=== PATIENT | female | born 1990 | race African-American/Black ===

== ENCOUNTER 2024-06-01 19:03 | Emergency (ER) | payer OTHER, SELFPAY ==
--- NOTE | ~2024-06-01 | CT_ITS ---
EXAMINATION: CT brain wo con DATE: 06/01/2024 22:29 INDICATION: acute headache . TECHNIQUE: Computed tomography (CT) of the head was performed without intravenous contrast. The mA wa s adjusted according to patient size. Iterative reconstruction technique was employed. The dose-lengt h product was 529.67 mGy-cm. COMPARISON: None. FINDINGS: No acute intracranial hemorrhage or extra-axial fluid collection. No hydrocephalus, mass, or herniation. No acute ischemic infarct. Unremarkable dural venous sinus attenuation. No acute osseous abnormality. The aerated spaces are clear. Partially into sella. IMPRESSION: No acute intracranial process. Reviewed, dictated and finalized at location K.
--- NOTE | ~2024-06-01 | US_ITS ---
EXAMINATION: US pelvic complete DATE: 06/01/2024 21:24 INDICATION: vaginal bleeding, confirmed , cramping TECHNIQUE: Multiple transabdominal sonographic images of the pelvis were obtained. Patient declined t ransvaginal imaging. COMPARISON: None. FINDINGS: Uterus: 8.0 x 4.4 x 5.4 cm. Endometrial complex measures 7 mm. Right Ovary: 3.0 x 1.9 x 2.2 cm. Vascular flow is present. No adnexal mass Left Ovary: 2.6 x 0.9 x 1.7 cm. Vascular flow is present. No adnexal mass. There is no free fluid in the pelvis. IMPRESSION: Normal transabdominal pelvic sonogram findings. No intrauterine gestational sac identified. In the setting of a positive test, this represe nts a of unknown location. No sonographic evidence of ectopic . Recommend close clinical and sonographic follow-up as clinically indicated. Reviewed, dictated and finalized at location K. IMPRESSION: Normal transabdominal pelvic sonogram findings. No intrauterine gestational sac identified. In the setting of a positive pregna ncy test, this represents a of unknown location. No sonographic evidence of ectopic . Recommend close clinical and sonographic follow-up as clinically indicated.
[2024-06-01 19:16] VITALS: BP 127/94; PULSE 84; RESP 16; TEMP 36.4; O2SAT 100
[2024-06-01] MEDS: SODIUM CHLORIDE 0.9% IV 1,000 ML 999 ML IV CONT (20:10)
[2024-06-01] MEDS: METOCLOPRAMIDE HCL INJ 10 MG/2 ML VIAL IV PUSH (20:11)
[2024-06-01] MEDS: ONDANSETRON INJ 4 MG/2 ML VIAL IV PUSH (20:11)
[2024-06-01] MEDS: diphenhydrAMINE HCl INJ 50 MG/ML VIAL 25 MG IV PUSH ×2 (20:11→22:38)
[2024-06-01 20:12] LABS: BEDSIDEPREGUCG Positive (Negative)
[2024-06-01 20:16] LABS: Basophils Absolute Auto 0.1 K/mm3 (0.0-0.1); Basophils Percent Auto 0.9 % (0.2-1.2); Eosinophils Absolute Auto 0.4 K/mm3 (0-0.3); Eosinophils Percent Auto 5.6 % (0-4.4); Hematocrit 34.1 % (37.0-47.0); Hemoglobin 10.8 g/dL (12.0-15.0); Immature Granulocyte Absolute 0.03 K/mm3 (0.00-0.031); Immature Granulocyte Percent A 0.5 % (0-0.5); Lymphocytes Absolute Auto 1.59 K/mm3 (0.9-3.2); Mean Corpuscular HGB Conc 31.7 g/dl (32-36); Mean Corpuscular Hemoglobin 24.3 pg (26-34); Mean Corpuscular Volume 76.6 fl (80-100); Mean Platelet Volume 9.3 fl (7.4-10.4); Monocytes Absolute Auto 0.7 K/mm3 (0.1-0.6); Monocytes Percent Auto 10.4 % (2.6-8.5); Neutrophils Absolute Auto 3.9 K/mm3 (1.3-6.7); Neutrophils Percent Auto 58.6 % (45.5-73.1); Platelet Count Result 401 k/mm3 (150-375); Red Blood Count 4.45 M/mm3 (4.2-5.4); Red Cell Distribution Width 18.6 % (11.5-14.5); White Blood Count 6.6 K/mm3 (4.5-10.0)
[2024-06-01 20:24] LABS: Alanine Aminotransferase 9 U/L (6-35); Albumin Level 3.9 g/dL (3.5-5.1); Alkaline Phosphatase 57 U/L (38-126); Anion Gap 6 mmol/L (4-12); Aspartate Amino Transferase 16 U/L (14-36); Bilirubin,Total 0.3 mg/dL (0.2-1.3); Blood Urea Nitrogen 11 mg/dL (7-17); Calcium 9.1 mg/dL (8.4-10.2); Carbon Dioxide 27 mmol/L (22-30); Chloride 104 mmol/L (98-107); Estimated CRCL calculation 105 ml/min; Estimated Glomerular Filt Rate > 60; Glucose 92 mg/dL (65-110); Potassium 3.3 mmol/L (3.4-5.0); Sodium 137 mmol/L (137-145)
[2024-06-01 20:25] LABS: INR 0.9
[2024-06-01 20:26] LABS: Partial Thromboplastin Time 30.5 Seconds (22.3-36.8)
[2024-06-01 20:41] LABS: Beta HCG Quantitative 28.38 mIU/ML
--- NOTE | 2024-06-01 20:51 | ED.HA ---
HPI - Headache General Chief Complaint: Headache Stated Complaint: vaginal bleeding, possible miscarriage, headache Time Seen by Provider: 06/01/24 19:40 History of Present Illness HPI Narrative: Patient is a 34-year-old female presents to the ER with a headache and reports of positive test with abdominal cramping and vaginal bleeding. She reports she has seen her linux kernel developer who did the bedside test and confirmed her . She reports on Thursday she started experiencing abdominal cramping and bleeding. Patient reports she has been taking Advil for the last 24 hours to treat her headache. She reports she has not had any ultrasounds with this . Patient denies any chest pain, shortness a breath, or other signs of illness. Related Data Allergies Allergy/AdvReac Type Severity Reaction Status Date / Time acetaminophen [From Vicodin] Allergy Hives Verified 06/01/24 19:06 amoxicillin [From Augmentin] Allergy Hives Verified 06/01/24 19:05 clavulanic acid Allergy Hives Verified 06/01/24 19:05 [From Augmentin] hydrocodone [From Vicodin] Allergy Hives Verified 06/01/24 19:06 Review of Systems Review of Systems: All systems reviewed & are unremarkable except as noted in HPI and below Exam Narrative: GENERAL: Well appearing, well-nourished, non-toxic, in no acute distress. HEAD: Normocephalic, atraumatic. NECK: Supple. No adenopathy, no masses. RESPIRATORY: Airway patent, respirations nonlabored. Clear to auscultation bilaterally, no rales, rhonchi, wheezing. CARDIOVASCULAR: Regular rate and rhythm without murmurs, rubs, or gallops. Peripheral pulses 2+ and equal bilaterally. ABDOMINAL: Soft, tender in bilateral lower extremities, nondistended, no hepatosplenomegaly. Normoactive BS. MUSCULOSKELETAL: Moves all extremities. Strength/ROM intact without gross deformities. SKIN: Warm, dry, normal color. No rashes. NEURO: A&O X3. Speech clear. Cranial nerves II-XII grossly intact. Steady gait. No ataxic movements. PSYCHIATRIC: Appropriate mood and affect. Normal interaction. Course Vital Signs Vital signs: Vital Signs Temperature 36.4 C 06/01/24 19:16 Pulse Rate 84 06/01/24 19:16 Respiratory Rate 16 06/01/24 19:16 Blood Pressure 127/94 H 06/01/24 19:16 Pulse Oximetry 100 06/01/24 19:16 Oxygen Delivery Room Air 06/01/24 19:16 Temperature 36.4 C 06/01/24 19:16 Pulse Rate 98 06/02/24 01:03 Respiratory Rate 17 06/02/24 01:03 Blood Pressure 114/70 06/02/24 01:03 Pulse Oximetry 100 06/02/24 01:03 Oxygen Delivery Room Air 06/01/24 19:16 MDM - Headache MDM Narrative Medical decision making narrative: Patient is a 34-year-old female presents to the ER with a headache and reports of positive test with abdominal cramping and vaginal bleeding. She reports she has seen her linux kernel developer who did the bedside test and confirmed her . She reports on Thursday she started experiencing abdominal cramping and bleeding. Patient reports she has been taking Advil for the last 24 hours to treat her headache. She reports she has not had any ultrasounds with this . Patient denies any chest pain, shortness a breath, or other signs of illness. Patient's physical exam is unremarkable. 2199-patient's ultrasound revealed normal transabdominal pelvic sonogram findings.No intrauterine gestational sac identified. In the setting of a positive test, this represents a of unknown location. No sonographic evidence of ectopic . Patient made aware of the results. She endorses continuation of a headache. Patient reports the headache pain has lessened mildly but not completely. Will give patient 1 L normal saline IV fluid bolus. Her CBC indicates a hemoglobin of 10.8 and hematocrit of 34.1%. Patient's chemistry indicates a potassium of 3.3. Will replace patient's potassium before she goes home. She al
[2024-06-01] MEDS: KETOROLAC 15 MG/ML VIAL (*BKC) IV PUSH (22:39)
[2024-06-01] MEDS: HYDROmorphone HCL INJ (*CRX) 1 MG/ML SYR 0.5 MG IV PUSH (22:39)
[2024-06-01 22:42] VITALS: BP 126/80; PULSE 88; RESP 16; O2SAT 97
[2024-06-02] MEDS: POTASSIUM CHLORIDE 20 MEQ PACKET (FOR LIQUID) 40 MEQ PO (01:00)
[2024-06-02 01:03] VITALS: BP 114/70; PULSE 98; RESP 17; O2SAT 100
== END 2024-06-02 01:05 | disposition home or self-care (01) ==
PROVIDERS: Emergency Medicine; Emergency Provider Registered Nurse
DX: O03.9 Complete or unspecified spontaneous abortion without complication (principal); R51.9 Headache, unspecified
CPT/HCPCS: 36415; 70450; 76856; 80053; 81025; 84702; 85025; 85461; 85610; 85730; 86850; 86900; 86901; 96361; 96374; 96375; 96376; 99284; A9270; J1170; J1200; J1885; J2405; J2765; J7030

== ENCOUNTER 2024-09-18 10:07 | Emergency (ER) | payer SELFPAY ==
[2024-09-18 10:10] VITALS: BP 118/85; PULSE 100; RESP 20; TEMP 36.4; O2SAT 100
--- NOTE | 2024-09-18 11:04 | PC.NURSE ---
Pt states she is leaving, exits ED in NAD @ 4169.
--- OUTSIDE RECORDS SUMMARY | 2024-09-25 11:38 | XMS_ITS | Clinical Summary ---
Author Organization [facility] Address [address] [place] [address] Care Team Providers Care Applied Mathematician Name Role Phone TheresaAnkita modiron GUZMAN Primary Care Provider [phone] Miller Zamora MD Unavailable [phone] Darryl Starr DO Unavailable Source Comments [facility],non-owned Affiliates and Associated Physician Practices is amultiple site organization consisting of ambulatory clinics and hospital sitesin [place], [place], [place] and [place]. This disclosure is being madepursuant to the Care Everywhere program and may not contain all information available regarding this patient. Last updated 18.[facility] Allergies Active Allergy Reactions Criticality Noted Date Comments Augmentin Urticaria Medium 09/04/2013 Hydrocodone Rash Medium 07/04/2021 Hydrocodone-Acetaminophen Urticaria Medium 02/02/2019 Medications * Be aware that medications may not be up to date on this document. Alwaysverify current medications with the patient. Medication Sig Dispensed Refills Start Date End Date Status ibuprofen (MOTRIN) 600 MG tablet Take 1 tablet by mouth every 6 hours as needed for Pain 30 tablet 03/15/2019 Active triamcinolone acetonide (KENALOG) 0.5 % ointmentIndications: Eczema, unspecified type Apply to affected area 2 times daily as needed 15 g 1 02/21/2021 Active ferrous sulfate 325 (65 FE) MG tablet Take 1 (one) tablet by mouth daily with breakfast 07/04/2021 Active metroNIDAZOLE (FLAGYL) 500 MG tablet Take 1 (one) tablet by mouth 2 times daily 14 tablet 07/22/2021 Active oxyCODONE-acetaminop hen (PERCOCET) 7.5-325 MG tablet Take 1 (one) tablet by mouth every 6 hours as needed for Pain 20 tablet 09/24/2021 Active escitalopram (LEXAPRO) 10 MG tabletIndications:De pression with anxiety Take 1 (one) tablet by mouth once daily 90 tablet 12/24/2021 Active traZODone (DESYREL) 50 MG tabletIndications:De pression with anxiety Take 1 (one) tablet by mouth nightly as needed for Insomnia 30 tablet 12/24/2021 Active Active Problems Problem Noted Date Diagnosed Date Nephrolithiasis 11/24/2020 GBS (group B streptococcus) UTI complicating pre gnancy 08/07/2014 Immunizations Name Administration Dates Next Due INFLUENZA VACCINE, TRIV. (AF LURIA, FLUZONE TRIVALENT; 6MO+) (IIV3) 06/20/2014 HEP A PEDS 2 DOSE 01/24/2009,01/26/2008 MMR 05/19/1997,04/28/1996 POLIO,HISTORIC VACCINE 05/19/1997,04/28/1996 TDAP (7yrs+) 07/04/2014 Family History Medical History Relation Name Comments Hypertension Maternal Grandmother Hypertension Mother Relation Name Status Comments Maternal Grandmother Mother Social History Tobacco Use Types Packs/Day Years Used Date Smoking Tobacco: Former Cigarettes 0.3 6 1 - 06/13/2021 Smokeless Tobacco: Never Comments:vape occasionally Alcohol Use Standard Drinks/Week Comments Yes 0 (1 standard drink = 0.6 oz pur e alcohol) occ AUDIT-C Answer Date Recorded Q1: How often do you have a drink containing alc ohol? Never 09/09/2021 Average Number of Drinks Not on file 022 Frequency of Binge Drinking Not on file 11/2021 PHQ-2 Answer Date Recorded PHQ2 TOTAL SCORE 6 07/04/2021 Sex and Gender Information Value Date Recorded Sex Assigned at Not on file Gender Identity Not on file Sexual Orientation Not on file Last Filed Vital Signs Vital Sign Reading Time Taken Comments Blood Pressure 128/84 09/24/2021 2:07 PM TRIAGE CLINICIAN Pulse 93 09/24/2021 2:07 PM TRIAGE CLINICIAN Temperature 37.2 ??C (98.9 ??F) 09/24/2021 2:[address] Respiratory Rate 18 09/24/2021 2:07 PM TRIAGE CLINICIAN Oxygen Saturation 99% 09/24/2021 2:07 PM TRIAGE CLINICIAN Inhaled Oxygen Concentration 98% 11/25/2020 4 :20 PM CDT Weight 86.2 kg (190 lb) 09/24/2021 2:07 PM TRIAGE CLINICIAN Height 162.6 cm (5' 4 ) 09/24/2021 2:07 PM TRIAGE CLINICIAN Body Mass Index 32.61 09/24/2021 2:07 PM TRIAGE CLINICIAN Plan of Treatment Health Maintenance Due Date Last Done Comments HIV SCREENING 02/17/2007 HEPATITIS C SCREENING 02/13/2010 HEPATITIS B VACCINE (1 of 3 - 19+ 3-dose series) 02/17/2011 PAP SMEAR 07/01/2022 07/01/2021 COVID-19 VACCINE (2 - 2023-2 5 season) 2024 08/13/2021 INFLUENZA VACCINE (#1) 2024 06/20/2014 DTAP/TDAP/TD VACCINES (2 - T d or Tdap) 07/04/2024 07/04/2014 DEPRESSION SCREENING 09/07/2024 02/21/2021 ZOSTER VACCINE (1 of 2) 02/17/2042 HIB VACCINE Aged Out No longer eligi ble based on patient's age to complete this topic HPV VACCINE Aged Out No longer eligi ble based on patient's age to complete this topic MENINGOCOCCAL (Group B) VACCINE Aged Out No longer eligible based on patient's age to complete this topic MENINGOCOCCAL VACCINE Aged Out No serenity naida eligible based on patient's age to complete this topic PNEUMOCOCCAL VACCINE Aged Out No long er eligible based on patient's age to complete this topic Medical Devices Implanted Type Area Harp Regulator Device Identifier Shelf Expiration Date Model / Serial / Lot Stent Uret 6fr 24cm Pgtl Crv Tpr Tip - [id number] Implanted:Qty: 1 on 01/14/2021 by Miller Zamora MD at [facility] Stent Right: Ureter [employer] 09/19/2023 [id number] / [id number] / [id number] Stent Uret 6fr 24cm 2 Drmtr Bldr Loop Implanted:Qty: 1 on 11/25/2020 by Miller Zamora MD at [facility] Right: Ureter [employer] Scimed 01/08/2023 [id number] / / Procedures Procedure Name Priority Date/Time Associated Diagnosis Comments PAP IG LB RFLX HPV APTIMA ASCU Routine 07/01/2021 4:04 PM CDT Well woman exam from Last 3 Months or Most Recently Relevant to Health Maintenance Results * PAP IG LB RFLX HPV APTIMA ASCU (07/01/2021 4:04 PM CDT) Diagnosis [facility] INSURANCE BILL Comment: NEGATIVE FOR INTRAEPITHELIAL LESION OR MALIGNANCY. TRICHOMONAS VAGINALIS IS PRESENT. Specimen Adequacy [facility] INSURANCE BILL Comment: Satisfactory for evaluation. ??Endocervical and/or squamous metaplastic cells (endocervical component) are present. Clinician Provided ICD10 [facility]UR[facility] BILL Comment: Z01.419 N20.0 N76.1 Performed by [facility] INSURANCE BILL Comment:Libby montgomery, Gardening Supervisor (ASCP) Comment . [facility]UR[facility] BILL Note [facility] INSUR[facility] BILL Comment: The Pap smear is a screening test designed to aid in the detection of premalignant and malignant conditions of the uterine cervix. ??It is not a diagnostic procedure and should not be used as the sole means of detecting cervical cancer. ??Both false-positive and false-negative reports do occur. ? . IGLBP CPT Code Automation [facility] INSURANCE BILL Comment: This liquid based ThinPrep(R) pap test was screened with the use of an image guided system. Note [facility] INSURANCE BILL Comment: The HPV DNA reflex criteria were not met with this specimen result therefore, no HPV testing was performed. ? . Pathology/Cytolog y PART OF UTERINE CERVIX / Unknown 07/01/2021 4:04 PM CDT 07/02/2021 Narrative [facility] INSURANCE BILL - 07/03/2021 5:08 PM CDT No. of containers..01 ThinPrep Vial Resulting Agency Comment Lab Testing performed at: [facility] [address] [place] ??[place] [id number] Darryl Starr DO LAB - PATHOLOGY/CYTO LOGY ORDERABLES [facility] INSURANCE BILL [address] [place] [address] from Last 3 Months or Most Recently Relevant to Health Maintenance Advance Directives * Full Code (Latest Code Status on File) Date Activated Date Inactivated Comments 10/20/2015 9:32 AM 10/20/2015 9:32 AM Care Teams Applied Mathematician Relationship Specialty Start Date End Date Citlaly Ramos DO [address] [place] [id number] PCP - General Family Medicine 02/21/21 Miller Zamora MD [address] [address] Urology 02/21/21 Darryl Starr DO [address] [place] [place] [address] Obstetrics and Gynecology 07/04/21
--- OUTSIDE RECORDS SUMMARY | 2024-09-25 11:38 | XMS_ITS | Referral Summary ---
Author Organization [facility] Address [address] [place] [address] Care Team Providers Care Residential Advisor Name Role Phone TheresaAnkita modiron GUZMAN Primary Care Provider [phone] Miller Zamora MD Unavailable [phone] Darryl Starr DO Unavailable Source Comments [facility],non-owned Affiliates and Associated Physician Practices is amultiple site organization consisting of ambulatory clinics and hospital sitesin [place], [place], [place] and [place]. This disclosure is being madepursuant to the Care Everywhere program and may not contain all information available regarding this patient. Last updated 18.[facility] Allergies Active Allergy Reactions Criticality Noted Date [...] 05/19/1997,04/28/1996 POLIO,HISTORIC VACCINE 05/19/1997,04/28/1996 TDAP (7yrs+) 07/04/2014 Social History Tobacco Use Types Packs/Day Years [...] Comments Blood Pressure 128/84 09/24/2021 2:07 PM INVESTMENT OFFICER Pulse 93 09/24/2021 2:07 PM INVESTMENT OFFICER Temperature 37.2 ??C (98.9 ??F) 09/24/2021 2:07 PM CS T Respiratory Rate 18 09/24/2021 2:07 PM INVESTMENT OFFICER Oxygen Saturation 99% 09/24/2021 2:07 PM INVESTMENT OFFICER Inhaled Oxygen Concentration 98% 11/25/2020 4 :20 PM CDT Weight 86.2 kg (190 lb) 09/24/2021 2:07 PM INVESTMENT OFFICER Height 162.6 cm (5' 4 ) 09/24/2021 2:07 PM INVESTMENT OFFICER Body Mass Index 32.61 09/24/2021 2:07 PM INVESTMENT OFFICER Functional Status Functional Status Response Date of Assess ment Is person deaf or have serious hearing difficult y? No 04/03/2014 Is person blind or have serious difficulty seein g? No 04/03/2014 Does person have serious dif ficulty walking/climbing stairs? No 04/03/2014 Does person have difficulty dressing/bathing? No 04/03/2014 Does person have difficulty doing errands alone? No 04/03/2014 Cognitive Status Response Date of Assessm ent Does person have difficulty concentrating/remembering/making decisions? No 04/03/2014 Plan of Treatment Not on file Medical Devices Implanted Type Area Label Paster Device Identifier Shelf Expiration Date Model / Serial / Lot Stent Uret 6fr 24cm Pgtl Crv Tpr Tip - [id number] Implanted:Qty: 1 on 01/14/2021 by Miller Zamora MD at [facility] Stent Right: Ureter [employer]imed 09/19/2023 [id number] / [id number] / [id number] Stent Uret 6fr 24cm 2 Drmtr Bldr Loop Implanted:Qty: 1 on 11/25/2020 by Miller Zamora MD at [facility] Right: Ureter [employer]ed 01/08/2023 [id number] / / Procedures Procedure Name Priority [...] (endocervical component) are present. Clinician Provided ICD10 [facility] INSURANCE BILL Comment: Z01.419 N20.0 N76.1 Performed by [facility] INSURANCE BILL Comment:Libby montgomery, Flight Kitchen Manager (ASCP) Comment . [facility] INSURANCE BILL Note [facility] INSURANCE BILL Comment: The Pap smear is a screening test designed to aid in the detection of premalignant and malignant conditions of the uterine cervix. ??It is not a diagnostic procedure and should not be used as the sole means of detecting cervical cancer. ??Both false-positive and false-negative reports do occur. ? . IGLBP CPT Code Automation [facility] INSURANCE BILL Comment: This liquid based ThinPrep(R) pap test was screened with the use of an image guided system. Note [email or web address] INSURANCE BILL Comment: The HPV DNA reflex criteria were not met with this specimen result therefore, no HPV testing was performed. ? . Pathology/Cytolog y PART OF UTERINE CERVIX / Unknown 07/01/2021 4:04 PM CDT 07/02/2021 Narrative [facility] INSURANCE BILL - 07/03/2021 5:08 PM CDT No. of containers..01 ThinPrep Vial Resulting Agency Comment Lab Testing performed at: [facility] [address] ??[place] [id number] Darryl Starr DO LAB - PATHOLOGY/CYTO LOGY ORDERABLES [facility] INSURANCE BILL [address] [place] [address] from Last 3 Months or Most Recently Relevant to Health Maintenance Advance Directives * Full Code (Latest Code Status on File) Date Activated Date Inactivated Comments 10/20/2015 9:32 AM 10/20/2015 9:32 AM Care Teams Residential Advisor Relationship Specialty Start Date End Date Citlaly Ramos DO [address] [facility] [place] [phone] PCP - General Family Medicine 02/21/21 Miller Zamora MD [address] [place] [phone] Urology 02/21/21 Darryl Starr DO [address] [facility] [place] [phone] Obstetrics and Gynecology 07/04/21
--- OUTSIDE RECORDS SUMMARY | 2024-09-25 11:39 | XMS_ITS | Encounter Summary ---
Author Organization [facility] Address [address] [place] [address] Care Team Providers Care Director Of Business Continuity Name Role Phone Rachel Citlaly GUZMAN Primary Care Provider [phone] Miller Zamora MD Unavailable [phone] Darryl Starr DO Unavailable Reason for Visit * Reason Onset Date Comments MEDICATION REFILL 12/22/2021 Encounter Details Date Type Department Care Team (Late st Contact Info) Description 12/22/2021 Refill [facility] - Family Medicine [address] [place], [place] [id number] Citlaly Ramos DO [address] [facility] [address] [place] [address] MEDICATION REFILL Social History Tobacco Use Types Packs/Day Years [...] on file Sexual Orientation Not on file documented as of this encounter Functional Status Functional Status Response Date of [...] person have difficulty concentrating/remembering/making decisions? No 04/03/2014 documented as of this encounter Plan of Treatment Not on file documented as of this encounter Visit Diagnoses Diagnosis Depression with anxiety Dysthymic disorder documented in this encounter Care Teams Director Of Business Continuity Relationship Specialty Start Date End Date Citlaly Ramos DO [address] [facility] [place] [phone] PCP - General Family Medicine 02/21/21 Miller Zamora MD [address] [place] [phone] Urology 02/21/21 Darryl Starr DO [address] [facility] [place] [id number] Obstetrics and Gynecology 07/04/21 documented as of this encounter
--- OUTSIDE RECORDS SUMMARY | 2024-09-25 11:39 | XMS_ITS | Encounter Summary ---
Author Organization [facility] Address [address] [facility] [place] [address] Care Team Providers Care Roller Printer Name Role Phone Rachel Citlaly GUZMAN Primary Care Provider [phone] Miller Zamora MD Unavailable [phone] Darryl Starr DO Unavailable Reason for Visit * Reason Onset Date Comments MEDICATION REFILL 12/22/2021 Encounter Details Date Type Department Care Team (Late st Contact Info) Description 12/22/2021 Refill [facility] - Family Medicine [address] [place], [place] [id number] Citlaly Ramos DO [address] [facility] [address] [place] [address] MEDICATION REFILL Social History Tobacco [...] disorder documented in this encounter Care Teams Roller Printer Relationship Specialty Start Date End Date Citlaly Ramos DO [address] [facility] [place] [id number] PCP - General Family Medicine 02/21/21 Miller Zamora MD [address] [place] [phone] Urology 02/21/21 Darryl Starr DO [address] [facility] [place] [id number] Obstetrics and Gynecology 07/04/21 documented as of this encounter
--- OUTSIDE RECORDS SUMMARY | 2024-09-25 11:39 | XMS_ITS | Patient Health Summary ---
Author Organization [facility] Address [address] [place] [address] Care Team Providers Care [employer] Ii Assembler Name Role Phone TheresaAnkita modiron GUZMAN Primary Care Provider [phone] Miller Zamora MD Unavailable [phone] Darryl Starr DO Unavailable Note from [facility],non-owned Affiliates and Associated Physician Practices is amultiple site organization consisting of ambulatory clinics and hospital sitesin [place], [place], [place] and [place]. This disclosure is being madepursuant to the Care Everywhere program and may not contain all information available regarding this patient. Last updated 18.[facility] Allergies * Augmentin(Urticaria) -Medium Criticality * Hydrocodone(Rash) -Medium Criticality * Hydrocodone-Acetaminophen(Urticaria) -Medium Criticality Medications * Be aware that medications may not be up to date on this document. Alwaysverify current medications with the patient. * ibuprofen (MOTRIN) 600 MG tablet(Started 03/15/2019) Take 1 tablet by mouth every 6 hours as needed for Pain * triamcinolone acetonide (KENALOG) 0.5 % ointment(Started 02/21/2021) Apply to affected area 2 times daily as needed 1 refill by 02/21/2022 * ferrous sulfate 325 (65 FE) MG tablet(Started 07/04/2021) Take 1 (one) tablet by mouth daily with breakfast * metroNIDAZOLE (FLAGYL) 500 MG tablet(Started 07/22/2021) Take 1 (one) tablet by mouth 2 times daily * oxyCODONE-acetaminophen (PERCOCET) 7.5-325 MG tablet(Started 09/24/2021) Take 1 (one) tablet by mouth every 6 hours as needed for Pain * escitalopram (LEXAPRO) 10 MG tablet(Started 12/24/2021) Take 1 (one) tablet by mouth once daily * traZODone (DESYREL) 50 MG tablet(Started 12/24/2021) Take 1 (one) tablet by mouth nightly as needed for Insomnia Active Problems Problem Noted Date Diagnosed Date Nephrolithiasis 11/24/2020 GBS (group B streptococcus) UTI complicating pre gnancy 08/07/2014 Immunizations * INFLUENZA VACCINE, TRIV. (AFLURIA, FLUZONE TRIVALENT; 6MO+) (IIV3)(Given 06/20/2014) * HEP A PEDS 2 DOSE(Given 01/24/2009, 01/26/2008) * MMR(Given 05/19/1997, 04/28/1996) * POLIO,HISTORIC VACCINE(Given 05/19/1997, 04/28/1996) * TDAP (7yrs+)(Given 07/04/2014) Social History Tobacco Use Types Packs/Day Years [...] Comments Blood Pressure 128/84 09/24/2021 2:07 PM TRUCK GREASER Pulse 93 09/24/2021 2:07 PM TRUCK GREASER Temperature 37.2 ??C (98.9 ??F) 09/24/2021 2:07 PM CS T Respiratory Rate 18 09/24/2021 2:07 PM TRUCK GREASER Oxygen Saturation 99% 09/24/2021 2:07 PM TRUCK GREASER Inhaled Oxygen Concentration 98% 11/25/2020 4 :20 PM CDT Weight 86.2 kg (190 lb) 09/24/2021 2:07 PM TRUCK GREASER Height 162.6 cm (5' 4 ) 09/24/2021 2:07 PM TRUCK GREASER Body Mass Index 32.61 09/24/2021 2:07 PM TRUCK GREASER Medical Devices Implanted Type Area Four Slide Machine Setter Device Identifier Shelf Expiration Date Model / Serial / Lot Stent Uret 6fr 24cm Pgtl Crv Tpr Tip - [id number] Implanted:Qty: 1 on 01/14/2021 by Miller Zamora MD at [facility] Stent Right: [employer] 09/19/2023 [id number] / [id number] / [id number] Stent Uret 6fr 24cm 2 Drmtr Bldr Loop Implanted:Qty: 1 on 11/25/2020 by Miller Zamora MD at [facility] Right: [employer] 01/08/2023 [id number] / / Procedures * US RETROPERITONEAL COMPLETE(Performed 09/24/2021) Performed for Right flank pain * HCG URINE QUAL POCT NOTIFICATION(Performed 09/24/2021) * URINE MICROSCOPIC ONLY REFLEX TO CULTURE(Performed 09/24/2021) * URINALYSIS REFLEX MICROSCOPIC REFLEX CULTURE(Performed 09/24/2021) * CULTURE URINE(Performed 09/24/2021) * HCG URINE QUALITATIVE - POCT (IP) INTERFACED(Performed 09/24/2021) * COMPREHENSIVE METABOLIC PANEL(Performed 09/24/2021) * CBC W AUTO DIFFERENTIAL(Performed 09/24/2021) * CHLAMYDIA + GC + TRICH DNA AMPL(Performed 08/08/2021) Performed for Trichomonas infection * CHLAMYDIA + GC + TRICH DNA AMPL(Performed 07/19/2021) Performed for Hx of trichomoniasis * QUANTIFERON TB-GOLD(Performed 07/19/2021) * PAP IG LB RFLX HPV APTIMA ASCU(Performed 07/01/2021) Performed for Well woman exam * VAGINITIS PLUS (BV CA CT NG TRICH)(Performed 07/01/2021) Performed for Subacute vaginitis * VITAMIN B12 FOLATE PANEL(Performed 07/01/2021) Performed for Anemia, unspecified type * IRON + TIBC PANEL(Performed 07/01/2021) Performed for Anemia, unspecified type * FERRITIN(Performed 07/01/2021) Performed for Anemia, unspecified type * VITAMIN D 25-HYDROXY(Performed 02/21/2021) Performed for Well adult exam * LIPID PROFILE REFLEX LDL DIRECT(Performed 02/21/2021) Performed for Well adult exam * TSH(Performed 02/21/2021) Performed for Well adult exam * COMPREHENSIVE METABOLIC PANEL(Performed 02/21/2021) Performed for Well adult exam * CBC W AUTO DIFFERENTIAL(Performed 02/21/2021) Performed for Well adult exam * PATHOLOGY TISSUE(Performed 01/14/2021) Performed for Right nephrolithiasis * STONE ANALYSIS QUANT(Performed 01/14/2021) Performed for Nephrolithiasis * NV CYSTO/URETERO/PYELOSCOPY W/LITHOTRIPSY(Performed 01/14/2021) Performed for Right nephrolithiasis * LARYNGEAL MASK AIRWAY(Performed 01/14/2021) * HCG URINE QUALITATIVE - POCT (IP) INTERFACED(Performed 01/14/2021) * HCG URINE QUAL POCT NOTIFICATION(Performed 01/14/2021) Performed for Preop examination * URINALYSIS NO MICROSCOPIC NO CULTURE(Performed 01/14/2021) Performed for Preop examination * SARS-COV-2 (COVID-19) IN HOUSE(Performed 01/12/2021) Performed for Nephrolithiasis, Pre-op testing * URINALYSIS NO MICROSCOPIC NO CULTURE(Performed 12/31/2020) Performed for Dysuria * CBC W/O DIFFERENTIAL(Performed 12/31/2020) Performed for Pre-op evaluation * BASIC METABOLIC PANEL (CALCIUM TOTAL)(Performed 12/31/2020) Performed for Pre-op evaluation * CULTURE URINE(Performed 12/31/2020) Performed for Dysuria * URINALYSIS W/MICROSCOPIC NO CULTURE(Performed 12/28/2020) * CULTURE URINE(Performed 12/28/2020) * FL CYSTO SURGERY(Performed 11/26/2020) Performed for Nephrolithiasis * CBC W AUTO DIFFERENTIAL(Performed 11/26/2020) Performed for Nephrolithiasis * BASIC METABOLIC PANEL (CALCIUM TOTAL)(Performed 11/26/2020) Performed for Nephrolithiasis * LARYNGEAL MASK AIRWAY(Performed 11/25/2020) * NV CYSTOURETHROSCOPY,URETER CATHETER(Performed 11/25/2020) Performed for Hematuria, unspecified type * CBC W AUTO DIFFERENTIAL(Performed 11/25/2020) Performed for Nephrolithiasis * BASIC METABOLIC PANEL (CALCIUM TOTAL)(Performed 11/25/2020) Performed for Nephrolithiasis * COMPREHENSIVE METABOLIC PANEL(Performed 11/24/2020) * CBC W AUTO DIFFERENTIAL(Performed 11/24/2020) * SARS-COV-2 (COVID-19)+INFLU A+B PCR RAPID(Performed 11/24/2020) * URINALYSIS W/MICROSCOPIC NO CULTURE(Performed 11/24/2020) * HCG URINE QUALITATIVE(Performed 11/24/2020) * CULTURE URINE(Performed 11/24/2020) * D-DIMER(Performed 03/15/2019) * CARDIAC EKG ORDER(Performed 02/03/2019) * CT ANGIO CHEST PULM EMBOLISM(Performed 02/02/2019) Performed for Other chest pain, Elevated d-dimer * D-DIMER(Performed 02/02/2019) * TROPONIN I(Performed 02/02/2019) * URINE MICROSCOPIC ONLY REFLEX TO CULTURE(Performed 02/02/2019) * URINALYSIS REFLEX MICROSCOPIC REFLEX CULTURE(Performed 02/02/2019) * CULTURE URINE(Performed 02/02/2019) * HCG URINE QUALITATIVE - POCT (IP) INTERFACED(Performed 02/02/2019) * HCG URINE QUAL POCT NOTIFICATION(Performed 02/02/2019) * XR CHEST 2VW(Performed 02/02/2019) Performed for Other chest pain * COMPREHENSIVE METABOLIC PANEL(Performed 02/02/2019) * CBC W AUTO DIFFERENTIAL(Performed 02/02/2019) * TROPONIN I(Performed 02/02/2019) * EKG 12-LEAD(Performed 02/02/2019) Performed for Other chest pain * URINE MICROSCOPIC ONLY(Performed 12/29/2017) * URINALYSIS REFLEX TO MICROSCOPIC NO CULTURE(Performed 12/29/2017) * CT ABDOMEN PELVIS W CONTRAST(Performed 12/29/2017) Performed for Abdominal pain, right upper quadrant * HCG BETA BLOOD QUANTITATIVE(Performed 12/29/2017) * COMPREHENSIVE METABOLIC PANEL(Performed 12/29/2017) * CBC W AUTO DIFFERENTIAL(Performed 12/29/2017) * HCG URINE QUALITATIVE - POINT OF CARE(Performed 11/27/2017) * URINE MICROSCOPIC ONLY REFLEX TO CULTURE(Performed 11/27/2017) * URINALYSIS REFLEX MICROSCOPIC REFLEX CULTURE(Performed 11/27/2017) * CULTURE URINE(Performed 11/27/2017) * COMPREHENSIVE METABOLIC PANEL(Performed 11/27/2017) * CBC W AUTO DIFFERENTIAL(Performed 11/27/2017) * HCG BETA BLOOD QUANTITATIVE(Performed 02/24/2017) * COMPREHENSIVE METABOLIC PANEL(Performed 02/24/2017) * CBC W AUTO DIFFERENTIAL(Performed 02/24/2017) * XR ABDOMEN KUB(Performed 12/15/2016) Performed for Abdominal pain, lower * CHLAMYDIA + GC AMPLIFIED PROBE(Performed 12/15/2016) * TRICHOMONAS RAPID TEST(Performed 12/15/2016) * HCG URINE QUALITATIVE(Performed 12/15/2016) * URINE MICROSCOPIC ONLY REFLEX TO CULTURE(Performed 12/15/2016) * URINALYSIS REFLEX MICROSCOPIC REFLEX CULTURE(Performed 12/15/2016) * COMPREHENSIVE METABOLIC PANEL(Performed 12/15/2016) * CBC W AUTO DIFFERENTIAL(Performed 12/15/2016) * URINE MICROSCOPIC ONLY REFLEX TO CULTURE(Performed 10/23/2016) * URINALYSIS REFLEX MICROSCOPIC REFLEX CULTURE(Performed 10/23/2016) * CULTURE URINE(Performed 10/23/2016) * HCG URINE QUALITATIVE - POINT OF CARE(Performed 10/23/2016) * COMPREHENSIVE METABOLIC PANEL(Performed 10/23/2016) * CBC W AUTO DIFFERENTIAL(Performed 10/23/2016) * CT ABDOMEN PELVIS WO CONTRAST(Performed 10/10/2016) Performed for Hematuria * HCG URINE QUALITATIVE - POINT OF CARE(Performed 10/10/2016) * URINE MICROSCOPIC ONLY REFLEX TO CULTURE(Performed 10/10/2016) * URINALYSIS REFLEX MICROSCOPIC REFLEX CULTURE(Performed 10/10/2016) * CULTURE URINE(Performed 10/10/2016) * COMPREHENSIVE METABOLIC PANEL(Performed 10/10/2016) * CBC W AUTO DIFFERENTIAL(Performed 10/10/2016) * URINE MICROSCOPIC ONLY REFLEX TO CULTURE(Performed 10/03/2016) * URINALYSIS REFLEX MICROSCOPIC REFLEX CULTURE(Performed 10/03/2016) * HCG URINE QUALITATIVE - POINT OF CARE(Performed 09/28/2016) * URINALYSIS REFLEX MICROSCOPIC REFLEX CULTURE(Performed 09/28/2016) * CULTURE URINE(Performed 09/28/2016) * TRICHOMONAS RAPID TEST(Performed 05/01/2016) * CHLAMYDIA + GC AMPLIFIED PROBE(Performed 05/01/2016) * US PELVIS W TRANSVAG W DOP NON OB(Performed 05/01/2016) Performed for Pelvic pain in female, Complication of intrauterine device (IUD), unspecified complication, initial encounter (HCC) * COMPREHENSIVE METABOLIC PANEL(Performed 05/01/2016) * CBC W AUTO DIFFERENTIAL(Performed 05/01/2016) * HCG URINE QUALITATIVE - POINT OF CARE(Performed 04/30/2016) * URINALYSIS REFLEX MICROSCOPIC REFLEX CULTURE(Performed 04/30/2016) * BASIC METABOLIC PANEL (CALCIUM TOTAL)(Performed 04/30/2016) * CBC W AUTO DIFFERENTIAL(Performed 04/30/2016) * TRICHOMONAS RAPID TEST(Performed 03/18/2016) * CHLAMYDIA + GC AMPLIFIED PROBE(Performed 03/18/2016) * CT ABDOMEN PELVIS WO CONTRAST(Performed 03/18/2016) Performed for Flank pain * HCG URINE QUALITATIVE - POINT OF CARE(Performed 03/18/2016) * HCG URINE QUALITATIVE - POINT OF CARE(Performed 03/18/2016) * URINALYSIS REFLEX MICROSCOPIC REFLEX CULTURE(Performed 03/18/2016) * CULTURE URINE(Performed 03/18/2016) * COMPREHENSIVE METABOLIC PANEL(Performed 03/18/2016) * CBC W AUTO DIFFERENTIAL(Performed 03/18/2016) * CARDIAC EKG ORDER(Performed 03/12/2016) * HCG URINE QUALITATIVE - POINT OF CARE(Performed 03/08/2016) * EKG 12-LEAD(Performed 03/08/2016) Performed for Dizziness * URINALYSIS REFLEX MICROSCOPIC REFLEX CULTURE(Performed 03/08/2016) * CULTURE URINE(Performed 03/08/2016) * COMPREHENSIVE METABOLIC PANEL(Performed 03/08/2016) * NT-PRO BNP(Performed 03/08/2016) * CBC W AUTO DIFFERENTIAL(Performed 03/08/2016) * HCG URINE QUALITATIVE - POINT OF CARE(Performed 10/30/2015) * URINE MICROSCOPIC ONLY REFLEX TO CULTURE(Performed 10/30/2015) * URINALYSIS REFLEX MICROSCOPIC REFLEX CULTURE(Performed 10/30/2015) * COMPREHENSIVE METABOLIC PANEL(Performed 10/30/2015) * CBC W AUTO DIFFERENTIAL(Performed 10/30/2015) * CULTURE URINE(Performed 10/30/2015) * CT ABDOMEN PELVIS WO CONTRAST(Performed 10/20/2015) * HCG URINE QUALITATIVE - POINT OF CARE(Performed 10/20/2015) * URINE MICROSCOPIC ONLY REFLEX TO CULTURE(Performed 10/20/2015) * URINALYSIS REFLEX MICROSCOPIC REFLEX CULTURE(Performed 10/20/2015) * CULTURE URINE(Performed 10/20/2015) * CT ABDOMEN PELVIS W CONTRAST(Performed 10/11/2015) Performed for Abdominal pain, generalized * HCG URINE QUALITATIVE - POINT OF CARE(Performed 10/11/2015) * URINALYSIS REFLEX MICROSCOPIC REFLEX CULTURE(Performed 10/11/2015) * CULTURE URINE(Performed 10/11/2015) * HCG BETA BLOOD QUANTITATIVE(Performed 10/11/2015) * LIPASE BLOOD(Performed 10/11/2015) * COMPREHENSIVE METABOLIC PANEL(Performed 10/11/2015) * CBC W AUTO DIFFERENTIAL(Performed 10/11/2015) * TRICHOMONAS RAPID TEST(Performed 09/30/2015) * CHLAMYDIA + GC AMPLIFIED PROBE(Performed 09/30/2015) * HCG URINE QUALITATIVE - POINT OF CARE(Performed 09/30/2015) * URINALYSIS REFLEX MICROSCOPIC REFLEX CULTURE(Performed 09/30/2015) * CULTURE URINE(Performed 09/30/2015) * BASIC METABOLIC PANEL (CALCIUM TOTAL)(Performed 04/21/2015) * CBC W AUTO DIFFERENTIAL(Performed 04/21/2015) * EKG 12-LEAD(Performed 04/21/2015) Performed for Dizziness * HCG URINE QUALITATIVE - POINT OF CARE(Performed 04/21/2015) * URINALYSIS REFLEX MICROSCOPIC REFLEX CULTURE(Performed 04/21/2015) * XR KNEE RIGHT 4VW OR MORE(Performed 04/17/2015) * CULTURE STREP GROUP A(Performed 04/13/2015) * STREP A SCREEN DIRECT W RFLX STREP A CULTURE(Performed 04/13/2015) * HCG URINE QUALITATIVE - POINT OF CARE(Performed 02/11/2015) * URINALYSIS REFLEX MICROSCOPIC REFLEX CULTURE(Performed 02/11/2015) * CULTURE URINE(Performed 02/11/2015) * COMPREHENSIVE METABOLIC PANEL(Performed 02/11/2015) * CBC W AUTO DIFFERENTIAL(Performed 02/11/2015) * XR CHEST 2VW(Performed 01/04/2015) Performed for Cough * PATIENT EDUCATION RESPIRATORY THERAPY(Performed 01/04/2015) * HCG URINE QUALITATIVE - POINT OF CARE(Performed 01/04/2015) * URINALYSIS REFLEX MICROSCOPIC REFLEX CULTURE(Performed 01/04/2015) * CULTURE URINE(Performed 01/04/2015) * HCG URINE QUALITATIVE - POINT OF CARE(Performed 11/04/2014) * MONONUCLEOSIS SCREEN(Performed 11/04/2014) * BASIC METABOLIC PANEL (CALCIUM TOTAL)(Performed 11/04/2014) * CBC W AUTO DIFFERENTIAL(Performed 11/04/2014) * STREP A SCREEN DIRECT W RFLX STREP A CULTURE(Performed 11/04/2014) * URINE MICROSCOPIC ONLY REFLEX TO CULTURE(Performed 04/15/2014) Performed for Threatened labor (HCC) * URINALYSIS REFLEX MICROSCOPIC REFLEX CULTURE(Performed 04/15/2014) Performed for Threatened labor (HCC) * CULTURE URINE(Performed 04/15/2014) Performed for Threatened labor (HCC) * GLUCOSE PROTEIN KETONE URINE - POINT OF CAR(Performed 04/15/2014) Performed for Threatened labor ([facility]) * GLUCOSE - POINT OF CARE(Performed 04/03/2014) * URINALYSIS REFLEX MICROSCOPIC REFLEX CULTURE(Performed 04/03/2014) Performed for Supervision of normal , second trimester * CULTURE URINE(Performed 04/03/2014) Performed for Supervision of normal , second trimester * GLUCOSE PROTEIN KETONE URINE - POINT OF CAR(Performed 04/03/2014) Performed for Supervision of normal , second trimester * LAB HISTORICAL RESULTS-ONBASE(Performed 04/03/2014) * TRICHOMONAS RAPID TEST(Performed 03/07/2014) * CHLAMYDIA + GC AMPLIFIED PROBE(Performed 03/07/2014) * URINALYSIS REFLEX MICROSCOPIC REFLEX CULTURE(Performed 03/07/2014) * CULTURE URINE(Performed 03/07/2014) * BLOOD TYPE ABO+ RH PANEL(Performed 03/07/2014) * HCG BETA BLOOD QUANTITATIVE(Performed 03/07/2014) * CBC W AUTO DIFFERENTIAL(Performed 03/07/2014) * US OB LESS 14 WKS W TRANSV W DOPP(Performed 01/10/2014) * HCG URINE QUALITATIVE - POINT OF CARE(Performed 01/10/2014) * COMPREHENSIVE METABOLIC PANEL(Performed 01/10/2014) * CBC W AUTO DIFFERENTIAL(Performed 01/10/2014) * URINALYSIS REFLEX MICROSCOPIC REFLEX CULTURE(Performed 01/10/2014) * HCG BETA BLOOD QUANTITATIVE(Performed 01/10/2014) * CHLAMYDIA + GC AMPLIFIED PROBE(Performed 09/04/2013) * URINALYSIS REFLEX MICROSCOPIC REFLEX CULTURE(Performed 09/04/2013) * HCG URINE QUALITATIVE - POINT OF CARE(Performed 09/04/2013) * NV CYSTOURETHROSCOPY,URETER CATHETER Performed for Disorder Results * US KIDNEYS/BLADDER (RETROPERITONEAL COMPLETE) (09/24/2021 4:21 PM TRUCK GREASER) Anatomical Region Laterality Modality Abdomen Ultrasound 09/24/2021 4:34 PM TRUCK GREASER Narrative 09/24/2021 4:57 PM TRUCK GREASER RENAL ULTRASOUND HISTORY: Horseshoe kidney and right lower quadrant pain. As noted on CT scan of 12/29/2017, there is a horseshoe type kidney measuring 14 cm in greatest measurable dimension. There is persistent hydronephrosis of the right moiety and a stone is again identified in the right renal pelvis. No definite left obstructive change is seen. Renal cortical echotexture is normal. Stones are present within the bladder. 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 Stones are present in the bladder. Follow-up nonemergent CT scan could be obtained as clinically indicated. Edited by Aleah Ramos on 09/24/2021 4:40 PM *Reading Radiologist: Ja Jimenez on 09/24/2021 at 4:57 PM Procedure Note Ja Jimenez MD - 09/24/2021 RENAL ULTRASOUND HISTORY: Horseshoe kidney and right lower quadrant pain. As noted on CT scan of 12/29/2017, there is a horseshoe type kidney measuring 14 cm in greatest measurable dimension. There is persistent hydronephrosis of the right moiety and a stone is again identified in the right renal pelvis. No definite left obstructive change is seen. Renal cortical echotexture is normal. Stones are present within the bladder. 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 Stones are present in the bladder. Follow-up nonemergent CT scan could be obtained as clinically indicated. Edited by Aleah Ramos on 09/24/2021 4:40 PM *Reading Radiologist: Ja Jimenez on 09/24/2021 at 4:57 PM Nancy Fajardo MD US ORDERABLES * HCG URINE QUAL POCT NOTIFICATION (09/24/2021 4:00 PM TR[facility]ER) Only the most recent of3 resultswithin the time period is included. Comment Notification Label Only - See Separate Report 09/24/2021 4:00 PM [facility] Urine URINE / Unknown 2:44 PM TRUCK [facility]ER Nancy Fajardo MD LAB - URINALYSIS ORD ERABLES Performing Organization Address City/[facility]/ZIP Co de Phone Number [facility] [address] [place] [id number] * (ABNORMAL) URINE MICROSCOPIC ONLY REFLEX TO CULTURE (09/24/2021 3:02 PM TR[facility] GRE[facility]ER) Only the most recent of10 resultswithin the time period is included. Reflex Status Culture to follow 09/24/2021 3:11 PM TR[facility] RBC UA >100(A) None Seen, 0-2, 3-5 # /hpf 09/24/2021 3:11 PM [facility] WBC UA >100(A) None Seen, 0-5 # /hpf 09/24/2021 3:11 PM [employer] Bacteria UA Trace(A) None Seen 09/24/2021 3:11 PM [employer] [employer]ER [facility] Squamous Epithelial Cells 6-10(A) None Seen, 0-2, 3-5 /hpf 09/24/2021 3:11 PM TR[employer] Mucus UA 2+ /LPF 09/24/2021 3:11 PM [employer] Urine URINE SPECIMEN OBTAINED BY CLEAN CATCH PROCEDURE / Unknown Collection / Unknown 09/24/2021 3:02 PM TRUCK GRE[employer]ER 09/24/2021 3:06 PM TR[facility] [employer]ER Narrative [facility] - 09/24/2021 3:11 PM TR[employer]ER Nancy Fajardo MD LAB - URINALYSIS ORD ERABLES Performing Organization Address City/[facility]/ZIP Co de Phone Number [facility] [address] [place] [phone] * (ABNORMAL) URINALYSIS REFLEX MICROSCOPIC REFLEX CULTURE (09/24/2021 3:02 PM TRUCK GRE[employer]ER) Only the most recent of23 resultswithin the time period is included. Color UA Yellow Straw, Yellow 09/24/2021 3:10 PM [facility]ER [facility] Clarity UA Cloudy(A) Clear 09/24/2021 3:10 PM [employer] [employer] Glucose UA Negative Negative 09/24/2021 3:10 PM [employer] [employer]ER [facility] Bilirubin UA Negative Negative 09/24/2021 3:10 PM TR[facility] [employer]ER [facility] Ketone UA Negative Negative 09/24/2021 3:10 PM TR[employer]ER [facility] Specific [place] UA 1.020 1.005 - 1.030 09/24/2021 3:10 PM [employer] Blood UA 3+(A) Negative 09/24/2021 3:10 PM [facility] pH UA 6.0 5.0 - 8.0 pH 09/24/2021 3:10 PM TR[facility] [employer]ER [facility] Protein UA 2+(A) Negative 09/24/2021 3:10 PM [facility] Urobilinogen UA Negative Negative mg/dL 09/24/2021 3:10 PM [employer] [employer] Nitrite UA Negative Negative 09/24/2021 3:10 PM [employer] Leukocyte UA 3+(A) Negative 09/24/2021 3:10 PM [facility] Urine Microscopy Urine microscopy to follow 09/24/2021 3:10 PM [facility] Reflex Status Culture to follow 09/24/2021 3:10 PM [facility] Urine URINE SPECIMEN OBTAINED BY CLEAN CATCH PROCEDURE / Unknown Collection / Unknown 09/24/2021 3:02 PM TR[employer]ER 09/24/2021 3:06 PM TRUCK GRE[employer]ER Narrative [facility] - 09/24/2021 3:10 PM TRUCK [employer]ER Nancy Fajardo MD LAB - URINALYSIS ORD ERABLES [facility] [address] [place] [address] * CULTURE URINE (09/24/2021 3:02 PM TRUCK GRE[employer]ER) Only the most recent of20 resultswithin the time period is included. Culture Urine >100,000 CFU/mL urogenital marco CHRYSTAL 09/26/2021 10:26 AM TR[facility]ER [facility] Urine URINE SPECIMEN OBTAINED BY CLEAN CATCH PROCEDURE / Unknown Collection / Unknown 09/24/2021 3:02 PM TRUCK GRE[employer]ER 09/24/2021 3:06 PM TR[employer]ER Nancy Fajardo MD LAB - MICROBIOLOGY O RDERABLES Performing Organization Address City/[facility]/ZIP Co de Phone Number [facility] [address] [phone] * HCG URINE QUALITATIVE - POCT (IP) INTERFACED (09/24/2021 3:01 PM TRUCK GREASER) Only the most recent of3 resultswithin the time period is included. Pathologist [facility] HCG Qual Urine Negative Negative 09/24/2021 3:07 PM TRUCK GRE[employer]ER [facility] Urine URINE / Unknown 09/24/2021 3 :01 PM TRUCK GRE[employer]ER 09/24/2021 3:07 PM TRUCK GRE[employer]ER Nancy Fajardo MD LAB - POINT OF CARE ORDERABLES Performing Organization Address City/[facility]/ZIP Co de Phone Number [facility] [address] [place] [address] * (ABNORMAL) CBC W AUTO DIFFERENTIAL (09/24/2021 3:01 PM TRUCK GREASER) Only the most recent of23 resultswithin the time period is included. WBC 7.4 4.4 - 10.7 x10E9/L 09/24/2021 3:08 PM [employer] GRE[employer]ER [facility] WBC Corrected 09/24/2021 3:08 PM [employer]UCK GREASER [facility] RBC 4.37 3.80 - 5.20 x10E12/L 09/24/2021 3:08 PM [facility] Hemoglobin 10.7(L) 12.0 - 15.6 gm/dL 09/24/2021 3:08 PM [facility] Hematocrit 34.3(L) 35.9 - 45.5 % 09/24/2021 3:08 PM [employer] GRE[employer] MCV 78.5(L) 80.7 - 98.3 fl 09/24/2021 3:08 PM [facility] MCH 24.5(L) 26.7 - 34.0 pg 09/24/2021 3:08 PM [facility] MCHC 31.2 30.8 - 35.9 gm/dL 09/24/2021 3:08 PM [facility] Platelet Count 436(H) 153 - 416 x10E9/L 09/24/2021 3:08 PM [facility] RDW-CV 18.2(H) 12.1 - 14.9 % 09/24/2021 3:08 PM [facility] MPV 9.2(L) 9.4 - 12.9 fl 09/24/2021 3:08 PM [facility] Neutrophils % 55.3 44.0 - 73.0 % 09/24/2021 3:08 PM [facility] Lymphocytes % 25.5 20.0 - 43.0 % 09/24/2021 3:08 PM [facility] Monocytes % 10.3 5.0 - 13.0 % 09/24/2021 3:08 PM [facility] Eosinophils % 7.6(H) 0.0 - 6.0 % 09/24/2021 3:08 PM [facility] [facility] Basophils % 0.9 0.0 - 2.0 % 09/24/2021 3:08 PM [facility] Immature Granulocytes 0.4 0 - 1 % 09/24/2021 3:08 PM [facility] Neutrophil Absolute 4.08 2.01 - 7.14 x10E9/L 09/24/2021 3:08 PM [facility] Lymphocytes Absolute 1.88 1.07 - 3.94 x10E9/L 09/24/2021 3:08 PM [facility] Monocytes Absolute 0.76 0.26 - 1.07 x10E9/L 09/24/2021 3:08 PM [facility] Eosinophils Absolute 0.56(H) 0 - 0.47 x10E9/L 09/24/2021 3:08 PM [facility] Basophils Absolute 0.07 0 - 0.08 x10E9/L 09/24/2021 3:08 PM [facility] Immature Granulocytes Absolute 0.03 0.00 - 0.06 x10E9/L 09/24/2021 3:08 PM [facility] nRBC Auto 0 /100 WBC 09/24/2021 3:08 PM [facility] Blood BLOOD SPECIMEN / Unknown Venipuncture / Unknown 09/24/2021 3:01 PM [facility] 09/24/2021 3:06 PM [facility] Nancy Fajardo MD LAB - HEMATOLOGY ORD ERABLES [facility] [address] [place], [place] [id number] * (ABNORMAL) COMPREHENSIVE METABOLIC PANEL (09/24/2021 3:01 PM [facility]) Only the most recent of17 resultswithin the time period is included. Glucose 84 70 - 105 mg/dL 09/24/2021 3:23 PM [facility] Sodium 137 136 - 145 mmol/L 09/24/2021 3:23 PM [facility] Potassium 3.7 3.5 - 5.1 mmol/L 09/24/2021 3:23 PM [facility] Chloride 107 98 - 107 mmol/L 09/24/2021 3:23 PM [facility] CO2 24 23 - 31 mmol/L 09/24/2021 3:23 PM [facility] Calcium 9.3 8.4 - 10.4 mg/dL 09/24/2021 3:23 PM [facility] Anion Gap 6(L) 8 - 18 mmol/L 09/24/2021 3:23 PM [facility] BUN 12 7 - 18.7 mg/dL 09/24/2021 3:23 PM [facility] Creatinine 0.64 0.57 - 1.11 mg/dL 09/24/2021 3:23 PM [facility] Alkaline Phosphatase 58 40 - 150 U/L 09/24/2021 3:23 PM [facility] ALT 13 0 - 61 U/L 09/24/2021 3:23 PM [facility] AST 16 5 - 34 U/L 09/24/2021 3:23 PM [facility] Protein Total 7.2 6.4 - 8.3 gm/dL 09/24/2021 3:23 PM [facility] Albumin 4.1 3.5 - 5.2 gm/dL 09/24/2021 3:23 PM [facility] Bilirubin Total 0.3 0.2 - 1.2 mg/dL 09/24/2021 3:23 PM [facility] eGFR by MDRD >60 >60 mL/min/1.7 3m2 09/24/2021 3:23 PM [facility] eGFR by MDRD >60 >60 mL/min/1.7 3m2 09/24/2021 3:23 PM [facility] Blood BLOOD SPECIMEN / Unknown Venipuncture / Unknown 09/24/2021 3:01 PM [facility] 09/24/2021 3:06 PM [facility] Nancy Fajardo MD LAB - CHEMISTRY JOANNA YUNG [facility] [address] [place] [address] * CHLAMYDIA + GC + TRICH DNA AMPL (08/08/2021 1:34 PM [facility]) Only the most recent of2 resultswithin the time period is included. Pathologist [facility] Chlamydia trachomatis JOSHUA Negative Negative [facility] INSURANCE BILL GC DNA Probe Negative Negative [facility] INSURANCE BILL Trichomonas vaginalis by JOSHUA Negative Negative [facility] INSURANCE BILL Microbiology URINE / Unknown 08/08/2021 1 :34 PM [facility] 08/08/2021 Narrative Resulting Agency Comment Lab Testing performed at: [address] ??[facility] [phone] Libby SAHU LAB - MICROBI OLOGY ORDERABLES [facility] INSURANCE BILL [address] [place] [address] * QUANTIFERON TB-GOLD (07/19/2021 10:43 AM [facility]) Pathologist [facility] QuantiFERON Incubation Incubation performed. [facility] INSURANCE BILL QuantiFERON Criteria [facility] INSURANCE BILL Comment: The QuantiFERON-TB Gold Plus result is determined by subtracting the Nil value from either TB antigen (Ag) tube. The mitogen tube serves as a control for the test. QuantiFERON TB1 Ag Value 0.11 IU/mL [facility] INSURANCE BILL QuantiFERON TB2 Ag Value 0.11 IU/mL [facility] INSURANCE BILL QuantiFERON Nil Value 0.11 IU/mL [facility] INSURANCE BILL QuantiFERON Mitogen Value >10.00 IU/mL [facility] INSURANCE BILL QuantiFERON-TB Gold Plus Negative Negative [facility] INSURANCE BILL Comment: Chemiluminescence immunoassay methodology FASTING 07/19/2021 10:4 3 AM [facility] 07/19/2021 Narrative Resulting Agency Comment Lab Testing performed at: [employer] [facility] [address] ??[facility] [phone] Alina Harvey HATCHERY SUPERVISOR-HOLLOCK MAKER LAB - CHEM ISTRY ORDERABLES [facility] INSURANCE BILL [address] [place] [address] * (ABNORMAL) VAGINITIS PLUS (BV CA CT NG TRICH) (07/01/2021 4:04 PM CDT) Atopobium vaginae Moderate - 1 Score [facility] INSURANCE BILL BVAB 2 High - 2(A) Score [facility] INSURANCE BILL Megashaera Low - 0 Score [facility] INSURANCE BILL Comment: Calculate total score by adding the 3 individual bacterial vaginosis (BV) marker scores together. ??Total score is interpreted as follows: Total score 0-1: Indicates the absence of BV. Total score ?? 2: Indeterminate for BV. Additional clinical ? data should be evaluated to establish a ? diagnosis. Total score 3-6: Indicates the presence of BV. ? . This test was developed and its performance characteristics determined by [employer]. ??It has not been cleared or approved by the Food and Drug Administration. Litzy albicans JOSHUA Negative Negative [facility] INSURANCE BILL Litzy glabrata JOSHUA Negative Negative [facility] INSURANCE BILL Trichomonas vaginalis by JOSHUA Positive(A) Negative [facility] INSURANCE BILL Chlamydia Trachomatis JOSHUA Negative Negative [facility] INSURANCE BILL GC JOSHUA Negative Negative [facility] INSURANCE BILL Microbiology ENTIRE VAGINA / Unknown 07/01/2021 4:04 PM CDT 07/01/2021 Narrative [facility] INSURANCE BILL - 07/04/2021 11:06 PM CDT Test(s) 543874-Esocxpt albicans, JOSHUA; 403710-Dywzwaw glabrata, JOSHUA was developed and its performance characteristics determined by [employer]. It has not been cleared or approved by the Food and Drug Administration. Resulting Agency Comment Lab Testing performed at: [address] ??[place] [phone] Darryl Starr DO LAB - MICROBIOLOGY O RDERABLES [facility] INSURANCE BILL [address] [place] [address] * PAP IG LB RFLX HPV APTIMA ASCU (07/01/2021 4:04 PM CDT) Diagnosis [facility] INSURANCE BILL Comment: NEGATIVE FOR INTRAEPITHELIAL LESION OR MALIGNANCY. TRICHOMONAS VAGINALIS IS PRESENT. Specimen Adequacy [facility] INSURANCE BILL Comment: Satisfactory for evaluation. ??Endocervical and/or squamous metaplastic cells (endocervical component) are present. Clinician Provided ICD10 [facility] INSURANCE BILL Comment: Z01.419 N20.0 N76.1 Performed by [facility] INSURANCE BILL Comment:Libby montgomery, Geek Squad Agent (ASCP) Comment . [facility] INSURANCE BILL Note [facility] INSURANCE BILL Comment: The Pap smear is a screening test designed to aid in the detection of premalignant and malignant conditions of the uterine cervix. ??It is not a diagnostic procedure and should not be used as the sole means of detecting cervical cancer. ??Both false-positive and false-negative reports do occur. ? . IGLBP CPT Code Automation [facility] INSURANCE BILL Comment: This liquid based ThinPrep(R) pap test was screened with the use of an image guided system. Note [facility] INSURANCE BILL Comment: The HPV DNA reflex criteria were not met with this specimen result therefore, no HPV testing was performed. ? . Pathology/Cytolog y PART OF UTERINE CERVIX / Unknown 07/01/2021 4:04 PM CDT 07/02/2021 Narrative [facility] INSURANCE BILL - 07/03/2021 5:08 PM CDT No. of containers..01 ThinPrep Vial Resulting Agency Comment Lab Testing performed at: [address] ??[place] [phone] Darryl Starr DO LAB - PATHOLOGY/CYTO LOGY ORDERABLES Performing Organization Address City/[facility]/ZIP Co de Phone Number [facility] INSURANCE BILL [address] [place] [address] * (ABNORMAL) IRON + TIBC PANEL (07/01/2021 2:36 PM CDT) TIBC 348 250 - 450 ug/dL [facility] ACCOUNT BILL UIBC 328 131 - 425 ug/dL [facility] ACCOUNT BILL Iron 20(L) 27 - 159 ug/dL [facility] ACCOUNT BILL Iron Saturation 6(LL) 15 - 55 % [facility] ACCOUNT BILL Blood BLOOD SPECIMEN / Unknown 07/01/2021 2:36 PM CDT 07/01/2021 Narrative Resulting Agency Comment Lab Testing performed at: [address] ??[facility] [phone] Citlaly Ramos DO LAB - CHEMISTRY ORDBoy YUNG Performing Organization Address City/[facility]/ZIP Co de Phone Number [facility] ACCOUNT BILL [address] [place] [address] * VITAMIN B12 FOLATE PANEL (07/01/2021 2:36 PM CDT) Pathologist [facility] Vitamin B12 587 213 - 816 pg/mL [facility] ACCOUNT BILL Folate 10.4 7.0 - 31.4 ng/mL [facility] ACCOUNT BILL Blood BLOOD SPECIMEN / Unknown 07/01/2021 2:36 PM CDT 07/01/2021 Narrative Resulting Agency Comment Lab Testing performed at: [facility] [address] ?? [facility] [phone] Citlaly Ramos DO LAB - CHEMISTRY ORDE AGA [facility] ACCOUNT BILL [address] [place] [address] * FERRITIN (07/01/2021 2:36 PM CDT) Pathologist [facility] Ferritin 8 5 - 204 ng/mL [facility] ACCOUNT BILL Blood BLOOD SPECIMEN / Unknown 07/01/2021 2:36 PM CDT 07/01/2021 Narrative Resulting Agency Comment Lab Testing performed at: [facility] [address] ?? [facility] [phone] Citlaly Ramos DO LAB - CHEMISTRY ORDE AGA [facility] ACCOUNT BILL [address] [place] [address] * (ABNORMAL) LIPID PROFILE REFLEX LDL DIRECT (02/21/2021 8:26 AM CDT) Pathologist [facility] Cholesterol 201(H) <200 mg/dL [facility] ACCOUNT BILL Triglycerides 43 <150 mg/dL [facility] ACCOUNT BILL HDL Cholesterol 72 >40 mg/dL [facility] ACCOUNT BILL VLDL Calculated 9 <=30 mg/dL [facility] ACCOUNT BILL LDL Calculated 120 <130 mg/dL [facility] ACCOUNT BILL Cholesterol/HDL Ratio 2.8 <4.5 [facility] ACCOUNT BILL LDL/HDL Ratio 1.7 <5.0 [facility] ACCOUNT BILL Comment: FASTING Blood BLOOD SPECIMEN / Unknown 02/21/2021 8:26 AM CDT 02/21/2021 Narrative Resulting Agency Comment Lab Testing performed at: [facility] [address] ?? [place] [phone] Citlaly Ramos DO LAB - CHEMISTRY ORDBoy YUNG Performing Organization Address [facility] Co de Phone Number [facility] ACCOUNT BILL [address] [place] [address] * (ABNORMAL) VITAMIN D 25-HYDROXY (02/21/2021 8:26 AM CDT) Pathologist [facility] Vitamin D, 25 Hydroxy 17.1(L) 30 - 100 ng/mL [facility] ACCOUNT BILL Comment: Vitamin D Status: ?Deficiency ? <20 ? ng/mL ?Insufficiency ?? 20-30 ??ng/mL ?Sufficiency ? 30-100 ng/mL ?Toxicity ? >100 ?ng/mL FASTING Blood BLOOD SPECIMEN / Unknown 02/21/2021 8:26 AM CDT 02/21/2021 Narrative Resulting Agency Comment Lab Testing performed at: [facility] [address] ?? [place] [phone] Citlaly Ramos DO LAB - CHEMISTRY ORDE RABFANNY Performing Organization Address City/[facility]/ZIP Co de Phone Number [facility] ACCOUNT BILL [address] [place] [address] * TSH (02/21/2021 8:26 AM CDT) Pathologist [facility] TSH 1.8822 0.35 - 4.94 uIU/mL [facility] ACCOUNT BILL Comment:FASTING Blood BLOOD SPECIMEN / Unknown 02/21/2021 8:26 AM CDT 02/21/2021 Narrative Resulting Agency Comment Lab Testing performed at: [facility] [address] ?? [place] [phone] Citlaly Ramos LAB - CHEMISTRY JOANNA YUNG [facility] ACCOUNT [address] [address] * PATHOLOGY TISSUE (01/14/2021 1:17 PM CDT) Case Report Surgical Pathology Report ? Case: [id number] ? Authorizing Provider: ??Miller Zamora MD ?Collected: ? 01/14/2021 01:17 PM ? Ordering Location: ? [facility] ?Received: ?01/14/2021 03:03 PM ? Pathologist: ? Tammy Brunson MD ? Specimen: ?Calculus, Right ureter calculus ? 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 01/21/2021 9:46 AM CDT [facility] Gross Description The requisition and specimen label(s) are identified with the patient's name, Jumana Rivers. Received fresh, specimen A , right ureter calculus are multiple shelby yellow-brown firm stones measuring 0.1-0.3 cm in greatest dimension. This specimen is for chemical examination only. 01/21/2021 9:46 AM CDT [facility] Disclaimer The performance characteristics of all immunohistochemical and indirect immunofluorescence stains (if any) cited in this report were determined by the Histopathology Laboratory of [facility]. Some of these tests were developed by our own laboratory and have not been cleared or approved by the US Food and Drug Administration. The FDA does not require this test to go through premarket FDA review. These tests are used for clinical purposes. They should not be regarded as investigational or for research. This laboratory is certified under the Clinical Laboratory Improvement Amendments (CLIA) as qualified to perform high complexity clinical laboratory testing. This case has been personally reviewed and interpreted by the attending (teaching) pathologist. 01/21/2021 9:46 AM CDT [facility] Embedded Images 01/21/2021 9:46 AM CDT [facility] Gross only CALCULUS SPECIMEN / Unknown 01/14/2021 1:17 PM CDT 01/14/2021 3:03 PM CDT Comment:Pre-op diagnosis: Right nephrolithiasis Miller Zamora MD LAB - PATHOLOGY/ TOBI ORDERABLES [facility] [address] [place] [address], [place] [phone] * STONE ANALYSIS QUANT (01/14/2021 1:17 PM CDT) Calculi Composition See Note 01/28/2021 3:57 PM CDT [employer] ([facility]) Comment: Calculi composed primarily of: 70% calcium oxalate monohydrate, 10% calcium oxalate dihydrate, and 20% calcium phosphate (hydroxy- and carbonate- apatite). INTERPRETIVE INFORMATION: Calculi (Stone) analysis Calculi are the products of physiological processes that yield crystalline compounds in a matrix of biological compounds and blood. ??Matrix components are not reported. ??The clinically significant crystalline components identified in calculi specimens are reported. ??Gross description may not be consistent with composition determined by FTIR analysis. Performed By: [employer] [address] [place] [address] Panel Monitor: Marisol Velázquez MD Calculi Mass 25 mg 01/28/2021 3:57 PM CDT [employer] ([facility]) Calculi Number 4 01/28/2021 3:57 PM CDT [employer] ([facility]) Calculi Size Various mm 01/28/2021 3:57 PM CDT [employer] ([facility]) Calculi Description See Note 01/28/2021 3:57 PM CDT [employer] ([facility]) Comment: Specimen consists of four, various sized (1 mm to 9 mm), shelby/white, irregular calculi fragments. Pathology/Cytolo gy CALCULUS SPECIMEN / Unknown Collection / Unknown 01/14/2021 1:17 PM CDT 01/25/2021 10:18 AM CDT Miller Zamora MD LAB - URINE CHEMIS TRY ORDERABLES [facility] [employer] [facility]) [address] * LARYNGEAL MASK AIRWAY (01/14/2021 12:24 PM CDT) Narrative Caroline Santoro APRN-CRNA - 01/14/2021 12:24 PM CDT Caroline Santoro APRN-CRNA ? 01/14/2021 12:24 PM LMA Placement Procedure/LDA Note: Patient Location: OR. LMA Insertion Date/Time: ??01/14/2021 12:22 PM Procedure: LMA. Pretreatment: 100% O2 Induction: standard IV Patient position: supine. Mask Ventilation: easy Type: ??LMA Size: ??4 Number of Attempts: 1. Placement verified by: bilateral breath sounds, CO2 monitor and chest auscultation Dentition unchanged? ??Yes Procedure Start Time: 01/14/2021 12:22 PM. Staff Section ?? Anesthesia Provider: Caroline Santoro APRN-ALEXIS, Performed the procedure Paras Han MD GENERAL ANESTHESIA O RDERABLES * (ABNORMAL) URINALYSIS NO MICROSCOPIC NO CULTURE (01/14/2021 8:05 AM T) Only the most recent of2 resultswithin the time period is included. Color UA Yellow Straw, Yellow, Colorless 01/14/2021 10:05 AM [facility] Clarity UA Cloudy(A) Clear, t Cloudy 01/14/2021 10:05 AM [facility] Specific [place] UA 1.023 1.005 - 1.030 01/14/2021 10:05 AM [facility] pH UA 5.0 5.0 - 8.0 pH 01/14/2021 10:05 AM [facility] Protein UA 2+(A) Negative mg/dL 01/14/2021 10:05 AM [facility] Glucose UA Negative Negative mg/dL 01/14/2021 10:05 AM [facility] Ketone UA Negative Negative mg/dL 01/14/2021 10:05 AM [facility] Bilirubin UA Negative Negative mg/dL 01/14/2021 10:05 AM [facility] Blood UA 3+(A) Negative 01/14/2021 10:05 AM [facility] Nitrite UA Negative Negative 01/14/2021 10:05 AM [facility] Leukocyte Esterase 2+(A) Negative 01/14/2021 10:05 AM [facility] Urobilinogen UA Negative Negative mg/dL 01/14/2021 10:05 AM [facility] Urine URINE SPECIMEN OBTAINED BY CLEAN CATCH PROCEDURE / Unknown Collection / Unknown 01/14/2021 8:05 AM CDT 01/14/2021 9:53 AM [facility] - 01/14/2021 10:05 AM CDT Paras Han MD LAB - URINALYSIS ORD ERABLES [facility] [address] [place] [address], [place] [phone] * SARS-COV-2 (COVID-19) PRE-SURICAL/PROCEDURE (01/12/2021 2:06 PM CDT) COVID-19 PCR Not detected Not detected 01/12/2021 9:23 PM CDT [facility] Microbiology SPECIMEN FROM NASOPHARYNGEAL STRUCTURE / Unknown Collection / Unknown 01/12/2021 2:06 PM CDT 01/12/2021 2:26 PM CDT Narrative [facility] - 01/12/2021 9:23 PM CDT This nucleic acid amplification assay performance was validated by [facility]. This test has been authorized by the Food and Drug administration (FDA)under an Emergency??Use Authorization (EUA). This test has been validated in accordance with the FDA's guidance document Policy for Diagnostic Testing in Laboratories Certified to perform High Complexity Testing under CLIA prior to Emergency Use Authorization for Coronavirus Disease-2019 during the Public Health Emergency issued on November 05, 2019. FDA independent review of this validation is pending. This test is only authorized for the duration of time the declaration that circumstances exist justifying the authorization of emergency use of in vitro diagnostic tests for detection of SARS-CoV-2 virus and/or diagnosis of COVID-19 infection under section 564(b)(1) of the Act, 21 U.S.C 360bbb-3 (b)(1), unless the authorization is terminated or revoked sooner. Fact Sheets for this EUA assay are available upon request. Miller Zamora MD LAB - MICROBIOLOGY ORDERABLES [facility] [address] [place] [address], [place] [phone] * (ABNORMAL) CBC W/O DIFFERENTIAL (12/31/2020 12:46 PM CDT) WBC 7.3 3.5 - 10.5 10? 3 /uL 12/31/2020 1:45 PM [facility] RBC 4.37 3.90 - 5.00 10? 6 /uL 12/31/2020 1:45 PM [facility] Hemoglobin 11.4(L) 12.0 - 15.5 g/dL 12/31/2020 1:45 PM [facility] Hematocrit 35.0 35.0 - 45.0 % 12/31/2020 1:45 PM [facility] MCV 80.1(L) 81.0 - 97.0 fL 12/31/2020 1:45 PM [facility] MCH 26.1(L) 28.0 - 34.0 pg 12/31/2020 1:45 PM [facility] MCHC 32.6 32.0 - 36.0 g/dL 12/31/2020 1:45 PM [facility] Platelet Count 327 150 - 400 10? 3 /uL 12/31/2020 1:45 PM [facility] RDW-SD 47.9 36.0 - 50.0 fL 12/31/2020 1:45 PM [facility] RDW-CV 16.6(H) 11.2 - 14.8 % 12/31/2020 1:45 PM [facility] MPV 9.7 9.3 - 12.8 fL 12/31/2020 1:45 PM [facility] nRBC Absolute 0.00 0 10? 3 /uL 12/31/2020 1:45 PM [facility] nRBC Auto 0.0 0 /100 WBC 12/31/2020 1:45 PM [facility] Blood BLOOD SPECIMEN / Unknown Lab Venipuncture / Unknown 12/31/2020 12:46 PM CDT 12/31/2020 1:28 PM T Parish Taylor HATCHERY SUPERVISOR-HOLLOCK MAKER LAB - HEMATOL OGY ORDERABLES [facility] [address] [place] [address], [place] [phone] * BASIC METABOLIC PANEL (CALCIUM TOTAL) (12/31/2020 12:46 PM CDT) Only the most recent of6 resultswithin the time period is included. BUN 8 7 - 26 mg/dL 12/31/2020 2:05 PM [facility] Creatinine 0.7 0.6 - 1.2 mg/dL 12/31/2020 2:05 PM [facility] Sodium 138 136 - 145 mmol/L 12/31/2020 2:05 PM [facility] Potassium 3.8 3.5 - 4.5 mmol/L 12/31/2020 2:05 PM [facility] Chloride 106 98 - 107 mmol/L 12/31/2020 2:05 PM [facility] CO2 24 22 - 29 mmol/L 12/31/2020 2:05 PM [facility] Glucose 78 70 - 115 mg/dL 12/31/2020 2:05 PM [facility] Calcium 8.5 8.4 - 10.2 mg/dL 12/31/2020 2:05 PM [facility] Anion Gap 12 8 - 18 12/31/2020 2:05 PM [facility] BUN/Creatinine Ratio 11 7 - 23 12/31/2020 2:05 PM [facility] Osmolality Calculated 283 270 - 300 mOsm/kg 12/31/2020 2:05 PM [facility] eGFR >60 >60 mL/min/1.7 3 m2 12/31/2020 2:05 PM [facility] Blood BLOOD SPECIMEN / Unknown Lab Venipuncture / Unknown 12/31/2020 12:46 PM CDT 12/31/2020 1:28 PM CDT Parish Taylor APRN-RIKKI LAB - MANAGER ELIGIBILITY RY ORDERABLES [facility] [address] [place] [address], [place] [phone] * (ABNORMAL) URINALYSIS W/MICROSCOPIC NO CULTURE (12/28/2020 11:28 AM CDT) Only the most recent of2 resultswithin the time period is included. Color UA DARK YELLOW YELLOW [facility] Appearance CLOUDY(A) CLEAR [facility] Specific [place] UA 1.029 1.001 - 1.035 [facility] pH UA 6.0 5.0 - 8.0 [facility] Glucose UA NEGATIVE NEGATIVE [facility] Bilirubin UA NEGATIVE NEGATIVE [facility] Ketone UA TRACE(A) NEGATIVE [facility] Blood UA 3+(A) NEGATIVE [facility] Protein UA 2+(A) NEGATIVE [facility] Nitrite UA NEGATIVE NEGATIVE [facility] Leukocyte UA 2+(A) NEGATIVE [facility] WBC UA 20-40(A) < OR = 5 /HPF [facility] RBC UA > OR = 60(A) < OR = 2 /HPF [facility] Epithelial Cell UA 0-5 < OR = 5 /HPF [facility] Bacteria UA NONE SEEN NONE SEEN /HPF [facility] Hyaline Casts 6-10(A) NONE SEEN /LPF [facility] Yeast FEW(A) NONE SEEN /HPF [facility] Comments MODERATE MUCOUS THREADS [facility] Comment: Test Performed at: [employer] [facility] [address] [place], [place] ??[phone] MITA SEGURA DO,MPH 12/28/2020 11:2 8 AM CDT 12/28/2020 11:40 AM CDT Miller Zamora MD LAB - URINALYSIS O RDERABLES Performing Organization Address [facility] Co de Phone Number [facility] [address] [place] [address] * [place] CYSTO SURGERY (11/26/2020 3:55 PM CDT) Narrative [facility] - 11/30/2020 9:41 PM CDT Fluoroscopy was used for this exam in the OR. Please see the Operative report. Miller Zamora MD FLUOROSCOPY ORDERA BLES Performing Organization Address [facility]/ZIP Co de Phone Number [facility] * LARYNGEAL MASK AIRWAY (11/25/2020 3:32 PM CDT) Narrative Marina Sidhu DO - 11/25/2020 3:32 PM CDT Marina Sidhu DO ? 11/25/2020 ??3:33 PM LMA Placement Procedure/LDA Note: Patient Location: OR. LMA Insertion Date/Time: ??11/25/2020 3:21 PM Procedure: LMA. Pretreatment: 100% O2 Induction: standard IV Patient position: supine. Mask Ventilation: easy Type: ??LMA Size: ??4 Number of Attempts: 1. Placement verified by: CO2 monitor Dentition unchanged? ??Yes Procedure Start Time: 11/25/2020 3:21 PM. Staff Section ?? Anesthesia Provider: Marina Sidhu DO, Performed the procedure Ariel Talavera MD GENERAL ANESTHESIA ORDERABLES * SARS-COV-2 (COVID-19)+INFLU A+B PCR RAPID (11/24/2020 6:22 AM CDT) [facility] Signature COVID-19 PCR Not detected Not detected 11/25/19 7:00 AM CDT [facility] Influenza A Rapid JOSHUA Not Detected Not Detected 11/24/2020 7:00 AM T [facility] Influenza B JOSHUA Rapid Not Detected Not Detected 11/24/2020 7:00 AM T [facility] Microbiology SPECIMEN FROM NASOPHARYNGEAL STRUCTURE / Unknown Collection / Unknown 11/24/2020 6:22 AM CDT 11/24/2020 6:32 AM CDT [facility] [facility] - 11/24/2020 7:00 AM CDT Influenza assay performed by Nucleic Acid Amplification. Results do not exclude the possibility of a mixed viral infection. NOTE: ??Detecting and identifying specific viral nucleic acids from individuals exhibiting signs and symptoms of respiratory infection aids in the diagnosis of respiratory infection, if used in conjunction with other clinical and laboratory findings. The results of this test should not be used as the sole basis for diagnosis, treatment, or patient management decisions. This nucleic acid amplification assay performance was validated by [facility]. This test has been authorized by the Food and Drug administration (FDA)under an Emergency??Use Authorization (EUA). This test has been validated in accordance with the FDA's guidance document Policy for Diagnostic Testing in Laboratories Certified to perform High Complexity Testing under CLIA prior to Emergency Use Authorization for Coronavirus Disease-2019 during the Public Health Emergency issued on November 05, 2019. FDA independent review of this validation is pending. This test is only authorized for the duration of time the declaration that circumstances exist justifying the authorization of emergency use of in vitro diagnostic tests for detection of SARS-CoV-2 virus and/or diagnosis of COVID-19 infection under section 564(b)(1) of the Act, 21 U.S.C 360bbb-3 (b)(1), unless the authorization is terminated or revoked sooner. Fact Sheets for this EUA assay are available upon request. Bal Sanchez PA-C LAB - MICR OBIOLOGY ORDERABLES [address] [address], [place] [phone] * HCG URINE QUALITATIVE (11/24/2020 6:09 AM CDT) Only the most recent of2 resultswithin the time period is included. Test Urine Negative Negative 11/24/2020 6:33 AM CDT [facility] Urine URINE / Unknown Collection / Unknown 11/24/2020 6:09 AM CDT 11/24/2020 6:13 AM CDT Bal Sanchez PA-C LAB - URIN ALYSIS ORDERABLES Performing Organization Address [facility] Co de Phone Number [address] [phone], [place] [phone] * D-DIMER (03/15/2019 10:34 AM CDT) Only the most recent of2 resultswithin the time period is included. D-Dimer 0.46 0.17 - 0.5 mg/L FEU 03/15/2019 10:51 AM CDT [facility] Blood BLOOD SPECIMEN / Unknown Venipuncture / Unknown 03/15/2019 10:34 AM CDT 03/15/2019 10:40 AM CDT Narrative [facility] - 03/15/2019 10:51 AM CDT The [employer] D-Dimer assay is intended for use as an aid in diagnosis of venous thromboembolism [(VTE): deep vein thrombosis (DVT), pulmonary embolism (PE), and disseminated intravascular coagulation (DIC)], and has received U.S. Food and Drug Administration (FDA) approval to exclude VTE in patients with low or moderate pretest probability of PE or DVT (per Wells' rules). At a clinical cut-off value 0.50 mg/L FEU, the Negative Predictive Value of this assay is 99.8% for excluding PE and 100% for excluding DVT. A very low percentage of patients with VTE may yield D-Dimer results below the cut-off value. An elevated D-Dimer result has low specificity (40.4% for PE, 35.5% for DVT) and is a poor predictor of VTE. An elevated D-Dimer result may indicate DIC in the appropriate clinical setting. Results of this test should always be interpreted in conjunction with the patient's medical history, clinical presentation, and other findings. Alina Sevilla HATCHERY SUPERVISOR-HOLLOCK MAKER LAB -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 the left ovary measures 1.9 x 2.5 x 1.4 cm. The ovaries demonstrate normal color Doppler flow and low resistance wave spectral analysis. Gestational sac and pole are identified. The gestational sac measures approximately 1.2 cm in diameter consistent with 6 week gestation. No pole is identified. No heart rate is identified likely secondary to early dates. There is no free fluid in the pelvis. Procedure Note Justin Decker MD - 01/10/2014 Ultrasound OB transabdominal and transvaginal with Doppler INDICATION: Abdominal pelvic pain with positive test COMPARISON:None FINDINGS: The uterus measures 8 x 5.1 x 6.1 cm. There is a small subchorionic hemorrhage measuring 8 x 9 mm. The right ovary measures 3.2 x 3.2 x 2.8 cm and the left ovary measures 1.9 x 2.5 x 1.4 cm. The ovaries demonstrate normal color Doppler flow and low resistance wave spectral analysis. Gestational sac and pole are identified. The gestational sac measures approximately 1.2 cm in diameter consistent with 6 week gestation. No pole is identified. No heart rate is identified likely secondary to early dates. There is no free fluid in the pelvis. IMPRESSION Gestational sac with size consistent with 6 week gestation with estimated date of delivery 09/05/14. No pole is identified and recommend followup ultrasound. Small subchorionic hemorrhage. Violetta Flaherty MD ORDERABLES Care Teams Leather Goods Ii Assembler Relationship Specialty Start Date End Date Citlaly Ramos [facility] [place] [phone] PCP - General Family Medicine 02/21/21 Miller Zamora MD [address] [place] [address] Urology 02/21/21 [place] [address] [place], [place] [address] [phone] Obstetrics and Gynecology 07/04/21
--- OUTSIDE RECORDS SUMMARY | 2024-09-25 11:39 | XMS_ITS | Encounter Summary ---
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 * Telephone Encounter - Radha Garay MA - 01/06/2023 1:19 PM CDT FARRUKH 07/01/2021 LF 08/08/2021 Future apt no Requested Prescriptions Pending Prescriptions Disp Refills ??? fluconazole (Diflucan) 150 MG tablet [Pharmacy Med Name: Fluconazole 150 MG Oral Tablet] 1 tablet 0 Sig: TAKE ONE TABLET BY MOUTH A ONE-TIME DOSE documented in this encounter Plan of Treatment Not on file documented as of this encounter Visit Diagnoses Not on filedocumented in this encounter Care Teams Plug Maker Relationship Specialty Start Date End Date Citlaly Ramos DO [address] [place] [phone] PCP - General Family Medicine 02/21/21 Miller Zamora MD [address] [phone] Urology 02/21/21 Darryl Starr DO [address] [place] [place] [address] Obstetrics and Gynecology 07/04/21 documented as of this encounter
--- OUTSIDE RECORDS SUMMARY | 2024-09-25 11:40 | XMS_ITS | Encounter Summary ---
Author Organization [facility] Address [address] [place] [address] Care Team Providers Care Jar Capper Name Role Phone TheresaAnkita modiron GUZMAN Primary Care Provider [phone] Miller Zamora MD Unavailable [phone] Darryl Starr DO Unavailable Reason for Visit * Reason Onset Date Comments Follow-up 09/27/2021 Encounter Details Date Type Department Care Team (Late st Contact Info) Description 09/27/2021 Telephone [facility] [address] [place] [address] Candice Mcfadden, RN Follow-up Social History Tobacco Use Types Packs/Day Years [...] encounter Miscellaneous Notes * Telephone Encounter - Candice Mcfadden RN - 09/27/2021 11:20 AM APARTMENT RENTAL AGENT Nurse called patient about incoming referral to Dr. Zamora. Advised we unfortunately do not accept her insurance. Nurse offered to refer patient to [facility] in [place] or to another provider of her choosing with the understanding that she may need to be referred again if doctor doesn't accept her insurance. Nurse also suggested she ask her PCP. She declined referral. Patient states she has an appointment on 10/03 with Jeronimo Kowalski. Nurse provided her with the phonenumber of the referral coordinators at [phone] Kowalski's office accepts her insurance. I asked patient to call me back should she need a referral elsewhere. Patient encouraged to call with additional questions or concerns. My direct phone number was provided. Voiced understanding and is amenable to plan. TMENT RENTAL AGENT documented in this encounter Plan of Treatment Not on file documented as of this encounter Visit Diagnoses Not on filedocumented in this encounter Care Teams Jar Capper Relationship Specialty Start Date End Date Citlaly Ramos DO [address] [place] [phone] PCP - General Family Medicine 02/21/21 Miller Zamora MD [address] [place] [address] Urology 02/21/21 Darryl Starr DO [address] [address] Obstetrics and Gynecology 07/04/21 documented as of this encounter
--- OUTSIDE RECORDS SUMMARY | 2024-09-25 11:40 | XMS_ITS | Encounter Summary ---
Author Organization [facility] Address [address] [place] [address] Care Team Providers Care Rehabilitation Construction Specialist Name Role Phone Citlaly Ramos DO Primary Care Provider [phone] Miller Zamora MD Unavailable [phone] Darryl Starr DO Unavailable Encounter Details Date Type Department Care Team (Late st Contact Info) Description 10/04/2021 Orders Only [facility] - Family Medicine [address] [place] [address] Citlaly Ramos DO [address] [facility] [address] [place] [address] Iron deficiency anemia, unspecified iron deficiency anemia type Social History Tobacco Use Types Packs/Day Years [...] as of this encounter Visit Diagnoses Diagnosis Iron deficiency anemia, unspecified iron deficiency anemia type documented in this encounter Care Teams Rehabilitation Construction Specialist Relationship Specialty Start Date End Date Citlaly Ramos DO [address] [facility] [place] [address] PCP - General Family Medicine 02/21/21 Miller Zamora MD [address] [place] [phone] Urology 02/21/21 Darryl Starr DO [address] [facility] [place] [address] Obstetrics and Gynecology 07/04/21 documented as of this encounter
--- OUTSIDE RECORDS SUMMARY | 2024-09-25 11:40 | XMS_ITS | Encounter Summary ---
Author Organization [facility] Address [address] [place] [address] Care Team Providers Care Recovery Assistant Name Role Phone Citlaly Ramos DO Primary Care Provider [phone] Miller Zamora MD Unavailable [phone] Darryl Starr DO Unavailable Reason for Visit * Reason Onset Date Comments Erroneous encounter-disregard 09/27/2021 Encounter Details Date Type Department Care Team (Late st Contact Info) Description 09/27/2021 Telephone [facility] - Family Medicine [address] [place] [address] Citlaly Ramos DO [address] [facility] [address] [place] [address] Erroneous encounter-disregard Social History Tobacco Use Types Packs/Day Years [...] on filedocumented in this encounter Care Teams Recovery Assistant Relationship Specialty Start Date End Date Citlaly Ramos DO [address] [facility] [place] [address] PCP - General Family Medicine 02/21/21 Mliler Zamora MD [address] [place] [phone] Urology 02/21/21 Darryl Starr DO [address] [facility] [place] [phone] Obstetrics and Gynecology 07/04/21 documented as of this encounter
--- OUTSIDE RECORDS SUMMARY | 2024-09-25 11:40 | XMS_ITS | Encounter Summary ---
Author Organization [facility] Address [address] [place] [address] Care Team Providers Care Submarine Element Coordinator Name Role Phone TierraAnkita avalosron GUZMAN Primary Care Provider [phone] Miller Zamora MD Unavailable [phone] Darryl Starr DO Unavailable Reason for Visit * Reason Comments Pain Flank pt had right horsesh oe kidney with stent placement and a stone in January2021/pt has not followed up since stent placed Encounter Details Date Type Department Care Team (Late st Contact Info) Description 09/24/2021 2:38 PM TAB CARD PRESS OPERATOR - 09/24/2021 6:38 PM TAB CARD PRESS OPERATOR Emergency ER at [facility] [address], [place] [id number] Nancy Nuñez MD [address] [place], [place] [id number] Right flank pain; Pyelonephritis Discharge Disposition: Home or Self Care Social History Tobacco Use Types Packs/Day Years [...] on file documented as of this encounter Last Filed Vital Signs Vital Sign Reading Time Taken Comments Blood Pressure 128/84 09/24/2021 2:07 PM TAB CARD PRESS OPERATOR Pulse 93 09/24/2021 2:07 PM TAB CARD PRESS OPERATOR Temperature 37.2 ??C (98.9 ??F) 09/24/2021 2:07 PM CS T Respiratory Rate 18 09/24/2021 2:07 PM TAB CARD PRESS OPERATOR Oxygen Saturation 99% 09/24/2021 2:07 PM TAB CARD PRESS OPERATOR Inhaled Oxygen Concentration - - Weight 86.2 kg (190 lb) 09/24/2021 2:07 PM TAB CARD PRESS OPERATOR Height 162.6 cm (5' 4 ) 09/24/2021 2:07 PM TAB CARD PRESS OPERATOR Body Mass Index 32.61 09/24/2021 2:07 PM TAB CARD PRESS OPERATOR documented in this encounter Functional Status Functional Status Response [...] No 04/03/2014 documented as of this encounter Discharge Instructions * Attachments The following attachments cannot be sent through Care Everywhere. * Kidney Infection (AfterCare(R) Instructions(ER/ED)) (Jordanian) documented in this encounter Medications at Time of Discharge Medication Sig Dispensed Refills Start Date End Date ferrous sulfate 325 (65 FE) MG tablet Take 1 (one) tablet by mouth daily with breakfast 07/04/2021 ibuprofen (MOTRIN) 600 MG tablet Take 1 tablet by mouth every 6 hours as needed for Pain 30 tablet 03/15/2019 metroNIDAZOLE (FLAGYL) 500 MG tablet Take 1 (one) tablet by mouth 2 times daily 14 tablet 07/22/2021 oxyCODONE-acetaminophen (PERCOCET) 7.5-325 MG tablet Take 1 (one) tablet by mouth every 6 hours as needed for Pain 20 tablet 09/24/2021 triamcinolone acetonide (KENALOG) 0.5 % ointmentIndications:Ecz kristie, unspecified type Apply to affected area 2 times daily as needed 15 g 1 02/21/2021 escitalopram (LEXAPRO) 10 MG tabletIndications:Depre ssion with anxiety Take 1 (one) tablet by mouth once daily 30 tablet 2 07/04/2021 12/22/2021 sulfamethoxazole-trimet hoprim (BACTRIM DS; SEPTRA DS) 800-160 MG tablet Take 1 (one) tablet by mouth 2 times daily for 14 days 28 tablet 09/24/2021 10/08/2021 traZODone (DESYREL) 50 MG tabletIndications:Depre ssion with anxiety Take 1 (one) tablet by mouth nightly as needed for Insomnia 30 tablet 07/04/2021 12/22/2021 documented as of this encounter ED Notes * Rema Crespo RN - 09/24/2021 6:10 PM CST Patient states she has a horse shoe kideny had a stent placed in january of 2021. Patient is having pain to her right side. 06/16 CARD PRESS OPERATOR * Nancy Nuñez MD - 09/24/2021 2:56 PM CST ED Events Date/Time Event User Comments 09/24/21 1441 First Provider Evaluation NANCY NUÑEZ Datreion Deven [place] [id number] [facility] History Chief Complaint Patient presents with ??? Pain Flank pt had right horseshoe kidney with stent placement and a stone in January2021/pt has not followed up since stent placed This note was dictated using the assistance of dictation software. Please excuse any typographical errors. 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 Patient denies any fever, vomiting, abdominal pain. She has been noticing increased urinary urgency and frequency along with hematuria. Patient states she was seen at [facility] for stent placement and lithotripsy on the right kidney, had not followed up and has been trying to get in to see a urologist closer to her, however has not been able to get into a new appointment. Her flank pain has not changed since her procedure last year. She however cannot bear the pain any more. States she has allergy to hydrocodone/Vicodin but has tolerated Percocet in the past. She has been taking ibuprofen for the pain. Per chart review, patient is status post cystoscopy, right ureteroscopy, right laser lithotripsy, stone extraction, right retrograde pyelogram and stent placement by Dr. Miller Zamora on 01/14/21. Pt was supposed to have stent removal 2 weeks post procedure. Past Medical History: Diagnosis Date ??? Asthma remote ??? Chlamydia this ??? History of anemia ??? Kidney stones ??? Migraines ??? depression ??? Trichomonas Treated this Past Surgical History: Procedure Laterality Date ??? CYSTOSCOPY N/A 11/24/2020 N/A; Cystoscopy; Right Retrograde Pyelogram; Stent Placement ??? CYSTOSCOPY Right 11/25/2020 Right; CYSTOSCOPY WITH RIGHT RETROGRADE PYELOGRAM; STENT PLACEMENT ??? Lithotripsy ??? URETEROSCOPY Right 01/14/2021 Right; Cystoscopy, Right Ureteroscopy, Right Laser Lithotripsy, stone extraction, right retrograde pyelogram and possible right ureteral stent exchange Family History Problem Relation Name Age of Onset ??? Hypertension Maternal Grandmother ??? Hypertension Mother Social History Socioeconomic History ??? Marital status: Single Spouse name: Not on file ??? Number of children: Not on file ??? Years of education: Not on file ??? Highest education level: Not on file Occupational History ??? Not on file Tobacco Use ??? Smoking status: Former Smoker Packs/day: 0.25 Years: 6.00 Pack years: 1.50 Types: Cigarettes Quit date: 06/13/2021 Years since quittin.2 ??? Smokeless tobacco: Never Used ??? Tobacco comment: vape occasionally Vaping Use ??? Vaping Use: Some days Substance and Sexual Activity ??? Alcohol use: Yes Alcohol/week: 0.0 standard drinks Comment: occ ??? Drug use: Not Currently ??? Sexual activity: Not on file Other Topics Concern ??? Not on file Social History Narrative ??? Not on file Social Determinants of Health Financial Resource Strain: Not on file Food Insecurity: Not on file Transportation Needs: Not on file Physical Activity: Not on file Stress: Not on file Social Connections: Not on file Intimate Partner Violence: Not on file Housing Stability: Not on file Review of Systems Review of Systems Constitutional: Negative for chills and fever. Gastrointestinal: Negative for abdominal pain, diarrhea, nausea and vomiting. Genitourinary: Positive for flank pain, hematuria and urgency. All other systems reviewed and are negative. Physical Exam BP 128/84 Pulse 93 Temp 98.9 ??F (37.2 ??C) Resp 18 Ht 1.626 m (5' 4 ) Wt 86.2 kg (190 lb) LMP 08/12/2021 SpO2 99% BMI 32.61 kg/m?? Physical Exam Vitals and nursing note reviewed. Constitutional: General: She is not in acute distress. Appearance: She is well-developed. She is obese. She is not diaphoretic. HENT: Head: Normocephalic and atraumatic. Nose: Nose normal. Eyes: General: Right eye: No discharge. Left eye: No discharge. Conjunctiva/sclera: Conjunctivae normal. Cardiovascular: Heart sounds: Normal heart sounds. No murmur heard. No friction rub. No gallop. Pulmonary: Effort: Pulmonary effort is normal. No respiratory distress. Breath sounds: No stridor. No wheezing or rales. Abdominal: General: There is no distension. Palpations: Abdomen is soft. Tenderness: There is no abdominal tenderness. There is right CVA tenderness (mild). There is no guarding or rebound. Musculoskeletal: General: No deformity. Normal range of motion. Cervical back: Normal range of motion. Skin: General: Skin is warm and dry. Neurological: Mental Status: She is alert. Cranial Nerves: No cranial nerve deficit. Motor: No abnormal muscle tone. Medications Current Outpatient Medications Medication Sig Dispense Refill ??? escitalopram (LEXAPRO) 10 MG tablet Take 1 (one) tablet by mouth once daily 30 tablet 2 ??? ferrous sulfate 325 (65 FE) MG tablet Take 1 (one) tablet by mouth daily with breakfast ??? ibuprofen (MOTRIN) 600 MG tablet Take 1 tablet by mouth every 6 hours as needed for Pain 30 tablet 0 ??? metroNIDAZOLE (FLAGYL) 500 MG tablet Take 1 (one) tablet by mouth 2 times daily 14 tablet 0 ??? oxyCODONE-acetaminophen (PERCOCET) 7.5-325 MG tablet Take 1 (one) tablet by mouth every 6 hoursas needed for Pain 20 tablet 0 ??? sulfamethoxazole-trimethoprim (BACTRIM DS; SEPTRA DS) 800-160 MG tablet Take 1 (one) tablet by mouth 2 times daily for 14 days 28 tablet 0 ??? traZODone (DESYREL) 50 MG tablet Take 1 (one) tablet by mouth nightly as needed for Insomnia 30tablet 0 ??? triamcinolone acetonide (KENALOG) 0.5 % ointment Apply to affected area 2 times daily as [id number] g 1 Procedures Procedures Lab Interpretation Oxygen Saturation Interpretation The oxygen saturation level is: 99%. The patient was on Room Air for the saturation measurement. Measurement frequency: Spot Check. Oxygen saturation interpretation is Normal. Intervention(s) used: None. Hospital Encounter on 09/24/21 HCG URINE QUAL POCT NOTIFICATION Result Value Ref Range Comment Notification Label Only - See Separate Report URINALYSIS REFLEX MICROSCOPIC REFLEX CULTURE Specimen: Urine Clean Catch Result Value Ref Range Color UA Yellow Straw, Yellow Clarity UA Cloudy (Abnormal) Clear Glucose UA Negative Negative Bilirubin UA Negative Negative Ketone UA Negative Negative Specific Fisher UA 1.020 1.005 - 1.030 Blood UA 3+ (Abnormal) Negative pH UA 6.0 5.0 - 8.0 pH Protein UA 2+ (Abnormal) Negative Urobilinogen UA Negative Negative mg/dL Nitrite UA Negative Negative Leukocyte UA 3+ (Abnormal) Negative Urine Microscopy Urine microscopy to follow Reflex Status Culture to follow CBC W AUTO DIFFERENTIAL Result Value Ref Range WBC 7.4 4.4 - 10.7 x10E9/L WBC Corrected RBC 4.37 3.80 - 5.20 x10E12/L Hemoglobin 10.7 (L) 12.0 - 15.6 gm/dL Hematocrit 34.3 (L) 35.9 - 45.5 % MCV 78.5 (L) 80.7 - 98.3 fl MCH 24.5 (L) 26.7 - 34.0 pg MCHC 31.2 30.8 - 35.9 gm/dL Platelet Count 436 (H) 153 - 416 x10E9/L RDW-CV 18.2 (H) 12.1 - 14.9 % MPV 9.2 (L) 9.4 - 12.9 fl Neutrophils % 55.3 44.0 - 73.0 % Lymphocytes % 25.5 20.0 - 43.0 % Monocytes % 10.3 5.0 - 13.0 % Eosinophils % 7.6 (H) 0.0 - 6.0 % Basophils % 0.9 0.0 - 2.0 % Immature Granulocytes 0.4 0 - 1 % Neutrophil Absolute 4.08 2.01 - 7.14 x10E9/L Lymphocytes Absolute 1.88 1.07 - 3.94 x10E9/L Monocytes Absolute 0.76 0.26 - 1.07 x10E9/L Eosinophils Absolute 0.56 (H) 0 - 0.47 x10E9/L Basophils Absolute 0.07 0 - 0.08 x10E9/L Immature Granulocytes Absolute 0.03 0.00 - 0.06 x10E9/L nRBC Auto 0 /100 WBC COMPREHENSIVE METABOLIC PANEL Result Value Ref Range Glucose 84 70 - 105 mg/dL Sodium 137 136 - 145 mmol/L Potassium 3.7 3.5 - 5.1 mmol/L Chloride 107 98 - 107 mmol/L CO2 24 23 - 31 mmol/L Calcium 9.3 8.4 - 10.4 mg/dL Anion Gap 6 (L) 8 - 18 mmol/L BUN 12 7 - 18.7 mg/dL Creatinine 0.64 0.57 - 1.11 mg/dL Alkaline Phosphatase 58 40 - 150 U/L ALT 13 0 - 61 U/L AST 16 5 - 34 U/L Protein Total 7.2 6.4 - 8.3 gm/dL Albumin 4.1 3.5 - 5.2 gm/dL Bilirubin Total 0.3 0.2 - 1.2 mg/dL eGFR by MDRD >60 >60 mL/min/1.73m2 eGFR by MDRD >60 >60 mL/min/1.73m2 URINE MICROSCOPIC ONLY REFLEX TO CULTURE Specimen: Urine Clean Catch Result Value Ref Range Reflex Status Culture to follow RBC UA >100 (Abnormal) None Seen, 0-2, 3-5 # /hpf WBC UA >100 (Abnormal) None Seen, 0-5 # /hpf Bacteria UA Trace (Abnormal) None Seen Squamous Epithelial Cells 6-10 (Abnormal) None Seen, 0-2, 3-5 /hpf Mucus UA 2+ /LPF HCG URINE QUALITATIVE - POCT (IP) INTERFACED Result Value Ref Range HCG Qual Urine Negative Negative US KIDNEYS/BLADDER (RETROPERITONEAL COMPLETE) Final Result RENAL ULTRASOUND HISTORY: Horseshoe kidney and right [...] Ja Jimenez on 09/24/2021 at 4:57 PM Progress Notes Patient here afebrile, vital signs stable, no apparent distress. Here for evaluation of persistent right flank pain ongoing for months since her stent placement last year. Patient states pain unchanged but still persistent and has not been able to follow-up with urology. Ultrasound renal as above with right obstructive changes and stones in the renal pelvis. Patient with no fever leukocytosis, UAshows WBC and RBC. Findings discussed with urology Dr. Zamora who performed initial surgery. Patient appears stable for discharge at this time with oral antibiotics and close outpatient follow-up. Will give pain control. Return precautions given to patient including worsening fever or vomiting to return to ED for possible admission and IV antibiotics. Patient tolerated Percocet with no reaction. Stable for discharge at this time. ED Course ED Course as of 09/24/212230e Sep 24, 2021 1739 D/w urology Dr. Barakat, agree with outpatient mgmt, will rx oral abx and f/u [JAYDEN] ED Course User Index [JAYDEN] Nancy Nñuez MD Clinical Impressions as of 01/18/22 2231 Right flank pain Pyelonephritis Medical Decision Making I have reviewed the: Previous Chart, Nursing Notes, Vitals. I have interpreted the following results: Labs, Ultrasound, Oxygen Saturation. I have discussed the case with Urology. Orders Placed This Encounter ??? CULTURE URINE ??? US KIDNEYS/BLADDER (RETROPERITONEAL COMPLETE) ??? HCG URINE QUAL POCT NOTIFICATION ??? URINALYSIS REFLEX MICROSCOPIC REFLEX CULTURE ??? CBC W AUTO DIFFERENTIAL ??? COMPREHENSIVE METABOLIC PANEL ??? URINE MICROSCOPIC ONLY REFLEX TO CULTURE ??? oxyCODONE-acetaminophen (Percocet) 5-325 MG tablet 1 tablet ??? ondansetron (Zofran) injection 4 mg ??? ketorolac (Toradol) injection 30 mg ??? oxyCODONE-acetaminophen (PERCOCET) 7.5-325 MG tablet ??? sulfamethoxazole-trimethoprim (BACTRIM DS; SEPTRA DS) 800-160 MG tablet ??? ketorolac (Toradol) 30 mg/ml injection ADS Med Dispo: discharge Follow-up Information Call Miller Zmaora MD. Specialty: Urology Contact information: [address] [facility] [phone] CARD PRESS OPERATOR documented in this encounter Plan of Treatment Not on file documented as of this encounter Procedures Procedure Name Priority Date/Time Associated Diagnosis Comments US RETROPERITONEAL COMPLETE STAT 09/24/2021 4:21 PM TAB CARD PRESS OPERATOR Right flank pain HCG URINE QUAL POCT NOTIFICATION STAT 09/24/2021 4:00 PM TAB CARD PRESS OPERATOR URINE MICROSCOPIC ONLY REFLEX TO CULTURE STAT 09/24/2021 3:02 PM TAB CARD PRESS OPERATOR URINALYSIS REFLEX MICROSCOPIC REFLEX CULTURE STAT 09/24/2021 3:02 PM TAB CARD PRESS OPERATOR CULTURE URINE STAT 09/24/2021 3:02 PM TAB CARD PRESS OPERATOR HCG URINE QUALITATIVE - POCT (IP) INTERFACED Routine 09/24/2021 3:01 PM TAB CARD PRESS OPERATOR CBC W AUTO DIFFERENTIAL STAT 09/24/19 3:01 PM TAB CARD PRESS OPERATOR COMPREHENSIVE METABOLIC PANEL STAT 09/24/2021 3:01 PM TAB CARD PRESS OPERATOR documented in this encounter Results * US KIDNEYS/BLADDER (RETROPERITONEAL COMPLETE) (09/24/2021 4:21 PM TAB CARD PRESS OPERATOR) Anatomical Region Laterality Modality Abdomen Ultrasound 09/24/2021 4:34 PM TAB CARD PRESS OPERATOR Narrative 09/24/2021 4:57 PM TAB CARD PRESS OPERATOR RENAL ULTRASOUND HISTORY: Horseshoe kidney and right [...] Jimenez on 09/24/2021 at 4:57 PM Nancy Nuñez MD US ORDERABLES * HCG URINE QUAL POCT NOTIFICATION (09/24/2021 4:00 PM TAB CARD PRESS OPERATOR) Comment Notification Label Only - See Separate Report 09/24/2021 4:00 PM TAB CARD PRESS OPERATOR [facility] Urine URINE / Unknown 2:44 PM TAB CARD PRESS OPERATOR Nancy Nuñez MD LAB - URINALYSIS ORD ERABLES Performing Organization Address City/[facility]/ZIP Co de Phone Number [facility] [address] [place] [address] * CULTURE URINE (09/24/2021 3:02 PM TAB CARD PRESS OPERATOR) Culture Urine >100,000 CFU/mL urogenital marco CHRYSTAL 09/26/2021 10:26 AM TAB CARD PRESS OPERATOR [facility] Urine URINE SPECIMEN OBTAINED BY CLEAN CATCH PROCEDURE / Unknown Collection / Unknown 09/24/2021 3:02 PM TAB CARD PRESS OPERATOR 09/24/2021 3:06 PM TAB CARD PRESS OPERATOR Nancy Nuñez MD LAB - MICROBIOLOGY O RDERABLES [facility] [address] [place], [place] [address], [facility] [phone] * (ABNORMAL) URINE MICROSCOPIC ONLY REFLEX TO CULTURE (09/24/2021 3:02 PM TAB CARD PRESS OPERATOR) Reflex Status Culture to follow 09/24/2021 3:11 PM TAB CARD PRESS OPERATOR [facility] RBC UA >100(A) None Seen, 0-2, 3-5 # /hpf 09/24/2021 3:11 PM TAB CARD PRESS OPERATOR [facility] WBC UA >100(A) None Seen, 0-5 # /hpf 09/24/2021 3:11 PM TAB CARD PRESS OPERATOR [facility] Bacteria UA Trace(A) None Seen 09/24/2021 3:11 PM TAB CARD PRESS OPERATOR [facility] Squamous Epithelial Cells 6-10(A) None Seen, 0-2, 3-5 /hpf 09/24/2021 3:11 PM TAB CARD PRESS OPERATOR [facility] Mucus UA 2+ /LPF 09/24/2021 3:11 PM TAB CARD PRESS OPERATOR [facility] Urine URINE SPECIMEN OBTAINED BY CLEAN CATCH PROCEDURE / Unknown Collection / Unknown 09/24/2021 3:02 PM TAB CARD PRESS OPERATOR 09/24/2021 3:06 PM TAB CARD PRESS OPERATOR [facility] - 09/24/2021 3:11 PM TAB CARD PRESS OPERATOR Nancy Nuñez MD LAB - URINALYSIS ORD ERABLES [facility] [address] [place] [address] * (ABNORMAL) URINALYSIS REFLEX MICROSCOPIC REFLEX CULTURE (09/24/2021 3:02 PM TAB CARD PRESS OPERATOR) Color UA Yellow Straw, Yellow 09/24/2021 3:10 PM [facility] Clarity UA Cloudy(A) Clear 09/24/2021 3:10 PM TAB CARD PRESS OPERATOR [facility] Glucose UA Negative Negative 09/24/2021 3:10 PM [facility] Bilirubin UA Negative Negative 09/24/2021 3:10 PM TAB CARD PRESS OPERATOR [facility] Ketone UA Negative Negative 09/24/2021 3:10 PM [facility] Specific Fisher UA 1.020 1.005 - 1.030 09/24/2021 3:10 PM [facility] Blood UA 3+(A) Negative 09/24/2021 3:10 PM [facility] pH UA 6.0 5.0 - 8.0 pH 09/24/2021 3:10 PM [facility] Protein UA 2+(A) Negative 09/24/2021 3:10 PM [facility] Urobilinogen UA Negative Negative mg/dL 09/24/2021 3:10 PM [facility] Nitrite UA Negative Negative 09/24/2021 3:10 PM [facility] Leukocyte UA 3+(A) Negative 09/24/2021 3:10 PM [facility] Urine Microscopy Urine microscopy to follow 09/24/2021 3:10 PM [facility] Reflex Status Culture to follow 09/24/2021 3:10 PM [facility] Urine URINE SPECIMEN OBTAINED BY CLEAN CATCH PROCEDURE / Unknown Collection / Unknown 09/24/2021 3:02 PM TAB CARD PRESS OPERATOR 09/24/2021 3:06 PM TAB CARD PRESS OPERATOR Narrative [facility] - 09/24/2021 3:10 PM TAB CARD PRESS OPERATOR Nancy Nuñez MD LAB - URINALYSIS ORD ERABLES Performing Organization Address City/[facility]/ZIP Co de Phone Number [facility] [address] [place] [address] * HCG URINE QUALITATIVE - POCT (IP) INTERFACED (09/24/2021 3:01 PM TAB CARD PRESS OPERATOR) Pathologist [facility] HCG Qual Urine Negative Negative 09/24/2021 3:07 PM [facility] Urine URINE / Unknown 09/24/2021 3 :01 PM TAB CARD PRESS OPERATOR 09/24/2021 3:07 PM TAB CARD PRESS OPERATOR Nancy Nuñez MD LAB - POINT OF CARE ORDERABLES Performing Organization Address [facility] Co de Phone Number [facility] [address] [place] [id number] * (ABNORMAL) COMPREHENSIVE METABOLIC PANEL (09/24/2021 3:01 PM TAB CARD PRESS OPERATOR) Pathologist [facility] Glucose 84 70 - 105 mg/dL 09/24/2021 3:23 PM [facility] Sodium 137 136 - 145 mmol/L 09/24/2021 3:23 PM [facility] Potassium 3.7 3.5 - 5.1 mmol/L 09/24/2021 3:23 PM [facility] Chloride 107 98 - 107 mmol/L 09/24/2021 3:23 PM [facility] CO2 24 23 - 31 mmol/L 09/24/2021 3:23 PM [facility] Calcium 9.3 8.4 - 10.4 mg/dL 09/24/2021 3:23 PM [facility] Anion Gap 6(L) 8 - 18 mmol/L 09/24/2021 3:23 PM [facility] BUN 12 7 - 18.7 mg/dL 09/24/2021 3:23 PM [facility] Creatinine 0.64 0.57 - 1.11 mg/dL 09/24/2021 3:23 PM [facility] Alkaline Phosphatase 58 40 - 150 U/L 09/24/2021 3:23 PM TAB CARD PRESS OPERATOR [facility] ALT 13 0 - 61 U/L 09/24/2021 3:23 PM TAB CARD PRESS OPERATOR [facility] AST 16 5 - 34 U/L 09/24/2021 3:23 PM TAB CARD PRESS OPERATOR [facility] Protein Total 7.2 6.4 - 8.3 gm/dL 09/24/2021 3:23 PM TAB CARD PRESS OPERATOR [facility] Albumin 4.1 3.5 - 5.2 gm/dL 09/24/2021 3:23 PM [facility] Bilirubin Total 0.3 0.2 - 1.2 mg/dL 09/24/2021 3:23 PM TAB CARD PRESS OPERATOR [facility] eGFR by MDRD >60 >60 mL/min/1.7 3m2 09/24/2021 3:23 PM TAB CARD PRESS OPERATOR [facility] eGFR by MDRD >60 >60 mL/min/1.7 3m2 09/24/2021 3:23 PM [facility] Blood BLOOD SPECIMEN / Unknown Venipuncture / Unknown 09/24/2021 3:01 PM TAB CARD PRESS OPERATOR 09/24/2021 3:06 PM [facility] Nancy Nuñez MD LAB [facility] Organization Address City/State/ZIP Co de Phone Number [facility] [address] [place] [address] * (ABNORMAL) CBC W AUTO DIFFERENTIAL (09/24/2021 3:01 PM TAB CARD PRESS OPERATOR) WBC 7.4 4.4 - 10.7 x10E9/L 09/24/2021 3:08 PM TAB CARD PRESS OPERATOR [facility] WBC Corrected 09/24/2021 3:08 PM [facility] RBC 4.37 3.80 - 5.20 x10E12/L 09/24/2021 3:08 PM [facility] Hemoglobin 10.7(L) 12.0 - 15.6 gm/dL 09/24/2021 3:08 PM [facility] Hematocrit 34.3(L) 35.9 - 45.5 % 09/24/2021 3:08 PM TAB CARD PRESS OPERATOR [facility] MCV 78.5(L) 80.7 - 98.3 fl 09/24/2021 3:08 PM [facility] MCH 24.5(L) 26.7 - 34.0 pg 09/24/2021 3:08 PM [facility] MCHC 31.2 30.8 - 35.9 gm/dL 09/24/2021 3:08 PM [facility] Platelet Count 436(H) 153 - 416 x10E9/L 09/24/2021 3:08 PM [facility] RDW-CV 18.2(H) 12.1 - 14.9 % 09/24/2021 3:08 PM [facility] MPV 9.2(L) 9.4 - 12.9 fl 09/24/2021 3:08 PM [facility] Neutrophils % 55.3 44.0 - 73.0 % 09/24/2021 3:08 PM [facility] Lymphocytes % 25.5 20.0 - 43.0 % 09/24/2021 3:08 PM [facility] Monocytes % 10.3 5.0 - 13.0 % 09/24/2021 3:08 PM [facility] Eosinophils % 7.6(H) 0.0 - 6.0 % 09/24/2021 3:08 PM [facility] Basophils % 0.9 0.0 - 2.0 % 09/24/2021 3:08 PM [facility] Immature Granulocytes 0.4 0 - 1 % 09/24/2021 3:08 PM [facility] Neutrophil Absolute 4.08 2.01 - 7.14 x10E9/L 09/24/2021 3:08 PM [facility] Lymphocytes Absolute 1.88 1.07 - 3.94 x10E9/L 09/24/2021 3:08 PM [facility] Monocytes Absolute 0.76 0.26 - 1.07 x10E9/L 09/24/2021 3:08 PM [facility] Eosinophils Absolute 0.56(H) 0 - 0.47 x10E9/L 09/24/2021 3:08 PM [facility] Basophils Absolute 0.07 0 - 0.08 x10E9/L 09/24/2021 3:08 PM [facility] Immature Granulocytes Absolute 0.03 0.00 - 0.06 x10E9/L 09/24/2021 3:08 PM TAB CARD PRESS OPERATOR [facility] nRBC Auto 0 /100 WBC 09/24/2021 3:08 PM TAB CARD PRESS OPERATOR [facility] Blood BLOOD SPECIMEN / Unknown Venipuncture / Unknown 09/24/2021 3:01 PM TAB CARD PRESS OPERATOR 09/24/2021 3:06 PM TAB CARD PRESS OPERATOR Nancy Nuñez MD LAB - HEMATOLOGY ORD ERABLES [facility] [address] [place] [address] documented in this encounter Visit Diagnoses Diagnosis Right flank pain Abdominal pain, unspecified site Pyelonephritis Pyelonephritis, unspecified documented in this encounter Administered Medications Inactive Administered Medications - up to 3 most recent administrations Medication Order MAR Action Action Date Dose Rate Site ketorolac (Toradol) injection 30 mg 30 mg, Intravenous, NOW, 1 dose, On Thu09/24/21 at 1830 $ Given 09/24/2021 6:31 PM TAB CARD PRESS OPERATOR 30 mg ondansetron (Zofran) injection 4 mg 4 mg, Intravenous, NOW, 1 dose, On Thu09/24/21 at 1530, Administer over 2 to 5 minutes. $ Given 09/24/2021 3:17 PM TAB CARD PRESS OPERATOR 4 mg oxyCODONE-acetaminophen (Percocet) 5-325 MG tablet 1 tablet 1 tablet, Oral, NOW, 1 dose, On Thu09/24/21 at 1500 $ Given 09/24/2021 3:13 PM TAB CARD PRESS OPERATOR 1 tablet documented in this encounter Active and Recently Administered Medications Times are shown in TAB CARD PRESS OPERATOR. Scheduled Medication Order 09/22/2021 09/23/2021 09/24/2021 ketorolac (Toradol) injection 30 mg (COMPLETED) 30 mg, Intravenous, NOW, 1 dose, On Thu09/24/21 at 1830 1831 ($ Given - Prov ider: Rema Crespo RN) ondansetron (Zofran) injection 4 mg (COMPLETED) 4 mg, Intravenous, NOW, 1 dose, On Thu09/24/21 at 1530, Administer over 2 to 5 minutes. 1517 ($ Given - Prov ider: Estiven Mcmahon) oxyCODONE-acetaminophen (Percocet) 5-325 MG tablet 1 tablet (COMPLETED) 1 tablet, Oral, NOW, 1 dose, On Thu09/24/21 at 1500 1513 ($ Given - Prov ider: Estiven Mcmahon) documented in this encounter Care Teams Submarine Element Coordinator Relationship Specialty Start Date End Date Citlaly Ramos DO [address] [facility] [place] [address] PCP - General Family Medicine 02/21/21 Miller Zamora MD [address] [phone] Urology 02/21/21 Darryl Starr DO [address] [place] [address] Obstetrics and Gynecology 07/04/21 documented as of this encounter
--- OUTSIDE RECORDS SUMMARY | 2024-09-25 11:40 | XMS_ITS | Encounter Summary ---
Author Organization [facility] Health Address [address] [facility] [place] [address] Care Team Providers Care Wildlife Ecology Professor Name Role Phone TierraCitlaly avalos Primary Care Provider [phone] Miller Zamora MD Unavailable [phone] Darryl Starr DO Unavailable Encounter Details Date Type Department Care Team (Late st Contact Info) Description 09/25/2021 Orders Only [facility] [address] [place] [address] Candice Mcfadden, RN Ureteral stent retained ; Flank pain Social History Tobacco Use Types Packs/Day Years [...] No 04/03/2014 documented as of this encounter Progress Notes * Candice Mcfadden, RN - 09/25/2021 2:01 PM CST ED EDGE SEWING MACHINE OPERATOR documented in this encounter Plan of Treatment Not on file documented as of this encounter Visit Diagnoses Diagnosis Ureteral stent retained- Primary Other complications due to genitourinary device, implant, and graft Flank pain Abdominal pain, unspecified site documented in this encounter Care Teams Wildlife Ecology Professor Relationship Specialty Start Date End Date Citlaly Ramos DO [address] [place] [phone] PCP - General Family Medicine 02/21/21 Miller Zamora MD [address] [place] [address] Urology 02/21/21 Darryl Starr DO [address] [place] [address] Obstetrics and Gynecology 07/04/21 documented as of this encounter
--- OUTSIDE RECORDS SUMMARY | 2024-09-25 11:41 | XMS_ITS | Encounter Summary ---
Author Organization [facility] Health Address [address] [facility] [place] [address] Care Team Providers Care Junior Electrical Engineer Name Role Phone TierraCitlaly avalos Primary Care Provider [phone] Miller Zamora MD Unavailable [phone] Darryl Starr DO Unavailable Encounter Details Date Type Department Care Team (Late st Contact Info) Description 07/19/2021 Orders Only [facility] - Family Medicine [address] [place], [place] [id number] Alina Harvey, AUTOMOBILE UPHOLSTERY TRIM INSTALLER-AEROSPACE MEDICINE PHYSICIAN [address] [facility] [address] [place] [address] Social History Tobacco Use Types Packs/Day Years Used Date Smoking Tobacco: Former Cigarettes 0.3 6 1 - 06/13/2021 Smokeless Tobacco: Never Comments:vape occasionally Alcohol Use Standard Drinks/Week Comments Yes 0 (1 standard drink = 0.6 oz pur e alcohol) occ PHQ-2 Answer Date Recorded PHQ2 TOTAL SCORE 6 07/04/2021 Sex and Gender Information Value Date Recorded Sex Assigned at Not on file Gender Identity Not on file Sexual Orientation Not on file COVID-19 Exposure Response Date Recorded In the last month, have you been in contact with someone who was confirmed or suspected to have Coronavirus / COVID-19? No / Unsure 07/05/2021 3:42 PM CDT documented as of this encounter Functional Status [...] Procedure Name Priority Date/Time Associated Diagnosis Comments QUANTIFERON TB-GOLD 07/19/2021 1 0:43 AM ENVIRONMENTAL REMEDIATION ENGINEER documented in this encounter Results * QUANTIFERON TB-GOLD (07/19/2021 10:43 AM ENVIRONMENTAL REMEDIATION ENGINEER) QuantiFERON Incubation Incubation performed. [facility] INSURANCE BILL QuantiFERON Criteria [facility] INSURANCE BILL [...] immunoassay methodology FASTING 07/19/2021 10:4 3 AM ENVIRONMENTAL REMEDIATION ENGINEER 07/19/2021 Narrative Resulting Agency Comment Lab Testing performed at: [facility] [address] [facility] ??Critical access hospital [id number] Alina Harvey AUTOMOBILE UPHOLSTERY TRIM INSTALLER-AEROSPACE MEDICINE PHYSICIAN LAB - CHEM ISTRY ORDERABLES [facility] INSURANCE BILL [address] [place] [address] documented in this encounter Visit Diagnoses Not on filedocumented in this encounter Care Teams Junior Electrical Engineer Relationship Specialty Start Date End Date Citlaly Ramos DO [address] [place] [address] [place] [address] PCP - General Family Medicine 02/21/21 Miller Zamora MD [address] [place] [phone] Urology 02/21/21 Darryl Starr DO [address] [place] [address] [place] [address] Obstetrics and Gynecology 07/04/21 documented as of this encounter
--- OUTSIDE RECORDS SUMMARY | 2024-09-25 11:41 | XMS_ITS | Encounter Summary ---
Author Organization [facility] Address [address] [facility] [place] [address] Care Team Providers Care Police Commissioner Name Role Phone TheresaAnkita modiron GUZMAN Primary Care Provider [phone] Miller Zamora MD Unavailable [phone] Darryl Starr DO Unavailable Reason for Visit * Reason Comments Nurse Only Encounter Details Date Type Department Care Team (Latest Contact Info) Description 07/19/2021 10:30 AM DRAFTER AUTOMOTIVE DESIGN LAYOUT Clinical Support [facility] Medical [facility] - HEAD GREASE MAKER [address] [place] [address] Hx of trichomoniasis Social History Tobacco Use Types Packs/Day Years [...] as of this encounter Progress Notes * Devora Dennis MA - 07/19/2021 12:20 PM CST Pt left urine sample for PAMELLA trich. Sample sent to [facility]. TER AUTOMOTIVE DESIGN LAYOUT documented in this encounter Plan of Treatment Not on file documented as of this encounter Procedures Procedure Name Priority Date/Time Associated Diagnosis Comments CHLAMYDIA + GC + TRICH DNA AMPL Routine 07/19/2021 2:35 PM DRAFTER AUTOMOTIVE DESIGN LAYOUT Hx of trichomoniasis documented in this encounter Results * (ABNORMAL) CHLAMYDIA + GC + TRICH DNA AMPL (07/19/2021 2:35 PM DRAFTER AUTOMOTIVE DESIGN LAYOUT) Chlamydia trachomatis JOSHUA Negative Negative [facility] INSURANCE BILL GC DNA Probe Negative Negative [facility] INSURANCE BILL Trichomonas vaginalis by JOSHUA Positive(A) Negative [facility] INSURANCE BILL Microbiology URINE / Unknown 07/19/2021 2 :35 PM DRAFTER AUTOMOTIVE DESIGN LAYOUT 07/19/2021 Narrative Resulting Agency Comment Lab Testing performed at: [facility] ??[place] [id number] Libby Rod E COMMERCE SPECIALIST-DIRECTOR MATERNAL CHILD LAB - MICROBI OLOGY ORDERABLES [facility] INSURANCE BILL [address] [place] [address] documented in this encounter Visit Diagnoses Diagnosis Hx of trichomoniasis- Primary Personal history of other infectious and parasitic disease documented in this encounter Care Teams Police Commissioner Relationship Specialty Start Date End Date Citlaly Ramos DO [address] [place] [address] [place] [address] PCP - General Family Medicine 02/21/21 Miller Zamora MD [address] [place] [phone] Urology 02/21/21 Darryl Starr DO [address] [place] [address] Obstetrics and Gynecology 07/04/21 documented as of this encounter
--- OUTSIDE RECORDS SUMMARY | 2024-09-25 11:41 | XMS_ITS | Encounter Summary ---
Author Organization [facility] Health Address [address] [facility] [place] [address] Care Team Providers Care Alcohol Rubber Name Role Phone TierraCitlaly avalos Primary Care Provider [phone] Miller Zamora MD Unavailable [phone] Darryl Starr DO Unavailable Encounter Details Date Type Department Care Team (Late st Contact Info) Description 07/22/2021 Orders Only [facility] - NARROW FABRIC CALENDERER [address] [place] [address] Libby Rod APRN-BABY STROLLER RENTAL CLERK [address] [place] [address] Social History Tobacco Use Types Packs/Day Years [...] on filedocumented in this encounter Care Teams Alcohol Rubber Relationship Specialty Start Date End Date Citlaly Ramos DO [address] [facility] [address] PCP - General Family Medicine 02/21/21 Miller Zamora MD [address] [place] [address] Urology 02/21/21 Darryl Starr DO [address] [facility] [place] [address] Obstetrics and Gynecology 07/04/21 documented as of this encounter
--- OUTSIDE RECORDS SUMMARY | 2024-09-25 11:41 | XMS_ITS | Encounter Summary ---
Author Organization [facility] Address [address] [facility] [place] [address] Care Team Providers Care Network Relations Consultant Name Role Phone Citlaly Ramos DO Primary Care Provider [phone] Miller Zamora MD Unavailable Darryl Starr DO Unavailable Reason for Visit * Reason Onset Date Comments Order 07/19/2021 Encounter Details Date Type Department Care Team (Late st Contact Info) Description 07/19/2021 Telephone [facility] - Family Medicine [address] [place] [address] Citlaly Ramos DO [address] [facility] [address] [place] [address] Order Social History Tobacco Use Types Packs/Day Years [...] encounter Miscellaneous Notes * Telephone Encounter - Eulalia Pressley RN - 07/19/2021 9:21 AM CST Notified pt ok to do the PPD or the TB gold blood test. Pt requested to have TB Gold blood test, ordered. Pt will have completed when she comes into the office today. MOTIVE SWITCH OPERATOR * Telephone Encounter - Alina Harvey APRN-CNP - 07/19/2021 8:54 AM LOCOMOTIVE SWITCH OPERATOR Ok for TB test- we can do the PPD or the TB gold blood test MOTIVE SWITCH OPERATOR * Telephone Encounter - Alia Martinez RN - 07/19/2021 8:50 AM CST Patient is coming in today to leave urine specimen with obgyn office. She is also on their schedule for TB test, but they don't do TB testing. Are we able to let her get the TB test done here today on [place] schedule? Or can we order the TB blood test for her? Pt scheduled for 10:30 with obgyn office. Let patient know. MOTIVE SWITCH OPERATOR documented in this encounter Plan of Treatment Scheduled Orders Name Type Priority Associated Diagnoses Orde r Schedule QUANTIFERON-TB GOLD PLUS 4-TUBE Lab Routine Screening-pulmonary TB Ordered: 07/19/2021 documented as of this encounter Visit Diagnoses Diagnosis Screening-pulmonary TB- Primary Screening examination for pulmonary tuberculosis documented in this encounter Care Teams Network Relations Consultant Relationship Specialty Start Date End Date Citlaly Ramos DO [facility] [place] [address] PCP - General Family Medicine 02/21/21 Miller Zamora MD [address] [place] [address] Urology 02/21/21 Darryl Starr DO [address] [facility] [place] [address] Obstetrics and Gynecology 07/04/21 documented as of this encounter
--- OUTSIDE RECORDS SUMMARY | 2024-09-25 11:41 | XMS_ITS | Encounter Summary ---
Author Organization [facility] Address [address] [place] [address] Care Team Providers Care Director Immunology Name Role Phone TierraCitlaly avalos Primary Care Provider [phone] Miller Zamora MD Unavailable [phone] Darryl Starr DO Unavailable Reason for Visit * Reason Comments Nurse Only Encounter Details Date Type Department Care Team (Latest Contact Info) Description 08/08/2021 1:30 PM SAFETY PIN ASSEMBLING MACHINE OPERATOR Clinical Support [facility] Medical [facility] - SHADOWGRAPH OPERATOR [address] [place], [place] [id number] Trichomonas infection Social History Tobacco Use Types Packs/Day Years [...] Progress Notes * Devora Dennis MA - 08/08/2021 1:28 PM CST Pt left urine sample for PAMELLA trich. TY PIN ASSEMBLING MACHINE OPERATOR documented in this encounter Plan of Treatment Not on file documented as of this encounter Procedures Procedure Name Priority Date/Time Associated Diagnosis Comments CHLAMYDIA + GC + TRICH DNA AMPL Routine 08/08/2021 1:34 PM SAFETY PIN ASSEMBLING MACHINE OPERATOR Trichomonas infection documented in this encounter Results * CHLAMYDIA + GC + TRICH DNA AMPL (08/08/2021 1:34 PM SAFETY PIN ASSEMBLING MACHINE OPERATOR) Chlamydia trachomatis JOSHUA Negative Negative [facility] INSURANCE BILL GC DNA Probe Negative Negative [facility] INSURANCE BILL Trichomonas vaginalis by JOSHUA Negative Negative [facility] INSURANCE BILL Microbiology URINE / Unknown 08/08/2021 1 :34 PM SAFETY PIN ASSEMBLING MACHINE OPERATOR 08/08/2021 Narrative Resulting Agency Comment Lab Testing performed at: [facility] ??[place] [id number] Libby Rod APRN-MACHINE MOLDER LAB - MICROBI OLOGY ORDERABLES [facility] INSURANCE BILL [address] [place] [address] documented in this encounter Visit Diagnoses Diagnosis Trichomonas infection- Primary Trichomoniasis, unspecified documented in this encounter Care Teams Director Immunology Relationship Specialty Start Date End Date Citlaly Ramos DO [address] [place] [address] PCP - General Family Medicine 02/21/21 Miller Zamora MD [address] [place] [address] Urology 02/21/21 Darryl Starr DO [address] [place] [address] Obstetrics and Gynecology 07/04/21 documented as of this encounter
--- OUTSIDE RECORDS SUMMARY | 2024-09-25 11:41 | XMS_ITS | Encounter Summary ---
Author Organization [facility] Health Address [address] [facility] [place] [address] Care Team Providers Care Serger Name Role Phone TheresaAnkita modiron GUZMAN Primary Care Provider [phone] Miller Zamora MD Unavailable [phone] Darryl Starr DO Unavailable Reason for Visit * Reason Comments Pain Flank Pt presents with c/o constanst right flank pain. Pt says she has a hx of kidney stones with lithotripsy done and stent placement in January. Pt says she was supposed to have stent out, but has not made the appt. Pt c/o urgency and hematuria. Denies fever, chills, vomiting, diarrhea. Encounter Details Date Type Department Care Team (Late st Contact Info) Description 09/09/2021 9:36 PM FUEL HOUSE ATTENDANT - 09/09/2021 9:37 PM [facility] Emergency [facility] [address] [place] [phone] Flank pain Discharge Disposition: Left Against Medical Advice/Discontinued Care Social History Tobacco Use Types Packs/Day [...] Sign Reading Time Taken Comments Blood Pressure 124/73 09/09/2021 2:09 PM FUEL HOUSE ATTENDANT Pulse 102 09/09/2021 2:09 PM FUEL HOUSE ATTENDANT Temperature 36.3 ??C (97.4 ??F) 09/09/2021 2:09 PM CS T Respiratory Rate 12 09/09/2021 2:09 PM FUEL HOUSE ATTENDANT Oxygen Saturation 99% 09/09/2021 2:09 PM FUEL HOUSE ATTENDANT Inhaled Oxygen Concentration - - Weight 85.7 kg (189 lb) 09/09/2021 2:09 PM FUEL HOUSE ATTENDANT Height 162.6 cm (5' 4 ) 09/09/2021 2:09 PM FUEL HOUSE ATTENDANT Body Mass Index 32.44 09/09/2021 2:09 PM FUEL HOUSE ATTENDANT documented in this encounter Functional Status Functional [...] No 04/03/2014 documented as of this encounter Medications at Time of Discharge [...] mouth 2 times daily 14 tablet 07/22/2021 triamcinolone acetonide (KENALOG) 0.5 % ointmentIndications:Ecz kristie, unspecified type Apply to affected area 2 times daily as needed 15 g 1 02/21/2021 escitalopram (LEXAPRO) 10 MG tabletIndications:Depre ssion with anxiety Take 1 (one) tablet by mouth once daily 30 tablet 2 07/04/2021 12/22/2021 traZODone (DESYREL) 50 MG tabletIndications:Depre ssion with anxiety Take 1 (one) tablet by mouth nightly as needed for Insomnia 30 tablet 07/04/2021 12/22/2021 documented as of this encounter ED Notes * Malick Gregory - 09/09/2021 9:33 PM CST Call x 2 for labs. Unable to find patient HOUSE ATTENDANT * Aliza Hughes - 09/09/2021 5:43 PM CST Call x1 for labs no answer HOUSE ATTENDANT * Shaista Aldana RN - 09/09/2021 2:34 PM CST Pt presents with c/o constanst right flank pain. Pt says she has a hx of kidney stones with lithotripsy done and stent placement in January. Pt says she was supposed to have stent out, but has not made the appt. Pt c/o urgency and hematuria. Denies fever, chills, vomiting, diarrhea. HOUSE ATTENDANT documented in this encounter Plan of Treatment Not on file documented as of this encounter Visit Diagnoses Diagnosis Flank pain Abdominal pain, unspecified site documented in this encounter Care Teams Serger Relationship Specialty Start Date End Date Citlaly Ramos DO [address] [place] [phone] PCP - General Family Medicine 02/21/21 Miller Zamora MD [address] [address] Urology 02/21/21 Darryl Starr DO [address] [place] [address] Obstetrics and Gynecology 07/04/21 documented as of this encounter
--- OUTSIDE RECORDS SUMMARY | 2024-09-25 11:41 | XMS_ITS | Encounter Summary ---
Author Organization [facility] Address [address] [facility] [place] [address] Care Team Providers Care Door Machine Operator Name Role Phone TierraCitlaly avalos Primary Care Provider [phone] Miller Zamora MD Unavailable [phone] Darryl Starr DO Unavailable Reason for Visit * Reason Onset Date Comments YEAST INFECTION 08/08/2021 Encounter Details Date Type Department Care Team (Late st Contact Info) Description 08/08/2021 Telephone [facility] - LEATHER SCRUBBER [address] [place] [address] Libby Rod APRN-GENERAL PRODUCTION LABORER [address] [place] [address] YEAST INFECTION Social History Tobacco Use Types Packs/Day Years [...] encounter Miscellaneous Notes * Telephone Encounter - Suzy, December - 08/08/2021 1:23 PM CST Patient notified CAD DRAFTSMAN * Telephone Encounter - Libby Rod APRN-CNP - 08/08/2021 1:14 PM AUTOCAD DRAFTSMAN Diflucan ordered. Follow up appointment needed if no improvement. CAD DRAFTSMAN * Telephone Encounter - Alina Herrera - 08/08/2021 10:52 AM CST Vaginal Problem : No EMPLOYEE RELATION MANAGER: Yes Onset: 3 days Vaginal Itching: Yes Vaginal burning: No Vaginal discharge: Yes Is discharge thick, watery, or clumpy: Thick, white in color Malodorous: No Vaginal bleeding: No Vaginal lesions: No Recent sexual intercourse: No Pain during intercourse: N/A OTC Medications used: No Datreion Deven Rivers called the office to schedule a PAMELLA. She also states she developed a yeast infection from recent abx and asked for Diflucan, please. Verified allergies and pharmacy. Pended medication. Requested Prescriptions Pending Prescriptions Disp Refills ??? fluconazole (DIFLUCAN) 150 MG tablet 1 tablet 1 Sig: Take 1 (one) tablet by mouth once for 1 dose CAD DRAFTSMAN documented in this encounter Plan of Treatment Not on file documented as of this encounter Visit Diagnoses Not on filedocumented in this encounter Care Teams Door Machine Operator Relationship Specialty Start Date End Date Citlaly Ramos DO [facility] [place] [phone] PCP - General Family Medicine 02/21/21 Miller Zamora MD [address] [place] [address] Urology 02/21/21 Darryl Starr DO [address] [facility] [place] [address] Obstetrics and Gynecology 07/04/21 documented as of this encounter
--- OUTSIDE RECORDS SUMMARY | 2024-09-25 11:41 | XMS_ITS | Encounter Summary ---
Author Organization [facility] Health Address [address] [facility] [place] [address] Care Team Providers Care Trading Floor Operator Name Role Phone TheresaAnkita modiron GUZMAN Primary Care Provider [phone] Miller Zamora MD Unavailable [phone] Darryl Starr DO Unavailable Encounter Details Date Type Department Care Team (Latest Contact Info) Description 07/05/2021 Travel Social History Tobacco Use Types Packs/Day Years [...] on filedocumented in this encounter Care Teams Trading Floor Operator Relationship Specialty Start Date End Date Citlaly Ramos DO [address] [facility] [address] PCP - General Family Medicine 02/21/21 Miller Zamora MD [address] [place] [address] Urology 02/21/21 Darryl Starr DO [address] [place] [address] Obstetrics and Gynecology 07/04/21 documented as of this encounter
--- OUTSIDE RECORDS SUMMARY | 2024-09-25 11:41 | XMS_ITS | Encounter Summary ---
Author Organization [facility] Address [address] [place] [address] Care Team Providers Care Professor Of Social Work Name Role Phone TheresaAnkita modiron GUZMAN Primary Care Provider [phone] Miller Zamora MD Unavailable [phone] Darryl Starr DO Unavailable Reason for Visit * Reason Onset Date Comments Results 07/05/2021 Encounter Details Date Type Department Care Team (Late st Contact Info) Description 07/05/2021 Telephone [facility] - PACKAGE COLLECTOR [address] [place] [address] Darryl Starr DO [address] [place] [address] Results Social History Tobacco Use Types Packs/Day Years [...] encounter Miscellaneous Notes * Telephone Encounter - Nadine De León RN - 07/05/2021 3:43 PM CDT Patient notified. Verbalized understanding. All questions answered. PAMELLA appt scheduled. * Telephone Encounter - Darryl Starr DO - 07/05/2021 3:24 PM CDT RX SENT PLEASE VERIFY PATIENT GOT IT. * Telephone Encounter - Olga Gaffney MA - 07/05/2021 11:28 AM CDT Pt calling regarding vag swab from 07/01/21 Pt also called to update pharmacy. documented in this encounter Plan of Treatment Not on file documented as of this encounter Visit Diagnoses Not on filedocumented in this encounter Care Teams Professor Of Social Work Relationship Specialty Start Date End Date Citlaly Ramos DO [address] [place] [address] [place] [address] PCP - General Family Medicine 02/21/21 Miller Zamora MD [address] [place] [address] Urology 02/21/21 Darryl Starr DO [address] [place] [address] Obstetrics and Gynecology 07/04/21 documented as of this encounter
--- OUTSIDE RECORDS SUMMARY | 2024-09-25 11:42 | XMS_ITS | Encounter Summary ---
Author Organization [facility] Address [address] [facility] [place] [address] Care Team Providers Care Glazier Metal Furniture Name Role Phone TierraCitlaly avalos Primary Care Provider [phone] Miller Zamora MD Unavailable [phone] Encounter Details Date Type Department Care Team (Latest Contact Info) Description 07/03/2021 Travel Social History Tobacco Use Types Packs/Day Years Used Date Smoking Tobacco: Every Day Cigarettes 0.3 6 Smokeless Tobacco: Never Alcohol Use Standard Drinks/Week Comments Yes 0 [...] have Coronavirus / COVID-19? No / Unsure 07/03/2021 11:33 AM CDT documented as of this encounter Functional [...] on filedocumented in this encounter Care Teams [employer] Furniture Relationship Specialty Start Date End Date Citlaly Ramos DO [address] [place] [phone] PCP - General Family Medicine 02/21/21 Miller Zamora MD [address] [place] [phone] Urology 02/21/21 documented as of this encounter
--- OUTSIDE RECORDS SUMMARY | 2024-09-25 11:42 | XMS_ITS | Encounter Summary ---
Author Organization [facility] Address [address] [facility] [place] [address] Care Team Providers Care Slag Production Worker Name Role Phone Citlaly Ramos DO Primary Care Provider Miller Zamora MD Unavailable [phone] Darryl Starr DO Unavailable Reason for Visit * Reason Comments Sleep Problem trouble falling asle ep and staying asleep Encounter Details Date Type Department Care Team (Late st Contact Info) Description 07/04/2021 9:30 AM CDT Video Visit [facility] - Family Medicine [address] [facility] [place], [place] [id number] Citlaly Ramos DO [address] [place] [address] Depression with anxiety Social History Tobacco Use Types Packs/Day Years [...] AM CDT documented as of this encounter Last Filed Vital Signs Vital Sign Reading Time Taken Comments Blood Pressure - - Pulse - - Temperature - - Respiratory Rate - - Oxygen Saturation - - Inhaled Oxygen Concentration - - Weight 90.7 kg (200 lb) 07/04/2021 9:33 AM CDT Height 162.6 cm (5' 4 ) 07/04/2021 9:33 AM CDT Body Mass Index 34.33 07/04/2021 9:33 AM CDT documented in this encounter Functional Status Functional [...] as of this encounter Progress Notes * Citlaly Ramos DO - 07/04/2021 9:38 AM CDT Today's visit was conducted virtually due to COVID-19 countermeasures. The patient has given verbalconsent to have today's visit conducted by this same means with treatment provided remotely. The patient verbally consents to the billing and collection practices of [facility]. Patient location: Home This encounter was performed using: audio and video SUBJECTIVE: Chief Complaint Patient presents with ??? Sleep Problem trouble falling asleep and staying asleep was started on lexapro and trazodone prn at in February and referred to psychiatry due to failure ofmultiple meds in the past. Has been on multiple medications in the past, without help. . Has also tried celexa, zoloft, prozacwithout relief. Sleep is terrible, unable to rest and fall asleep Single. 2 kids. 10, and 6 year old States only took the medicine for a couple of months and then ran out and didn't follow up. Never made appointment with psychiatrist. Struggling again with depression, low mood and anxiety symptoms. Denies SI. States did feel better when she was taking the medication and did not have any side effects on the lexapro. ROS as in HPI I have reviewed allergies and med list. Ht 1.626 m (5' 4 ) Wt 90.7 kg (200 lb) BMI 34.33 kg/m2 Body mass index is 34.33 kg/m??. Physical Examination: General appearance - alert, well appearing, and in no distress Mental status - alert, oriented to person, place, and time ASSESSMENT/PLAN: ICD-10-CM 1. Depression with anxiety F41.8 escitalopram (LEXAPRO) 10 MG tablet traZODone (DESYREL) 50 MG tablet restart meds as she tolerated them before. Emphasized importance of follow up and not stopping medications. Will send her list of therapists and psychiatrists and she will let us know when her follow up appointments are and follow up with us in 4 to 6 weeks on how she's doing. * Susana Daniel MA - 07/04/2021 9:28 AM CDT Can't fall asleep until 2 am or 3 am. When she does fall asleep, she is still tossing and turning during sleep and wakes up feeling tired. documented in this encounter Plan of Treatment Not on file documented as of this encounter Visit Diagnoses Diagnosis Depression with anxiety- Primary Dysthymic disorder documented in this encounter Care Teams Slag Production Worker Relationship Specialty Start Date End Date Citlaly Ramos DO [address] [place] [phone] PCP - General Family Medicine 02/21/21 Miller Zamora MD [address] OF [place] [address] Urology 02/21/21 Darryl Starr DO [address] [place] [address] Obstetrics and Gynecology 07/04/21 documented as of this encounter
--- OUTSIDE RECORDS SUMMARY | 2024-09-25 11:42 | XMS_ITS | Encounter Summary ---
Author Organization [facility] Address [address] [facility] [place] [address] Care Team Providers Care Electro Mechanic Name Role Phone Rachel Citlaly GUZMAN Primary Care Provider [phone] Miller Zamora MD Unavailable [phone] Reason for Visit * Reason Onset Date Comments MEDICATION REFILL 07/03/2021 Encounter Details Date Type Department Care Team (Late st Contact Info) Description 07/03/2021 Refill [facility] - Family Medicine [address] [place] [address] Citlaly Ramos DO [address] [facility] [address] [place] [address] MEDICATION REFILL Social History Tobacco [...] encounter Miscellaneous Notes * Telephone Encounter - Leora Rocha MA - 07/03/2021 2:08 PM CDT Had to create new message-see previous encounter. documented in this encounter Plan of Treatment Not on file documented as of this encounter Visit Diagnoses Diagnosis Depression with anxiety Dysthymic disorder documented in this encounter Care Teams Electro Mechanic Relationship Specialty Start Date End Date Citlaly Ramos DO [address] [place] [phone] PCP - General Family Medicine 02/21/21 Miller Zamora MD [address] [place] [address] Urology 02/21/21 documented as of this encounter
--- OUTSIDE RECORDS SUMMARY | 2024-09-25 11:42 | XMS_ITS | Encounter Summary ---
Author Organization [facility] Address [address] [facility] [place] [address] Care Team Providers Care Mailroom Coordinator Name Role Phone Citlaly Ramos DO Primary Care Provider [phone] Miller Zamora MD Unavailable [phone] Darryl Starr DO Unavailable Encounter Details Date Type Department Care Team (Late st Contact Info) Description 07/04/2021 Orders Only [facility] - Family Medicine [address] [place] [address] Citlaly Ramos DO [address] [facility] [address] [place] [address] Iron deficiency anemia, unspecified iron [...] as of this encounter Plan of Treatment Scheduled Orders Name Type Priority Associated Diagnoses Orde r Schedule CBC WITH DIFFERENTIAL Lab Routine Iron deficiency anemia, unspecified iron deficiency anemia type Expected: 10/04/2021, Expires: 10/04/2022 FERRITIN Lab Routine Iron deficiency anemia, unspecified iron deficiency anemia type Expected: 10/04/2021, Expires: 10/04/2022 IRON + TIBC PANEL Lab Routine Iron deficiency anemia, unspecified iron deficiency anemia type Expected: 10/04/2021, Expires: 10/04/2022 documented as of this encounter Visit Diagnoses Diagnosis Iron deficiency anemia, unspecified iron deficiency anemia type- Primary documented in this encounter Care Teams Mailroom Coordinator Relationship Specialty Start Date End Date Citlaly Ramos DO [address] [facility] [place] [phone] PCP - General Family Medicine 02/21/21 Miller Zamora MD [address] [place] [phone] Urology 02/21/21 Darryl Starr DO [address] [facility] [phone] Obstetrics and Gynecology 07/04/21 documented as of this encounter
--- OUTSIDE RECORDS SUMMARY | 2024-09-25 11:42 | XMS_ITS | Encounter Summary ---
Author Organization [facility] Address [address] [facility] [place] [address] Care Team Providers Care Faith Healer Name Role Phone RachelAnkitaron GUZMAN Primary Care Provider [phone] Miller Zamora MD Unavailable [phone] Reason for Visit * Reason Onset Date Comments MEDICATION REFILL 07/02/2021 MEDICATION REFILL 07/03/2021 Encounter Details Date Type Department Care Team (Late st Contact Info) Description 07/02/[address] [facility] - Family Medicine [address] [facility] [place] [address] Citlaly Ramos, DO [address] [facility] [address] [place] [address] MEDICATION REFILL; MEDICATION REFILL Social History Tobacco Use Types Packs/Day Years Used Date Smoking Tobacco: Every Day Cigarettes 0.3 6 Smokeless Tobacco: Never Alcohol Use Standard Drinks/Week Comments Yes 0 (1 standard drink = 0.6 oz pur e alcohol) occ Sex and Gender Information Value Date Recorded [...] Telephone Encounter - Leora Rocha MA - 07/02/2021 3:54 PM CDT Last visit: 02/21/21 Future visit: none Date last filled: 02/21/21 Tramadol already is pending on result note. documented in this encounter Plan of Treatment Not on file documented as of this encounter Visit Diagnoses Not on filedocumented in this encounter Care Teams Faith Healer Relationship Specialty Start Date End Date Citlaly Ramos DO [address] [place] [phone] PCP - General Family Medicine 02/21/21 Miller Zamora MD [address] [place] [address] Urology 02/21/21 documented as of this encounter
--- OUTSIDE RECORDS SUMMARY | 2024-09-25 11:43 | XMS_ITS | Encounter Summary ---
Author Organization [facility] Address [address] [facility] [place] [address] Care Team Providers Care Core Layer Machine Operator Name Role Phone Rachel Citlaly GUZMAN Primary Care Provider [phone] Miller Zamora MD Unavailable [phone] Reason for Visit * Reason Comments Establish Care Complete Physical Exam Encounter Details Date Type Department Care Team (Late st Contact Info) Description 02/21/2021 7:45 AM CDT Office Visit [facility] - Family Medicine [address] [place] [address] Citlaly Ramos DO [address] [facility] [address] [place] [address] Well adult exam (Primary Dx); Depression with anxiety; Eczema, unspecified type Social History Tobacco Use Types Packs/Day [...] Sign Reading Time Taken Comments Blood Pressure 112/68 02/21/2021 7:50 AM CDT Pulse 99 02/21/2021 7:50 AM CDT Temperature - - Respiratory Rate - - Oxygen Saturation 99% 02/21/2021 7:50 AM CDT Inhaled Oxygen Concentration - - Weight 88.9 kg (196 lb) 02/21/2021 7:50 AM CDT Height 163.8 cm (5' 4.5 ) 02/21/2021 7:50 AM CDT Body Mass Index 33.12 02/21/2021 7:50 AM CDT documented in this encounter Functional [...] Progress Notes * Citlaly Ramos DO - 02/21/2021 7:56 AM CDT SUBJECTIVE: Chief Complaint Patient presents with ??? Establish Care ??? Complete Physical Exam history of horseshoe kidney , history of kidney stones. History of 2 lithotripsy. Last one january 14. Single. 2 kids. 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 History of depression/anxiety. Didn't do well with wellbutrin in the past, has tried nicotine patch, not chantix. Has been on multiple medications in the past, without help. Was seeing a therapist for a while. Hasalso tried celexa, zoloft, prozac without relief. Sleep is terrible, unable to rest and fall asleep. Severe eczema ROS as in HPI I have reviewed allergies and med list. BP 112/68 (BP SITE: LEFT ARM, BP POSITION: SITTING, BP CUFF SIZE: 12) Pulse 99 Ht 1.638 m (5' 4.5 )Wt 88.9 kg (196 lb) SpO2 99% BMI 33.12 kg/m2 Body mass index is 33.12 kg/m??. Physical Examination: General appearance - alert, well appearing, and in no distress Mental status - alert, oriented to person, place, and time Neck - supple, no significant adenopathy Chest - clear to auscultation, no wheezes, rales or rhonchi, symmetric air entry Heart - normal rate, regular rhythm, normal S1, S2, no murmurs, rubs, clicks or gallops Abdomen - soft, nontender, nondistended, no masses or organomegaly Extremities - peripheral pulses normal, no pedal edema, no clubbing or cyanosis Skin - normal coloration and turgor, no rashes, no suspicious skin lesions noted ,eczema patches ASSESSMENT/PLAN: ICD-10-CM 1. Well adult exam Z00.00 CBC WITH DIFFERENTIAL COMPREHENSIVE METABOLIC PANEL TSH LIPID PROFILE REFLEX LDL DIRECT VITAMIN D 25-HYDROXY 2. Depression with anxiety F41.8 escitalopram (LEXAPRO) 10 MG tablet traZODone (DESYREL) 50 MG tablet 3. Eczema, unspecified type L30.9 triamcinolone acetonide (KENALOG) 0.5 % ointment list of derms given Start lexapro and trazodone. Referral to psych, concerned because of patient failing multiple meds in past, so I want her to establish just in case this regimen isn't working for her. Follow up vv in 4 weeks (lives in [facility]) * Susana Daniel MA - 02/21/2021 7:46 AM CDT Was previously on Citalopram but wasn't consistent with it because she didn't like the way it made her feel. Dr. Aicha Bucio about 3 years ago for Martín acevedo outpatient documented in this encounter Plan of Treatment Not on file documented as of this encounter Procedures Procedure Name Priority Date/Time Associated Diagnosis Comments LIPID PROFILE REFLEX LDL DIRECT Routine 02/21/2021 8:26 AM CDT Well adult exam VITAMIN D 25-HYDROXY Routine 02/21/2021 8:26 AM CDT Well adult exam CBC W AUTO DIFFERENTIAL Routine 02/21/2021 8:26 AM CDT Well adult exam COMPREHENSIVE METABOLIC PANEL Routine 02/21/2021 8:26 AM CDT Well adult exam TSH Routine 02/21/2021 8:26 AM CDT Well adult exam documented in this encounter Results * (ABNORMAL) VITAMIN D 25-HYDROXY (02/21/2021 8:26 AM CDT) Pathologist [facility] Vitamin D, 25 Hydroxy 17.1(L) 30 - 100 ng/mL [facility] ACCOUNT BILL Comment: Vitamin D Status: ?Deficiency ? <20 ? ng/mL ?Insufficiency ?? 20-30 ??ng/mL ?Sufficiency ? 30-100 ng/mL ?Toxicity ? >100 ?ng/mL FASTING Blood BLOOD SPECIMEN / Unknown 02/21/2021 8:26 AM CDT 02/21/2021 Narrative Resulting Agency Comment Lab Testing performed at: [facility] [address] [place] ?? [facility] [id number] Citlaly Ramos DO LAB - CHEMISTRY JOANNA YUNG [facility] ACCOUNT BILL [address] [place] [address] * (ABNORMAL) LIPID PROFILE REFLEX LDL DIRECT (02/21/2021 8:26 AM CDT) Pathologist [facility] Cholesterol 201(H) <200 mg/dL [facility] ACCOUNT BILL [...] Resulting Agency Comment Lab Testing performed at: [facility] [address] ?? [facility] [id number] Citlaly Ramos DO LAB - CHEMISTRY ORDE AGA Performing Organization Address City/[facility]/ZIP Co de Phone Number [facility] ACCOUNT BILL [address] [place] [address] * TSH (02/21/2021 8:26 AM CDT) TSH 1.8822 0.35 - 4.94 uIU/mL [facility] ACCOUNT BILL Comment:FASTING Blood BLOOD SPECIMEN / Unknown 02/21/2021 8:26 AM CDT 02/21/2021 Narrative Resulting Agency Comment Lab Testing performed at: [facility] [address] ?? [facility] [id number] Citlaly Ramos DO LAB - CHEMISTRY ORDE AGA Performing Organization Address City/[facility] Co de Phone Number [facility] ACCOUNT BILL [address] [place] [address] * COMPREHENSIVE METABOLIC PANEL (02/21/2021 8:26 AM CDT) Glucose 94 70 - 105 mg/dL [facility] ACCOUNT BILL BUN 11 7 - 18.7 mg/dL [facility] ACCOUNT BILL Creatinine 0.76 0.57 - 1.11 mg/dL [facility] ACCOUNT BILL eGFR by MDRD >60 >60 mL/min/1.7 3m2 [facility] ACCOUNT BILL eGFR by MDRD >60 >60 mL/min/1.7 3m2 [facility] ACCOUNT BILL Sodium 138 136 - 145 mmol/L [facility] ACCOUNT BILL Potassium 4.0 3.5 - 5.1 mmol/L [facility] ACCOUNT BILL Chloride 105 98 - 107 mmol/L [facility] ACCOUNT BILL CO2 27 23 - 31 mmol/L [facility] ACCOUNT BILL Calcium 8.9 8.4 - 10.4 mg/dL [facility] ACCOUNT BILL Protein Total 7.0 6.4 - 8.3 gm/dL [facility] ACCOUNT BILL Albumin 4.0 3.5 - 5.2 gm/dL [facility] ACCOUNT BILL Bilirubin Total 0.3 0.2 - 1.2 mg/dL [facility] ACCOUNT BILL Alkaline Phosphatase 60 40 - 150 U/L [facility] ACCOUNT BILL AST 12 5 - 34 U/L [facility] ACCOUNT BILL ALT 10 0 - 61 U/L [facility] ACCOUNT BILL Comment:FASTING Blood BLOOD SPECIMEN / Unknown 02/21/2021 8:26 AM CDT 02/21/2021 Narrative Resulting Agency Comment Lab Testing performed at: [address] ?? [facility] [id number] Citlaly Ramos DO LAB - CHEMISTRY JOANNA YUNG [facility] ACCOUNT BILL [address] [place] [address] * (ABNORMAL) CBC WITH DIFFERENTIAL (02/21/2021 8:26 AM CDT) WBC 7.4 4.4 - 10.7 x10E9/L [facility] ACCOUNT BILL RBC 4.39 3.80 - 5.20 x10E12/L [facility] ACCOUNT BILL Hemoglobin 11.4(L) 12.0 - 15.6 gm/dL [facility] ACCOUNT BILL Hematocrit 36.6 35.9 - 45.5 % [facility] ACCOUNT BILL MCV 83.4 80.7 - 98.3 fl [facility] ACCOUNT BILL MCH 26.0(L) 26.7 - 34.0 pg [facility] ACCOUNT BILL MCHC 31.1 30.8 - 35.9 gm/dL [facility] ACCOUNT BILL RDW 17.9(H) 12.1 - 14.9 % [facility] ACCOUNT BILL Platelet Count 385 153 - 416 x10E9/L [facility] ACCOUNT BILL Comment:MPV FL BLOOD ([facility]) 1 0.3 fl 9.4-12.9 Granulocytes % 59.6 44.0 - 73.0 % [facility] ACCOUNT BILL Lymphocytes % 22.8 20.0 - 43.0 % [facility] ACCOUNT BILL Monocytes % 11.5 5.0 - 13.0 % [facility] ACCOUNT BILL Eosinophils % 4.5 0.0 - 6.0 % [facility] ACCOUNT BILL Basophils % 0.7 0.0 - 2.0 % [facility] ACCOUNT BILL Granulocytes Absolute 4.42 2.01 - 7.14 x10E9/L [facility] ACCOUNT BILL Lymphocytes Absolute 1.69 1.07 - 3.94 x10E9/L [facility] ACCOUNT BILL Monocytes Absolute 0.85 0.26 - 1.07 x10E9/L [facility] ACCOUNT BILL Eosinophils Absolute 0.33 0 - 0.47 x10E9/L [facility] ACCOUNT BILL Basophils Absolute 0.05 0 - 0.08 x10E9/L [facility] ACCOUNT BILL Immature Granulocytes 0.9 0 - 1 % [facility] ACCOUNT BILL Immature Granulocytes Absolute 0.07(H) 0.00 - 0.06 x10E9/L [facility] ACCOUNT BILL nRBC 0 /100 WBC [facility] ACCOUNT BILL Comment:FASTING Blood BLOOD SPECIMEN / Unknown 02/21/2021 8:26 AM CDT 02/21/2021 Narrative Resulting Agency Comment Lab Testing performed at: [facility] [address] ?? [facility] [id number] Citlaly Ramos DO LAB - HEMATOLOGY ORD ERABLES [facility] ACCOUNT BILL [address] [place] [address] documented in this encounter Visit Diagnoses Diagnosis Well adult exam- Primary Routine general medical examination at a health care facility Depression with anxiety Dysthymic disorder Eczema, unspecified type documented in this encounter Care Teams Core Layer Machine Operator Relationship Specialty Start Date End Date Citlaly Ramos DO [address] [place] [phone] PCP - General Family Medicine 02/21/21 Miller Zamora MD [address] [place] [address] Urology 02/21/21 documented as of this encounter
--- OUTSIDE RECORDS SUMMARY | 2024-09-25 11:43 | XMS_ITS | Encounter Summary ---
Author Organization [facility] Address [address] [place] [address] Care Team Providers Care Histologic Aide Name Role Phone Citlaly Ramos Primary Care Provider [phone] Miller Zamora MD Unavailable [phone] Reason for Visit * Reason Comments Well Women Exam Encounter Details Date Type Department Care Team (Late st Contact Info) Description 07/01/2021 2:00 PM CDT Office Visit [facility] - CASH ACCOUNTANT [address] [place] [address] Darryl Starr DO [address] [place] [phone] Well woman exam (Primary Dx); Renal stone; Subacute vaginitis Social History Tobacco Use Types Packs/Day Years [...] Sign Reading Time Taken Comments Blood Pressure 122/70 07/01/2021 1:26 PM CDT Pulse - - Temperature - - Respiratory Rate - - Oxygen Saturation - - Inhaled Oxygen Concentration - - Weight 90.7 kg (200 lb) 07/01/2021 1:26 PM CDT Height 162.6 cm (5' 4 ) 07/01/2021 1:26 PM CDT Body Mass Index 34.33 07/01/2021 1:26 PM CDT documented in this encounter Functional Status [...] as of this encounter Progress Notes * Darryl Starr DO - 07/01/2021 1:56 PM CDT HISTORY Datreion Deven Rivers is a 31 year old female, Patient's last menstrual period was 06/22/2021., here for a well woman exam. Patient has no gynecological issues or concerns. Past BLACK BELT History: History of cervical dysplasia:none History of breast biopsy: none Last Pap: unknown Last mammogram: patient has never had a mammogram Contraception: IUD: ParaGard (copper), 2014 Past STD: trichomonas, chlamydia Menses: regular monthly cycle without intermenstrual spotting, 9 days - reports bleeding is gettingheavy and painful recently on Paragard IUD. C/o significant PMS/PMDD - emotional, mood changes, bloating Discussed hormonal contraception Additional information: Social History Substance and Sexual Activity Sexual Activity Not on file Other pertinent BLACK BELT history: Denies breast pain, discharge, skin changes, pelvic pain, discharge, dyspareunia Other pertinent history: I have reviewed the past medical and surgical history, social history, family history, problem list, allergies and medication lists. Past Medical History: Diagnosis Date ??? Asthma [...] pyelogram and possible right ureteral stent exchange Social History Socioeconomic History ??? Marital status: Single Spouse name: Not on file ??? Number of children: Not on file ??? Years of education: Not on file ??? Highest education level: Not on file Occupational History ??? Not on file Tobacco Use ??? Smoking status: Current Every Day Smoker Packs/day: 0.25 Years: 6.00 Pack years: 1.50 Types: Cigarettes ??? Smokeless tobacco: Never Used Vaping Use ??? Vaping Use: Never used Substance and Sexual Activity ??? Alcohol use: [...] on file Housing Stability: Not on file Family History Problem Relation Name Age of Onset ??? Hypertension Maternal Grandmother ??? Hypertension Mother Review of Systems General: Denies fever, chills, weight loss HEENT: Denies headache, changes in vision Chest: Denies chest pain, palpitations Respiratory: Denies shortness of breath, cough GI: Denies diarrhea, constipation, nausea, vomiting : Denies irregular bleeding, dysuria, dyspareunia Breast: Denies lumps, pain, tenderness, nipple discharge Endocrine: Denies hot flushes Musculoskeletal: Denies leg pain, edema Neurologic: Denies numbness/tingling in extremities EXAMINATION BP 122/70 Ht 5' 4 Wt 200 lb BMI 34.33 kg/m2 Body mass index is 34.33 kg/m??. General Appearance: alert, cooperative, no distress Neck: No masses, thyroid not enlarged. Lymph Nodes: No cervical, axillary, or inguinal adenopathy. Breasts: fibrocystic, symmetric, nontender, no masses or discharge Lungs: breath sounds normal and symmetric; no rales or wheezes Heart: regular rhythm, normal S1 and S2, without murmurs, gallops or rubs Abdomen: soft without mass, non-tender, with normal bowel sounds Pelvic: Vulva- no lesions, normal hair distribution. Urethra: No abnormalities. Bladder: Non tender. Vagina- no discharge or lesions. Cervix without lesion or discharge, IUD string in place Bimanual exam reveals normal uterus and adnexa. No adnexal masses Extremities: no clubbing, cyanosis or edema Rectal: no hemorrhoid ASSESSMENT Encounter Diagnoses Name Primary? Well woman exam Yes ??? Renal stone ??? Subacute vaginitis Patient Active Problem List Diagnosis Date Noted ??? Nephrolithiasis 11/24/2020 Priority: Not Prioritized ??? GBS (group B streptococcus) UTI complicating 08/07/2014 PLAN See orders, medications, patient instructions. Diet, exercise, and weight management discussed. Breast self exam reviewed, patient encouraged to perform monthly. Safe sex discussed. Contraception was discussed. Gardasil was discussed - completed H/o frequent kidney stone - referred to Urology as requested Orders Placed This Encounter ??? VAGINITIS PLUS (BV CA CT NG TRICH) ??? AMB REFERRAL TO UROLOGY ??? PAP IG LB RFLX HPV APTIMA ASCU Darryl Starr DO documented in this encounter Plan of Treatment Not on file documented as of this encounter Procedures Procedure Name Priority Date/Time Associated Diagnosis Comments VAGINITIS PLUS (BV CA CT NG TRICH) Routine 07/01/2021 4:04 PM CDT Subacute vaginitis PAP IG LB RFLX HPV APTIMA ASCU Routine 07/01/2021 4:04 PM CDT Well woman exam documented in this encounter Results * (ABNORMAL) VAGINITIS PLUS (BV CA CT [...] developed and its performance characteristics determined by [facility]. ??It has not been cleared or approved [...] BILL - 07/04/2021 11:06 PM CDT Test(s) 685287-Syymboc albicans, JOSHUA; 564020-Xvfllfn glabrata, JOSHUA was developed and its performance characteristics determined by [facility]. It has not been cleared or approved by the Food and Drug Administration. Resulting Agency Comment Lab Testing performed at: [address] ??[place] [id number] Darryl Starr DO LAB - MICROBIOLOGY O RDERABLES [facility] INSURANCE BILL [address] [place] [address] * PAP IG LB RFLX HPV APTIMA ASCU (07/01/2021 4:04 PM CDT) Diagnosis [facility] INSURANCE BILL Comment: NEGATIVE FOR INTRAEPITHELIAL LESION OR MALIGNANCY. TRICHOMONAS VAGINALIS IS PRESENT. Specimen Adequacy [facility] INSURANCE BILL Comment: Satisfactory for evaluation. ??Endocervical and/or squamous metaplastic cells (endocervical component) are present. Clinician Provided ICD10 [facility] INSURANCE BILL Comment: Z01.419 N20.0 N76.1 Performed by [facility] INSURANCE BILL Comment:Libby montgomery, Executive Sous Chef (ASCP) Comment . [facility] INSURANCE BILL Note [...] use of an image guided system. Note [facility] INSURANCE BILL Comment: The HPV DNA reflex criteria were not met with this specimen result therefore, no HPV testing was performed. ? . Pathology/Cytolog y PART OF UTERINE CERVIX / Unknown 07/01/2021 4:04 PM CDT 07/02/2021 Narrative [facility] INSURANCE BILL - 07/03/2021 5:08 PM CDT No. of containers..01 ThinPrep Vial Resulting Agency Comment Lab Testing performed at: [address] ??[place] [id number] Darryl Starr DO LAB - PATHOLOGY/CYTO LOGY ORDERABLES [facility] INSURANCE BILL [address] [place] [address] documented in this encounter Visit Diagnoses Diagnosis Well woman exam- Primary Routine general medical examination at a health care facility Renal stone Calculus of kidney Subacute vaginitis documented in this encounter Care Teams Histologic Aide Relationship Specialty Start Date End Date Citlaly Ramos DO [address] [place] [phone] PCP - General Family Medicine 02/21/21 Miller Zamora MD [address] [place] [address] Urology 02/21/21 documented as of this encounter
--- OUTSIDE RECORDS SUMMARY | 2024-09-25 11:43 | XMS_ITS | Encounter Summary ---
Author Organization [facility] Health Address [address] [facility] [place] [address] Care Team Providers Care Numerical Analysis Group Manager Name Role Phone Citlaly Ramos Primary Care Provider [phone] Miller Zamora MD Unavailable [phone] Encounter Details Date Type Department Care Team (Late st Contact Info) Description 02/21/2021 Orders Only [facility] - Family Medicine [address] [place] [address] Libby Giang RN Social History Tobacco Use Types Packs/Day Years [...] on filedocumented in this encounter Care Teams Numerical Analysis Group Manager Relationship Specialty Start Date End Date Citlaly Ramos DO [address] [place] [phone] PCP - General Family Medicine 02/21/21 Miller Zamora MD [address] [place] [phone] Urology 02/21/21 documented as of this encounter
--- OUTSIDE RECORDS SUMMARY | 2024-09-25 11:43 | XMS_ITS | Encounter Summary ---
Author Organization [facility] Health Address [address] [place] [address] Care Team Providers Care Cessation Systems Outreach Specialist Name Role Phone Citlaly Ramos DO Primary Care Provider [phone] Miller Zamora MD Unavailable [phone] Reason for Visit * Reason Comments Refill Request Encounter Details Date Type Department Care Team (Late st Contact Info) Description 07/01/2021 Refill [facility] - Family Medicine [address] [facility] [address] Citlaly Ramos DO [address] [facility] [place] [address] Refill Request Social History Tobacco Use Types [...] Encounter - Leora Rocha MA - 07/03/2021 2:07 PM CDT Had to create new message to send RX. * Telephone Encounter - Citlaly Ramos DO - 07/03/2021 11:48 AM CDT Ok to fill, but for some reason, it wouldn't let me fill with the pharmacy? * Telephone Encounter - Leora Rocha MA - 07/03/2021 11:36 AM CDT VV appt made. OK to fill Trazadone or wait? * Telephone Encounter - Citlaly Ramos DO - 07/03/2021 10:12 AM CDT Schedule VV * Telephone Encounter - Alia Martinez RN - 07/02/2021 3:09 PM CDT Patient notified. Says she is doing ok, but still not able to sleep well. Says she finally is able to fall asleep about 3 or 4 am every night and when she is asleep, she tosses and turns frequently. She has not est with psych yet. She is trying to figure out who she is going to see. No appt set up as of now. She said trazodone worked well for her initially, but not working well now. She stopped taking it every night though. She is unsure if she needs to try a different med. Please advise. * Telephone Encounter - Citlaly Ramos DO - 07/02/2021 1:39 PM CDT Patient no showed for last visit. How's he doing, has he established with psychiatry yet? * Telephone Encounter - Maris Burnham RN - 07/02/2021 12:31 PM CDT MEDICATION FILLED PER PROTOCOL-trazodone Last Office Visit with PCP: 02/21/2021-est care Last Video Visit with PCP: Visit date not found Next Appointment with PCP: Visit date not found No Show 03/26/2021( letter out) Follow-up: 1 month ( could be VV) Disposition of prescription: Routed to PCP to sign if appropriate --------- Scheduling Team: Please schedule patient for an appointment with Citlaly Ramos DO for chronic condition and medication management. Patient was due for 1 month follow up around 03/23/2021 for Depression No Show 03/26/2021( letter out) documented in this encounter Plan of Treatment Not on file documented as of this encounter Visit Diagnoses Diagnosis Depression with anxiety Dysthymic disorder documented in this encounter Care Teams Cessation Systems Outreach Specialist Relationship Specialty Start Date End Date Citlaly Ramos DO [address] [place] [phone] PCP - General Family Medicine 02/21/21 Miller Zamora MD [address] [place] [phone] Urology 02/21/21 documented as of this encounter
--- OUTSIDE RECORDS SUMMARY | 2024-09-25 11:43 | XMS_ITS | Encounter Summary ---
Author Organization [facility] Health Address [address] [place] [address] Care Team Providers Care Electric Screw Driver Operator Name Role Phone Citlaly Ramos Primary Care Provider [phone] Miller Zamora MD Unavailable [phone] Encounter Details Date Type Department Care Team (Late st Contact Info) Description 02/21/2021 Orders Only [facility] - Family Medicine [address] [place] [address] Libby Giang RN Anemia, unspecified type Social History Tobacco Use Types [...] Procedure Name Priority Date/Time Associated Diagnosis Comments IRON + TIBC PANEL Routine 07/01/2021 2:3 6 PM CDT Anemia, unspecified type VITAMIN B12 FOLATE PANEL Routine 07/01/2021 2:36 PM CDT Anemia, unspecified type FERRITIN Routine 07/01/2021 2:36 PM CDT Anemia, unspecified type documented in this encounter Results * VITAMIN B12 FOLATE PANEL (07/01/2021 2:36 PM CDT) Vitamin B12 587 213 - 816 pg/mL [facility] ACCOUNT BILL Folate 10.4 7.0 - 31.4 ng/mL [facility] ACCOUNT BILL Blood BLOOD SPECIMEN / Unknown 07/01/2021 2:36 PM CDT 07/01/2021 Narrative Resulting Agency Comment Lab Testing performed at: [facility] [address] ?? [facility] [id number] Citlaly Ramos DO LAB - CHEMISTRY JOANNA YUNG Performing Organization Address City/State/[facility] Co de Phone Number [facility] ACCOUNT BILL [address] [place] [address] * (ABNORMAL) IRON + TIBC PANEL (07/01/2021 [...] Resulting Agency Comment Lab Testing performed at: [facility] [address] [place] [address] Road ??[facility] [id number] Citlaly Ramos DO LAB - CHEMISTRY JOANNA YUNG [facility] ACCOUNT BILL [address] [place] [address] * FERRITIN (07/01/2021 2:36 PM CDT) Ferritin 8 5 - 204 ng/mL [facility] ACCOUNT BILL Blood BLOOD SPECIMEN / Unknown 07/01/2021 2:36 PM CDT 07/01/2021 Narrative Resulting Agency Comment Lab Testing performed at: [facility] [address] ?? [facility] [id number] Citlaly Ramos DO LAB - CHEMISTRY JOANNA YUNG [facility] ACCOUNT BILL [address] [place] [address] documented in this encounter Visit Diagnoses Diagnosis Anemia, unspecified type- Primary documented in this encounter Care Teams Electric Screw Driver Operator Relationship Specialty Start Date End Date Citlaly Ramos DO [address] [place] [phone] PCP - General Family Medicine 02/21/21 Miller Zamora MD [address] [place] [address] Urology 02/21/21 documented as of this encounter
--- OUTSIDE RECORDS SUMMARY | 2024-09-25 11:44 | XMS_ITS | Encounter Summary ---
Author Organization [facility], formerly [facility] Address [address] [place] [address] Care Team Providers Care Chili Powder Mixer Name Role Phone Rema Austin MD Primary Care Provider [phone] Reason for Visit * Auth/Cert Specialty Diagnoses / Procedures Referred By Norm benjamin Referred To Contact Diagnoses Right nephrolithiasis Right nephrolithiasis Procedures CYSTOSCOPY WITH RETROGRADE PYELOGRAM CYSTOSCOPY URETEROSCOPY WITH LASER/HOLMIUM LITHOTRIPSY Referral ID Status Reason Start Date Expiration Date Visits Re quested Visits Authorized [id number] 1 1 Encounter Details Date Type Department Care Team (Latest Contact Info) Description 01/14/2021 7:28 AM CDT - 01/14/2021 4:30 PM CDT Hospital Encounter [facility] [address] [place] [id number] Miller Zamora MD [address] [facility] 2L [place] [id number] Surgery Urology Discharge Disposition: Home or Self Care Social [...] have Coronavirus / COVID-19? No / Unsure 12/31/2020 11:12 AM CDT documented as of this encounter Last Filed Vital Signs Vital Sign Reading Time Taken Comments Blood Pressure 112/82 01/14/2021 3:15 PM CDT Pulse 85 01/14/2021 3:15 PM CDT Temperature 36.3 ??C (97.4 ??F) 01/14/2021 2:05 PM CD T Respiratory Rate 9 01/14/2021 3:15 PM CDT Oxygen Saturation 99% 01/14/2021 3:15 PM CDT Inhaled Oxygen Concentration - - Weight 90.4 kg (199 lb 3.2 oz) 01/14/2021 8:15 A M CDT Height 162.6 cm (5' 4 ) 01/14/2021 8:15 AM CDT Body Mass Index 34.19 01/14/2021 8:15 AM CDT documented in this encounter Functional [...] as of this encounter Discharge Instructions * Discharge Instructions* Ankita Rose RN - 01/14/2021 4:06 PM CDT Images from the original note were not included. Today, you underwent Right Ureteroscopy, Laser Lithotripsy, Stone Extraction, Retrograde Pyelogram,and Ureteral Stent Exchange with Dr. Zamora. Post-Op Instructions You have a stent in your ureter (the tube that drains your kidney to your bladder). This may cause some urinary frequency, urgency and blood in your urine. This is all normal and expected. Take ibuprofen/tylenol as needed for back pain and take oxybutynin for urinary symptoms. You can take flomax (tamsulosin) for any discomfort that is due to your stent being in place. Please be sure to get plentiful hydration. Drink at least 2 liters of fluid daily. If you have any questions about your care or the recovery process, please contact [facility] Urology at [phone] during regular business hours. On weekends or in the evening, please contact [facility] Hospitalat [phone] and ask for whoever is semiconductor processing group leader for Urology. Follow Up A follow up appointment with Dr. Zamora for cystoscopy and removal of the ureteral stent has beenscheduled on your behalf. - Appointment date and time: Monday January 25, 2021 at 11:30 AM - Location: [facility] in [place] (address is [address], [address]) If you need to change or cancel your appointment, please call [phone]. You may return to work 01/21/2021 Ureteral Stent Placement WHAT YOU NEED TO KNOW: What do I need to know about ureteral stent placement? Ureteral stent placement is a procedure to open a blocked or narrow ureter. The ureter is the tube that carries urine from your kidney into yourbladder. A stent is a thin hollow plastic tube used to hold your ureter open and allow urine to flow. The stent may stay in for several weeks. Long-term stents will stay in longer and need to be replaced within a certain period of time. How do I prepare for ureteral stent placement? Your healthcare provider will talk to you about how to prepare for this procedure. He or she may tell you not to eat or drink anything after midnight onthe day of your procedure. Your provider will tell you what medicines to take or not take on the day of your procedure. You may be given an antibiotic through your IV to help prevent a bacterial infection. Arrange for a ride home after your procedure if you will have general anesthesia during this procedure. What will happen during ureteral stent placement? ?? You may be given general anesthesia to keep you asleep and free from pain during the procedure. You may instead be given local anesthesia to numb the urethra. With local anesthesia, you may still feel pressure or pushing during the procedure, but you should not feel any pain. If you are given local sedation, you may also be given IV sedation. IV sedation will help you relax during the procedure. Your healthcare provider will use x-rays and contrast liquid to find the area where the stent needs to be placed. ?? A cystoscope (small tube with a light and camera on the end) will be placed into your bladder through your urethra. The urethra is the tube that urine flows through when you urinate. A wire will be put through the scope into your ureter and moved close to your kidney. The stent will be pushed over the wire into your ureter. The wire is used to guide the stent. It will be removed when the stentis in place. A string that is attached to the end of the stent may be left hanging down through theurethra and out of the body. This string may be used to remove the stent later on. What will happen after ureteral stent placement? You may have pain when you urinate, or around yourbladder or kidney. You may also need to urinate more frequently than normal, or feel a sudden, urgent need to urinate. You may have blood or brown discharge from your urethra for 48 to 72 hours. You may see blood in your urine. These symptoms are common and should get better with time. What are the risks of ureteral stent placement? Your ureter may be damaged during the procedure andyou will need surgery to fix it. You may need surgery if the stent cannot be put in safely. The stent may become blocked or move out of place. If the stent remains in place for a long time, minerals and bacteria may grow over it. This can cause a blockage or a bladder infection. CARE AGREEMENT: You have the right to help plan your care. Learn about your health condition and how it may be treated. Discuss treatment options with your healthcare providers to decide what care you want to receive. You always have the right to refuse treatment. The above information is an financial aid only. It is not intended as medical advice for individual conditions or treatments. Talk to your doctor, nurse or pharmacist before following any medical regimen to see if it is safe and effective for you. ?? Copyright [employer] 2019 Information is for End User's use only and may not be sold, redistributed or otherwise used for commercial purposes. All illustrations and images included in CareNotes?? are the copyrighted property of [employer] or [employer] Ureteroscopy WHAT YOU NEED TO KNOW: A ureteroscopy is a procedure to examine in the inside of your urinary tract. The urinary tract your urethra, bladder, ureters, and kidneys. A ureteroscope is a small, thin tube with a light and camera on the end. Ureteroscopy can help identify problems in your urinary tract, such as kidney stones. DISCHARGE INSTRUCTIONS: Call your doctor if: ?? You have a fever. ?? You cannot urinate. ?? You have blood in your urine. ?? You are vomiting. ?? You have pain in your abdomen or side. ?? You have questions or concerns about your condition or care. Medicines: You may need any of the following: ?? NSAIDs , such as ibuprofen, help decrease swelling, pain, and fever. NSAIDs can cause stomach bleeding or kidney problems in certain people. If you take blood thinner medicine, always ask your healthcare provider if NSAIDs are safe for you. Always read the medicine label and follow directions. ?? Antibiotics may be given to prevent an infection. ?? Take your medicine as directed. Contact your healthcare provider if you think your medicine is not helping or if you have side effects. Tell him or her if you are allergic to any medicine. Keep a list of the medicines, vitamins, and herbs you take. Include the amounts, and when and why you take them. Bring the list or the pill bottles to follow-up visits. Carry your medicine list with you in case of an emergency. Drink liquids as directed: Liquids can help prevent kidney stones and urinary tract infections. Drink water and limit the amount of caffeine you drink. Caffeine may be found in coffee, tea, soda, sports drinks, and foods. Ask your healthcare provider how much liquid to drink each day and which liquids are best for you. Follow up with your healthcare provider as directed: Write down your questions so you remember to ask them during your visits. ?? Copyright [employer] 2020 Information is for End User's use only and may not be sold, redistributed or otherwise used for commercial purposes. All illustrations and images included in CareNotes?? are the copyrighted property of [employer] or [employer] The above information is an financial aid only. It is not intended as medical advice for individual conditions or treatments. Talk to your doctor, nurse or pharmacist before following any medical regimen to see if it is safe and effective for you. documented in this encounter Medications at Time of Discharge Medication Sig Dispensed Refills Start Date End Date ibuprofen (MOTRIN) 600 MG tablet Take 1 tablet by mouth every 6 hours as needed for Pain 30 tablet 03/15/2019 albuterol HFA (PROVENTIL;VENTOLIN;AK OAIR) 108 (90 BASE) MCG/ACT inhaler Inhale 2 Puffs by mouth every 6 hours as needed Reported on 10/23/2016 02/21/2021 oxybutynin (DITROPAN) 5 MG tablet Take 1 (one) tablet by mouth every 8 hours as needed (for urinary urgency/frequency, bladder spasms) 60 tablet 01/14/2021 07/04/2021 tamsulosin (FLOMAX) 0.4 MG capsule Take 1 (one) capsule by mouth once daily At the same time every day after a meal. 30 capsule 01/14/2021 07/04/2021 traMADol (ULTRAM) 50 MG tablet Take 1 (one) tablet by mouth every 6 hours as needed (for severe post op pain) . Do not drink alcohol, drive, or operate heavy machinery while taking this medication. 12 tablet 01/14/2021 02/21/2021 documented as of this encounter H&P Notes * Adriane Brown, NEELAM-WOOD TYPE CUTTER - 01/14/2021 8:29 AM CDT [facility] Division of Urologic Surgery Pre-Operative H&P Miller Zamora MD Today's Date: 01/14/2021 Patient Name: Alysha Jolley : 1990 No chief complaint on file. Lab 12/31/2020-[facility] COVID 01/11/2021 @9AM [facility] Pre-op urine culture arranged for 12/31/2020-[facility] COVID screen on 01/11/2021 9AM HISTORY OF PRESENT ILLNESS (HPI): The patient is a 30 year old female with a past medical history significant for having a Horsehoe Kidney and nephrolithiasis, Asthma and anemia who is presenting today for a Cystoscopy, Right Ureteroscopy, Right Laser Lithotripsy, Stone Extraction, Right Retrograde Pyelogram and possible right ureteral stent exchange secondary to a finding of kidney stones in the right portion of the kidney. Outside Hospital CT Scan notes a large distal right ureteral stone with hydronephrosis. The patient presented on November 24, 2020 to [facility] with right pelvic pain and underwent the above mentioned Ct Scan demonstrating her known horseshoe kidney with RIGHT distal ureteral stones (~7mm). Her UA was concerning for a possible UTI, as well. She was then transferred to U, where she was noted to be afebrile and hemodynamically stable. She noted her pain had been ongoingand persistent for the last month causing her to have poor sleep. She reported that particular episode was similar to one in 2017 when she underwent stent placement and ESWL for a kidney stone. Her Creatinine was normal at 0.6. There was no leukocytosis (7.5) ad her UA had >20 squamous cells butwas without nitrites. She was admitted for antibiotics and pain control and underwent a Cystoscopy, right retrograde pyelogram, and right ureteral stent placement on 11/25/2020. She was able to be discharged the following day on 11/26 and a surgery order was placed for today's surgery. The patient was discharged with a prescription for antibiotics which she apparently lost. Nurse Harvey entered orders on 12/20/2020 and faxed them to [facility] to have a UA and culture completed. Urine Culture of 12/28: Growth of mixed marco was isolated, suggesting probable contamination. Urine Culture of 12/31 (taken at [facility]): Culture Urine 10,000-50,000 CFU/mL urogenital marco Covid-19 Testing completed? On 01/12/2021: not detected Any use of anti-platelet or anti-coagulant medications within the past 7 days? None according to patient Patient did not complete the antibiotics prescribed for her after her last hospitalization, but [facility] recent urine culture was negative. PAST MEDICAL HISTORY: Past Medical History: Diagnosis Date ??? Anesthesia no issues ??? Asthma remote ??? Chlamydia this ??? GBS (group B streptococcus) UTI complicating 08/07/2014 ??? History of anemia ??? History of sexually transmitted disease ??? Kidney stones ??? Migraines ??? Nephrolithiasis ??? depression ??? Trichomonas Treated this PAST SURGICAL HISTORY: Past Surgical History: Procedure Laterality Date ??? CYSTOSCOPY N/A 11/24/2020 N/A; Cystoscopy; Right Retrograde Pyelogram; Stent Placement ??? CYSTOSCOPY Right 11/25/2020 Right; CYSTOSCOPY WITH RIGHT RETROGRADE PYELOGRAM; STENT PLACEMENT ??? Lithotripsy FAMILY HISTORY: Family History Problem Relation Name Age of Onset ??? Hypertension Maternal Grandmother ??? Hypertension Mother SOCIAL HISTORY: Social History Socioeconomic History ??? Marital status: Single Spouse name: Not on file ??? Number of children: Not on file ??? Years of education: Not on file ??? Highest education level: Not on file Occupational History ??? Not on file Tobacco Use ??? Smoking status: Current Every Day Smoker Packs/day: 0.50 Years: 6.00 Pack years: 3.00 Types: Cigarettes ??? Smokeless tobacco: Never Used Substance and Sexual Activity ??? Alcohol use: Yes Alcohol/week: 0.0 standard drinks Comment: occ ??? Drug use: Not Currently ??? Sexual activity: Not on file Other Topics Concern ??? Not on file Social History Narrative ??? Not on file Social Determinants of Health Financial Resource Strain: ??? Difficulty of Paying Living Expenses: Food Insecurity: ??? Worried About Running Out of Food in the Last Year: ??? Ran Out of Food in the Last Year: Transportation Needs: ??? Lack of Transportation (Medical): ??? Lack of Transportation (Non-Medical): Physical Activity: ??? Days of Exercise per Week: ??? Minutes of Exercise per Session: Stress: ??? Feeling of Stress : Social Connections: ??? Frequency of Communication with Friends and Family: ??? Frequency of Social Gatherings with Friends and Family: ??? Attends Yarsanism Services: ??? Active Member of Clubs or Organizations: ??? Attends Club or Organization Meetings: ??? Marital Status: Intimate Partner Violence: ??? Fear of Current or Ex-Partner: ??? Emotionally Abused: ??? Physically Abused: ??? Sexually Abused: Current Smoker w/in 1 year: Yes ETOH>2 drinks/day w/in 2 weeks: No ALLERGIES: Allergies Allergen Reactions ??? Augmentin Rash Hives ??? Vicodin [Hydrocodone-Acetaminophen] Urticaria MEDICATIONS: No current facility-administered medications for this encounter. Current Outpatient Medications Medication Sig Dispense Refill ??? albuterol HFA (PROVENTIL;VENTOLIN;PROAIR) 108 (90 BASE) MCG/ACT inhaler Inhale 2 Puffs by mouthevery 6 hours as needed Reported on 10/23/2016 ??? ibuprofen (MOTRIN) 600 MG tablet Take 1 tablet by mouth every 6 hours as needed for Pain 30 tablet 0 ??? tamsulosin (FLOMAX) 0.4 MG capsule Take 1 (one) capsule by mouth once daily At the same time every day after a meal. 30 capsule 1 REVIEW OF SYSTEMS Constitutional: Denies: fever, chills, diaphoresis, weakness, fatigue, weight loss, weight gain} Cardiovascular: Denies chest pain/tightness, angina, palpitations, orthopnea, or syncope Resp: Denies wheezing, chronic cough, hemoptysis, dyspnea on exertion or dyspnea at rest GI: Denies hematemesis, constipation, diarrhea, melena, hematochezia, jaundice, fecal incontinence,reflux, or nausea/voming : Denies dysuria, hematuria, nocturia, urinary incontinence, or impotence Musculoskeletal: Patient denies arthritis, back pain, or difficulty walking. Skin: Patient denies rashes or skin lesions/cancer PHYSICAL EXAM BP 117/74 Pulse 89 Temp 97.4 ??F (36.3 ??C) (Temporal) Resp 19 Ht 5' 4 (1.626 m) Wt 199 lb 3.2 oz (90.4 kg) SpO2 97% BMI 34.19 kg/m2 Constitutional: Appears well, no distress Respiratory: Normal repiratory effort without retractions Cardiovascular: Regular rate and rhythm without murmur Pulses (Required on Vascular and Cardiovascular Patients): Normal radial pulses bilaterally GI: Abdomen soft, non-distended without mass or tenderness : Genitourinary: Deferred Laboratory Review: Urine Culture of 12/31: Culture Urine 10,000-50,000 CFU/mL urogenital marco UA 12/31/2020: Results for ALYSHA JOLLEY ( ) as of 12/31/2020 15:30 Ref. Range 12/31/2020 12:46 Color UA Latest Ref Range: Straw, Yellow, Colorless Yellow Clarity UA Latest Ref Range: Clear, Slt Cloudy Clear Specific Stinnett UA Latest Ref Range: 1.005 - 1.030 1.016 pH UA Latest Ref Range: 5.0 - 8.0 pH 7.0 Protein UA Latest Ref Range: Negative mg/dL 1+ (Abnormal) Blood UA Latest Ref Range: Negative 2+ (Abnormal) Ketone UA Latest Ref Range: Negative mg/dL Negative Leukocyte Esterase Latest Ref Range: Negative 1+ (Abnormal) Nitrite UA Latest Ref Range: Negative Negative Glucose UA Latest Ref Range: Negative mg/dL Negative Bilirubin UA Latest Ref Range: Negative mg/dL Negative Urobilinogen UA Latest Ref Range: Negative mg/dL Negative Results for ALYSHA JOLLEY ( ) as of 12/31/2020 15:30 Ref. Range 12/31/2020 12:46 Sodium Latest Ref Range: 136 - 145 mmol/L 138 Potassium Latest Ref Range: 3.5 - 4.5 mmol/L 3.8 Chloride Latest Ref Range: 98 - 107 mmol/L 106 CO2 Latest Ref Range: 22 - 29 mmol/L 24 Anion Gap Latest Ref Range: 8 - 18 12 BUN Latest Ref Range: 7 - 26 mg/dL 8 Creatinine Latest Ref Range: 0.6 - 1.2 mg/dL 0.7 eGFR Latest Ref Range: >60 mL/min/1.73 m2 >60 Glucose Latest Ref Range: 70 - 115 mg/dL 78 Calcium Latest Ref Range: 8.4 - 10.2 mg/dL 8.5 BUN/Creatinine Ratio Latest Ref Range: 7 - 23 11 Results for ALYSHA JOLLEY ( ) as of 12/31/2020 15:30 Ref. Range 12/31/2020 12:46 WBC Latest Ref Range: 3.5 - 10.5 10??3/uL 7.3 RBC Latest Ref Range: 3.90 - 5.00 10??6/uL 4.37 Hemoglobin Latest Ref Range: 12.0 - 15.5 g/dL 11.4 (L) Hematocrit Latest Ref Range: 35.0 - 45.0 % 35.0 MCV Latest Ref Range: 81.0 - 97.0 fL 80.1 (L) MCH Latest Ref Range: 28.0 - 34.0 pg 26.1 (L) MCHC Latest Ref Range: 32.0 - 36.0 g/dL 32.6 Platelet Count Latest Ref Range: 150 - 400 10??3/uL 327 RDW-SD Latest Ref Range: 36.0 - 50.0 fL 47.9 RDW Latest Ref Range: 11.2 - 14.8 % 16.6 (H) MPV Latest Ref Range: 9.3 - 12.8 fL 9.7 Review of Imaging Reports No new imaging. DIAGNOSIS: 30 year old female with a large distal right ureteral stone s/p right ureteral stent placement on 11/25/2020. PLAN OF CARE: To the OR for a a Cystoscopy, Right Ureteroscopy, Right Laser Lithotripsy, Stone Extraction, Right Retrograde Pyelogram and possible right ureteral stent exchange. . The risks and potential complications of the procedure including pain-acute and/or chronic, infection, bleeding, need for blood transfusion, injury to bladder or left ureter with urine leak and need for prolonged catheterization/stent utilization, injury to surrounding nerves/vessels/organs, no guarantee of complete removal of stone with need for additional surgical intervention; wound/medical/cardiovascular complications, and need for additional surgery have been reviewed with the patient. Patient verbalized understanding and wishes to proceed with above surgery. FLOR Scott CERTIFIED ORTHOTIC FITTER, Division of Urologic Surgery Pager: [phone] 01/14/2021 8:30 AM documented in this encounter OR Notes * Operative - Miller Zamora MD - 01/14/2021 2:51 PM CDT NAME: JOHANNY JOLLEYREION : 1990 AGE: 30 PROC DATE: 01/14/2021 SEX: F SURGEON: Miller Zamora MD PREOPERATIVE DIAGNOSIS: Horseshoe kidney, impacted distal right ureteral stone. POSTOPERATIVE DIAGNOSIS: Horseshoe kidney, impacted distal right ureteral stone. PROCEDURE: Cystoscopy, right retrograde pyelogram and right ureteroscopy with laser lithotripsy andstone removal. ATTENDING PHYSICIAN: Miller Zamora M.D. RESIDENT PHYSICIAN: Magan Barajas ANESTHESIA: LMA. COMPLICATIONS: None. IMPLANTS AND DRAINS: A 6 x 24 right ureteral stent without strings. FINDINGS: Impacted right distal ureteral stone with ureteral mucosal damage secondary to impaction,no evidence of extravasation, no other stones seen. DISPOSITION: To PACU in stable condition. Plan for stent removal in approximately 2 weeks in clinic. INDICATIONS: This is a 30-year-old female with a history of horseshoe kidney, who presented with animpacted distal right ureteral stone in November 2020. At that time, she had a UTI and required urgentureteral stenting. Notably, her stone was impacted and difficult for stent placement, but a 4.8-[place] stent was able to be navigated across the stone with direct visualization ureteroscopically. She returns today for definitive treatment. DESCRIPTION OF PROCEDURE: The patient was properly identified in the preoperative holding area. Informed consent was obtained. Once in the operating room, a timeout was performed. Site and procedure were confirmed. Anesthesia was induced. She was given ciprofloxacin for perioperative antibiotic. She was put into the dorsal lithotomy position. Her genitals were prepped and draped in sterile fashion. We began by placing a cystoscope into the bladder, previously placed stent was in good position. The distal curl was grasped and pulled out past the meatus. It was cannulated with a new sensor wireinto the right renal pelvis. We then took a semirigid ureteroscope and navigated this alongside the wire. When we got to the level of the distal ureter, approximately 4 cm in the ureter, we identified an impacted stone, circumferentially impacted into the sidewall. Using a 275 micron laser fiber, we dusted the stone into small pieces. We then used a Zero Tip basket to pull out all the stone fragments and dropped them into the bladder. We closely examined the mid and proximal ureters up to the level of the renal pelvis. No other stones were seen. Next, we reexamined the area of impaction, we noted there to be some sloughing white tissue consistent with mucosal damage secondary to the impacted stone. We performed a retrograde pyelogram at this area. Retrograde pyelogram through the ureteroscope noted that the distal ureter was narrowed at the level of impaction. It appeared there may be a small 5 mm area of submucosal tunneling, but there was noextravasation. The remaining portions of the proximal and mid ureter were normal and there was mildhydronephrosis consistent with horseshoe kidney. We then reassembled the cystoscope and placed a new 6 x 24 stent over the safety wire into position. The scope was removed and her bladder was drained. She tolerated the procedure well. There were nocomplications. I was present for the entire procedure. MD CRISS [id number] Doc ID: [id number] Job ID: [id number] * Brief Op Note - Magan Barajas MD - 01/14/2021 12:47 PM CDT Brief Op Note Procedure: Cystoscopy, Right Ureteroscopy, Right Laser Lithotripsy, stone extraction, Right retrograde pyelogram and possible right ureteral stent exchange Patient Name: Alysha Jolley Date of Service: 01/14/2021 Pre-Op Diagnosis: Right urolithiasis Post-Op Diagnosis: Same as above Surgeon(s) and Role: * Miller Zamora MD - Primary * Magan Barajas MD - Resident - Assisting Anesthesia Type: general LMA Complications: None. Findings: Previously placed right ureteral stent seen in bladder, removed with grasper, not encrusted. Bilateral UO in orthotopic position. Impacted stone encountered in distal right ureter - laseredon dusting settings. Fragments over 2mm extracted with stone basket. Right ureteral stent placed without dangler. EBL: Minimal (< 10 mL) Drains: 6Fr x 24cm right ureteral stent Specimen(s): Order Name Source Comment Collection Info Order Time PATHOLOGY TISSUE Calculus Pre-op diagnosis: Right nephrolithiasis Collected By: Miller Zamora MD 01/14/2021 1:38 PM Release to patient Immediate Plan: Dc home today. Right ureteral stent to be removed in clinic in ~2 wks (appointment scheduled for 01/25). 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 Espinoza. Magan Barajas MD Urology PGY3 01/14/2021 2:00 PM documented in this encounter Plan of Treatment Not on file documented as of this encounter Procedures Procedure Name Priority Date/Time Associated Diagnosis Comments PATHOLOGY TISSUE Routine 01/14/2021 1:17 PM CDT Right nephrolithiasis STONE ANALYSIS QUANT Routine 01/14/2021 1:17 PM CDT Nephrolithiasis AK CYSTO/URETERO/PYEL OSCOPY W/LITHOTRIPSY 01/14/2021 12:47 PM CDT Right nephrolithiasis Special Needs [employer]# [id number] / Reviewed SM 5/5COVID 01/11/2021 @9AM [facility] HCG URINE QUALITATIVE - POCT (IP) INTERFACED Routine 01/14/2021 8:18 AM CDT HCG URINE QUAL POCT NOTIFICATION STAT 01/14/2021 8:09 AM CDT Preop examination URINALYSIS NO MICROSCOPIC NO CULTURE STAT 01/14/2021 8:05 AM CDT Preop examination documented in this encounter Results * PATHOLOGY TISSUE (01/14/2021 1:17 PM CDT) Case Report Surgical Pathology Report ? Case: [id number] ? Authorizing Provider: ??Miller Zamora MD ?Collected: ? 01/14/2021 01:17 PM ? Ordering Location: ? [facility] ?Received: ?01/14/2021 03:03 PM ? Pathologist: ? Tammy Brunson MD ? Specimen: ?Calculus, Right ureter calculus ? 01/21/2021 9:46 AM CDT [facility] PATH[facility]Y LAB Final Diagnosis Ureter, right, calculus, extraction (A): - Uroliths (gross examination only) (sent for chemical analysis) 01/21/2021 9:46 AM [facility] Microscopic Description and Comment Not applicable 01/21/2021 9:46 AM [facility] Clinical History 30 year old woman with horseshoe kidney, right ureteral stones, here for lithotripsy. 01/21/2021 9:46 AM [facility] Gross Description The requisition and specimen label(s) are identified with the patient's name, Alysha Jolley. Received fresh, specimen A , right ureter calculus are multiple shelby yellow-brown firm stones measuring 0.1-0.3 cm in greatest dimension. This specimen is for chemical examination only. 01/21/2021 9:46 AM [facility] Disclaimer The performance characteristics of all immunohistochemical and indirect immunofluorescence stains (if any) cited in this report were determined by the Histopathology [facility] of [facility]. Some of these tests were developed by [...] attending (teaching) pathologist. 01/21/2021 9:46 AM CDT [facility] PATHOLOGY LAB Embedded Images 01/21/2021 9:46 AM CDT [facility] PATH[facility]Y LAB Gross only CALCULUS SPECIMEN / Unknown 01/14/2021 1:17 PM CDT 01/14/2021 3:03 PM CDT Comment:Pre-op diagnosis: Right nephrolithiasis Miller Zamora MD LAB - PATHOLOGY/CY TOLOGY ORDERABLES [facility] PATHOLOGY LAB [address] [phone] * STONE ANALYSIS QUANT (01/14/2021 1:17 PM CDT) Calculi Composition See Note 01/28/2021 3:57 PM CDT [employer] ([facility]) Comment: Calculi composed primarily of: 70% [...] composition determined by FTIR analysis. Performed By: [facility] [address] [place] [address] Power System Electrical Engineer: Marisol Velázquez MD Calculi Mass 25 mg 01/28/2021 3:57 PM CDT [employer] ([facility]) Calculi Number 4 01/28/2021 3:57 PM CDT [employer] ([facility]) Calculi Size Various mm 01/28/2021 3:57 PM CDT [facility] ([facility]) Calculi Description See Note 01/28/2021 3:57 PM CDT [facility] [employer] ([facility]) Comment: Specimen consists of four, various sized (1 mm to 9 mm), shelby/white, irregular calculi fragments. Pathology/Cytolo gy CALCULUS SPECIMEN / Unknown Collection / Unknown 01/14/2021 1:17 PM CDT 01/25/2021 10:18 AM CDT Miller Zamora MD LAB - URINE CHEMIS TRY ORDERABLES [employer] ([facility]) [address] [place], [place] [id number] [place] [address] * [facility] URINE QUALITATIVE - POCT (IP) INTERFACED (01/14/2021 8:18 AM CDT) HCG Qual Urine Negative Negative 01/14/2021 8:25 AM CDT [facility] Urine URINE / Unknown 01/14/2021 8 :18 AM CDT 01/14/2021 8:25 AM CDT Miller Zamora MD LAB - POINT OF CAR E ORDERABLES [address] [address], [place] [phone] * HCG URINE QUAL POCT NOTIFICATION (01/14/2021 8:09 AM CDT) Comment Notification Label Only - See Separate Report 01/14/2021 9:30 AM CDT [facility] Urine URINE / Unknown 01/14/2021 8 :09 AM CDT 01/14/2021 8:09 AM CDT Miller Zamora MD LAB - URINALYSIS O RDERABLES [address] [address], [place] [phone] * (ABNORMAL) URINALYSIS NO MICROSCOPIC NO CULTURE (01/14/2021 8:05 AM CDT) Color UA Yellow Straw, Yellow, Colorless 01/14/2021 10:05 AM CDT [facility] Clarity UA Cloudy(A) Clear, Slt Cloudy 01/14/2021 10:05 AM CDT [facility] Specific [place] UA 1.023 1.005 - 1.030 01/14/2021 10:05 AM T [facility] pH UA 5.0 5.0 - 8.0 pH 01/14/2021 10:05 AM T [facility] Protein UA 2+(A) Negative mg/dL 01/14/2021 10:05 AM T [facility] Glucose UA Negative Negative mg/dL 01/14/2021 10:05 AM [facility] Ketone UA Negative Negative mg/dL 01/14/2021 10:05 AM [facility] Bilirubin UA Negative Negative mg/dL 01/14/2021 10:05 AM [facility] Blood UA 3+(A) Negative 01/14/2021 10:05 AM [facility] Nitrite UA Negative Negative 01/14/2021 10:05 AM [facility] Leukocyte Esterase 2+(A) Negative 01/14/2021 10:05 AM [facility] Urobilinogen UA Negative Negative mg/dL 01/14/2021 10:05 AM [facility] Urine URINE SPECIMEN OBTAINED BY CLEAN CATCH PROCEDURE / Unknown Collection / Unknown 01/14/2021 8:05 AM T 01/14/2021 9:53 AM [facility] Narrative [facility] - 01/14/2021 10:05 AM [facility] Paras Han MD LAB - URINALYSIS ORD ERABLES Performing Organization Address City/State/[facility] Co de Phone Number [facility] [address] [place] [address], [facility] [phone] documented in this encounter Visit Diagnoses Diagnosis Preop examination- Primary Preoperative examination, unspecified Nephrolithiasis Calculus of kidney Right nephrolithiasis documented in this encounter Administered Medications Inactive Administered Medications - up to 3 most recent administrations Medication Order MAR Action Action Date Dose Rate Site 0.9% NaCl injection 1-10 mL 1-10 mL, Intracatheter, PRN, Other, peripheral line flush, Starting on Thu01/14/21 at 0809, Until Thu01/14/21 at 1734, Flush peripheral IV catheter with 1-10 mL of normal saline before and after medications and prn to clear blood from the line or to verify patency., Pre-op 0.9% NaCl injection 3 mL 3 mL, Intracatheter, EVERY 8 HOURS, First dose on Thu01/14/21 at 0815, Until Discontinued, Flush peripheral IV catheter with 3 mL of normal saline every 8 hours., Pre-op diphenhydrAMINE (Benadryl) injection 25 mg 25 mg, Intravenous, ONCE PRN, Nausea/Vomiting, 1 dose, Starting on Thu01/14/21 at 1352, Until Thu01/14/21 at 1734, Third choice, use if first and second choice was ineffective., PACU diphenhydrAMINE (Benadryl) injection 25 mg 25 mg, Intravenous, POST-OP MULTIPLE, Starting on Thu01/14/21 at 1352, Until Thu01/14/21 at 1734, IV for itching - may repeat x1 dose in 15 minutes., PACU fentaNYL (PF) (Sublimaze) injection 25 mcg 25 mcg, Intravenous, EVERY 5 MIN PRN, Mild Pain, 4 doses, Starting on Thu01/14/21 at 1352, Until Thu01/14/21 at 1734, Maximum total of 4 doses. If patient reaches max total dose, please consult anesthesiologist prior to further administration of pain meds. Hold pain meds if there are signs of hypoventilation., PACU fentaNYL (PF) (Sublimaze) injection 50 mcg 50 mcg, Intravenous, EVERY 5 MIN PRN, Moderate Pain, 4 doses, Starting on Thu01/14/21 at 1352, Until Thu01/14/21 at 1734, Maximum total of 4 doses. If patient reaches max total dose, please consult anesthesiologist prior to further administration of pain meds. Hold pain meds if there are signs of hypoventilation., PACU HYDROmorphone (Dilaudid) injection 0.5 mg 0.5 mg, Intravenous, EVERY 10 MIN PRN, Severe Pain, 4 doses, Starting on Thu01/14/21 at 1352, Until Thu01/14/21 at 1734, Maximum total of 4 doses If patient reaches max total dose, please consult anesthesiologist prior to further administration of pain meds. Hold pain meds if there are signs of hypoventilation., PACU labetalol (Normodyne; Trandate) injection 5 mg 5 mg, Intravenous, POST-OP MULTIPLE, Starting on Thu01/14/21 at 1352, Until Thu01/14/21 at 1734, IV given slowly over 1 minute up to 20 mg. Repeat every 10-15 minutes in 5 mg doses. Hold if heart rate is less than 60. Give for hypertension SBP greater than 180, DBP greater than 100., PACU lactated ringers infusion at 100 mL/hr, Intravenous, CONTINUOUS, Starting on Thu01/14/21 at 0815, Until Thu01/14/21 at 1734, Pre-op $ New Bag/Syringe 01/14/2021 9:03 AM CDT 1,000 mL 100 mL/hr lactated ringers infusion at 125 mL/hr, Intravenous, CONTINUOUS, Starting on Thu01/14/21 at 1400, Until Thu01/14/21 at 1734, PACU lidocaine PF (Xylocaine Mpf) 1 % injection 0.2 mL 0.2 mL, Intradermal, ONCE PRN, IV start pain, 1 dose, Starting on Thu01/14/21 at 0809, Until Thu01/14/21 at 1734, May be used locally to anesthetize prior to IV insertion, if patient has NKA to Lidocaine., Pre-op naloxone (Narcan) injection 0.04 mg 0.04 mg, Intravenous, POST-OP MULTIPLE, Starting on Thu01/14/21 at 1352, Until Thu01/14/21 at 1734, If respiration rate is less than 7 per minute administer IV every 1 minute until respirations are greater than 12 per minute. Notify anesthesia immediately., PACU naloxone (Narcan) injection 0.04 mg 0.04 mg, Intravenous, POST-OP MULTIPLE, Starting on Thu01/14/21 at 1352, Until Thu01/14/21 at 1734, Notify physician immediately, and mix 0.4 mg Naloxone in 9 mL Normal Saline for slow IV push. Administer dilute Naloxone solution IV very slowly (1 mL over 30 seconds) while observing the patient response and titrating to effect. If no response, call Rapid Response, continue IV Naloxone at the same rate up to a total of 0.8 mg of diluted Naloxone., PACU ondansetron (Zofran) injection 4 mg 4 mg, Intravenous, ONCE PRN, Nausea/Vomiting, Starting on Thu01/14/21 at 1352, Until Thu01/14/21 at 1734, First choice, PACU prochlorperazine (Compazine) injection 10 mg 10 mg, Intravenous, ONCE PRN, Nausea/Vomiting, Starting on Thu01/14/21 at 1352, Until Thu01/14/21 at 1734, Second choice, use if first choice was ineffective., PACU traMADol (Ultram) tablet 50 mg 50 mg, Oral, EVERY 6 HOURS PRN, Severe Pain, 2 doses, Starting on Thu01/14/21 at 1606, Until Thu01/14/21 at 1734 $ Given 01/14/2021 4:12 PM CDT 50 mg documented in this encounter Active and Recently Administered Medications Times are shown in CDT. Scheduled Medication Order 01/12/2021 01/13/2021 01/14/2021 0.9% NaCl injection 3 mL(Linked Group 1) 3 mL, Intracatheter, EVERY 8 HOURS, First dose on Thu01/14/21 at 0815, Until Discontinued, Flush peripheral IV catheter with 3 mL of normal saline every 8 hours., Pre-op 0815 (Due)1400 (Due) ciprofloxacin (Cipro) 400 mg in 200 mL IVPB (COMPLETED) 400 mg, at 200 mL/hr, Intravenous, ONCE, 1 dose, On Thu01/14/21 at 0900, Indication for anti-infective therapy: Surgical prophylaxis, Intra-op 1222 ($ Given - Prov ider: Caroline Santoro, FINISHING AREA SUPERVISOR-SAP ANALYST) diphenhydrAMINE (Benadryl) injection 25 mg 25 mg, Intravenous, POST-OP MULTIPLE, Starting on Thu01/14/21 at 1352, Until Thu01/14/21 at 1734, IV for itching - may repeat x1 dose in 15 minutes., PACU labetalol (Normodyne; Trandate) injection 5 mg 5 mg, Intravenous, POST-OP MULTIPLE, Starting on Thu01/14/21 at 1352, Until 01/14/21 at 1734, IV given slowly over 1 minute up to 20 mg. Repeat every 10-15 minutes in 5 mg doses. Hold if heart rate is less than 60. Give for hypertension SBP greater than 180, DBP greater than 100., PACU naloxone (Narcan) injection 0.04 mg 0.04 mg, Intravenous, POST-OP MULTIPLE, Starting on Thu01/14/21 at 1352, Until Thu01/14/21 at 1734, If respiration rate is less than 7 per minute administer IV every 1 minute until respirations are greater than 12 per minute. Notify anesthesia immediately., PACU naloxone (Narcan) injection 0.04 mg 0.04 mg, Intravenous, POST-OP MULTIPLE, Starting on Thu01/14/21 at 1352, Until Thu01/14/21 at 1734, Notify physician immediately, and mix 0.4 mg Naloxone in 9 mL Normal Saline for slow IV push. Administer dilute Naloxone solution IV very slowly (1 mL over 30 seconds) while observing the patient response and titrating to effect. If no response, call Rapid Response, continue IV Naloxone at the same rate up to a total of 0.8 mg of diluted Naloxone., PACU Continuous Medication Order 01/12/2021 01/13/2021 01/14/2021 lactated ringers infusion at 100 mL/hr, Intravenous, CONTINUOUS, Starting on Thu01/14/21 at 0815, Until Thu01/14/21 at 1734, Pre-op 0903 ($ New Bag/Syri nge - Provider: Ankita James RN) lactated ringers infusion at 125 mL/hr, Intravenous, CONTINUOUS, Starting on Thu01/14/21 at 1400, Until Thu01/14/21 at 1734, PACU 1400 (Due) PRN Medication Order 01/12/2021 01/13/2021 01/14/2021 0.9% NaCl injection 1-10 mL(Linked Group 1) 1-10 mL, Intracatheter, PRN, Other, peripheral line flush, Starting on Thu01/14/21 at 0809, Until Thu01/14/21 at 1734, Flush peripheral IV catheter with 1-10 mL of normal saline before and after medications and prn to clear blood from the line or to verify patency., Pre-op diphenhydrAMINE (Benadryl) injection 25 mg 25 mg, Intravenous, ONCE PRN, Nausea/Vomiting, 1 dose, Starting on Thu01/14/21 at 1352, Until Thu01/14/21 at 1734, Third choice, use if first and second choice was ineffective., PACU fentaNYL (PF) (Sublimaze) injection 25 mcg 25 mcg, Intravenous, EVERY 5 MIN PRN, Mild Pain, 4 doses, Starting on Thu01/14/21 at 1352, Until Thu01/14/21 at 1734, Maximum total of 4 doses. If patient reaches max total dose, please consult anesthesiologist prior to further administration of pain meds. Hold pain meds if there are signs of hypoventilation., PACU fentaNYL (PF) (Sublimaze) injection 50 mcg 50 mcg, Intravenous, EVERY 5 MIN PRN, Moderate Pain, 4 doses, Starting on Thu01/14/21 at 1352, Until Thu01/14/21 at 1734, Maximum total of 4 doses. If patient reaches max total dose, please consult anesthesiologist prior to further administration of pain meds. Hold pain meds if there are signs of hypoventilation., PACU HYDROmorphone (Dilaudid) injection 0.5 mg 0.5 mg, Intravenous, EVERY 10 MIN PRN, Severe Pain, 4 doses, Starting on Thu01/14/21 at 1352, Until Thu01/14/21 at 1734, Maximum total of 4 doses If patient reaches max total dose, please consult anesthesiologist prior to further administration of pain meds. Hold pain meds if there are signs of hypoventilation., PACU iopamidol (Isovue 300) 61 % contrast (CANCELED) PRN, Starting on Thu01/14/21 at 1255, Until Thu01/14/21 at 1403, Intra-op 1255 ($ Given - Prov ider: Magan Barajas MD) lidocaine PF (Xylocaine Mpf) 1 % injection 0.2 mL 0.2 mL, Intradermal, ONCE PRN, IV start pain, 1 dose, Starting on Thu01/14/21 at 0809, Until Thu01/14/21 at 1734, May be used locally to anesthetize prior to IV insertion, if patient has NKA to Lidocaine., Pre-op ondansetron (Zofran) injection 4 mg 4 mg, Intravenous, ONCE PRN, Nausea/Vomiting, Starting on Thu01/14/21 at 1352, Until Thu01/14/21 at 1734, First choice, PACU prochlorperazine (Compazine) injection 10 mg 10 mg, Intravenous, ONCE PRN, Nausea/Vomiting, Starting on Thu01/14/21 at 1352, Until Thu01/14/21 at 1734, Second choice, use if first choice was ineffective., PACU traMADol (Ultram) tablet 50 mg 50 mg, Oral, EVERY 6 HOURS PRN, Severe Pain, 2 doses, Starting on Thu01/14/21 at 1606, Until Thu01/14/21 at 1734 1612 ($ Given - Prov ider: Deepthi. Rose, RN) Linked Groups Order Group 1: SALINE LOCK, INSERT AND MAINTAIN (CANCELED) Routine, CONTINUOUS, Starting on Thu01/14/21 at 0815, Until Specified, Pre-op, New collection And 0.9% NaCl injection 3 mLJump to med 3 mL, Intracatheter, EVERY 8 HOURS, First dose on Thu01/14/21 at 0815, Until Discontinued, Flush peripheral IV catheter with 3 mL of normal saline every 8 hours., Pre-op And 0.9% NaCl injection 1-10 mLJump to med 1-10 mL, Intracatheter, PRN, Other, peripheral line flush, Starting on Thu01/14/21 at 0809, Until Thu01/14/21 at 1734, Flush peripheral IV catheter with 1-10 mL of normal saline before and after medications and prn to clear blood from the line or to verify patency., Pre-op documented in this encounter Care Teams Chili Powder Mixer Relationship Specialty Start Date End Date Rema Austin MD [address] [place] [address] PCP - General Family Medicine 11/24/20 02/20/21 documented as of this encounter
--- OUTSIDE RECORDS SUMMARY | 2024-09-25 11:44 | XMS_ITS | Encounter Summary ---
Author Organization [facility] Address [address] [place] [address] Care Team Providers Care Sales Order Administrator Name Role Phone Rema Austin MD Primary Care Provider [phone] Encounter Details Date Type Department Care Team (Latest Contact Info) Description 01/12/2021 Travel Social History Tobacco Use Types Packs/Day Years Used Date Smoking Tobacco: Every Day Cigarettes 0.5 6 Smokeless Tobacco: Never Alcohol Use Standard [...] Diagnoses Not on filedocumented in this encounter Additional Health Concerns Infection Onset Date Last Indicated Resolved Time COVID-19 Under Investigation 01/12/2021 01/12/2021 01/12/2021 9:23 PM CDT documented as of this encounter Care Teams Sales Order Administrator Relationship Specialty Start Date End Date Rema [place] MD [address] [place] [id number] PCP - General Family Medicine 11/24/20 02/20/21 documented as of this encounter
--- OUTSIDE RECORDS SUMMARY | 2024-09-25 11:44 | XMS_ITS | Encounter Summary ---
Author Organization [facility] Address [address] [place] [address] Care Team Providers Care Maintenance Operator Name Role Phone Rema Austin MD Primary Care Provider [phone] Reason for Visit * Auth/Cert Specialty Diagnoses / Procedures Referred By Norm benjamin Referred To Contact Diagnoses Right nephrolithiasis Right nephrolithiasis Procedures CYSTOSCOPY WITH RETROGRADE PYELOGRAM CYSTOSCOPY URETEROSCOPY WITH LASER/HOLMIUM LITHOTRIPSY Referral ID Status Reason Start Date Expiration Date Visits Re quested Visits Authorized [id number] 1 1 Encounter Details Date Type Department Care Team (Late st Contact Info) Description 01/14/2021 10:40 AM CDT - 01/14/2021 12:15 PM CDT Surgery [facility] [address] [place] [id number] Miller Zamora MD [address] [facility] 2L [place] [id number] Cystoscopy, Right Ureteroscopy, Right Laser Lithotripsy, stone extraction, right retrograde pyelogram and possible right ureteral stent exchange Surgery Details Date/Time Status Location OR Service Patient Class Case Class Case Type Trauma Case? 01/14/2021 10:40 AM Posted [facility] OR OR Urology Surgery Day Care Panel 1 Procedure LRB Anes Op Region Wound Class Comments Cystoscopy, Right Ureterosco py, Right Laser Lithotripsy, stone extraction, right retrograde pyelogram and possible right ureteral stent exchange Right General Ureter Clean Contaminate d Surgeon Surgeon Role Service Panel Miller Zamora MD Primary Urology 1 Magan Barajas MD Resident - Assisting General 1 Special Needs Laser [facility]# [id number] / Reviewed OVID 01/11/2021 @9AM [facility] documented in this encounter Social History Tobacco Use Types Packs/Day Years [...] Sign Reading Time Taken Comments Blood Pressure 97/64 01/14/2021 8:30 AM CDT Pulse 82 01/14/2021 8:30 AM CDT Temperature 36.3 ??C (97.4 ??F) 01/14/2021 8:15 AM CD T Respiratory Rate 13 01/14/2021 8:30 AM CDT Oxygen Saturation 99% 01/14/2021 8:30 AM CDT Inhaled Oxygen Concentration - - [...] care or the recovery process, please contact [facility] Urology at [phone] during regular business hours. On weekends or in the evening, please contact [facility] Hospitalat [phone] and ask for whoever is account installation specialist for Urology. Follow Up A follow up appointment with Dr. Zamora for cystoscopy and removal of the ureteral stent has beenscheduled on your behalf. - Appointment date and time: Monday January 25, 2021 at 11:30 AM - Location: [facility] in [place] (address is [address] [place] [address], [address]) If you need to change or cancel your appointment, please call [phone]. You may return to work 01/21/2021 Ureteral [...] refuse treatment. The above information is an forestry fire aide only. It is not intended as medical advice for individual conditions or treatments. Talk to your doctor, nurse or pharmacist before following any medical regimen to see if it is safe and effective for you. ?? Copyright Exec 2018 Information is for End User's use only and may not be sold, redistributed or otherwise used for commercial purposes. All illustrations and images included in CareNotes?? are the copyrighted property of [employer] or [employer] Ureteroscopy WHAT YOU NEED TO KNOW: A [...] ask them during your visits. ?? Copyright Exec 2020 Information is for End User's use only and may not be sold, redistributed or otherwise used for commercial purposes. All illustrations and images included in CareNotes?? are the copyrighted property of [employer]. or [employer] The above information is an forestry fire aide only. It is not intended as medical [...] for Pain 30 tablet 03/15/2019 albuterol HFA (PROVENTIL;VENTOLIN;RI OAIR) 108 (90 BASE) MCG/ACT inhaler Inhale [...] of this encounter H&P Notes * Adriane Brown APRN-INFORMATION TECHNOLOGY ACCOUNT MANAGER - 01/14/2021 8:29 AM CDT [facility] Division of Urologic Surgery Pre-Operative H&P Miller Zamora MD Today's Date: 01/14/2021 Patient Name: Alysha Jolley : 1990 No chief complaint on file. Lab 12/31/2020-[facility] COVID 01/11/2021 @9AM [facility] Pre-op urine culture arranged for 12/31/2020-[facility] COVID screen on 01/11/2021 9AM HISTORY OF [...] patient presented on November 24, 2020 to [facility] with right pelvic pain and underwent the [...] orders on 12/20/2020 and faxed them to [facility] to have a UA and culture completed. Urine Culture of 12/28: Growth of mixed marco was isolated, suggesting probable contamination. [facility] Culture Urine 10,000-50,000 CFU/mL urogenital marco Covid-19 Testing completed? On 01/12/2021: not detected Any use of anti-platelet or anti-coagulant medications within the past 7 days? None according to patient Patient did not complete the antibiotics prescribed for her after her last hospitalization, but hermost recent urine culture was negative. PAST MEDICAL [...] Gatherings with Friends and Family: ??? Attends [employer] Services: ??? Active Member of Clubs or [...] Ref Range: Clear, Slt Cloudy Clear Specific [place] UA Latest Ref Range: 1.005 - 1.030 [...] Ref Range: Negative mg/dL Negative Results for JOLLEYALYSHA Gonzalez ( ) as of 12/31/2020 15:30 Ref. [...] and wishes to proceed with above surgery. KRISHNA Scott-[facility], Division of Urologic Surgery Pager: [phone] 01/14/2021 8:30 AM documented in this encounter OR Notes * Operative - Miller Zamora MD - 01/14/2021 2:51 PM CDT NAME: ALYSHA JOLLEY : 1990 AGE: 30 PROC DATE: 01/14/2021 [...] and difficult for stent placement, but a 4.8-Polish stent was able to be navigated across [...] was present for the entire procedure. MD NATALIE Becerril/[place].[id number] Doc ID: [id number] Job ID: [id number] * Brief Op Note - Magan Barajas [...] in ~2 wks (appointment scheduled for 01/25). retirement follow-up for recurrent nephrolithiasis in setting of [...] QUANT Routine 01/14/2021 1:17 PM CDT Nephrolithiasis RI CYSTO/URETERO/PYEL OSCOPY W/LITHOTRIPSY 01/14/2021 12:47 PM CDT Right nephrolithiasis [id number] Reviewed SM OVID 01/11/2021 @9AM [facility] HCG URINE QUALITATIVE - POCT (IP) INTERFACED Routine 01/14/2021 8:18 AM CDT HCG URINE QUAL POCT NOTIFICATION STAT 01/14/2021 8:09 AM CDT Preop examination URINALYSIS NO MICROSCOPIC NO CULTURE STAT 01/14/2021 8:05 AM CDT Preop examination documented in this encounter Results * PATHOLOGY TISSUE (01/14/2021 1:17 PM CDT) Case Report Surgical Pathology Report ? Case: [id number] ? Authorizing Provider: ??Miller Zamora MD ?Collected: ? 01/14/2021 01:17 PM ? Ordering Location: ? [facility] ?Received: ?01/14/2021 03:03 PM ? Pathologist: ? Tammy Brunson MD ? Specimen: ?Calculus, Right ureter calculus ? 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 01/21/2021 9:46 AM [facility] Gross Description The requisition and specimen label(s) are identified with the patient's name, Alysha Jolley. Received fresh, specimen A , right ureter calculus are multiple shelby yellow-brown firm stones measuring 0.1-0.3 cm in greatest dimension. This specimen is for chemical examination only. 01/21/2021 9:46 AM [facility] Disclaimer The performance characteristics of all immunohistochemical and indirect immunofluorescence stains (if any) cited in this report were determined by the Histopathology Laboratory of [facility]. Some of these tests were developed by [...] attending (teaching) pathologist. 01/21/2021 9:46 AM CDT [facility] Embedded Images 01/21/2021 9:46 AM CDT [facility] Gross only CALCULUS SPECIMEN / Unknown 01/14/2021 1:17 PM CDT 01/14/2021 3:03 PM CDT Comment:Pre-op diagnosis: Right nephrolithiasis Miller Zamora MD LAB - PATHOLOGY/CY TOLOGY ORDERABLES Performing Organization Address City/State/[facility] Co de Phone Number [facility] [address] [phone] * STONE ANALYSIS QUANT (01/14/2021 1:17 PM CDT) Calculi Composition See Note 01/28/2021 3:57 PM CDT [facility] [employer] [facility]) Comment: Calculi composed primarily of: 70% [...] composition determined by FTIR analysis. Performed By: [facility] [address] [place] [id number] Traffic Control Signaler: Marisol Velázquez MD Calculi Mass 25 mg 01/28/2021 3:57 PM CDT [facility] [employer] [facility] ([facility]) Calculi Number 4 01/28/2021 3:57 PM CDT [facility] [employer] [facility] ([facility]) Calculi Size Various mm 01/28/2021 3:57 PM CDT [facility] Calculi Description See Note 01/28/2021 3:57 PM CDT [facility] ([facility]) Comment: Specimen consists of four, various sized (1 mm to 9 mm), shelby/white, irregular calculi fragments. Pathology/Cytolo gy CALCULUS SPECIMEN / Unknown Collection / Unknown 01/14/2021 1:17 PM CDT 01/25/2021 10:18 AM CDT Miller Zamora MD LAB - URINE CHEMIS TRY ORDERABLES [facility]) [address] [place] [address], [facility] * HCG URINE QUALITATIVE - POCT (IP) INTERFACED (01/14/2021 8:18 AM CDT) HCG Qual Urine Negative Negative 01/14/2021 8:25 AM CDT [facility] Urine URINE / Unknown 01/14/2021 8 :18 AM CDT 01/14/2021 8:25 AM CDT Miller Zamora MD LAB - POINT OF CAR E ORDERABLES Performing Organization Address [facility]/ZIP Co de Phone Number [address] [address], [place] [phone] * HCG URINE QUAL POCT NOTIFICATION (01/14/2021 8:09 AM CDT) Comment Notification Label Only - See Separate Report 01/14/2021 9:30 AM CDT [facility] Urine URINE / Unknown 01/14/2021 8 :09 AM CDT 01/14/2021 8:09 AM CDT Miller Zamora MD LAB - URINALYSIS O RDERABLES Performing Organization Address City/[facility]/ZIP Co de Phone Number [address] [address], [place] [phone] * (ABNORMAL) URINALYSIS NO MICROSCOPIC NO CULTURE (01/14/2021 8:05 AM CDT) Color UA Yellow Straw, Yellow, Colorless 01/14/2021 10:05 AM [facility] Clarity UA Cloudy(A) Clear, [facility] Cloudy 01/14/2021 10:05 AM [facility] Specific [place] UA 1.023 1.005 - 1.030 01/14/2021 10:05 AM [facility] pH UA 5.0 5.0 - 8.0 pH 01/14/2021 10:05 AM [facility] Protein UA 2+(A) Negative mg/dL 01/14/2021 10:05 AM [facility] Glucose UA Negative Negative mg/dL 01/14/2021 10:05 AM [facility] Ketone UA Negative Negative mg/dL 01/14/2021 10:05 AM [facility] Bilirubin UA Negative Negative mg/dL 01/14/2021 10:05 AM [facility] Blood UA 3+(A) Negative 01/14/2021 10:05 AM [facility] Nitrite UA Negative Negative 01/14/2021 10:05 AM [facility] Leukocyte Esterase 2+(A) Negative 01/14/2021 10:05 AM [facility] Urobilinogen UA Negative Negative mg/dL 01/14/2021 10:05 AM [facility] Urine URINE SPECIMEN OBTAINED BY CLEAN CATCH PROCEDURE / Unknown Collection / Unknown 01/14/2021 8:05 AM [facility] 01/14/2021 9:53 AM [facility] Narrative [facility] - 01/14/2021 10:05 AM [facility] Paras Han MD LAB - URINALYSIS ORD ERABLES [facility] [address] [place] [address], [facility] [phone] documented in this encounter Visit Diagnoses Diagnosis Preop examination- Primary Preoperative examination, unspecified Nephrolithiasis Calculus of kidney Right nephrolithiasis Right nephrolithiasis documented in this encounter Administered [...] PACU iopamidol (Isovue 300) 61 % contrast PRN, Starting on Thu01/14/21 at 1255, Until Thu01/14/21 at 1403, Intra-op $ Given 01/14/2021 12:55 PM CDT 5 mL labetalol (Normodyne; Trandate) injection 5 mg 5 [...] ($ Given - Prov ider: Caroline Santoro, YARD RIGGER-SLIP COVER ESTIMATOR) diphenhydrAMINE (Benadryl) injection 25 mg 25 mg, [...] [id number] ($ Given - Prov ider: Ankita Rose RN) Linked Groups Order Group 1: SALINE [...] Pre-op documented in this encounter Care Teams Maintenance Operator Relationship Specialty Start Date End Date Rema Austin MD [address] [place] [id number] PCP - General Family Medicine 11/24/20 02/20/21 documented as of this encounter
--- OUTSIDE RECORDS SUMMARY | 2024-09-25 11:44 | XMS_ITS | Encounter Summary ---
Author Organization [facility] Address [address] [place] [address] Care Team Providers Care Gear Shaper Set Up Operator Name Role Phone Rema Austin MD Primary Care Provider [phone] Reason for Visit * Auth/Cert Specialty Diagnoses / Procedures Referred By Norm benjamin Referred To Contact Diagnoses Right nephrolithiasis Right nephrolithiasis Procedures CYSTOSCOPY WITH RETROGRADE PYELOGRAM CYSTOSCOPY URETEROSCOPY WITH LASER/HOLMIUM LITHOTRIPSY Referral ID Status Reason Start Date Expiration Date Visits Re quested Visits Authorized [id number] 1 1 Encounter Details Date Type Department Care Team (Late st Contact Info) Description 01/14/2021 12:12 PM CDT Anesthesia Event [facility] OP [address] [place] [address] Paras Han MD [address] [place] [address] Foreign Jane Anes Asst [address] [place] [address] Anesthesia Record Procedure Summary Procedure Name Responsible Anesthesiologist Anesthesia Start Time Anesthesia Stop Time Cystoscopy, Right Ureteroscopy, Right Laser Lithotripsy, stone extraction, right retrograde pyelogram and possible right ureteral stent exchange (Right: Ureter) Paras Han MD 01/14/21 1212 01/14/21 1350 Events Date Time Event Comment 01/14/2021 1012 1212 Pt In Room 1212 An Start 1212 An Start Data 1216 Anes Timeout 1216 Induction 1222 PT Reassessment 1222 An LMA 1222 Anes Ready 1247 Time Out Anesthesia part icipated in timeout at the time documented in the record by nursing 1247 Proc Start 1337 Proc Stop 1337 An Emergence 1340 An LMA Removed 1343 an stop data 1348 Pt out of Room 1348 ANPTO2 1349 Electnc Sig 1350 An Stop Meds Name Total midazolam 2 mg/2mL injection 2 mg fentaNYL 100 mcg/2ml injection 200 mcg propofol 200mg/20mL injection 160 mg lidocaine PF 2% 100 mg phenylephrine 40 mcg/ml 10 ml syringe 50 0 mcg ondansetron 4mg/2mL injection 4 mg ciprofloxacin (Cipro) 400 mg in 200 mL I VPB 400 mg dexamethasone (Decadron) 10 mg/ml inject ion 5 mg LR (Lactated ringers) 1,600 mL * Agents Name Insp. N2O Exp. Sevoflurane Exp. N2O O2 Air Insp. Sevoflurane * Blood No blood administrations on file. Lines, Drains, and Airways Type Details Placement Removal Peripheral IV Date: 01/14/21; Time : 0856; Orientation: Left; Placed By: CHELITA James RN; Tolerance: Well 01/14/21 0856 by Ankita James RN 01/14/21 1514 by Anita Jones RN LMA 01/14/21; 1222 (created via procedure documentation); USHA Bians; 100% O2; Standard IV; easy mask; LMA; 4.0; Bilateral breath sounds, Chest Auscultation, CO2 Monitor; 01/14/21; 1340 01/14/21 1222 by Caroline Santoro APRN-CRNA 01/14/21 1340 by Caroline Santoro APRN-CRNA Procedural Site (Incision) 01/14/21; 1257; Perineum; Procedure performed via urethra - no incisions made; 01/14/21; 2234 01/14/21 1257 by Olga Gibbs RN 01/14/21 2234 by One[employer], Auto Release documented in this encounter Social History Tobacco [...] as of this encounter Progress Notes * Paras Han MD - 01/14/2021 4:35 PM CDT ANESTHESIA POSTOP EVALUATION NOTE Procedure: Cystoscopy, Right Ureteroscopy, Right Laser Lithotripsy, stone extraction, right retrograde pyelogram and possible right ureteral stent exchange (Right Ureter) DaTreshasha Rivers is a 30 year old female Patient Vitals for the past 6 hrs: BP Temp Pulse Resp SpO2 Pain Rating Score #1 Pain Scale/Observation 01/14/21 1117 -- -- -- -- -- 8 N 01/14/21 1350 96/57 97 ??F (36.1 ??C) 97 18 100 % -- B 01/14/21 1355 86/74 -- 96 12 97 % -- -- 01/14/21 1400 101/61 -- 93 20 94 % -- -- 01/14/21 1405 85/61 97.4 ??F (36.3 ??C) 96 13 95 % -- B 01/14/21 1410 105/69 -- 87 17 96 % -- -- 01/14/21 1415 119/81 -- 87 14 97 % -- -- 01/14/21 1420 111/78 -- 80 17 99 % 2 N 01/14/21 1425 102/60 -- 80 16 95 % -- -- 01/14/21 1430 102/66 -- 73 17 94 % -- -- 01/14/21 1435 105/60 -- 76 19 95 % -- -- 01/14/21 1450 101/56 -- 70 9 98 % 3 N 01/14/21 1500 99/65 -- 77 22 98 % 4 N 01/14/21 1510 107/75 -- 75 12 97 % 3 N 01/14/21 1515 112/82 -- 85 9 99 % 2 N 01/14/21 1530 -- -- -- -- -- 5 N 01/14/21 1612 -- -- -- -- -- -- N 01/14/21 1630 -- -- -- -- -- 10 N Anesthesia Type: general LMA Pre-op Diagnosis Codes: * Right nephrolithiasis [N20.0] Mental Status: awake and sufficiently recovered from acute administration of anesthesia to participate in the evaluation Neuro Status: No numbness, tingling or visual disturbances Respiratory Function: natural Cardiac Function: stable Postop Pain: acceptable to the patient and adequate Postop Hydration: adequate Postop Nausea: none Assessment: no apparent anesthetic complications, patient tolerated procedure well and no evidence of recall Patient Disposition: Release from Anesthesia Care COMPLICATIONS: No complications documented. * Paras Han MD - 12/31/2020 12:15 PM CDT ANESTHESIA PREOPERATIVE EVALUATION NOTE Procedure: CYSTOSCOPY, right RETROGRADE PYELOGRAM (Right ) URETEROSCOPY, LASER LITHOTRIPSY, stone extraction, possible stent exchange (Right ) Vitals: No data found. ANESTHESIA PRE-EVALUATION NOTE History of Present Illness: 30F hx of horseshoe kidney presented with abdominal pain, CT with Right nephrolithiasis. Plan CYSTOSCOPY, right RETROGRADE PYELOGRAM (Right ) URETEROSCOPY, LASER LITHOTRIPSY, stone extraction, possible stent exchange (Right ). She reports a hx GERD (takes tums), Obesity, asthma (no inhaler most recent use > 6 yrs go) Feels like she is breathing well, does not use an inhaler. Allergies: Augmentin, Vicodin Physical Exam: Orientation X3 Airway/Mallampati Score: II Mouth Opening Distance: 3 fingerwidths Neck ROM: full TM Distance: > 3 FB Teeth: normal Heart: normal - S1 S2 Lungs: clear to ausculation bilaterally Abdomen Exam: normal Physical Exam Additional Comments: Pain when urinating, hematuria and lower abdominal/pelvic pain. Message sent to Urology Review of Systems: History of anesthetic complications: No Malignant Hyperthermia: No GERD: Yes (2 times per month takes tums), well controlled Poor Exercise Tolerance: No Recent Chest Pain: No Shortness of Breath: No AICD/Pacemaker: No Renal Disease: Yes (horseshoe kidney, normal renal function) Diagnostic Tests: Lab(s) reviewed: Yes. ANESTHESIA PLAN ASA Score: 2 NPO Status: Patient instructed to be NPO after midnight, No liquids within 2 hours and No solids since midnight Anesthesia Plan: general and general LMA Planned Induction: intravenous Planned Postop Destination: PACU Anesthetic plan was discussed with: patient Anesthetic Plan discussion was: Consented The patient's procedural Anesthetic Plan was discussed with the CONTROL CLERK AUDITING. BMI, Height, Weight Tobacco History Estimated body mass index is 34.24 kg/m?? as calculated from the following: Height as of 12/31/20: 1.626 m (5' 4 ). Weight as of 12/31/20: 90.5 kg (199 lb 8 oz). Social History Tobacco Use Smoking Status Current Every Day Smoker ??? Packs/day: 0.50 ??? Types: Cigarettes ??? Last attempt to quit: 02/13/2019 ??? Years since quittin.8 Smokeless Tobacco Never Used Alcohol History Drug History Social History Substance and Sexual Activity Alcohol Use Yes ??? Alcohol/week: 0.0 standard drinks Comment: occ Social History Substance and Sexual Activity Drug Use Not Currently ??? Types: Marijuana Outpatient Medications: Inpatient Medications: No outpatient medications have been marked as taking for the 01/14/21 encounter (Anesthesia Event) with Parish Taylor APRN-CNP. No current facility-administered medications for this visit. Allergies: Allergies Allergen Reactions ??? Augmentin Rash Hives ??? Vicodin [Hydrocodone-Acetaminophen] Urticaria Relevant Problems (+) Nephrolithiasis Problem List: Patient Active Problem List Diagnosis Date Noted ??? Nephrolithiasis 11/24/2020 Priority: Not Prioritized ??? GBS (group B streptococcus) UTI complicating 08/07/2014 Medical History: Past Medical History: Diagnosis Date ??? Asthma remote ??? Chlamydia this ??? GBS (group B streptococcus) UTI complicating 08/07/2014 ??? History of anemia ??? History of sexually transmitted disease ??? Kidney stones ??? Migraines ??? depression ??? Trichomonas Treated this Surgical History: Past Surgical History: Procedure Laterality Date ??? CYSTOSCOPY N/A 11/24/2020 N/A; Cystoscopy; Right Retrograde Pyelogram; Stent Placement ??? CYSTOSCOPY Right 11/25/2020 Right; CYSTOSCOPY WITH RIGHT RETROGRADE PYELOGRAM; STENT PLACEMENT ??? Lithotripsy ??? NEGATIVE SURGICAL HISTORY Lab Results: Recent Labs Component Name 11/24/20 0609 HCGURINE Negative Recent Labs Component Name 11/26/20 0450 WBC 7.6 RBC 4.05 HCT 32.6* HGB 10.6* PLTCOUNT 315 MCV 80.5* MCH 26.2* MCHC 32.5 MPV 9.9 Recent Labs Component Name 12/28/20 1128 11/24/20 0609 BLOODU - Negative WBCU - 21-50* WBCUA 20-40* - NITRITEUA NEGATIVE - NITRITE - Negative PROTEINUA 2+* - PROTEINU - 1+* Recent Labs Component Name 11/26/20 0450 POTASSIUM 3.9 CALCIUM 9.3 CO2 26 GLUCOSE 116* BUN 14 CREATININE 0.7 No results found for requested labs within last 120 days. Recent Labs Result Component Current Result Alkaline Phosphatase 44 (11/24/2020) ALT 5 (11/24/2020) Anion Gap 13 (11/26/2020) AST 10 (11/24/2020) eGFR >60 (11/26/2020) PAT Evaluation summary: I. Perioperative Cardiac Risk Index Stratification based on 2014 ACC/AHA Guidelines Perioperative risk of a Major Adverse Cardiac Event (MACE). Add one point (0-6) for each positive RCRI (Revised Cardiac Risk Index) Is the surgery high-risk? no Intraperitoneal Intrathoracic Major vascular Neurosurgical spine or craniotomy History of ischemic heart disease? no Recent VA with 60 days = very high risk of MACE, requires cardiac consultation History of VA > 60 days History of positive stress test Current chest pain considered due to myocardial ischemia Use of nitrate therapy ECG with pathologic Q waves History of congestive heart failure? no Pulmonary edema, bilateral rales or S3 gallop Paroxysmal nocturnal dyspnea CXR showing pulmonary vascular congestion History of cerebrovascular disease? no Prior TIA or stroke Carotid bruit on exam? no Copy and paste any recent carotid duplex results here Insulin-dependent Diabetes? no Preoperative creatinine > 2 mg/dl? no RCRI correlation with MACE ([email or web address]/[email or web address]-[email or web address], originally validated by Danis T. Circulation. 1999;100:9144-6444) 0 Points - 0.4% risk 1 Point - 0.9% risk 2 Points - 6.6% risk 3 or more Points - 11% risk This patient has 0 RCRI and the risk of MACE= 0.4 % If MACE < 1%, no further testing required. Proceed to surgery. Patient is at low risk of MACE. If MACE > 1% Elevated risk. Need to assess the patient's functional capacity. 4 METs = Can walk up a flight of steps or a hill or walk on level ground at 3 mph If > 4 METs. Proceed to surgery. If < 4 METs or unknown functional capacity then discuss with attending, as further workup may beindicated. (Source: 2013 ACC/AHA Guideline on Perioperative Cardiovascular Evaluation and Management of Patients Undergoing Noncardiac Surgery) II. Consults: Cardiology / medicine/ other risk stratification or consults requested: no (date and results): III. CIEDs (cardiovascular implantable electronic device) Patient does not have any CIEDs If yes then complete as below and place interrogation report in chart Information needed (ready to wear department manager, mode, indication for CIED, battery life, magnet function, PM dependence): Call PAT director or tail board man to discuss any patient with a CIED Timing of interrogation should be: Within 1 year for PM and Within 6 months for AICD (Source: 2010 The Heart Rhythm Society (HRS)/[place] Society [employer] Anesthesiologists (ASA) Expert Consensus Statement on the Perioperative Management of Patients with Implantable Defibrillators, Pacemakers and Arrhythmia Monitors: Facilities and Patient Management) IV. Anticoagulants Is patient receiving antiplatelet/ anticoagulant medications. no If yes then describe the periop plan / last dose / bridging, etc) V. Previous transfusions / blood products If high risk procedure or risk of blood loss > 250 ml, then order: - 1st Type and Screen in PAT AND 2nd Type and Screen for DOS OR - If patient is not seen in PAT then order a T&S for DOS (We will need an additional re-type which blood bank will automatically send to ACU. [facility] requires a 2nd confirmatory T&S before releasing crossmatched blood) Previous blood transfusion? no - If patient had a previous transfusion and likelihood of surgical blood loss is >250ml or a high risk procedure, then every attempt should be made to obtain a T&S in PAT, otherwise patient should be instructed to arrive early or not scheduled as a first start case. Please call dairy farmworker to discuss plan and document here: Patients with previous transfusions may have developed alloantibodies to donor RBC surface antigens, which may cause hemolytic or delayed hemolytic transfusion reactions upon subsequent exposure to donor PRBCs. . Most recent EKG ( results and date) EKG needed with 3 months if: (based upon 2014 ACC / AHA guidelines) ASA > 2 OR any RCRI (including high risk surgery) VII. Additional testing needed within 1 month prior to DOS (if possible, else on DOS) - CBC w/o diff if ASA >2 OR expected blood loss >250 OR previously abnormal - BMP is ASA >2 OR taking diuretics, K+ supplements, MATHIEU-I, ARBs OR any RCRI (including high risk procedure) - for patients with DM, refer to PCP or under cutter for BG >200 - CMP (instead of BMP) for patient with chronic liver disease or previously abnormal -PT/ PTT/ INR if recent use of anticoagulants (VKAs, DTIs, fXa-I) OR vascular procedures Additional testing needed on DOS as below: - EPOC blood glucose on DOS - EPOC whole blood K+ for patient with ESRD or poorly controlled K+ - any test above not previously available in PAT Covid-19 TBS Any additional tests ordered by the surgical team: Yes- Covid-19 to be reviewed by surgeon Summary: Jumana Rivers is a 30 year old female presenting for CYSTOSCOPY, right RETROGRADE PYELOGRAM (Right ) URETEROSCOPY, LASER LITHOTRIPSY, stone extraction, possible stent exchange (Right ). They have an ASA score of ASA 2 and 0 RCRI, which correlates with a MACE score of _0.4%. She is medically optimized for this procedure. (If not, explain here:) Labs/ tests ordered for DOS: (poct ) Preoperative plan was not discussed w/ PAT attending (date and name). To be discussed DOS in ACU. PAT evaluation is complete including review of all pending consults, CIEDs, review of labs ordered in PAT. (Please note that the evaluation is NOT complete until all the above have been reviewed) documented in this encounter Procedure Notes * Caroline Santoro, DIRECTOR OF OUTPATIENT SERVICES-CONTROL CLERK AUDITING - 01/14/2021 12:24 PM CDTAssociated Order(s): LMA Placement LMA Placement Procedure/LDA Note: Patient Location: OR. LMA Insertion Date/Time: 01/14/2021 12:22 PM Procedure: LMA. Pretreatment: 100% O2 Induction: standard IV Patient position: supine. Mask Ventilation: easy Type: LMA Size: 4 Number of Attempts: 1. Placement verified by: bilateral breath sounds, CO2 monitor and chest auscultation Dentition unchanged? Yes Procedure Start Time: 01/14/2021 12:22 PM. Staff Section Anesthesia Provider: Caroline Santoro APRN-CRNA, Performed the procedure documented in this encounter Miscellaneous Notes * Anesthesia Transfer of Care - Caroline Santoro APRN-CRNA - 01/14/2021 1:44 PM CDT ANESTHESIA TRANSFER OF CARE NOTE Today's Date: 01/14/2021 Date of : 1990 Patient: Jumana Rivers Procedure(s): Cystoscopy, Right Ureteroscopy, Right Laser Lithotripsy, stone extraction, right retrograde pyelogram and possible right ureteral stent exchange Surgeon(s): Primary: Miller Zamora MD Resident - Assisting: Magan Barajas MD Preop Diagnosis: Pre-op Diagnois: * Right nephrolithiasis [N20.0] Pre-op Meds (From admission, onward) Start Stop Status Route Frequency Ordered 01/14/21 0809 0.9% NaCl injection 1-10 mL -- Dispensed IK PRN 01/14/21 0809 01/14/21 0815 0.9% NaCl injection 3 mL -- Dispensed IK EVERY 8 HOURS 01/14/21 0809 01/14/21 0900 ciprofloxacin (Cipro) 400 mg in 200 mL IVPB 01/14 1222 Completed IV ONCE 01/14/21 0809 01/14/21 1231 dexamethasone (Decadron) injection -- Sent IV PRN 01/14/21 1232 01/14/21 1212 fentaNYL (PF) (Sublimaze) injection -- Sent IV PRN 01/14/21 1225 01/14/21 1255 iopamidol (Isovue 300) 61 % contrast -- Sent PRN 01/14/21 1256 01/14/21 0815 lactated ringers infusion -- Dispensed IV CONTINUOUS 01/14/21 0809 01/14/21 1212 lactated ringers infusion -- Sent IV CONTINUOUS PRN 01/14/21 1225 01/14/21 1212 lidocaine hcl (PF) (Xylocaine Mpf) 2 % injection -- Sent INFILTRATION PRN 01/14/21 1225 01/14/21 0809 lidocaine PF (Xylocaine Mpf) 1 % injection 0.2 mL -- Verified ID ONCE PRN 01/14/21 0809 01/14/21 1212 midazolam (Versed) injection -- Sent IV PRN 01/14/21 1227 01/14/21 1212 Ondansetron HCl (Zofran) injection -- Sent IV PRN 01/14/21 1225 01/14/21 1258 phenylephrine 40 mcg/ml custom syringe -- Sent IV PRN 01/14/21 1303 01/14/21 1216 propofol (Diprivan) injection -- Sent IV PRN 01/14/21 1225 Post-op Diagnosis: * Right nephrolithiasis [N20.0] . Allergies Allergen Reactions ??? Augmentin Rash Hives ??? Vicodin [Hydrocodone-Acetaminophen] Urticaria Vitals: Patient Vitals for the past 3 hrs: Pain Rating Score #1 01/14/21 1117 8 Lines, Drains, and Airways Type Details Placement Removal Peripheral IV Date: 01/14/21; Time: 0856; Orientation: Left; Location: Hand; Placed By: CHELITA James RN; Gauge: 18 Gauge; Locals: None; Tolerance: Well 01/14/21 0856 by Ankita James RN LMA 01/14/21; 1222 (created via procedure documentation); USHA Bains; 100% O2; Standard IV; easy mask; LMA; 4.0; Bilateral breath sounds, Chest Auscultation, CO2 Monitor; 01/14/21; 1340 01/14/21 1222 by Caroline Santoro APRN-CRNA 01/14/21 1340 by Caroline Santoro APRN-CRNA Intraprocedure I/O Totals Intake LR (Lactated ringers) 1600.00 mL Total Intake 1600 mL Patient Transfer Location: PACU Transport Airway: spontaneous respirations and supplemental O2 Transport Monitoring: heart rate and continuous pulse oximetry Complications: None Handoff Given? Yes Checklist or Protocol - The gu handoff elements that must be included in the transfer of care checklist include: 1. Identification of patient. 2. Identification of responsible practitioner (PACU nurse or advanced practitioner). 3. Discussion of pertinent medical history. 4. Discussion of the surgical/procedure course (procedure, reason for surgery, procedure performed). 5. Intraoperative anesthetic management and issue/concerns. 6. Expectations/Plans for the early post-procedure period. 7. Opportunity for questions and acknowledgement of understanding of report from the receiving PACUteam. USHA Bains documented in this encounter Plan of Treatment Not on file documented as of this encounter Procedures Procedure Name Priority Date/Time Associated Diagnosis Comments LARYNGEAL MASK AIRWAY Routine 01/14/2021 12:24 PM CDT documented in this encounter Results * LARYNGEAL MASK AIRWAY (01/14/2021 12:24 PM [...] Staff Section ?? Anesthesia Provider: Caroline Santoro APRN-CRNA, Performed the procedure Paras Han MD GENERAL ANESTHESIA O DOMI documented in this encounter Visit Diagnoses Not on filedocumented in this encounter Administered Medications Inactive Administered Medications - up to 3 most recent administrations Medication Order MAR Action Action Date Dose Rate Site ciprofloxacin (Cipro) 400 mg in 200 mL IVPB 400 mg, at 200 mL/hr, Intravenous, ONCE, 1 dose, On Thu01/14/21 at 0900, Indication for anti-infective therapy: Surgical prophylaxis, Intra-op $ Given 01/14/2021 12:22 PM CDT 400 mg dexamethasone (Decadron) injection Intravenous, PRN, Starting on Thu01/14/21 at 1231, Until Thu01/14/21 at 1350, Anesthesia Intra-op $ Given 01/14/2021 12:31 PM CDT 5 mg fentaNYL (PF) (Sublimaze) injection Intravenous, PRN, Starting on Thu01/14/21 at 1212, Until Thu01/14/21 at 1350, Anesthesia Intra-op $ Given 01/14/2021 1:28 PM CDT 50 mcg $ Given 01/14/2021 12:51 PM CDT 50 mcg $ Given 01/14/2021 12:16 PM CDT 75 mcg lactated ringers infusion Intravenous, CONTINUOUS PRN, Starting on Thu01/14/21 at 1212, Until Thu01/14/21 at 1350, Anesthesia Intra-op $ New Bag/Syringe 01/14/2021 1:00 PM CDT $ New Bag/Syringe 01/14/2021 12:12 PM CDT lidocaine hcl (PF) (Xylocaine Mpf) 2 % injection Infiltration, PRN, Starting on Thu01/14/21 at 1212, Until Thu01/14/21 at 1350, Anesthesia Intra-op $ Given 01/14/2021 12:16 PM CDT 50 mg $ Given 01/14/2021 12:12 PM CDT 50 mg midazolam (Versed) injection Intravenous, PRN, Starting on Thu01/14/21 at 1212, Until Thu01/14/21 at 1350, Anesthesia Intra-op $ Given 01/14/2021 12:12 PM CDT 2 mg Ondansetron HCl (Zofran) injection Intravenous, PRN, Starting on Thu01/14/21 at 1212, Until Thu01/14/21 at 1350, Anesthesia Intra-op $ Given 01/14/2021 12:12 PM CDT 4 mg phenylephrine 40 mcg/ml custom syringe Intravenous, PRN, Starting on Thu01/14/21 at 1258, Until Thu01/14/21 at 1350, Anesthesia Intra-op $ Given 01/14/2021 1:22 PM CDT 150 mcg $ Given 01/14/2021 1:12 PM CDT 150 mcg $ Given 01/14/2021 1:07 PM CDT 100 mcg propofol (Diprivan) injection Intravenous, PRN, Starting on Thu01/14/21 at 1216, Until Thu01/14/21 at 1350, Anesthesia Intra-op $ Given 01/14/2021 12:16 PM CDT 160 mg documented in this encounter Care Teams Gear Shaper Set Up Operator Relationship Specialty Start Date End Date Rema Austin MD [address] [place] [id number] PCP - General Family Medicine 11/24/20 02/20/21 documented as of this encounter
--- OUTSIDE RECORDS SUMMARY | 2024-09-25 11:44 | XMS_ITS | Encounter Summary ---
Author Organization [facility] Address [address] [place] [address] Care Team Providers Care Print Line Operator Name Role Phone Rema Austin MD Primary Care Provider [phone] Reason for Visit * Reason Onset Date Comments Results 01/02/2021 Encounter Details Date Type Department Care Team (Late st Contact Info) Description 01/02/2021 Telephone [facility] [address] [place], [place] [id number] Candice Mcfadden, RN Results Social History Tobacco Use Types Packs/Day [...] Miscellaneous Notes * Telephone Encounter - Candice Mcfadden, RN - 01/02/2021 3:28 PM CDT Reviewed patient's UA and culture results with her. Patient encouraged to call with additional questions or concerns. Voiced understanding and is amenable to plan. documented in this encounter Plan of Treatment Not on file documented as of this encounter Visit Diagnoses Not on filedocumented in this encounter Care Teams Print Line Operator Relationship Specialty Start Date End Date Rema Austin MD [address] [place] [address] PCP - General Family Medicine 11/24/20 02/20/21 documented as of this encounter
--- OUTSIDE RECORDS SUMMARY | 2024-09-25 11:44 | XMS_ITS | Encounter Summary ---
Author Organization [facility] Health Address [address] [facility] [place] [address] Care Team Providers Care Shrimp Pond Laborer Name Role Phone Rema Austin MD Primary Care Provider [phone] Encounter Details Date Type Department Care Team (Latest Contact Info) Description 01/12/2021 2:25 PM CDT - 01/12/2021 11:59 PM CDT Hospital Encounter [facility] [address] [place] [phone] Miller Zamora MD [address] [facility] 2L DIV [place] [address] Discharge Disposition: Home or Self Care Social [...] for Pain 30 tablet 03/15/2019 albuterol HFA (PROVENTIL;VENTOLIN;WI OAIR) 108 (90 BASE) MCG/ACT inhaler Inhale [...] after a meal. 30 capsule 01/14/2021 07/04/2021 tamsulosin (FLOMAX) 0.4 MG capsule Take 1 (one) capsule by mouth once daily At the same time every day after a meal. 30 capsule 1 11/25/2020 01/14/2021 traMADol (ULTRAM) 50 MG tablet Take 1 (one) tablet by mouth every 6 hours as needed (for severe post op pain) . Do not drink alcohol, drive, or operate heavy machinery while taking this medication. 12 tablet 01/14/2021 02/21/2021 documented as of this encounter Plan of Treatment Not on file documented as of this encounter Procedures Procedure Name Priority Date/Time Associated Diagnosis Comments SARS-COV-2 (COVID-19) IN HOUSE Routine 01/12/2021 2:06 PM CDT Nephrolithiasis Pre-op testing documented in this encounter Results * SARS-COV-2 (COVID-19) PRE-SURICAL/PROCEDURE (01/12/2021 2:06 PM CDT) COVID-19 PCR Not detected Not detected 01/12/2021 9:23 PM CDT [facility] Microbiology SPECIMEN FROM NASOPHARYNGEAL STRUCTURE / Unknown Collection / Unknown 01/12/2021 2:06 PM CDT 01/12/2021 2:26 PM CDT Narrative [facility] - 01/12/2021 9:23 PM CDT This nucleic acid amplification assay performance was validated by [facility]. This test has been authorized [...] Miller Zamora MD LAB - MICROBIOLOGY ORDERABLES Performing Organization Address City/State/[facility] Co de Phone Number [facility] [address] [place] [address] [phone] documented in this encounter Visit Diagnoses Diagnosis Nephrolithiasis Calculus of kidney Pre-op testing Preoperative examination, unspecified documented in this encounter Additional Health Concerns Infection Onset Date Last Indicated Resolved Time COVID-19 Under Investigation 01/12/2021 01/12/2021 01/12/2021 9:23 PM CDT documented as of this encounter Care Teams Shrimp Pond Laborer Relationship Specialty Start Date End Date Rema Austin MD [address] [place] [address] [place] [address] PCP - General Family Medicine 11/24/20 02/20/21 documented as of this encounter
--- OUTSIDE RECORDS SUMMARY | 2024-09-25 11:45 | XMS_ITS | Encounter Summary ---
Author Organization [facility] Health Address [address] [facility] [place] [address] Care Team Providers Care Sisal Operator Name Role Phone Rema Austin MD Primary Care Provider [phone] Reason for Visit * Reason Onset Date Comments Follow-up 12/20/2020 Encounter Details Date Type Department Care Team (Late st Contact Info) Description 12/20/2020 Telephone [facility] [address] [place] [address] Candice Mcfadden, RN Follow-up Social History Tobacco Use Types Packs/Day Years Used Date Smoking Tobacco: Every Day Cigarettes Last attempted to quit: 02/13/2019 Smokeless Tobacco: Never Alcohol Use Standard Drinks/Week [...] Telephone Encounter - Candice Mcfadden RN - 12/20/2020 8:41 AM CDT Patient calls with concerns of UTI. SX: Cystoscopy, right retrograde pyelogram, right ureteral stent placement on 11/[address] Zamora. C/O dysuria, and general discomfort to her side. She states she lost her antibiotic RX, requests new one. Nurse entered orders and faxed them to [facility]. Patient to have UA and culture completed today. Advised to alternate Tylenol and NSAIDS in theinterim. Letter for work extending her leave emailed to patient. Patient encouraged to call with additional questions or concerns. Voiced understanding and is amenable to plan. documented in this encounter Plan of Treatment Not on file documented as of this encounter Visit Diagnoses Not on filedocumented in this encounter Care Teams Sisal Operator Relationship Specialty Start Date End Date Rema Austin MD [address] [place] [address] [place] [phone] PCP - General Family Medicine 11/24/20 02/20/21 documented as of this encounter
--- OUTSIDE RECORDS SUMMARY | 2024-09-25 11:45 | XMS_ITS | Encounter Summary ---
Author Organization [facility] Health Address [address] [facility] [place] [address] Care Team Providers Care Air Bag Buffer Name Role Phone Rema Austin MD Primary Care Provider [phone] Reason for Visit * Reason Onset Date Comments Surgical Follow-up 11/28/2020 KIDNEY STONE 11/28/2020 Encounter Details Date Type Department Care Team (Late st Contact Info) Description 11/28/2020 Telephone [facility] [address] [place], [place] [id number] Lsia Madsen RN Surgical Follow-up; KIDNEY STONE Social History Tobacco Use Types Packs/Day Years [...] encounter Miscellaneous Notes * Telephone Encounter - Lisa Madsen RN - 11/28/2020 3:24 PM CDT Patient reports nausea and dizziness. Feels like she will pass out when she turns her head and she feels jittery. Symptoms began and gradually worsened after stent placement procedure 3 days ago. He appetite has since decreased. She reports she stopped taking oxycodone yesterday because she thought she was taking too much. Also noted pink tinged urine with small clots. Able to keep fluids down, afebrile, no chills. She reports the pain is manageable and however concerned about the nausea and dizziness. 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 Resident recommends she contact her PCP as pain and dizziness likely not related to stent placement.Relayed message to patient. Advised her not to take narcotics on empty stomach and try OTC pain relievers. documented in this encounter Plan of Treatment Not on file documented as of this encounter Visit Diagnoses Not on filedocumented in this encounter Care Teams Air Bag Buffer Relationship Specialty Start Date End Date Rema Austin MD [address] [place] [address] PCP - General Family Medicine 11/24/20 02/20/21 documented as of this encounter
--- OUTSIDE RECORDS SUMMARY | 2024-09-25 11:45 | XMS_ITS | Encounter Summary ---
Author Organization [facility] Health Address [address] [place] [address] Care Team Providers Care Manager French Name Role Phone Rema Austin MD Primary Care Provider [phone] Encounter Details Date Type Department Care Team (Latest Contact Info) Description 12/31/2020 Travel Social History Tobacco Use Types Packs/Day [...] on filedocumented in this encounter Care Teams Manager French Relationship Specialty Start Date End Date Rema Austin MD [address] [place] [address] [place] [phone] PCP - General Family Medicine 11/24/20 02/20/21 documented as of this encounter
--- OUTSIDE RECORDS SUMMARY | 2024-09-25 11:45 | XMS_ITS | Encounter Summary ---
Author Organization [facility] Address [address] [facility] [place] [address] Care Team Providers Care Zigzagger Name Role Phone Rema Austin MD Primary Care Provider Reason for Visit * Reason Onset Date Comments Follow-up 12/31/2020 Encounter Details Date Type Department Care Team (Late st Contact Info) Description 12/31/2020 Telephone [facility] [address] [place] [address] Candice Mcfadden, RN Follow-up Social [...] Telephone Encounter - Candice Mcfadden, RN - 12/31/2020 1:02 PM CDT Patient states she's experiencing flank pain and isn't allowed to take NSAIDS due to her scheduled surgery. Nurse advised patient to take OTC Tylenol and use comfort measures such as a heating pad toalleviate pain. Patient left sample today for urinalysis and culture. We haven't received her results of the same from [facility] collected last week. Patient encouraged to call with additional questions or concerns. Voiced understanding and is amenable to plan. ----- Message from Julianne Tate RN sent at 12/31/2020 12:39 PM CDT ----- Regarding: Patient having compliants Good afternoon Patient was in PAT today and has urinary complaints. She states she can not reach anyone in the office. Please give her a call. Respectfully Julianne documented in this encounter Plan of Treatment Not on file documented as of this encounter Visit Diagnoses Not on filedocumented in this encounter Care Teams Zigzagger Relationship Specialty Start Date End Date Rema Austin MD [address] [place] [phone] PCP - General Family Medicine 11/24/20 02/20/21 documented as of this encounter
--- OUTSIDE RECORDS SUMMARY | 2024-09-25 11:45 | XMS_ITS | Encounter Summary ---
Author Organization [facility] Health Address [address] [facility] [place] [address] Care Team Providers Care Impregnation Operator Name Role Phone Rema Austin MD Primary Care Provider [phone] Encounter Details Date Type Department Care Team (Latest Contact Info) Description 12/31/2020 11:15 AM CDT - 12/31/2020 11:59 AM CDT Hospital Encounter [facility] OP DRAW STATION [address] [place] [phone] Discharge Disposition: Home or Self Care Social [...] for Pain 30 tablet 03/15/2019 albuterol HFA (PROVENTIL;VENTOLIN;DC OAIR) 108 (90 BASE) MCG/ACT inhaler Inhale [...] Procedure Name Priority Date/Time Associated Diagnosis Comments URINALYSIS NO MICROSCOPIC NO CULTURE Routine 12/31/2020 12:46 PM CDT Dysuria CULTURE URINE Routine 12/31/2020 12:46 PM CDT Dysuria documented in this encounter Results * (ABNORMAL) URINALYSIS NO MICROSCOPIC NO CULTURE (12/31/2020 12:46 PM CDT) Color UA Yellow Straw, Yellow, Colorless 12/31/2020 1:52 PM CDT [facility] Clarity UA Clear Clear, t Cloudy 12/31/2020 1:52 PM CDT [facility] Specific [place] [facility] UA 1.016 1.005 - 1.030 12/31/2020 1:52 PM CDT [facility] pH UA 7.0 5.0 - 8.0 pH 12/31/2020 1:52 PM CDT [facility] Protein UA 1+(A) Negative mg/dL 12/31/2020 1:52 PM CDT [facility] Glucose UA Negative Negative mg/dL 12/31/2020 1:52 PM CDT [facility] Ketone UA Negative Negative mg/dL 12/31/2020 1:52 PM CDT [facility] Bilirubin UA Negative Negative mg/dL 12/31/2020 1:52 PM CDT [facility] Blood UA 2+(A) Negative 12/31/2020 1:52 PM CDT [facility] Nitrite UA Negative Negative 12/31/2020 1:52 PM CDT [facility] Leukocyte Esterase 1+(A) Negative 12/31/2020 1:52 PM CDT [facility] Urobilinogen UA Negative Negative mg/dL 12/31/2020 1:52 PM CDT [facility] Urine URINE SPECIMEN OBTAINED BY CLEAN CATCH PROCEDURE / Unknown Collection / Unknown 12/31/2020 12:46 PM CDT 12/31/2020 1:28 PM CDT Narrative [facility] - 12/31/2020 1:52 PM CDT Miller Zamora MD LAB - URINALYSIS O RDERABLES [facility] [address] [place] [address], [facility] [phone] * CULTURE URINE (12/31/2020 12:46 PM CDT) Culture Urine 10,000-50,000 CFU/mL urogenital marco CHRYSTAL 01/02/2021 7:18 AM CDT [facility] Urine URINE SPECIMEN OBTAINED BY CLEAN CATCH PROCEDURE / Unknown Collection / Unknown 12/31/2020 12:46 PM CDT 12/31/2020 1:59 PM CDT Miller Zamora MD LAB - MICROBIOLOGY ORDERABLES [facility] [address] [place] [address] [phone] documented in this encounter Visit Diagnoses Diagnosis Dysuria documented in this encounter Care Teams Impregnation Operator Relationship Specialty Start Date End Date Rema Austin MD [address] [place] [address] [place] [phone] PCP - General Family Medicine 11/24/20 02/20/21 documented as of this encounter
--- OUTSIDE RECORDS SUMMARY | 2024-09-25 11:45 | XMS_ITS | Encounter Summary ---
Author Organization [facility] Health Address [address] [facility] [place] [address] Care Team Providers Care Gray Mixing Operator Name Role Phone Rema Austin MD Primary Care Provider [phone] Encounter Details Date Type Department Care Team (Late st Contact Info) Description 12/28/2020 Orders Only [facility] [address] [place] [address] Miller Zamora MD [address] [place] [phone] Social History Tobacco Use Types Packs/Day Years [...] Name Priority Date/Time Associated Diagnosis Comments URINALYSIS W/MICROSCOPIC NO CULTURE 12/28/2020 11:28 AM CDT CULTURE URINE 12/28/2020 11:28 AM CDT documented in this encounter Results * CULTURE URINE (12/28/2020 11:28 AM CDT) Culture [facility] Comment: ??CULTURE, URINE, ROUTINE ?Micro Number: ?[id number] ??Test Status: ? Final ??Specimen Source: ?? URINE, CLEAN CATCH ??Specimen Quality: ??Adequate ??Result: ?Growth of mixed marco was isolated, suggesting ? probable contamination. No further testing will ? be performed. If clinically indicated, ? recollection using a method to minimize ? contamination, with prompt transfer to Urine ? Culture Transport Tube, is recommended. REPORT COMMENT: FASTING:NO Test Performed at: [facility] ??[id number] BAIRON GROVER MD 12/28/2020 11:2 8 AM CDT 12/28/2020 11:40 AM CDT Miller Zamora MD LAB - MICROBIOLOGY ORDERABLES [address] [address] * (ABNORMAL) URINALYSIS W/MICROSCOPIC NO CULTURE (12/28/2020 11:28 AM CDT) Color UA DARK YELLOW YELLOW [facility] Appearance CLOUDY(A) CLEAR [facility] Specific [place] UA 1.029 1.001 - 1.035 [facility] pH [...] MUCOUS THREADS [facility] Comment: Test Performed at: [facility] [address] [place], [place] ??[address] MITA SEGURA DO,MPH 12/28/2020 11:2 8 AM CDT 12/28/2020 11:40 AM CDT Miller Zamora MD LAB - URINALYSIS O RDERABLES Performing Organization Address City/State/[facility] Co de Phone Number [facility] [address] [place] [address] documented in this encounter Visit Diagnoses Not on filedocumented in this encounter Care Teams Gray Mixing Operator Relationship Specialty Start Date End Date Rema Austin MD [address] [place] [phone] PCP - General Family Medicine 11/24/20 02/20/21 documented as of this encounter
--- OUTSIDE RECORDS SUMMARY | 2024-09-25 11:45 | XMS_ITS | Encounter Summary ---
Author Organization [facility] Health Address [address] [facility] [place] [address] Care Team Providers Care It Solutions Sales Consultant Name Role Phone Rema Austin MD Primary Care Provider [phone] Encounter Details Date Type Department Care Team (Late st Contact Info) Description 11/27/2020 Orders Only [facility] [address] [place] [address] Lisa Madsen RN Nephrolithiasis ; Pre-op testing Social History Tobacco Use Types Packs/Day Years [...] as of this encounter Progress Notes * Lisa Madsen RN - 11/27/2020 2:57 PM CDT Pre-op urine culture arranged for 12/31/2020[facility] COVID screen on 01/11/2021 9AM documented in this encounter Plan of Treatment Not on file documented as of this encounter Results * SARS-COV-2 (COVID-19) PRE-SURICAL/PROCEDURE (01/12/2021 2:06 PM CDT) COVID-19 PCR Not detected Not detected 01/12/2021 9:23 PM CDT [facility] Microbiology SPECIMEN FROM NASOPHARYNGEAL STRUCTURE / Unknown Collection / Unknown 01/12/2021 2:06 PM CDT 01/12/2021 2:26 PM CDT Narrative [facility] - 01/12/2021 9:23 PM CDT This nucleic acid amplification assay performance was validated by [facility]. This test has been [...] Miller Zamora MD LAB - MICROBIOLOGY ORDERABLES [facility] [address] [place], [place] [address] [phone] documented in this encounter Visit Diagnoses Diagnosis Nephrolithiasis- Primary Calculus of kidney Pre-op testing Preoperative examination, unspecified documented in this encounter Care Teams It Solutions Sales Consultant Relationship Specialty Start Date End Date Rema Austin MD [address] [place] [address] [place] [phone] PCP - General Family Medicine 11/24/20 02/20/21 documented as of this encounter
--- OUTSIDE RECORDS SUMMARY | 2024-09-25 11:45 | XMS_ITS | Encounter Summary ---
Author Organization [facility] Health Address [address] [facility] [place] [address] Care Team Providers Care Gate Watchman Name Role Phone Rema Austin MD Primary Care Provider [phone] Encounter Details Date Type Department Care Team (Late st Contact Info) Description 12/20/2020 Orders Only [facility] [address] [place] [address] Candice Mcfadden, RN Dysuria Social History Tobacco Use Types Packs/Day Years [...] as of this encounter Visit Diagnoses Diagnosis Dysuria- Primary documented in this encounter Care Teams Gate Watchman Relationship Specialty Start Date End Date Rema Austin MD [address] [place] [address] [place] [phone] PCP - General Family Medicine 11/24/20 02/20/21 documented as of this encounter
--- OUTSIDE RECORDS SUMMARY | 2024-09-25 11:45 | XMS_ITS | Encounter Summary ---
Author Organization [facility] Health Address [address] [facility] [place] [address] Care Team Providers Care Thread Grinder Tool Name Role Phone Rema Austin MD Primary Care Provider [phone] Encounter Details Date Type Department Care Team (Late st Contact Info) Description 12/25/2020 Orders Only [facility] [address] [place] [address] Candice Mcfadden, RN Dysuria Social History Tobacco [...] documented as of this encounter Results * (ABNORMAL) URINALYSIS NO MICROSCOPIC NO CULTURE (12/31/2020 12:46 PM CDT) Color UA Yellow Straw, Yellow, Colorless 12/31/2020 1:52 PM CDT [facility] Clarity UA Clear Clear, t Cloudy 12/31/2020 1:52 PM CDT [facility] Specific [place] UA 1.016 1.005 - 1.030 12/31/2020 1:52 PM CDT [facility] pH UA 7.0 5.0 - 8.0 pH 12/31/2020 1:52 PM CDT [facility] Protein UA 1+(A) Negative mg/dL 12/31/2020 1:52 PM CDT [facility] Glucose UA Negative Negative mg/dL 12/31/2020 1:52 PM CDT [facility] Ketone UA Negative Negative mg/dL 12/31/2020 1:52 PM CDT [facility] Bilirubin UA Negative Negative mg/dL 12/31/2020 1:52 PM CDT [facility] Blood UA 2+(A) Negative 12/31/2020 1:52 PM CDT [facility] Nitrite UA Negative Negative 12/31/2020 1:52 PM CDT [facility] Leukocyte Esterase 1+(A) Negative 12/31/2020 1:52 PM CDT [facility] Urobilinogen UA Negative Negative mg/dL 12/31/2020 1:52 PM CDT [facility] Urine URINE SPECIMEN OBTAINED BY CLEAN CATCH PROCEDURE / Unknown Collection / Unknown 12/31/2020 12:46 PM CDT 12/31/2020 1:28 PM CDT Narrative [facility] - 12/31/2020 1:52 PM CDT Miller Zamora MD LAB - URINALYSIS O RDERABLES Performing Organization Address City/State/[facility] Co de Phone Number [facility] [address] [place] [address], [facility] [phone] * CULTURE URINE (12/31/2020 12:46 PM CDT) Culture Urine 10,000-50,000 CFU/mL urogenital marco CHRYSTAL 01/02/2021 7:18 AM CDT [facility] Urine URINE SPECIMEN OBTAINED BY CLEAN CATCH PROCEDURE / Unknown Collection / Unknown 12/31/2020 12:46 PM CDT 12/31/2020 1:59 PM CDT Miller Zamora MD LAB - MICROBIOLOGY ORDERABLES [facility] [address] [place], [place] [address] [phone] documented in this encounter Visit Diagnoses Diagnosis Dysuria- Primary documented in this encounter Care Teams Thread Grinder Tool Relationship Specialty Start Date End Date Rema Austin MD [address] [place] [address] [place] [phone] PCP - General Family Medicine 11/24/20 02/20/21 documented as of this encounter
--- OUTSIDE RECORDS SUMMARY | 2024-09-25 11:45 | XMS_ITS | Encounter Summary ---
Author Organization [facility] Address [address] [place] [address] Care Team Providers Care Library Circulation Clerk Name Role Phone Rema Austin MD Primary Care Provider [phone] Encounter Details Date Type Department Care Team (Latest Contact Info) Description 12/31/2020 12:00 PM CDT - 12/31/2020 11:59 PM CDT Hospital Encounter [facility] [address] [place] [phone] Miller Zamora MD [address] [facility] 2L [place] [id number] Discharge Disposition: Home or Self Care Anesthesia Record Procedure Summary Procedure Name Responsible [...] 1349 Electnc Sig 1350 An Stop Meds * Agents No agents on file. * Blood No blood administrations on file. Lines, Drains, and Airways Type Details Placement Removal Peripheral IV Date: 01/14/21; Time : 08; Orientation: Left; Placed By: CHELITA James RN; [...] by Olga Gibbs RN 01/14/21 2234 by Generic, Auto Release documented in this encounter Social [...] Sign Reading Time Taken Comments Blood Pressure 130/79 12/31/2020 12:11 PM CDT Pulse 94 12/31/2020 12:11 PM CDT Temperature 36.3 ??C (97.3 ??F) 12/31/2020 12:11 PM C DT Respiratory Rate 16 12/31/2020 12:11 PM CDT Oxygen Saturation 100% 12/31/2020 12:11 PM CDT Inhaled Oxygen Concentration - - Weight 90.5 kg (199 lb 8 oz) 12/31/2020 12:11 PM CDT Height 162.6 cm (5' 4 ) 12/31/2020 12:11 PM CDT Body Mass Index 34.24 12/31/2020 12:11 PM CDT documented in this encounter Functional [...] for Pain 30 tablet 03/15/2019 albuterol HFA (PROVENTIL;VENTOLIN;PA OAIR) 108 (90 BASE) MCG/ACT inhaler Inhale [...] Procedure Name Priority Date/Time Associated Diagnosis Comments CBC W/O DIFFERENTIAL Routine 12/31/2020 12:46 PM CDT Pre-op evaluation BASIC METABOLIC PANEL (CALCIUM TOTAL) Routine 12/31/2020 12:46 PM CDT Pre-op evaluation documented in this encounter Results * (ABNORMAL) CBC W/O DIFFERENTIAL (12/31/2020 12:46 PM CDT) WBC 7.3 3.5 - 10.5 10? 3 /uL 12/31/2020 1:45 PM [facility] RBC 4.37 3.90 - 5.00 10? 6 /uL 12/31/2020 1:45 PM [facility] Hemoglobin 11.4(L) 12.0 - 15.5 g/dL 12/31/2020 1:45 PM [facility] Hematocrit 35.0 35.0 - 45.0 % 12/31/2020 1:45 PM [facility] MCV 80.1(L) 81.0 - 97.0 fL 12/31/2020 1:45 PM [facility] MCH 26.1(L) 28.0 - 34.0 pg 12/31/2020 1:45 PM [facility] MCHC 32.6 32.0 - 36.0 g/dL 12/31/2020 1:45 PM [facility] Platelet Count 327 150 - 400 10? 3 /uL 12/31/2020 1:45 PM [facility] RDW-SD 47.9 36.0 - 50.0 fL 12/31/2020 1:45 PM [facility] RDW-CV 16.6(H) 11.2 - 14.8 % 12/31/2020 1:45 PM [facility] MPV 9.7 9.3 - 12.8 fL 12/31/2020 1:45 PM [facility] nRBC Absolute 0.00 0 10? 3 /uL 12/31/2020 1:45 PM [facility] nRBC Auto 0.0 0 /100 WBC 12/31/2020 1:45 PM [facility] Blood BLOOD SPECIMEN / Unknown Lab Venipuncture / Unknown 12/31/2020 12:46 PM CDT 12/31/2020 1:28 PM CDT Parish Taylor [employer] [facility] - HEMATOL OGY ORDERABLES [facility] [address] [place] [address], [facility] [phone] * BASIC METABOLIC PANEL (CALCIUM TOTAL) (12/31/2020 12:46 PM CDT) BUN 8 7 - 26 mg/dL 12/31/2020 2:05 PM [facility] Creatinine 0.7 0.6 - 1.2 mg/dL 12/31/2020 2:05 PM [facility] Sodium 138 136 - 145 mmol/L 12/31/2020 2:05 PM [facility] Potassium 3.8 3.5 - 4.5 mmol/L 12/31/2020 2:05 PM [facility] Chloride 106 98 - 107 mmol/L 12/31/2020 2:05 PM [facility] CO2 24 22 - 29 mmol/L 12/31/2020 2:05 PM [facility] Glucose 78 70 - 115 mg/dL 12/31/2020 2:05 PM [facility] Calcium 8.5 8.4 - 10.2 mg/dL 12/31/2020 2:05 PM [facility] Anion Gap 12 8 - 18 12/31/2020 2:05 PM [facility] BUN/Creatinine Ratio 11 7 - 23 12/31/2020 2:05 PM [facility] Osmolality Calculated 283 270 - 300 mOsm/kg 12/31/2020 2:05 PM [facility] eGFR >60 >60 mL/min/1.7 3 m2 12/31/2020 2:05 PM [facility] Blood BLOOD SPECIMEN / Unknown Lab Venipuncture / Unknown 12/31/2020 12:46 PM CDT 12/31/2020 1:28 PM CDT Parish Taylor [employer] LAB - SOCIAL MEDIA INTERN RY ORDERABLES Performing Organization Address City/State/[facility] Co de Phone Number [address] [phone] [phone] documented in this encounter Visit Diagnoses Diagnosis Pre-op evaluation- Primary Preoperative examination, unspecified documented in this encounter Care Teams Library Circulation Clerk Relationship Specialty Start Date End Date Rema Austin MD [address] [place] [address] [place] [phone] PCP - General Family Medicine 11/24/20 02/20/21 documented as of this encounter
--- OUTSIDE RECORDS SUMMARY | 2024-09-25 11:46 | XMS_ITS | Encounter Summary ---
Author Organization [facility] Address [address] [address] Care Team Providers Care Human Resources Team Member Name Role Phone Rema Austin MD Primary Care Provider [phone] Reason for Visit * Auth/Cert Specialty Diagnoses / Procedures Referred By Norm t Referred To Contact Referral ID Status Reason Start Date Expiration Date Visits Re quested Visits Authorized [id number] 1 1 Encounter Details Date Type Department Care Team (Late st Contact Info) Description 11/25/2020 3:14 PM CDT Anesthesia Event [facility] [address] [place] [address] Ariel Talavera MD [address] [facility] DEPT [place] [address] Nohemi Crowe MD [address] [facility] DEPARTMENT [place] [address] Anesthesia Record Procedure Summary Procedure Name Responsible Anesthesiologist Anesthesia Start Time Anesthesia Stop Time CYSTOSCOPY WITH RIGHT RETROGRADE PYELOGRAM; STENT PLACEMENT (Right: Vagina ) Ariel Talavera MD 11/25/20 1514 11/25/20 1606 Events Date Time Event Comment 11/25/2020 1457 1514 Pt In Room 1514 An Start 1514 An Start Data 1517 Anes Timeout 1518 PT Reassessment 1519 Induction 1521 An LMA 1527 Anes Ready 1529 Timeout Anesthesia part icipated in timeout at the time documented in the record by nursing. 1531 Proc Start 1555 Proc Stop 1556 An Emergence 1557 An LMA Removed 1601 an stop data 1601 Pt out of Room 1602 ANPTO2 1606 An Stop Meds Name Total midazolam 2 mg/2mL injection 2 mg fentaNYL 100 mcg/2ml injection 100 mcg propofol 200mg/20mL injection 150 mg lidocaine PF 2% 100 mg phenylephrine 40 mcg/ml 10 ml syringe 10 0 mcg ondansetron 4mg/2mL injection 4 mg dexamethasone 10 mg/ml PF injection 4 mg LR (Lactated ringers) 250 mL * Agents Name Insp. N2O Exp. Sevoflurane Exp. Desflurane Exp. N2O O2 Air Insp. Sevoflurane Insp. Desflurane * Blood No blood administrations on file. Lines, Drains, and Airways Type Details Placement Removal Peripheral IV Orientation: Left 11/24/20 0510 by 11/26 0030 by Caroline Regalado RN LMA 11/25/20; 1521 (brad romo via procedure documentation); Marina Sidhu DO; 100% O2; Standard IV; easy mask; LMA; 4.0; CO2 Monitor; 11/25/20; 1558 11/25/20 1521 by Marina Sidhu DO 11/25/20 1558 by Marina Sidhu DO documented in this encounter Social History Tobacco [...] as of this encounter Progress Notes * Ariel Talavera MD - 11/26/2020 12:51 AM CDT ANESTHESIA POSTOP EVALUATION NOTE Procedure: CYSTOSCOPY WITH RIGHT RETROGRADE PYELOGRAM; STENT PLACEMENT (Right Vagina ) DaTreshasha Rivers is a 30 year old female Patient Vitals for the past 6 hrs: BP Temp Pulse Resp SpO2 Pain Rating Score #1 Pain Scale/Observation 11/25/20 1920 119/71 99.5 ??F (37.5 ??C) 92 16 96 % -- -- 11/25/202001 -- -- -- -- -- 9 N 11/25/202111 -- -- -- -- -- 10 -- 11/25/202156 -- -- -- -- -- 8 -- 11/26/20 0032 -- -- -- -- -- 6 N 11/26/20 0047 104/62 98.4 ??F (36.9 ??C) 68 20 100 % -- -- Anesthesia Type: general LMA Pre-op Diagnosis Codes: * Hematuria, unspecified type [R31.9] Mental Status: awake and alert Neuro Status: No numbness, tingling or visual disturbances Respiratory Function: natural Cardiac Function: stable Postop Pain: adequate Postop Hydration: adequate Postop Nausea: none Assessment: no apparent anesthetic complications, patient tolerated procedure well and no evidence of recall Patient Disposition: Release from Anesthesia Care COMPLICATIONS: No complications documented. * Ariel Talavera MD - 11/25/2020 2:57 PM CDT ANESTHESIA PREOPERATIVE EVALUATION NOTE Procedure: CYSTOSCOPY WITH RIGHT RETROGRADE PYELOGRAM; STENT PLACEMENT (Right ) NPO status: Since Midnight (11/25/2020 2:26 PM) Vitals: Patient Vitals for the past 6 hrs: BP Temp Pulse Resp SpO2 Pain Rating Score #1 11/25/20 1423 121/78 (!) 48.9 ??F (9.4 ??C) 78 14 99 % 0 11/25/20 1308 115/65 99 ??F (37.2 ??C) 82 18 95 % -- 11/25/20 0915 -- -- -- -- -- 6 ANESTHESIA PRE-EVALUATION NOTE History of Present Illness: 30F hx of horseshoe kidney presented with abdominal pain, CT with nephrolithiasis. Plan cystoscopy for stent placement. She reports a hx asthma. Feels like she is breathing well, does not use an inhaler. Physical Exam: Orientation X3 Airway/Mallampati Score: II Mouth Opening Distance: 3 fingerwidths Teeth: normal Heart: normal - S1 S2 Lungs: clear to ausculation bilaterally Abdomen Exam: normal Review of Systems: History of anesthetic complications: No Malignant Hyperthermia: No GERD: No Poor Exercise Tolerance: No Recent Chest Pain: No Shortness of Breath: No AICD/Pacemaker: No Renal Disease: Yes (horseshoe kidney, normal renal function) Diagnostic Tests: Lab(s) reviewed: Yes. ANESTHESIA PLAN ASA Score: 2 E NPO Status: No solids since midnight and No liquids within 2 hours Anesthesia Plan: general ETT and general LMA Planned Induction: intravenous Planned Postop Destination: PACU Anesthetic plan was discussed with: patient Anesthetic Plan discussion was: Consented Use of blood products were discussed with: patient Use of blood product discussion was: Consented The patient's procedural Anesthetic Plan was discussed with the attending and resident. Overall additional findings/comments: Discussed risks of GETA including but not limited to dental injuries, problems with the heart, breathing, bleeding, adverse medication reactions that can lead toheart attack, stroke, , etc. ??Patient expressed understanding and wishes to proceed. I have reviewed the patient's chart and have interviewed the patient. I have examined the patient and have reviewed the plan with the patient. I agree with the documentation and have discussed the anesthesia plan and the patient agrees. ?? Yes - I attest to documenting, updating or reviewing a patient's current medications using all immediate resources available on the date of the encounter. This list must include ALL known prescriptions, [id number], herbals, and vitamin/mineral/dietary (nutritional) supplements AND must contain the medications' name, dosages, frequency and route of administration. . BMI, Height, Weight Tobacco History Estimated body mass index is 33.13 kg/m?? as calculated from the following: Height as of this encounter: 1.626 m (5' 4 ). Weight as of this encounter: 87.5 kg (193 lb). Social History Tobacco Use Smoking Status Current Every Day Smoker ??? Packs/day: 0.50 ??? Types: Cigarettes ??? Last attempt to quit: 02/13/2019 ??? Years since quittin.7 Smokeless Tobacco Never Used Alcohol History Drug History Social History Substance and Sexual Activity Alcohol Use Yes ??? Alcohol/week: 0.0 standard drinks Comment: occ Social History Substance and Sexual Activity Drug Use Not Currently ??? Types: Marijuana Outpatient Medications: Inpatient Medications: Outpatient Medications Marked as Taking for the 11/24/20 encounter (Hospital Encounter) Medication Sig Last Dose ??? ciprofloxacin Take 1 (one) tablet by mouth 2 times daily for 5 days ??? docusate sodium Take 1 (one) capsule by mouth once daily Please take until you stop taking painmedication ??? ketorolac Take 1 (one) tablet by mouth every 8 hours as needed for Pain ??? oxyCODONE (immediate release) Take 1 (one) tablet by mouth every 4 hours as needed for Pain ??? tamsulosin Take 1 (one) capsule by mouth once daily At the same time every day after a meal. Current Facility-Administered Medications Medication Dose Last Admin ??? 0.9% NaCl 3 mL 3 mL at 11/24/204 And ??? 0.9% NaCl 1-10 mL 10 mL at 11/24/202 ??? 0.9% NaCl with potassium chloride 20 mEq Rate Verify at 11/25/20 0611 ??? acetaminophen 975 mg 975 mg at 11/24/20 222 ??? calcium carbonate (500mg Ca /5 mL) 500 mg ??? ciprofloxacin 400 mg Stopped at 11/25/20 1156 ??? diphenhydrAMINE 25 mg 25 mg at 11/25/20 0101 ??? docusate sodium 100 mg 100 mg at 11/25/20 0842 ??? HYDROmorphone 0.2 mg 0.2 mg at 11/25/20 1154 ??? ketorolac 15 mg 15 mg at 11/24/20 1953 ??? ondansetron (disintegrating) 4 mg ??? ondansetron 4 mg ??? oxybutynin 5 mg ??? oxyCODONE (immediate release) 10 mg 10 mg at 11/25/20 0842 Or ??? oxyCODONE (immediate release) 5 mg ??? phenol 2 spray ??? prochlorperazine 5 mg ??? prochlorperazine 5 mg ??? tamsulosin 0.4 mg 0.4 mg at 11/25/20 0842 Allergies: Allergies Allergen Reactions ??? Augmentin Rash Hives ??? Vicodin [Hydrocodone-Acetaminophen] Urticaria Relevant Problems No relevant active problems Problem List: Patient Active Problem List Diagnosis [...] Past Surgical History: Procedure Laterality Date ??? Lithotripsy ??? NEGATIVE SURGICAL HISTORY Lab Results: Recent Labs Component Name 11/24/20 0609 HCGURINE Negative Recent Labs Component Name 11/25/20 0404 WBC 5.0 RBC 3.97 HCT 32.1* HGB 10.3* PLTCOUNT 291 MCV 80.9* MCH 25.9* MCHC 32.1 MPV 9.3 Recent Labs Component Name 11/24/20 0609 BLOODU Negative WBCU 21-50* NITRITE Negative PROTEINU 1+* Recent Labs Component Name 11/25/20 0404 POTASSIUM 3.8 CALCIUM 8.2* CO2 27 GLUCOSE 102 BUN 13 CREATININE 0.7 No results found for requested labs within last 120 days. Recent Labs Result Component Current Result Alkaline Phosphatase 44 (11/24/2020) ALT 5 (11/24/2020) Anion Gap 9 (11/25/2020) AST 10 (11/24/2020) eGFR >60 (11/25/2020) documented in this encounter Procedure Notes * Marina Sidhu DO - 11/25/2020 3:32 PM CDTAssociated Order(s): LMA Placement LMA Placement Procedure/LDA Note: Patient Location: OR. LMA Insertion Date/Time: 11/25/2020 3:21 PM Procedure: LMA. Pretreatment: 100% O2 Induction: standard IV Patient position: supine. Mask Ventilation: easy Type: LMA Size: 4 Number of Attempts: 1. Placement verified by: CO2 monitor Dentition unchanged? Yes Procedure Start Time: 11/25/2020 3:21 PM. Staff Section Anesthesia Provider: Marina Sidhu DO, Performed the procedure documented in this encounter Miscellaneous Notes * Anesthesia Transfer of Care - Marina Sidhu DO - 11/25/2020 4:06 PM CDT ANESTHESIA TRANSFER OF CARE NOTE Today's Date: 11/25/2020 Date of : 1990 Patient: Jumana Rivers Procedure(s): CYSTOSCOPY WITH RIGHT RETROGRADE PYELOGRAM; STENT PLACEMENT Surgeon(s): Primary: Miller Zamora MD Resident - Assisting: Shyam Rodriguez MD Preop Diagnosis: Pre-op Diagnois: * Hematuria, unspecified type [R31.9] Pre-op Meds (From admission, onward) Start Stop Status Route Frequency Ordered 11/24/20 0613 0.9% NaCl injection 1-10 mL -- Dispensed IK PRN 11/24/20 0614 11/24/20 0645 0.9% NaCl injection 3 mL -- Dispensed IK EVERY 8 HOURS 11/24/20 0614 11/24/20 2000 0.9% NaCl with potassium chloride 20 mEq infusion -- Dispensed IV CONTINUOUS 11/24/20 1920 11/24/20 1400 acetaminophen (TYLENOL) tablet 975 mg 11/24 1359 Dispensed PO EVERY 8 HOURS 11/24/20 1021 11/24/20 1126 calcium carbonate (500mg Ca /5 mL) suspension 11/24 1019 Verified PO EVERY 4 HOURS PRN 11/24/20 1127 11/24/20 1100 ciprofloxacin (CIPRO) 400 mg in 200 mL IVPB -- Dispensed IV EVERY 12 HOURS 11/24/20 1023 11/25/20 1514 Dexamethasone Sod Phosphate PF injection -- Sent PRN 11/25/20 1528 11/24/20 1020 diphenhydrAMINE (BENADRYL) capsule 25 mg -- Dispensed PO EVERY 4 HOURS PRN 11/24/20 1021 11/24/20 1030 docusate sodium (COLACE) capsule 100 mg 11/24 0859 Dispensed PO 2 TIMES DAILY 11/24/20 1021 11/25/20 1529 fentaNYL (PF) (SUBLIMAZE) injection -- Sent IV PRN 11/25/20 1529 11/24/20 1844 HYDROmorphone (DILAUDID) injection 0.2 mg -- Dispensed IV EVERY 3 HOURS PRN 11/24/20 1844 11/24/20 1020 ketorolac (TORADOL) injection 15 mg 11/29 1019 Dispensed IV EVERY 6 HOURS PRN 11/24/20 1021 11/25/20 1514 lactated ringers infusion -- Sent IV CONTINUOUS PRN 11/25/20 1527 11/25/20 1519 lidocaine hcl (PF) (XYLOCAINE MPF) 2 % injection -- Sent INFILTRATION PRN 11/25/20 1527 11/25/20 1512 midazolam (VERSED) injection -- Sent IV PRN 11/25/20 1527 11/24/20 1020 ondansetron (disintegrating) (ZOFRAN ODT) tablet 4 mg 11/24 1019 Verified PO EVERY 6 HOURS PRN 11/24/20 1021 11/24/20 1020 ondansetron (ZOFRAN) injection 4 mg -- Verified IV EVERY 6 HOURS PRN 11/24/20 1021 11/25/20 1530 Ondansetron HCl (ZOFRAN) injection -- Sent IV PRN 11/25/20 1530 11/24/20 1020 oxybutynin (DITROPAN) tablet 5 mg -- Dispensed PO 3 TIMES DAILY PRN 11/24/20 1021 11/24/20 1020 oxyCODONE (immediate release) (ROXICODONE) tablet 10 mg -- Dispensed PO EVERY 6 HOURS PRN 11/24/20 1021 11/24/20 1020 oxyCODONE (immediate release) (ROXICODONE) tablet 5 mg -- Verified PO EVERY 6 HOURS PRN 11/24/20 1021 11/24/20 1020 phenol (CHLORASEPTIC) 1.4 % liquid 2 spray 11/24 1019 Dispensed PO EVERY 1 HOUR PRN 11/24/20 1021 11/25/20 1550 phenylephrine 40 mcg/ml custom syringe -- Sent IV PRN 11/25/20 1550 11/24/202014 potassium chloride ER (KLOR-CON M) tablet 40 mEq 11/24 2026 Completed PO ONCE 11/24/20 1956 11/24/20 1020 prochlorperazine (COMPAZINE) injection 5 mg 11/24 1019 Verified IV EVERY 6 HOURS PRN 11/24/20 1021 11/24/20 1020 prochlorperazine (COMPAZINE) injection 5 mg 11/24 1019 Verified IM EVERY 6 HOURS PRN 11/24/20 1021 11/25/20 1519 propofol (DIPRIVAN) injection -- Sent IV PRN 11/25/20 1527 11/24/20 1030 tamsulosin (FLOMAX) capsule 0.4 mg 11/24 0859 Dispensed PO DAILY 11/24/20 1021 Post-op Diagnosis: * Hematuria, unspecified type [R31.9] . Allergies Allergen Reactions ??? Augmentin Rash Hives ??? Vicodin [Hydrocodone-Acetaminophen] Urticaria Vitals: Patient Vitals for the past 3 hrs: BP Temp Pulse Resp SpO2 Pain Rating Score #1 11/25/20 1423 121/78 (!) 48.9 ??F (9.4 ??C) 78 14 99 % 0 Lines, Drains, and Airways Type Details Placement Removal Peripheral IV Orientation: Left; Location: Antecubital; Gauge: 20 Gauge 11/24/20 0510 LMA 11/25/20; 1521 (created via procedure documentation); Marina Sidhu DO; 100% O2; Standard IV; easy mask; LMA; 4.0; CO2 Monitor; 11/25/20; 1558 11/25/20 1521 by Marina Sidhu DO 11/25/20 1558 by Nahum, Marina, DO Intraprocedure I/O Totals None Patient Transfer Location: PACU Transport Airway: spontaneous respirations and supplemental O2 Complications: None Handoff Given? Yes Checklist or [...] understanding of report from the receiving PACUteam. Marina Sidhu DO documented in this encounter Plan of Treatment Not on file documented as of this encounter Procedures Procedure Name Priority Date/Time Associated Diagnosis Comments LARYNGEAL MASK AIRWAY Routine 11/25/2020 3:32 PM CDT documented in this encounter Results * LARYNGEAL MASK AIRWAY (11/25/2020 3:32 PM [...] procedure Ariel Talavera MD GENERAL ANESTHESIA ORDERABLES documented in this encounter Visit Diagnoses Not on filedocumented in this encounter Administered Medications Inactive Administered Medications - up to 3 most recent administrations Medication Order MAR Action Action Date Dose Rate Site Dexamethasone Sod Phosphate PF injection PRN, Starting on 11/25/20 at 1514, Until 11/25/20 at 1612, Anesthesia Intra-op $ Given 11/25/2020 3:30 PM CDT 4 mg fentaNYL (PF) (SUBLIMAZE) injection Intravenous, PRN, Starting on 11/25/20 at 1529, Until 11/25/20 at 1612, Anesthesia Intra-op $ Given 11/25/2020 4:03 PM CDT 50 mcg $ Given 11/25/2020 3:29 PM CDT 50 mcg lactated ringers infusion Intravenous, CONTINUOUS PRN, Starting on 11/25/20 at 1514, Until 11/25/20 at 1612, Anesthesia Intra-op $ New Bag/Syringe 11/25/2020 3:14 PM CDT lidocaine hcl (PF) (XYLOCAINE MPF) 2 % injection Infiltration, PRN, Starting on 11/25/20 at 1519, Until 11/25/20 at 1612, Anesthesia Intra-op $ Given 11/25/2020 3:19 PM CDT 100 mg midazolam (VERSED) injection Intravenous, PRN, Starting on 11/25/20 at 1512, Until 11/25/20 at 1612, Anesthesia Intra-op $ Given 11/25/2020 3:12 PM CDT 2 mg Ondansetron HCl (ZOFRAN) injection Intravenous, PRN, Starting on 11/25/20 at 1530, Until 11/25/20 at 1612, Anesthesia Intra-op $ Given 11/25/2020 3:30 PM CDT 4 mg phenylephrine 40 mcg/ml custom syringe Intravenous, PRN, Starting on 11/25/20 at 1550, Until 11/25/20 at 1612, Anesthesia Intra-op $ Given 11/25/2020 3:50 PM CDT 100 mcg propofol (DIPRIVAN) injection Intravenous, PRN, Starting on 11/25/20 at 1519, Until 11/25/20 at 1612, Anesthesia Intra-op $ Given 11/25/2020 3:19 PM CDT 150 mg documented in this encounter Care Teams Human Resources Team Member Relationship Specialty Start Date End Date Rema Austin MD [address] [place] [address] [place] [id number] PCP - General Family Medicine 11/24/20 02/20/21 documented as of this encounter
--- OUTSIDE RECORDS SUMMARY | 2024-09-25 11:46 | XMS_ITS | Encounter Summary ---
Author Organization [facility] Address [address] [place] [address] Care Team Providers Care Grant Officer Name Role Phone Rema Austin MD Primary Care Provider [phone] Reason for Visit * Reason Comments Referral Pt BIBEMS from OSH f or urology referral. OSH confirms active UTI and kidney stones. Patient reports 8/10 flank pain and abdominal pain. VSS. * Auth/Cert Specialty Diagnoses / Procedures Referred By Norm t Referred To Contact Referral ID Status Reason Start Date Expiration Date Visits Re quested Visits Authorized [id number] 1 1 Encounter Details Date Type Department Care Team (Late st Contact Info) Description 11/24/2020 4:58 AM CDT - 11/26/2020 11:[address] [facility] Early Admission Unit [address] [place] [address] Yair Medellin MD [address] [facility] DIV [place] [address] Miller Snowden MD [address] DIV [place] [address] Emergency Medicine Discharge Disposition: Home or Self Care Social [...] Sign Reading Time Taken Comments Blood Pressure 102/69 11/26/2020 9:44 AM CDT Pulse 64 11/26/2020 9:44 AM CDT Temperature 37.3 ??C (99.2 ??F) 11/26/2020 9:44 AM CD T Respiratory Rate 18 11/26/2020 9:44 AM CDT Oxygen Saturation 97% 11/26/2020 9:44 AM CDT Inhaled Oxygen Concentration 98% 11/25/2020 4 :20 PM CDT Weight 87.5 kg (193 lb) 11/24/2020 5:07 AM CDT Height 162.6 cm (5' 4 ) 11/24/2020 5:07 AM CDT Body Mass Index 33.13 11/24/2020 5:07 AM CDT documented in this encounter Functional [...] 04/03/2014 documented as of this encounter Discharge Summaries * Isabelle Knottlin, GENERAL CAR SUPERVISOR YARD-STABILIZER OPERATOR - 11/26/2020 8:23 AM CDT Physician Discharge Summary [facility] Division of Urologic Surgery Inpatient Discharge Summary Miller Snowden MD Patient ID: Jumana Jolley [id number] 30 year old 1990 Admit date: 11/24/2020 Discharge date and time: No discharge date for patient encounter. Admitting Physician: Miller Snowden MD Discharge Physician: Dr nSowden Present on Admission: None Discharge Diagnoses: Kidney stone Admission Condition: fair Discharged Condition: good Indication for Admission: This is a 30-year-old female with a history of a horseshoe kidney, who presented to the ER with 1-month history of increasing right-sided pelvic pain. CT scan showed impaction of distal left ureteral stones in the right side. Several stones measuring up to 7 mm were noted.She had a UA that was concerning for possible UTI. She was admitted for pain control, antibiotics. She was taken for a stenting procedure on 11/25/20. The patient surgery was completed without any complications. Postoperatively she tolerated her diet, pain was controlled, and labs remained stable. She was deemed medically stable for discharge. Instructions for activity restrictions, driving restrictions, diet, showering, reasons to go to ER and follow up care were discussed. Instructed to resume home medications. Rx for an antibiotic, painregimen, and bowel regimen were provided. As the patient had met all of her discharge criteria, shewas discharged home. Family to transport in [place]. A surgery order for Cystoscopy, RIGHT retrograde pyelogram, ureteroscopy, laser lithotripsy, stone basket extraction, possible stent exchange was placed. The outpatient program management analyst should reachout to the patient with a surgery date. Consults: none Significant Diagnostic Studies: Labs: Recent Labs Component Name 11/26/20 0450 11/25/20 0404 11/24/20 0625 NA 140 140 139 CL 105 108* 106 BUN 14 13 13 CREATININE 0.7 0.7 0.6 CALCIUM 9.3 8.2* 8.4 WBC 7.6 5.0 7.5 HGB 10.6* 10.3* 10.7* HCT 32.6* 32.1* 32.9* No results for input(s): CBC, PSA in the last 85399 hours. Invalid input(s): UA Updated imaging: OSH CT completed. Discharge Exam: General: NAD, well appearing Head/Neck: Normocephalic ENT: Opens eyes CV: Regular rate, regular rhythm Lungs: No increased respiratory effort Abdomen: Soft, non-distended, mildly tender in RLQ Genitourinary: No CVA tenderness Extremities: No edema Neuro: Awake, alert Disposition: home Patient Instructions: Follow-up Information Miller Snowden MD . Specialty: Urology Why: We will call you with your scheduled surgery date to remove your kidney stone. Contact information: [address] [facility] OF UROLOGIC SURGERY [facility] [address] Discharge Instructions We will call you this week with a surgery date for a procedure to treat your kidney stone You have a stent in your ureter [...] due to your stent being in place. If you have any questions about your care or the recovery process, please contact [facility] Urology at [phone] during regular business hours. On weekends or in the evening, please contact [facility] Hospitalat [phone] and ask for whoever is environmental consultant for Urology. Ureteral Stent Placement WHAT YOU NEED TO [...] refuse treatment. The above information is an dietetic aide only. It is not intended as medical advice for individual conditions or treatments. Talk to your doctor, nurse or pharmacist before following any medical regimen to see if it is safe and effective for you. ?? Copyright [employer] 2019 Information is for End User's use only and may not be sold, redistributed or otherwise used for commercial purposes. All illustrations and images included in CareNotes?? are the copyrighted property of [employer]. or [employer] Ureteral Stent Placement WHAT YOU NEED TO KNOW: Ureteral stent placement is a procedure to open a blocked or narrow ureter. The ureter is the tube that carries urine from your kidney into your bladder. A stent is a thin hollow plastic tube used tohold your ureter open and allow urine to flow. The stent may stay in for several weeks. Long-term stents will stay in longer and need to be replaced within a certain period of time. DISCHARGE INSTRUCTIONS: Seek care immediately if: ?? You urinate very little or not at all. ?? You have severe pain in your abdomen, even after you take medicine. ?? You have heavy bleeding from your urethra. ?? You see large blood clots in your urine, or your urine is bright red. Contact your healthcare provider or urologist if: ?? You have a fever or chills. ?? You feel like you need to urinate very often. ?? Your symptoms get worse, or you develop new symptoms. ?? You have questions or concerns about your condition or care. Medicines: You may need any of the following: ?? Acetaminophen decreases pain and fever. It is available without a doctor's order. Ask how much to take and how often to take it. Follow directions. Read the labels of all other medicines you are using to see if they also contain acetaminophen, or ask your doctor or pharmacist. Acetaminophen can cause liver damage if not taken correctly. Do not use more than 4 grams (4,000 milligrams) total of acetaminophen in one day. ?? Prescription pain medicine may be given. Ask your healthcare provider how to take this medicine safely. Some prescription pain medicines contain acetaminophen. Do not take other medicines that contain acetaminophen without talking to your healthcare provider. Too much acetaminophen may cause liver damage. Prescription pain medicine may cause constipation. Ask your healthcare provider how to prevent or treat constipation. ?? Antibiotics help prevent or treat bacterial infections. Your healthcare provider may prescribe these for you while you have a ureteral stent. ?? Take your medicine as directed. Contact [...] with you in case of an emergency. Self-care: ?? Drink liquids as directed. Liquids will help flush your urinary tract and prevent infection. Askyour healthcare provider how much liquid to drink each day and which liquids are best for you. ?? Ask when you can return to daily activities. You may be able to return to normal activities the day after your stent placement. Follow up with your urologist as directed: You will need regular follow-up visits with your urologist as long as you have a stent. He or she will check to make sure the stent is working properly. He or she will remove your temporary stent in several weeks. Your provider may do urine cultures to check for infection. Write down your questions so you remember to ask them during your visits. ?? Copyright [employer] 2019 Information is for End User's use only and may not be sold, redistributed or otherwise used for commercial purposes. All illustrations and images included in CareNotes?? are the copyrighted property of [employer] [place]. or [employer] The above information is an dietetic aide only. It is not intended as medical advice for individual conditions or treatments. Talk to your doctor, nurse or pharmacist before following any medical regimen to see if it is safe and effective for you. Signed: ADELINA Rea 11/26/2020 8:23 AM documented in this encounter Discharge Instructions * Discharge Instructions* Shyam Rodriguez MD - 11/25/2020 2:41 PM CDT We will call you this week with a surgery date for a procedure to treat your kidney stone You have a stent in your ureter [...] due to your stent being in place. If you have any questions about your care or the recovery process, please contact [facility] Urology at [phone] during regular business hours. On weekends or in the evening, please contact [facility] Hospitalat [phone] and ask for whoever is environmental consultant for Urology. Ureteral Stent Placement WHAT YOU NEED TO [...] refuse treatment. The above information is an dietetic aide only. It is not intended as medical advice for individual conditions or treatments. Talk to your doctor, nurse or pharmacist before following any medical regimen to see if it is safe and effective for you. ?? Copyright [employer] 2019 Information is for End User's use only and may not be sold, redistributed or otherwise used for commercial purposes. All illustrations and images included in CareNotes?? are the copyrighted property of [employer]. or [employer] Ureteral Stent Placement WHAT YOU NEED TO KNOW: Ureteral stent placement is a procedure to open a blocked or narrow ureter. The ureter is the tube that carries urine from your kidney into your bladder. A stent is a thin hollow plastic tube used tohold your ureter open and allow urine to flow. The stent may stay in for several weeks. Long-term stents will stay in longer and need to be replaced within a certain period of time. DISCHARGE INSTRUCTIONS: Seek care immediately if: ?? You urinate very little or not at all. ?? You have severe pain in your abdomen, even after you take medicine. ?? You have heavy bleeding from your urethra. ?? You see large blood clots in your urine, or your urine is bright red. Contact your healthcare provider or urologist if: ?? You have a fever or chills. ?? You feel like you need to urinate very often. ?? Your symptoms get worse, or you develop new symptoms. ?? You have questions or concerns about your condition or care. Medicines: You may need any of the following: ?? Acetaminophen decreases pain and fever. It is available without a doctor's order. Ask how much to take and how often to take it. Follow directions. Read the labels of all other medicines you are using to see if they also contain acetaminophen, or ask your doctor or pharmacist. Acetaminophen can cause liver damage if not taken correctly. Do not use more than 4 grams (4,000 milligrams) total of acetaminophen in one day. ?? Prescription pain medicine may be given. Ask your healthcare provider how to take this medicine safely. Some prescription pain medicines contain acetaminophen. Do not take other medicines that contain acetaminophen without talking to your healthcare provider. Too much acetaminophen may cause liver damage. Prescription pain medicine may cause constipation. Ask your healthcare provider how to prevent or treat constipation. ?? Antibiotics help prevent or treat bacterial infections. Your healthcare provider may prescribe these for you while you have a ureteral stent. ?? Take your medicine as directed. Contact [...] with you in case of an emergency. Self-care: ?? Drink liquids as directed. Liquids will help flush your urinary tract and prevent infection. Askyour healthcare provider how much liquid to drink each day and which liquids are best for you. ?? Ask when you can return to daily activities. You may be able to return to normal activities the day after your stent placement. Follow up with your urologist as directed: You will need regular follow-up visits with your urologist as long as you have a stent. He or she will check to make sure the stent is working properly. He or she will remove your temporary stent in several weeks. Your provider may do urine cultures to check for infection. Write down your questions so you remember to ask them during your visits. ?? Copyright [employer] 2019 Information is for End User's use only and may not be sold, redistributed or otherwise used for commercial purposes. All illustrations and images included in CareNotes?? are the copyrighted property of [employer]. or [employer] The above information is an dietetic aide only. It is not intended as [...] for Pain 30 tablet 03/15/2019 albuterol HFA (PROVENTIL;VENTOLIN;P ROAIR) 108 (90 BASE) MCG/ACT inhaler Inhale 2 Puffs by mouth every 6 hours as needed Reported on 10/23/2016 02/21/2021 ciprofloxacin (CIPRO) 500 MG tablet Take 1 (one) tablet by mouth 2 times daily for 5 days 11 tablet 11/25/2020 11/30/2020 docusate sodium (COLACE) 100 MG capsule Take 1 (one) capsule by mouth once daily Please take until you stop taking pain medication 30 capsule 1 11/25/2020 12/31/2020 ketorolac (TORADOL) 10 MG tablet Take 1 (one) tablet by mouth every 8 hours as needed for Pain 10 tablet 11/25/2020 12/31/2020 oxyCODONE, immediate release, (ROXICODONE) 5 MG tablet Take 1 (one) tablet by mouth every 4 hours as needed for Pain 20 tablet 11/25/2020 12/31/2020 pantoprazole EC (PROTONIX) 40 MG tablet Take 1 tablet by mouth once daily 30 tablet 02/02/2019 12/31/2020 sucralfate (CARAFATE) 1 GM tablet Take 1 tablet by mouth 4 times daily - before meals & nightly 30 tablet 02/02/2019 12/31/2020 tamsulosin (FLOMAX) 0.4 MG capsule Take 1 (one) capsule by mouth once daily At the same time every day after a meal. 30 capsule 1 11/25/2020 01/14/2021 documented as of this encounter Progress Notes * Jacklyn Sam RN - 11/26/2020 11:40 AM CDT Case Management Progress Note Anticipated level of care at discharge: Home DaTreion Tita [id number] 30 year old 1990 ?? Admit date: 11/24/2020 Discharge Disposition : Home Basic Needs Assessment (BNA) Score: 5 Transportation at Discharge: Pt arranged Pt discharged prior to BNA. No needs identified Jacklyn Sam RN Case Management [phone] * Olga Knott APRN-CNP - 11/26/2020 9:26 AM CDT patient complaining of right flank pain. oxi prn given. tylenol scheduled. Ok to given ditropan early ADELINA Rea Urology * Olga Knott APRN-CNP - 11/26/2020 8:13 AM CDT Urologic Surgery Progress Note Admit Date: 11/24/2020 NAME: Jumana Jolley AGE: [age] year old SEX: female HPI: Jumana Jolley is a 30 year old female with hx of asthma, anemia, known horseshoe kidney and nephrolithiasis presenting with RIGHT pelvic pain requiring IV pain medication and CT evidence of distal RIGHT ureterolithiasis Interval History: POD#1 from CYSTOSCOPY WITH RIGHT RETROGRADE PYELOGRAM; STENT PLACEMENT on the right side. - patient doing well over night. Creat 0.7. WBC 7/6. Hgb 10.6 - Tmax 99. VSS - pain better controlled - pain well controlled - able to tolerate diet Vital Signs: BP 99/55 Pulse 83 Temp 99 ??F (37.2 ??C) (Oral) Resp 20 Ht 5' 4 (1.626 m) Wt 193 lb (87.5 kg) QpD996% BMI 33.13 kg/m2 Physical Exam: General: NAD, well appearing Head/Neck: Normocephalic ENT: Opens eyes CV: Regular rate, regular rhythm Lungs: No increased respiratory effort Abdomen: Soft, non-distended, mildly tender in RLQ Genitourinary: No CVA tenderness Extremities: No edema Neuro: Awake, alert UOP: x4 unmeasured voids., 500cc or documented UOP Labs: Recent Labs Component Name 11/26/20 0450 11/25/20 0404 11/24/20 0625 WBC 7.6 5.0 7.5 HGB 10.6* 10.3* 10.7* HCT 32.6* 32.1* 32.9* MCV 80.5* 80.9* 81.2 Recent Labs Component Name 11/26/20 0450 11/25/20 0404 11/24/20 0625 NA 140 140 139 CL 105 108* 106 CO2 26 27 26 BUN 14 13 13 CREATININE 0.7 0.7 0.6 CALCIUM 9.3 8.2* 8.4 Recent Labs Component Name 11/24/20 0625 02/02/19 1514 12/29/17 0903 10/11/15 1520 10/11/15 1520 PROT 6.2 - - - - ALB 3.4 - - - - TBILI 0.4 - - - - AST 10 15 15 - 9 ALT 5 8* 16 - 16 ALKPHOS 44 56 70 - 72 LIPASE - - - - 151 - = values in this interval not displayed. No results for input(s): PROTIME, INR, PTT in the last 03857 hours. No results for input(s): PHART, PO2ART, THB6YDI, BEART in the last 87133 hours. Lab results smartLinks are not currently available Imaging: CT abdomen, pelvis WO (11/23/2020)- (OSH, CT disc with urology) - Per Dr Michael engle patient has 2 or 3 stacked stones in the distal ureter on the RIGHT side. Mild hydroureter without significant hydronephrosis. 2-3 non- obstructing calcifications noted in bilateral kidneys. Horseshoe kidney confirmed. IUD in place. ?? Assessment: DaTresusi Jolley is a 30 year old female with horseshoe kidney and RIGHT sided nephrolithiasis with associated pain requiring IV pain medications and possible infected urine per OSH UA. She underwent right sided stent placement on 11/25. The patient is progressing well. She is tolerating a regular diet, and her pain is controlled. Plan: - Work towards discharge later this morning - Surgery order placed for Cystoscopy, RIGHT retrograde pyelogram, ureteroscopy, laser lithotripsy,stone basket extraction, possible stent exchange in roughly 6 weeks. Olga Knott APRN-STABILIZER OPERATOR 11/26/2020 8:14 AM * Caroline Regalado RN - 11/25/2020 7:57 AM CDT Pt voiding without diffficulty urine yellow cldy. C/o migraine cardoso and low pelvic pain toradol and dilaudid given prn. Npo after midnight for surgery in am. * Shyam Rodriguez MD - 11/25/2020 7:47 AM CDT Urologic Surgery Progress Note Admit Date: 11/24/2020 NAME: Jumana Jolley AGE: [age] year old SEX: female HPI: Jumana Jolley is a 30 year old female with hx of asthma, anemia, known horseshoe kidney and nephrolithiasis presenting with RIGHT pelvic pain requiring IV pain medication and CT evidence of distal RIGHT ureterolithiasis Interval History: Surgery cancelled overnight due to delays in OR IRMA CABRERA NPO since midnight but tolerated diet yesterday Denies nausea, emesis Continues to require IV pain medication Vital Signs: BP 101/56 Pulse 86 Temp 98.7 ??F (37.1 ??C) (Oral) Resp 18 Ht 5' 4 (1.626 m) Wt 193 lb (87.5 kg) SpO2 95% BMI 33.13 kg/m2 Physical Exam: General: NAD, well appearing Head/Neck: Normocephalic ENT: Opens eyes CV: Regular rate, regular rhythm Lungs: No increased respiratory effort Abdomen: Soft, non-distended, tender in RLQ Genitourinary: No CVA tenderness Extremities: No edema Neuro: Awake, alert UOP: x3 unmeasured voids Labs: Recent Labs Component Name 11/25/20 0404 11/24/20 0625 02/02/19 1514 WBC 5.0 7.5 7.3 HGB 10.3* 10.7* 10.4* HCT 32.1* 32.9* 34.5* MCV 80.9* 81.2 75.8* Recent Labs Component Name 11/25/20 0404 11/24/20 0625 02/02/19 1514 NA 140 139 - CL 108* 106 - CO2 27 26 22* BUN 13 13 10 CREATININE 0.7 0.6 0.67 CALCIUM 8.2* 8.4 9.2 Recent Labs Component Name 11/24/20 0625 02/02/19 1514 12/29/17 0903 10/11/15 1520 10/11/15 1520 PROT 6.2 - - - - ALB 3.4 - - - - TBILI 0.4 - - - - AST 10 15 15 - 9 ALT 5 8* 16 - 16 ALKPHOS 44 56 70 - 72 LIPASE - - - - 151 - = values in this interval not displayed. No results for input(s): PROTIME, INR, PTT in the last 20203 hours. No results for input(s): PHART, PO2ART, QSA9JSD, BEART in the last 58873 hours. Lab results smartLinks are not currently available Imaging: CT abdomen, pelvis WO (11/23/2020)- (OSH, CT disc with urology) - Per my read patient has 2 or 3 stacked stones in the distal ureter on the RIGHT side. Mild hydroureter without significant hydronephrosis. 2-3 non- obstructing calcifications noted in bilateral kidneys. Horseshoe kidney confirmed. IUD in place. ?? Assessment: Jumana Jolley is a 30 year old female with horseshoe kidney and RIGHT sided nephrolithiasis with associated pain requiring IV pain medications and possible infected urine per OSH UA who will undergo stent placement today Plan: - Proceed to OR for cystoscopy, RIGHT RGPG and stent placement - NPO - Continue current pain regimen - Continue IVF - Possible discharge after surgery today pending operative findings - Please page urology with questions I have seen and discussed this patient with Dr. Snowden. Shyam Rodriguez MD Urology Resident 11/25/2020 7:47 AM documented in this encounter H&P Notes * Shyam Rodriguez MD - 11/24/2020 9:57 AM CDT Urologic Surgery History and Physical Encounter Date: 11/24/2020 Name: Jumana Jolley Age: [age] year old Race: black Sex: female Chief Complaint: RIGHT pelvic pain HPI: Jumana Jolley is a 30 year old female with hx of asthma, anemia, known horseshoe kidney and nephrolithiasis presenting with RIGHT pelvic pain. Patient presented to [facility] with this pain and underwent CT scan demonstrating known horseshoe kidney with RIGHT distal ureteral stones (~7mm). UA was concerning for possible UTI at OSH and was transferred to [facility] for urologic evaluation and possible stent placement. Patient reports this pain has been ongoing for the last month causing her to have poor sleep. Denies nausea, emesis, fevers or chills. Reports pain has not necessarily gotten worse butcontinues to persist. Endorses similar episode in 2017 where she underwent stent placement and ESWLfor a kidney stone but hadn't had issues since. Denies other surgical hx or other medical issues. In ED her VSS, she is afebrile. Creatinine normal at 0.6. No leukocytosis (7.5). UA with >20 squamous cells but without nitrites. Still requiring IV pain medication. Past Medical History: Past Medical History: Diagnosis Date ??? Asthma remote ??? Chlamydia this ??? GBS (group B streptococcus) UTI complicating 08/07/2014 ??? History of anemia ??? History of sexually transmitted disease ??? Kidney stones ??? Migraines ??? depression ??? Trichomonas Treated this Past Surgical History: Past Surgical History: Procedure Laterality Date ??? Lithotripsy ??? NEGATIVE SURGICAL HISTORY Family History: Family History Problem Relation Name Age of Onset ??? Hypertension Maternal Grandmother ??? Hypertension Mother Social History: Social History Occupational History ??? Not on file Tobacco Use ??? Smoking status: Current Every Day Smoker Packs/day: 0.50 Types: Cigarettes Last attempt to quit: 02/13/2019 Years since quittin.7 ??? Smokeless tobacco: Never Used Substance and Sexual Activity ??? Alcohol use: Yes Alcohol/week: 0.0 standard drinks Comment: occ ??? Drug use: Not Currently Types: Marijuana ??? Sexual activity: Not on file Current medications: No current facility-administered medications on file prior to encounter. Current Outpatient Medications on File Prior to Encounter Medication Sig Dispense Refill ??? albuterol HFA (PROVENTIL;VENTOLIN;PROAIR) 108 (90 BASE) MCG/ACT inhaler Inhale 2 Puffs by mouthevery 6 hours as needed Reported on 10/23/2016 ??? ibuprofen (MOTRIN) 600 MG tablet Take 1 tablet by mouth every 6 hours as needed for Pain 30 tablet 0 ??? pantoprazole EC (PROTONIX) 40 MG tablet Take 1 tablet by mouth once daily (Patient not taking: Reported on 03/15/2019) 30 tablet 0 ? ? sucralfate (CARAFATE) 1 GM tablet Take 1 tablet by mouth 4 times daily - before meals & nightly (Patient not taking: Reported on 03/15/2019) 30 tablet 0 Allergies: Allergies Allergen Reactions ??? Augmentin Rash Hives ??? Vicodin [Hydrocodone-Acetaminophen] Urticaria Review of Systems Constitutional: Fatigue Negative for weight loss, fevers, chills, anorexia. Respiratory: Negative for shortness of breath, acute cough, asthma, wheezing Cardiovascular: Negative for chest pain, cyanosis Gastrointestinal: Negative for nausea, vomiting, hemetemesis, hematochezia, abdominal pain, constipation, diarrhea Genitourinary: Negative for dysuria, hematuria Skin: Negative for rash Hematologic/lymphatic: Negative for easy bruising Neurological: Negative for headaches, seizures Physical Examination: BP 118/52 Pulse 76 Temp 98.1 ??F (36.7 ??C) Resp 16 Ht 5' 4 (1.626 m) Wt 193 lb (87.5 kg) LMP 02/25/2019 SpO2 98% BMI 33.13 kg/m?? Body mass index is 33.13 kg/m??. General: NAD, well appearing Eyes: conjunctiva clear ENT: MMM, oropharynx clear Lungs: No increased respiratory effort Heart: regular rate and rhythm Abdomen: soft, non-distended Extremities: No edema, moves all four extremities Neuro: awake, alert Labs: Recent Labs Component Name 11/24/20 0625 02/02/19 1514 12/29/17 0903 11/27/17 1813 SODIUM - 140 141 135* POTASSIUM 3.0* 3.9 3.8 3.7 CHLORIDE - 109* 107 104 CO2 26 22* 28 24 BUN 13 10 12 9 CREATININE 0.6 0.67 0.79 0.73 GLUCOSE 81 92 91 92 CALCIUM 8.4 9.2 9.0 8.9 Recent Labs Component Name 11/24/20 0625 02/02/19 1514 WBC 7.5 7.3 RBC 4.05 4.55 HGB 10.7* 10.4* HCT 32.9* 34.5* MCV 81.2 75.8* MCH 26.4* 22.9* MCHC 32.5 30.1* RDW 17.1* - PLTCOUNT 305 397 LYMPHPCT - 27.9 BASOPHILPCT - 1.1 Recent Labs Component Name 11/24/20 0609 02/02/19 1751 12/15/16 1055 12/15/16 1055 COLORUA - Yellow - Yellow SPECGRAVUA - 1.028 - >=1.030 PHUA 6.0 6.0 - 6.0 PROTEINUA - 1+* - 1+* BLOODUA - 3+* - 3+* LEUKOCYTEUA - Trace* - Negative NITRITEUA - Negative - Negative GLUCOSEUA - Negative - Negative KETONEUA - Negative - Trace* BILIRUBINUA - Negative - Negative UROBILINUA 2.0* Negative - 1.0 WBCUA - 11-20* - 0-2 RBCUA 11-20* >100* - >100* EPITHUA - - - 0-2 MUCUSUA - 4+ - 3+ - = values in this interval not displayed. Micro: Recent Results (from the past 72 hour(s)) SARS-COV-2 (COVID-19)+INFLU A+B PCR RAPID Collection Time: 11/24/20 6:22 AM Specimen: Nasopharyngeal; Microbiology Result Value Ref Range COVID-19 PCR Not detected Not detected Influenza A Rapid JOSHUA Not Detected Not Detected Influenza B JOSHUA Rapid Not Detected Not Detected Imaging: CT abdomen, pelvis WO (11/23/2020)- (OSH, CT disc with urology) - Per my read patient has 2 or 3 stacked stones in the distal ureter on the RIGHT side. Mild hydroureter without significant hydronephrosis. 2-3 non- obstructing calcifications noted in bilateral kidneys. Horseshoe kidney confirmed. IUD in place. Assessment DaTreion Tita is a 30 year old female with horseshoe kidney and RIGHT sided nephrolithiasis with associated pain requiring IV pain medications and possible infected urine per OSH UA who will undergo urgent stent placement Plan - Consent obtained for cystoscopy, RIGHT RGPG, stent placement (consent with urology) - NPO with IVF - Pain control as needed - Will be admitted for antibiotics (ciprofloxacin 7d) and pending operative findings may be okay for discharge today versus tomorrow. - Will need follow up for definitive stone treatment as outpatient - Please page urology with questions Patient seen and discussed with Dr. Noah Rodriguez MD 11/24/2020 9:57 AM Associated attestation - Miller Snowden MD - 11/24/2020 1:26 PM CDT I have verified the documentation of the provider including all history, exam, and medical decision-making details. I have personally performed a physical exam and have personally reviewed the data (including lab and radiology) to support my medical decision-making as outlined in the note. I arrive independently at the same conclusion. In addition I note: Subjective: 30yo female with history of horseshoe kidney and nephrolithiasis. Presenting with 1 month of increasing pelvic pain. CT at OSH noting large distal right ureteral stone with hydronephrosis and UA suggesting infection. Objective: CT reviewed and right distal ureteral stones confirmed Assessment/Plan: To OR for right ureteral stent placement 11/24/2020 1:23 PM Miller Snowden MD documented in this encounter OR Notes * Operative - Miller Snowden MD - 11/25/2020 4:26 PM CDT NAME: JOHANNY JOLLEYRESUSI : 1990 AGE: 30 PROC DATE: 11/25/2020 SEX: F SURGEON: Miller Snowden MD ATTENDING PHYSICIAN: Miller Snowden M.D. RESIDENT PHYSICIAN: Shyam Rodriguez. PREOPERATIVE DIAGNOSIS: Right distal ureteral stone with stone impaction. POSTOPERATIVE DIAGNOSIS: Right distal ureteral stone with stone impaction. PROCEDURE PERFORMED: Cystoscopy, right retrograde pyelogram, right ureteral stent placement. INDICATIONS FOR PROCEDURE: This is a 30-year-old female with a history of a horseshoe kidney, who presented to the ER with 1-month history of increasing right-sided pelvic pain. CT scan showed impaction of distal left ureteral stones in the right side. Several stones measuring up to 7 mm were noted. She had a UA that was concerning for possible UTI. She was admitted for pain control, antibiotics.Today, she was taken for a stenting procedure. ANESTHESIA: General. ESTIMATED BLOOD LOSS: Minimal. SPECIMENS: None. COMPLICATIONS: None. IMPLANTS AND DRAINS: A 4.8 x 26 cm right ureteral stent. DISPOSITION: To PACU in stable condition. Plan for discharge home with followup after completion ofantibiotics for definitive lithotripsy. DESCRIPTION OF PROCEDURE: The patient was properly identified in the preoperative holding area. Informed consent was obtained. Once in the operating room, a timeout was performed. Site and procedure were confirmed. Anesthesia was induced. She was intubated. She was continued on scheduled ciprofloxacin for perioperative antibiotic. She was put in dorsal lithotomy position. Genitals were prepped and draped in sterile fashion. We took a 22[place] cystoscope was inserted into the urethra. Bladder was normal in appearance. Attention was turned to the right side. Retrograde pyelogram was performed on the right side. Interpretation of retrograde pyelogram showed there was filling of contrast into the distal ureter and there was a radiolucent filling defect in the distal ureter. There was minimal passage of contrast past this area consistent with complete obliteration of the distal ureter. We attempted to place a sensor wire into this area. The wire would not pass past the area of obstruction. As we continued to manipulate the wire, we noted that there was contrast within past the stone into the mid, proximal ureter and into the renal pelvis. We attempted to use a sensor wire and a Glidewire without success. We then used a rigid ureteroscope and placed this through the right ureter. We entered into the level of obstruction. There appeared to be complete impaction of the stone at that level. With rigid ureteroscope, we were able to navigate a wire, passed a small opening into the right renal pelvis consistent with the fluoroscopic guidance that we had previously obtained. We then attempted to place a 6[place] ureteral stents, met resistance. Thus, we then used a 4.8-[place] x26 cm stent and placed this over the wire with some difficulty into the right renal pelvis. We saw good a curl in the renal pelvis and a good curl in the bladder. Bladder was drained. She was taken to recovery in stable condition. I was present for the entire procedure. Miller Snowden MD [id number] Doc ID: [id number] Job ID: [id number] * Brief Op Note - Shyam Rodriguez MD - 11/25/2020 4:08 PM CDT Brief Op Note Procedure: CYSTOSCOPY WITH RIGHT RETROGRADE PYELOGRAM; STENT PLACEMENT Patient Name: Jumana Jolley Date of Service: 11/25/2020 Pre-Op Diagnosis: RIGHT nephrolithiasis Post-Op Diagnosis: Same Surgeon(s) and Role: * Miller Snowden MD - Primary * Shyam Rodriguez MD - Resident - Assisting Anesthesia Type: general LMA Complications: none Findings: Distal RIGHT impacted stone with strictured ureter, unable to pass 5fr open ended, placed4.8fr x26cm double J stent EBL: 1 ml Urine Output : Not measured IV Fluid Intake: Per anesthesia Drains: 4.8fr x26cm double J stent Specimen(s): None Shyam Rodriguez MD documented in this encounter ED Notes * Myron Lizama RN - 11/24/2020 3:45 PM CDT Report given client leaving for EAU * Margaux Newton RN - 11/24/2020 3:00 PM CDT Bed: [address] Expected date: Expected time: Means of arrival: Comments: MEDIC 33: 72YO M, ABD PAIN, REYEZ REMOVED YESTERDAY AND CANNOT VOID * Myron Lizama RN - 11/24/2020 12:48 PM CDT Client stating she is experiencing a headache medicated to address same * Yair Medellin MD - 11/24/2020 6:45 AM CDT ASSUMED CARE NOTE Patient signed out to me by Dr. Jordan at 6:46 AM. Briefly, Jumana Jolley is a 30 year old female is being evaluated for suprapubic pain secondaryto 7mm obstructing kidney stones bilaterally. pmhx of anemia, asthma, kidney stones. Past surgical history of lithotripsy. Given fentayl and dilaudid. Urology consulted. ABX given for UTI.VSS. NAD. Pt has no other medical complaints at this time. At this time the patient's condition is Stable. Thus far, studies reveal UTI, UA positive, potassium of 3.0. COVID negative. Pending studies include urine culture. Plan is pending urology recommendations and disposition. Patient Vitals for the past 6 hrs: Temp BP 11/24/20 1247 98.2 ??F (36.8 ??C) -- 11/24/20 1115 -- 98/55 ED Course 9:40 AM - After discussion with urology, the patient will be admitted to their service for further management of care. 10:00 AM - dilaudid injection 0.5 mg and benadryl 25 mg given. 1:54 PM - Patient at this time has a bed assigned with urology service. Patient to be transferred to their inpatient bed. This patient was evaluated during the COVID-19 pandemic. Clinical Impression: 1. Nephrolithiasis 2. Hydronephrosis, unspecified hydronephrosis type 3. Urinary tract infection with hematuria, site unspecified Disposition: Admit to urology By signing my name below, Lauro Winkler, attest that this documentation has been prepared under the direction and in the presence of Dr. Medellin. Signed: Tevin Keane. Date: 11/24/2020. Time:6:46 AM. By signing my name below, I, Lesterisrael Pereira, attest that this documentation has been prepared under the direction and in the presence of Dr. Medellin. Signed: Tevin Gallagher. I, Dr. Medellin, personally performed the services described in this documentation. All medical record entries made by the triciaibe were at my direction and in my presence. I have reviewed the chart and agree that the record reflects my personal performance and is accurate and complete. * Yessenia Jordan MD - 11/24/2020 6:08 AM CDT ED Attending Note Interval History: DaTresusi Jolley is a 30 year old female with a pmhx of anemia, asthma, kidney stones and surgicalhisotory of lithotripsy BIBEMS as a transfer from [facility] with complaints of worsening suprapubic pain for the last With associated worsening bilateral flank pain that radiates to groin onset 1 week ago. Patient reports the pain is an 8/10 and describes it as a constant ache that is sharp at times. Reports hematuria, constipation, nausea, and white vaginal discharge. Denies any diarrhea,dysuria, decreased urine output, fevers, chills, CP, or SOB. Noted that she has difficulty sleepingdue to the pain. Per OSH records, patient had a UA done that revealed leukocytosis and RBCs present. The CMP and CBC were unremarkable. Patient does not have a urologist and has an IUD. There are no other complaints or modifying factors at this time. Past Medical History: Diagnosis Date ??? Asthma remote ??? Chlamydia this ??? GBS (group B streptococcus) UTI complicating 08/07/2014 ??? History of anemia ??? History of sexually transmitted disease ??? Kidney stones ??? Migraines ??? depression ??? Trichomonas Treated this Past Surgical History: Procedure Laterality Date ??? Lithotripsy ??? NEGATIVE SURGICAL HISTORY Social History Socioeconomic History ??? Marital status: Single Spouse name: Not on file ??? Number of children: Not on file ??? Years of education: Not on file ??? Highest education level: Not on file Occupational History ??? Not on file Social Needs ??? Financial resource strain: Not on file ??? Food insecurity Worry: Not on file Inability: Not on file ??? Transportation needs Medical: Not on file Non-medical: Not on file Tobacco Use ??? Smoking status: Current Every Day Smoker Packs/day: 0.50 Types: Cigarettes Last attempt to quit: 02/13/2019 Years since quittin.7 ??? Smokeless tobacco: Never Used Substance and Sexual Activity ??? Alcohol use: Yes Alcohol/week: 0.0 standard drinks Comment: occ ??? Drug use: Not Currently Types: Marijuana ??? Sexual activity: Not on file Lifestyle ??? Physical activity Days per week: Not on file Minutes per session: Not on file ??? Stress: Not on file Relationships ??? Social connections Talks on phone: Not on file Gets together: Not on file Attends temple service: Not on file Active member of club or organization: Not on file Attends meetings of clubs or organizations: Not on file Relationship status: Not on file ??? Intimate partner violence Fear of current or ex partner: Not on file Emotionally abused: Not on file Physically abused: Not on file Forced sexual activity: Not on file Other Topics Concern ??? Not on file Social History Narrative ??? Not on file Review of Systems: (+) positive All systems negative except as marked. Constitutional: Negative for fever HENT: Negative for sore throat. Eyes: Negative for visual changes Respiratory: Negative for SOB, cough Cardiovascular: Negative for chest pain, palpitations Gastrointestinal: Negative vomiting, diarrhea. +suprapubic pain +bilateral flank pain radiating to groin +constipation +nausea Genitourinary: Negative for difficulty urinating +hematuria, +white vaginal discharge Musculoskeletal: Negative for neck pain, back pain, myalgia Skin: Negative for rash, itching Neurological: Negative for CARDOSO, dizziness, weakness, numbness, tingling Psychiatric: Negative for SI, hallucinations, anxiety Vitals: 11/24/20 0507 11/24/20 0511 11/24/20 0530 11/24/20 0630 BP: 109/83 113/74 118/52 Pulse: 76 76 Resp: 16 Temp: 98.1 ??F (36.7 ??C) SpO2: 99% 96% 98% Weight: 87.5 kg (193 lb) Height: 1.626 m (5' 4 ) Exam: Constitutional: well developed, well nourished, no acute distress HENT: normocephalic, atraumatic, moist oral mucosa, conjunctiva normal Eyes: PERRL, EOMi Neck: supple, normal ROM Cardiovascular: regular rate and rhythm, no murmur Respiratory: clear to auscultation bilaterally, no wheezes, no respiratory distress Abdomen: soft, non-tender, non-distended Musculoskeletal: Suprapubic tenderness on palpation, bilateral flank pain on palpation, normal active bowel sounds, no guarding Neurological: awake, alert&Ox4, moving all extremities, no focal motor/sensation deficits. Psychiatric: mood and affect normal Medical Decision Makin. Suprapublic tenderness 2. Bilateral flank pain Assessment/Plan: Repeat labs, consult urology, pain control, probably repeat CT Results: Labs Reviewed URINALYSIS W/MICROSCOPIC NO CULTURE - Abnormal; Notable for the following components: Result Value Clarity UA Cloudy (*) Protein UA 1+ (*) Ketone UA 1+ (*) Leukocyte Esterase 3+ (*) Urobilinogen UA 2.0 (*) RBC UA 11-20 (*) WBC UA 21-50 (*) Bacteria UA 1+ (*) Squamous Epithelial Cells UA >20 (*) Mucus UA 4+ (*) All other components within normal limits Narrative: CBC W AUTO DIFFERENTIAL - Abnormal; Notable for the following components: Hemoglobin 10.7 (*) Hematocrit 32.9 (*) MCH 26.4 (*) RDW-SD 50.4 (*) RDW-CV 17.1 (*) MPV 9.1 (*) Monocytes Absolute 0.90 (*) Basophils Absolute 0.07 (*) All other components within normal limits COMPREHENSIVE METABOLIC PANEL - Abnormal; Notable for the following components: Potassium 3.0 (*) All other components within normal limits SARS-COV-2 (COVID-19)+INFLU A+B PCR RAPID - Normal Narrative: Influenza assay performed by Nucleic Acid Amplification. Results do not exclude the possibility of a mixed viral infection. NOTE: Detecting and identifying specific viral nucleic acids from individuals exhibiting signs and symptoms of respiratory infection aids in the diagnosis of respiratory infection, if used in conjunction with other clinical and laboratory findings. The results of this test should not be used as thesole basis for diagnosis, treatment, or patient management decisions. This nucleic acid amplification assay performance was validated by [facility]. This test has been authorized by the [...] the Act, 21 U.S.C 360bbb-3 (b)(1), unless theauthorization is terminated or revoked sooner. Fact Sheets for this EUA assay are available upon request. HCG URINE QUALITATIVE - Normal CULTURE URINE No orders to display ED course: 3:56 AM- Per OSH records, patient was last given fentanyl at 3:30 AM. She reports she is still in pain at this time. 6:08 AM- Patient c/o pain. Will give dialuadid. 7:00 AM- PAMELLA to Dr. Medellin. Pending urology consult. Plan is pain control and likley admission. The patient's Oxygen Saturation Monitor was interpreted by me. The reading was 99%. The patient wason RA at the time of the reading. This is interpreted as normal. Consult Yes Procedure done at this time No Ultrasound done at this time No Orders and Medicine administered during this encounter: Orders Placed This Encounter ??? CULTURE URINE ??? SARS-COV-2 (COVID-19)+INFLU A+B PCR RAPID ??? HCG URINE QUALITATIVE ??? URINALYSIS W/MICROSCOPIC NO CULTURE ??? CBC W AUTO DIFFERENTIAL ??? COMPREHENSIVE METABOLIC PANEL ??? HYDROmorphone (DILAUDID) injection 0.5 mg ??? AND Linked Order Group ??? 0.9% NaCl injection 3 mL ??? 0.9% NaCl injection 1-10 mL Medications 0.9% NaCl injection 3 mL (has no administration in time range) And 0.9% NaCl injection 1-10 mL (has no administration in time range) HYDROmorphone (DILAUDID) injection 0.5 mg (0.5 mg Intravenous $ Given 11/24/20 8128) Clinical Impression: 1. Nephrolithiasis 2. Hydronephrosis, unspecified hydronephrosis type 3. Urinary tract infection with hematuria, site unspecified Disposition: PAMELLA to Dr. Medellin. By signing my name below, I, Jolie Amado, attest that this documentation has been prepared under the direction and in the presence of Dr. Jordan. Signed: Tevin Fernandez. I, Dr. Jordan, personally performed the services described in this documentation. All medical record entries made by the scribe were at my direction and in my presence. I have reviewed the chart and agree that the record reflects my personal performance and is accurate and complete. * Nadiya Owens RN - 11/24/2020 5:05 AM CDT Pt BIBEMS from OSH for urology referral. OSH confirms active UTI and kidney stones. Patient reports8/10 flank pain and abdominal pain. VSS. documented in this encounter Plan of Treatment Not on file documented as of this encounter Procedures Procedure Name Priority Date/Time Associated Diagnosis Comments FL CYSTO SURGERY Routine 11/26/2020 3:55 PM CDT Nephrolithiasis CBC W AUTO DIFFERENTIAL Routine 11/26/2020 4:50 AM CDT Nephrolithiasis BASIC METABOLIC PANEL (CALCIUM TOTAL) Routine 11/26/2020 4:50 AM CDT Nephrolithiasis AR CYSTOURETHROSCOPY,UR ETER CATHETER 11/25/2020 3:31 PM CDT Hematuria, unspecified type Special Needs ORIGINALLY BOOKED LEVEL 3 ON 11/24/2020 @ 0950 DR SNOWDEN REQUEST TO MOVE CASE TO 11/26/19 @ 1835 CBC W AUTO DIFFERENTIAL Routine 11/25/2020 4:04 AM CDT Nephrolithiasis BASIC METABOLIC PANEL (CALCIUM TOTAL) Routine 11/25/2020 4:04 AM CDT Nephrolithiasis CBC W AUTO DIFFERENTIAL STAT 11/24/2020 6:25 AM CDT COMPREHENSIVE METABOLIC PANEL STAT 11/24/2020 6:25 AM CDT SARS-COV-2 (COVID-19)+INFLU A+B PCR RAPID STAT 11/24/2020 6:22 AM CDT URINALYSIS W/MICROSCOPIC NO CULTURE STAT 11/24/2020 6:09 AM CDT HCG URINE QUALITATIVE STAT 11/24/2020 6:09 AM CDT CULTURE URINE STAT 11/24/2020 6:09 AM CDT AR CYSTOURETHROSCOPY,UR ETER CATHETER Level 3 Disorder Special Needs Level 3 @ 0950. SRC documented in this encounter Results * FL CYSTO SURGERY (11/26/2020 3:55 PM CDT) Narrative [facility] - 11/30/2020 9:41 PM CDT Fluoroscopy was used for this exam in the OR. Please see the Operative report. Miller Snowden MD FLUOROSCOPY ORDERA KATHIA [facility] * (ABNORMAL) CBC W AUTO DIFFERENTIAL (11/26/2020 4:50 AM CDT) WBC 7.6 3.5 - 10.5 10? 3 /uL 11/26/2020 5:42 AM [facility] Comment:Confirmed by repeat analysis. RBC 4.05 3.90 - 5.00 10? 6 /uL 11/26/2020 5:42 AM [facility] Hemoglobin 10.6(L) 12.0 - 15.5 g/dL 11/26/2020 5:42 AM [facility] Hematocrit 32.6(L) 35.0 - 45.0 % 11/26/2020 5:42 AM [facility] MCV 80.5(L) 81.0 - 97.0 fL 11/26/2020 5:42 AM [facility] MCH 26.2(L) 28.0 - 34.0 pg 11/26/2020 5:42 AM [facility] MCHC 32.5 32.0 - 36.0 g/dL 11/26/2020 5:42 AM [facility] Platelet Count 315 150 - 400 10? 3 /uL 11/26/2020 5:42 AM [facility] RDW-SD 49.8 36.0 - 50.0 fL 11/26/2020 5:42 AM [facility] RDW-CV 16.9(H) 11.2 - 14.8 % 11/26/2020 5:42 AM [facility] MPV 9.9 9.3 - 12.8 fL 11/26/2020 5:42 AM [facility] nRBC Absolute 0.00 0 10? 3 /uL 11/26/2020 5:42 AM [facility] nRBC Auto 0.0 0 /100 WBC 11/26/2020 5:42 AM [facility] Neutrophils % 74.5(H) 35.0 - 70.0 % 11/26/2020 5:42 AM [facility] Lymphocytes % 13.7(L) 19.7 - 55.1 % 11/26/2020 5:42 AM [facility] Monocytes % 10.9 3.0 - 15.0 % 11/26/2020 5:42 AM [facility] Eosinophils % 0.1 0.0 - 6.0 % 11/26/2020 5:42 AM [facility] Basophil % 0.4 0.0 - 1.5 % 11/26/2020 5:42 AM T [facility] Neutrophils Absolute 5.7 1.6 - 7.0 10? 3 /uL 11/26/2020 5:42 AM [facility] Lymphocyte Absolute 1.0 0.8 - 2.9 10? 3 /uL 11/26/2020 5:42 AM [facility] Monocytes Absolute 0.83(H) 0.14 - 0.66 10? 3 /uL 11/26/2020 5:42 AM [facility] Eosinophils Absolute 0.01 0.00 - 0.45 10? 3 /uL 11/26/2020 5:42 AM [facility] Basophils Absolute 0.03 0.00 - 0.06 10? 3 /uL 11/26/2020 5:42 AM [facility] Immature Granulocytes % 0.4 0.0 - 1.0 % 11/26/2020 5:42 AM [facility] Blood BLOOD SPECIMEN / Unknown Lab Venipuncture / Unknown 11/26/2020 4:50 AM CDT 11/26/2020 5:27 AM CDT Yair Medellin MD LAB - HEMATOLOG Y ORDERABLES Performing Organization Address [facility]/State/[facility] Co de Phone Number [facility] [address] [place] [address], [facility] [phone] * (ABNORMAL) BASIC METABOLIC PANEL (CALCIUM TOTAL) (11/26/2020 4:50 AM CDT) BUN 14 7 - 26 mg/dL 11/26/2020 5:50 AM [facility] Creatinine 0.7 0.6 - 1.2 mg/dL 11/26/2020 5:50 AM [facility] Sodium 140 136 - 145 mmol/L 11/26/2020 5:50 AM [facility] Potassium 3.9 3.5 - 4.5 mmol/L 11/26/2020 5:50 AM [facility] Chloride 105 98 - 107 mmol/L 11/26/2020 5:50 AM [facility] CO2 26 22 - 29 mmol/L 11/26/2020 5:50 AM [facility] Glucose 116(H) 70 - 115 mg/dL 11/26/2020 5:50 AM [facility] Calcium 9.3 8.4 - 10.2 mg/dL 11/26/2020 5:50 AM [facility] Anion Gap 13 8 - 18 11/26/2020 5:50 AM [facility] BUN/Creatinine Ratio 20 7 - 23 11/26/2020 5:50 AM [facility] Osmolality Calculated 291 270 - 300 mOsm/kg 11/26/2020 5:50 AM [facility] eGFR >60 >60 mL/min/1.7 3 m2 11/26/2020 5:50 AM [facility] Blood BLOOD SPECIMEN / Unknown Lab Venipuncture / Unknown 11/26/2020 4:50 AM T 11/26/2020 5:27 AM T Yair Medellin MD LAB - CHEMISTRY ORDERABLES [facility] [address] [place] [id number] [phone] * (ABNORMAL) CBC W AUTO DIFFERENTIAL (11/25/2020 4:04 AM CDT) WBC 5.0 3.5 - 10.5 10? 3 /uL 11/25/2020 4:43 AM [facility] RBC 3.97 3.90 - 5.00 10? 6 /uL 11/25/2020 4:43 AM [facility] Hemoglobin 10.3(L) 12.0 - 15.5 g/dL 11/25/2020 4:43 AM [facility] Hematocrit 32.1(L) 35.0 - 45.0 % 11/25/2020 4:43 AM [facility] MCV 80.9(L) 81.0 - 97.0 fL 11/25/2020 4:43 AM [facility] MCH 25.9(L) 28.0 - 34.0 pg 11/25/2020 4:43 AM [facility] MCHC 32.1 32.0 - 36.0 g/dL 11/25/2020 4:43 AM [facility] Platelet Count 291 150 - 400 10? 3 /uL 11/25/2020 4:43 AM [facility] RDW-SD 50.4(H) 36.0 - 50.0 fL 11/25/2020 4:43 AM [facility] RDW-CV 17.0(H) 11.2 - 14.8 % 11/25/2020 4:43 AM [facility] MPV 9.3 9.3 - 12.8 fL 11/25/2020 4:43 AM [facility] nRBC Absolute 0.00 0 10? 3 /uL 11/25/2020 4:43 AM [facility] nRBC Auto 0.0 0 /100 WBC 11/25/2020 4:43 AM [facility] Neutrophils % 46.1 35.0 - 70.0 % 11/25/2020 4:43 AM [facility] Lymphocytes % 34.1 19.7 - 55.1 % 11/25/2020 4:43 AM [facility] Monocytes % 14.8 3.0 - 15.0 % 11/25/2020 4:43 AM [facility] Eosinophils % 3.8 0.0 - 6.0 % 11/25/2020 4:43 AM [facility] Basophil % 0.6 0.0 - 1.5 % 11/25/2020 4:43 AM [facility] Neutrophils Absolute 2.3 1.6 - 7.0 10? 3 /uL 11/25/2020 4:43 AM [facility] Lymphocyte Absolute 1.7 0.8 - 2.9 10? 3 /uL 11/25/2020 4:43 AM [facility] Monocytes Absolute 0.74(H) 0.14 - 0.66 10? 3 /uL 11/25/2020 4:43 AM [facility] Eosinophils Absolute 0.19 0.00 - 0.45 10? 3 /uL 11/25/2020 4:43 AM [facility] Basophils Absolute 0.03 0.00 - 0.06 10? 3 /uL 11/25/2020 4:43 AM [facility] Immature Granulocytes % 0.6 0.0 - 1.0 % 11/25/2020 4:43 AM [facility] Blood BLOOD SPECIMEN / Unknown Lab Venipuncture / Unknown 11/25/2020 4:04 AM CDT 11/25/2020 4:25 AM CDT Yair Medellin MD LAB - HEMATOLOG Y ORDERABLES [facility] [address] [place] [id number], [facility] [phone] * (ABNORMAL) BASIC METABOLIC PANEL (CALCIUM TOTAL) (11/25/2020 4:04 AM CDT) BUN 13 7 - 26 mg/dL 11/25/2020 4:52 AM [facility] Creatinine 0.7 0.6 - 1.2 mg/dL 11/25/2020 4:52 AM [facility] Sodium 140 136 - 145 mmol/L 11/25/2020 4:52 AM [facility] Potassium 3.8 3.5 - 4.5 mmol/L 11/25/2020 4:52 AM [facility] Chloride 108(H) 98 - 107 mmol/L 11/25/2020 4:52 AM [facility] CO2 27 22 - 29 mmol/L 11/25/2020 4:52 AM [facility] Glucose 102 70 - 115 mg/dL 11/25/2020 4:52 AM [facility] Calcium 8.2(L) 8.4 - 10.2 mg/dL 11/25/2020 4:52 AM [facility] Anion Gap 9 8 - 18 11/25/2020 4:52 AM [facility] BUN/Creatinine Ratio 19 7 - 23 11/25/2020 4:52 AM [facility] Osmolality Calculated 290 270 - 300 mOsm/kg 11/25/2020 4:52 AM [facility] eGFR >60 >60 mL/min/1.7 3 m2 11/25/2020 4:52 AM [facility] Blood BLOOD SPECIMEN / Unknown Lab Venipuncture / Unknown 11/25/2020 4:04 AM CDT 11/25/2020 4:25 AM CDT Yair Medellin MD LAB - CHEMISTRY ORDERABLES Performing Organization Address [facility] Co de Phone Number [facility] [address] [place] [id number], [facility] [phone] * (ABNORMAL) COMPREHENSIVE METABOLIC PANEL (11/24/2020 6:25 AM CDT) BUN 13 7 - 26 mg/dL 11/24/2020 6:57 AM [facility] Creatinine 0.6 0.6 - 1.2 mg/dL 11/24/2020 6:57 AM [facility] Sodium 139 136 - 145 mmol/L 11/24/2020 6:57 AM [facility] Potassium 3.0(L) 3.5 - 4.5 mmol/L 11/24/2020 6:57 AM [facility] Chloride 106 98 - 107 mmol/L 11/24/2020 6:57 AM [facility] CO2 26 22 - 29 mmol/L 11/24/2020 6:57 AM [facility] Glucose 81 70 - 115 mg/dL 11/24/2020 6:57 AM [facility] Calcium 8.4 8.4 - 10.2 mg/dL 11/24/2020 6:57 AM [facility] Protein Total 6.2 6.0 - 8.3 g/dL 11/24/2020 6:57 AM [facility] Albumin 3.4 3.4 - 5.0 g/dL 11/24/2020 6:57 AM [facility] Bilirubin Total 0.4 0.2 - 1.2 mg/dL 11/24/2020 6:57 AM [facility] Alkaline Phosphatase 44 40 - 150 Units/L 11/24/2020 6:57 AM [facility] ALT 5 0 - 55 Units/L 11/24/2020 6:57 AM [facility] AST 10 5 - 34 Units/L 11/24/2020 6:57 AM [facility] Anion Gap 10 8 - 18 11/24/2020 6:57 AM [facility] BUN/Creatinine Ratio 22 7 - 23 11/24/2020 6:57 AM [facility] Osmolality Calculated 287 270 - 300 mOsm/kg 11/24/2020 6:57 AM [facility] Albumin/Globulin Ratio 1.2 1.1 - 2.3 11/24/2020 6:57 AM [facility] eGFR >60 >60 mL/min/1.7 3 m2 11/24/2020 6:57 AM [facility] Blood BLOOD SPECIMEN / Unknown Venipuncture / Unknown 11/24/2020 6:25 AM CDT 11/24/2020 6:32 AM CDT Bal Sanchez PA-C LAB - CHEM ISTRY ORDERABLES [facility] [address] [place] [id number] [phone] * (ABNORMAL) CBC W AUTO DIFFERENTIAL (11/24/2020 6:25 AM CDT) WBC 7.5 3.5 - 10.5 10? 3 /uL 11/24/2020 6:38 AM [facility] RBC 4.05 3.90 - 5.00 10? 6 /uL 11/24/2020 6:38 AM [facility] Hemoglobin 10.7(L) 12.0 - 15.5 g/dL 11/24/2020 6:38 AM [facility] Hematocrit 32.9(L) 35.0 - 45.0 % 11/24/2020 6:38 AM [facility] MCV 81.2 81.0 - 97.0 fL 11/24/2020 6:38 AM [facility] MCH 26.4(L) 28.0 - 34.0 pg 11/24/2020 6:38 AM [facility] MCHC 32.5 32.0 - 36.0 g/dL 11/24/2020 6:38 AM [facility] Platelet Count 305 150 - 400 10? 3 /uL 11/24/2020 6:38 AM [facility] RDW-SD 50.4(H) 36.0 - 50.0 fL 11/24/2020 6:38 AM [facility] RDW-CV 17.1(H) 11.2 - 14.8 % 11/24/2020 6:38 AM [facility] MPV 9.1(L) 9.3 - 12.8 fL 11/24/2020 6:38 AM [facility] nRBC Absolute 0.00 0 10? 3 /uL 11/24/2020 6:38 AM [facility] nRBC Auto 0.0 0 /100 WBC 11/24/2020 6:38 AM [facility] Neutrophils % 46.9 35.0 - 70.0 % 11/24/2020 6:38 AM [facility] Lymphocytes % 35.4 19.7 - 55.1 % 11/24/2020 6:38 AM [facility] Monocytes % 12.1 3.0 - 15.0 % 11/24/2020 6:38 AM [facility] Eosinophils % 4.2 0.0 - 6.0 % 11/24/2020 6:38 AM [facility] Basophil % 0.9 0.0 - 1.5 % 11/24/2020 6:38 AM [facility] Neutrophils Absolute 3.5 1.6 - 7.0 10? 3 /uL 11/24/2020 6:38 AM [facility] Lymphocyte Absolute 2.6 0.8 - 2.9 10? 3 /uL 11/24/2020 6:38 AM [facility] Monocytes Absolute 0.90(H) 0.14 - 0.66 10? 3 /uL 11/24/2020 6:38 AM [facility] Eosinophils Absolute 0.31 0.00 - 0.45 10? 3 /uL 11/24/2020 6:38 AM CDT [facility] Basophils Absolute 0.07(H) 0.00 - 0.06 10? 3 /uL 11/24/2020 6:38 AM T [facility] Immature Granulocytes % 0.5 0.0 - 1.0 % 11/24/2020 6:38 AM T [facility] Blood BLOOD SPECIMEN / Unknown Venipuncture / Unknown 11/24/2020 6:25 AM CDT 11/24/2020 6:32 AM CDT Bal Sanchez PA-C LAB - LAURA TOLOGY ORDERABLES [facility] [address] [place] [address], [facility] [phone] * SARS-COV-2 (COVID-19)+INFLU A+B PCR RAPID (11/24/2020 6:22 AM CDT) COVID-19 PCR Not detected Not detected 11/25/19 7:00 AM T [facility] Influenza A Rapid JOSHUA Not Detected Not Detected 11/24/2020 7:00 AM [facility] Influenza B JOSHUA Rapid Not Detected Not Detected 11/24/2020 7:00 AM T [facility] Microbiology SPECIMEN FROM NASOPHARYNGEAL STRUCTURE / Unknown Collection / Unknown 11/24/2020 6:22 AM CDT 11/24/2020 6:32 AM CDT Narrative [facility] - 11/24/2020 7:00 AM CDT Influenza assay [...] acid amplification assay performance was validated by [facility]. This test has been authorized by the [...] Sanchez PA-C LAB - MICR OBIOLOGY ORDERABLES Performing Organization Address City/[facility]/ZIP Co de Phone Number [facility] [address] [place] [address], [facility] [phone] * CULTURE URINE (11/24/2020 6:09 AM CDT) Pathologist [facility] Culture Urine >100,000 CFU/mL urogenital marco CHRYSTAL 11/25/2020 1:43 PM CDT [facility] MICROBIOLOGY Urine URINE SPECIMEN OBTAINED BY CLEAN CATCH PROCEDURE / Unknown Collection / Unknown 11/24/2020 6:09 AM CDT 11/24/2020 6:13 AM CDT Yair Medellin MD LAB - MICROBIOL OGY ORDERABLES [facility] MICROBIOLOGY [address] [place] [address], [facility] [phone] * (ABNORMAL) URINALYSIS W/MICROSCOPIC NO CULTURE (11/24/2020 6:09 AM CDT) Color UA Yellow Straw, Yellow, Colorless 11/24/2020 6:27 AM CDT [facility] Clarity UA Cloudy(A) Clear, Slt Cloudy 11/24/2020 6:27 AM CDT [facility] Specific [place] UA 1.024 1.005 - 1.030 11/24/2020 6:27 AM [facility] pH UA 6.0 5.0 - 8.0 pH 11/24/2020 6:27 AM [facility] Protein UA 1+(A) Negative mg/dL 11/24/2020 6:27 AM [facility] Glucose UA Negative Negative mg/dL 11/24/2020 6:27 AM [facility] Ketone UA 1+(A) Negative mg/dL 11/24/2020 6:27 AM [facility] Bilirubin UA Negative Negative mg/dL 11/24/2020 6:27 AM [facility] Blood UA Negative Negative 11/24/2020 6:27 AM [facility] Nitrite UA Negative Negative 11/24/2020 6:27 AM [facility] Leukocyte Esterase 3+(A) Negative 11/24/2020 6:27 AM [facility] Urobilinogen UA 2.0(A) Negative mg/dL 11/24/2020 6:27 AM [facility] RBC UA 11-20(A) None Seen, 0-2, 3-5 /HPF 11/24/2020 6:27 AM [facility] WBC UA 21-50(A) None Seen, 0-5 /HPF 11/24/2020 6:27 AM [facility] Bacteria UA 1+(A) None, Trace /HPF 11/24/2020 6:27 AM [facility] Squamous Epithelial Cells UA >20(A) None Seen, 0-2 /HPF 11/24/2020 6:27 AM [facility] Mucus UA 4+(A) None, 1+ /LPF 11/24/2020 6:27 AM [facility] Urine URINE SPECIMEN OBTAINED BY CLEAN CATCH PROCEDURE / Unknown Collection / Unknown 11/24/2020 6:09 AM CDT 11/24/2020 6:13 AM [facility] - 11/24/2020 6:27 AM [facility] Yair Medellin MD LAB - URINALYSI S ORDERABLES [facility] [address] [place] [address], [facility] [phone] * HCG URINE QUALITATIVE (11/24/2020 6:09 AM CDT) Test Urine Negative Negative 11/24/2020 6:33 AM CDT [facility] Urine URINE / Unknown Collection / Unknown 11/24/2020 6:09 AM CDT 11/24/2020 6:13 AM CDT Bal Sanchez PA-C LAB - URIN ALYSIS ORDERABLES [facility] [address] [place] [address], [facility] [phone] documented in this encounter Visit Diagnoses Diagnosis Nephrolithiasis- Primary Calculus of kidney Nephrolithiasis Calculus of kidney Hydronephrosis, unspecified hydronephrosis type Urinary tract infection with hematuria, site unspecified Hydronephrosis with renal and ureteral calculous obstruction documented in this encounter Administered Medications Inactive Administered Medications - up to 3 most recent administrations Medication Order MAR Action Action Date Dose Rate Site 0.9% NaCl injection 1-10 mL 1-10 mL, Intracatheter, PRN, Other, peripheral line flush, Starting on 11/24/20 at 0613, Until 11/26/20 at 1241, Flush peripheral IV catheter with 1-10 mL of normal saline before and after medications and prn to clear blood from the line or to verify patency. $ Given 11/26/2020 2:06 AM CDT 3 mL Le ft Wrist $ Given 11/24/2020 7:52 PM CDT 10 mL Le ft Arm 0.9% NaCl injection 3 mL 3 mL, Intracatheter, EVERY 8 HOURS, First dose on 11/24/20 at 0645, Until Discontinued, Flush peripheral IV catheter with 3 mL of normal saline every 8 hours. $ Given 11/26/2020 6:31 AM CDT 3 mL Left Wrist $ Given 11/25/2020 8:02 PM CDT 3 mL Le ft Arm $ Given 11/24/2020 10:24 PM CDT 3 mL 0.9% NaCl with potassium chloride 20 mEq infusion at 100 mL/hr, Intravenous, CONTINUOUS, Starting on 11/24/20 at 2000, Until Thu11/26/20 at 0909 $ New Bag/Syringe 11/26/2020 8:49 AM CDT 100 mL/hr Current Rate 11/25/2020 6:11 AM CDT 100 mL/hr Current Rate 11/24/2020 10:29 PM CDT 100 mL/hr acetaminophen (TYLENOL) tablet 975 mg 975 mg, Oral, EVERY 8 HOURS, 1095 doses, First dose on 11/24/20 at 1400, Last dose on Thu11/24/21 at 0600 $ Given 11/26/2020 6:30 AM CDT 975 mg $ Given 11/25/2020 9:12 PM CDT 975 mg $ Given 11/24/2020 10:21 PM CDT 975 mg calcium carbonate (500mg Ca /5 mL) suspension 500 mg, Oral, EVERY 4 HOURS PRN, Heartburn, GI Upset, Starting on Thu11/24/20 at 1126, Until Thu11/26/20 at 1241, Shake well before using. ciprofloxacin (CIPRO) 400 mg in 200 mL IVPB 400 mg, at 200 mL/hr, Intravenous, EVERY 12 HOURS, First dose on Thu11/24/20 at 1100, Until Discontinued, Indication for anti-infective therapy: Suspected infection, Site of anti-infective therapy: Urine/Genitourinary $ New Bag/Syringe 11/25/2020 10:30 PM CDT 400 mg 200 mL/hr $ New Bag/Syringe 11/25/2020 11:55 AM CDT 400 mg 200 m L/hr $ New Bag/Syringe 11/24/2020 10:31 PM CDT 400 mg 200 m L/hr diphenhydrAMINE (BENADRYL) capsule 25 mg 25 mg, Oral, EVERY 4 HOURS PRN, Insomnia, Itching, 365 doses, Starting on 11/24/20 at 1020, Until Thu11/26/20 at 1241 $ Given 11/25/2020 10:27 PM CDT 25 mg $ Given 11/25/2020 1:01 AM CDT 25 mg diphenhydrAMINE (BENADRYL) injection 25 mg 25 mg, Intravenous, NOW, 1 dose, On 11/24/20 at 0945, Administer IV at a rate not exceeding 25 mg/min. Can dilute in 5-10 mL NS as needed for patient comfort. $ Given 11/24/2020 9:55 AM CDT 25 mg docusate sodium (COLACE) capsule 100 mg 100 mg, Oral, 2 TIMES DAILY, 730 doses, First dose on 11/24/20 at 1030, Last dose on 11/23/21 at 2100 $ Given 11/26/2020 8:46 AM CDT 100 mg $ Given 11/25/2020 8:04 PM CDT 100 mg $ Given 11/25/2020 8:42 AM CDT 100 mg fentaNYL (PF) (SUBLIMAZE) injection 50 mcg 50 mcg, Intravenous, EVERY 10 MIN PRN, Severe Pain, 4 doses, Starting on 11/25/20 at 1615, Until 11/25/20 at 2048, Maximum total of 4 doses If patient reaches max total dose, please consult anesthesiologist prior to further administration of pain meds. Hold pain meds if there are signs of hypoventilation., PACU $ Given 11/25/2020 4:48 PM CDT 50 mcg $ Given 11/25/2020 4:33 PM CDT 50 mcg HYDROmorphone (DILAUDID) injection 0.2 mg 0.2 mg, Intravenous, EVERY 3 HOURS PRN, Severe Pain, Breakthrough pain, not tolerating PO alternative, Starting on 11/24/20 at 1844, Until 11/26/20 at 0909 $ Given 11/26/2020 12:32 AM CDT 0.2 mg $ Given 11/25/2020 8:02 PM CDT 0.2 mg $ Given 11/25/2020 5:20 PM CDT 0.2 mg HYDROmorphone (DILAUDID) injection 0.5 mg 0.5 mg, Intravenous, NOW, 1 dose, On 11/24/20 at 0615 $ Given 11/24/2020 6:31 AM CDT 0.5 mg HYDROmorphone (DILAUDID) injection 0.5 mg 0.5 mg, Intravenous, NOW, 1 dose, On 11/24/20 at 0945 $ Given 11/24/2020 9:55 AM CDT 0.5 mg ketorolac (TORADOL) injection 15 mg 15 mg, Intravenous, EVERY 6 HOURS PRN, Moderate Pain, Breakthrough pain, not tolerating PO alternative, Starting on 11/24/20 at 1020, Until Thu11/26/20 at 1241 $ Given 11/26/2020 2:07 AM CD T 15 mg $ Given 11/24/2020 7:53 PM CDT 15 mg $ Given 11/24/2020 12:51 PM CDT 15 mg lactated ringers infusion 125 mL/hr, Intravenous, CONTINUOUS, Starting on 11/24/20 at 1030, Until 11/24/20 at 1920 $ New Bag/Syringe 11/24/2020 12:43 PM CDT 125 mL/hr 125 mL/hr ondansetron (disintegrating) (ZOFRAN ODT) tablet 4 mg 4 mg, Oral, EVERY 6 HOURS PRN, Nausea/Vomiting, Starting on 11/24/20 at 1020, Until Thu11/26/20 at 1241, Dissolved orally on tongue ondansetron (ZOFRAN) injection 4 mg 4 mg, Intravenous, EVERY 6 HOURS PRN, Nausea/Vomiting, Starting on 11/24/20 at 1020, Until Thu11/26/20 at 1241, Administer IV if patient is NPO, actively vomiting, or unable to swallow. oxybutynin (DITROPAN) tablet 5 mg 5 mg, Oral, 3 TIMES DAILY PRN, Bladder spasms, urinary urgency, frequency, leaking around catheter, Starting on 11/24/20 at 1020, Until Thu11/26/20 at 1241 $ Given 11/26/2020 10:27 AM CDT 5 mg $ Given 11/26/2020 4:29 AM CDT 5 mg $ Given 11/25/2020 10:48 PM CDT 5 mg oxyCODONE (immediate release) (ROXICODONE) tablet 10 mg 10 mg, Oral, EVERY 6 HOURS PRN, Severe Pain, Starting on 11/24/20 at 1020, Until Thu11/26/20 at 1241 $ Given 11/26/2020 8:46 AM CDT 10 mg $ Given 11/26/2020 4:29 AM CDT 10 mg $ Given 11/25/2020 9:12 PM CDT 10 mg oxyCODONE (immediate release) (ROXICODONE) tablet 5 mg 5 mg, Oral, EVERY 6 HOURS PRN, Moderate Pain, Starting on 11/24/20 at 1020, Until 11/26/20 at 1241 phenol (CHLORASEPTIC) 1.4 % liquid 2 spray 2 spray, Oral, EVERY 1 HOUR PRN, Throat pain, discomfort per patient preference, Starting on 11/24/20 at 1020, Until 11/26/20 at 1241, ., WASTE DISPOSAL INSTRUCTIONS: Black Bin Disposal required. potassium chloride ER (KLOR-CON M) tablet 40 mEq 40 mEq, Oral, ONCE, 1 dose, On 11/24/20 at 2015, Do not crush or chew. $ Given 11/24/2020 8:27 PM CDT 40 mEq prochlorperazine (COMPAZINE) injection 5 mg 5 mg, Intravenous, EVERY 6 HOURS PRN, Nausea/Vomiting, Starting on 11/24/20 at 1020, Until 11/26/20 at 1241, If no relief from ondansetron (ZOFRAN), use prochlorperazine (COMPAZINE) in addition to ondansetron. prochlorperazine (COMPAZINE) injection 5 mg 5 mg, Intramuscular, EVERY 6 HOURS PRN, Nausea/Vomiting, Starting on 11/24/20 at 1020, Until 11/26/20 at 1241, If no relief from ondansetron (ZOFRAN), use prochlorperazine (COMPAZINE) in addition to ondansetron. Use IM route if IV is unavailable. tamsulosin (FLOMAX) capsule 0.4 mg 0.4 mg, Oral, DAILY, 365 doses, First dose on 11/24/20 at 1030, Last dose on 11/23/21 at 0900, At the same time every day after a meal. Do not crush, chew $ Given 11/26/2020 8:46 AM CDT 0.4 mg $ Given 11/25/2020 8:42 AM CDT 0.4 mg $ Given 11/24/2020 12:37 PM CDT 0.4 mg documented in this encounter Active and Recently Administered Medications Times are shown in CDT. Scheduled Medication Order 11/24/2020 11/25/2020 11/26/2020 0.9% NaCl injection 3 mL(Linked Group 1) 3 mL, Intracatheter, EVERY 8 HOURS, First dose on 11/24/20 at 0645, Until Discontinued, Flush peripheral IV catheter with 3 mL of normal saline every 8 hours. 1243 (Not Administered - Provider: Myron Lizama RN - Reason: See Comments - Comment: should have been administered on the previous shift)1449 (Canceled Entry - Provider: Юлия Gale RN)2224 ($ Given - Provider: Caroline Regalado RN) 0611 (Not Administered - Provider: Caroline Regalado RN - Reason: IV Currently Infusing)1454 (Canceled Entry - Provider: Юлия Gale RN)2001 ($ Given - Provider: Caroline Regalado RN) 0631 ($ Given - Provider: Caroline Regalado RN) acetaminophen (TYLENOL) tablet 975 mg 975 mg, Oral, EVERY 8 HOURS, 1095 doses, First dose on 11/24/20 at 1400, Last dose on 11/24/21 at 0600 1449 (Not Administered - Provider: Юлия Gale RN - Reason: NPO)2221 ($ Given - Provider: Caroline Regalado RN) 0735 (Not Administered - Provider: Caroline Regalado RN - Reason: NPO - Comment: or today)1455 (Canceled Entry - Provider: Юлия Gale RN)2112 ($ Given - Provider: Randi Olson RN) 0630 ($ Given - Provider: Caroline Regalado RN) ciprofloxacin (CIPRO) 400 mg in 200 mL IVPB 400 mg, at 200 mL/hr, Intravenous, EVERY 12 HOURS, First dose on 11/24/20 at 1100, Until Discontinued, Indication for anti-infective therapy: Suspected infection, Site of anti-infective therapy: Urine/Genitourinary 1246 ($ New Bag/Syringe - Provider: Myron Lizama RN)1250 (Current Rate - Provider: Caroline Regalado RN)1346 (Stopped - Provider: Myron Lizama RN)2231 ($ New Bag/Syringe - Provider: Caroline Regalado RN)2335 (Stopped - Provider: Caroline Regalado RN) 1155 ($ New Bag/Syringe - Provider: Юлия Gale RN)1156 (Stopped - Provider: Юлия Gale RN)2230 ($ New Bag/Syringe - Provider: Caroline Regalado RN) 0203 (Stopped - Provider: Caroline Regalado RN)1100 (Due) diphenhydrAMINE (BENADRYL) injection 25 mg (COMPLETED) 25 mg, Intravenous, NOW, 1 dose, On 11/24/20 at 0945, Administer IV at a rate not exceeding 25 mg/min. Can dilute in 5-10 mL NS as needed for patient comfort. 0955 ($ Given - Provider: Nadiya Owens RN) docusate sodium (COLACE) capsule 100 mg 100 mg, Oral, 2 TIMES DAILY, 730 doses, First dose on 11/24/20 at 1030, Last dose on 11/23/21 at 2100 1236 ($ Given - Provider: Myron Lizama RN)1950 ($ Given - Provider: Caroline Regalado RN) 0842 ($ Given - Provider: Юлия Gale, RAZIA)2003 ($ Given - Provider: Caroline Regalado, RAZIA) 0846 ($ Given - Provider: Logan De La Rosa RN) HYDROmorphone (DILAUDID) injection 0.5 mg (COMPLETED) 0.5 mg, Intravenous, NOW, 1 dose, On 11/24/20 at 0615 0631 ($ Given - Provider: Nadiya Owens RN) HYDROmorphone (DILAUDID) injection 0.5 mg (COMPLETED) 0.5 mg, Intravenous, NOW, 1 dose, On 11/24/20 at 0945 0955 ($ Given - Provider: Nadiya Owens RN) potassium chloride ER (KLOR-CON M) tablet 40 mEq (COMPLETED) 40 mEq, Oral, ONCE, 1 dose, On 11/24/20 at 2015, Do not crush or chew. 2026 ($ Given - Provider: Caroline Regalado, ARZIA) tamsulosin (FLOMAX) capsule 0.4 mg 0.4 mg, Oral, DAILY, 365 doses, First dose on 11/24/20 at 1030, Last dose on 11/23/21 at 0900, At the same time every day after a meal. Do not crush, chew 1237 ($ Given - Provider: Myron Lizama RN) 0842 ($ Given - Provider: Юлия Gale, RAZIA) 0846 ($ Given - Provider: Logan De La Rosa, RAZIA) Continuous Medication Order 11/24/2020 11/25/2020 11/26/2020 0.9% NaCl with potassium chloride 20 mEq infusion (CANCELED) at 100 mL/hr, Intravenous, CONTINUOUS, Starting on 11/24/20 at 2000, Until 11/26/20 at 0909 2225 ($ New Bag/Syringe - Provider: Caroline Regalado RN)2229 (Current Rate - Provider: Caroline Regalado, RAZIA) 0611 (Current Rate - Provider: Caroline Regalado, RAZIA) 0849 ($ New Bag/Syringe - Provider: Logan De La Rosa, RAZIA) lactated ringers infusion (CANCELED) 125 mL/hr, Intravenous, CONTINUOUS, Starting on 11/24/20 at 1030, Until 11/24/20 at 1920 1243 ($ New Bag/Syringe - Provider: Myron Lizama RN) PRN Medication Order 11/24/2020 11/25/2020 11/26/2020 0.9% NaCl injection 1-10 mL(Linked Group 1) 1-10 mL, Intracatheter, PRN, Other, peripheral line flush, Starting on 11/24/20 at 0613, Until 11/26/20 at 1241, Flush peripheral IV catheter with 1-10 mL of normal saline before and after medications and prn to clear blood from the line or to verify patency. 195 ($ Given - Provider: Caroline Regalado RN) 020 ($ Given - Provider: Caroline Regalado RN) calcium carbonate (500mg Ca /5 mL) suspension 500 mg, Oral, EVERY 4 HOURS PRN, Heartburn, GI Upset, Starting on 11/24/20 at 1126, Until 11/26/20 at 1241, Shake well before using. diphenhydrAMINE (BENADRYL) capsule 25 mg 25 mg, Oral, EVERY 4 HOURS PRN, Insomnia, Itching, 365 doses, Starting on 11/24/20 at 1020, Until 11/26/20 at 1241 0101 ($ Given - Provider: Caroline Regalado RN)2227 ($ Given - Provider: Caroline Regalado RN) fentaNYL (PF) (SUBLIMAZE) injection 50 mcg (CANCELED) 50 mcg, Intravenous, EVERY 10 MIN PRN, Severe Pain, 4 doses, Starting on 11/25/20 at 1615, Until 11/25/20 at 2048, Maximum total of 4 doses If patient reaches max total dose, please consult anesthesiologist prior to further administration of pain meds. Hold pain meds if there are signs of hypoventilation., PACU 1633 ($ Given - Provider: Caroline Reddy RN)1648 ($ Given - Provider: Caroline Reddy RN) HYDROmorphone (DILAUDID) injection 0.2 mg (CANCELED) 0.2 mg, Intravenous, EVERY 3 HOURS PRN, Severe Pain, Breakthrough pain, not tolerating PO alternative, Starting on 11/24/20 at 1844, Until 11/26/20 at 0909 1906 ($ Given - Provider: Юлия Gale RN)2311 ($ Given - Provider: Caroline Regalado RN) 0221 ($ Given - Provider: Caroline Regalado RN)0843 ($ Given - Provider: Юлия Gale RN)1154 ($ Given - Provider: Юлия Gale RN)1720 ($ Given - Provider: Юлия Gale RN)2001 ($ Given - Provider: Caroline Regalado, RAZIA) 0032 ($ Given - Provider: Caroline Regalado RN) iohexol (OMNIPAQUE 300) contrast (CANCELED) PRN, Starting on 11/25/20 at 1537, Until 11/25/20 at 1611, Intra-op 1537 ($ Given - Provider: Shyam Rodriguez MD - Comment: Used for imaging) ketorolac (TORADOL) injection 15 mg 15 mg, Intravenous, EVERY 6 HOURS PRN, Moderate Pain, Breakthrough pain, not tolerating PO alternative, Starting on 11/24/20 at 1020, Until 11/26/20 at 1241 1251 ($ Given - Provider: Myron Lizama RN)1953 ($ Given - Provider: Caroline Regalado RN - Comment: temporal) 0207 ($ Given - Provider: Caroline Regalado RN) ondansetron (disintegrating) (ZOFRAN ODT) tablet 4 mg 4 mg, Oral, EVERY 6 HOURS PRN, Nausea/Vomiting, Starting on 11/24/20 at 1020, Until 11/26/20 at 1241, Dissolved orally on tongue ondansetron (ZOFRAN) injection 4 mg 4 mg, Intravenous, EVERY 6 HOURS PRN, Nausea/Vomiting, Starting on 11/24/20 at 1020, Until Thu11/26/20 at 1241, Administer IV if patient is NPO, actively vomiting, or unable to swallow. oxybutynin (DITROPAN) tablet 5 mg 5 mg, Oral, 3 TIMES DAILY PRN, Bladder spasms, urinary urgency, frequency, leaking around catheter, Starting on 11/24/20 at 1020, Until Thu11/26/20 at 1241 2248 ($ Given - Provider: Caroline Regalado RN) 0429 ($ Given - Provider: Caroline Regalado RN)1027 ($ Given - Provider: Logan De La Rosa, RAZIA) oxyCODONE (immediate release) (ROXICODONE) tablet 10 mg(Linked Group 2) 10 mg, Oral, EVERY 6 HOURS PRN, Severe Pain, Starting on 11/24/20 at 1020, Until Thu11/26/20 at 1241 0842 ($ Given - Provider: Юлия Gale RN)2112 ($ Given - Provider: Randi Olson RN) 0429 ($ Given - Provider: Caroline Regalado RN)0846 ($ Given - Provider: Logan De La Rosa, RAZIA) oxyCODONE (immediate release) (ROXICODONE) tablet 5 mg(Linked Group 2) 5 mg, Oral, EVERY 6 HOURS PRN, Moderate Pain, Starting on 11/24/20 at 1020, Until Thu11/26/20 at 1241 0842 (See Alternative - Provider: Юлия Gale, RAZIA)2112 (See Alternative - Provider: Randi Olson, RAZIA) 0429 (See Alternative - Provider: Caroline Regalado, RAZIA)0846 (See Alternative - Provider: Logan De La Rosa, RAZIA) phenol (CHLORASEPTIC) 1.4 % liquid 2 spray 2 spray, Oral, EVERY 1 HOUR PRN, Throat pain, discomfort per patient preference, Starting on 11/24/20 at 1020, Until Thu11/26/20 at 1241, ., WASTE DISPOSAL INSTRUCTIONS: Black Bin Disposal required. prochlorperazine (COMPAZINE) injection 5 mg 5 mg, Intravenous, EVERY 6 HOURS PRN, Nausea/Vomiting, Starting on 11/24/20 at 1020, Until Thu11/26/20 at 1241, If no relief from ondansetron (ZOFRAN), use prochlorperazine (COMPAZINE) in addition to ondansetron. prochlorperazine (COMPAZINE) injection 5 mg 5 mg, Intramuscular, EVERY 6 HOURS PRN, Nausea/Vomiting, Starting on 11/24/20 at 1020, Until Thu11/26/20 at 1241, If no relief from ondansetron (ZOFRAN), use prochlorperazine (COMPAZINE) in addition to ondansetron. Use IM route if IV is unavailable. Linked Groups Order Group 1: SALINE LOCK, INSERT AND MAINTAIN (CANCELED) Routine, CONTINUOUS, Starting on 11/24/20 at 0615, Until Specified, New collection And 0.9% NaCl injection 3 mLJump to med 3 mL, Intracatheter, EVERY 8 HOURS, First dose on 11/24/20 at 0645, Until Discontinued, Flush peripheral IV catheter with 3 mL of normal saline every 8 hours. And 0.9% NaCl injection 1-10 mLJump to med 1-10 mL, Intracatheter, PRN, Other, peripheral line flush, Starting on 11/24/20 at 0613, Until Thu11/26/20 at 1241, Flush peripheral IV catheter with 1-10 mL of normal saline before and after medications and prn to clear blood from the line or to verify patency. Group 2: oxyCODONE (immediate release) (ROXICODONE) tablet 10 mgJump to med 10 mg, Oral, EVERY 6 HOURS PRN, Severe Pain, Starting on 11/24/20 at 1020, Until 11/26/20 at 1241 Or oxyCODONE (immediate release) (ROXICODONE) tablet 5 mgJump to med 5 mg, Oral, EVERY 6 HOURS PRN, Moderate Pain, Starting on 11/24/20 at 1020, Until Thu11/26/20 at 1241 documented in this encounter Care Teams Grant Officer Relationship Specialty Start Date End Date Rema Austni MD [address] [place] [address] [place] [address] PCP - General Family Medicine 11/24/20 02/20/21 documented as of this encounter
--- OUTSIDE RECORDS SUMMARY | 2024-09-25 11:46 | XMS_ITS | Encounter Summary ---
Author Organization [facility] Health Address [address] [place] [address] Care Team Providers Care Clothes Drier Assembler Name Role Phone Rema Austin MD Primary Care Provider [phone] Encounter Details Date Type Department Care Team (Late st Contact Info) Description 11/25/2020 Orders Only [facility] [address] [place] [phone] Shyam Rodriguez MD Right nephrolithiasis Social History Tobacco Use Types Packs/Day Years [...] as of this encounter Visit Diagnoses Diagnosis Right nephrolithiasis- Primary documented in this encounter Care Teams Clothes Drier Assembler Relationship Specialty Start Date End Date Rema Austin MD [address] [place] [address] [place] [phone] PCP - General Family Medicine 11/24/20 02/20/21 documented as of this encounter
--- OUTSIDE RECORDS SUMMARY | 2024-09-25 11:46 | XMS_ITS | Encounter Summary ---
Author Organization [facility] Health Address [address] [place] [address] Care Team Providers Care Actuarial Consultant Name Role Phone Rema Austin MD Primary Care Provider [phone] Reason for Visit * Reason Onset Date Comments Surgery Scheduling 11/27/2020 Encounter Details Date Type Department Care Team (Late st Contact Info) Description 11/27/2020 Telephone [facility] [address] [place] [address] Miller Zamora MD [address] [place] [phone] Surgery Scheduling Social History Tobacco Use Types Packs/Day Years [...] encounter Miscellaneous Notes * Telephone Encounter - Alisha Browning - 11/27/2020 2:22 PM CDT Cystoscopy, RIGHT retrograde pyelogram, ureteroscopy, laser lithotripsy, stone basket extraction, possible stent exchange [66862, [id number], 28018] Right nephrolithiasis [N20.0] - Primary 1992 [id number] NO PAT Lab 12/31/2020-[facility] COVID 01/11/2021 @9AM [facility] SX 01/14/2021 @940AM [facility]# [id number] Letter mailed/Emailed/verbal confirmation Alisha Browning 11/27/2020 2:22 PM documented in this encounter Plan of Treatment Not on file documented as of this encounter Visit Diagnoses Not on filedocumented in this encounter Care Teams Actuarial Consultant Relationship Specialty Start Date End Date Rema Austin MD [address] [place] [address] [place] [phone] PCP - General Family Medicine 11/24/20 02/20/21 documented as of this encounter
--- OUTSIDE RECORDS SUMMARY | 2024-09-25 11:47 | XMS_ITS | Encounter Summary ---
Author Organization [facility] Address [address] [place] [address] Care Team Providers Care Artificial Fly Tier Name Role Phone Rema Austin MD Primary Care Provider [phone] Reason for Visit * Auth/Cert Specialty Diagnoses / Procedures Referred By Norm benjamin Referred To Contact Referral ID Status Reason Start Date Expiration Date Visits Re quested Visits Authorized [id number] 1 1 Encounter Details Date Type Department Care Team (Late st Contact Info) Description 11/24/2020 4:29 PM CDT Anesthesia Event [facility] [address] [place] [address] Nohemi Crowe MD [address] [place] [address] Marlyn Saunders, ASBESTOS SIDING INSTALLER-ROUGH ROUNDER [address] [place] [phone] Anesthesia Record Procedure Summary Procedure Name Responsible Anesthesiologist Anesthesia Start Time Anesthesia Stop Time Cystoscopy; Right Retrograde Pyelogram; Stent Placement Events Date Time Event Comment 11/24/2020 1710 Meds * Agents No agents on file. * Blood No blood administrations on file. Lines, Drains, and Airways No LDAs on file. 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 Patient is scheduled for level 3 cystoscopy andstent placement. PMHx: - Asthma; well controlled; last exacerbation over several years ago; Physical Exam: Orientation X3 Airway/Mallampati Score: I Mouth Opening Distance: 3 fingerwidths Neck ROM: full TM Distance: > 3 FB Teeth: normal Heart: normal - S1 S2 Lungs: clear to ausculation bilaterally Abdomen Exam: soft Diagnostic Tests: Lab(s) reviewed: Yes. ANESTHESIA PLAN ASA Score: 2 E NPO Status: No solids since midnight Anesthesia Plan: general Planned Induction: intravenous Planned Postop Destination: PACU Anesthetic plan was discussed with: patient Anesthetic Plan discussion was: Consented The patient's procedural Anesthetic Plan was discussed with the anesthesiologist, resident and ROUGH ROUNDER. BMI, Height, Weight Tobacco History Estimated body [...] have been marked as taking for the 11/24/20 encounter (Hospital Encounter). Current Facility-Administered Medications Medication Dose Last Admin ??? 0.9% NaCl 3 mL And ??? 0.9% NaCl 1-10 mL ??? acetaminophen 975 mg ??? calcium carbonate (500mg Ca /5 mL) 500 mg ??? ciprofloxacin 400 mg ??? diphenhydrAMINE 25 mg ??? docusate sodium 100 mg ??? HYDROmorphone 0.2 mg ??? ketorolac 15 mg ??? lactated ringers 125 mL/hr ??? ondansetron (disintegrating) 4 mg ??? ondansetron 4 mg ??? oxybutynin 5 mg ??? oxyCODONE (immediate release) 10 mg Or ??? oxyCODONE (immediate release) 5 mg ??? phenol 2 spray ??? prochlorperazine 5 mg ??? prochlorperazine 5 mg ??? tamsulosin 0.4 mg Allergies: Allergies Allergen Reactions ??? Augmentin Rash [...] 0609 HCGURINE Negative Recent Labs Component Name 11/24/20 0625 WBC 7.5 RBC 4.05 HCT 32.9* HGB 10.7* PLTCOUNT 305 MCV 81.2 MCH 26.4* MCHC 32.5 MPV 9.1* Recent Labs Component Name 11/24/20 0609 BLOODU Negative WBCU 21-50* NITRITE Negative PROTEINU 1+* Recent Labs Component Name 11/24/20 0625 POTASSIUM 3.0* CALCIUM 8.4 CO2 26 GLUCOSE 81 BUN 13 CREATININE 0.6 No results found for requested labs within last 120 days. Recent Labs Result Component Current Result Alkaline Phosphatase 44 (11/24/2020) ALT 5 (11/24/2020) Anion Gap 10 (11/24/2020) AST 10 (11/24/2020) eGFR >60 (11/24/2020) Attending Note: I have reviewed the chart. I have interviewed and examined the patient. I agree with the documentation and have discussed the anesthesia plan w/ the Resident, ROUGH ROUNDER, or AA. The patient agreed with theplan and accepted the risks and benefits. I attest to documenting, updating or reviewing the patient's medications using all immediate resources on the date of the encounter. This list included ALL known prescriptions, [id number], herbals, and vitamin/mineral/dietary (nutritional) supplements AND contained the medications' name, dosages, frequency, and route of administration. Patient presents today for the above procedure. Will proceed with GA. Additional labs and access asindicated. Nohemi Christine documented in this encounter Plan of Treatment Not on file documented as of this encounter Visit Diagnoses Not on filedocumented in this encounter Care Teams Artificial Fly Tier Relationship Specialty Start Date End Date Rema Austin MD [address] [place] [address] [place] [phone] PCP - General Family Medicine 11/24/20 02/20/21 documented as of this encounter
--- OUTSIDE RECORDS SUMMARY | 2024-09-25 11:47 | XMS_ITS | Encounter Summary ---
Author Organization [facility] Address [address] [place] [address] Care Team Providers Care Equipment Engineering Technician Name Role Phone Rema Austin MD Primary Care Provider Reason for Visit * Reason Comments Referral Pt BIBEMS from OSH f or urology referral. OSH confirms active UTI and kidney stones. Patient reports 8/10 flank pain and abdominal pain. VSS. * Auth/Cert Specialty Diagnoses / Procedures Referred By Norm t Referred To Contact Referral ID Status Reason Start Date Expiration Date Visits Re quested Visits Authorized [id number] 1 1 Encounter Details Date Type Department Care Team (Late st Contact Info) Description 11/24/2020 - 11/26/2020 Surgery [facility] OP [address] [place] [phone] Miller Zamora MD [address] [facility] 2L [place] [phone] Cystoscopy; Right Retrograde Pyelogram; Stent Placement Surgery Details Date/Time Status Location OR Service Patient Class Case Class Case Type Trauma Case? 11/24/2020 4:29 PM Posted [facility] OR OR 07 Urology Inpatient Level 3 Panel 1 Procedure LRB Anes Op Region Wound Class Comments Cystoscopy; Right Retrograde Pyelogram; Stent Placement N/A General NA Surgeon Surgeon Role Service Panel Miller Zamora MD Primary Urology 1 Special Needs Level 3 @ 0950. SRC documented in this encounter Social History Tobacco [...] as of this encounter Discharge Summaries * Olga Knott, NEELAM-STRUCTURAL TEST ENGINEER - 11/26/2020 8:23 AM CDT Physician Discharge Summary [facility] Division of Urologic Surgery Inpatient Discharge Summary Miller Zamora MD Patient ID: Alysha Jolley [id number] 30 year old 1990 Admit date: 11/24/2020 Discharge date and time: No discharge date for patient encounter. Admitting Physician: Miller Zamora MD Discharge Physician: Dr Zamora Present on Admission: None Discharge Diagnoses: Kidney [...] shewas discharged home. Family to transport in [facility]. A surgery order for Cystoscopy, RIGHT retrograde pyelogram, ureteroscopy, laser lithotripsy, stone basket extraction, possible stent exchange was placed. The outpatient channeling machine operator should reachout to the patient with a [...] for input(s): CBC, PSA in the last 88803 hours. Invalid input(s): UA Updated imaging: OSH CT completed. Discharge Exam: General: NAD, well appearing Head/Neck: Normocephalic ENT: Opens eyes CV: Regular rate, regular rhythm Lungs: No increased respiratory effort Abdomen: Soft, non-distended, mildly tender in RLQ Genitourinary: No CVA tenderness Extremities: No edema Neuro: Awake, alert Disposition: home Patient Instructions: Follow-up Information Miller Zamora MD . Specialty: Urology Why: We will call you with your scheduled surgery date to remove your kidney stone. Contact information: Robert CISNEROS [facility] [address] [address] Discharge Instructions We will call you this [...] or the recovery process, please contact [facility] Urology at [phone] during regular business hours. On weekends or in the evening, please contact [facility] Hospitalat [phone] and ask for whoever is road production general manager for Urology. Ureteral Stent Placement WHAT YOU [...] refuse treatment. The above information is an campus aide only. It is not intended as medical advice for individual conditions or treatments. Talk to your doctor, nurse or pharmacist before following any medical regimen to see if it is safe and effective for you. ?? Copyright [employer] 2018 Information is for End User's use only and may not be sold, redistributed or otherwise used for commercial purposes. All illustrations and images included in CareNotes?? are the copyrighted property of [employer] or [employer] Ureteral Stent Placement WHAT YOU NEED TO [...] ask them during your visits. ?? Copyright [employer] 2019 Information is for End User's use only and may not be sold, redistributed or otherwise used for commercial purposes. All illustrations and images included in CareNotes?? are the copyrighted property of [employer] or [employer] The above information is an campus aide only. It is not intended as [...] or the recovery process, please contact [facility] Urology at [phone] during regular business hours. On weekends or in the evening, [facility] [phone] and ask for whoever is road production general manager for Urology. Ureteral Stent Placement WHAT YOU [...] refuse treatment. The above information is an campus aide only. It is not intended as medical advice for individual conditions or treatments. Talk to your doctor, nurse or pharmacist before following any medical regimen to see if it is safe and effective for you. ?? Copyright [employer] 2019 Information is for End User's use only and may not be sold, redistributed or otherwise used for commercial purposes. All illustrations and images included in CareNotes?? are the copyrighted property of [employer] or [employer] Ureteral Stent Placement WHAT YOU NEED TO [...] ask them during your visits. ?? Copyright [employer] 2019 Information is for End User's use only and may not be sold, redistributed or otherwise used for commercial purposes. All illustrations and images included in CareNotes?? are the copyrighted property of [employer] or [employer] The above information is an campus aide only. It is not intended as [...] of care at discharge: Home DaTreion Tita [id number] 30 year old 1990 ?? Admit date: 11/24/2020 Discharge Disposition : Home Basic Needs Assessment (BNA) Score: 5 Transportation at Discharge: Pt arranged Pt discharged prior to BNA. No needs identified Jacklyn Sam RN Case Management [phone] * Olga Knott APRN-CNP - 11/26/2020 9:26 AM CDT patient complaining of right flank pain. oxi prn given. tylenol scheduled. Ok to given ditropan early [facility] * Olga Knott APRN-CNP - 11/26/2020 8:13 AM CDT Urologic Surgery Progress Note Admit Date: 11/24/2020 NAME: Alysha Jolley AGE: [age] year old SEX: female HPI: Alysha Jolley is a 30 year old female [...] (1.626 m) Wt 193 lb (87.5 kg) [id number]% BMI 33.13 kg/m2 Physical Exam: General: NAD, [...] input(s): PROTIME, INR, PTT in the last 13170 hours. No results for input(s): PHART, PO2ART, OEN0MHL, BEART in the last 59925 hours. Lab results smartLinks are not currently available Imaging: CT abdomen, pelvis WO (11/23/2020)- (OSH, CT disc with urology) - Per Dr Michael engle patient has 2 or 3 stacked stones in the distal ureter on the RIGHT side. Mild hydroureter without significant hydronephrosis. 2-3 non- obstructing calcifications noted in bilateral kidneys. Horseshoe kidney confirmed. IUD in place. ?? Assessment: DaTreshasha Jolley is a 30 year old female [...] exchange in roughly 6 weeks. Olga Knott APRN-STRUCTURAL TEST ENGINEER 11/26/2020 8:14 AM * Caroline Regalado RN - 11/25/2020 7:57 AM CDT Pt voiding without diffficulty urine yellow cldy. C/o migraine cardoso and low pelvic pain toradol and dilaudid given prn. Npo after midnight for surgery in am. * Shyam Rodriguez MD - 11/25/2020 7:47 AM CDT Urologic Surgery Progress Note Admit Date: 11/24/2020 NAME: Alysha Jolley AGE: [age] year old SEX: female HPI: Alysha Jolley is a 30 year old female with hx of asthma, anemia, known horseshoe kidney and nephrolithiasis presenting with RIGHT pelvic pain requiring IV pain medication and CT evidence of distal RIGHT ureterolithiasis Interval History: Surgery cancelled overnight due to delays in OR NAEON, AFVSS NPO since midnight but tolerated diet yesterday [...] input(s): PROTIME, INR, PTT in the last 27649 hours. No results for input(s): PHART, PO2ART, AWK3OUN, BEART in the last 46844 hours. Lab results smartLinks are not currently available Imaging: CT abdomen, pelvis WO (11/23/2020)- (OSH, CT disc with urology) - Per my read patient has 2 or 3 stacked stones in the distal ureter on the RIGHT side. Mild hydroureter without significant hydronephrosis. 2-3 non- obstructing calcifications noted in bilateral kidneys. Horseshoe kidney confirmed. IUD in place. ?? Assessment: DaTreshasha Jolley is a 30 year old female [...] seen and discussed this patient with Dr. Zamora. Shyam Rodriguez MD Urology Resident 11/25/2020 7:47 AM documented in this encounter H&P Notes * Shyam Rodriguez MD - 11/24/2020 9:57 AM CDT Urologic Surgery History and Physical Encounter Date: 11/24/2020 Name: Alysha Jolley Age: [age] year old Race: black Sex: female Chief Complaint: RIGHT pelvic pain HPI: Alysha Jolley is a 30 year old female with hx of asthma, anemia, known horseshoe kidney and nephrolithiasis presenting with RIGHT pelvic pain. Patient presented to [place] with this pain and underwent CT scan [...] 11/24/2020 9:57 AM Associated attestation - Miller Zamora MD - 11/24/2020 1:26 PM CDT I [...] ureteral stent placement 11/24/2020 1:23 PM Miller Zamora MD documented in this encounter OR Notes * Operative - Miller aZmora MD - 11/25/2020 4:26 PM CDT NAME: ALYSHA JOLLEY : 1990 AGE: 30 PROC DATE: 11/25/2020 SEX: F SURGEON: Miller Zamora MD ATTENDING PHYSICIAN: Miller Zamora M.D. RESIDENT PHYSICIAN: Shyam Rodriguez. PREOPERATIVE DIAGNOSIS: [...] draped in sterile fashion. We took a 22-Venezuelan cystoscope was inserted into the urethra. Bladder [...] obtained. We then attempted to place a 6-Venezuelan ureteral stents, met resistance. Thus, we then used a 4.8-Venezuelan x26 cm stent and placed this over the wire with some difficulty into the right renal pelvis. We saw good a curl in the renal pelvis and a good curl in the bladder. Bladder was drained. She was taken to recovery in stable condition. I was present for the entire procedure. MD CRISS Becerril/[id number] Doc ID: [id number] Job ID: [id number] * Brief Op Note - Shyam Rodriguez MD - 11/25/2020 4:08 PM CDT Brief Op Note Procedure: CYSTOSCOPY WITH RIGHT RETROGRADE PYELOGRAM; STENT PLACEMENT Patient Name: Alysha Jolley Date of Service: 11/25/2020 Pre-Op Diagnosis: RIGHT nephrolithiasis Post-Op Diagnosis: Same Surgeon(s) and Role: * Miller Zamora MD - Primary * Shyam Rodriguez MD [...] RN - 11/24/2020 3:00 PM CDT Bed: [address] Expected date: Expected time: Means of [...] by Dr. Jordan at 6:46 AM. Briefly, Alysha Jolley is a 30 year old female [...] to urology By signing my name below, I, Lauro Yost, attest that this documentation has been prepared under the direction and in the presence of Dr. Medellin. Signed: Tevin Keane. Date: 11/24/2020. Time:6:46 AM. By signing my name below, I, Lester Pereira, attest that this documentation has been [...] AM CDT ED Attending Note Interval History: DaTreshasha Jolley is a 30 year old female with a pmhx of anemia, asthma, kidney stones and surgicalhisotory of lithotripsy BIBEMS as a transfer from [facility] with complaints of worsening suprapubic pain for [...] acid amplification assay performance was validated by [facility]. This test has been authorized by the [...] mg (0.5 mg Intravenous $ Given 11/24/20 0631) Clinical Impression: 1. Nephrolithiasis 2. Hydronephrosis, unspecified [...] TOTAL) Routine 11/26/2020 4:50 AM CDT Nephrolithiasis CBC W AUTO DIFFERENTIAL Routine 11/25/2020 4:04 [...] CULTURE URINE STAT 11/24/2020 6:[address] CYSTOURETHROSCOPY,UR ETER CATHETER Level 3 Disorder Special Needs Level 3 @ 0950. SRC documented in this encounter Results * FL CYSTO SURGERY (11/26/2020 3:55 PM CDT) Narrative [facility] - 11/30/2020 9:41 PM CDT Fluoroscopy was used for this exam in the OR. Please see the Operative report. Miller Zamora MD FLUOROSCOPY ORDERA BLES [facility] * (ABNORMAL) CBC W AUTO DIFFERENTIAL (11/26/2020 4:50 AM CDT) WBC 7.6 3.5 - 10.5 10? 3 /uL 11/26/2020 5:42 AM CDT [facility] Comment:Confirmed by repeat analysis. RBC 4.05 3.90 - 5.00 10? 6 /uL 11/26/2020 5:42 AM [facility] Hemoglobin 10.6(L) 12.0 - 15.5 g/dL 11/26/2020 5:42 AM [facility] Hematocrit 32.6(L) 35.0 - 45.0 % 11/26/2020 5:42 AM [facility] MCV 80.5(L) 81.0 - 97.0 fL 11/26/2020 5:42 AM [facility] MCH 26.2(L) 28.0 - 34.0 pg 11/26/2020 5:42 AM [facility] MCHC 32.5 32.0 - 36.0 g/dL 11/26/2020 5:42 AM [facility] Platelet Count 315 150 - 400 10? 3 /uL 11/26/2020 5:42 AM [facility] RDW-SD 49.8 36.0 - 50.0 fL 11/26/2020 5:42 AM [facility] RDW-CV 16.9(H) 11.2 - 14.8 % 11/26/2020 5:42 AM [facility] MPV 9.9 9.3 - 12.8 fL 11/26/2020 5:42 AM [facility] nRBC Absolute 0.00 0 10? 3 /uL 11/26/2020 5:42 AM [facility] nRBC Auto 0.0 0 /100 WBC 11/26/2020 5:42 AM [facility] Neutrophils % 74.5(H) 35.0 - 70.0 % 11/26/2020 5:42 AM [facility] Lymphocytes % 13.7(L) 19.7 - 55.1 % 11/26/2020 5:42 AM [facility] Monocytes % 10.9 3.0 - 15.0 % 11/26/2020 5:42 AM [facility] Eosinophils % 0.1 0.0 - 6.0 % 11/26/2020 5:42 AM [facility] Basophil % 0.4 0.0 - 1.5 % 11/26/2020 5:42 AM [facility] Neutrophils Absolute 5.7 1.6 - 7.0 10? 3 /uL 11/26/2020 5:42 AM [facility] Lymphocyte Absolute 1.0 0.8 - 2.9 10? 3 /uL 11/26/2020 5:42 AM [facility] Monocytes Absolute 0.83(H) 0.14 - 0.66 10? 3 /uL 11/26/2020 5:42 AM [facility] Eosinophils Absolute 0.01 0.00 - 0.45 10? 3 /uL 11/26/2020 5:42 AM [facility] Basophils Absolute 0.03 0.00 - 0.06 10? 3 /uL 11/26/2020 5:42 AM [facility] Immature Granulocytes % 0.4 0.0 - 1.0 % 11/26/2020 5:42 AM [facility] Blood BLOOD SPECIMEN / Unknown Lab Venipuncture / Unknown 11/26/2020 4:50 AM CDT 11/26/2020 5:27 AM CDT Yair Medellin MD LAB - HEMATOLOG Y ORDERABLES Performing Organization Address City/State/[facility] Co de Phone Number [facility] [address] [place] [phone], [facility] [phone] * (ABNORMAL) BASIC METABOLIC PANEL (CALCIUM TOTAL) (11/26/2020 4:50 AM CDT) BUN 14 7 - 26 mg/dL 11/26/2020 5:50 AM [facility] Creatinine 0.7 0.6 - 1.2 mg/dL 11/26/2020 5:50 AM [facility] Sodium 140 136 - 145 mmol/L 11/26/2020 5:50 AM [facility] Potassium 3.9 3.5 - 4.5 mmol/L 11/26/2020 5:50 AM [facility] Chloride 105 98 - 107 mmol/L 11/26/2020 5:50 AM [facility] CO2 26 22 - 29 mmol/L 11/26/2020 5:50 AM [facility] Glucose 116(H) 70 - 115 mg/dL 11/26/2020 5:50 AM [facility] Calcium 9.3 8.4 - 10.2 mg/dL 11/26/2020 5:50 AM [facility] Anion Gap 13 8 - 18 11/26/2020 5:50 AM [facility] BUN/Creatinine Ratio 20 7 - 23 11/26/2020 5:50 AM [facility] Osmolality Calculated 291 270 - 300 mOsm/kg 11/26/2020 5:50 AM [facility] eGFR >60 >60 mL/min/1.7 3 m2 11/26/2020 5:50 AM [facility] Blood BLOOD SPECIMEN / Unknown Lab Venipuncture / Unknown 11/26/2020 4:50 AM CDT 11/26/2020 5:27 AM CDT Yair Medellin MD LAB - CHEMISTRY ORDERABLES [facility] [address] [place] [phone], [facility] [phone] * (ABNORMAL) CBC W AUTO DIFFERENTIAL (11/25/2020 4:04 AM CDT) WBC 5.0 3.5 - 10.5 10? 3 /uL 11/25/2020 4:43 AM [facility] RBC 3.97 3.90 - 5.00 10? 6 /uL 11/25/2020 4:43 AM [facility] Hemoglobin 10.3(L) 12.0 - 15.5 g/dL 11/25/2020 4:43 AM [facility] Hematocrit 32.1(L) 35.0 - 45.0 % 11/25/2020 4:43 AM [facility] MCV 80.9(L) 81.0 - 97.0 fL 11/25/2020 4:43 AM [facility] MCH 25.9(L) 28.0 - 34.0 pg 11/25/2020 4:43 AM [facility] MCHC 32.1 32.0 - 36.0 g/dL 11/25/2020 4:43 AM [facility] Platelet Count 291 150 - 400 10? 3 /uL 11/25/2020 4:43 AM [facility] RDW-SD 50.4(H) 36.0 - 50.0 fL 11/25/2020 4:43 AM [facility] RDW-CV 17.0(H) 11.2 - 14.8 % 11/25/2020 4:43 AM [facility] MPV 9.3 9.3 - 12.8 fL 11/25/2020 4:43 AM [facility] nRBC Absolute 0.00 0 10? 3 /uL 11/25/2020 4:43 AM [facility] nRBC Auto 0.0 0 /100 WBC 11/25/2020 4:43 AM [facility] Neutrophils % 46.1 35.0 - 70.0 % 11/25/2020 4:43 AM [facility] Lymphocytes % 34.1 19.7 - 55.1 % 11/25/2020 4:43 AM [facility] Monocytes % 14.8 3.0 - 15.0 % 11/25/2020 4:43 AM [facility] Eosinophils % 3.8 0.0 - 6.0 % 11/25/2020 4:43 AM [facility] Basophil % 0.6 0.0 - 1.5 % 11/25/2020 4:43 AM [facility] Neutrophils Absolute 2.3 1.6 - 7.0 10? 3 /uL 11/25/2020 4:43 AM [facility] Lymphocyte Absolute 1.7 0.8 - 2.9 10? 3 /uL 11/25/2020 4:43 AM [facility] Monocytes Absolute 0.74(H) 0.14 - 0.66 10? 3 /uL 11/25/2020 4:43 AM [facility] Eosinophils Absolute 0.19 0.00 - 0.45 10? 3 /uL 11/25/2020 4:43 AM [facility] Basophils Absolute 0.03 0.00 - 0.06 10? 3 /uL 11/25/2020 4:43 AM [facility] Immature Granulocytes % 0.6 0.0 - 1.0 % 11/25/2020 4:43 AM [facility] Blood BLOOD SPECIMEN / Unknown Lab Venipuncture / Unknown 11/25/2020 4:04 AM CDT 11/25/2020 4:25 AM CDT Yair Medellin MD LAB - HEMATOLOG Y ORDERABLES [facility] [address] [place] [address], [facility] [phone] * (ABNORMAL) BASIC METABOLIC PANEL (CALCIUM TOTAL) (11/25/2020 4:04 AM CDT) BUN 13 7 - 26 mg/dL 11/25/2020 4:52 AM [facility] Creatinine 0.7 0.6 - 1.2 mg/dL 11/25/2020 4:52 AM [facility] Sodium 140 136 - 145 mmol/L 11/25/2020 4:52 AM [facility] Potassium 3.8 3.5 - 4.5 mmol/L 11/25/2020 4:52 AM [facility] Chloride 108(H) 98 - 107 mmol/L 11/25/2020 4:52 AM [facility] CO2 27 22 - 29 mmol/L 11/25/2020 4:52 AM [facility] Glucose 102 70 - 115 mg/dL 11/25/2020 4:52 AM [facility] Calcium 8.2(L) 8.4 - 10.2 mg/dL 11/25/2020 4:52 AM [facility] Anion Gap 9 8 - 18 11/25/2020 4:52 AM [facility] BUN/Creatinine Ratio 19 7 - 23 11/25/2020 4:52 AM [facility] Osmolality Calculated 290 270 - 300 mOsm/kg 11/25/2020 4:52 AM [facility] eGFR >60 >60 mL/min/1.7 3 m2 11/25/2020 4:52 AM [facility] Blood BLOOD SPECIMEN / Unknown Lab Venipuncture / Unknown 11/25/2020 4:04 AM CDT 11/25/2020 4:25 AM CDT Yair Medellin MD LAB - CHEMISTRY ORDERABLES [facility] [address] [place] [phone], [facility] [phone] * (ABNORMAL) COMPREHENSIVE METABOLIC PANEL (11/24/2020 6:25 AM CDT) BUN 13 7 - 26 mg/dL 11/24/2020 6:57 AM [facility] Creatinine 0.6 0.6 - 1.2 mg/dL 11/24/2020 6:57 AM [facility] Sodium 139 136 - 145 mmol/L 11/24/2020 6:57 AM [facility] Potassium 3.0(L) 3.5 - 4.5 mmol/L 11/24/2020 6:57 AM [facility] Chloride 106 98 - 107 mmol/L 11/24/2020 6:57 AM [facility] CO2 26 22 - 29 mmol/L 11/24/2020 6:57 AM [facility] Glucose 81 70 - 115 mg/dL 11/24/2020 6:57 AM [facility] Calcium 8.4 8.4 - 10.2 mg/dL 11/24/2020 6:57 AM [facility] Protein Total 6.2 6.0 - 8.3 g/dL 11/24/2020 6:57 AM [facility] Albumin 3.4 3.4 - 5.0 g/dL 11/24/2020 6:57 AM [facility] Bilirubin Total 0.4 0.2 - 1.2 mg/dL 11/24/2020 6:57 AM [facility] Alkaline Phosphatase 44 40 - 150 Units/L 11/24/2020 6:57 AM [facility] ALT 5 0 - 55 Units/L 11/24/2020 6:57 AM [facility] AST 10 5 - 34 Units/L 11/24/2020 6:57 AM [facility] Anion Gap 10 8 - 18 11/24/2020 6:57 AM [facility] BUN/Creatinine Ratio 22 7 - 23 11/24/2020 6:57 AM [facility] Osmolality Calculated 287 270 - 300 mOsm/kg 11/24/2020 6:57 AM [facility] Albumin/Globulin Ratio 1.2 1.1 - 2.3 11/24/2020 6:57 AM [facility] eGFR >60 >60 mL/min/1.7 3 m2 11/24/2020 6:57 AM [facility] Blood BLOOD SPECIMEN / Unknown Venipuncture / Unknown 11/24/2020 6:25 AM CDT 11/24/2020 6:32 AM CDT Bal Sanchez PA-C LAB - CHEM ISTRY ORDERABLES [facility] [address] [place] [phone], [facility] [phone] * (ABNORMAL) CBC W AUTO DIFFERENTIAL (11/24/2020 6:25 AM CDT) WBC 7.5 3.5 - 10.5 10? 3 /uL 11/24/2020 6:38 AM [facility] RBC 4.05 3.90 - 5.00 10? 6 /uL 11/24/2020 6:38 AM [facility] Hemoglobin 10.7(L) 12.0 - 15.5 g/dL 11/24/2020 6:38 AM [facility] Hematocrit 32.9(L) 35.0 - 45.0 % 11/24/2020 6:38 AM [facility] MCV 81.2 81.0 - 97.0 fL 11/24/2020 6:38 AM [facility] MCH 26.4(L) 28.0 - 34.0 pg 11/24/2020 6:38 AM [facility] MCHC 32.5 32.0 - 36.0 g/dL 11/24/2020 6:38 AM [facility] Platelet Count 305 150 - 400 10? 3 /uL 11/24/2020 6:38 AM [facility] RDW-SD 50.4(H) 36.0 - 50.0 fL 11/24/2020 6:38 AM [facility] RDW-CV 17.1(H) 11.2 - 14.8 % 11/24/2020 6:38 AM [facility] MPV 9.1(L) 9.3 - 12.8 fL 11/24/2020 6:38 AM [facility] nRBC Absolute 0.00 0 10? 3 /uL 11/24/2020 6:38 AM [facility] nRBC Auto 0.0 0 /100 WBC 11/24/2020 6:38 AM [facility] Neutrophils % 46.9 35.0 - 70.0 % 11/24/2020 6:38 AM [facility] Lymphocytes % 35.4 19.7 - 55.1 % 11/24/2020 6:38 AM [facility] Monocytes % 12.1 3.0 - 15.0 % 11/24/2020 6:38 AM [facility] Eosinophils % 4.2 0.0 - 6.0 % 11/24/2020 6:38 AM [facility] Basophil % 0.9 0.0 - 1.5 % 11/24/2020 6:38 AM [facility] Neutrophils Absolute 3.5 1.6 - 7.0 10? 3 /uL 11/24/2020 6:38 AM [facility] Lymphocyte Absolute 2.6 0.8 - 2.9 10? 3 /uL 11/24/2020 6:38 AM [facility] Monocytes Absolute 0.90(H) 0.14 - 0.66 10? 3 /uL 11/24/2020 6:38 AM [facility] Eosinophils Absolute 0.31 0.00 - 0.45 10? 3 /uL 11/24/2020 6:38 AM [facility] Basophils Absolute 0.07(H) 0.00 - 0.06 10? 3 /uL 11/24/2020 6:38 AM CDT [facility] Immature Granulocytes % 0.5 0.0 - 1.0 % 11/24/2020 6:38 AM CDT [facility] Blood BLOOD SPECIMEN / Unknown Venipuncture / Unknown 11/24/2020 6:25 AM CDT 11/24/2020 6:32 AM CDT Bal Sanchez PA-C LAB - LAURA TOLOGY ORDERABLES [facility] [address] [place] [address], [facility] [phone] * SARS-COV-2 (COVID-19)+INFLU A+B PCR RAPID (11/24/2020 6:22 AM CDT) COVID-19 PCR Not detected Not detected 11/25/19 7:00 AM CDT [facility] Influenza A Rapid JOSHUA Not Detected Not Detected 11/24/2020 7:00 AM CDT [facility] Influenza B JOSHUA Rapid Not Detected Not Detected 11/24/2020 7:00 AM CDT [facility] Microbiology SPECIMEN FROM NASOPHARYNGEAL STRUCTURE / Unknown Collection / Unknown 11/24/2020 6:22 AM CDT 11/24/2020 6:32 AM CDT Narrative [facility] - 11/24/2020 7:00 AM CDT Influenza [...] acid amplification assay performance was validated by [facility]. This test has been authorized by the [...] - MICR OBIOLOGY ORDERABLES Performing Organization Address City/[facility]/ZIP Co de Phone Number [facility] [address] [place] [address], [facility] [phone] * CULTURE URINE (11/24/2020 6:09 AM CDT) Culture Urine >100,000 CFU/mL urogenital marco CHRYSTAL 11/25/2020 1:43 PM CDT [facility] Urine URINE SPECIMEN OBTAINED BY CLEAN CATCH PROCEDURE / Unknown Collection / Unknown 11/24/2020 6:09 AM CDT 11/24/2020 6:13 AM CDT Yair Medellin MD LAB - MICROBIOL OGY ORDERABLES [facility] [address] [place] [address], [facility] [phone] * (ABNORMAL) URINALYSIS W/MICROSCOPIC NO CULTURE (11/24/2020 6:09 AM CDT) Color UA Yellow Straw, Yellow, Colorless 11/24/2020 6:27 AM CDT [facility] Clarity UA Cloudy(A) Clear, Slt Cloudy 11/24/2020 6:27 AM CDT [facility] Specific [place] UA 1.024 1.005 - 1.030 11/24/2020 6:27 AM CDT [facility] pH UA 6.0 5.0 - 8.0 pH 11/24/2020 6:27 AM [facility] Protein UA 1+(A) Negative mg/dL 11/24/2020 6:27 AM [facility] Glucose UA Negative Negative mg/dL 11/24/2020 6:27 AM [facility] Ketone UA 1+(A) Negative mg/dL 11/24/2020 6:27 AM [facility] Bilirubin UA Negative Negative mg/dL 11/24/2020 6:27 AM [facility] Blood UA Negative Negative 11/24/2020 6:27 AM [facility] Nitrite UA Negative Negative 11/24/2020 6:27 AM [facility] Leukocyte Esterase 3+(A) Negative 11/24/2020 6:27 AM [facility] Urobilinogen UA 2.0(A) Negative mg/dL 11/24/2020 6:27 AM [facility] RBC UA 11-20(A) None Seen, 0-2, 3-5 /HPF 11/24/2020 6:27 AM [facility] WBC UA 21-50(A) None Seen, 0-5 /HPF 11/24/2020 6:27 AM [facility] Bacteria UA 1+(A) None, Trace /HPF 11/24/2020 6:27 AM [facility] Squamous Epithelial Cells UA >20(A) None Seen, 0-2 /HPF 11/24/2020 6:27 AM [facility] Mucus UA 4+(A) None, 1+ /LPF 11/24/2020 6:27 AM [facility] Urine URINE SPECIMEN OBTAINED BY CLEAN CATCH PROCEDURE / Unknown Collection / Unknown 11/24/2020 6:09 AM CDT 11/24/2020 6:13 AM [facility] - 11/24/2020 6:27 AM [facility] Yair Medellin MD LAB - URINALYSI S ORDERABLES [facility] [address] [place] [address], [facility] [phone] * HCG URINE QUALITATIVE (11/24/2020 6:09 AM CDT) Test Urine Negative Negative 11/24/2020 6:33 AM CDT [facility] Urine URINE / Unknown Collection / Unknown 11/24/2020 6:09 AM CDT 11/24/2020 6:13 AM CDT Bal Sanchez PA-C LAB - URIN ALYSIS ORDERABLES [facility] [address] [place] [address], [facility] [phone] documented in this encounter Visit Diagnoses Diagnosis Nephrolithiasis- Primary Calculus of kidney Nephrolithiasis Calculus of kidney Hydronephrosis, unspecified hydronephrosis type Urinary tract infection with hematuria, site unspecified Hydronephrosis with renal and ureteral calculous obstruction Disorder Other ill-defined conditions documented in this encounter Administered Medications Inactive [...] 11/24/20 at 2000, Until 11/26/20 at 0909 $ New Bag/Syringe 11/26/2020 8:49 [...] Upset, Starting on 11/24/20 at 1126, Until Thu11/26/20 at 1241, Shake [...] RN)2231 ($ New Bag/Syringe - Provider: Caroline Lauenstein, RN)2335 (Stopped - Provider: Caroline Regalado RN) [...] RN) 0842 ($ Given - Provider: Юлия Gale RN)2003 ($ Given - Provider: Caroline Regalado, RAZIA) 0846 ($ Given - Provider: Logan De La Rosa RN) HYDROmorphone (DILAUDID) injection 0.5 mg (COMPLETED) 0.5 mg, Intravenous, NOW, 1 dose, On 11/24/20 at 0615 0631 ($ Given - Provider: Nadiya Owens, RAZIA) HYDROmorphone (DILAUDID) injection 0.5 mg (COMPLETED) 0.5 mg, Intravenous, NOW, 1 dose, On 11/24/20 at 0945 0955 ($ Given - Provider: Nadiya Owens, RAZIA) potassium chloride ER (KLOR-CON M) tablet 40 mEq (COMPLETED) 40 mEq, Oral, ONCE, 1 dose, On 11/24/20 at 2015, Do not crush or chew. 2026 ($ Given - Provider: Caroline Regalado, RAZIA) tamsulosin (FLOMAX) capsule 0.4 mg 0.4 mg, Oral, DAILY, 365 doses, First dose on 11/24/20 at 1030, Last dose on 11/23/21 at 0900, At the same time every day after a meal. Do not crush, chew 1237 ($ Given - Provider: Myron Lizama RN) 0842 ($ Given - Provider: Юлия Gale, RAZIA) 0846 ($ Given - Provider: Logan De La Rosa, RN) Continuous Medication Order 11/24/2020 11/25/2020 11/26/2020 0.9% NaCl with potassium chloride 20 mEq infusion (CANCELED) at 100 mL/hr, Intravenous, CONTINUOUS, Starting on 11/24/20 at 2000, Until 11/26/20 at 0909 2225 ($ New Bag/Syringe - Provider: Caroline Regalado RN)2229 (Current Rate - Provider: Caroline Regalado RN) 0611 (Current Rate - Provider: Caroline Regalado, [...] from the line or to verify patency. 1951 ($ Given - Provider: Caroline Regalado RN) [...] Gale RN)1720 ($ Given - Provider: Юлия Gale, RAZIA)2002 ($ Given - Provider: Caroline Regalado, RAZIA) [...] 11/24/20 at 1020, Until 11/26/20 at 1241 documented in this encounter Care Teams Equipment Engineering Technician Relationship Specialty Start Date End Date Rema Austin MD [address] [place] [address] [place] [address] PCP - General Family Medicine 11/24/20 02/20/21 documented as of this encounter
--- OUTSIDE RECORDS SUMMARY | 2024-09-25 11:47 | XMS_ITS | Encounter Summary ---
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 Name Role Phone Unavailable Primary Care Provider Unavailabl e Reason for Visit * Reason Comments Pain Leg left leg pain 2 cari hs/seen here on 02/02 for chest pain and left leg pain/negative cardiac workup but told to make appt for doppler of left leg d/t elevated d-dimer/returns now for the test Encounter Details Date Type Department Care Team (Late st Contact Info) Description 03/15/2019 9:53 AM CDT - 03/15/2019 11:38 AM CDT Emergency ER at [facility] [address] [place] [id number] Chronic pain of left knee Discharge Disposition: Home or Self Care Social History Tobacco Use Types Packs/Day Years Used Date Smoking Tobacco: Former Cigarettes Q uit: 02/13/2019 Smokeless Tobacco: Never Alcohol Use Standard Drinks/Week Comments Yes 0 (1 standard drink = 0.6 oz pur e alcohol) occ Sex and Gender Information Value Date Recorded Sex Assigned at Not on file Gender Identity Not on file Sexual Orientation Not on file documented as of this encounter Last Filed Vital Signs Vital Sign Reading Time Taken Comments Blood Pressure 129/76 03/15/2019 11:38 AM CDT Pulse 87 03/15/2019 11:38 AM CDT Temperature 36.8 ??C (98.2 ??F) 03/15/2019 9:44 AM CD T Respiratory Rate 18 03/15/2019 11:38 AM CDT Oxygen Saturation 100% 03/15/2019 11:38 AM CDT Inhaled Oxygen Concentration - - Weight 81.6 kg (180 lb) 03/15/2019 9:44 AM CDT Height 162.6 cm (5' 4 ) 03/15/2019 9:44 AM CDT Body Mass Index 30.9 03/15/2019 9:44 AM CDT documented in this encounter Functional [...] this encounter Discharge Instructions * Discharge Instructions* Alina Sevilla, NEELAM-UNIT MANAGER RN - 03/15/2019 10:54 AM CDT Images from the original note were not included. Knee Pain WHAT YOU NEED TO KNOW: What do I need to know about knee pain? Knee pain may start suddenly, or it may be a long-term problem. You may have pain on the side, front, or back of your knee. You may have knee stiffness and swelling. You may hear popping sounds or feel like your knee is giving way or locking up as you walk. You may feel pain when you sit, stand, walk, or climb up and down stairs. What increases my risk for knee pain? ?? Obesity ?? A strain or tear in ligaments or tendons ?? A leg fracture or knee dislocation ?? Overuse of your knee ?? Osteoarthritis, rheumatoid arthritis, or gout ?? An infection, tumor, or cyst in your knee ?? Shoes that are not supportive, or training on a hard surface ?? Sports that involve jumping or pivoting on your knee How is the cause of knee pain diagnosed? Your healthcare provider will examine your knee and ask about your symptoms. Tell your provider when the pain started and what you were doing at the time. Describe the pain, such as sharp, throbbing, or achy. Tell your provider about any knee injury or surgery you had. You may need any of the following: ?? MRI, CT, or ultrasound pictures may show an injury, fracture, or tumor. ?? Blood tests may be used to check the level of inflammation in your blood. The tests may also show signs of infection. ?? Arthroscopy is a procedure to look inside your knee joint with an arthroscope. An arthroscope mi flexible tube with a light and camera on the end. A knee arthroscopy is usually done to check fordisease or damage inside your knee. These problems may be fixed during the procedure. How is knee pain treated? Treatment will depend on the cause of your pain. You may need any of the following: ?? NSAIDs help decrease swelling and pain or fever. This medicine is available with or without a doctor's order. NSAIDs can cause stomach bleeding or kidney problems in certain people. If you take blood thinner medicine, always ask your healthcare provider if NSAIDs are safe for you. Always read the medicine label and follow directions. ?? Acetaminophen decreases pain and fever. It [...] how to prevent or treat constipation. ?? Steroid injections may be given into your knee. Steroids reduce inflammation and pain. ?? Surgery may be used for some injuries, such as to repair a torn ACL. What can I do to manage my symptoms? ?? Rest your knee so it can heal. Limit activities that increase your pain. Do low-impact exercises, such as walking or swimming. ?? Apply ice to help reduce swelling and pain. Use an ice pack, or put crushed ice in a plastic bag. Cover it with a towel before you apply it to your knee. Apply ice for 15 to 20 minutes every hour,or as directed. ?? Apply compression to help reduce swelling. Use a brace or bandage only as directed. ?? Elevate your knee to help decrease pain and swelling. Elevate your knee while you are sitting orlying down. Prop your leg on pillows to keep your knee above the level of your heart. ?? Prevent your knee from moving as directed. Your healthcare provider may put on a cast or splint.You may need to wear a leg brace to stabilize your knee. A leg brace can be adjusted to increase your range of motion as your knee heals. What can I do to prevent knee pain? ?? Maintain a healthy weight. Extra weight increases your risk for knee pain. Ask your healthcare provider how much you should weigh. He or she can help you create a safe weight loss plan if you needto lose weight. ?? Exercise or train properly. Use the correct equipment for sports. Wear shoes that provide good support. Check your posture often as you exercise, play sports, or train for an event. This can help prevent stress and strain on your knees. Rest between sessions so you do not overwork your knees. When should I seek immediate care? ?? Your pain is worse, even after treatment. ?? You cannot bend or straighten your leg completely. ?? The swelling around your knee does not go down even with treatment. ?? Your knee is painful and hot to the touch. When should I contact my healthcare provider? ?? You have questions or concerns about your condition or care. CARE AGREEMENT: You have the right to help plan your care. Learn about your health condition and how it may be treated. Discuss treatment options with your healthcare providers to decide what care you want to receive. You always have the right to refuse treatment. The above information is an physical science aide only. It is not intended as medical advice for individual conditions or treatments. Talk to your doctor, nurse or pharmacist before following any medical regimen to see if it is safe and effective for you. ?? Copyright [employer] 2019 Information is for End User's use only and may not be sold, redistributed or otherwise used for commercial purposes. All illustrations and images included in CareNotes?? are the copyrighted property of [employer] or [employer] documented in this encounter Medications at Time of Discharge Medication Sig Dispensed Refills Start Date End Date ibuprofen (MOTRIN) 600 MG tablet Take 1 tablet by mouth every 6 hours as needed for Pain 30 tablet 03/15/2019 albuterol HFA (PROVENTIL;VENTOLIN;PRO AIR) 108 (90 BASE) MCG/ACT inhaler Inhale 2 Puffs by mouth every 6 hours as needed Reported on 10/23/2016 02/21/2021 pantoprazole EC (PROTONIX) 40 MG tablet Take 1 tablet by mouth once daily 30 tablet 02/02/2019 12/31/2020 sucralfate (CARAFATE) 1 GM tablet Take 1 tablet by mouth 4 times daily - before meals & nightly 30 tablet 02/02/2019 12/31/2020 documented as of this encounter ED Notes * Hiwot Infante RN - 03/15/2019 11:38 AM CDT Alina to bedside to discuss discharge instructions, medications and follow up care reviewed, pt verbalized understanding. * Hiwot Infante RN - 03/15/2019 10:26 AM CDT Pt c/o pain in posterior L knee radiating into calf x1 month with subjective swelling, pt denies any injury or trauma. Pt reports she was seen last month and was told to follow up with her PCP for a doppler of her L lower leg but has not yet done so. Pt reports the pain was so bad yesterday I feltlike my leg was going to give out . Pt resting in recliner with VSS, will continue to monitor. * Alina Sevilla APRN-CNP - 03/15/2019 10:07 AM CDT Provider contact with the patient: 03/15/2019 10:[id number] [facility] EMERGENCY DEPARTMENT History Chief Complaint Patient presents with ??? Pain Leg left leg pain 2 months/seen here on 02/02 for chest pain and left leg pain/negative cardiac workup but told to make appt for doppler of left leg d/t elevated d-dimer/returns now for the test Chief complaint narrative was entered by triage nurse, not by physician. HPI Comments: 10:07 AM Jumana Rivers, a 29 year old female with a past medical history that includes--asthma, migraines, anemia, STD--presents to the ER c/o Leg pain. Pt states that she has been having pain in her L leg for the last two months, stating that she was evaluated in the ED on 02/02 for chest pain with a negative cardiac workup but told to make an appt for a doppler of her L leg due to elevated blood test. Pt notes that her bilateral ankles swell occasionally as an associated symptom. Pt has not been taking medications at home for her symptoms. Pt has no known allergies. Pt denies any fever, chills, nausea, vomiting, diarrhea, CP, SOB or other associated symptoms. Pt has no other modifying factors or complaints at this time. PCP: No primary care provider on file. Past Medical History: Diagnosis Date ??? Asthma remote ??? Chlamydia this ??? GBS (group B streptococcus) UTI complicating 08/07/2014 ??? History of anemia ??? History of sexually transmitted disease ??? Kidney stones ??? Migraines ??? depression ??? Trichomonas Treated this Past Surgical History: Procedure Laterality Date ??? Lithotripsy ??? NEGATIVE SURGICAL HISTORY Family History Problem Relation Age of Onset ??? Hypertension Maternal Grandmother ??? Hypertension Mother Social History Social History ??? Marital status: Single Spouse name: N/A ??? Number of children: N/A ??? Years of education: N/A Occupational History ??? Not on file. Social History Main Topics ??? Smoking status: Former Smoker Packs/day: 1.00 Types: Cigarettes Quit date: 02/13/2019 ??? Smokeless tobacco: Never Used ??? Alcohol use 0.0 oz/week 0 Standard drinks or equivalent per week Comment: occ ??? Drug use: Yes Special: Marijuana ??? Sexual activity: Not on file Other Topics Concern ??? Not on file Social History Narrative Review of Systems Review of Systems Constitutional: Negative for chills and fever. HENT: Negative for congestion. Eyes: Negative. Respiratory: Negative for cough, sputum production, shortness of breath and wheezing. Cardiovascular: Negative for chest pain. Gastrointestinal: Negative for abdominal pain, nausea and vomiting. Genitourinary: Negative for dysuria. Musculoskeletal: Positive for myalgias. Negative for back pain, falls and neck pain. L leg. Skin: Negative for rash. Neurological: Negative for dizziness, loss of consciousness and headaches. All other systems reviewed and are negative. Physical Exam BP 129/76 Pulse 87 Temp 98.2 ??F (36.8 ??C) Resp 18 Ht 1.626 m (5' 4 ) Wt 81.6 kg (180 lb) LMP 02/25/2019 SpO2 100% BMI 30.9 kg/m2 Physical Exam Constitutional: She is oriented to person, place, and time. She appears well- developed and well-nourished. No distress. Exam is limited by the patient being fully dressed and in an upright position. Non-toxic appearance. Calm and pleasant. HENT: Mouth/Throat: Mucous membranes are normal. Eyes: Right eye exhibits no discharge. Left eye exhibits no discharge. Neck: Trachea normal, normal range of motion, full passive range of motion without pain and phonation normal. No tracheal deviation present. Cardiovascular: Normal rate. Pulmonary/Chest: Effort normal. Musculoskeletal: Normal range of motion. L knee grossly non tender. L calf and ankle no swelling and grossly non tender. Ambulates quickly with a steady gait. Neurological: She is alert and oriented to person, place, and time. Skin: She is not diaphoretic. No pallor. Psychiatric: She has a normal mood and affect. Her behavior is normal. Nursing note and vitals reviewed. Medications Current Outpatient Prescriptions Medication Sig Dispense Refill ??? albuterol HFA [...] taking: Reported on 03/15/2019) 30 tablet 0 Procedures Procedures ECG Interpretation ECG Interpretation Lab Interpretation Oxygen Saturation Interpretation The oxygen saturation level is: 100%. The patient was on Room Air for the saturation measurement. Measurement frequency: Spot Check. Oxygen saturation interpretation is Normal. Intervention(s) used: None. Hospital Encounter on 03/15/19 D-DIMER Result Value Ref Range D-Dimer 0.46 0.17 - 0.5 mg/L FEU Progress Notes 10:11 AM: Initial encounter and evaluation conducted at this time. Ordered D-dimer Motrin 600 mg for symptom management. 10:55 AM Rechecked pt -patient resting comfortably and feeling better. I discussed the results of diagnosticstudies, my clinical impression, and the plan for further treatment with the patient. Patient agrees with plan and discharge at this time, all questions addressed. Pt is medically stable for discharge at this time. I have given the patient instructions regarding her diagnosis, expectations, follow up, and return precautions. I explained to the patient that emergent conditions may arise and to return to the ER for new, worsening, or any persistent conditions. I've explained the importance of following up with her Primary Care Physician-(or the referral physician listed below) as instructed. The patient verbalized understanding of the discharge instructions. ED Course ED Course Value Comment By Time SpO2: 100 % Alina Lemon [facility] 03/15 104 BP: 112/67 Alina Lemon [facility] 03/15 1045 Resp: 18 Normal Alina Sevilla [facility] 03/15 1045 Pulse: 85 Alina Lemon [facility] 03/15 1045 Temp: 98.2 ??F (36.8 ??C) Alina Lemon [facility] 03/15 1045 D-Dimer: 0.46 Alina Lemon [facility] 03/15 1053 Medical Decision Making I have reviewed the: Previous Chart, Nursing Notes, Vitals. I have interpreted the following results: Labs, Oxygen Saturation. Orders Placed This Encounter ??? D-DIMER ??? ibuprofen (MOTRIN) 600 MG tablet Clinical Impression Final diagnoses: Chronic pain of left knee ED Disposition ED Disposition Condition Comment Discharge RETURN TO THE EMERGENCY ROOM IF YOU HAVE NEW OR WORSENING OF SYMPTOMS. FOLLOWING UP WITH YOUR PRIMARY CARE DOCTOR OR ESTABLISHING A PRIMARY CARE DOCTOR IS ESSENTIAL TO YOUR HEALTH AFTER YOUR EMERGENCY ROOM VISIT. Knee injury: 1. Elevate, yaya wrap, ice and rest. 2. Yaya wrap for support and compression intermittently. 3. Continue range of motion and lower leg movement to decrease swelling. 4. Continue pain medication as prescribed. 5. Call Orthopedist for a follow up appointment. If you need c rutches, do not rest the crutches in the armpits. The crutches should be well below the arm pits at the nipple line. New Medications: Discharge Medication List as of 03/15/2019 11:31 AM START taking these medications Details ibuprofen (MOTRIN) 600 MG tablet Disp-30 tablet, R-0, Take 1 tablet by mouth every 6 hours as needed for Pain, Print I have advised the patient to follow-up with: [facility] [address] [address] [phone] Call in 1 day Disposition: Discharged Follow-up Information Follow-up With Details Why Contact Info [facility] Call in 1 day [address] [phone] User Date/Time Alina Sevilla APRN-CNP e Mar 15, 2019 10:54 AM Scribe Signature and Attestation By signing my name below, I, Car Dennis, attest that this documentation has been prepared under the direction and in the presence of Alina Carlos Electronically Signed: Tevin Diego. 03/15/2019. Time 3:00 PM Provider Signature and Attestation I, Alina Carlos, personally performed the services described in this documentation. All medical record entries made by the scribe were at my direction and in my presence. I have reviewed the chart and agree that the record reflects my personal performance and is accurate and complete. Alina Sevilla APRN, CNP ([place]) , 03/15/2019. Time 3:00 PM documented in this encounter Plan of Treatment Not on file documented as of this encounter Procedures Procedure Name Priority Date/Time Associated Diagnosis Comments D-DIMER STAT 03/15/2019 10:34 AM CDT documented in this encounter Results * D-DIMER (03/15/2019 10:34 AM CDT) D-Dimer 0.46 0.17 - 0.5 mg/L FEU 03/15/2019 10:51 AM CDT [facility] Blood BLOOD SPECIMEN / Unknown Venipuncture / Unknown 03/15/2019 10:34 AM CDT 03/15/2019 10:40 AM CDT Narrative [facility] - 03/15/2019 10:51 AM [...] clinical presentation, and other findings. Alina Sevilla ASSOCIATE EMBALMER/FUNERAL DIRECTOR-UNIT MANAGER RN LAB - COAGUL ATION ORDERABLES [facility] [address] [place] [address] documented in this encounter Visit Diagnoses Diagnosis Chronic pain of left knee Pain in joint, lower leg documented in this encounter
--- OUTSIDE RECORDS SUMMARY | 2024-09-25 11:47 | XMS_ITS | Encounter Summary ---
Author Organization [facility] Address [address] [place] [address] Care Team Providers Care Flag Decorator Name Role Phone [facility], [facility] Primary Care Provider Unavailable Reason for Visit * Reason Comments Drainage Eye L eye draining clear fluid, irritated and swollen x 2 days Encounter Details Date Type Department Care Team (Late st Contact Info) Description 09/02/2017 3:40 PM MEDICAL ASSISTANT - 09/02/2017 5:03 PM MEDICAL ASSISTANT Emergency [facility] [address] [place] [address] [id number] Acute bacterial conjunctivitis of left eye; Abrasion of left cornea, initial encounter Discharge Disposition: Home or Self Care Social History Tobacco Use Types Packs/Day Years Used Date Smoking Tobacco: Every Day Cigarettes Smokeless Tobacco: Never Alcohol Use Standard Drinks/Week Comments No 0 (1 standard drink = 0.6 oz pur e alcohol) rarely Sex and Gender Information Value Date Recorded Sex Assigned at Not on file Gender Identity Not on file Sexual Orientation Not on file documented as of this encounter Last Filed Vital Signs Vital Sign Reading Time Taken Comments Blood Pressure 112/72 09/02/2017 2:35 PM MEDICAL ASSISTANT Pulse 89 09/02/2017 2:35 PM MEDICAL ASSISTANT Temperature 37 ??C (98.6 ??F) 09/02/2017 2:35 PM MEDICAL ASSISTANT Respiratory Rate 18 09/02/2017 2:35 PM MEDICAL ASSISTANT Oxygen Saturation 100% 09/02/2017 2:35 PM MEDICAL ASSISTANT Inhaled Oxygen Concentration - - Weight 86.2 kg (190 lb) 09/02/2017 2:33 PM MEDICAL ASSISTANT Height 162.6 cm (5' 4 ) 09/02/2017 2:33 PM MEDICAL ASSISTANT Body Mass Index 32.61 09/02/2017 2:33 PM MEDICAL ASSISTANT documented in this encounter Functional Status Functional [...] this encounter Discharge Instructions * Discharge Instructions* Mariah Casas, PAPER CAP MACHINE OPERATOR-ROLLING MACHINE OPERATOR - 09/02/2017 4:42 PM MEDICAL ASSISTANT Images from the original note were not included. Conjunctivitis WHAT YOU NEED TO KNOW: Conjunctivitis, or pink eye, is inflammation of your conjunctiva. The conjunctiva is a thin tissue that covers the front of your eye and the back of your eyelids. The conjunctiva helps protect your eye and keep it moist. Conjunctivitis may be caused by bacteria, allergies, or a virus. If your conjun ctivitis is caused by bacteria, it may get better on its own in about 7 days. Viral conjunctivitis can last up to 3 weeks. DISCHARGE INSTRUCTIONS: Return to the emergency department if: ?? You have worsening eye pain. ?? The swelling in your eye gets worse, even after treatment. ?? Your vision suddenly becomes worse or you cannot see at all. Contact your healthcare provider if: ?? You develop a fever and ear pain. ?? You have tiny bumps or spots of blood on your eye. ?? You have questions or concerns about your condition or care. Manage your symptoms: ?? Apply a cool compress. Wet a washcloth with cold water and place it on your eye. This will help decrease itching and irritation. ?? Do not wear contact lenses. They can irritate your eye. Throw away the pair you are using and ask when you can wear them again. Use a new pair of lenses when your healthcare provider says it is okay. ?? Avoid irritants. Stay away from smoke filled areas. Shield your eyes from wind and sun. ?? Flush your eye. You may need to flush your eye with saline to help decrease your symptoms. Ask for more information on how to flush your eye. Medicines: Treatment depends on what is causing your conjunctivitis. You may be given any of the following: ?? Allergy medicine helps decrease itchy, red, swollen eyes caused by allergies. It may be given asa pill, eye drops, or nasal spray. ?? Antibiotics may be needed if your conjunctivitis is caused by bacteria. This medicine may be given as a pill, eye drops, or eye ointment. ?? Take your medicine as directed. Contact [...] with you in case of an emergency. Prevent the spread of conjunctivitis: ?? Wash your hands with soap and water often. Wash your hands before and after you touch your eyes.Also wash your hands before you prepare or eat food and after you use the bathroom or change a diaper. ?? Avoid allergens. Try to avoid the things that cause your allergies, such as pets, dust, or grass. ?? Avoid contact with others. Do not share towels or washcloths. Try to stay away from others as much as possible. Ask when you can return to work or school. ?? Throw away eye makeup. The bacteria that caused your conjunctivitis can stay in eye makeup. Throw away mascara and other eye makeup. ?? 2017 [employer] Information is for End User's use only and may not be sold, redistributed or otherwise used for commercial purposes. All illustrations and images included in CareNotes?? are the copyrighted property of [employer] or [employer]. The above information is an educational coordinator only. It is not intended as medical advice for individual conditions or treatments. Talk to your doctor, nurse or pharmacist before following any medical regimen to see if it is safe and effective for you. Corneal Abrasion AUTOMOTIVE MACHINIST: A corneal abrasion is a scratch on the cornea of your eye. The cornea is the clear layer that covers the front of your eye. A small scratch may heal in 1 to 2 days. Deeper or larger scratches may take longer to heal. Common signs and symptoms include the following: ?? Pain ?? More tears than usual ?? Redness ?? A feeling that you have something in your eye ?? Blurred vision ?? Sensitivity to bright light ?? Headache Contact your healthcare provider if: ?? Your eye pain or vision gets worse. ?? You have yellow or green drainage from your eye. ?? You have questions or concerns about your condition or care. Treatment for a corneal abrasion may include antibiotic eyedrops or ointment to help prevent an eyeinfection. You may also be given eye drops to decrease pain. Do not rub your eyes. Do not wear contact lenses until your healthcare provider tells you that it is okay. Wear sunglasses in bright lightuntil your eyes feel better. Prevent corneal abrasions: ?? Remove your contact lenses if your eyes feel dry or irritated. ?? Wash your hands if you need to touch your eyes or your face. ?? Trim your child's fingernails so he cannot scratch his eye. ?? Wear protective eyewear when you work with chemicals, wood, dust, or metal. ?? Wear protective eyewear when you play sports. ?? Do not wear your contacts for longer than you should. ?? Do not wear colored lenses or lenses with shapes on them. These lenses may cause eye damage and vision loss. ?? Do not wear glitter makeup. Glitter can easily get into your eyes and under contact lenses. ?? Do not sleep with your contacts in your eyes. ?? 2017 [employer] Information is for End User's use only and may not be sold, redistributed or otherwise used for commercial purposes. All illustrations and images included in CareNotes?? are the copyrighted property of [employer] or [employer]. The above information is an educational coordinator only. It is not intended as medical advice for individual conditions or treatments. Talk to your doctor, nurse or pharmacist before following any medical regimen to see if it is safe and effective for you. Low Cost Clinics (You may qualify for free service) If you are NOT a legal resident, citizen or refugee and don???t have health insurance you can go tothe following clinics: [facility] [address] [place] [address] Appointments: [phone] [facility], [facility] [address] [place] [address] [facility] [address] [address] Appointments: [phone] [facility], [facility] [address] [place], [place] [id number] [facility] [address] [place] [address] [facility], [facility] [address] [place] [address] [facility] [address] [place] [address] [facility] [address] [place] [address] [facility] [address] [place] [address] Appointments: [phone] [facility] [address] [place] [address] without health insurance and you are not a citizen, refugee or legal resident yet? You may qualify to receive ???Medicaid for Women?? and it is free. For more information, call one of the Locations listed above If your child was born in the [facility] or is a legal resident for more than 5 years, he/she may be eligible for free or low cost health insurance: +: If the child is not eligible, you can still bring him/her to the clinics listed above to receive medical check-ups, shots and treatments For information about low cost medicines, call: CAL ASSISTANT documented in this encounter Medications at Time of Discharge Medication Sig Dispensed Refills Start Date End Date albuterol HFA (PROVENTIL;VENTOLIN;P ROAIR) 108 (90 BASE) MCG/ACT inhaler Inhale 2 Puffs by mouth every 6 hours as needed Reported on 10/23/2016 02/21/2021 benzonatate (TESSALON) 100 MG capsule Take 1 Cap by mouth 3 times daily as needed for Cough 30 Cap 10/10/2016 10/13/2017 cyclobenzaprine (FLEXERIL) 10 MG tablet Take 1 Tab by mouth 3 times daily as needed for Muscle Spasms (caution sedation.) 10 Tab 12/31/2016 10/13/2017 HYDROcodone-acetamino phen (NORCO) 5-325 MG tablet Take 1 Tab by mouth every 6 hours as needed for Pain 10 Tab 12/15/2016 10/13/2017 ketorolac (TORADOL) 10 MG tablet Take 1 Tab by mouth every 6 hours as needed for Pain 20 Tab 10/23/2016 10/13/2017 naproxen (NAPROSYN) 500 MG tablet Take 1 Tab by mouth 2 times daily as needed for Pain 20 Tab 12/31/2016 10/13/2017 phenazopyridine (PYRIDIUM) 200 MG tablet Take 1 Tab by mouth 3 times daily as needed 6 Tab 10/03/2016 10/13/2017 polyethylene glycol 3350 (MIRALAX) powder Take 17 g by mouth once daily as needed for Constipation 119 g 12/15/2016 10/13/2017 tobramycin (TOBREX) 0.3 % ophthalmic solution Instill 1 drop into left eye 4 times daily for 7 days 1 bottles 09/02/2017 09/09/2017 documented as of this encounter ED Notes * Hien Giron, RN - 09/02/2017 5:03 PM CST Discharge instructions reviewed with pt. Medications reviewed. Pt verbalized understanding. No other questions at this time. CAL ASSISTANT * Mariah Casas APRN-CNP - 09/02/2017 3:54 PM CST Images from the original note were not included. Provider contact with the patient: 09/02/2017 15:54 Jumana Rivers [id number] [facility] EMERGENCY DEPARTMENT History Chief Complaint Patient presents with ??? Drainage Eye L eye draining clear fluid, irritated and swollen x 2 days Chief complaint obtained by someone other than this provider. HPI Comments: Jumana Rivers is a 27 y.o. female presenting to the ED with a chief complaint of burning, itching, left eye pain for two days. She has greenish-yellow drainage from her eye. She has build up of crust under her intermittently. She feels like she has something in the back of her eye. She does not wear contacts, but wears glasses. She had her eye lashes done at a salon recently. She denies injury. She is allergic to Augmentin. 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 Denies injury, vision changes. Eye Problem The primary symptoms include eye pain (left), eye redness and eye itching.The history is provided by the patient. This is a new problem. The current episode started 2 days ago. The problem occurs constantly. The problem has been unchanged. The left eye is affected. There is no history of trauma to the eye. She does not wear contacts. She wears glasses.The patient is currently not wearing contacts.The patient is currently not wearing glasses.The color of discharge is green. There has been discharge, crusting. There has been no blurred vision, no double vision, no photophobia, no nausea, no vomiting, no tingling, no weakness, no itching, no headaches, no dizziness. Past Medical History: Diagnosis Date ??? Asthma remote ??? Chlamydia this ??? GBS (group B streptococcus) UTI complicating 08/07/2014 ??? History of anemia ??? History of sexually transmitted disease ??? Kidney stones ??? Migraines ??? depression ??? Trichomonas Treated this Past Surgical History: Procedure Laterality Date ??? NEGATIVE SURGICAL HISTORY Family History Problem Relation Age of Onset ??? Hypertension Maternal Grandmother ??? Hypertension Mother Social History Social History ??? Marital status: Single Spouse name: N/A ??? Number of children: N/A ??? Years of education: N/A Occupational History ??? Not on file. Social History Main Topics ??? Smoking status: Current Every Day Smoker Packs/day: 0.50 ??? Smokeless tobacco: Never Used ??? Alcohol use No Comment: rarely ??? Drug use: No ??? Sexual activity: Not on file Other Topics Concern ??? Not on file Social History Narrative Allergies Allergen Reactions ??? Augmentin Hives Review of Systems Review of Systems Constitutional: Negative. Negative for chills, fever and malaise/fatigue. HENT: Negative. Negative for congestion, ear pain and sore throat. Eyes: Positive for discharge. Negative for blurred vision, double vision and photophobia. Left eye drainage, irritation. No vision changes. No FB sensation Respiratory: Negative. Negative for cough, sputum production, shortness of breath and wheezing. Cardiovascular: Negative. Negative for chest pain, palpitations and leg swelling. Gastrointestinal: Negative. Negative for abdominal pain, constipation, diarrhea, nausea and vomiting. Genitourinary: Negative. Negative for dysuria, frequency and urgency. Musculoskeletal: Negative. Negative for joint pain and myalgias. Skin: Negative. Negative for itching and rash. Neurological: Negative. Negative for dizziness, tingling, sensory change, focal weakness, weakness and headaches. Psychiatric/Behavioral: Negative. All other systems reviewed and are negative. Physical Exam BP 112/72 Pulse 89 Temp 98.6 ??F Resp 18 Ht 1.626 m (5' 4 ) Wt 86.2 kg (190 lb) LMP 08/17/2017 (Exact Date) SpO2 100% BMI 32.61 kg/m2 Right eye 20/30, left eye 20/50 ; bilateral eyes 20/25 Without correction (usually wears eye glasses ) Physical Exam Constitutional: She is oriented to person, place, and time. She appears well- developed and well-nourished. No distress. HENT: Head: Normocephalic and atraumatic. Right Ear: External ear normal. Left Ear: External ear normal. Eyes: EOM and lids are normal. Pupils are equal, round, and reactive to light. Right eye exhibits no discharge. Left eye exhibits discharge. Left eye exhibits no chemosis. No foreign body present in the left eye. Left conjunctiva is injected (Very mildly). Left conjunctiva has no hemorrhage. Slit lamp exam: The left eye shows corneal abrasion and fluorescein uptake. Drainage along medial canthus of left eye; Small corneal abrasion on lower, left eye; Neck: Normal range of motion. Neck supple. Cardiovascular: Normal rate, regular rhythm, normal heart sounds and intact distal pulses. Exam reveals no gallop and no friction rub. No murmur heard. Pulmonary/Chest: Effort normal and breath sounds normal. No respiratory distress. She has no wheezes. She has no rales. Abdominal: Soft. Bowel sounds are normal. There is no tenderness. Musculoskeletal: Normal range of motion. Extremities warm; cap ref < 2 sec Neurological: She is alert and oriented to person, place, and time. She exhibits normal muscle tone. Coordination normal. Skin: Skin is warm and dry. No rash noted. She is not diaphoretic. No erythema. No pallor. Psychiatric: She has a normal mood and affect. Her behavior is normal. Judgment and thought contentnormal. Nursing note and vitals reviewed. Medications Current Outpatient Prescriptions Medication Sig Dispense Refill ??? tobramycin (TOBREX) 0.3 % ophthalmic solution Instill 1 drop into left eye 4 times daily for 7 days 1 bottles 0 ??? naproxen (NAPROSYN) 500 MG tablet Take 1 Tab by mouth 2 times daily as needed for Pain (Patientnot taking: Reported on 09/02/2017) 20 Tab 0 ??? cyclobenzaprine (FLEXERIL) 10 MG tablet Take 1 Tab by mouth 3 times daily as needed for Muscle Spasms (caution sedation.) (Patient not taking: Reported on 09/02/2017) 10 Tab 0 ??? HYDROcodone-acetaminophen (NORCO) 5-325 MG tablet Take 1 Tab by mouth every 6 hours as needed for Pain (Patient not taking: Reported on 09/02/2017) 10 Tab 0 ??? polyethylene glycol 3350 (MIRALAX) powder Take 17 g by mouth once daily as needed for Constipation (Patient not taking: Reported on 09/02/2017) 119 g 0 ??? ketorolac (TORADOL) 10 MG tablet Take 1 Tab by mouth every 6 hours as needed for Pain (Patient not taking: Reported on 09/02/2017) 20 Tab 0 ??? benzonatate (TESSALON) 100 MG capsule Take 1 Cap by mouth 3 times daily as needed for Cough (Patient not taking: Reported on 10/23/2016) 30 Cap 0 ??? phenazopyridine (PYRIDIUM) 200 MG tablet Take 1 Tab by mouth 3 times daily as needed (Patient not taking: Reported on 10/10/2016) 6 Tab 0 ??? albuterol HFA (PROVENTIL;VENTOLIN;PROAIR) 108 (90 BASE) MCG/ACT inhaler Inhale 2 Puffs by mouthevery 6 hours as needed Reported on 10/23/2016 Procedures Procedures ECG Interpretation ECG Interpretation Lab Interpretation Oxygen Saturation Interpretation The oxygen saturation level is: 100%. The patient was on Room Air for the saturation measurement. Measurement frequency: Continuous. Oxygen saturation interpretation is Normal. Intervention(s) used: None. No results found for this visit on 09/02/17. No orders to display Progress Notes 3:54 PM: Initial Plan: Patient will be given Flu-Reena. Patient agrees with plan. Will reassess. Planis subject to change throughout the pt's time in the ED. 4:54 PM: Rechecked pt -patient resting comfortably and feeling better. I discussed the results of diagnostic studies, my clinical impression, and the plan for further treatment with the patient. Patient agrees with plan and discharge at this time, all questions addressed. Pt is medically stable for discharge at this time. Patient advised to use the medication as prescribed. She was advised to follow-up with her eye provider. We have reviewed hand hygiene. I have advised the patient to not use makeup, eye products, eye lashes until symptoms resolved/healed. I have given the patient instructions regarding [...] patient verbalized understanding of the discharge instructions. Vitals prior to discharge: Blood pressure 112/72, pulse 89, temperature 98.6 ??F, resp. rate 18, height 1.626 m (5' 4 ), weight 86.2 kg (190 lb), last menstrual period 08/17/2017, SpO2 100 %, not currently . ED Course Medical Decision Making I have reviewed the: Previous Chart, Nursing Notes, Vitals. I have interpreted the following results: Labs, Oxygen Saturation. Orders Placed This Encounter ??? tetracaine 0.5% 0.5 % ophthalmic solution 1 drop ??? fluorescein (FUL-REENA) ophthalmic strip 1 strip ??? tobramycin (TOBREX) 0.3 % ophthalmic solution Clinical Impression Final diagnoses: Acute bacterial conjunctivitis of left eye Abrasion of left cornea, initial encounter Vitals prior to discharge: Blood pressure 112/72, pulse 89, temperature 98.6 ??F, resp. rate 18, height 1.626 m (5' 4 ), weight 86.2 kg (190 lb), last menstrual period 08/17/2017, SpO2 100 %, not currently . New Medications: Discharge Medication List as of 09/02/2017 4:43 PM START taking these medications Details tobramycin (TOBREX) 0.3 % ophthalmic solution Disp-1 bottles, R-0, Instill 1 drop into left eye 4 times daily for 7 days, Print I have advised the patient to follow-up with: [facility], [address] [address] Raissa Ahumada MD [address] [place] [address] Call in 1 day Disposition: Discharged By signing my name below, I, Katie Pereira, attest that this documentation has been prepared under the direction and in the presence of MARIANA Casas. Electronically Signed: Tevin Wellington. 09/02/2017 3:54 PM I, MARIANA Casas, personally performed the services described in this documentation. All medical record entries made by the scribe were at my direction and in my presence. I have reviewed the chart and discharge instructions and agree that the record reflects my personal performance and is accurate and complete. Mariah Casas, NEELAM-RIKKI 09/02/2017 3:54 PM CAL ASSISTANT * Hien Giron, RN - 09/02/2017 3:46 PM CST Pt presents to the ED with L eye drainage X 2 days. Stating she wakes up with crust on eye and it is difficult to pull open eyelid. Pt stating she has 5/10 burning in L eye and on skin directly underneath eye. Pupils are PERRL and 3mm. Stating she has blurry vision. Hasn't tried to take anything for the burning. Stating she has fake eyelashes on that need to be removed. Very pleasant. CAL ASSISTANT documented in this encounter Plan of Treatment Not on file documented as of this encounter Visit Diagnoses Diagnosis Acute bacterial conjunctivitis of left eye Abrasion of left cornea, initial encounter documented in this encounter Administered Medications Inactive Administered Medications - up to 3 most recent administrations Medication Order MAR Action Action Date Dose Rate Site fluorescein (FUL-REENA) ophthalmic strip 1 strip 1 strip, Left Eye, ONCE, 1 dose, On Thu09/02/17 at 1615 $ Admin. by Other Provider 09/02/2017 4:11 PM MEDICAL ASSISTANT 1 strip tetracaine 0.5% 0.5 % ophthalmic solution 1 drop 1 drop, Left Eye, ONCE, 1 dose, On Thu09/02/17 at 1615 $ Admin. by Other Provider 09/02/2017 4:11 PM MEDICAL ASSISTANT 1 drop documented in this encounter Active and Recently Administered Medications Times are shown in MEDICAL ASSISTANT. Scheduled Medication Order 08/31/2017 09/01/2017 09/02/2017 fluorescein (FUL-REENA) ophthalmic strip 1 strip (COMPLETED) 1 strip, Left Eye, ONCE, 1 dose, On Thu09/02/17 at 1615 1611 ($ Admin. by Ot her Provider - Provider: Hien Giron, RN) tetracaine 0.5% 0.5 % ophthalmic solution 1 drop (COMPLETED) 1 drop, Left Eye, ONCE, 1 dose, On Thu09/02/17 at 1615 1611 ($ Admin. by Ot her Provider - Provider: Hien Giron, RN) documented in this encounter Care Teams Flag Decorator Relationship Specialty [facility] Date [facility] PCP - General 10/10/16 10/12/17 documented as of this encounter
--- OUTSIDE RECORDS SUMMARY | 2024-09-25 11:47 | XMS_ITS | Encounter Summary ---
Author Organization [employer] Address [address] [facility] [place] [address] Care Team Providers Care Fire Inspector Name Role Phone Rema Austin MD Primary Care Provider [phone] Reason for Visit * Reason Comments Referral Pt BIBEMS from OSH f or urology referral. OSH confirms active UTI and kidney stones. Patient reports 8/10 flank pain and abdominal pain. VSS. * Auth/Cert Specialty Diagnoses / Procedures Referred By Norm t Referred To Contact Referral ID Status Reason Start Date Expiration Date Visits Re quested Visits Authorized [id number] 1 1 Encounter Details Date Type Department Care Team (Late st Contact Info) Description 11/25/2020 2:00 PM CDT - 11/25/2020 3:03 PM CDT Surgery [facility] [address] [place] [phone] Miller Zaomra MD [address] [facility] 2L [place] [phone] CYSTOSCOPY WITH RIGHT RETROGRADE PYELOGRAM; STENT PLACEMENT Surgery Details Date/Time Status Location OR Service Patient Class Case Class Case Type Trauma Case? 11/25/2020 2:00 PM Posted [facility] OR OR Urology Inpatient Panel 1 Procedure LRB Anes Op Region Wound Class Comments CYSTOSCOPY WITH RIGHT RETROG RADE PYELOGRAM; STENT PLACEMENT Right General Vagina Clean Contamin ated Surgeon Surgeon Role Service Panel Miller Zamora MD Primary Urology 1 Shyam Rodriguez MD Resident - Assisting 1 Special Needs ORIGINALLY BOOKED LEVEL 3 ON 11/24/2020 @ 0950 DR ZAMORA REQUEST TO MOVE CASE TO 11/26/19 @ 1835 documented in this encounter Social History Tobacco [...] Sign Reading Time Taken Comments Blood Pressure 121/78 11/25/2020 2:23 PM CDT Pulse 78 11/25/2020 2:23 PM CDT Temperature 9.4 ??C (48.9 ??F) 11/25/2020 2:23 PM CDT Respiratory Rate 14 11/25/2020 2:23 PM CDT Oxygen Saturation 99% 11/25/2020 2:23 PM CDT Inhaled Oxygen Concentration 98% 11/25/2020 1 :08 PM CDT Weight 87.5 kg (193 lb) [...] of this encounter Discharge Summaries * Olga Knott APRN-COLLEGE OR UNIVERSITY REGISTRAR - 11/26/2020 8:23 AM CDT Physician Discharge Summary [facility] Division of Urologic Surgery Inpatient Discharge Summary Miller Zamora MD Patient ID: Alysha Jolley [id number] 30 year old 1990 Admit date: 11/24/2020 [...] shewas discharged home. Family to transport in [facility]. A surgery order for Cystoscopy, RIGHT retrograde pyelogram, ureteroscopy, laser lithotripsy, stone basket extraction, possible stent exchange was placed. The outpatient building performance consultant should reachout to the patient with a [...] for input(s): CBC, PSA in the last 66184 hours. Invalid input(s): UA Updated imaging: OSH CT completed. Discharge Exam: General: NAD, well appearing Head/Neck: Normocephalic ENT: Opens eyes CV: Regular rate, regular rhythm Lungs: No increased respiratory effort Abdomen: Soft, non-distended, mildly tender in RLQ Genitourinary: No CVA tenderness Extremities: No edema Neuro: Awake, alert Disposition: home Patient Instructions: Follow-up Information Miller Zamoar MD . Specialty: Urology Why: We will call you with your scheduled surgery date to remove your kidney stone. Contact information: [address] [facility] [address] Discharge Instructions We will call you this [...] care or the recovery process, please contact [facility] Urology at [phone] during regular business hours. On weekends or in the evening, please contact [facility] Hospitalat [phone] and ask for whoever is educational psychology professor for Urology. Ureteral Stent Placement WHAT YOU [...] refuse treatment. The above information is an disability aide only. It is not intended as medical advice for individual conditions or treatments. Talk to your doctor, nurse or pharmacist before following any medical regimen to see if it is safe and effective for you. ?? Copyright [employer] 2019 Information is for End User's use only and may not be sold, redistributed or otherwise used for commercial purposes. All illustrations and images included in CareNotes?? are the copyrighted property of [employer] or [employer] Ureteral Stent Placement WHAT YOU NEED TO [...] ask them during your visits. ?? Copyright [employer] 2019 Information is for End User's use only and may not be sold, redistributed or otherwise used for commercial purposes. All illustrations and images included in CareNotes?? are the copyrighted property of [employer]. or [employer] The above information is an disability aide only. It is not intended as medical advice for individual conditions or treatments. Talk to your doctor, nurse or pharmacist before following any medical regimen to see if it is safe and effective for you. Signed: Olga Knott APRN-COLLEGE OR UNIVERSITY REGISTRAR 11/26/2020 8:23 AM documented in this encounter [...] care or the recovery process, please contact [facility] Urology at [phone] during regular business hours. On weekends or in the evening, please contact [facility] Hospitalat [phone] and ask for whoever is educational psychology professor for Urology. Ureteral Stent Placement WHAT YOU [...] refuse treatment. The above information is an disability aide only. It is not intended as medical advice for individual conditions or treatments. Talk to your doctor, nurse or pharmacist before following any medical regimen to see if it is safe and effective for you. ?? Copyright [employer] 2019 Information is for End User's use only and may not be sold, redistributed or otherwise used for commercial purposes. All illustrations and images included in CareNotes?? are the copyrighted property of [employer]. or [employer] Ureteral Stent Placement WHAT YOU NEED TO [...] ask them during your visits. ?? Copyright [employer] 2019 Information is for End User's use only and may not be sold, redistributed or otherwise used for commercial purposes. All illustrations and images included in CareNotes?? are the copyrighted property of [employer]. or [employer] The above information is an disability aide only. It is not intended as [...] of this encounter Progress Notes * Jacklyn Sma RN - 11/26/2020 11:40 AM CDT Case Management Progress Note Anticipated level of care at discharge: Home Alysha Jolley [id number] 30 year old 1990 ?? Admit date: 11/24/2020 Discharge Disposition : Home Basic Needs Assessment (BNA) Score: 5 Transportation at Discharge: Pt arranged Pt discharged prior to BNA. No needs identified Jacklyn Sam RN Case Management [phone] * Olga Knott APRN-CNP - 11/26/2020 9:26 [...] (1.626 m) Wt 193 lb (87.5 kg) KyC273% BMI 33.13 kg/m2 Physical Exam: General: NAD, [...] input(s): PROTIME, INR, PTT in the last 37191 hours. No results for input(s): PHART, PO2ART, NZK6PAQ, BEART in the last 69641 hours. Lab results smartLinks are not currently [...] exchange in roughly 6 weeks. Olga Knott APRN-RIKKI 11/26/2020 8:14 AM * Caroline Regalado RN [...] input(s): PROTIME, INR, PTT in the last 34488 hours. No results for input(s): PHART, PO2ART, AMC9YEE, BEART in the last 83404 hours. Lab results smartLinks are not currently available Imaging: CT abdomen, pelvis WO (11/23/2020)- (OSH, CT disc with urology) - Per my read patient has 2 or 3 stacked stones in the distal ureter on the RIGHT side. Mild hydroureter without significant hydronephrosis. 2-3 non- obstructing calcifications noted in bilateral kidneys. Horseshoe kidney confirmed. IUD in place. ?? Assessment: DaTreion Tita is a 30 year old [...] with RIGHT pelvic pain. Patient presented to [facility] with this pain and underwent CT scan [...] * Operative - Miller Zamora MD - 11/25/2020 4:26 PM CDT NAME: [...] draped in sterile fashion. We took a 22-Syrian cystoscope was inserted into the urethra. Bladder [...] obtained. We then attempted to place a 6-Syrian ureteral stents, met resistance. Thus, we then used a 4.8-Syrian x26 cm stent and placed this over the wire with some difficulty into the right renal pelvis. We saw good a curl in the renal pelvis and a good curl in the bladder. Bladder was drained. She was taken to recovery in stable condition. I was present for the entire procedure. Miller Zamora MD [facility].[id number] Doc ID: [id number] Job ID: [id number] * Brief Op Note - Shyam Rodriguez [...] RN - 11/24/2020 3:00 PM CDT Bed: [address] Expected date: Expected time: Means of [...] of lithotripsy BIBEMS as a transfer from [facility] with complaints of worsening suprapubic pain for [...] file Gets together: Not on file Attends congregational service: Not on file Active member of [...] amplification assay performance was validated by [facility]. This test has been authorized by [...] mg (0.5 mg Intravenous $ Given 11/24/20 7883) Clinical Impression: 1. Nephrolithiasis 2. Hydronephrosis, unspecified hydronephrosis type 3. Urinary tract infection with hematuria, site unspecified Disposition: PAMELLA to Dr. Medellin. By signing my name below, I, Jolie Amado, attest that this documentation has been prepared under the direction and in the presence of Dr. Jordan. Signed: Tevin Fernnadez. I, Dr. Jordan, personally performed the services [...] TOTAL) Routine 11/26/2020 4:50 AM CDT Nephrolithiasis [place] CYSTOURETHROSCOPY,UR ETER CATHETER 11/25/2020 3:31 PM CDT Hematuria, unspecified type Special Needs ORIGINALLY BOOKED LEVEL 3 ON 11/24/2020 @ 0950 DR ZAMORA REQUEST TO MOVE CASE TO 11/26/19 @ [...] CULTURE URINE STAT 11/24/2020 6:09 AM CDT documented in this encounter Results * [place] CYSTO SURGERY (11/26/2020 3:55 PM CDT) Narrative [facility] RADIOLOGY - 11/30/2020 9:41 PM CDT Fluoroscopy was used for this exam in the OR. Please see the Operative report. Miller Zamora MD FLUOROSCOPY ORLYA KATHIA [facility] RADIOLOG[facility] * (ABNORMAL) CBC W AUTO DIFFERENTIAL (11/26/2020 4:50 AM T) WBC 7.6 3.5 - 10.5 10? 3 /uL 11/26/2020 5:42 AM [facility] Comment:Confirmed by repeat analysis. RBC 4.05 3.90 - 5.00 10? 6 /uL 11/26/2020 5:42 AM [facility] Hemoglobin 10.6(L) 12.0 - 15.5 g/dL 11/26/2020 5:42 AM [facility] Hematocrit 32.6(L) 35.0 - 45.0 % 11/26/2020 5:42 AM [facility] MCV 80.5(L) 81.0 - 97.0 fL 11/26/2020 5:42 AM [facility] MCH 26.2(L) 28.0 - 34.0 pg 11/26/2020 5:42 AM [facility] MCHC 32.5 32.0 - 36.0 g/dL 11/26/2020 5:42 AM [facility] Platelet Count 315 150 - 400 10? 3 /uL 11/26/2020 5:42 AM [facility] RDW-SD 49.8 36.0 - 50.0 fL 11/26/2020 5:42 AM [facility] RDW-CV 16.9(H) 11.2 - 14.8 % 11/26/2020 5:42 AM [facility] MPV 9.9 9.3 - 12.8 fL 11/26/2020 5:42 AM [facility] nRBC Absolute 0.00 0 10? 3 /uL 11/26/2020 5:42 AM [facility] nRBC Auto 0.0 0 /100 WBC 11/26/2020 5:42 AM [facility] Neutrophils % 74.5(H) 35.0 - 70.0 % 11/26/2020 5:42 AM [facility] Lymphocytes % 13.7(L) 19.7 - 55.1 % 11/26/2020 5:42 AM [facility] Monocytes % 10.9 3.0 - 15.0 % 11/26/2020 5:42 AM [facility] Eosinophils % 0.1 0.0 - 6.0 % 11/26/2020 5:42 AM [facility] Basophil % 0.4 0.0 - 1.5 % 11/26/2020 5:42 AM [facility] Neutrophils Absolute 5.7 1.6 - 7.0 10? 3 /uL 11/26/2020 5:42 AM [facility] Lymphocyte Absolute 1.0 0.8 - 2.9 10? 3 /uL 11/26/2020 5:42 AM [facility] Monocytes Absolute 0.83(H) 0.14 - 0.66 10? 3 /uL 11/26/2020 5:42 AM [facility] Eosinophils Absolute 0.01 0.00 - 0.45 10? 3 /uL 11/26/2020 5:42 AM [facility] Basophils Absolute 0.03 0.00 - 0.06 10? 3 /uL 11/26/2020 5:42 AM [facility] Immature Granulocytes % 0.4 0.0 - 1.0 % 11/26/2020 5:42 AM [facility] Blood BLOOD SPECIMEN / Unknown Lab Venipuncture / Unknown 11/26/2020 4:50 AM CDT 11/26/2020 5:27 AM CDT Yair Medellin MD LAB - HEMATOLOG Y ORDERABLES Performing Organization Address City/State/[facility] Co de Phone Number [facility] [address] [place] [phone], [facility] [phone] * (ABNORMAL) BASIC METABOLIC PANEL (CALCIUM TOTAL) (11/26/2020 4:50 AM CDT) BUN 14 7 - 26 mg/dL 11/26/2020 5:50 AM [facility] Creatinine 0.7 0.6 - 1.2 mg/dL 11/26/2020 5:50 AM CDT [facility] Sodium 140 136 - 145 mmol/L 11/26/2020 5:50 AM [facility] Potassium 3.9 3.5 - 4.5 mmol/L 11/26/2020 5:50 AM [facility] Chloride 105 98 - 107 mmol/L 11/26/2020 5:50 AM [facility] CO2 26 22 - 29 mmol/L 11/26/2020 5:50 AM [facility] Glucose 116(H) 70 - 115 mg/dL 11/26/2020 5:50 AM [facility] Calcium 9.3 8.4 - 10.2 mg/dL 11/26/2020 5:50 AM [facility] Anion Gap 13 8 - 18 11/26/2020 5:50 AM [facility] BUN/Creatinine Ratio 20 7 - 23 11/26/2020 5:50 AM [facility] Osmolality Calculated 291 270 - 300 mOsm/kg 11/26/2020 5:50 AM [facility] eGFR >60 >60 mL/min/1.7 3 m2 11/26/2020 5:50 AM [facility] Blood BLOOD SPECIMEN / Unknown Lab Venipuncture / Unknown 11/26/2020 4:50 AM CDT 11/26/2020 5:27 AM T Yair Medellin MD LAB - CHEMISTRY ORDERABLES Performing Organization Address City/State/[facility] Co de Phone Number [address] [phone], [facility] [phone] * (ABNORMAL) CBC W AUTO DIFFERENTIAL (11/25/2020 4:04 AM CDT) WBC 5.0 3.5 - 10.5 10? 3 /uL 11/25/2020 4:43 AM [facility] RBC 3.97 3.90 - 5.00 10? 6 /uL 11/25/2020 4:43 AM [facility] Hemoglobin 10.3(L) 12.0 - 15.5 g/dL 11/25/2020 4:43 AM [facility] Hematocrit 32.1(L) 35.0 - 45.0 % 11/25/2020 4:43 AM [facility] MCV 80.9(L) 81.0 - 97.0 fL 11/25/2020 4:43 AM [facility] MCH 25.9(L) 28.0 - 34.0 pg 11/25/2020 4:43 AM [facility] MCHC 32.1 32.0 - 36.0 g/dL 11/25/2020 4:43 AM [facility] Platelet Count 291 150 - 400 10? 3 /uL 11/25/2020 4:43 AM [facility] RDW-SD 50.4(H) 36.0 - 50.0 fL 11/25/2020 4:43 AM [facility] RDW-CV 17.0(H) 11.2 - 14.8 % 11/25/2020 4:43 AM [facility] MPV 9.3 9.3 - 12.8 fL 11/25/2020 4:43 AM [facility] nRBC Absolute 0.00 0 10? 3 /uL 11/25/2020 4:43 AM [facility] nRBC Auto 0.0 0 /100 WBC 11/25/2020 4:43 AM [facility] Neutrophils % 46.1 35.0 - 70.0 % 11/25/2020 4:43 AM [facility] Lymphocytes % 34.1 19.7 - 55.1 % 11/25/2020 4:43 AM [facility] Monocytes % 14.8 3.0 - 15.0 % 11/25/2020 4:43 AM [facility] Eosinophils % 3.8 0.0 - 6.0 % 11/25/2020 4:43 AM [facility] Basophil % 0.6 0.0 - 1.5 % 11/25/2020 4:43 AM [facility] Neutrophils Absolute 2.3 1.6 - 7.0 10? 3 /uL 11/25/2020 4:43 AM [facility] Lymphocyte Absolute 1.7 0.8 - 2.9 10? 3 /uL 11/25/2020 4:43 AM [facility] Monocytes Absolute 0.74(H) 0.14 - 0.66 10? 3 /uL 11/25/2020 4:43 AM [facility] Eosinophils Absolute 0.19 0.00 - 0.45 10? 3 /uL 11/25/2020 4:43 AM [facility] Basophils Absolute 0.03 0.00 - 0.06 10? 3 /uL 11/25/2020 4:43 AM [facility] Immature Granulocytes % 0.6 0.0 - 1.0 % 11/25/2020 4:43 AM [facility] Blood BLOOD SPECIMEN / Unknown Lab Venipuncture / Unknown 11/25/2020 4:04 AM CDT 11/25/2020 4:25 AM T Yair Medellin MD LAB - HEMATOLOG Y ORDERABLES Performing Organization Address City/[facility] Co de Phone Number [facility] [address] [place] [phone], [facility] [phone] * (ABNORMAL) BASIC METABOLIC PANEL (CALCIUM TOTAL) (11/25/2020 4:04 AM CDT) BUN 13 7 - 26 mg/dL 11/25/2020 4:52 AM [facility] Creatinine 0.7 0.6 - 1.2 mg/dL 11/25/2020 4:52 AM [facility] Sodium 140 136 - 145 mmol/L 11/25/2020 4:52 AM [facility] Potassium 3.8 3.5 - 4.5 mmol/L 11/25/2020 4:52 AM [facility] Chloride 108(H) 98 - 107 mmol/L 11/25/2020 4:52 AM [facility] CO2 27 22 - 29 mmol/L 11/25/2020 4:52 AM [facility] Glucose 102 70 - 115 mg/dL 11/25/2020 4:52 AM [facility] Calcium 8.2(L) 8.4 - 10.2 mg/dL 11/25/2020 4:52 AM [facility] Anion Gap 9 8 - 18 11/25/2020 4:52 AM [facility] BUN/Creatinine Ratio 19 7 - 23 11/25/2020 4:52 AM [facility] Osmolality Calculated 290 270 - 300 mOsm/kg 11/25/2020 4:52 AM [facility] eGFR >60 >60 mL/min/1.7 3 m2 11/25/2020 4:52 AM [facility] Blood BLOOD SPECIMEN / Unknown Lab Venipuncture / Unknown 11/25/2020 4:04 AM CDT 11/25/2020 4:25 AM T Yair Medellin MD LAB - CHEMISTRY ORDERABLES Performing Organization Address City/State/[facility] Co de Phone Number [facility] [address] [place] [address], [facility] [phone] * (ABNORMAL) COMPREHENSIVE METABOLIC PANEL (11/24/2020 6:25 AM CDT) BUN 13 7 - 26 mg/dL 11/24/2020 6:57 AM [facility] Creatinine 0.6 0.6 - 1.2 mg/dL 11/24/2020 6:57 AM [facility] Sodium 139 136 - 145 mmol/L 11/24/2020 6:57 AM [facility] Potassium 3.0(L) 3.5 - 4.5 mmol/L 11/24/2020 6:57 AM [facility] Chloride 106 98 - 107 mmol/L 11/24/2020 6:57 AM [facility] CO2 26 22 - 29 mmol/L 11/24/2020 6:57 AM [facility] Glucose 81 70 - 115 mg/dL 11/24/2020 6:57 AM [facility] Calcium 8.4 8.4 - 10.2 mg/dL 11/24/2020 6:57 AM [facility] Protein Total 6.2 6.0 - 8.3 g/dL 11/24/2020 6:57 AM [facility] Albumin 3.4 3.4 - 5.0 g/dL 11/24/2020 6:57 AM [facility] Bilirubin Total 0.4 0.2 - 1.2 mg/dL 11/24/2020 6:57 AM [facility] Alkaline Phosphatase 44 40 - 150 Units/L 11/24/2020 6:57 AM [facility] ALT 5 0 - 55 Units/L 11/24/2020 6:57 AM [facility] AST 10 5 - 34 Units/L 11/24/2020 6:57 AM [facility] Anion Gap 10 8 - 18 11/24/2020 6:57 AM [facility] BUN/Creatinine Ratio 22 7 - 23 11/24/2020 6:57 AM [facility] Osmolality Calculated 287 270 - 300 mOsm/kg 11/24/2020 6:57 AM [facility] Albumin/Globulin Ratio 1.2 1.1 - 2.3 11/24/2020 6:57 AM [facility] eGFR >60 >60 mL/min/1.7 3 m2 11/24/2020 6:57 AM [facility] Blood BLOOD SPECIMEN / Unknown Venipuncture / Unknown 11/24/2020 6:25 AM CDT 11/24/2020 6:32 AM T Bal Sanchez PA-C LAB - CHEM ISTRY ORDERABLES Performing Organization Address City/State/[facility] Co de Phone Number [address] [phone], [facility] [phone] * (ABNORMAL) CBC W AUTO DIFFERENTIAL (11/24/2020 6:25 AM CDT) WBC 7.5 3.5 - 10.5 10? 3 /uL 11/24/2020 6:38 AM [facility] RBC 4.05 3.90 - 5.00 10? 6 /uL 11/24/2020 6:38 AM [facility] Hemoglobin 10.7(L) 12.0 - 15.5 g/dL 11/24/2020 6:38 AM [facility] Hematocrit 32.9(L) 35.0 - 45.0 % 11/24/2020 6:38 AM [facility] MCV 81.2 81.0 - 97.0 fL 11/24/2020 6:38 AM [facility] MCH 26.4(L) 28.0 - 34.0 pg 11/24/2020 6:38 AM [facility] MCHC 32.5 32.0 - 36.0 g/dL 11/24/2020 6:38 AM [facility] Platelet Count 305 150 - 400 10? 3 /uL 11/24/2020 6:38 AM [facility] RDW-SD 50.4(H) 36.0 - 50.0 fL 11/24/2020 6:38 AM [facility] RDW-CV 17.1(H) 11.2 - 14.8 % 11/24/2020 6:38 AM [facility] MPV 9.1(L) 9.3 - 12.8 fL 11/24/2020 6:38 AM [facility] nRBC Absolute 0.00 0 10? 3 /uL 11/24/2020 6:38 AM [facility] nRBC Auto 0.0 0 /100 WBC 11/24/2020 6:38 AM [facility] Neutrophils % 46.9 35.0 - 70.0 % 11/24/2020 6:38 AM [facility] Lymphocytes % 35.4 19.7 - 55.1 % 11/24/2020 6:38 AM [facility] Monocytes % 12.1 3.0 - 15.0 % 11/24/2020 6:38 AM [facility] Eosinophils % 4.2 0.0 - 6.0 % 11/24/2020 6:38 AM [facility] Basophil % 0.9 0.0 - 1.5 % 11/24/2020 6:38 AM [facility] Neutrophils Absolute 3.5 1.6 - 7.0 10? 3 /uL 11/24/2020 6:38 AM [facility] Lymphocyte Absolute 2.6 0.8 - 2.9 10? 3 /uL 11/24/2020 6:38 AM CDT [facility] Monocytes Absolute 0.90(H) 0.14 - 0.66 10? 3 /uL 11/24/2020 6:38 AM CDT [facility] Eosinophils Absolute 0.31 0.00 - 0.45 10? 3 /uL 11/24/2020 6:38 AM CDT [facility] Basophils Absolute 0.07(H) 0.00 - 0.06 10? 3 /uL 11/24/2020 6:38 AM T [facility] Immature Granulocytes % 0.5 0.0 - 1.0 % 11/24/2020 6:38 AM T [facility] Blood BLOOD SPECIMEN / Unknown Venipuncture / Unknown 11/24/2020 6:25 AM CDT 11/24/2020 6:32 AM CDT Bal Sanchez PA-C LAB - LAURA TOLOGY ORDERABLES Performing Organization Address City/State/[facility] Co de Phone Number [address] [phone] [phone] * SARS-COV-2 (COVID-19)+INFLU A+B PCR RAPID (11/24/2020 6:22 AM CDT) [facility] COVID-19 PCR Not detected Not detected 11/25/19 7:00 AM [facility] Influenza A Rapid JOSHUA Not Detected Not Detected 11/24/2020 7:00 AM T [facility] Influenza B JOSHUA Rapid Not Detected Not Detected 11/24/2020 7:00 AM T [facility] Microbiology SPECIMEN FROM NASOPHARYNGEAL STRUCTURE / Unknown Collection / Unknown 11/24/2020 6:22 AM CDT 11/24/2020 6:32 AM CDT Narrative [facility] - 11/24/2020 7:00 AM CDT Influenza assay [...] amplification assay performance was validated by [facility]. This test has been authorized by [...] Sanchez PA-C LAB - MICR OBIOLOGY ORDERABLES [facility] [address] [place] [address], [place] [phone] * CULTURE URINE (11/24/2020 6:09 AM CDT) Pathologist [facility] Culture Urine >100,000 CFU/mL urogenital marco CHRYSTAL 11/25/2020 1:43 PM CDT [facility] MICROBIOLOGY Urine URINE SPECIMEN OBTAINED BY CLEAN CATCH PROCEDURE / Unknown Collection / Unknown 11/24/2020 6:09 AM CDT 11/24/2020 6:13 AM CDT Yair Medellin MD LAB - MICROBIOL OGY ORDERABLES [facility] MICROBIOLOGY [address] [place] [address], [facility] [phone] * (ABNORMAL) URINALYSIS W/MICROSCOPIC NO CULTURE (11/24/2020 6:09 AM CDT) Color UA Yellow Straw, Yellow, Colorless 11/24/2020 6:27 AM [facility] Clarity UA Cloudy(A) Clear, Slt Cloudy 11/24/2020 6:27 AM [facility] Specific [place] UA 1.024 1.005 - 1.030 11/24/2020 6:27 AM [facility] pH UA 6.0 5.0 - 8.0 pH 11/24/2020 6:27 AM [facility] Protein UA 1+(A) Negative mg/dL 11/24/2020 6:27 AM [facility] Glucose UA Negative Negative mg/dL 11/24/2020 6:27 AM [facility] Ketone UA 1+(A) Negative mg/dL 11/24/2020 6:27 AM [facility] Bilirubin UA Negative Negative mg/dL 11/24/2020 6:27 AM [facility] Blood UA Negative Negative 11/24/2020 6:27 AM [facility] Nitrite UA Negative Negative 11/24/2020 6:27 AM [facility] Leukocyte Esterase 3+(A) Negative 11/24/2020 6:27 AM [facility] Urobilinogen UA 2.0(A) Negative mg/dL 11/24/2020 6:27 AM [facility] RBC UA 11-20(A) None Seen, 0-2, 3-5 /HPF 11/24/2020 6:27 AM [facility] WBC UA 21-50(A) None Seen, 0-5 /HPF 11/24/2020 6:27 AM [facility] Bacteria UA 1+(A) None, Trace /HPF 11/24/2020 6:27 AM [facility] Squamous Epithelial Cells UA >20(A) None Seen, 0-2 /HPF 11/24/2020 6:27 AM [facility] Mucus UA 4+(A) None, 1+ /LPF 11/24/2020 6:27 AM [facility] Urine URINE SPECIMEN OBTAINED BY CLEAN CATCH PROCEDURE / Unknown Collection / Unknown 11/24/2020 6:09 AM CDT 11/24/2020 6:13 AM CDT Narrative [facility] - 11/24/2020 6:27 AM CDT Yair Medellin MD LAB - URINALYSI S ORDERABLES [address] [id number], [facility] [phone] * HCG URINE QUALITATIVE (11/24/2020 6:09 AM CDT) Test Urine Negative Negative 11/24/2020 6:33 AM CDT [facility] Urine URINE / Unknown Collection / Unknown 11/24/2020 6:09 AM CDT 11/24/2020 6:13 AM CDT Bal Sanchez PA-C LAB - URIN ALYSIS ORDERABLES Performing Organization Address City/[facility]/ZIP Co de Phone Number [address] [address], [facility] [phone] documented in this encounter Visit Diagnoses Diagnosis Nephrolithiasis- Primary Calculus of kidney Nephrolithiasis Calculus of kidney Hydronephrosis, unspecified hydronephrosis type Urinary tract infection with hematuria, site unspecified Hydronephrosis with renal and ureteral calculous obstruction Hematuria, unspecified type documented in this encounter Administered Medications Inactive [...] 11/24/20 at 1020, Until 11/26/20 at 1241 $ Given 11/25/2020 10:27 PM [...] Given 11/24/2020 9:55 AM CDT 0.5 mg iohexol (OMNIPAQUE 300) contrast PRN, Starting on 11/25/20 at 1537, Until 11/25/20 at 1611, Intra-op $ Given 11/25/2020 3:37 PM CDT 100 mL Ope rative Site ketorolac (TORADOL) injection 15 mg 15 mg, Intravenous, EVERY 6 HOURS PRN, Moderate Pain, Breakthrough pain, not tolerating PO alternative, Starting on 11/24/20 at 1020, Until 11/26/20 at 1241 $ Given 11/26/2020 2:07 AM CDT 15 mg $ Given 11/24/2020 7:53 PM [...] 11/24/20 at 1020, Until 11/26/20 at 1241, Administer IV if patient is NPO, actively vomiting, or unable to swallow. oxybutynin (DITROPAN) tablet 5 mg 5 mg, Oral, 3 TIMES DAILY PRN, Bladder spasms, urinary urgency, frequency, leaking around catheter, Starting on 11/24/20 at 1020, Until 11/26/20 at 1241 $ Given 11/26/2020 10:27 AM CDT 5 mg $ Given 11/26/2020 4:29 AM CDT 5 mg $ Given 11/25/2020 10:48 PM CDT 5 mg oxyCODONE (immediate release) (ROXICODONE) tablet 10 mg 10 mg, Oral, EVERY 6 HOURS PRN, Severe Pain, Starting on 11/24/20 at 1020, Until 11/26/20 at 1241 $ Given 11/26/2020 8:46 AM [...] RN) 0631 ($ Given - Provider: Caroline Regalado, RAZIA) acetaminophen (TYLENOL) tablet 975 mg 975 mg, Oral, EVERY 8 HOURS, 1095 doses, First dose on 11/24/20 at 1400, Last dose on 11/24/21 at 0600 1449 (Not Administered - Provider: Юлия Gale RN - Reason: NPO)2221 ($ Given - Provider: Caroline Regalado, RAZIA) 0735 (Not Administered - Provider: Caroline Regalado RN - Reason: NPO - Comment: or today)1455 (Canceled Entry - Provider: Юлия Gale RN)211 ($ Given - Provider: Randi Olson RN) [...] Caroline Regalado RN)2335 (Stopped - Provider: Caroline Regalado, RAZIA) 1155 ($ New Bag/Syringe - Provider: Юлия [...] 1236 ($ Given - Provider: Myron Lizama RN)195 ($ Given - Provider: Caroline Regalado, RAZIA) 0842 ($ Given - Provider: Юлия Gale, RAZIA)2003 ($ Given - Provider: Caroline Regalado RN) 0846 ($ Given - Provider: Logan De La Rosa RN) HYDROmorphone (DILAUDID) injection 0.5 mg (COMPLETED) 0.5 mg, Intravenous, NOW, 1 dose, On 11/24/20 at 0615 0631 ($ Given - Provider: Nadiya Owens, RN) HYDROmorphone (DILAUDID) injection 0.5 mg (COMPLETED) 0.5 mg, Intravenous, NOW, 1 dose, On 11/24/20 at 0945 0955 ($ Given - Provider: Nadiya Owens, RN) potassium chloride ER (KLOR-CON M) tablet 40 mEq (COMPLETED) 40 mEq, Oral, ONCE, 1 dose, On 11/24/20 at 2015, Do not crush or chew. 2026 ($ Given - Provider: Caroline Regaldao, RAZIA) tamsulosin (FLOMAX) capsule 0.4 mg 0.4 mg, Oral, DAILY, 365 doses, First dose on 11/24/20 at 1030, Last dose on 11/23/21 at 0900, At the same time every day after a meal. Do not crush, chew 1237 ($ Given - Provider: Myron Lizama RN) 0842 ($ Given - Provider: Юлия Gale RN) 0846 ($ Given - Provider: Logan De La Rosa, RAZIA) Continuous Medication Order 11/24/2020 11/25/2020 11/26/2020 0.9% NaCl with potassium chloride 20 mEq infusion (CANCELED) at 100 mL/hr, Intravenous, CONTINUOUS, Starting on 11/24/20 at 2000, Until 11/26/20 at 0909 2225 ($ New Bag/Syringe - Provider: Caroline Regalado, RAZIA)2229 (Current Rate - Provider: Caroline Regalado, RAZIA) 0611 (Current Rate - Provider: Caroline Regalado, RAZIA) 0849 ($ New Bag/Syringe - Provider: Logan De La Rosa, RN) lactated ringers infusion (CANCELED) 125 mL/hr, Intravenous, [...] from the line or to verify patency. 1952 ($ Given - Provider: Caroline Regalado RN) 0206 ($ Given - Provider: Caroline Regalado RN) calcium carbonate (500mg Ca /5 mL) suspension 500 mg, Oral, EVERY 4 HOURS PRN, Heartburn, GI Upset, Starting on 11/24/20 at 1126, Until Thu11/26/20 at 1241, Shake well before using. diphenhydrAMINE (BENADRYL) capsule 25 mg 25 mg, Oral, EVERY 4 HOURS PRN, Insomnia, Itching, 365 doses, Starting on 11/24/20 at 1020, Until Thu11/26/20 at 1241 0101 ($ Given - Provider: [...] alternative, Starting on 11/24/20 at 1844, Until Thu11/26/20 at 0909 1906 ($ Given - Provider: Юлия Gale RN)2311 ($ Given - Provider: Caroline Regalado RN) 0221 ($ Given - Provider: Caroline Regalado RN)0843 ($ Given - Provider: Юлия Gale RN)1154 ($ Given - Provider: Юлия Gale RN)1720 ($ Given - Provider: Юлия Gale RN)2001 ($ Given - Provider: Caroline Regalado, RAZIA) 0032 ($ Given - Provider: Caroline Regalado, RAZIA) iohexol (OMNIPAQUE 300) contrast (CANCELED) PRN, Starting [...] 11/24/20 at 1020, Until 11/26/20 at 1241, Administer IV if patient is NPO, actively vomiting, or unable to swallow. oxybutynin (DITROPAN) tablet 5 mg 5 mg, Oral, 3 TIMES DAILY PRN, Bladder spasms, urinary urgency, frequency, leaking around catheter, Starting on 11/24/20 at 1020, Until 11/26/20 at 1241 2248 ($ Given - Provider: Caroline Regalado RN) 0429 ($ Given - Provider: Caroline Regalado RN)1027 ($ Given - Provider: Logan De La Rosa RN) oxyCODONE (immediate release) (ROXICODONE) tablet 10 mg(Linked Group 2) 10 mg, Oral, EVERY 6 HOURS PRN, Severe Pain, Starting on 11/24/20 at 1020, Until Thu11/26/20 at 1241 0842 ($ Given - Provider: Юлия Gale RN)2111 ($ Given - Provider: Randi Olson, RAZIA) 0429 ($ Given - Provider: Caroline Regalado, RAZIA)0846 ($ Given - Provider: Logan De La Rosa, RAZIA) oxyCODONE (immediate release) (ROXICODONE) tablet 5 mg(Linked Group 2) 5 mg, Oral, EVERY 6 HOURS PRN, Moderate Pain, Starting on 11/24/20 at 1020, Until Thu11/26/20 at 1241 0842 (See Alternative - Provider: Юлия Gale RN)2111 (See Alternative - Provider: Randi Olson RN) 0429 (See Alternative - Provider: Caroline Regalado, [...] 11/24/20 at 1020, Until Thu11/26/20 at 1241 Or oxyCODONE (immediate release) (ROXICODONE) tablet 5 mgJump to med 5 mg, Oral, EVERY 6 HOURS PRN, Moderate Pain, Starting on 11/24/20 at 1020, Until 11/26/20 at 1241 documented in this encounter Care Teams Fire Inspector Relationship Specialty Start Date End Date Rema Austin MD [address] [place] [phone] PCP - General Family Medicine 11/24/20 02/20/21 documented as of this encounter
--- OUTSIDE RECORDS SUMMARY | 2024-09-25 11:47 | XMS_ITS | Encounter Summary ---
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 Pain constant, increases w/ movement and inspiration. Lightheaded. Episode SOB today. Encounter Details Date Type Department Care Team (Late st Contact Info) Description 02/02/2019 5:15 PM CDT - 02/02/2019 9:22 PM CDT Emergency ER at [facility] [address] [place] [id number] Karen Hagan, DO [address] [place] [address] Other chest pain; Elevated d-dimer Discharge Disposition: Home or Self Care Social [...] Sign Reading Time Taken Comments Blood Pressure 121/75 02/02/2019 9:00 PM CDT Pulse 76 02/02/2019 9:00 PM CDT Temperature 37.2 ??C (98.9 ??F) 02/02/2019 9:00 PM CD T Respiratory Rate 16 02/02/2019 9:00 PM CDT Oxygen Saturation 100% 02/02/2019 9:00 PM CDT Inhaled Oxygen Concentration - - Weight 85.7 kg (189 lb) 02/02/2019 3:11 PM CDT Height 160 cm (5' 3 ) 02/02/2019 3:11 PM CDT Body Mass Index 33.48 02/02/2019 3:11 PM CDT documented in this encounter Functional [...] this encounter Discharge Instructions * Discharge Instructions* Karen Hagan, DO - 02/02/2019 8:54 PM CDT Images from the original note were not included. Please return to the emergency department for worsening pain, vomiting, cough, fever or any new, worsening, or concerning symptoms. Chest Pain WHAT YOU NEED TO KNOW: What causes chest pain? Chest pain can be caused by a range of conditions, from not serious to life-threatening. Chest pain can be a symptom of a digestive problem, such as acid reflux or a stomach ulcer. An anxiety attack or a strong emotion, such as anger, can also cause chest pain. Infection, inflammation, or a fracture in the bones or cartilage in your chest can cause pain or discomfort. Sometimes chest pain or pressure is caused by poor blood flow to your heart (angina). Chest pain may also be caused by life-threatening conditions such as a heart attack or blood clot in your lungs. What other symptoms might I have with chest pain? ?? A burning feeling behind your breastbone ?? A racing or slow heartbeat ?? Fever or sweating ?? Nausea or vomiting ?? Shortness of breath ?? Discomfort or pressure that spreads from your chest to your back, jaw, or arm ?? Feeling weak, tired, or faint How is the cause of chest pain diagnosed? Your healthcare provider will examine you. Describe your chest pain in as much detail as possible. Tell him or her where your pain is and when it began. Tellthe provider if you notice anything that makes the pain worse or better. Tell him or her if it is constant or comes and goes. Your healthcare provider will ask about any medicines you use and medicalconditions you have. He or she will also examine you. You may also need any of the following tests: ?? An EKG is a test that records your heart's electrical activity. ?? Blood tests check for heart damage and signs of a heart attack. ?? An echocardiogram uses sound waves to see if blood is flowing normally through your heart. ?? An ultrasound, x-ray, CT, or MRI scan may show the cause of your chest pain. You may be given contrast liquid to help your heart show up better in the pictures. Tell the healthcare provider if youhave ever had an allergic reaction to contrast liquid. Do not enter the MRI room with anything metal. Metal can cause serious injury. Tell the healthcare provider if you have any metal in or on your body. ?? An endoscopy may be done to check for ulcers or problem with your esophagus. How is chest pain treated? Medicines may be given to treat the cause of your chest pain. Examples include pain medicine, anxiety medicine, or medicines to increase blood flow to your heart. Do not take certain medicines without asking your healthcare provider first. These include NSAIDs, herbal or vitamin supplements, or hormones (estrogen or progestin). You may need to have one or more stents placed if your chest pain is caused by blockage in your heart. A stent is a wire mesh tube that helps hold your artery open. What are some healthy living tips? The following are general healthy guidelines. If your chest painis caused by a heart problem, your healthcare provider will give you specific guidelines to follow. ?? Do not smoke. Nicotine and other chemicals in cigarettes and cigars can cause lung and heart damage. Ask your healthcare provider for information if you currently smoke and need help to quit. E-cigarettes or smokeless tobacco still contain nicotine. Talk to your healthcare provider before you use these products. ?? Eat a variety of healthy, low-fat and low-salt foods. Healthy foods include fruits, vegetables, whole-grain breads, low-fat dairy products, beans, lean meats, and fish. Ask for more information about a heart healthy diet. ?? Drink plenty of water every day. Your body is made of mostly water. Water helps your body to control your temperature and blood pressure. Ask your healthcare provider how much water you should drink every day. ?? Ask about activity. Your healthcare provider will tell you which activities to limit or avoid. Ask when you can drive, return to work, and have sex. Ask about the best exercise plan for you. ?? Maintain a healthy weight. Ask your healthcare provider how much you should weigh. Ask him or her to help you create a weight loss plan if you are overweight. Call 911 if: ?? You have any of the following signs of a heart attack: ?? Squeezing, pressure, or pain in your chest ?? and any of the following: ?? Discomfort or pain in your back, neck, jaw, stomach, or arm ?? Shortness of breath ?? Nausea or vomiting ?? Lightheadedness or a sudden cold sweat When should I seek immediate care? ?? You have chest discomfort that gets worse, even with medicine. ?? You cough or vomit blood. ?? Your bowel movements are black or bloody. ?? You cannot stop vomiting, or it hurts to swallow. When should I contact my healthcare provider? [...] refuse treatment. The above information is an nurse first aid only. It is not intended as medical advice for individual conditions or treatments. Talk to your doctor, nurse or pharmacist before following any medical regimen to see if it is safe and effective for you. ?? Copyright [employer] 2019 Information is for End User's use only and may not be sold, redistributed or otherwise used for commercial purposes. All illustrations and images included in CareNotes?? are the copyrighted property of [employer]. or [employer] Gastroesophageal Reflux Disease WHAT YOU NEED TO KNOW: Gastroesophageal reflux occurs when acid and food in the stomach back up into the esophagus. Gastroesophageal reflux disease (GERD) is reflux that occurs more than twice a week for a few weeks. It usually causes heartburn and other symptoms. GERD can cause other health problems over time if it is not treated. DISCHARGE INSTRUCTIONS: Return to the emergency department if: ?? You feel full and cannot burp or vomit. ?? You have severe chest pain and sudden trouble breathing. ?? Your bowel movements are black, bloody, or tarry-looking. ?? Your vomit looks like coffee grounds or has blood in it. Contact your healthcare provider if: ?? You vomit large amounts, or you vomit often. ?? You have trouble breathing after you vomit. ?? You have trouble swallowing, or pain with swallowing. ?? You are losing weight without trying. ?? Your symptoms get worse or do not improve with treatment. ?? You have questions or concerns about your condition or care. Medicines: ?? Medicines are used to decrease stomach acid. Medicine may also be used to help your lower esophageal sphincter and stomach contract (tighten) more. ?? Take your medicine as directed. Contact your healthcare provider if you think your medicine is not helping or if you have side effects. Tell him of her if you are allergic to any medicine. Keep a list of the medicines, vitamins, and herbs you take. Include the amounts, and when and why you take them. Bring the list or the pill bottles to follow-up visits. Carry your medicine list with you in case of an emergency. Manage GERD: ?? Do not have foods or drinks that may increase heartburn. These include chocolate, peppermint, fried or fatty foods, drinks that contain caffeine, or carbonated drinks (soda). Other foods include spicy foods, onions, tomatoes, and tomato-based foods. Do not have foods or drinks that can irritate your esophagus, such as citrus fruits, juices, and alcohol. ?? Do not eat large meals. When you eat a lot of food at one time, your stomach needs more acid to digest it. Eat 6 small meals each day instead of 3 large ones, and eat slowly. Do not eat meals 2 to3 hours before bedtime. ?? Elevate the head of your bed. Place 6-inch blocks under the head of your bed frame. You may also use more than one pillow under your head and shoulders while you sleep. ?? Maintain a healthy weight. If you are overweight, weight loss may help relieve symptoms of GERD. ?? Do not smoke. Smoking weakens the lower esophageal sphincter and increases the risk of GERD. Askyour healthcare provider for information if you currently smoke and need help to quit. E-cigarettesor smokeless tobacco still contain nicotine. Talk to your healthcare provider before you use these products. ?? Do not wear clothing that is tight around your waist. Tight clothing can put pressure on your stomach and cause or worsen GERD symptoms. Follow up with your healthcare provider as directed: Write down your questions so you remember to ask them during your visits. ?? Copyright [employer] 2019 Information is for End User's use only and may not be sold, redistributed or otherwise used for commercial purposes. All illustrations and images included in CareNotes?? are the copyrighted property of [employer]. or [employer] The above information is an nurse first aid only. It is not intended as medical advice for individual conditions or treatments. Talk to your doctor, nurse or pharmacist before following any medical regimen to see if it is safe and effective for you. documented in this encounter Medications at Time of Discharge Medication Sig Dispensed Refills Start Date End Date albuterol HFA (PROVENTIL;VENTOLIN;PRO AIR) 108 (90 BASE) [...] as of this encounter ED Notes * Montserrat Hickman RN - 02/02/2019 9:21 PM CDT Patient discharge instructions and medications reviewed with RN and MD at bedside. Patient verbalize understanding. Patient left ED ambulatory to home care oriented x 4 * Montserrat Hickman RN - 02/02/2019 8:03 PM CDT Pt to CT via stretcher. * Montserrat Hickman RN - 02/02/2019 6:20 PM CDT Meds given per MAR. Will continue to monitor. * Montserrat Hickman RN - 02/02/2019 6:00 PM CDT Pt presents to the ED with chest pain radiates down the left arm X1-2 days. Pt reports chest discomfort and heart burn when ambulating X1 week. Pt reports she is also having pain behind the left knee. Pt oriented X4 and ambulates without assistance. Pt placed on monitor. Call light in reach. Will continue to monitor. * Karen Hagan DO - 02/02/2019 5:26 PM CDT Provider contact with the patient: 02/02/2019 20:17 Jumana Rivers [id number] [facility] EMERGENCY DEPARTMENT History Chief Complaint Patient presents with ??? Chest Pain Pain left chest w/ radiation to left arm since yesterday. Pain constant, increases w/ movement and inspiration. Lightheaded. Episode SOB today. HPI Comments: Jumana Rivers is a 28 year old female with history of asthma, migraines, horseshoe kidney, and kidney stones presenting to the ED with chief complaint of left-sided chest pain that started yesterday morning. The pain is intermittent, sharp, aching, and radiates down her left arm. She reports associated heartburn for the past week that is unrelieved by TUMs or Pepcid. She also notes a moderate headache, dyspnea on exertion, and pain to the back of her left leg, all of which started yesterday. She tried taking aspirin with no relief. She denies any fever, chills, or abdominal pain. She denies any recent surgeries or travel. FHx: cardiac arrest caused by blood clot (maternal cousin), HTN (mother, grandmother) PSHx: lithotripsy PCP No primary care provider on file. Past [...] Smoking status: Current Every Day Smoker Packs/day: 1.00 Types: Cigarettes ??? Smokeless tobacco: Never Used ??? Alcohol use 0.0 oz/week 0 Standard drinks or equivalent per week Comment: occ ??? Drug use: Yes Special: Marijuana ??? Sexual activity: Not on file Other Topics Concern ??? Not on file Social History Narrative Review of Systems Review of Systems Constitutional: Negative for chills and fever. HENT: Negative for sore throat. Eyes: Negative for blurred vision and photophobia. Respiratory: Positive for shortness of breath. Negative for cough and wheezing. Cardiovascular: Positive for chest pain. Negative for leg swelling. Gastrointestinal: Positive for heartburn. Negative for abdominal pain, constipation, diarrhea, nausea and vomiting. Genitourinary: Negative for dysuria, frequency and urgency. Musculoskeletal: Negative for falls and myalgias. (+) left leg pain Skin: Negative for rash. Neurological: Positive for headaches. Negative for dizziness, seizures and loss of consciousness. Psychiatric/Behavioral: Negative for depression and suicidal ideas. Physical Exam BP 121/75 Pulse 76 Temp 98.9 ??F (37.2 ??C) Resp 16 Ht 1.6 m (5' 3 ) Wt 85.7 kg (189 lb) LMP 02/02/2019 (Approximate) SpO2 100% BMI 33.48 kg/m2 Physical Exam Constitutional: She is oriented to person, place, and time. She appears well- developed and well-nourished. HENT: Head: Normocephalic and atraumatic. Eyes: EOM are normal. Cardiovascular: Normal rate, regular rhythm, normal heart sounds and intact distal pulses. No murmur heard. Pulmonary/Chest: Effort normal and breath sounds normal. No respiratory distress. Abdominal: Soft. Bowel sounds are normal. She exhibits no distension. There is no tenderness. Thereis no rebound and no guarding. Musculoskeletal: Normal range of motion. She exhibits no edema. Left posterior knee tenderness, ligaments grossly stable, no effusion Neurological: She is alert and oriented to person, place, and time. Skin: Skin is warm and dry. No rash noted. Psychiatric: She has a normal mood and affect. Her behavior is normal. Judgment and thought contentnormal. Nursing note and vitals reviewed. Medications Current Outpatient Prescriptions Medication Sig Dispense Refill ??? albuterol HFA (PROVENTIL;VENTOLIN;PROAIR) 108 (90 BASE) MCG/ACT inhaler Inhale 2 Puffs by mouthevery 6 hours as needed Reported on 10/23/2016 ??? pantoprazole EC (PROTONIX) 40 MG tablet Take 1 tablet by mouth once daily 30 tablet 0 ? ? sucralfate (CARAFATE) 1 GM tablet Take 1 tablet by mouth 4 times daily - before meals & nightly 30 tablet 0 Procedures Procedures ECG Interpretation Date/Time: 02/02/2019 3:13 PM Interpreted by ED provider Comparison: not compared with previous ECG Rhythm: sinus rhythm Ectopy: none Rate: normal BPM: 87 QRS axis: normal Conduction: conduction normal ST Segments: ST segments normal T Waves: T waves normal Other: no other findings Clinical impression: normal ECG ECG Rhythm Interpretation Lab Interpretation Oxygen Saturation Interpretation The oxygen saturation level is: 100%. The patient was on Room Air for the saturation measurement. Measurement frequency: Spot Check. Oxygen saturation interpretation is Normal. Intervention(s) used: None. Hospital Encounter on 02/02/19 TROPONIN I Result Value Ref Range Troponin I <0.010 <0.038 ng/mL TROPONIN I Result Value Ref Range Troponin I <0.010 <0.038 ng/mL CBC W AUTO DIFFERENTIAL Result Value Ref Range WBC 7.3 4.4 - 10.7 x10E9/L WBC Corrected x10E9/L RBC 4.55 3.80 - 5.20 x10E12/L Hemoglobin 10.4 (L) 12.0 - 15.6 gm/dL Hematocrit 34.5 (L) 35.9 - 45.5 % MCV 75.8 (L) 80.7 - 98.3 fl MCH 22.9 (L) 26.7 - 34.0 pg MCHC 30.1 (L) 30.8 - 35.9 gm/dL Platelet Count 397 153 - 416 x10E9/L RDW-CV 18.1 (H) 12.1 - 14.9 % MPV 9.0 (L) 9.4 - 12.9 fl Neutrophils % 53.3 44.0 - 73.0 % Lymphocytes % 27.9 20.0 - 43.0 % Monocytes % 11.2 5.0 - 13.0 % Eosinophils % 5.9 0.0 - 6.0 % Basophils % 1.1 0.0 - 2.0 % Immature Granulocytes 0.6 0 - 1 % Neutrophil Absolute 3.87 2.01 - 7.14 x10E9/L Lymphocytes Absolute 2.02 1.07 - 3.94 x10E9/L Monocytes Absolute 0.81 0.26 - 1.07 x10E9/L Eosinophils Absolute 0.43 0 - 0.47 x10E9/L Basophils Absolute 0.08 0 - 0.08 x10E9/L Immature Granulocytes Absolute 0.04 0.00 - 0.06 x10E9/L nRBC Auto 0 /100 WBC COMPREHENSIVE METABOLIC PANEL Result Value Ref Range Glucose 92 74 - 106 mg/dL Sodium 140 136 - 145 mmol/L Potassium 3.9 3.5 - 5.1 mmol/L Chloride 109 (H) 98 - 107 mmol/L CO2 22 (L) 23 - 31 mmol/L Calcium 9.2 8.4 - 10.2 mg/dL Anion Gap 9 8 - 16 mmol/L BUN 10 7 - 18.7 mg/dL Creatinine 0.67 0.55 - 1.02 mg/dL Alkaline Phosphatase 56 40 - 150 U/L ALT 8 (L) 13 - 61 U/L AST 15 5 - 34 U/L Protein Total 7.4 6.4 - 8.3 gm/dL Albumin 4.3 3.5 - 5.2 gm/dL Bilirubin Total 0.3 0.2 - 1.0 mg/dL eGFR by MDRD >60 >60 mL/min/1.73m2 eGFR by MDRD >60 >60 mL/min/1.73m2 HCG URINE QUAL POCT NOTIFICATION Result Value Ref Range Comment Notification Label Only - See Separate Report D-DIMER Result Value Ref Range D-Dimer 0.64 (H) 0.17 - 0.5 mg/L FEU URINALYSIS REFLEX MICROSCOPIC REFLEX CULTURE Result Value Ref Range Color UA Yellow Straw, Yellow Clarity UA Slt Cloudy (Abnormal) Clear Glucose UA Negative Negative Bilirubin UA Negative Negative Ketone UA Negative Negative Specific [place] UA 1.028 1.005 - 1.030 Blood UA 3+ (Abnormal) Negative pH UA 6.0 5.0 - 8.0 pH Protein UA 1+ (Abnormal) Negative Urobilinogen UA Negative Negative mg/dL Nitrite UA Negative Negative Leukocyte UA Trace (Abnormal) Negative Urine Microscopy Urine microscopy to follow Reflex Status Culture to follow URINE MICROSCOPIC ONLY REFLEX TO CULTURE Result Value Ref Range Reflex Status Culture to follow RBC UA >100 (Abnormal) None Seen, 0-2, 3-5 # /hpf WBC UA 11-20 (Abnormal) None Seen, 0-5 # /hpf Bacteria UA None Seen None Seen Squamous Epithelial Cells 3-5 None Seen, 0-2, 3-5 /hpf Mucus UA 4+ /LPF HCG URINE QUALITATIVE - POCT (IP) INTERFACED Result Value Ref Range HCG Qual Urine Negative Negative CT CHEST PE Final Result EXAMINATION: CT of the chest was performed [...] Rivas MD on 02/02/2019 at 8:15 PM XR CHEST PA AND LATERAL Final Result Exam: PA and lateral views of the chest. History: Other chest pain Findings/Impression: Comparison is made with the previous study of January 04, 2015. No focal consolidation, pleural effusion, or pneumothorax is identified. The cardiac silhouette and mediastinal contours are normal. Reading Radiologist: Hector Rivas MD on 02/02/2019 at 3:30 PM Progress Notes 5:26 PM: Saw and evaluated patient. Answered all patient's questions and concerns. 7:21 PM: I re-evaluated the patient???s medical condition, comfort, and provided a care update. Patient states her pain has not improved. 8:50 PM: Rechecked patient - She is resting comfortably and feeling better. I discussed the resultsof diagnostic studies, my clinical impression, and the plan for further treatment with the patient.Patient agrees with plan and discharge at this time, all questions addressed. Patient is medically stable for discharge at this time. I have given the patient instructions regarding her diagnosis, expectations, follow up, and return precautions. I explained to the patient that emergent conditions may arise and to return to the ER for new, worsening, or any persistent conditions. I've explained the importance of following up with PCP as instructed. The patient verbalized understanding of the discharge instructions. ED Course ED Course Medical Decision Making I have reviewed the: Previous Chart, Nursing Notes, Vitals. I have interpreted the following results: Labs, 12 Lead EKG, X-Ray, CT Scans and Oxygen Saturation. MDM: 28 yo F presents with heartburn symptoms and left chest pain. CXR, EKG, troponin unremarkable.Low risk HEART. Due to left knee pain and cousin with fatal PE, ddimer ordered and elevated. CTA unremarkable. Unable to order vascular study to r/o DVT at night. Patient is agreeable with following o utpatient for this, due to low suspicion (no edema, erythema). Will treat for GERD in the meantime.Discharge. Orders Placed This Encounter ??? CULTURE URINE ??? XR CHEST PA AND LATERAL ??? CT CHEST PE ??? TROPONIN I ??? TROPONIN I ??? CBC W AUTO DIFFERENTIAL ??? COMPREHENSIVE METABOLIC PANEL ??? HCG URINE QUAL POCT NOTIFICATION ??? D-DIMER ??? URINALYSIS REFLEX MICROSCOPIC REFLEX CULTURE ??? URINE MICROSCOPIC ONLY REFLEX TO CULTURE ??? OXYGEN ??? EKG 12-LEAD ??? AND Linked Order Group ??? 0.9% NaCl injection 3 mL ??? 0.9% NaCl injection 1-10 mL ??? DISCONTD: aspirin (ASPIRIN) chew tablet 324 mg ??? DISCONTD: nitroGLYCERIN (NITROSTAT) tablet 0.4 mg ??? ketorolac (TORADOL) injection 15 mg ??? pantoprazole (PROTONIX) injection 40 mg ??? iopamidol (ISOVUE 370) 76 % contrast ??? diphenhydrAMINE (BENADRYL) injection 12.5 mg ??? metoclopramide (REGLAN) injection 10 mg ??? 0.9% NaCl IV Bolus ??? 0.9% NaCl injection 0-10 mL ??? 0.9% NaCl IV Flush Bag ??? pantoprazole EC (PROTONIX) 40 MG tablet ??? sucralfate (CARAFATE) 1 GM tablet Clinical Impression Final diagnoses: Other chest pain Elevated d-dimer Vitals prior to discharge: Blood pressure 121/75, pulse 76, temperature 98.9 ??F (37.2 ??C), resp. rate 16, height 1.6 m (5' 3 ), weight 85.7 kg (189 lb), last menstrual period 02/02/2019, SpO2 100 %, not currently . New Medications: Discharge Medication List as of 02/02/2019 8:54 PM START taking these medications Details pantoprazole EC (PROTONIX) 40 MG tablet Disp-30 tablet, R-0, Take 1 tablet by mouth once daily, Print sucralfate (CARAFATE) 1 GM tablet Disp-30 tablet, R-0, Take 1 tablet by mouth 4 times daily - before meals & nightly, Print I have advised the patient to follow-up with: [facility] [id number] [facility] [id number] In 1 day Disposition: Discharged Follow-up Information Follow-up With Details Why Contact Info [facility] In 1 day [id number] [facility] [phone] User Date/Time Karen Hagan DO ThuFebruary 02, 2019 8:54 PM By signing my name below, I, Ankita Connelly, attest that this documentation has been prepared under the direction and in the presence of Dr. Hagan. Electronically Signed: Tevin Narayan. 02/02/2019 9:25 PM I, Dr. Hagan, personally performed the services described in this documentation. All medical recordentries made by the scribe were at my direction and in my presence. I have reviewed the chart and discharge instructions and agree that the record reflects my personal performance and is accurate andcomplete. Dr. Hagan, 02/02/2019 9:25 PM * Montserrat Hickman RN - 02/02/2019 5:15 PM CDT Bed: 5 Expected date: Expected time: Means of arrival: Comments: PT still in room getting dressed documented in this encounter Plan of Treatment Not on file documented as of this encounter Procedures Procedure Name Priority Date/Time Associated Diagnosis Comments CARDIAC EKG ORDER 02/03/2019 5:[address] ANGIO CHEST PULM EMBOLISM STAT 02/02/2019 8:05 PM CDT Other chest pain Elevated d-dimer TROPONIN I Timed 02/02/2019 6:10 PM CDT D-DIMER STAT 02/02/2019 6:10 PM CDT URINE MICROSCOPIC ONLY REFLEX TO CULTURE STAT 02/02/2019 5:51 PM CDT URINALYSIS REFLEX MICROSCOPIC REFLEX CULTURE STAT 02/02/2019 5:51 PM CDT CULTURE URINE STAT 02/02/2019 5:51 PM CDT HCG URINE QUALITATIVE - POCT (IP) INTERFACED Routine 02/02/2019 5:46 PM CDT HCG URINE QUAL POCT NOTIFICATION STAT 02/02/2019 5:37 PM CDT XR CHEST 2VW STAT 02/02/2019 3:27 PM CDT Other chest pain TROPONIN I STAT 02/02/2019 3:14 PM CDT CBC W AUTO DIFFERENTIAL STAT 02/02/2019 3:14 PM CDT COMPREHENSIVE METABOLIC PANEL STAT 02/02/2019 3:14 PM CDT EKG 12-LEAD STAT 02/02/2019 3:13 PM CDT Other chest pain documented in this encounter Results * CARDIAC EKG ORDER (02/03/2019 5:24 PM CDT) Narrative 02/03/2019 5:24 PM CDT Ordered by [...] PM Karen Hagan DO CT ORDERABLES * (ABNORMAL) D-DIMER (02/02/2019 6:10 PM CDT) D-Dimer 0.64(H) 0.17 - 0.5 mg/L FEU 02/02/2019 6:44 PM CDT [facility] Blood BLOOD SPECIMEN / Unknown Venipuncture / Unknown 02/02/2019 6:10 PM CDT 02/02/2019 6:23 PM CDT Narrative [facility] - 02/02/2019 6:44 PM CDT The [employer] D-Dimer assay is intended [...] medical history, clinical presentation, and other findings. Karen Hagan DO LAB - COAGULATION OR DERABLES Performing Organization Address [facility] Co de Phone Number [facility] [address] [place] [phone] * TROPONIN I (02/02/2019 6:10 PM CDT) [facility] Troponin I <0.010 <0.038 ng/mL 02/02/2019 6:47 PM CDT [facility] Blood BLOOD SPECIMEN / Unknown Venipuncture / Unknown 02/02/2019 6:10 PM CDT 02/02/2019 6:23 PM CDT Narrative [facility] - 02/02/2019 6:47 PM [...] changed Karen Hagan DO LAB - CHEMISTRY ORDE RABLES Performing Organization Address [facility] Co de Phone Number [facility] [address] [place] [address] [phone] * CULTURE URINE (02/02/2019 5:51 PM CDT) [facility] Culture Urine 10,000-50,000 CFU/mL urogenital marco CHRYSTAL 02/04/2019 2:50 PM CDT [facility] Urine URINE SPECIMEN OBTAINED BY CLEAN CATCH PROCEDURE / Unknown Collection / Unknown 02/02/2019 5:51 PM CDT 02/02/2019 5:51 PM CDT Karen Hagan DO LAB - MICROBIOLOGY O RDERABLES Performing Organization Address City/[facility]/ZIP Co de Phone Number [facility] [address] [place], [place] [address] [phone] * (ABNORMAL) URINE MICROSCOPIC ONLY REFLEX TO CULTURE (02/02/2019 5:51 PM CDT) Reflex Status Culture to follow 02/02/2019 6:10 PM CDT [facility] RBC UA >100(A) None Seen, 0-2, 3-5 # /hpf 02/02/2019 6:10 PM CDT [facility] WBC UA 11-20(A) None Seen, 0-5 # /hpf 02/02/2019 6:10 PM CDT [facility] Bacteria UA None Seen None Seen 02/02/2019 6:10 PM CDT [facility] Squamous Epithelial Cells 3-5 None Seen, 0-2, 3-5 /hpf 02/02/2019 6:10 PM CDT [facility] Mucus UA 4+ /LPF 02/02/2019 6:10 PM CDT [facility] Urine URINE SPECIMEN OBTAINED BY CLEAN CATCH PROCEDURE / Unknown Collection / Unknown 02/02/2019 5:51 PM CDT 02/02/2019 5:51 PM CDT Narrative [facility] - 02/02/2019 6:10 PM CDT Karen Hagan DO LAB - URINALYSIS ORD ERABLES [facility] [address] [place] [address] * (ABNORMAL) URINALYSIS REFLEX MICROSCOPIC REFLEX CULTURE (02/02/2019 5:51 PM CDT) Color UA Yellow Straw, Yellow 02/02/2019 6:10 PM CDT [facility] Clarity UA Slt Cloudy(A) Clear 02/02/2019 6:10 PM CDT [facility] Glucose UA Negative Negative 02/02/2019 6:10 PM CDT [facility] Bilirubin UA Negative Negative 02/02/2019 6:10 PM CDT [facility] Ketone UA Negative Negative 02/02/2019 6:10 PM CDT [facility] Specific [place] UA 1.028 1.005 - 1.030 02/02/2019 6:10 PM CDT [facility] Blood UA 3+(A) Negative 02/02/2019 6:10 PM CDT [facility] pH UA 6.0 5.0 - 8.0 pH 02/02/2019 6:10 PM CDT [facility] Protein UA 1+(A) Negative 02/02/2019 6:10 PM CDT [facility] Urobilinogen UA Negative Negative mg/dL 02/02/2019 6:10 PM CDT [facility] Nitrite UA Negative Negative 02/02/2019 6:10 PM CDT [facility] Leukocyte UA Trace(A) Negative 02/02/2019 6:10 PM CDT [facility] Urine Microscopy Urine microscopy to follow 02/02/2019 6:10 PM CDT [facility] Reflex Status Culture to follow 02/02/2019 6:10 PM CDT [facility] Urine URINE SPECIMEN OBTAINED BY CLEAN CATCH PROCEDURE / Unknown Collection / Unknown 02/02/2019 5:51 PM CDT 02/02/2019 5:51 PM CDT Narrative [facility] - 02/02/2019 6:10 PM CDT Ascorbic Acid can cause false negative urine strip tests for blood, glucose, nitrite, and bilirubin. Karen Hagan DO LAB - URINALYSIS ORD ERABLES [facility] [address] [place] [address] * HCG URINE QUALITATIVE - POCT (IP) INTERFACED (02/02/2019 5:46 PM CDT) HCG Qual Urine Negative Negative 02/02/2019 5:49 PM CDT [facility] Urine URINE / Unknown 02/02/2019 5 :46 PM CDT 02/02/2019 5:49 PM CDT Karen Hagan DO LAB - POINT OF CARE ORDERABLES [facility] [address] [place] [address] * HCG URINE QUAL POCT NOTIFICATION (02/02/2019 5:37 PM CDT) Comment Notification Label Only - See Separate Report 02/02/2019 7:01 PM CDT [facility] Urine URINE / Unknown 02/02/2019 5 :37 PM CDT 02/02/2019 5:37 PM CDT Karen Hagan DO LAB - URINALYSIS ORD ERABLES Performing Organization Address [facility] Co de Phone Number [facility] [address] [place] [address] * XR CHEST PA AND LATERAL (02/02/2019 3:27 PM CDT) Anatomical Region Laterality Modality Chest Radiographic Christin [...] MD on 02/02/2019 at 3:30 PM Karen M Bentley [facility] O RDERABLES * (ABNORMAL) COMPREHENSIVE METABOLIC PANEL (02/02/2019 3:14 PM CDT) Pathologist [facility] Glucose 92 74 - 106 mg/dL 02/02/2019 3:35 PM CDT [facility] Sodium 140 136 - 145 mmol/L 02/02/2019 3:35 PM CDT [facility] Potassium 3.9 3.5 - 5.1 mmol/L 02/02/2019 3:35 PM CDT [facility] Chloride 109(H) 98 - 107 mmol/L 02/02/2019 3:35 PM CDT [facility] CO2 22(L) 23 - 31 mmol/L 02/02/2019 3:35 PM CDT [facility] Calcium 9.2 8.4 - 10.2 mg/dL 02/02/2019 3:35 PM CDT [facility] Anion Gap 9 8 - 16 mmol/L 02/02/2019 3:35 PM CDT [facility] BUN 10 7 - 18.7 mg/dL 02/02/2019 3:35 PM CDT [facility] Creatinine 0.67 0.55 - 1.02 mg/dL 02/02/2019 3:35 PM CDT [facility] Alkaline Phosphatase 56 40 - 150 U/L 02/02/2019 3:35 PM CDT [facility] ALT 8(L) 13 - 61 U/L 02/02/2019 3:35 PM CDT [facility] AST 15 5 - 34 U/L 02/02/2019 3:35 PM CDT [facility] Protein Total 7.4 6.4 - 8.3 gm/dL 02/02/2019 3:35 PM CDT [facility] Albumin 4.3 3.5 - 5.2 gm/dL 02/02/2019 3:35 PM CDT [facility] Bilirubin Total 0.3 0.2 - 1.0 mg/dL 02/02/2019 3:35 PM CDT [facility] eGFR by MDRD >60 >60 mL/min/1.7 3m2 02/02/2019 3:35 PM CDT [facility] eGFR by MDRD >60 >60 mL/min/1.7 3m2 02/02/2019 3:35 PM CDT [facility] Blood BLOOD SPECIMEN / Unknown Venipuncture / Unknown 02/02/2019 3:14 PM CDT 02/02/2019 3:19 PM CDT Narrative [facility] - 02/02/2019 3:35 PM CDT Attention clinician: BUN Reference Range has changed. Karen Hagan DO LAB - CHEMISTRY JOANNA YUNG [facility] [address] [place] [address] * (ABNORMAL) CBC W AUTO DIFFERENTIAL (02/02/2019 3:14 PM CDT) WBC 7.3 4.4 - 10.7 x10E9/L 02/02/2019 3:27 PM CDT [facility] WBC Corrected x10E9/L 02/02/2019 3:27 PM CDT [facility] RBC 4.55 3.80 - 5.20 x10E12/L 02/02/2019 3:27 PM CDT [facility] Hemoglobin 10.4(L) 12.0 - 15.6 gm/dL 02/02/2019 3:27 PM CDT [facility] Hematocrit 34.5(L) 35.9 - 45.5 % 02/02/2019 3:27 PM CDT [facility] MCV 75.8(L) 80.7 - 98.3 fl 02/02/2019 3:27 PM CDT [facility] MCH 22.9(L) 26.7 - 34.0 pg 02/02/2019 3:27 PM CDT [facility] MCHC 30.1(L) 30.8 - 35.9 gm/dL 02/02/2019 3:27 PM CDT [facility] Platelet Count 397 153 - 416 x10E9/L 02/02/2019 3:27 PM CDT [facility] RDW-CV 18.1(H) 12.1 - 14.9 % 02/02/2019 3:27 PM CDT [facility] MPV 9.0(L) 9.4 - 12.9 fl 02/02/2019 3:27 PM CDT [facility] Neutrophils % 53.3 44.0 - 73.0 % 02/02/2019 3:27 PM CDT [facility] Lymphocytes % 27.9 20.0 - 43.0 % 02/02/2019 3:27 PM CDT [facility] Monocytes % 11.2 5.0 - 13.0 % 02/02/2019 3:27 PM CDT [facility] Eosinophils % 5.9 0.0 - 6.0 % 02/02/2019 3:27 PM CDT [facility] Basophils % 1.1 0.0 - 2.0 % 02/02/2019 3:27 PM CDT [facility] Immature Granulocytes 0.6 0 - 1 % 02/02/2019 3:27 PM CDT [facility] Neutrophil Absolute 3.87 2.01 - 7.14 x10E9/L 02/02/2019 3:27 PM CDT [facility] Lymphocytes Absolute 2.02 1.07 - 3.94 x10E9/L 02/02/2019 3:27 PM CDT [facility] Monocytes Absolute 0.81 0.26 - 1.07 x10E9/L 02/02/2019 3:27 PM CDT [facility] Eosinophils Absolute 0.43 0 - 0.47 x10E9/L 02/02/2019 3:27 PM CDT [facility] Basophils Absolute 0.08 0 - 0.08 x10E9/L 02/02/2019 3:27 PM CDT [facility] Immature Granulocytes Absolute 0.04 0.00 - 0.06 x10E9/L 02/02/2019 3:27 PM CDT [facility] nRBC Auto 0 /100 WBC 02/02/2019 3:27 PM CDT [facility] Blood BLOOD SPECIMEN / Unknown Venipuncture / Unknown 02/02/2019 3:14 PM CDT 02/02/2019 3:19 PM CDT Karen Hagan DO LAB - HEMATOLOGY ORD ERABLES [facility] [address] [place] [address] * TROPONIN I (02/02/2019 3:14 PM CDT) Troponin I <0.010 <0.038 ng/mL 02/02/2019 3:41 PM CDT [facility] Blood BLOOD SPECIMEN / Unknown Venipuncture / Unknown 02/02/2019 3:14 PM CDT 02/02/2019 3:19 PM CDT Narrative [facility] - 02/02/2019 3:41 PM CDT Note: Diagnosis of myocardial infarction [...] changed Karen Hagan DO LAB - CHEMISTRY ORDBoy YUNG Performing Organization Address [facility] Co de Phone Number [facility] [address] [place] [address] * EKG 12-LEAD (02/02/2019 3:13 PM CDT) Ventricular Rate 87 BPM [facility] Atrial Rate 87 BPM [facility] P-R Interval 140 ms [facility] QRS Duration ms 74 ms [facility] Q-T Interval ms 354 ms [facility] QTC Calculation (Bezet) 425 ms [facility] Calculated P [place] 63 degrees [facility] Calculated R [place] 35 degrees [facility] Calculated T [place] 30 degrees [facility] Interpretation EKG NORMAL SINUS RHYTHM NORMAL ECG WHEN COMPARED WITH ECG OF 08-MAR-2016 17:44, NO SIGNIFICANT CHANGE WAS FOUND Confirmed by MD JESS, NUSRAT Guillaume ([id number]) on 02/03/2019 7:15:49 AM [facility] 02/02/2019 3:13 PM CDT 02/03/2019 7:15 AM CDT Karen Hagan DO ECG ORDERABLES Performing Organization Address [facility] de Phone Number [facility] documented in this encounter Visit Diagnoses Diagnosis Other chest pain Elevated d-dimer Abnormal coagulation profile documented in this encounter Administered Medications Inactive Administered Medications - up to 3 most recent administrations Medication Order MAR Action Action Date Dose Rate Site 0.9% NaCl injection 0-10 mL 0-10 mL, Intracatheter, ONCE PRN, Other, Contrast flush, 1 dose, Starting on Thu02/02/19 at 1956, Until Thu02/02/19 at 2001, For administration with contrast. $ Given 02/02/2019 8:02 PM CDT 10 mL 0.9% NaCl injection 1-10 mL 1-10 mL, Intracatheter, PRN, Other, peripheral line flush, Starting on Thu02/02/19 at 1510, Until Thu02/02/19 at 2222, Flush peripheral IV catheter with 1-10 mL of normal saline before and after medications and prn to clear blood from the line or to verify patency. 0.9% NaCl injection 3 mL 3 mL, Intracatheter, EVERY 8 HOURS, 1095 doses, First dose on Thu02/02/19 at 1545, Last dose on Thu02/02/20 at 0600, Flush peripheral IV catheter with 3 mL of normal saline every 8 hours. 0.9% NaCl IV Bolus 1,000 mL, at 983.61 mL/hr, Administer over 61 Minutes, ONCE, 1 dose, On Thu02/02/19 at 1945 $ New Bag/Syringe 02/02/2019 7:46 PM CDT 1,000 mL 983.61 mL/hr 0.9% NaCl IV Flush Bag 0-100 mL, Intracatheter, ONCE PRN, Contrast flush, 1 dose, Starting on Thu02/02/19 at 1956, Until Thu02/02/19 at 2001, For administration with contrast $ Given 02/02/2019 8:02 PM CDT 100 mL diphenhydrAMINE (BENADRYL) injection 12.5 mg 12.5 mg, Intravenous, NOW, 1 dose, On Thu02/02/19 at 1930, Administer IV at a rate not exceeding 25 mg/min. Can dilute in 5-10 mL NS as needed for patient comfort. $ Given 02/02/2019 7:42 PM CDT 12.5 mg iopamidol (ISOVUE 370) 76 % contrast Intravenous, CONTRAST ONCE, Starting on Thu02/02/19 at 1915, Until Thu02/02/19 at 2222 $ Given - Contrast 02/02/2019 8:02 PM CDT 85 mL ketorolac (TORADOL) injection 15 mg 15 mg, Intravenous, NOW, 1 dose, On Thu02/02/19 at 1745 $ Given 02/02/2019 6:15 PM CDT 15 mg metoclopramide (REGLAN) injection 10 mg 10 mg, Intravenous, NOW, 1 dose, On Thu02/02/19 at 1930, Inject undiluted IV slowly over 1 to 2 minutes. $ Given 02/02/2019 7:44 PM CDT 10 mg pantoprazole (PROTONIX) injection 40 mg 40 mg, Intravenous, NOW, 1 dose, On Thu02/02/19 at 1745, For every 40 mg of pantoprazole mix with 10 mL Normal Saline (final concentration = 4 mg/mL). Inject SLOWLY over 2 min. $ Given 02/02/2019 6:14 PM CDT 40 mg documented in this encounter Active and Recently Administered Medications Times are shown in CDT. Scheduled Medication Order 01/31/2019 02/01/2019 02/02/2019 0.9% NaCl injection 3 mL(Linked Group 1) 3 mL, Intracatheter, EVERY 8 HOURS, 1095 doses, First dose on Thu02/02/19 at 1545, Last dose on Thu02/02/20 at 0600, Flush peripheral IV catheter with 3 mL of normal saline every 8 hours. 1545 (Due) 0.9% NaCl IV Bolus (COMPLETED) 1,000 mL, at 983.61 mL/hr, Administer over 61 Minutes, ONCE, 1 dose, On Thu02/02/19 at 1945 1946 ($ New Bag/Syri nge - Provider: Montserrat Hickman, RAZIA)2046 (Due: Stopped - Provider: Montserrat Hickman, RAZIA) diphenhydrAMINE (BENADRYL) injection 12.5 mg (COMPLETED) 12.5 mg, Intravenous, NOW, 1 dose, On Thu02/02/19 at 1930, Administer IV at a rate not exceeding 25 mg/min. Can dilute in 5-10 mL NS as needed for patient comfort. 1941 ($ Given - Prov ider: Montserrat Hickman, RAZIA) iopamidol (ISOVUE 370) 76 % contrast Intravenous, CONTRAST ONCE, Starting on Thu02/02/19 at 1915, Until Thu02/02/19 at 2221 2001 ($ Given - Cont rast - Provider: Nadiya Benitez) ketorolac (TORADOL) injection 15 mg (COMPLETED) 15 mg, Intravenous, NOW, 1 dose, On Thu02/02/19 at 1745 181 ($ Given - Prov ider: Montserrat Hickman RN) metoclopramide (REGLAN) injection 10 mg (COMPLETED) 10 mg, Intravenous, NOW, 1 dose, On Thu02/02/19 at 1930, Inject undiluted IV slowly over 1 to 2 minutes. 194 ($ Given - Prov ider: Montserrat Hickman RN) pantoprazole (PROTONIX) injection 40 mg (COMPLETED) 40 mg, Intravenous, NOW, 1 dose, On Thu02/02/19 at 1745, For every 40 mg of pantoprazole mix with 10 mL Normal Saline (final concentration = 4 mg/mL). Inject SLOWLY over 2 min. 1813 ($ Given - Prov ider: Montserrat Hickman RN) PRN Medication Order 01/31/2019 02/01/2019 02/02/2019 0.9% NaCl injection 0-10 mL (COMPLETED) 0-10 mL, Intracatheter, ONCE PRN, Other, Contrast flush, 1 dose, Starting on Thu02/02/19 at 1956, Until Thu02/02/19 at 2001, For administration with contrast. 2001 ($ Given - Prov ider: Nadiya Benitez) 0.9% NaCl injection 1-10 mL(Linked Group 1) 1-10 mL, Intracatheter, PRN, Other, peripheral line flush, Starting on Thu02/02/19 at 1510, Until Thu02/02/19 at 2222, Flush peripheral IV catheter with 1-10 mL of normal saline before and after medications and prn to clear blood from the line or to verify patency. 0.9% NaCl IV Flush Bag (COMPLETED) 0-100 mL, Intracatheter, ONCE PRN, Contrast flush, 1 dose, Starting on Thu02/02/19 at 1956, Until Thu02/02/19 at 2001, For administration with contrast 2001 ($ Given - Prov ider: Nadiya Benitez) Linked Groups Order Group 1: SALINE LOCK, INSERT AND MAINTAIN (COMPLETED) Routine, CONTINUOUS, Starting on Thu02/02/19 at 1515, Until Specified, New collection And 0.9% NaCl injection 3 mLJump to med 3 mL, Intracatheter, EVERY 8 HOURS, 1095 doses, First dose on Thu02/02/19 at 1545, Last dose on Emma 02/02/20 at 0600, Flush peripheral IV catheter with 3 mL of normal saline every 8 hours. And 0.9% NaCl injection 1-10 mLJump to med 1-10 mL, Intracatheter, PRN, Other, peripheral line flush, Starting on Thu02/02/19 at 1510, Until Thu02/02/19 at 2222, Flush peripheral IV catheter with 1-10 mL of normal saline before and after medications and prn to clear blood from the line or to verify patency. documented in this encounter
--- OUTSIDE RECORDS SUMMARY | 2024-09-25 11:47 | XMS_ITS | Encounter Summary ---
Author Organization [facility] Address [address] [place] [address] Care Team Providers Care Shot Lighter Name Role Phone Unavailable Primary Care Provider Unavailabl e Reason for Visit * Reason Comments Eye Problem irritation both eyes for one week/no reddness or tearing noted/pt states having drainage in right eye/hx allergies Encounter Details Date Type Department Care Team (Late st Contact Info) Description 10/13/2017 11:33 AM INSURANCE EXAMINER - 10/13/2017 12:29 PM INSURANCE EXAMINER Emergency ER at [facility] [address] [place] [id number] Lalo Frausto MD [address] [place] [address] [place] [address] Conjunctivitis of both eyes, unspecified conjunctivitis type Discharge Disposition: Home or Self Care Social [...] Sign Reading Time Taken Comments Blood Pressure 128/82 10/13/2017 11:10 AM INSURANCE EXAMINER Pulse 94 10/13/2017 11:10 AM INSURANCE EXAMINER Temperature 36.9 ??C (98.5 ??F) 10/13/2017 11:[address] Respiratory Rate 16 10/13/2017 11:10 AM INSURANCE EXAMINER Oxygen Saturation 100% 10/13/2017 11:10 AM INSURANCE EXAMINER Inhaled Oxygen Concentration - - Weight 85.7 kg (189 lb) 10/13/2017 11:10 AM INSURANCE EXAMINER Height 162.6 cm (5' 4 ) 10/13/2017 11:10 AM INSURANCE EXAMINER Body Mass Index 32.44 10/13/2017 11:10 AM INSURANCE EXAMINER documented in this encounter Functional Status Functional [...] this encounter Discharge Instructions * Discharge Instructions* Lalo Frausto MD - 10/13/2017 12:16 PM INSURANCE EXAMINER Images from the original note were not [...] mascara and other eye makeup. ?? 2017 [employer] Information is for End User's use only and may not be sold, redistributed or otherwise used for commercial purposes. All illustrations and images included in CareNotes?? are the copyrighted property of [employer] or [employer]. The above information is an food aide only. It is not intended as medical advice for individual conditions or treatments. Talk to your doctor, nurse or pharmacist before following any medical regimen to see if it is safe and effective for you. RANCE EXAMINER documented in this encounter Medications at Time of Discharge Medication Sig Dispensed Refills Start Date End Date albuterol HFA (PROVENTIL;VENTOLIN;PROA IR) 108 (90 BASE) MCG/ACT inhaler Inhale 2 Puffs by mouth every 6 hours as needed Reported on 10/23/2016 02/21/2021 ciprofloxacin 0.3% (CILOXAN) 0.3 % ophthalmic solution Instill 1 drop into both eyes every 4 hours for 5 days 5 mL 10/13/2017 10/18/2017 documented as of this encounter ED Notes * Lalo Frausto MD - 10/13/2017 11:51 AM CST Provider contact with the patient: 10/13/2017 11:51 Jumana Rivers [id number] [facility] EMERGENCY DEPARTMENT History Chief Complaint Patient presents with ??? Eye Problem irritation both eyes for one week/no reddness or tearing noted/pt states having drainage in right eye/hx allergies HPI Comments: Jumana Rivers is a 27 y.o. female with a Hx of asthma who presents to the ED which a chief complaint of bL eye pain, that has been ongoing for the past 1 week. The pain is mild, described as drainage, and worsens with scratching her eye. Associated symptoms include yellow mucus discharge from both eyes and bilateral eye redness. She was seen in the ED for similar symptoms 2 weeks ago, told she had pink eye, and given eye drops which resolved the symptoms, but later recurred a few days after. Past Medical History: Diagnosis Date ??? Asthma [...] Systems Review of Systems Constitutional: Negative for chills, fever and weight loss. HENT: Negative for hearing loss and tinnitus. Eyes: Positive for pain, discharge and redness. Negative for blurred vision and double vision. Respiratory: Negative for cough, hemoptysis and sputum production. Cardiovascular: Negative for chest pain, palpitations, orthopnea, claudication and leg swelling. Gastrointestinal: Negative for abdominal pain, diarrhea, nausea and vomiting. Genitourinary: Negative for dysuria, frequency, hematuria and urgency. Musculoskeletal: Negative for back pain, joint pain, myalgias and neck pain. Skin: Negative for itching and rash. Neurological: Negative for dizziness and headaches. Endo/Heme/Allergies: Does not bruise/bleed easily. Psychiatric/Behavioral: Negative for depression. Physical Exam BP 128/82 Pulse 94 Temp 98.5 ??F Resp 16 Ht 1.626 m (5' 4 ) Wt 85.7 kg (189 lb) LMP 10/11/2017 (Exact Date) SpO2 100% BMI 32.44 kg/m2 Physical Exam Constitutional: She is oriented to person, place, and time. She appears well- developed and well-nourished. HENT: Head: Normocephalic and atraumatic. PERRLA, EOMI bL. Visual Acuity 20/40 bL (pt not wearing her corrective lenses). No periorbital swelling or erythema.No pain with extra-ocular movements. Eyes: Conjunctivae and EOM are normal. Pupils are equal, round, and reactive to light. Slit lamp exam: The right eye shows no corneal abrasion and no corneal ulcer. The left eye shows no corneal abrasion and no corneal ulcer. 20/20 vision. Neck: Normal range of motion. Neck supple. No JVD present. No tracheal deviation present. No thyromegaly present. Cardiovascular: Normal rate, regular rhythm and normal heart sounds. Exam reveals no friction rub. No murmur heard. Pulmonary/Chest: Effort normal and breath sounds normal. No stridor. No respiratory distress. She has no wheezes. Abdominal: Soft. Bowel sounds are normal. She exhibits no distension and no mass. There is no tenderness. There is no rebound and no guarding. No rebound/guarding, fully compressible all 4 quadrants. Musculoskeletal: Normal range of motion. She exhibits no edema or tenderness. Neurological: She is alert and oriented to person, place, and time. She displays normal reflexes. No cranial nerve deficit. She exhibits normal muscle tone. Coordination normal. Skin: Skin is warm and dry. No erythema. No pallor. Psychiatric: She has a normal mood and affect. Nursing note and vitals reviewed. Medications Current Outpatient Prescriptions Medication Sig Dispense Refill ??? ciprofloxacin 0.3% (CILOXAN) 0.3 % ophthalmic solution Instill 1 drop into both eyes every 4 hours for 5 days 5 mL 0 ??? albuterol HFA (PROVENTIL;VENTOLIN;PROAIR) 108 (90 [...] No results found for this visit on 10/13/17. No orders to display Progress Notes 11:56 AM: Initial plan: Will examine with slit lamp. Answered all of patient's questions and concerns. Patient verbalizes understanding and agrees with plan of care at this time. 12:16 PM: Slit lamp examination with tetracaine and fluorescein performed, no signs of abrasion/ulcer/FB. Will start pt on eye gtts for presumed conjunctivitis with ophtho f/u. 12:16 PM: Rechecked pt -patient resting comfortably. Discussed need for continued ophthalmology f/u. I discussed the results of diagnostic studies, [...] the discharge instructions. ED Course ED Course Differential Diagnosis: Medical Decision Making I have reviewed the: Previous Chart, Nursing Notes, Vitals. I have interpreted the following results: Oxygen Saturation. Differential Diagnosis: Conjunctivitis Corneal abrasion/ulcer FB Glaucoma (doubt) Orders Placed This Encounter ??? DISCONTD: tetracaine 0.5% 0.5 % ophthalmic solution 1 drop ??? DISCONTD: fluorescein (FUL-KONSTANTIN) ophthalmic strip 1 strip ??? ciprofloxacin 0.3% (CILOXAN) 0.3 % ophthalmic solution Clinical Impression Final diagnoses: Conjunctivitis of both eyes, unspecified conjunctivitis type New Medications: Discharge Medication List as of 10/13/2017 12:16 PM START taking these medications Details ciprofloxacin 0.3% (CILOXAN) 0.3 % ophthalmic solution Disp-5 mL, R-0, Instill 1 drop into both eyes every 4 hours for 5 days, Print I have advised the patient to follow-up with: [facility] Emergency Department [address] [place] [id number] As needed, If symptoms worsen Lucas Alatorre MD [address] [place] [address] Schedule an appointment as soon as possible for a visit Disposition: Discharged By signing my name below, I, Nik Montana, attest that this documentation has been prepared under the direction and in the presence of Dr. Frausto. Electronically Signed: Tevin Esparza. 10/13/2017 12:16 PM I, Dr. Frausto, personally performed the services described in this documentation. All medical record entries made by the scribe were at my direction and in my presence. I have reviewed the chart and discharge instructions and agree that the record reflects my personal performance and is accurate and complete. Dr. Lalo Frausto MD , 10/13/2017 12:16 PM RANCE EXAMINER * Jayjay Roberts EMT-P - 10/13/2017 11:39 AM CST Patient presents with complaint of bilateral eye irritation, itching, watering and mucoid drainage.The patient states that she had the same symptoms isolated to her left eye that occurred last month, but resolved after being evaluated and treated in this ED, however has returned bilaterally. The patient is resting in chair in room, [facility]. RANCE EXAMINER documented in this encounter Plan of Treatment Not on file documented as of this encounter Visit Diagnoses Diagnosis Conjunctivitis of both eyes, unspecified conjunctivitis type documented in this encounter Active and Recently Administered Medications Times are shown in INSURANCE EXAMINER. Scheduled Medication Order 10/11/2017 10/12/2017 10/13/2017 fluorescein (FUL-KONSTANTIN) ophthalmic strip 1 strip 1 strip, Each Eye, ONCE, 1 dose, On Thu10/13/17 at 1215 1215 (Due) tetracaine 0.5% 0.5 % ophthalmic solution 1 drop 1 drop, Each Eye, NOW, 1 dose, On Thu10/13/17 at 1200 1200 (Due) documented in this encounter
--- OUTSIDE RECORDS SUMMARY | 2024-09-25 11:47 | XMS_ITS | Encounter Summary ---
Author Organization [facility] Address [address] [place] [address] Care Team Providers Care Geodetic Computator Name Role Phone Unavailable Primary Care Provider Unavailabl e Reason for Visit * Reason Comments Pain Urinary frequent urination w ith loss of appetite and right side pain for 1 week/no urinary pain/hx kidney stone Encounter Details Date Type Department Care Team (Late st Contact Info) Description 11/27/2017 6:17 PM CDT - 11/27/2017 8:37 PM CDT Emergency ER at [facility] [address] [place] [id number] Regino Silvestre MD [address] [place] [address] Acute pyelonephritis (Primary Dx) Discharge Disposition: Home or Self Care Social [...] Sign Reading Time Taken Comments Blood Pressure 117/78 11/27/2017 6:07 PM CDT Pulse 100 11/27/2017 6:07 PM CDT Temperature 36.8 ??C (98.2 ??F) 11/27/2017 6:07 PM CD T Respiratory Rate 18 11/27/2017 6:07 PM CDT Oxygen Saturation 100% 11/27/2017 6:07 PM CDT Inhaled Oxygen Concentration - - Weight 85.7 kg (189 lb) 11/27/2017 6:07 PM CDT Height 162.6 cm (5' 4 ) 11/27/2017 6:07 PM CDT Body Mass Index 32.44 11/27/2017 6:07 PM CDT documented in this encounter Functional [...] this encounter Discharge Instructions * Discharge Instructions* Regino Silvestre MD - 11/27/2017 7:37 PM CDT Images from the original note were not included. Kidney Infection WHAT YOU NEED TO KNOW: A kidney infection, or pyelonephritis, is a bacterial infection. The infection usually starts in your bladder or urethra and moves into your kidney. One or both kidneys may be infected. DISCHARGE INSTRUCTIONS: Return to the emergency department if: ?? You have a fever and chills. ?? You cannot stop vomiting. ?? You have severe pain in your abdomen, lower back, or sides. Contact your healthcare provider if: ?? You continue to have a fever after you take antibiotics for 3 days. ?? You have pain when you urinate, even after treatment. ?? Your signs and symptoms return. ?? You have questions or concerns about your condition or care. Medicines: You may need any of the following: ?? Antibiotics treat your bacterial infection. ?? Acetaminophen decreases pain and fever. It [...] total of acetaminophen in one day. ?? NSAIDs , such as ibuprofen, help decrease swelling, pain, and fever. This medicine is available with or without a doctor's order. NSAIDs can cause stomach bleeding or kidney problems in certain people. If you take blood thinner medicine, always ask if NSAIDs are safe for you. Always read the medicine label and follow directions. Do not give these medicines to children under 6 months of age without direction from your child's healthcare provider. ?? Prescription pain medicine may be given. Ask how to take this medicine safely. ?? Take your medicine as directed. Contact [...] of an emergency. Drink liquids as directed: You may need to drink extra liquids to help flush your kidneys and urinary system. Water is the best liquid to drink. Ask your healthcare provider how much liquid to drink each day and which liquids are best for you. Urinate as soon as you feel the urge: This will help flush bacteria from your urinary system. Do not wait or hold your urine for too long. Clean your genital area every day with soap and water: Wipe from front to back after you urinate orhave a bowel movement. Wear cotton underwear. Fabrics such as nylon and polyester can stay damp. This can increase your risk for infection. Urinate within 15 minutes after you have sex. Follow up with your healthcare provider as directed: Write down your questions so you remember to ask them during your visits. ?? 2017 [employer] Information is for End User's use only and may not be sold, redistributed or otherwise used for commercial purposes. All illustrations and images included in CareNotes?? are the copyrighted property of [employer], [employer] or [employer]. The above information is an educational technology specialist only. It is not intended as medical [...] needed Reported on 10/23/2016 02/21/2021 ciprofloxacin (CIPRO) 250 MG tablet Take 1 tablet by mouth 2 times daily for 5 days 10 tablet 11/27/2017 12/02/2017 HYDROcodone-acetaminoph en (NORCO) 5-325 MG tablet Take 1 tablet by mouth every 4 hours as needed for Pain 20 tablet 11/27/2017 12/29/2017 metoclopramide (REGLAN) 10 MG tablet Take 1 tablet by mouth every 8 hours 10 tablet 11/27/2017 02/02/2019 phenazopyridine (PYRIDIUM) 200 MG tablet Take 1 tablet by mouth 3 times daily as needed 6 tablet 11/27/2017 02/02/2019 documented as of this encounter ED Notes * Camila Garcia RN - 11/27/2017 8:36 PM CDT Discharge papers reviewed with patient. Patient verbalized understanding. No s/s of distress noted.Patient ambulated out of ER with prescriptions and discharge papers. * Camila Garcia RN - 11/27/2017 8:15 PM CDT Patient states she is feeling better. * Yifan John MD - 11/27/2017 7:11 PM CDT Provider contact with the patient: 11/27/2017 19:11 Datreion Deven [place] [id number] [facility] EMERGENCY DEPARTMENT History Chief Complaint Patient presents with ??? Pain Urinary frequent urination with loss of appetite and right side pain for 1 week/no urinary pain/hx kidney stone HPI 27 YO woman with PMH of renal stones, horse shoe kidney presenting with right flank pain. Right flank pain started about a week ago, worsening since onset, 04/16 now, more pain when she moves around, somewhat better with analgesics. Reports increased frequency of urination and intermittent hematuria, chills, nausea and decreased appetite. ROS otherwise negative. She has past history of renal stones and horse shoe kidneys. No intervention done for renal stone as they were small non obstructing calculi. Past Medical History: Diagnosis Date ??? Asthma [...] per week Comment: occ ??? Drug use: No ??? Sexual activity: Not on file Other Topics Concern ??? Not on file Social History Narrative Allergies Allergen Reactions ??? Augmentin Rash Hives Review of Systems ROS (Positives are bold) CONSTITUTIONAL: fatigue, weight loss, fevers, chills, rigors, sweats, malaise, anorexia. ENDO: cold intolernance, heat intolerance, polyphagia, polydipsia, polyuria, SKIN: rash, changed mole, itching, bruising, lumps or bumps HEME: anemia, bleeding disorder, abnormal bruising, blood clots EYES: visual blurring, double vision, eye pain ENT: hearing loss, tinnitus, vertigo, epistaxis, bleeding gums RESP: shortness of breath, dyspnea on exertion, cough, pleuritic chest pain, wheezing CV: palpitations, syncope, chest pain, edema, orthopnea, PND GI: dysphagia, nausea, vomiting, bleeding, abdominal pain, constipation, diarrhea : incontinence, dysuria, frequency, hematuria, kidney stone MSK: joint stiffness, joint swelling, joint redness, joint pain, back pain, neck pain NEURO: headaches, syncope, seizures, gait problems, tremor, balance, memory PSYCH: depressed mood, anxiety, suicidal ideation, homicidal ideation Physical Exam BP 117/78 Pulse 100 Temp 98.2 ??F Resp 18 Ht 1.626 m (5' 4 ) Wt 85.7 kg (189 lb) LMP 10/23/2017 SpO2 100% BMI 32.44 kg/m2 Physical Exam Gen: Comfortable, afebrile, alert and oriented x 3 HEENT: NC/AT, No pallor/icterus, JOSHUA, EOMI, dry mucous membranes, no JVD or thyromegaly, no lymphadenopathy Skin: No rashes, skin breaks or ulcers Lungs: CTAB, no added sounds Heart: S1,S2 heard, normal, no murmur/gallop/rub Abd: Soft, tender to palpation over right flank, not distended, no organomegaly, bowel sounds (+) Extremities: No pedal edema, no cyanosis/clubbing, peripheral pulses felt equal bilaterally Back: No spinal tenderness, no CVA angle tenderness Neuro: Alert and oriented x 3, motor and sensory grossly intact Medications Current Outpatient Prescriptions Medication Sig Dispense Refill ??? albuterol HFA (PROVENTIL;VENTOLIN;PROAIR) 108 (90 BASE) MCG/ACT inhaler Inhale 2 Puffs by mouthevery 6 hours as needed Reported on 10/23/2016 Procedures Procedures ECG Interpretation ECG Interpretation Lab/SPO2 Interpretation Hospital Encounter on 11/27/17 CBC W AUTO DIFFERENTIAL Result Value Ref Range WBC 6.6 4.4 - 10.7 x10E9/L WBC Corrected x10E9/L RBC 4.98 3.80 - 5.20 x10E12/L Hemoglobin 12.4 12.0 - 15.6 gm/dL Hematocrit 38.5 35.9 - 45.5 % MCV 77.3 (L) 80.7 - 98.3 fl MCH 24.9 (L) 26.7 - 34.0 pg MCHC 32.2 30.8 - 35.9 gm/dL Plt Ct 336 153 - 416 x10E9/L RDW-CV 17.4 (H) 12.1 - 14.9 % MPV 9.3 (L) 9.4 - 12.9 fl Neutro 59.1 44.0 - 73.0 % Lymph 24.8 20.0 - 43.0 % Benton 12.0 5.0 - 13.0 % Eos 2.9 0.0 - 6.0 % Baso 0.9 0.0 - 2.0 % Immature Grans 0.3 0 - 1 % Neutro Abs 3.88 2.01 - 7.14 x10E9/L Lymph Abs 1.63 1.07 - 3.94 x10E9/L Benton Abs 0.79 0.26 - 1.07 x10E9/L Eosin Abs 0.19 0 - 0.47 x10E9/L Baso Abs 0.06 0 - 0.08 x10E9/L Immature Grans (Abs) 0.02 0.00 - 0.06 x10E9/L NRBC Auto 0 /100 WBC COMPREHENSIVE METABOLIC PANEL Result Value Ref Range Glucose 92 74 - 106 mg/dL Sodium 135 (L) 136 - 145 mmol/L Potassium 3.7 3.5 - 5.1 mmol/L Chloride 104 98 - 107 mmol/L CO2 24 22 - 31 mmol/L Calcium 8.9 8.5 - 10.1 mg/dL Anion Gap 7 (L) 8 - 16 mmol/L BUN 9 7 - 21 mg/dL Creatinine 0.73 0.50 - 1.30 mg/dL Alkaline Phosphatase 69 38 - 126 U/L ALT/SGPT 16 13 - 61 U/L AST/SGOT 14 5 - 40 U/L Protein Total 8.0 6.4 - 8.2 gm/dL Albumin 3.9 3.4 - 5.0 gm/dL Bili Total 0.3 0.2 - 1.0 mg/dL eGFR MDRD >60 >60 mL/min/1.73m2 eGFR MDRD AFR AMR >60 >60 mL/min/1.73m2 URINALYSIS REFLEX MICROSCOPIC REFLEX CULTURE Result Value Ref Range Color UA Yellow Straw, Yellow Clarity UA Slt Cloudy (Abnormal) Clear Glucose UA Negative Negative Bili UA Negative Negative Ketone UA 1+ (Abnormal) Negative Specific [place] UA 1.017 1.005 - 1.030 Blood UA 3+ (Abnormal) Negative pH UA 6.0 5.0 - 8.0 pH Protein UA 1+ (Abnormal) Negative Urobilinogen UA 2.0 (Abnormal) Negative mg/dL Nitrite UA Negative Negative Leukocyte UA 2+ (Abnormal) Negative Urine Microscopy Urine microscopy to follow Reflex Status Culture to follow URINE MICROSCOPIC ONLY REFLEX TO CULTURE Result Value Ref Range Reflex Status Culture to follow RBC UA >100 (Abnormal) 0-5, None Seen # /hpf WBC UA 51-100 (Abnormal) 0-5, None Seen # /hpf Bacteria UA Trace (Abnormal) None Seen Squamous epithelial cells 3-5 None Seen, 0-2, 3-5 /hpf Mucus 3+ /LPF HCG URINE QUALITATIVE - POINT OF CARE (IP) Result Value Ref Range HCG Qual Urine Negative Negative QC Verified Yes Yes No orders to display Progress Notes ED Course ED Course Medical Decision Making 27 YO woman with history of renal stones and horse shoe kidney presenting with right flank pain, frequency and chills. CBC within normal limits, UA s/o infection, likely having pyelonephritis. Clinically appears non toxic, will give her fluids, IV abx, analgesics and monitor her response. Orders Placed This Encounter ??? CULTURE URINE ??? CBC W AUTO DIFFERENTIAL ??? COMPREHENSIVE METABOLIC PANEL ??? URINALYSIS REFLEX MICROSCOPIC REFLEX CULTURE ??? URINE MICROSCOPIC ONLY REFLEX TO CULTURE ??? HCG URINE QUALITATIVE - POINT OF CARE (IP) ??? AND Linked Order Group ??? 0.9% NaCl injection 3 mL ??? 0.9% NaCl injection 1-10 mL ??? cefTRIAXone (ROCEPHIN) IVPB 1,000 mg ??? 0.9% NaCl IV Bolus ??? ketorolac (TORADOL) injection 30 mg Clinical Impression Final diagnoses: None Yifan John MD 11/27/2017 7:19 PM * Regino Silvestre MD - 11/27/2017 6:47 PM CDT Provider contact with the patient: 11/27/2017 18:47 Datreion Deven [place] [id number] [facility] EMERGENCY DEPARTMENT History Chief Complaint Patient presents with ??? Pain Urinary frequent urination with loss of appetite and right side pain for 1 week/no urinary pain/hx kidney stone HPI Comments: Jumana Rivers is a 27 y.o. female with history of asthma, kidney stones, and anemia presenting to the ED with a chief complaint of right flank pain for the past week. Her pain is rated 8/10, is constant, does not radiate, and has been gradually worsening. She notes that movementmakes her pain worse, while pain medications like Tylenol will alleviate her pain temporarily. She has associated nausea, poor appetite, chills, and urinary frequency, but denies fever, abdominal pain, vomiting, diarrhea, constipation, or dysuria. She has a history of kidney stones, but she notes that this pain feels different than the pain she experiences with kidney stones. Past Medical History: Diagnosis Date ??? Asthma [...] per week Comment: occ ??? Drug use: No ??? Sexual activity: Not on file Other Topics Concern ??? Not on file Social History Narrative Allergies Allergen Reactions ??? Augmentin Rash Hives Review of Systems Review of Systems Constitutional: Positive for chills. Negative for diaphoresis, fever, malaise/fatigue and weight loss. Poor appetite HENT: Negative. Negative for hearing loss, sore throat and tinnitus. Eyes: Negative. Negative for blurred vision, photophobia, pain and discharge. Respiratory: Negative. Negative for cough, hemoptysis, shortness of breath, wheezing and stridor. Cardiovascular: Negative. Negative for chest pain, palpitations, claudication and PND. Gastrointestinal: Positive for nausea. Negative for abdominal pain, blood in stool, constipation, diarrhea, heartburn, melena and vomiting. Genitourinary: Positive for flank pain (right) and frequency. Negative for dysuria and urgency. Musculoskeletal: Negative for falls and joint pain. Skin: Negative. Negative for itching and rash. Neurological: Negative. Negative for tremors, sensory change, speech change, focal weakness, seizures, loss of consciousness, weakness and headaches. Endo/Heme/Allergies: Negative. Negative for polydipsia. Does not bruise/bleed easily. Psychiatric/Behavioral: Negative. Negative for depression, memory loss and suicidal ideas. The patient does not have insomnia. Physical Exam Blood pressure 117/78, pulse 100, temperature 98.2 ??F, resp. rate 18, height 1.626 m (5' 4 ), weight 85.7 kg (189 lb), last menstrual period 10/23/2017, SpO2 100 %, not currently . Physical Exam Constitutional: She is oriented to person, place, and time. She appears well-developed. HENT: Head: Normocephalic and atraumatic. Right Ear: External ear normal. Left Ear: External ear normal. Nose: Nose normal. Mouth/Throat: Oropharynx is clear and moist. Eyes: Conjunctivae and EOM are normal. Pupils are equal, round, and reactive to light. Neck: Normal range of motion. Neck supple. No tracheal deviation present. Cardiovascular: Normal rate, regular rhythm, normal heart sounds and intact distal pulses. Exam reveals no gallop and no friction rub. No murmur heard. Pulmonary/Chest: Effort normal and breath sounds normal. No stridor. No respiratory distress. She has no wheezes. She has no rales. She exhibits no tenderness. Abdominal: Soft. Bowel sounds are normal. She exhibits no distension and no mass. There is no tenderness. There is CVA tenderness. There is no rebound and no guarding. Mild tenderness in right CVA. Musculoskeletal: She exhibits no edema or tenderness. Neurological: She is alert and oriented to person, place, and time. She has normal reflexes. Skin: Skin is warm and dry. No rash noted. No erythema. Psychiatric: She has a normal mood and affect. Her behavior is normal. Judgment and thought contentnormal. Nursing note and vitals reviewed. Medications Current Outpatient Prescriptions Medication Sig Dispense Refill ??? HYDROcodone-acetaminophen (NORCO) 5-325 MG tablet Take 1 tablet by mouth every 4 hours as needed for Pain 20 tablet 0 ??? metoclopramide (REGLAN) 10 MG tablet Take 1 tablet by mouth every 8 hours 10 tablet 0 ??? ciprofloxacin (CIPRO) 250 MG tablet Take 1 tablet by mouth 2 times daily for 5 days 10 tablet 0 ??? phenazopyridine (PYRIDIUM) 200 MG tablet Take 1 tablet by mouth 3 times daily as needed 6 tablet 0 ??? albuterol HFA (PROVENTIL;VENTOLIN;PROAIR) 108 (90 [...] Normal. Intervention(s) used: None. Hospital Encounter on 11/27/17 CBC W AUTO DIFFERENTIAL Result Value Ref Range WBC 6.6 4.4 - 10.7 x10E9/L WBC Corrected x10E9/L RBC 4.98 3.80 - 5.20 x10E12/L Hemoglobin 12.4 12.0 - 15.6 gm/dL Hematocrit 38.5 35.9 - 45.5 % MCV 77.3 (L) 80.7 - 98.3 fl MCH 24.9 (L) 26.7 - 34.0 pg MCHC 32.2 30.8 - 35.9 gm/dL Plt Ct 336 153 - 416 x10E9/L RDW-CV 17.4 (H) 12.1 - 14.9 % MPV 9.3 (L) 9.4 - 12.9 fl Neutro 59.1 44.0 - 73.0 % Lymph 24.8 20.0 - 43.0 % Benton 12.0 5.0 - 13.0 % Eos 2.9 0.0 - 6.0 % Baso 0.9 0.0 - 2.0 % Immature Grans 0.3 0 - 1 % Neutro Abs 3.88 2.01 - 7.14 x10E9/L Lymph Abs 1.63 1.07 - 3.94 x10E9/L Benton Abs 0.79 0.26 - 1.07 x10E9/L Eosin Abs 0.19 0 - 0.47 x10E9/L Baso Abs 0.06 0 - 0.08 x10E9/L Immature Grans (Abs) 0.02 0.00 - 0.06 x10E9/L NRBC Auto 0 /100 WBC COMPREHENSIVE METABOLIC PANEL Result Value Ref Range Glucose 92 74 - 106 mg/dL Sodium 135 (L) 136 - 145 mmol/L Potassium 3.7 3.5 - 5.1 mmol/L Chloride 104 98 - 107 mmol/L CO2 24 22 - 31 mmol/L Calcium 8.9 8.5 - 10.1 mg/dL Anion Gap 7 (L) 8 - 16 mmol/L BUN 9 7 - 21 mg/dL Creatinine 0.73 0.50 - 1.30 mg/dL Alkaline Phosphatase 69 38 - 126 U/L ALT/SGPT 16 13 - 61 U/L AST/SGOT 14 5 - 40 U/L Protein Total 8.0 6.4 - 8.2 gm/dL Albumin 3.9 3.4 - 5.0 gm/dL Bili Total 0.3 0.2 - 1.0 mg/dL eGFR MDRD >60 >60 mL/min/1.73m2 eGFR MDRD AFR AMR >60 >60 mL/min/1.73m2 URINALYSIS REFLEX MICROSCOPIC REFLEX CULTURE Result Value Ref Range Color UA Yellow Straw, Yellow Clarity UA Slt Cloudy (Abnormal) Clear Glucose UA Negative Negative Bili UA Negative Negative Ketone UA 1+ (Abnormal) Negative Specific [place] UA 1.017 1.005 - 1.030 Blood UA 3+ (Abnormal) Negative pH UA 6.0 5.0 - 8.0 pH Protein UA 1+ (Abnormal) Negative Urobilinogen UA 2.0 (Abnormal) Negative mg/dL Nitrite UA Negative Negative Leukocyte UA 2+ (Abnormal) Negative Urine Microscopy Urine microscopy to follow Reflex Status Culture to follow URINE MICROSCOPIC ONLY REFLEX TO CULTURE Result Value Ref Range Reflex Status Culture to follow RBC UA >100 (Abnormal) 0-5, None Seen # /hpf WBC UA 51-100 (Abnormal) 0-5, None Seen # /hpf Bacteria UA Trace (Abnormal) None Seen Squamous epithelial cells 3-5 None Seen, 0-2, 3-5 /hpf Mucus 3+ /LPF HCG URINE QUALITATIVE - POINT OF CARE (IP) Result Value Ref Range HCG Qual Urine Negative Negative QC Verified Yes Yes No orders to display Progress Notes 7:46 PM I re-evaluated the patient???s medical condition, comfort, and provided a care update. The patient is resting comfortably. She notes that she is still having pain. She states that her bladderis spasming. Will given fentanyl. 8:36 PM I had a formal disposition interview with the patient/family to discuss the ED visit and disposition plan. Pt is medically stable for d/c home at this time. I have given the patient instructions regarding her diagnosis, expectations, follow up, and return precautions. I explained to the patient that emergent conditions may arise and to return to the ER for new, worsening, or any persistent conditions. I've explained the importance of following up with her doctor as instructed. The patient verbalized understanding of the discharge instructions. ED Course ED Course Medical Decision Making I have reviewed the: Previous Chart, Nursing Notes, Vitals. I have interpreted the following results: Labs, Oxygen Saturation. Orders Placed This Encounter ??? CULTURE URINE ??? CBC W AUTO DIFFERENTIAL ??? COMPREHENSIVE METABOLIC PANEL ??? URINALYSIS REFLEX MICROSCOPIC REFLEX CULTURE ??? URINE MICROSCOPIC ONLY REFLEX TO CULTURE ??? HCG URINE QUALITATIVE - POINT OF CARE (IP) ??? DISCONTD: 0.9% NaCl injection 3 mL ??? DISCONTD: 0.9% NaCl injection 1-10 mL ??? DISCONTD: cefTRIAXone (ROCEPHIN) IVPB 1,000 mg ??? 0.9% NaCl IV Bolus ??? ketorolac (TORADOL) injection 30 mg ??? HYDROcodone-acetaminophen (NORCO) 5-325 MG tablet ??? metoclopramide (REGLAN) 10 MG tablet ??? ciprofloxacin (CIPRO) 250 MG tablet ??? fentaNYL (PF) (SUBLIMAZE) injection 50 mcg ??? phenazopyridine (PYRIDIUM) tablet 200 mg ??? phenazopyridine (PYRIDIUM) 200 MG tablet Clinical Impression Final diagnoses: Acute pyelonephritis (Primary) Vitals prior to discharge: Blood pressure 117/78, pulse 100, temperature 98.2 ??F, resp. rate 18, height 1.626 m (5' 4 ), weight 85.7 kg (189 lb), last menstrual period 10/23/2017, SpO2 100 %, not currently . New Medications: Discharge Medication List as of 11/27/2017 7:37 PM START taking these medications Details HYDROcodone-acetaminophen (NORCO) 5-325 MG tablet Disp-20 tablet, R-0, Take 1 tablet by mouth every4 hours as needed for Pain, Print metoclopramide (REGLAN) 10 MG tablet Disp-10 tablet, R-0, Take 1 tablet by mouth every 8 hours, Print ciprofloxacin (CIPRO) 250 MG tablet Disp-10 tablet, R-0, Take 1 tablet by mouth 2 times daily for 5days, Print I have advised the patient to follow-up with: Dinesh Cannon MD [address] [id number] x5 In 3 days Disposition: Discharged By signing my name below, I, Jeronimo Del Angel, attest that this documentation has been prepared under the direction and in the presence of Dr. Silvestre. Electronically Signed: Tevin Watkins. 11/27/2017 10:25 PM I, Dr. Silvestre, personally performed the services described in this documentation. All medical record entries made by the scribe were at my direction and in my presence. I have reviewed the chart and discharge instructions and agree that the record reflects my personal performance and is accurate and complete. Dr. Regino Silvestre MD , 11/27/2017 10:25 PM * Camila Garcia RN - 11/27/2017 6:36 PM CDT Patient presents to ER due to kidney/urinary pain. Patient states she has history of kidney stones and UTIs. Patient states she has right flank pain x1 week. Patient denies urinary burning or hematuria. Patient states she does have nausea and urinary frequency. Patient denies chest pain, SOB, vomiting, diarrhea, weakness, dizziness. Patient states her pain is 10/10, but is playing and laughing with her family. Patient states her mother gave her one of her mother's tylenol #3 pills without relief. Patient denies relief with OTC medication. Provider at chairside. documented in this encounter Plan of Treatment Not on file documented as of this encounter Procedures Procedure Name Priority Date/Time Associated Diagnosis Comments HCG URINE QUALITATIVE - POINT OF CARE STAT 11/27/2017 6:24 PM CDT URINE MICROSCOPIC ONLY REFLEX TO CULTURE STAT 11/27/2017 6:22 PM CDT URINALYSIS REFLEX MICROSCOPIC REFLEX CULTURE STAT 11/27/2017 6:22 PM CDT CULTURE URINE STAT 11/27/2017 6:22 PM CDT CBC W AUTO DIFFERENTIAL STAT 11/27/2017 6:13 PM CDT COMPREHENSIVE METABOLIC PANEL STAT 11/27/2017 6:13 PM CDT documented in this encounter Results * HCG URINE QUALITATIVE - POINT OF CARE (IP) (11/27/2017 6:24 PM CDT) HCG Qual Urine Negative Negative [facility] POCT TESTING QC Verified Yes Yes [facility] POC T TESTING Urine URINE / Unknown 11/27/2017 6 :24 PM CDT Regino Silvestre MD LAB - POINT OF CARE ORDERABLES Performing Organization Address [facility] Co de Phone Number [facility] POCT TESTING [address] [place] [address], [facility] [phone] * CULTURE URINE (11/27/2017 6:22 PM CDT) Culture Urine <10,000 CFU/mL urogenital marco CHRYSTAL 11/29/2017 9:04 AM CDT [facility] Urine URINE SPECIMEN OBTAINED BY CLEAN CATCH PROCEDURE / Unknown Collection / Unknown 11/27/2017 6:22 PM CDT 11/27/2017 6:28 PM CDT Regino Silvestre MD LAB - MICROBIOLOGY O RDERABLES [facility]CRO[facility] [address] [place] [phone] * (ABNORMAL) URINE MICROSCOPIC ONLY REFLEX TO CULTURE (11/27/2017 6:22 PM CDT) Reflex Status Culture to follow 11/27/2017 6:[address] [facility] RBC UA >100(A) 0-5, None Seen # /hpf 11/27/2017 6:[address] [facility] WBC UA 51-100(A) 0-5, None Seen # /hpf 11/27/2017 6:[address] [facility] Bacteria UA Trace(A) None Seen 11/27/2017 6:[address] [facility] Squamous Epithelial Cells 3-5 None Seen, 0-2, 3-5 /hpf 11/27/2017 6:[address] [facility] Mucus UA 3+ /LPF 11/27/2017 6:[address] [facility] Urine URINE SPECIMEN OBTAINED BY CLEAN CATCH PROCEDURE / Unknown Collection / Unknown 11/27/2017 6:22 PM CDT 11/27/2017 6:[address] [facility] - 11/27/2017 6:38 PM CDT Regino Silvestre MD LAB - URINALYSIS ORD ERABLES Performing Organization Address City/State/[facility] Co de Phone Number [facility] [address] [place] [address] * (ABNORMAL) URINALYSIS REFLEX MICROSCOPIC REFLEX CULTURE (11/27/2017 6:22 PM CDT) Color UA Yellow Straw, Yellow 11/27/2017 6:[address] [facility] Clarity UA Slt Cloudy(A) Clear 11/27/2017 6:[address] [facility] Glucose UA Negative Negative 11/27/2017 6:[address] [facility] Bilirubin UA Negative Negative 11/27/2017 6:[address] [facility] Ketone UA 1+(A) Negative 11/27/2017 6:[address] [facility] Specific [place] UA 1.017 1.005 - 1.030 11/27/2017 6:[address] [facility] Blood UA 3+(A) Negative 11/27/2017 6:[address] [facility] pH UA 6.0 5.0 - 8.0 pH 11/27/2017 6:[address] [facility] Protein UA 1+(A) Negative 11/27/2017 6:[address] [facility] Urobilinogen UA 2.0(A) Negative mg/dL 11/27/2017 6:38 PM CDT [facility] Nitrite UA Negative Negative 11/27/2017 6:[address] [facility] Leukocyte UA 2+(A) Negative 11/27/2017 6:[address] [facility] Urine Microscopy Urine microscopy to follow 11/27/2017 6:[address] [facility] Reflex Status Culture to follow 11/27/2017 6:[address] [facility] Urine URINE SPECIMEN OBTAINED BY CLEAN CATCH PROCEDURE / Unknown Collection / Unknown 11/27/2017 6:22 PM CDT 11/27/2017 6:[address] [facility] - 11/27/2017 6:38 PM CDT Regino Silvestre MD LAB - URINALYSIS ORD ERABLES [facility] [address] [place] [address] * (ABNORMAL) COMPREHENSIVE METABOLIC PANEL (11/27/2017 6:13 PM CDT) Glucose 92 74 - 106 mg/dL 11/27/2017 6:[address] [facility] Sodium 135(L) 136 - 145 mmol/L 11/27/2017 6:[address] [facility] Potassium 3.7 3.5 - 5.1 mmol/L 11/27/2017 6:[address] [facility] Chloride 104 98 - 107 mmol/L 11/27/2017 6:[address] [facility] CO2 24 22 - 31 mmol/L 11/27/2017 6:[address] [facility] Calcium 8.9 8.5 - 10.1 mg/dL 11/27/2017 6:[address] [facility] Anion Gap 7(L) 8 - 16 mmol/L 11/27/2017 6:[address] [facility] BUN 9 7 - 21 mg/dL 11/27/2017 6:34 PM CDT [facility] Creatinine 0.73 0.50 - 1.30 mg/dL 11/27/2017 6:34 PM CDT [facility] Alkaline Phosphatase 69 38 - 126 U/L 11/27/2017 6:34 PM CDT [facility] ALT 16 13 - 61 U/L 11/27/2017 6:[address] [facility] AST 14 5 - 40 U/L 11/27/2017 6:[address] [facility] Protein Total 8.0 6.4 - 8.2 gm/dL 11/27/2017 6:34 PM CDT [facility] Albumin 3.9 3.4 - 5.0 gm/dL 11/27/2017 6:34 PM CDT [facility] Bilirubin Total 0.3 0.2 - 1.0 mg/dL 11/27/2017 6:[address] [facility] eGFR by MDRD >60 >60 mL/min/1.7 3m2 11/27/2017 6:34 PM CDT [facility] eGFR by MDRD >60 >60 mL/min/1.7 3m2 11/27/2017 6:[address] [facility] Blood BLOOD SPECIMEN / Unknown Venipuncture / Unknown 11/27/2017 6:13 PM CDT 11/27/2017 6:15 PM CDT Regino Silvestre MD LAB - CHEMISTRY [facility] Organization Address City/State/[facility] Co de Phone Number [facility] [address] [place] [address] * (ABNORMAL) CBC W AUTO DIFFERENTIAL (11/27/2017 6:13 PM CDT) WBC 6.6 4.4 - 10.7 x10E9/L 11/27/2017 6:[address] [facility] WBC Corrected x10E9/L 11/27/2017 6:[address] [facility] RBC 4.98 3.80 - 5.20 x10E12/L 11/27/2017 6:[address] [facility] Hemoglobin 12.4 12.0 - 15.6 gm/dL 11/27/2017 6:[address] [facility] Hematocrit 38.5 35.9 - 45.5 % 11/27/2017 [facility] MCV 77.3(L) 80.7 - 98.3 fl 11/27/2017 6:18 PM [facility] MCH 24.9(L) 26.7 - 34.0 pg 11/27/2017 6:18 PM [facility] MCHC 32.2 30.8 - 35.9 gm/dL 11/27/2017 6:18 PM [facility] Platelet Count 336 153 - 416 x10E9/L 11/27/2017 6:18 PM [facility] RDW-CV 17.4(H) 12.1 - 14.9 % 11/27/2017 6:18 PM [facility] MPV 9.3(L) 9.4 - 12.9 fl 11/27/2017 6:18 PM [facility] Neutrophils % 59.1 44.0 - 73.0 % 11/27/2017 6:18 PM [facility] Lymphocytes % 24.8 20.0 - 43.0 % 11/27/2017 6:18 PM [facility] Monocytes % 12.0 5.0 - 13.0 % 11/27/2017 6:18 PM [facility] Eosinophils % 2.9 0.0 - 6.0 % 11/27/2017 6:18 PM [facility] Basophils % 0.9 0.0 - 2.0 % 11/27/2017 6:18 PM [facility] Immature Granulocytes 0.3 0 - 1 % 11/27/2017 6:18 PM [facility] Neutrophil Absolute 3.88 2.01 - 7.14 x10E9/L 11/27/2017 6:18 PM [facility] Lymphocytes Absolute 1.63 1.07 - 3.94 x10E9/L 11/27/2017 6:18 PM [facility] Monocytes Absolute 0.79 0.26 - 1.07 x10E9/L 11/27/2017 6:18 PM [facility] Eosinophils Absolute 0.19 0 - 0.47 x10E9/L 11/27/2017 6:18 PM [facility] Basophils Absolute 0.06 0 - 0.08 x10E9/L 11/27/2017 6:[address] [facility] Immature Granulocytes Absolute 0.02 0.00 - 0.06 x10E9/L 11/27/2017 6:[address] [facility] nRBC Auto 0 /100 WBC 11/27/2017 6:[address] [facility] Blood BLOOD SPECIMEN / Unknown Venipuncture / Unknown 11/27/2017 6:13 PM CDT 11/27/2017 6:15 PM CDT Regino Silvestre MD LAB - HEMATOLOGY ORD ERABLES [facility] [address] [place] [address] documented in this encounter Visit Diagnoses Diagnosis Acute pyelonephritis- Primary documented in this encounter Administered Medications Inactive Administered Medications - up to 3 most recent administrations Medication Order MAR Action Action Date Dose Rate Site 0.9% NaCl injection 1-10 mL 1-10 mL, Intracatheter, PRN, Other, peripheral line flush, Starting on Thu11/27/17 at 1746, Until Thu11/27/17 at 2137, Flush peripheral IV catheter with 1-10 mL of normal saline before and after medications and prn to clear blood from the line or to verify patency. 0.9% NaCl injection 3 mL 3 mL, Intracatheter, EVERY 8 HOURS, First dose on Thu11/27/17 at 2200, Until Discontinued, Flush peripheral IV catheter with 3 mL of normal saline every 8 hours. 0.9% NaCl IV Bolus 1,000 mL, at 983.61 mL/hr, Administer over 61 Minutes, NOW, 1 dose, On Thu11/27/17 at 1900 $ New Bag/Syringe 11/27/2017 7:11 PM CDT 1,000 mL 983.61 mL/hr cefTRIAXone (ROCEPHIN) IVPB 1,000 mg 1,000 mg (1 g), at 100 mL/hr, Intravenous, EVERY 24 HOURS, First dose on Thu11/27/17 at 1900, Until Discontinued, Indication for anti-infective therapy: Documented infection, Site of anti-infective therapy: Urine $ New Bag/Syringe 11/27/2017 7:10 PM CDT 1,000 mg 100 mL/hr fentaNYL (PF) (SUBLIMAZE) injection 50 mcg 50 mcg, Intravenous, NOW, 1 dose, On Thu11/27/17 at 1999 $ Given 11/27/2017 7:57 PM CDT 50 mcg ketorolac (TORADOL) injection 30 mg 30 mg, Intravenous, NOW, 1 dose, On Thu11/27/17 at 190 $ Given 11/27/2017 7:10 PM CDT 30 mg phenazopyridine (PYRIDIUM) tablet 200 mg 200 mg, Oral, NOW, 1 dose, On Thu11/27/17 at 1999 $ Given 11/27/2017 7:58 PM CDT 200 mg documented in this encounter Active and Recently Administered Medications Times are shown in CDT. Scheduled Medication Order 11/25/2017 11/26/2017 11/27/2017 0.9% NaCl injection 3 mL(Linked Group 1) 3 mL, Intracatheter, EVERY 8 HOURS, First dose on Thu11/27/17 at 2200, Until Discontinued, Flush peripheral IV catheter with 3 mL of normal saline every 8 hours. 0.9% NaCl IV Bolus (COMPLETED) 1,000 mL, at 983.61 mL/hr, Administer over 61 Minutes, NOW, 1 dose, On Thu11/27/17 at [id number] ($ New Bag/Syri nge - Provider: Camila Garcia RN)2011 (Due: Stopped - Provider: Camila Garcia RN) cefTRIAXone (ROCEPHIN) IVPB 1,000 mg 1,000 mg (1 g), at 100 mL/hr, Intravenous, EVERY 24 HOURS, First dose on Thu11/27/17 at 1900, Until Discontinued, Indication for anti-infective therapy: Documented infection, Site of anti-infective therapy: Urine 1909 ($ New Bag/Syri nge - Provider: Camila Garcia, RAZIA)1956 (Stopped - Provider: Camila Garcia RN) fentaNYL (PF) (SUBLIMAZE) injection 50 mcg (COMPLETED) 50 mcg, Intravenous, NOW, 1 dose, On Thu11/27/17 at 1999 1956 ($ Given - Prov ider: Camila Garcia RN) ketorolac (TORADOL) injection 30 mg (COMPLETED) 30 mg, Intravenous, NOW, 1 dose, On Thu11/27/17 at [id number] ($ Given - Prov ider: Camila Garcia RN) phenazopyridine (PYRIDIUM) tablet 200 mg (COMPLETED) 200 mg, Oral, NOW, 1 dose, On Thu11/27/17 at 2000 1958 ($ Given - Prov ider: Camila Garcia RN) PRN Medication Order 11/25/2017 11/26/2017 11/27/2017 0.9% NaCl injection 1-10 mL(Linked Group 1) 1-10 mL, Intracatheter, PRN, Other, peripheral line flush, Starting on Thu11/27/17 at 1746, Until Thu11/27/17 at 2136, Flush peripheral IV catheter with 1-10 mL of normal saline before and after medications and prn to clear blood from the line or to verify patency. Linked Groups Order Group 1: SALINE LOCK, INSERT AND MAINTAIN (COMPLETED) Routine, CONTINUOUS, Starting on Thu11/27/17 at 1800, Until Specified, New collection And 0.9% NaCl injection 3 mLJump to med 3 mL, Intracatheter, EVERY 8 HOURS, First dose on Thu11/27/17 at 2200, Until Discontinued, Flush peripheral IV catheter with 3 mL of normal saline every 8 hours. And 0.9% NaCl injection 1-10 mLJump to med 1-10 mL, Intracatheter, PRN, Other, peripheral line flush, Starting on Thu11/27/17 at 1746, Until Thu11/27/17 at 2136, Flush peripheral IV catheter with 1-10 mL of normal saline before and after medications and prn to clear blood from the line or to verify patency. documented in this encounter
--- OUTSIDE RECORDS SUMMARY | 2024-09-25 11:47 | XMS_ITS | Encounter Summary ---
Author Organization [facility] Address [address] [place] [address] Care Team Providers Care Dispute Resolution Analyst Name Role Phone Unavailable Primary Care Provider Unavailabl e Reason for Visit * Reason Comments Pain Flank c/o rt flank pain, n ausea since this am. No fever, chills, dysuria. Hx kidney stones. Encounter Details Date Type Department Care Team (Late st Contact Info) Description 12/29/2017 8:48 AM CDT - 12/29/2017 12:22 PM CDT Emergency ER at [facility] [address] [place] [address] Lalo Frausto MD [address] [place] [address] [place] [address] Abdominal pain, right upper quadrant; Nephrolithiasis Discharge Disposition: Home or Self Care Social [...] Sign Reading Time Taken Comments Blood Pressure 115/68 12/29/2017 11:42 AM CDT Pulse 79 12/29/2017 11:53 AM CDT Temperature 36.8 ??C (98.3 ??F) 12/29/2017 12:21 PM C DT Respiratory Rate 13 12/29/2017 11:53 AM CDT Oxygen Saturation 100% 12/29/2017 11:53 AM CDT Inhaled Oxygen Concentration - - Weight 85.7 kg (189 lb) 12/29/2017 9:00 AM CDT Height 162.6 cm (5' 4 ) 12/29/2017 9:00 AM CDT Body Mass Index 32.44 12/29/2017 9:00 AM CDT documented in this encounter Functional [...] * Discharge Instructions* Lalo Frausto MD - 12/29/2017 11:55 AM CDT Images from the original note were not included. Kidney Stones WHAT YOU NEED TO KNOW: Kidney stones form in the urinary system when the water and waste in your urine are out of balance.When this happens, certain types of waste crystals separate from the urine. The crystals build up and form kidney stones. You may have more than one kidney stone. DISCHARGE INSTRUCTIONS: Return to the emergency department if: ?? You have vomiting that is not relieved by medicine. Contact your healthcare provider if: ?? You have a fever. ?? You have trouble passing urine. ?? You see blood in your urine. ?? You have severe pain. ?? You have any questions or concerns about your condition or care. Medicines: ?? NSAIDs , such as ibuprofen, help decrease swelling, pain, and fever. This medicine is available with or without a doctor's order. NSAIDs can cause stomach bleeding or kidney problems in certain people. If you take blood thinner medicine, always ask your healthcare provider if NSAIDs are safe foryou. Always read the medicine label and follow directions. ?? Prescription pain medicine may be given. Ask your healthcare provider how to take this medicine safely. Some prescription pain medicines contain acetaminophen. Do not take other medicines that contain acetaminophen without talking to your healthcare provider. Too much acetaminophen may cause liver damage. Prescription pain medicine may cause constipation. Ask your healthcare provider how to prevent or treat constipation. ?? Medicines to balance your electrolytes may be needed. ?? Take your medicine as directed. Contact [...] with you in case of an emergency. Follow up with your healthcare provider as directed: You may need to return for more tests. Write down your questions so you remember to ask them during your visits. What you can do to manage kidney stones: ?? Drink more liquids. Your healthcare provider may tell you to drink at least 8 to 12 (eight-ounce) cups of liquids each day. This helps flush out the kidney stones when you urinate. Water is the best liquid to drink. ?? Strain your urine every time you go to the bathroom. Urinate through a strainer or a piece of thin cloth to catch the stones. Take the stones to your healthcare provider so they can be sent to thelab for tests. This will help your healthcare providers plan the best treatment for you. ?? Eat a variety of healthy foods. Healthy foods include fruits, vegetables, whole-grain breads, low-fat dairy products, beans, and fish. You may need to limit how much sodium (salt) or protein you eat. Ask for information about the best foods for you. ?? Stay active. Your stones may pass more easily if you stay active. Exercise can also help you manage your weight. Ask about the best activities for you. After you pass the kidney stones: Your healthcare provider may order a 24-hour urine test. Resultsfrom a 24-hour urine test will help your healthcare provider plan ways to prevent more stones from forming. Your healthcare provider will give you more instructions. ?? 2017 [employer] Information is for End User's use only and may not be sold, redistributed or otherwise used for commercial purposes. All illustrations and images included in CareNotes?? are the copyrighted property of [employer]. or [employer]. The above information is an educational resource coordinator only. It is not intended as [...] hours as needed Reported on 10/23/2016 02/21/2021 HYDROcodone-acetaminoph en (NORCO) 5-325 MG tablet Take 1 tablet by mouth every 4 hours as needed for Pain 21 tablet 12/29/2017 02/02/2019 metoclopramide (REGLAN) 10 MG tablet Take 1 tablet by mouth every 8 hours 10 tablet 11/27/2017 02/02/2019 phenazopyridine (PYRIDIUM) 200 MG tablet Take 1 tablet by mouth 3 times daily as needed 6 tablet 11/27/2017 02/02/2019 documented as of this encounter ED Notes * Glory David RN - 12/29/2017 12:22 PM CDT Pt discharged. Pt verbalized understanding of d/c instructions and rx. Pt provided a work excuse note * Glory David RN - 12/29/2017 10:[address] Frausto into see pt * Glory David RN - 12/29/2017 10:24 AM CDT Pt to CT * Glory David RN - 12/29/2017 10:20 AM CDT Pt took off all VS monitoring equipment, pt refusing VS monitoring. Stating im in pain, I cant sitstill * Glory David RN - 12/29/2017 9:[address] Frausto into see pt * Glory David RN - 12/29/2017 8:57 AM CDT Pt states nausea without vomiting that started this am, with right flank pain. Pt states hx of kidney stone, feels similar but worse. Denies fever. States diarrhea. Denies taking anything at home forpain. Denies urinary symptoms. * Lalo Frausto MD - 12/29/2017 8:52 AM CDT Provider contact with the patient: 12/29/2017 08:52 Jumana Rivers [id number] [facility] EMERGENCY DEPARTMENT History Chief Complaint Patient presents with ??? Pain Flank c/o rt flank pain, nausea since this am. No fever, chills, dysuria. Hx kidney stones. HPI Comments: Jumana Rivers is a 27 y.o. Female with hx of congential horseshoe kidney and recurrent nephrolithiasis, presenting to the ED with a chief complaint of sudden onset, right flank pain that began this morning. Associated symptoms include nausea. She denies any left-sided or midline tenderness/pain of the back, pelvic pain, vaginal bleeding, or discharge. Past Medical History: Diagnosis Date ??? Asthma [...] Negative for hearing loss and tinnitus. Eyes: Negative for blurred vision and double vision. Respiratory: Negative for cough, hemoptysis and sputum production. Cardiovascular: Negative for chest pain, palpitations, orthopnea, claudication and leg swelling. Gastrointestinal: Positive for nausea. Negative for abdominal pain, diarrhea and vomiting. Genitourinary: Positive for flank pain (left). Negative for dysuria, frequency, hematuria and urgency. Musculoskeletal: Negative for back pain, joint pain, myalgias and neck pain. Skin: Negative for itching and rash. Neurological: Negative for dizziness and headaches. Endo/Heme/Allergies: Does not bruise/bleed easily. Psychiatric/Behavioral: Negative for depression. Physical Exam Temp 97.6 ??F (36.4 ??C) Ht 1.626 m (5' 4 ) Wt 85.7 kg (189 lb) LMP 12/26/2017 BMI 32.44 kg/m2 Physical Exam Constitutional: She is oriented to person, place, and time. She appears well- developed and well-nourished. HENT: Head: Normocephalic and atraumatic. Eyes: EOM are normal. Pupils are equal, round, [...] motion. She exhibits no edema or tenderness. Right flank pain Neurological: She is alert and oriented to [...] every 4 hours as needed for Pain 21 tablet 0 ??? metoclopramide (REGLAN) 10 MG tablet Take 1 tablet by mouth every 8 hours (Patient not taking: Reported on 12/29/2017) 10 tablet 0 ??? phenazopyridine (PYRIDIUM) 200 MG tablet Take 1 tablet by mouth 3 times daily as needed (Patient not taking: Reported on 12/29/2017) 6 tablet 0 ??? albuterol HFA (PROVENTIL;VENTOLIN;PROAIR) [...] Normal. Intervention(s) used: None. Hospital Encounter on 12/29/17 CBC W AUTO DIFFERENTIAL Result Value Ref Range WBC 9.0 4.4 - 10.7 x10E9/L WBC Corrected x10E9/L RBC 4.62 3.80 - 5.20 x10E12/L Hemoglobin 11.5 (L) 12.0 - 15.6 gm/dL Hematocrit 36.4 35.9 - 45.5 % MCV 78.8 (L) 80.7 - 98.3 fl MCH 24.9 (L) 26.7 - 34.0 pg MCHC 31.6 30.8 - 35.9 gm/dL Plt Ct 364 153 - 416 x10E9/L RDW-CV 18.1 (H) 12.1 - 14.9 % MPV 9.3 (L) 9.4 - 12.9 fl Neutro 67.3 44.0 - 73.0 % Lymph 20.1 20.0 - 43.0 % Sumner 8.5 5.0 - 13.0 % Eos 3.1 0.0 - 6.0 % Baso 0.6 0.0 - 2.0 % Immature Grans 0.4 0 - 1 % Neutro Abs 6.07 2.01 - 7.14 x10E9/L Lymph Abs 1.81 1.07 - 3.94 x10E9/L Sumner Abs 0.77 0.26 - 1.07 x10E9/L Eosin Abs 0.28 0 - 0.47 x10E9/L Baso Abs 0.05 0 - 0.08 x10E9/L Immature Grans (Abs) 0.04 0.00 - 0.06 x10E9/L NRBC Auto 0 /100 WBC COMPREHENSIVE METABOLIC PANEL Result Value Ref Range Glucose 91 74 - 106 mg/dL Sodium 141 136 - 145 mmol/L Potassium 3.8 3.5 - 5.1 mmol/L Chloride 107 98 - 107 mmol/L CO2 28 22 - 31 mmol/L Calcium 9.0 8.5 - 10.1 mg/dL Anion Gap 6 (L) 8 - 16 mmol/L BUN 12 7 - 21 mg/dL Creatinine 0.79 0.50 - 1.30 mg/dL Alkaline Phosphatase 70 38 - 126 U/L ALT/SGPT 16 13 - 61 U/L AST/SGOT 15 5 - 40 U/L Protein Total 7.7 6.4 - 8.2 gm/dL Albumin 3.7 3.4 - 5.0 gm/dL Bili Total 0.3 0.2 - 1.0 mg/dL eGFR MDRD >60 >60 mL/min/1.73m2 eGFR MDRD AFR AMR >60 >60 mL/min/1.73m2 URINALYSIS REFLEX TO MICROSCOPIC NO CULTURE Result Value Ref Range Color UA Straw Straw, Yellow Clarity UA Clear Clear Glucose UA Negative Negative Bili UA Negative Negative Ketone UA Negative Negative Specific Golden UA 1.050 (H) 1.005 - 1.030 Blood UA 3+ (Abnormal) Negative pH UA 8.0 5.0 - 8.0 pH Protein UA Negative Negative Urobilinogen UA Negative Negative mg/dL Nitrite UA Negative Negative Leukocyte UA Trace (Abnormal) Negative Urine Microscopy Urine microscopy to follow HCG BETA BLOOD QUANTITATIVE Result Value Ref Range HCG Quant Serum <1 mIU/mL URINE MICROSCOPIC ONLY Result Value Ref Range RBC UA 0-5 0-5, None Seen # /hpf WBC UA 0-5 0-5, None Seen # /hpf Bacteria UA None Seen None Seen Squamous epithelial cells 3-5 None Seen, 0-2, 3-5 /hpf Mucus 1+ /LPF CT ABDOMEN AND PELVIS WITH IV CONTRAST Final Result CT abdomen and pelvis with contrast DATE: [...] 3. Chronic low position of the IUD. Progress Notes 8:52 AM: Initial Plan: Will order labs and CT Abdomen and Pelvis. Will reevaluate. 11:36 AM: Reviewed patient's CT - patient without any signs of infection in UA. Pt does have renal pelvis stone, ? Whether this and her congential horseshoe kidney is contributing, given the small caliber of current stone in distal ureter. 11:45 AM: I discussed with Dr. Zamora (Urology) all pertinent aspects of the case including HPI details, physical exam findings, testing completed, medications given, the pt's current condition, and my clinical impression. Dr. Zamora will follow-up with pt as an outpatient regarding CT findings. No acute intervention needed at this time. 11:54 AM: Rechecked on pt - patient feels much better. I discussed Dr. Zamora's plan with the patient. Patient is in agreement. Patient has no infection in urine. BP at 115/88. HR 83. Patient has an outpatient plan now to follow-up for definitive care. I discussed the results of diagnostic studies, [...] instructions. Vitals prior to discharge: Blood pressure 115/68, pulse 79, temperature 98.3 ??F (36.8 ??C), resp. rate 13, height 1.626 m (5' 4 ), weight 85.7 kg (189 lb), last menstrual period 12/26/2017, SpO2 100%, not currently . ED Course ED Course Medical Decision Making I have reviewed the: Previous Chart, Nursing Notes, Vitals. I have interpreted the following results: Labs, CT Scans and Oxygen Saturation. I have discussed the case with Urology. Differential Diagnosis: Kidney Stone Pyelonephritis Infected Stone Orders Placed This Encounter ??? CT ABDOMEN AND PELVIS WITH IV CONTRAST ??? CBC W AUTO DIFFERENTIAL ??? COMPREHENSIVE METABOLIC PANEL ??? URINALYSIS REFLEX TO MICROSCOPIC NO CULTURE ??? HCG BETA BLOOD QUANTITATIVE ??? HCG BETA BLOOD QUANTITATIVE ??? URINE MICROSCOPIC ONLY ??? HCG URINE QUALITATIVE - POINT OF CARE ??? DISCONTD: 0.9% NaCl injection 3 mL ??? DISCONTD: 0.9% NaCl injection 1-10 mL ??? DISCONTD: ondansetron (ZOFRAN) injection 4 mg ??? ketorolac (TORADOL) injection 30 mg ??? 0.9% NaCl IV Bolus ??? DISCONTD: 0.9% NaCl infusion ADS Med ??? DISCONTD: iopamidol (ISOVUE 370) 76 % contrast ??? 0.9% NaCl injection 0-10 mL ??? 0.9% NaCl IV Flush Bag ??? fentaNYL (PF) (SUBLIMAZE) injection 50 mcg ??? DISCONTD: ketorolac (TORADOL) injection 30 mg ??? HYDROcodone-acetaminophen (NORCO) 5-325 MG tablet Clinical Impression Final diagnoses: Abdominal pain, right upper quadrant Nephrolithiasis Vitals prior to discharge: Blood pressure 115/68, pulse 79, temperature 98.3 ??F (36.8 ??C), resp. rate 13, height 1.626 m (5'4 ), weight 85.7 kg (189 lb), last menstrual period 12/26/2017, SpO2 100 %, not currently . New Medications: Discharge Medication List as of 12/29/2017 11:55 AM I have advised the patient to follow-up with: Miller Zamora MD [address] [facility] [address] In 1 week Disposition: Discharged By signing my name below, I, Candice Rutledge, attest that this documentation has been prepared under the direction and in the presence of Dr. Frausto. Electronically Signed: Tevin Balbuena. 12/29/2017 1:28 PM I, Dr. Frausto, personally performed the services described in this documentation. All medical record entries made by the scribe were at my direction and in my presence. I have reviewed the chart and discharge instructions and agree that the record reflects my personal performance and is accurate and complete. Dr. Lalo Frausto MD , 12/29/2017 1:28 PM documented in this encounter Plan of Treatment Scheduled Orders Name Type Priority Associated Diagnoses Order Schedule HCG URINE QUALITATIVE - POINT OF CARE Point of Care Testing STAT ONCE for 1 Occurrences starting 12/29/2017 until 12/29/2017 documented as of this encounter Procedures Procedure Name Priority Date/Time Associated Diagnosis Comments URINALYSIS REFLEX TO MICROSCOPIC NO CULTURE STAT 12/29/2017 11:16 AM CDT URINE MICROSCOPIC ONLY STAT 8 11:[address] ABDOMEN PELVIS W CONTRAST STAT 12/29/2017 10:43 AM CDT Abdominal pain, right upper quadrant CBC W AUTO DIFFERENTIAL STAT 12/29/2017 9:03 AM CDT COMPREHENSIVE METABOLIC PANEL STAT 12/29/2017 9:03 AM CDT HCG BETA BLOOD QUANTITATIVE Add on 12/29/2017 9:03 AM CDT documented in this encounter Results * URINE MICROSCOPIC ONLY (12/29/2017 11:16 AM CDT) RBC UA 0-5 0-5, None Seen # /hpf 12/29/2017 11:28 AM CDT [facility] WBC UA 0-5 0-5, None Seen # /hpf 12/29/2017 11:28 AM CDT [facility] Bacteria UA None Seen None Seen 12/29/2017 11:28 AM CDT [facility] Squamous Epithelial Cells 3-5 None Seen, 0-2, 3-5 /hpf 12/29/2017 11:28 AM CDT [facility] Mucus UA 1+ /LPF 12/29/2017 11:28 AM CDT [facility] Urine URINE SPECIMEN OBTAINED BY CLEAN CATCH PROCEDURE / Unknown Collection / Unknown 12/29/2017 11:16 AM CDT 12/29/2017 11:18 AM CDT Narrative [facility] - 12/29/2017 11:28 AM CDT Lalo Frausto MD LAB - URINALYSIS ORD ERABLES Performing Organization Address [facility]/ZIP Co de Phone Number [facility] [address] [phone] * (ABNORMAL) URINALYSIS REFLEX TO MICROSCOPIC NO CULTURE (12/29/2017 11:16 AM CDT) Color UA Straw Straw, Yellow 12/29/2017 11:28 AM T [facility] Clarity UA Clear Clear 12/29/2017 11:28 AM T [facility] Glucose UA Negative Negative 12/29/2017 11:28 AM T [facility] Bilirubin UA Negative Negative 12/29/2017 11:28 AM T [facility] Ketone UA Negative Negative 12/29/2017 11:28 AM [facility] Specific Golden UA 1.050(H) 1.005 - 1.030 12/29/2017 11:28 AM T [facility] Blood UA 3+(A) Negative 12/29/2017 11:28 AM [facility] pH UA 8.0 5.0 - 8.0 pH 12/29/2017 11:28 AM T [facility] Protein UA Negative Negative 12/29/2017 11:28 AM T [facility] Urobilinogen UA Negative Negative mg/dL 12/29/2017 11:28 AM T [facility] Nitrite UA Negative Negative 12/29/2017 11:28 AM T [facility] Leukocyte UA Trace(A) Negative 12/29/2017 11:28 AM [facility] Urine Microscopy Urine microscopy to follow 12/29/2017 11:28 AM [facility] Urine URINE SPECIMEN OBTAINED BY CLEAN CATCH PROCEDURE / Unknown Collection / Unknown 12/29/2017 11:16 AM CDT 12/29/2017 11:18 AM CDT Narrative [facility] - 12/29/2017 11:28 AM CDT Lalo Frausto MD LAB - URINALYSIS ORD ERABLES Performing Organization Address City/[facility]/ZIP Co de Phone Number [facility] [address] [place] [address] * CT ABDOMEN AND PELVIS WITH IV CONTRAST (12/29/2017 10:43 AM CDT) Anatomical Region Laterality Modality Abdomen, Pelvis Computed [...] ??The lung bases are clear. Procedure Note Evre Rider MD - 12/29/2017 CT abdomen and [...] BETA BLOOD QUANTITATIVE (12/29/2017 9:03 AM CDT) hCG Quantitative <1 mIU/mL 12/30/19 18 9:30 AM T [facility] Blood BLOOD SPECIMEN / Unknown Venipuncture / Unknown 12/29/2017 9:03 AM CDT 12/29/2017 9:16 AM CDT Narrative [facility] - 12/29/2017 9:30 AM CDT ? [...] Frausto MD LAB - CHEMISTRY JOANNA YUNG [facility] Organization Address City/State/ZIP Co de Phone Number [facility] [address] [place] [address] * (ABNORMAL) COMPREHENSIVE METABOLIC PANEL (12/29/2017 9:03 AM CDT) Glucose 91 74 - 106 mg/dL 12/29/2017 9:23 AM CDT [facility] Sodium 141 136 - 145 mmol/L 12/29/2017 9:23 AM CDT [facility] Potassium 3.8 3.5 - 5.1 mmol/L 12/29/2017 9:23 AM CDT [facility] Chloride 107 98 - 107 mmol/L 12/29/2017 9:23 AM CDT [facility] CO2 28 22 - 31 mmol/L 12/29/2017 9:23 AM CDT [facility] Calcium 9.0 8.5 - 10.1 mg/dL 12/29/2017 9:23 AM CDT [facility] Anion Gap 6(L) 8 - 16 mmol/L 12/29/2017 9:23 AM CDT [facility] BUN 12 7 - 21 mg/dL 12/29/2017 9:23 AM CDT [facility] Creatinine 0.79 0.50 - 1.30 mg/dL 12/29/2017 9:23 AM CDT [facility] Alkaline Phosphatase 70 38 - 126 U/L 12/29/2017 9:23 AM CDT [facility] ALT 16 13 - 61 U/L 12/29/2017 9:23 AM CDT [facility] AST 15 5 - 40 U/L 12/29/2017 9:23 AM CDT [facility] Protein Total 7.7 6.4 - 8.2 gm/dL 12/29/2017 9:23 AM CDT [facility] Albumin 3.7 3.4 - 5.0 gm/dL 12/29/2017 9:23 AM CDT [facility] Bilirubin Total 0.3 0.2 - 1.0 mg/dL 12/29/2017 9:23 AM CDT [facility] eGFR by MDRD >60 >60 mL/min/1.7 3m2 12/29/2017 9:23 AM CDT [facility] eGFR by MDRD >60 >60 mL/min/1.7 3m2 12/29/2017 9:23 AM [facility] Blood BLOOD SPECIMEN / Unknown Venipuncture / Unknown 12/29/2017 9:03 AM CDT 12/29/2017 9:10 AM CDT Lalo Frausto MD LAB - CHEMISTRY JOANNA YUNG [facility] Organization Address City/State/ZIP Co de Phone Number [facility] [address] [place] [address] * (ABNORMAL) CBC W AUTO DIFFERENTIAL (12/29/2017 9:03 AM CDT) WBC 9.0 4.4 - 10.7 x10E9/L 12/29/2017 9:08 AM [facility] WBC Corrected x10E9/L 12/29/2017 9:08 AM [facility] RBC 4.62 3.80 - 5.20 x10E12/L 12/29/2017 9:08 AM [facility] Hemoglobin 11.5(L) 12.0 - 15.6 gm/dL 12/29/2017 9:08 AM [facility] Hematocrit 36.4 35.9 - 45.5 % 12/29/2017 9:08 AM [facility] MCV 78.8(L) 80.7 - 98.3 fl 12/29/2017 9:08 AM [facility] MCH 24.9(L) 26.7 - 34.0 pg 12/29/2017 9:08 AM [facility] MCHC 31.6 30.8 - 35.9 gm/dL 12/29/2017 9:08 AM [facility] Platelet Count 364 153 - 416 x10E9/L 12/29/2017 9:08 AM [facility] RDW-CV 18.1(H) 12.1 - 14.9 % 12/29/2017 9:08 AM [facility] MPV 9.3(L) 9.4 - 12.9 fl 12/29/2017 9:08 AM [facility] Neutrophils % 67.3 44.0 - 73.0 % 12/29/2017 9:08 AM CDT [facility] Lymphocytes % 20.1 20.0 - 43.0 % 12/29/2017 9:08 AM CDT [facility] Monocytes % 8.5 5.0 - 13.0 % 12/29/2017 9:08 AM CDT [facility] Eosinophils % 3.1 0.0 - 6.0 % 12/29/2017 9:08 AM CDT [facility] Basophils % 0.6 0.0 - 2.0 % 12/29/2017 9:08 AM T [facility] Immature Granulocytes 0.4 0 - 1 % 12/29/2017 9:08 AM T [facility] Neutrophil Absolute 6.07 2.01 - 7.14 x10E9/L 12/29/2017 9:08 AM T [facility] Lymphocytes Absolute 1.81 1.07 - 3.94 x10E9/L 12/29/2017 9:08 AM CDT [facility] Monocytes Absolute 0.77 0.26 - 1.07 x10E9/L 12/29/2017 9:08 AM T [facility] Eosinophils Absolute 0.28 0 - 0.47 x10E9/L 12/29/2017 9:08 AM T [facility] Basophils Absolute 0.05 0 - 0.08 x10E9/L 12/29/2017 9:08 AM [facility] Immature Granulocytes Absolute 0.04 0.00 - 0.06 x10E9/L 12/29/2017 9:08 AM [facility] nRBC Auto 0 /100 WBC 12/29/2017 9:08 AM [facility] Blood BLOOD SPECIMEN / Unknown Venipuncture / Unknown 12/29/2017 9:03 AM CDT 12/29/2017 9:05 AM CDT Lalo Frausto MD LAB - HEMATOLOGY ORD ERABLES [facility] [address] [place] [address] documented in this encounter Visit Diagnoses Diagnosis Abdominal pain, right upper quadrant Nephrolithiasis Calculus of kidney documented in this encounter Administered Medications Inactive Administered Medications - up to 3 most recent administrations Medication Order MAR Action Action Date Dose Rate Site 0.9% NaCl injection 0-10 mL 0-10 mL, Intracatheter, ONCE PRN, Other, Contrast flush, 1 dose, Starting on Thu12/29/17 at 1022, Until Thu12/29/17 at 1030, For administration with contrast. $ Given 12/29/2017 10:30 AM CDT 10 mL 0.9% NaCl injection 1-10 mL 1-10 mL, Intracatheter, PRN, Other, peripheral line flush, Starting on Thu12/29/17 at 0859, Until Thu12/29/17 at 1322, Flush peripheral IV catheter with 1-10 mL of normal saline before and after medications and prn to clear blood from the line or to verify patency. 0.9% NaCl injection 3 mL 3 mL, Intracatheter, EVERY 8 HOURS, 1095 doses, First dose on Thu12/29/17 at 0930, Last dose on Thu12/28/18 at 2200, Flush peripheral IV catheter with 3 mL of normal saline every 8 hours. 0.9% NaCl IV Bolus 1,000 mL, at 983.61 mL/hr, Administer over 61 Minutes, NOW, 1 dose, On Thu12/29/17 at 0930 $ New Bag/Syringe 12/29/2017 9:20 AM CDT 1,000 mL 983.61 mL/hr 0.9% NaCl IV Flush Bag 0-50 mL, Intracatheter, ONCE PRN, Contrast flush, 1 dose, Starting on Thu12/29/17 at 1022, Until Thu12/29/17 at 1030, For administration with contrast $ Given 12/29/2017 10:30 AM CDT 80 mL fentaNYL (PF) (SUBLIMAZE) injection 50 mcg 50 mcg, Intravenous, ONCE, 1 dose, On Thu12/29/17 at 1115 $ Given 12/29/2017 11:15 AM CDT 50 mcg iopamidol (ISOVUE 370) 76 % contrast Intravenous, CONTRAST ONCE, Starting on Thu12/29/17 at 1022, Until Thu12/29/17 at 1322 $ Given - Contrast 12/29/2017 10:30 AM CDT 100 mL ketorolac (TORADOL) injection 30 mg 30 mg, Intravenous, NOW, 1 dose, On Thu12/29/17 at 0915 $ Given 12/29/2017 9:56 AM CDT 30 mg ondansetron (ZOFRAN) injection 4 mg 4 mg, Intravenous, EVERY 30 MIN PRN, Nausea/Vomiting, 2 doses, Starting on Thu12/29/17 at 0859, Until Thu12/29/17 at 1322, Administer IV if patient is NPO, actively vomiting, or unable to swallow. $ Given 12/29/2017 9:04 AM CDT 4 mg documented in this encounter Active and Recently Administered Medications Times are shown in CDT. Scheduled Medication Order 12/27/2017 12/28/2017 12/29/2017 0.9% NaCl injection 3 mL(Linked Group 1) 3 mL, Intracatheter, EVERY 8 HOURS, 1095 doses, First dose on Thu12/29/17 at 0930, Last dose on Thu12/28/18 at 2200, Flush peripheral IV catheter with 3 mL of normal saline every 8 hours. 0930 (Due) 0.9% NaCl IV Bolus (COMPLETED) 1,000 mL, at 983.61 mL/hr, Administer over 61 Minutes, NOW, 1 dose, On Thu12/29/17 at 0930 0920 ($ New Bag/Syri nge - Provider: Glory Lino, RAZIA)1021 (Due: Stopped - Provider: Glory Lino, RAZIA) fentaNYL (PF) (SUBLIMAZE) injection 50 mcg (COMPLETED) 50 mcg, Intravenous, ONCE, 1 dose, On Thu12/29/17 at 1115 1115 ($ Given - Prov ider: Glory Lino RN) iopamidol (ISOVUE 370) 76 % contrast Intravenous, CONTRAST ONCE, Starting on Thu12/29/17 at 1022, Until Thu12/29/17 at 1322 1030 ($ Given - Cont rast - Provider: Waleska Shahid) ketorolac (TORADOL) injection 30 mg (COMPLETED) 30 mg, Intravenous, NOW, 1 dose, On Thu12/29/17 at 0915 0956 ($ Given - Prov ider: Glory Lino, RAZIA) PRN Medication Order 12/27/2017 12/28/2017 12/29/2017 0.9% NaCl injection 0-10 mL (COMPLETED) 0-10 mL, Intracatheter, ONCE PRN, Other, Contrast flush, 1 dose, Starting on Thu12/29/17 at 1022, Until Thu12/29/17 at 1030, For administration with contrast. 1030 ($ Given - Prov ider: Waleska Shahid) 0.9% NaCl injection 1-10 mL(Linked Group 1) 1-10 mL, Intracatheter, PRN, Other, peripheral line flush, Starting on Thu12/29/17 at 0859, Until Thu12/29/17 at 1322, Flush peripheral IV catheter with 1-10 mL of normal saline before and after medications and prn to clear blood from the line or to verify patency. 0.9% NaCl IV Flush Bag (COMPLETED) 0-50 mL, Intracatheter, ONCE PRN, Contrast flush, 1 dose, Starting on Thu12/29/17 at 1022, Until Thu12/29/17 at 1030, For administration with contrast 1030 ($ Given - Prov ider: Waleska Shahid) ondansetron (ZOFRAN) injection 4 mg 4 mg, Intravenous, EVERY 30 MIN PRN, Nausea/Vomiting, 2 doses, Starting on Thu12/29/17 at 0859, Until Thu12/29/17 at 1322, Administer IV if patient is NPO, actively vomiting, or unable to swallow. 903 ($ Given - Prov ider: Glory Lino RN) Linked Groups Order Group 1: SALINE LOCK, INSERT AND MAINTAIN (CANCELED) Routine, CONTINUOUS, Starting on Thu12/29/17 at 0900, Until Specified, New collection And 0.9% NaCl injection 3 mLJump to med 3 mL, Intracatheter, EVERY 8 HOURS, 1095 doses, First dose on Thu12/29/17 at 0930, Last dose on Thu12/28/18 at 2200, Flush peripheral IV catheter with 3 mL of normal saline every 8 hours. And 0.9% NaCl injection 1-10 mLJump to med 1-10 mL, Intracatheter, PRN, Other, peripheral line flush, Starting on Thu12/29/17 at 0859, Until Thu12/29/17 at 1322, Flush peripheral IV catheter with 1-10 mL of normal saline before and after medications and prn to clear blood from the line or to verify patency. documented in this encounter
--- OUTSIDE RECORDS SUMMARY | 2024-09-25 11:48 | XMS_ITS | Encounter Summary ---
Author Organization [facility] Address [address] [place] [address] Care Team Providers Care Aircraft Captain Name Role Phone Clinicpc, [facility] Primary Care Provider Unavailable Reason for Visit * Reason Comments Pain Flank Pt presents to ER wi th urinary pain that stated this a.m. Encounter Details Date Type Department Care Team (Late st Contact Info) Description 12/15/2016 11:16 AM CDT - 12/15/2016 1:06 PM CDT Emergency ER at [address] [address] Abdominal pain, lower; Constipation, unspecified constipation type; Hematuria; Vaginal discharge Discharge Disposition: Home or Self Care Social History Tobacco Use Types Packs/Day Years Used Date Smoking Tobacco: Every Day Cigarettes Smokeless Tobacco: Never Comments:[place]uit smoking in [place] Alcohol Use Standard Drinks/Week Comments Yes 0 (1 standard drink = 0.6 oz pur e alcohol) rarely Sex and Gender Information Value Date Recorded Sex Assigned at Not on file Gender Identity Not on file Sexual Orientation Not on file documented as of this encounter Last Filed Vital Signs Vital Sign Reading Time Taken Comments Blood Pressure 92/56 12/15/2016 10:11 AM CDT Pulse 94 12/15/2016 10:11 AM CDT Temperature 36.8 ??C (98.3 ??F) 12/15/2016 10:11 AM C DT Respiratory Rate 18 12/15/2016 10:11 AM CDT Oxygen Saturation 100% 12/15/2016 10:11 AM CDT Inhaled Oxygen Concentration - - Weight 86.2 kg (190 lb) 12/15/2016 10:11 AM CDT Height 162.6 cm (5' 4 ) 12/15/2016 10:11 AM CDT Body Mass Index 32.61 12/15/2016 10:11 AM CDT documented in this encounter Functional [...] this encounter Discharge Instructions * Discharge Instructions* Lucas Mariscal PA-C - 12/15/2016 12:59 PM CDT Images from the original note were not included. You can use the MiraLax twice a day until a bowel movement is produced. If no bowel movements in the next 1-2 days use [id number] magnesium citrate. Need to follow up with PCP for repeat urinalysis to make sure hematuria has resolved. Constipation Constipation is when a person: ?? Poops (has a bowel movement) less than 3 times a week. ?? Has a hard time pooping. ?? Has poop that is dry, hard, or bigger than normal. HOME CARE ?? Eat foods with a lot of fiber in them. This includes fruits, vegetables, beans, and whole grainssuch as brown rice. ?? Avoid fatty foods and foods with a lot of sugar. This includes panamanian fries, hamburgers, cookies, candy, and soda. ?? If you are not getting enough fiber from food, take products with added fiber in them (supplements). ?? Drink enough fluid to keep your pee (urine) clear or pale yellow. ?? Exercise on a regular basis, or as told by your doctor. ?? Go to the restroom when you feel like you need to poop. Do not hold it. ?? Only take medicine as told by your doctor. Do not take medicines that help you poop (laxatives) without talking to your doctor first. GET HELP RIGHT AWAY IF: ?? You have bright red blood in your poop (stool). ?? Your constipation lasts more than 4 days or gets worse. ?? You have belly (abdominal) or butt (rectal) pain. ?? You have thin poop (as thin as a pencil). ?? You lose weight, and it cannot be explained. MAKE SURE YOU: ?? Understand these instructions. ?? Will watch your condition. ?? Will get help right away if you are not doing well or get worse. Document Released: 02/09/2009 Document Revised: 08/29/2014 Document Reviewed: 06/05/2014 ExitCare?? Patient Information ??2015 [employer]. This information is not intended to replace advice given to you by your health care provider. Make sure you discuss any questions you have with your health care provider. Hematuria Hematuria is blood in your urine. It can be caused by a bladder infection, kidney infection, prostate infection, kidney stone, or cancer of your urinary tract. Infections can usually be treated with medicine, and a kidney stone usually will pass through your urine. If neither of these is the cause of your hematuria, further workup to find out the reason may be needed. It is very important that you tell your health care provider about any blood you see in your urine,even if the blood stops without treatment or happens without causing pain. Blood in your urine thathappens and then stops and then happens again can be a symptom of a very serious condition. Also, pain is not a symptom in the initial stages of many urinary cancers. HOME CARE INSTRUCTIONS ?? Drink lots of fluid, 3-4 quarts a day. If you have been diagnosed with an infection, cranberry juice is especially recommended, in addition to large amounts of water. ?? Avoid caffeine, tea, and carbonated beverages because they tend to irritate the bladder. ?? Avoid alcohol because it may irritate the prostate. ?? Take all medicines as directed by your health care provider. ?? If you were prescribed an antibiotic medicine, finish it all even if you start to feel better. ?? If you have been diagnosed with a kidney stone, follow your health care provider's instructions regarding straining your urine to catch the stone. ?? Empty your bladder often. Avoid holding urine for long periods of time. ?? After a bowel movement, women should cleanse front to back. Use each tissue only once. ?? Empty your bladder before and after sexual intercourse if you are a female. SEEK MEDICAL CARE IF: ?? You develop back pain. ?? You have a fever. ?? You have a feeling of sickness in your stomach (nausea) or vomiting. ?? Your symptoms are not better in 3 days. Return sooner if you are getting worse. SEEK IMMEDIATE MEDICAL CARE IF: ?? You develop severe vomiting and are unable to keep the medicine down. ?? You develop severe back or abdominal pain despite taking your medicines. ?? You begin passing a large amount of blood or clots in your urine. ?? You feel extremely weak or faint, or you pass out. MAKE SURE YOU: ?? Understand these instructions. ?? Will watch your condition. ?? Will get help right away if you are not doing well or get worse. Document Released: 08/24/2006 Document Revised: 01/08/2015 Document Reviewed: 04/24/2014 ExitCare?? Patient Information ??2015 [employer]. This information is not intended to replace advice given to you by your health care provider. Make sure you discuss any questions you have with your health care provider. Low Cost Clinics (You may qualify for free service) If you are NOT a legal resident, citizen or refugee and don???t have health insurance you can go tothe following clinics: [facility] [address] [place] [address] Appointments: [phone] [facility]. [address] [place] [address] [facility] [address] [address] Appointments: [phone] [facility] video. [address] [place], [place] [id number] [facility] [address] [place] [address] [facility], [facility]. [address] [place], [place] [id number] [facility] [address] [place] [address] [facility] [address] [place] [address] [facility] [address] [place] [address] Appointments: [phone] [facility] [address] [place] [address] without health insurance and you are not a citizen, refugee or legal resident yet? You may qualify to receive ???Medicaid for Women?? and it is free. For more information, call one of the Locations listed above If your child was born in the [facility] or is a legal resident for more than 5 years, he/she may be eligible for free or low cost health insurance: MC+: If the child is not eligible, you can still bring him/her to the clinics listed above to receive medical check-ups, shots and treatments For information about low cost medicines, call: documented in this encounter Medications at Time of Discharge Medication Sig Dispensed Refills Start Date End Date albuterol HFA (PROVENTIL;VENTOLIN;CA OAIR) 108 (90 BASE) MCG/ACT inhaler Inhale 2 Puffs by mouth every 6 hours as needed Reported on 10/23/2016 02/21/2021 benzonatate (TESSALON) 100 MG capsule Take 1 Cap by mouth 3 times daily as needed for Cough 30 Cap 10/10/2016 10/13/2017 HYDROcodone-acetaminop hen (NORCO) 5-325 MG tablet Take 1 Tab by mouth every 6 hours as needed for Pain 10 Tab 12/15/2016 10/13/2017 ketorolac (TORADOL) 10 MG tablet Take 1 Tab by mouth every 6 hours as needed for Pain 20 Tab 10/23/2016 10/13/2017 phenazopyridine (PYRIDIUM) 200 MG tablet Take 1 Tab by mouth 3 times daily as needed 6 Tab 10/03/2016 10/13/2017 polyethylene glycol 3350 (MIRALAX) powder Take 17 g by mouth once daily as needed for Constipation 119 g 12/15/2016 10/13/2017 documented as of this encounter ED Notes * Rosanne Hernandez RN - 12/15/2016 1:06 PM CDT Pt discharged to home. Ambulatory to the waiting rm. Discharge instructions and medications reviewed. Pt verbalized understanding. * Lucas Mariscal PA-C - 12/15/2016 11:50 AM CDT Provider contact with the patient: 12/15/2016 11:50 [address] [place] [address] [facility] EM[facility]ENC[facility] History Chief Complaint Patient presents with ??? Pain Flank Pt presents to ER with urinary pain that stated this a.m. HPI The patient is a 26-year-old female who comes to the ED today with complaints of pelvic pain. Reports this pain started this morning, present intermittently, she does have pain with urination. Rates the pain as 7/10 at its worst. Admits to white vaginal discharge for the past 2 weeks. Denies any flank pain. Denies any fevers. Last menstrual period was middle of November. Admits to previous history of similar pain with kidney stones in the past. Denies any nausea, vomiting, diarrhea, constipation or any other symptoms. Past Medical History Diagnosis Date ??? Asthma remote ??? Chlamydia this ??? GBS (group B streptococcus) UTI complicating 08/07/2014 ??? History of anemia ??? History of sexually transmitted disease ??? Kidney stones ??? Migraines ??? depression ??? Trichomonas Treated this Past Surgical History Procedure Laterality Date ??? Negative surgical history Family History Problem Relation Age of Onset ??? Hypertension Maternal Grandmother ??? Hypertension Mother History Social History ??? Marital status: Single Spouse name: N/A ??? Number of children: N/A ??? Years of education: N/A Occupational History ??? Not on file. Social History Main Topics ??? Smoking status: Current Every Day Smoker Packs/day: 0.50 ??? Smokeless tobacco: Never Used Comment: Quit smoking in December ??? Alcohol use: 0.0 oz/week 0 Standard drinks or equivalent per week Comment: rarely ??? Drug use: No ??? Sexual activity: Not on file Other Topics Concern ??? Not on file Social History Narrative Allergies Allergen Reactions ??? Augmentin Hives Review of Systems Review of Systems Constitutional: Negative for chills, fever and malaise/fatigue. HENT: Negative for ear pain and tinnitus. Eyes: Negative for blurred vision and double vision. Respiratory: Negative for shortness of breath. Cardiovascular: Negative for chest pain. Gastrointestinal: Positive for abdominal pain. Negative for constipation, diarrhea, nausea and vomiting. Genitourinary: Positive for dysuria. Negative for flank pain, frequency, hematuria and urgency. Skin: Negative for rash. Neurological: Negative for focal weakness, loss of consciousness, weakness and headaches. Psychiatric/Behavioral: Negative for suicidal ideas. All other systems reviewed and are negative. Physical Exam BP 92/56 Pulse 94 Temp 98.3 ??F Resp 18 Ht 1.626 m (5' 4 ) Wt 86.2 kg (190 lb) SpO2 100% BMI 32.61 kg/m2 Physical Exam Constitutional: She is oriented to person, place, and time. She appears well- developed and well-nourished. HENT: Head: Normocephalic and atraumatic. Eyes: EOM are normal. Pupils are equal, round, and reactive to light. Cardiovascular: Normal rate, regular rhythm and intact distal pulses. Exam reveals no gallop and no friction rub. No murmur heard. Pulmonary/Chest: Effort normal and breath sounds normal. No respiratory distress. She has no wheezes. She has no rales. Abdominal: Soft. Bowel sounds are normal. She exhibits no distension and no mass. There is tenderness. There is no rebound and no guarding. No hernia. Suprapubic tenderness, otherwise nontender to palpate over rest of abdomen, flanks and CVAs. Genitourinary: Genitourinary Comments: No vaginal discharge noted. No cervical motion tenderness. Adnexal tenderness bilaterally. Thick white discharge noted from cervix. IUD strings in place. Exam done with Rosanne RANDLE in room Neurological: She is alert and oriented to person, place, and time. She has normal reflexes. No cranial nerve deficit. Coordination normal. Skin: Skin is warm and dry. Psychiatric: She has a normal mood and affect. Her behavior is normal. Judgment and thought contentnormal. Medications Current Outpatient Prescriptions Medication Sig Dispense Refill ??? HYDROcodone-acetaminophen (NORCO) 5-325 MG tablet Take 1 Tab by mouth every 6 hours as needed for Pain 10 Tab 0 ??? polyethylene glycol 3350 (MIRALAX) powder Take 17 g by mouth once daily as needed for Constipation 119 g 0 ??? ketorolac (TORADOL) 10 MG tablet Take 1 Tab by mouth every 6 hours as needed for Pain 20 Tab 0 ??? benzonatate (TESSALON) 100 [...] Spot Check. Oxygen saturation interpretation is Normal. Hospital Encounter on 12/15/16 TRICHOMONAS RAPID TEST Result Value Ref Range Trichomonas Rapid Test Negative Negative CBC W AUTO DIFFERENTIAL Result Value Ref Range WBC 7.6 4.4 - 10.7 x10E9/L WBC Corrected x10E9/L RBC 4.43 3.80 - 5.20 x10E12/L Hgb 11.3 (L) 12.0 - 15.6 gm/dL HCT 34.3 (L) 35.9 - 45.5 % MCV 77.4 (L) 80.7 - 98.3 fl MCH 25.5 (L) 26.7 - 34.0 pg MCHC 32.9 30.8 - 35.9 gm/dL Plt Ct 379 153 - 416 x10E9/L RDW-CV 17.7 (H) 12.1 - 14.9 % MPV 9.4 9.4 - 12.9 fl Neutro 54.5 44.0 - 73.0 % Lymph 30.4 20.0 - 43.0 % [place] 9.8 5.0 - 13.0 % Eos 4.0 0.0 - 6.0 % Baso 0.8 0.0 - 2.0 % Immature Grans 0.5 0 - 1 % Neutro Abs 4.12 2.01 - 7.14 x10E9/L Lymph Abs 2.30 1.07 - 3.94 x10E9/L [place] Abs 0.74 0.26 - 1.07 x10E9/L Eosin Abs 0.30 0 - 0.47 x10E9/L Baso Abs 0.06 0 - 0.08 x10E9/L Immature Grans (Abs) 0.04 0.00 - 0.06 x10E9/L NRBC Auto 0 /100 WBC COMPREHENSIVE METABOLIC PANEL Result Value Ref Range Glucose 83 74 - 106 mg/dL Sodium 137 136 - 145 mmol/L Potassium 3.6 3.5 - 5.1 mmol/L Chloride 105 98 - 107 mmol/L CO2 25 22 - 31 mmol/L Calcium 8.9 8.5 - 10.1 mg/dL Anion Gap 7 (L) 8 - 16 mmol/L BUN 11 7 - 21 mg/dL Creatinine 0.67 0.50 - 1.30 mg/dL Alk Phos 51 38 - 126 U/L ALT/SGPT 14 13 - 61 U/L AST/SGOT 10 5 - 40 U/L Protein Total 7.4 6.4 - 8.2 gm/dL Albumin 3.6 3.4 - 5.0 gm/dL Bili Total 0.4 0.2 - 1.0 mg/dL eGFR MDRD >60 >60 mL/min/1.73m2 eGFR MDRD AFR AMR >60 >60 mL/min/1.73m2 URINALYSIS ROUTINE W/REFLEX TO CULTURE Result Value Ref Range Color UA Yellow Straw, Yellow, Dark Yellow Clarity UA Cloudy Specific [place] UA >=1.030 1.005 - 1.030 pH UA 6.0 5.0 - 8.0 pH Protein UA 1+ (Abnormal) Negative Blood UA 3+ (Abnormal) Negative Leukocyte UA Negative Negative Nitrite UA Negative Negative Glucose UA Negative Negative Ketone UA Trace (Abnormal) Negative Bili UA Negative Negative Urobilinogen UA 1.0 0.1 - 1.0 EU/dL Urine Microscopy Urine microscopy to follow Reflex Status Culture not indicated URINALYSIS MICROSCOPIC ONLY W/REFLEX CULTURE Result Value Ref Range RBC UA >100 (Abnormal) 0-2, 2-5 # /hpf WBC UA 0-2 0-2, 2-5 # /hpf Bacteria UA 1+ (Abnormal) None Seen Epithelial Cell UA 0-2 0-2, 2-5 # /hpf Mucus 3+ Hyaline Casts 0-2 0 - 2 # /lpf HCG URINE QUALITATIVE Result Value Ref Range HCG Qual Urine Negative Negative XR ABDOMEN 1 VW Final Result Abdomen KUB Indication for examination: Low abdominal and pelvic pain Single AP view of the abdomen in supine position shows considerable stool in the colon. There is no ileus or mechanical obstruction. An intrauterine device is identified overlying the pelvis. CONCLUSION: Considerable stool. No ileus or mechanical obstruction identified. Progress Notes 1207: Differential includes vaginitis versus STDs versus PID. Renal stone less likely, will check KUB and pelvic exam. 1:00 PM Rechecked pt - feeling better. Went over results. Pain may be from constipation. She may bepassing or have already passed a renal stone. Not felt to have PID. Will follow up on STD testing, offered empiric treatment patient refused. She understands that her symptoms she needs to come back to the ED for further evaluation. I have given the patient instructions regarding her diagnosis, expectations, follow up, and return precautions. I explained to the patient that emergent conditions may arise and to return to the ER for new, worsening, or any persistent conditions. I've explained the importance of following up with her doctor--[facility] as instructed. The patient verbalizedunderstanding of the discharge instructions. Diagnosis: Final diagnoses: Abdominal pain, lower Constipation, unspecified constipation type Hematuria Vaginal discharge New Medications: Discharge Medication List as of 12/15/2016 1:00 PM START taking these medications Details polyethylene glycol 3350 (MIRALAX) powder Disp-119 g, R-0, Take 17 g by mouth once daily as needed for Constipation, Print I have advised the patient to follow-up with: Brie, [facility] [address] [facility] [address] Call today for f/u Disposition: Discharged 12/15/2016 1:00 PM ED Course ED Course There is no data filed. Medical Decision Making I have reviewed the: Vitals. I have interpreted the following results: Labs, X-Ray, Oxygen Saturation. Orders Placed This Encounter ??? TRICHOMONAS RAPID TEST ??? CHLAMYDIA + GC AMPLIFIED PROBE ??? XR ABDOMEN 1 VW ??? CBC W AUTO DIFFERENTIAL ??? COMPREHENSIVE METABOLIC PANEL ??? URINALYSIS ROUTINE W/REFLEX TO CULTURE ??? URINALYSIS MICROSCOPIC ONLY W/REFLEX CULTURE ??? HCG URINE QUALITATIVE ??? HCG URINE QUALITATIVE - POINT OF CARE (IP) ??? DISCONTD: 0.9% NaCl injection 1-10 mL ??? ketorolac (TORADOL) injection 60 mg ??? DISCONTD: polyethylene glycol 3350 (MIRALAX) powder ??? DISCONTD: HYDROcodone-acetaminophen (NORCO) 5-325 MG tablet ??? HYDROcodone-acetaminophen (NORCO) 5-325 MG tablet ??? polyethylene glycol 3350 (MIRALAX) powder Clinical Impression Final diagnoses: Abdominal pain, lower Constipation, unspecified constipation type Hematuria Vaginal discharge * Rosanne Hernandez RN - 12/15/2016 11:24 AM CDT Pt presents to ER with urinary pain that stated this a.m. documented in this encounter Plan of Treatment Scheduled Orders Name Type Priority Associated Diagnoses Order Schedule HCG URINE QUALITATIVE - POINT OF CARE (IP) Point of Care Testing STAT ONCE for 1 Occurrences starting 12/15/2016 until 12/15/2016 documented as of this encounter Procedures Procedure Name Priority Date/Time Associated Diagnosis Comments XR ABDOMEN KUB STAT 12/15/2016 12:25 PM CDT Abdominal pain, lower TRICHOMONAS RAPID TEST STAT 7 12:15 PM CDT CHLAMYDIA + GC AMPLIFIED PROBE STAT 12/15/2016 12:15 PM CDT URINE MICROSCOPIC ONLY REFLEX TO CULTURE STAT 12/15/2016 10:55 AM CDT URINALYSIS REFLEX MICROSCOPIC REFLEX CULTURE STAT 12/15/2016 10:55 AM CDT HCG URINE QUALITATIVE Add on 12/15/2016 10:55 AM CDT CBC W AUTO DIFFERENTIAL STAT 12/15/2016 10:23 AM CDT COMPREHENSIVE METABOLIC PANEL STAT 12/15/2016 10:23 AM CDT documented in this encounter Results * XR ABDOMEN 1 VW (12/15/2016 12:25 [...] Lucas Mariscal PA-C DIAGNOSTIC IMAGING ORDERABLES * CHLAMYDIA + GC AMPLIFIED PROBE (12/15/2016 12:15 PM CDT) Chlamydia Amplified Probe Negative Negative 12/16/2016 9:02 AM CDT [facility]CRO[facility] GC Amplified Probe Negative Negative 12/16/2016 9:02 AM CDT [facility]CRO[facility] Microbiology ENTIRE ENDOCERVIX / Unknown 12/15/2016 12:15 PM CDT 12/15/2016 12:17 PM CDT Narrative [facility]CROBIOLOGY - 12/16/2016 9:02 AM CDT Results based on detection/no detection of ribosomal RNA by amplified method. Lucas ELMOREC [facility] - MICR OBIOLOGY ORDERABLES Performing Organization Address City/[facility]/ZIP Co de Phone Number [facility] MICROBIOLOGY [address] [place] [address], [facility] [phone] * TRICHOMONAS RAPID TEST (12/15/2016 12:15 PM CDT) Trichomonas Rapid Test Negative Negative 12/15/2016 12:30 PM CDT [facility] Microbiology ENTIRE VAGINA / Unknown 12/15/2016 12:15 PM CDT 12/15/2016 12:17 PM CDT Lucas [facility] - MICR OBIOLOGY ORDERABLES Performing Organization Address [facility] Co de Phone Number [facility] [id number] [place] [address] * HCG URINE QUALITATIVE (12/15/2016 10:55 AM CDT) Pathologist [facility] hCG Qualitative Urine Negative Negative 12/15/2016 12:16 PM CDT [facility] Urine URINE SPECIMEN OBTAINED BY CLEAN CATCH PROCEDURE / Unknown 12/15/2016 10:55 AM CDT 12/15/2016 11:14 AM CDT Lucas ELMOR[facility] - URIN ALYSIS ORDERABLES Performing Organization Address [facility] Co de Phone Number [facility] [address] [place] [address] * (ABNORMAL) URINALYSIS MICROSCOPIC ONLY W/REFLEX CULTURE (12/15/2016 10:55 AM CDT) RBC UA >100(A) 0-2, 2-5 # /hpf 12/15/2016 11:31 AM CDT [facility] WBC UA 0-2 0-2, 2-5 # /hpf 12/15/2016 11:31 AM CDT [facility] Bacteria UA 1+(A) None Seen 12/15/2016 11:31 AM CDT [facility] Epithelial Cell UA 0-2 0-2, 2-5 # /hpf 12/15/2016 11:31 AM CDT [facility] Mucus UA 3+ 12/15/2016 11:31 AM CDT [facility] Hyaline Casts 0-2 0 - 2 # /lpf 12/15/2016 11:31 AM T [facility] Urine URINE SPECIMEN OBTAINED BY CLEAN CATCH PROCEDURE / Unknown 12/15/2016 10:55 AM CDT 12/15/2016 11:14 AM CDT Ezequiel Ellis MD LAB - URINALYSIS ORD ERABLES [facility] [address] [place] [address] * (ABNORMAL) URINALYSIS ROUTINE W/REFLEX TO CULTURE (12/15/2016 10:55 AM CDT) Color UA Yellow Straw, Yellow, Dark Yellow 12/15/2016 11:23 AM T [facility] Clarity UA Cloudy 12/15/2016 11:23 AM [facility] Specific [place] UA >=1.030 1.005 - 1.030 12/15/2016 11:23 AM [facility] pH UA 6.0 5.0 - 8.0 pH 12/15/2016 11:23 AM [facility] Protein UA 1+(A) Negative 12/15/2016 11:23 AM T [facility] Blood UA 3+(A) Negative 12/15/2016 11:23 AM T [facility] Leukocyte UA Negative Negative 12/15/2016 11:23 AM T [facility] Nitrite UA Negative Negative 12/15/2016 11:23 AM T [facility] Glucose UA Negative Negative 12/15/2016 11:23 AM T [facility] Ketone UA Trace(A) Negative 12/15/2016 11:23 AM T [facility] Bilirubin UA Negative Negative 12/15/2016 11:23 AM [facility] Urobilinogen UA 1.0 0.1 - 1.0 EU/dL 12/15/2016 11:23 AM [facility] Urine Microscopy Urine microscopy to follow 12/15/2016 11:23 AM CDT [facility] Reflex Status Culture not indicated 12/15/2016 11:23 AM CDT [facility] Urine URINE SPECIMEN OBTAINED BY CLEAN CATCH PROCEDURE / Unknown 12/15/2016 10:55 AM CDT 12/15/2016 11:14 AM CDT Ezequiel Ellis MD LAB - URINALYSIS ORD ERABLES [facility] [address] [place] [address] * (ABNORMAL) COMPREHENSIVE METABOLIC PANEL (12/15/2016 10:23 AM CDT) Glucose 83 74 - 106 mg/dL 12/15/2016 10:57 AM CDT [facility] Sodium 137 136 - 145 mmol/L 12/15/2016 10:57 AM CDT [facility] Potassium 3.6 3.5 - 5.1 mmol/L 12/15/2016 10:57 AM CDT [facility] Chloride 105 98 - 107 mmol/L 12/15/2016 10:57 AM CDT [facility] CO2 25 22 - 31 mmol/L 12/15/2016 10:57 AM CDT [facility] Calcium 8.9 8.5 - 10.1 mg/dL 12/15/2016 10:57 AM [facility] Anion Gap 7(L) 8 - 16 mmol/L 12/15/2016 10:57 AM CDT [facility] LABORATORY BUN 11 7 - 21 mg/dL 12/15/2016 10:57 AM CDT [facility] Creatinine 0.67 0.50 - 1.30 mg/dL 12/15/2016 10:57 AM CDT [facility] Alkaline Phosphatase 51 38 - 126 U/L 12/15/2016 10:57 AM CDT [facility] ALT 14 13 - 61 U/L 12/15/2016 10:57 AM CDT [facility] AST 10 5 - 40 U/L 12/15/2016 10:57 AM T [facility] Protein Total 7.4 6.4 - 8.2 gm/dL 12/15/2016 10:57 AM CDT [facility] Albumin 3.6 3.4 - 5.0 gm/dL 12/15/2016 10:57 AM CDT [facility] Bilirubin Total 0.4 0.2 - 1.0 mg/dL 12/15/2016 10:57 AM CDT [facility] eGFR by MDRD >60 >60 mL/min/1.7 3m2 12/15/2016 10:57 AM CDT [facility] eGFR by MDRD >60 >60 mL/min/1.7 3m2 12/15/2016 10:57 AM CDT [facility] Blood BLOOD SPECIMEN / Unknown 12/15/2016 10:23 AM CDT 12/15/2016 10:39 AM CDT Ezequiel Ellis MD LAB - CHEMISTRY [facility] Organization Address City/State/ZIP Co de Phone Number [facility] [address] [place] [address] * (ABNORMAL) CBC W AUTO DIFFERENTIAL (12/15/2016 10:23 AM CDT) WBC 7.6 4.4 - 10.7 x10E9/L 12/15/2016 10:42 AM CDT [facility] WBC Corrected x10E9/L 12/15/2016 10:42 AM CDT [facility] RBC 4.43 3.80 - 5.20 x10E12/L 12/15/2016 10:42 AM CDT [facility] Hemoglobin 11.3(L) 12.0 - 15.6 gm/dL 12/15/2016 10:42 AM CDT [facility] Hematocrit 34.3(L) 35.9 - 45.5 % 12/15/2016 10:42 AM CDT [facility] MCV 77.4(L) 80.7 - 98.3 fl 12/15/2016 10:42 AM CDT [facility] MCH 25.5(L) 26.7 - 34.0 pg 12/15/2016 10:42 AM CDT [facility] MCHC 32.9 30.8 - 35.9 gm/dL 12/15/2016 10:42 AM CDT [facility] Platelet Count 379 153 - 416 x10E9/L 12/15/2016 10:42 AM CDT [facility] RDW-CV 17.7(H) 12.1 - 14.9 % 12/15/2016 10:42 AM CDT [facility] MPV 9.4 9.4 - 12.9 fl 12/15/2016 10:42 AM CDT [facility] Neutrophils % 54.5 44.0 - 73.0 % 12/15/2016 10:42 AM CDT [facility] Lymphocytes % 30.4 20.0 - 43.0 % 12/15/2016 10:42 AM CDT [facility] Monocytes % 9.8 5.0 - 13.0 % 12/15/2016 10:42 AM CDT [facility] Eosinophils % 4.0 0.0 - 6.0 % 12/15/2016 10:42 AM CDT [facility] Basophils % 0.8 0.0 - 2.0 % 12/15/2016 10:42 AM CDT [facility] Immature Granulocytes 0.5 0 - 1 % 12/15/2016 10:42 AM CDT [facility] Neutrophil Absolute 4.12 2.01 - 7.14 x10E9/L 12/15/2016 10:42 AM CDT [facility] Lymphocytes Absolute 2.30 1.07 - 3.94 x10E9/L 12/15/2016 10:42 AM CDT [facility] Monocytes Absolute 0.74 0.26 - 1.07 x10E9/L 12/15/2016 10:42 AM CDT [facility] Eosinophils Absolute 0.30 0 - 0.47 x10E9/L 12/15/2016 10:42 AM CDT [facility] Basophils Absolute 0.06 0 - 0.08 x10E9/L 12/15/2016 10:42 AM CDT [facility] Immature Granulocytes Absolute 0.04 0.00 - 0.06 x10E9/L 12/15/2016 10:42 AM CDT [facility] nRBC Auto 0 /100 WBC 12/15/2016 10:42 AM CDT [facility] Blood BLOOD SPECIMEN / Unknown 12/15/2016 10:23 AM CDT 12/15/2016 10:39 AM CDT Ezequiel Ellis MD LAB - HEMATOLOGY ORD ERABLES [facility] [address] [place] [address] documented in this encounter Visit Diagnoses Diagnosis Abdominal pain, lower Abdominal pain, other specified site Constipation, unspecified constipation type Hematuria Vaginal discharge Leukorrhea, not specified as infective documented in this encounter Administered Medications Inactive Administered Medications - up to 3 most recent administrations Medication Order MAR Action Action Date Dose Rate Site 0.9% NaCl injection 1-10 mL 1-10 mL, Intracatheter, PRN, Other, Starting on Thu12/15/16 at 1012, Until Thu12/15/16 at 1406 ketorolac (TORADOL) injection 60 mg 60 mg, Intramuscular, NOW, 1 dose, On Thu12/15/16 at 1230, Give once test is confirmed to be negative $ Given 12/15/2016 12:42 PM CDT 60 mg Left Dorsogluteal documented in this encounter Active and Recently Administered Medications Times are shown in CDT. Scheduled Medication Order 12/13/2016 12/14/2016 12/15/2016 ketorolac (TORADOL) injection 60 mg (COMPLETED) 60 mg, Intramuscular, NOW, 1 dose, On Thu12/15/16 at 1230, Give once test is confirmed to be negative 1242 ($ Given - Prov ider: Rowena Ramsay, EMT-P) PRN Medication Order 12/13/2016 12/14/2016 12/15/2016 0.9% NaCl injection 1-10 mL 1-10 mL, Intracatheter, PRN, Other, Starting on Thu12/15/16 at 1012, Until Thu12/15/16 at 1406 documented in this encounter Care Teams Aircraft Captain Relationship Specialty Start Date End Date [facility], [facility] PCP - General 10/10/16 10/12/17 documented as of this encounter
--- OUTSIDE RECORDS SUMMARY | 2024-09-25 11:48 | XMS_ITS | Encounter Summary ---
Author Organization [facility] Address [address] [place] [address] Care Team Providers Care Planner Intern Name Role Phone [facility], [facility] Primary Care Provider Unavailable Reason for Visit * Reason Comments IUD pt having heavier th an normal period and cannot find the string for her IUD placed 2 years ago Vaginal Bleeding Encounter Details Date Type Department Care Team (Late st Contact Info) Description 02/24/2017 7:33 PM CDT - 02/24/2017 8:21 PM CDT Emergency ER at [facility] [address] [place] [id number] Heavy menses due to IUD (HCC); Vulvovaginal candidiasis Discharge Disposition: Home or Self Care Social History Tobacco Use Types Packs/Day Years Used Date Smoking Tobacco: Every Day Cigarettes Smokeless Tobacco: Never Comments:Quit smoking in Dec Alcohol Use Standard Drinks/Week Comments Yes 0 (1 standard drink = 0.6 oz pur e alcohol) rarely Sex and Gender Information Value Date Recorded Sex Assigned at Not on file Gender Identity Not on file Sexual Orientation Not on file documented as of this encounter Last Filed Vital Signs Vital Sign Reading Time Taken Comments Blood Pressure 115/67 02/24/2017 8:08 PM CDT Pulse 90 02/24/2017 8:09 PM CDT Temperature 36.6 ??C (97.9 ??F) 02/24/2017 6:38 PM CD T Respiratory Rate 21 02/24/2017 8:09 PM CDT Oxygen Saturation 100% 02/24/2017 8:09 PM CDT Inhaled Oxygen Concentration - - Weight 83 kg (183 lb) 02/24/2017 8:20 PM CDT Height - - Body Mass Index 31.41 12/31/2016 4:12 PM CDT documented in this encounter Functional [...] this encounter Discharge Instructions * Discharge Instructions* Criss March, LUSTER REPAIRER-SEISMIC PLOTTER - 02/24/2017 8:06 PM CDT Images from the original note were not included. Menorrhagia Menorrhagia is when your menstrual periods are heavy or last longer than usual. HOME CARE ?? Only take medicine as told by your doctor. ?? Take any iron pills as told by your doctor. Heavy bleeding may cause low levels of iron in your body. ?? Do not take aspirin 1 week before or during your period. Aspirin can make the bleeding worse. ?? Lie down for a while if you change your tampon or pad more than once in 2 hours. This may help lessen the bleeding. ?? Eat a healthy diet and foods with iron. These foods include leafy green vegetables, meat, liver,eggs, and whole grain breads and cereals. ?? Do not try to lose weight. Wait until the heavy bleeding has stopped and your iron level is normal. GET HELP IF: ?? You soak through a pad or tampon every 1 or 2 hours, and this happens every time you have a period. ?? You need to use pads and tampons at the same time because you are bleeding so much. ?? You need to change your pad or tampon during the night. ?? You have a period that lasts for more than 8 days. ?? You pass clots bigger than 1 inch (2.5 cm) wide. ?? You have irregular periods that happen more or less often than once a month. ?? You feel dizzy or pass out (faint). ?? You feel very weak or tired. ?? You feel short of breath or feel your heart is beating too fast when you exercise. ?? You feel sick to your stomach (nausea) and you throw up (vomit) while you are taking your medicine. ? You have watery poop (diarrhea) while you are taking your medicine. ?? You have any problems that may be related to the medicine you are taking. ?? GET HELP RIGHT AWAY IF: ?? You soak through 4 or more pads or tampons in 2 hours. ?? You have any bleeding while you are . MAKE SURE YOU: ?? Understand these instructions. ?? Will watch your condition. ?? Will get help right away if you are not doing well or get worse. Document Released: 06/02/2009 Document Revised: 04/26/2014 Document Reviewed: 02/23/2014 ExitCare?? Patient Information ??2015 [employer]. This information is not intended to replace advice given to you by your health care provider. Make sure you discuss any questions you have with your health care provider. documented in this encounter Medications at Time of Discharge Medication Sig Dispensed Refills Start Date End Date albuterol HFA (PROVENTIL;VENTOLIN;NC OAIR) 108 (90 BASE) MCG/ACT inhaler Inhale [...] Spasms (caution sedation.) 10 Tab 12/31/2016 10/13/2017 HYDROcodone-acetaminop hen (NORCO) 5-325 MG tablet [...] as of this encounter ED Notes * Oumou Lindquist RN - 02/24/2017 8:21 PM CDT Discharge education and paperwork provided to pt. Pt verbalizes understanding. No questions/concerns voiced by pt. * Criss March, LUSTER REPAIRER-SEISMIC PLOTTER - 02/24/2017 8:21 PM CDT Provider contact with the patient: 02/26/2017 21:17 [id number] [facility] EMERGENCY DEPARTMENT History Chief Complaint Patient presents with ??? IUD pt having heavier than normal period and cannot find the string for her IUD placed 2 years ago ??? Vaginal Bleeding HPI Comments: 27-year-old female presents to the emergency department complaining of heavy menstruation this cycle. The patient is also concerned she cannot find her IUD strings. Past Medical History: Diagnosis Date ??? Asthma [...] Comment: Quit smoking in December ??? Alcohol use 0.0 oz/week 0 Standard drinks or equivalent per week Comment: rarely ??? Drug use: No ??? Sexual activity: Not on file Other Topics Concern ??? Not on file Social History Narrative Allergies Allergen Reactions ??? Augmentin Hives Review of Systems Review of Systems Constitutional: Negative. HENT: Negative. Eyes: Negative. Respiratory: Negative. Cardiovascular: Negative. Gastrointestinal: Negative. Genitourinary: Negative. Vaginal bleeding Musculoskeletal: Negative. Skin: Negative. Neurological: Negative. Endo/Heme/Allergies: Negative. Psychiatric/Behavioral: Negative. All other systems reviewed and are negative. Physical Exam BP 115/67 Pulse 90 Temp 97.9 ??F Resp 21 Wt 83 kg (183 lb) SpO2 100% BMI 31.41 kg/m2 Physical Exam Constitutional: She is oriented to person, place, and time. Vital signs are normal. She appears well-developed and well-nourished. HENT: Head: Normocephalic and atraumatic. Right Ear: Hearing and external ear normal. Left Ear: Hearing and external ear normal. Nose: Nose normal. Mouth/Throat: Uvula is midline and oropharynx is clear and moist. Eyes: Conjunctivae, EOM and lids are normal. Pupils are equal, round, and reactive to light. Neck: Trachea normal and phonation normal. Cardiovascular: Regular rhythm, S1 normal, S2 normal, normal heart sounds and normal pulses. Pulmonary/Chest: Effort normal and breath sounds normal. Abdominal: Soft. Normal appearance and bowel sounds are normal. There is no tenderness. Genitourinary: Rectum normal and uterus normal. Pelvic exam was performed with patient supine. Cervix exhibits no motion tenderness. Right adnexum displays no mass, no tenderness and no fullness. Left adnexum displays no mass, no tenderness and no fullness. There is bleeding in the vagina. Genitourinary Comments: IUD strings in place. Vaginal bleeding consistent with normal menses present vaginal vault. Musculoskeletal: Normal range of motion. Neurological: She is alert and oriented to person, place, and time. GCS eye subscore is 4. GCS verbal subscore is 5. GCS motor subscore is 6. Skin: Skin is warm, dry and intact. Psychiatric: She has a normal mood and affect. Her speech is normal and behavior is normal. Cognition and memory are normal. Nursing note and vitals reviewed. Medications Current Outpatient Prescriptions Medication Sig Dispense Refill ??? naproxen (NAPROSYN) 500 MG tablet Take 1 Tab by mouth 2 times daily as needed for Pain 20 Tab 0 ??? cyclobenzaprine (FLEXERIL) 10 MG tablet Take 1 Tab by mouth 3 times daily as needed for Muscle Spasms (caution sedation.) 10 Tab 0 ??? HYDROcodone-acetaminophen (NORCO) 5-325 [...] ECG Interpretation Lab/SPO2 Interpretation Hospital Encounter on 02/24/17 CBC W AUTO DIFFERENTIAL Result Value Ref Range WBC 9.0 4.4 - 10.7 x10E9/L WBC Corrected x10E9/L RBC 4.35 3.80 - 5.20 x10E12/L Hgb 10.9 (L) 12.0 - 15.6 gm/dL HCT 33.5 (L) 35.9 - 45.5 % MCV 77.0 (L) 80.7 - 98.3 fl MCH 25.1 (L) 26.7 - 34.0 pg MCHC 32.5 30.8 - 35.9 gm/dL Plt Ct 324 153 - 416 x10E9/L RDW-CV 16.7 (H) 12.1 - 14.9 % MPV 9.3 (L) 9.4 - 12.9 fl Neutro 56.1 44.0 - 73.0 % Lymph 29.2 20.0 - 43.0 % Meagher 10.3 5.0 - 13.0 % Eos 3.3 0.0 - 6.0 % Baso 0.7 0.0 - 2.0 % Immature Grans 0.4 0 - 1 % Neutro Abs 5.02 2.01 - 7.14 x10E9/L Lymph Abs 2.62 1.07 - 3.94 x10E9/L Meagher Abs 0.92 0.26 - 1.07 x10E9/L Eosin Abs 0.30 0 - 0.47 x10E9/L Baso Abs 0.06 0 - 0.08 x10E9/L Immature Grans (Abs) 0.04 0.00 - 0.06 x10E9/L NRBC Auto 0 /100 WBC COMPREHENSIVE METABOLIC PANEL Result Value Ref Range Glucose 89 74 - 106 mg/dL Sodium 140 136 - 145 mmol/L Potassium 3.7 3.5 - 5.1 mmol/L Chloride 107 98 - 107 mmol/L CO2 27 22 - 31 mmol/L Calcium 8.7 8.5 - 10.1 mg/dL Anion Gap 6 (L) 8 - 16 mmol/L BUN 8 7 - 21 mg/dL Creatinine 0.68 0.50 - 1.30 mg/dL Alk Phos 65 38 - 126 U/L ALT/SGPT 18 13 - 61 U/L AST/SGOT 11 5 - 40 U/L Protein Total 7.3 6.4 - 8.2 gm/dL Albumin 3.5 3.4 - 5.0 gm/dL Bili Total 0.2 0.2 - 1.0 mg/dL eGFR MDRD >60 >60 mL/min/1.73m2 eGFR MDRD AFR AMR >60 >60 mL/min/1.73m2 HCG BETA BLOOD QUANTITATIVE Result Value Ref Range HCG Quant Serum <1 mIU/mL No orders to display Progress Notes 200PM Rechecked pt. Pt is medically stable for d/c home at this time. At this present time, a medical screening exam has been completed. It is determined that the patient does not have an emergency medical condition and is stable for discharge. I have given the patient instructions regarding her diagnosis, expectations, follow up , and returnprecautions . I explained to the patient that emergent conditions may arise and to return to the ERfor new, worsening, or any persistent conditions. I've explained the importance of following up with her doctor--[facility]--(or the referral physician as instructed. The patient verbalized understanding of the discharge instructions. Diagnosis: Encounter Diagnoses Name Primary? Heavy menses due to IUD ??? Vulvovaginal candidiasis New Medications: Discharge Medication List as of 02/24/2017 8:07 PM I have advised the patient to follow-up with: [facility], [facility] [address] [facility] [id number] Schedule an appointment as soon as possible for a visit Blood pressure 115/67, pulse 90, temperature 97.9 ??F, resp. rate 21, weight 83 kg (183 lb), SpO2 100 %, not currently . Disposition: Discharged 02/24/2017 2000 PM ED Course ED Course Medical Decision Making Orders Placed This Encounter ??? TRAY EXAM PELVIC ??? CBC W AUTO DIFFERENTIAL ??? URINALYSIS ROUTINE W/REFLEX TO CULTURE ??? COMPREHENSIVE METABOLIC PANEL ??? HCG BETA BLOOD QUANTITATIVE ??? HCG URINE QUALITATIVE - POINT OF CARE (IP) ??? DISCONTD: fluconazole (DIFLUCAN) tablet 200 mg Clinical Impression Final diagnoses: Heavy menses due to IUD Vulvovaginal candidiasis Associated attestation - Aleah Douglas MD - 02/27/2017 12:47 AM CDT 02/27/2017 00:47 Attestation Note: I have read the chart and agree with the treatment plan. I did not see the patient. * Oumou Lindquist, RN - 02/24/2017 8:03 PM CDT Pt presents with c/o being unable to feel my IUD. Awhile back I could feel not only the strings, but the bottom blastic part. Now I cant feel it at all and I'm bleeding . Denies other c/o. Lexi PEÑA at bedside performing pelvic at this time. * Mariah Casas, LUSTER REPAIRER-SEISMIC PLOTTER - 02/24/2017 6:38 PM CDT PIT Note 02/24/2017 18:38 ? Patient presents with a chief complaint of vaginal bleeding History of present illness: 27 y.o. female whom reports having vaginal bleeding and cramping which began today. Patient reports that she usually has a menstruation cycle every month, on the . Shereports having an IUD, which she could feel with her hands. It was noted to be low. Patient reports that she cannot feel the IUD anymore. She indicates that she is having symptoms. Physical Exam: Constitutional: Well developed, well nourished. No acute distress. HENT: Normocephalic, atraumatic. Neck: ROM nl, supple. Heart: RRR, no murmur. Pulmonary/Chest: Effort normal, no respiratory distress. Abdomen: soft, non tender. Musculoskeletal: KHOURY, no edema or tenderness. Neurological: A&O x 3, no focal neuro deficits. Skin: warm, dry. Psych: mood and affect normal. ? Complete vital signs reviewed. BP 122/74 Pulse 97 Temp 97.9 ??F Resp 16 SpO2 99% Diagnostic tests ordered: Orders Placed This Encounter ??? CBC W AUTO DIFFERENTIAL ??? URINALYSIS ROUTINE W/REFLEX TO CULTURE ??? COMPREHENSIVE METABOLIC PANEL ??? HCG BETA BLOOD QUANTITATIVE ??? HCG URINE QUALITATIVE - POINT OF CARE (IP) ? Based on the Medical Screening Exam performed and diagnostic tests at this time: Further evaluation is indicated and will be performed. Care will be transferred to the main ED. SHAGGY Foster documented in this encounter Plan of Treatment Scheduled Orders Name Type Priority Associated Diagnoses Order Schedule HCG URINE QUALITATIVE - POINT OF CARE (IP) Point of Care Testing Routine ONCE for 1 Occurrences starting 02/24/2017 until 02/24/2017 documented as of this encounter Procedures Procedure Name Priority Date/Time Associated Diagnosis Comments CBC W AUTO DIFFERENTIAL STAT 02/24/2017 6:43 PM CDT COMPREHENSIVE METABOLIC PANEL STAT 02/24/2017 6:43 PM CDT HCG BETA BLOOD QUANTITATIVE STAT 02/24/2017 6:43 PM CDT documented in this encounter Results * HCG BETA BLOOD QUANTITATIVE (02/24/2017 6:43 PM CDT) [facility] hCG Quantitative <1 mIU/mL 02/25/20 7:06 PM CDT [facility] Blood BLOOD SPECIMEN / Unknown 02/24/2017 6:43 PM CDT 02/24/2017 6:47 PM CDT Narrative [facility] - 02/24/2017 7:06 PM CDT ? hCG Reference Range, mIU/mL: ? [...] a serum FSH >20 IU/L makes unlikely. Mariah Casas LUSTER REPAIRER-SEISMIC PLOTTER LAB - CHEMISTRY ORDERABLES Performing Organization Address City/State/[facility] Co de Phone Number [facility] [address] [place] [address] * (ABNORMAL) COMPREHENSIVE METABOLIC PANEL (02/24/2017 6:43 PM CDT) Glucose 89 74 - 106 mg/dL 02/24/2017 7:04 PM CDT [facility] Sodium 140 136 - 145 mmol/L 02/24/2017 7:04 PM CDT [facility] Potassium 3.7 3.5 - 5.1 mmol/L 02/24/2017 7:04 PM CDT [facility] Chloride 107 98 - 107 mmol/L 02/24/2017 7:04 PM CDT [facility] CO2 27 22 - 31 mmol/L 02/24/2017 7:04 PM CDT [facility] Calcium 8.7 8.5 - 10.1 mg/dL 02/24/2017 7:04 PM CDT [facility] Anion Gap 6(L) 8 - 16 mmol/L 02/24/2017 7:04 PM CDT [facility] BUN 8 7 - 21 mg/dL 02/24/2017 7:04 PM CDT [facility] Creatinine 0.68 0.50 - 1.30 mg/dL 02/24/2017 7:04 PM CDT [facility] Alkaline Phosphatase 65 38 - 126 U/L 02/24/2017 7:04 PM CDT [facility] ALT 18 13 - 61 U/L 02/24/2017 7:04 PM CDT [facility] AST 11 5 - 40 U/L 02/24/2017 7:04 PM CDT [facility] Protein Total 7.3 6.4 - 8.2 gm/dL 02/24/2017 7:04 PM CDT [facility] Albumin 3.5 3.4 - 5.0 gm/dL 02/24/2017 7:04 PM CDT [facility] Bilirubin Total 0.2 0.2 - 1.0 mg/dL 02/24/2017 7:04 PM CDT [facility] eGFR by MDRD >60 >60 mL/min/1.7 3m2 02/24/2017 7:04 PM CDT [facility] eGFR by MDRD >60 >60 mL/min/1.7 3m2 02/24/2017 7:04 PM CDT [facility] Blood BLOOD SPECIMEN / Unknown 02/24/2017 6:43 PM CDT 02/24/2017 6:47 PM CDT Mariah Casas LUSTER REPAIRER-SEISMIC PLOTTER LAB - CHEMISTRY ORDERABLES Performing Organization Address City/State/[facility] Co de Phone Number [facility] [address] [place] [address] * (ABNORMAL) CBC W AUTO DIFFERENTIAL (02/24/2017 6:43 PM CDT) WBC 9.0 4.4 - 10.7 x10E9/L 02/24/2017 6:54 PM CDT [facility] WBC Corrected x10E9/L 02/24/2017 6:54 PM CDT [facility] RBC 4.35 3.80 - 5.20 x10E12/L 02/24/2017 6:54 PM CDT [facility] Hemoglobin 10.9(L) 12.0 - 15.6 gm/dL 02/24/2017 6:54 PM CDT [facility] Hematocrit 33.5(L) 35.9 - 45.5 % 02/24/2017 6:54 PM CDT [facility] MCV 77.0(L) 80.7 - 98.3 fl 02/24/2017 6:54 PM CDT [facility] MCH 25.1(L) 26.7 - 34.0 pg 02/24/2017 6:54 PM CDT [facility] MCHC 32.5 30.8 - 35.9 gm/dL 02/24/2017 6:54 PM [facility] Platelet Count 324 153 - 416 x10E9/L 02/24/2017 6:54 PM [facility] RDW-CV 16.7(H) 12.1 - 14.9 % 02/24/2017 6:54 PM [facility] MPV 9.3(L) 9.4 - 12.9 fl 02/24/2017 6:54 PM T [facility] Neutrophils % 56.1 44.0 - 73.0 % 02/24/2017 6:54 PM [facility] Lymphocytes % 29.2 20.0 - 43.0 % 02/24/2017 6:54 PM T [facility] Monocytes % 10.3 5.0 - 13.0 % 02/24/2017 6:54 PM CDT [facility] Eosinophils % 3.3 0.0 - 6.0 % 02/24/2017 6:54 PM CDT [facility] Basophils % 0.7 0.0 - 2.0 % 02/24/2017 6:54 PM T [facility] Immature Granulocytes 0.4 0 - 1 % 02/24/2017 6:54 PM [facility] Neutrophil Absolute 5.02 2.01 - 7.14 x10E9/L 02/24/2017 6:54 PM CDT [facility] Lymphocytes Absolute 2.62 1.07 - 3.94 x10E9/L 02/24/2017 6:54 PM CDT [facility] Monocytes Absolute 0.92 0.26 - 1.07 x10E9/L 02/24/2017 6:54 PM CDT [facility] Eosinophils Absolute 0.30 0 - 0.47 x10E9/L 02/24/2017 6:54 PM CDT [facility] Basophils Absolute 0.06 0 - 0.08 x10E9/L 02/24/2017 6:54 PM CDT [facility] Immature Granulocytes Absolute 0.04 0.00 - 0.06 x10E9/L 02/24/2017 6:54 PM CDT [facility] nRBC Auto 0 /100 WBC 02/24/2017 6:54 PM CDT [facility] Blood BLOOD SPECIMEN / Unknown 02/24/2017 6:43 PM CDT 02/24/2017 6:47 PM CDT Mariah Casas LUSTER REPAIRER-SEISMIC PLOTTER LAB - HEMATOLOG Y ORDERABLES Performing Organization Address City/State/[facility] Co de Phone Number [facility] [address] [place] [address] documented in this encounter Visit Diagnoses Diagnosis Heavy menses due to IUD (HCC) Other complications due to genitourinary device, implant, and graft Vulvovaginal candidiasis Candidiasis of vulva and vagina documented in this encounter Administered Medications Inactive Administered Medications - up to 3 most recent administrations Medication Order MAR Action Action Date Dose Rate Site fluconazole (DIFLUCAN) tablet 200 mg 200 mg, Oral, DAILY, First dose on Thu02/24/17 at 2014, Until Discontinued $ Given 02/24/2017 8:17 PM CDT 200 mg documented in this encounter Active and Recently Administered Medications Times are shown in CDT. Scheduled Medication Order 02/22/2017 02/23/2017 02/24/2017 fluconazole (DIFLUCAN) tablet 200 mg 200 mg, Oral, DAILY, First dose on Thu02/24/17 at 2014, Until Discontinued 2016 ($ Given - Prov ider: Oumou Lindquist RN) documented in this encounter Care Teams Planner Intern Relationship Specialty Start Date End Date [facility] PCP - General 10/10/16 10/12/17 documented as of this encounter
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
--- OUTSIDE RECORDS SUMMARY | 2024-09-25 11:49 | XMS_ITS | Encounter Summary ---
Author Organization [facility] Address [address] [place] [address] Care Team Providers Care Shift Coordinator Name Role Phone Unavailable Primary Care Provider Unavailabl e Reason for Visit * Reason Comments Pain Flank c/o bilat flank pain w/ radiation rt groin since yesterday. Dysuria, urgency. Hx kidney stones. Encounter Details Date Type Department Care Team (Late st Contact Info) Description 03/18/2016 5:03 PM CDT - 03/18/2016 7:54 PM CDT Emergency ER at [facility] [address] [place] [id number] [place] [address] [place] [address] Hematuria; Screen for STD (sexually transmitted disease); Hypokalemia Discharge Disposition: Home or Self Care Social History Tobacco Use Types Packs/Day Years Used Date Smoking Tobacco: Every Day Cigarettes Smokeless Tobacco: Never Comments:Quit smoking in Apr il Alcohol Use Standard Drinks/Week Comments No 0 (1 standard drink = 0.6 oz pur e alcohol) rarely Sex and Gender Information Value Date Recorded Sex Assigned at Not on file Gender Identity Not on file Sexual Orientation Not on file documented as of this encounter Last Filed Vital Signs Vital Sign Reading Time Taken Comments Blood Pressure 116/70 03/18/2016 7:49 PM CDT Pulse 81 03/18/2016 7:49 PM CDT Temperature 36.8 ??C (98.3 ??F) 03/18/2016 4:11 PM CD T Respiratory Rate 17 03/18/2016 7:49 PM CDT Oxygen Saturation 100% 03/18/2016 7:27 PM CDT Inhaled Oxygen Concentration - - Weight 87.5 kg (193 lb) 03/18/2016 1:55 PM CDT Height 162.6 cm (5' 4 ) 03/18/2016 1:55 PM CDT Body Mass Index 33.13 03/18/2016 1:55 PM CDT documented in this encounter Functional [...] this encounter Discharge Instructions * Discharge Instructions* Catherine Dubose, VIRTUALIZATION ENGINEER-SOAP GRINDER - 03/18/2016 7:35 PM CDT Images from the original note were not included. Flank Pain Flank pain refers to pain that is located on the side of the body between the upper abdomen and theback. The pain may occur over a short period of time (acute) or may be long-term or reoccurring (chronic). It may be mild or severe. Flank pain can be caused by many things. CAUSES Some of the more common causes of flank pain include: ?? Muscle strains. ? Muscle spasms. ? A disease of your spine (vertebral disk disease). ? A lung infection (pneumonia). ? Fluid around your lungs (pulmonary edema). ? A kidney infection. ? Kidney stones. ? A very painful skin rash caused by the chickenpox virus (shingles). ? Gallbladder disease. ?? HOME CARE INSTRUCTIONS Home care will depend on the cause of your pain. In general, ?? Rest as directed by your caregiver. ?? Drink enough fluids to keep your urine clear or pale yellow. ?? Only take hrwo-ush-ethoffr or prescription medicines as directed by your caregiver. Some medicines may help relieve the pain. ?? Tell your caregiver about any changes in your pain. ?? Follow up with your caregiver as directed. SEEK IMMEDIATE MEDICAL CARE IF: ?? Your pain is not controlled with medicine. ? You have new or worsening symptoms. ?? Your pain increases. ? You have abdominal pain. ? You have shortness of breath. ? You have persistent nausea or vomiting. ? You have swelling in your abdomen. ? You feel faint or pass out. ? You have blood in your urine. ?? You have a fever or persistent symptoms for more than 2 3 days. ?? You have a fever and your symptoms suddenly get worse. MAKE SURE YOU: ?? Understand these instructions. ?? Will watch your condition. ?? Will get help right away if you are not doing well or get worse. Document Released: 10/15/2006 Document Revised: 05/18/2013 Document Reviewed: 04/07/2013 ExitCare?? Patient Information ??2014 [employer]. Hematuria, Adult Hematuria (blood in your urine) can be caused by a bladder infection (cystitis), kidney infection (pyelonephritis), prostate infection (prostatitis), or kidney stone. Infections will usually respond to antibiotics (medications which kill germs), and a kidney stone will usually pass through your urine without further treatment. If you were put on antibiotics, take all the medicine until gone. You may feel better in a few days, but take all of your medicine or the infection may not respond and become more difficult to treat. If antibiotics were not given, an infection did not cause the blood inthe urine. A further work up to find out the reason may be needed. HOME CARE INSTRUCTIONS ?? Drink lots of fluid, 3 to 4 quarts a day. If you have been diagnosed with an infection, cranberry juice is especially recommended, in addition to large amounts of water. ?? Avoid caffeine, tea, and carbonated beverages, because they tend to irritate the bladder. ?? Avoid alcohol as it may irritate the prostate. ?? Only take zigy-vvk-cawdexx or prescription medicines for pain, discomfort, or fever as directed by your caregiver. ?? If you have been diagnosed with a kidney stone follow your caregivers instructions regarding straining your urine to catch the stone. TO PREVENT FURTHER INFECTIONS: ?? Empty the bladder often. Avoid holding urine for long periods of time. ?? After a bowel movement, women should cleanse front to back. Use each tissue only once. ?? Empty the bladder before and after sexual intercourse if you are a female. ?? Return to your caregiver if you develop back pain, fever, nausea (feeling sick to your stomach),vomiting, or your symptoms (problems) are not better in 3 days. Return sooner if you are getting worse. If you have been requested to return for further testing make sure to keep your appointments. If aninfection is not the cause of blood in your urine, X-rays may be required. Your caregiver will discuss this with you. SEEK IMMEDIATE MEDICAL CARE IF: ?? You have a persistent fever over 102?? F (38.9?? C). ?? You develop severe vomiting and are unable to keep the medication down. ?? You develop severe back or abdominal pain despite taking your medications. ?? You begin passing a large amount of blood or clots in your urine. ?? You feel extremely weak or faint, or pass out. MAKE SURE YOU: ?? Understand these instructions. ?? Will watch your condition. ?? Will get help right away if you are not doing well or get worse. Document Released: 08/24/2006 Document Revised: 11/15/2012 Document Reviewed: 04/12/2009 ExitCare?? Patient Information ??2013 [employer]. Sexually Transmitted Disease Sexually transmitted disease (STD) refers to any infection that is passed from person to person during sexual activity. This may happen by way of saliva, semen, blood, vaginal mucus, or urine. CommonSTDs include: ?? Gonorrhea. ?? Chlamydia. ?? Syphilis. ?? HIV/AIDS. ?? Genital herpes. ?? Hepatitis B and C. ?? Trichomonas. ?? Human papillomavirus (HPV). ?? Pubic lice. CAUSES An STD may be spread by bacteria, virus, or parasite. A person can get an STD by: ?? Sexual intercourse with an infected person. ?? Sharing sex toys with an infected person. ?? Sharing needles with an infected person. ?? Having intimate contact with the genitals, mouth, or rectal areas of an infected person. SYMPTOMS Some people may not have any symptoms, but they can still pass the infection to others. Different STDs have different symptoms. Symptoms include: ?? Painful or bloody urination. ?? Pain in the pelvis, abdomen, vagina, anus, throat, or eyes. ?? Skin rash, itching, irritation, growths, or sores (lesions). These usually occur in the genital or anal area. ?? Abnormal vaginal discharge. ?? Penile discharge in men. ?? Soft, flesh-colored skin growths in the genital or anal area. ?? Fever. ?? Pain or bleeding during sexual intercourse. ?? Swollen glands in the groin area. ?? Yellow skin and eyes (jaundice). This is seen with hepatitis. DIAGNOSIS To make a diagnosis, your caregiver may: ?? Take a medical history. ?? Perform a physical exam. ?? Take a specimen (culture) to be examined. ?? Examine a sample of discharge under a microscope. ?? Perform blood tests. ?? Perform a Pap test, if this applies. ?? Perform a colposcopy. ?? Perform a laparoscopy. TREATMENT ?? Chlamydia, gonorrhea, trichomonas, and syphilis can be cured with antibiotic medicine. ?? Genital herpes, hepatitis, and HIV can be treated, but not cured, with prescribed medicines. Themedicines will lessen the symptoms. ?? Genital warts from HPV can be treated with medicine or by freezing, burning (electrocautery), orsurgery. Warts may come back. ?? HPV is a virus and cannot be cured with medicine or surgery.??However, abnormal areas may be followed very closely by your caregiver and may be removed from the cervix, vagina, or vulva through office procedures or surgery. If your diagnosis is confirmed, your recent sexual partners need treatment. This is true even if they are symptom-free or have a negative culture or evaluation. They should not have sex until their caregiver says it is okay. HOME CARE INSTRUCTIONS ?? All sexual partners should be informed, tested, and treated for all STDs. ?? Take your antibiotics as directed. Finish them even if you start to feel better. ?? Only take fbpp-rju-igwvtqg or prescription medicines for pain, discomfort, or fever as directed by your caregiver. ?? Rest. ?? Eat a balanced diet and drink enough fluids to keep your urine clear or pale yellow. ?? Do not have sex until treatment is completed and you have followed up with your caregiver. STDs should be checked after treatment. ?? Keep all follow-up appointments, Pap tests, and blood tests as directed by your caregiver. ?? Only use latex condoms and water-soluble lubricants during sexual activity. Do not use petroleumjelly or oils. ?? Avoid alcohol and illegal drugs. ?? Get vaccinated for HPV and hepatitis. If you have not received these vaccines in the past, talk to your caregiver about whether one or both might be right for you. ?? Avoid risky sex practices that can break the skin. The only way to avoid getting an STD is to avoid all sexual activity.??Latex condoms and dental dams (for oral sex) will help lessen the risk of getting an STD, but will not completely eliminate the risk. SEEK MEDICAL CARE IF: ?? You have a fever. ?? You have any new or worsening symptoms. Document Released: 11/14/2003 Document Revised: 11/15/2012 Document Reviewed: 11/21/2011 ExitCare?? Patient Information ??2014 [employer]. Dysuria Dysuria is the medical term for pain with urination. There are many causes for dysuria, but urinarytract infection is the most common. If a urinalysis was performed it can show that there is a urinary tract infection. A urine culture confirms that you or your child is sick. You will need to followup with a healthcare provider because: ?? If a urine culture was done you will need to know the culture results and treatment recommendations. ?? If the urine culture was positive, you or your child will need to be put on antibiotics or know if the antibiotics prescribed are the right antibiotics for your urinary tract infection. ?? If the urine culture is negative (no urinary tract infection), then other causes may need to be explored or antibiotics need to be stopped. Today laboratory work may have been done and there does not seem to be an infection. If cultures were done they will take at least 24 to 48 hours to be completed. Today x-rays may have been taken and they read as normal. No cause can be found for the problems. The x-rays may be re-read by a radiologist and you will be contacted if additional findings are made. You or your child may have been put on medications to help with this problem until you can see yourprimary caregiver. If the problems get better, see your primary caregiver if the problems return. If you were given antibiotics (medications which kill germs), take all of the mediations as directed for the full course of treatment. If laboratory work was done, you need to find the results. Leave a telephone number where you can be reached. If this is not possible, make sure you find out how you are to get test results. HOME CARE INSTRUCTIONS ?? Drink lots of fluids. For adults, drink eight, 8 ounce glasses of clear juice or water a day. For children, replace fluids as suggested by your caregiver. ?? Empty the bladder often. Avoid holding urine for long periods of time. ?? After a bowel movement, women should cleanse front to back, using each tissue only once. ?? Empty your bladder before and after sexual intercourse. ?? Take all the medicine given to you until it is gone. You may feel better in a few days, but TAKEALL MEDICINE. ?? Avoid caffeine, tea, alcohol and carbonated beverages, because they tend to irritate the bladder. ?? In men, alcohol may irritate the prostate. ?? Only take uyqr-swa-btqeskn or prescription medicines for pain, discomfort, or fever as directed by your caregiver. ?? If your caregiver has given you a follow-up appointment, it is very important to keep that appointment. Not keeping the appointment could result in a chronic or permanent injury, pain, and disability. If there is any problem keeping the appointment, you must call back to this facility for assistance. SEEK IMMEDIATE MEDICAL CARE IF: ?? Back pain develops. ?? A fever develops. ?? There is nausea (feeling sick to your stomach) or vomiting (throwing up). ?? Problems are no better with medications or are getting worse. MAKE SURE YOU: ?? Understand these instructions. ?? Will watch your condition. ?? Will get help right away if you are not doing well or get worse. Document Released: 05/22/2005 Document Revised: 11/15/2012 Document Reviewed: 03/29/2009 ExitCare?? Patient Information ??2014 [employer]. Hypokalemia Hypokalemia means that the amount of potassium in the blood is lower than normal.??Potassium is a chemical, called an electrolyte, that helps regulate the amount of fluid in the body. It also stimulates muscle contraction and helps nerves function properly.??Most of the body's potassium is inside of cells, and only a very small amount is in the blood. Because the amount in the blood is so small, minor changes can be life-threatening. CAUSES ?? Antibiotics. ?? Diarrhea or vomiting. ?? Using laxatives too much, which can cause diarrhea. ?? Chronic kidney disease. ?? Water pills (diuretics). ?? Eating disorders (bulimia). ?? Low magnesium level. ?? Sweating a lot. SIGNS AND SYMPTOMS ?? Weakness. ?? Constipation. ?? Fatigue. ?? Muscle cramps. ?? Mental confusion. ?? Skipped heartbeats or irregular heartbeat (palpitations). ?? Tingling or numbness. DIAGNOSIS Your health care provider can diagnose hypokalemia with blood tests. In addition to checking your potassium level, your health care provider may also check other lab tests. TREATMENT Hypokalemia can be treated with potassium supplements taken by mouth or adjustments in your currentmedicines. If your potassium level is very low, you may need to get potassium through a vein (IV) and be monitored in the hospital. A diet high in potassium is also helpful. Foods high in potassium are: ?? Nuts, such as peanuts and pistachios. ?? Seeds, such as sunflower seeds and pumpkin seeds. ?? Peas, lentils, and villalba beans. ?? Whole grain and bran cereals and breads. ?? Fresh fruit and vegetables, such as apricots, avocado, bananas, cantaloupe, kiwi, oranges, tomatoes, asparagus, and potatoes. ?? Bow and tomato juices. ?? Red meats. ?? Fruit yogurt. HOME CARE INSTRUCTIONS ?? Take all medicines as prescribed by your health care provider. ?? Maintain a healthy diet by including nutritious food, such as fruits, vegetables, nuts, whole grains, and lean meats. ?? If you are taking a laxative, be sure to follow the directions on the label. SEEK MEDICAL CARE IF: ?? Your weakness gets worse. ?? You feel your heart pounding or racing. ?? You are vomiting or having diarrhea. ?? You are diabetic and having trouble keeping your blood glucose in the normal range. SEEK IMMEDIATE MEDICAL CARE IF: ?? You have chest pain, shortness of breath, or dizziness. ?? You are vomiting or having diarrhea for more than 2 days. ?? You faint. MAKE SURE YOU: ?? Understand these instructions. ?? Will watch your condition. ?? Will get help right away if you are not doing well or get worse. Document Released: 08/24/2006 Document Revised: 06/14/2014 Document Reviewed: 02/24/2014 ExitCare?? Patient Information ??2015 [employer]. This information is not intended to replace advice given to you by your health care provider. Make sure you discuss any questions you have with your health care provider. documented in this encounter Medications at Time of Discharge Medication Sig Dispensed Refills Start Date End Date cyclobenzaprine (FLEXERIL) 10 MG tablet Take 1 Tab by mouth 3 times daily as needed for Muscle Spasms 15 Tab 0 03/08/2016 05/01/2016 diphenhydrAMINE (BENADRYL) 25 MG capsule Take 1 Cap by mouth every 4 hours as needed for Itching 20 Cap 0 01/08/2016 05/01/2016 doxycycline (VIBRAMYCIN) 100 MG capsule Take 1 Cap by mouth 2 times daily for 7 days 14 Cap 0 03/18/2016 03/25/2016 HYDROcodone-acetaminophe n (NORCO) 5-325 MG tablet Take 1 Tab by mouth every 4 hours as needed for Pain 10 Tab 0 03/18/2016 05/01/2016 loratadine (CLARITIN) 10 MG tablet Take 1 Tab by mouth once daily 30 Tab 0 01/08/2016 05/01/2016 metroNIDAZOLE (FLAGYL) 500 MG tablet Take 4 Tabs by mouth once for 1 dose 4 Tab 0 03/18/2016 03/18/2016 naproxen (NAPROSYN) 500 MG tablet Take 1 Tab by mouth 2 times daily as needed for Pain 20 Tab 0 03/08/2016 05/01/2016 phenazopyridine (PYRIDIUM) 200 MG tablet Take 1 Tab by mouth 3 times daily as needed 6 Tab 0 03/18/2016 05/01/2016 documented as of this encounter ED Notes * Maris Duffy RN - 03/18/2016 7:54 PM CDT Pt refused potassium tablet, education provided regarding foods high in potassium she can consume for replacement. Provided pt discharge instructions, prescriptions, and education. Pt verbalized understanding/has no questions at this time and is leaving ambulatory with steady gate and in no visibledistress. Spouse and daughter leaving with pt at this time. * Shayla Ware RN - 03/18/2016 7:27 PM CDT BS report given to RAZIA Parish and RAZIA Pollock. * Shayla Ware RN - 03/18/2016 6:11 PM CDT Pt states pain medication has not decreased pain. Hannah Dubose, MARIANA notified. * Jerrod Mtz DO - 03/18/2016 5:46 PM CDT 03/18/2016 17:46 Datreshasha Rivers is a 26 y.o. female presenting to the ED with a chief complaint of sudden onsetmoderate right flank pain onset this morning. The pain radiates to the groin. Associated sx includeback pain onset a couple weeks ago. Pt denies pelvic issues, vaginal pain or discharge. LMP February 28. Pt reports hx of passing a kidney stone. For this patient encounter, I reviewed the OINTMENT MILL TENDER or PA documentation, procedures (if done), treatment plan, and medical decision making; and I had onbu-fz-ztio time with this patient. I have conducted an independent evaluation of this patient. Refer to the OINTMENT MILL TENDER/PA chart for further details. Physical Exam: Constitutional: Well developed, Well nourished HENT: Normocephalic, Atraumatic Eyes: EOMI, Conjunctiva normal, No discharge. Neck- Normal range of motion, No tenderness, Supple, No stridor. Respiratory: Normal breath sounds, No respiratory distress. Cardiovascular: Normal heart rate, Normal rhythm GI: Bowel sounds normal, Soft, No tenderness, no curiel's, no mcburney's, no stevenson's. No guarding or rebound. Musculoskeletal: Intact distal pulses, No edema, No tenderness. Back- No tenderness. Integument: Warm, Dry, No erythema, No rash. Neurologic: Alert & oriented x 3 Psychiatric: Affect normal, Judgment normal, Mood normal. 5:50 PM Pt offered pelvic exam. Pt refused. 6:45 PM Per RN, pt reports that administered pain medications have not helped and she requests different medication. Vitals: BP 115/63 mmHg Pulse 95 Temp(Src) 98.3 ??F Resp 18 Ht 1.626 m (5' 4 ) Wt 87.544 kg (193 lb) BMI 33.11 kg/m2 SpO2 100% on RA. Labs and Imaging Studies: Labs Reviewed CBC W AUTO DIFFERENTIAL - Abnormal; Notable for the following: Hgb 11.3 (*) HCT 33.9 (*) MCV 75.5 (*) MCH 25.2 (*) RDW-CV 17.8 (*) All other components within normal limits URINALYSIS ROUTINE W/REFLEX TO CULTURE - Abnormal; Notable for the following: Color UA [place] (*) Specific [place] UA >1.030 (*) Protein UA 1+ (*) Blood UA 3+ (*) Leukocyte UA 1+ (*) Ketone UA 2+ (*) WBC UA Auto 10-20 (*) RBC UA Auto >100 (*) Epithelial Cell UA Auto 10-20 (*) Hyaline Casts UA Auto 2-5 (*) All other components within normal limits COMPREHENSIVE METABOLIC PANEL - Abnormal; Notable for the following: Potassium 3.3 (*) All other components within normal limits TRICHOMONAS RAPID TEST - Normal HCG URINE QUALITATIVE - POINT OF CARE (IP) - Normal CULTURE URINE CHLAMYDIA + GC AMPLIFIED PROBE HCG URINE QUALITATIVE - POINT OF CARE (IP) CT RENAL STONE PROTOCOL (NO IV AND NO ORAL CONTRAST) Final Result Examination: CT of the abdomen and pelvis without contrast History: Nausea and back pain Findings: CT of the abdomen and pelvis was performed without intravenous contrast. Comparison is made to 10/20/2015. Images through the lung bases demonstrate a no pneumonic consolidation, pleural effusion, or pneumothorax. There is no pericardial effusion. Noncontrast appearance of the liver is normal. The gallbladder appears normal. The spleen appears normal. The adrenal glands are normal. There is no peripancreatic stranding. Horseshoe kidney is again seen. There is a small 2 mm nonobstructing calculus within the right renal pelvis. No hydronephrosis is seen. No definite stone is seen along the expected course of the ureters. Intrauterine device is noted. Urinary bladder is decompressed. No significant free pelvic fluid is noted. There is a trace amount of free fluid in the pelvis. The appendix is normal. No suspicious osseous lytic or blastic lesion is seen. IMPRESSION Horseshoe kidney with nonobstructing renal calculi. No hydronephrosis or definite ureteral calculus is noted. Diagnosis: Final diagnoses: Flank pain Hematuria Screen for STD (sexually transmitted disease) Hypokalemia I have reviewed the information recorded by the scribe and agree with its accuracy and contents--Dr. MTZ 03/18/2016 11:15 PM Transcribed by Donald oquendo scribe on behalf of Dr. Mtz 03/18/2016 5:46 PM * Shayla Ware RN - 03/18/2016 5:35 PM CDT C/o bilateral lower back/flank pain for 2 weeks, was seen and dx'd with back pain. States she woke up this morning with flank pain Radiating to pelvic area, with feeling that she constantly needs to urinate. States pain is 7/10 numeric, aching in back with 7/10 sharp pain in pelvic area. Denies nausea, vomiting or diarrhea. States this feels like the last time she passed a stone. Has hx of kidneystones. * Catherine Dubose, NEELAM-SOAP GRINDER - 03/18/2016 5:04 PM CDT Provider contact with the patient: 03/18/2016 17:04 Datreion Deven Rivers [id number] [facility] History Chief Complaint Patient presents with ??? Pain Flank c/o bilat flank pain w/ radiation rt groin since yesterday. Dysuria, urgency. Hx kidney stones. HPI Comments: 26 year old female with PMH of renal stones, migraines, STD and depression reports lower bilateral flank pain, and dysuria frequency , pollard to pee, no fever chills, no abdominal pain, but flank pain , sharp at times is intermittent and is on right and goes to groin, no discharge, No NVD, no fever chills Past Medical History Diagnosis Date ??? Asthma remote ??? Migraines ??? History of anemia ??? Chlamydia this ??? depression ??? Trichomonas Treated this ??? History of sexually transmitted disease ??? GBS (group B streptococcus) UTI complicating 08/07/2014 ??? Kidney stones Past Surgical History Procedure Laterality Date ??? Negative surgical history Family History Problem Relation Age of Onset ??? Hypertension Maternal Grandmother ??? Hypertension Mother History Social History ??? Marital Status: Single Spouse Name: N/A Number of Children: N/A ??? Years of Education: N/A Occupational History ??? Not on file. Social History Main Topics ??? Smoking status: Current Every Day Smoker -- 0.50 packs/day ??? Smokeless tobacco: Never Used Comment: Quit smoking in December ??? Alcohol Use: No Comment: rarely ??? Drug Use: No ??? Sexual Activity: Not on file Other Topics Concern ??? Not on file Social History Narrative Reviewed PMH FH and surg hx Review of Systems Review of Systems Constitutional: Negative. HENT: Negative for sore throat. Eyes: Negative for double vision and photophobia. Respiratory: Negative for cough and shortness of breath. Cardiovascular: Negative for chest pain. Gastrointestinal: Negative for nausea, vomiting and abdominal pain. Genitourinary: Positive for dysuria, urgency, frequency and flank pain. Musculoskeletal: Negative for myalgias. Skin: Negative. Neurological: Negative. Negative for headaches. Endo/Heme/Allergies: Negative. Psychiatric/Behavioral: Negative. All other systems reviewed and are negative. Physical Exam BP 115/63 mmHg Pulse 95 Temp(Src) 98.3 ??F Resp 18 Ht 1.626 m (5' 4 ) Wt 87.544 kg (193 lb) BMI 33.11 kg/m2 SpO2 100% Physical Exam Constitutional: She is oriented to person, place, and time. She appears well- developed and well-nourished. HENT: Head: Normocephalic. Right Ear: External ear normal. Left Ear: External ear normal. Mouth/Throat: Oropharynx is clear and moist. Eyes: Conjunctivae are normal. Pupils are equal, round, and reactive to light. Neck: Normal range of motion. Neck supple. Cardiovascular: Normal rate, regular rhythm and normal heart sounds. Abdominal: Soft. She exhibits no distension. Genitourinary: Moderate vaginal discharge yellow , no cmt no adnexal tenderness , no lesion s Musculoskeletal: Normal range of motion. Right cva tenderness Neurological: She is alert and oriented to person, place, and time. Skin: Skin is warm and dry. Psychiatric: She has a normal mood and affect. Her behavior is normal. Judgment and thought contentnormal. Nursing note and vitals reviewed. Medications Current Outpatient Prescriptions Medication Sig Dispense Refill ??? phenazopyridine (PYRIDIUM) 200 MG tablet Take 1 Tab by mouth 3 times daily as needed 6 Tab 0 ??? HYDROcodone-acetaminophen (NORCO) 5-325 MG tablet Take 1 Tab by mouth every 4 hours as needed for Pain 10 Tab 0 ??? metroNIDAZOLE (FLAGYL) 500 MG tablet Take 4 Tabs by mouth once for 1 dose 4 Tab 0 ??? doxycycline (VIBRAMYCIN) 100 MG capsule Take 1 Cap by mouth 2 times daily for 7 days 14 Cap 0 ??? naproxen (NAPROSYN) 500 MG tablet Take 1 Tab by mouth 2 times daily as needed for Pain 20 Tab 0 ??? cyclobenzaprine (FLEXERIL) 10 MG tablet Take 1 Tab by mouth 3 times daily as needed for Muscle Spasms 15 Tab 0 ??? diphenhydrAMINE (BENADRYL) 25 MG capsule Take 1 Cap by mouth every 4 hours as needed for Itching 20 Cap 0 ??? loratadine (CLARITIN) 10 MG tablet Take 1 Tab by mouth once daily 30 Tab 0 Procedures Procedures ECG Interpretation ECG Interpretation Lab/SPO2 Interpretation Hospital Encounter on 03/18/16 CBC W AUTO DIFFERENTIAL Result Value Ref Range WBC 7.2 4.4-10.7 x10E9/L WBC Corrected x10E9/L RBC 4.49 3.80-5.20 x10E12/L Hgb 11.3 (L) 12.0-15.6 gm/dL HCT 33.9 (L) 35.9-45.5 % MCV 75.5 (L) 80.7-98.3 fl MCH 25.2 (L) 26.7-34.0 pg MCHC 33.3 30.8-35.9 gm/dL Plt Ct 387 153-416 x10E9/L RDW-CV 17.8 (H) 12.1-14.9 % MPV 9.4 9.4-12.9 fl Neutro 55.1 44.0-73.0 % Lymph 29.6 20.0-43.0 % Garfield 12.2 5.0-13.0 % Eos 2.1 0.0-6.0 % Baso 0.7 0.0-2.0 % Immature Grans 0.3 0-1 % Neutro Abs 3.98 2.01-7.14 x10E9/L Lymph Abs 2.14 1.07-3.94 x10E9/L Garfield Abs 0.88 0.26-1.07 x10E9/L Eosin Abs 0.15 0-0.47 x10E9/L Baso Abs 0.05 0-0.08 x10E9/L Immature Grans (Abs) 0.02 0.00-0.06 x10E9/L NRBC Auto 0 /100 WBC URINALYSIS ROUTINE W/REFLEX TO CULTURE Result Value Ref Range Color UA Dulce (Abnormal) Straw, Yellow, Dark Yellow Clarity UA Cloudy Specific [place] UA >1.030 (H) 1.005-1.030 pH UA 5.5 5.0-8.0 pH Protein UA 1+ (Abnormal) Negative Blood UA 3+ (Abnormal) Negative Leukocyte UA 1+ (Abnormal) Negative Nitrite UA Negative Negative Glucose UA Negative Negative Ketone UA 2+ (Abnormal) Negative Bili UA Negative Negative Urobilinogen UA 1.0 0.1-1.0 EU/dL WBC UA Auto 10-20 (Abnormal) 0-2, 2-5 # /hpf RBC UA Auto >100 (Abnormal) 0-2, 2-5 # /hpf Epithelial Cell UA Auto 10-20 (Abnormal) 0-2, 2-5 # /hpf Hyaline Casts UA Auto 2-5 (Abnormal) 0-2 #/lpf Reflex Status Culture to follow COMPREHENSIVE METABOLIC PANEL Result Value Ref Range Glucose 87 74-106 mg/dL Sodium 139 136-145 mmol/L Potassium 3.3 (L) 3.5-5.1 mmol/L Chloride 105 98-107 mmol/L CO2 25 22-31 mmol/L Calcium 8.8 8.5-10.1 mg/dL Anion Gap 9 5-20 mmol/L BUN 10 7-21 mg/dL Creatinine 0.62 0.50-1.30 mg/dL Alk Phos 71 38-126 U/L ALT/SGPT 15 13-61 U/L AST/SGOT 10 5-40 U/L Protein Total 7.3 6.4-8.2 gm/dL Albumin 3.5 3.4-5.0 gm/dL Bili Total 0.3 0.2-1.0 mg/dL eGFR MDRD >60 >60 mL/min/1.73m2 eGFR MDRD AFR AMR >60 >60 mL/min/1.73m2 HCG URINE QUALITATIVE - POINT OF CARE (IP) Result Value Ref Range HCG Qual Urine Negative Negative QC Verified Yes Yes HCG URINE QUALITATIVE - POINT OF CARE (IP) Result Value Ref Range HCG Qual Urine Negative Negative QC Verified Yes Yes CT RENAL STONE PROTOCOL (NO IV AND NO ORAL CONTRAST) Final Result Examination: CT of the abdomen and pelvis without contrast History: Nausea and back pain Findings: CT of the abdomen and pelvis was performed without intravenous contrast. Comparison is made to 10/20/2015. Images through the lung bases demonstrate a no pneumonic consolidation, pleural effusion, or pneumothorax. There is no pericardial effusion. Noncontrast appearance of the liver is normal. The gallbladder appears normal. The spleen appears normal. The adrenal glands are normal. There is no peripancreatic stranding. Horseshoe kidney is again seen. There is a small 2 mm nonobstructing calculus within the right renal pelvis. No hydronephrosis is seen. No definite stone is seen along the expected course of the ureters. Intrauterine device is noted. Urinary bladder is decompressed. No significant free pelvic fluid is noted. There is a trace amount of free fluid in the pelvis. The appendix is normal. No suspicious osseous lytic or blastic lesion is seen. IMPRESSION Horseshoe kidney with nonobstructing renal calculi. No hydronephrosis or definite ureteral calculus is noted. Progress Notes Discussed with Dr Bautista and plan of care , rule out renal stone acute abd pt informed Dr Bautista in with pt 6pm doing well 7 informed of plan of care for discharge, discussed results, Pelvic done , cultures obtained ED Course Medical Decision Making I have reviewed the: Nursing Notes and Vitals. I have interpreted the following results: Labs, CT Scans and Oxygen Saturation. Discharged home with instructions and given opportunity for questions , discussed meds and s/s to return voices understanding Orders Placed This Encounter ??? TRAY EXAM PELVIC ??? CULTURE URINE ??? CHLAMYDIA + GC AMPLIFIED PROBE ??? TRICHOMONAS RAPID TEST ??? CT RENAL STONE PROTOCOL (NO IV AND NO ORAL CONTRAST) ??? CBC W AUTO DIFFERENTIAL ??? COMPREHENSIVE METABOLIC PANEL ??? URINALYSIS ROUTINE W/REFLEX TO CULTURE ??? COMPREHENSIVE METABOLIC PANEL ??? HCG URINE QUALITATIVE - POINT OF CARE (IP) ??? HCG URINE QUALITATIVE - POINT OF CARE (IP) ??? 0.9% NaCl injection 1-10 mL ??? ketorolac (TORADOL) injection 30 mg ??? phenazopyridine (PYRIDIUM) tablet 200 mg ??? DISCONTD: azithromycin (ZITHROMAX) tablet 2,000 mg ??? azithromycin (ZITHROMAX) tablet 1,000 mg ??? phenazopyridine (PYRIDIUM) 200 MG tablet ??? HYDROcodone-acetaminophen (NORCO) 5-325 MG tablet ??? metroNIDAZOLE (FLAGYL) 500 MG tablet ??? doxycycline (VIBRAMYCIN) 100 MG capsule ??? potassium chloride (KLOR-CON M) tablet 40 mEq Clinical Impression 26 year old female with report flank pain mostly right with dysuira no discharge no vomitng , no fever chills , also no diarrhea , considered renal colic /stone, not seen CT may have passed + vag discharge and treated For STD , labs reviewed Final diagnoses: Flank pain Hematuria Screen for STD (sexually transmitted disease) Hypokalemia documented in this encounter Plan of Treatment Not on file documented as of this encounter Procedures Procedure Name Priority Date/Time Associated Diagnosis Comments TRICHOMONAS RAPID TEST STAT 7:35 PM CDT CHLAMYDIA + GC AMPLIFIED PROBE STAT 03/18/2016 7:[address] ABDOMEN PELVIS WO CONTRAST STAT 03/18/2016 5:02 PM CDT Flank pain HCG URINE QUALITATIVE - POINT OF CARE Routine 03/18/2016 4:16 PM CDT HCG URINE QUALITATIVE - POINT OF CARE Routine 03/18/2016 4:15 PM CDT URINALYSIS REFLEX MICROSCOPIC REFLEX CULTURE STAT 03/18/2016 2:39 PM CDT CULTURE URINE STAT 03/18/2016 2:39 PM CDT CBC W AUTO DIFFERENTIAL STAT 03/18/2016 2:25 PM CDT COMPREHENSIVE METABOLIC PANEL STAT 03/18/2016 2:25 PM CDT documented in this encounter Results * TRICHOMONAS RAPID TEST (03/18/2016 7:35 PM CDT) Trichomonas Rapid Test Negative Negative 03/18/2016 8:37 PM CDT [facility] Microbiology ENTIRE VAGINA / Unknown 03/18/2016 7:35 PM CDT 03/18/2016 8:17 PM CDT Catherine Dubose VIRTUALIZATION ENGINEER-SOAP GRINDER LAB - MICROBIOLO GY ORDERABLES Performing Organization Address City/State/[facility] Co de Phone Number [facility] [address] [place], [place] [id number] * CHLAMYDIA + GC AMPLIFIED PROBE (03/18/2016 7:35 PM CDT) Chlamydia Amplified Probe Negative Negative 03/19/2016 10:11 AM CDT [facility] GC Amplified Probe Negative Negative 03/19/2016 10:11 AM CDT [facility] Microbiology ENTIRE ENDOCERVIX / Unknown 03/18/2016 7:35 PM CDT 03/18/2016 8:17 PM CDT Narrative [facility] - 03/19/2016 10:11 AM CDT Results based on detection/no detection of ribosomal RNA by amplified method. Catherine Mary Anne Dubose VIRTUALIZATION ENGINEER-SOAP GRINDER LAB - MICROBIOLO GY ORDERABLES [facility] [address] [place], [place] [address], [facility] [phone] * CT RENAL STONE PROTOCOL (NO IV AND NO ORAL CONTRAST) (03/18/2016 5:02 PM CDT) Anatomical Region Laterality Modality Abdomen, Pelvis Computed Tomogra phy 03/18/2016 5:04 PM CDT Impressions 03/18/2016 5:12 PM CDT Horseshoe kidney with nonobstructing renal calculi. No hydronephrosis or definite ureteral calculus is noted. Narrative 03/18/2016 5:12 PM CDT Examination: CT of the abdomen and pelvis without contrast History: Nausea and back pain Findings: CT of the abdomen and pelvis was performed without intravenous contrast. Comparison is made to 10/20/2015. Images through the lung bases demonstrate a no pneumonic consolidation, pleural effusion, or pneumothorax. There is no pericardial effusion. Noncontrast appearance of the liver is normal. The gallbladder appears normal. The spleen appears normal. The adrenal glands are normal. There is no peripancreatic stranding. Horseshoe kidney is again seen. There is a small 2 mm nonobstructing calculus within the right renal pelvis. No hydronephrosis is seen. No definite stone is seen along the expected course of the ureters. Intrauterine device is noted. Urinary bladder is decompressed. No significant free pelvic fluid is noted. There is a trace amount of free fluid in the pelvis. The appendix is normal. No suspicious osseous lytic or blastic lesion is seen. Procedure Note Robin Leon MD - 03/18/2016 Examination: CT of the abdomen and pelvis without contrast History: Nausea and back pain Findings: CT of the abdomen and pelvis was performed without intravenous contrast. Comparison is made to 10/20/2015. Images through the lung bases demonstrate a no pneumonic consolidation, pleural effusion, or pneumothorax. There is no pericardial effusion. Noncontrast appearance of the liver is normal. The gallbladder appears normal. The spleen appears normal. The adrenal glands are normal. There is no peripancreatic stranding. Horseshoe kidney is again seen. There is a small 2 mm nonobstructing calculus within the right renal pelvis. No hydronephrosis is seen. No definite stone is seen along the expected course of the ureters. Intrauterine device is noted. Urinary bladder is decompressed. No significant free pelvic fluid is noted. There is a trace amount of free fluid in the pelvis. The appendix is normal. No suspicious osseous lytic or blastic lesion is seen. IMPRESSION Horseshoe kidney with nonobstructing renal calculi. No hydronephrosis or definite ureteral calculus is noted. Marty Cole PA-C CT ORDERABLES * HCG URINE QUALITATIVE - POINT OF CARE (IP) (03/18/2016 4:16 PM CDT) Pathologist [facility] HCG Qual Urine Negative Negative [facility] QC Verified Yes Yes [facility] POC T TESTING Urine specimen (specimen) URINE / Unknown 03/18/2016 4:16 PM CDT Jerrod Mtz DO LAB - POINT OF CARE ORDERABLES Performing Organization Address [facility] Co de Phone Number [facility] PO[facility] TEST[facility] [address] [place] [address] * HCG URINE QUALITATIVE - POINT OF CARE (IP) (03/18/2016 4:15 PM CDT) Pathologist [facility] HCG Qual Urine Negative Negative [facility] POCT TEST[facility] QC Verified Yes Yes [facility] POC T TESTING Urine specimen (specimen) URINE / Unknown 03/18/2016 4:15 PM CDT Jerrod Mtz DO LAB - POINT OF CARE ORDERABLES Performing Organization Address [facility] Co de Phone Number [facility] [address] [place] [address] * CULTURE URINE (03/18/2016 2:39 PM CDT) [facility] Culture >100,000 CFU/mL urogenital marco CHRYSTAL 03/20/2016 8:26 AM CDT [facility] Urine URINE SPECIMEN OBTAINED BY CLEAN CATCH PROCEDURE / Unknown 03/18/2016 2:39 PM CDT 03/18/2016 2:46 PM CDT Jerrod Mtz DO LAB - MICROBIOLOGY O RDERABLES [facility] [address] [place], [place] [address], [facility] [phone] * (ABNORMAL) URINALYSIS ROUTINE W/REFLEX TO CULTURE (03/18/2016 2:39 PM CDT) Color UA Dulce(A) Straw, Yellow, Dark Yellow 03/18/2016 3:10 PM CDT [facility] Clarity UA Cloudy 03/18/2016 3:10 PM CDT [facility] Specific [place] UA >1.030(H) 1.005 - 1.030 03/18/2016 3:10 PM CDT [facility] pH UA 5.5 5.0 - 8.0 pH 03/18/2016 3:10 PM CDT [facility] Protein UA 1+(A) Negative 03/18/2016 3:10 PM CDT [facility] Blood UA 3+(A) Negative 03/18/2016 3:10 PM CDT [facility] Leukocyte UA 1+(A) Negative 03/18/2016 3:10 PM CDT [facility] Nitrite UA Negative Negative 03/18/2016 3:10 PM CDT [facility] Glucose UA Negative Negative 03/18/2016 3:10 PM CDT [facility] Ketone UA 2+(A) Negative 03/18/2016 3:10 PM CDT [facility] Bilirubin UA Negative Negative 03/18/2016 3:10 PM CDT [facility] Urobilinogen UA 1.0 0.1 - 1.0 EU/dL 03/18/2016 3:10 PM CDT [facility] WBC UA Auto 10-20(A) 0-2, 2-5 # /hpf 03/18/2016 3:10 PM CDT [facility] RBC UA Auto >100(A) 0-2, 2-5 # /hpf 03/18/2016 3:10 PM CDT [facility] Epithelial Cell UA Auto 10-20(A) 0-2, 2-5 # /hpf 03/18/2016 3:10 PM CDT [facility] Hyaline Casts UA Auto 2-5(A) 0 - 2 #/lpf 03/18/2016 3:10 PM CDT [facility] Reflex Status Culture to follow 03/18/2016 3:10 PM CDT [facility] Urine URINE SPECIMEN OBTAINED BY CLEAN CATCH PROCEDURE / Unknown 03/18/2016 2:39 PM CDT 03/18/2016 2:46 PM CDT Jerrod Mtz DO LAB - URINALYSIS ORD ERABLES [facility] [address] [place], [place] [phone] * (ABNORMAL) COMPREHENSIVE METABOLIC PANEL (03/18/2016 2:25 PM CDT) Glucose 87 74 - 106 mg/dL 03/18/2016 2:51 PM CDT [facility] Sodium 139 136 - 145 mmol/L 03/18/2016 2:51 PM CDT [facility] Potassium 3.3(L) 3.5 - 5.1 mmol/L 03/18/2016 2:51 PM CDT [facility] Chloride 105 98 - 107 mmol/L 03/18/2016 2:51 PM CDT [facility] CO2 25 22 - 31 mmol/L 03/18/2016 2:51 PM CDT [facility] Calcium 8.8 8.5 - 10.1 mg/dL 03/18/2016 2:51 PM CDT [facility] Anion Gap 9 5 - 20 mmol/L 03/18/2016 2:51 PM CDT [facility] BUN 10 7 - 21 mg/dL 03/18/2016 2:51 PM CDT [facility] Creatinine 0.62 0.50 - 1.30 mg/dL 03/18/2016 2:51 PM CDT [facility] Alkaline Phosphatase 71 38 - 126 U/L 03/18/2016 2:51 PM CDT [facility] ALT 15 13 - 61 U/L 03/18/2016 2:51 PM CDT [facility] Comment:See reference range update AST 10 5 - 40 U/L 03/18/2016 2:51 PM CDT [facility] Protein Total 7.3 6.4 - 8.2 gm/dL 03/18/2016 2:51 PM CDT [facility] Albumin 3.5 3.4 - 5.0 gm/dL 03/18/2016 2:51 PM CDT [facility] Bilirubin Total 0.3 0.2 - 1.0 mg/dL 03/18/2016 2:51 PM CDT [facility] eGFR by MDRD >60 >60 mL/min/1.7 3m2 03/18/2016 2:51 PM CDT [facility] eGFR by MDRD >60 >60 mL/min/1.7 3m2 03/18/2016 2:51 PM CDT [facility] Blood BLOOD SPECIMEN / Unknown 03/18/2016 2:25 PM CDT 03/18/2016 2:33 PM CDT Regino Dill MD LAB - CHEMISTRY JOANNA YUNG [facility] Organization Address City/State/[facility] Co de Phone Number [facility] [address] [place] [address] * (ABNORMAL) CBC W AUTO DIFFERENTIAL (03/18/2016 2:25 PM CDT) WBC 7.2 4.4 - 10.7 x10E9/L 03/18/2016 2:36 PM CDT [facility] WBC Corrected x10E9/L 03/18/2016 2:36 PM CDT [facility] RBC 4.49 3.80 - 5.20 x10E12/L 03/18/2016 2:36 PM CDT [facility] Hemoglobin 11.3(L) 12.0 - 15.6 gm/dL 03/18/2016 2:36 PM CDT [facility] Hematocrit 33.9(L) 35.9 - 45.5 % 03/18/2016 2:36 PM CDT [facility] MCV 75.5(L) 80.7 - 98.3 fl 03/18/2016 2:36 PM CDT [facility] MCH 25.2(L) 26.7 - 34.0 pg 03/18/2016 2:36 PM CDT [facility] MCHC 33.3 30.8 - 35.9 gm/dL 03/18/2016 2:36 PM CDT [facility] Platelet Count 387 153 - 416 x10E9/L 03/18/2016 2:36 PM CDT [facility] RDW-CV 17.8(H) 12.1 - 14.9 % 03/18/2016 2:36 PM CDT [facility] MPV 9.4 9.4 - 12.9 fl 03/18/2016 2:36 PM T [facility] Neutrophils % 55.1 44.0 - 73.0 % 03/18/2016 2:36 PM CDT [facility] Lymphocytes % 29.6 20.0 - 43.0 % 03/18/2016 2:36 PM T [facility] Monocytes % 12.2 5.0 - 13.0 % 03/18/2016 2:36 PM T [facility] Eosinophils % 2.1 0.0 - 6.0 % 03/18/2016 2:36 PM T [facility] Basophils % 0.7 0.0 - 2.0 % 03/18/2016 2:36 PM T [facility] Immature Granulocytes 0.3 0 - 1 % 03/18/2016 2:36 PM T [facility] Neutrophil Absolute 3.98 2.01 - 7.14 x10E9/L 03/18/2016 2:36 PM CDT [facility] Lymphocytes Absolute 2.14 1.07 - 3.94 x10E9/L 03/18/2016 2:36 PM CDT [facility] Monocytes Absolute 0.88 0.26 - 1.07 x10E9/L 03/18/2016 2:36 PM CDT [facility] Eosinophils Absolute 0.15 0 - 0.47 x10E9/L 03/18/2016 2:36 PM T [facility] Basophils Absolute 0.05 0 - 0.08 x10E9/L 03/18/2016 2:36 PM T [facility] Immature Granulocytes Absolute 0.02 0.00 - 0.06 x10E9/L 03/18/2016 2:36 PM T [facility] nRBC Auto 0 /100 WBC 03/18/2016 2:36 PM [facility] Blood BLOOD SPECIMEN / Unknown 03/18/2016 2:25 PM CDT 03/18/2016 2:33 PM CDT Jerrod Mtz DO LAB - HEMATOLOGY ORD [facility] Organization Address City/State/ZIP Co de Phone Number [facility] [address] [place] [address] documented in this encounter Visit Diagnoses Diagnosis Flank pain Abdominal pain, unspecified site Hematuria Screen for STD (sexually transmitted disease) Screening examination for venereal disease Hypokalemia Hypopotassemia documented in this encounter Administered Medications Inactive Administered Medications - up to 3 most recent administrations Medication Order MAR Action Action Date Dose Rate Site azithromycin (ZITHROMAX) tablet 1,000 mg 1,000 mg, Oral, NOW, 1 dose, On Thu03/18/16 at 1915 $ Given 03/18/2016 7:39 PM CDT 1,000 mg ketorolac (TORADOL) injection 30 mg 30 mg, Intravenous, NOW, 1 dose, On Thu03/18/16 at 1730 $ Given 03/18/2016 5:39 PM CDT 30 mg phenazopyridine (PYRIDIUM) tablet 200 mg 200 mg, Oral, NOW, 1 dose, On Thu03/18/16 at 1915 $ Given 03/18/2016 7:36 PM CDT 200 mg documented in this encounter Active and Recently Administered Medications Times are shown in CDT. Scheduled Medication Order 03/16/2016 03/17/2016 03/18/2016 azithromycin (ZITHROMAX) tablet 1,000 mg (COMPLETED) 1,000 mg, Oral, NOW, 1 dose, On Thu03/18/16 at 1915 1939 ($ Given - Prov ider: Maris Duffy RN) ketorolac (TORADOL) injection 30 mg (COMPLETED) 30 mg, Intravenous, NOW, 1 dose, On Thu03/18/16 at 1730 1739 ($ Given - Prov ider: Shayla Ware RN) phenazopyridine (PYRIDIUM) tablet 200 mg (COMPLETED) 200 mg, Oral, NOW, 1 dose, On Thu03/18/16 at 1915 1936 ($ Given - Prov ider: Maris Duffy, RAZIA) documented in this encounter
--- OUTSIDE RECORDS SUMMARY | 2024-09-25 11:49 | XMS_ITS | Encounter Summary ---
Author Organization [facility] Address [address] [place] [address] Care Team Providers Care Radio Repairman Name Role Phone Unavailable Primary Care Provider Unavailabl e Reason for Visit * Reason Comments Pain Pelvic c/o intermittent sha rp pain in pelvis x 2 weeks. Vaginal bleeding. States IUD feels out of place. No nausea, vomiting, diarrhea, dysuria. Was here last pm but left before being seen. Had labs, UA, neg UHCG. Encounter Details Date Type Department Care Team (Late st Contact Info) Description 05/01/2016 12:36 PM CDT - 05/01/2016 5:45 PM CDT Emergency ER at [address] [id number] Jimi Samano MD [address] [place] [address] Emergency Department [place], [place] [id number] [place] [address] [place] [address] Complication of intrauterine device (IUD), unspecified complication, initial encounter (HCC) (Primary Dx); Pelvic pain in female Discharge Disposition: Home or Self Care Social [...] Sign Reading Time Taken Comments Blood Pressure 99/63 05/01/2016 4:36 PM CDT Pulse 74 05/01/2016 5:30 PM CDT Temperature 37 ??C (98.6 ??F) 05/01/2016 1:04 PM CDT Respiratory Rate 17 05/01/2016 5:30 PM CDT Oxygen Saturation 100% 05/01/2016 4:21 PM CDT Inhaled Oxygen Concentration - - Weight - - Height - - Body Mass Index - - documented in this encounter Functional Status Functional [...] this encounter Discharge Instructions * Discharge Instructions* Reg Butler DO - 05/01/2016 5:29 PM CDT Images from the original note were not included. Abdominal Pain Many things can cause abdominal pain. Usually, abdominal pain is not caused by a disease and will improve without treatment. It can often be observed and treated at home. Your health care provider will do a physical exam and possibly order blood tests and X-rays to help determine the seriousness ofyour pain. However, in many cases, more time must pass before a clear cause of the pain can be found . Before that point, your health care provider may not know if you need more testing or further treatment. HOME CARE INSTRUCTIONS Monitor your abdominal pain for any changes. The following actions may help to alleviate any discomfort you are experiencing: ?? Only take chme-rlw-woqcofm or prescription medicines as directed by your health care provider. ?? Do not take laxatives unless directed to do so by your health care provider. ?? Try a clear liquid diet (broth, tea, or water) as directed by your health care provider. Slowly move to a bland diet as tolerated. SEEK MEDICAL CARE IF: ?? You have unexplained abdominal pain. ?? You have abdominal pain associated with nausea or diarrhea. ?? You have pain when you urinate or have a bowel movement. ?? You experience abdominal pain that wakes you in the night. ?? You have abdominal pain that is worsened or improved by eating food. ?? You have abdominal pain that is worsened with eating fatty foods. ?? You have a fever. SEEK IMMEDIATE MEDICAL CARE IF: ?? Your pain does not go away within 2 hours. ?? You keep throwing up (vomiting). ?? Your pain is felt only in portions of the abdomen, such as the right side or the left lower portion of the abdomen. ?? You pass bloody or black tarry stools. MAKE SURE YOU: ?? Understand these instructions. ? Will watch your condition. ? Will get help right away if you are not doing well or get worse. ?? Document Released: 06/03/2006 Document Revised: 08/29/2014 Document Reviewed: 05/03/2014 ExitCare?? Patient Information ??2015 [email or web address]. This information is not intended to replace advice given to you by your health care provider. Make sure you discuss any questions you have with your health care provider. Pelvic Pain, Female Female pelvic pain can be caused by many different things and start from a variety of places. Pelvic pain refers to pain that is located in the lower half of the abdomen and between your hips. The pain may occur over a short period of time (acute) or may be reoccurring (chronic). The cause of pelvic pain may be related to disorders affecting the female reproductive organs (gynecologic), but it may also be related to the bladder, kidney stones, an intestinal complication, or muscle or skeletal problems. Getting help right away for pelvic pain is important, especially if there has been severe, sharp, or a sudden onset of unusual pain. It is also important to get help right away because some types of pelvic pain can be life threatening. CAUSES Below are only some of the causes of pelvic pain. The causes of pelvic pain can be in one of several categories. ?? Gynecologic. ?? Pelvic inflammatory disease. ?? Sexually transmitted infection. ?? Ovarian cyst or a twisted ovarian ligament (ovarian torsion). ?? Uterine lining that grows outside the uterus (endometriosis). ?? Fibroids, cysts, or tumors. ?? Ovulation. ?? . ?? that occurs outside the uterus (ectopic ). ?? Miscarriage. ?? Labor. ?? Abruption of the placenta or ruptured uterus. ?? Infection. ?? Uterine infection (endometritis). ?? Bladder infection. ?? Diverticulitis. ?? Miscarriage related to a uterine infection (septic ). ?? Bladder. ?? Inflammation of the bladder (cystitis). ?? Kidney stone(s). ?? Gastrointenstinal. ?? Constipation. ?? Diverticulitis. ?? Neurologic. ?? Trauma. ?? Feeling pelvic pain because of mental or emotional causes (psychosomatic). ?? Cancers of the bowel or pelvis. EVALUATION Your caregiver will want to take a careful history of your concerns. This includes recent changes in your health, a careful gynecologic history of your periods (menses), and a sexual history. Obtaining your family history and medical history is also important. Your caregiver may suggest a pelvic exam. A pelvic exam will help identify the location and severity of the pain. It also helps in the evaluation of which organ system may be involved. In order to identify the cause of the pelvic pain andbe properly treated, your caregiver may order tests. These tests may include: ?? A test. ?? Pelvic ultrasonography. ?? An X-ray exam of the abdomen. ?? A urinalysis or evaluation of vaginal discharge. ?? Blood tests. HOME CARE INSTRUCTIONS ?? Only take yzja-wuq-qklkurq or prescription medicines for pain, discomfort, or fever as directed by your caregiver. ? Rest as directed by your caregiver. ? Eat a balanced diet. ? Drink enough fluids to make your urine clear or pale yellow, or as directed. ? Avoid sexual intercourse if it causes pain. ? Apply warm or cold compresses to the lower abdomen depending on which one helps the pain. ? Avoid stressful situations. ? Keep a journal of your pelvic pain. Write down when it started, where the pain is located, and if there are things that seem to be associated with the pain, such as food or your menstrual cycle. ?? Follow up with your caregiver as directed. ?? SEEK MEDICAL CARE IF: ?? Your medicine does not help your pain. ?? You have abnormal vaginal discharge. SEEK IMMEDIATE MEDICAL CARE IF: ?? You have heavy bleeding from the vagina. ? Your pelvic pain increases. ? You feel lightheaded or faint. ? You have chills. ? You have pain with urination or blood in your urine. ? You have uncontrolled diarrhea or vomiting. ? You have a fever or persistent symptoms for more than 3 days. ?? You have a fever and your symptoms suddenly get worse. ? You are being physically or sexually abused. ?? MAKE SURE YOU: ?? Understand these instructions. ?? Will watch your condition. ?? Will get help if you are not doing well or get worse. Document Released: 07/21/2005 Document Revised: 02/22/2013 Document Reviewed: 12/13/2012 ExitCare?? Patient Information ??2013 [employer]. documented in this encounter Medications at Time of Discharge Medication Sig Dispensed Refills Start Date End Date albuterol HFA (PROVENTIL;VENTOLIN;PROA IR) 108 (90 BASE) MCG/ACT inhaler Inhale 2 Puffs by mouth every 6 hours as needed Reported on 10/23/2016 02/21/2021 HYDROcodone-acetaminophe n (NORCO) 5-325 MG tablet Take 1 Tab by mouth every 4 hours as needed for Pain 10 Tab 0 05/01/2016 12/15/2016 documented as of this encounter Progress Notes * Amber Wilson MD - 05/01/2016 5:03 PM CDT R2 [facility] Progress Note I spoke with Dr. Butler regarding Datreion Deven Rivers' TVUS findings and her concern that her IUD was coming out. The displacement of the IUD is likely due to myometrial contraction as she is on her menses; spontaneous expulsion is rare outside of the period just after insertion. I informed Dr. Butler that the patient should have the IUD removed and replaced for maximum efficacy, although she is likely still being exposed to therapeutic levels of LNG. I will route this note to our access center to schedule Ms. Rivers for an appointment in [facility] to replace her IUD. Amber Wilson MD 05/01/2016 5:06 PM documented in this encounter ED Notes * Hien Orantes RN - 05/01/2016 6:00 PM CDT Discharge instructions and follow-up care discussed with pt. Pt verbalized understanding. Ambulatory out of ED. * Rowena Tidwell RN - 05/01/2016 4:52 PM CDT Pt pelvic exam complete. * Reg Butler DO - 05/01/2016 4:11 PM CDT Provider contact with the patient: 05/01/2016 16:11 Jumana Rivers [id number] [facility] History Chief Complaint Patient presents with ??? Pain Pelvic c/o intermittent sharp pain in pelvis x 2 weeks. Vaginal bleeding. States IUD feels out of place. No nausea, vomiting, diarrhea, dysuria. Was here last pm but left before being seen. Had labs, UA, neg UHCG. HPI Comments: Jumana Rivers is a 26 y.o. female presenting to the ED with a chief complaint of recurrent, moderate central pelvic pain starting 2 weeks ago. The pain is intermittent and sharp. Associated sx include intermittent vaginal bleeding described as spotting, early onset and prolongedheavy menses. Patient denies vaginal discharge. Patient believes her IUD is out of place. She felt the whole bottom stem when she originally only felt the strings. She had it placed at [facility] clinic. Female Genitourinary The primary symptoms include pelvic pain.The primary symptoms do not include dysuria.The history isprovided by the patient. This is a recurrent problem. Episode onset: 2 weeks. The problem occurs constantly. The problem has not changed since onset.The quality of the pain is described as sharp. Thepain is moderate. Affected Side: central. The symptoms occur at rest. LMP: Ongoing, early/prolonged/heavy. Pertinent negatives include no diaphoresis, no fever, no abdominal pain, no constipation, nodiarrhea, no nausea, no vomiting, no frequency or no dizziness.She uses an IUD for contraception. Past Medical History Diagnosis Date ??? Asthma [...] Quit smoking in December ??? Alcohol Use: 0.0 oz/week 0 Not specified per week Comment: rarely ??? Drug Use: No ??? Sexual Activity: Not on file Other Topics Concern ??? Not on file Social History Narrative Review of Systems Review of Systems Constitutional: Negative. Negative for fever, chills and diaphoresis. HENT: Negative. Negative for congestion, ear pain and sore throat. Eyes: Negative. Negative for blurred vision, pain, discharge and redness. Respiratory: Negative. Negative for cough, shortness of breath and wheezing. Cardiovascular: Negative. Negative for chest pain and leg swelling. Gastrointestinal: Negative. Negative for heartburn, nausea, vomiting, abdominal pain, diarrhea, constipation and blood in stool. Genitourinary: Positive for pelvic pain. Negative for dysuria and frequency. Positive for pelvic pain Positive for intermittent vaginal bleeding Positive for early/prolonged/heavy menses Negative for vaginal discharge Musculoskeletal: Negative. Negative for myalgias and back pain. Skin: Negative. Negative for rash. Neurological: Negative. Negative for dizziness, tremors, focal weakness, seizures, loss of consciousness and headaches. Endo/Heme/Allergies: Negative. Does not bruise/bleed easily. Psychiatric/Behavioral: Negative. The patient is not nervous/anxious. All other systems reviewed and are negative. Physical Exam BP 111/60 mmHg Pulse 78 Temp(Src) 98.6 ??F Resp 16 SpO2 100% Physical Exam Constitutional: She is [...] No scleral icterus. Neck: Normal range of motion. Neck supple. No tracheal deviation present. Cardiovascular: Normal rate, regular rhythm, normal heart sounds and intact distal pulses. No murmur heard. Pulses: Radial pulses are 2+ on the right side, and 2+ on the left side. Femoral pulses are 2+ on the right side, and 2+ on the left side. Dorsalis pedis pulses are 2+ on the right side, and 2+ on the left side. Pulmonary/Chest: Effort normal and breath sounds normal. No respiratory distress. She has no wheezes. She has no rales. She exhibits no tenderness. Abdominal: Soft. Bowel sounds are normal. She exhibits no distension. There is tenderness in the suprapubic area. Genitourinary: Rectal exam shows no mass and no tenderness. There is no tenderness on the right labia. There is no tenderness on the left labia. Uterus is not tender. Cervix exhibits no motion tenderness and no discharge. Right adnexum displays no mass and no tenderness. Left adnexum displays no mass and no tenderness. No tenderness in the vagina. No vaginal discharge found. RN Rowena served as female mountain or glacier guide. Clotted blood present in vaginal vault. IUD strings and 0.5cm of stem present under direct visualization. Musculoskeletal: Normal range of motion. She exhibits no edema or tenderness. Neurological: She is alert and oriented to person, place, and time. She has normal reflexes. No cranial nerve deficit. Skin: Skin is warm and dry. No rash noted. She is not diaphoretic. No erythema. Psychiatric: She has a normal mood and affect. Her behavior is normal. Judgment and thought contentnormal. Nursing note and vitals reviewed. Medications Current Outpatient Prescriptions Medication Sig Dispense Refill ??? albuterol HFA (PROVENTIL;VENTOLIN;PROAIR) 108 (90 BASE) MCG/ACT inhaler Inhale 2 Puffs by mouthevery 6 hours as needed ??? HYDROcodone-acetaminophen (NORCO) 5-325 MG tablet Take 1 Tab by mouth every 4 hours as needed for Pain 10 Tab 0 Procedures Procedures ECG Interpretation ECG Interpretation Lab Interpretation Oxygen Saturation Interpretation The oxygen saturation level is: 100%. The patient was on Room Air for the saturation measurement. Oxygen saturation interpretation is Normal. Hospital Encounter on 05/01/16 TRICHOMONAS RAPID TEST Result Value Ref Range Trichomonas Rapid Test Negative Negative CBC W AUTO DIFFERENTIAL Result Value Ref Range WBC 6.7 4.4-10.7 x10E9/L WBC Corrected x10E9/L RBC 4.13 3.80-5.20 x10E12/L Hgb 10.4 (L) 12.0-15.6 gm/dL HCT 31.8 (L) 35.9-45.5 % MCV 77.0 (L) 80.7-98.3 fl MCH 25.2 (L) 26.7-34.0 pg MCHC 32.7 30.8-35.9 gm/dL Plt Ct 367 153-416 x10E9/L RDW-CV 18.2 (H) 12.1-14.9 % MPV 9.3 (L) 9.4-12.9 fl Neutro 51.2 44.0-73.0 % Lymph 33.1 20.0-43.0 % George 11.9 5.0-13.0 % Eos 2.5 0.0-6.0 % Baso 0.9 0.0-2.0 % Immature Grans 0.4 0-1 % Neutro Abs 3.44 2.01-7.14 x10E9/L Lymph Abs 2.23 1.07-3.94 x10E9/L George Abs 0.80 0.26-1.07 x10E9/L Eosin Abs 0.17 0-0.47 x10E9/L Baso Abs 0.06 0-0.08 x10E9/L Immature Grans (Abs) 0.03 0.00-0.06 x10E9/L NRBC Auto 0 /100 WBC COMPREHENSIVE METABOLIC PANEL Result Value Ref Range Glucose 92 74-106 mg/dL Sodium 143 136-145 mmol/L Potassium 3.3 (L) 3.5-5.1 mmol/L Chloride 110 (H) 98-107 mmol/L CO2 26 22-31 mmol/L Calcium 8.2 (L) 8.5-10.1 mg/dL Anion Gap 7 5-20 mmol/L BUN 8 7-21 mg/dL Creatinine 0.64 0.50-1.30 mg/dL Alk Phos 56 38-126 U/L ALT/SGPT 16 13-61 U/L AST/SGOT 11 5-40 U/L Protein Total 6.8 6.4-8.2 gm/dL Albumin 3.3 (L) 3.4-5.0 gm/dL Bili Total 0.3 0.2-1.0 mg/dL eGFR MDRD >60 >60 mL/min/1.73m2 eGFR MDRD AFR AMR >60 >60 mL/min/1.73m2 US PELVIS W/TRANSVAG AND DOPPLER Final Result PELVIC SONOGRAM TRANSABDOMINAL VIEWS. HISTORY: Pelvic pain, [...] by Aleah Ramos on 05/01/2016 2:31 PM Progress Notes 4:10 PM Initial encounter: Will review labs, US. Patient is agreeable with plan. 4:39 PM I re-evaluated the patient???s medical condition, comfort, and provided a care update. Pelvic exam performed. RAZIA Guaman served as female mountain or glacier guide. 4:48 PM Paged [facility]. 5:01 PM: I discussed with Dr. Wilson (ARMATURE STRAIGHTENER) about all pertinent aspects of the case includingHPI details, physical exam findings, testing completed, medications given, the pt's current condition, and my clinical impression at this time. 5:25 PM Rechecked pt -patient resting comfortably and feeling better. I discussed the results of diagnostic studies and my clinical impression with the patient. Patient agrees with plan and dischargeat this time, all questions addressed. At this present time, a medical screening [...] understanding of the discharge instructions. ED Course Medical Decision Making I have reviewed the: Previous Chart, Nursing Notes and Vitals. I have interpreted the following results: Labs, Ultrasound and Oxygen Saturation. I have discussed the case with [facility] (Dr. Leyva). Malpositioned IUD. Discussed with mail clerk bills. Follow up arranged for removal. No Vaginal discharge. Cultures pending. UA negative last evening. HCG negative. Minimal suprapubic tenderness. No RLQ tenderness. HGB 10. WBC wnl. Orders Placed This Encounter ??? TRAY EXAM PELVIC ??? CHLAMYDIA + GC AMPLIFIED PROBE ??? TRICHOMONAS RAPID TEST ??? US PELVIS W/TRANSVAG AND DOPPLER ??? CBC W AUTO DIFFERENTIAL ??? COMPREHENSIVE METABOLIC PANEL ??? HYDROcodone-acetaminophen (NORCO) 5-325 MG tablet Clinical Impression Final diagnoses: Pelvic pain in female Complication of intrauterine device (IUD), unspecified complication, initial encounter (Primary) New Medications: Discharge Medication List as of 05/01/2016 5:29 PM START taking these medications Details HYDROcodone-acetaminophen (NORCO) 5-325 MG tablet Disp-10 Tab, R-0, Take 1 Tab by mouth every 4 hours as needed for Pain, Print I have advised the patient to follow-up with: [facility] [address] [place] [address] Call in 1 day If symptoms worsen return to the emergency department Disposition: Discharged I have reviewed the information recorded by the scribe and agree with its accuracy and contents--Dr. Butler 05/01/2016 9:36 PM Transcribed by Donald Hughes acting scribe on behalf of Dr. Butler 05/01/2016 4:11 PM * Rowena Tidwell RN - 05/01/2016 4:07 PM CDT Pt presents to ED in complaints of pelvic pain. Pt reports he IUD came out of place about 2 weeks ago. Pt reports she has been having lower intermittent pelvic pain. Pt reports started period 8 days early. Pt reports heavy bleeding. Pt denies any vaginal discharge. Pt reports dizziness. Pt denies any N/V. Pt reports she was here yesterday but LWBS. Pt does not appear in any distress. * Darlene Martinez PA - 05/01/2016 12:53 PM CDT Provider contact with the patient 12:54 PM 05/01/2016 Patient presents with a chief complaint of pelvic pain. History of present illness: Jumana Rivers is a 26 y.o. female presenting to the ED with a chief complaint of new onset, intermittent, moderate, sharp pelvic pain starting 2 weeks ago. Denies vomiting. Associated symptoms include dizziness and nausea. She says she felt her IUD coming out , but when she tried to pull the IUD, the pain was too severe. Patient had IUD placed last year. Physical Exam: Heart: RRR Lungs: CTA Abdomen: soft, non-tender Neuro: AOx3 Complete vital signs reviewed. Diagnostic tests ordered: Orders Placed This Encounter ??? US PELVIS W/TRANSVAG AND DOPPLER ??? URINALYSIS ROUTINE W/REFLEX TO CULTURE ??? CBC W AUTO DIFFERENTIAL ??? COMPREHENSIVE METABOLIC PANEL ??? HCG URINE QUALITATIVE - POINT OF CARE (IP) Blood pressure 115/68, pulse 60, temperature 98.6 ??F, resp. rate 12, SpO2 98 %, unknown if currently . Based on the Medical Screening Exam performed and diagnostic tests at this time: Further evaluation is indicated and will be performed. Care will be transferred to ER provider. I have reviewed the information recorded by the scribe and agree with its accuracy and contents--NIKHIL Vegas 05/01/2016 1:04 PM Transcribed by Chirag Kinney acting scribe on behalf of NIKHIL Martinez 05/01/2016 12:56 PM * Krystin Owens RN - 05/01/2016 12:48 PM CDT Presents with c/o IUD being out of place which started one week ago. Call light in reach. Questions answered. documented in this encounter Plan of Treatment Not on file documented as of this encounter Procedures Procedure Name Priority Date/Time Associated Diagnosis Comments TRICHOMONAS RAPID TEST STAT 05/01/2016 4:47 PM CDT CHLAMYDIA + GC AMPLIFIED PROBE STAT 05/01/2016 4:47 PM CDT US PELVIS W TRANSVAG W DOP NON OB STAT 05/01/2016 2:14 PM CDT Pelvic pain in female Complication of intrauterine device (IUD), unspecified complication, initial encounter ([facility]) CBC W AUTO DIFFERENTIAL STAT 05/01/2016 1:00 PM CDT COMPREHENSIVE METABOLIC PANEL STAT 05/01/2016 1:00 PM CDT documented in this encounter Results * TRICHOMONAS RAPID TEST (05/01/2016 4:47 PM CDT) Trichomonas Rapid Test Negative Negative 05/01/2016 5:26 PM CDT [facility] Microbiology ENTIRE VAGINA / Unknown 05/01/2016 4:47 PM CDT 05/01/2016 4:56 PM CDT Reg Butler DO LAB - MICROBIOLOGY O RDERABLES Performing Organization Address [facility]/ZIP Co de Phone Number [facility] [address] [place] [address] * CHLAMYDIA + GC AMPLIFIED PROBE (05/01/2016 4:47 PM CDT) Chlamydia Amplified Probe Negative Negative 05/02/2016 11:22 AM CDT [facility] GC Amplified Probe Negative Negative 05/02/2016 11:22 AM CDT [facility] Microbiology ENTIRE ENDOCERVIX / Unknown Collection / Unknown 05/01/2016 4:47 PM CDT 05/01/2016 4:56 PM CDT Narrative [facility] - 05/02/2016 11:22 AM CDT Results based on detection/no detection of ribosomal RNA by amplified method. Reg Butler DO LAB - MICROBIOLOGY O RDERABLES Performing Organization Address [facility] Co de Phone Number [facility] [address] [phone] * US PELVIS W/TRANSVAG AND DOPPLER (05/01/2016 [...] 2:31 PM Darlene TEJEDA US ORDERABLES * (ABNORMAL) COMPREHENSIVE METABOLIC PANEL (05/01/2016 1:00 PM CDT) Glucose 92 74 - 106 mg/dL 05/01/2016 1:24 PM CDT [facility] Sodium 143 136 - 145 mmol/L 05/01/2016 1:24 PM CDT [facility] Potassium 3.3(L) 3.5 - 5.1 mmol/L 05/01/2016 1:24 PM CDT [facility] Chloride 110(H) 98 - 107 mmol/L 05/01/2016 1:24 PM CDT [facility] CO2 26 22 - 31 mmol/L 05/01/2016 1:24 PM CDT [facility] Calcium 8.2(L) 8.5 - 10.1 mg/dL 05/01/2016 1:24 PM CDT [facility] Anion Gap 7 5 - 20 mmol/L 05/01/2016 1:24 PM CDT [facility] BUN 8 7 - 21 mg/dL 05/01/2016 1:24 PM CDT [facility] Creatinine 0.64 0.50 - 1.30 mg/dL 05/01/2016 1:24 PM CDT [facility] Alkaline Phosphatase 56 38 - 126 U/L 05/01/2016 1:24 PM CDT [facility] ALT 16 13 - 61 U/L 05/01/2016 1:24 PM CDT [facility] Comment:See reference range update AST 11 5 - 40 U/L 05/01/2016 1:24 PM CDT [facility] Protein Total 6.8 6.4 - 8.2 gm/dL 05/01/2016 1:24 PM CDT [facility] Albumin 3.3(L) 3.4 - 5.0 gm/dL 05/01/2016 1:24 PM CDT [facility] Bilirubin Total 0.3 0.2 - 1.0 mg/dL 05/01/2016 1:24 PM CDT [facility] eGFR by MDRD >60 >60 mL/min/1.7 3m2 05/01/2016 1:24 PM CDT [facility] eGFR by MDRD >60 >60 mL/min/1.7 3m2 05/01/2016 1:24 PM CDT [facility] Blood BLOOD SPECIMEN / Unknown Venipuncture / Unknown 05/01/2016 1:00 PM CDT 05/01/2016 1:06 PM CDT Darlene TEJEDA LAB - CHEMISTRY JOANNA YUNG [facility] Organization Address City/State/ZIP Co de Phone Number [facility] [address] [phone] * (ABNORMAL) CBC W AUTO DIFFERENTIAL (05/01/2016 1:00 PM CDT) WBC 6.7 4.4 - 10.7 x10E9/L 05/01/2016 1:09 PM CDT [facility] WBC Corrected x10E9/L 05/01/2016 1:09 PM CDT [facility] RBC 4.13 3.80 - 5.20 x10E12/L 05/01/2016 1:09 PM CDT [facility] Hemoglobin 10.4(L) 12.0 - 15.6 gm/dL 05/01/2016 1:09 PM CDT [facility] Hematocrit 31.8(L) 35.9 - 45.5 % 05/01/2016 1:09 PM CDT [facility] MCV 77.0(L) 80.7 - 98.3 fl 05/01/2016 1:09 PM CDT [facility] MCH 25.2(L) 26.7 - 34.0 pg 05/01/2016 1:09 PM CDT [facility] MCHC 32.7 30.8 - 35.9 gm/dL 05/01/2016 1:09 PM CDT [facility] Platelet Count 367 153 - 416 x10E9/L 05/01/2016 1:09 PM [facility] RDW-CV 18.2(H) 12.1 - 14.9 % 05/01/2016 1:09 PM [facility] MPV 9.3(L) 9.4 - 12.9 fl 05/01/2016 1:09 PM [facility] Neutrophils % 51.2 44.0 - 73.0 % 05/01/2016 1:09 PM [facility] Lymphocytes % 33.1 20.0 - 43.0 % 05/01/2016 1:09 PM [facility] Monocytes % 11.9 5.0 - 13.0 % 05/01/2016 1:09 PM [facility] Eosinophils % 2.5 0.0 - 6.0 % 05/01/2016 1:09 PM [facility] Basophils % 0.9 0.0 - 2.0 % 05/01/2016 1:09 PM [facility] Immature Granulocytes 0.4 0 - 1 % 05/01/2016 1:09 PM [facility] Neutrophil Absolute 3.44 2.01 - 7.14 x10E9/L 05/01/2016 1:09 PM [facility] Lymphocytes Absolute 2.23 1.07 - 3.94 x10E9/L 05/01/2016 1:09 PM [facility] Monocytes Absolute 0.80 0.26 - 1.07 x10E9/L 05/01/2016 1:09 PM [facility] Eosinophils Absolute 0.17 0 - 0.47 x10E9/L 05/01/2016 1:09 PM [facility] Basophils Absolute 0.06 0 - 0.08 x10E9/L 05/01/2016 1:09 PM [facility] Immature Granulocytes Absolute 0.03 0.00 - 0.06 x10E9/L 05/01/2016 1:09 PM [facility] nRBC Auto 0 /100 WBC 05/01/2016 1:09 PM [facility] Blood BLOOD SPECIMEN / Unknown 05/01/2016 1:00 PM CDT 05/01/2016 1:06 PM CDT Darlene TEJEDA LAB - HEMATOLOGY ORD ERABLES [facility] [address] [place] [address] documented in this encounter Visit Diagnoses Diagnosis Complication of intrauterine device (IUD), unspecified complication, initial encounter (HCC)- Primary Pelvic pain in female Unspecified symptom associated with female genital organs documented in this encounter
--- OUTSIDE RECORDS SUMMARY | 2024-09-25 11:49 | XMS_ITS | Encounter Summary ---
Author Organization [facility] Address [address] [facility] [place] [address] Care Team Providers Care Technical Customer Support Specialist Name Role Phone Unavailable Primary Care Provider Unavailabl e Reason for Visit * Reason Comments Pain Pelvic pelvic pain for one week/has an IUD and thinks it has shifted/vag spotting 2 weeks ago Encounter Details Date Type Department Care Team (Late st Contact Info) Description 04/30/2016 11:42 PM CDT - 05/01/2016 12:25 AM CDT Emergency ER at [address] [id number] Discharge Disposition: Left Against Medical Advice/Discontinued Care [...] Sign Reading Time Taken Comments Blood Pressure 108/62 04/30/2016 5:52 PM CDT Pulse 84 04/30/2016 5:52 PM CDT Temperature 37.1 ??C (98.7 ??F) 04/30/2016 5:52 PM CD T Respiratory Rate 18 04/30/2016 5:52 PM CDT Oxygen Saturation 100% 04/30/2016 5:52 PM CDT Inhaled Oxygen Concentration - - Weight 88 kg (194 lb) 04/30/2016 5:52 PM CDT Height 162.6 cm (5' 4.02 ) 04/30/2016 5:52 PM CD T Body Mass Index 33.28 04/30/2016 5:52 PM CDT documented in this encounter Functional [...] No 04/03/2014 documented as of this encounter ED Notes * Elijah English RN - 05/01/2016 12:25 AM CDT Called again with no answer * Elijah English RN - 05/01/2016 12:17 AM CDT Called again with no answer * Elijah English RN - 04/30/2016 11:52 PM CDT Called with no answer documented in this encounter Plan of Treatment Not on file documented as of this encounter Procedures Procedure Name Priority Date/Time Associated Diagnosis Comments HCG URINE QUALITATIVE - POINT OF CARE STAT 04/30/2016 7:21 PM CDT URINALYSIS REFLEX MICROSCOPIC REFLEX CULTURE STAT 04/30/2016 7:19 PM CDT CBC W AUTO DIFFERENTIAL STAT 04/30/2016 6:00 PM CDT BASIC METABOLIC PANEL (CALCIUM TOTAL) STAT 04/30/2016 6:00 PM CDT documented in this encounter Results * HCG URINE QUALITATIVE - POINT OF CARE (IP) (04/30/2016 7:21 PM CDT) HCG Qual Urine Negative Negative [facility] POCT TESTING QC Verified Yes Yes [facility] POC T TESTING Urine specimen (specimen) URINE / Unknown 04/30/2016 7:21 PM CDT Aleah Douglas MD LAB - POINT OF CARE ORDERABLES [facility] TEST[facility] [address] [phone] * URINALYSIS ROUTINE W/REFLEX TO CULTURE (04/30/2016 7:19 PM CDT) Color UA Yellow Straw, Yellow, Dark Yellow 04/30/2016 7:39 PM CDT [facility] Clarity UA Clear 04/30/2016 7:39 PM CDT [facility] Specific [place] UA 1.026 1.005 - 1.030 04/30/2016 7:39 PM CDT [facility] pH UA 5.5 5.0 - 8.0 pH 04/30/2016 7:39 PM CDT [facility] Protein UA Negative Negative 04/30/2016 7:39 PM CDT [facility] Blood UA Negative Negative 04/30/2016 7:39 PM CDT [facility] Leukocyte UA Negative Negative 04/30/2016 7:39 PM CDT [facility] Nitrite UA Negative Negative 04/30/2016 7:39 PM CDT [facility] Glucose UA Negative Negative 04/30/2016 7:39 PM CDT [facility] Ketone UA Negative Negative 04/30/2016 7:39 PM CDT [facility] Bilirubin UA Negative Negative 04/30/2016 7:39 PM CDT [facility] Urobilinogen UA 1.0 0.1 - 1.0 EU/dL 04/30/2016 7:39 PM CDT [facility] Reflex Status Culture not indicated 04/30/2016 7:39 PM CDT [facility] Urine URINE SPECIMEN OBTAINED BY CLEAN CATCH PROCEDURE / Unknown 04/30/2016 7:19 PM CDT 04/30/2016 7:33 PM CDT Aleah Douglas MD LAB - URINALYSIS ORD ERABLES Performing Organization Address [facility]/ZIP Co de Phone Number [facility] [address] [place] [address] * (ABNORMAL) BASIC METABOLIC PANEL (CALCIUM TOTAL) (04/30/2016 6:00 PM CDT) [facility] Glucose 88 74 - 106 mg/dL 04/30/2016 6:19 PM CDT [facility] Sodium 141 136 - 145 mmol/L 04/30/2016 6:19 PM CDT [facility] Potassium 3.8 3.5 - 5.1 mmol/L 04/30/2016 6:19 PM CDT [facility] Chloride 109(H) 98 - 107 mmol/L 04/30/2016 6:19 PM CDT [facility] CO2 25 22 - 31 mmol/L 04/30/2016 6:19 PM CDT [facility] Calcium 8.6 8.5 - 10.1 mg/dL 04/30/2016 6:19 PM CDT [facility] Anion Gap 7 5 - 20 mmol/L 04/30/2016 6:19 PM CDT [facility] BUN 8 7 - 21 mg/dL 04/30/2016 6:19 PM CDT [facility] Creatinine 0.64 0.50 - 1.30 mg/dL 04/30/2016 6:19 PM CDT [facility] eGFR by MDRD >60 >60 mL/min/1.7 3m2 04/30/2016 6:19 PM CDT [facility] eGFR by MDRD >60 >60 mL/min/1.7 3m2 04/30/2016 6:19 PM CDT [facility] Blood BLOOD SPECIMEN / Unknown Venipuncture / Unknown 04/30/2016 6:00 PM CDT 04/30/2016 6:04 PM CDT Aleah Douglas MD LAB - CHEMISTRY JOANNA YUNG Performing Organization Address City/[facility]/ZIP Co de Phone Number [facility] [address] [place] [address] * (ABNORMAL) CBC W AUTO DIFFERENTIAL (04/30/2016 6:00 PM CDT) [facility] WBC 7.3 4.4 - 10.7 x10E9/L 04/30/2016 6:07 PM CDT [facility] WBC Corrected x10E9/L 04/30/2016 6:07 PM CDT [facility] RBC 4.45 3.80 - 5.20 x10E12/L 04/30/2016 6:07 PM CDT [facility] Hemoglobin 11.2(L) 12.0 - 15.6 gm/dL 04/30/2016 6:07 PM CDT [facility] Hematocrit 34.3(L) 35.9 - 45.5 % 04/30/2016 6:07 PM CDT [facility] MCV 77.1(L) 80.7 - 98.3 fl 04/30/2016 6:07 PM CDT [facility] MCH 25.2(L) 26.7 - 34.0 pg 04/30/2016 6:07 PM CDT [facility] MCHC 32.7 30.8 - 35.9 gm/dL 04/30/2016 6:07 PM CDT [facility] Platelet Count 398 153 - 416 x10E9/L 04/30/2016 6:07 PM CDT [facility] RDW-CV 18.1(H) 12.1 - 14.9 % 04/30/2016 6:07 PM CDT [facility] MPV 9.1(L) 9.4 - 12.9 fl 04/30/2016 6:07 PM CDT [facility] Neutrophils % 50.9 44.0 - 73.0 % 04/30/2016 6:07 PM CDT [facility] Lymphocytes % 36.3 20.0 - 43.0 % 04/30/2016 6:07 PM CDT [facility] Monocytes % 9.0 5.0 - 13.0 % 04/30/2016 6:07 PM CDT [facility] Eosinophils % 2.7 0.0 - 6.0 % 04/30/2016 6:07 PM CDT [facility] Basophils % 0.8 0.0 - 2.0 % 04/30/2016 6:07 PM CDT [facility] Immature Granulocytes 0.3 0 - 1 % 04/30/2016 6:07 PM CDT [facility] Neutrophil Absolute 3.72 2.01 - 7.14 x10E9/L 04/30/2016 6:07 PM CDT [facility] Lymphocytes Absolute 2.65 1.07 - 3.94 x10E9/L 04/30/2016 6:07 PM CDT [facility] Monocytes Absolute 0.66 0.26 - 1.07 x10E9/L 04/30/2016 6:07 PM CDT [facility] Eosinophils Absolute 0.20 0 - 0.47 x10E9/L 04/30/2016 6:07 PM CDT [facility] Basophils Absolute 0.06 0 - 0.08 x10E9/L 04/30/2016 6:07 PM CDT [facility] Immature Granulocytes Absolute 0.02 0.00 - 0.06 x10E9/L 04/30/2016 6:07 PM CDT [facility] nRBC Auto 0 /100 WBC 04/30/2016 6:07 PM CDT [facility] Blood BLOOD SPECIMEN / Unknown Venipuncture / Unknown 04/30/2016 6:00 PM CDT 04/30/2016 6:04 PM CDT Aleah Douglas MD LAB - HEMATOLOGY ORD ERABLES [facility] Organization Address City/State/ZIP Co de Phone Number [facility] [address] [place] [address] documented in this encounter Visit Diagnoses Not on filedocumented in this encounter
--- OUTSIDE RECORDS SUMMARY | 2024-09-25 11:49 | XMS_ITS | Encounter Summary ---
Author Organization [facility] Address [address] [place] [address] Care Team Providers Care Unarmed Security Guard Name Role Phone Unavailable Primary Care Provider Unavailabl e Reason for Visit * Reason Comments Pain Urinary taking antibiotics f or UTI for 3 days and still having symptoms/no fever or back pain Encounter Details Date Type Department Care Team (Late st Contact Info) Description 10/03/2016 8:56 PM MICROSOFT DYNAMICS MANAGER ARCHITECT - 10/03/2016 11:25 PM MICROSOFT DYNAMICS MANAGER ARCHITECT Emergency ER at [facility] [address] [place] [id number] Acute cystitis without hematuria (Primary Dx); Generalized anxiety disorder Discharge Disposition: Home or Self Care Social [...] Sign Reading Time Taken Comments Blood Pressure 111/75 10/03/2016 11:24 PM MICROSOFT DYNAMICS MANAGER ARCHITECT Pulse 88 10/03/2016 11:24 PM MICROSOFT DYNAMICS MANAGER ARCHITECT Temperature 37.1 ??C (98.7 ??F) 10/03/2016 11:[address] Respiratory Rate 14 10/03/2016 11:24 PM MICROSOFT DYNAMICS MANAGER ARCHITECT Oxygen Saturation 100% 10/03/2016 11:24 PM MICROSOFT DYNAMICS MANAGER ARCHITECT Inhaled Oxygen Concentration - - Weight 85.7 kg (189 lb) 10/03/2016 7:24 PM MICROSOFT DYNAMICS MANAGER ARCHITECT Height 162.6 cm (5' 4 ) 10/03/2016 7:24 PM MICROSOFT DYNAMICS MANAGER ARCHITECT Body Mass Index 32.44 10/03/2016 7:24 PM MICROSOFT DYNAMICS MANAGER ARCHITECT documented in this encounter Functional Status Functional [...] Discharge Instructions * Discharge Instructions* Alina Sevilla, MOTOR HOME ELECTRICAL 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 Urinary Tract Infection Urinary tract infections (UTIs) can develop anywhere along your urinary tract. Your urinary tract is your body's drainage system for removing wastes and extra water. Your urinary tract includes two kidneys, two ureters, a bladder, and a urethra. Your kidneys are a pair of arriaga-shaped organs. Each kidney is about the size of your fist. They are located below your ribs, one on each side of your spine. CAUSES Infections are caused by microbes, which are microscopic organisms, including fungi, viruses, and bacteria. These organisms are so small that they can only be seen through a microscope. Bacteria are the microbes that most commonly cause UTIs. SYMPTOMS Symptoms of UTIs may vary by age and gender of the patient and by the location of the infection. Symptoms in young women typically include a frequent and intense urge to urinate and a painful, burning feeling in the bladder or urethra during urination. Older women and men are more likely to be tired, shaky, and weak and have muscle aches and abdominal pain. A fever may mean the infection is in your kidneys. Other symptoms of a kidney infection include pain in your back or sides below the ribs, nausea, and vomiting. DIAGNOSIS To diagnose a UTI, your caregiver will ask you about your symptoms. Your caregiver also will ask toprovide a urine sample. The urine sample will be tested for bacteria and white blood cells. White blood cells are made by your body to help fight infection. TREATMENT Typically, UTIs can be treated with medication. Because most UTIs are caused by a bacterial infection, they usually can be treated with the use of antibiotics. The choice of antibiotic and length of treatment depend on your symptoms and the type of bacteria causing your infection. HOME CARE INSTRUCTIONS ?? If you were prescribed antibiotics, take them exactly as your caregiver instructs you. Finish the medication even if you feel better after you have only taken some of the medication. ?? Drink enough water and fluids to keep your urine clear or pale yellow. ?? Avoid caffeine, tea, and carbonated beverages. They tend to irritate your bladder. ?? Empty your bladder often. Avoid holding urine for long periods of time. ?? Empty your bladder before and after sexual intercourse. ?? After a bowel movement, women should cleanse from front to back. Use each tissue only once. SEEK MEDICAL CARE IF: ?? You have back pain. ?? You develop a fever. ?? Your symptoms do not begin to resolve within 3 days. SEEK IMMEDIATE MEDICAL CARE IF: ?? You have severe back pain or lower abdominal pain. ?? You develop chills. ?? You have nausea or vomiting. ?? You have continued burning or discomfort with urination. MAKE SURE YOU: ?? Understand these instructions. ?? Will watch your condition. ?? Will get help right away if you are not doing well or get worse. Document Released: 06/03/2006 Document Revised: 02/22/2013 Document Reviewed: 10/01/2012 ExitCare?? Patient Information ??2015 [place]. This information is not intended to replace advice given to you by your health care provider. Make sure you discuss any questions you have with your health care provider. Panic Attacks Panic attacks are sudden, short feelings of great fear or discomfort. You may have them for no reason when you are relaxed, when you are uneasy (anxious), or when you are sleeping. HOME CARE ?? Take all your medicines as told. ?? Check with your doctor before starting new medicines. ?? Keep all doctor visits. GET HELP IF: ?? You are not able to take your medicines as told. ?? Your symptoms do not get better. ?? Your symptoms get worse. GET HELP RIGHT AWAY IF: ?? Your attacks seem different than your normal attacks. ?? You have thoughts about hurting yourself or others. ?? You take panic attack medicine and you have a side effect. MAKE SURE YOU: ?? Understand these instructions. ?? Will watch your condition. ?? Will get help right away if you are not doing well or get worse. Document Released: 09/26/2011 Document Revised: 06/14/2014 Document Reviewed: 04/07/2014 ExitCare?? Patient Information ??2015 [place]. This information is not intended to replace advice given to you by your health care provider. Make sure you discuss any questions you have with your health care provider. OSOFT DYNAMICS MANAGER ARCHITECT documented in this encounter Medications at Time of Discharge Medication Sig Dispensed Refills Start Date End Date albuterol HFA (PROVENTIL;VENTOLIN;PROA IR) 108 (90 BASE) MCG/ACT inhaler Inhale 2 Puffs by mouth every 6 hours as needed Reported on 10/23/2016 02/21/2021 ciprofloxacin (CIPRO) 500 MG tablet Take 1 Tab by mouth 2 times daily for 3 days 6 Tab 10/03/2016 10/06/2016 HYDROcodone-acetaminophe n (NORCO) 5-325 MG tablet Take 1 Tab by mouth every 4 hours as needed for Pain 10 Tab 0 05/01/2016 12/15/2016 phenazopyridine (PYRIDIUM) 200 MG tablet Take 1 Tab by mouth 3 times daily as needed 6 Tab 10/03/2016 10/13/2017 documented as of this encounter ED Notes * Michael Wang EMT-P - 10/03/2016 11:24 PM CST Patient follow up care and medications reviewed with EMTP and MD at patient bedside. Patient questions answered. Patient left the ED ambulatory to home with self care. OSOFT DYNAMICS MANAGER ARCHITECT * Alina Sevilla APRN-CNP - 10/03/2016 10:25 PM CST Provider contact with the patient: 10/03/2016 22:25 Jumana Rivers [id number] [facility] EMERGENCY DEPARTMENT History Chief Complaint Patient presents with ??? Pain Urinary taking antibiotics for UTI for 3 days and still having symptoms/no fever or back pain Chief complaint entered by someone other than this provider. HPI Comments: Jumana Rivers is a 26 y.o. female that presents to the emergency room with complaints of continued dysuria after completing antibiotic therapy yesterday. She was seen here and diagnosed with a UTI. Her symptoms lessened but did not fully resolve. She completed three doses of Cipro yesterday and the pain returned today. She denies abnormal vaginal discharge or risk of STDs. Pain is worse during urination. No fevers. No n/v/d. Patient also complains of generalized anxiety disorder. She was prescribed Zoloft a few months ago and she took two doses of it and stopped it. It did not make her feel better and she didn't like howit made her feel. She has an appointment to establish primary care in December at [facility]. No thoughts of suicide or homicide. She is eating and sleeping well. No panic attacks. She is here for further evaluation and has had no other recent illness or injury. Information is primarily obtained from the patient. PCP .No primary care provider on file. Past Medical History Diagnosis Date ??? Asthma [...] Respiratory: Negative. Cardiovascular: Negative. Gastrointestinal: Negative. Genitourinary: Positive for dysuria. Negative for flank pain, frequency, hematuria and urgency. Musculoskeletal: Negative. Skin: Negative. Neurological: Negative. Endo/Heme/Allergies: Negative. Psychiatric/Behavioral: Negative for depression, hallucinations, substance abuse and suicidal ideas. The patient is nervous/anxious. The patient does not have insomnia. All other systems reviewed and are negative. Physical Exam BP 128/87 Pulse 80 Temp 98.7 ??F Resp 14 Ht 1.626 m (5' 4 ) Wt 85.7 kg (189 lb) LMP 09/20/2016 (Exact Date) SpO2 100% ? No BMI 32.44 kg/m2 Physical Exam Constitutional: She is oriented to person, place, and time. She appears well- developed and well-nourished. No distress. Calm and pleasant. Non-toxic appearance. Clean and organized. Moves about the stretcher with ease, quickly and without hindrance. HENT: Head: Normocephalic. Nose: Nose normal. Mouth/Throat: Oropharynx is clear and moist. Eyes: Conjunctivae and EOM are normal. Pupils are equal, round, and reactive to light. Right eye exhibits no discharge. Left eye exhibits no discharge. No scleral icterus. Neck: Normal range of motion. Neck supple. No JVD present. No tracheal deviation present. Cardiovascular: Normal rate, regular rhythm, normal heart sounds and intact distal pulses. Exam reveals no gallop and no friction rub. No murmur heard. Pulmonary/Chest: Effort normal and breath sounds normal. No stridor. No respiratory distress. She has no wheezes. She has no rales. Abdominal: Soft. Normal appearance. There is no tenderness. There is no CVA tenderness. Musculoskeletal: Normal range of motion. Neurological: She is alert and oriented to person, place, and time. She exhibits normal muscle tone. Coordination normal. Skin: Skin is warm and dry. No rash noted. She is not diaphoretic. No erythema. No pallor. Psychiatric: She has a normal mood and affect. Her speech is normal and behavior is normal. Judgment and thought content normal. Cognition and memory are normal. Nursing note and vitals reviewed. Medications Current Outpatient Prescriptions Medication Sig Dispense Refill ??? ciprofloxacin (CIPRO) 500 MG tablet Take 1 Tab by mouth 2 times daily for 3 days 6 Tab 0 ??? phenazopyridine (PYRIDIUM) 200 MG tablet Take 1 Tab by mouth 3 times daily as needed 6 Tab 0 ??? albuterol HFA (PROVENTIL;VENTOLIN;PROAIR) 108 (90 BASE) MCG/ACT inhaler Inhale 2 Puffs by mouthevery 6 hours as needed Reported on 10/03/2016 ??? HYDROcodone-acetaminophen (NORCO) 5-325 MG tablet Take 1 Tab by mouth every 4 hours as needed for Pain (Patient not taking: Reported on 09/28/2016) 10 Tab 0 Procedures Procedures ECG Interpretation ECG Interpretation Lab Interpretation Oxygen Saturation Interpretation The oxygen saturation level is: 100%. The patient was on Room Air for the saturation measurement. Measurement frequency: Spot Check. Oxygen saturation interpretation is Normal. Intervention(s) used: None. Hospital Encounter on 10/03/16 URINALYSIS ROUTINE W/REFLEX TO CULTURE Result Value Ref Range Color UA Yellow Straw, Yellow, Dark Yellow Clarity UA Slt Cloudy Specific [place] UA 1.020 1.005 - 1.030 pH UA 7.5 5.0 - 8.0 pH Protein UA Negative Negative Blood UA Negative Negative Leukocyte UA Negative Negative Nitrite UA Negative Negative Glucose UA Negative Negative Ketone UA Negative Negative Bili UA Negative Negative Urobilinogen UA 0.2 0.1 - 1.0 EU/dL WBC UA Auto Reflex to manual (Abnormal) 0-2, 2-5 # /hpf RBC UA Auto Reflex to manual (Abnormal) 0-2, 2-5 # /hpf Epithelial Cell UA Auto Reflex to manual (Abnormal) 0-2, 2-5 # /hpf Bacteria UA Auto Reflex to manual (Abnormal) None seen Reflex Status Culture not indicated URINALYSIS MICROSCOPIC ONLY W/REFLEX CULTURE Result Value Ref Range RBC UA 2-5 0-2, 2-5 # /hpf WBC UA 0-2 0-2, 2-5 # /hpf Epithelial Cell UA 5-10 (Abnormal) 0-2, 2-5 # /hpf Hyaline Casts 0-2 0 - 2 # /lpf Progress Notes Initial plan: Recheck urine, initiate antibiotic therapy and pyridium for discomfort. Education completed on need to continue to take SSRI for more than two weeks for any effect to take place. If patient doesn't like the way it make her feel then I have suggested for her to take it at bedtime. Patient is agreeable to plan. 11:10 PM Rechecked pt -patient resting comfortably and feeling better. I discussed the results of diagnostic studies, my clinical impression, and the plan for further treatment with the patient. Patient agrees with plan and discharge at this time, all questions addressed. Pt is medically stable for discharge at this time. Discharge VS Blood pressure 111/75, pulse 88, temperature 98.7 ??F, resp. rate 14, height 1.626 m (5' 4 ), weight 85.7 kg (189 lb), last menstrual period 09/20/2016, SpO2 100 %, not currently . I have given the patient instructions regarding [...] patient verbalized understanding of the discharge instructions. Medical Decision Making I have reviewed the: Previous Chart, Nursing Notes, Vitals. I have interpreted the following results: Labs, Oxygen Saturation. Orders Placed This Encounter ??? URINALYSIS ROUTINE W/REFLEX TO CULTURE ??? URINALYSIS MICROSCOPIC ONLY W/REFLEX CULTURE ??? ciprofloxacin (CIPRO) tablet 500 mg ??? phenazopyridine (PYRIDIUM) tablet 200 mg ??? ciprofloxacin (CIPRO) 500 MG tablet ??? phenazopyridine (PYRIDIUM) 200 MG tablet Clinical Impression Final diagnoses: Acute cystitis without hematuria (Primary) Generalized anxiety disorder Discharge plan: Continue Cipro doses, next dose due tomorrow. Continue Pyridium. Increase water intake. Restart Zoloft and take before bed. Establish primary care as soon as possible. New Medications: Discharge Medication List as of 10/03/2016 11:13 PM START taking these medications Details ciprofloxacin (CIPRO) 500 MG tablet Disp-6 Tab, R-0, Take 1 Tab by mouth 2 times daily for 3 days, Print phenazopyridine (PYRIDIUM) 200 MG tablet Disp-6 Tab, R-0, Take 1 Tab by mouth 3 times daily as needed, Print I have advised the patient to follow-up with: [facility] [address] [place] [id number] Establish primary care as soon as possible. Disposition: Discharged Alina Sevilla ([place]) [employer] WORKER No scribe was used in the preparation of this note - JR OSOFT DYNAMICS MANAGER ARCHITECT * Paras Angulo, RAZIA - 10/03/2016 9:21 PM CST States 3 days ago was started on antibiotic for UTI and states still having pain with urination. States symptoms have not improved. Denies any pain unless she is urinating. States has slight white vaginal discharge. OSOFT DYNAMICS MANAGER ARCHITECT documented in this encounter Plan of Treatment Not on file documented as of this encounter Procedures Procedure Name Priority Date/Time Associated Diagnosis Comments URINE MICROSCOPIC ONLY REFLEX TO CULTURE STAT 10/03/2016 6:58 PM MICROSOFT DYNAMICS MANAGER ARCHITECT URINALYSIS REFLEX MICROSCOPIC REFLEX CULTURE STAT 10/03/2016 6:58 PM MICROSOFT DYNAMICS MANAGER ARCHITECT documented in this encounter Results * (ABNORMAL) URINALYSIS MICROSCOPIC ONLY W/REFLEX CULTURE (10/03/2016 6:58 PM MICROSOFT DYNAMICS MANAGER ARCHITECT) RBC UA 2-5 0-2, 2-5 # /hpf 10/03/2016 7:44 PM MICROSOFT DYNAMICS MANAGER ARCHITECT [facility] WBC UA 0-2 0-2, 2-5 # /hpf 10/03/2016 7:44 PM MICROSOFT DYNAMICS MANAGER ARCHITECT [facility] Epithelial Cell UA 5-10(A) 0-2, 2-5 # /hpf 10/03/2016 7:44 PM MICROSOFT DYNAMICS MANAGER ARCHITECT [facility] Hyaline Casts 0-2 0 - 2 # /lpf 10/03/2016 7:44 PM MICROSOFT DYNAMICS MANAGER ARCHITECT [facility] Urine URINE SPECIMEN OBTAINED BY CLEAN CATCH PROCEDURE / Unknown Collection / Unknown 10/03/2016 6:58 PM MICROSOFT DYNAMICS MANAGER ARCHITECT 10/03/2016 7:05 PM MICROSOFT DYNAMICS MANAGER ARCHITECT Jono Parra DO LAB - URINALYSI S ORDERABLES [facility] [address] [place] [address] * (ABNORMAL) URINALYSIS ROUTINE W/REFLEX TO CULTURE (10/03/2016 6:58 PM [facility]) Color UA Yellow Straw, Yellow, Dark Yellow 10/03/2016 7:27 PM [facility] Clarity UA Slt Cloudy 10/03/2016 7:27 PM [facility] Specific [place] UA 1.020 1.005 - 1.030 10/03/2016 7:27 PM [facility] pH UA 7.5 5.0 - 8.0 pH 10/03/2016 7:27 PM [facility] Protein UA Negative Negative 10/03/2016 7:27 PM [facility] Blood UA Negative Negative 10/03/2016 7:27 PM [facility] Leukocyte UA Negative Negative 10/03/2016 7:27 PM [facility] Nitrite UA Negative Negative 10/03/2016 7:27 PM [facility] Glucose UA Negative Negative 10/03/2016 7:27 PM [facility] Ketone UA Negative Negative 10/03/2016 7:27 PM [facility] Bilirubin UA Negative Negative 10/03/2016 7:27 PM [facility] Urobilinogen UA 0.2 0.1 - 1.0 EU/dL 10/03/2016 7:27 PM [facility] WBC UA Auto Reflex to manual(A) 0-2, 2-5 # /hpf 10/03/2016 7:27 PM [facility] RBC UA Auto Reflex to manual(A) 0-2, 2-5 # /hpf 10/03/2016 7:27 PM [facility] Epithelial Cell UA Auto Reflex to manual(A) 0-2, 2-5 # /hpf 10/03/2016 7:27 PM [facility] Bacteria UA Auto Reflex to manual(A) None seen 10/03/2016 7:27 PM [facility] Reflex Status Culture not indicated 10/03/2016 7:27 PM [facility] Urine URINE SPECIMEN OBTAINED BY CLEAN CATCH PROCEDURE / Unknown Collection / Unknown 10/03/2016 6:58 PM MICROSOFT DYNAMICS MANAGER ARCHITECT 10/03/2016 7:05 PM MICROSOFT DYNAMICS MANAGER ARCHITECT Jono Hazel Fidel DO LAB - URINALYSI S ORDERABLES [facility] [address] [place] [address] documented in this encounter Visit Diagnoses Diagnosis Acute cystitis without hematuria- Primary Acute cystitis Generalized anxiety disorder documented in this encounter Administered Medications Inactive Administered Medications - up to 3 most recent administrations Medication Order MAR Action Action Date Dose Rate Site ciprofloxacin (CIPRO) tablet 500 mg 500 mg, Oral, NOW, 1 dose, On Thu10/03/16 at 2230, Take with or without food, do not take with ramon, yogurt or calcium-fortified juice. $ Given 10/03/2016 10:36 PM MICROSOFT DYNAMICS MANAGER ARCHITECT 500 mg phenazopyridine (PYRIDIUM) tablet 200 mg 200 mg, Oral, NOW, 1 dose, On Thu10/03/16 at 2230 $ Given 10/03/2016 10:36 PM MICROSOFT DYNAMICS MANAGER ARCHITECT 200 mg documented in this encounter Active and Recently Administered Medications Times are shown in MICROSOFT DYNAMICS MANAGER ARCHITECT. Scheduled Medication Order 10/01/2016 10/02/2016 10/03/2016 ciprofloxacin (CIPRO) tablet 500 mg (COMPLETED) 500 mg, Oral, NOW, 1 dose, On Thu10/03/16 at 2230, Take with or without food, do not take with ramon, yogurt or calcium-fortified juice. 2236 ($ Given - Prov ider: Paras Angulo RN) phenazopyridine (PYRIDIUM) tablet 200 mg (COMPLETED) 200 mg, Oral, NOW, 1 dose, On Thu10/03/16 at 2230 2236 ($ Given - Prov ider: Paras Angulo RN) documented in this encounter
--- OUTSIDE RECORDS SUMMARY | 2024-09-25 11:49 | XMS_ITS | Encounter Summary ---
Author Organization [facility] Address [address] [place] [address] Care Team Providers Care Resident Services Director Name Role Phone [facility] Primary Care Provider Unavailable Reason for Visit * Reason Comments Pain Abdominal c/o crampy abd pain x 3 days. recent tx for uti. c/o hematuria x 5 days. Chills, headache, nasal congestion. Encounter Details Date Type Department Care Team (Late st Contact Info) Description 10/10/2016 9:06 AM DATABASE MARKETING ANALYST - 10/10/2016 12:26 PM DATABASE MARKETING ANALYST Emergency ER at [facility] [address] [place] [id number] Valente Perez MD [address] [place] [id number] Hematuria; Upper respiratory tract infection, unspecified type Discharge Disposition: Home or Self Care [...] Sign Reading Time Taken Comments Blood Pressure 118/73 10/10/2016 11:45 AM DATABASE MARKETING ANALYST Pulse 92 10/10/2016 12:05 PM DATABASE MARKETING ANALYST Temperature 36.8 ??C (98.3 ??F) 10/10/2016 8:42 AM CS T Respiratory Rate 24 10/10/2016 12:05 PM DATABASE MARKETING ANALYST Oxygen Saturation 99% 10/10/2016 12:05 PM DATABASE MARKETING ANALYST Inhaled Oxygen Concentration - - Weight 87.5 kg (193 lb) 10/10/2016 8:42 AM DATABASE MARKETING ANALYST Height 162.6 cm (5' 4 ) 10/10/2016 8:42 AM DATABASE MARKETING ANALYST Body Mass Index 33.13 10/10/2016 8:42 AM DATABASE MARKETING ANALYST documented in this encounter Functional Status Functional [...] this encounter Discharge Instructions * Discharge Instructions* Valente Perez MD - 10/10/2016 12:04 PM DATABASE MARKETING ANALYST Images from the original note were not included. Upper Respiratory Infection, Adult An upper respiratory infection (URI) is also known as the common cold. It is often caused by a typeof germ (virus). Colds are easily spread (contagious). You can pass it to others by kissing, coughing, sneezing, or drinking out of the same glass. Usually, you get better in 1 or 2 weeks. HOME CARE ?? Only take medicine as told by your doctor. ?? Use a warm mist humidifier or breathe in steam from a hot shower. ?? Drink enough water and fluids to keep your pee (urine) clear or pale yellow. ?? Get plenty of rest. ?? Return to work when your temperature is back to normal or as told by your doctor. You may use a face mask and wash your hands to stop your cold from spreading. GET HELP RIGHT AWAY IF: ?? After the first few days, you feel you are getting worse. ?? You have questions about your medicine. ?? You have chills, shortness of breath, or brown or red spit (mucus). ?? You have yellow or brown snot (nasal discharge) or pain in the face, especially when you bend forward. ?? You have a fever, puffy (swollen) neck, pain when you swallow, or white spots in the back of your throat. ?? You have a bad headache, ear pain, sinus pain, or chest pain. ?? You have a high-pitched whistling sound when you breathe in and out (wheezing). ?? You have a lasting cough or cough up blood. ?? You have sore muscles or a stiff neck. MAKE SURE YOU: ?? Understand these instructions. ?? Will watch your condition. ?? Will get help right away if you are not doing well or get worse. Document Released: 02/09/2009 Document Revised: 11/15/2012 Document Reviewed: 11/29/2014 ExitCare?? Patient Information ??2015 [employer]. This information is not intended to replace [...] Document Reviewed: 04/24/2014 ExitCare?? Patient Information ??2015 [employer]. This information is not intended to replace advice given to you by your health care provider. Make sure you discuss any questions you have with your health care provider. BASE MARKETING ANALYST documented in this encounter Medications at Time of Discharge Medication Sig Dispensed Refills Start Date End Date albuterol HFA (PROVENTIL;VENTOLIN;PROA IR) 108 (90 BASE) MCG/ACT inhaler Inhale 2 Puffs by mouth every 6 hours as needed Reported on 10/23/2016 02/21/2021 benzonatate (TESSALON) 100 MG capsule Take 1 Cap by mouth 3 times daily as needed for Cough 30 Cap 10/10/2016 10/13/2017 HYDROcodone-acetaminophe n (NORCO) 5-325 MG tablet Take 1 Tab by mouth every 4 hours as needed for Pain 10 Tab 0 05/01/2016 12/15/2016 phenazopyridine (PYRIDIUM) 200 MG tablet Take 1 Tab by mouth 3 times daily as needed 6 Tab 10/03/2016 10/13/2017 documented as of this encounter ED Notes * Madyson Small RN - 10/10/2016 12:25 PM CST Patient discharging home. Follow up care reviewed. Prescriptions reviewed. Patient verbalized understanding. BASE MARKETING ANALYST * Madyson Small RN - 10/10/2016 11:44 AM CST patient is resting comfortably. Awaiting for CT scan Results. Will cont to monitor..Madyson Small RN 10/10/2016 11:45 AM BASE MARKETING ANALYST * Madyson Small RN - 10/10/2016 11:00 AM CST Patient to CT - scan. BASE MARKETING ANALYST * Madyson Small RN - 10/10/2016 10:05 AM CST Patient medicated per NOV. BASE MARKETING ANALYST * Madyson Small RN - 10/10/2016 9:51 AM CST Patient present to ED c/o abdominal pain and hematuria. Patient states I was here last week, theydiagnosed my wth UTI, I finished the medication, But now I have cramps and blood in the urine. I also, have flu like symptoms, cough, chills and fever at home. Patient is A&O x 4. ambulatory 09/20/16. No distress noticed. Will cont to monitor..Madyson Small RN 10/10/2016 9:53 AM BASE MARKETING ANALYST * Valente Perez MD - 10/10/2016 9:19 AM CST Provider contact with the patient: 10/10/2016 09:19 Jumana Rivers [id number] [facility] EMERGENCY DEPARTMENT History Chief Complaint Patient presents with ??? Pain Abdominal c/o crampy abd pain x 3 days. recent tx for uti. c/o hematuria x 5 days. Chills, headache, nasal congestion. HPI Comments: Jumana Rivers, a 26 y.o. female, presents for cramping abdominal pain that began three days ago. An associated symptom includes hematuria. These symptoms have worsened since onset. She denies diarrhea, fever. The patient was evaluated last week for dysuria. She was diagnosed with a UTI and was sent home with Cipro, which she took. The Cipro did not improve her symptoms, so she returned to the ER, where she was given another dose of Cipro, as well as pyridium. This improved her symptoms. Two days later though, she developed hematuria. A day after (3 days ago), she developed cramping abdominal pain. The patient also has a cold and cough. Her LNMP was 09/20/16. Past Medical History Diagnosis Date ??? Asthma [...] Constitutional: Negative for chills and fever. HENT: Positive for congestion. Eyes: Negative for blurred vision, double vision and redness. Respiratory: Positive for cough. Negative for shortness of breath. Cardiovascular: Negative for chest pain and palpitations. Gastrointestinal: Positive for abdominal pain. Negative for diarrhea, nausea and vomiting. Genitourinary: Positive for hematuria. Negative for frequency and urgency. Neurological: Negative for tingling, sensory change and headaches. All other systems reviewed and are negative. Physical Exam BP 123/84 Pulse 100 Temp 98.3 ??F Resp 16 Ht 1.626 m (5' 4 ) Wt 87.5 kg (193 lb) SpO2 100% BMI 33.13 kg/m2 Physical Exam Constitutional: She is oriented to person, place, and time. Vital signs are normal. She appears well-developed and well-nourished. HENT: Head: Normocephalic and atraumatic. Right Ear: External ear normal. Left Ear: External ear normal. Nose: Nose normal. Mouth/Throat: Oropharynx is clear and moist. Eyes: Conjunctivae and EOM are normal. Pupils are equal, round, and reactive to light. Neck: Trachea normal, normal range of motion and full passive range of motion without pain. Neck supple. Cardiovascular: Normal rate, regular rhythm, normal heart sounds and normal pulses. Pulmonary/Chest: Effort normal and breath sounds normal. Abdominal: Soft. Normal appearance and bowel sounds are normal. There is tenderness (mild) in the right upper quadrant, epigastric area and left upper quadrant. Musculoskeletal: Normal range of motion. Neurological: She is alert and oriented to person, place, and time. GCS eye subscore is 4. GCS verbal subscore is 5. GCS motor subscore is 6. Skin: Skin is warm and dry. Nursing note and vitals reviewed. Medications Current Outpatient Prescriptions Medication Sig Dispense Refill ??? benzonatate (TESSALON) 100 MG capsule Take 1 Cap by mouth 3 times daily as needed for Cough 30 Cap 0 ??? albuterol HFA (PROVENTIL;VENTOLIN;PROAIR) 108 (90 BASE) MCG/ACT inhaler Inhale 2 Puffs by mouthevery 6 hours as needed Reported on 10/03/2016 ??? phenazopyridine (PYRIDIUM) 200 MG tablet Take 1 Tab by mouth 3 times daily as needed (Patient not taking: Reported on 10/10/2016) 6 Tab 0 ??? HYDROcodone-acetaminophen (NORCO) 5-325 [...] Normal. Intervention(s) used: None. Hospital Encounter on 10/10/16 CBC W AUTO DIFFERENTIAL Result Value Ref Range WBC 6.3 4.4 - 10.7 x10E9/L WBC Corrected x10E9/L RBC 4.45 3.80 - 5.20 x10E12/L Hgb 11.5 (L) 12.0 - 15.6 gm/dL HCT 35.2 (L) 35.9 - 45.5 % MCV 79.1 (L) 80.7 - 98.3 fl MCH 25.8 (L) 26.7 - 34.0 pg MCHC 32.7 30.8 - 35.9 gm/dL Plt Ct 347 153 - 416 x10E9/L RDW-CV 17.3 (H) 12.1 - 14.9 % MPV 9.1 (L) 9.4 - 12.9 fl Neutro 56.9 44.0 - 73.0 % Lymph 25.7 20.0 - 43.0 % Foard 11.5 5.0 - 13.0 % Eos 4.6 0.0 - 6.0 % Baso 0.8 0.0 - 2.0 % Immature Grans 0.5 0 - 1 % Neutro Abs 3.57 2.01 - 7.14 x10E9/L Lymph Abs 1.61 1.07 - 3.94 x10E9/L Foard Abs 0.72 0.26 - 1.07 x10E9/L Eosin Abs 0.29 0 - 0.47 x10E9/L Baso Abs 0.05 0 - 0.08 x10E9/L Immature Grans (Abs) 0.03 0.00 - 0.06 x10E9/L NRBC Auto 0 /100 WBC COMPREHENSIVE METABOLIC PANEL Result Value Ref Range Glucose 85 74 - 106 mg/dL Sodium 138 136 - 145 mmol/L Potassium 3.3 (L) 3.5 - 5.1 mmol/L Chloride 105 98 - 107 mmol/L CO2 29 22 - 31 mmol/L Calcium 8.7 8.5 - 10.1 mg/dL Anion Gap 4 (L) 8 - 16 mmol/L BUN 9 7 - 21 mg/dL Creatinine 0.82 0.50 - 1.30 mg/dL Alk Phos 70 38 - 126 U/L ALT/SGPT 15 13 - 61 U/L AST/SGOT 9 5 - 40 U/L Protein Total 7.5 6.4 - 8.2 gm/dL Albumin 3.6 3.4 - 5.0 gm/dL Bili Total 0.3 0.2 - 1.0 mg/dL eGFR MDRD >60 >60 mL/min/1.73m2 eGFR MDRD AFR AMR >60 >60 mL/min/1.73m2 URINALYSIS ROUTINE W/REFLEX TO CULTURE Result Value Ref Range Color UA Dulce (Abnormal) Straw, Yellow, Dark Yellow Clarity UA Cloudy Specific [place] UA >=1.030 1.005 - 1.030 pH UA 6.5 5.0 - 8.0 pH Protein UA 2+ (Abnormal) Negative Blood UA 3+ (Abnormal) Negative Leukocyte UA Trace (Abnormal) Negative Nitrite UA Negative Negative Glucose UA Negative Negative Ketone UA Trace (Abnormal) Negative Bili UA Negative Negative Urobilinogen UA 0.2 0.1 - 1.0 EU/dL Reflex Status Culture to follow URINALYSIS MICROSCOPIC ONLY W/REFLEX CULTURE Result Value Ref Range RBC UA >100 (Abnormal) 0-2, 2-5 # /hpf WBC UA 2-5 0-2, 2-5 # /hpf Bacteria UA None Seen None Seen Epithelial Cell UA 2-5 0-2, 2-5 # /hpf Mucus Trace HCG URINE QUALITATIVE - POINT OF CARE (IP) Result Value Ref Range HCG Qual Urine Negative Negative QC Verified Yes Yes CT RENAL STONE PROTOCOL (NO IV AND NO ORAL CONTRAST) Final Result CT abdomen pelvis. HISTORY: Abdominal pain, UTI, [...] fluid collection. Horseshoe kidney with nonobstructing calculi. Progress Notes 9:25 AM: Urine culture from 09/28/16 was negative. Labs ordered. Pt will be given Reglan. Informed pt is plan to possibly order CT. Pt agreeable. 10:51 AM: I re-evaluated the patient???s medical condition, comfort, and provided a care update. She's feeling all right. Pt has blood in urine. Awaiting CT. 12:00 PM: I re-evaluated the patient???s medical condition, comfort, and provided a care update. Ptinformed of plan of discharge. Pt agreeable. 12:05 PM: I had a formal disposition interview with the patient to discuss the ED visit and disposition plan. Results of diagnostic studies, my clinical impression, and recommendations were discussedwith the patient, who agrees with the plan and discharge at this time. The patient was given instructions regarding the diagnosis, expectations, follow up, and return precautions. The patient was informed that emergent conditions may arise and to return to the ER for new, worsening, or any persistent conditions. The patient was informed regarding the importance of following up with a Primary Care Physician-(or the referral physician listed below) as instructed. The patient verbalized understanding of the discharge instructions. Blood pressure 118/73, pulse 92, temperature 98.3 ??F, resp. rate 24, height 1.626 m (5' 4 ), weight 87.5 kg (193 lb), last menstrual period 09/20/2016, SpO2 99 %. ED Course ED Course There is no data filed. Medical Decision Making I have reviewed the: Previous Chart, Nursing Notes, Vitals. I have interpreted the following results: Labs, CT Scans and Oxygen Saturation. Orders Placed This Encounter ??? CULTURE URINE ??? CT RENAL STONE PROTOCOL (NO IV AND NO ORAL CONTRAST) ??? CBC W AUTO DIFFERENTIAL ??? COMPREHENSIVE METABOLIC PANEL ??? URINALYSIS ROUTINE W/REFLEX TO CULTURE ??? URINALYSIS MICROSCOPIC ONLY W/REFLEX CULTURE ??? HCG URINE QUALITATIVE - POINT OF CARE (IP) ??? DISCONTD: 0.9% NaCl injection 1-10 mL ??? metoclopramide (REGLAN) tablet 10 mg ??? benzonatate (TESSALON) 100 MG capsule Clinical Impression Final diagnoses: Hematuria Upper respiratory tract infection, unspecified type New Medications: Discharge Medication List as of 10/10/2016 12:04 PM START taking these medications Details benzonatate (TESSALON) 100 MG capsule Disp-30 Cap, R-0, Take 1 Cap by mouth 3 times daily as neededfor Cough, Print I have advised the patient to follow-up with: [facility] [address] [facility] [id number] Schedule an appointment as soon as possible for a visit As needed Disposition: Discharged Blood pressure 118/73, pulse 92, temperature 98.3 ??F, resp. rate 24, height 1.626 m (5' 4 ), weight 87.5 kg (193 lb), last menstrual period 09/20/2016, SpO2 99 %. By signing my name below, I, Pierre Monzon, attest that this documentation has been prepared underthe direction and in the presence of Provider Name and Title. Electronically Signed: Tevin Davis. 10/10/2016 2:17 PM I, Dr. Perez, personally performed the services described in this documentation. All medical record entries made by the scribe were at my direction and in my presence. I have reviewed the chart and discharge instructions and agree that the record reflects my personal performance and is accurate and complete. Ana, 10/10/2016 2:17 PM BASE MARKETING ANALYST documented in this encounter Plan of Treatment Not on file documented as of this encounter Procedures Procedure Name Priority Date/Time Associated Diagnosis Comments CT ABDOMEN PELVIS WO CONTRAST STAT 10/10/2016 11:05 AM DATABASE MARKETING ANALYST Hematuria HCG URINE QUALITATIVE - POINT OF CARE STAT 10/10/2016 10:38 AM DATABASE MARKETING ANALYST URINE MICROSCOPIC ONLY REFLEX TO CULTURE STAT 10/10/2016 10:05 AM DATABASE MARKETING ANALYST URINALYSIS REFLEX MICROSCOPIC REFLEX CULTURE STAT 10/10/2016 10:05 AM DATABASE MARKETING ANALYST CULTURE URINE STAT 10/10/2016 10:05 AM DATABASE MARKETING ANALYST CBC W AUTO DIFFERENTIAL STAT 10/10/2016 8:49 AM DATABASE MARKETING ANALYST COMPREHENSIVE METABOLIC PANEL STAT 10/10/2016 8:49 AM DATABASE MARKETING ANALYST documented in this encounter Results * CT RENAL STONE PROTOCOL (NO IV AND NO ORAL CONTRAST) (10/10/2016 11:05 AM DATABASE MARKETING ANALYST) Anatomical Region Laterality Modality Abdomen, Pelvis Computed Tomogra phy 10/10/2016 11:1 4 AM DATABASE MARKETING ANALYST Impressions 10/10/2016 11:20 AM DATABASE MARKETING ANALYST IUD in uterine cavity. Negative for mass or fluid collection. Horseshoe kidney with nonobstructing calculi. Narrative 10/10/2016 11:[address]ING [address]LY[address] abdomen pelvis. HISTORY: Abdominal pain, UTI, [...] calculi. Valente Perez MD CT ORDERABLES * HCG URINE QUALITATIVE - POINT OF CARE (IP) (10/10/2016 10:38 AM DATABASE MARKETING ANALYST) HCG Qual Urine Negative Negative [facility] POCT TESTING QC Verified Yes Yes [facility] POC T TESTING Urine URINE / Unknown 10/10/2016 1 0:38 AM DATABASE MARKETING ANALYST Valente Perez MD LAB - POINT OF CARE ORDERABLES Performing Organization Address [facility]/ZIP Co de Phone Number [facility] POCT TESTING [address] [phone] * CULTURE URINE (10/10/2016 10:05 AM DATABASE MARKETING ANALYST) Culture <10,000 CFU/mL urogenital marco CHRYSTAL 10/11/2016 2:18 PM DATABASE MARKETING ANALYST [facility] MICROBIOLOGY Urine URINE SPECIMEN OBTAINED BY CLEAN CATCH PROCEDURE / Unknown Collection / Unknown 10/10/2016 10:05 AM DATABASE MARKETING ANALYST 10/10/2016 10:08 AM DATABASE MARKETING ANALYST Valente Perez MD LAB - MICROBIOLOGY O RDERABLES [facility] MICRO[facility]OLOG[facility] [address] [phone] * (ABNORMAL) URINALYSIS MICROSCOPIC ONLY W/REFLEX CULTURE (10/10/2016 10:05 AM DATABASE MARKETING ANALYST) RBC UA >100(A) 0-2, 2-5 # /hpf 10/10/2016 10:41 AM DATABASE MARKETING ANALYST [facility] WBC UA 2-5 0-2, 2-5 # /hpf 10/10/2016 10:41 AM DATABASE MARKETING ANALYST [facility] Bacteria UA None Seen None Seen 10/10/2016 10:41 AM [facility] Epithelial Cell UA 2-5 0-2, 2-5 # /hpf 10/10/2016 10:41 AM [facility] Mucus UA Trace 10/10/2016 10:41 AM [facility] Urine URINE SPECIMEN OBTAINED BY CLEAN CATCH PROCEDURE / Unknown Collection / Unknown 10/10/2016 10:05 AM [facility] 10/10/2016 10:08 AM [facility] Valente Perez MD LAB - URINALYSIS ORD ERABLES [facility] [address] [place] [address] * (ABNORMAL) URINALYSIS ROUTINE W/REFLEX TO CULTURE (10/10/2016 10:05 AM [facility]) Color UA Dulce(A) Straw, Yellow, Dark Yellow 10/10/2016 10:27 AM [facility] Clarity UA Cloudy 10/10/2016 10:27 AM [facility] Specific [place] UA >=1.030 1.005 - 1.030 10/10/2016 10:27 AM [facility] pH UA 6.5 5.0 - 8.0 pH 10/10/2016 10:27 AM [facility] Protein UA 2+(A) Negative 10/10/2016 10:27 AM [facility] Blood UA 3+(A) Negative 10/10/2016 10:27 AM [facility] Leukocyte UA Trace(A) Negative 10/10/2016 10:27 AM [facility] Nitrite UA Negative Negative 10/10/2016 10:27 AM [facility] Glucose UA Negative Negative 10/10/2016 10:27 AM [facility] Ketone UA Trace(A) Negative 10/10/2016 10:27 AM [facility] Bilirubin UA Negative Negative 10/10/2016 10:27 AM [facility] Urobilinogen UA 0.2 0.1 - 1.0 EU/dL 10/10/2016 10:27 AM [facility] Reflex Status Culture to follow 10/10/2016 10:27 AM [facility] Urine URINE SPECIMEN OBTAINED BY CLEAN CATCH PROCEDURE / Unknown Collection / Unknown 10/10/2016 10:05 AM [facility] 10/10/2016 10:08 AM [facility] Valente Perez MD LAB - URINALYSIS ORD ERABLES [facility] [address] [place] [address] * (ABNORMAL) COMPREHENSIVE METABOLIC PANEL (10/10/2016 8:49 AM [facility]) [facility] Glucose 85 74 - 106 mg/dL 10/10/2016 9:10 AM [facility] Sodium 138 136 - 145 mmol/L 10/10/2016 9:10 AM [facility] Potassium 3.3(L) 3.5 - 5.1 mmol/L 10/10/2016 9:10 AM [facility] Chloride 105 98 - 107 mmol/L 10/10/2016 9:10 AM [facility] CO2 29 22 - 31 mmol/L 10/10/2016 9:10 AM [facility] Calcium 8.7 8.5 - 10.1 mg/dL 10/10/2016 9:10 AM [facility] Anion Gap 4(L) 8 - 16 mmol/L 10/10/2016 9:10 AM [facility] BUN 9 7 - 21 mg/dL 10/10/2016 9:10 AM [facility] Creatinine 0.82 0.50 - 1.30 mg/dL 10/10/2016 9:10 AM [facility] Alkaline Phosphatase 70 38 - 126 U/L 10/10/2016 9:10 AM [facility] ALT 15 13 - 61 U/L 10/10/2016 9:10 AM [facility] AST 9 5 - 40 U/L 10/10/2016 9:10 AM [facility] Protein Total 7.5 6.4 - 8.2 gm/dL 10/10/2016 9:10 AM [facility] Albumin 3.6 3.4 - 5.0 gm/dL 10/10/2016 9:10 AM [facility] Bilirubin Total 0.3 0.2 - 1.0 mg/dL 10/10/2016 9:10 AM [facility] eGFR by MDRD >60 >60 mL/min/1.7 3m2 10/10/2016 9:10 AM [facility] eGFR by MDRD >60 >60 mL/min/1.7 3m2 10/10/2016 9:10 AM [facility] Blood BLOOD SPECIMEN / Unknown Venipuncture / Unknown 10/10/2016 8:49 AM DATABASE MARKETING ANALYST 10/10/2016 8:53 AM DATABASE MARKETING ANALYST Valente Perez MD LAB - CHEMISTRY JOANNA YUNG [facility] Organization Address City/State/ZIP Co de Phone Number [facility] [address] [place] [address] * (ABNORMAL) CBC W AUTO DIFFERENTIAL (10/10/2016 8:49 AM DATABASE MARKETING ANALYST) WBC 6.3 4.4 - 10.7 x10E9/L 10/10/2016 8:55 AM [facility] WBC Corrected x10E9/L 10/10/2016 8:55 AM [facility] RBC 4.45 3.80 - 5.20 x10E12/L 10/10/2016 8:55 AM [facility] Hemoglobin 11.5(L) 12.0 - 15.6 gm/dL 10/10/2016 8:55 AM [facility] Hematocrit 35.2(L) 35.9 - 45.5 % 10/10/2016 8:55 AM [facility] MCV 79.1(L) 80.7 - 98.3 fl 10/10/2016 8:55 AM [facility] MCH 25.8(L) 26.7 - 34.0 pg 10/10/2016 8:55 AM [facility] MCHC 32.7 30.8 - 35.9 gm/dL 10/10/2016 8:55 AM [facility] Platelet Count 347 153 - 416 x10E9/L 10/10/2016 8:55 AM [facility] RDW-CV 17.3(H) 12.1 - 14.9 % 10/10/2016 8:55 AM [facility] MPV 9.1(L) 9.4 - 12.9 fl 10/10/2016 8:55 AM [facility] Neutrophils % 56.9 44.0 - 73.0 % 10/10/2016 8:55 AM [facility] Lymphocytes % 25.7 20.0 - 43.0 % 10/10/2016 8:55 AM [facility] Monocytes % 11.5 5.0 - 13.0 % 10/10/2016 8:55 AM [facility] Eosinophils % 4.6 0.0 - 6.0 % 10/10/2016 8:55 AM [facility] Basophils % 0.8 0.0 - 2.0 % 10/10/2016 8:55 AM [facility] Immature Granulocytes 0.5 0 - 1 % 10/10/2016 8:55 AM [facility] Neutrophil Absolute 3.57 2.01 - 7.14 x10E9/L 10/10/2016 8:55 AM [facility] Lymphocytes Absolute 1.61 1.07 - 3.94 x10E9/L 10/10/2016 8:55 AM [facility] Monocytes Absolute 0.72 0.26 - 1.07 x10E9/L 10/10/2016 8:55 AM [facility] Eosinophils Absolute 0.29 0 - 0.47 x10E9/L 10/10/2016 8:55 AM [facility] Basophils Absolute 0.05 0 - 0.08 x10E9/L 10/10/2016 8:55 AM [facility] Immature Granulocytes Absolute 0.03 0.00 - 0.06 x10E9/L 10/10/2016 8:55 AM [facility] nRBC Auto 0 /100 WBC 10/10/2016 8:55 AM [facility] Blood BLOOD SPECIMEN / Unknown Venipuncture / Unknown 10/10/2016 8:49 AM DATABASE MARKETING ANALYST 10/10/2016 8:53 AM [facility] Valente Perez MD LAB - HEMATOLOGY ORD ERABLES Performing Organization Address City/State/[facility] Co de Phone Number [facility] [address] [place] [address] documented in this encounter Visit Diagnoses Diagnosis Hematuria Upper respiratory tract infection, unspecified type documented in this encounter Administered Medications Inactive Administered Medications - up to 3 most recent administrations Medication Order MAR Action Action Date Dose Rate Site 0.9% NaCl injection 1-10 mL 1-10 mL, Intracatheter, PRN, Other, Starting on Thu10/10/16 at 0841, Until Thu10/10/16 at 1326 metoclopramide (REGLAN) tablet 10 mg 10 mg, Oral, NOW, 1 dose, On Thu10/10/16 at 1000 $ Given 10/10/2016 10:05 AM DATABASE MARKETING ANALYST 10 mg documented in this encounter Active and Recently Administered Medications Times are shown in DATABASE MARKETING ANALYST. Scheduled Medication Order 10/08/2016 10/09/2016 10/10/2016 metoclopramide (REGLAN) tablet 10 mg (COMPLETED) 10 mg, Oral, NOW, 1 dose, On Thu10/10/16 at 1000 1005 ($ Given - Prov ider: Madyson Small RN) PRN Medication Order 10/08/2016 10/09/2016 10/10/2016 0.9% NaCl injection 1-10 mL 1-10 mL, Intracatheter, PRN, Other, Starting on Thu10/10/16 at 0841, Until Thu10/10/16 at 1326 documented in this encounter Care Teams Resident Services Director Relationship Specialty Start Date End Date Clinicp, [facility] PCP - General 10/10/16 10/12/17 documented as of this encounter
--- OUTSIDE RECORDS SUMMARY | 2024-09-25 11:49 | XMS_ITS | Encounter Summary ---
Author Organization [facility] Address [address] [place] [address] Care Team Providers Care Corporate Attorney Name Role Phone Unavailable Primary Care Provider Unavailabl e Reason for Visit * Reason Comments Pain Urinary Burning with urinati on since this am Pain Head Reports h/o migraine s. C/O headache and lightheaded. Encounter Details Date Type Department Care Team (Late st Contact Info) Description 09/28/2016 8:21 PM ASSEMBLER FILTERS - 09/28/2016 9:43 PM ASSEMBLER FILTERS Emergency ER at [facility] [address] [place] [id number] [place] [id number] [place] [address] Acute cystitis without hematuria (Primary Dx) Discharge Disposition: Home or Self [...] Sign Reading Time Taken Comments Blood Pressure 111/68 09/28/2016 8:43 PM ASSEMBLER FILTERS Pulse 96 09/28/2016 8:50 PM ASSEMBLER FILTERS Temperature 36.6 ??C (97.9 ??F) 09/28/2016 8:07 PM CS T Respiratory Rate 13 09/28/2016 8:50 PM ASSEMBLER FILTERS Oxygen Saturation 100% 09/28/2016 8:50 PM ASSEMBLER FILTERS Inhaled Oxygen Concentration - - Weight 85.7 kg (189 lb) 09/28/2016 8:41 PM ASSEMBLER FILTERS Height 162.6 cm (5' 4 ) 09/28/2016 8:41 PM ASSEMBLER FILTERS Body Mass Index 32.44 09/28/2016 8:41 PM ASSEMBLER FILTERS documented in this encounter Functional Status Functional [...] this encounter Discharge Instructions * Discharge Instructions* Ayush Sutherland RN - 09/28/2016 9:43 PM ASSEMBLER FILTERS Images from the original note were not included. Urinary Tract Infection A urinary tract infection (UTI) can occur any place along the urinary tract. The tract includes thekidneys, ureters, bladder, and urethra. A type of germ called bacteria often causes a UTI. UTIs areoften helped with antibiotic medicine. HOME CARE ?? If given, take antibiotics as told by your doctor. Finish them even if you start to feel better. ?? Drink enough fluids to keep your pee (urine) clear or pale yellow. ?? Avoid tea, drinks with caffeine, and bubbly (carbonated) drinks. ?? Pee often. Avoid holding your pee in for a long time. ?? Pee before and after having sex (intercourse). ?? Wipe from front to back after you poop (bowel movement) if you are a woman. Use each tissue onlyonce. GET HELP RIGHT AWAY IF: ?? You have back pain. ?? You have lower belly (abdominal) pain. ?? You have chills. ?? You feel sick to your stomach (nauseous). ?? You throw up (vomit). ?? Your burning or discomfort with peeing does not go away. ?? You have a fever. ?? Your symptoms are not better in 3 days. MAKE SURE YOU: ?? Understand these instructions. ?? Will watch your condition. ?? Will get help right away if you are not doing well or get worse. Document Released: 02/09/2009 Document Revised: 05/18/2013 Document Reviewed: 03/24/2013 ExitCare?? Patient Information ??2014 Sand 9. This information is not intended to replace advice given to you by your health care provider. Make sure you discuss any questions you have with your health care provider. MBLER FILTERS documented in this encounter Medications at Time of Discharge Medication Sig Dispensed Refills Start Date End Date albuterol HFA (PROVENTIL;VENTOLIN;PROA IR) 108 (90 BASE) MCG/ACT inhaler Inhale 2 Puffs by mouth every 6 hours as needed Reported on 10/23/2016 02/21/2021 ciprofloxacin (CIPRO) 500 MG tablet Take 1 Tab by mouth 2 times daily for 3 days 6 Tab 09/28/2016 10/01/2016 HYDROcodone-acetaminophe n (NORCO) 5-325 MG tablet Take 1 Tab by mouth every 4 hours as needed for Pain 10 Tab 0 05/01/2016 12/15/2016 oxybutynin (DITROPAN) 5 MG tablet Take 1 Tab by mouth 3 times daily for 5 doses 5 Tab 09/28/2016 09/30/2016 documented as of this encounter ED Notes * Ayush Sutherland RN - 09/28/2016 9:42 PM CST Discharge instructions, medications, and follow up care reviewed with patient. Pt verbalized understanding. Pt ambulated to ED exit with steady gait in no apparent distress. MBLER FILTERS * Ayush Sutherland RN - 09/28/2016 8:45 PM CST Pt presents to ED with complaint of burning while urinating x1 day and pt also reports a headache with lightheadedness and nausea x4 days. Pt denies any blood in urine. Pt reports a history of UTIs and kidney stones. Pt denies and diarrhea, fever, or chills. MBLER FILTERS * Jeanette Russell MD - 09/28/2016 8:41 PM CST Provider contact with the patient: 09/28/2016 20:41 Jumana Rivers [id number] [facility] EMERGENCY DEPARTMENT History Chief Complaint Patient presents with ??? Pain Urinary Burning with urination since this am ??? Pain Head Reports h/o migraines. C/O headache and lightheaded. HPI Comments: Jumana Rivers is a 26 y.o. female presenting to the ED with a PMHx of asthma, migraines, STD's, and anemia with a chief complaint of dysuria since this morning. Associated symptoms include nausea, STYLES, and back pain (chronic and unchanged from baseline). She denies hematuria, fever, and vaginal discharge. Her symptoms have been constant, not changed, and nothing makes them better or worse. She has had similar symptoms before when she was diagnosed with a UTI. Patient history provided by the patient. Past Medical History Diagnosis Date ??? Asthma [...] Systems Constitutional: Negative for chills and fever. Eyes: Negative for blurred vision and discharge. Respiratory: Negative for cough. Cardiovascular: Negative for chest pain. Gastrointestinal: Positive for nausea. Negative for abdominal pain and vomiting. Genitourinary: Positive for dysuria. Negative for frequency and hematuria. Musculoskeletal: Positive for back pain (chronic). Skin: Negative for rash. Neurological: Positive for headaches. Negative for focal weakness. All other systems reviewed and are negative. Physical Exam BP 120/73 Pulse 94 Temp 97.9 ??F Resp 16 SpO2 100% Physical Exam Constitutional: She is oriented to person, place, and time. No distress. HENT: Head: Normocephalic. Eyes: Pupils are equal, round, and reactive to light. No scleral icterus. Neck: Neck supple. Cardiovascular: Normal rate and regular rhythm. Exam reveals no gallop. No murmur heard. Pulmonary/Chest: Effort normal. She has no wheezes. She has no rales. She exhibits no tenderness. Abdominal: Soft. She exhibits no distension and no mass. There is no tenderness. There is no rebound. Musculoskeletal: She exhibits no edema. Neurological: She is alert and oriented to person, place, and time. Skin: Skin is warm and dry. She is not diaphoretic. Psychiatric: She has a normal mood and affect. Vitals reviewed. Medications Current Outpatient Prescriptions Medication Sig [...] Normal. Intervention(s) used: None. Hospital Encounter on 09/28/16 URINALYSIS ROUTINE W/REFLEX TO CULTURE Result Value Ref Range Color UA Yellow Straw, Yellow, Dark Yellow Clarity UA Clear Specific Homer UA 1.028 1.005 - 1.030 pH UA 6.5 5.0 - 8.0 pH Protein UA Trace (Abnormal) Negative Blood UA Negative Negative Leukocyte UA 1+ (Abnormal) Negative Nitrite UA Negative Negative Glucose UA Negative Negative Ketone UA Negative Negative Bili UA Negative Negative Urobilinogen UA 1.0 0.1 - 1.0 EU/dL WBC UA Auto 5-10 (Abnormal) 0-2, 2-5 # /hpf RBC UA Auto 5-10 (Abnormal) 0-2, 2-5 # /hpf Epithelial Cell UA Auto 2-5 0-2, 2-5 # /hpf Bacteria UA Auto 1+ (Abnormal) None seen Reflex Status Culture to follow HCG URINE QUALITATIVE - POINT OF CARE (IP) Result Value Ref Range HCG Qual Urine Negative Negative QC Verified Yes Yes No orders to display Progress Notes 8:42 PM Initial Plan: Will order U/A. Patient will be given Tylenol. Patient agreeable with plan. ED Course ED Course There is no data filed. Medical Decision Making I have reviewed the: Previous Chart, Nursing Notes, Vitals. I have interpreted the following results: Oxygen Saturation. Orders Placed This Encounter ??? CULTURE URINE ??? URINALYSIS ROUTINE W/REFLEX TO CULTURE ??? HCG URINE QUALITATIVE - POINT OF CARE (IP) ??? acetaminophen (TYLENOL) tablet 650 mg 9:15 PM Rechecked pt - I had a formal disposition interview with the patient/family to discuss the ED visit and disposition plan. The patient is agreeable with discharge. At this present time, a medical screening [...] the importance of following up with her doctor--No primary care provider on file.--(or the referral physician) as instructed. The patient verbalized understanding of the discharge instructions. Diagnosis: Encounter Diagnosis Name Primary? Acute cystitis without hematuria Yes New Medications: New Prescriptions CIPROFLOXACIN (CIPRO) 500 MG TABLET Take 1 Tab by mouth 2 times daily for 3 days OXYBUTYNIN (DITROPAN) 5 MG TABLET Take 1 Tab by mouth 3 times daily for 5 doses I have advised the patient to follow-up with: [facility] [address] [facility] [id number] Schedule an appointment as soon as possible for a visit in 4 days If not better Disposition: Discharged By signing my name below, I, Girish Comer, attest that this documentation has been prepared under the direction and in the presence of the provider stated below. Electronically Signed: Tevin Harry. 09/28/2016 9:03 PM I, Dr. Russell, personally performed the services described in this documentation. All medical record entries made by the scribe were at my direction and in my presence. I have reviewed the chart and discharge instructions and agree that the record reflects my personal performance and is accurate and complete. Dr. Russell, 09/28/2016 9:03 PM MBLER FILTERS documented in this encounter Plan of Treatment Not on file documented as of this encounter Procedures Procedure Name Priority Date/Time Associated Diagnosis Comments URINALYSIS REFLEX MICROSCOPIC REFLEX CULTURE STAT 09/28/2016 8:15 PM ASSEMBLER FILTERS HCG URINE QUALITATIVE - POINT OF CARE STAT 09/28/2016 8:15 PM ASSEMBLER FILTERS CULTURE URINE STAT 09/28/2016 8:15 PM ASSEMBLER FILTERS documented in this encounter Results * CULTURE URINE (09/28/2016 8:15 PM ASSEMBLER FILTERS) Culture 10,000-50,000 CFU/mL urogenital marco CHRYSTAL 09/30/2016 10:38 AM ASSEMBLER FILTERS [facility] MICROBIOLOGY Urine URINE SPECIMEN OBTAINED BY CLEAN CATCH PROCEDURE / Unknown 09/28/2016 8:15 PM ASSEMBLER FILTERS 09/28/2016 8:19 PM ASSEMBLER FILTERS Jeanette Russell MD LAB - MICROBIOLOGY O RDERABLES [facility] MICROBIOLOGY [address] [place] [address], [facility] [phone] * HCG URINE QUALITATIVE - POINT OF CARE (IP) (09/28/2016 8:15 PM ASSEMBLER FILTERS) HCG Qual Urine Negative Negative [facility] POCT TESTING QC Verified Yes Yes [facility] POC T TESTING Urine URINE / Unknown 09/28/2016 8 :15 PM ASSEMBLER FILTERS Jeanette Russell MD LAB - POINT OF CARE ORDERABLES [facility] POCT TESTING [address] [phone] * (ABNORMAL) URINALYSIS ROUTINE W/REFLEX TO CULTURE (09/28/2016 8:15 PM ASSEMBLER FILTERS) Color UA Yellow Straw, Yellow, Dark Yellow 09/28/2016 8:24 PM ASSEMBLER FILTERS [facility] Clarity UA Clear 09/28/2016 8:24 PM ASSEMBLER FILTERS [facility] Specific Homer UA 1.028 1.005 - 1.030 09/28/2016 8:24 PM ASSEMBLER FILTERS [facility] pH UA 6.5 5.0 - 8.0 pH 09/28/2016 8:24 PM ASSEMBLER FILTERS [facility] Protein UA Trace(A) Negative 09/28/2016 8:24 PM ASSEMBLER FILTERS [facility] Blood UA Negative Negative 09/28/2016 8:24 PM ASSEMBLER FILTERS [facility] Leukocyte UA 1+(A) Negative 09/28/2016 8:24 PM ASSEMBLER FILTERS [facility] Nitrite UA Negative Negative 09/28/2016 8:24 PM ASSEMBLER FILTERS [facility] Glucose UA Negative Negative 09/28/2016 8:24 PM ASSEMBLER FILTERS [facility] Ketone UA Negative Negative 09/28/2016 8:24 PM ASSEMBLER FILTERS [facility] Bilirubin UA Negative Negative 09/28/2016 8:24 PM ASSEMBLER FILTERS [facility] Urobilinogen UA 1.0 0.1 - 1.0 EU/dL 09/28/2016 8:24 PM ASSEMBLER FILTERS [facility] WBC UA Auto 5-10(A) 0-2, 2-5 # /hpf 09/28/2016 8:24 PM ASSEMBLER FILTERS [facility] RBC UA Auto 5-10(A) 0-2, 2-5 # /hpf 09/28/2016 8:24 PM ASSEMBLER FILTERS [facility] Epithelial Cell UA Auto 2-5 0-2, 2-5 # /hpf 09/28/2016 8:24 PM ASSEMBLER FILTERS [facility] Bacteria UA Auto 1+(A) None seen 09/28/19 8:24 PM ASSEMBLER FILTERS [facility] Reflex Status Culture to follow 09/28/2016 8:24 PM ASSEMBLER FILTERS [facility] Urine URINE SPECIMEN OBTAINED BY CLEAN CATCH PROCEDURE / Unknown 09/28/2016 8:15 PM ASSEMBLER FILTERS 09/28/2016 8:19 PM ASSEMBLER FILTERS Jeanette Russell MD LAB - URINALYSIS ORD ERABLES [facility] [address] [place] [address] documented in this encounter Visit Diagnoses Diagnosis Acute cystitis without hematuria- Primary Acute cystitis documented in this encounter Administered Medications Inactive Administered Medications - up to 3 most recent administrations Medication Order MAR Action Action Date Dose Rate Site acetaminophen (TYLENOL) tablet 650 mg 650 mg, Oral, EVERY 4 HOURS PRN, Fever, Administer for temperature greater than 100.3 F or pain, Starting on 09/28/16 at 2004, Until 09/28/16 at 2243 documented in this encounter Active and Recently Administered Medications Times are shown in ASSEMBLER FILTERS. PRN Medication Order 09/26/2016 09/27/2016 09/28/2016 acetaminophen (TYLENOL) tablet 650 mg 650 mg, Oral, EVERY 4 HOURS PRN, Fever, Administer for temperature greater than 100.3 F or pain, Starting on 09/28/16 at 2004, Until 09/28/16 at 2243 documented in this encounter
--- OUTSIDE RECORDS SUMMARY | 2024-09-25 11:49 | XMS_ITS | Encounter Summary ---
Author Organization [facility] Address [address] [place] [address] Care Team Providers Care [employer] Teacher Name Role Phone Clinicpc, [facility] Primary Care Provider Unavailable Reason for Visit * Reason Comments Pain Flank Encounter Details Date Type Department Care Team (Late st Contact Info) Description 10/23/2016 3:04 PM TENT FINISHER - 10/23/2016 5:48 PM TENT FINISHER Emergency ER at [facility] [address] [place] [address] [phone] Urinary tract infection, site unspecified; Horseshoe kidney with renal calculus; Left flank pain Discharge Disposition: Home or Self Care [...] Sign Reading Time Taken Comments Blood Pressure 129/81 10/23/2016 4:32 PM TENT FINISHER Pulse 66 10/23/2016 4:32 PM TENT FINISHER Temperature 36.8 ??C (98.2 ??F) 10/23/2016 11:[address] Respiratory Rate 11 10/23/2016 4:32 PM TENT FINISHER Oxygen Saturation 97% 10/23/2016 4:32 PM TENT FINISHER Inhaled Oxygen Concentration - - Weight 88.5 kg (195 lb) 10/23/2016 11:59 AM TENT FINISHER Height 162.6 cm (5' 4 ) 10/23/2016 11:59 AM TENT FINISHER Body Mass Index 33.47 10/23/2016 11:59 AM TENT FINISHER documented in this encounter Functional Status Functional [...] this encounter Discharge Instructions * Discharge Instructions* Marty Cole PA-C - 10/23/2016 5:34 PM TENT FINISHER Flank Pain Flank pain refers to pain [...] clear or pale yellow. ?? Only take covz-veo-vrtvfzs or prescription medicines as directed by your [...] fever or persistent symptoms for more than 2-3 days. ?? You have a fever and your symptoms suddenly get worse. MAKE SURE YOU: ?? Understand these instructions. ?? Will watch your condition. ?? Will get help right away if you are not doing well or get worse. Document Released: 10/15/2006 Document Revised: 05/18/2013 Document Reviewed: 04/07/2013 ExitCare?? Patient Information ??2015 [employer]. This information is not intended to replace advice given to you by your health care provider. Make sure you discuss any questions you have with your health care provider. Dietary Guidelines to Help Prevent Kidney Stones Your risk of kidney stones can be decreased by adjusting the foods you eat. The most important thing you can do is drink enough fluid. You should drink enough fluid to keep your urine clear or pale yellow. The following guidelines provide specific information for the type of kidney stone you have had. GUIDELINES ACCORDING TO TYPE OF KIDNEY STONE Calcium Oxalate Kidney Stones ?? Reduce the amount of salt you eat. Foods that have a lot of salt cause your body to release excess calcium into your urine. The excess calcium can combine with a substance called oxalate to form kidney stones. ?? Reduce the amount of animal protein you eat if the amount you eat is excessive. Animal protein causes your body to release excess calcium into your urine. Ask your dietitian how much protein from animal sources you should be eating. ?? Avoid foods that are high in oxalates. If you take vitamins, they should have less than 500 mg of vitamin C. Your body turns vitamin C into oxalates. You do not need to avoid fruits and vegetableshigh in vitamin C. Calcium Phosphate Kidney Stones ?? Reduce the amount of salt you eat to help prevent the release of excess calcium into your urine. ?? Reduce the amount of animal protein you eat if the amount you eat is excessive. Animal protein causes your body to release excess calcium into your urine. Ask your dietitian how much protein from animal sources you should be eating. ?? Get enough calcium from food or take a calcium supplement (ask your dietitian for recommendations). Food sources of calcium that do not increase your risk of kidney stones include: ?? Broccoli. ?? Dairy products, such as cheese and yogurt. ?? Pudding. Uric Acid Kidney Stones ?? Do not have more than 6 oz of animal protein per day. FOOD SOURCES Animal Protein Sources ?? Meat (all types). ?? Poultry. ?? Eggs. ?? Fish, seafood. Foods High in Salt ?? Salt seasonings. ?? Soy sauce. ?? Teriyaki sauce. ?? Cured and processed meats. ?? Salted crackers and snack foods. ?? Fast food. ?? Canned soups and most canned foods. Foods High in Oxalates ?? Grains: ?? Amaranth. ?? Barley. ?? Grits. ?? Wheat germ. ?? Bran. ?? Buckwheat flour. ?? All bran cereals. ?? Pretzels. ?? Whole wheat bread. ?? Vegetables: ?? Beans (wax). ?? Beets and beet greens. ?? [place] greens. ?? Eggplant. ?? Escarole. ?? Leeks. ?? Okra. ?? Parsley. ?? Rutabagas. ?? Spinach. ?? Citizen Of [place] chard. ?? Tomato paste. ?? Fried potatoes. ?? Sweet potatoes. ?? Fruits: ?? Red currants. ?? Figs. ?? Kiwi. ?? Rhubarb. ?? Meat and Other Protein Sources: ?? Beans (dried). ?? Soy burgers and other soybean products. ?? Miso. ?? Nuts (peanuts, almonds, pecans, cashews, hazelnuts). ?? Nut butters. ?? Sesame seeds and tahini (paste made of sesame seeds). ?? Poppy seeds. ?? Beverages: ?? Chocolate drink mixes. ?? Soy milk. ?? Instant iced tea. ?? Juices made from high-oxalate fruits or vegetables. ?? Other: ?? Carob. ?? Chocolate. ?? Fruitcake. ?? Marmalades. Document Released: 12/19/2011 Document Revised: 08/29/2014 Document Reviewed: 07/21/2014 ExitCare?? Patient Information ??2014 [employer]. This information is not intended to replace advice given to you by your health care provider. Make sure you discuss any questions you have with your health care provider. FINISHER documented in this encounter Medications at Time [...] for Pain 10 Tab 0 05/01/2016 12/15/2016 ketorolac (TORADOL) 10 MG tablet Take 1 Tab by mouth every 6 hours as needed for Pain 20 Tab 10/23/2016 10/13/2017 phenazopyridine (PYRIDIUM) 200 MG tablet Take 1 Tab by mouth 3 times daily as needed 6 Tab 10/03/2016 10/13/2017 sulfamethoxazole-trimeth oprim (BACTRIM DS; SEPTRA DS) 800-160 MG tablet Take 1 Tab by mouth 2 times daily for 5 days 10 Tab 10/23/2016 10/28/2016 documented as of this encounter ED Notes * Bal Alexandre RN - 10/23/2016 5:12 PM CST Pt reports pain relief, will notify Federico TEJEDA FINISHER * Bal Alexandre RN - 10/23/2016 4:13 PM CST Medication given per MAR, pt resting with family at bedside, will continue to monitor FINISHER * Marty Cole PA-C - 10/23/2016 3:49 PM CST Provider contact with the patient: 10/23/2016 15:49 Jumana Rivers [id number] [facility] EMERGENCY [facility]PARTMENT History Chief Complaint Patient presents with ??? Pain Flank HPI Comments: Jumaan Rivers is a 26 y.o. female presenting to the ED with a chief complaint of constant moderate sharp left flank pain starting this morning. Pain is worsened by movement. Associated sx include nausea, urinary frequency. Patient has not taken any medication for the current episode. Patient denies diarrhea, vomiting. Patient was in the ED 2 weeks ago due to hematuria. She wastold that one of her kidneys was shaped like a horseshoe predisposing her to kidney stones. She says there were some small stones noted on the CT taken at the time. PMHx of kidney stones (multiple times). Patient saw a specialist for her kidney stones before but was reportedly told there was nothi ng to do since the stones had passed. Patient does not take daily medication. LMP: today [facility] Past Medical History Diagnosis Date ??? Asthma [...] History Narrative Allergies Allergen Reactions ??? Augmentin Marli Review of Systems Review of Systems Constitutional: Negative. Negative for chills and fever. HENT: Negative. Eyes: Negative. Respiratory: Negative. Negative for shortness of breath. Cardiovascular: Negative. Negative for chest pain. Gastrointestinal: Positive for nausea. Negative for abdominal pain, diarrhea and vomiting. Genitourinary: Positive for flank pain and frequency. Negative for dysuria. Skin: Negative. Neurological: Negative. Negative for headaches. Psychiatric/Behavioral: Negative. All other systems reviewed and are negative. Physical Exam BP 97/68 Pulse 88 Temp 98.2 ??F Resp 27 Ht 1.626 m (5' 4 ) Wt 88.5 kg (195 lb) LMP 09/21/2016 SpO2 100% BMI 33.47 kg/m2 Physical Exam Constitutional: She is oriented [...] discharge. Left eye exhibits no discharge. Neck: Normal range of motion. Neck supple. Cardiovascular: Normal rate, regular rhythm and intact distal pulses. Pulmonary/Chest: Effort normal and breath sounds normal. No respiratory distress. Abdominal: Soft. Bowel sounds are normal. She exhibits no distension. There is no tenderness. Thereis no CVA tenderness. Musculoskeletal: Normal range of motion. She exhibits no tenderness. Left sided lumbosacral paraspinal tenderness Lymphadenopathy: She has no cervical adenopathy. Neurological: She is alert and oriented to person, place, and time. Skin: Skin is warm and dry. No rash noted. She is not diaphoretic. Psychiatric: She has a normal mood and affect. Her behavior is normal. Nursing note and vitals reviewed. Medications Current Outpatient Prescriptions Medication Sig Dispense Refill ??? sulfamethoxazole-trimethoprim (BACTRIM DS; SEPTRA DS) 800-160 MG tablet Take 1 Tab by mouth 2 times daily for 5 days 10 Tab 0 ??? ketorolac (TORADOL) 10 MG tablet [...] hours as needed Reported on 10/23/2016 ??? HYDROcodone-acetaminophen (NORCO) 5-325 MG tablet Take 1 Tab by mouth every 4 hours as needed for Pain (Patient not taking: Reported on 09/28/2016) 10 Tab 0 Procedures Procedures ECG Interpretation ECG Interpretation Lab Interpretation Oxygen Saturation Interpretation The oxygen saturation level is: 100%. The patient was on Room Air for the saturation measurement. Oxygen saturation interpretation is Normal. Hospital Encounter on 10/23/16 CBC W AUTO DIFFERENTIAL Result Value Ref Range WBC 7.9 4.4 - 10.7 x10E9/L WBC Corrected x10E9/L RBC 4.58 3.80 - 5.20 x10E12/L Hgb 11.8 (L) 12.0 - 15.6 gm/dL HCT 35.9 35.9 - 45.5 % MCV 78.4 (L) 80.7 - 98.3 fl MCH 25.8 (L) 26.7 - 34.0 pg MCHC 32.9 30.8 - 35.9 gm/dL Plt Ct 361 153 - 416 x10E9/L RDW-CV 16.9 (H) 12.1 - 14.9 % MPV 9.3 (L) 9.4 - 12.9 fl Neutro 57.6 44.0 - 73.0 % Lymph 28.5 20.0 - 43.0 % [place] 11.2 5.0 - 13.0 % Eos 1.8 0.0 - 6.0 % Baso 0.6 0.0 - 2.0 % Immature Grans 0.3 0 - 1 % Neutro Abs 4.57 2.01 - 7.14 x10E9/L Lymph Abs 2.26 1.07 - 3.94 x10E9/L [place] Abs 0.89 0.26 - 1.07 x10E9/L Eosin Abs 0.14 0 - 0.47 x10E9/L Baso Abs 0.05 0 - 0.08 x10E9/L Immature Grans (Abs) 0.02 0.00 - 0.06 x10E9/L NRBC Auto 0 /100 WBC COMPREHENSIVE METABOLIC PANEL Result Value Ref Range Glucose 83 74 - 106 mg/dL Sodium 141 136 - 145 mmol/L Potassium 3.5 3.5 - 5.1 mmol/L Chloride 107 98 - 107 mmol/L CO2 28 22 - 31 mmol/L Calcium 8.7 8.5 - 10.1 mg/dL Anion Gap 6 (L) 8 - 16 mmol/L BUN 11 7 - 21 mg/dL Creatinine 0.80 0.50 - 1.30 mg/dL Alk Phos 63 38 - 126 U/L ALT/SGPT 17 13 - 61 U/L AST/SGOT 11 5 - 40 U/L Protein Total 7.7 6.4 - 8.2 gm/dL Albumin 3.8 3.4 - 5.0 gm/dL Bili Total 0.3 0.2 - 1.0 mg/dL eGFR MDRD >60 >60 mL/min/1.73m2 eGFR MDRD AFR AMR >60 >60 mL/min/1.73m2 URINALYSIS ROUTINE W/REFLEX TO CULTURE Result Value Ref Range Color UA Yellow Straw, Yellow, Dark Yellow Clarity UA Cloudy Specific [place] UA >1.030 (H) 1.005 - 1.030 pH UA 5.5 5.0 - 8.0 pH Protein UA Trace (Abnormal) Negative Blood UA 2+ (Abnormal) Negative Leukocyte UA 1+ (Abnormal) Negative Nitrite UA Negative Negative Glucose UA Negative Negative Ketone UA 2+ (Abnormal) Negative Bili UA Negative Negative Urobilinogen UA 0.2 0.1 - 1.0 EU/dL WBC UA Auto 20-50 (Abnormal) 0-2, 2-5 # /hpf RBC UA Auto 2-5 0-2, 2-5 # /hpf Bacteria UA Auto 1+ (Abnormal) None seen Hyaline Casts UA Auto Reflex to manual (Abnormal) 0 - 2 #/lpf Reflex Status Culture to follow URINALYSIS MICROSCOPIC ONLY W/REFLEX CULTURE Result Value Ref Range Epithelial Cell UA 5-10 (Abnormal) 0-2, 2-5 # /hpf Hyaline Casts 0-2 0 - 2 # /lpf HCG URINE QUALITATIVE - POINT OF CARE (IP) Result Value Ref Range HCG Qual Urine Negative Negative QC Verified Yes Yes No orders to display CT abdomen pelvis 10/10/2016 ?? HISTORY: Abdominal pain, UTI, hematuria, history of kidney stones. ?? Images are provided from above the diaphragm to the pubic symphysis without intravenous contrast a prior exam of 03/18/2016 is available for comparison. There is a minimal infiltrate or area of atelectasis in the medial aspect the right middle lobe, otherwise lungs are clear. There is no pleural or pericardial effusion. ?? No discrete abnormality seen in the liver spleen or pancreas. There are no calcified gallstones. Nonobstructing calculi are seen bilaterally in a horseshoe kidney. There is no retroperitoneal adenopathy or ascites or free intraperitoneal air. The appendix appears normal. ?? An IUD projects in the uterus. Urinary bladder is unremarkable. ?? IMPRESSION IUD in uterine cavity. Negative for mass or fluid collection. ?? Horseshoe kidney with nonobstructing calculi. Progress Notes 3:49 PM Initial encounter: Will order labs. Patient is agreeable with plan. 5:24 PM I re-evaluated the patient???s medical condition, comfort, and provided a care update. Patient feeling better and agrees with plan of discharge. 5:27 PM Rechecked pt -patient resting comfortably and [...] the discharge instructions. ED Course ED Course There is no data filed. Medical Decision Making I have reviewed the: Previous Chart, Nursing Notes, Vitals. I have interpreted the following results: Labs, Oxygen Saturation. Orders Placed This Encounter ??? CULTURE URINE ??? CBC W AUTO DIFFERENTIAL ??? COMPREHENSIVE METABOLIC PANEL ??? URINALYSIS ROUTINE W/REFLEX TO CULTURE ??? HCG BETA BLOOD QUANTITATIVE ??? URINALYSIS MICROSCOPIC ONLY W/REFLEX CULTURE ??? HCG URINE QUALITATIVE - POINT OF CARE (IP) ??? 0.9% NaCl injection 1-10 mL ??? ketorolac (TORADOL) injection 30 mg ??? 0.9% NaCl IV Bolus ??? ondansetron (ZOFRAN) injection 4 mg ??? sulfamethoxazole-trimethoprim (BACTRIM DS; SEPTRA DS) 800-160 MG tablet ??? ketorolac (TORADOL) 10 MG tablet Clinical Impression Final diagnoses: Urinary tract infection, site unspecified Horseshoe kidney with renal calculus Left flank pain Discharge Vitals Blood pressure 129/81, pulse 66, temperature 98.2 ??F, resp. rate 11, height 1.626 m (5' 4 ), weight 88.5 kg (195 lb), last menstrual period 09/21/2016, SpO2 97 %. New Medications: New Prescriptions KETOROLAC (TORADOL) 10 MG TABLET Take 1 Tab by mouth every 6 hours as needed for Pain SULFAMETHOXAZOLE-TRIMETHOPRIM (BACTRIM DS; SEPTRA DS) 800-160 MG TABLET Take 1 Tab by mouth 2 timesdaily for 5 days I have advised the patient to follow-up with: Tarik [facility]au[id number] [facility] [id number] Schedule an appointment as soon as possible for a visit For Re-evaluation [facility] [address] [place] [phone] Call As needed Disposition: Discharged By signing my name below, I, Donald Hughes, attest that this documentation has been prepared under the direction and in the presence of Federico Cole PA-C. Electronically Signed: Tevin Scherer. 10/23/2016 5:34 PM IFederico PA-C, personally performed the services described in this documentation. All medical record entries made by the scribe were at my direction and in my presence. I have reviewed the chart and discharge instructions and agree that the record reflects my personal performance and is accurate and complete. Federico Cole PA-C, 10/23/2016 5:34 PM FINISHER * Bal Alexandre RN - 10/23/2016 3:19 PM CST Per pt, pain with urination and blood in urine one week ago, pt was seen and told she had small kidney stones. Since then pain has become constant in left and right lower back that radiates to the left abd. Pt is restless and guarding her abd at this time, will continue to monitor FINISHER documented in this encounter Plan of Treatment Not on file documented as of this encounter Procedures Procedure Name Priority Date/Time Associated Diagnosis Comments URINE MICROSCOPIC ONLY REFLEX TO CULTURE STAT 10/23/2016 4:07 PM TENT FINISHER URINALYSIS REFLEX MICROSCOPIC REFLEX CULTURE STAT 10/23/2016 4:07 PM TENT FINISHER CULTURE URINE STAT 10/23/2016 4:07 PM TENT FINISHER HCG URINE QUALITATIVE - POINT OF CARE Routine 10/23/2016 3:57 PM TENT FINISHER CBC W AUTO DIFFERENTIAL STAT 10/23/2016 12:04 PM TENT FINISHER COMPREHENSIVE METABOLIC PANEL STAT 10/23/2016 12:04 PM TENT FINISHER documented in this encounter Results * CULTURE URINE (10/23/2016 4:07 PM TENT FINISHER) Culture <10,000 CFU/mL urogenital marco CHRYSTAL 10/25/2016 5:24 AM TENT FINISHER [facility] Urine URINE SPECIMEN OBTAINED BY CLEAN CATCH PROCEDURE / Unknown Collection / Unknown 10/23/2016 4:07 PM TENT FINISHER 10/23/2016 4:15 PM TENT FINISHER eRg Butler DO LAB - MICROBIOLOGY O RDERABLES [facility] [address] [place] [id number], [facility] [phone] * (ABNORMAL) URINALYSIS MICROSCOPIC ONLY W/REFLEX CULTURE (10/23/2016 4:07 PM TENT FINISHER) Epithelial Cell UA 5-10(A) 0-2, 2-5 # /hpf 10/23/2016 4:39 PM TENT FINISHER [facility] Hyaline Casts 0-2 0 - 2 # /lpf 10/23/2016 4:39 PM TENT FINISHER [facility] Urine URINE SPECIMEN OBTAINED BY CLEAN CATCH PROCEDURE / Unknown Collection / Unknown 10/23/2016 4:07 PM TENT FINISHER 10/23/2016 4:15 PM TENT FINISHER Reg Butler DO LAB - URINALYSIS ORD ERABLES [facility] [address] [place] [address] * (ABNORMAL) URINALYSIS ROUTINE W/REFLEX TO CULTURE (10/23/2016 4:07 PM TENT FINISHER) Color UA Yellow Straw, Yellow, Dark Yellow 10/23/2016 4:25 PM TENT FINISHER [facility] Clarity UA Cloudy 10/23/2016 4:25 PM TENT FINISHER [facility] Specific [place] UA >1.030(H) 1.005 - 1.030 10/23/2016 4:[address] [facility] pH UA 5.5 5.0 - 8.0 pH 10/23/2016 4:25 PM TENT FINISHER [facility] Protein UA Trace(A) Negative 10/23/2016 4:25 PM TENT FINISHER [facility] Blood UA 2+(A) Negative 10/23/2016 4:25 PM TENT FINISHER [facility] Leukocyte UA 1+(A) Negative 10/23/2016 4:25 PM TENT FINISHER [facility] Nitrite UA Negative Negative 10/23/2016 4:25 PM TENT FINISHER [facility] Glucose UA Negative Negative 10/23/2016 4:25 PM TENT FINISHER [facility] Ketone UA 2+(A) Negative 10/23/2016 4:25 PM TENT FINISHER [facility] Bilirubin UA Negative Negative 10/23/2016 4:25 PM TENT FINISHER [facility] Urobilinogen UA 0.2 0.1 - 1.0 EU/dL 10/23/2016 4:25 PM TENT FINISHER [facility] WBC UA Auto 20-50(A) 0-2, 2-5 # /hpf 10/23/2016 4:25 PM TENT FINISHER [facility] RBC UA Auto 2-5 0-2, 2-5 # /hpf 10/23/2016 4:25 PM TENT FINISHER [facility] Bacteria UA Auto 1+(A) None seen 10/23/19 17 4:25 PM TENT FINISHER [facility] Hyaline Casts UA Auto Reflex to manual(A) 0 - 2 #/lpf 10/23/2016 4:25 PM TENT FINISHER [facility] Reflex Status Culture to follow 10/23/2016 4:25 PM TENT FINISHER [facility] Urine URINE SPECIMEN OBTAINED BY CLEAN CATCH PROCEDURE / Unknown Collection / Unknown 10/23/2016 4:07 PM TENT FINISHER 10/23/2016 4:15 PM TENT FINISHER Reg Butler DO LAB - URINALYSIS ORD ERABLES Performing Organization Address [facility] Co de Phone Number [facility] [address] [place] [address] * HCG URINE QUALITATIVE - POINT OF CARE (IP) (10/23/2016 3:57 PM TENT FINISHER) HCG Qual Urine Negative Negative [facility] POCT TESTING QC Verified Yes Yes [facility] POC T TESTING Urine URINE / Unknown 10/23/2016 3 :57 PM TENT FINISHER Marty Cole PA-C LAB - POINT OF CARE ORDERABLES Performing Organization Address [facility] de Phone Number [facility] POCT TESTING [address] [place] [address] * (ABNORMAL) COMPREHENSIVE METABOLIC PANEL (10/23/2016 12:04 PM TENT FINISHER) Glucose 83 74 - 106 mg/dL 10/23/2016 12:27 PM TENT FINISHER [facility] Sodium 141 136 - 145 mmol/L 10/23/2016 12:27 PM TENT FINISHER [facility] Potassium 3.5 3.5 - 5.1 mmol/L 10/23/2016 12:27 PM TENT FINISHER [facility] Chloride 107 98 - 107 mmol/L 10/23/2016 12:[address] [facility] CO2 28 22 - 31 mmol/L 10/23/2016 12:[address] [facility] Calcium 8.7 8.5 - 10.1 mg/dL 10/23/2016 12:[address] [facility] Anion Gap 6(L) 8 - 16 mmol/L 10/23/2016 12:[address] [facility] BUN 11 7 - 21 mg/dL 10/23/2016 12:[address] [facility] Creatinine 0.80 0.50 - 1.30 mg/dL 10/23/2016 12:[address] [facility] Alkaline Phosphatase 63 38 - 126 U/L 10/23/2016 12:[address] [facility] ALT 17 13 - 61 U/L 10/23/2016 12:[address] [facility] AST 11 5 - 40 U/L 10/23/2016 12:[address] [facility] Protein Total 7.7 6.4 - 8.2 gm/dL 10/23/2016 12:[address] [facility] Albumin 3.8 3.4 - 5.0 gm/dL 10/23/2016 12:[address] [facility] Bilirubin Total 0.3 0.2 - 1.0 mg/dL 10/23/2016 12:[address] [facility] eGFR by MDRD >60 >60 mL/min/1.7 3m2 10/23/2016 12:[address] [facility] eGFR by MDRD >60 >60 mL/min/1.7 3m2 10/23/2016 12:[address] [facility] Blood BLOOD SPECIMEN / Unknown 10/23/2016 12:04 PM [facility] 10/23/2016 12:10 PM [facility] Reg Butler DO LAB - CHEMISTRY JOANNA YUNG [facility] [address] [place] [address] * (ABNORMAL) CBC W AUTO DIFFERENTIAL (10/23/2016 12:04 PM [facility]) WBC 7.9 4.4 - 10.7 x10E9/L 10/23/2016 12:[address] [facility] WBC Corrected x10E9/L 10/23/2016 12:[address] [facility] RBC 4.58 3.80 - 5.20 x10E12/L 10/23/2016 12:[address] [facility] Hemoglobin 11.8(L) 12.0 - 15.6 gm/dL 10/23/2016 12:[address] [facility] Hematocrit 35.9 35.9 - 45.5 % 10/23/2016 12:[address] [facility] MCV 78.4(L) 80.7 - 98.3 fl 10/23/2016 12:[address] [facility] MCH 25.8(L) 26.7 - 34.0 pg 10/23/2016 12:[address] [facility] MCHC 32.9 30.8 - 35.9 gm/dL 10/23/2016 12:[address] [facility] Platelet Count 361 153 - 416 x10E9/L 10/23/2016 12:[address] [facility] RDW-CV 16.9(H) 12.1 - 14.9 % 10/23/2016 12:[address] [facility] MPV 9.3(L) 9.4 - 12.9 fl 10/23/2016 12:[address] [facility] Neutrophils % 57.6 44.0 - 73.0 % 10/23/2016 12:[address] [facility] Lymphocytes % 28.5 20.0 - 43.0 % 10/23/2016 12:[address] [facility] Monocytes % 11.2 5.0 - 13.0 % 10/23/2016 12:[address] [facility] Eosinophils % 1.8 0.0 - 6.0 % 10/23/2016 12:[address] [facility] Basophils % 0.6 0.0 - 2.0 % 10/23/2016 12:[address] [facility] Immature Granulocytes 0.3 0 - 1 % 10/23/2016 12:[address] [facility] Neutrophil Absolute 4.57 2.01 - 7.14 x10E9/L 10/23/2016 12:[address] [facility] Lymphocytes Absolute 2.26 1.07 - 3.94 x10E9/L 10/23/2016 12:[address] [facility] Monocytes Absolute 0.89 0.26 - 1.07 x10E9/L 10/23/2016 12:[address] [facility] [facility] Eosinophils Absolute 0.14 0 - 0.47 x10E9/L 10/23/2016 12:13 PM T[employer] Basophils Absolute 0.05 0 - 0.08 x10E9/L 10/23/2016 12:13 PM [employer] [facility] Immature Granulocytes Absolute 0.02 0.00 - 0.06 x10E9/L 10/23/2016 12:13 PM [employer] [facility] nRBC Auto 0 /100 WBC 10/23/2016 12:13 PM [employer] [facility] Blood BLOOD SPECIMEN / Unknown 10/23/2016 12:04 PM [employer] 10/23/2016 12:10 PM [employer] FIN[employer]ER Reg Butler DO LAB - HEMATOLOGY ORD ERABLES Performing Organization Address City/State/[facility] Co de Phone Number [facility] [address] [place] [address] documented in this encounter Visit Diagnoses Diagnosis Urinary tract infection, site unspecified Horseshoe kidney with renal calculus Left flank pain Abdominal pain, unspecified site documented in this encounter Administered Medications Inactive Administered Medications - up to 3 most recent administrations Medication Order MAR Action Action Date Dose Rate Site 0.9% NaCl injection 1-10 mL 1-10 mL, Intracatheter, PRN, Other, Starting on Emma 10/23/16 at 1156, Until Emma 10/23/16 at 1849 0.9% NaCl IV Bolus 1,000 mL, Administer over 61 Minutes, NOW, 1 dose, On Emma 10/23/16 at 1600 $ Given 10/23/2016 4:10 PM [employer] 1,000 mL ketorolac (TORADOL) injection 30 mg 30 mg, Intravenous, NOW, 1 dose, On Emma 10/23/16 at 1600 $ Given 10/23/2016 4:09 PM [employer] 30 mg ondansetron (ZOFRAN) injection 4 mg 4 mg, Intravenous, EVERY 6 HOURS PRN, Nausea/Vomiting, Starting on Emma 10/23/16 at 1552, Until Emma 10/23/16 at 1849 $ Given 10/23/2016 4:08 PM [employer] FIN[employer]ER 4 mg documented in this encounter Active and Recently Administered Medications Times are shown in [employer]. Scheduled Medication Order 10/21/2016 10/22/2016 10/23/2016 0.9% NaCl IV Bolus (COMPLETED) 1,000 mL, Administer over 61 Minutes, NOW, 1 dose, On Emma 10/23/16 at 1600 1610 ($ Given - Prov ider: Bal Alexandre RN)1711 (Due: Rx Stopped - Provider: Bal Alexandre RN) ketorolac (TORADOL) injection 30 mg (COMPLETED) 30 mg, Intravenous, NOW, 1 dose, On Emma 10/23/16 at 1600 1609 ($ Given - Prov ider: Bal Alexandre RN) PRN Medication Order 10/21/2016 10/22/2016 10/23/2016 0.9% NaCl injection 1-10 mL 1-10 mL, Intracatheter, PRN, Other, Starting on Emma 10/23/16 at 1156, Until Emma 10/23/16 at 1849 ondansetron (ZOFRAN) injection 4 mg 4 mg, Intravenous, EVERY 6 HOURS PRN, Nausea/Vomiting, Starting on Emma 10/23/16 at 1552, Until Emma 10/23/16 at 1849 1608 ($ Given - Prov ider: Bal Alexandre RN) documented in this encounter Care Teams [employer] Relationship Specialty Start Date End Date [employer], [facility] PCP - General 10/10/16 10/12/17 documented as of this encounter
--- OUTSIDE RECORDS SUMMARY | 2024-09-25 11:50 | XMS_ITS | Encounter Summary ---
Author Organization [facility] Address [address] [facility] [place] [address] Care Team Providers Care Battery Engineer Name Role Phone Unavailable Primary Care Provider Unavailabl e Reason for Visit * Reason Comments Pain Flank my kidneys pain si nce this morning/hx kidney stones and seen here on 10/11 Encounter Details Date Type Department Care Team (Late st Contact Info) Description 10/20/2015 9:14 AM TRANSFUSION NURSE - 10/20/2015 12:48 PM TRANSFUSION NURSE Emergency ER at [facility] [address] [place] [id number] Valente Perez MD [address] [place] [id number] Jesus Ritter MD [address] [place] [id number] Left ureteral stone (Primary Dx); UGI bleed; Urinary tract infection without hematuria, site unspecified; Kidney stone on right side Discharge Disposition: Home or Self Care Social [...] Sign Reading Time Taken Comments Blood Pressure 114/77 10/20/2015 12:23 PM TRANSFUSION NURSE Pulse 74 10/20/2015 12:43 PM TRANSFUSION NURSE Temperature 36.7 ??C (98.1 ??F) 10/20/2015 12:[address] Respiratory Rate - - Oxygen Saturation 98% 10/20/2015 12:43 PM TRANSFUSION NURSE Inhaled Oxygen Concentration - - Weight 87.5 kg (193 lb) 10/20/2015 9:14 AM TRANSFUSION NURSE Height 162.6 cm (5' 4 ) 10/20/2015 9:14 AM TRANSFUSION NURSE Body Mass Index 33.13 10/20/2015 9:14 AM TRANSFUSION NURSE documented in this encounter Functional Status Functional [...] this encounter Discharge Instructions * Discharge Instructions* Jesus Ritter MD - 10/20/2015 11:56 AM TRANSFUSION NURSE Images from the original note were not [...] 06/03/2006 Document Revised: 02/22/2013 Document Reviewed: 10/01/2012 [facility]?? Patient Information ??2014 [employer]. Kidney Stones Kidney stones (ureteral lithiasis) are solid masses that form inside your kidneys. The intense painis caused by the stone moving through the kidney, ureter, bladder, and urethra (urinary tract). When the stone moves, the ureter starts to spasm around the stone. The stone is usually passed in the urine. HOME CARE ?? Drink enough fluids to keep your pee (urine) clear or pale yellow. This helps to get the stone out. ?? Strain all pee through the provided strainer. Do not pee without peeing through the strainer, not even once. If you pee the stone out, catch it. The stone may be as small as a grain of salt. Take this to your doctor. ?? Only take medicine as told by your doctor. ?? Follow up with your doctor as told. ?? Get follow-up X-rays as told by your doctor. GET HELP RIGHT AWAY IF: ?? Your pain does not get better with medicine. ?? You have a fever. ?? Your pain increases and gets worse over 18 hours. ?? You have new belly (abdominal) pain. ?? You feel faint or pass out. MAKE SURE YOU: ?? Understand these instructions. ?? Will watch your condition. ?? Will get help right away if you are not doing well or get worse. Document Released: 02/09/2009 Document Revised: 11/15/2012 Document Reviewed: 06/21/2010 [employer]Care?? Patient Information ??2013 [employer]. SFUSION NURSE documented in this encounter Medications at Time of Discharge Medication Sig Dispensed Refills Start Date End Date albuterol HFA (PROVENTIL;VENTOLIN;PROAI R) 108 (90 BASE) MCG/ACT inhaler Inhale 2 Puffs by mouth every 6 hours as needed. 10/30/2015 ciprofloxacin (CIPRO) 500 MG tablet Take 1 Tab by mouth 2 times daily for 10 days 20 Tab 0 10/11/2015 10/21/2015 hydrocodone-acetaminophen (NORCO) 5-325 MG tablet Take 1 Tab by mouth every 4 hours as needed for Pain 15 Tab 0 10/11/2015 10/30/2015 naproxen sodium (ANAPROX DS) 550 MG tablet Take 1 Tab by mouth 2 times daily as needed for Pain 20 Tab 0 04/17/2015 10/30/2015 nitrofurantoin monohyd macro crystals (MACROBID) 100 MG capsule Take 1 Cap by mouth 2 times daily for 14 doses 14 Cap 0 10/20/2015 10/27/2015 nitrofurantoin monohyd macro crystals (MACROBID) 100 MG capsule Take 1 Cap by mouth 2 times daily for 14 doses 14 Cap 0 10/20/2015 10/27/2015 oxyCODONE-acetaminophen (PERCOCET) 5-325 MG tablet Take 1 Tab by mouth every 4 hours as needed for Pain 20 Tab 0 10/20/2015 01/08/2016 oxyCODONE-acetaminophen (PERCOCET) 5-325 MG tablet Take 1 Tab by mouth every 4 hours as needed for Pain 15 Tab 0 10/20/2015 01/08/2016 documented as of this encounter ED Notes * Jesus Ritter MD - 10/20/2015 10:45 AM CST Provider contact with the patient: 10/20/2015 10:45 Jumana Rivers [id number] [facility] EMERGENCY DEPARTMENT History Chief Complaint Patient presents with ??? Pain Flank my kidneys pain since this morning/hx kidney stones and seen here on 10/11 HPI Comments: Jumana Rivers is a 25 y.o. female presenting to the ED with a chief complaint of sharp, left-sided flank pain. The patient was seen here on 10/12/15 for the same problem, and it was found that she has a small kidney stone. Denies any urinary symptoms. Female Genitourinary The primary symptoms include flank pain.The history is provided by the patient. This is a new problem. The current episode started more than 1 week ago. The problem occurs constantly. The problem hasnot changed since onset.The quality of the pain is described as sharp. The pain is moderate. The problem affects the left side. She is not . She has not missed her period. Her LMP was weeks ago. The past medical history includes kidney stones.Urine output has been normal. The last void occurred less than 6 hours ago. She has tried nothing for the symptoms. Past Medical History Diagnosis Date ??? Asthma remote ??? Migraines ??? History of anemia ??? Chlamydia this ??? depression ??? Trichomonas Treated this ??? History of sexually transmitted disease ??? GBS (group B streptococcus) UTI complicating 08/07/2014 Past Surgical History Procedure Laterality Date ??? Negative surgical history Family History Problem Relation Age of Onset ??? Hypertension Maternal Grandmother ??? Hypertension Mother History Social History ??? Marital Status: Single Spouse Name: N/A Number of Children: N/A ??? Years of Education: N/A Occupational History ??? Not on file. Social History Main Topics ??? Smoking status: Current Every Day Smoker -- 0.25 packs/day ??? Smokeless tobacco: Never Used Comment: [...] Cardiovascular: Negative. Gastrointestinal: Negative. Genitourinary: Positive for flank pain. Musculoskeletal: Negative. Skin: Negative. Neurological: Negative. Endo/Heme/Allergies: Negative. Psychiatric/Behavioral: Negative. Physical Exam BP 128/81 mmHg Pulse 85 Temp(Src) 98.3 ??F Ht 1.626 m (5' 4 ) Wt 87.544 kg (193 lb) BMI 33.11 kg/m2 SpO2 97% Physical Exam Constitutional: She is oriented to person, place, and time. She appears well- developed and well-nourished. No distress. Black female. Crying and writhing in pain. HENT: Head: Normocephalic and atraumatic. Right Ear: External ear normal. Left Ear: External ear normal. Nose: Nose normal. Mouth/Throat: Oropharynx is clear and moist. Eyes: Conjunctivae and EOM are normal. Pupils are equal, round, and reactive to light. Right eye exhibits no discharge. Left eye exhibits no discharge. No scleral icterus. Right eye exhibits normal extraocular motion and no nystagmus. Left eye exhibits normal extraocular motion and no nystagmus. No nystagmus. Neck: Trachea normal, normal range of motion, full passive range of motion without pain and phonation normal. Neck supple. Normal carotid pulses, no hepatojugular reflux and no JVD present. No tracheal tenderness present. Carotid bruit is not present. No tracheal deviation present. Cardiovascular: Normal rate, regular rhythm, S1 normal, S2 normal, normal heart sounds and intact distal pulses. Exam reveals no gallop, no S3, no S4 and no friction rub. Pulses: Dorsalis pedis pulses are 1+ on the right side, and 1+ on the left side. Posterior tibial pulses are 1+ on the right side, and 1+ on the left side. Pulmonary/Chest: Effort normal and breath sounds normal. No stridor. No respiratory distress. She has no wheezes. She has no rales. She exhibits no tenderness. Abdominal: Soft. Bowel sounds are normal. She exhibits no distension, no pulsatile liver, no abdominal bruit, no pulsatile midline mass and no mass. There is no hepatosplenomegaly or splenomegaly. There is no tenderness. There is no rigidity, no rebound, no guarding and no CVA tenderness. No hernia. Hernia confirmed negative in the ventral area. No pulsatile mass. Mild left flank tenderness. Musculoskeletal: Normal range of motion. She exhibits no edema or tenderness. Neurological: She is alert and oriented to person, place, and time. She has normal strength and normal reflexes. She displays no atrophy, no tremor and normal reflexes. No cranial nerve deficit or sensory deficit. She exhibits normal muscle tone. She displays no seizure activity. Coordination normal. GCS eye subscore is 4. GCS verbal subscore is 5. GCS motor subscore is 6. She displays no Babinski's sign on the right side. She displays no Babinski's sign on the left side. Mental status: Awake, alert, oriented x 3. Higher Cerebral Function: speech - fluent, no aphasia, no dysarthria. Cranial Nerves: II - Visual cook intact [...] Normal sensation Coordination: Normal finger to nose and normal rapid alternating movements No truncal ataxia Skin: Skin is warm and dry. No rash noted. She is not diaphoretic. Psychiatric: She has a normal mood and affect. Her behavior is normal. Nursing note and vitals reviewed. Medications Current Outpatient Prescriptions Medication Sig Dispense Refill ??? nitrofurantoin monohyd macro crystals (MACROBID) 100 MG capsule Take 1 Cap by mouth 2 times daily for 14 doses 14 Cap 0 ??? oxyCODONE-acetaminophen (PERCOCET) 5-325 MG tablet Take 1 Tab by mouth every 4 hours as needed for Pain 20 Tab 0 ??? nitrofurantoin monohyd macro crystals (MACROBID) 100 MG capsule Take 1 Cap by mouth 2 times daily for 14 doses 14 Cap 0 ??? oxyCODONE-acetaminophen (PERCOCET) 5-325 MG tablet Take 1 Tab by mouth every 4 hours as needed for Pain 15 Tab 0 ??? ciprofloxacin (CIPRO) 500 MG tablet Take 1 Tab by mouth 2 times daily for 10 days 20 Tab 0 ??? hydrocodone-acetaminophen (NORCO) 5-325 MG tablet Take 1 Tab by mouth every 4 hours as needed for Pain 15 Tab 0 ??? naproxen sodium (ANAPROX DS) 550 MG tablet Take 1 Tab by mouth 2 times daily as needed for Pain20 Tab 0 ??? albuterol HFA (PROVENTIL;VENTOLIN;PROAIR) 108 (90 BASE) MCG/ACT inhaler Inhale 2 Puffs by mouthevery 6 hours as needed. Procedures Procedures - None ECG Interpretation ECG Interpretation Lab Interpretation Oxygen Saturation Interpretation The oxygen saturation level is: 97%. The patient was on Room Air for the saturation measurement. Measurement frequency: Spot Check. Oxygen saturation interpretation is Normal. Intervention(s) used: None. Hospital Encounter on 10/20/15 URINALYSIS ROUTINE W/REFLEX TO CULTURE Result Value Ref Range Color UA Yellow Straw, Yellow, Dark Yellow Clarity UA Cloudy Specific Caruthers UA >1.030 (H) 1.005-1.030 pH UA 5.5 5.0-8.0 pH Protein UA Trace (Abnormal) Negative Blood UA Negative Negative Leukocyte UA 1+ (Abnormal) Negative Nitrite UA Negative Negative Glucose UA Negative Negative Ketone UA Trace (Abnormal) Negative Bili UA Negative Negative Urobilinogen UA 0.2 0.1-1.0 EU/dL WBC UA Auto 20-50 (Abnormal) 0-2, 2-5 # /hpf RBC UA Auto 10-20 (Abnormal) 0-2, 2-5 # /hpf Bacteria UA Auto 1+ (Abnormal) None seen Hyaline Casts UA Auto Reflex to manual (Abnormal) 0-2 #/lpf Reflex Status Culture to follow URINALYSIS MICROSCOPIC ONLY W/REFLEX CULTURE Result Value Ref Range Epithelial Cell UA 5-10 (Abnormal) 0-2, 2-5 # /hpf Hyaline Casts 0-2 0-2 # /lpf HCG URINE QUALITATIVE - POINT OF CARE (IP) Result Value Ref Range HCG Qual Urine Negative Negative QC Verified Yes Yes CT RENAL STONE PROTOCOL (NO IV AND NO ORAL CONTRAST) Final Result Stable left obstructive uropathy with tiny stone now in the distal left ureter Progress Notes 10:04AM Initial Plan: Labs and a CT Renal Stone will be ordered. 12:11 PM Rechecked pt -patient resting comfortably and [...] results: Labs, CT Scans and Oxygen Saturation. Pt presents with a known kidney stone from 10/12/15 that was in the proximal left ureter. The CT today shows that the stone is now distal. There are about 20-50 white cells in the urine today which is more than on 10/12/15. I believe the patient has a UTI as well as a kidney stone. The pain is likely from the kidney stone moving. She was given 50 fentanyl IV and 30 of Toradol which resolved the pain. Instructed to continue to strain her urine and was given a prescription for percocet and an antibiotic. There was no growth in the urine cultures from 10/12/15. She will be discharged home with Macrobid and instructions to follow up with a Urologist. Orders Placed This Encounter ??? CULTURE URINE ??? CT RENAL STONE PROTOCOL (NO IV AND NO ORAL CONTRAST) ??? URINALYSIS ROUTINE W/REFLEX TO CULTURE ??? URINALYSIS MICROSCOPIC ONLY W/REFLEX CULTURE ??? HCG URINE QUALITATIVE - POINT OF CARE (IP) ??? ketorolac (TORADOL) injection 30 mg ??? DISCONTD: fentaNYL (SUBLIMAZE) injection 50 mcg ??? nitrofurantoin monohyd macro crystals (MACROBID) 100 MG capsule ??? oxyCODONE-acetaminophen (PERCOCET) 5-325 MG tablet ??? nitrofurantoin monohyd macro crystals (MACROBID) 100 MG capsule ??? oxyCODONE-acetaminophen (PERCOCET) 5-325 MG tablet Clinical Impression Final diagnoses: UGI bleed Urinary tract infection without hematuria, site unspecified Kidney stone on right side Left ureteral stone (Primary) New Medications: Discharge Medication List as of 10/20/2015 12:40 PM START taking these medications Details !! nitrofurantoin monohyd macro crystals (MACROBID) 100 MG capsule Disp-14 Cap, R-0, Take 1 Cap by mouth 2 times daily for 14 doses, Print !! oxyCODONE-acetaminophen (PERCOCET) 5-325 MG tablet Disp-20 Tab, R-0, Take 1 Tab by mouth every 4hours as needed for Pain, Print !! nitrofurantoin monohyd macro crystals (MACROBID) 100 MG capsule Disp-14 Cap, R-0, Take 1 Cap by mouth 2 times daily for 14 doses, Print !! oxyCODONE-acetaminophen (PERCOCET) 5-325 MG tablet Disp-15 Tab, R-0, Take 1 Tab by mouth every 4hours as needed for Pain, Print !! - Potential duplicate medications found. Please discuss with provider. I have advised the patient to follow-[place] with: [place] [id number] [facility] [address] [facility] [phone] [place] [id number] [facility] [address] [facility] [phone] Disposition: Discharged I have reviewed the information recorded by the scribe and agree with its accuracy and contents--Dr. ritter 10/20/2015 3:44 PM Transcribed by Alma Hair acting scribe on behalf of Dr. Stone MD. 10/20/2015 10:04 AM SFUSION NURSE * Pierce Bermeo RN - 10/20/2015 9:30 AM CST Pt c/o left flank pain starting approx 3 this am. Pt has hx of kidney stones. Pt states she was seen in this ed on Oct 11 for same problem and was dx with having a stone. Pt states she had an appt. With a urologist on and was told the stone had passed. SFUSION NURSE documented in this encounter Plan of Treatment Not on file documented as of this encounter Procedures Procedure Name Priority Date/Time Associated Diagnosis Comments CT ABDOMEN PELVIS WO CONTRAST STAT 10/20/2015 10:18 AM TRANSFUSION NURSE HCG URINE QUALITATIVE - POINT OF CARE STAT 10/20/2015 9:51 AM TRANSFUSION NURSE URINE MICROSCOPIC ONLY REFLEX TO CULTURE STAT 10/20/2015 9:37 AM TRANSFUSION NURSE URINALYSIS REFLEX MICROSCOPIC REFLEX CULTURE STAT 10/20/2015 9:37 AM TRANSFUSION NURSE CULTURE URINE STAT 10/20/2015 9:37 AM TRANSFUSION NURSE documented in this encounter Results * CT RENAL STONE PROTOCOL (NO IV AND NO ORAL CONTRAST) (10/20/2015 10:18 AM TRANSFUSION NURSE) Anatomical Region Laterality Modality Abdomen, Pelvis Computed Tomogra phy 10/20/2015 10:2 9 AM TRANSFUSION NURSE Impressions 10/20/2015 10:36 AM TRANSFUSION NURSE Stable left obstructive uropathy with tiny stone now in the distal left ureter Narrative 10/20/2015 10:[address] abdomen and pelvis ??without contrast Clinical: Bilateral flank pain, hematuria. Technique: Multidetector CT images were obtained through the abdomen and pelvis with axial and coronal reformations without contrast. ?. Findings: Comparison is made with 10/11/2015. Horseshoe kidney is again noted. Mild left hydronephrosis is unchanged. There is a tiny calcification in the left pelvis which was not definitely seen on the prior study and likely represents a distal left ureteral stone. This is seen on coronal image 53 and axial image 98. There are tiny right renal stones without hydronephrosis. The unenhanced liver, gallbladder, spleen and pancreas appear normal. There are no abnormal appearing loops of bowel. The bladder is collapsed. There is an IUD in the uterus. There is a 2.5 cm right adnexal cyst. Procedure Note Ankita Jay MD - 10/20/2015 CT abdomen and pelvis without contrast Clinical: Bilateral flank pain, hematuria. Technique: Multidetector CT images were obtained through the abdomen and pelvis with axial and coronal reformations without contrast. . Findings: Comparison is made with 10/11/2015. Horseshoe kidney is again noted. Mild left hydronephrosis is unchanged. There is a tiny calcification in the left pelvis which was not definitely seen on the prior study and likely represents a distal left ureteral stone. This is seen on coronal image 53 and axial image 98. There are tiny right renal stones without hydronephrosis. The unenhanced liver, gallbladder, spleen and pancreas appear normal. There are no abnormal appearing loops of bowel. The bladder is collapsed. There is an IUD in the uterus. There is a 2.5 cm right adnexal cyst. IMPRESSION Stable left obstructive uropathy with tiny stone now in the distal left ureter Jesus Ritter MD CT ORDERABLES * HCG URINE QUALITATIVE - POINT OF CARE (IP) (10/20/2015 9:51 AM TRANSFUSION NURSE) HCG Qual Urine Negative Negative [facility] POCT TESTING QC Verified Yes Yes [facility] POC T TESTING Urine specimen (specimen) URINE / Unknown 10/20/2015 9:51 AM TRANSFUSION NURSE Jesus Ritter MD LAB - POINT OF CARE ORDERABLES [facility] POCT TESTING [address] [phone] * CULTURE URINE (10/20/2015 9:37 AM TRANSFUSION NURSE) Culture No Growth (<1,000 CFU/mL) CHRYSTAL 10/21/2015 3:19 PM [facility] Urine URINE SPECIMEN OBTAINED BY CLEAN CATCH PROCEDURE / Unknown Collection / Unknown 10/20/2015 9:37 AM TRANSFUSION NURSE 10/20/2015 9:43 AM [facility] Jesus Ritter MD LAB - MICROBIOLOGY ORDERABLES Performing Organization Address [facility]/ZIP Co de Phone Number [facility]CRO[facility]OLOG[facility] [address] [place] [id number] [phone] * (ABNORMAL) URINALYSIS MICROSCOPIC ONLY W/REFLEX CULTURE (10/20/2015 9:37 AM TRANSFUSION NURSE) Epithelial Cell UA 5-10(A) 0-2, 2-5 # /hpf 10/20/2015 10:[address] [facility] Hyaline Casts 0-2 0 - 2 # /lpf 10/20/2015 10:[address] [facility] Urine URINE SPECIMEN OBTAINED BY CLEAN CATCH PROCEDURE / Unknown Collection / Unknown 10/20/2015 9:37 AM TRANSFUSION NURSE 10/20/2015 9:43 AM TRANSFUSION NURSE Narrative [facility] - 10/20/2015 10:04 AM [facility] Urine sample less that 1 mL. Microscopic exam performed on unconcentrated sample. Jesus Ritter MD LAB - URINALYSIS OR DERABLES Performing Organization Address City/[facility] Co de Phone Number [facility] [address] [place] [address] * (ABNORMAL) URINALYSIS ROUTINE W/REFLEX TO CULTURE (10/20/2015 9:37 AM TRANSFUSION NURSE) Color UA Yellow Straw, Yellow, Dark Yellow 10/20/2015 10:[address] [facility] Clarity UA Cloudy 10/20/2015 10:[address] [facility] Specific Caruthers UA >1.030(H) 1.005 - 1.030 10/20/2015 10:[address] [facility] pH UA 5.5 5.0 - 8.0 pH 10/20/2015 10:[address] [facility] Protein UA Trace(A) Negative 10/20/2015 10:[address] [facility] Blood UA Negative Negative 10/20/2015 10:[address] [facility] Leukocyte UA 1+(A) Negative 10/20/2015 10:[address] [facility] Nitrite UA Negative Negative 10/20/2015 10:[address] [facility] Glucose UA Negative Negative 10/20/2015 10:[address] [facility] Ketone UA Trace(A) Negative 10/20/2015 10:[address] [facility] Bilirubin UA Negative Negative 10/20/2015 10:[address] [facility] Urobilinogen UA 0.2 0.1 - 1.0 EU/dL 10/20/2015 10:[address] [facility] WBC UA Auto 20-50(A) 0-2, 2-5 # /hpf 10/20/2015 10:[address] [facility] RBC UA Auto 10-20(A) 0-2, 2-5 # /hpf 10/20/2015 10:[address] [facility] Bacteria UA Auto 1+(A) None seen 10/20/2015 10:[address] [facility] Hyaline Casts UA Auto Reflex to manual(A) 0 - 2 #/lpf 10/20/2015 10:[address] [facility] Reflex Status Culture to follow 10/20/2015 10:[address] [facility] Urine URINE SPECIMEN OBTAINED BY CLEAN CATCH PROCEDURE / Unknown Collection / Unknown 10/20/2015 9:37 AM TRANSFUSION NURSE 10/20/2015 9:43 AM [facility] Jesus Ritter MD LAB - URINALYSIS OR DERABLES Performing Organization Address [facility] Co de Phone Number [facility] [address] [place], [place] [phone] documented in this encounter Visit Diagnoses Diagnosis Left ureteral stone- Primary UGI bleed Hemorrhage of gastrointestinal tract, unspecified Urinary tract infection without hematuria, site unspecified Kidney stone on right side Calculus of kidney documented in this encounter Administered Medications Inactive Administered Medications - up to 3 most recent administrations Medication Order MAR Action Action Date Dose Rate Site fentaNYL (SUBLIMAZE) injection 50 mcg 50 mcg, Intravenous, EVERY 15 MIN PRN, dont exceed 150 mcg, Starting on 10/20/15 at 0931, Until 10/20/15 at 1348 $ Given 10/20/2015 9:43 AM TRANSFUSION NURSE 50 mcg ketorolac (TORADOL) injection 30 mg 30 mg, Intravenous, NOW, 1 dose, On 10/20/15 at 0945 $ Given 10/20/2015 9:43 AM TRANSFUSION NURSE 30 mg documented in this encounter Active and Recently Administered Medications Times are shown in TRANSFUSION NURSE. Scheduled Medication Order 10/18/2015 10/19/2015 10/20/2015 ketorolac (TORADOL) injection 30 mg (COMPLETED) 30 mg, Intravenous, NOW, 1 dose, On 10/20/15 at 0945 0943 ($ Given - Prov ider: Pierce Bermeo RN) PRN Medication Order 10/18/2015 10/19/2015 10/20/2015 fentaNYL (SUBLIMAZE) injection 50 mcg (CANCELED) 50 mcg, Intravenous, EVERY 15 MIN PRN, dont exceed 150 mcg, Starting on 10/20/15 at 0931, Until 10/20/15 at 1348 0943 ($ Given - Prov ider: Pierce Bermeo RN) documented in this encounter
--- OUTSIDE RECORDS SUMMARY | 2024-09-25 11:50 | XMS_ITS | Encounter Summary ---
Author Organization [facility] Address [address] [place] [address] Care Team Providers Care Carport Erector Name Role Phone Unavailable Primary Care Provider Unavailabl e Reason for Visit * Reason Comments Allergy Symptoms for 1 month Cough Encounter Details Date Type Department Care Team (Late st Contact Info) Description 01/08/2016 9:27 AM CDT - 01/08/2016 10:49 AM CDT Emergency ER at [facility] [address] [place] [address] Valente Perez MD [address] [place] [address] Mild intermittent asthma without complication (HCC); Rash Discharge Disposition: Home or Self Care Social [...] Sign Reading Time Taken Comments Blood Pressure 121/79 01/08/2016 10:33 AM CDT Pulse 80 01/08/2016 10:33 AM CDT Temperature 36.8 ??C (98.2 ??F) 01/08/2016 10:33 AM C DT Respiratory Rate 20 01/08/2016 10:33 AM CDT Oxygen Saturation 100% 01/08/2016 10:33 AM CDT Inhaled Oxygen Concentration - - Weight 88 kg (194 lb) 01/08/2016 9:29 AM CDT Height 162.6 cm (5' 4.02 ) 01/08/2016 9:29 AM CD T Body Mass Index 33.28 01/08/2016 9:29 AM CDT documented in this encounter Functional [...] Discharge Instructions * Discharge Instructions* Catherine Dubose, NEELAM-ATLASSIAN ADMINISTRATOR - 01/08/2016 10:45 AM CDT Images from the original note were not included. Allergies Allergies may happen from anything your body is sensitive to. This may be food, medicines, pollens,chemicals, and many other things. Food allergies can be severe and deadly. HOME CARE ?? If you do not know what causes a reaction, keep a diary. Write down the foods you ate and the symptoms that followed. Avoid foods that cause reactions. ?? If you have red raised spots (hives) or a rash: 1. Take medicine as told by your doctor. 2. Use medicines for red raised spots and itching as needed. 3. Apply cold cloths (compresses) to the skin. Take a cool bath. Avoid hot baths or showers. ?? If you are severely allergic: 1. It is often necessary to go to the hospital after you have treated your reaction. 2. Wear your medical alert jewelry. 3. You and your family must learn how to give a allergy shot or use an allergy kit (anaphylaxis kit). 4. Always carry your allergy kit or shot with you. Use this medicine as told by your doctor if a severe reaction is occurring. GET HELP RIGHT AWAY IF: ?? You have trouble breathing or are making high-pitched whistling sounds (wheezing). ?? You have a tight feeling in your chest or throat. ?? You have a puffy (swollen) mouth. ?? You have red raised spots, puffiness (swelling), or itching all over your body. ?? You have had a severe reaction that was helped by your allergy kit or shot. The reaction can return once the medicine has worn off. ?? You think you are having a food allergy. Symptoms most often happen within 30 minutes of eating a food. ?? Your symptoms have not gone away within 2 days or are getting worse. ?? You have new symptoms. ?? You want to retest yourself with a food or drink you think causes an allergic reaction. Only do this under the care of a doctor. MAKE SURE YOU: ?? Understand these instructions. ?? Will watch your condition. ?? Will get help right away if you are not doing well or get worse. Document Released: 12/19/2013 Document Reviewed: 12/19/2013 ExitCare?? Patient Information ??2015 [employer]. This information is not intended to replace advice given to you by your health care provider. Make sure you discuss any questions you have with your health care provider. Asthma Prevention Cigarette smoke, house dust, molds, pollens, animal dander, certain insects, exercise, and even cold air are all triggers that can cause an asthma attack. Often, no specific triggers are identified. Take the following measures around your house to reduce attacks: ?? Avoid cigarette and other smoke. No smoking should be allowed in a home where someone with asthma lives. If smoking is allowed indoors, it should be done in a room with a closed door, and a windowshould be opened to clear the air. If possible, do not use a wood-burning stove, kerosene heater, or fireplace. Minimize exposure to all sources of smoke, including incense, candles, fires, and fireworks. ?? Decrease pollen exposure. Keep your windows shut and use central air during the pollen allergy season. Stay indoors with windows closed from late morning to afternoon, if you can. Avoid mowing thelawn if you have grass pollen allergy. Change your clothes and shower after being outside during this time of year. ?? Remove molds from bathrooms and wet areas. Do this by cleaning the floors with a fungicide or diluted bleach. Avoid using humidifiers, vaporizers, or swamp coolers. These can spread molds through the air. Fix leaky faucets, pipes, or other sources of water that have mold around them. ?? Decrease house dust exposure. Do this by using bare floors, vacuuming frequently, and changing furnace and air cooler filters frequently. Avoid using feather, wool, or foam bedding. Use polyester pillows and plastic covers over your mattress. Wash bedding weekly in hot water (hotter than 130?? F). ?? Try to get someone else to vacuum for you once or twice a week, if you can. Stay out of rooms while they are being vacuumed and for a short while afterward. If you vacuum, use a dust mask (from a [employer] store), a double-layered or microfilter vacuum stitch cleaner bag, or a vacuum stitch cleaner with a HEPAfilter. ?? Avoid perfumes, talcum powder, hair spray, paints and other strong odors and fumes. ?? Keep warm-blooded pets (cats, dogs, rodents, birds) outside the home if they are triggers for asthma. If you can't keep the pet outdoors, keep the pet out of your bedroom and other sleeping areas at all times, and keep the door closed. Remove carpets and furniture covered with cloth from your home. If that is not possible, keep the pet away from fabric-covered furniture and carpets. ?? Eliminate cockroaches. Keep food and garbage in closed containers. Never leave food out. Use poison baits, traps, powders, gels, or paste (for example, boric acid). If a spray is used to kill cockroaches, stay out of the room until the odor goes away. ?? Decrease indoor humidity to less than 60%. Use an indoor air cleaning device. ?? Avoid sulfites in foods and beverages. Do not drink beer or wine or eat dried fruit, processed potatoes, or shrimp if they cause asthma symptoms. ?? Avoid cold air. Cover your nose and mouth with a scarf on cold or windy days. ?? Avoid aspirin. This is the most common drug causing serious asthma attacks. ?? If exercise triggers your asthma, ask your caregiver how you should prepare before exercising. (For example, ask if you could use your inhaler 10 minutes before exercising.) ?? Avoid close contact with people who have a cold or the flu since your asthma symptoms may get worse if you catch the infection from them. Wash your hands thoroughly after touching items that may have been handled by others with a respiratory infection. ?? Get a flu shot every year to protect against the flu virus, which often makes asthma worse for days to weeks. Also get a pneumonia shot once every five to 10 years. Call your caregiver if you want further information about measures you can take to help prevent asthma attacks. Document Released: 08/24/2006 Document Revised: 11/15/2012 Document Reviewed: 07/02/2010 ExitCare?? Patient Information ??2014 [employer]. Cough, Adult A cough is a reflex that helps clear your throat and airways. It can help heal the body or may be areaction to an irritated airway. A cough may only last 2 or 3 weeks (acute) or may last more than 8weeks (chronic). CAUSES Acute cough: ?? Viral or bacterial infections. Chronic cough: ?? Infections. ?? Allergies. ?? Asthma. ?? Post-nasal drip. ?? Smoking. ?? Heartburn or acid reflux. ?? Some medicines. ?? Chronic lung problems (COPD). ?? Cancer. SYMPTOMS ?? Cough. ?? Fever. ?? Chest pain. ?? Increased breathing rate. ?? High-pitched whistling sound when breathing (wheezing). ?? Colored mucus that you cough up (sputum). TREATMENT ?? A bacterial cough may be treated with antibiotic medicine. ?? A viral cough must run its course and will not respond to antibiotics. ?? Your caregiver may recommend other treatments if you have a chronic cough. HOME CARE INSTRUCTIONS ?? Only take [id number] or prescription medicines for pain, discomfort, or fever as directed by your caregiver. Use cough suppressants only as directed by your caregiver. ?? Use a cold steam vaporizer or humidifier in your bedroom or home to help loosen secretions. ?? Sleep in a semi-upright position if your cough is worse at night. ?? Rest as needed. ?? Stop smoking if you smoke. SEEK IMMEDIATE MEDICAL CARE IF: ?? You have pus in your sputum. ?? Your cough starts to worsen. ?? You cannot control your cough with suppressants and are losing sleep. ?? You begin coughing up blood. ?? You have difficulty breathing. ?? You develop pain which is getting worse or is uncontrolled with medicine. ?? You have a fever. MAKE SURE YOU: ?? Understand these instructions. ?? Will watch your condition. ?? Will get help right away if you are not doing well or get worse. Document Released: 02/20/2012 Document Revised: 11/15/2012 Document Reviewed: 02/20/2012 ExitCare?? Patient Information ??2013 [employer]. Rash A rash is a change in the color or texture of your skin. There are many different types of rashes. You may have other problems that accompany your rash. CAUSES ?? Infections. ?? Allergic reactions. This can include allergies to pets or foods. ?? Certain medicines. ?? Exposure to certain chemicals, soaps, or cosmetics. ?? Heat. ?? Exposure to poisonous plants. ?? Tumors, both cancerous and noncancerous. SYMPTOMS ?? Redness. ?? Scaly skin. ?? Itchy skin. ?? Dry or cracked skin. ?? Bumps. ?? Blisters. ?? Pain. DIAGNOSIS Your caregiver may do a physical exam to determine what type of rash you have. A skin sample (biopsy) may be taken and examined under a microscope. TREATMENT Treatment depends on the type of rash you have. Your caregiver may prescribe certain medicines. Forserious conditions, you may need to see a skin doctor (saw filer). HOME CARE INSTRUCTIONS ?? Avoid the substance that caused your rash. ?? Do not scratch your rash. This can cause infection. ?? You may take cool baths to help stop itching. ?? Only take swdk-jal-nsjieum or prescription medicines as directed by your caregiver. ?? Keep all follow-up appointments as directed by your caregiver. SEEK IMMEDIATE MEDICAL CARE IF: ?? You have increasing pain, swelling, or redness. ?? You have a fever. ?? You have new or severe symptoms. ?? You have body aches, diarrhea, or vomiting. ?? Your rash is not better after 3 days. MAKE SURE YOU: ?? Understand these instructions. ?? Will watch your condition. ?? Will get help right away if you are not doing well or get worse. Document Released: 08/14/2003 Document Revised: 11/15/2012 Document Reviewed: 06/07/2012 ExitCare?? Patient Information ??2013 [employer]. documented in this encounter Medications at Time of Discharge Medication Sig Dispensed Refills Start Date End Date albuterol HFA (PROVENTIL;VENTOLIN;ND OAIR) 108 (90 BASE) MCG/ACT inhaler Inhale 2 Puffs by mouth every 4 hours as needed for Shortness of Breath or Wheezing 1 Inhaler 1 01/08/2016 03/08/2016 diphenhydrAMINE (BENADRYL) 25 MG capsule Take 1 Cap by mouth every 4 hours as needed for Itching 20 Cap 0 01/08/2016 05/01/2016 loratadine (CLARITIN) 10 MG tablet Take 1 Tab by mouth once daily 30 Tab 0 01/08/2016 05/01/2016 predniSONE (DELTASONE) 20 MG tablet Take 2 Tabs by mouth once daily 10 Tab 0 01/08/2016 03/08/2016 documented as of this encounter ED Notes * Niharika Thompson EMT-P - 01/08/2016 10:49 AM CDT Pt given d/c instructions by provider. VSS. Pt able to exit via steady, unassisted gait. * Niharika Thompson EMT-P - 01/08/2016 9:51 AM CDT Medication given per orders, see MAR. * Charlotte Guzman RN - 01/08/2016 9:34 AM CDT amb to qed 3 with c/o dry cough, itchy eyes, r ear pain and chest tightness x 1 mo. Waiting provider eval. * Catherine Dubose, GRID OPERATOR-ATLASSIAN ADMINISTRATOR - 01/08/2016 9:32 AM CDT Provider contact with the patient: 01/08/2016 09:32 Jumana Rivers [id number] [facility] EMERGENCY DEPARTMENT History Chief Complaint Patient presents with ??? Allergy Symptoms for 1 month ??? Cough HPI Comments: Jumana Rivers is a 25 y.o. female with PMHx of asthma, anemia, chronic eczema on her left hand presenting to the ED with a chief complaint of allergy symptoms last night. Associated symptoms include itchy hives on arms and thighs, chest tightening, and dry cough. Denies STYLES, SOB, difficulty swallowing or breathing, nausea, vomiting, diarrhea, chills or fever. Denies using new soap or lotion. Pt notes that she is out of inhaler. Pt did not take anything for the itch. LKNP: December 31 Family history of hypertension. Denies surgical histories. The history is provided by the patient. Past Medical History [...] ??? Not on file Social History Narrative reviewed Review of Systems Review of Systems Constitutional: Negative. Negative for fever and chills. HENT: Negative. Eyes: Negative. Negative for blurred vision and double vision. Respiratory: Positive for cough (dry). Negative for sputum production and shortness of breath. Chest tightening. Cardiovascular: Negative. Negative for chest pain. Gastrointestinal: Negative. Negative for abdominal pain. Genitourinary: Negative. Musculoskeletal: Negative. Skin: Positive for itching and rash. Thighs and arms. Neurological: Negative. Negative for dizziness and headaches. All other systems reviewed and are negative. Physical Exam BP 140/76 mmHg Pulse 94 Temp(Src) 98.5 ??F Resp 18 Ht 1.626 m (5' 4.02 ) Wt 87.998 kg (194 lb) BMI 33.28 kg/m2 SpO2 100% Physical Exam Constitutional: She [...] rate, regular rhythm and normal heart sounds. Pulmonary/Chest: Effort normal and breath sounds normal. No respiratory distress. Abdominal: Soft. Bowel sounds are normal. There is no tenderness. Musculoskeletal: Normal range of motion. Neurological: She is alert and oriented to person, place, and time. She has normal reflexes. Skin: Skin is warm and dry. Scaling dry skin on bilat dorsal hand, 3 cm area, not erythematous or warm. Looks to be chronic. No hives. 4 cm slightly raised macular rash with blanching on left arm Psychiatric: She has a normal mood and affect. Nursing note and vitals reviewed. Medications Current Outpatient Prescriptions Medication Sig Dispense Refill ??? predniSONE (DELTASONE) 20 MG tablet Take 2 Tabs by mouth once daily 10 Tab 0 ??? diphenhydrAMINE (BENADRYL) 25 MG capsule Take 1 Cap by mouth every 4 hours as needed for Itching 20 Cap 0 ??? loratadine (CLARITIN) 10 MG tablet Take 1 Tab by mouth once daily 30 Tab 0 ??? albuterol HFA (PROVENTIL;VENTOLIN;PROAIR) 108 (90 BASE) MCG/ACT inhaler Inhale 2 Puffs by mouthevery 4 hours as needed for Shortness of Breath or Wheezing 1 Inhaler 1 Procedures Procedures ECG Interpretation ECG Interpretation Lab Interpretation Oxygen Saturation Interpretation The oxygen saturation level is: 100%. The patient was on Room Air for the saturation measurement. Measurement frequency: Continuous. Oxygen saturation interpretation is Normal. Intervention(s) used: None. No results found for this visit on 01/08/16. No orders to display Progress Notes 10:23 AM Given breathing treatment.imprved with recheck 10:35 AM I re-evaluated the patient???s medical condition, comfort, and provided a care update. Pt feels better and lung sounds are clear. No wheezing. No respiratory distress. Speaks in full sentences. Pt will be given inhalers. 10:36 AM I re-evaluated the patient's medical condition, comfort, and provided a care update. Patient resting comfortably and feeling better. I discussed the results of diagnostic studies, my clinical impression, and the plan for further treatment with the patient. I had a formal disposition interview with the patient/family to discuss the ED visit and disposition plan. Patient agrees with plan and discharge at [...] Oxygen Saturation. Orders Placed This Encounter ??? START ED RT BRONCHODILATOR PROTOCOL ??? DISCONTD: albuterol (PROVENTIL;VENTOLIN) (5 MG/ML) 0.5% nebulizer solution 2.5 mg ??? DISCONTD: ipratropium (ATROVENT) nebulizer solution 0.5 mg ??? predniSONE (DELTASONE) tablet 60 mg ??? famotidine (PEPCID) tablet 20 mg ??? predniSONE (DELTASONE) 20 MG tablet ??? diphenhydrAMINE (BENADRYL) 25 MG capsule ??? loratadine (CLARITIN) 10 MG tablet ??? albuterol HFA (PROVENTIL;VENTOLIN;PROAIR) 108 (90 BASE) MCG/ACT inhaler Clinical Impression Final diagnoses: Mild intermittent asthma without complication Rash New Medications: Discharge Medication List as of 01/08/2016 10:46 AM START taking these medications Details predniSONE (DELTASONE) 20 MG tablet Disp-10 Tab, R-0, Take 2 Tabs by mouth once daily, PrintStart on January 08 diphenhydrAMINE (BENADRYL) 25 MG capsule Disp-20 Cap, R-0, Take 1 Cap by mouth every 4 hours as needed for Itching, Print loratadine (CLARITIN) 10 MG tablet Disp-30 Tab, R-0, Take 1 Tab by mouth once daily, Print albuterol HFA (PROVENTIL;VENTOLIN;PROAIR) 108 (90 BASE) MCG/ACT inhaler Disp-1 Inhaler, R-1, Inhale2 Puffs by mouth every 4 hours as needed for Shortness of Breath or Wheezing, Print I have advised the patient to follow-up with: Paulina Arnold Jr., MD [address] [address] or may go to [facility] Disposition: Discharged I have reviewed the information recorded by the scribe and agree with its accuracy and contents--NPCarll 01/08/2016 10:35 PM Transcribed by Sailaja Dominguez acting scribe on behalf of MARIANA Dubose 01/08/2016 9:35 AM documented in this encounter Plan of Treatment Scheduled Orders Name Type Priority Associated Diagnoses Order Schedule START ED RT BRONCHODILATOR PROTOCOL Respiratory Care STAT ONCE for 1 Occurrences starting 01/08/2016 until 01/08/2016 documented as of this encounter Visit Diagnoses Diagnosis Mild intermittent asthma without complication (HCC) Unspecified asthma Rash Rash and other nonspecific skin eruption documented in this encounter Administered Medications Inactive Administered Medications - up to 3 most recent administrations Medication Order MAR Action Action Date Dose Rate Site albuterol (PROVENTIL;VENTOLIN) (5 MG/ML) 0.5% nebulizer solution 2.5 mg 2.5 mg, Inhalation, PRN, Shortness of Breath, Wheezing, Starting on Thu01/08/16 at 0939, Until Thu01/08/16 at 1149, Dilute prior to administration via nebulization. $ Given 01/08/2016 10:14 AM CDT 2.5 mg famotidine (PEPCID) tablet 20 mg 20 mg, Oral, NOW, 1 dose, On Thu01/08/16 at 0945 $ Given 01/08/2016 9:50 AM CDT 20 mg ipratropium (ATROVENT) nebulizer solution 0.5 mg 0.5 mg, Inhalation, PRN, Shortness of Breath, Wheezing, Starting on Thu01/08/16 at 0939, Until Thu01/08/16 at 1149 $ Given 01/08/2016 10:14 AM CDT 0.5 mg predniSONE (DELTASONE) tablet 60 mg 60 mg, Oral, NOW, 1 dose, On Thu01/08/16 at 0945 $ Given 01/08/2016 9:50 AM CDT 60 mg documented in this encounter Active and Recently Administered Medications Times are shown in CDT. Scheduled Medication Order 01/06/2016 01/07/2016 01/08/2016 famotidine (PEPCID) tablet 20 mg (COMPLETED) 20 mg, Oral, NOW, 1 dose, On Thu01/08/16 at 0945 0950 ($ Given - Prov ider: Niharika Thompson EMT-P) predniSONE (DELTASONE) tablet 60 mg (COMPLETED) 60 mg, Oral, NOW, 1 dose, On Thu01/08/16 at 0945 0950 ($ Given - Prov ider: Niharika Thompson EMT-P) PRN Medication Order 01/06/2016 01/07/2016 01/08/2016 albuterol (PROVENTIL;VENTOLIN) (5 MG/ML) 0.5% nebulizer solution 2.5 mg (CANCELED)(Linked Group 1) 2.5 mg, Inhalation, PRN, Shortness of Breath, Wheezing, Starting on Thu01/08/16 at 0939, Until Thu01/08/16 at 1149, Dilute prior to administration via nebulization. 1014 ($ Given - Prov ider: Qamar Castellanos RCP) ipratropium (ATROVENT) nebulizer solution 0.5 mg (CANCELED)(Linked Group 1) 0.5 mg, Inhalation, PRN, Shortness of Breath, Wheezing, Starting on Thu01/08/16 at 0939, Until Thu01/08/16 at 1149 1014 ($ Given - Prov ider: Qamar Castellanos RCP) Linked Groups Order Group 1: albuterol (PROVENTIL;VENTOLIN) (5 MG/ML) 0.5% nebulizer solution 2.5 mg (CANCELED)Jump to med 2.5 mg, Inhalation, PRN, Shortness of Breath, Wheezing, Starting on Thu01/08/16 at 0939, Until Thu01/08/16 at 1149, Dilute prior to administration via nebulization. And ipratropium (ATROVENT) nebulizer solution 0.5 mg (CANCELED)Jump to med 0.5 mg, Inhalation, PRN, Shortness of Breath, Wheezing, Starting on Thu01/08/16 at 0939, Until Thu01/08/16 at 1149 documented in this encounter
--- OUTSIDE RECORDS SUMMARY | 2024-09-25 11:50 | XMS_ITS | Encounter Summary ---
Author Organization [facility] Address [address] [place] [address] Care Team Providers Care Design Consultant Name Role Phone Unavailable Primary Care Provider Unavailabl e Reason for Visit * Reason Comments Pain Flank right flank and back pain onset this morning Encounter Details Date Type Department Care Team (Late st Contact Info) Description 10/30/2015 10:25 PM RAILROAD WORKER - 10/31/2015 12:29 AM RAILROAD WORKER Emergency ER at [facility] [address], [place] [id number] Rubén Duarte, DO [address] [place] [id number] Kidney stone; Urinary tract infection with hematuria, site unspecified Discharge Disposition: Home or Self Care Social [...] Sign Reading Time Taken Comments Blood Pressure 137/70 10/30/2015 11:36 PM RAILROAD WORKER Pulse 97 10/30/2015 10:34 PM RAILROAD WORKER Temperature 36.4 ??C (97.6 ??F) 10/30/2015 6:59 PM CS T Respiratory Rate 20 10/30/2015 10:34 PM RAILROAD WORKER Oxygen Saturation 100% 10/30/2015 11:36 PM RAILROAD WORKER Inhaled Oxygen Concentration - - Weight 86.2 kg (190 lb) 10/30/2015 6:59 PM RAILROAD WORKER Height 162.6 cm (5' 4.02 ) 10/30/2015 6:59 PM CS T Body Mass Index 32.6 10/30/2015 6:59 PM RAILROAD WORKER documented in this encounter Functional Status Functional [...] this encounter Discharge Instructions * Discharge Instructions* Hiwot Stanford RN - 10/31/2015 12:29 AM RAILROAD WORKER Images from the original note were not included. Kidney Stones Kidney stones (urolithiasis) are solid masses that form inside your kidneys. The intense pain is caused by the stone moving through the kidney, ureter, bladder, and urethra (urinary tract). When the stone moves, the ureter starts to spasm around the stone. The stone is usually passed in your pee (urine). HOME CARE ?? Drink enough fluids to keep your pee clear or pale yellow. This helps to get the stone out. ?? Strain all pee through the provided strainer. Do not pee without peeing through the strainer, not even once. If you pee the stone out, catch it in the strainer. The stone may be as small as a grain of salt. Take this to your doctor. This will help your doctor figure out what you can do to try toprevent more kidney stones. ?? Only take medicine as told by your doctor. ?? Follow up with your doctor as told. ?? Get follow-up X-rays as told by your doctor. GET HELP IF: You have pain that gets worse even if you have been taking pain medicine. GET HELP RIGHT AWAY IF: ?? Your pain does not get better with medicine. ?? You have a fever or shaking chills. ?? Your pain increases and gets worse over 18 hours. ?? You have new belly (abdominal) pain. ?? You feel faint or pass out. ?? You are unable to pee. MAKE SURE YOU: ?? Understand these instructions. ?? Will watch your condition. ?? Will get help right away if you are not doing well or get worse. Document Released: 02/09/2009 Document Revised: 04/26/2014 Document Reviewed: 01/25/2014 ExitCare?? Patient Information ??2015 [employer]. This information is not intended to replace advice given to you by your health care provider. Make sure you discuss any questions you have with your health care provider. Urinary Tract Infection Urinary tract infections (UTIs) [...] 02/22/2013 Document Reviewed: 10/01/2012 ExitCare?? Patient Information ??[address] [employer] WORKER documented in this encounter Medications at Time of Discharge Medication Sig Dispensed Refills Start Date End Date ciprofloxacin (CIPRO) 500 MG tablet Take 1 Tab by mouth 2 times daily for 7 days 14 Tab 0 10/30/2015 11/06/2015 metoclopramide (REGLAN) 10 MG tablet Take 1 Tab by mouth every 8 hours as needed for Nausea/Vomiting 10 Tab 0 10/30/2015 01/08/2016 oxyCODONE-acetaminophen (PERCOCET) 5-325 MG tablet Take 1 Tab by mouth every 4 hours as needed for Pain 20 Tab 0 10/30/2015 01/08/2016 oxyCODONE-acetaminophen (PERCOCET) 5-325 MG tablet Take 1 Tab by mouth every 4 hours as needed for Pain 20 Tab 0 10/20/2015 01/08/2016 oxyCODONE-acetaminophen (PERCOCET) 5-325 MG tablet Take 1 Tab by mouth every 4 hours as needed for Pain 15 Tab 0 10/20/2015 01/08/2016 documented as of this encounter ED Notes * Hiwot Stanford RN - 10/31/2015 12:29 AM CST D/C instructions reviewed with patient. Patient verbally stated understanding and is A&Ox4. Pt ambulatory without assistance. BP 137/70 mmHg Pulse 97 Temp(Src) 97.6 ??F Resp 20 Wt 86.183 kg (190 lb) BMI 32.60 kg/m2 Will continue home. ROAD WORKER * Hiwot Stanford RN - 10/30/2015 11:37 PM CST Pt resting quietly on stretcher with side rails up and call light in reach. Boyfriend at bedside. BP 138/80 mmHg Pulse 97 Temp(Src) 97.6 ??F Resp 20 Wt 86.183 kg (190 lb) BMI 32.60 kg/m2 Will continue to monitor. ROAD WORKER * Hiwot Stanford RN - 10/30/2015 10:58 PM CST Pt arrives to ED with CC of left flank pain that radiates to mid-low back rates 06/16. States she was here last week or the week before last for stones in her ureter and kidneys. AOX4 and ambulatory w/o assistance. Boyfriend at bedside. BP 116/82 mmHg Pulse 97 Temp(Src) 97.6 ??F Resp 20 Wt 86.183 kg (190 lb) BMI 32.60 kg/m2 Will continue to monitor. ROAD WORKER * Hiwot Stanford RN - 10/30/2015 10:34 PM CST MD at bedside. ROAD WORKER * GeraldRubén diaz, DO - 10/30/2015 10:27 PM CST Provider contact with the patient: 10/30/2015 22:27 Jumana Rivers [id number] [facility] EMERGENCY DEPARTMENT History Chief Complaint Patient presents with ??? Pain Flank right flank and back pain onset this morning HPI Comments: Jumana Rivers is a 25 y.o. female presenting to the ED with a chief complaint of left flank pain. Sx began 1 week ago and started to worsen today. Patient notes she was seen in the ED 1 week ago from similar pain and was diagnosed with a left uretal stone and right kidney stone.She was given antibiotics and hydrocodone rx. She notes her pain began to worsen today and is similar to her pain during her previous ED visit. Pain Back Primary symptoms include back pain.The history is provided by the patient. This is a recurrent problem. Episode onset: 1 week ago, worsening today. The problem has been gradually worsening. Pain location: flank. The problem affects the left side. The pain is moderate. There has been no chest pain, no fever, no headaches, no abdominal pain, no dysuria and no weakness.She has tried analgesics for the symptoms. The treatment provided moderate relief. Past Medical History Diagnosis Date ??? Asthma [...] for fever, chills and diaphoresis. HENT: Negative. Respiratory: Negative. Negative for cough, shortness of breath and wheezing. Cardiovascular: Negative. Negative for chest pain. Gastrointestinal: Negative. Negative for nausea, vomiting and abdominal pain. Genitourinary: Negative. Negative for dysuria and flank pain. Musculoskeletal: Positive for back pain (left flank). Negative for myalgias. Skin: Negative. Negative for rash. Neurological: Negative. Negative for dizziness, weakness and headaches. All other systems reviewed and are negative. Physical Exam BP 116/82 mmHg Pulse 70 Temp(Src) 97.6 ??F Resp 18 Ht 1.626 m (5' 4.02 ) Wt 86.183 kg (190 lb) BMI 32.60 kg/m2 SpO2 100% Physical Exam Constitutional: She is oriented to person, place, and time. She appears well- developed and well-nourished. No distress. HENT: Head: Normocephalic and atraumatic. Mouth/Throat: Oropharynx is clear and moist. Eyes: Conjunctivae and EOM are normal. Pupils are equal, round, and reactive to light. Neck: Normal range of motion and full passive range of motion without pain. Neck supple. Cardiovascular: Normal rate, regular rhythm, normal heart sounds and normal pulses. Pulmonary/Chest: Effort normal and breath sounds normal. No respiratory distress. She has no wheezes. She has no rales. Abdominal: Soft. Normal appearance and bowel sounds are normal. There is no tenderness. There is CVA tenderness (left). Musculoskeletal: Normal range of motion. She exhibits no edema or tenderness. Neurological: She is alert and oriented to person, place, and time. Skin: Skin is warm and dry. Nursing note and vitals reviewed. Medications Current Outpatient Prescriptions Medication Sig Dispense Refill ??? oxyCODONE-acetaminophen (PERCOCET) 5-325 MG tablet Take 1 Tab by mouth every 4 hours as needed for Pain 20 Tab 0 ??? metoclopramide (REGLAN) 10 MG tablet Take 1 Tab by mouth every 8 hours as needed for Nausea/Vomiting 10 Tab 0 ??? ciprofloxacin (CIPRO) 500 MG tablet Take 1 Tab by mouth 2 times daily for 7 days 14 Tab 0 ??? oxyCODONE-acetaminophen (PERCOCET) 5-325 MG tablet Take 1 Tab by mouth every 4 hours as needed for Pain 20 Tab 0 ??? oxyCODONE-acetaminophen (PERCOCET) 5-325 MG tablet Take 1 Tab by mouth every 4 hours as needed for Pain 15 Tab 0 Procedures Procedures ECG Interpretation ECG Interpretation Lab Interpretation Oxygen Saturation Interpretation The oxygen saturation level is: 100%. The patient was on Room Air for the saturation measurement. Oxygen saturation interpretation is Normal. Hospital Encounter on 10/30/15 CBC W AUTO DIFFERENTIAL Result Value Ref Range WBC 9.0 4.4-10.7 x10^9/L WBC Corrected x10^9/L RBC 5.08 3.80-5.20 x10^12/L Hgb 13.2 12.0-15.6 gm/dL HCT 39.7 35.9-45.5 % MCV 78.1 (L) 80.7-98.3 fl MCH 26.0 (L) 26.7-34.0 pg MCHC 33.2 30.8-35.9 gm/dL Plt Ct 375 153-416 x10^9/L RDW-CV 15.4 (H) 12.1-14.9 % MPV 9.3 (L) 9.4-12.9 fl Neutro 65.0 44.0-73.0 % Lymph 19.8 (L) 20.0-43.0 % [place] 12.0 5.0-13.0 % Eos 2.2 0.0-6.0 % Baso 0.7 0.0-2.0 % Immature Grans 0.3 0-1 % Neutro Abs 5.83 2.01-7.14 x10^9/L Lymph Abs 1.78 1.07-3.94 x10^9/L [place] Abs 1.08 (H) 0.26-1.07 x10^9/L Eosin Abs 0.20 0-0.47 x10^9/L Baso Abs 0.06 0-0.08 x10^9/L Immature Grans (Abs) 0.03 0.00-0.06 x10^9/L NRBC Auto 0 /100 WBC COMPREHENSIVE METABOLIC PANEL Result Value Ref Range Glucose 81 74-106 mg/dL Sodium 136 136-145 mmol/L Potassium 4.0 3.5-5.1 mmol/L Chloride 103 98-107 mmol/L CO2 24 22-31 mmol/L Calcium 8.8 8.5-10.1 mg/dL Anion Gap 9 5-20 mmol/L BUN 9 7-21 mg/dL Creatinine 0.95 0.50-1.30 mg/dL Alk Phos 72 38-126 U/L ALT/SGPT 15 12-78 U/L AST/SGOT 10 5-40 U/L Protein Total 8.2 6.4-8.2 gm/dL Albumin 4.1 3.4-5.0 gm/dL Bili Total 0.5 0.2-1.0 mg/dL eGFR MDRD >60 >60 mL/min/1.73m2 eGFR MDRD AFR AMR >60 >60 mL/min/1.73m2 URINALYSIS ROUTINE W/REFLEX TO CULTURE Result Value Ref Range Color UA Yellow Straw, Yellow, Dark Yellow Clarity UA Clear Specific [place] UA 1.015 1.005-1.030 pH UA 8.0 5.0-8.0 pH Protein UA Negative Negative Blood UA Trace (Abnormal) Negative Leukocyte UA 2+ (Abnormal) Negative Nitrite UA Negative Negative Glucose UA Negative Negative Ketone UA 1+ (Abnormal) Negative Bili UA Negative Negative Urobilinogen UA 0.2 0.1-1.0 EU/dL WBC UA Auto Reflex to manual (Abnormal) 0-2, 2-5 # /hpf RBC UA Auto Reflex to manual (Abnormal) 0-2, 2-5 # /hpf Epithelial Cell UA Auto Reflex to manual (Abnormal) 0-2, 2-5 # /hpf Bacteria UA Auto Reflex to manual (Abnormal) None seen Reflex Status Culture to follow URINALYSIS MICROSCOPIC ONLY W/REFLEX CULTURE Result Value Ref Range RBC UA 2-5 0-2, 2-5 # /hpf WBC UA 10-20 (Abnormal) 0-2, 2-5 # /hpf Bacteria UA 1+ (Abnormal) None Seen Epithelial Cell UA 2-5 0-2, 2-5 # /hpf Reflex Status Culture to follow HCG URINE QUALITATIVE - POINT OF CARE (IP) Result Value Ref Range HCG Qual Urine Negative Negative QC Verified Yes Yes No orders to display Progress Notes 10:28 PM Initial Plan: Will order Labs and UA. Patient will be given Dilaudid, Reglan, Toradol and IV fluids. Patient agreeable with plan. 11:18 PM I had a formal disposition interview with the patient/family to discuss the ED visit and disposition plan. Patient is agreeable with plans for discharge. ED Course Medical Decision Making I have reviewed the: Previous Chart, Nursing Notes and Vitals. I have interpreted the following results: Labs and Oxygen Saturation. Orders Placed This Encounter ??? CULTURE URINE ??? CBC W AUTO DIFFERENTIAL ??? COMPREHENSIVE METABOLIC PANEL ??? URINALYSIS ROUTINE W/REFLEX TO CULTURE ??? URINALYSIS MICROSCOPIC ONLY W/REFLEX CULTURE ??? HCG URINE QUALITATIVE - POINT OF CARE (IP) ??? 0.9% NaCl injection 1-10 mL ??? ketorolac (TORADOL) injection 30 mg ??? metoclopramide (REGLAN) injection 10 mg ??? HYDROmorphone (DILAUDID) injection 1 mg ??? 0.9% NaCl infusion ??? levofloxacin (LEVAQUIN) IVPB 500 mg ??? oxyCODONE-acetaminophen (PERCOCET) 5-325 MG tablet ??? metoclopramide (REGLAN) 10 MG tablet ??? ciprofloxacin (CIPRO) 500 MG tablet Clinical Impression Final diagnoses: Kidney stone Urinary tract infection with hematuria, site unspecified 11:19 PM Pt is medically stable for d/c home [...] verbalized understanding of the discharge instructions. BP 138/80 mmHg Pulse 97 Temp(Src) 97.6 ??F Resp 20 Ht 1.626 m (5' 4.02 ) Wt 86.183 kg (190 lb) BMI 32.60 kg/m2 SpO2 99% New Medications: New Prescriptions CIPROFLOXACIN (CIPRO) 500 MG TABLET Take 1 Tab by mouth 2 times daily for 7 days METOCLOPRAMIDE (REGLAN) 10 MG TABLET Take 1 Tab by mouth every 8 hours as needed for Nausea/Vomiting OXYCODONE-ACETAMINOPHEN (PERCOCET) 5-325 MG TABLET Take 1 Tab by mouth every 4 hours as needed for Pain I have advised the patient to follow-up with: [facility] COMMUNITY ASSISTANT PASSENGER LOCOMOTIVE ENGINEER [id number] [facility] [phone] Schedule an appointment as soon as possible for a visit Disposition: Discharged I have reviewed the information recorded by the scribe and agree with its accuracy and contents--Dr. Duarte 10/31/2015 12:21 AM Transcribed by Berry Shields acting scribe on behalf of Dr. Duarte 10/30/2015 10:[address] documented in this encounter Plan of Treatment Not on file documented as of this encounter Procedures Procedure Name Priority Date/Time Associated Diagnosis Comments HCG URINE QUALITATIVE - POINT OF CARE STAT 10/30/2015 7:40 PM RAILROAD WORKER URINE MICROSCOPIC ONLY REFLEX TO CULTURE STAT 10/30/2015 7:35 PM RAILROAD WORKER URINALYSIS REFLEX MICROSCOPIC REFLEX CULTURE STAT 10/30/2015 7:35 PM RAILROAD WORKER CULTURE URINE STAT 10/30/2015 7:35 PM RAILROAD WORKER CBC W AUTO DIFFERENTIAL STAT 10/30/2015 7:35 PM RAILROAD WORKER COMPREHENSIVE METABOLIC PANEL STAT 10/30/2015 7:35 PM RAILROAD WORKER documented in this encounter Results * HCG URINE QUALITATIVE - POINT OF CARE (IP) (10/30/2015 7:40 PM RAILROAD WORKER) HCG Qual Urine Negative Negative [facility] POCT TEST[facility] QC Verified Yes Yes [facility] POC T TESTING Urine specimen (specimen) URINE / Unknown 10/30/2015 7:40 PM RAILROAD WORKER Rubén Duarte DO LAB - POINT OF CARE ORDERABLES [facility] POCT TEST[facility] [address] [place] [id number] [place] [address] * CULTURE URINE (10/30/2015 7:35 PM RAILROAD WORKER) Culture <10,000 CFU/mL urogenital marco CHRYSTAL 11/01/2015 10:15 AM RAILROAD WORKER [facility] MICROBIOLOGY Urine URINE SPECIMEN OBTAINED BY CLEAN CATCH PROCEDURE / Unknown Collection / Unknown 10/30/2015 7:35 PM RAILROAD WORKER 10/30/2015 7:40 PM RAILROAD WORKER Junior Rubio MD LAB - MICROBIOLOGY O RDERABLES Performing Organization Address City/[facility]/ZIP Co de Phone Number [facility] MICROBIOLOGY [address] [place] [phone] * (ABNORMAL) URINALYSIS MICROSCOPIC ONLY W/REFLEX CULTURE (10/30/2015 7:35 PM RAILROAD WORKER) RBC UA 2-5 0-2, 2-5 # /hpf 10/30/2015 8:[address] [facility] WBC UA 10-20(A) 0-2, 2-5 # /hpf 10/30/2015 8:[address] [facility] Bacteria UA 1+(A) None Seen 10/30/2015 8:[address] [facility] Epithelial Cell UA 2-5 0-2, 2-5 # /hpf 10/30/2015 8:[address] [facility] Reflex Status Culture to follow 10/30/2015 8:[address] [facility] Urine URINE SPECIMEN OBTAINED BY CLEAN CATCH PROCEDURE / Unknown Collection / Unknown 10/30/2015 7:35 PM RAILROAD WORKER 10/30/2015 7:40 PM RAILROAD WORKER Junior Rubio MD LAB - URINALYSIS ORD ERABLES Performing Organization Address City/[facility]/ZIP Co de Phone Number [facility] [address] [place] [address] * (ABNORMAL) URINALYSIS ROUTINE W/REFLEX TO CULTURE (10/30/2015 7:35 PM RAILROAD WORKER) Color UA Yellow Straw, Yellow, Dark Yellow 10/30/2015 7:48 PM RAILROAD WORKER [facility] Clarity UA Clear 10/30/2015 7:48 PM RAILROAD WORKER [facility] Specific [place] UA 1.015 1.005 - 1.030 10/30/2015 7:[address] [facility] pH UA 8.0 5.0 - 8.0 pH 10/30/2015 7:[address] [facility] Protein UA Negative Negative 10/30/2015 7:[address] [facility] Blood UA Trace(A) Negative 10/30/2015 7:[address] [facility] Leukocyte UA 2+(A) Negative 10/30/2015 7:48 PM RAILROAD WORKER [facility] Nitrite UA Negative Negative 10/30/2015 7:48 PM RAILROAD WORKER [facility] Glucose UA Negative Negative 10/30/2015 7:[address] [facility] Ketone UA 1+(A) Negative 10/30/2015 7:[address] [facility] Bilirubin UA Negative Negative 10/30/2015 7:[address] [facility] Urobilinogen UA 0.2 0.1 - 1.0 EU/dL 10/30/2015 7:[address] [facility] WBC UA Auto Reflex to manual(A) 0-2, 2-5 # /hpf 10/30/2015 7:[address] [facility] RBC UA Auto Reflex to manual(A) 0-2, 2-5 # /hpf 10/30/2015 7:[address] [facility] Epithelial Cell UA Auto Reflex to manual(A) 0-2, 2-5 # /hpf 10/30/2015 7:[address] [facility] Bacteria UA Auto Reflex to manual(A) None seen 10/30/2015 7:[address] [facility] Reflex Status Culture to follow 10/30/2015 7:[address] [facility] Urine URINE SPECIMEN OBTAINED BY CLEAN CATCH PROCEDURE / Unknown Collection / Unknown 10/30/2015 7:35 PM RAILROAD WORKER 10/30/2015 7:40 PM [facility] Rubén Duarte DO LAB - URINALYSIS ORD ERABLES [facility] [address] [place] [address] * COMPREHENSIVE METABOLIC PANEL (10/30/2015 7:35 PM RAILROAD WORKER) Glucose 81 74 - 106 mg/dL 10/30/2015 7:[address] [facility] Sodium 136 136 - 145 mmol/L 10/30/2015 7:[address] [facility] Potassium 4.0 3.5 - 5.1 mmol/L 10/30/2015 7:[address] [facility] Chloride 103 98 - 107 mmol/L 10/30/2015 7:[address] [facility] CO2 24 22 - 31 mmol/L 10/30/2015 7:[address] [facility] Calcium 8.8 8.5 - 10.1 mg/dL 10/30/2015 7:[address] [facility] Anion Gap 9 5 - 20 mmol/L 10/30/2015 7:[address] [facility] BUN 9 7 - 21 mg/dL 10/30/2015 7:[address] [facility] Creatinine 0.95 0.50 - 1.30 mg/dL 10/30/2015 7:[address] [facility] Alkaline Phosphatase 72 38 - 126 U/L 10/30/2015 7:[address] [facility] ALT 15 12 - 78 U/L 10/30/2015 7:[address] [facility] AST 10 5 - 40 U/L 10/30/2015 7:[address] [facility] Protein Total 8.2 6.4 - 8.2 gm/dL 10/30/2015 7:[address] [facility] Albumin 4.1 3.4 - 5.0 gm/dL 10/30/2015 7:[address] [facility] Bilirubin Total 0.5 0.2 - 1.0 mg/dL 10/30/2015 7:[address] [facility] eGFR by MDRD >60 >60 mL/min/1.7 3m2 10/30/2015 7:[address] [facility] eGFR by MDRD >60 >60 mL/min/1.7 3m2 10/30/2015 7:[address] [facility] Blood BLOOD SPECIMEN / Unknown Venipuncture / Unknown 10/30/2015 7:35 PM [facility] 10/30/2015 7:40 PM [facility] Rubén Duarte DO LAB - CHEMISTRY JOANNA YUNG [facility] [address] [place] [address] * (ABNORMAL) CBC W AUTO DIFFERENTIAL (10/30/2015 7:35 PM [facility]) WBC 9.0 4.4 - 10.7 x10^9/L 10/30/2015 7:[address] [facility] WBC Corrected x10^9/L 10/30/2015 7:[address] [facility] RBC 5.08 3.80 - 5.20 x10^12/L 10/30/2015 7:[address] [facility] Hemoglobin 13.2 12.0 - 15.6 gm/dL 10/30/2015 7:[address] [facility] Hematocrit 39.7 35.9 - 45.5 % 10/30/2015 7:[address] [facility] MCV 78.1(L) 80.7 - 98.3 fl 10/30/2015 7:[address] [facility] MCH 26.0(L) 26.7 - 34.0 pg 10/30/2015 7:[address] [facility] MCHC 33.2 30.8 - 35.9 gm/dL 10/30/2015 7:[address] [facility] Platelet Count 375 153 - 416 x10^9/L 10/30/2015 7:[address] [facility] RDW-CV 15.4(H) 12.1 - 14.9 % 10/30/2015 7:[address] [facility] MPV 9.3(L) 9.4 - 12.9 fl 10/30/2015 7:[address] [facility] Neutrophils % 65.0 44.0 - 73.0 % 10/30/2015 7:[address] [facility] Lymphocytes % 19.8(L) 20.0 - 43.0 % 10/30/2015 7:[address] [facility] Monocytes % 12.0 5.0 - 13.0 % 10/30/2015 7:[address] [facility] Eosinophils % 2.2 0.0 - 6.0 % 10/30/2015 7:[address] [facility] Basophils % 0.7 0.0 - 2.0 % 10/30/2015 7:[address] [facility] Immature Granulocytes 0.3 0 - 1 % 10/30/2015 7:[address] [facility] Neutrophil Absolute 5.83 2.01 - 7.14 x10^9/L 10/30/2015 7:[address] [facility] Lymphocytes Absolute 1.78 1.07 - 3.94 x10^9/L 10/30/2015 7:42 PM RAILROAD WORKER [facility] Monocytes Absolute 1.08(H) 0.26 - 1.07 x10^9/L 10/30/2015 7:[address] [facility] Eosinophils Absolute 0.20 0 - 0.47 x10^9/L 10/30/2015 7:42 PM RAILROAD WORKER [facility] Basophils Absolute 0.06 0 - 0.08 x10^9/L 10/30/2015 7:[address] [facility] Immature Granulocytes Absolute 0.03 0.00 - 0.06 x10^9/L 10/30/2015 7:[address] [facility] nRBC Auto 0 /100 WBC 10/30/2015 7:[address] [facility] Blood BLOOD SPECIMEN / Unknown Venipuncture / Unknown 10/30/2015 7:35 PM RAILROAD WORKER 10/30/2015 7:40 PM RAILROAD WORKER Rubén Duarte DO LAB - HEMATOLOGY ORD ERABLES Performing Organization Address City/State/[facility] Co de Phone Number [facility] [address] [place] [address] documented in this encounter Visit Diagnoses Diagnosis Kidney stone Calculus of kidney Urinary tract infection with hematuria, site unspecified documented in this encounter Administered Medications Inactive Administered Medications - up to 3 most recent administrations Medication Order MAR Action Action Date Dose Rate Site 0.9% NaCl infusion at 1,000 mL/hr, Intravenous, ONCE, 1 dose, On Thu10/30/15 at 2300, Administer 500 mL Bolus $ Given 10/30/2015 11:00 PM RAILROAD WORKER 1000 mL/hr HYDROmorphone (DILAUDID) injection 1 mg 1 mg, Intravenous, ONCE, 1 dose, On Thu10/30/15 at 2300 $ Given 10/30/2015 10:43 PM RAILROAD WORKER 1 mg ketorolac (TORADOL) injection 30 mg 30 mg, Intravenous, ONCE, 1 dose, On Thu10/30/15 at 2300, Do not administer if sensitivity to Aspirin, history of asthma or if urine is positive $ Given 10/30/2015 10:46 PM RAILROAD WORKER 30 mg levofloxacin (LEVAQUIN) IVPB 500 mg 500 mg, at 100 mL/hr, Intravenous, ONCE, 1 dose, On Thu10/30/15 at 2300 $ Given 10/30/2015 10:49 PM RAILROAD WORKER 500 mg 100 mL/ hr metoclopramide (REGLAN) injection 10 mg 10 mg, Intravenous, ONCE, 1 dose, On Thu10/30/15 at 2300 $ Given 10/30/2015 10:45 PM [employer] 10 mg documented in this encounter Active and Recently Administered Medications Times are shown in [employer]. Scheduled Medication Order 10/29/2015 10/30/2015 10/31/2015 0.9% NaCl infusion (COMPLETED) at 1,000 mL/hr, Intravenous, ONCE, 1 dose, On Thu10/30/15 at 2300, Administer 500 mL Bolus 2300 ($ Given - Provider: Hiwot Stanford RN) HYDROmorphone (DILAUDID) injection 1 mg (COMPLETED) 1 mg, Intravenous, ONCE, 1 dose, On Thu10/30/15 at 2300 2243 ($ Given - Provider: Hiwot Stanford RN) ketorolac (TORADOL) injection 30 mg (COMPLETED) 30 mg, Intravenous, ONCE, 1 dose, On Thu10/30/15 at 2300, Do not administer if sensitivity to Aspirin, history of asthma or if urine is positive 2246 ($ Given - Provider: Hiwot Stanford RN) levofloxacin (LEVAQUIN) IVPB 500 mg (COMPLETED) 500 mg, at 100 mL/hr, Intravenous, ONCE, 1 dose, On Thu10/30/15 at 2300 2249 ($ Given - Provider: Hiwot Stanford RN)2349 (Rx Stopped - Provider: Hiwot Stanford RN) metoclopramide (REGLAN) injection 10 mg (COMPLETED) 10 mg, Intravenous, ONCE, 1 dose, On Thu10/30/15 at 2300 2245 ($ Given - Provider: Hiwot Stanford RN) documented in this encounter
--- OUTSIDE RECORDS SUMMARY | 2024-09-25 11:50 | XMS_ITS | Encounter Summary ---
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 Name Role Phone Unavailable Primary Care Provider Unavailabl e Reason for Visit * Reason Comments Dizziness dizzy with nausea an d back pain for one week/no dysuria/denies Encounter Details Date Type Department Care Team (Late st Contact Info) Description 03/08/2016 4:40 PM CDT - 03/08/2016 6:10 PM CDT Emergency ER at [facility] [address] [place] [id number] Eber Mariscal MD [address] [address] Dizziness; Lumbar strain, initial encounter Discharge Disposition: Home or Self [...] Reading Time Taken Comments Blood Pressure 112/68 03/08/2016 5:52 PM CDT Pulse 77 03/08/2016 5:52 PM CDT Temperature 36.7 ??C (98 ??F) 03/08/2016 5:52 PM CDT Respiratory Rate 18 03/08/2016 5:52 PM CDT Oxygen Saturation 100% 03/08/2016 5:52 PM CDT Inhaled Oxygen Concentration - - Weight 87.5 kg (193 lb) 03/08/2016 4:29 PM CDT Height 162.6 cm (5' 4.02 ) 03/08/2016 4:29 PM CD T Body Mass Index 33.11 03/08/2016 4:29 PM CDT documented in this encounter Functional [...] this encounter Discharge Instructions * Discharge Instructions* Eber Mariscal MD - 03/08/2016 5:53 PM CDT Images from the original note were not included. Muscle Strain Muscle strain occurs when a muscle is stretched beyond its normal length. A small number of muscle fibers generally are torn. This is especially common in athletes. This happens when a sudden, violent force placed on a muscle stretches it too far. Usually, recovery from muscle strain takes 1 to 2 weeks. Complete healing will take 5 to 6 weeks. HOME CARE INSTRUCTIONS ?? While awake, apply ice to the sore muscle for the first 2 days after the injury. ?? Put ice in a plastic bag. ?? Place a towel between your skin and the bag. ?? Leave the ice on for 15-20 minutes each hour. ?? Do not use the strained muscle for several days, until you no longer have pain. ?? You may wrap the injured area with an elastic bandage for comfort. Be careful not to wrap it tootightly. This may interfere with blood circulation or increase swelling. ?? Only take [id number] or prescription medicines for pain, discomfort, or fever as directed by your caregiver. SEEK MEDICAL CARE IF: You have increasing pain or swelling in the injured area. MAKE SURE YOU: ?? Understand these instructions. ?? Will watch your condition. ?? Will get help right away if you are not doing well or get worse. Document Released: 08/24/2006 Document Revised: 11/15/2012 Document Reviewed: 09/04/2012 ExitCare?? Patient Information ??2014 [employer]. Dizziness Dizziness is a common problem. It is a feeling of unsteadiness or lightheadedness. You may feel like you are about to faint. Dizziness can lead to injury if you stumble or fall. A person of any age group can suffer from dizziness, but dizziness is more common in older adults. CAUSES Dizziness can be caused by many different things, including: ?? Middle ear problems. ?? Standing for too long. ?? Infections. ?? An allergic reaction. ?? Aging. ?? An emotional response to something, such as the sight of blood. ?? Side effects of medicines. ?? Fatigue. ?? Problems with circulation or blood pressure. ?? Excess use of alcohol, medicines, or illegal drug use. ?? Breathing too fast (hyperventilation). ?? An arrhythmia or problems with your heart rhythm. ?? Low red blood cell count (anemia). ?? . ?? Vomiting, diarrhea, fever, or other illnesses that cause dehydration. ?? Diseases or conditions such as Parkinson's disease, high blood pressure (hypertension), diabetes, and thyroid problems. ?? Exposure to extreme heat. DIAGNOSIS To find the cause of your dizziness, your caregiver may do a physical exam, lab tests, radiologic imaging scans, or an electrocardiography test (ECG). TREATMENT Treatment of dizziness depends on the cause of your symptoms and can vary greatly. HOME CARE INSTRUCTIONS ?? Drink enough fluids to keep your urine clear or pale yellow. This is especially important in very hot weather. In the elderly, it is also important in cold weather. ?? If your dizziness is caused by medicines, take them exactly as directed. When taking blood pressure medicines, it is especially important to get up slowly. ?? Rise slowly from chairs and steady yourself until you feel okay. ?? In the morning, first sit up on the side of the bed. When this seems okay, stand slowly while holding onto something until you know your balance is fine. ?? If you need to systems integration engineer one place for a long time, be sure to move your legs often. Tighten and relax the muscles in your legs while standing. ?? If dizziness continues to be a problem, have someone stay with you for a day or two. Do this until you feel you are well enough to stay alone. Have the person call your caregiver if he or she notices changes in you that are concerning. ?? Do not drive or use heavy machinery if you feel dizzy. ?? Do not drink alcohol. SEEK IMMEDIATE MEDICAL CARE IF: ?? Your dizziness or lightheadedness gets worse. ?? You feel nauseous or vomit. ?? You develop problems with talking, walking, weakness, or using your arms, hands, or legs. ?? You are not thinking clearly or you have difficulty forming sentences. It may take a friend or family member to determine if your thinking is normal. ?? You develop chest pain, abdominal pain, shortness of breath, or sweating. ?? Your vision changes. ?? You notice any bleeding. ?? You have side effects from medicine that seems to be getting worse rather than better. MAKE SURE YOU: ?? Understand these instructions. ?? Will watch your condition. ?? Will get help right away if you are not doing well or get worse. Document Released: 02/17/2002 Document Revised: 11/15/2012 Document Reviewed: 03/12/2012 ExitCare?? Patient Information ??2013 [employer]. documented in this encounter Medications at Time [...] once daily 30 Tab 0 01/08/2016 05/01/2016 naproxen (NAPROSYN) 500 MG tablet Take 1 Tab by mouth 2 times daily as needed for Pain 20 Tab 0 03/08/2016 05/01/2016 documented as of this encounter ED Notes * Madyson Small RN - 03/08/2016 6:09 PM CDT Patient discharging home. Follow up care reviewed. Prescriptions reviewed. Patient verbalized understanding. No transportation issues. Md at bedside. * Naila Cordero RN - 03/08/2016 5:45 PM CDT Urine specimen obtained and sent to lab for urinalsyis. Urine HCG POC is negative. * Naila Cordero RN - 03/08/2016 5:42 PM CDT EKG performed and given to Dr. Mariscal. * Naila Cordero RN - 03/08/2016 4:48 PM CDT Pt presents to ED with c/o low back pain and headache x 2 weeks. Pt now feels nauseated and dizzy. Pt is afebrile. Pt denies vomiting, hematuria, constipation or diarrhea. Pt states that she occasionally feels near syncopal. Pt rates pain a 6 but states that it increases to a 10 at night. Pt is awake and alert. Oriented x 4. Pt denies visual problems. Pt states that sometimes when she is ambulating the back pain travels down her legs. Dr. Mariscal H&P. * Eber Mariscal MD - 03/08/2016 4:41 PM CDT Provider contact with the patient: 03/08/2016 16:41 [place] [place] [id number] [facility] EMERGENCY DEPARTMENT History Chief Complaint Patient presents with ??? Dizziness dizzy with nausea and back pain for one week/no dysuria/denies Dizzy Weak The primary symptoms include dizziness and light-headedness.The history is provided by the patient.This is a new problem. The current episode started 2 days ago. The time course is sudden.The problem is mild. The problem has not changed since onset.The problem occurs at rest. The patient is experiencing light-headedness.Associated symptoms include nausea and palpitations.Pertinent negatives include no chest pain, no abdominal pain, no headaches or no shortness of breath.Risk factors do not include UTI, fever, environmental or medication or dosage change.The symptoms are aggravated by walkingand movement of head. Nothing relieves the symptoms. She has tried nothing for the symptoms. The karishma atment provided no relief. Past Medical History Diagnosis Date ??? [...] Systems Review of Systems Constitutional: Negative for fever and chills. Eyes: Negative for blurred vision, double vision and redness. Respiratory: Negative for cough and shortness of breath. Cardiovascular: Negative for chest pain and palpitations. Gastrointestinal: Positive for nausea. Negative for abdominal pain and diarrhea. Genitourinary: Negative for dysuria, urgency, frequency and hematuria. Musculoskeletal: Positive for back pain. Neurological: Positive for dizziness and light-headedness. Negative for tingling, sensory change and headaches. All other systems reviewed and are negative. Physical Exam BP 119/83 mmHg Pulse 88 Temp(Src) 98.4 ??F Resp 14 Ht 1.626 m (5' 4.02 ) Wt 87.544 kg (193 lb) BMI [...] no tenderness. Musculoskeletal: Normal range of motion. Lumbar back: She exhibits spasm. Neurological: She is alert and oriented to [...] 30 Tab 0 Procedures Procedures ECG Interpretation Date/Time: 03/08/2016 5:44 PM Interpreted by ED provider Comparison: not compared with previous ECG Rhythm: sinus rhythm Ectopy: none Rate: normal BPM: 70 QRS axis: normal Conduction: conduction normal ST Segments: ST segments normal T Waves: T waves normal Other: no other findings Clinical impression: normal ECG ECG Rhythm Interpretation Lab Interpretation Oxygen Saturation Interpretation The oxygen saturation level is: 100%. The patient was on Room Air for the saturation measurement. Measurement frequency: Continuous. Oxygen saturation interpretation is Normal. Intervention(s) used: None. Hospital Encounter on 03/08/16 CBC W AUTO DIFFERENTIAL Result Value Ref Range WBC 6.2 4.4-10.7 x10E9/L WBC Corrected x10E9/L RBC 4.34 3.80-5.20 x10E12/L Hgb 11.0 (L) 12.0-15.6 gm/dL HCT 33.2 (L) 35.9-45.5 % MCV 76.5 (L) 80.7-98.3 fl MCH 25.3 (L) 26.7-34.0 pg MCHC 33.1 30.8-35.9 gm/dL Plt Ct 358 153-416 x10E9/L RDW-CV 17.2 (H) 12.1-14.9 % MPV 9.5 9.4-12.9 fl Neutro 51.7 44.0-73.0 % Lymph 34.2 20.0-43.0 % Faulk 10.0 5.0-13.0 % Eos 3.0 0.0-6.0 % Baso 0.8 0.0-2.0 % Immature Grans 0.3 0-1 % Neutro Abs 3.22 2.01-7.14 x10E9/L Lymph Abs 2.13 1.07-3.94 x10E9/L Faulk Abs 0.62 0.26-1.07 x10E9/L Eosin Abs 0.19 0-0.47 x10E9/L Baso Abs 0.05 0-0.08 x10E9/L Immature Grans (Abs) 0.02 0.00-0.06 x10E9/L NRBC Auto 0 /100 WBC NT-PRO BNP Result Value Ref Range NT-proBNP pg/mL 64.0 <300.0 pg/mL COMPREHENSIVE METABOLIC PANEL Result Value Ref Range Glucose 85 74-106 mg/dL Sodium 140 136-145 mmol/L Potassium 3.5 3.5-5.1 mmol/L Chloride 109 (H) 98-107 mmol/L CO2 27 22-31 mmol/L Calcium 8.2 (L) 8.5-10.1 mg/dL Anion Gap 4 (L) 5-20 mmol/L BUN 8 7-21 mg/dL Creatinine 0.59 0.50-1.30 mg/dL Alk Phos 66 38-126 U/L ALT/SGPT 16 13-61 U/L AST/SGOT 11 5-40 U/L Protein Total 7.0 6.4-8.2 gm/dL Albumin 3.4 3.4-5.0 gm/dL Bili Total 0.3 0.2-1.0 mg/dL eGFR MDRD >60 >60 mL/min/1.73m2 eGFR MDRD AFR AMR >60 >60 mL/min/1.73m2 URINALYSIS ROUTINE W/REFLEX TO CULTURE Result Value Ref Range Color UA Yellow Straw, Yellow, Dark Yellow Clarity UA Clear Specific [place] UA 1.021 1.005-1.030 pH UA 6.5 5.0-8.0 pH Protein UA Negative Negative Blood UA Negative Negative Leukocyte UA 1+ (Abnormal) Negative Nitrite UA Negative Negative Glucose UA Negative Negative Ketone UA Negative Negative Bili UA Negative Negative Urobilinogen UA 0.2 0.1-1.0 EU/dL WBC UA Auto 5-10 (Abnormal) 0-2, 2-5 # /hpf RBC UA Auto 2-5 0-2, 2-5 # /hpf Epithelial Cell UA Auto 2-5 0-2, 2-5 # /hpf Reflex Status Culture to follow HCG URINE QUALITATIVE - POINT OF CARE (IP) Result Value Ref Range HCG Qual Urine Negative Negative QC Verified Yes Yes No orders to display Progress Notes 5:00 PM Initial Plan: Labs and EKG ordered. 5:12 PM I have counseled the patient on the dangers of smoking, the benefits of cessation, and my clear andstrong advice to quit smoking. The patient voices their understanding of the information I have given them. The opportunity for questions was given, and all questions have been answered to satisfaction. The total time counseling the patient was 3-10 minutes. 5:41 PM I reevaluated the patient's medical condition, comfort, and provided a care update. Patient restingcomfortably and feeling better. I discussed the results of diagnostic studies, my clinical impression, and the plan for further treatment with the patient. I had a formal disposition interview with the patient/family to discuss the ED visit and disposition plan. Patient agrees with plan and discharge at this time, all questions addressed. I have given the patient instructions regarding [...] patient verbalized understanding of the discharge instructions. 5:42 PM: At this present time, a medical screening exam has been completed. It is determined that the patient does not have an emergency medical condition and is stable for discharge. ED Course Medical Decision Making I have reviewed the: Previous Chart, Nursing Notes and Vitals. I have interpreted the following results: Labs, 12 Lead EKG and Oxygen Saturation. I have discussed the case with Family/Caregiver (Partner). Orders Placed This Encounter ??? CULTURE URINE ??? CBC W AUTO DIFFERENTIAL ??? NT-PRO BNP ??? COMPREHENSIVE METABOLIC PANEL ??? URINALYSIS ROUTINE W/REFLEX TO CULTURE ??? HCG URINE QUALITATIVE - POINT OF CARE (IP) ??? EKG 12-LEAD ??? naproxen (NAPROSYN) 500 MG tablet ??? cyclobenzaprine (FLEXERIL) 10 MG tablet Clinical Impression Final diagnoses: Dizziness Lumbar strain, initial encounter New Medications: New Prescriptions CYCLOBENZAPRINE (FLEXERIL) 10 MG TABLET Take 1 Tab by mouth 3 times daily as needed for Muscle Spasms NAPROXEN (NAPROSYN) 500 MG TABLET Take 1 Tab by mouth 2 times daily as needed for Pain I have advised the patient to follow-up with: Call in 1 day [facility] [address] [place] [address] Call in 1 day Disposition: Discharged I have reviewed the information recorded by the scribe and agree with its accuracy and contents--Dr. Eber Mariscal MD 03/08/2016 6:06 PM Transcribed by Jerzy Sarkar acting scribe on behalf of Dr. Mariscal. 03/08/2016 4:42 PM documented in this encounter Plan of Treatment Not on file documented as of this encounter Procedures Procedure Name Priority Date/Time Associated Diagnosis Comments CARDIAC EKG ORDER 03/12/2016 3:3 1 PM CDT HCG URINE QUALITATIVE - POINT OF CARE Routine 03/08/2016 5:45 PM CDT EKG 12-LEAD STAT 03/08/2016 5:44 PM CDT Dizziness URINALYSIS REFLEX MICROSCOPIC REFLEX CULTURE STAT 03/08/2016 5:41 PM CDT CULTURE URINE STAT 03/08/2016 5:41 PM CDT NT-PRO BNP STAT 03/08/2016 5:22 PM CDT CBC W AUTO DIFFERENTIAL STAT 03/08/2016 5:22 PM CDT COMPREHENSIVE METABOLIC PANEL STAT 03/08/2016 5:22 PM CDT documented in this encounter Results * CARDIAC EKG ORDER (03/12/2016 3:31 PM CDT) Narrative 03/12/2016 3:31 PM CDT Ordered by an unspecified provider. Scanned Document CARDIAC SERVICES ORD ERABLES * HCG URINE QUALITATIVE - POINT OF CARE (IP) (03/08/2016 5:45 PM CDT) HCG Qual Urine Negative Negative [facility] POCT TESTING QC Verified Yes Yes [facility] POC T TESTING Urine specimen (specimen) URINE / Unknown 03/08/2016 5:45 PM CDT Eber Mariscal MD LAB - POINT OF CARE ORDERABLES [facility] POCT TESTING [address] [place] [address] * EKG 12-LEAD (03/08/2016 5:44 PM CDT) Ventricular Rate 70 BPM [facility] MUSE Atrial Rate 70 BPM [facility] MUSE P-R Interval 154 ms [facility] MUSE QRS Duration ms 74 ms [facility] MUSE Q-T Interval ms 388 ms [facility] MUSE QTC Calculation (Bezet) 419 ms [facility] MUSE Calculated P [place] 38 degrees [facility] MUSE Calculated R [place] 32 degrees [facility] MUSE Calculated T [place] 20 degrees [facility] MUSE Interpretation EKG NORMAL SINUS RHYTHM NORMAL ECG Confirmed by MD Destini, Tj ([id number]) on 03/09/2016 8:00:26 AM [facility] MUSE 03/08/2016 5:44 PM CDT 03/09/2016 8:00 AM CDT Eber Mariscal MD ECG ORDERABLES Performing Organization Address [facility] Co de Phone Number [facility] MUSE * CULTURE URINE (03/08/2016 5:41 PM CDT) Culture <10,000 CFU/mL urogenital marco CHRYSTAL 03/10/2016 11:54 AM CDT [facility] MICROBIOLOGY Urine URINE SPECIMEN OBTAINED BY CLEAN CATCH PROCEDURE / Unknown 03/08/2016 5:41 PM CDT 03/08/2016 5:53 PM CDT Eber Mariscal MD LAB - MICROBIOLOGY O RDERABLES Performing Organization Address [facility] Co de Phone Number [facility] MICROBIOLOGY [address] [place], [address] [phone] * (ABNORMAL) URINALYSIS ROUTINE W/REFLEX TO CULTURE (03/08/2016 5:41 PM CDT) Color UA Yellow Straw, Yellow, Dark Yellow 03/08/2016 6:05 PM CDT [facility] Clarity UA Clear 03/08/2016 6:05 PM CDT [facility] Specific [place] UA 1.021 1.005 - 1.030 03/08/2016 6:05 PM CDT [facility] pH UA 6.5 5.0 - 8.0 pH 03/08/2016 6:05 PM CDT [facility] Protein UA Negative Negative 03/08/2016 6:05 PM CDT [facility] Blood UA Negative Negative 03/08/2016 6:05 PM CDT [facility] Leukocyte UA 1+(A) Negative 03/08/2016 6:05 PM CDT [facility] Nitrite UA Negative Negative 03/08/2016 6:05 PM CDT [facility] Glucose UA Negative Negative 03/08/2016 6:05 PM CDT [facility] Ketone UA Negative Negative 03/08/2016 6:05 PM CDT [facility] Bilirubin UA Negative Negative 03/08/2016 6:05 PM CDT [facility] Urobilinogen UA 0.2 0.1 - 1.0 EU/dL 03/08/2016 6:05 PM CDT [facility] WBC UA Auto 5-10(A) 0-2, 2-5 # /hpf 03/08/2016 6:05 PM CDT [facility] RBC UA Auto 2-5 0-2, 2-5 # /hpf 03/08/2016 6:05 PM CDT [facility] Epithelial Cell UA Auto 2-5 0-2, 2-5 # /hpf 03/08/2016 6:05 PM CDT [facility] Reflex Status Culture to follow 03/08/2016 6:05 PM T [facility] Urine URINE SPECIMEN OBTAINED BY CLEAN CATCH PROCEDURE / Unknown 03/08/2016 5:41 PM CDT 03/08/2016 5:53 PM CDT Eber Mariscal MD LAB - URINALYSIS ORD ERABLES [facility] [address] [place] [address] * (ABNORMAL) COMPREHENSIVE METABOLIC PANEL (03/08/2016 5:22 PM CDT) Glucose 85 74 - 106 mg/dL 03/08/2016 5:47 PM CDT [facility] Sodium 140 136 - 145 mmol/L 03/08/2016 5:47 PM CDT [facility] Potassium 3.5 3.5 - 5.1 mmol/L 03/08/2016 5:47 PM CDT [facility] Chloride 109(H) 98 - 107 mmol/L 03/08/2016 5:47 PM CDT [facility] CO2 27 22 - 31 mmol/L 03/08/2016 5:47 PM CDT [facility] Calcium 8.2(L) 8.5 - 10.1 mg/dL 03/08/2016 5:47 PM CDT [facility] Anion Gap 4(L) 5 - 20 mmol/L 03/08/2016 5:47 PM CDT [facility] BUN 8 7 - 21 mg/dL 03/08/2016 5:47 PM CDT [facility] Creatinine 0.59 0.50 - 1.30 mg/dL 03/08/2016 5:47 PM CDT [facility] Alkaline Phosphatase 66 38 - 126 U/L 03/08/2016 5:47 PM CDT [facility] ALT 16 13 - 61 U/L 03/08/2016 5:47 PM CDT [facility] Comment:See reference range update AST 11 5 - 40 U/L 03/08/2016 5:47 PM CDT [facility] Protein Total 7.0 6.4 - 8.2 gm/dL 03/08/2016 5:47 PM CDT [facility] Albumin 3.4 3.4 - 5.0 gm/dL 03/08/2016 5:47 PM CDT [facility] Bilirubin Total 0.3 0.2 - 1.0 mg/dL 03/08/2016 5:47 PM CDT [facility] eGFR by MDRD >60 >60 mL/min/1.7 3m2 03/08/2016 5:47 PM CDT [facility] eGFR by MDRD >60 >60 mL/min/1.7 3m2 03/08/2016 5:47 PM CDT [facility] Blood BLOOD SPECIMEN / Unknown 03/08/2016 5:22 PM CDT 03/08/2016 5:28 PM CDT Eber Mariscal MD LAB - CHEMISTRY JOANNA YUNG [facility] Organization Address City/State/ZIP Co de Phone Number [facility] [address] [place] [address] * NT-PRO BNP (03/08/2016 5:22 PM CDT) NT-proBNP 64.0 <300.0 pg/mL 03/08/2016 5:50 PM CDT [facility] Blood BLOOD SPECIMEN / Unknown 03/08/2016 5:22 PM CDT 03/08/2016 5:28 PM CDT Narrative [facility] - 03/08/2016 5:50 PM CDT NT-proBNP Patient Age ? Acute HF Unlikely ? Acute HF Likely <50 years ? <300 pg/mL ? >450 pg/mL 50-75 years ?<300 pg/mL ? >900 pg/mL >75 years ? <300 pg/mL ? >1800 pg/mL Reference: PATRICIO Connell et al. ICON Study. Heart Journal (2006) [...] fibrillation. Eber Mariscal MD [facility] Organization Address City/State/ZIP Co de Phone Number [facility] [address] [place] [address] * (ABNORMAL) CBC W AUTO DIFFERENTIAL (03/08/2016 5:22 PM CDT) [facility] WBC 6.2 4.4 - 10.7 x10E9/L 03/08/2016 5:30 PM CDT [facility] WBC Corrected x10E9/L 03/08/2016 5:30 PM CDT [facility] RBC 4.34 3.80 - 5.20 x10E12/L 03/08/2016 5:30 PM CDT [facility] Hemoglobin 11.0(L) 12.0 - 15.6 gm/dL 03/08/2016 5:30 PM CDT [facility] Hematocrit 33.2(L) 35.9 - 45.5 % 03/08/2016 5:30 PM CDT [facility] MCV 76.5(L) 80.7 - 98.3 fl 03/08/2016 5:30 PM CDT [facility] MCH 25.3(L) 26.7 - 34.0 pg 03/08/2016 5:30 PM CDT [facility] MCHC 33.1 30.8 - 35.9 gm/dL 03/08/2016 5:30 PM CDT [facility] Platelet Count 358 153 - 416 x10E9/L 03/08/2016 5:30 PM T [facility] RDW-CV 17.2(H) 12.1 - 14.9 % 03/08/2016 5:30 PM CDT [facility] MPV 9.5 9.4 - 12.9 fl 03/08/2016 5:30 PM CDT [facility] Neutrophils % 51.7 44.0 - 73.0 % 03/08/2016 5:30 PM [facility] Lymphocytes % 34.2 20.0 - 43.0 % 03/08/2016 5:30 PM CDT [facility] Monocytes % 10.0 5.0 - 13.0 % 03/08/2016 5:30 PM CDT [facility] Eosinophils % 3.0 0.0 - 6.0 % 03/08/2016 5:30 PM CDT [facility] Basophils % 0.8 0.0 - 2.0 % 03/08/2016 5:30 PM CDT [facility] Immature Granulocytes 0.3 0 - 1 % 03/08/2016 5:30 [facility] Neutrophil Absolute 3.22 2.01 - 7.14 x10E9/L 03/08/2016 5:30 PM CDT [facility] Lymphocytes Absolute 2.13 1.07 - 3.94 x10E9/L 03/08/2016 5:30 PM CDT [facility] Monocytes Absolute 0.62 0.26 - 1.07 x10E9/L 03/08/2016 5:30 PM CDT [facility] Eosinophils Absolute 0.19 0 - 0.47 x10E9/L 03/08/2016 5:30 PM CDT [facility] Basophils Absolute 0.05 0 - 0.08 x10E9/L 03/08/2016 5:30 PM CDT [facility] Immature Granulocytes Absolute 0.02 0.00 - 0.06 x10E9/L 03/08/2016 5:30 PM CDT [facility] nRBC Auto 0 /100 WBC 03/08/2016 5:30 PM CDT [facility] Blood BLOOD SPECIMEN / Unknown 03/08/2016 5:22 PM CDT 03/08/2016 5:28 PM CDT Eber Mariscal MD LAB - HEMATOLOGY ORD ERABLES Performing Organization Address City/State/[facility] Co de Phone Number [facility] [address] [place] [address] documented in this encounter Visit Diagnoses Diagnosis Dizziness Dizziness and giddiness Lumbar strain, initial encounter documented in this encounter
--- OUTSIDE RECORDS SUMMARY | 2024-09-25 11:51 | XMS_ITS | Encounter Summary ---
Author Organization [facility] Address [address] [place] [address] Care Team Providers Care Hot Strip Finisher Name Role Phone Unavailable Primary Care Provider Unavailabl e Reason for Visit * Reason Comments Pain Urinary UTI symptoms with va g discharge and odor for one week Encounter Details Date Type Department Care Team (Late st Contact Info) Description 09/30/2015 11:18 AM COMMUNITY HEALTH EDUCATOR - 09/30/2015 1:36 PM COMMUNITY HEALTH EDUCATOR Emergency ER at [facility] [address] [place] [address] [id number] Sterling Licona MD THE [address] [place] [address] Vaginal discharge; Screen for STD (sexually transmitted disease) Discharge Disposition: Home or Self Care Social [...] Sign Reading Time Taken Comments Blood Pressure 135/83 09/30/2015 11:19 AM COMMUNITY HEALTH EDUCATOR Pulse 103 09/30/2015 11:19 AM COMMUNITY HEALTH EDUCATOR Temperature 37.1 ??C (98.7 ??F) 09/30/2015 11:[address] Respiratory Rate 14 09/30/2015 11:19 AM COMMUNITY HEALTH EDUCATOR Oxygen Saturation 100% 09/30/2015 11:19 AM COMMUNITY HEALTH EDUCATOR Inhaled Oxygen Concentration - - Weight - - Height 162.6 cm (5' 4.02 ) 09/30/2015 11:[address] Body Mass Index - - documented in [...] Discharge Instructions * Discharge Instructions* Mariah Casas, CULTURAL HISTORIAN-DINKEY OPERATOR SLATE - 09/30/2015 1:11 PM COMMUNITY HEALTH EDUCATOR Images from the original note were not included. Health Maintenance Adopting a healthy lifestyle and getting preventive care can go a long way to promote health and wellness. Talk with your health care provider about what schedule of regular examinations is right foryou. This is a good chance for you to check in with your provider about disease prevention and staying healthy. In between checkups, there are plenty of things you can do on your own. Experts have done a lot of research about which lifestyle changes and preventive measures are most likely to keep you healthy. Ask your health care provider for more information. WEIGHT AND DIET Eat a healthy diet ?? Be sure to include plenty of vegetables, fruits, low-fat dairy products, and lean protein. ?? Do not eat a lot of foods high in solid fats, added sugars, or salt. ?? Get regular exercise. This is one of the most important things you can do for your health. 1. Most adults should exercise for at least 150 minutes each week. The exercise should increase your heart rate and make you sweat (moderate-intensity exercise). 2. Most adults should also do strengthening exercises at least twice a week. This is in addition tothe moderate-intensity exercise. ?? Maintain a healthy weight ?? Body mass index (BMI) is a measurement that can be used to identify possible weight problems. Itestimates body fat based on height and weight. Your health care provider can help determine your BMI and help you achieve or maintain a healthy weight. ?? For females 20 years of age and older: ?? 1. A BMI below 18.5 is considered underweight. 2. A BMI of 18.5 to 24.9 is normal. 3. A BMI of 25 to 29.9 is considered overweight. 4. A BMI of 30 and above is considered obese. ?? Watch levels of cholesterol and blood lipids ?? You should start having your blood tested for lipids and cholesterol at 20 years of age, then have this test every 5 years. ?? You may need to have your cholesterol levels checked more often if: 1. Your lipid or cholesterol levels are high. 2. You are older than 50 years of age. 3. You are at high risk for heart disease. ?? CANCER SCREENING ? Lung Cancer ?? Lung cancer screening is recommended for adults 55-80 years old who are at high risk for lung cancer because of a history of smoking. ?? A yearly low-dose CT scan of the lungs is recommended for people who: 1. Currently smoke. 2. Have quit within the past 15 years. 3. Have at least a [id number] history of smoking. A pack year is smoking an average of one pack of cigarettes a day for 1 year. ?? Yearly screening should continue until it has been 15 years since you quit. ?? Yearly screening should stop if you develop a health problem that would prevent you from having lung cancer treatment. ?? Breast Cancer ?? Practice breast self-awareness. This means understanding how your breasts normally appear and feel. ?? It also means doing regular breast self-exams. Let your health care provider know about any changes, no matter how small. ?? If you are in your 20s or 30s, you should have a clinical breast exam (CBE) by a health care provider every 1-3 years as part of a regular health exam. ?? If you are 40 or older, have a CBE every year. Also consider having a breast X-ray (mammogram) every year. ?? If you have a family history of breast cancer, talk to your health care provider about genetic screening. ?? If you are at high risk for breast cancer, talk to your health care provider about having an MRIand a mammogram every year. ?? Breast cancer gene (BRCA) assessment is recommended for women who have family members with BRCA-related cancers. BRCA-related cancers include: 1. Breast. 2. Ovarian. 3. Tubal. 4. Peritoneal cancers. ?? Results of the assessment will determine the need for genetic counseling and BRCA1 and BRCA2 testing. Cervical Cancer Routine pelvic examinations to screen for cervical cancer are no longer recommended for nonwomen who are considered low risk for cancer of the pelvic organs (ovaries, uterus, and vagina) andwho do not have symptoms. A pelvic examination may be necessary if you have symptoms including those associated with pelvic infections. Ask your health care provider if a screening pelvic exam is right for you. ?? The Pap test is the screening test for cervical cancer for women who are considered at risk. 1. If you had a hysterectomy for a problem that was not cancer or a condition that could lead to cancer, then you no longer need Pap tests. 2. If you are older than 65 years, and you have had normal Pap tests for the past 10 years, you no longer need to have Pap tests. 3. If you have had past treatment for cervical cancer or a condition that could lead to cancer, youneed Pap tests and screening for cancer for at least 20 years after your treatment. 4. If you no longer get a Pap test, assess your risk factors if they change (such as having a new sexual partner). This can affect whether you should start being screened again. 5. Some women have medical problems that increase their chance of getting cervical cancer. If this is the case for you, your health care provider may recommend more frequent screening and Pap tests. ?? The human papillomavirus (HPV) test is another test that may be used for cervical cancer screening. The HPV test looks for the virus that can cause cell changes in the cervix. The cells collected during the Pap test can be tested for HPV. 1. The HPV test can be used to screen women 30 years of age and older. Getting tested for HPV can extend the interval between normal Pap tests from three to five years. 2. An HPV test also should be used to screen women of any age who have unclear Pap test results. 3. After 30 years of age, women should have HPV testing as often as Pap tests. ?? Colorectal Cancer ?? This type of cancer can be detected and often prevented. ?? Routine colorectal cancer screening usually begins at 50 years of age and continues through 75 years of age. ?? Your health care provider may recommend screening at an earlier age if you have risk factors forcolon cancer. ?? Your health care provider may also recommend using home test kits to check for hidden blood in the stool. ?? A small camera at the end of a tube can be used to examine your colon directly (sigmoidoscopy orcolonoscopy). This is done to check for the earliest forms of colorectal cancer. ?? Routine screening usually begins at age 50. ?? Direct examination of the colon should be repeated every 5-10 years through 75 years of age. However, you may need to be screened more often if early forms of precancerous polyps or small growths are found. Skin Cancer ?? Check your skin from head to toe regularly. ?? Tell your health care provider about any new moles or changes in moles, especially if there is achange in a mole's shape or color. ?? Also tell your health care provider if you have a mole that is larger than the size of a pencil eraser. ?? Always use sunscreen. Apply sunscreen liberally and repeatedly throughout the day. ?? Protect yourself by wearing long sleeves, pants, a wide-brimmed hat, and sunglasses whenever youare outside. HEART DISEASE, DIABETES, AND HIGH BLOOD PRESSURE ?? Have your blood pressure checked at least every 1-2 years. High blood pressure causes heart disease and increases the risk of stroke. ?? If you are between 55 years and 79 years old, ask your health care provider if you should take aspirin to prevent strokes. ?? Have regular diabetes screenings. This involves taking a blood sample to check your fasting blood sugar level. ?? If you are at a normal weight and have a low risk for diabetes, have this test once every three years after 45 years of age. ?? If you are overweight and have a high risk for diabetes, consider being tested at a younger age or more often. PREVENTING INFECTION Hepatitis B ?? If you have a higher risk for hepatitis B, you should be screened for this virus. You are considered at high risk for hepatitis B if: ?? You were born in a country where hepatitis B is common. Ask your health care provider which countries are considered high risk. ?? Your parents were born in a high-risk country, and you have not been immunized against hepatitisB (hepatitis B vaccine). ?? You have HIV or AIDS. ?? You use needles to inject street drugs. ?? You live with someone who has hepatitis B. ?? You have had sex with someone who has hepatitis B. ?? You get hemodialysis treatment. ?? You take certain medicines for conditions, including cancer, organ transplantation, and autoimmune conditions. Hepatitis C ?? Blood testing is recommended for: ?? Everyone born from 1945 through 1965. ?? Anyone with known risk factors for hepatitis C. Sexually transmitted infections (STIs) ?? You should be screened for sexually transmitted infections (STIs) including gonorrhea and chlamydia if: ?? You are sexually active and are younger than 24 years of age. ?? You are older than 24 years of age and your health care provider tells you that you are at risk for this type of infection. ?? Your sexual activity has changed since you were last screened and you are at an increased risk for chlamydia or gonorrhea. Ask your health care provider if you are at risk. ?? If you do not have HIV, but are at risk, it may be recommended that you take a prescription medicine daily to prevent HIV infection. This is called pre- exposure prophylaxis (PrEP). You are considered at risk if: ?? You are sexually active and do not regularly use condoms or know the HIV status of your partner(s). ?? You take drugs by injection. ?? You are sexually active with a partner who has HIV. Talk with your health care provider about whether you are at high risk of being infected with HIV. If you choose to begin PrEP, you should first be tested for HIV. You should then be tested every 3 months for as long as you are taking PrEP. ?? If you are premenopausal and you may become , ask your health care provider about preconception counseling. ?? If you may become , take 400 to 800 micrograms (mcg) of folic acid every day. ?? If you want to prevent , talk to your health care provider about control (contraception). OSTEOPOROSIS AND MENOPAUSE ?? Osteoporosis is a disease in which the bones lose minerals and strength with aging. This can result in serious bone fractures. Your risk for osteoporosis can be identified using a bone density scan. ?? If you are 65 years of age or older, or if you are at risk for osteoporosis and fractures, ask your health care provider if you should be screened. ?? Ask your health care provider whether you should take a calcium or vitamin D supplement to loweryour risk for osteoporosis. ?? Menopause may have certain physical symptoms and risks. ?? Hormone replacement therapy may reduce some of these symptoms and risks. Talk to your health care provider about whether hormone replacement therapy is right for you. HOME CARE INSTRUCTIONS ?? Schedule regular health, dental, and eye exams. ?? Stay current with your immunizations. ? Do not use any tobacco products including cigarettes, chewing tobacco, or electronic cigarettes. ?? If you are , do not drink alcohol. ?? If you are , limit how much and how often you drink alcohol. ?? Limit alcohol intake to no more than 1 drink per day for non women. One drink equals 12 ounces of beer, 5 ounces of wine, or 1?? ounces of hard liquor. ?? Do not use street drugs. ?? Do not share needles. ?? Ask your health care provider for help if you need support or information about quitting drugs. ?? Tell your health care provider if you often feel depressed. ?? Tell your health care provider if you have ever been abused or do not feel safe at home. Document Released: 03/08/2012 Document Revised: 01/08/2015 Document Reviewed: 07/26/2014 ExitCare?? Patient Information ??2015 [employer]. This information is not intended to replace advice given to you by your health care provider. Make sure you discuss any questions you have with your health care provider. Bacterial Vaginosis Bacterial vaginosis (BV) is a vaginal infection where the normal balance of bacteria in the vagina is disrupted. The normal balance is then replaced by an overgrowth of certain bacteria. There are several different kinds of bacteria that can cause BV. BV is the most common vaginal infection in women of childbearing age. CAUSES ?? The cause of BV is not fully understood. BV develops when there is an increase or imbalance of harmful bacteria. ?? Some activities or behaviors can upset the normal balance of bacteria in the vagina and put women at increased risk including: ?? Having a new sex partner or multiple sex partners. ?? Douching. ?? Using an intrauterine device (IUD) for contraception. ?? It is not clear what role sexual activity plays in the development of BV. However, women that have never had sexual intercourse are rarely infected with BV. Women do not get BV from toilet seats, bedding, swimming pools or from touching objects around them. SYMPTOMS ?? Casey vaginal discharge. ?? A fish-like odor with discharge, especially after sexual intercourse. ?? Itching or burning of the vagina and vulva. ?? Burning or pain with urination. ?? Some women have no signs or symptoms at all. DIAGNOSIS Your caregiver must examine the vagina for signs of BV. Your caregiver will perform lab tests and look at the sample of vaginal fluid through a microscope. They will look for bacteria and abnormal cells (clue cells), a pH test higher than 4.5, and a positive amine test all associated with BV. RISKS AND COMPLICATIONS ?? Pelvic inflammatory disease (PID). ?? Infections following gynecology surgery. ?? Developing HIV. ?? Developing herpes virus. TREATMENT Sometimes BV will clear up without treatment. However, all women with symptoms of BV should be treated to avoid complications, especially if gynecology surgery is planned. Male partners generally do not need to be treated. However, BV may spread between female sex partners so treatment is helpful in preventing a recurrence of BV. ?? BV may be treated with antibiotics. The antibiotics come in either pill or vaginal cream forms. Either can be used with non or women, but the recommended dosages differ. These antibiotics are not harmful to the baby. ?? BV can recur after treatment. If this happens, a second round of antibiotics will often be prescribed. ?? Treatment is important for women. If not treated, BV can cause a premature delivery, especially for a woman who had a premature in the past. All women who have symptoms of BV should be checked and treated. ?? For chronic reoccurrence of BV, treatment with a type of prescribed gel vaginally twice a week is helpful. HOME CARE INSTRUCTIONS ?? Finish all medication as directed by your caregiver. ?? Do not have sex until treatment is completed. ?? Tell your sexual partner that you have a vaginal infection. They should see their caregiver and be treated if they have problems, such as a mild rash or itching. ?? Practice safe sex. Use condoms. Only have 1 sex partner. PREVENTION Basic prevention steps can help reduce the risk of upsetting the natural balance of bacteria in thevagina and developing BV: ?? Do not have sexual intercourse (be abstinent). ?? Do not douche. ?? Use all of the medicine prescribed for treatment of BV, even if the signs and symptoms go away. ?? Tell your sex partner if you have BV. That way, they can be treated, if needed, to prevent reoccurrence. SEEK MEDICAL CARE IF: ?? Your symptoms are not improving after 3 days of treatment. ?? You have increased discharge, pain, or fever. MAKE SURE YOU: ?? Understand these instructions. ?? Will watch your condition. ?? Will get help right away if you are not doing well or get worse. FOR MORE INFORMATION Division of STD Prevention (DSTDP), Centers for Disease Control and Prevention: www.cdc.gov/std [employer] ([employer]): www.ashastd.org Document Released: 08/24/2006 Document Revised: 11/15/2012 Document Reviewed: 02/14/2010 ExitCare?? Patient Information ??2013 [employer]. UNITY HEALTH EDUCATOR documented in this encounter Medications at Time of Discharge Medication Sig Dispensed Refills Start Date End Date albuterol HFA (PROVENTIL;VENTOLIN;PROAI R) 108 (90 BASE) MCG/ACT inhaler Inhale 2 Puffs by mouth every 6 hours as needed. 10/30/2015 metroNIDAZOLE (FLAGYL) 500 MG tablet Take 1 Tab by mouth 2 times daily for 7 days 14 Tab 0 09/30/2015 10/07/2015 naproxen sodium (ANAPROX DS) 550 MG tablet Take 1 Tab by mouth 2 times daily as needed for Pain 20 Tab 0 04/17/2015 10/30/2015 documented as of this encounter ED Notes * Margaux Rojas RN - 09/30/2015 1:12 PM CST Pt discharged per Mariah Casas HAM CLERK UNITY HEALTH EDUCATOR * Margaux Rojas RN - 09/30/2015 11:47 AM CST Pt states white vaginal discharge x 1 week, no itching denies urinary pain or symptoms. UNITY HEALTH EDUCATOR * Mariah Casas Shay, CULTURAL HISTORIAN-DINKEY OPERATOR [facility]ATE - 09/30/2015 11:29 AM CST Provider contact with the patient: 09/30/2015 11:29 Jumana Rivers [id number] [facility] EMERGENCY DEPARTMENT History Chief Complaint Patient presents with ??? Pain Urinary UTI symptoms with vag discharge and odor for one week HPI Comments: Jumana Rivers is a 25 y.o.female presenting to the ED complaining of vaginal pain and discharge that began one week ago. Her vaginal pain is constant and worsening. She describes it as irritating and rates it as a 6/10 in severity. She denies itching, lesions, or sores. Associated with white vaginal discharge of an unpleasant odor. Patient denies urinary symptoms, including dysuria, hematuria, urgency, and frequency. Patient states that she is sexually active with one male partner. Patient has an IUD and does not use protection with every encounter. 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 Patient has regular menstrual cycles. History of two uncomplicated vaginal births and Chlamydia. Past Medical History Diagnosis Date ??? Asthma [...] Negative for fever and chills. HENT: Negative. Negative for congestion and sore throat. Eyes: Negative. Negative for blurred vision, double vision and photophobia. Respiratory: Negative. Negative for cough, shortness of breath and wheezing. Cardiovascular: Negative. Negative for chest pain, palpitations, orthopnea and leg swelling. Gastrointestinal: Negative. Negative for nausea, vomiting, abdominal pain, diarrhea and constipation. Genitourinary: Negative for dysuria, urgency, frequency and hematuria. + Vaginal Pain + Vaginal Discharge - Vaginal itching Musculoskeletal: Negative. Negative for back pain, joint pain and neck pain. Skin: Negative. Negative for itching and rash. Neurological: Negative. Negative for dizziness, focal weakness, loss of consciousness and headaches. Endo/Heme/Allergies: Negative. Negative for polydipsia. Psychiatric/Behavioral: Negative. Negative for depression, suicidal ideas and substance abuse. All other systems reviewed and are negative. Physical Exam BP 135/83 mmHg Pulse 103 Temp(Src) 98.7 ??F Resp 14 Ht 1.626 m (5' 4.02 ) SpO2 100% Patient Vitals for the past 24 hrs: Temp Pulse Resp BP SpO2 09/30/15 1119 98.7 ??F 103 14 135/83 mmHg 100 % Physical Exam Constitutional: She is oriented to person, place, and time. Vital signs are normal. She appears well-developed and well-nourished. HENT: Head: Normocephalic and atraumatic. Right Ear: External ear normal. Left Ear: External ear normal. Nose: Nose normal. Mouth/Throat: Oropharynx is clear and moist. Eyes: Conjunctivae, EOM and lids are normal. Pupils are equal, round, and reactive to light. Right eye exhibits no discharge. Left eye exhibits no discharge. No scleral icterus. Neck: Trachea normal, normal range of motion and full passive range of motion without pain. Neck supple. Cardiovascular: Normal rate, regular rhythm, normal heart sounds and normal pulses. Pulmonary/Chest: Effort normal and breath sounds normal. No tachypnea. No respiratory distress. Shehas no wheezes. She has no rales. Abdominal: Soft. Normal appearance and bowel sounds are normal. She exhibits no distension. There is no tenderness. There is no guarding. Genitourinary: Pelvic Exam: > No labial lesions or erythema > IUD strings noted > No erythema > Large amount of thick white discharge +odor > Cervix normal > No adnexal tenderness Musculoskeletal: Normal range of motion. She exhibits no edema or tenderness. Lymphadenopathy: She has no cervical adenopathy. Neurological: She is alert and oriented to person, place, and time. She exhibits normal muscle tone. GCS eye subscore is 4. GCS verbal subscore is 5. GCS motor subscore is 6. Skin: Skin is warm, dry and intact. No rash noted. She is not diaphoretic. No pallor. Psychiatric: She has a normal mood and affect. Her behavior is normal. Nursing note and vitals reviewed. Medications Current Outpatient Prescriptions Medication Sig Dispense Refill ??? metroNIDAZOLE (FLAGYL) 500 MG tablet Take 1 Tab by mouth 2 times daily for 7 days 14 Tab 0 ??? naproxen sodium (ANAPROX DS) 550 MG tablet Take 1 Tab by mouth 2 times daily as needed for Pain20 Tab 0 ??? albuterol HFA (PROVENTIL;VENTOLIN;PROAIR) 108 (90 BASE) MCG/ACT inhaler Inhale 2 Puffs by mouthevery 6 hours as needed. Procedures Procedures ECG Interpretation ECG Interpretation Lab Interpretation Oxygen Saturation Interpretation The oxygen saturation level is: 100%. The patient was on Room Air for the saturation measurement. Oxygen saturation interpretation is Normal. Hospital Encounter on 09/30/15 TRICHOMONAS RAPID TEST Result Value Ref Range Trichomonas Rapid Test Negative Negative URINALYSIS ROUTINE W/REFLEX TO CULTURE Result Value Ref Range Color UA Yellow Straw, Yellow, Dark Yellow Clarity UA Cloudy Specific [place] UA 1.023 1.005-1.030 pH UA 7.0 5.0-8.0 pH Protein UA Negative Negative Blood UA Negative Negative Leukocyte UA 1+ (Abnormal) Negative Nitrite UA Negative Negative Glucose UA Negative Negative Ketone UA Negative Negative Bili UA Negative Negative Urobilinogen UA 1.0 0.1-1.0 EU/dL WBC UA Auto 2-5 0-2, 2-5 # /hpf RBC UA Auto 2-5 0-2, 2-5 # /hpf Epithelial Cell UA Auto 5-10 (Abnormal) 0-2, 2-5 # /hpf Hyaline Casts UA Auto 2-5 (Abnormal) 0-2 #/lpf Reflex Status Culture to follow HCG URINE QUALITATIVE - POINT OF CARE (IP) Result Value Ref Range HCG Qual Urine Negative Negative QC Verified Yes Yes No orders to display Progress Notes 11:29 AM Initial Assessment: The patient was made aware of the plan to order labs (including Chlamydia, Trich, UA, HCG). Patient understands and agrees with the plan. The patient reports that she would rather wait for treatment for STDs pending the testing findings.She reports that she has symptoms c/w Bacterial Vaginosis and would like to be treated for this. Exam findings today are c/w Bacterial Vaginosis but could also represent the presence of STDs. I have advised the patient to take the medications as prescribed, abstain from sexual activity until symptoms are resolved/ testing returns with treatment completed. She is aware that partners have to be notified /treated for positive findings. 12:30 PM: Pelvic exam performed, patient tolerated well without any immediate complications. 1:11 PM: Patient does not want to be treated for STD's. She will be treated with Flagyl for BV and discharged home. Patient will wait for results and return for treatment if positive. Agreeable with plan. I have given the patient instructions regarding [...] verbalized understanding of the discharge instructions. BP 135/83 mmHg Pulse 103 Temp(Src) 98.7 ??F Resp 14 Ht 1.626 m (5' 4.02 ) SpO2 100% ED Course Medical Decision Making I have reviewed the: Previous Chart, Nursing Notes and Vitals. I have interpreted the following results: Labs and Oxygen Saturation. Orders Placed This Encounter ??? CHLAMYDIA + GC AMPLIFIED PROBE ??? TRICHOMONAS RAPID TEST ??? CULTURE URINE ??? URINALYSIS ROUTINE W/REFLEX TO CULTURE ??? HCG URINE QUALITATIVE - POINT OF CARE (IP) ??? metroNIDAZOLE (FLAGYL) tablet 500 mg ??? metroNIDAZOLE (FLAGYL) 500 MG tablet Clinical Impression Final diagnoses: Vaginal discharge Screen for STD (sexually transmitted disease) New Medications: Discharge Medication List as of 09/30/2015 1:12 PM START taking these medications Details metroNIDAZOLE (FLAGYL) 500 MG tablet Disp-14 Tab, R-0, Take 1 Tab by mouth 2 times daily for 7 days, Print I have advised the patient to follow-up with: [facility] [id number] [facility] [id number] In 1 day As needed Disposition: Discharged I have reviewed the information recorded by the scribe and agree with its accuracy and contents--Carter Casas 09/30/2015 12:00 PM Transcribed by Loyda Gibson acting scribe on behalf of HAM CLERK Mariah Casas 09/30/2015 11:29 AM UNITY HEALTH EDUCATOR documented in this encounter Plan of Treatment Not on file documented as of this encounter Procedures Procedure Name Priority Date/Time Associated Diagnosis Comments TRICHOMONAS RAPID TEST STAT 09/30/2015 12:50 PM COMMUNITY HEALTH EDUCATOR CHLAMYDIA + GC AMPLIFIED PROBE STAT 09/30/2015 12:50 PM COMMUNITY HEALTH EDUCATOR HCG URINE QUALITATIVE - POINT OF CARE Routine 09/30/2015 11:56 AM COMMUNITY HEALTH EDUCATOR URINALYSIS REFLEX MICROSCOPIC REFLEX CULTURE STAT 09/30/2015 11:43 AM COMMUNITY HEALTH EDUCATOR CULTURE URINE STAT 09/30/2015 11:43 AM COMMUNITY HEALTH EDUCATOR documented in this encounter Results * TRICHOMONAS RAPID TEST (09/30/2015 12:50 PM COMMUNITY HEALTH EDUCATOR) Trichomonas Rapid Test Negative Negative 09/30/2015 1:09 PM COMMUNITY HEALTH EDUCATOR [facility] Microbiology ENTIRE VAGINA / Unknown 09/30/2015 12:50 PM COMMUNITY HEALTH EDUCATOR 09/30/2015 12:56 PM COMMUNITY HEALTH EDUCATOR Mariah Casas CULTURAL HISTORIAN-DINKEY OPERATOR [facility] - MICROBIOL OGY ORDERABLES [facility] [address] [place], [place] [id number] * CHLAMYDIA + GC AMPLIFIED PROBE (09/30/2015 12:50 PM COMMUNITY HEALTH EDUCATOR) Chlamydia Amplified Probe Negative Negative 10/01/2015 12:40 PM COMMUNITY HEALTH EDUCATOR [facility] GC Amplified Probe Negative Negative 10/01/2015 12:40 PM COMMUNITY HEALTH EDUCATOR [facility] Microbiology ENTIRE ENDOCERVIX / Unknown 09/30/2015 12:50 PM COMMUNITY HEALTH EDUCATOR 09/30/2015 12:56 PM COMMUNITY HEALTH EDUCATOR Narrative [facility] - 10/01/2015 12:40 PM COMMUNITY HEALTH EDUCATOR Results based on detection/no detection of ribosomal RNA by amplified method. Mariah [facility] - MICROBIOL OGY ORDERABLES Performing Organization Address City/[facility]/ZIP Co de Phone Number [facility] [address] [place] [address], [facility] [phone] * HCG URINE QUALITATIVE - POINT OF CARE (IP) (09/30/2015 11:56 AM COMMUNITY HEALTH EDUCATOR) Pathologist [facility] HCG Qual Urine Negative Negative [facility] POCT TEST[facility] QC Verified Yes Yes [facility] POC T TESTING Urine specimen (specimen) URINE / Unknown 09/30/2015 11:56 AM COMMUNITY HEALTH EDUCATOR [facility]iah [facility]as [facility] - POINT OF CARE ORDERABLES Performing Organization Address [facility] Co de Phone Number [facility] POCT TESTING [address] [place] [address], [facility] [phone] * CULTURE URINE (09/30/2015 11:43 AM COMMUNITY HEALTH EDUCATOR) Pathologist [facility] Culture More than 2 organisms seen at >=10,000 CFU/mL. Recollect if clinically indicated. CHRYSTAL 10/01/2015 11:45 AM COMMUNITY HEALTH EDUCATOR [facility] Urine URINE SPECIMEN OBTAINED BY CLEAN CATCH PROCEDURE / Unknown 09/30/2015 11:43 AM COMMUNITY HEALTH EDUCATOR 09/30/2015 11:46 AM COMMUNITY HEALTH EDUCATOR Mariah Casas [facility] - MICROBIOL OGY ORDERABLES Performing Organization Address City/[facility] Co de Phone Number [facility] [address] [place] [address], [facility] [phone] * (ABNORMAL) URINALYSIS ROUTINE W/REFLEX TO CULTURE (09/30/2015 11:43 AM COMMUNITY HEALTH EDUCATOR) Color UA Yellow Straw, Yellow, Dark Yellow 09/30/2015 11:[address] [facility] Clarity UA Cloudy 09/30/2015 11:[address] [facility] Specific [place] UA 1.023 1.005 - 1.030 09/30/2015 11:[address] [facility] pH UA 7.0 5.0 - 8.0 pH 09/30/2015 11:[address] [facility] Protein UA Negative Negative 09/30/2015 11:[address] [facility] Blood UA Negative Negative 09/30/2015 11:[address] [facility] Leukocyte UA 1+(A) Negative 09/30/2015 11:[address] [facility] Nitrite UA Negative Negative 09/30/2015 11:[address] [facility] Glucose UA Negative Negative 09/30/2015 11:[address] [facility] Ketone UA Negative Negative 09/30/2015 11:[address] [facility] Bilirubin UA Negative Negative 09/30/2015 11:[address] [facility] Urobilinogen UA 1.0 0.1 - 1.0 EU/dL 09/30/2015 11:[address] [facility] WBC UA Auto 2-5 0-2, 2-5 # /hpf 09/30/2015 11:[address] [facility] RBC UA Auto 2-5 0-2, 2-5 # /hpf 09/30/2015 11:[address] [facility] Epithelial Cell UA Auto 5-10(A) 0-2, 2-5 # /hpf 09/30/2015 11:[address] [facility] Hyaline Casts UA Auto 2-5(A) 0 - 2 #/lpf 09/30/2015 11:[address] [facility] Reflex Status Culture to follow 09/30/2015 11:[address] [facility] Urine URINE SPECIMEN OBTAINED BY CLEAN CATCH PROCEDURE / Unknown 09/30/2015 11:[address] [facility] 09/30/2015 11:[address] [facility] Mariah Casas CULTURAL HISTORIAN-DINKEY OPERATOR [facility] - URINALYSI S ORDERABLES [facility] [address] [place], [place] [id number] documented in this encounter Visit Diagnoses Diagnosis Vaginal discharge Leukorrhea, not specified as infective Screen for STD (sexually transmitted disease) Screening examination for venereal disease documented in this encounter Administered Medications Inactive Administered Medications - up to 3 most recent administrations Medication Order MAR Action Action Date Dose Rate Site metroNIDAZOLE (FLAGYL) tablet 500 mg 500 mg, Oral, NOW, 1 dose, On 09/30/15 at 1315, May take with food or milk. $ Given 09/30/2015 1:27 PM COMMUNITY HEALTH EDUCATOR 500 mg documented in this encounter Active and Recently Administered Medications Times are shown in COMMUNITY HEALTH EDUCATOR. Scheduled Medication Order 09/28/2015 09/29/2015 09/30/2015 metroNIDAZOLE (FLAGYL) tablet 500 mg (COMPLETED) 500 mg, Oral, NOW, 1 dose, On 09/30/15 at 1315, May take with food or milk. 1327 ($ Given - Prov ider: Margaux Rojas RN) documented in this encounter
--- OUTSIDE RECORDS SUMMARY | 2024-09-25 11:51 | XMS_ITS | Encounter Summary ---
Author Organization [facility] Address [address] [place] [address] Care Team Providers Care Patient Relations Director Name Role Phone Unavailable Primary Care Provider Unavailabl e Reason for Visit * Reason Comments Pain Head STYLES x4 days no relief with OTC meds Pain Pelvic pelvic pain onset 2 weeks ago Encounter Details Date Type Department Care Team (Late st Contact Info) Description 02/11/2015 10:00 PM CDT - 02/12/2015 1:20 AM CDT Emergency ER at [facility] [address] [place] [id number] Jono Parra, DO [address] [place] [id number] Headache(784.0); Abdominal pain, generalized Discharge Disposition: Home or Self Care Social History Tobacco Use Types Packs/Day Years Used Date Smoking Tobacco: Former Cigarettes Smokeless Tobacco: Never Comments:Quit smoking in Apr [place] Alcohol Use Standard Drinks/Week Comments No 0 (1 standard drink = 0.6 oz pur e alcohol) rarely Comments Yes Sex and Gender Information Value Date Recorded Sex Assigned at Not on file Gender Identity Not on file Sexual Orientation Not on file documented as of this encounter Last Filed Vital Signs Vital Sign Reading Time Taken Comments Blood Pressure 124/75 02/12/2015 1:19 AM CDT Pulse 79 02/12/2015 1:19 AM CDT Temperature 36.7 ??C (98.1 ??F) 02/12/2015 1:19 AM CD T Respiratory Rate 18 02/12/2015 1:19 AM CDT Oxygen Saturation 100% 02/12/2015 1:19 AM CDT Inhaled Oxygen Concentration - - Weight 89.4 kg (197 lb) 02/11/2015 8:44 PM CDT Height 162.6 cm (5' 4 ) 02/11/2015 8:44 PM CDT Body Mass Index 33.81 02/11/2015 8:44 PM CDT documented in this encounter Functional [...] this encounter Discharge Instructions * Discharge Instructions* Girish Matos RN - 02/12/2015 1:20 AM CDT Abdominal Pain Abdominal pain can be caused by many things. Your caregiver decides the seriousness of your pain byan examination and possibly blood tests and X-rays. Many cases can be observed and treated at home.Most abdominal pain is not caused by a disease and will probably improve without treatment. However, in many cases, more time must pass before a clear cause of the pain can be found. Before that point, it may not be known if you need more testing, or if hospitalization or surgery is needed. HOME CARE INSTRUCTIONS ?? Do not take laxatives unless directed by your caregiver. ?? Take pain medicine only as directed by your caregiver. ?? Only take ambj-ubt-dieueew or prescription medicines for pain, discomfort, or fever as directed by your caregiver. ?? Try a clear liquid diet (broth, tea, or water) for as long as directed by your caregiver. Slowlymove to a bland diet as tolerated. SEEK IMMEDIATE MEDICAL CARE IF: ?? The pain does not go away. ?? You have a fever. ?? You keep throwing up (vomiting). ?? The pain is felt only in portions of the abdomen. Pain in the right side could possibly be appendicitis. In an adult, pain in the left lower portion of the abdomen could be colitis or diverticulitis. ?? You pass bloody or black tarry stools. MAKE SURE YOU: ?? Understand these instructions. ?? Will watch your condition. ?? Will get help right away if you are not doing well or get worse. Document Released: 06/03/2006 Document Revised: 11/15/2012 Document Reviewed: 04/11/2009 ExitCare?? Patient Information ??2014 [employer]. Acute Headache WHAT YOU SHOULD KNOW: An acute headache is pain or discomfort that starts suddenly and gets worse quickly. AFTER YOU LEAVE: Medicines: ?? Pain medicine: You may need medicine to take away or decrease pain. ?? Learn how to take your medicine. Ask what medicine and how much you should take. Be sure you know how, when, and how often to take it. ?? Do not wait until the pain is severe before you take your medicine. Tell caregivers if your paindoes not decrease. ?? Pain medicine can make you dizzy or sleepy. Prevent falls by calling someone when you get out ofbed or if you need help. ?? Take your medicine as directed. Call your healthcare provider if you think your medicine is not helping or if you have side effects. Tell him if you are allergic to any medicine. Keep a list of the medicines, vitamins, and herbs you take. Include the amounts, and when and why you take them. Bring the list or the pill bottles to follow-up visits. Carry your medicine list with you in case of an emergency. Biofeedback: Electrodes (wires) are placed on your body and attached to a monitor. You will learn how to change stress reactions. For example, you learn to slow your heart rate when you become upset.You may also learn to prevent certain headaches by combining heat with relaxation. Cognitive behavior therapy: This therapy is also called stress management. It may be used with other therapies to prevent headaches. Self care: ?? Heat: Heat helps decrease pain and muscle spasms. Use a small towel dampened with warm water or a heating pad, or sit in a warm bath. Apply heat on the area for 20 to 30 minutes every 2 hours for as many days as directed. Alternate heat and ice. ?? Keep a headache diary: Record the dates and times that you get headaches, and what you were doing before the headache started. This might help you learn if there is something that triggers your headaches. ?? Relax your muscles: Lie down in a comfortable position and close your eyes. Relax your muscles slowly. Start at your toes and work your way up your body. Follow up with your healthcare provider as directed: Write down your questions so you remember to ask them during your visits. Contact your healthcare provider if: ?? You have a constant headache and are vomiting. ?? You have a headache each day that does not get better, even after treatment. ?? You have changes in your headaches, or new symptoms that occur when you have a headache. ?? You have questions or concerns about your condition or care. Seek care immediately or call 911 if: ?? You have severe pain. ?? You have a headache that occurs after a blow to the head, a fall, or other trauma. ?? You have a headache and are forgetful or confused. ?? You have numbness on one side of your face or body. ?? 2015 [employer]. Information is for End User's use only and may not be sold, redistributed or otherwise used for commercial purposes. All illustrations and images included in CareNotes?? are the copyrighted property of [employer], [employer]. or [employer]. The above information is an surgery aid only. It is not intended as medical advice for individual conditions or treatments. Talk to your doctor, nurse or pharmacist before following any medical regimen to see if it is safe and effective for you. Acute Headache WHAT YOU SHOULD KNOW: An acute headache is pain or discomfort that starts suddenly and gets worse quickly. INSTRUCTIONS: Medicines: ?? Pain medicine: You may be given medicine to take away or decrease pain. Do not wait until the pain is severe before you take your medicine. ?? Take your medicine as directed. Call your healthcare provider if you think your medicine is not helping or if you have side effects. Tell him if you are allergic to any medicine. Keep a list of the medicines, vitamins, and herbs you take. Include the amounts, and when and why you take them. Bring the list or the pill bottles to follow-up visits. Carry your medicine list with you in case of an emergency. Self care: ?? Heat: Heat helps decrease pain and muscle spasms. Use a small towel dampened with warm water or a heating pad, or sit in a warm bath. Apply heat on the area for 20 to 30 minutes every 2 hours for as many days as directed. Alternate heat and ice. ?? Keep a headache diary: Record the dates and times that you get headaches, and what you were doing before the headache started. This might help you learn if there is something that triggers your headaches. ?? Relax your muscles: Lie down in a comfortable position and close your eyes. Relax your muscles slowly. Start at your toes and work your way up your body. Follow up with your healthcare provider as directed: Write down your questions so you remember to ask them during your visits. Contact your healthcare provider if: ?? You have a constant headache and are vomiting. ?? You have a headache each day that does not get better, even after treatment. ?? You have changes in your headaches, or new symptoms that occur when you have a headache. ?? You have questions or concerns about your condition or care. Return to the emergency department if: ?? You have severe pain. ?? You have a headache that occurs after a blow to the head, a fall, or other trauma. ?? You have a headache and are forgetful or confused. ?? You have numbness on one side of your face or body. ?? 2015 [employer]. Information is for End User's use only and may not be sold, redistributed or otherwise used for commercial purposes. All illustrations and images included in CareNotes?? are the copyrighted property of [employer] or [employer]. The above information is an surgery aid only. It is not intended as medical advice for individual conditions or treatments. Talk to your doctor, nurse or pharmacist before following any medical regimen to see if it is safe and effective for you. Acute Headache GENERAL INFORMATION: What is an acute headache? An acute headache is pain or discomfort that starts suddenly and gets worse quickly. What are the most common types of acute headaches? ?? Tension headache: This is the most common type of headache. These headaches typically occur in the late afternoon and go away by evening. The pain is usually mild or moderate. You may have problems tolerating bright light or loud noise. The pain is usually across the forehead or in the back of the head, often only on one side. These headaches may occur every day. ?? Migraine headache: Migraines cause moderate or severe pain. The headache generally lasts from 1 to 3 days and tends to come back. Pain is usually on only one side, but it may change sides. Migraines often occur in the confucianist, the back of the head, or behind the eye. The pain may throb or be sharp and steady. ?? Migraine with aura: An aura is something that you see or feel, and occurs before a migraine. Youmay see a small spot surrounded by bright zigzag lines. Other signs or symptoms may follow the aura. ?? Cluster headache: The pain of a cluster headache is usually only on one side. It often causes severe pain, and can last for 30 minutes to 2 hours. These headaches may occur 1 or 2 times each day. These headaches occur more often at night, and may wake you up. What causes acute headaches? The cause of your headache may not be known. The following conditions can trigger a headache: ?? Stress: Tension or stress may cause headaches hours or even days after stressful events. ?? Fatigue: You may get a tension headache when you are tired. A lack of sleep or changes in your usual sleep pattern can cause a migraine. You may also get a headache if you nap during the day. ?? Hormones: Menstruation may cause headaches, especially for teenagers or after . Headaches are also more likely if you use control pills or hormone replacement therapy. ?? Food: Cured meats, artificial sweeteners, red wine, dark chocolate, and MSG may trigger headaches. If you are used to drinking 2 to 3 cups of coffee with caffeine each day, you may get a headache if you stop suddenly. Alcohol may also cause headaches. ?? Medical problems: This includes infections, tooth pain, neck or sinus pain, thyroid problems, and tumors. ?? Trauma: A blow to the head can cause an acute headache. What signs and symptoms may be related to an acute headache? ?? Fever ?? Sinus pressure ?? Loss of memory ?? Nausea or vomiting ?? Problems with your vision, such as watery or red eyes, loss of vision, or pain in bright light ?? Stiff neck ?? Tenderness of the head and neck area ?? Trouble staying awake, or being less alert than usual ?? Weakness or less energy How is an acute headache diagnosed? Your healthcare provider will ask you to rate your pain on a scale from 1 to 10. Tell him how often you have headaches and how long they last. Show him where you feel the pain. He will ask you to describe the pain. How is an acute headache treated? ?? Pain medicine: You may be given medicine to take away or decrease pain. Do not wait until the pain is severe before you take your medicine. ?? Biofeedback: Electrodes (wires) are placed on your body and attached to a monitor. You will learn how to change stress reactions. For example, you learn to slow your heart rate when you become upset. You may also learn to prevent certain headaches by combining heat with relaxation. ?? Cognitive behavior therapy: This therapy is also called stress management. It may be used with other therapies to prevent headaches. How can I help manage my symptoms? ?? Heat: Heat helps decrease pain and muscle spasms. Use a small towel dampened with warm water or a heating pad, or sit in a warm bath. Apply heat on the area for 20 to 30 minutes every 2 hours for as many days as directed. Alternate heat and ice. ?? Keep a headache diary: Record the dates and times that you get headaches, and what you were doing before the headache started. This might help you learn if there is something that triggers your headaches. ?? Relax your muscles: Lie down in a comfortable position and close your eyes. Relax your muscles slowly. Start at your toes and work your way up your body. When should I contact my healthcare provider? ?? You have a constant headache and are vomiting. ?? You have a headache each day that does not get better, even after treatment. ?? You have changes in your headaches, or new symptoms that occur when you have a headache. ?? You have questions or concerns about your condition or care. When should I seek immediate care or call 911? ?? You have severe pain. ?? You have a headache that occurs after a blow to the head, a fall, or other trauma. ?? You have a headache and are forgetful or confused. ?? You have numbness on one side of your face or body. CARE AGREEMENT: You have the right to help plan your care. Learn about your health condition and how it may be treated. Discuss treatment options with your caregivers to decide what care you want to receive. You always have the right to refuse treatment. The above information is an surgery aid only. It is not intended as medical advice for individual conditions or treatments. Talk to your doctor, nurse or pharmacist before following any medical regimen to see if it is safe and effective for you. ?? 2014 [employer]. Information is for End User's use only and may not be sold, redistributed or otherwise used for commercial purposes. All illustrations and images included in CareNotes?? are the copyrighted property of [employer]. or [employer]. Acute Headache Deven Farias, SaturninoR, & Mary Anne Solano: A non-selective (amitriptyline), but not a selective (citalopram), serotonin reuptake inhibitor is effective in the prophylactic treatment of chronic tension-type headache. J Neurol Neurosurg Psychiatry, 1996; 61(3):285-290. [facility] [place] [facility]: Alternative medicine: the definitive guide. [place], [place]: [employer] [facility] 1993. GEENA Arredondo & JAYDEN Hall: Pediatric acute pain management. Anesthesiol Clin [place], 2005; 23(4):789-814. ME Micki, DR Kristine, ISAC Salazar, et al: Does this patient with headache have a migraine or need neuroimaging?. JUAN, 2006; 296(10):1832-7156. Yahaira,C & Nancy,S: Suspected subarachnoid haemorrhage with a negative CT head scan: What next?. Emerg Med, 2000; 12(-):212-217. KAMI Oro, Lakia Garza III, MananR, et al: Inpatient treatment of headache: an evidence-based assessment. Headache, 2004; 44(4):342-360. Headache Classification Subcommittee of the International Headache Society: The International Classification of Headache Disorders: 2nd edition. Cephalalgia, 2004; 24(Suppl 1):9-160. HOLLY Sesay & MOY Camargo: Basic pharmacology and advances in emergency medicine. Emerg Med Clin [place], 2005; 23(2):433-43x. BAILEY Newman & KERI More: Circumstances of onset of chronic headache in [facility]. Headache, 1999; 39(5):317-320. KEHINDE Aleman & VICTORINO Bledsoe: Management of subarachnoid haemorrhage. J Neurol Neurosurg Psychiatry,1993; 56(9):947-959. CHELITA Lackey: Non-traumatic headache in the emergency department. [facility]iss Emerg Med, 1980; 9(8):404-409. JERICA Rubalcava, HareshS, DainaG, et al: Practice parameter: evaluation of children and adolescents with recurrent headaches: report of the Quality Standards Subcommittee of the [place] Academy [employer] Neurology and the Practice Committee of the Child Neurology Society. <Vo> 67^ (10)^ D6798-8, 2002; 59(4):490-498. ANGELINE Last, EMMANUEL Hernandes, & BRYANNA Kim: Doxepin in the prophylactic treatment of mixed 'vascular' and tension headache. Headache, 1979; 19(7):382-383. JENI Mujica & PHILIP Smith: Management of the patient with suspected temporal arteritis a decision-analytic approach. Ophthalmology, 2005; 112(5):744-756. JACI Hill & YE Cheney: The erythrocyte sedimentation rate. J Emerg Med, 1997; 15(6):869-874. Zauber: Package Insert: NEOPROFEN(R) IV injection: ibuprofen lysine IV injection. [place], [place]: Zauber;, Dec 2005. Armaan Brand, TomasF, LeeL, et al: Polymyalgia rheumatica and giant-cell arteritis. The [place] Journal of Medicine, 2002; 347(4):261-271. CHELITA Dillard & Isamar,REYNOLD: A study of caffeine consumption and symptoms; indigestion, palpitations, tremor, headache and insomnia. Int J Epidemiol, 1985; 14(2):239-248. BRAD Angel: Practice parameter: evidence-based guidelines for migraine headache (an evidence-based review): report of the Quality Standards Subcommittee of the [place] Academy of Neurology. <Vo> 67^ (10)^ C5564-1, 2000; 55(6):754-762. Silver,N: Headache (chronic tension-type). Clin Evid, 2005; 2005(14):3321-8653. MARJORIE Landaverde & LUCAS Austin: Does this patient have temporal arteritis?. JUAN, 2002; 287(1):92-101. KERI More, ParadiseM, ÓSCAR Carter, et al: Psychophysical precedents of migraine in relation to the time of onset of the headache: the migraine time line. Headache, 1997; 37(4):217-220. US Food and Drug Administration: Labeling Change Request Letter for Antidepressant Medications. Available at: http://www.fda.gov/cder/drug/antidepressants/SSRIlabelChange.htm., Accessed November 23, 2006. US Food and Drug Administration: Proposed NSAID Package Insert Labeling - Template 1. Available at: http://www.fda.gov/cder/drug/infopage/COX2/NSAIDRxtemplate.pdf., Accessed November 23, 2006. Shay Dodson, DEENA Pérez, Skip Veronica, et al: Detection of subarachnoid haemorrhage on early CT: is lumbar puncture still needed after a negative scan?. J Neurol Neurosurg Psychiatry, 1995; 58(3):357-359. Mary Anne Jenkins: Subarachnoid haemorrhage. Lancet, 1992; 339(6423):653-65. JULIOCESAR Kearney: Cerebrospinal fluid data. 1. Interpretation in intracranial hemorrhage and meningitis. Postgrad Med, 1980; 68(4):181-186, 187. DI Hebert & PAUL Waller: Giant-cell arteritis and polymyalgia rheumatica. [facility] [employer] Med, 2003; 139(6):505-515. ?? 2014 [employer]. Information is for End User's use only and may not be sold, redistributed or otherwise used for commercial purposes. All illustrations and images included in CareNotes?? are the copyrighted property of [employer] or [employer]. The above information is an surgery aid only. It is not intended as medical advice for individual conditions or treatments. Talk to your doctor, nurse or pharmacist before following any medical regimen to see if it is safe and effective for you. Follow up with your doctor within 24hrs Take Medications as prescribed. Return to ER immediately at anytime if symptoms worsen/ persists, chest pain, shortness of breath, lightheadedness, loss of consciousness, numbness/weakness/tingling in your arms or legs. Return if fevers greater than 104, continuous vomiting, inability to drink fluids or tolerate solids by mouth, dehydration, lethargy, if patient not acting normally or any other concerns you may have at home. Please followup with your primary care doctor or the physician you have been given here in the emergency department prior to any travel. documented in this encounter Medications at Time of Discharge Medication Sig Dispensed Refills Start Date End Date albuterol HFA (PROVENTIL;VENTOLIN;PROAI R) 108 (90 BASE) MCG/ACT inhaler Inhale 2 Puffs by mouth every 6 hours as needed. 10/30/2015 ibuprofen (MOTRIN) 600 MG tablet Take 1 Tab by mouth every 6 hours as needed for Pain. 20 Tab 0 11/04/2014 04/17/2015 loratadine (CLARITIN) 10 MG tablet Take 1 Tab by mouth once daily. 30 Tab 0 01/04/2015 09/30/2015 predniSONE (DELTASONE) 20 MG tablet Take 2 Tabs by mouth once daily. 10 Tab 0 01/04/2015 04/13/2015 documented as of this encounter ED Notes * Girish Matos RN - 02/12/2015 1:20 AM CDT D/C instructions discussed and given. Pt verbalizes understanding. Pt A&Ox4 and able to ambulate out of ED. Girish Matos RN 02/12/2015 1:20 AM * Girish Matos RN - 02/11/2015 11:44 PM CDT Pt stating the head pain has almost resolved but she is still having shooting pains in her pelvis. VS remain stable. Pt provided with nargis mist and gerry/crackers and peanut butter. Will continue to monitor. Girish Matos RN 02/11/2015 11:45 PM * Girish Matos RN - 02/11/2015 10:40 PM CDT Pt given prescribed meds - reporting burning in chest after meds given and vision blurry - MD notified and at bedside now. VSS. Will continue to monitor. Girish Matos RN 02/11/2015 10:41 PM * Jono Parra DO - 02/11/2015 10:24 PM CDT Provider contact with the patient: 02/11/2015 22:24 Jumana Rivers [id number] [facility] EMERGENCY DEPARTMENT History Chief Complaint Patient presents with ??? Pain Head STYLES x4 days no relief with OTC meds ??? Pain Pelvic pelvic pain onset 2 weeks ago HPI Comments: Jumana Rivers is a 24 y.o. female presenting to the ED with a chief complaint of constant cephalgia. The initial onset of her chief complaint was four days ago. Her pain is located globally. Currently, her pain level is an 8 out of 10. She reports no exacerbating factors, and states over the counter medication has not relieved her pain. Additional complaints include intermittent generalized body aches and pelvic pain that started 2 weeks ago. She denies any other symptoms, including numbness, weakness, or tingling. Patient is on the Depo shot, and is currently menstruating Past Medical History Diagnosis Date ??? Asthma [...] Main Topics ??? Smoking status: Former Smoker -- 0.25 packs/day ??? Smokeless tobacco: Never Used Comment: Quit smoking in December ??? Alcohol Use: No Comment: rarely ??? Drug Use: No ??? Sexual Activity: Not on file Other Topics Concern ??? Not on file Social History Narrative Review of Systems Review of Systems Constitutional: Negative for fever, chills and diaphoresis. Myalgias HENT: Negative for congestion, ear pain and sore throat. Eyes: Negative. Negative for blurred vision, pain, discharge and redness. Respiratory: Negative. Negative for cough, shortness of breath and wheezing. Cardiovascular: Negative. Negative for chest pain and leg swelling. Gastrointestinal: Negative. Negative for heartburn, nausea, vomiting, abdominal pain, diarrhea, constipation and blood in stool. Genitourinary: Negative. Negative for dysuria and frequency. Musculoskeletal: Negative for myalgias and back pain. Pelvic pain Skin: Negative. Negative for rash. Neurological: Positive for headaches. Negative for dizziness, tremors, focal weakness, seizures andloss of consciousness. Endo/Heme/Allergies: Negative. Does not bruise/bleed easily. Psychiatric/Behavioral: Negative. The patient is not nervous/anxious. All other systems reviewed and are negative. Physical Exam BP 115/78 mmHg Pulse 71 Temp(Src) 98.4 ??F Resp 16 Ht 1.626 m (5' 4 ) Wt 89.359 kg (197 lb) BMI 33.80 kg/m2 Physical Exam Constitutional: She is oriented to person, place, and time. She appears well- developed. No distress. Over well-nourished HENT: Head: Normocephalic and atraumatic. Right Ear: [...] exhibits no distension. There is no tenderness. Musculoskeletal: Normal range of motion. She [...] thought contentnormal. Nursing note and vitals reviewed. 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 albuterol HFA (PROVENTIL;VENTOLIN;PROAIR) 108 (90 BASE) MCG/ACT inhaler Inhale 2 Puffs by mouthevery 6 hours as needed. ??? loratadine (CLARITIN) 10 MG tablet Take 1 Tab by mouth once daily. 30 Tab 0 ??? predniSONE (DELTASONE) 20 MG tablet Take 2 Tabs by mouth once daily. 10 Tab 0 ??? ibuprofen (MOTRIN) 600 MG tablet Take 1 Tab by mouth every 6 hours as needed for Pain. 20 Tab 0 Procedures Procedures--none ECG Interpretation ECG Interpretation--none Lab Interpretation Oxygen Saturation Interpretation The oxygen saturation level is: 100%. The patient was on Room Air for the saturation measurement. Measurement frequency: Spot Check. Oxygen saturation interpretation is Normal. Intervention(s) used: None. Results for orders placed during the hospital encounter of 02/11/15 CBC W AUTO DIFFERENTIAL Result Value Ref Range WBC 7.4 4.4-10.7 x10^9/L WBC Corrected RBC 4.85 3.80-5.20 x10^12/L Hgb 13.3 12.0-15.6 gm/dL HCT 38.8 35.9-45.5 % MCV 80.0 (*) 80.7-98.3 fl MCH 27.4 26.7-34.0 pg MCHC 34.3 30.8-35.9 gm/dL Plt Ct 318 153-416 x10^9/L RDW-CV 15.5 (*) 12.1-14.9 % MPV 8.8 (*) 9.4-12.9 fl Neutro 42.1 (*) 44.0-73.0 % Lymph 42.0 20.0-43.0 % Coke 10.7 5.0-13.0 % Eos 4.2 0.0-6.0 % Baso 0.7 0.0-2.0 % Immature Grans 0.3 0-1 % Neutro Abs 3.12 2.01-7.14 x10^9/L Lymph Abs 3.11 1.07-3.94 x10^9/L Coke Abs 0.79 0.26-1.07 x10^9/L Eosin Abs 0.31 0-0.47 x10^9/L Baso Abs 0.05 0-0.08 x10^9/L Immature Grans Abs 0.02 0.00-0.06 x10^9/L COMPREHENSIVE METABOLIC PANEL Result Value Ref Range Glucose 81 74-106 mg/dL Sodium 140 136-145 mmol/L Potassium 3.3 (*) 3.5-5.1 mmol/L Chloride 106 98-107 mmol/L CO2 27 22-31 mmol/L Calcium 8.4 (*) 8.5-10.1 mg/dL Anion Gap 7 5-15 mmol/L BUN 12 7-21 mg/dL Creatinine 0.64 0.50-1.30 mg/dL eGFR MDRD >60 >60 mL/min/1.73m2 eGFR MDRD AFR AMR >60 >60 mL/min/1.73m2 Alk Phos 57 38-126 U/L ALT/SGPT 21 12-78 U/L AST/SGOT 4 (*) 5-40 U/L Protein Total 7.3 6.4-8.2 gm/dL Albumin 3.6 3.4-5.0 gm/dL Bili Total 0.3 0.2-1.0 mg/dL URINALYSIS ROUTINE W/REFLEX TO CULTURE Result Value Ref Range Color UA Yellow Straw, Yellow, Dark Yellow Clarity UA Cloudy Specific [place] UA >1.030 (*) 1.005-1.030 pH UA 6.0 5.0-8.0 pH Protein UA Negative Negative Blood UA 3+ (*) Negative Leukocyte UA 1+ (*) Negative Nitrite UA Negative Negative Glucose UA Negative Negative Ketone UA Negative Negative Bili UA Negative Negative Urobilinogen UA 1.0 0.1-1.0 EU/dL WBC UA Auto 5-10 (*) 0-2, 2-5 # /hpf RBC UA Auto 50-100 (*) 0-2, 2-5 # /hpf Epithelial Cell UA Auto 10-20 (*) 0-2, 2-5 # /hpf Bacteria UA Auto 1+ (*) None seen Hyaline Casts UA Auto 2-5 (*) 0-2 #/lpf Reflex Status Culture to follow HCG URINE QUALITATIVE - POINT OF CARE (IP) Result Value Ref Range HCG Qual Urine Negative Negative QC Verified Yes Yes No orders to display Progress Notes 10:24PM Initial Plan: Labs have been ordered. 12:21 AM Rechecked pt -patient resting comfortably and feeling better; no new complaints. I discussed the results of diagnostic studies and my clinical impression with the patient. Patient agrees with plan and discharge at this time, all questions addressed. ED Course Medical Decision Making I have reviewed the: Previous Chart, Nursing Notes and Vitals. I have interpreted the following results: Labs and Oxygen Saturation. The patient does not have any acute symptomatology warranting further evaluation for the headache. Patient denies that this has been the worst headache of their life. Patient has a completely normal neurologic exam, Tm's clear, no tenderness over cranium, no gonzalez sign, no raccoon eyes noted, no sign of trauma. I have explained the risks and benefits of a CT head at this time and she agrees to fo rgo this procedure with the plan of watchful waiting and family observation at home overnight. Patient has no apparent acute surgical condition at this time. The abdominal pain has much improved. Theabdominal pain is currently undifferentiated. I have spoken with the patient at great length and recommend to return to the ED in 12 hours for abdominal re-examination. I have done appendicitis teaching at the bedside and what to symptomatolgy to watch out for (RLQ pain, vomiting, fevers, anorexia,etc) and return to the ED instructions. The patient is alert and oriented and the patient displays understanding. Normal vss, normal bloodwork, on her menstruation, pain has resolved in her head and a bdomen, was sleeping upon re-exam prior to discharge. Orders Placed This Encounter ??? CULTURE URINE ??? CBC W AUTO DIFFERENTIAL ??? COMPREHENSIVE METABOLIC PANEL ??? URINALYSIS ROUTINE W/REFLEX TO CULTURE ??? HCG URINE QUALITATIVE - POINT OF CARE (IP) ??? 0.9% NaCl IV Bolus ??? diphenhydrAMINE (BENADRYL) injection 50 mg ??? metoclopramide (REGLAN) injection 10 mg Pt is medically stable for d/c home [...] patient verbalized understanding of the discharge instructions. New Medications: New Prescriptions No medications on file I have advised the patient to follow-up with: [facility] referral line [phone] Schedule an appointment as soon as possible for a visit in 1 day Disposition: Discharged Clinical Impression Final diagnoses: Headache(784.0) Abdominal pain, generalized I have reviewed the information recorded by the scribe and agree with its accuracy and contents--Dr. Fidel DO 02/12/2015 12:24 AM Transcribed by Jess Vazquez acting scribe on behalf of Dr. Fidel DO 02/11/2015 10:24 PM * Girish Matos, RN - 02/11/2015 10:02 PM CDT Pt reports having a h/a for four days now and intermittent pelvic pain. Pt rates pain 8/10 right now. VSS. Will continue to monitor. Girish Matos RN 02/11/2015 10:04 PM documented in this encounter Plan of Treatment Not on file documented as of this encounter Procedures Procedure Name Priority Date/Time Associated Diagnosis Comments HCG URINE QUALITATIVE - POINT OF CARE STAT 02/11/2015 10:43 PM CDT URINALYSIS REFLEX MICROSCOPIC REFLEX CULTURE STAT 02/11/2015 10:35 PM CDT CULTURE URINE STAT 02/11/2015 10:35 PM CDT CBC W AUTO DIFFERENTIAL STAT 02/11/2015 10:34 PM CDT COMPREHENSIVE METABOLIC PANEL STAT 02/11/2015 10:34 PM CDT documented in this encounter Results * HCG URINE QUALITATIVE - POINT OF CARE (IP) (02/11/2015 10:43 PM CDT) HCG Qual Urine Negative Negative [facility] TEST[facility] QC Verified Yes Yes [facility] POC T TESTING Urine specimen (specimen) URINE / Unknown 02/11/2015 10:43 PM CDT Jono Parra DO LAB - POINT OF CARE ORDERABLES Performing Organization Address City/[facility]/ZIP Co de Phone Number [facility] POCT TEST[facility] [address] [place] [address], [facility] [phone] * CULTURE URINE (02/11/2015 10:35 PM CDT) Pathologist [facility] Culture >10,000 CFU/mL multiple bacterial morphotypes present. Suggest recollection. CHRYSTAL 02/14/2015 12:23 PM CDT [facility] Urine URINE SPECIMEN OBTAINED BY CLEAN CATCH PROCEDURE / Unknown Collection / Unknown 02/11/2015 10:35 PM CDT 02/11/2015 10:41 PM CDT Jono Parra DO LAB - MICROBIOL OGY ORDERABLES [facility] [address] [place] [address], [facility] [phone] * (ABNORMAL) URINALYSIS ROUTINE W/REFLEX TO CULTURE (02/11/2015 10:35 PM CDT) Color UA Yellow Straw, Yellow, Dark Yellow 02/11/2015 10:56 PM [facility] Clarity UA Cloudy 02/11/2015 10:56 PM [facility] Specific [place] UA >1.030(H) 1.005 - 1.030 02/11/2015 10:56 PM [facility] pH UA 6.0 5.0 - 8.0 pH 02/11/2015 10:56 PM [facility] Protein UA Negative Negative 02/11/2015 10:56 PM [facility] Blood UA 3+(A) Negative 02/11/2015 10:56 PM [facility] Leukocyte UA 1+(A) Negative 02/11/2015 10:56 PM [facility] Nitrite UA Negative Negative 02/11/2015 10:56 PM [facility] Glucose UA Negative Negative 02/11/2015 10:56 PM [facility] Ketone UA Negative Negative 02/11/2015 10:56 PM [facility] Bilirubin UA Negative Negative 02/11/2015 10:56 PM [facility] Urobilinogen UA 1.0 0.1 - 1.0 EU/dL 02/11/2015 10:56 PM [facility] WBC UA Auto 5-10(A) 0-2, 2-5 # /hpf 02/11/2015 10:56 PM [facility] RBC UA Auto 50-100(A) 0-2, 2-5 # /hpf 02/11/2015 10:56 PM [facility] Epithelial Cell UA Auto 10-20(A) 0-2, 2-5 # /hpf 02/11/2015 10:56 PM [facility] Bacteria UA Auto 1+(A) None seen 02/11/2015 10:56 PM [facility] Hyaline Casts UA Auto 2-5(A) 0 - 2 #/lpf 02/11/2015 10:56 PM [facility] Reflex Status Culture to follow 02/11/2015 10:56 PM [facility] Urine URINE SPECIMEN OBTAINED BY CLEAN CATCH PROCEDURE / Unknown Collection / Unknown 02/11/2015 10:35 PM CDT 02/11/2015 10:41 PM T Jono Parra DO LAB - URINALYSI S ORDERABLES [facility] [address] [place] [address] * (ABNORMAL) COMPREHENSIVE METABOLIC PANEL (02/11/2015 10:34 PM CDT) Glucose 81 74 - 106 mg/dL 02/11/2015 10:58 PM CDT [facility] Sodium 140 136 - 145 mmol/L 02/11/2015 10:58 PM CDT [facility] Potassium 3.3(L) 3.5 - 5.1 mmol/L 02/11/2015 10:58 PM CDT [facility] Chloride 106 98 - 107 mmol/L 02/11/2015 10:58 PM CDT [facility] CO2 27 22 - 31 mmol/L 02/11/2015 10:58 PM CDT [facility] Calcium 8.4(L) 8.5 - 10.1 mg/dL 02/11/2015 10:58 PM CDT [facility] Anion Gap 7 5 - 15 mmol/L 02/11/2015 10:58 PM CDT [facility] BUN 12 7 - 21 mg/dL 02/11/2015 10:58 PM CDT [facility] Creatinine 0.64 0.50 - 1.30 mg/dL 02/11/2015 10:58 PM CDT [facility] eGFR by MDRD >60 >60 mL/min/1.7 3m2 02/11/2015 10:58 PM CDT [facility] eGFR by MDRD >60 >60 mL/min/1.7 3m2 02/11/2015 10:58 PM CDT [facility] Alkaline Phosphatase 57 38 - 126 U/L 02/11/2015 10:58 PM CDT [facility] ALT 21 12 - 78 U/L 02/11/2015 10:58 PM CDT [facility] AST 4(L) 5 - 40 U/L 02/11/2015 10:58 PM CDT [facility] Protein Total 7.3 6.4 - 8.2 gm/dL 02/11/2015 10:58 PM CDT [facility] Albumin 3.6 3.4 - 5.0 gm/dL 02/11/2015 10:58 PM CDT [facility] Bilirubin Total 0.3 0.2 - 1.0 mg/dL 02/11/2015 10:58 PM CDT [facility] Blood BLOOD SPECIMEN / Unknown 02/11/2015 10:34 PM CDT 02/11/2015 10:45 PM CDT Jono Parra DO LAB - CHEMISTRY ORDERABLES [facility] [address] [place] [address] * (ABNORMAL) CBC W AUTO DIFFERENTIAL (02/11/2015 10:34 PM CDT) WBC 7.4 4.4 - 10.7 x10^9/L 02/11/2015 10:43 PM CDT [facility] WBC Corrected x10^9/L 02/11/2015 10:43 PM CDT [facility] RBC 4.85 3.80 - 5.20 x10^12/L 02/11/2015 10:43 PM CDT [facility] Hemoglobin 13.3 12.0 - 15.6 gm/dL 02/11/2015 10:43 PM CDT [facility] Hematocrit 38.8 35.9 - 45.5 % 02/11/2015 10:43 PM CDT [facility] MCV 80.0(L) 80.7 - 98.3 fl 02/11/2015 10:43 PM CDT [facility] MCH 27.4 26.7 - 34.0 pg 02/11/2015 10:43 PM CDT [facility] MCHC 34.3 30.8 - 35.9 gm/dL 02/11/2015 10:43 PM CDT [facility] Platelet Count 318 153 - 416 x10^9/L 02/11/2015 10:43 PM CDT [facility] RDW-CV 15.5(H) 12.1 - 14.9 % 02/11/2015 10:43 PM CDT [facility] MPV 8.8(L) 9.4 - 12.9 fl 02/11/2015 10:43 PM CDT [facility] Neutrophils % 42.1(L) 44.0 - 73.0 % 02/11/2015 10:43 PM CDT [facility] Lymphocytes % 42.0 20.0 - 43.0 % 02/11/2015 10:43 PM CDT [facility] Monocytes % 10.7 5.0 - 13.0 % 02/11/2015 10:43 PM CDT [facility] Eosinophils % 4.2 0.0 - 6.0 % 02/11/2015 10:43 PM CDT [facility] Basophils % 0.7 0.0 - 2.0 % 02/11/2015 10:43 PM CDT [facility] Immature Granulocytes 0.3 0 - 1 % 02/11/2015 10:43 PM CDT [facility] Neutrophil Absolute 3.12 2.01 - 7.14 x10^9/L 02/11/2015 10:43 PM CDT [facility] Lymphocytes Absolute 3.11 1.07 - 3.94 x10^9/L 02/11/2015 10:43 PM CDT [facility] Monocytes Absolute 0.79 0.26 - 1.07 x10^9/L 02/11/2015 10:43 PM CDT [facility] Eosinophils Absolute 0.31 0 - 0.47 x10^9/L 02/11/2015 10:43 PM CDT [facility] Basophils Absolute 0.05 0 - 0.08 x10^9/L 02/11/2015 10:43 PM CDT [facility] Immature Granulocytes Absolute 0.02 0.00 - 0.06 x10^9/L 02/11/2015 10:43 PM CDT [facility] Blood BLOOD SPECIMEN / Unknown Venipuncture / Unknown 02/11/2015 10:34 PM CDT 02/11/2015 10:40 PM CDT Jono Parra DO LAB - HEMATOLOG Y ORDERABLES [facility] [address] [place] [address] documented in this encounter Visit Diagnoses Diagnosis Headache(784.0) Headache Abdominal pain, generalized documented in this encounter Administered Medications Inactive Administered Medications - up to 3 most recent administrations Medication Order MAR Action Action Date Dose Rate Site 0.9% NaCl IV Bolus 1,000 mL, ONCE, 1 dose, On 02/11/15 at 2230 $ Given 02/11/2015 10:35 PM CDT 1,000 mL diphenhydrAMINE (BENADRYL) injection 50 mg 50 mg, Intravenous, ONCE, 1 dose, On 02/11/15 at 2215 $ Given 02/11/2015 10:30 PM CDT 50 mg metoclopramide (REGLAN) injection 10 mg 10 mg, Intravenous, ONCE, 1 dose, On 02/11/15 at 2230 $ Given 02/11/2015 10:30 PM CDT 10 mg documented in this encounter Active and Recently Administered Medications Times are shown in CDT. Scheduled Medication Order 02/10/2015 02/11/2015 02/12/2015 0.9% NaCl IV Bolus (COMPLETED) 1,000 mL, ONCE, 1 dose, On 02/11/15 at 2230 2235 ($ Given - Provider: Baron RN) diphenhydrAMINE (BENADRYL) injection 50 mg (COMPLETED) 50 mg, Intravenous, ONCE, 1 dose, On 02/11/15 at 2215 2230 ($ Given - Provider: Baron RN) metoclopramide (REGLAN) injection 10 mg (COMPLETED) 10 mg, Intravenous, ONCE, 1 dose, On 02/11/15 at 2230 2230 ($ Given - Provider: Baron RN) documented in this encounter
--- OUTSIDE RECORDS SUMMARY | 2024-09-25 11:51 | XMS_ITS | Encounter Summary ---
Author Organization [facility] Address [address] [place] [address] Care Team Providers Care Ancillary Specialist Name Role Phone Unavailable Primary Care Provider Unavailabl e Reason for Visit * Reason Comments Dizziness dizziness around 110 0, no LOC Encounter Details Date Type Department Care Team (Late st Contact Info) Description 04/21/2015 9:49 PM CDT - 04/21/2015 10:32 PM CDT Emergency ER at [facility] [address] [place] [address] Doe Camargo MD [address] [place] [phone] Anxiety Discharge Disposition: Home or Self Care Social History Tobacco Use Types Packs/Day Years Used Date Smoking Tobacco: Every Day Cigarettes Smokeless Tobacco: Never Comments:[place] Alcohol Use Standard Drinks/Week Comments No 0 (1 standard drink = 0.6 oz pur e alcohol) rarely Sex and Gender Information Value Date Recorded Sex Assigned at Not on file Gender Identity Not on file Sexual Orientation Not on file documented as of this encounter Last Filed Vital Signs Vital Sign Reading Time Taken Comments Blood Pressure 118/78 04/21/2015 10:30 PM CDT Pulse 80 04/21/2015 10:30 PM CDT Temperature 36.6 ??C (97.8 ??F) 04/21/2015 10:30 PM C DT Respiratory Rate 18 04/21/2015 10:30 PM CDT Oxygen Saturation 100% 04/21/2015 10:30 PM CDT Inhaled Oxygen Concentration - - Weight 90.7 kg (200 lb) 04/21/2015 8:17 PM CDT Height 162.6 cm (5' 4.02 ) 04/21/2015 8:17 PM CD T Body Mass Index 34.31 04/21/2015 8:17 PM CDT documented in this encounter Functional [...] this encounter Discharge Instructions * Discharge Instructions* Doe Camargo MD - 04/21/2015 10:07 PM CDT Images from the original note were not included. Dizziness Dizziness is a common problem. It [...] is fine. ?? If you need to hop trainer one place for a long time, be [...] 11/15/2012 Document Reviewed: 03/12/2012 ExitCare?? Patient Information ??2014 [employer]. Anxiety and Panic Attacks Your caregiver has informed you that you are having an anxiety or panic attack. There may be many forms of this. Most of the time these attacks come suddenly and without warning. They come at any time of day, including periods of sleep, and at any time of life. They may be strong and unexplained. Although panic attacks are very scary, they are physically harmless. Sometimes the cause of your anxiety is not known. Anxiety is a protective mechanism of the body in its fight or flight mechanism. Most of these perceived danger situations are actually nonphysical situations (such as anxiety over losing a job). CAUSES The causes of an anxiety or panic attack are many. Panic attacks may occur in otherwise healthy people given a certain set of circumstances. There may be a genetic cause for panic attacks. Some medications may also have anxiety as a side effect. SYMPTOMS Some of the most common feelings are: ?? Intense terror. ?? Dizziness, feeling faint. ?? Hot and cold flashes. ?? Fear of going crazy. ?? Feelings that nothing is real. ?? Sweating. ?? Shaking. ?? Chest pain or a fast heartbeat (palpitations). ?? Smothering, choking sensations. ?? Feelings of impending doom and that is near. ?? Tingling of extremities, this may be from over-breathing. ?? Altered reality (derealization). ?? Being detached from yourself (depersonalization). Several symptoms can be present to make up anxiety or panic attacks. DIAGNOSIS The evaluation by your caregiver will depend on the type of symptoms you are experiencing. The diagnosis of anxiety or panic attack is made when no physical illness can be determined to be a cause ofthe symptoms. TREATMENT Treatment to prevent anxiety and panic attacks may include: ?? Avoidance of circumstances that cause anxiety. ?? Reassurance and relaxation. ?? Regular exercise. ?? Relaxation therapies, such as yoga. ?? Psychotherapy with a psychiatrist or therapist. ?? Avoidance of caffeine, alcohol and illegal drugs. ?? Prescribed medication. SEEK IMMEDIATE MEDICAL CARE IF: ?? You experience panic attack symptoms that are different than your usual symptoms. ?? You have any worsening or concerning symptoms. Document Released: 08/24/2006 Document Revised: 11/15/2012 Document Reviewed: 12/26/2010 ExitCare?? Patient Information ??2014 [employer]. documented in this encounter Medications at Time of Discharge Medication Sig Dispensed Refills Start Date End Date acyclovir (ZOVIRAX) 400 MG tablet Take 1 Tab by mouth 3 times daily for 7 days 21 Tab 0 04/17/2015 04/24/2015 albuterol HFA (PROVENTIL;VENTOLIN;PROA IR) 108 (90 BASE) MCG/ACT inhaler Inhale 2 Puffs by mouth every 6 hours as needed. 10/30/2015 loratadine (CLARITIN) 10 MG tablet Take 1 Tab by mouth once daily. 30 Tab 0 01/04/2015 09/30/2015 naproxen sodium (ANAPROX DS) 550 MG tablet Take 1 Tab by mouth 2 times daily as needed for Pain 20 Tab 0 04/17/2015 10/30/2015 penicillin v potassium (VEETIDS) 500 MG tablet Take 1 Tab by mouth 3 times daily for 10 days 30 Tab 0 04/13/2015 04/23/2015 predniSONE (DELTASONE) 10 MG tablet Take 4 tablets daily for 4 days, Then take 3 tablets daily for 2 days, Then take 2 tablets daily for 2 days, Then take 1 tablet daily for 2 days 28 Tab 0 04/13/2015 09/30/2015 documented as of this encounter ED Notes * Cristina Brock RN - 04/21/2015 10:29 PM CDT Pt discharged to home with written instructions and no Rx. Pt verbalized understanding. * Cristina Brock RN - 04/21/2015 10:27 PM CDT 25 y.o. female presenting to the ED with a chief complaint of dizziness. The patient began to feel dizzy at 11AM this morning, and she felt like she was going to pass out. She also had the feeling that her heart was racing. She had the nurses station at her job check her pulse, and it was high. Thepatient indicates that these symptoms are similar to the symptoms that she had during previous anxiety attacks. These anxiety attacks happened when she was in 2010, so she was unable to takemedications for them at the time. * Doe Camargo MD - 04/21/2015 9:57 PM CDT Provider contact with the patient: 04/21/2015 21:[id number] [facility] EMERGENCY DEPARTMENT History Chief Complaint Patient presents with ??? Dizziness dizziness around 1100, no LOC HPI Comments: Jumana Rivers is a 25 y.o. female presenting to the ED with a chief complaint of dizziness. The patient began to feel dizzy at 11AM this morning, and she felt like she was going to pass out. She also had the feeling that her heart was racing. She had the nurses station at her job check her pulse, and it was high. The patient indicates that these symptoms are similar to the symptoms that she had during previous anxiety attacks. These anxiety attacks happened when she was in 2010, so she was unable to take medications for them at the time. Dizzy Weak The primary symptoms include dizziness.The primary symptoms do not include no weakness.The history is provided by the patient. This is a new problem. The current episode started 6 to 12 hours ago. The time course is unknown.The problem is mild. The problem has not changed since onset.The patient is experiencing light-headedness.Associated symptoms include palpitations.Pertinent negatives include no chest pain, no abdominal pain, no headaches, no shortness of breath, no seizures, no nausea, no recent URI, no decreased po intake, no syncope, no ataxia, no vertigo, no double vision, no slurred speech or no dysphasia.Risk factors do not include .Nothing aggravates the symptoms. Nothingrelieves the symptoms. She has tried nothing for [...] Systems Constitutional: Negative for fever, chills and weight loss. HENT: Negative for congestion. Eyes: Negative. Negative for double vision and photophobia. Respiratory: Negative. Negative for shortness of breath. Cardiovascular: Positive for palpitations. Negative for chest pain. Gastrointestinal: Negative for nausea, vomiting, abdominal pain, diarrhea and blood in stool. Genitourinary: Negative for dysuria, urgency, frequency and hematuria. Musculoskeletal: Negative for myalgias, back pain and neck pain. Skin: Negative for rash. Neurological: Positive for dizziness. Negative for tingling, speech change, seizures, loss of consciousness, syncope, weakness and headaches. Psychiatric/Behavioral: Negative for depression, suicidal ideas and substance abuse. All other systems reviewed and are negative. Physical Exam BP 121/77 mmHg Pulse 90 Temp(Src) 98.2 ??F Resp 14 Ht 1.626 m (5' 4.02 ) Wt 90.719 kg (200 lb) BMI 34.31 kg/m2 SpO2 100% Physical Exam Constitutional: She [...] No thyromegaly present. Cardiovascular: Normal rate, regular rhythm, normal [...] no rebound and no guarding. No hernia. Musculoskeletal: Normal range of motion. She exhibits no edema. Lymphadenopathy: She has no cervical adenopathy. Neurological: She is alert and oriented to person, place, and time. She has normal reflexes. She displays normal reflexes. No cranial nerve deficit. She exhibits normal muscle tone. Coordination normal. Skin: Skin is warm and dry. No rash noted. No erythema. No pallor. Psychiatric: She has a normal mood and affect. Her behavior is normal. Judgment and thought contentnormal. Nursing note and vitals reviewed. Medications Current Outpatient Prescriptions Medication Sig Dispense Refill ??? naproxen sodium (ANAPROX DS) 550 MG tablet Take 1 Tab by mouth 2 times daily as needed for Pain20 Tab 0 ??? albuterol HFA (PROVENTIL;VENTOLIN;PROAIR) 108 (90 BASE) MCG/ACT inhaler Inhale 2 Puffs by mouthevery 6 hours as needed. ??? loratadine (CLARITIN) 10 MG tablet Take 1 Tab by mouth once daily. 30 Tab 0 ??? acyclovir (ZOVIRAX) 400 MG tablet Take 1 Tab by mouth 3 times daily for 7 days 21 Tab 0 ??? penicillin v potassium (VEETIDS) 500 MG tablet Take 1 Tab by mouth 3 times daily for 10 days 30Tab 0 ??? predniSONE (DELTASONE) 10 MG tablet Take 4 tablets daily for 4 days, Then take 3 tablets daily for 2 days, Then take 2 tablets daily for 2 days, Then take 1 tablet daily for 2 days 28 Tab 0 Procedures Procedures - None ECG Interpretation Date/Time: 04/21/2015 9:19 PM Interpreted by ED provider Rhythm: sinus rhythm Rhythm comments: normal Rate: normal BPM: 87 QRS axis: normal ST Segments: ST segments normal T Waves: T waves normal Clinical impression: normal ECG ECG Rhythm Interpretation Lab Interpretation Oxygen Saturation Interpretation The oxygen saturation level is: 100%. The patient was on Room Air for the saturation measurement. Measurement frequency: Spot Check. Oxygen saturation interpretation is Normal. Results for orders placed during the hospital encounter of 04/21/15 CBC W AUTO DIFFERENTIAL Result Value Ref Range WBC 8.9 4.4-10.7 x10^9/L WBC Corrected RBC 4.77 3.80-5.20 x10^12/L Hgb 13.2 12.0-15.6 gm/dL HCT 39.0 35.9-45.5 % MCV 81.8 80.7-98.3 fl MCH 27.7 26.7-34.0 pg MCHC 33.8 30.8-35.9 gm/dL Plt Ct 394 153-416 x10^9/L RDW-CV 13.9 12.1-14.9 % MPV 8.7 (*) 9.4-12.9 fl Neutro 41.3 (*) 44.0-73.0 % Lymph 43.2 (*) 20.0-43.0 % [place] 10.7 5.0-13.0 % Eos 2.6 0.0-6.0 % Baso 0.8 0.0-2.0 % Immature Grans 1.4 (*) 0-1 % Neutro Abs 3.67 2.01-7.14 x10^9/L Lymph Abs 3.83 1.07-3.94 x10^9/L [place] Abs 0.95 0.26-1.07 x10^9/L Eosin Abs 0.23 0-0.47 x10^9/L Baso Abs 0.07 0-0.08 x10^9/L Immature Grans (Abs) 0.12 (*) 0.00-0.06 x10^9/L BASIC METABOLIC PANEL (CALCIUM TOTAL) Result Value Ref Range Glucose 84 74-106 mg/dL Sodium 139 136-145 mmol/L Potassium 3.7 3.5-5.1 mmol/L Chloride 104 98-107 mmol/L CO2 30 22-31 mmol/L Calcium 9.0 8.5-10.1 mg/dL Anion Gap 5 5-20 mmol/L BUN 12 7-21 mg/dL Creatinine 0.61 0.50-1.30 mg/dL eGFR MDRD >60 >60 mL/min/1.73m2 eGFR MDRD AFR AMR >60 >60 mL/min/1.73m2 URINALYSIS ROUTINE W/REFLEX TO CULTURE Result Value Ref Range Color UA Yellow Straw, Yellow, Dark Yellow Clarity UA Clear Specific [place] UA >1.030 (*) 1.005-1.030 pH UA 6.0 5.0-8.0 pH Protein UA Negative Negative Blood UA 3+ (*) Negative Leukocyte UA Negative Negative Nitrite UA Negative Negative Glucose UA Negative Negative Ketone UA Negative Negative Bili UA Negative Negative Urobilinogen UA 1.0 0.1-1.0 EU/dL WBC UA Auto 5-10 (*) 0-2, 2-5 # /hpf RBC UA Auto 50-100 (*) 0-2, 2-5 # /hpf Epithelial Cell UA Auto 5-10 (*) 0-2, 2-5 # /hpf Reflex Status Culture not indicated HCG URINE QUALITATIVE - POINT OF CARE (IP) Result Value Ref Range HCG Qual Urine Negative Negative QC Verified Yes Yes No orders to display Progress Notes 9:57PM Initial Plan: Labs and an EKG will be ordered. The patient was instructed to follow up with her PCP for management of her anxiety attacks. 11:43 PM Rechecked pt -patient resting comfortably and feeling better. I discussed the results of diagnostic studies and my clinical impression with the patient. Patient agrees with plan and discharge at this time, all questions addressed. ED Course Medical Decision Making I have reviewed the: Previous Chart, Nursing Notes and Vitals. I have interpreted the following results: Labs, 12 Lead EKG and Oxygen Saturation. Orders Placed This Encounter ??? CBC W AUTO DIFFERENTIAL ??? BASIC METABOLIC PANEL (CALCIUM TOTAL) ??? URINALYSIS ROUTINE W/REFLEX TO CULTURE ??? HCG URINE QUALITATIVE - POINT OF CARE (IP) ??? EKG 12-LEAD ??? DISCONTD: 0.9% NaCl infusion Clinical Impression Final diagnoses: Dizziness Anxiety Pt is medically stable for d/c home [...] understanding of the discharge instructions. New Medications: Discharge Medication List as of 04/21/2015 10:16 PM I have advised the patient to follow-up with: [facility] In 2 days Disposition: Discharged I have reviewed the information recorded by the scribe and agree with its accuracy and contents--Dr. Diaz 04/21/2015 11:46 PM Transcribed by Alma Hair acting scribe on behalf of Dr. Mary Jo MD. 04/21/2015 9:57 PM documented in this encounter Plan of Treatment Not on file documented as of this encounter Procedures Procedure Name Priority Date/Time Associated Diagnosis Comments CBC W AUTO DIFFERENTIAL STAT 04/21/2015 9:25 PM CDT BASIC METABOLIC PANEL (CALCIUM TOTAL) STAT 04/21/2015 9:25 PM CDT EKG 12-LEAD STAT 04/21/2015 9:19 PM CDT Dizziness URINALYSIS REFLEX MICROSCOPIC REFLEX CULTURE STAT 04/21/2015 8:57 PM CDT HCG URINE QUALITATIVE - POINT OF CARE Routine 04/21/2015 8:57 PM CDT documented in this encounter Results * BASIC METABOLIC PANEL (CALCIUM TOTAL) (04/21/2015 9:25 PM CDT) Glucose 84 74 - 106 mg/dL 04/21/2015 9:42 PM CDT [facility] Sodium 139 136 - 145 mmol/L 04/21/2015 9:42 PM CDT [facility] Potassium 3.7 3.5 - 5.1 mmol/L 04/21/2015 9:42 PM CDT [facility] Chloride 104 98 - 107 mmol/L 04/21/2015 9:42 PM CDT [facility] CO2 30 22 - 31 mmol/L 04/21/2015 9:42 PM CDT [facility] Calcium 9.0 8.5 - 10.1 mg/dL 04/21/2015 9:42 PM CDT [facility] Anion Gap 5 5 - 20 mmol/L 04/21/2015 9:42 PM CDT [facility] BUN 12 7 - 21 mg/dL 04/21/2015 9:42 PM CDT [facility] Creatinine 0.61 0.50 - 1.30 mg/dL 04/21/2015 9:42 PM CDT [facility] eGFR by MDRD >60 >60 mL/min/1.7 3m2 04/21/2015 9:42 PM CDT [facility] eGFR by MDRD >60 >60 mL/min/1.7 3m2 04/21/2015 9:42 PM CDT [facility] Blood BLOOD SPECIMEN / Unknown Venipuncture / Unknown 04/21/2015 9:25 PM CDT 04/21/2015 9:28 PM CDT Doe Camargo MD LAB - CHEMISTR Y ORDERABLES [facility] [address] [place] [address] * (ABNORMAL) CBC W AUTO DIFFERENTIAL (04/21/2015 9:25 PM CDT) WBC 8.9 4.4 - 10.7 x10^9/L 04/21/2015 9:31 PM CDT [facility] WBC Corrected x10^9/L 04/21/2015 9:31 PM CDT [facility] RBC 4.77 3.80 - 5.20 x10^12/L 04/21/2015 9:31 PM CDT [facility] Hemoglobin 13.2 12.0 - 15.6 gm/dL 04/21/2015 9:31 PM CDT [facility] Hematocrit 39.0 35.9 - 45.5 % 04/21/2015 9:31 PM CDT [facility] MCV 81.8 80.7 - 98.3 fl 04/21/2015 9:31 PM CDT [facility] MCH 27.7 26.7 - 34.0 pg 04/21/2015 9:31 PM CDT [facility] MCHC 33.8 30.8 - 35.9 gm/dL 04/21/2015 9:31 PM CDT [facility] Platelet Count 394 153 - 416 x10^9/L 04/21/2015 9:31 PM CDT [facility] RDW-CV 13.9 12.1 - 14.9 % 04/21/2015 9:31 PM CDT [facility] MPV 8.7(L) 9.4 - 12.9 fl 04/21/2015 9:31 PM CDT [facility] Neutrophils % 41.3(L) 44.0 - 73.0 % 04/21/2015 9:31 PM CDT [facility] Lymphocytes % 43.2(H) 20.0 - 43.0 % 04/21/2015 9:31 PM CDT [facility] Monocytes % 10.7 5.0 - 13.0 % 04/21/2015 9:31 PM CDT [facility] Eosinophils % 2.6 0.0 - 6.0 % 04/21/2015 9:31 PM CDT [facility] Basophils % 0.8 0.0 - 2.0 % 04/21/2015 9:31 PM CDT [facility] Immature Granulocytes 1.4(H) 0 - 1 % 04/21/2015 9:31 PM CDT [facility] Neutrophil Absolute 3.67 2.01 - 7.14 x10^9/L 04/21/2015 9:31 PM CDT [facility] Lymphocytes Absolute 3.83 1.07 - 3.94 x10^9/L 04/21/2015 9:31 PM CDT [facility] Monocytes Absolute 0.95 0.26 - 1.07 x10^9/L 04/21/2015 9:31 PM CDT [facility] Eosinophils Absolute 0.23 0 - 0.47 x10^9/L 04/21/2015 9:31 PM CDT [facility] Basophils Absolute 0.07 0 - 0.08 x10^9/L 04/21/2015 9:31 PM T [facility] Immature Granulocytes Absolute 0.12(H) 0.00 - 0.06 x10^9/L 04/21/2015 9:31 PM T [facility] Blood BLOOD SPECIMEN / Unknown Venipuncture / Unknown 04/21/2015 9:25 PM CDT 04/21/2015 9:28 PM CDT Doe Camargo MD LAB - HEMATOLO GY ORDERABLES [facility] [address] [place] [address] * EKG 12-LEAD (04/21/2015 9:19 PM CDT) Ventricular Rate 87 BPM [facility] Atrial Rate 87 BPM [facility] P-R Interval 140 ms [facility] QRS Duration ms 80 ms [facility] Q-T Interval ms 362 ms [facility] QTC Calculation (Bezet) 435 ms [facility] Calculated P [place] 39 degrees [facility] Calculated R [place] 19 degrees [facility] Calculated T [place] 4 degrees [facility] Interpretation EKG NORMAL SINUS RHYTHM NORMAL ECG NO PREVIOUS ECGS AVAILABLE Confirmed by Marty Del Castillo ([id number]) on 04/22/2015 7:13:49 AM [facility] 04/21/2015 9:19 PM CDT 04/22/2015 7:13 AM CDT Doe Camargo MD ECG ORDERABLES [facility] * (ABNORMAL) URINALYSIS ROUTINE W/REFLEX TO CULTURE (04/21/2015 8:57 PM CDT) Color UA Yellow Straw, Yellow, Dark Yellow 04/21/2015 9:31 PM CDT [facility] Clarity UA Clear 04/21/2015 9:31 PM CDT [facility] Specific [place] UA >1.030(H) 1.005 - 1.030 04/21/2015 9:31 PM CDT [facility] pH UA 6.0 5.0 - 8.0 pH 04/21/2015 9:31 PM CDT [facility] Protein UA Negative Negative 04/21/2015 9:31 PM CDT [facility] Blood UA 3+(A) Negative 04/21/2015 9:31 PM CDT [facility] Leukocyte UA Negative Negative 04/21/2015 9:31 PM CDT [facility] Nitrite UA Negative Negative 04/21/2015 9:31 PM CDT [facility] Glucose UA Negative Negative 04/21/2015 9:31 PM CDT [facility] Ketone UA Negative Negative 04/21/2015 9:31 PM CDT [facility] Bilirubin UA Negative Negative 04/21/2015 9:31 PM CDT [facility] Urobilinogen UA 1.0 0.1 - 1.0 EU/dL 04/21/2015 9:31 PM CDT [facility] WBC UA Auto 5-10(A) 0-2, 2-5 # /hpf 04/21/2015 9:31 PM CDT [facility] RBC UA Auto 50-100(A) 0-2, 2-5 # /hpf 04/21/2015 9:31 PM CDT [facility] Epithelial Cell UA Auto 5-10(A) 0-2, 2-5 # /hpf 04/21/2015 9:31 PM CDT [facility] Reflex Status Culture not indicated 04/21/2015 9:31 PM CDT [facility] Urine URINE SPECIMEN OBTAINED BY CLEAN CATCH PROCEDURE / Unknown Collection / Unknown 04/21/2015 8:57 PM CDT 04/21/2015 9:20 PM CDT Doe Camargo MD LAB - URINALYS IS ORDERABLES [facility] [address] [place] [address] * HCG URINE QUALITATIVE - POINT OF CARE (IP) (04/21/2015 8:57 PM CDT) HCG Qual Urine Negative Negative [facility] QC Verified Yes Yes [facility] Urine specimen (specimen) URINE / Unknown 04/21/2015 8:57 PM CDT Doe Camargo MD LAB - POINT OF CARE ORDERABLES Performing Organization Address City/[facility]/ZIP Co de Phone Number [facility] [address] [place] [address] documented in this encounter Visit Diagnoses Diagnosis Dizziness Dizziness and giddiness Anxiety Anxiety state, unspecified documented in this encounter Active and Recently Administered Medications
--- OUTSIDE RECORDS SUMMARY | 2024-09-25 11:51 | XMS_ITS | Encounter Summary ---
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 Name Role Phone Unavailable Primary Care Provider Unavailabl e Reason for Visit * Reason Comments Asthma difficulty breathing started today Encounter Details Date Type Department Care Team (Late st Contact Info) Description 01/04/2015 5:49 PM CDT - 01/04/2015 8:31 PM CDT Emergency ER at [facility] [address] [place] [address] [phone] Asthma exacerbation (HCC); Seasonal allergies Discharge Disposition: Home or Self Care Social [...] Sign Reading Time Taken Comments Blood Pressure 109/71 01/04/2015 6:44 PM CDT Pulse 92 01/04/2015 8:30 PM CDT Temperature 37.1 ??C (98.7 ??F) 01/04/2015 6:44 PM CD T Respiratory Rate 18 01/04/2015 8:30 PM CDT Oxygen Saturation 100% 01/04/2015 8:30 PM CDT Inhaled Oxygen Concentration - - Weight 87.1 kg (192 lb) 01/04/2015 6:44 PM CDT Height 162.6 cm (5' 4.02 ) 01/04/2015 6:44 PM CD T Body Mass Index 32.94 01/04/2015 6:44 PM CDT documented in this encounter Functional [...] this encounter Discharge Instructions * Discharge Instructions* Alia Xavier PA - 01/04/2015 8:20 PM CDT Images from the original note were not included. Asthma, Adult Asthma is a condition that affects your lungs. It is characterized by swelling and narrowing of your airways as well as increased mucus production. The narrowing comes from swelling and muscle spasmsinside the airways. When this happens, breathing can be difficult and you can have coughing, wheezing, and shortness of breath. Knowing more about asthma can help you manage it better. Asthma cannot be cured, but medicines and lifestyle changes can help control it. Asthma can be a minor problem forsome people but if it is not controlled it can lead to a life-threatening asthma attack. Asthma canchange over time. It is important to work with your caregiver to manage your asthma symptoms. CAUSES The exact cause of asthma is unknown. Asthma is believed to be caused by inherited (genetic) and environmental exposures. Swelling and redness (inflammation) of the airways occurs in asthma. This canbe triggered by allergies, viral lung infections, or irritants in the air. Allergic reactions can cause you to wheeze immediately or several hours after an exposure. Asthma triggers are different foreach person. It is important to pay attention and know what triggers your asthma. Common triggers for asthma attacks include: ?? Animal dander from the skin, hair, or feathers of animals. ?? Dust mites contained in house dust. ?? Cockroaches. ?? Pollen from trees or grass. ?? Mold. ?? Cigarette or tobacco smoke. Smoking cannot be allowed in homes of people with asthma. People with asthma should not smoke and should not be around smokers. ?? Air pollutants such as dust, household fuel house attendant, hair sprays, aerosol sprays, paint fumes, strong chemicals, or strong odors. ?? Cold air or weather changes. Cold air may cause inflammation. Winds increase molds and pollens in the air. There is not one best climate for people with asthma. ?? Strong emotions such as crying or laughing hard. ?? Stress. ?? Certain medicines such as aspirin or beta-blockers. ?? Sulfites in such foods and drinks as dried fruits and wine. ?? Infections or inflammatory conditions such as the flu, a cold, or an inflammation of the nasal membranes (rhinitis). ?? Gastroesophageal reflux disease (GERD). GERD is a condition where stomach acid backs up into your throat (esophagus). ?? Exercise or strenous activity. Proper pre-exercise medicines allow most people to participate insports. SYMPTOMS ?? Feeling short of breath. ?? Chest tightness or pain. ?? Difficulty sleeping due to coughing, wheezing, or feeling short of breath. ?? A whistling or wheezing sound with exhalation. ?? Coughing or wheezing that is worse when you: ?? Have a virus (such as a cold or the flu). ?? Are suffering from allergies. ?? Are exposed to certain fumes or chemicals. ?? Exercise. Signs that your asthma is probably getting worse include: ?? More frequent and bothersome asthma signs and symptoms. ?? Increasing difficulty breathing. This can be measured by a peak flow meter, which is a simple device used to check how well your lungs are working. ?? An increasingly frequent need to use a quick-relief inhaler. DIAGNOSIS The diagnosis of asthma is made by review of your medical history, a physical exam, and possibly from other tests. Lung function studies may help with the diagnosis. TREATMENT Asthma cannot be cured. However, for the majority of adults, asthma can be controlled with treatment. Besides avoidance of triggers of your asthma, medicines are often required. There are 2 classes of medicine used for asthma treatment: controller medicines (reduce inflammation and symptoms) andreliever or rescue medicines (relieve asthma symptoms during acute attacks). You may require daily medicines to control your asthma. The most effective long-term controller medicines for asthma are inhaled corticosteroids (blocks inflammation). Other long-term control medicines include: ?? Leukotriene receptor antagonists (blocks a pathway of inflammation). ?? Long-acting beta2-agonists (relaxes the muscles of the airways for at least 12 hours) with an inhaled corticosteroid. ?? Cromolyn sodium or nedocromil (alters certain inflammatory cells' ability to release chemicals that cause inflammation). ?? Immunomodulators (alters the immune system to prevent asthma symptoms). ?? Theophylline (relaxes muscles in the airways). You may also require a short-acting beta2-agonist to relieve asthma symptoms during an acute attack. You should understand what to do during an acute attack. Inhaled medicines are effective when used properly. Read the instructions on how to use your medicines correctly and speak to your caregiver if you have questions. Follow up with your caregiver on a regular basis to make sure your asthma is well-controlled. If your asthma is not well-controlled, if you have been hospitalized for asthma, or if multiple medicines or medium to high doses of inhaled corticosteroids are needed to control your asthma, request a referral to an asthma specialist. HOME CARE INSTRUCTIONS ?? Take medicines as directed by your caregiver. ?? Control your home environment in the following ways to help prevent asthma attacks: ?? Change your heating and air conditioning filter at least once a month. ?? Place a filter or cheesecloth over your heating and air conditioning vents. ?? Limit the use of fireplaces and wood stoves. ?? Do not smoke. Do not stay in places where others are smoking. ?? Get rid of pests (such as roaches and mice) and their droppings. ?? If you see mold on a plant, throw it away. ?? Clean your floors and dust every week. Use unscented cleaning products. Use a vacuum paper cleaner with a HEPA filter if possible. If vacuuming or cleaning triggers your asthma, try to find someone elseto do these chores. ?? Floors in your house should be wood, tile, or vinyl. Carpet can trap dander and dust. ?? Use allergy-proof pillows, mattress covers, and box spring covers. ?? Wash bedsheets and blankets every week in hot water and dry in a dryer. ?? Use a blanket that is made of polyester or cotton with a tight nap. ?? Do not use a dust ruffle on your bed. ?? Clean bathrooms and dillon with bleach and repaint with mold-resistant paint. ?? Wash hands frequently. ?? Talk to your caregiver about an action plan for managing asthma attacks. This includes the use of a peak flow meter which measures the severity of the attack and medicines that can help stop the attack. An action plan can help minimize or stop the attack without having to seek medical care. ?? Remain calm during an asthma attack. ?? Always have a plan prepared for seeking medical attention. This should include contacting your caregiver and in the case of a severe attack, calling your local emergency services (911 in [place] SEEK MEDICAL CARE IF: ?? You have wheezing, shortness of breath, or a cough even if taking medicine to prevent attacks. ?? You have thickening of sputum. ?? Your sputum changes from clear or white to yellow, green, gonzalez, or bloody. ?? You have any problems that may be related to the medicines you are taking (such as a rash, itching, swelling, or trouble breathing). ?? You are using a reliever medicine more than 2 3 times per week. ?? Your peak flow is still at 50 79% of personal best after following your action plan for 1 hour. SEEK IMMEDIATE MEDICAL CARE IF: ?? You are short of breath even at rest. ?? You get short of breath when doing very little physical activity. ?? You have difficulty eating, drinking, or talking due to asthma symptoms. ?? You have chest pain or you feel that your heart is beating fast. ?? You have a bluish color to your lips or fingernails. ?? You are lightheaded, dizzy, or faint. ?? You have a fever or persistent symptoms for more than 2 3 days. ?? You have a fever and symptoms suddenly get worse. ?? You seem to be getting worse and are unresponsive to treatment during an asthma attack. ?? Your peak flow is less than 50% of personal best. MAKE SURE YOU: ?? Understand these instructions. ?? Will watch your condition. ?? Will get help right away if you are not doing well or get worse. Document Released: 08/24/2006 Document Revised: 08/10/2013 Document Reviewed: 04/11/2009 ExitCare?? Patient Information ??2013 [employer]. documented in this encounter Medications at Time [...] as of this encounter ED Notes * Carlee Neves RN - 01/04/2015 8:30 PM CDT D/c instructions given to pt, she states she understands and has no questions. Pt is amb out with steady gait. * Alia Xavier PA - 01/04/2015 7:12 PM CDT Provider contact with the patient: 01/04/2015 19:12 Datreion Deven [place] [id number] [facility]ENC[facility] History Chief Complaint Patient presents with ??? Asthma difficulty breathing started today HPI Comments: 24 yo female, reports productive cough for past 2 weeks. +SOB and wheezing. Using inhaler with some relief. No fever/chills . Wheezing The history is provided by the patient. This is a recurrent problem. The current episode started more than 1 week ago. The problem occurs intermittent. There has been headaches, cough and sputum production (clear). There has been no chest pain, no fever, no abdominal pain, no vomiting, no diarrhea,no coryza, no ear pain, no rhinorrhea, no sore throat, no swollen glands, no neck pain, no hemoptysis, no rash and no dyspnea.The problem's precipitants include weather change. The type of inhaler(s)that the patient uses is albuterol.She has tried beta-agonist inhalers for the symptoms. The treatment provided mild relief. Past Medical History Diagnosis Date ??? [...] Negative. Negative for fever and chills. HENT: Negative for ear pain, rhinorrhea and sore throat. Eyes: Negative. Negative for blurred vision and double vision. Respiratory: Positive for cough, sputum production (clear) and wheezing. Negative for hemoptysis and shortness of breath. Cardiovascular: Negative. Negative for chest pain. Gastrointestinal: Negative. Negative for vomiting, abdominal pain and diarrhea. Genitourinary: Negative. Musculoskeletal: Negative. Negative for neck pain. Skin: Negative. Negative for rash. Neurological: Positive for headaches. Negative for dizziness. All other systems reviewed and are negative. Physical Exam BP 109/71 Pulse 80 Temp(Src) 98.7 ??F Resp 18 Ht 1.626 m (5' 4.02 ) Wt 87.091 kg (192 lb) BMI 32.94 kg/m2 SpO2 100% Physical Exam Constitutional: She is oriented to person, place, and time. She appears well- developed and well-nourished. No distress. HENT: Head: Normocephalic and atraumatic. Eyes: Conjunctivae and EOM are normal. Neck: Normal range of motion. Neck supple. Cardiovascular: Normal rate, regular rhythm and normal heart sounds. Pulmonary/Chest: Effort normal and breath sounds normal. No respiratory distress. Abdominal: Soft. Bowel sounds are normal. Musculoskeletal: Normal range of motion. Neurological: She [...] needed for Pain. 20 Tab 0 Procedures Procedures ECG Interpretation ECG Interpretation Lab/SPO2 Interpretation Results for orders placed during the hospital encounter of 01/04/15 URINALYSIS ROUTINE W/REFLEX TO CULTURE Result Value Ref Range Color UA Yellow Straw, Yellow, Dark Yellow Clarity UA Clear Specific [place] UA 1.021 1.005-1.030 pH UA 7.0 5.0-8.0 pH Protein UA Negative Negative Blood UA 3+ (*) Negative Leukocyte UA 2+ (*) Negative Nitrite UA Negative Negative Glucose UA Negative Negative Ketone UA Negative Negative Bili UA Negative Negative Urobilinogen UA 1.0 0.1-1.0 EU/dL WBC UA Auto 5-10 (*) 0-2, 2-5 #/hpf RBC UA Auto 5-10 (*) 0-2, 2-5 #/hpf Epithelial Cell UA Auto 5-10 (*) 0-2, 2-5 #/hpf Bacteria UA Auto 1+ (*) None seen Reflex Status Culture to follow HCG URINE QUALITATIVE - POINT OF CARE (IP) Result Value Ref Range HCG Qual Urine Negative Negative QC Verified Yes Yes XR CHEST PA AND LATERAL (ROUTINE) Final Result Chest x-ray 2 views. History: Headache. 2 views of the chest show normal heart size with normal vessels. Lungs are clear. IMPRESSION Clear lungs. Progress Notes 8:29 PM: At this present time, a medical screening exam has been completed. It is determined that the patient does not have an emergency medical condition and is stable for discharge. Discussed with patient ED evaluative findings and diagnosis at this time. Patient informed of plan for discharge and follow-up with PMD. Patient voices their understanding of the ED findings and diagnosis at this time, and agrees with the plan for discharge. Patient given appropriate return to ED and discharge instructions at this time. Patient voices their understanding. Patient informed that their follow-up instructions will be provided on their after visit summary. Patient informed that theywill be provided with a prescription prior to discharge, with which they are to remain medically compliant. Patient voices their understanding. All other questions answered. ED Course Medical Decision Making I have reviewed the: Nursing Notes and Vitals. I have interpreted the following results: Labs, X-Ray and Oxygen Saturation. Orders Placed This Encounter ??? CULTURE URINE ??? XR CHEST PA AND LATERAL (ROUTINE) ??? URINALYSIS ROUTINE W/REFLEX TO CULTURE ??? PATIENT EDUCATION RESPIRATORY THERAPY ??? HCG URINE QUALITATIVE - POINT OF CARE (IP) ??? albuterol (PROVENTIL;VENTOLIN) (5 MG/ML) 0.5% nebulizer solution 2.5 mg And ??? ipratropium (ATROVENT) nebulizer solution 0.5 mg ??? predniSONE (DELTASONE) tablet 60 mg ??? loratadine (CLARITIN) 10 MG tablet ??? predniSONE (DELTASONE) 20 MG tablet Clinical Impression Final diagnoses: Cough Asthma exacerbation Seasonal allergies * Carlee Neves RN - 01/04/2015 6:49 PM CDT Pt is here for her asthma and allergies. Pt states she has clear productive cough. Pt is speaking in full clear sentences. No distress observed. documented in this encounter Plan of Treatment Not on file documented as of this encounter Procedures Procedure Name Priority Date/Time Associated Diagnosis Comments XR CHEST 2VW STAT 01/04/2015 8:11 PM CDT Cough PATIENT EDUCATION RESPIRATORY THERAPY Routine 01/04/2015 7:46 PM CDT HCG URINE QUALITATIVE - POINT OF CARE Routine 01/04/2015 7:29 PM CDT URINALYSIS REFLEX MICROSCOPIC REFLEX CULTURE STAT 01/04/2015 7:26 PM CDT CULTURE URINE STAT 01/04/2015 7:26 PM CDT documented in this encounter Results * XR CHEST PA AND LATERAL (ROUTINE) (01/04/2015 8:11 PM CDT) Anatomical Region Laterality Modality Chest Radiographic Christin ging 01/04/2015 8:13 PM CDT Impressions 01/04/2015 8:13 PM CDT Clear lungs. Narrative 01/04/2015 8:13 PM CDT Chest x-ray 2 views. History: Headache. 2 views of the chest show normal heart size with normal vessels. Lungs are clear. Procedure Note Barak Leigh MD - 01/04/2015 Chest x-ray 2 views. History: Headache. 2 views of the chest show normal heart size with normal vessels. Lungs are clear. IMPRESSION Clear lungs. [facility] RDER[facility]LES * HCG URINE QUALITATIVE - POINT OF CARE (IP) (01/04/2015 7:29 PM CDT) HCG Qual Urine Negative Negative [facility] POCT TESTING QC Verified Yes Yes [facility] POC T TESTING Urine specimen (specimen) URINE / Unknown 01/04/2015 7:29 PM CDT [facility] - POINT OF CARE ORDERABLES [facility] POCT TESTING [address] [phone] * CULTURE URINE (01/04/2015 7:26 PM CDT) Culture <10,000 CFU/mL normal urogenital marco CHRYSTAL 01/06/2015 11:17 AM CDT [facility] Urine URINE SPECIMEN OBTAINED BY CLEAN CATCH PROCEDURE / Unknown 01/04/2015 7:26 PM CDT 01/04/2015 7:29 PM CDT [facility] - MICROBIOLOGY O RDERABLES [facility] [address] [place] [address], [facility] [phone] * (ABNORMAL) URINALYSIS ROUTINE W/REFLEX TO CULTURE (01/04/2015 7:26 PM CDT) Color UA Yellow Straw, Yellow, Dark Yellow 01/04/2015 7:36 PM CDT [facility] Clarity UA Clear 01/04/2015 7:36 PM CDT [facility] Specific [place] UA 1.021 1.005 - 1.030 01/04/2015 7:36 PM CDT [facility] pH UA 7.0 5.0 - 8.0 pH 01/04/2015 7:36 PM CDT [facility] Protein UA Negative Negative 01/04/2015 7:36 PM CDT [facility] Blood UA 3+(A) Negative 01/04/2015 7:36 PM CDT [facility] Leukocyte UA 2+(A) Negative 01/04/2015 7:36 PM CDT [facility] Nitrite UA Negative Negative 01/04/2015 7:36 PM CDT [facility] Glucose UA Negative Negative 01/04/2015 7:36 PM CDT [facility] Ketone UA Negative Negative 01/04/2015 7:36 PM CDT [facility] Bilirubin UA Negative Negative 01/04/2015 7:36 PM CDT [facility] Urobilinogen UA 1.0 0.1 - 1.0 EU/dL 01/04/2015 7:36 PM CDT [facility] WBC UA Auto 5-10(A) 0-2, 2-5 #/hpf 01/04/2015 7:36 PM CDT [facility] RBC UA Auto 5-10(A) 0-2, 2-5 #/hpf 01/04/2015 7:36 PM CDT [facility] Epithelial Cell UA Auto 5-10(A) 0-2, 2-5 #/hpf 01/04/2015 7:36 PM CDT [facility] Bacteria UA Auto 1+(A) None seen 01/04/2015 7:36 PM CDT [facility] Reflex Status Culture to follow 01/04/2015 7:36 PM CDT [facility] Urine URINE SPECIMEN OBTAINED BY CLEAN CATCH PROCEDURE / Unknown 01/04/2015 7:26 PM CDT 01/04/2015 7:29 PM CDT [facility] - URINALYSIS ORD ERABLES [facility] [address] [place], [place] [id number] documented in this encounter Visit Diagnoses Diagnosis Cough Asthma exacerbation (HCC) Unspecified asthma, with exacerbation Seasonal allergies Allergic rhinitis, cause unspecified documented in this encounter Administered Medications Inactive Administered Medications - up to 3 most recent administrations Medication Order MAR Action Action Date Dose Rate Site albuterol (PROVENTIL;VENTOLIN) (5 MG/ML) 0.5% nebulizer solution 2.5 mg 2.5 mg, Inhalation, PRN, Shortness of Breath, Wheezing, Starting on Emma 01/04/15 at 1912, Until Emma 01/04/15 at 2130, Dilute prior to administration via nebulization. $ Given 01/04/2015 7:43 PM CDT 2.5 mg ipratropium (ATROVENT) nebulizer solution 0.5 mg 0.5 mg, Inhalation, PRN, Shortness of Breath, Wheezing, Starting on Emma 01/04/15 at 1912, Until Emma 01/04/15 at 2130 $ Given 01/04/2015 7:43 PM CDT 0.5 mg predniSONE (DELTASONE) tablet 60 mg 60 mg, Oral, ONCE, 1 dose, On Emma 01/04/15 at 1945 $ Given 01/04/2015 7:24 PM CDT 60 mg documented in this encounter Active and Recently Administered Medications Times are shown in CDT. Scheduled Medication Order 01/02/2015 01/03/2015 01/04/2015 predniSONE (DELTASONE) tablet 60 mg (COMPLETED) 60 mg, Oral, ONCE, 1 dose, On Emma 01/04/15 at 1945 1924 ($ Given - [employer] ider: Carlee Neves RN) PRN Medication Order 01/02/2015 01/03/2015 01/04/2015 albuterol (PROVENTIL;VENTOLIN) (5 MG/ML) 0.5% nebulizer solution 2.5 mg (CANCELED)(Linked Group 1) 2.5 mg, Inhalation, PRN, Shortness of Breath, Wheezing, Starting on Emma 01/04/15 at 1912, Until Emma 01/04/15 at 2130, Dilute prior to administration via nebulization. 1942 ($ [employer] - Prov ider: Benny Fraga RCP) ipratropium (ATROVENT) nebulizer solution 0.5 mg (CANCELED)(Linked Group 1) 0.5 mg, Inhalation, PRN, Shortness of Breath, Wheezing, Starting on Emma 01/04/15 at 1912, Until Emma 01/04/15 at 2130 1942 ([employer] - [employer] ider: Benny Fraga RCP) Linked Groups Order Group 1: albuterol (PROVENTIL;VENTOLIN) (5 MG/ML) 0.5% nebulizer solution 2.5 mg (CANCELED)Jump to med 2.5 mg, Inhalation, PRN, Shortness of Breath, Wheezing, Starting on Emma 01/04/15 at 1912, Until Emma 01/04/15 at 2130, Dilute prior to administration via nebulization. And ipratropium (ATROVENT) nebulizer solution 0.5 mg (CANCELED)Jump to med 0.5 mg, Inhalation, PRN, Shortness of Breath, Wheezing, Starting on Emma 01/04/15 at 1912, Until Emma 01/04/15 at 2130 documented in this encounter
--- OUTSIDE RECORDS SUMMARY | 2024-09-25 11:51 | XMS_ITS | Encounter Summary ---
Author Organization [facility], formerly [facility] Address [address] [place] [address] Care Team Providers Care Operations Program Manager Name Role Phone Unavailable Primary Care Provider Unavailabl e Reason for Visit * Reason Comments Pain Abdominal AP with hematuria th is morning Blood in urine Encounter Details Date Type Department Care Team (Late st Contact Info) Description 10/11/2015 7:31 PM MUSSEL OPENER - 10/12/2015 12:19 AM MUSSEL OPENER Emergency ER at [facility] [address] [place] [address] [place] [address] [place] [address] [place] [id number] Kidney stone (Primary Dx); Abdominal pain, generalized Discharge Disposition: Home or [...] Sign Reading Time Taken Comments Blood Pressure 110/74 10/12/2015 12:11 AM MUSSEL OPENER Pulse 78 10/12/2015 12:11 AM MUSSEL OPENER Temperature 36.7 ??C (98 ??F) 10/12/2015 12:11 AM MUSSEL OPENER Respiratory Rate 18 10/12/2015 12:11 AM MUSSEL OPENER Oxygen Saturation 100% 10/12/2015 12:11 AM MUSSEL OPENER Inhaled Oxygen Concentration - - Weight 88 kg (194 lb) 10/11/2015 3:07 PM MUSSEL OPENER Height 162.6 cm (5' 4.02 ) 10/11/2015 3:07 PM CS T Body Mass Index 33.28 10/11/2015 3:07 PM MUSSEL OPENER documented in this encounter Functional Status Functional [...] this encounter Discharge Instructions * Discharge Instructions* Clarke Morris MD - 10/12/2015 12:00 AM MUSSEL OPENER Images from the original note were not included. Abdominal Pain (Nonspecific) Your exam might not show the exact reason you have abdominal pain. Since there are many different causes of abdominal pain, another checkup and more tests may be needed. It is very important to follow up for lasting (persistent) or worsening symptoms. A possible cause of abdominal pain in any person who still has his or her appendix is acute appendicitis. Appendicitis is often hard to diagnose. Normal blood tests, urine tests, ultrasound, and CT scans do not completely rule out early appendicitis or other causes of abdominal pain. Sometimes, only the changes that happen over time will allow appendicitis and other causes of abdominal pain to be determined. Other potential problems that may require surgery may also take time to become more apparent. Because of this, it is important that youfollow all of the instructions below. HOME CARE INSTRUCTIONS ?? Rest as much as possible. ?? Do not eat solid food until your pain is gone. ?? While adults or children have pain: A diet of water, weak decaffeinated tea, broth or bouillon, gelatin, oral rehydration solutions (ORS), frozen ice pops, or ice chips may be helpful. ?? When pain is gone in adults or children: Start a light diet (dry toast, crackers, applesauce, orwhite rice). Increase the diet slowly as long as it does not bother you. Eat no dairy products (including cheese and eggs) and no spicy, fatty, fried, or high-fiber foods. ?? Use no alcohol, caffeine, or cigarettes. ?? Take your regular medicines unless your caregiver told you not to. ?? Take any prescribed medicine as directed. ?? Only take [id number] or prescription medicines for pain, discomfort, or fever as directed by your caregiver. Do not give aspirin to children. If your caregiver has given you a follow-up appointment, it is very important to keep that appointment. Not keeping the appointment could result in a permanent injury and/or lasting (chronic) pain and/or disability. If there is any problem keeping the appointment, you must call to reschedule. SEEK IMMEDIATE MEDICAL CARE IF: ?? Your pain is not gone in 24 hours. ?? Your pain becomes worse, changes location, or feels different. ?? You or your child has an oral temperature above 102?? F (38.9?? C), not controlled by medicine. ?? Your baby is older than 3 months with a rectal temperature of 102?? F (38.9?? C) or higher. ?? Your baby is 3 months old or younger with a rectal temperature of 100.4?? F (38?? C) or higher. ?? You have shaking chills. ?? You keep throwing up (vomiting) or cannot drink liquids. ?? There is blood in your vomit or you see blood in your bowel movements. ?? Your bowel movements become dark or black. ?? You have frequent bowel movements. ?? Your bowel movements stop (become blocked) or you cannot pass gas. ?? You have bloody, frequent, or painful urination. ?? You have yellow discoloration in the skin or whites of the eyes. ?? Your stomach becomes bloated or bigger. ?? You have dizziness or fainting. ?? You have chest or back pain. MAKE SURE YOU: ?? Understand these instructions. ?? Will watch your condition. ?? Will get help right away if you are not doing well or get worse. Document Released: 08/24/2006 Document Revised: 11/15/2012 Document Reviewed: 07/22/2010 ExitCare?? Patient Information ??2013 [employer]. Kidney Stones Kidney stones (ureteral lithiasis) are deposits that form inside your kidneys. The intense pain is caused by the stone moving through the urinary tract. When the stone moves, the ureter goes into spasm around the stone. The stone is usually passed in the urine. CAUSES ?? A disorder that makes certain neck glands produce too much parathyroid hormone (primary hyperparathyroidism). ?? A buildup of uric acid crystals. ?? Narrowing (stricture) of the ureter. ?? A kidney obstruction present at (congenital obstruction). ?? Previous surgery on the kidney or ureters. ?? Numerous kidney infections. SYMPTOMS ?? Feeling sick to your stomach (nauseous). ?? Throwing up (vomiting). ?? Blood in the urine (hematuria). ?? Pain that usually spreads (radiates) to the groin. ?? Frequency or urgency of urination. DIAGNOSIS ?? Taking a history and physical exam. ?? Blood or urine tests. ?? Computerized X-ray scan (CT scan). ?? Occasionally, an examination of the inside of the urinary bladder (cystoscopy) is performed. TREATMENT ?? Observation. ?? Increasing your fluid intake. ?? Surgery may be needed if you have severe pain or persistent obstruction. The size, location, and chemical composition are all important variables that will determine the proper choice of action for you. Talk to your caregiver to better understand your situation so that you will minimize the risk of injury to yourself and your kidney. HOME CARE INSTRUCTIONS ?? Drink enough water and fluids to keep your urine clear or pale yellow. ?? Strain all urine through the provided strainer. Keep all particulate matter and stones for your caregiver to see. The stone causing the pain may be as small as a grain of salt. It is very important to use the strainer each and every time you pass your urine. The collection of your stone will allow your caregiver to analyze it and verify that a stone has actually passed. ?? Only take [id number] or prescription medicines for pain, discomfort, or fever as directed by your caregiver. ?? Make a follow-up appointment with your caregiver as directed. ?? Get follow-up X-rays if required. The absence of pain does not always mean that the stone has passed. It may have only stopped moving. If the urine remains completely obstructed, it can cause lossof kidney function or even complete destruction of the kidney. It is your responsibility to make sure X-rays and follow-ups are completed. Ultrasounds of the kidney can show blockages and the status of the kidney. Ultrasounds are not associated with any radiation and can be performed easily in a matter of minutes. SEEK IMMEDIATE MEDICAL CARE IF: ?? Pain cannot be controlled with the prescribed medicine. ?? You have a fever. ?? The severity or intensity of pain increases over 18 hours and is not relieved by pain medicine. ?? You develop a new onset of abdominal pain. ?? You feel faint or pass out. MAKE SURE YOU: ?? Understand these instructions. ?? Will watch your condition. ?? Will get help right away if you are not doing well or get worse. Document Released: 08/24/2006 Document Revised: 11/15/2012 Document Reviewed: 12/20/2010 ExitCare?? Patient Information ??2013 [employer]. EL OPENER documented in this encounter Medications at Time [...] as of this encounter ED Notes * Lesly Garcia RN - 10/12/2015 12:12 AM CST Reviewed D/C care and follow up, patient verbalized understanding. Reviewed prescriptions meds and gave first dose here. Patient ambulatory out of ED. EL OPENER * Lesly Garcia RN - 10/11/2015 11:20 PM CST Patient to CT via stretcher with support technician. GET * Lesly Garcia RN - 10/11/2015 9:15 PM CST Patient resting comfortably after Morphine and Zofran administration. MD at bedside updating patient on POC. GET * Lesly Garcia RN - 10/11/2015 8:42 PM CST Patient has sudden onset of pulling/cramping abdominal pain this am. No precipitating factors. No nausea/vomiting/diarrhea. Last BM yesterday. Negative Urine HCG. IV started, MD at bedside, and meds given per MD order. Patient hooked up to monitor and telemetry. Call light in reach and family at bedside. Will continue to monitor. EL OPENER * Clarke Morris MD - 10/11/2015 7:42 PM CST Provider contact with the patient: 10/11/2015 19:42 Jumana Rivers [id number] [facility] EMERGENCY DEPARTMENT History Chief Complaint Patient presents with ??? Pain Abdominal AP with hematuria this morning ??? Blood in urine HPI Comments: Jumana Rivers is a 25 y.o. female presenting to the ED with a chief complaint of abdominal pain. Sx began today. The pain is constant and rated a 10/10. The pain is described as asharp, cramping pain that is located on both sides of the abdomen. Patient denies having similar sxin the past. Associated sx include hematuria and back pain (resolved). Patient denies vomitinh and diarrhea. LNMP was 1 week ago. Past Medical History Diagnosis Date ??? Asthma [...] Systems Review of Systems Constitutional: Negative for fever. Eyes: Negative for blurred vision and double vision. Respiratory: Negative for cough and wheezing. Cardiovascular: Negative for chest pain and palpitations. Gastrointestinal: Positive for abdominal pain. Negative for heartburn, nausea, vomiting and diarrhea. Genitourinary: Positive for hematuria. Musculoskeletal: Positive for back pain (resolved). Skin: Negative for rash. Neurological: Negative for dizziness, sensory change, speech change, focal weakness, seizures, lossof consciousness and headaches. Psychiatric/Behavioral: Negative for depression and suicidal ideas. All other systems reviewed and are negative. Physical Exam BP 93/73 mmHg Pulse 90 Temp(Src) 98.3 ??F Resp 18 Ht 1.626 m (5' 4.02 ) Wt 87.998 kg (194lb) BMI 33.28 kg/m2 SpO2 98% Physical Exam Constitutional: She is oriented to person, place, and time. She appears well- developed and well-nourished. No distress. HENT: Head: Normocephalic and atraumatic. Eyes: EOM are normal. Pupils are equal, round, and reactive to light. Neck: Normal range of motion. Cardiovascular: Normal rate and regular rhythm. No murmur heard. Pulmonary/Chest: Effort normal and breath sounds normal. No respiratory distress. She has no wheezes. She has no rales. Abdominal: Soft. She exhibits no distension. There is generalized tenderness (mild). Musculoskeletal: Normal range of motion. She exhibits no edema or tenderness. Neurological: She is alert and oriented to person, place, and time. She is not disoriented. GCS eyesubscore is 4. GCS verbal subscore is 5. GCS motor subscore is 6. Skin: Skin is warm and dry. Psychiatric: [...] Saturation Interpretation The oxygen saturation level is: 98%. The patient was on Room Air for the saturation measurement. Oxygen saturation interpretation is Normal. Hospital Encounter on 10/11/15 CBC W AUTO DIFFERENTIAL Result Value Ref Range WBC 7.9 4.4-10.7 x10^9/L WBC Corrected x10^9/L RBC 4.42 3.80-5.20 x10^12/L Hgb 11.9 (L) 12.0-15.6 gm/dL HCT 35.7 (L) 35.9-45.5 % MCV 80.8 80.7-98.3 fl MCH 26.9 26.7-34.0 pg MCHC 33.3 30.8-35.9 gm/dL Plt Ct 399 153-416 x10^9/L RDW-CV 15.5 (H) 12.1-14.9 % MPV 9.1 (L) 9.4-12.9 fl Neutro 60.2 44.0-73.0 % Lymph 27.0 20.0-43.0 % [place] 9.4 5.0-13.0 % Eos 2.3 0.0-6.0 % Baso 0.8 0.0-2.0 % Immature Grans 0.3 0-1 % Neutro Abs 4.73 2.01-7.14 x10^9/L Lymph Abs 2.12 1.07-3.94 x10^9/L [place] Abs 0.74 0.26-1.07 x10^9/L Eosin Abs 0.18 0-0.47 x10^9/L Baso Abs 0.06 0-0.08 x10^9/L Immature Grans (Abs) 0.02 0.00-0.06 x10^9/L NRBC Auto 0 /100 WBC COMPREHENSIVE METABOLIC PANEL Result Value Ref Range Glucose 86 74-106 mg/dL Sodium 141 136-145 mmol/L Potassium 3.9 3.5-5.1 mmol/L Chloride 108 (H) 98-107 mmol/L CO2 26 22-31 mmol/L Calcium 9.2 8.5-10.1 mg/dL Anion Gap 7 5-20 mmol/L BUN 9 7-21 mg/dL Creatinine 0.55 0.50-1.30 mg/dL Alk Phos 72 38-126 U/L ALT/SGPT 16 12-78 U/L AST/SGOT 9 5-40 U/L Protein Total 7.4 6.4-8.2 gm/dL Albumin 3.6 3.4-5.0 gm/dL Bili Total 0.4 0.2-1.0 mg/dL eGFR MDRD >60 >60 mL/min/1.73m2 eGFR MDRD AFR AMR >60 >60 mL/min/1.73m2 URINALYSIS ROUTINE W/REFLEX TO CULTURE Result Value Ref Range Color UA Yellow Straw, Yellow, Dark Yellow Clarity UA Cloudy Specific [place] UA 1.023 1.005-1.030 pH UA 6.0 5.0-8.0 pH Protein UA Negative Negative Blood UA 3+ (Abnormal) Negative Leukocyte UA 1+ (Abnormal) Negative Nitrite UA Negative Negative Glucose UA Negative Negative Ketone UA Negative Negative Bili UA Negative Negative Urobilinogen UA 0.2 0.1-1.0 EU/dL WBC UA Auto 5-10 (Abnormal) 0-2, 2-5 # /hpf RBC UA Auto >100 (Abnormal) 0-2, 2-5 # /hpf Epithelial Cell UA Auto 0-2 0-2, 2-5 # /hpf Reflex Status Culture to follow LIPASE BLOOD Result Value Ref Range Lipase 151 10-220 U/L HCG BETA BLOOD QUANTITATIVE Result Value Ref Range HCG Quant Serum <1 mIU/mL HCG URINE QUALITATIVE - POINT OF CARE (IP) Result Value Ref Range HCG Qual Urine Negative Negative QC Verified Yes Yes CT ABDOMEN AND PELVIS WITH IV CONTRAST CT ABDOMEN & PELVIS With IV Contrast 1. Suspect a small, approximately 3-3.5 mm obstructing stone in the proximal left ureter/UPJ, image68, with an associated mild left-sided hydronephrosis. There is a horseshoe kidney. No right-sided hydronephrosis. 2. The IUD appears to be located abnormally low in the uterus/cervix. Suggest correlation with ultrasound and MEDICAL APPOINTMENT CLERK followup. No gross adnexal masses seen by CT. Slight nonspecific fullness at the level of the urethra, image 105, cannot exclude a small diverticulum. 3. No evidence of acute appendicitis or diverticulitis. Borderline distal colonic thickening, presumably underdistention. 4. Mild fatty infiltration in the anterior liver. Scattered small to borderline nonspecific lymph nodes. 5. Grossly clear bases. 6. Possible constipation, and a mild component of ileus, without bowel obstruction or free air. To TALK to Radiologist [phone] or [phone] Pierre Rhodes M.D. Electronically Signed Progress Notes 7:43 PM Initial Plan: Will order Labs and UA. Patient will be given Morphine, Zofran and IV fluids.Patient agreeable with plan. 9:16 PM Informed patient of UA results. Will order CT abd/pelv. 11:57 PM Upon reevaluation the patient notes her pain better and is tolerating liquids. Informed patient of results. Patient is comfortable with plans for discharge with rx for pain and antibiotics. ED Course Medical Decision Making I have reviewed the: Previous Chart, Nursing Notes and Vitals. I have interpreted the following results: Labs, CT Scans and Oxygen Saturation. Orders Placed This Encounter ??? CULTURE URINE ??? CT ABDOMEN AND PELVIS WITH IV CONTRAST ??? CBC W AUTO DIFFERENTIAL ??? COMPREHENSIVE METABOLIC PANEL ??? URINALYSIS ROUTINE W/REFLEX TO CULTURE ??? LIPASE BLOOD ??? HCG BETA BLOOD QUANTITATIVE ??? HCG URINE QUALITATIVE - POINT OF CARE (IP) ??? 0.9% NaCl injection 1-10 mL ??? 0.9% NaCl IV Bolus ??? morphine injection 2 mg ??? ondansetron (ZOFRAN) injection 4 mg ??? iohexol (OMNIPAQUE 350) contrast ??? morphine injection 2 mg ??? ciprofloxacin (CIPRO) tablet 500 mg ??? hydrocodone-acetaminophen (NORCO) 5-325 MG tablet 2 Tab ??? ciprofloxacin (CIPRO) 500 MG tablet ??? hydrocodone-acetaminophen (NORCO) 5-325 MG tablet Clinical Impression Final diagnoses: Abdominal pain, generalized Kidney stone (Primary) 11:58 PM Pt is medically stable for d/c [...] verbalized understanding of the discharge instructions. BP 108/62 mmHg Pulse 79 Temp(Src) 98.3 ??F Resp 14 Ht 1.626 m (5' 4.02 ) Wt 87.998 kg (194 lb) BMI 33.28 kg/m2 SpO2 100% New Medications: Discharge Medication List as of 10/12/2015 12:00 AM START taking these medications Details ciprofloxacin (CIPRO) 500 MG tablet Disp-20 Tab, R-0, Take 1 Tab by mouth 2 times daily for 10 days, Print hydrocodone-acetaminophen (NORCO) 5-325 MG tablet Disp-15 Tab, R-0, Take 1 Tab by mouth every 4 hours as needed for Pain, Print I have advised the patient to follow-[place] with: [place] [id number] [facility] [address] [facility] [address] Schedule an appointment as soon as possible for a visit in 2 days [facility] [address] 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 Morris 10/12/2015 12:41 AM Transcribed by Berry Shields acting scribe on behalf of Dr. Morris 10/11/2015 7:47 PM EL OPENER documented in this encounter Plan of Treatment Not on file documented as of this encounter Procedures Procedure Name Priority Date/Time Associated Diagnosis Comments CT ABDOMEN PELVIS W CONTRAST STAT 10/11/2015 11:40 PM MUSSEL OPENER Abdominal pain, generalized HCG URINE QUALITATIVE - POINT OF CARE STAT 10/11/2015 8:24 PM MUSSEL OPENER URINALYSIS REFLEX MICROSCOPIC REFLEX CULTURE STAT 10/11/2015 8:10 PM MUSSEL OPENER CULTURE URINE STAT 10/11/2015 8:10 PM MUSSEL OPENER CBC W AUTO DIFFERENTIAL STAT 10/11/2015 3:20 PM MUSSEL OPENER COMPREHENSIVE METABOLIC PANEL STAT 10/11/2015 3:20 PM MUSSEL OPENER HCG BETA BLOOD QUANTITATIVE Add on 10/11/2015 3:20 PM MUSSEL OPENER LIPASE BLOOD Add on 10/11/2015 3:20 PM MUSSEL OPENER documented in this encounter Results * CT ABDOMEN AND PELVIS WITH IV CONTRAST (10/11/2015 11:40 PM MUSSEL OPENER) Anatomical Region Laterality Modality Abdomen, Pelvis Computed Tomogra phy 10/12/2015 6:35 AM MUSSEL OPENER Impressions 10/12/2015 6:45 AM MUSSEL OPENER 1. 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 2. Intrauterine contraceptive device within the lower uterine segment and cervix. Narrative 10/12/2015 6:45 AM MUSSEL OPENER EXAMINATION: Computed Tomography (CT) of the abdomen and pelvis with contrast HISTORY: Abdominal pain. TECHNIQUE: CT of the abdomen and pelvis was performed Omnipaque 350, 100 mL intravenous contrast according to standard protocol. COMPARISON: No prior study is available for comparison. FINDINGS: The lung bases are clear. The heart size is normal. The liver and gallbladder appear normal. The spleen and pancreas appear normal. The adrenal glands appear normal. There is a horseshoe kidney with fusion of the lower renal poles just below the inferior mesenteric artery origin. There is mild hydronephrosis of the left renal moiety. There is a tiny radiodensity at the left ureteropelvic junction measuring 2 mm which may represent a small obstructing calculus (image 30 of series 2 and image 46 of series 601). The stomach, small bowel, appendix and colon appear normal. No intraperitoneal free air or free fluid is identified. There is a T-shaped contraceptive device within the lower uterine segment and cervix. There are prominent subcentimeter mesenteric and inguinal lymph nodes which are nonspecific and may be reactive. The vascular structures are normal. The osseous structures are intact. Procedure Note Alonso Mercado MD - 10/12/2015 EXAMINATION: Computed Tomography (CT) of the abdomen and pelvis with contrast HISTORY: Abdominal pain. TECHNIQUE: CT of the abdomen and pelvis was performed Omnipaque 350, 100 mL intravenous contrast according to standard protocol. COMPARISON: No prior study is available for comparison. FINDINGS: The lung bases are clear. The heart size is normal. The liver and gallbladder appear normal. The spleen and pancreas appear normal. The adrenal glands appear normal. There is a horseshoe kidney with fusion of the lower renal poles just below the inferior mesenteric artery origin. There is mild hydronephrosis of the left renal moiety. There is a tiny radiodensity at the left ureteropelvic junction measuring 2 mm which may represent a small obstructing calculus (image 30 of series 2 and image 46 of series 601). The stomach, small bowel, appendix and colon appear normal. No intraperitoneal free air or free fluid is identified. There is a T-shaped contraceptive device within the lower uterine segment and cervix. There are prominent subcentimeter mesenteric and inguinal lymph nodes which are nonspecific and may be reactive. The vascular structures are normal. The osseous structures are intact. IMPRESSION 1. 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 2. Intrauterine contraceptive device within the lower uterine segment and cervix. Clarke Morris MD CT ORDERABLES * HCG URINE QUALITATIVE - POINT OF CARE (IP) (10/11/2015 8:24 PM MUSSEL OPENER) HCG Qual Urine Negative Negative [facility] POCT TESTING QC Verified Yes Yes [facility] POC T TESTING Urine specimen (specimen) URINE / Unknown 10/11/2015 8:24 PM MUSSEL OPENER Clarke Morris MD LAB - POINT OF CARE ORDERABLES [facility] POCT TESTING [address] [place], [place] [id number] [place] [address] * CULTURE URINE (10/11/2015 8:10 PM MUSSEL OPENER) Pathologist [facility] Culture 10,000-50,000 CFU/mL urogenital marco CHRYSTAL 10/13/2015 4:12 AM MUSSEL OPENER [facility] MI[facility] Urine URINE SPECIMEN OBTAINED BY CLEAN CATCH PROCEDURE / Unknown 10/11/2015 8:10 PM MUSSEL OPENER 10/11/2015 8:15 PM MUSSEL OPENER Clarke Morris MD LAB - MICROBIOLOGY O RDERABLES [facility] [address] [phone] * (ABNORMAL) URINALYSIS ROUTINE W/REFLEX TO CULTURE (10/11/2015 8:10 PM MUSSEL OPENER) Color UA Yellow Straw, Yellow, Dark Yellow 10/11/2015 8:22 PM MUSSEL OPENER [facility] Clarity UA Cloudy 10/11/2015 8:22 PM MUSSEL OPENER [facility] Specific [place] UA 1.023 1.005 - 1.030 10/11/2015 8:22 PM MUSSEL OPENER [facility] pH UA 6.0 5.0 - 8.0 pH 10/11/2015 8:22 PM MUSSEL OPENER [facility] Protein UA Negative Negative 10/11/2015 8:22 PM MUSSEL OPENER [facility] Blood UA 3+(A) Negative 10/11/2015 8:22 PM MUSSEL OPENER [facility] Leukocyte UA 1+(A) Negative 10/11/2015 8:22 PM MUSSEL OPENER [facility] Nitrite UA Negative Negative 10/11/2015 8:22 PM [facility] Glucose UA Negative Negative 10/11/2015 8:22 PM [facility] Ketone UA Negative Negative 10/11/2015 8:22 PM [facility] Bilirubin UA Negative Negative 10/11/2015 8:22 PM [facility] Urobilinogen UA 0.2 0.1 - 1.0 EU/dL 10/11/2015 8:22 PM [facility] WBC UA Auto 5-10(A) 0-2, 2-5 # /hpf 10/11/2015 8:22 PM [facility] RBC UA Auto >100(A) 0-2, 2-5 # /hpf 10/11/2015 8:22 PM [facility] Epithelial Cell UA Auto 0-2 0-2, 2-5 # /hpf 10/11/2015 8:22 PM [facility] Reflex Status Culture to follow 10/11/2015 8:22 PM [facility] Urine URINE SPECIMEN OBTAINED BY CLEAN CATCH PROCEDURE / Unknown 10/11/2015 8:10 PM MUSSEL OPENER 10/11/2015 8:15 PM MUSSEL OPENER Clarke Morris MD LAB - URINALYSIS ORD ERABLES Performing Organization Address City/State/[facility] Co de Phone Number [facility] [address] [place] [address] * HCG BETA BLOOD QUANTITATIVE (10/11/2015 3:20 PM MUSSEL OPENER) hCG Quantitative <1 mIU/mL 10/11/2015 8:21 PM [facility] Blood BLOOD SPECIMEN / Unknown Venipuncture / Unknown 10/11/2015 3:20 PM [employer]SEL [employer]ENER 10/11/2015 8:06 PM [employer]SEL [employer]ENER Narrative [facility] - 10/11/2015 8:21 PM MUSSEL OPENER ? hCG Reference Range, mIU/mL: ? Males [...] a serum FSH >20 IU/L makes unlikely. Clarke Morris MD LAB - CHEMISTRY JOANNA YUNG [facility] [address] [id number] * LIPASE BLOOD (10/11/2015 3:20 PM MUSSEL OPENER) Lipase 151 10 - 220 U/L 10/11/2015 8:21 PM [facility] Blood BLOOD SPECIMEN / Unknown Venipuncture / Unknown 10/11/2015 3:20 PM MUSSEL OPENER 10/11/2015 8:06 PM [employer]ENER Clarke Morris MD LAB - CHEMISTRY JOANNA YUNG [facility] [address] [place] [address] * (ABNORMAL) COMPREHENSIVE METABOLIC PANEL (10/11/2015 3:20 PM MUSSEL OPENER) Pathologist [facility] Glucose 86 74 - 106 mg/dL 10/11/2015 3:40 PM [facility] Sodium 141 136 - 145 mmol/L 10/11/2015 3:40 PM [facility] Potassium 3.9 3.5 - 5.1 mmol/L 10/11/2015 3:40 PM [facility] Chloride 108(H) 98 - 107 mmol/L 10/11/2015 3:40 PM [facility] CO2 26 22 - 31 mmol/L 10/11/2015 3:40 PM [facility] Calcium 9.2 8.5 - 10.1 mg/dL 10/11/2015 3:40 PM [facility] Anion Gap 7 5 - 20 mmol/L 10/11/2015 3:40 PM [facility] BUN 9 7 - 21 mg/dL 10/11/2015 3:40 PM [facility] Creatinine 0.55 0.50 - 1.30 mg/dL 10/11/2015 3:40 PM [facility] Alkaline Phosphatase 72 38 - 126 U/L 10/11/2015 3:40 PM [facility] ALT 16 12 - 78 U/L 10/11/2015 3:40 PM [facility] AST 9 5 - 40 U/L 10/11/2015 3:40 PM [facility] Protein Total 7.4 6.4 - 8.2 gm/dL 10/11/2015 3:40 PM [facility] Albumin 3.6 3.4 - 5.0 gm/dL 10/11/2015 3:40 PM [facility] Bilirubin Total 0.4 0.2 - 1.0 mg/dL 10/11/2015 3:40 PM [employer]SEL OPENER [facility] eGFR by MDRD >60 >60 mL/min/1.7 3m2 10/11/2015 3:40 PM [facility] eGFR by MDRD >60 >60 mL/min/1.7 3m2 10/11/2015 3:40 PM [facility] Blood BLOOD SPECIMEN / Unknown 10/11/2015 3:20 PM [employer]ENER 10/11/2015 3:23 PM [employer] Clarke Morris MD LAB - CHEMISTRY JOANNA YUNG [facility] [address], [place] [id number] * (ABNORMAL) CBC W AUTO DIFFERENTIAL (10/11/2015 3:20 PM MUSSEL OPENER) WBC 7.9 4.4 - 10.7 x10^9/L 10/11/2015 3:25 PM [facility] WBC Corrected x10^9/L 10/11/2015 3:25 PM [facility] RBC 4.42 3.80 - 5.20 x10^12/L 10/11/2015 3:25 PM [facility] Hemoglobin 11.9(L) 12.0 - 15.6 gm/dL 10/11/2015 3:25 PM [facility] Hematocrit 35.7(L) 35.9 - 45.5 % 10/11/2015 3:25 PM [facility] MCV 80.8 80.7 - 98.3 fl 10/11/2015 3:25 PM [facility] MCH 26.9 26.7 - 34.0 pg 10/11/2015 3:25 PM [facility] MCHC 33.3 30.8 - 35.9 gm/dL 10/11/2015 3:25 PM [facility] Platelet Count 399 153 - 416 x10^9/L 10/11/2015 3:25 PM [facility] RDW-CV 15.5(H) 12.1 - 14.9 % 10/11/2015 3:25 PM [facility] MPV 9.1(L) 9.4 - 12.9 fl 10/11/2015 3:25 PM [facility] Neutrophils % 60.2 44.0 - 73.0 % 10/11/2015 3:25 PM [facility] Lymphocytes % 27.0 20.0 - 43.0 % 10/11/2015 3:25 PM [facility] Monocytes % 9.4 5.0 - 13.0 % 10/11/2015 3:25 PM [facility] Eosinophils % 2.3 0.0 - 6.0 % 10/11/2015 3:25 PM [facility] Basophils % 0.8 0.0 - 2.0 % 10/11/2015 3:25 PM [facility] Immature Granulocytes 0.3 0 - 1 % 10/11/2015 3:25 PM [facility] Neutrophil Absolute 4.73 2.01 - 7.14 x10^9/L 10/11/2015 3:25 PM [facility] Lymphocytes Absolute 2.12 1.07 - 3.94 x10^9/L 10/11/2015 3:25 PM [facility] Monocytes Absolute 0.74 0.26 - 1.07 x10^9/L 10/11/2015 3:25 PM [facility] Eosinophils Absolute 0.18 0 - 0.47 x10^9/L 10/11/2015 3:25 PM [facility] Basophils Absolute 0.06 0 - 0.08 x10^9/L 10/11/2015 3:25 PM [facility] Immature Granulocytes Absolute 0.02 0.00 - 0.06 x10^9/L 10/11/2015 3:25 PM [facility] nRBC Auto 0 /100 WBC 10/11/2015 3:25 PM [facility] Blood BLOOD SPECIMEN / Unknown 10/11/2015 3:20 PM [facility]SEL [employer]ENER 10/11/2015 3:23 PM [facility] Clarke Morris MD LAB - HEMATOLOGY ORD ERABLES [facility] [address] [place] [address] documented in this encounter Visit Diagnoses Diagnosis Kidney stone- Primary Calculus of kidney Abdominal pain, generalized documented in this encounter Administered Medications Inactive Administered Medications - up to 3 most recent administrations Medication Order MAR Action Action Date Dose Rate Site 0.9% NaCl IV Bolus 1,000 mL, Administer over 30 Minutes, NOW, 1 dose, On Emma 10/11/15 at 2014 $ Given 10/11/2015 8:15 PM [employer]SEL OPENER 1,000 mL ciprofloxacin (CIPRO) tablet 500 mg 500 mg, Oral, NOW, 1 dose, On Thu10/12/15 at 0000, Take with or without food, do not take with ramon, yogurt or calcium-fortified juice. $ Given 10/12/2015 12:15 AM MUSSEL OPENER 500 mg hydrocodone-acetaminophen (NORCO) 5-325 MG tablet 2 Tab 2 tablet, Oral, NOW, 1 dose, On Thu10/12/15 at 0000 $ Given 10/12/2015 12:15 AM MUSSEL OPENER 2 tablets iohexol (OMNIPAQUE 350) contrast Intravenous, CONTRAST ONCE, Starting on Emma 10/11/15 at 2118, Until Thu10/12/15 at 0119 $ Given - Contrast 10/11/2015 11:18 PM MUSSEL OPENER 100 mL morphine injection 2 mg 2 mg, Intravenous, NOW, 1 dose, On Emma 10/11/15 at 2014 $ Given 10/11/2015 8:23 PM [employer]SEL OPENER 2 mg morphine injection 2 mg 2 mg, Intravenous, NOW, 1 dose, On Emma 10/11/15 at 2200 $ Given 10/11/2015 9:57 PM [employer]SEL OPENER 2 mg ondansetron (ZOFRAN) injection 4 mg 4 mg, Intravenous, ONCE, 1 dose, On Emma 10/11/15 at 2030 $ Given 10/11/2015 8:24 PM [employer]SEL [employer]ENER 4 mg documented in this encounter Active and Recently Administered Medications Times are shown in MUSSEL [employer]ENER. Scheduled Medication Order 10/10/2015 10/11/2015 10/12/2015 0.9% NaCl IV Bolus (COMPLETED) 1,000 mL, Administer over 30 Minutes, NOW, 1 dose, On Emma 10/11/15 at 2014 2014 ($ Given - Provider: Lesly Garcia RN)2044 (Due: Rx Stopped - Provider: Lesly Garcia RN) ciprofloxacin (CIPRO) tablet 500 mg (COMPLETED) 500 mg, Oral, NOW, 1 dose, On Thu10/12/15 at 0000, Take with or without food, do not take with ramon, yogurt or calcium-fortified juice. 0015 ($ Given - Provider: Rubén Lau RN) hydrocodone-acetaminophen (NORCO) 5-325 MG tablet 2 Tab (COMPLETED) 2 tablet, Oral, NOW, 1 dose, On Thu10/12/15 at 0000 0015 ($ Given - Provider: Rubén Lau RN) iohexol (OMNIPAQUE 350) contrast (CANCELED) Intravenous, CONTRAST ONCE, Starting on Emma 10/11/15 at 2118, Until Thu10/12/15 at 0119 2318 ($ Given - Contrast - Provider: Eloise Oneal, RT(R)CT) morphine injection 2 mg (COMPLETED) 2 mg, Intravenous, NOW, 1 dose, On Emma 10/11/15 at 2014 2022 ($ Given - Provider: Lesly Garcia, RAZIA) morphine injection 2 mg (COMPLETED) 2 mg, Intravenous, NOW, 1 dose, On Emma 10/11/15 at 2200 2157 ($ Given - Provider: Lesly Garcia, RN) ondansetron (ZOFRAN) injection 4 mg (COMPLETED) 4 mg, Intravenous, ONCE, 1 dose, On Emma 10/11/15 at 2029 2023 ($ Given - Provider: Lesly Garcia, RN) documented in this encounter
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
--- OUTSIDE RECORDS SUMMARY | 2024-09-25 11:51 | XMS_ITS | Encounter Summary ---
Author Organization [facility] Address [address] [place] [address] Care Team Providers Care International Sales Representative Name Role Phone Unavailable Primary Care Provider Unavailabl e Reason for Visit * Reason Comments Sore Throat ST since yesterday m orning/states Encounter Details Date Type Department Care Team (Late st Contact Info) Description 04/13/2015 12:47 PM CDT - 04/13/2015 2:13 PM CDT Emergency ER at [facility][note 3] [address] [place] [id number] Tonsillitis with exudate Discharge Disposition: Home or Self Care Social [...] Sign Reading Time Taken Comments Blood Pressure 115/73 04/13/2015 2:12 PM CDT Pulse 74 04/13/2015 2:12 PM CDT Temperature 37.1 ??C (98.8 ??F) 04/13/2015 12:46 PM C DT Respiratory Rate 16 04/13/2015 2:12 PM CDT Oxygen Saturation 100% 04/13/2015 2:12 PM CDT Inhaled Oxygen Concentration - - Weight 89.4 kg (197 lb) 04/13/2015 12:46 PM CDT Height 162.6 cm (5' 4 ) 04/13/2015 12:46 PM CDT Body Mass Index 33.81 04/13/2015 12:46 PM CDT documented in this encounter Functional [...] Discharge Instructions * Discharge Instructions* Criss March, OIL PROCESSING TECHNICIAN-CLIENT SERVICE EXECUTIVE - 04/13/2015 1:32 PM CDT Images from the original note were not included. Strep Throat Strep throat is an infection of the throat caused by a bacteria named Streptococcus pyogenes. Your health care provider may call the infection streptococcal tonsillitis or pharyngitis depending on whether there are signs of inflammation in the tonsils or back of the throat. Strep throat is most common in children aged 5-15 years during the cold months of the year, but it can occur in people of any age during any season. This infection is spread from person to person (contagious) through coughing, sneezing, or other close contact. SIGNS AND SYMPTOMS ?? Fever or chills. ?? Painful, swollen, red tonsils or throat. ?? Pain or difficulty when swallowing. ?? White or yellow spots on the tonsils or throat. ?? Swollen, tender lymph nodes or glands of the neck or under the jaw. ?? Red rash all over the body (rare). DIAGNOSIS Many different infections can cause the same symptoms. A test must be done to confirm the diagnosisso the right treatment can be given. A rapid strep test can help your health care provider make the diagnosis in a few minutes. If this test is not available, a light swab of the infected area can be used for a throat culture test. If a throat culture test is done, results are usually available in a day or two. TREATMENT Strep throat is treated with antibiotic medicine. HOME CARE INSTRUCTIONS ?? Gargle with 1 tsp of salt in 1 cup of warm water, 3-4 times per day or as needed for comfort. ?? Family members who also have a sore throat or fever should be tested for strep throat and treated with antibiotics if they have the strep infection. ?? Make sure everyone in your household washes their hands well. ?? Do not share food, drinking cups, or personal items that could cause the infection to spread to others. ?? You may need to eat a soft food diet until your sore throat gets better. ?? Drink enough water and fluids to keep your urine clear or pale yellow. This will help prevent dehydration. ?? Get plenty of rest. ?? Stay home from school, day care, or work until you have been on antibiotics for 24 hours. ?? Take medicines only as directed by your health care provider. ?? Take your antibiotic medicine as directed by your health care provider. Finish it even if you start to feel better. SEEK MEDICAL CARE IF: ?? The glands in your neck continue to enlarge. ?? You develop a rash, cough, or earache. ?? You cough up green, yellow-brown, or bloody sputum. ?? You have pain or discomfort not controlled by medicines. ?? Your problems seem to be getting worse rather than better. ?? You have a fever. SEEK IMMEDIATE MEDICAL CARE IF: ?? You develop any new symptoms such as vomiting, severe headache, stiff or painful neck, chest pain, shortness of breath, or trouble swallowing. ?? You develop severe throat pain, drooling, or changes in your voice. ?? You develop swelling of the neck, or the skin on the neck becomes red and tender. ?? You develop signs of dehydration, such as fatigue, dry mouth, and decreased urination. ?? You become increasingly sleepy, or you cannot wake up completely. MAKE SURE YOU: ?? Understand these instructions. ?? Will watch your condition. ?? Will get help right away if you are not doing well or get worse. Document Released: 08/21/2001 Document Revised: 01/08/2015 Document Reviewed: 10/23/2011 ExitCare?? Patient Information ??2015 [employer] [facility]. This information is not intended to replace [...] once daily. 30 Tab 0 01/04/2015 09/30/2015 penicillin v potassium (VEETIDS) 500 MG tablet [...] as of this encounter ED Notes * Charlotte Guzman RN - 04/13/2015 1:07 PM CDT amb to acc 2 with c/o sore throat, since yest, hx of strep, provider into eval * Criss March APRN-CNP - 04/13/2015 12:56 PM CDT Provider contact with the patient: 04/13/2015 12:56 Datreion Deven Rivers [id number] [facility] EMERGENCY DEPARTMENT History Chief Complaint Patient presents with ??? Sore Throat ST since yesterday morning/states HPI Comments: The pt was diagnosed with strep throat 2 months ago. She states that she completed the course of antibiotics. Sore Throat The history is provided by the patient. This is a new problem. The current episode started yesterday. The problem has not changed since onset.The maximum temperature recorded prior to her arrival wassubjective. The fever has been present for less than 1 day. The pain is made worse by swallowing. Relieved by: OTC meds.She has tried acetaminophen for the symptoms. The treatment provided moderate [...] Narrative Review of Systems Review of Systems HENT: Positive for sore throat. Eyes: Negative. Respiratory: Negative. Cardiovascular: Negative. Gastrointestinal: Negative. Genitourinary: Negative. Musculoskeletal: Negative. Skin: Negative. Neurological: Negative. Endo/Heme/Allergies: Negative. Psychiatric/Behavioral: Negative. All other systems reviewed and are negative. Physical Exam BP 121/73 mmHg Pulse 87 Temp(Src) 98.8 ??F Resp 18 Ht 1.626 m (5' 4 ) Wt 89.359 kg (197 lb) BMI 33.80 kg/m2 Physical Exam Constitutional: She is oriented to person, place, and time. Vital signs are normal. She appears well-developed and well-nourished. HENT: Head: Normocephalic and atraumatic. Right Ear: Hearing and external ear normal. Left Ear: Hearing and external ear normal. Nose: Nose normal. Mouth/Throat: Uvula is midline. Oropharyngeal exudate, posterior oropharyngeal edema and posterior oropharyngeal erythema present. Able to speak and swallow Eyes: Conjunctivae, EOM and lids are normal. Pupils are equal, round, and reactive to light. Neck: Trachea normal and phonation normal. Cardiovascular: Regular rhythm, S1 normal, S2 normal, normal heart sounds and normal pulses. Tachycardia present. Abdominal: Soft. Normal appearance and bowel sounds are normal. There is no tenderness. Musculoskeletal: Normal range of motion. Lymphadenopathy: She has cervical adenopathy. Right cervical: Superficial cervical adenopathy present. Neurological: She is alert and oriented to [...] Outpatient Prescriptions Medication Sig Dispense Refill ??? penicillin v potassium (VEETIDS) 500 MG [...] mouth once daily. 30 Tab 0 ??? ibuprofen (MOTRIN) 600 MG tablet Take 1 Tab by mouth every 6 hours as needed for Pain. 20 Tab 0 Procedures Procedures ECG Interpretation ECG Interpretation Lab/SPO2 Interpretation Results for orders placed during the hospital encounter of 04/13/15 STREP A SCREEN DIRECT W RFLX STREP A CULTURE Result Value Ref Range Strep A Rapid Negative Negative No orders to display Progress Notes 12:56 PM Initial Plan: Will order labs. Patient agreeable with plan. 1:33 PM Rechecked pt -patient resting comfortably and feeling better. I discussed the results of diagnostic studies and my clinical impression with the patient.Patient agrees with plan and discharge at this time, all questions addressed. ED Course Medical Decision Making I have reviewed the: Previous Chart, Nursing Notes and Vitals. I have interpreted the following results: Labs. Orders Placed This Encounter ??? STREP A SCREEN DIRECT W RFLX STREP A CULTURE ??? CULTURE STREP GROUP A ??? penicillin v potassium (VEETIDS) 500 MG tablet ??? predniSONE (DELTASONE) 10 MG tablet Clinical Impression Final diagnoses: Tonsillitis with exudate Pt is medically stable for d/c home at this time. I have given the patient instructions regarding her diagnosis, expectations, follow up, and return precautions. I explained to the patient that emergent conditions may arise and to return to the ER for new, worsening, or any persistent conditions. I've explained the importance of following up with Dr. Jimenez as instructed. The patient verbalized understanding of the discharge instructions. Blood pressure 121/73, pulse 87, temperature 98.8 ??F, resp. rate 18, height 1.626 m (5' 4 ), weight 89.359 kg (197 lb), unknown if currently . New Medications: New Prescriptions PENICILLIN V POTASSIUM (VEETIDS) 500 MG TABLET Take 1 Tab by mouth 3 times daily for 10 days PREDNISONE (DELTASONE) 10 MG TABLET Take 4 tablets daily for 4 days, Then take 3 tablets daily for 2 days, Then take 2 tablets daily for 2 days, Then take 1 tablet daily for 2 days I have advised the patient to follow-up with: Tj Jimenez MD [facility] [place] [id number] Disposition: Discharged I have reviewed the information recorded by the scribe and agree with its accuracy and contents--Mariana March 04/13/2015 1:46 PM Transcribed by Mckenzie Ricks acting scribe on behalf of MARIANA March 04/13/2015 12:56 PM documented in this encounter Plan of Treatment Not on file documented as of this encounter Procedures Procedure Name Priority Date/Time Associated Diagnosis Comments STREP A SCREEN DIRECT W RFLX STREP A CULTURE STAT 04/13/2015 1:11 PM CDT CULTURE STREP GROUP A STAT 04/13/2015 1:11 PM CDT documented in this encounter Results * CULTURE STREP GROUP A (04/13/2015 1:11 PM CDT) Culture Negative for Beta Hemolytic Streptococcus Group A CHRYSTAL 04/15/2015 3:45 AM CDT [facility] Microbiology ENTIRE THROAT (SURFACE REGION OF NECK) / Unknown 04/13/2015 1:11 PM CDT 04/13/2015 1:14 PM CDT Criss March APRNPETER [facility] - MICROBIOLOGY ORDERABLES Performing Organization Address City/[facility]/ZIP Co de Phone Number [facility] [address] [place] [address], [facility] [phone] * STREP A SCREEN DIRECT W RFLX STREP A CULTURE (04/13/2015 1:11 PM CDT) Strep A Rapid Negative Negative 04/13/2015 1:[address] [facility] Microbiology ENTIRE THROAT (SURFACE REGION OF NECK) / Unknown 04/13/2015 1:11 PM CDT 04/13/2015 1:[address] [facility] - 04/13/2015 1:24 PM CDT Test has reflexed to a Strep A culture. Criss March APRNPETER [facility] - MICROBIOLOGY ORDERABLES [facility] [address] [place] [address] documented in this encounter Visit Diagnoses Diagnosis Tonsillitis with exudate Acute tonsillitis documented in this encounter
--- OUTSIDE RECORDS SUMMARY | 2024-09-25 11:52 | XMS_ITS | Encounter Summary ---
Author Organization [facility] Address [address] [place] [address] Care Team Providers Care Spindraw Operator Name Role Phone Unavailable Primary Care Provider Unavailabl e Reason for Visit * Reason Comments Epistaxis for 2 hrs this morni ng and is now having dizziness. Pt is 32 weeks Dizziness Encounter Details Date Type Department Care Team (Late st Contact Info) Description 07/15/2014 6:34 AM MANAGER ELIGIBILITY - 07/15/2014 7:19 AM MANAGER ELIGIBILITY Emergency ER at [facility] [address] [place] [id number] Hammad Zuleta MD [address] [place] [address] Epistaxis Discharge Disposition: Home or Self Care Social [...] Sign Reading Time Taken Comments Blood Pressure 108/70 07/15/2014 6:00 AM MANAGER ELIGIBILITY Pulse 93 07/15/2014 6:00 AM MANAGER ELIGIBILITY Temperature 36.9 ??C (98.5 ??F) 07/15/2014 6:00 AM CS T Respiratory Rate 16 07/15/2014 6:00 AM MANAGER ELIGIBILITY Oxygen Saturation 100% 07/15/2014 6:00 AM MANAGER ELIGIBILITY Inhaled Oxygen Concentration - - Weight 90.3 kg (199 lb) 07/15/2014 6:48 AM MANAGER ELIGIBILITY Height 162.6 cm (5' 4.02 ) 07/15/2014 6:48 AM CS T Body Mass Index 34.14 07/15/2014 6:48 AM MANAGER ELIGIBILITY documented in this encounter Functional Status Functional [...] this encounter Discharge Instructions * Discharge Instructions* Hammad Zuleta MD - 07/15/2014 7:11 AM MANAGER ELIGIBILITY Nosebleed Nosebleeds can be caused by many conditions including trauma, infections, polyps, foreign bodies, dry mucous membranes or climate, medications and air conditioning. Most nosebleeds occur in the frontof the nose. It is because of this location that most nosebleeds can be controlled by pinching the nostrils gently and continuously. Do this for at least 10 to 20 minutes. The reason for this long continuous pressure is that you must hold it long enough for the blood to clot. If during that 10 to 20 minute time period, pressure is released, the process may have to be started again. The nosebleed may stop by itself, quit with pressure, need concentrated heating (cautery) or stop with pressure from packing. HOME CARE INSTRUCTIONS ?? If your nose was packed, try to maintain the pack inside until your caregiver removes it. If a gauze pack was used and it starts to fall out, gently replace or cut the end off. Do not cut if a balloon catheter was used to pack the nose. Otherwise, do not remove unless instructed. ?? Avoid blowing your nose for 12 hours after treatment. This could dislodge the pack or clot and start bleeding again. ?? If the bleeding starts again, sit up and bending forward, gently pinch the front half of your nose continuously for 20 minutes. ?? If bleeding was caused by dry mucous membranes, cover the inside of your nose every morning witha petroleum or antibiotic ointment. Use your little fingertip as an applicator. Do this as needed during dry weather. This will keep the mucous membranes moist and allow them to heal. ?? Maintain humidity in your home by using less air conditioning or using a humidifier. ?? Do not use aspirin or medications which make bleeding more likely. Your caregiver can give you recommendations on this. ?? Resume normal activities as able but try to avoid straining, lifting or bending at the waist forseveral days. ?? If the nosebleeds become recurrent and the cause is unknown, your caregiver may suggest laboratory tests. SEEK IMMEDIATE MEDICAL CARE IF: ?? Bleeding recurs and cannot be controlled. ?? There is unusual bleeding from or bruising on other parts of the body. ?? You have a fever. ?? Nosebleeds continue. ?? There is any worsening of the condition which originally brought you in. ?? You become lightheaded, feel faint, become sweaty or vomit blood. MAKE SURE YOU: ?? Understand these instructions. ?? Will watch your condition. ?? Will get help right away if you are not doing well or get worse. Document Released: 06/03/2006 Document Revised: 11/15/2012 Document Reviewed: 07/26/2010 ExitCare?? Patient Information ??2013 [employer] GER ELIGIBILITY documented in this encounter Medications at Time of Discharge Medication Sig Dispensed Refills Start Date End Date Vit-Fe Fumarate-FA ( VITAMIN) 28-0.8 MG tablet Take 1 Tab by mouth once daily. 01/04/2015 documented as of this encounter ED Notes * Afua Rubalcava RN - 07/15/2014 6:51 AM CST Pt states that she woke up this morning around 0400 with a nosebleed. Bleeding stopped after an hour and a half. States she had dizziness too. GER ELIGIBILITY * Hammad Zuleta MD - 07/15/2014 6:37 AM CST Provider contact with the patient: 07/15/2014 06:38 Jumana Rivers [id number] [facility] EMERGENCY DEPARTMENT History Chief Complaint Patient presents with ??? Epistaxis for 2 hrs this morning and is now having dizziness. Pt is 32 weeks ??? Dizziness HPI Comments: 6:38 AM Jumana Rivers, a 24 y.o. female with a past medical history that includes--asthma, migraines, anemia, depression, trich, chlamydia--presents to the ER c/o a right-sided nosebleed that lasted approx 2 hours. Her bleeding occurred earlier this morning. Pt statesshe is now dizzy and she has a headache. The headache occurs behind her R eye and she describes it as aching. Denies rhinorrhea before the episode. Denies picking her nose or any other trauma. Deniesany ENT surgeries. She keeps heat on in her home, and she has a humidifier but has not been using it recently. Denies any problems with her . She has been having no contractions or vaginal bleeding. She is currently 36 weeks , and this is her second . PCP: [facility] Epistaxis The history is provided by the patient. This is a new problem. The current episode started 1 to 2 hours ago. The problem occurs constantly. The problem has been resolved. The problem is associated with nothing. The bleeding has been from the right nare. She has tried pressure for the symptoms. The treatment provided no relief. There have been no prior injuries to these areas. Past Medical History Diagnosis Date ??? Asthma remote ??? Migraines ??? History of anemia ??? Chlamydia this ??? depression ??? Trichomonas Treated this ??? History of sexually transmitted disease Past Surgical History Procedure Laterality Date ??? [...] Negative. Negative for fever and chills. HENT: Positive for nosebleeds. Negative for hearing loss. Eyes: Negative. Negative for blurred vision, double vision and photophobia. Respiratory: Negative. Negative for cough, hemoptysis and shortness of breath. Cardiovascular: Negative. Negative for chest pain and palpitations. Gastrointestinal: Negative. Negative for nausea, vomiting and abdominal pain. Genitourinary: Negative for dysuria and urgency. Negative for vaginal bleeding Musculoskeletal: Negative. Negative for myalgias and neck pain. Skin: Negative. Negative for rash. Neurological: Positive for dizziness and headaches (R side). Negative for focal weakness and loss of consciousness. Psychiatric/Behavioral: Negative. Negative for depression and suicidal ideas. The patient is not nervous/anxious. All other systems reviewed and are negative. Physical Exam BP 108/70 Pulse 93 Temp(Src) 98.5 ??F Resp 16 Ht 1.626 m (5' 4.02 ) Wt 90.266 kg (199 lb) BMI 34.14 kg/m2 SpO2 100% Physical Exam Constitutional: She is oriented to person, place, and time. She appears well- developed and well-nourished. No distress. HENT: Head: Normocephalic and atraumatic. Medial wall R nostril, there is a scratch lalita present. No new or old blood. Mild mucosal edema anderythema in both nares. Eyes: Conjunctivae and EOM are normal. Pupils are equal, round, and reactive to light. Neck: Neck supple. Cardiovascular: Normal rate, regular rhythm, normal heart sounds and intact distal pulses. Exam reveals no gallop and no friction rub. No murmur heard. Pulmonary/Chest: Effort normal and breath sounds normal. Abdominal: Soft. Bowel sounds are normal. She exhibits no distension. There is no tenderness. Gravid abdomen. Good heart tones. Musculoskeletal: Normal range of motion. Neurological: She is alert and oriented to person, place, and time. She has normal reflexes. Skin: Skin is warm and dry. She is not diaphoretic. Psychiatric: She has a normal mood and affect. Her behavior is normal. Judgment and thought contentnormal. Nursing note and vitals reviewed. Medications Current Outpatient Prescriptions Medication Sig Dispense Refill ??? Vit-Fe Fumarate-FA ( VITAMIN) 28-0.8 MG tablet Take 1 Tab by mouth once daily. Procedures Procedures ECG Interpretation ECG Interpretation Lab Interpretation Oxygen Saturation Interpretation The oxygen saturation level is: 100%. The patient was on Room Air for the saturation measurement. Measurement frequency: Spot Check. Oxygen saturation interpretation is Normal. Intervention(s) used: None. No results found for this visit on 07/15/14. Progress Notes 6:46 AM: I informed the pt of my clinical impression, and plan to d/c with outpatient f/u. Pt will be given an Rx for a saline nasal spray. I have instructed the patient to take Benadryl or Tylenol if she has rhinorrhea or headache. The pt verbalized understanding and is agreeable. 7:12 AM: heart tones 135. Pt is medically stable for d/c home [...] Oxygen Saturation. Orders Placed This Encounter ??? DISCONTD: acetaminophen (TYLENOL) tablet 500 mg ??? acetaminophen (TYLENOL) tablet ADS Med Diagnosis: Final diagnoses: Epistaxis New Medications: Discharge Medication List as of 07/15/2014 7:11 AM I have advised the patient to follow-up with: [facility] In 2 days Use humidifier and ocean spray in the both nostrils Don't pick or blow your nose Take benadryl/tylenol for running nose and headache. Disposition: Discharged I have reviewed the information recorded by the scribe and agree with its accuracy and contents--Dr. Zuleta 07/15/2014 3:43 PM Transcribed by Milly Romero acting scribe on behalf of Dr. Zuleta 07/15/2014 7:12 AM GER ELIGIBILITY documented in this encounter Plan of Treatment Not on file documented as of this encounter Visit Diagnoses Diagnosis Epistaxis documented in this encounter Active and Recently Administered Medications
--- OUTSIDE RECORDS SUMMARY | 2024-09-25 11:52 | XMS_ITS | Encounter Summary ---
Author Organization [facility] Address [address] [place] [address] Care Team Providers Care Sider Mechanic Name Role Phone Unavailable Primary Care Provider Unavailabl e Reason for Visit * Reason Comments Headache * Auth/Cert - Closed Specialty Diagnoses / Procedures Referred By Norm benjamin Referred To Contact Obstetrics and Gynecology [address] [place] [address] Referral ID Status Reason Start Date Expiration Date Visits Re quested Visits Authorized [id number] Closed 04/04/2014 10/01/2014 1 Encounter Details Date Type Department Care Team (Latest Contact Info) Description 04/03/2014 7:50 PM CDT - 04/03/2014 10:50 PM CDT Hospital Encounter [address] [place], [place] [id number] Sahra Flowers MD [address] [place] [address] [place] [id number] Discharge Disposition: Home or Self Care Social [...] Sign Reading Time Taken Comments Blood Pressure 108/55 04/03/2014 10:36 PM CDT Pulse - - Temperature 36.9 ??C (98.5 ??F) 04/03/2014 7:57 PM CD T Respiratory Rate 17 04/03/2014 7:57 PM CDT Oxygen Saturation - - Inhaled Oxygen Concentration - - Weight 87.5 kg (193 lb) 04/03/2014 8:11 PM CDT Height 162.6 cm (5' 4 ) 04/03/2014 8:11 PM CDT Body Mass Index 33.13 04/03/2014 8:11 PM CDT documented in this encounter Functional [...] this encounter Discharge Instructions * Discharge Instructions* Niharika Tejada RN - 04/03/2014 10:40 PM CDT UNDELIVERED PATIENT DISCHARGE INSTRUCTIONS CALL YOUR DOCTOR (SEE NUMBER BELOW) ?? If you are less than 37 weeks and have move than 5 contractions an hour. ?? Blurring ofvision or spots before your eyes. ?? Ruptured membranes or leakage of vaginal fluid. ?? May be a steady trickle or large gush ?? May be clear, yellow, pink or green ?? Decreased movement--if your baby has stopped movingor is moving less than it normally does. Do Kick Counts as instructed. ?? Vaginal bleeding--bright red bleeding and/or clots needs medical care immediately. ?? Any temperature above 100 degrees. ?? Headache ?? Any burning or painful urination. ?? Increased swelling in your face, hands, or feet. ?? Stomach pains, cramps, nausea,or diarrhea. Important Telephone Number: [facility] [phone] documented in this encounter Medications at Time of Discharge Medication Sig Dispensed Refills Start Date End Date butalbital-acetaminoph en-caffeine (FIORICET) 50-300-40 MG capsule Take 1 Cap by mouth every 4 hours as needed for Headache. 30 Cap 0 04/03/2014 04/15/2014 metroNIDAZOLE (FLAGYL) 500 MG tablet Take 1 Tab by mouth 2 times daily for 7 days. 14 Tab 0 04/15/2014 04/22/2014 nitrofurantoin monohyd macro crystals (MACROBID) 100 MG capsuleIndications:Uri nary Tract Infection Take 1 Cap by mouth 2 times daily with morning and evening meal for 7 days. Indications: Urinary Tract Infection 14 Cap 0 04/15/2014 04/22/2014 ondansetron (ZOFRAN) 4 MG tablet Take 1 Tab by mouth every 4 hours as needed for Nausea/Vomiting. 20 Tab 0 03/07/2014 04/15/2014 polyethylene glycol 3350 (MIRALAX) packet Take 17 g by mouth once daily as needed for Constipation. 30 Packet 3 04/03/2014 04/15/2014 Vit-Fe Fumarate-FA ( VITAMIN) 28-0.8 MG tablet Take 1 Tab by mouth once daily. 04/15/2014 documented as of this encounter H&P Notes * Sahra Flowers MD - 04/03/2014 9:14 PM CDT MS4 Obstetric H&P CC: Headache and abdominal pain HPI: 24 y.o. at 17w4d weeks gestation w/ history of migraine headache and asthma. Endorses 2 day history of right sided unilateral, throbbing temporal headache preceded by nausea and dizziness. Pt states that headache is similar to her typical migraines, but worse in severity. Pain alleviated somewhat by lying on affected side and with tylenol 500 w/ diphenhydramine. Brings painfrom a 10/10 to 8/10. +scomata, +photophobia, +phonophobia. Pt denies vomiting, gait disturbance, lacrimation, rhinorrhea, sinus pressure/tenderness, diplopia or other neurological deficits. Pt also complains of crampy LLQ pain with constipation for ~2weeks. Reports having a BM every 3 days. Passing hard stools, with incomplete feeling of evacuation. Denies dyschezia or hematochezia. Reports low PO fluid or fiber intake. +flatus and +BM today. Some pain improvement with BM this morning. Pt denies constitutional symptoms, dysuria, hematuria, flank pain, malodorous vaginal discharge, vaginal bleeding or vaginal fluid losses/ROM. Dating by: LMP confirmed by 12 week US Estimated Date of Delivery: 09/07/14 care: is with Dr. Bucio at [place] Patient's is complicated by: There are no active problems to display for this patient. Currently, patient presents with headache and constipation/LLQ pain. negative Ctx. negative LOF. negative VB. Movement negative. Review of Symptoms: No RUQ pain No SOB/CP/CT No vomitting/ fevers/ chills/ diarrhea No dysuria/ hematuria/ urinary urgency/ irritation Obstetrical History: OB History Para Term AB TAB SAB Ectopic Multiple Living 2 1 1 # Outc Date GA Lbr Kenji/2nd Wgt Sex Del Anes PTL Lv 2 Current 1 Term 02/2011 39w0d VAGINAL Gynecologic History: Abnormal pap smears: No Cervical procedures no STDs: Yes Chlamydia and trichomonas this . S/p treatment. Denies history of gonorrhea, herpes, HIV, syphilis Medical History: Past Medical History Diagnosis Date ??? Asthma remote ??? Migraines ??? History of anemia ??? Chlamydia this ??? depression She denies history of hypertension, diabetes, or bleeding disorders. Psych History: Depression: Yes, h/o post depression Anxiety: Yes, rare anxiety attacks Bipolar disorder: No Schizophrenia: No Suicide attempts: No Abuse: No Surgeries: Past Surgical History Procedure Laterality Date ??? Negative surgical history Curent Medications: Prior to Admission medications Medication Sig Start Date End Date Taking? Authorizing Provider Vit-Fe Fumarate-FA ( VITAMIN) 28-0.8 MG tablet Take 1 Tab by mouth once daily. YesHistorical Provider, ondansetron (ZOFRAN) 4 MG tablet Take 1 Tab by mouth every 4 hours as needed for Nausea/Vomiting. 03/07/14 Vito Parra MD Allergies: Allergies Allergen Reactions ??? Augmentin Hives Social History: Social History Smoking Status: Former Smoker Packs/Day: 0.25 Years: Smokeless Status: Never Used Comment: Quit smoking in December Alcohol Use: Yes Comment: rarely Drug Use: No Sexual Activity: Not on file Family History: Family History Problem Relation Age of Onset ??? Hypertension Maternal Grandmother ??? Hypertension Mother No history of infants born with defects No history of family members with bleeding disorders No history of breast, ovarian, or uterine cancer Objective: Vitals: 04/03/147 04/03/142010 BP: 115/63 Temp: 98.5 ??F Resp: 17 Weight: 193 lb (87.544 kg) non-stress test (lombardi): not done [place]: no ctx. Physical Exam: General: alert, cooperative, no distress Lungs: clear to auscultation bilaterally Heart: regular rate and rhythm Abdomen: Gravid. LLQ and RLQ mildly ttp, no organomegaly or masses appreciated, normoactive bowel sounds Extremities: normal, non-tender bilaterally. Edema absent. Neuro: Cranial nerves grossly intact, strength 5/5 throughout, sensation grossly intact throughout Current Lab Rewiew: No results found for this visit on 04/03/14. labs reviewed Blood type: O Rh status: positive Ab screen: not done Rubella: unknown Hep B surface antigen: unknown RPR: unknown HIV:unknown GCT: not done, h/o chlamydia and trichomonas this , s/p treatment GBS: Not Tested Assessment/Plan: 24 y.o. @ 17w4d w/ history of migraine headache and asthma presents with headache and crampy abdominal pain with constipation 1. Headache 1. 1000mg tylenol 2. PO fluids 2. Constipation/abd pain 1. Counseled on fluid and fiber intake 2. PO fluids 3. Consider miralax as outpatient 3. FWB reassuring 4. F/u w/ Dr. Bucio at [place] as scheduled 5. Dispo: d/c to home Discussed with Jacqueline Garza Flick and Andree Vázquez 04/03/2014 9:14 PM Addendum: Pt also seen and assessed by me. STYLES improved with Tylenol. BP's normal. Cervix closed/thick/high. Suspect pt not eating and drinking normall. Advised increased water intake, plenty of rest. Tylenol prn for STYLES. Counseled on PTL, bleeding precautions. Natalie Wilkerson MD 04/04/2014 6:39 AM [facility]/w Dr. Phillips and Dr. Flowers. Natalie Wilkerson MD 04/04/2014 6:40 AM [facility] quality control analyst Attending I discussed this case with the above at the time of the pt's presentation. I agree with the above documentation. Briefly, this is a 24 y.o. at 17w Presented with headache Has hx of migraine This feels similar BP 108/55 Temp(Src) 98.5 ??F Resp 17 Wt 193 lb (87.544 kg) BMI 33.11 kg/m2 nonfocal neuro exam A/p: headache, better with tylenol D/c home Sahra Flowers MD 04/05/2014 10:38 AM documented in this encounter Plan of Treatment Not on file documented as of this encounter Procedures Procedure Name Priority Date/Time Associated Diagnosis Comments GLUCOSE - POINT OF CARE Routine 04/03/2014 10:33 PM CDT URINALYSIS REFLEX MICROSCOPIC REFLEX CULTURE STAT 04/03/2014 9:12 PM CDT Supervision of normal , second trimester CULTURE URINE Routine 04/03/2014 9:12 PM CDT Supervision of normal , second trimester GLUCOSE PROTEIN KETONE URINE - POINT OF CAR STAT 04/03/2014 9:06 PM CDT Supervision of normal , second trimester documented in this encounter Results * (ABNORMAL) GLUCOSE - POINT OF CARE (04/03/2014 10:33 PM CDT) Glucose WB/POC 153(H) 70 - 106 mg/dL 04/04/2014 2:12 AM CDT [facility] Blood BLOOD SPECIMEN / Unknown 04/03/2014 10:33 PM CDT 04/04/2014 2:12 AM CDT Sahra Flowers MD LAB - POINT OF CARE ORDERABLES [facility] [address] [place] [address] * CULTURE URINE (04/03/2014 9:12 PM CDT) Culture <10,000 CFU/mL normal urogenital marco CHRYSTAL 04/06/2014 11:22 AM CDT [facility] Urine URINE SPECIMEN OBTAINED BY CLEAN CATCH PROCEDURE / Unknown Collection / Unknown 04/03/2014 9:12 PM CDT 04/03/2014 9:14 PM CDT Susi Diaz MD LAB - MICROBIOLOGY O RDERABLES [facility] [address] [place] [address], [facility] * (ABNORMAL) URINALYSIS ROUTINE W/REFLEX TO CULTURE (04/03/2014 9:12 PM CDT) Color UA Yellow Straw, Yellow, Dark Yellow 04/03/2014 9:25 PM CDT [facility] Clarity UA Clear 04/03/2014 9:25 PM CDT [facility] Specific Mcneal UA 1.023 1.005 - 1.030 04/03/2014 9:25 PM CDT [facility] pH UA 5.5 5.0 - 8.0 pH 04/03/2014 9:25 PM CDT [facility] Protein UA Negative Negative 04/03/2014 9:25 PM CDT [facility] Blood UA Negative Negative 04/03/2014 9:25 PM CDT [facility] Leukocyte UA 1+(A) Negative 04/03/2014 9:25 PM CDT [facility] Nitrite UA Negative Negative 04/03/2014 9:25 PM CDT [facility] Glucose UA Negative Negative 04/03/2014 9:25 PM CDT [facility] Ketone UA 3+(A) Negative 04/03/2014 9:25 PM CDT [facility] Bilirubin UA Negative Negative 04/03/2014 9:25 PM CDT [facility] Urobilinogen UA 0.2 0.1 - 1.0 EU/dL 04/03/2014 9:25 PM CDT [facility] WBC UA Auto 5-10(A) 0-2, 2-5 #/hpf 04/03/2014 9:25 PM CDT [facility] RBC UA Auto 2-5 0-2, 2-5 #/hpf 04/03/2014 9:25 PM CDT [facility] Epithelial Cell UA Auto 2-5 0-2, 2-5 #/hpf 04/03/2014 9:25 PM CDT [facility] Hyaline Casts UA Auto 2-5(A) 0 - 2 #/lpf 04/03/2014 9:25 PM CDT [facility] Reflex Status Culture to follow 04/03/2014 9:25 PM CDT [facility] Urine URINE SPECIMEN OBTAINED BY CLEAN CATCH PROCEDURE / Unknown Collection / Unknown 04/03/2014 9:12 PM CDT 04/03/2014 9:14 PM CDT Susi Diaz MD LAB - URINALYSIS ORD ERABLES [facility] [address] [place] [address] * GLUCOSE PROTEIN KETONE URINE - POINT OF CAR (04/03/2014 9:06 PM CDT) Glucose UA negative Negative [facility] Protein UA negative Negative [facility] Ketone UA Large Negative [facility] QC Verified [facility] POC T TESTING Urine specimen (specimen) URINE / Unknown 04/03/2014 9:06 PM CDT Susi Diaz MD LAB - POINT OF CARE ORDERABLES Performing Organization Address City/[facility] Co de Phone Number [facility] [address] [place] [address], [facility] documented in this encounter Visit Diagnoses Diagnosis Supervision of normal , second trimester (HCC)- Primary documented in this encounter Administered Medications Inactive Administered Medications - up to 3 most recent administrations Medication Order MAR Action Action Date Dose Rate Site acetaminophen (TYLENOL) tablet 1,000 mg 1,000 mg, Oral, ONCE, 1 dose, On Thu04/03/14 at 2100, Maximum allowable Acetaminophen amount = 4 Grams (4000 mg) / 24 hours. $ Given 04/03/2014 8:36 PM CDT 1,000 mg acetaminophen (TYLENOL) tablet ADS Med 1 dose, Starting on Thu04/03/14 at 2033, Until Thu04/03/14 at 2035, NIHARIKA TEJADA: cabinet override documented in this encounter Active and Recently Administered Medications Times are shown in CDT. Scheduled Medication Order 04/01/2014 04/02/2014 04/03/2014 acetaminophen (TYLENOL) tablet 1,000 mg (COMPLETED) 1,000 mg, Oral, ONCE, 1 dose, On Thu04/03/14 at 2100, Maximum allowable Acetaminophen amount = 4 Grams (4000 mg) / 24 hours. 2035 ($ Given - Prov ider: Niharika Tejada RN) documented in this encounter
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
--- OUTSIDE RECORDS SUMMARY | 2024-09-25 11:52 | XMS_ITS | Encounter Summary ---
Author Organization [facility] Address [address] [place] [address] Care Team Providers Care Clay Puddler Name Role Phone Unavailable Primary Care Provider Unavailabl e Reason for Visit * Reason Comments Sore Throat onset 2 days; dry co ugh; fever, runny nose, STYLES, body aches, fever; denies N-V-D Encounter Details Date Type Department Care Team (Late st Contact Info) Description 11/04/2014 8:53 PM AUDIOVISUAL EQUIPMENT OPERATOR - 11/04/2014 10:21 PM AUDIOVISUAL EQUIPMENT OPERATOR Emergency ER at [facility] [address] [place] [id number] Streptococcal sore throat; Hypokalemia; Leukocytosis; Cough Discharge Disposition: Home or Self Care Social [...] Sign Reading Time Taken Comments Blood Pressure 125/71 11/04/2014 4:46 PM AUDIOVISUAL EQUIPMENT OPERATOR Pulse 109 11/04/2014 4:46 PM AUDIOVISUAL EQUIPMENT OPERATOR Temperature 37.1 ??C (98.8 ??F) 11/04/2014 4:46 PM CS T Respiratory Rate 20 11/04/2014 4:46 PM AUDIOVISUAL EQUIPMENT OPERATOR Oxygen Saturation 100% 11/04/2014 4:46 PM AUDIOVISUAL EQUIPMENT OPERATOR Inhaled Oxygen Concentration - - Weight 87.1 kg (192 lb) 11/04/2014 4:46 PM AUDIOVISUAL EQUIPMENT OPERATOR Height 167.6 cm (5' 5.98 ) 11/04/2014 4:46 PM CS T Body Mass Index 31 11/04/2014 4:46 PM AUDIOVISUAL EQUIPMENT OPERATOR documented in this encounter Functional Status [...] Discharge Instructions * Discharge Instructions* Catherine Dubose, AUTOMOBILE SALES REPRESENTATIVE-[employer] SCHO[employer] COUNSELOR - 11/04/2014 10:09 PM AUDIOVISUAL EQUIPMENT OPERATOR Images from the original note were not included. Cough, Adult A cough is a reflex. It helps you clear your throat and airways. A cough can help heal your body. Acough can last 2 or 3 weeks (acute) or may last more than 8 weeks (chronic). Some common causes of a cough can include an infection, allergy, or a cold. HOME CARE ?? Only take medicine as told by your doctor. ?? If given, take your medicines (antibiotics) as told. Finish them even if you start to feel better. ?? Use a cold steam vaporizer or humidier in your home. This can help loosen thick spit (secretions). ?? Sleep so you are almost sitting up (semi-upright). Use pillows to do this. This helps reduce coughing. ?? Rest as needed. ?? Stop smoking if you smoke. GET HELP RIGHT AWAY IF: ?? You have yellowish-white fluid (pus) in your thick spit. ?? Your cough gets worse. ?? Your medicine does not reduce coughing, and you are losing sleep. ?? You cough up blood. ?? You have trouble breathing. ?? Your pain gets worse and medicine does not help. ?? You have a fever. MAKE SURE YOU: ?? Understand these instructions. ?? Will watch your condition. ?? Will get help right away if you are not doing well or get worse. Document Released: 05/06/2012 Document Revised: 11/15/2012 Document Reviewed: 05/06/2012 ExitCare?? Patient Information ??2014 [employer]. Strep Throat, Group A Streptococcus This is a test to determine if a sore throat (pharyngitis) or tonsil infection (tonsillitis) is caused by a Group A streptococcal bacteria (strep throat). The test identifies Streptococcus pyogenes, known as Group A streptococcus, which are bacteria (a type of germ) that infect the back of the throat and cause the common infection called strep throat. PREPARATION FOR TEST A swab is brushed against your throat and tonsils. The swab is tested in your doctor's office or may be sent to a laboratory. NORMAL FINDINGS Normal values are negative for strep. Ranges for normal findings may vary among different laboratories and hospitals. You should always check with your doctor after having lab work or other tests done to discuss the meaning of your test results and whether your values are considered within normal limits. MEANING OF TEST A positive rapid test indicates the presence of group A streptococci, the bacteria that cause strepthroat. A negative rapid test indicates that you probably do not have strep throat. If negative, your caregiver may have the sample tested by doing a second test called a culture (a test that grows ba cteria taking from the throat). This second test is done to be sure that there is no group A strep in your throat. Culture results may take one or two days. Recent antibiotic therapy or gargling withsome mouthwashes before the rapid test may make the test wrong. Your caregiver will go over the test results with you and discuss the importance and meaning of your results, as well as treatment options and the need for additional tests if necessary. OBTAINING THE TEST RESULTS It is your responsibility to obtain your test results. Ask the lab or department performing the test when and how you will get your results. Document Released: 09/26/2005 Document Revised: 11/15/2012 Document Reviewed: 06/19/2009 ExitCare?? Patient Information ??2013 [employer]. Serum Potassium Measurement Potassium is an electrolyte that helps regulate the amount of fluid in the body. It also stimulatesmuscle contraction and maintains a stable acid-base balance. Most of the body???s potassium is inside of cells, and only a very small amount is in the blood. Because the amount in the blood is so small, minor changes can have big effects. PREPARATION FOR TEST Testing for potassium requires taking a blood sample taken by needle from a vein in the arm. The skin is cleaned thoroughly before the sample is drawn. There is no other special preparation needed. NORMAL VALUES: ?? Adults: 3.5-5 mEq/L (3.5-5 mmol/L) ?? Premature neonates, cord blood: 5-10.2 mEq/L (5-10.2 mmol/L) ?? Premature neonates, 48 hours: 3-6 mEq/L (3-6 mmol/L) ?? Neonates: 3.7-5.9 mEq/L (3.7-5.9 mmol/L) ?? Neonates, cord blood: 5.6-12 mEq/L (5.6-12 mmol/L) ?? Infants: 4.1-5.3 mEq/L (4.1-5.3 mmol/L) ?? Children: 3.4-4.7 mEq/L (3.4-4.7 mmol/L) YOUR VALUE IS: MEANING OF TEST Your caregiver will go over the test results with you and discuss the importance and meaning of your results, as well as treatment options and the need for additional tests if necessary. OBTAINING THE TEST RESULTS It is your responsibility to obtain your test results. Ask the lab or department performing the test when and how you will get your results. Normal ranges for lab values and other tests may vary among different laboratories and/or hospitals. You should always check with your doctor after having lab work or other tests done to discuss the meaning of your test results and whether or not your values are considered within normal limits . Document Released: 08/24/2006 Document Re-Released: 08/06/2009 [employer]?? Patient Information ??2009 [employer]. OVISUAL EQUIPMENT OPERATOR documented in this encounter Medications at Time of Discharge Medication Sig Dispensed Refills Start Date End Date clindamycin (CLEOCIN) 300 MG capsule Take 1 Cap by mouth 3 times daily for 7 days. 21 Cap 0 11/04/2014 11/11/2014 guaifenesin-codeine (ROBITUSSIN AC) 100-10 MG/5ML syrup Take 10 mL by mouth every 4 hours as needed for Cough (for cough). 210 mL 0 11/04/2014 01/04/2015 ibuprofen (MOTRIN) 600 MG tablet Take 1 Tab by mouth every 6 hours as needed for Pain. 20 Tab 0 11/04/2014 04/17/2015 Vit-Fe Fumarate-FA ( VITAMIN) 28-0.8 MG tablet Take 1 Tab by mouth once daily. 01/04/2015 documented as of this encounter ED Notes * Shanti Alvares RN - 11/06/2014 11:31 AM CST Culture result reviewed. Appropriate antibiotic prescribed during ED visit. OVISUAL EQUIPMENT OPERATOR * Madyson Small RN - 11/04/2014 10:40 PM CST Patient discharging home. Follow up care reviewed. Prescriptions reviewed. Patient verbalized understanding. Madyson Small RN 11/04/2014 10:41 PM OVISUAL EQUIPMENT OPERATOR * Madyson Small RN - 11/04/2014 10:04 PM CST Patient medicated per NOV. Madyson Small RN 11/04/2014 10:04 PM OVISUAL EQUIPMENT OPERATOR * Cris Infante RN - 11/04/2014 9:28 PM CST IV established. Labs drawn and sent. Patient medicated per NOV. . Cris Infante RN 11/04/2014 9:28PM OVISUAL EQUIPMENT OPERATOR * Madyson Small RN - 11/04/2014 9:00 PM CST Patient present to ED c/o of sore throat. Patient states she started felling sick two days with chills, and body aches. MILITARY NURSE at bedside. Will cont to monitor. Madyson Small RN 11/04/2014 9:01 PM OVISUAL EQUIPMENT OPERATOR * Catherine Dubose, AUTOMOBILE SALES REPRESENTATIVE-[employer]CHO[employer] COUNSELOR - 11/04/2014 8:58 PM CST Provider contact with the patient: 11/04/2014 20:58 Datreion [place] [id number] [facility] EMERGENCY [facility]PARTMENT History Chief Complaint Patient presents with ??? Sore Throat onset 2 days; dry cough; fever, runny nose, STYLES, body aches, fever; denies N-V-D HPI Comments: 24 year old female reports she has severe sore throat , hurts to swallow but can, + fever chills, rare cough, no shortness of breath, no headache rash stiff neck, no chest pain or NV , pain constant ache and is sharp with swallowing Past Medical History Diagnosis Date ??? Asthma [...] Systems Review of Systems Constitutional: Positive for fever, chills and malaise/fatigue. HENT: Positive for sore throat. Negative for ear pain. Eyes: Negative. Respiratory: Positive for cough. Cardiovascular: Negative. Negative for chest pain. Gastrointestinal: Negative. Negative for heartburn, nausea and vomiting. Genitourinary: Negative. Musculoskeletal: Negative. Skin: Negative. Negative for rash. Neurological: Negative. Negative for headaches. Psychiatric/Behavioral: Negative. All other systems reviewed and are negative. Physical Exam BP 125/71 Pulse 109 Temp(Src) 98.8 ??F Resp 20 Ht 1.676 m (5' 5.98 ) Wt 87.091 kg (192 lb) BMI 31.00 kg/m2 SpO2 100% Physical Exam Constitutional: She appears well-developed and well-nourished. HENT: Head: Normocephalic and atraumatic. Right Ear: External ear normal. Left Ear: External ear normal. Nose: Nose normal. Tonsils 3 + with exudate , no muffled voice or drooling , airway patent Eyes: EOM are normal. Pupils are equal, round, and reactive to light. Neck: Normal range of motion. Neck supple. Cardiovascular: Normal rate, regular rhythm, normal heart sounds and intact distal pulses. Pulmonary/Chest: Effort normal and breath sounds normal. Abdominal: Soft. Genitourinary: na Musculoskeletal: Normal range of motion. Lymphadenopathy: She has cervical adenopathy. Neurological: She is alert. Skin: Skin is warm and dry. Nursing note and vitals reviewed. Medications Current Outpatient Prescriptions Medication Sig Dispense Refill ??? Vit-Fe Fumarate-FA ( VITAMIN) 28-0.8 MG tablet Take 1 Tab by mouth once daily. Procedures Procedures ECG Interpretation ECG Interpretation Lab/SPO2 Interpretation Results for orders placed during the hospital encounter of 11/04/14 STREP A SCREEN DIRECT W RFLX STREP A CULTURE Result Value Ref Range Strep A Rapid Positive (*) Negative CBC W AUTO DIFFERENTIAL Result Value Ref Range WBC 13.5 (*) 4.4-10.7 x10^9/L RBC 4.52 3.80-5.20 x10^12/L Hgb 12.2 12.0-15.6 gm/dL HCT 35.6 (*) 35.9-45.5 % MCV 78.8 (*) 80.7-98.3 fl MCH 27.0 26.7-34.0 pg MCHC 34.3 30.8-35.9 gm/dL Plt Ct 348 153-416 x10^9/L RDW-CV 15.6 (*) 12.1-14.9 % MPV 8.9 (*) 9.4-12.9 fl Neutro 69.1 44.0-73.0 % Lymph 15.1 (*) 20.0-43.0 % Inyo 12.3 5.0-13.0 % Eos 2.7 0.0-6.0 % Baso 0.4 0.0-2.0 % Immature Grans 0.4 0-1 % Neutro Abs 9.35 (*) 2.01-7.14 x10^9/L Lymph Abs 2.04 1.07-3.94 x10^9/L Inyo Abs 1.67 (*) 0.26-1.07 x10^9/L Eosin Abs 0.37 0-0.47 x10^9/L Baso Abs 0.06 0-0.08 x10^9/L Immature Grans Abs 0.05 0.00-0.06 x10^9/L BASIC METABOLIC PANEL (CALCIUM TOTAL) Result Value Ref Range Glucose 81 74-106 mg/dL Sodium 142 136-145 mmol/L Potassium 3.3 (*) 3.5-5.1 mmol/L Chloride 110 (*) 98-107 mmol/L CO2 26 22-31 mmol/L Calcium 8.8 8.5-10.1 mg/dL Anion Gap 6 5-15 mmol/L BUN 8 7-21 mg/dL Creatinine 0.65 0.50-1.30 mg/dL eGFR MDRD >60 >60 mL/min/1.73m2 eGFR MDRD AFR AMR >60 >60 mL/min/1.73m2 MONONUCLEOSIS SCREEN Result Value Ref Range Inyo Test Negative Negative No orders to display Progress Notes Stable improved Case discussed with Dr Rosado and plan of care + strep ED Course Medical Decision Making I have reviewed the: Nursing Notes and Vitals. I have interpreted the following results: Labs and Oxygen Saturation. Discharged home with instructions Orders Placed This Encounter ??? STREP A SCREEN DIRECT W RFLX STREP A CULTURE ??? CBC W AUTO DIFFERENTIAL ??? BASIC METABOLIC PANEL (CALCIUM TOTAL) ??? MONONUCLEOSIS SCREEN ??? HCG URINE QUALITATIVE - POINT OF CARE (IP) ??? 0.9% NaCl infusion ??? DISCONTD: dexamethasone (DECADRON) injection 10 mg ??? clindamycin (CLEOCIN) IVPB 900 mg ??? dexamethasone (DECADRON) injection 10 mg ??? potassium chloride (KLOR-CON M) tablet 40 mEq ??? ketorolac (TORADOL) injection 30 mg Clinical Impression Final diagnoses: Streptococcal sore throat Hypokalemia Leukocytosis OVISUAL EQUIPMENT OPERATOR documented in this encounter Plan of Treatment Not on file documented as of this encounter Procedures Procedure Name Priority Date/Time Associated Diagnosis Comments HCG URINE QUALITATIVE - POINT OF CARE Routine 11/04/2014 9:25 PM AUDIOVISUAL EQUIPMENT OPERATOR STREP A SCREEN DIRECT W RFLX STREP A CULTURE STAT 11/04/2014 9:24 PM AUDIOVISUAL EQUIPMENT OPERATOR MONONUCLEOSIS SCREEN STAT 11/04/2014 9:24 PM AUDIOVISUAL EQUIPMENT OPERATOR CBC W AUTO DIFFERENTIAL STAT 11/04/2014 9:24 PM AUDIOVISUAL EQUIPMENT OPERATOR BASIC METABOLIC PANEL (CALCIUM TOTAL) STAT 11/04/2014 9:24 PM AUDIOVISUAL EQUIPMENT OPERATOR documented in this encounter Results * HCG URINE QUALITATIVE - POINT OF CARE (IP) (11/04/2014 9:25 PM AUDIOVISUAL EQUIPMENT OPERATOR) HCG Qual Urine Negative Negative [facility] POCT TESTING QC Verified Yes Yes [facility] POC T TESTING Urine specimen (specimen) URINE / Unknown 11/04/2014 9:25 PM AUDIOVISUAL EQUIPMENT OPERATOR Catherine Dubose APRN-M[employer] SCHOOL COUNSELOR LAB - POINT OF C ARE ORDERABLES [facility] POCT TESTING [address] [phone] * MONONUCLEOSIS SCREEN (11/04/2014 9:24 PM AUDIOVISUAL EQUIPMENT OPERATOR) Mononucleosis Screen Negative Negative 11/04/2014 9:50 PM AUDIOVISUAL EQUIPMENT OPERATOR [facility] Blood BLOOD SPECIMEN / Unknown 11/04/2014 9:24 PM AUDIOVISUAL EQUIPMENT OPERATOR 11/04/2014 9:27 PM AUDIOVISUAL EQUIPMENT OPERATOR Catherine Dubose APRN-MIDDLE SCHOOL COUNSELOR LAB - CHEMISTRY ORDERABLES Performing Organization Address [facility] Co de Phone Number [facility] [address] [place] [address] * (ABNORMAL) STREP A SCREEN DIRECT W RFLX STREP A CULTURE (11/04/2014 9:24 PM AUDIOVISUAL EQUIPMENT OPERATOR) Strep A Rapid Positive(A ) Negative 11/04/2014 9:40 PM [facility] Microbiology ENTIRE THROAT (SURFACE REGION OF NECK) / Unknown 11/04/2014 9:24 PM AUDIOVISUAL EQUIPMENT OPERATOR 11/04/2014 9:27 PM AUDIOVISUAL EQUIPMENT OPERATOR Catherine Dubose APRN-MIDDLE SCHOOL COUNSELOR LAB - MICROBIOLO GY ORDERABLES Performing Organization Address [facility] de Phone Number [facility] [address] [place] [address] [phone] * (ABNORMAL) BASIC METABOLIC PANEL (CALCIUM TOTAL) (11/04/2014 9:24 PM AUDIOVISUAL EQUIPMENT OPERATOR) Pathologist [facility] Glucose 81 74 - 106 mg/dL 11/04/2014 9:38 PM [facility] Sodium 142 136 - 145 mmol/L 11/04/2014 9:38 PM [facility] Potassium 3.3(L) 3.5 - 5.1 mmol/L 11/04/2014 9:38 PM [facility] Chloride 110(H) 98 - 107 mmol/L 11/04/2014 9:38 PM [facility] CO2 26 22 - 31 mmol/L 11/04/2014 9:38 PM [facility] Calcium 8.8 8.5 - 10.1 mg/dL 11/04/2014 9:38 PM [facility] Anion Gap 6 5 - 15 mmol/L 11/04/2014 9:38 PM [facility] BUN 8 7 - 21 mg/dL 11/04/2014 9:38 PM [facility] Creatinine 0.65 0.50 - 1.30 mg/dL 11/04/2014 9:38 PM [facility] eGFR by MDRD >60 >60 mL/min/1.7 3m2 11/04/2014 9:38 PM [facility] eGFR by MDRD >60 >60 mL/min/1.7 3m2 11/04/2014 9:38 PM [facility] Blood BLOOD SPECIMEN / Unknown 11/04/2014 9:24 PM AUDIOVISUAL EQUIPMENT OPERATOR 11/04/2014 9:27 PM AUDIOVISUAL EQUIPMENT OPERATOR Catherine [place] AUTOMOBILE SALES REPRESENTATIVE-[employer]IDDLE SCHOOL COUNSELOR LAB - CHEMISTRY ORDERABLES Performing Organization Address City/State/[facility] Co de Phone Number [facility] [address] [place] [address] * (ABNORMAL) CBC W AUTO DIFFERENTIAL (11/04/2014 9:24 PM AUDIOVISUAL EQUIPMENT OPERATOR) WBC 13.5(H) 4.4 - 10.7 x10^9/L 11/04/2014 9:31 PM [facility] RBC 4.52 3.80 - 5.20 x10^12/L 11/04/2014 9:31 PM [facility] Hemoglobin 12.2 12.0 - 15.6 gm/dL 11/04/2014 9:31 PM [facility] Hematocrit 35.6(L) 35.9 - 45.5 % 11/04/2014 9:31 PM [facility] MCV 78.8(L) 80.7 - 98.3 fl 11/04/2014 9:31 PM [facility] MCH 27.0 26.7 - 34.0 pg 11/04/2014 9:31 PM [facility] MCHC 34.3 30.8 - 35.9 gm/dL 11/04/2014 9:31 PM [facility] Platelet Count 348 153 - 416 x10^9/L 11/04/2014 9:31 PM [facility] RDW-CV 15.6(H) 12.1 - 14.9 % 11/04/2014 9:31 PM [facility] MPV 8.9(L) 9.4 - 12.9 fl 11/04/2014 9:31 PM [facility] Neutrophils % 69.1 44.0 - 73.0 % 11/04/2014 9:31 PM [facility] Lymphocytes % 15.1(L) 20.0 - 43.0 % 11/04/2014 9:31 PM [facility] Monocytes % 12.3 5.0 - 13.0 % 11/04/2014 9:31 PM [facility] Eosinophils % 2.7 0.0 - 6.0 % 11/04/2014 9:31 PM [facility] Basophils % 0.4 0.0 - 2.0 % 11/04/2014 9:31 PM [facility] Immature Granulocytes 0.4 0 - 1 % 11/04/2014 9:31 PM [facility] Neutrophil Absolute 9.35(H) 2.01 - 7.14 x10^9/L 11/04/2014 9:31 PM [facility] Lymphocytes Absolute 2.04 1.07 - 3.94 x10^9/L 11/04/2014 9:31 PM [facility] Monocytes Absolute 1.67(H) 0.26 - 1.07 x10^9/L 11/04/2014 9:31 PM [facility] Eosinophils Absolute 0.37 0 - 0.47 x10^9/L 11/04/2014 9:31 PM [facility] Basophils Absolute 0.06 0 - 0.08 x10^9/L 11/04/2014 9:31 PM [facility] Immature Granulocytes Absolute 0.05 0.00 - 0.06 x10^9/L 11/04/2014 9:31 PM [facility] Blood BLOOD SPECIMEN / Unknown 11/04/2014 9:24 PM AUDIOVISUAL EQUIPMENT OPERATOR 11/04/2014 9:27 PM [facility] Catherine Dubose AUTOMOBILE SALES REPRESENTATIVE-[employer]DLE SCHO[employer] COUNSELOR LAB - HEMATOLOGY ORDERABLES Performing Organization Address [facility]/State/[facility] Co de Phone Number [facility] [address] [place], [place] [phone] documented in this encounter Visit Diagnoses Diagnosis Streptococcal sore throat Hypokalemia Hypopotassemia Leukocytosis Leukocytosis, unspecified Cough documented in this encounter Administered Medications Inactive Administered Medications - up to 3 most recent administrations Medication Order MAR Action Action Date Dose Rate Site 0.9% NaCl infusion at 1,000 mL/hr, Intravenous, ONCE, 1 dose, On 11/04/14 at 2130 $ Given 11/04/2014 9:23 PM AUDIOVISUAL EQUIPMENT OPERATOR 1000 mL/hr clindamycin (CLEOCIN) IVPB 900 mg 900 mg, at 100 mL/hr, Intravenous, EVERY 8 HOURS, First dose on 11/04/14 at 211, Until Discontinued $ Given 11/04/2014 9:23 PM AUDIOVISUAL EQUIPMENT OPERATOR 900 mg 100 mL /hr dexamethasone (DECADRON) injection 10 mg 10 mg, Intravenous, ONCE, 1 dose, On 11/04/14 at 2130, Make sure not first $ Given 11/04/2014 9:23 PM AUDIOVISUAL EQUIPMENT OPERATOR 10 mg ketorolac (TORADOL) injection 30 mg 30 mg, Intravenous, ONCE, 1 dose, On 11/04/14 at 221 $ Given 11/04/2014 10:04 PM AUDIOVISUAL EQUIPMENT OPERATOR 30 mg potassium chloride (KLOR-CON M) tablet 40 mEq 40 mEq, Oral, ONCE, 1 dose, On 11/04/14 at 221, Do not crush or chew. $ Given 11/04/2014 9:52 PM AUDIOVISUAL EQUIPMENT OPERATOR 40 mEq documented in this encounter Active and Recently Administered Medications Times are shown in AUDIOVISUAL EQUIPMENT OPERATOR. Scheduled Medication Order 11/02/2014 11/03/2014 11/04/2014 0.9% NaCl infusion (COMPLETED) at 1,000 mL/hr, Intravenous, ONCE, 1 dose, On 11/04/14 at 2130 2122 ($ Given - Prov ider: Cris Infante RN) clindamycin (CLEOCIN) IVPB 900 mg (CANCELED) 900 mg, at 100 mL/hr, Intravenous, EVERY 8 HOURS, First dose on 11/04/14 at 2114, Until Discontinued 2122 ($ Given - Prov ider: Cris Infante RN)2152 (Rx Stopped - Provider: Cris Infante RN) dexamethasone (DECADRON) injection 10 mg (COMPLETED) 10 mg, Intravenous, ONCE, 1 dose, On 11/04/14 at 2130, Make sure not first 2122 ($ Given - Prov ider: Cris Infante RN) ketorolac (TORADOL) injection 30 mg (COMPLETED) 30 mg, Intravenous, ONCE, 1 dose, On 11/04/14 at 2215 2203 ($ Given - Prov ider: Madyson Small RN) potassium chloride (KLOR-CON M) tablet 40 mEq (COMPLETED) 40 mEq, Oral, ONCE, 1 dose, On 11/04/14 at 2215, Do not crush or chew. 2152 ($ Given - Prov ider: Madyson Small RN) documented in this encounter
--- OUTSIDE RECORDS SUMMARY | 2024-09-25 11:53 | XMS_ITS | Encounter Summary ---
Author Organization [facility] Address [address] [address] Care Team Providers Care Professional Bondsman Name Role Phone Unavailable Primary Care Provider Unavailabl e Reason for Visit * Reason Comments PROBLEM stomach pains, unkno wn weeks LMP 12/01 Encounter Details Date Type Department Care Team (Late st Contact Info) Description 01/10/2014 9:57 PM CDT - 01/11/2014 12:29 AM CDT Emergency ER at [facility] [address] [place] [id number] Bindu Flaherty MD [address] [place] [address] Abdominal pain in (HCC) (Primary Dx) Discharge Disposition: Home or Self [...] Sign Reading Time Taken Comments Blood Pressure 100/57 01/11/2014 12:27 AM CDT Pulse 90 01/11/2014 12:27 AM CDT Temperature 36.8 ??C (98.3 ??F) 01/11/2014 12:27 AM C DT Respiratory Rate 15 01/11/2014 12:27 AM CDT Oxygen Saturation 100% 01/11/2014 12:27 AM CDT Inhaled Oxygen Concentration - - Weight 81.6 kg (180 lb) 01/10/2014 8:55 PM CDT Height 162.6 cm (5' 4 ) 01/10/2014 8:55 PM CDT Body Mass Index 30.9 01/10/2014 8:55 PM CDT documented in this encounter Discharge Instructions * Discharge Instructions* Bindu Flaherty MD - 01/10/2014 11:20 PM CDT Abdominal Pain During Abdominal discomfort is common in . Most of the time, it does not cause harm. There are many causes of abdominal pain. Some causes are more serious than others. Some of the causes of abdominal pain in are easily diagnosed. Occasionally, the diagnosis takes time to understand. Other times, the cause is not determined. Abdominal pain can be a sign that something is very wrong with the , or the pain may have nothing to do with the at all. For this reason, always tell your caregiver if you have any abdominal discomfort. CAUSES Common and harmless causes of abdominal pain include: ?? Constipation. ?? Excess gas and bloating. ?? Round ligament pain. This is pain that is felt in the folds of the groin. ?? The position the baby or placenta is in. ?? Baby kicks. ?? [place] contractions. These are mild contractions that do not cause cervical dilation. Serious causes of abdominal pain include: ?? Ectopic . This happens when a fertilized egg implants outside of the uterus. ?? Miscarriage. ?? labor. This is when labor starts at less than 37 weeks of . ?? Placental abruption. This is when the placenta partially or completely separates from the uterus. ?? Preeclampsia. This is often associated with high blood pressure and has been referred to as toxemia in . ?? Uterine or amniotic fluid infections.?? Causes unrelated to include: ?? Urinary tract infection. ?? Gallbladder stones or inflammation. ?? Hepatitis or other liver illness. ?? Intestinal problems, stomach flu, food poisoning, or ulcer. ?? Appendicitis. ?? Kidney (renal) stones. ?? Kidney infection (pylonephritis). HOME CARE INSTRUCTIONS For mild pain: ?? Do not have sexual intercourse or put anything in your vagina until your symptoms go away completely. ?? Get plenty of rest until your pain improves. If your pain does not improve in 1 hour, call your caregiver. ?? Drink clear fluids if you feel nauseous. Avoid solid food as long as you are uncomfortable or nauseous. ?? Only take medicine as directed by your caregiver. ?? Keep all follow-up appointments with your caregiver. SEEK IMMEDIATE MEDICAL CARE IF: ?? You are bleeding, leaking fluid, or passing tissue from the vagina. ?? You have increasing pain or cramping. ?? You have persistent vomiting. ?? You have painful or bloody urination. ?? You have a fever. ?? You notice a decrease in your baby's movements. ?? You have extreme weakness or feel faint. ?? You have shortness of breath, with or without abdominal pain. ?? You develop a severe headache with abdominal pain. ?? You have abnormal vaginal discharge with abdominal pain. ?? You have persistent diarrhea. ?? You have abdominal pain that continues even after rest, or gets worse. MAKE SURE YOU: ?? Understand these instructions. ?? Will watch your condition. ?? Will get help right away if you are not doing well or get worse. Document Released: 08/24/2006 Document Revised: 11/15/2012 Document Reviewed: 03/19/2012 ExitCare?? Patient Information ??2014 InOpen. * Discharge Instructions* Document, Scanned - 01/14/2014 5:59 AM CDT documented in this encounter ED Notes * Mary Bucio RN - 01/11/2014 12:28 AM CDT Pt stated she feels better. Pt stated she understands all discharge instructions. Pt ambulatory, gait steady. Vitals within normal limits. * Mary Bucio RN - 01/10/2014 10:59 PM CDT IV fluids infusing. Pt's 2 year old daughter at bedside. Vitals within normal limits. Will continue to monitor. * Bindu Flaherty MD - 01/10/2014 10:03 PM CDT Provider contact with the patient: 01/10/2014 22:03 Jumana Rivers [id number] [facility] EMERGENCY DEPARTMENT History Chief Complaint Patient presents with ??? PROBLEM stomach pains, unknown weeks LMP 12/01 HPI Comments: 10:12 PM: Jumana Rivers is a 23 y.o. female with PMH including asthma, migraines, currently who presents to the ED c/o abdominal cramps, intermittent since 1200 today. Pain is located in the bilateral upper quadrants and suprapubic areas.She took an OTC pain reliever tod ay without relief. Pain is worsened when she lies flat. She denies vaginal bleeding and discharge. LMP was 12/01/13; she has regular periods. She is AB0. She has a care appointment forTh. Physician(s): [facility] (PCP) Pain Abdominal The history is provided by the patient. This is a new problem. The current episode started 6 to 12 hours ago. The problem occurs intermittent. The problem has not changed since onset.The pain is associated with an unknown factor. The pain is located in the RUQ, LUQ and suprapubic region. The quality of the pain is cramping. The pain is at a severity of 7/10. The pain is moderate. Radiates to: none. Associated symptoms include nausea.Pertinent negatives include no fever, no diarrhea, no vomiting, no dysuria or no headaches.The pain is worsened by certain positions (lying flat). The pain is relieved by nothing. Past Medical History Diagnosis Date ??? Asthma remote ??? Migraines Past Surgical History Procedure Date ??? Negative surgical history No family history on file. History Social History ??? Marital Status: Single Spouse Name: N/A Number of Children: N/A ??? Years of Education: N/A Occupational History ??? Not on file. Social History Main Topics ??? Smoking status: Current Every Day Smoker -- 0.2 packs/day ??? Smokeless tobacco: Never Used ??? Alcohol Use: Yes rarely ??? Drug Use: No ??? Sexually Active: Not on file Other Topics Concern ??? Not on file Social History Narrative ??? No narrative on file Review of Systems Review of Systems Constitutional: Negative for fever and chills. HENT: Negative for congestion. Eyes: Negative for blurred vision and double vision. Respiratory: Negative for cough and shortness of breath. Cardiovascular: Negative for chest pain and palpitations. Gastrointestinal: Positive for nausea and abdominal pain. Negative for vomiting and diarrhea. Genitourinary: Negative for dysuria and urgency. Skin: Negative for itching and rash. Neurological: Negative for focal weakness, loss of consciousness and headaches. All other systems reviewed and are negative. Physical Exam BP 120/67 Pulse 94 Temp 98.2 ??F Resp 18 Ht 1.626 m (5' 4 ) Wt 81.647 kg (180 lb) BMI 30.88 kg/m2 SpO2 97% Patient Vitals for the past 24 hrs: Temp Pulse Resp BP SpO2 01/10/142054 98.2 ??F 94 18 120/67 mmHg 97 % Physical Exam Nursing note and vitals reviewed. Constitutional: She is well-developed, well-nourished, and in no distress. HENT: Head: Normocephalic and atraumatic. Eyes: Conjunctivae normal and EOM are normal. Pupils are equal, round, and reactive to light. Neck: Normal range of motion. Neck supple. Cardiovascular: Normal rate and regular rhythm. Pulmonary/Chest: Effort normal and breath sounds normal. Abdominal: Soft. Bowel sounds are normal. She exhibits no distension. There is no tenderness. Genitourinary: Vaginal discharge (white) found. > cervix is closed > no active bleeding Musculoskeletal: Normal range of motion. Neurological: She is alert. Skin: Skin is warm and dry. Medications No current outpatient prescriptions on file. Procedures Procedures EKG Interpretation Lab Interpretation Oxygen Saturation Interpretation The oxygen saturation level is: 97%. The patient was on Room Air for the saturation measurement. Measurement frequency: Spot Check. Oxygen saturation interpretation is Normal. Results for orders placed during the hospital encounter of 01/10/14 HCG URINE QUALITATIVE - POINT OF CARE (IP) Component Value Range HCG Qual Urine Positive (*) Negative QC Verified Yes Yes URINALYSIS ROUTINE W/REFLEX TO CULTURE Component Value Range Color UA Dulce (*) Straw, Yellow, Dark Yellow Clarity UA Clear Specific [place] UA >=1.031 (*) 1.005-1.030 pH UA 6.0 5.0-8.0 pH Protein UA Trace (*) Negative Blood UA Negative Negative Leukocyte UA Negative Negative Nitrite UA Negative Negative Glucose UA Negative Negative Ketone UA 3+ (*) Negative Bili UA 1+ (*) Negative Urobilinogen UA 1.0 0.1-1.0 EU/dL Reflex Status Culture not indicated CBC W AUTO DIFFERENTIAL Component Value Range WBC 9.9 4.4-10.7 x10^9/L RBC 4.47 3.80-5.20 x10^12/L Hgb 11.3 (*) 12.0-15.6 gm/dL HCT 33.8 (*) 35.9-45.5 % MCV 75.6 (*) 80.7-98.3 fl MCH 25.3 (*) 26.7-34.0 pg MCHC 33.4 30.8-35.9 gm/dL Plt Ct 342 153-416 x10^9/L RDW-CV 17.6 (*) 12.1-14.9 % MPV 9.2 (*) 9.4-12.9 fl Neutro 57.2 44.0-73.0 % Lymph 27.6 20.0-43.0 % [place] 8.4 5.0-13.0 % Eos 5.9 0.0-6.0 % Baso 0.5 0.0-2.0 % Immature Grans 0.4 0-1 % Neutro Abs 5.65 2.01-7.14 x10^9/L Lymph Abs 2.73 1.07-3.94 x10^9/L [place] Abs 0.83 0.26-1.07 x10^9/L Eosin Abs 0.58 (*) 0-0.47 x10^9/L Baso Abs 0.05 0-0.08 x10^9/L Immature Grans Abs 0.04 0.00-0.06 x10^9/L NRBC Auto 0 COMPREHENSIVE METABOLIC PANEL Component Value Range Glucose 80 74-106 mg/dL Sodium 138 136-145 mmol/L Potassium 3.5 3.5-5.1 mmol/L Chloride 106 98-107 mmol/L CO2 23 22-31 mmol/L Calcium 9.1 8.5-10.1 mg/dL Anion Gap 9 5-15 mmol/L BUN 10 7-21 mg/dL Creatinine 0.41 (*) 0.50-1.30 mg/dL eGFR by MDRD >60 >60 mL/min/1.73m2 eGFR by MDRD AFR AMER >60 >60 mL/min/1.73m2 Alk Phos 50 38-126 U/L ALT/SGPT 13 12-78 U/L AST/SGOT 8 5-40 U/L Protein Total 7.3 6.4-8.2 gm/dL Albumin 3.5 3.4-5.0 gm/dL Bili Total 0.4 0.2-1.0 mg/dL HCG BETA BLOOD QUANTITATIVE Component Value Range HCG Quant Serum [id number] US OB LESS14 WK TRANS/TRNSAB/DOP Final Result: Gestational sac with size consistent with 6 week gestation with estimated date of delivery 09/05/14. No pole is identified and recommend followup ultrasound. Small subchorionic hemorrhage. Progress Notes 11:16 PM Recheck patient; I have informed the patient of the proposed management and plan. The patient reports that they are feeling improved at this time after treatment in the ED. I have given instructions regarding the diagnostic findings and proposed management as well as any return precautions. Patient instructed to follow up with [facility] and [employer] STRATEGIST. Patient is stable and is comfortable with going home. The opportunity for questions was given and questions were answered to the patient's satisfaction. All questions and concerns have been addressed. At this present time, a medical screening exam has been completed. It is determined that the patient does not have an emergency medical condition and is stable for discharge. Vitals at Discharge: BP 120/67 Pulse 94 Temp 98.2 ??F Resp 18 Ht 1.626 m (5' 4 ) Wt 81.647 kg (180 lb) BMI 30.88 kg/m2 SpO2 97% on RA VSS and WNL ED Course: Discharge Medical Decision Making I have reviewed the: Previous Chart, Nursing Notes and Vitals. I have interpreted the following results: Labs, Ultrasound and Oxygen Saturation. 11:16 PM Rx: New Prescriptions No medications on file Follow-up: [facility] DISCHARGED TO HOME IN STABLE CONDITION Orders Placed This Encounter ??? US OB LESS14 WK TRANS/TRNSAB/DOP ??? URINALYSIS ROUTINE W/REFLEX TO CULTURE ??? CBC W AUTO DIFFERENTIAL ??? COMPREHENSIVE METABOLIC PANEL ??? HCG BETA BLOOD QUANTITATIVE ??? HCG URINE QUALITATIVE - POINT OF CARE (IP) ??? dextrose 5% and lactated ringers infusion Clinical Impression Encounter Diagnosis Name Primary? Abdominal pain in Yes 01/10/2014 I have reviewed the information recorded by the scribe and agree with its accuracy and contents--Dr. BINDU FLAHERTY MD Transcribed by Hien Chen acting scribe on behalf of Dr. BINDU FLAHERTY MD * Mary Meadows - 01/10/2014 9:49 PM CDT Pt gone to US documented in this encounter Miscellaneous Notes * Miscellaneous Scans - Document, Scanned - 01/12/2014 1:57 PM CDT documented in this encounter Plan of Treatment Not on file documented as of this encounter Procedures Procedure Name Priority Date/Time Associated Diagnosis Comments US OB LESS 14 WKS W TRANSV W DOPP STAT 01/10/2014 10:12 PM CDT HCG URINE QUALITATIVE - POINT OF CARE Routine 01/10/2014 9:19 PM CDT CBC W AUTO DIFFERENTIAL STAT 01/10/2014 9:16 PM CDT COMPREHENSIVE METABOLIC PANEL STAT 01/10/2014 9:16 PM CDT URINALYSIS REFLEX MICROSCOPIC REFLEX CULTURE STAT 01/10/2014 9:16 PM CDT HCG BETA BLOOD QUANTITATIVE Add on 01/10/2014 9:16 PM CDT documented in this encounter Results * US OB LESS14 WK TRANS/TRNSAB/DOP (01/10/2014 [...] and recommend followup ultrasound. Small subchorionic hemorrhage. Bindu Flaherty MD US ORDERABLES * (ABNORMAL) HCG URINE QUALITATIVE - POINT OF CARE (IP) (01/10/2014 9:19 PM CDT) HCG Qual Urine Positive(A ) Negative [facility] POCT TEST[facility] QC Verified Yes Yes [facility] POC T TESTING Urine specimen (specimen) URINE / Unknown 01/10/2014 9:19 PM CDT Bindu Flaherty MD LAB - POINT OF CARE ORDERABLES [facility] POCT TESTING [address] [place] [address] * (ABNORMAL) COMPREHENSIVE METABOLIC PANEL (01/10/2014 9:16 PM CDT) Glucose 80 74 - 106 mg/dL 01/10/2014 9:39 PM CDT [facility] Sodium 138 136 - 145 mmol/L 01/10/2014 9:39 PM CDT [facility] Potassium 3.5 3.5 - 5.1 mmol/L 01/10/2014 9:39 PM CDT [facility] Chloride 106 98 - 107 mmol/L 01/10/2014 9:39 PM CDT [facility] CO2 23 22 - 31 mmol/L 01/10/2014 9:39 PM CDT [facility] Calcium 9.1 8.5 - 10.1 mg/dL 01/10/2014 9:39 PM CDT [facility] Anion Gap 9 5 - 15 mmol/L 01/10/2014 9:39 PM CDT [facility] BUN 10 7 - 21 mg/dL 01/10/2014 9:39 PM CDT [facility] Creatinine 0.41(L) 0.50 - 1.30 mg/dL 01/10/2014 9:39 PM CDT [facility] eGFR by MDRD >60 >60 mL/min/1.7 3m2 01/10/2014 9:39 PM CDT [facility] eGFR by MDRD >60 >60 mL/min/1.7 3m2 01/10/2014 9:39 PM CDT [facility] Alkaline Phosphatase 50 38 - 126 U/L 01/10/2014 9:39 PM CDT [facility] ALT 13 12 - 78 U/L 01/10/2014 9:39 PM CDT [facility] AST 8 5 - 40 U/L 01/10/2014 9:39 PM CDT [facility] Protein Total 7.3 6.4 - 8.2 gm/dL 01/10/2014 9:39 PM CDT [facility] Albumin 3.5 3.4 - 5.0 gm/dL 01/10/2014 9:39 PM CDT [facility] Bilirubin Total 0.4 0.2 - 1.0 mg/dL 01/10/2014 9:39 PM CDT [facility] Blood BLOOD SPECIMEN / Unknown Venipuncture / Unknown 01/10/2014 9:16 PM CDT 01/10/2014 9:21 PM CDT Bindu Flaherty MD LAB - CHEMISTRY JOANNA [facility] Organization Address City/State/[facility] Co de Phone Number [facility] [address] [place] [address] * (ABNORMAL) CBC W AUTO DIFFERENTIAL (01/10/2014 9:16 PM CDT) WBC 9.9 4.4 - 10.7 x10^9/L 01/10/2014 9:25 PM CDT [facility] RBC 4.47 3.80 - 5.20 x10^12/L 01/10/2014 9:25 PM CDT [facility] Hemoglobin 11.3(L) 12.0 - 15.6 gm/dL 01/10/2014 9:25 PM CDT [facility] Hematocrit 33.8(L) 35.9 - 45.5 % 01/10/2014 9:25 PM CDT [facility] MCV 75.6(L) 80.7 - 98.3 fl 01/10/2014 9:25 PM CDT [facility] MCH 25.3(L) 26.7 - 34.0 pg 01/10/2014 9:25 PM CDT [facility] MCHC 33.4 30.8 - 35.9 gm/dL 01/10/2014 9:25 PM CDT [facility] Platelet Count 342 153 - 416 x10^9/L 01/10/2014 9:25 PM CDT [facility] RDW-CV 17.6(H) 12.1 - 14.9 % 01/10/2014 9:25 PM CDT [facility] MPV 9.2(L) 9.4 - 12.9 fl 01/10/2014 9:25 PM CDT [facility] Neutrophils % 57.2 44.0 - 73.0 % 01/10/2014 9:25 PM CDT [facility] Lymphocytes % 27.6 20.0 - 43.0 % 01/10/2014 9:25 PM CDT [facility] Monocytes % 8.4 5.0 - 13.0 % 01/10/2014 9:25 PM CDT [facility] Eosinophils % 5.9 0.0 - 6.0 % 01/10/2014 9:25 PM T [facility] Basophils % 0.5 0.0 - 2.0 % 01/10/2014 9:25 PM T [facility] Immature Granulocytes 0.4 0 - 1 % 01/10/2014 9:25 PM T [facility] Neutrophil Absolute 5.65 2.01 - 7.14 x10^9/L 01/10/2014 9:25 PM CDT [facility] Lymphocytes Absolute 2.73 1.07 - 3.94 x10^9/L 01/10/2014 9:25 PM CDT [facility] Monocytes Absolute 0.83 0.26 - 1.07 x10^9/L 01/10/2014 9:25 PM T [facility] Eosinophils Absolute 0.58(H) 0 - 0.47 x10^9/L 01/10/2014 9:25 PM T [facility] Basophils Absolute 0.05 0 - 0.08 x10^9/L 01/10/2014 9:25 PM [facility] Immature Granulocytes Absolute 0.04 0.00 - 0.06 x10^9/L 01/10/2014 9:25 PM T [facility] nRBC Auto 0 /100 WBC 01/10/2014 9:25 PM [facility] Blood BLOOD SPECIMEN / Unknown Venipuncture / Unknown 01/10/2014 9:16 PM CDT 01/10/2014 9:21 PM CDT Bindu Flaherty MD LAB - HEMATOLOGY ORD ERABLES Performing Organization Address City/[facility]/ZIP Co de Phone Number [facility] [address] [place] [address] * (ABNORMAL) URINALYSIS ROUTINE W/REFLEX TO CULTURE (01/10/2014 9:16 PM CDT) Color UA Dulce(A) Straw, Yellow, Dark Yellow 01/10/2014 9:26 PM CDT [facility] Clarity UA Clear 01/10/2014 9:26 PM CDT [facility] Specific [place] UA >=1.031(H) 1.005 - 1.030 01/10/2014 9:26 PM CDT [facility] pH UA 6.0 5.0 - 8.0 pH 01/10/2014 9:26 PM CDT [facility] Protein UA Trace(A) Negative 01/10/2014 9:26 PM CDT [facility] Blood UA Negative Negative 01/10/2014 9:26 PM CDT [facility] Leukocyte UA Negative Negative 01/10/2014 9:26 PM CDT [facility] Nitrite UA Negative Negative 01/10/2014 9:26 PM CDT [facility] Glucose UA Negative Negative 01/10/2014 9:26 PM CDT [facility] Ketone UA 3+(A) Negative 01/10/2014 9:26 PM CDT [facility] Bilirubin UA 1+(A) Negative 01/10/2014 9:26 PM CDT [facility] Urobilinogen UA 1.0 0.1 - 1.0 EU/dL 01/10/2014 9:26 PM CDT [facility] Reflex Status Culture not indicated 01/10/2014 9:26 PM T [facility] Urine URINE SPECIMEN OBTAINED BY CLEAN CATCH PROCEDURE / Unknown Collection / Unknown 01/10/2014 9:16 PM CDT 01/10/2014 9:21 PM CDT Bindu Flaherty MD LAB - URINALYSIS ORD ERABLES Performing Organization Address [facility]/ZIP Co de Phone Number [facility] [address] [place] [address] * HCG BETA BLOOD QUANTITATIVE (01/10/2014 9:16 PM CDT) hCG Quantitative 15,640 mIU/mL 01/11/20 14 10:55 PM CDT [facility] Blood BLOOD SPECIMEN / Unknown Venipuncture / Unknown 01/10/2014 9:16 PM CDT 01/10/2014 10:26 PM CDT Narrative [facility] - 01/10/2014 10:55 PM CDT ?? Reference Range, mIU/ml: ? Males ? 2.0 ? Non Females ? 0-6.0 ? Perimenopausal Females ages 41-55* ?0-7.7 ? Postmenopausal Females age >55* ? 0-14 ? Females, Weeks after LMP ?0.2-1 week ? 5-50 ?1 - 2 weeks ?50-500 ?2 - 3 weeks ?100-5000 ?3 - 4 weeks ?500-10,000 ?4 - 5 weeks ?1000-50,000 ?5 - 6 weeks ?10,000-100,000 ?6 - 8 weeks ?15,000-200,000 ?2 - 3 months ? 10,000-100,000 ?Trophoblastic Disease ? >100,000 ? *In higher than expected HCG in females > age 40, a serum FSH >20 IU/L makes unlikely. Bindu Flaherty MD LAB - CHEMISTRY JOANNA YUNG [facility] [address] [place] [address] documented in this encounter Visit Diagnoses Diagnosis Abdominal pain in (HCC)- Primary Other specified complication of , unspecified as to episode of care documented in this encounter Administered Medications Inactive Administered Medications - up to 3 most recent administrations Medication Order MAR Action Action Date Dose Rate Site dextrose 5% and lactated ringers infusion at 999 mL/hr, Intravenous, ONCE, 1 dose, On Thu01/10/14 at 2245 $ Given 01/10/2014 10:31 PM CDT 999 mL/hr documented in this encounter Active and Recently Administered Medications Times are shown in CDT. Scheduled Medication Order 01/09/2014 01/10/2014 01/11/2014 dextrose 5% and lactated ringers infusion (COMPLETED) at 999 mL/hr, Intravenous, ONCE, 1 dose, On Thu01/10/14 at 2245 2231 ($ Given - Provider: Kelly Bucio RN) documented in this encounter
--- OUTSIDE RECORDS SUMMARY | 2024-09-25 11:53 | XMS_ITS | Encounter Summary ---
Author Organization [facility] Address [address] [address] Care Team Providers Care Bulldozer Operator Name Role Phone Unavailable Primary Care Provider Unavailabl e Reason for Visit * Reason Comments Pain Abdominal abd pain and vag spo tting started today approx 12 weeks preg Encounter Details Date Type Department Care Team (Late st Contact Info) Description 03/07/2014 7:38 PM CDT - 03/07/2014 11:10 PM CDT Emergency ER at [facility] [address] [place] [id number] Vito Mac MD [address] [place] [address] Unspecified complication of , antepartum (HCC); Abdominal pain in (HCC) Discharge Disposition: Home or Self Care Social History Tobacco Use Types Packs/Day Years Used Date Smoking Tobacco: Former Cigarettes Smokeless Tobacco: Never Alcohol Use Standard Drinks/Week Comments Yes 0 (1 standard drink = 0.6 oz pur e alcohol) rarely Sex and Gender Information Value Date Recorded Sex Assigned at Not on file Gender Identity Not on file Sexual Orientation Not on file documented as of this encounter Last Filed Vital Signs Vital Sign Reading Time Taken Comments Blood Pressure 110/68 03/07/2014 11:08 PM CDT Pulse 73 03/07/2014 11:08 PM CDT Temperature 36.7 ??C (98 ??F) 03/07/2014 11:08 PM CDT Respiratory Rate 18 03/07/2014 11:08 PM CDT Oxygen Saturation 98% 03/07/2014 11:08 PM CDT Inhaled Oxygen Concentration - - Weight 88.5 kg (195 lb) 03/07/2014 3:50 PM CDT Height 162.6 cm (5' 4.02 ) 03/07/2014 3:50 PM CD T Body Mass Index 33.45 03/07/2014 3:50 PM CDT documented in this encounter Discharge Instructions * Discharge Instructions* Vito Mac MD - 03/07/2014 10:53 PM CDT Abdominal Pain During Abdominal discomfort [...] placenta is in. ?? Baby kicks. ?? Gavino-Jacobo contractions. These are mild contractions that do [...] 11/15/2012 Document Reviewed: 03/19/2012 ExitCare?? Patient Information ??2013 [address]. documented in this encounter Medications at Time of Discharge Medication Sig Dispensed Refills Start Date End Date ondansetron (ZOFRAN) 4 MG tablet Take 1 Tab by mouth every 4 hours as needed for Nausea/Vomiting. 20 Tab 0 03/07/2014 04/15/2014 documented as of this encounter ED Notes * Shanti Alvares RN - 03/09/2014 2:01 PM CDT The patient was contacted and informed of the urine culture results and recommendations for treatment. Her PCP called in treatment for the trich result. The macrobid ordered was called in to [facility] as well. * Shanti Alvares RN - 03/09/2014 2:01 PM CDT The urine culture result was reviewed with Dr. Bernard who prescribed Macrobid 100 mg 1 po bid x 7 days (disp 14). * Shanti Alvares RN - 03/08/2014 12:[address] Zunilda Bucio's office was contacted and the fax number was obtained from [facility]. They were informedof the test results for this patient and her need for treatment because of the positive trich result. The lab results and treatment needs were faxed to the office. * Elijah English RN - 03/07/2014 11:09 PM CDT Pt given dc instructions and prescription. Pt states understanding of meds and follow up. Pt is aox4 and stable. Pt left ambulatory in no distress * Elijah English RN - 03/07/2014 10:40 PM CDT meds given, see MAR * Elijah English RN - 03/07/2014 10:08 PM CDT Pelvic performed with * Elijah English RN - 03/07/2014 9:02 PM CDT Pt waiting to be seen by * Vito Mac MD - 03/07/2014 8:53 PM CDT Provider contact with the patient: 03/07/2014 20:53 Jumana Rivers [id number] [facility] EM[facility] History Chief Complaint Patient presents with ??? Pain Abdominal abd pain and vag spotting started today approx 12 weeks preg HPI Comments: 8:53 PM Jumana Rivers is a 24 y.o. female current gestation of 13 weeks, who presents to the ER with abd pain since earlier today. The patient describes the pain as a cramping sensation not unlike her menstrual cramps, and localizes the pain to her lower abdomen. She rates the pain as 8/10. Gradually throughout the day, the pain began to radiate into her lower back. In addition, the patient noticed some slight vaginal spotting earlier today; her spotting has since resolved. No other vaginal discharge; mild nausea. She is taking pre vitamins, and is scheduled to have her first OB appt with this within a few weeks. She has been seen at [facility] previously, and had an US obtained that per patient showed a viable IUP with FHT. The patient denies any recent injury, trauma or heavy lifting. There are no other exacerbating or relieving factors. No other associated complaints or concerns at this time. Physician (S): [facility] - PCP Pain Abdominal The history is provided by the patient. This is a new problem. The current episode started 6 to 12 hours ago. The problem occurs constantly. The problem has not changed since onset.The pain is associated with an unknown factor. The pain is located in the suprapubic region. The quality of the pain is cramping. The pain is at a severity of 6/10. The pain is moderate. Associated symptoms include nausea.Pertinent negatives include no dysuria.Nothing worsens the pain. The pain is relieved by nothing. Risk factors for an abdominal aortic aneurysm include none. Risk factors for an ectopic include none. Past Medical History Diagnosis Date ??? Asthma remote ??? Migraines Past Surgical History Procedure Laterality Date ??? Negative surgical history No family history on file. History Social History ??? Marital Status: Single Spouse Name: N/A Number of Children: N/A ??? Years of Education: N/A Occupational History ??? Not on file. Social History Main Topics ??? Smoking status: Former Smoker -- 0.25 packs/day ??? Smokeless tobacco: Never Used ??? Alcohol Use: Yes Comment: rarely ??? Drug Use: No ??? Sexually Active: Not on file Other Topics Concern ??? Not on file Social History Narrative Review of Systems Review of Systems Constitutional: Negative. HENT: Negative. Eyes: Negative. Respiratory: Negative. Cardiovascular: Negative. Gastrointestinal: Positive for nausea and abdominal pain. Endocrine: Negative. Genitourinary: Positive for vaginal bleeding. Negative for dysuria, flank pain, vaginal discharge, vaginal pain and pelvic pain. Musculoskeletal: Negative. Skin: Negative. Allergic/Immunologic: Negative. Neurological: Negative. Hematological: Negative. Psychiatric/Behavioral: Negative. All other systems reviewed and are negative. Physical Exam BP 118/54 Pulse 97 Temp(Src) 98.2 ??F Resp 16 Ht 1.626 m (5' 4.02 ) Wt 88.451 kg (195 lb) BMI 33.46 kg/m2 SpO2 100% Patient Vitals for the past 24 hrs: Temp Pulse Resp BP SpO2 03/07/14 2308 98 ??F 73 18 110/68 mmHg 98 % 03/07/141956 - 97 - - 100 % 03/07/141952 - - - 118/54 mmHg 98 % 03/07/14 1550 98.2 ??F 87 16 108/63 mmHg 100 % Physical Exam Constitutional: She is oriented to person, place, and time. She appears well- developed and well-nourished. HENT: Head: Normocephalic and atraumatic. Eyes: Conjunctivae and EOM are normal. Pupils are equal, round, and reactive to light. Neck: Normal range of motion. Neck supple. Cardiovascular: Normal rate, regular rhythm, normal heart sounds and intact distal pulses. No murmur heard. Pulmonary/Chest: Effort normal and breath sounds normal. No respiratory distress. Abdominal: Soft. Bowel sounds are normal. She exhibits no distension. There is no tenderness. Thereis no guarding. Genitourinary: Small amt of discharge. Bilateral adnexal tenderness. No CMT. Cervix closed. No bleeding noted. Musculoskeletal: Normal range of motion. She exhibits no edema or tenderness. Neurological: She is alert and oriented to person, place, and time. No cranial nerve deficit. Skin: Skin is warm and dry. Psychiatric: She has a normal mood and affect. Nursing note and vitals reviewed. Medications Current Outpatient Prescriptions Medication Sig Dispense Refill ??? ondansetron (ZOFRAN) 4 MG tablet Take 1 Tab by mouth every 4 hours as needed for Nausea/Vomiting. 20 Tab 0 Procedures Procedures Lab Interpretation Oxygen Saturation Interpretation The oxygen saturation level is: 100%. The patient was on Room Air for the saturation measurement. Measurement frequency: Continuous. Oxygen saturation interpretation is Normal. Intervention(s) used: None. Results for orders placed during the hospital encounter of 03/07/14 TRICHOMONAS RAPID TEST Result Value Range Trichomonas Rapid Test Positive (*) Negative URINALYSIS ROUTINE W/REFLEX TO CULTURE Result Value Range Color UA Yellow Straw, Yellow, Dark Yellow Clarity UA Clear Specific Commodore UA 1.029 1.005-1.030 pH UA 6.0 5.0-8.0 pH Protein UA Negative Negative Blood UA 3+ (*) Negative Leukocyte UA Trace (*) Negative Nitrite UA Negative Negative Glucose UA Negative Negative Ketone UA Negative Negative Bili UA Negative Negative Urobilinogen UA 1.0 0.1-1.0 EU/dL WBC UA Auto 2-5 0-2, 2-5 #/hpf RBC UA Auto 50-100 (*) 0-2, 2-5 #/hpf Epithelial Cell UA Auto 2-5 0-2, 2-5 #/hpf Hyaline Casts UA Auto 2-5 (*) 0-2 #/lpf Reflex Status Culture to follow CBC W AUTO DIFFERENTIAL Result Value Range WBC 10.9 (*) 4.4-10.7 x10^9/L RBC 4.66 3.80-5.20 x10^12/L Hgb 12.5 12.0-15.6 gm/dL HCT 36.5 35.9-45.5 % MCV 78.3 (*) 80.7-98.3 fl MCH 26.8 26.7-34.0 pg MCHC 34.2 30.8-35.9 gm/dL Plt Ct 341 153-416 x10^9/L RDW-CV 17.1 (*) 12.1-14.9 % MPV 9.2 (*) 9.4-12.9 fl Neutro 63.2 44.0-73.0 % Lymph 22.9 20.0-43.0 % Williamson 9.0 5.0-13.0 % Eos 3.9 0.0-6.0 % Baso 0.4 0.0-2.0 % Immature Grans 0.6 0-1 % Neutro Abs 6.88 2.01-7.14 x10^9/L Lymph Abs 2.50 1.07-3.94 x10^9/L Williamson Abs 0.98 0.26-1.07 x10^9/L Eosin Abs 0.43 0-0.47 x10^9/L Baso Abs 0.04 0-0.08 x10^9/L Immature Grans Abs 0.07 (*) 0.00-0.06 x10^9/L NRBC Auto 0 HCG BETA BLOOD QUANTITATIVE Result Value Range HCG Quant Serum 19003 BLOOD TYPE ABO+ RH PANEL Result Value Range ABO Patient Type O Rh Patient Type Positive Progress Notes Patient is stable while in the ER. 9:56 PM: Bedside US reveals IUP with FHT noted. Patient now concerned about vaginal d/c. 10:50 PM: At this present time, a medical screening exam has been completed. It is determined that the patient does not have an emergency medical condition and is stable for discharge. I have informed the pt of the results and the diagnosis for the patient's discharge. I have given instructions regarding the diagnosis as well as any return precautions and have supplemented the patient with follow up instructions. Any medications given to patient are to be taken accordingly. Patient agrees with plan for discharge and all questions and concerns have been addressed at this point. Patient was counseled on importance of outpatient follow-up to ensure resolution of the presenting problem. Vitals at discharge: BP 118/54 Pulse 97 Temp(Src) 98.2 ??F Resp 16 Ht 1.626 m (5' 4.02 ) Wt 88.451 kg (195 lb) BMI 33.46 kg/m2 SpO2 100% ED Course: Patient is stable for discharge home. Medical Decision Making I have reviewed the: Previous Chart, Nursing Notes and Vitals. I have interpreted the following results: Labs, Ultrasound and Oxygen Saturation. Orders Placed This Encounter ??? CULTURE URINE ??? CHLAMYDIA + GC AMPLIFIED PROBE ??? TRICHOMONAS RAPID TEST ??? URINALYSIS ROUTINE W/REFLEX TO CULTURE ??? CBC W AUTO DIFFERENTIAL ??? HCG BETA BLOOD QUANTITATIVE ??? acetaminophen (TYLENOL) tablet 650 mg ??? cefTRIAXone (ROCEPHIN) injection 250 mg ??? azithromycin (ZITHROMAX) packet 1 g ??? ondansetron (disintegrating) (ZOFRAN ODT) tablet 4 mg ??? ondansetron (ZOFRAN) 4 MG tablet Clinical Impression Encounter Diagnoses Name Primary? Unspecified complication of , antepartum ??? Abdominal pain in New Medications: Discharge Medication List as of 03/07/2014 10:54 PM START taking these medications Details ondansetron (ZOFRAN) 4 MG tablet Disp-20 Tab, R-0, Take 1 Tab by mouth every 4 hours as needed for Nausea/Vomiting. I have advised the patient to follow-up with: [facility] 10:53 PM: Disposition: Discharged to Home Condition: Stable I have reviewed the information recorded by the scribe and agree with its accuracy and contents-- VITO MAC MD Transcribed by [place]--acting scribe on behalf of VITO MAC MD * Elijah English RN - 03/07/2014 7:55 PM CDT Pt states she started having abd cramping and lower back pain that started this morning. Also having spotting at times today. 12 weeks . Has had US already, OB care at [place]. Pt is aox4 and stable. * Criss March, HELP DESK CONSULTANT-COMMUTATOR UNDERCUTTER - 03/07/2014 3:49 PM CDT Provider contact with the patient 3:49 PM 03/07/2014 Patient presents with a chief complaint of vaginal bleeding History of present illness: 24 yo female, states 12 weeks presents with abd pain and vaginal bleeding Physical Exam: Gen: Awake, alert, in no acute distress CV: Regular rate and rhythm, no murmurs appreciated, cap refill < 2 sec, 2+ radial pulse Chest: Clear to auscultation bilaterally, good aeration, no rales, rhonchi, wheezes, or retractions Abd: soft, non-tender, non-distended, normoactive bowel sounds Complete vital signs reviewed. Diagnostic tests ordered: ua, labs Based on the Medical Screening Exam performed and diagnostic tests at this time: ,Further evaluation is indicated and will be performed. Care will be transferred to ER provider. documented in this encounter Plan of Treatment Not on file documented as of this encounter Procedures Procedure Name Priority Date/Time Associated Diagnosis Comments TRICHOMONAS RAPID TEST STAT 03/07/2014 10:09 PM CDT CHLAMYDIA + GC AMPLIFIED PROBE STAT 03/07/2014 10:09 PM CDT URINALYSIS REFLEX MICROSCOPIC REFLEX CULTURE STAT 03/07/2014 4:04 PM CDT CULTURE URINE STAT 03/07/2014 4:04 PM CDT BLOOD TYPE ABO+ RH PANEL STAT 03/07/2014 3:56 PM CDT CBC W AUTO DIFFERENTIAL STAT 03/07/2014 3:56 PM CDT HCG BETA BLOOD QUANTITATIVE STAT 03/07/2014 3:56 PM CDT documented in this encounter Results * (ABNORMAL) TRICHOMONAS RAPID TEST (03/07/2014 10:09 PM CDT) Trichomonas Rapid Test Positive( A) Negative 03/07/2014 10:24 PM CDT [facility] Microbiology ENTIRE VAGINA / Unknown Collection / Unknown 03/07/2014 10:09 PM CDT 03/07/2014 10:12 PM CDT Vito Mac MD LAB - MICROBIOLOGY O RDERABLES [facility] [address] [place] [address] * (ABNORMAL) CHLAMYDIA + GC AMPLIFIED PROBE (03/07/2014 10:09 PM CDT) Pathologist [facility] Chlamydia Amplified Probe Positive(A) Negative 03/08/2014 9:25 AM CDT [facility] MICROBIOLOGY GC Amplified Probe Negative Negative 03/08/2014 9:25 AM CDT [facility] MICROBIOLOGY Microbiology PART OF UTERINE CERVIX / Unknown Collection / Unknown 03/07/2014 10:09 PM CDT 03/07/2014 10:12 PM CDT [facility] MICROBIOLOGY - 03/08/2014 9:25 AM CDT Results based on detection/no detection of ribosomal RNA by amplified method. Vito Mac MD LAB - MICROBIOLOGY O RDERABLES Performing Organization Address [facility] Co de Phone Number [facility] [address] * (ABNORMAL) CULTURE URINE (03/07/2014 4:04 PM CDT) [facility] Culture 10,000-50,000 CFU/mL normal skin/urogenital marco 03/09/2014 10:24 AM CDT [facility] MICROBIOLOGY Culture 1,000-10,000 CFU/mL Streptococcus agalactiae (Group B)(A) 03/09/2014 10:24 AM CDT [facility] MICROBIOLOGY Urine URINE SPECIMEN OBTAINED BY CLEAN CATCH PROCEDURE / Unknown Collection / Unknown 03/07/2014 4:04 PM CDT 03/07/2014 4:09 PM CDT [facility] MICROBIOLOGY - 03/09/2014 10:24 AM CDT Susceptibility testing of penicillin, other beta-lactam antibiotics, and vancomycin is not necessary for beta-hemolytic streptococci groups A,B,C and G because resistant strains have not been recognized. Criss March APRN-COMMUTATOR UNDERCUTTER LAB - MICROBIOLOGY ORDERABLES Performing Organization Address [facility] Co de Phone Number [facility] [address] [place] [address], [facility] * (ABNORMAL) URINALYSIS ROUTINE W/REFLEX TO CULTURE (03/07/2014 4:04 PM CDT) Color UA Yellow Straw, Yellow, Dark Yellow 03/07/2014 4:25 PM CDT [facility] Clarity UA Clear 03/07/2014 4:25 PM CDT [facility] Specific Commodore UA 1.029 1.005 - 1.030 03/07/2014 4:25 PM CDT [facility] pH UA 6.0 5.0 - 8.0 pH 03/07/2014 4:25 PM CDT [facility] Protein UA Negative Negative 03/07/2014 4:25 PM CDT [facility] Blood UA 3+(A) Negative 03/07/2014 4:25 PM CDT [facility] Leukocyte UA Trace(A) Negative 03/07/2014 4:25 PM CDT [facility] Nitrite UA Negative Negative 03/07/2014 4:25 PM CDT [facility] Glucose UA Negative Negative 03/07/2014 4:25 PM CDT [facility] Ketone UA Negative Negative 03/07/2014 4:25 PM CDT [facility] Bilirubin UA Negative Negative 03/07/2014 4:25 PM CDT [facility] Urobilinogen UA 1.0 0.1 - 1.0 EU/dL 03/07/2014 4:25 PM CDT [facility] WBC UA Auto 2-5 0-2, 2-5 #/hpf 03/07/2014 4:25 PM CDT [facility] RBC UA Auto 50-100(A) 0-2, 2-5 #/hpf 03/07/2014 4:25 PM CDT [facility] Epithelial Cell UA Auto 2-5 0-2, 2-5 #/hpf 03/07/2014 4:25 PM CDT [facility] Hyaline Casts UA Auto 2-5(A) 0 - 2 #/lpf 03/07/2014 4:25 PM CDT [facility] Reflex Status Culture to follow 03/07/2014 4:25 PM CDT [facility] Urine URINE SPECIMEN OBTAINED BY CLEAN CATCH PROCEDURE / Unknown Collection / Unknown 03/07/2014 4:04 PM CDT 03/07/2014 4:09 PM CDT Criss March HELP DESK CONSULTANT-COMMUTATOR UNDERCUTTER LAB - URINALYSIS O RDERABLES [facility] [address] [place] [address] * HCG BETA BLOOD QUANTITATIVE (03/07/2014 3:56 PM CDT) hCG Quantitative 63,352 mIU/mL 03/07/20 14 4:35 PM CDT [facility] Blood BLOOD SPECIMEN / Unknown Venipuncture / Unknown 03/07/2014 3:56 PM CDT 03/07/2014 4:04 PM CDT Narrative [facility] - 03/07/2014 4:35 PM CDT ?? Reference Range, mIU/ml: ? [...] a serum FSH >20 IU/L makes unlikely. Criss SAHU LAB - CHEMISTRY OR DERABLES Performing Organization Address [facility] de Phone Number [facility] [address] [place] [address] * BLOOD TYPE ABO+ RH PANEL (03/07/2014 3:56 PM CDT) Pathologist [facility] ABO O 03/07/2014 4:30 PM CDT [facility] Rh Type Positive 03/07/2014 4:30 PM CDT [facility] Comment:History check perfor med. Retype required. Miscellaneous samples (specimen) BLOOD SPECIMEN / Unknown Venipuncture / Unknown 03/07/2014 3:56 PM CDT 03/07/2014 4:04 PM CDT Criss SAHU LAB - BLOOD BANK O RDERABLES Performing Organization Address [facility] Co de Phone Number [facility] * (ABNORMAL) CBC W AUTO DIFFERENTIAL (03/07/2014 3:56 PM CDT) Pathologist [facility] WBC 10.9(H) 4.4 - 10.7 x10^9/L 03/07/2014 4:09 PM CDT [facility] RBC 4.66 3.80 - 5.20 x10^12/L 03/07/2014 4:09 PM CDT [facility] Hemoglobin 12.5 12.0 - 15.6 gm/dL 03/07/2014 4:09 PM CDT [facility] Hematocrit 36.5 35.9 - 45.5 % 03/07/2014 4:09 PM CDT [facility] MCV 78.3(L) 80.7 - 98.3 fl 03/07/2014 4:09 PM CDT [facility] MCH 26.8 26.7 - 34.0 pg 03/07/2014 4:[facility] MCHC 34.2 30.8 - 35.9 gm/dL 03/07/2014 4:09 PM [facility] Platelet Count 341 153 - 416 x10^9/L 03/07/2014 4:09 PM [facility] RDW-CV 17.1(H) 12.1 - 14.9 % 03/07/2014 4:09 PM [facility] MPV 9.2(L) 9.4 - 12.9 fl 03/07/2014 4:09 PM [facility] Neutrophils % 63.2 44.0 - 73.0 % 03/07/2014 4:09 PM [facility] Lymphocytes % 22.9 20.0 - 43.0 % 03/07/2014 4:09 PM T [facility] Monocytes % 9.0 5.0 - 13.0 % 03/07/2014 4:09 PM T [facility] Eosinophils % 3.9 0.0 - 6.0 % 03/07/2014 4:09 PM [facility] Basophils % 0.4 0.0 - 2.0 % 03/07/2014 4:09 PM [facility] Immature Granulocytes 0.6 0 - 1 % 03/07/2014 4:09 PM [facility] Neutrophil Absolute 6.88 2.01 - 7.14 x10^9/L 03/07/2014 4:09 PM CDT [facility] Lymphocytes Absolute 2.50 1.07 - 3.94 x10^9/L 03/07/2014 4:09 PM CDT [facility] Monocytes Absolute 0.98 0.26 - 1.07 x10^9/L 03/07/2014 4:09 PM [facility] Eosinophils Absolute 0.43 0 - 0.47 x10^9/L 03/07/2014 4:09 PM T [facility] Basophils Absolute 0.04 0 - 0.08 x10^9/L 03/07/2014 4:09 PM CDT [facility] Immature Granulocytes Absolute 0.07(H) 0.00 - 0.06 x10^9/L 03/07/2014 4:09 PM CDT [facility] nRBC Auto 0 /100 WBC 03/07/2014 4:09 PM CDT [facility] Blood BLOOD SPECIMEN / Unknown Venipuncture / Unknown 03/07/2014 3:56 PM CDT 03/07/2014 4:04 PM CDT Criss March HELP DESK CONSULTANT-COMMUTATOR UNDERCUTTER LAB - HEMATOLOGY O RDERABLES [facility] [address] [place] [address] documented in this encounter Visit Diagnoses Diagnosis Unspecified complication of , antepartum (HCC) Unspecified complication of , antepartum Abdominal pain in (HCC) Other specified complication of , unspecified as to episode of care documented in this encounter Administered Medications Inactive Administered Medications - up to 3 most recent administrations Medication Order MAR Action Action Date Dose Rate Site acetaminophen (TYLENOL) tablet 650 mg 650 mg, Oral, ONCE, 1 dose, On Thu03/07/14 at 2130, Maximum allowable Acetaminophen amount = 4 Grams (4000 mg) / 24 hours. $ Given 03/07/2014 9:40 PM CDT 650 mg azithromycin (ZITHROMAX) packet 1 g 1 g, Oral, ONCE, 1 dose, On Thu03/07/14 at 2245 $ Given 03/07/2014 10:35 PM CDT 1 g cefTRIAXone (ROCEPHIN) injection 250 mg 250 mg, Intramuscular, ONCE, 1 dose, On Thu03/07/14 at 2230 $ Given 03/07/2014 10:36 PM CDT 250 mg Left Dorsogluteal ondansetron (disintegrating) (ZOFRAN ODT) tablet 4 mg 4 mg, Oral, ONCE, 1 dose, On Thu03/07/14 at 2315 $ Given 03/07/2014 11:02 PM CDT 4 mg documented in this encounter Active and Recently Administered Medications Times are shown in CDT. Scheduled Medication Order 03/05/2014 03/06/2014 03/07/2014 acetaminophen (TYLENOL) tablet 650 mg (COMPLETED) 650 mg, Oral, ONCE, 1 dose, On Thu03/07/14 at 2130, Maximum allowable Acetaminophen amount = 4 Grams (4000 mg) / 24 hours. 2140 ($ Given - Prov ider: Elijah English RN) azithromycin (ZITHROMAX) packet 1 g (COMPLETED) 1 g, Oral, ONCE, 1 dose, On Thu03/07/14 at 2245 2235 ($ Given - Prov ider: Elijah English RN) cefTRIAXone (ROCEPHIN) injection 250 mg (COMPLETED) 250 mg, Intramuscular, ONCE, 1 dose, On Thu03/07/14 at 2230 2236 ($ Given - Prov ider: Elijah English RN) ondansetron (disintegrating) (ZOFRAN ODT) tablet 4 mg (COMPLETED) 4 mg, Oral, ONCE, 1 dose, On Thu03/07/14 at 2315 2302 ($ Given - Prov ider: Anson Mclean, EMT-P) documented in this encounter
--- OUTSIDE RECORDS SUMMARY | 2024-09-25 11:53 | XMS_ITS | Encounter Summary ---
Author Organization [facility] Address [address] [facility] [place] [address] Care Team Providers Care Hyperion Analyst Name Role Phone Unavailable Primary Care Provider Unavailabl e Reason for Visit * Reason Comments Lorenzo Eye c/o pinkeye left eye x 3 days. Redness, itching, drainage. Encounter Details Date Type Department Care Team (Late st Contact Info) Description 11/30/2013 12:23 PM CDT - 11/30/2013 1:26 PM CDT Emergency ER at [facility] [address] [place] [id number] Niharika Lobo, DIGITAL CAMERA TECHNICIAN-COLD ROLL CATCHER [address] [place] [phone] Lorenzo eye (Primary Dx) Discharge Disposition: Home or Self [...] Reading Time Taken Comments Blood Pressure 121/78 11/30/2013 12:10 PM CDT Pulse 82 11/30/2013 12:10 PM CDT Temperature 37.1 ??C (98.8 ??F) 11/30/2013 12:10 PM C DT Respiratory Rate 18 11/30/2013 12:10 PM CDT Oxygen Saturation 100% 11/30/2013 12:10 PM CDT Inhaled Oxygen Concentration - - Weight 77.1 kg (170 lb) 11/30/2013 12:10 PM CDT Height 162.6 cm (5' 4 ) 11/30/2013 12:10 PM CDT Body Mass Index 29.18 11/30/2013 12:10 PM CDT documented in this encounter Discharge Instructions * Discharge Instructions* Niharika Lobo, DIGITAL CAMERA TECHNICIAN-COLD ROLL CATCHER - 11/30/2013 12:31 PM CDT Images from the original note were not included. Bacterial Conjunctivitis Bacterial conjunctivitis (pink eye) is caused by germs. These germs are spread from person to person (contagious). The white part of the eye may look red or pink. The eye may be irritated, watery, orhave a thick discharge. HOME CARE ?? To ease pain, apply a cool, clean washcloth over closed eyelids. Do this for 10 to 20 minutes, 3to 4 times a day. ?? Gently wipe away any fluid coming from the eye with a warm, wet washcloth or cotton ball. ?? Wash your hands often with soap and water. Use paper towels to dry your hands. ?? Do not share towels or washcloths. ?? Change or wash your pillowcase every day. ?? Do not use eye makeup until the infection is gone. ?? Do not use machines or drive if your vision is blurry. ?? Stop using contact lenses. Do not use them again until your doctor says it is okay. ?? Do not touch the tip of the eye drop bottle or medicine tube with your fingers when you put medicine on the eye. ?? Use eye drops or medicated cream as told by your doctor. GET HELP RIGHT AWAY IF: ?? Your eye is not better after 3 days of starting your medicine. ?? You have a yellowish fluid coming out of the eye. ?? You have more pain in the eye. ?? Your eye redness is spreading. ?? Your vision becomes blurry. ?? You have a temperature by mouth above 102?? F (38.9?? C), or as told by your doctor. ?? You have pain in the face, redness, or puffiness (swelling) around the eye. ?? You have problems with medicines you were given. MAKE SURE YOU: ?? Understand these instructions. ?? Will watch this condition. ?? Will get help right away if you are not doing well or get worse. Document Released: 06/02/2009 Document Revised: 02/22/2013 Document Reviewed: 06/02/2009 ExitCare?? Patient Information ??2013 [email or web address]. * Discharge Instructions* Document, Scanned - 12/01/2013 11:26 PM CDT documented in this encounter Medications at Time of Discharge Medication Sig Dispensed Refills Start Date End Date sulfacetamide (BLEPH-10) 10 % ophthalmic solution Instill 2 Drops into both eyes every 3 hours. 5 mL 0 11/30/2013 01/10/2014 documented as of this encounter ED Notes * Martin Strickland, RN - 11/30/2013 1:26 PM CDT Pt discharged aox3 with all follow up instructions given * Niharika Lobo APRN-CNP - 11/30/2013 12:24 PM CDT Provider contact with the patient: 11/30/2013 12:24 [id number] [facility] EMERGENCY DEPARTMENT History Chief Complaint Patient presents with ??? Lorenzo Eye c/o pinkeye left eye x 3 days. Redness, itching, drainage. HPI Comments: 23 y/o femal sent home from work. Reports ~ 2-3 days of left eye matting and crusty, feels slightly irritated. No sick contacts. No fever, chill General The history is provided by the patient. This is a new problem. The current episode started more than 2 days ago. The problem occurs constantly. The problem has been gradually worsening. The pain is at a severity of 0/10. The patient is experiencing no pain. The symptoms are localized to the left eye.Pertinent negatives include no chest pain, no abdominal pain and no headaches. Past Medical History Diagnosis Date ??? Asthma remote Past Surgical History Procedure Date ??? Negative [...] Constitutional: Negative for fever and chills. Eyes: Positive for discharge and redness. Cardiovascular: Negative for chest pain. Gastrointestinal: Negative for abdominal pain. Neurological: Negative for headaches. All other systems reviewed and are negative. Physical Exam BP 121/78 Pulse 82 Temp 98.8 ??F Resp 18 Ht 1.626 m (5' 4 ) Wt 77.111 kg (170 lb) BMI 29.17 kg/m2 SpO2 100% Physical Exam Nursing note and vitals reviewed. Constitutional: She is oriented to person, place, and time and well-developed, well-nourished, and in no distress. HENT: Head: Normocephalic and atraumatic. Eyes: Left eye exhibits discharge. Left conjunctiva is injected. Cardiovascular: Normal rate and regular rhythm. Pulmonary/Chest: Effort normal. No respiratory distress. Lymphadenopathy: She has no cervical adenopathy. Neurological: She is alert and oriented to person, place, and time. GCS score is 15. Skin: Skin is warm and dry. No rash noted. No erythema. No pallor. Psychiatric: Mood, memory, affect and judgment normal. Medications Current Outpatient Prescriptions Medication Sig Dispense Refill ??? sulfacetamide (BLEPH-10) 10 % ophthalmic solution Instill 2 Drops into both eyes every 3 hours.5 mL 0 Procedures Procedures EKG Interpretation Lab/SPO2 Interpretation No results found for this visit on 11/30/13. Progress Notes 23 y/o female o/w healthy works at [employer]- redness of eye, injected with d/c treat as conjunctivitis ED Course Medical Decision Making I have reviewed the: Nursing Notes and Vitals. I have interpreted the following results: Oxygen Saturation. Pt stable while in the ER Orders Placed This Encounter ??? sulfacetamide (BLEPH-10) 10 % ophthalmic solution Clinical Impression Final diagnoses: Lorenzo eye (Primary) documented in this encounter Miscellaneous Notes * Miscellaneous Scans - Document, Scanned - 12/01/2013 11:48 PM CDT * Miscellaneous Scans - Document, Scanned - 12/01/2013 10:42 PM CDT * Miscellaneous Scans - Document, Scanned - 12/01/2013 8:17 PM CDT documented in this encounter Plan of Treatment Not on file documented as of this encounter Visit Diagnoses Diagnosis Lorenzo eye- Primary Other mucopurulent conjunctivitis documented in this encounter
--- OUTSIDE RECORDS SUMMARY | 2024-09-25 11:54 | XMS_ITS | Encounter Summary ---
Author Organization [facility] Address [address] [facility] [place] [address] Care Team Providers Care President Finance Company Name Role Phone Unavailable Primary Care Provider Unavailabl e Reason for Visit * Reason Comments Pain Pelvic pt stated she has be en having pelvic pain for 2 weeks, pt believes she may have a yeast infection Encounter Details Date Type Department Care Team (Late st Contact Info) Description 09/04/2013 2:30 AM FIELD ENUMERATOR - 09/04/2013 3:58 AM FIELD ENUMERATOR Emergency ER at [facility] [address] [place] [id number] Tristan Luz MD [address] [place] [phone] Vaginal yeast infection (Primary Dx) Discharge Disposition: Home or Self Care Social History Tobacco Use Types Packs/Day Years Used Date Smoking Tobacco: Never Alcohol Use Standard Drinks/Week Comments Yes 0 (1 standard drink = 0.6 oz pur e alcohol) rarely Sex and Gender Information Value Date Recorded Sex Assigned at Not on file Gender Identity Not on file Sexual Orientation Not on file documented as of this encounter Last Filed Vital Signs Vital Sign Reading Time Taken Comments Blood Pressure 114/77 09/04/2013 3:47 AM FIELD ENUMERATOR Pulse 80 09/04/2013 3:47 AM FIELD ENUMERATOR Temperature 36.9 ??C (98.5 ??F) 09/04/2013 3:47 AM CS T Respiratory Rate 14 09/04/2013 3:47 AM FIELD ENUMERATOR Oxygen Saturation 100% 09/04/2013 3:47 AM FIELD ENUMERATOR Inhaled Oxygen Concentration - - Weight - - Height - - Body Mass Index - - documented in this encounter Discharge Instructions * Discharge Instructions* Tristan Luz MD - 09/04/2013 3:40 AM FIELD ENUMERATOR Candidal Vulvovaginitis Candidal vulvovaginitis is an infection of the vagina and vulva. The vulva is the skin around the opening of the vagina. This may cause itching and discomfort in and around the vagina. HOME CARE ?? Only take medicine as told by your doctor. ?? Do not have sex (intercourse) until the infection is healed or as told by your doctor. ?? Practice safe sex. ?? Tell your sex partner about your infection. ?? Do not douche or use tampons. ?? Wear cotton underwear. Do not wear tight pants or panty hose. ?? Eat yogurt. This may help treat and prevent yeast infections. GET HELP RIGHT AWAY IF: ?? You have a fever. ?? Your problems get worse during treatment or do not get better in 3 days. ?? You have discomfort, irritation, or itching in your vagina or vulva area. ?? You have pain after sex. ?? You start to get belly (abdominal) pain. MAKE SURE YOU: ?? Understand these instructions. ?? Will watch your condition. ?? Will get help right away if you are not doing well or get worse. Document Released: 11/20/2009 Document Revised: 11/15/2012 Document Reviewed: 11/20/2009 ExitCare?? Patient Information ??2013 [employer]. D ENUMERATOR * Discharge Instructions* Document, Scanned - 09/06/2013 4:13 AM FIELD ENUMERATOR D ENUMERATOR documented in this encounter Medications at Time of Discharge Medication Sig Dispensed Refills Start Date End Date fluconazole (DIFLUCAN) 150 MG tablet Take 1 Tab by mouth once for 1 dose. 1 Tab 0 09/04/2013 09/04/2013 documented as of this encounter ED Notes * Marta Dooley RN - 09/04/2013 3:48 AM CST Pt received discharge instructions and prescriptions, verbalized understanding, agrees to follow upwith obgyn D ENUMERATOR * Ankita Alvarez RN - 09/04/2013 3:[address] Luz at bedside for pelvic exam, Assisted by Pavithra Gonzalez RN D ENUMERATOR * Marta Dooley RN - 09/04/2013 3:34 AM CST Performed pelvic exam with Dr. Luz, pt tolerated well. D ENUMERATOR * Marta Dooley RN - 09/04/2013 2:59 AM CST MD at bedside. D ENUMERATOR * Tristan Luz MD - 09/04/2013 2:59 AM CST Provider contact with the patient: 09/04/2013 02:59 Datreion [place] [id number] [facility] EMERGENCY DEPARTMENT History Chief Complaint Patient presents with ??? Pain Pelvic pt stated she has been having pelvic pain for 2 weeks, pt believes she may have a yeast infection HPI Comments: c/o vaginal itching and discharge For ~ 2 weeks has had thick, chunky vaginal d/c and vaginal itching. Notes that was treated w/ course of doxycycline for cervical inflammation end of Jul 2013. Occas pelvic discomfort that is variable in location and transient. No dysuria, hematuria, urgency. Minimally increased urinary frequency. Has IUD in place. Past Medical History Diagnosis Date ??? Asthma remote Past Surgical History Procedure Date ??? Negative surgical history No family history on file. History Social History ??? Marital Status: Single Spouse Name: N/A Number of Children: N/A ??? Years of Education: N/A Occupational History ??? Not on file. Social History Main Topics ??? Smoking status: Never Smoker ??? Smokeless tobacco: Not on file ??? Alcohol Use: Yes rarely ??? Drug Use: No ??? Sexually Active: Not on file Other Topics Concern ??? Not on file Social History Narrative ??? No narrative on file Review of Systems Review of Systems Constitutional: Negative for fever and chills. HENT: Negative for congestion, sore throat and neck pain. Eyes: Negative for blurred vision and redness. Respiratory: Negative for cough and shortness of breath. Cardiovascular: Negative for chest pain and palpitations. Gastrointestinal: Negative for nausea, vomiting, abdominal pain, diarrhea, constipation and blood in stool. Genitourinary: Positive for frequency. Negative for dysuria and urgency. > as per HPI Musculoskeletal: Negative for back pain. Skin: Negative for itching and rash. Neurological: Negative for focal weakness, seizures and headaches. Psychiatric/Behavioral: Negative for substance abuse. The patient is not nervous/anxious. All other systems reviewed and are negative. Physical Exam BP 108/72 Temp 98.4 ??F SpO2 99% Physical Exam Nursing note and vitals reviewed. Constitutional: She is oriented to person, place, and time and well-developed, well-nourished, and in no distress. HENT: Head: Normocephalic and atraumatic. Mouth/Throat: Oropharynx is clear and moist. Eyes: Conjunctivae normal and EOM are normal. Pupils are equal, round, and reactive to light. Neck: Normal range of motion. Neck supple. No tracheal deviation present. Cardiovascular: Normal rate, regular rhythm and normal heart sounds. Pulmonary/Chest: Effort normal and breath sounds normal. Abdominal: Soft. Bowel sounds are normal. She exhibits no distension. There is no tenderness. Genitourinary: SPECULUM: thick, white, cheesy vaginal d/c. No cervical or vaginal mucusal lesions. IUD strings noted. BIMANUAL: no cervical motion tenderness. No adnexal fullness or tenderness. Musculoskeletal: Normal range of motion. She exhibits no edema. Neurological: She is alert and oriented to person, place, and time. No cranial nerve deficit. She exhibits normal muscle tone. Coordination normal. Skin: Skin is warm and dry. Psychiatric: Mood and affect normal. Medications Current Outpatient Prescriptions Medication Status Sig Dispense Refill ??? fluconazole (DIFLUCAN) 150 MG tablet Active Take 1 Tab by mouth once for 1 dose. 1 Tab 0 Procedures Procedures EKG Interpretation Lab/SPO2 Interpretation Results for orders placed during the hospital encounter of 09/04/13 HCG URINE QUALITATIVE - POINT OF CARE (IP) Component Value Range HCG Qual Urine Negative Negative QC Verified yes Yes URINALYSIS ROUTINE W/REFLEX TO CULTURE Component Value Range Color UA Yellow Straw, Yellow, Dark Yellow Clarity UA Clear Specific [place] UA 1.024 1.005-1.030 pH UA 6.0 5.0-8.0 pH Protein UA Negative Negative Blood UA Negative Negative Leukocyte UA Negative Negative Nitrite UA Negative Negative Glucose UA Negative Negative Ketone UA Negative Negative Bili UA Negative Negative Urobilinogen UA 0.2 0.1-1.0 EU/dL Reflex Status Culture not indicated Progress Notes > Discussed findings and test results, diagnostic considerations, management and follow-up recommendations with patient, who voiced understanding of such. Opportunity to ask questions given, and questions answered to patient's satisfaction. ED Course Medical Decision Making I have reviewed the: Nursing Notes and Vitals. I have interpreted the following results: Labs and Oxygen Saturation. Orders Placed This Encounter ??? TRAY EXAM PELVIC ??? CHLAMYDIA + GC AMPLIFIED PROBE ??? URINALYSIS ROUTINE W/REFLEX TO CULTURE ??? HCG URINE QUALITATIVE - POINT OF CARE (IP) ??? fluconazole (DIFLUCAN) tablet 150 mg ??? fluconazole (DIFLUCAN) 150 MG tablet >>3:44 AM Discharged to home. Clinical Impression Final diagnoses: Vaginal yeast infection (Primary) D ENUMERATOR * Marta Dooley RN - 09/04/2013 2:40 AM CST Pt reports to ED A&Ox4 w/ c/o vaginal discharge, pelvic pain and lower back pain. The lower back pain 4/10 started 2 weeks ago possibly associated with a fall that occurred 3 weeks ago, pt slipped on ice. Pt reports symptoms of a yeast infection starting 2 weeks ago, pt reports attempting otc monistat but did not use the 3 day applicators correctly. Pt reports the pelvic pain 7/10 started 2 weeks ago. Pt is resting on stretcher and appears to be in no apparent distress. D ENUMERATOR documented in this encounter Miscellaneous Notes * Miscellaneous Scans - Document, Scanned - 09/05/2013 8:59 PM CST D ENUMERATOR documented in this encounter Plan of Treatment Not on file documented as of this encounter Procedures Procedure Name Priority Date/Time Associated Diagnosis Comments CHLAMYDIA + GC AMPLIFIED PROBE STAT 09/04/2013 3:53 AM FIELD ENUMERATOR URINALYSIS REFLEX MICROSCOPIC REFLEX CULTURE STAT 09/04/2013 2:49 AM FIELD ENUMERATOR HCG URINE QUALITATIVE - POINT OF CARE Routine 09/04/2013 2:40 AM FIELD ENUMERATOR documented in this encounter Results * CHLAMYDIA + GC AMPLIFIED PROBE (09/04/2013 3:53 AM FIELD ENUMERATOR) Chlamydia Amplified Probe Negative Negative 09/05/2013 11:02 AM FIELD ENUMERATOR [facility] GC Amplified Probe Negative Negative 09/05/2013 11:02 AM FIELD ENUMERATOR [facility] Microbiology ENTIRE ENDOCERVIX / Unknown 09/04/2013 3:53 AM FIELD ENUMERATOR 09/04/2013 3:56 AM FIELD ENUMERATOR Narrative [facility] - 09/05/2013 11:02 AM FIELD ENUMERATOR Results based on detection/no detection of ribosomal RNA by amplified method. Tristan Luz MD LAB - MICROBIOLOGY O RDERABLES [facility] [address] [place] [address], [facility] [[email or web address]] * URINALYSIS ROUTINE W/REFLEX TO CULTURE (09/04/2013 2:49 AM FIELD ENUMERATOR) Color UA Yellow Straw, Yellow, Dark Yellow 09/04/2013 3:08 AM FIELD ENUMERATOR [facility] Clarity UA Clear 09/04/2013 3:08 AM FIELD ENUMERATOR [facility] Specific [place] UA 1.024 1.005 - 1.030 09/04/2013 3:08 AM FIELD ENUMERATOR [facility] pH UA 6.0 5.0 - 8.0 pH 09/04/2013 3:08 AM FIELD ENUMERATOR [facility] Protein UA Negative Negative 09/04/2013 3:08 AM FIELD ENUMERATOR [facility] Blood UA Negative Negative 09/04/2013 3:08 AM FIELD ENUMERATOR [facility] Leukocyte UA Negative Negative 09/04/2013 3:08 AM FIELD ENUMERATOR [facility] Nitrite UA Negative Negative 09/04/2013 3:08 AM FIELD ENUMERATOR [facility] Glucose UA Negative Negative 09/04/2013 3:08 AM FIELD ENUMERATOR [facility] Ketone UA Negative Negative 09/04/2013 3:08 AM FIELD ENUMERATOR [facility] Bilirubin UA Negative Negative 09/04/2013 3:08 AM FIELD ENUMERATOR [facility] Urobilinogen UA 0.2 0.1 - 1.0 EU/dL 09/04/2013 3:08 AM FIELD ENUMERATOR [facility] Reflex Status Culture not indicated 09/04/2013 3:08 AM FIELD ENUMERATOR [facility] Urine URINE SPECIMEN OBTAINED BY CLEAN CATCH PROCEDURE / Unknown Collection / Unknown 09/04/2013 2:49 AM FIELD ENUMERATOR 09/04/2013 2:58 AM FIELD ENUMERATOR Tristan Luz MD LAB - URINALYSIS ORD ERABLES Performing Organization Address [facility] Co de Phone Number [facility] [address] [place] [address] * HCG URINE QUALITATIVE - POINT OF CARE (IP) (09/04/2013 2:40 AM FIELD ENUMERATOR) HCG Qual Urine Negative Negative [facility] QC Verified yes Yes [facility] POC T TESTING Urine specimen (specimen) URINE / Unknown 09/04/2013 2:40 AM FIELD ENUMERATOR Tristan Luz MD LAB - POINT OF CARE ORDERABLES Performing Organization Address [facility] Co de Phone Number [facility] [address] [place] [address] documented in this encounter Visit Diagnoses Diagnosis Vaginal yeast infection- Primary Candidiasis of vulva and vagina documented in this encounter Administered Medications Inactive Administered Medications - up to 3 most recent administrations Medication Order MAR Action Action Date Dose Rate Site fluconazole (DIFLUCAN) tablet 150 mg 150 mg, Oral, DAILY, First dose on 09/04/13 at 0345, Until Discontinued $ Given 09/04/2013 3:56 AM FIELD ENUMERATOR 150 mg documented in this encounter Active and Recently Administered Medications Times are shown in FIELD ENUMERATOR. Scheduled Medication Order 09/02/2013 09/03/2013 09/04/2013 fluconazole (DIFLUCAN) tablet 150 mg (CANCELED) 150 mg, Oral, DAILY, First dose on 09/04/13 at 0345, Until Discontinued 0356 ($ Given - Prov ider: Marta Dooley RN) documented in this encounter
--- OUTSIDE RECORDS SUMMARY | 2024-09-25 11:56 | XMS_ITS | Encounter Summary ---
Author Organization [facility] Address [address] [place] [address]. [place], [place] [id number] [place] [id number] Care Team Providers Care Telephone Station Installer Name Role Phone Non-Staff, Provider Primary Care Provider Unasindhu galvan Reason for Visit * Auth/Cert (Routine) Specialty Diagnoses / Procedures Referred By Norm benjamin Referred To Contact Diagnoses CERVICAL MYELOPATHY G95.9 Procedures HYSTEROSCOPY,RMV FB LAP.W/REMV.TUBES & OVARIES HYSTEROSCOPY WITH INTRAUTERINE DEVICE REMOVAL Alta Marc MD [address] [place] [id number] Phone: tel: fax: Referral ID Status Reason Start Date Expiration Date Visits Re quested Visits Authorized [id number] 1 1 Encounter Details Date Type Department Care Team (Late st Contact Info) Description 03/23/2024 11:09 AM CDT - 03/23/2024 12:29 PM CDT Surgery [facility] [place] [address] Alta Marc MD [address] [place] [id number] OPERATIVE HYSTEROSCOPY WITH INTRAUTERINE DEVICE REMOVAL, VAGINAL CYST REMOVAL Surgery Details Date/Time Status Location OR Service Patient Class Case Class Case Type Trauma Case? 03/23/2024 11:09 AM Posted [facility] OR OR 6 Gynecology Short Stay/Outpat ient Surgery E - Elective No Panel 1 Procedure LRB Anes Op Region Wound Class Comments OPERATIVE HYSTEROSCOPY WITH INTRAUTERINE DEVICE REMOVAL, VAGINAL CYST REMOVAL N/A General Uterus Clean Contaminated Surgeon Surgeon Role Service Panel Alta Marc MD Primary Gynecology 1 Case Notes SCHED WITH SANTOS ON 03/14/24 Mary Anne PHONE ASSESS documented in this encounter Social History Tobacco Use Types Packs/Day Years Used Date Smoking Tobacco: Never Smokeless Tobacco: Never Tobacco Cessation:Counseling Given: Not Answered Alcohol Use Standard Drinks/Week Comments Yes 0 (1 standard drink = 0.6 oz pur e alcohol) social Comments No Sex and Gender Information Value Date Recorded Sex Assigned at Not on file Legal Sex Female 2:06 PM CDT Gender Identity Not on file Sexual Orientation Not on file documented as of this encounter Last Filed Vital Signs Vital Sign Reading Time Taken Comments Blood Pressure 111/81 03/23/2024 9:00 AM CDT Pulse 76 03/23/2024 9:00 AM CDT Temperature 36.5 ??C (97.7 ??F) 03/23/2024 9:00 AM CD T Respiratory Rate 16 03/23/2024 9:00 AM CDT Oxygen Saturation 96% 03/23/2024 9:00 AM CDT Inhaled Oxygen Concentration - - Weight 85.8 kg (189 lb 2.5 oz) 03/23/2024 9:00 A M CDT Height 162.6 cm (5' 4 ) 03/23/2024 9:00 AM CDT Body Mass Index 32.47 03/23/2024 9:00 AM CDT documented in this encounter Discharge Instructions * Discharge Instructions* Lida Tay RN - 03/23/2024 3:49 PM CDT Pelvic rest No sexual intercourse No tampons, douching Watch for heavy bleeding, if you saturate a leticia pad in 1 hour for 2 hrs in a row, call surgeon. No tub bathes, swimming pools or hot tubs until released by surgeon. Because you had anesthesia, we suggest these things: -Avoid greasy, fried or spicy foods for today -Take medication with food -Take an over the counter stool softener if needed for constipation while taking pain medication -Have a responsible adult stay with you the rest of today and overnight -No alcohol, driving, making major decision or operating machinery for 24 hours or while taking pain medication If you have chest pain, shortness of breath, excessive bleeding or drainage, if you cannot hold down anything to eat or drink, or if you cannot urinate, please call 911 or go to the nearest emergencyroom. If you have fever, pain not controlled by your medication, signs of infection such as redness or discharge or swelling at the site, or any other questions or concerns, please call your surgeon. * Attachments The following attachments cannot be sent through Care Everywhere. * Doxycycline, ADULT (Mexican) * Hydroxyzine, ADULT (Mexican) * Oxycodone and Acetaminophen, ADULT (Mexican) * General Anesthesia Discharge Instructions (Mexican) documented in this encounter Medications at Time of Discharge ALPRAZolam (XANAX) 0.5 MG tablet Take 1 tablet (0.5 mg total) by mouth nightly as needed for Sleep or Anxiety. escitalopram (LEXAPRO) 5 MG tablet Take 1 tablet (5 mg total) by mouth daily. hydrOXYzine (VISTARIL) 25 MG capsuleIndications :Status post hysteroscopy Take 1-2 capsules (25-50 mg total) by mouth 4 (four) times daily as needed for Itching or Anxiety (insomnia, nausea or pain). May substitute tabs and or any form of hydroxyzine 30 capsule 2 03/23/2024 ibuprofen (MOTRIN) 200 MG tablet Take 1 tablet (200 mg total) by mouth every 6 (six) hours as needed for Pain. oxyCODONE-acetamin ophen (PERCOCET) 5-325 MG tabletIndications: Acute Pain < 3 Day Supply Take 1 tablet by mouth every 6 (six) hours as needed. Indications: Acute Pain < 3 Day Supply 10 tablet 03/23/2024 phentermine-topira mate (QSYMIA) 3.75-23 MG 24 hr capsule Take 1 capsule by mouth daily. ON HOLD FOR SURGERY SINCE 03/09/24 vitamin D3, cholecalciferol, 125 mcg capsule Take 1 capsule (125 mcg total) by mouth daily. doxycycline hyclate (VIBRA-TABS) 100 MG tabletIndications: Status post hysteroscopy Take 1 tablet (100 mg total) by mouth 2 (two) times daily for 10 days. 20 tablet 03/23/2024 documented as of this encounter H&P Notes * Alta Marc MD - 03/23/2024 1:28 PM CDT Subjective: Patient is doing well. Denies chest pain, shortness of breath Objective: Filed Vitals: 03/16/24 1321 03/23/24 0900 BP: 111/81 Pulse: 76 Resp: 16 Temp: 97.7 ??F (36.5 ??C) TempSrc: Temporal SpO2: 96% Weight: 85.7 kg (189 lb) 85.8 kg (189 lb 2.5 oz) Height: 1.626 m (5' 4 ) 1.626 m (5' 4 ) No change in physical exam from her preop history and physical HGB Date Value Ref Range Status 03/23/2024 10.5 (L) 12.0 - 16.0 G/DL Final No results for input(s): NA , K , CL , CO2 , AGAP , BUN , CR , BUNCREATININ , GFRNON , GFR , GLU , CA in the last 168 hours. A/P: Will proceed with the surgery stated in the preoperative history and physical. Patient had allof her questions answered and we will manage her expectantly. . 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 No medications prior to admission. Allergies Allergen Reactions Augmentin [Amoxicillin-Pot Clavulanate] Hives and Contact Dermatitis Hydrocodone Hives Penicillins Hives Review of systems: ROS no unusual shortness of breath cough or chest pain Physical Exam: Blood /60, pulse60 General:noAcute distress HEENT: Hair distribution over the scalp is symmetric neck is supple without masses Heart: Regular rate and rhythm Lungs: No respiratory distress Abdomen:soft ,no pain, nomass Pelvic: external genitaliawnl, bimanualmidplane strings noted Extremities: Normal movement with no edema Psych : Alert and oriented x3 .vs Filed Vitals: 03/16/24 1321 Weight: 85.7 kg (189 lb) Height: 1.626 m (5' 4 ) Assessment: Retained ParaGard IUD Plan: Hysteroscopic removal of ParaGard IUD patient understands risk benefits and alternatives to the procedure described above we will dilate the cervix and remove the IUD ALTA MARC MD documented in this encounter Nursing Notes * Mckenzie Siu RN - 03/23/2024 1:51 PM CDT Patient received warm blankets upon entry and exit of the OR. Called and updated patient's friend, Azalia, of procedure status at 1347. documented in this encounter OR Notes * Op Note - Alta Marc MD - 03/23/2024 2:20 PM CDT OPERATIVE HYSTEROSCOPY WITH INTRAUTERINE DEVICE REMOVAL, VAGINAL CYST REMOVAL Datreion Deven Jolley 03/23/2024Surgeon(s): Alta Marc MD Anesthesiologist: Manjinder Yusuf MD OFFSHORE WIND TURBINE TECHNICIAN: Amrit Low CRNA Staff: Chemical Etching Processor: ANGELIQUE Luis Circulating Nurse 1: Mckenzie Siu RN Scrub Person 1: Sarah Flaherty, HOG SCRAPER; Ismael Robertson RN Retained placenta for preoperative diagnosis Post-Op Diagnosis: Same with vaginal mass Procedure(s): OPERATIVE HYSTEROSCOPY WITH INTRAUTERINE DEVICE REMOVAL, VAGINAL CYST REMOVAL - Wound Class: Clean Contaminated Anesthesia: General Findings: T IUD strings noted at the cervix and the IUD was mildly embedded into the right side of the uterus this was removed without significant difficulty small polyp was appreciated and curettagewas done to evacuate the lining of the uterus without difficulty the vaginal mass was at the 7 o'clock position of the vaginal introitus which was excised and sent for path and 4 interrupted sutures were placed Complications: None Estimated Blood Loss: 15 mL IV fluids 800 cc of crystalloid Hysteroscopic fluids no deficit Specimens: ID Type Source Tests Collected by Time Destination A : VAGINAL CYST TISSUE VAGINAL PATHOLOGY Alta Marc MD 03/23/2024 3468 Condition: stable on move to Post anesthesia care unit. Procedure: Consents were obtained. All questions were answered. The patient was taken to the operating room where general anesthesia was obtained without difficulty. The patient was placed in the dorsal lithotomy position using the Yellofin stirrups and prepared and draped in a normal sterile fashion. A weighted vaginal speculum was inserted. A single tooth tenaculum was used to grasp the anterior lip of the cervix. The cervix was then dilated. The diagnostic hysteroscope was advanced gently into the patient's uterus. Normal saline was used to distend the uterus. The intrauterine cavity was visualized. In the right arm was noted to be embedded into the uterus the hysteroscopic grasper was then used torecheck and grasped the IUD at the level of the arm and removed from the wall and then the strings were grasped and removed through the cervix without difficulty the diagnostic hysteroscope was removed. A sharp curettage was performed until a gritty texture was noted of all uterine white. This specimen was removed and sent to pathology. The hysteroscope was placed back inside the intrauterine cavi ty and no evidence of perforation was appreciated the hysteroscope was then removed the single tooth tenaculum was removed from the patient's cervix. Hemostasis was excellent. The patient was awakened from general anesthesia without difficulty and taken to the recovery area in stable condition. At this time the core percent Marcaine was used to inject at the level of the base of the vaginal mass and the skin was cut away and the mass was removed with the skin reapproximated with 3-0 Vicryl suture using interrupted sutures x 4 all sponge, lap, instrument and needle counts were correct following the procedure. ALTA MARC MD Date: 03/23/2024 Time: 2:20 PM * OR PreOp - Kelley De Luna CNP - 03/17/2024 8:55 AM CDT Chart reviewed. Per phone interview, patient denies any SOB/CP with 2 FOS or recent changes in activity tolerance in past 6 months. Per phone interview, patient denies having a marketing services manager or previous cardiac testing. * OR PreOp - Claudia Whyte RN - 03/16/2024 1:19 PM CDT Can you climb 2 flights of stairs without severe SOB or chest pain? Yes Are you physically able to do the same things today as 6 months ago? Yes Have you had any heart testing? No Avg BP? 110/70's Do you have a marketing services manager? No Patient has been holding phentermine for surgery since 03/09/24 documented in this encounter Plan of Treatment Not on file documented as of this encounter Procedures Procedure Name Priority Date/Time Associated Diagnosis Comments HYSTEROSCOPY OPERATIVE 03/23/2024 1:30 PM CDT CERVICAL MYELOPATHY G95.9 Case Notes SCHED WITH SANTOS ON 03/14/24 LUANNE PHONE ASSESS PROCEDURE GENERIC 03/23/2024 11: 09 AM CDT CBC W/DIFF AUTOMATED STAT 03/23/2024 9:34 AM CDT IUD mechanical complication TEST URINE Routine 03/23/2024 8:40 AM CDT PATHOLOGY Routine 03/23/2024 12:00 AM CDT documented in this encounter Results * PROCEDURE GENERIC (03/23/2024 11:09 AM CDT) us Alta Marc MD [facility] Final Resu lt * (ABNORMAL) CBC W/DIFF AUTOMATED (03/23/2024 9:34 AM CDT) [facility] WBC 6.51 4.5 - 11.0 x10'3/uL 03/23/2024 10:03 AM CDT [facility] RBC 4.34 4.20 - 5.40 x10'6/uL 03/23/2024 10:03 AM CDT [facility] HGB 10.5(L) 12.0 - 16.0 G/DL 03/23/2024 10:03 AM CDT [facility] HCT 33.3(L) 38.0 - 48.0 % 03/23/2024 10:03 AM CDT [facility] MCV 76.7(L) 81.0 - 99.0 FL 03/23/2024 10:03 AM CDT [facility] MCH 24.2(L) 27.0 - 31.0 PG 03/23/2024 10:03 AM CDT [facility] MCHC 31.5(L) 32.0 - 36.0 G/DL 03/23/2024 10:03 AM CDT [facility] RDW 17.7(H) 11.5 - 14.5 % 03/23/2024 10:03 AM CDT [facility] PLT 453(H) 130 - 400 x10'3/uL 03/23/2024 10:03 AM CDT [facility] MPV 9.0(L) 9.3 - 12.2 FL 03/23/2024 10:03 AM CDT [facility] DIFFERENTIAL TYPE AUTOMATED DIFFERENTIAL 03/23/2024 10:03 AM CDT [facility] NEUTROPHILS % 58.3 % 03/23/2024 10:03 AM CDT [facility] LYMPHOCYTES % 26.3 % 03/23/2024 10:03 AM CDT [facility] MONOCYTES % 9.8 % 03/23/2024 10:03 AM CDT [facility] EOSINOPHILS 4.3 % 03/23/2024 10:03 AM CDT [facility] BASOPHILS 0.8 % 03/23/2024 10:03 AM CDT [facility] IMMATURE GRANS % 0.5 % 03/23/20 10:03 AM CDT [facility] ABS. NEUTROPHILS 3.80 1.80 - 7.70 x10'3/uL 03/23/2024 10:03 AM CDT [facility] ABS. LYMPHOCYTES 1.71 1.00 - 4.80 x10'3/uL 03/23/2024 10:03 AM CDT [facility] ABS. MONOCYTES 0.64 0.24 - 0.86 x10'3/uL 03/23/2024 10:03 AM CDT [facility] ABS. EOSINOPHILS 0.28 0.04 - 0.36 x10'3/uL 03/23/2024 10:03 AM CDT [facility] ABS. BASOPHILS 0.05 0.01 - 0.08 x10'3/uL 03/23/2024 10:03 AM CDT [facility] ABS. IMMATURE GRANULOCYTES 0.03 0.00 - 0.49 x10'3/uL 03/23/2024 10:03 AM CDT [facility] 03/23/2024 9:34 AM CDT Alta Marc MD LABORATORY Final Result [facility] [address] [place] [address], * TEST URINE (03/23/2024 8:40 AM CDT) URINE HCG TEST NEGATIVE NEGATIVE [facility] Comment:[id number] Internal Control: [facility] Comment:[id number] URINE SPECIMEN FROM URETHRA / Unknown 03/23/2024 8:40 AM CDT us Jed Polanco MD URINE ORDERABLES Final Resu lt [facility] [address] [place] [address], * Pathology (03/23/2024 12:00 AM CDT) PATHOLOGY [facility] ? Department of Laboratory Medicine ?[address] ?[place] [address] ? , [facility] [id number] ? Pathology Report ? Surgical Pathology Report Name: ALYSHA JOLLEY ?Specimen #: [id number] Age: 6 1990 (Age: 34) ?Location: [facility] Sex: F ?Procedure Date: 03/23/2024 Hospital #: [id number] ?Date Received: 03/24/2024 Date Reported: 03/25/2024 Provider: ALTA MARC MD Source: Vaginal cyst Clinical History: Cervical myelopathy. Gross Description: Received in formalin, labeled with a patient label and as vaginal cyst is a 1.0 x 1.0 x 0.8 cm cystic structure covered with pink-shelby mucosa. ??The base is identified and inked black. ??The cyst is bisected to reveal thick shelby material. The specimen is entirely submitted in cassette 1. Gross examination (when applicable), interpretation, and sign out were performed at [facility], [address] [place] [address]. FINAL DIAGNOSIS: Vagina, cyst, excision: ? 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 Electronically Signed Out ? CALDERON BILLINGSLEY MD [facility] TISSUE VAGINAL STRUCTURE / Unknown 03/23/2024 1:58 PM CDT us Alta Marc MD PATHOLOGY/CYTOLOGY ORDERABLE S Final Result [facility] [address] [place] [address], [id number] documented in this encounter Visit Diagnoses Not on filedocumented in this encounter Administered Medications Inactive Administered Medications - up to 3 most recent administrations Medication Order MAR Action Action Date Dose Rate Site BUpivacaine-EPINEPHrine 0.25% -[id number] injection As needed, Starting on Thu03/23/24 at 1348, Until Thu03/23/24 at 1419, Intra-Op Given 03/23/2024 1:48 PM CDT 2 mLs Operative Site fentaNYL (SUBLIMAZE) injection 25 mcg 25 mcg, Intravenous, Every 5 min PRN, Moderate pain (Scale 4 - 7), Moderate pain, 4 doses, Starting on Thu03/23/24 at 1400, Until Thu03/23/24 at 1506, Maximum cumulative dose 100 mcg. Do not administer if patient is overly sedated, SpO2 less than 90%, or Respiratory Rate less than 12. If more than one IV analgesic is ordered per pain level, use in this order: fentaNYL, morphine, HYDROmorphone. If desired pain control is not reached, move to next ordered medication at next dosing interval., PACU Given 03/23/2024 2:27 PM CDT 25 mcg lactated ringers infusion at 10 mL/hr, Intravenous, Continuous, Starting on Thu03/23/24 at 0845, Until Thu03/23/24 at 1820, Not to be given to patients with end stage renal disease or dialysis. Infuse at TKO rate, Pre-Op New Bag 03/23/2024 1:30 PM CDT ondansetron (ZOFRAN) injection 4 mg 4 mg, Intravenous, Every 8 hours PRN, Nausea, Vomiting, Starting on Thu03/23/24 at 1415, Until Thu03/23/24 at 1820, IV push over 2-5 minutes. If patient unable to tolerate PO., Post-OpIndications:Status post hysteroscopy ondansetron (ZOFRAN-ODT) disintegrating tablet 4 mg 4 mg, Oral, Every 8 hours PRN, Nausea, Vomiting, Starting on Thu03/23/24 at 1415, Until Thu03/23/24 at 1820, Post-OpIndications:Status post hysteroscopy oxyCODONE-acetaminophen (PERCOCET) 5-325 MG tablet 1 tablet 1 tablet, Oral, Once, 1 dose, On Thu03/23/24 at 1545, Maximum dose of acetaminophen is 4000 mg from all sources in 24 hours. Given 03/23/2024 3:43 PM CDT 1 tablet documented in this encounter Active and Recently Administered Medications Times are shown in CDT. Scheduled Medication Order 03/21/2024 03/22/2024 03/23/2024 clindamycin (CLEOCIN) IVPB 900 mg (COMPLETED) 900 mg, Intravenous, at 100 mL/hr, office helper to O.R., 1 dose, First dose on Thu03/23/24 at 0845, Pre-Op 1337 (Given - Provid er: Amrit Low CRNA) gentamicin (GARAMYCIN) 430 mg in sodium chloride 0.9 % 110.75 mL IVPB (COMPLETED) 430 mg, Intravenous, at 110.8 mL/hr, Once, 1 dose, On Thu03/23/24 at 0930 1333 (MAR Hold - Pro vider: User Epic - Reason: Unreviewed Transfer Orders)1340 (New Bag - Provider: Amrit Low CRNA)1340 (MAR Unhold - Provider: Amrit Low CRNA)1355 (Infusion Stop Time - Provider: Amrit Low CRNA) oxyCODONE-acetaminophen (PERCOCET) 5-325 MG tablet 1 tablet (COMPLETED) 1 tablet, Oral, Once, 1 dose, On Thu03/23/24 at 1545, Maximum dose of acetaminophen is 4000 mg from all sources in 24 hours. 1543 (Given - Provid er: Lida Tay RN) Continuous Medication Order 03/21/2024 03/22/2024 03/23/2024 lactated ringers infusion at 10 mL/hr, Intravenous, Continuous, Starting on Thu03/23/24 at 0845, Until Thu03/23/24 at 1820, Not to be given to patients with end stage renal disease or dialysis. Infuse at TKO rate, Pre-Op 1330 (New Bag - Prov ider: Amrit Low CRNA)1406 (Anesthesia Volume Adjustment - Provider: Amrit Low CRNA) lactated ringers infusion at 125 mL/hr, Intravenous, Continuous, Starting on Thu03/23/24 at 1445, Until Thu03/23/24 at 1820, Post-Op 1445 (Canceled Entry - Provider: Automatic Discharge Provider - Comment: Automatically canceled at discontinue of medication order) PRN Medication Order 03/21/2024 03/22/2024 03/23/2024 BUpivacaine-EPINEPHrine 0.25% -1:[id number] injection (CANCELED) As needed, Starting on Thu03/23/24 at 1348, Until Thu03/23/24 at 1419, Intra-Op 1348 (Given - Provid er: Alta Marc MD) fentaNYL (SUBLIMAZE) injection 25 mcg (CANCELED) 25 mcg, Intravenous, Every 5 min PRN, Moderate pain (Scale 4 - 7), Moderate pain, 4 doses, Starting on Thu03/23/24 at 1400, Until Thu03/23/24 at 1506, Maximum cumulative dose 100 mcg. Do not administer if patient is overly sedated, SpO2 less than 90%, or Respiratory Rate less than 12. If more than one IV analgesic is ordered per pain level, use in this order: fentaNYL, morphine, HYDROmorphone. If desired pain control is not reached, move to next ordered medication at next dosing interval., PACU 1427 (Given - Provid er: Berna Loza RN) HYDROcodone-acetaminophen (NORCO) 10-325 MG tablet 1 tablet 1 tablet, Oral, Every 4 hours PRN, Severe pain (Scale 8 - 10), Starting on Thu03/23/24 at 1415, Until Thu03/23/24 at 1820, Maximum dose of acetaminophen is 4000 mg from all sources in 24 hours., Post-Op HYDROcodone-acetaminophen (NORCO) 5-325 MG tablet 1 tablet 1 tablet, Oral, Every 4 hours PRN, Moderate pain (Scale 4 - 7), Starting on Thu03/23/24 at 1415, Until Thu03/23/24 at 1820, Maximum dose of acetaminophen is 4000 mg from all sources in 24 hours., Post-Op ondansetron (ZOFRAN) injection 4 mg(Linked Group 1) 4 mg, Intravenous, Every 8 hours PRN, Nausea, Vomiting, Starting on Thu03/23/24 at 1415, Until Thu03/23/24 at 1820, IV push over 2-5 minutes. If patient unable to tolerate PO., Post-Op ondansetron (ZOFRAN-ODT) disintegrating tablet 4 mg(Linked Group 1) 4 mg, Oral, Every 8 hours PRN, Nausea, Vomiting, Starting on Thu03/23/24 at 1415, Until Thu03/23/24 at 1820, Post-Op Linked Groups Order Group 1: ondansetron (ZOFRAN-ODT) disintegrating tablet 4 mgJump to med 4 mg, Oral, Every 8 hours PRN, Nausea, Vomiting, Starting on Thu03/23/24 at 1415, Until Thu03/23/24 at 1820, Post-Op Or ondansetron (ZOFRAN) injection 4 mgJump to med 4 mg, Intravenous, Every 8 hours PRN, Nausea, Vomiting, Starting on Thu03/23/24 at 1415, Until Thu03/23/24 at 1820, IV push over 2-5 minutes. If patient unable to tolerate PO., Post-Op documented in this encounter Care Teams Telephone Station Installer Relationship Specialty Start Date End Date Non-Staff, Provider PCP - General UNKNOWN PHYSICIAN SPECIALTY 03/23/24 documented as of this encounter
--- OUTSIDE RECORDS SUMMARY | 2024-09-25 11:56 | XMS_ITS | Clinical Summary ---
Author Organization [facility] Address [address] [place] [address]. [place], [place] [address] [place] [address] Care Team Providers Care Custom Tailor Apprentice Name Role Phone Non-Staff, Provider Primary Care Provider Kathleenvaly lable Allergies Active Allergy Reactions Criticality Noted Date Comments Amoxicillin-Pot Clavulanate Hives,Contact Dermatitis 03/16/2024 Hydrocodone Hives 03/16/2024 Penicillins Hives 03/16/2024 Medications phentermine-topi ramate (QSYMIA) 3.75-23 MG 24 hr capsule Take 1 capsule by mouth daily. ON HOLD FOR SURGERY SINCE 03/09/24 Active ALPRAZolam (XANAX) 0.5 MG tablet Take 1 tablet (0.5 mg total) by mouth nightly as needed for Sleep or Anxiety. Active vitamin D3, cholecalciferol, 125 mcg capsule Take 1 capsule (125 mcg total) by mouth daily. Active escitalopram (LEXAPRO) 5 MG tablet Take 1 tablet (5 mg total) by mouth daily. Active ibuprofen (MOTRIN) 200 MG tablet Take 1 tablet (200 mg total) by mouth every 6 (six) hours as needed for Pain. Active oxyCODONE-acetam inophen (PERCOCET) 5-325 MG tabletIndication s:Acute Pain < 3 Day Supply Take 1 tablet by mouth every 6 (six) hours as needed. Indications: Acute Pain < 3 Day Supply 10 tablet 4 Active hydrOXYzine (VISTARIL) 25 MG capsuleIndicatio ns:Status post hysteroscopy Take 1-2 capsules (25-50 mg total) by mouth 4 (four) times daily as needed for Itching or Anxiety (insomnia, nausea or pain). May substitute tabs and or any form of hydroxyzine 30 capsule 2 Active Social History Tobacco Use Types Packs/Day Years [...] Sign Reading Time Taken Comments Blood Pressure 136/90 03/23/2024 4:05 PM CDT Pulse 82 03/23/2024 4:05 PM CDT Temperature 36.9 ??C (98.4 ??F) 03/23/2024 4:05 PM CD T Respiratory Rate 16 03/23/2024 4:05 PM CDT Oxygen Saturation 98% 03/23/2024 4:05 PM CDT Inhaled Oxygen Concentration - - Weight 85.8 kg (189 lb 2.5 oz) 03/23/2024 9:00 A M CDT Height 162.6 cm (5' 4 ) 03/23/2024 9:00 AM CDT Body Mass Index 32.47 03/23/2024 9:00 AM CDT Plan of Treatment Health Maintenance Due Date Last Done Comments Cervical Cancer Screening Pa p Smear (Age 30 to 64) Every 3 Years 1992 Annual Physical 02/17/1995 Hepatitis C 02/17/2010 Hepatitis B Vaccines (1 of 3 - 19+ 3-dose series) 02/17/2011 Cervical Cancer Screening Pa p with HPV Testing (Age 30 to 64) Every 5 Years 02/17/2022 Cervical Cancer Screening wi th HPV 02/17/2022 COVID-19 Vaccine ( - 2023-2 5 season) 2024 02/25/2023, 08/13/2021 Influenza Adult (#1) 2024 02/25/2023, 06/20/2014 DTaP, Tdap and Td Vaccines ( 3 - Td or Tdap) 01/26/2033 01/26/2023, 07/04/2014 HPV Vaccines Aged Out No longer eligi ble based on patient's age to complete this topic Meningococcal Vaccine Aged Out No serenity naida eligible based on patient's age to complete this topic Pneumococcal Vaccine: Pediatrics (0 to 5 Years) and At-Risk Patients (6 to 64 Years) Aged Out No longer eligible b ased on patient's age to complete this topic RSV Immunizations Under 20 Months Aged Out No longer eligible b ased on patient's age to complete this topic Insurance Advance Directives * Full Code (Latest Code Status on File) Date Activated Date Inactivated Comments 03/23/2024 2:19 PM 03/23/2024 6:20 PM Care Teams Custom Tailor Apprentice Relationship Specialty Start Date End Date Non-Staff, Provider PCP - General UNKNOWN PHYSICIAN SPECIALTY 03/23/24
--- OUTSIDE RECORDS SUMMARY | 2024-09-25 11:56 | XMS_ITS | Encounter Summary ---
Author Organization [facility] Address [address] [place] [address]. [place] [address] [place] [address] Care Team Providers Care Inseam Leveler Name Role Phone Non-Staff, Provider Primary Care Provider Unasindhu galvan Reason for Visit * Auth/Cert (Routine) Specialty Diagnoses / Procedures Referred By Norm t Referred To Contact Diagnoses CERVICAL MYELOPATHY G95.9 Procedures HYSTEROSCOPY,RMV FB LAP.W/REMV.TUBES & OVARIES HYSTEROSCOPY WITH INTRAUTERINE DEVICE REMOVAL Justin Christie MD [address] [place] [address] Phone: tel: fax: Referral ID Status Reason Start Date Expiration Date Visits Re quested Visits Authorized [id number] 1 1 Encounter Details Date Type Department Care Team (Late st Contact Info) Description 03/23/2024 1:30 PM CDT Anesthesia Event [facility] OR [place], [place] [id number] Manjinder Yusuf MD [address] [facility] [address] [place] [address] Kelley De Luna, GL ACCOUNTANT [address] [place] [address] Anesthesia Record Procedure Summary Procedure Name Responsible Anesthesiologist Anesthesia Start Time Anesthesia Stop Time OPERATIVE HYSTEROSCOPY WITH INTRAUTERINE DEVICE REMOVAL, VAGINAL CYST REMOVAL (Uterus) Manjinder Yusuf MD 03/23/24 1330 03/23/24 1412 Events Date Time Event Comment 03/23/2024 0904 0936 AN Anesthesia Prepped 1330 An Start Patient ID and consent checked and patient reassessed. 1330 An Start Data 1330 Quick Note MARIMAR Musa introduced to the patient and the patient verbally consents for the SRNA to participate in all appropriate aspects of perioperative care under the direct supervision of the DATABASE ADMINISTRATION PROJECT MANAGER. DATABASE ADMINISTRATION PROJECT MANAGER remains present for continuous supervision of the SRNA and maintains responsibility for documentation. 1333 Preoxygenation 1334 An Induction The patient was reevaluated immediately before moderate or deep sedation use and before anesthesia induction. 1336 An LMA 1336 Anesthesia Ready 1409 An Emergence 1412 LMA Removed 1412 Face Mask Applied 1412 an stop data 1412 Post Anesthetic Care Handoff I completed my handoff to the receiving nurse during which we: 1. Identified the patient 2. Identified the responsible provider 3. Reviewed the pertinent medical history 4. Discussed the surgical course 5. Reviewed intra-op anesthesia management and issues during anesthesia 6. Set expectations for post-procedure period 7. Allowed opportunity for questions and acknowledgement of understanding. 1412 An Stop Meds Name Total clindamycin (CLEOCIN) IVPB 900 mg 900 mg gentamicin (GARAMYCIN) 430 mg in sodium chloride 0.9 % 110.75 mL IVPB 430 mg propofol (DIPRIVAN) 200 mg/20 mL injecti on 140 mg dexamethasone (DECADRON) injection 8 mg ondansetron (ZOFRAN) 4 mg/2 mL injection 4 mg ketorolac (TORADOL) 30 mg/mL injection 3 0 mg lidocaine (PF) (XYLOCAINE) 2% injection 40 mg fentaNYL (SUBLIMAZE) 100 mcg/2 mL inject ion 100 mcg famotidine (PEPCID) 10 mg/mL injection 2 0 mg lactated ringers infusion 300 mL * Agents Name O2 Air Inspired Sevoflurane Sevoflurane * Blood No blood administrations on file. Lines, Drains, and Airways Type Details Placement Removal Peripheral IV Placement Date: 03/23/24; Placed Outside of This Facility?: No; Size: 20 G; Orientation: Right; Location: Antecubital; Site Prep: Chlorhexidine; Local Anesthetic: None; Inserted By: Adela RANDLE; Insertion attempts: 1; Ultrasound-guided Placement?: No; Patient Tolerance: Tolerated well; Removal Date: 03/23/24; Removal Time: 1605; Removal Reason: Patient Discharged 03/23/24 0000 by Sahra Ventura RN 03/23/24 1605 by Lida Tay RN Supraglottic Airway Placement Date: 03/23/24; Placement Time: 1336; Airway Device: LMA; LMA Size: 4; Placed Outside of This Facility?: No; Placed By: SRNA; Style: (iGel); Insertion Attempts:1; Placement Verified By: Capnography, Chest Rise; Extubation Assessment: Suctioned, Alert, Atraumatic, Able to swallow; Removal Date: 03/23/24; Removal Time: 1412; Removal Person: DATABASE ADMINISTRATION PROJECT MANAGER; Removal Reason: End of Case 03/23/24 1336 by Amrit Low CRNA 03/23/24 1412 by Amrit Low CRNA Surgical/Incision 03/23/24; 1339; Surgical Wound; Vagina; External sutures, leticia-pad in place.; 03/23/24; 1604 03/23/24 1339 by Mckenzie Siu RN 03/23/24 1604 by Lida Tay RN documented in this encounter Social History Tobacco Use Types Packs/Day Years Used Date Smoking Tobacco: Never Smokeless Tobacco: Never Alcohol Use Standard Drinks/Week Comments Yes 0 (1 standard drink = 0.6 oz pur e alcohol) social Comments No Sex and Gender Information Value Date Recorded Sex Assigned at Not on file Legal Sex Female 2:06 PM CDT Gender Identity Not on file Sexual Orientation Not on file documented as of this encounter OR Notes * Anesthesia Postprocedure Evaluation - Manjinder Yusuf MD - 03/23/2024 2:37 PM CDT Anesthesia Post-op Note Datreion Deven Rivers Procedure(s): OPERATIVE HYSTEROSCOPY WITH INTRAUTERINE DEVICE REMOVAL, VAGINAL CYST REMOVAL (Uterus) Anesthesia type: general Vitals: 03/23/24 1415 BP: 123/87 Vitals: 03/23/24 1415 Pulse: 68 Vitals: 03/23/24 1415 Resp: 23 Vitals: 03/23/24 1415 Temp: 36.9 ??C Vitals: 03/23/24 1415 SpO2: 99% Patient Location: PACU Level of Consciousness: awake Pain Management: adequate analgesia Airway Patency: patent Respiratory Status: acceptable Cardiovascular Status: acceptable Post-Op Nausea: none Postoperative Hydration: euvolemic No notable events documented. * Anesthesia Preprocedure Evaluation - Jed Polanco MD - 03/21/2024 8:11 AM CDT Anesthesia ROS/MED History Reviewed: Patient summary , Nursing notes , ECG, Family history anesthesia, Anesthesia history , Medications , Labs , Images/Studies Pre-Anesthetic State: alert, awake and responds appropriately Pulmonary neg pulmonary ROS Cardiovascular neg cardio ROS Neuro/Psych (+) anxiety Substance Use (+) alcohol use GI/Hepatic/Renal (+) renal disease, (Renal Calculi) Endo/Other (+) obese Comments: Cervical mylopathy GENERAL COMMENTS Chart reviewed. Per phone interview, patient denies any SOB/CP with 2 FOS or recent changes in activity tolerance in past 6 months. Per phone interview, patient denies having a electric power line repairer or previous cardiac testing. Past Medical History: No date: Anxiety disorder, unspecified No date: IUD mechanical complication No date: Kidney stones Past Surgical History: No date: LITHOTRIPSY NPO Status: Physical Evaluation Airway Mallampati: II TM Distance: >3 FB Neck ROM: normal Dental No notable dental history Pulmonary Pulmonary exam normal Breath sounds clear to auscultation Cardiovascular Rhythm: regular Rate: normal Cardiovascular exam normal Other findings: Height 1.626 m (5' 4 ), weight 85.7 kg (189 lb), last menstrual period 03/12/2024. No results for input(s): WBC , RBC , HGB , HCT , PLT , NA , K , CL , CO2 , AGAP , BUN , CR , BUNCREATININ , GFRNON , GFR , GLU , CA in the last 72 hours. STOP-Bang Assessment: Do you snore loudly?: 0 Do you often feel tired or fatigued after your sleep?: 0 Has anyone ever observed you stop breathing in your sleep?: 0 Do you have or are you being treated for high blood pressure?: 0 Recent BMI (Calculated): 32.4 Is BMI greater than 35 kg/m2?: 0=No Age older than 50 years old?: 0=No Is your neck circumference greater than 17 inches (Male) or 16 inches (Female)?: 0 Gender - Male: 0=No STOP-Bang Total Score: 0 Anesthesia Plan ASA 2 Intravenous Induction Anesthesia type: general Plan for Airway: ETT and LMA Plan for Post-op Pain Plan: oral pain medication, IV analgesics and as per surgeon Discussed potential risks of General Anesthesia including but not limited to corneal abrasion, visual impairment or visual loss, mouth injury, dental damage, sore throat, hoarseness, esophageal injury, awareness under anesthesia, nerve injury due to positioning, aspiration, pneumonia, stroke, cardiac event, adverse drug reactions and . Informed Consent Anesthetic plan and risks discussed with patient of whom consent was obtained. . documented in this encounter Plan of Treatment Not on file documented as of this encounter Visit Diagnoses Not on filedocumented in this encounter Administered Medications Inactive Administered Medications - up to 3 most recent administrations Medication Order MAR Action Action Date Dose Rate Site clindamycin (CLEOCIN) IVPB 900 mg 900 mg, Intravenous, at 100 mL/hr, section leader and machine setter to O.R., 1 dose, First dose on Thu03/23/24 at 0845, Pre-OpIndications:IUD mechanical complication Given 03/23/2024 1:37 PM CDT 900 mg dexamethasone (DECADRON) injection Intravenous, PRN, Starting on Thu03/23/24 at 1339, Until Thu03/23/24 at 1412, Anesthesia Intra-Op Given 03/23/2024 1:39 PM CDT 8 mg famotidine (PF) (PEPCID) injection Intravenous, PRN, Starting on Thu03/23/24 at 1350, Until Thu03/23/24 at 1412, Anesthesia Intra-Op Given 03/23/2024 1:50 PM CDT 20 mg fentaNYL (SUBLIMAZE) injection Intravenous, PRN, Starting on Thu03/23/24 at 1334, Until Thu03/23/24 at 1412, Anesthesia Intra-Op Given 03/23/2024 1:34 PM CDT 50 mcg Given 03/23/2024 1:30 PM CDT 50 mcg gentamicin (GARAMYCIN) 430 mg in sodium chloride 0.9 % 110.75 mL IVPB 430 mg, Intravenous, at 110.8 mL/hr, Once, 1 dose, On Thu03/23/24 at 0930 New Bag 03/23/2024 1:40 PM CDT 430 mg ketorolac (TORADOL) injection Intravenous, PRN, Starting on Thu03/23/24 at 1352, Until Thu03/23/24 at 1412, Anesthesia Intra-Op Given 03/23/2024 1:52 PM CDT 30 mg lactated ringers infusion at 10 mL/hr, Intravenous, Continuous, Starting on Thu03/23/24 at 0845, Until Thu03/23/24 at 1820, Not to be given to patients with end stage renal disease or dialysis. Infuse at TKO rate, Pre-Op New Bag 03/23/2024 1:30 PM CDT lidocaine (PF) (XYLOCAINE) 2 % injection Intravenous, PRN, Starting on Thu03/23/24 at 1334, Until Thu03/23/24 at 1412, Anesthesia Intra-Op Given 03/23/2024 1:34 PM CDT 40 mg ondansetron (ZOFRAN) injection Intravenous, PRN, Starting on Thu03/23/24 at 1354, Until Thu03/23/24 at 1412, Anesthesia Intra-Op Given 03/23/2024 1:54 PM CDT 4 mg propofol (DIPRIVAN) IV bolus Intravenous, PRN, Starting on Thu03/23/24 at 1334, Until Thu03/23/24 at 1412, Anesthesia Intra-Op Given 03/23/2024 1:34 PM CDT 140 mg documented in this encounter Care Teams Inseam Leveler Relationship Specialty Start Date End Date Non-Staff, Provider PCP - General UNKNOWN PHYSICIAN SPECIALTY 03/23/24 documented as of this encounter
--- OUTSIDE RECORDS SUMMARY | 2024-09-25 11:56 | XMS_ITS | Encounter Summary ---
Author Organization [facility] Address [address] [place] [address]. [place] [address] Care Team Providers Care Elevated Work Platform Operator Name Role Phone Non-Staff, Provider Primary Care Provider Roddy galvan Encounter Details Date Type Department Care Team (Latest Contact Info) Description 03/23/2024 Travel Social History Tobacco Use Types Packs/Day [...] on file documented as of this encounter Plan of Treatment Not on file documented as of this encounter Visit Diagnoses Not on filedocumented in this encounter Care Teams Elevated Work Platform Operator Relationship Specialty Start Date End Date Non-Staff, Provider PCP - General UNKNOWN PHYSICIAN SPECIALTY 03/23/24 documented as of this encounter
--- OUTSIDE RECORDS SUMMARY | 2024-09-25 11:56 | XMS_ITS | Encounter Summary ---
Author Organization [facility] Address [address] [place] [address]. [place], [place] [address] [place] [address] Care Team Providers Care Journeyman Pipefitter Name Role Phone Non-Staff, Provider Primary Care Provider Roddy galvan Reason for Visit * Auth/Cert (Routine) Specialty Diagnoses / Procedures Referred By Norm benjamin Referred To Contact Diagnoses CERVICAL MYELOPATHY G95.9 Procedures HYSTEROSCOPY,RMV FB LAP.W/REMV.TUBES & OVARIES HYSTEROSCOPY WITH INTRAUTERINE DEVICE REMOVAL Alta Marc MD [address] [place] [id number] Phone: tel: fax: Referral ID Status Reason Start Date Expiration Date Visits Re quested Visits Authorized [id number] 1 1 Encounter Details Date Type Department Care Team (Latest Contact Info) Description 03/23/2024 8:24 AM CDT - 03/23/2024 4:15 PM T Hospital Encounter Health [place] [address] Alta Marc MD [address] [place] [id number] Discharge Disposition: Home or Self Care (Routine Discharge) Social History Tobacco Use Types Packs/Day Years [...] sent through Care Everywhere. * Doxycycline, ADULT (Bolivian) * Hydroxyzine, ADULT (Bolivian) * Oxycodone and Acetaminophen, ADULT (Bolivian) * General Anesthesia Discharge Instructions (Bolivian) documented in this encounter Medications at Time [...] daily for 10 days. 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 * OR PreOp - Claudia Whyte RN - 03/16/2024 1:19 PM CDT Can you climb 2 flights of stairs without severe SOB or chest pain? Yes Are you physically able to do the same things today as 6 months ago? Yes Have you had any heart testing? No Avg BP? 110/70's Do you have a fisher diver net? No Patient has been holding phentermine for [...] CBC W/DIFF AUTOMATED (03/23/2024 9:34 AM CDT) WBC 6.51 4.5 - 11.0 x10'3/uL 03/23/2024 10:03 AM CDT [facility] RBC 4.34 4.20 - 5.40 x10'6/uL 03/23/2024 10:03 AM CDT [facility] HGB 10.5(L) 12.0 - 16.0 G/DL 03/23/2024 10:03 AM CDT [facility] HCT 33.3(L) 38.0 - 48.0 % 03/23/2024 10:03 AM CDT [facility] MCV 76.7(L) 81.0 - 99.0 FL 03/23/2024 10:03 AM CDT [facility] MCH 24.2(L) 27.0 - 31.0 PG 03/23/2024 10:03 AM CDT [facility] MCHC 31.5(L) 32.0 - 36.0 G/DL 03/23/2024 10:03 AM CDT [facility] RDW 17.7(H) 11.5 - 14.5 % 03/23/2024 10:03 AM CDT [facility] PLT 453(H) 130 - 400 x10'3/uL 03/23/2024 10:03 AM CDT [facility] MPV 9.0(L) 9.3 - 12.2 FL 03/23/2024 10:03 AM CDT [facility] DIFFERENTIAL TYPE AUTOMATED DIFFERENTIAL 03/23/2024 10:03 AM T [facility] NEUTROPHILS % 58.3 % 03/23/2024 10:03 AM CDT [facility] LYMPHOCYTES % 26.3 % 03/23/2024 10:03 AM CDT [facility] MONOCYTES % 9.8 % 03/23/2024 10:03 AM CDT [facility] EOSINOPHILS 4.3 % 03/23/2024 10:03 AM CDT [facility] BASOPHILS 0.8 % 03/23/2024 10:03 AM CDT [facility] IMMATURE GRANS % 0.5 % 03/23/20 10:03 AM CDT [facility] ABS. NEUTROPHILS 3.80 1.80 - 7.70 x10'3/uL 03/23/2024 10:03 AM CDT [facility] ABS. LYMPHOCYTES 1.71 1.00 - 4.80 x10'3/uL 03/23/2024 10:03 AM CDT [facility] ABS. MONOCYTES 0.64 0.24 - 0.86 x10'3/uL 03/23/2024 10:03 AM CDT [facility] ABS. EOSINOPHILS 0.28 0.04 - 0.36 x10'3/uL 03/23/2024 10:03 AM CDT [facility] ABS. BASOPHILS 0.05 0.01 - 0.08 x10'3/uL 03/23/2024 10:03 AM CDT [facility] ABS. IMMATURE GRANULOCYTES 0.03 0.00 - 0.49 x10'3/uL 03/23/2024 10:03 AM CDT [facility] 03/23/2024 9:34 AM CDT Alta Marc MD LABORATORY Final Result [facility] [address] [place] [address], * TEST URINE (03/23/2024 8:40 AM CDT) URINE HCG TEST NEGATIVE NEGATIVE [facility] Comment:[id number] Internal Control: VALID VALID [facility] Comment:[id number] URINE SPECIMEN FROM URETHRA / Unknown 03/23/2024 8:40 AM CDT us Jed Polanco MD URINE ORDERABLES Final Resu lt [facility] [address] [address], * Pathology (03/23/2024 12:00 AM CDT) PATHOLOGY [facility] ? Department of Laboratory Medicine ?[address] ?[place] [address] ? , extension [phone] ? Pathology Report ? Surgical Pathology Report Name: ALYSHA JOLLEY L ?Specimen #: [id number] Age: 6 1990 (Age: 34) ?Location: [facility] Sex: F ?Procedure Date: 03/23/2024 Hospital #: [id number] ?Date Received: 03/24/2024 Date Reported: 03/25/2024 Provider: [...] interpretation, and sign out were performed at [facility], [address] [place] [address]. FINAL DIAGNOSIS: Vagina, cyst, excision: ? 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 Electronically Signed Out ? CALDERON BILLINGSLEY MD [facility] TISSUE VAGINAL STRUCTURE / Unknown 03/23/2024 1:58 PM CDT us Alta Marc MD PATHOLOGY/CYTOLOGY ORDERABLE S Final Result [facility] [address] [place] [address], [id number] documented in this encounter Visit Diagnoses Diagnosis IUD mechanical complication- Primary Mechanical complication due to intrauterine contraceptive device Status post hysteroscopy documented in this encounter Administered Medications Inactive Administered Medications - up to 3 most recent administrations Medication Order MAR Action Action Date Dose Rate Site fentaNYL (SUBLIMAZE) injection 25 mcg 25 [...] (COMPLETED) 900 mg, Intravenous, at 100 mL/hr, call out operator to O.R., 1 dose, First dose on Thu03/23/24 at 0845, Pre-Op 1337 (Given - Provid er: Amrit Low, WET INSPECTOR OPTICAL GLASS) gentamicin (GARAMYCIN) 430 mg in sodium chloride [...] Medication Order 03/21/2024 03/22/2024 03/23/2024 BUpivacaine-EPINEPHrine 0.25% -[id number] injection (CANCELED) As needed, Starting on Thu03/23/24 [...] Post-Op documented in this encounter Care Teams Journeyman Pipefitter Relationship Specialty Start Date End Date Non-Staff, Provider PCP - General UNKNOWN PHYSICIAN SPECIALTY 03/23/24 documented as of this encounter
--- OUTSIDE RECORDS SUMMARY | 2024-09-25 11:57 | XMS_ITS | Encounter Summary ---
Author Organization [facility] Address [address] [place] [address]. [place] [address] Care Team Providers Care Vendor Analyst Name Role Phone Unavailable Primary Care Provider Unavailabl e Encounter Details Date Type Department Care Team (Latest Contact Info) Description 03/16/2024 Travel Social History Tobacco Use Types Packs/Day [...]
--- OUTSIDE RECORDS SUMMARY | 2024-09-25 11:59 | XMS_ITS | Referral Summary ---
Author Organization [facility] Address [address] [place] [phone] Care Team Providers Care Automobile Tester Name Role Phone Citlaly Ramos DO Primary Care Provider [phone] Allergies Active Allergy Reactions Criticality Noted Date Comments Amoxicillin Hives Medium 10/14/2021 Amoxicillin-Pot Clavulanate Hives,Urticaria Medium Hydrocodone Rash Medium 07/04/2021 Hydrocodone-Acetaminophen Urticaria Medium 02/02/2019 Medications albuterol HFA (PROVENTIL HFA,VENTOLIN HFA,PROAIR HFA) 90 mcg/actuation inhaler INHALE 1-2 PUFFS EVERY 4-6 HOURS NEEDED AND DIRECTED. for asthma 4 Active ibuprofen (ADVIL,MOTRIN) 200 mg tab/cap Take 800 mg by mouth as needed 9 Active triamcinolone (KENALOG) 0.5 % ointment Apply topically 2 (two) times a day as needed 1 Active tamsulosin (FLOMAX) 0.4 mg extended release capsule Take 1 capsule (0.4 mg total) by mouth daily 30 capsule 2 Active oxybutynin (DITROPAN) 5 mg tablet Take 1 tablet (5 mg total) by mouth 3 (three) times a day 90 tablet 11 2 Active Active Problems No known active problems Social History Tobacco Use Types Packs/Day Years Used Date Smoking Tobacco: Every Day Cigarettes Cigars Smokeless Tobacco: Never Tobacco Cessation:Ready to Q uit: Yes; Counseling Given: Yes AUDIT-C Answer Date Recorded Q1: How often do you have a drink containing alc ohol? Monthly or less 10/14/2021 Q2: How many drinks containi ng alcohol do you have on a typical day when you are drinking? 1 or 2 10/14/2021 Q3: How often do you have si x or more drinks on one occasion? Never 10/14/2021 Personal Safety Answer Date Recorded Getting School Help Needed Not on file 11/01 Comments No Sex and Gender Information Value Date Recorded Sex Assigned at Not on file Legal Sex Female 1:00 AM PRINCIPAL SCIENTIST Gender Identity Not on file Sexual Orientation Not on file Last Filed Vital Signs Vital Sign Reading Time Taken Comments Blood Pressure 126/86 10/16/2021 12:40 PM PRINCIPAL SCIENTIST Pulse 82 10/16/2021 12:40 PM PRINCIPAL SCIENTIST Temperature 36.7 ??C (98.1 ??F) 10/21/2021 1:29 PM CS T Respiratory Rate 8 10/16/2021 12:40 PM PRINCIPAL SCIENTIST Oxygen Saturation 100% 10/16/2021 12:40 PM PRINCIPAL SCIENTIST Inhaled Oxygen Concentration - - Weight 90.7 kg (200 lb) 10/16/2021 10:29 AM PRINCIPAL SCIENTIST Height 162.6 cm (5' 4 ) 10/16/2021 10:29 AM PRINCIPAL SCIENTIST Body Mass Index 34.33 10/16/2021 10:29 AM PRINCIPAL SCIENTIST Plan of Treatment Not on file Medical Devices Explanted Type Area Knurling Machine Tender Device Identifier Shelf Expiration Date Model / Serial / Lot Ureteral Stent Explanted:Qty: 1 on 10/16/2021 by Tye Woods MD at [facility] Right: Urethra Other [employer] [id number] Universa 6fr 24cm Radiopaque Positioner Monofilament Tether - [id number] Implanted:Qty: 1 on 10/16/2021 by Tye Woods MD at [facility] Explanted:Qty: 1 on 10/21/2021 by Tye Woods MD Right: Urethra [employer] [id number] 07/22/2024 [id number] / / [id number] Procedures Procedure Name Priority Date/Time Associated Diagnosis Comments SERUM HEPATITIS C AB Routine 01/16/2014 5:14 AM CDT from Last 3 Months or Most Recently Relevant to Health Maintenance Results * Serum Hepatitis C ab (01/16/2014 5:14 AM CDT) HCV ab Negative NEG HISTORICAL RESULTS Serum 01/16/2014 5:14 AM CDT Narrative HISTORICAL RESULTS - 01/16/2014 8:51 AM CDT Interpretive Data If confirmation is required, call Laboratory Customer Service to request sample to be sent to [facility] for Hepatitis C Virus (HCV) RNA Detection and Quantitation by Real-Time Reverse Qm Consultant-PCR (RT-PCR). Current interpretive data was last revised on 2011 Aicha Bucio NP LAB BLOOD ORDERABLES Final Result HISTORICAL RESULTS from Last 3 Months or Most Recently Relevant to Health Maintenance [place] [address] [address] [facility] Care Teams Automobile Tester Relationship Specialty Start Date End Date Citlaly Ramos DO [address] [place] [id number] PCP - General Family Medicine 10/03/21
--- OUTSIDE RECORDS SUMMARY | 2024-09-25 11:59 | XMS_ITS | Clinical Summary ---
Author Organization Address [address] [place] [phone] Care Team Providers Care Runway Model Name Role Phone Citlaly Ramos DO Primary Care Provider [phone] Allergies Active Allergy Reactions Criticality Noted Date [...] Active Active Problems No known active problems Surgical History Surgery Date Site/Laterality Comments CYSTOSCOPY INSERTION / REMOVAL STENT / STONE Medical History Medical History Date Comments Asthma Depression Anxiety Family History Medical History Relation Name Comments Hypertension Maternal Grandmother Hypertension Mother Relation Name Status Comments Maternal Grandmother Alive Mother Alive Social History Tobacco Use Types Packs/Day Years [...] on file Legal Sex Female 1:00 AM PBX 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 Gender Identity Not on file Sexual Orientation Not on file Obstetrics History Last Filed Vital Signs Vital Sign Reading Time Taken Comments Blood Pressure 126/86 10/16/2021 12:40 PM PBX INSTALLER Pulse 82 10/16/2021 12:40 PM PBX INSTALLER Temperature 36.7 ??C (98.1 ??F) 10/21/2021 1:29 PM CS T Respiratory Rate 8 10/16/2021 12:40 PM PBX INSTALLER Oxygen Saturation 100% 10/16/2021 12:40 PM PBX INSTALLER Inhaled Oxygen Concentration - - Weight 90.7 kg (200 lb) 10/16/2021 10:29 AM PBX INSTALLER Height 162.6 cm (5' 4 ) 10/16/2021 10:29 AM PBX INSTALLER Body Mass Index 34.33 10/16/2021 10:29 AM PBX INSTALLER Plan of Treatment Health Maintenance Due Date Last Done Comments Cervical Cancer Screening 1992 Depression Screening 1992 Pneumococcal vaccine <65 (1 of 2 - PCV) 02/17/1998 Varicella Vaccines (1 of 2 - 13+ 2-dose series) 02/17/2005 Regular Well Visit/Exam 18-64 02/17/2010 Covid-19 Vaccine (2 - 2023-2 5 season) 2024 08/13/2021 Influenza Vaccine (#1) 2024 4, 09/07/2010, 07/16/2010 DTaP/Tdap/Td Vaccine (2 - Td or Tdap) 07/04/2024 07/04/2014 Hepatitis C Screening Completed 01/16/2014 HPV Vaccines Aged Out No longer eligi ble based on patient's age to complete this topic Medical Devices Explanted Type Area Boiler Welder Device Identifier Shelf Expiration Date Model / Serial / Lot Ureteral Stent Explanted:Qty: 1 on 10/16/2021 by Tye Woods MD at Right: Urethra Other [employer] [id number] Universa 6fr 24cm Radiopaque Positioner Monofilament Tether - [id number] Implanted:Qty: 1 on 10/16/2021 by Tye Woods MD at Explanted:Qty: 1 on 10/21/2021 by Tye Woods MD Right: Urethra [employer] [id number] 07/22/2024 [id number] / / [id number] Procedures Procedure Name Priority Date/Time Associated Diagnosis [...] to request sample to be sent to [facility] for Hepatitis C Virus (HCV) RNA Detection and Quantitation by Real-Time Reverse Roof Plumber-PCR (RT-PCR). Current interpretive data was last revised on 2011 Aicha Bucio NP LAB BLOOD ORDERABLES Final Result HISTORICAL RESULTS from Last 3 Months or Most Recently Relevant to Health Maintenance Insurance [facility] [facility] [employer]TER [facility] Care Teams Runway Model Relationship Specialty Start Date End Date Citlaly Ramos DO [address] [place] [phone] PCP - General Family Medicine 10/03/21
--- OUTSIDE RECORDS SUMMARY | 2024-09-25 11:59 | XMS_ITS | Encounter Summary ---
Author Organization [facility] Address [address] [place] [id number] Care Team Providers Care Lead Massage Therapist Name Role Phone Citlaly Ramos DO Primary Care Provider [phone] Encounter Details Date Type Department Care Team (Latest Contact Info) Description 10/16/2021 11:03 AM THERAPEUTIC RIDING INSTRUCTOR - 10/16/2021 11:59 PM THERAPEUTIC RIDING INSTRUCTOR Hospital Encounter [facility] [id number] [place], [place] [id number] Discharge Disposition: Discharge to home or self care Social History Tobacco Use Types Packs/Day Years Used Date Smoking Tobacco: Every Day Cigarettes Cigars Smokeless Tobacco: Never AUDIT-C Answer Date Recorded Q1: How often do you have a drink containing alc ohol? Monthly or less 10/14/2021 Q2: How many drinks containi ng alcohol do you have on a typical day when you are drinking? 1 or 2 10/14/2021 Q3: How often do you have si x or more drinks on one occasion? Never 10/14/2021 Comments No Sex and Gender Information Value Date Recorded Sex Assigned at Not on file Legal Sex Female 1:00 AM THERAPEUTIC RIDING INSTRUCTOR Gender Identity Not on file Sexual Orientation Not on file documented as of this encounter Medications at Time of Discharge albuterol HFA (PROVENTIL HFA,VENTOLIN HFA,PROAIR HFA) 90 mcg/actuation inhaler INHALE 1-2 PUFFS EVERY 4-6 HOURS NEEDED AND DIRECTED. for asthma 04/24/2014 ibuprofen (ADVIL,MOTRIN) 200 mg tab/cap Take 800 mg by mouth as needed 03/15/2019 oxybutynin (DITROPAN) 5 mg tablet Take 1 tablet (5 mg total) by mouth 3 (three) times a day 90 tablet 11 10/16/2021 tamsulosin (FLOMAX) 0.4 mg extended release capsule Take 1 capsule (0.4 mg total) by mouth daily 30 capsule 10/16/2021 triamcinolone (KENALOG) 0.5 % ointment Apply topically 2 (two) times a day as needed 02/21/2021 oxyCODONE-acetam inophen (PERCOCET) 5-325 mg per tabletIndication s:Pain Take 1-2 tablets by mouth every 4 (four) hours as needed for pain Do not exceed 8 tablets per day. 8 tablet 10/14/2021 2 oxyCODONE-acetam inophen (PERCOCET) 5-325 mg per tabletIndication s:Pain Take 1-2 tablets by mouth every 4 (four) hours as needed for pain Do not exceed 8 tablets per day. 20 tablet 10/16/2021 2 documented as of this encounter Discharge Disposition Disposition Code Departure Means Destination Discharge to home or self care documented in this encounter Plan of Treatment Not on file documented as of this encounter Procedures Procedure Name Priority Date/Time Associated Diagnosis Comments RETROGRADE PYELOGRAM IP Routine 10/16/2021 12:18 PM THERAPEUTIC RIDING INSTRUCTOR FL FLUOROSCOPY < 1 HOUR IP Routine 10/16/2021 12:18 PM THERAPEUTIC RIDING INSTRUCTOR documented in this encounter Results * FL Fluoroscopy < 1 Hour (10/16/2021 12:18 PM THERAPEUTIC RIDING INSTRUCTOR) Narrative RAD_PACS_[facility] - 10/16/2021 12:19 PM THERAPEUTIC RIDING INSTRUCTOR The images from this study are not interpreted by Radiology. ??Please refer to the physician's procedure / OR operative note. us Tye Woods MD IMG FLUOROSCOPY PROCEDU RES Final Result RAD_PACS_[facility] * FL Retrograde Pyelogram (10/16/2021 12:18 PM THERAPEUTIC RIDING INSTRUCTOR) Anatomical Region Laterality Modality Body N/A Radio Fluoroscop y 10/16/2021 12:3 6 PM THERAPEUTIC RIDING INSTRUCTOR Impressions 10/16/2021 12:36 PM THERAPEUTIC RIDING INSTRUCTOR RIGHT-SIDED STENT PLACEMENT FOR HYDRONEPHROSIS Electronically signed by: Nelson Bonilla M.D. [facility] 10/16/2021 12:36 PM THERAPEUTIC RIDING INSTRUCTOR EXAMINATION: FL RETROGRADE PYELOGRAM dated 10/16/2021 11:05 AM HISTORY: Hydronephrosis, horseshoe kidney FINDINGS: Financial Officer radiograph normal. Cannulation right ureter with a ureteroscope. Intrauterine contraceptive device in the pelvis. Contrast injection into the right kidney demonstrates mild caliectasis. Placement of a right-sided stent Procedure Note Nelson Bonilla MD - 10/16/2021 EXAMINATION: FL RETROGRADE PYELOGRAM dated 10/16/2021 11:05 AM HISTORY: Hydronephrosis, horseshoe kidney FINDINGS: Financial Officer radiograph normal. Cannulation right ureter with a ureteroscope. Intrauterine contraceptive device in the pelvis. Contrast injection into the right kidney demonstrates mild caliectasis. Placement of a right-sided stent IMPRESSION: RIGHT-SIDED STENT PLACEMENT FOR HYDRONEPHROSIS Electronically signed by: Nelson Bonilla M.D. Tye Woods MD IMG FLUOROSCOPY PROCEDU RES Final Result documented in this encounter Visit Diagnoses Not on filedocumented in this encounter Care Teams Lead Massage Therapist Relationship Specialty Start Date End Date Rachel Citlaly [address] [place] [id number] PCP - General Family Medicine 10/03/21 documented as of this encounter
--- OUTSIDE RECORDS SUMMARY | 2024-09-25 11:59 | XMS_ITS | Data Portability ---
Author Organization [employer] , [facility] Address [address] [place] [address] Assessment No assessment recorded. Plan of Treatment Reminders Order Date Submit Date Provider Last Modified By Organization Details Last Modified Time Details Appointments None record ed. Lab unlist ed lab - STD screen ing ([facility]) 2022 023 [facility], [address] [place], [address], 3 12:44:42 CT + NG DNA, PCR, unspec ified specim en 2022 023 [facility], [address] [place], [address], 3 16:22:58 HPV E6+E7 mRNA, qualit ative PCR, cervix 2022 023 [facility], [address] [place], [address], 3 15:20:58 unlist ed lab - Pap reflex hold 2022 023 [facility], [address] [place], [address], 3 16:22:58 pap, LB 2022 023 [facility], [address] [facility], [place], [address], 3 13:37:51 beta-H CG, quanti tative , serum or plasma 2023 024 [facility], [address] [place], [address], 4 17:21:41 CBC w/ auto diff 2023 024 MELDRIM [facility], [address] [place], [address], 4 18:36:13 pregna ncy test, urine 2023 024 [facility], [address] [place], [address], 4 19:59:13 beta-H CG, quanti tative , serum or plasma 2023 024 [facility], [address] [place], [address], 4 12:38:49 CBC w/ auto diff 2023 024 MELDRIM [facility], [address] [place], [address], 4 02:21:20 Referral psychi atrist referr al 2022 023 [facility], [address] [place] [address], [place], [address], 3 09:50:24 Procedures None record ed. Surgeries None record ed. Imaging None record ed. Medication Orders buspir one 7.5 mg tablet 2022 023 nereida [id number], [address], [place], [address], 4 15:31:18 naprox en 500 mg tablet 2023 024 [facility][id number], [address], [place], [address], 11:53:04 doxycy granados hyclat e 100 mg capsul e 2023 024 [facility][id number], [address], [place], [address], 16:23:48 Patient TargetsNo targets recorded. Patient Instructions Encounter Date Encounter Id Patient Instructions Last Modified By Organization Details Last Modified Time 02/09/2023 [id number] Patient Health Questionnaire-9* kbritsch Not available 02/09/2023 13:36:59 AVERY-7 anxiety scale* kbritsch Not available 02/11/2023 12:09:39 03/11/2024 [id number] IUD removal: car e instructions Not available 03/11/2024 16:04:05 Reason for Referral Psychiatrist Referral for De pression screening Referring Physician: Candice Givens, [employer], Encounter Date: 02/09/2023 Results Created Date Observation Date Name Description Value Unit Range Abnormal Flag Note LastModifiedBy Organization Detail LastModifiedTime 06/08/2024 CBC (INCL UDES DIFF/ PLT) white blood cell count 6.0 thous and/u L 3.8-10 .8 normal Not Available [facility] [address], [address], 06/08/2024 02:21:17 06/08/2024 CBC (INCL UDES DIFF/ PLT) red blood cell count 4.47 sada on/uL 3.80-5 .10 normal Not Available [facility] [address], [address], 06/08/2024 02:21:17 06/08/2024 CBC (INCL UDES DIFF/ PLT) hemoglobin 10.8 g/dL 11.7-1 5.5 low Not Available [facility] [address], [address], 06/08/2024 02:21:17 06/08/2024 CBC (INCL UDES DIFF/ PLT) hematocrit 36.8 % 35.0-4 5.0 normal Not Available [facility] [address], [address], 06/08/2024 02:21:17 06/08/2024 CBC (INCL UDES DIFF/ PLT) MCV 82.3 fL 80.0-1 00.0 normal Not Available [facility] [address], [address], 06/08/2024 02:21:17 06/08/2024 CBC (INCL UDES DIFF/ PLT) MCH 24.2 pg 27.0-3 3.0 low Not Available [facility] [address], [address], 06/08/2024 02:21:17 06/08/2024 CBC (INCL UDES DIFF/ PLT) MCHC 29.3 g/dL 32.0-3 6.0 low For adult s, a sligh t decre ase in the calcu lated MCHC value (in the range of 30 to 32 g/dL) is most likel y not clini shira signi hugo t; chio er, it shoul d be inter prete d with cauti on in [facility] n with other red cell esdras eters and the patie nt's clini ricardo condi tion. Not Available [facility] [address], [address], 06/08/2024 02:21:17 06/08/2024 CBC (INCL UDES DIFF/ PLT) RDW 17.1 % 11.0-1 5.0 high Not Available [facility] [address], [address], 06/08/2024 02:21:17 06/08/2024 CBC (INCL UDES DIFF/ PLT) platelet count 438 thous and/u L 140-40 0 high Not Available [facility] [address], [address], 06/08/2024 02:21:17 06/08/2024 CBC (INCL UDES DIFF/ PLT) MPV 10.1 fL 7.5-12 .5 normal Not Available [address], [address], 06/08/2024 02:21:17 06/08/2024 CBC (INCL UDES DIFF/ PLT) absolute neutrophils 2754 cells /uL 1500-7 800 normal Not Available [address], [address], 06/08/2024 02:21:17 06/08/2024 CBC (INCL UDES DIFF/ PLT) absolute lymphocytes 2040 cells /uL 850-39 00 normal Not Available [address], [address], 06/08/2024 02:21:17 06/08/2024 CBC (INCL UDES DIFF/ PLT) absolute monocytes 708 cells /uL 200-95 0 normal Not Available [address], [address], 06/08/2024 02:21:17 06/08/2024 CBC (INCL UDES DIFF/ PLT) absolute eosinophils 420 cells /uL 15-500 normal Not Available [address], [address], 06/08/2024 02:21:17 06/08/2024 CBC (INCL UDES DIFF/ PLT) absolute basophils 78 cells /uL 0-200 normal Not Available [address], [address], 06/08/2024 02:21:17 06/08/2024 CBC (INCL UDES DIFF/ PLT) neutrophils 45.9 % normal Not Available [address], [address], 06/08/2024 02:21:17 06/08/2024 CBC (INCL UDES DIFF/ PLT) lymphocytes 34.0 % normal Not Available [facility] [address] [place], [address], 06/08/2024 02:21:17 06/08/2024 CBC (INCL UDES DIFF/ PLT) monocytes 11.8 % normal Not Available [facility] [address] [place], [address], 06/08/2024 02:21:17 06/08/2024 CBC (INCL UDES DIFF/ PLT) eosinophils 7.0 % normal Not Available [facility] [address] [place], [address], 06/08/2024 02:21:17 06/08/2024 CBC (INCL UDES DIFF/ PLT) basophils 1.3 % normal Not Available [facility] [address] [place], [address], 06/08/2024 02:21:17 02/10/20 23 02/10/2023 STD SCREE JOAQUIN ([facility] ) hep BS Ag Non-Re active non-re active normal Not Available [address], [address], 02/10/2023 12:44:41 02/10/20 23 02/10/2023 STD SCREE JOAQUIN ([facility] ) hep C Ab Non-Re active non-re active normal Not Available [address], [address], 02/10/2023 12:44:41 02/10/20 23 02/10/2023 STD SCREE JOAQUIN ([facility] ) HIV 1/2 Ag/Ab Non-Re active non-re active normal Not Available [facility] [address] [place] [address], [address], 02/10/2023 12:44:41 02/10/20 23 02/10/2023 STD SCREE JOAQUIN ([facility] ) syphilis Ab Non-Re active non-re active normal Not Available [facility] [address] [place] [address], [address], 02/10/2023 12:44:41 02/10/20 23 02/10/2023 CT/NG chlamydia trachomatis CT neg negati ve normal This repor t is inten ded for us in clini ricardo monit oring and manag ement of patie nts. It is not inten ded for use in medic al-le gal appli catio n. Not Available [address], [address], 02/10/2023 15:20:58 02/10/20 23 02/10/2023 CT/NG neisseria gonorrhoeae GC neg negati ve normal This repor t is inten ded for us in clini ricardo monit oring and manag ement of patie nts. It is not inten ded for use in medic al-le gal appli catio n. Not Available [address], [address], 02/10/2023 15:20:58 02/10/20 23 02/10/2023 HPV HIGH RISK HPV high risk Negati ve negati ve normal The HPV High Risk assay is inten ded for use as co-te sting with cytol ogy and not as a subst itute for regul ar cervi ricardo cytol ogy scree joaquin. This assay is not inten ded for use as a scree joaquin devic e for women under age 30 with pauly l cervi ricardo cytol ogy. Not Available [address], [address], 02/10/2023 15:20:58 02/10/20 23 02/12/2023 THINP REP TIS PAP clinical information: normal None given Not Available [facility] [address] [place], [address], 02/12/2023 13:37:51 02/10/20 23 02/12/2023 THINP REP TIS PAP LMP: normal None given Not Available [facility] [address] [place], [address], 02/12/2023 13:37:51 02/10/20 23 02/12/2023 THINP REP TIS PAP prev. Pap: normal None given Not Available [address], [address], 02/12/2023 13:37:51 02/10/20 23 02/12/2023 THINP REP TIS PAP prev. BX: normal None given Not Available [address], [address], 02/12/2023 13:37:51 02/10/20 23 02/12/2023 THINP REP TIS PAP source: normal None given Not Available [address], [address], 02/12/2023 13:37:51 02/10/20 23 02/12/2023 THINP REP TIS PAP statement of adequacy: normal Satis facto ry for evalu ation . Endoc ervic al/tr ansfo rmati on zone compo nent prese nt. Age and/o r menst rual statu s not provi ded Not Available [address], [address], 02/12/2023 13:37:51 02/10/20 23 02/12/2023 THINP REP TIS PAP interpretati on/result: normal Negat roland for intra epith elial amry palm or zeus guerra . Not Available [address], [address], 02/12/2023 13:37:51 02/10/20 23 02/12/2023 THINP REP TIS PAP comment: normal This Pap test has been evalu ated with compu ter ashlie merna techn ology . Not Available [address], [address], 02/12/2023 13:37:51 02/10/20 23 02/12/2023 THINP REP TIS PAP cytotechnolo gist: normal BES, CT( CP) CT scree joaquin locat ion: [place] [address] [place] [address] Not Available [facility] [place] [address] [place], [address], 02/12/2023 13:37:51 02/10/20 23 02/12/2023 THINP REP TIS PAP review cytotechnolo gist: normal KMS, CT( CP) CT Scree joaquin locat ion: [place] [address] [place] [address] Not Available [facility] [address] [address] [address], [place], [address], 02/12/2023 13:37:51 02/10/20 23 02/12/2023 THINP REP TIS PAP comment EXPLA NATOR Y NOTE: The Pap is a scree joaquin test for cervi ricardo cance r. It is not a diagn ostic test and is subje ct to false negat roland and false posit roland resul ts. It is most relia ble when a satis facto ry sampl e, regul sukumar obtai sukumar, is submi tted with relev ant clini ricardo findi ngs and histo ry, and when the Pap resul t is evalu ated along with histo saroj and curre nt clini ricardo infor matio n. Not Available [facility] [address] [address] [address], [place], [address], 02/12/2023 13:37:51 03/23/20 24 03/23/2024 CBC WITH DIFF WBC 6.51 x10'3 /uL 4.5-11 .0 Not Available [facility] (Lab) [address] [place], [address], 03/23/2024 11:03:32 03/23/20 24 03/23/2024 CBC WITH DIFF RBC 4.34 x10'6 /uL 4.20-5 .40 Not Available [facility] (Lab) [address] [place], [address], 03/23/2024 11:03:32 03/23/20 24 03/23/2024 CBC WITH DIFF hemoglobin 10.5 g/dL 12.0-1 6.0 low Not Available [facility] (Lab) [address] [place], [address], 03/23/2024 11:03:32 03/23/20 24 03/23/2024 CBC WITH DIFF hematocrit 33.3 % 38.0-4 8.0 low Not Available [facility] (Lab) [address] [place], [address], 03/23/2024 11:03:32 03/23/20 24 03/23/2024 CBC WITH DIFF MCV 76.7 fL 81.0-9 9.0 low Not Available [facility] (Lab) [address] [place], [address], 03/23/2024 11:03:32 03/23/20 24 03/23/2024 CBC WITH DIFF MCH 24.2 pg 27.0-3 1.0 low Not Available [facility] (Lab) [address] [place], [address], 03/23/2024 11:03:32 03/23/20 24 03/23/2024 CBC WITH DIFF MCHC 31.5 g/dL 32.0-3 6.0 low Not Available [facility] (Lab) [address] [place], [address], 03/23/2024 11:03:32 03/23/20 24 03/23/2024 CBC WITH DIFF RDW 17.7 % 11.5-[address] [facility] (Lab) [address] [place], [address], 03/23/2024 11:03:32 03/23/20 24 03/23/2024 CBC WITH DIFF platelet count 453 x10'3 /uL 130-40 [address] [facility] [address] [place], [address], 03/23/2024 11:03:32 03/23/20 24 03/23/2024 CBC WITH DIFF MPV 9.0 fL 9.3-12 .2 low Not Available [facility] (Lab) [address] [place], [address], 03/23/2024 11:03:32 03/23/20 24 03/23/2024 CBC WITH DIFF diff type AUTOMA MERNA DIFFER ENTIAL Not Available [facility] (Lab) [address] [place], [address], 03/23/2024 11:03:32 03/23/20 24 03/23/2024 CBC WITH DIFF neutrophils 58.3 % Not Available [facility] (Lab) [address] [place], [address], 03/23/2024 11:03:32 03/23/20 24 03/23/2024 CBC WITH DIFF lymphocytes 26.3 % Not Available [facility] (Lab) [address] [place], [address], 03/23/2024 11:03:32 03/23/20 24 03/23/2024 CBC WITH DIFF monocytes 9.8 % Not Available [facility] (Lab) [address] [place], [address], 03/23/2024 11:03:32 03/23/20 24 03/23/2024 CBC WITH DIFF eosinophils 4.3 % Not Available [facility] (Lab) [address] [place], [address], 03/23/2024 11:03:32 03/23/20 24 03/23/2024 CBC WITH DIFF basophils 0.8 % Not Available [facility] (Lab) [address] [place], [address], 03/23/2024 11:03:32 03/23/20 24 03/23/2024 CBC WITH DIFF immature granulocytes 0.5 % Not Available [facility] (Lab) [address] [place], [address], 03/23/2024 11:03:32 03/23/20 24 03/23/2024 CBC WITH DIFF abs. neutrophils 3.80 x10'3 /uL 1.80-7 .70 Not Available [facility] (Lab) [address] [place], [address], 03/23/2024 11:03:32 03/23/20 24 03/23/2024 CBC WITH DIFF abs. lymphocytes 1.71 x10'3 /uL 1.00-4 .80 Not Available [facility] (Lab) [address] [place], [address], 03/23/2024 11:03:32 03/23/20 24 03/23/2024 CBC WITH DIFF abs. monocytes 0.64 x10'3 /uL 0.24-0 .86 Not Available [facility] (Lab) [address] [place], [address], 03/23/2024 11:03:32 03/23/20 24 03/23/2024 CBC WITH DIFF abs. eosinophils 0.28 x10'3 /uL 0.04-0 .36 Not Available [facility] (Lab) [address] [place], [address], 03/23/2024 11:03:32 03/23/20 24 03/23/2024 CBC WITH DIFF abs. basophils 0.05 x10'3 /uL 0.01-0 .08 Not Available [facility] ([facility]) [address] [place], [address], 03/23/2024 11:03:32 03/23/20 24 03/23/2024 CBC WITH DIFF abs. immature grans 0.03 x10'3 /uL 0.00-0 .49 Not Available [facility] (Lab) [address] [place], [address], 03/23/2024 11:03:32 03/23/20 24 03/25/2024 SJS SURGI RICARDO PATHO LOGY path report [facility] halima Dep[facility] tment of Labor atory Medic ine [address] [place] [address] Telep merary: , exten osito [id number] 07 Patho logy Repor t Surgi ricardo Patho logy Repor t Name: BRANDON BENJAMIN, DATRE ION L Speci men #: [id number] Age: [id number] (Age: 34) Locat ion: SEO[facility] S Sex: F Proce dure Date: 2023 Hospi halima #: [id number] Date Recei laith: 2023 Date Repor merna: 2023 Provi james: PATEL Palm MD [facility] e: Vagin al cyst Clini ricardo Histo ry: Cervi ricardo myelo cristina . Gross Descr iptio n: Recei laith in forma valentina, label ed with a patie nt label and as vagi nal cyst is a 1.0 x 1.0 x 0.8 cm cysti c struc ture cover ed with pink- shelby mucos a. The base is ident ified and inked black . The cyst is bisec merna to revea l thick shelby mater ial. The speci men is entir joann submi tted in casse tte 1. Gross exami natio n (when appli cable ), inter preta tion, and sign out were perfo rmed at [facility], [address] [place] [address], [place] [address] . FINAL DIAGN OSIS: Vagin a, cyst, excis ion: -Jarod gn Mulle diomedes cyst with focal squam ous metap lasia . Lisa ctron icall y Coral d Out PATALLYN DOOLEY R ARNULFO Nice MD 719_1 [address] [phone] Not Available [facility] (Lab) [address], [place], [address], 03/25/2024 11:22:21 05/31/20 24 06/01/2024 CBC (INCL UDES DIFF/ PLT) WBC 7.4 thous and/u L 4.0 - 9.8 normal Not Available [address], [address], 06/01/2024 18:36:13 05/31/2006/01/2024 CBC (INCL UDES DIFF/ PLT) RBC 4.2 sada on/uL 3.9 - 4.9 normal Not Available [address], [address], 06/01/2024 18:36:13 05/31/20 24 06/01/2024 CBC (INCL UDES DIFF/ PLT) hemoglobin 10.2 g/dL 11.8 - 14.8 low Not Available [employer] [address] [place] [address], [address], 06/01/2024 18:36:13 05/31/2006/01/2024 CBC (INCL UDES DIFF/ PLT) hematocrit 31.9 % 35.5 - 44.0 low Not Available [address], [address], 06/01/2024 18:36:13 05/31/20 24 06/01/2024 CBC (INCL UDES DIFF/ PLT) MCV 75.2 fL 82.0 - 99.0 low Not Available [employer] [address] [place] [address], [address], 06/01/2024 18:36:13 05/31/2006/01/2024 CBC (INCL UDES DIFF/ PLT) MCH 24.1 pg 27.2 - 32.6 low Not Available [facility] [address] [place] [address], [address], 06/01/2024 18:36:13 05/31/2006/01/2024 CBC (INCL UDES DIFF/ PLT) MCHC 32.0 g/dL 31.5 - 35.5 normal Not Available [address], [address], 06/01/2024 18:36:13 05/31/2006/01/2024 CBC (INCL UDES DIFF/ PLT) RDW-CV 18.7 % 11.5 - 14.5 high Not Available [facility] [address] [place] [address], [address], 06/01/2024 18:36:13 05/31/2006/01/2024 CBC (INCL UDES DIFF/ PLT) platelet 427 thous and/u L 140 - 350 high Not Available [facility] [address] [place] [address], [address], 06/01/2024 18:36:13 05/31/2006/01/2024 CBC (INCL UDES DIFF/ PLT) MPV 10.5 fL 9.3 - 12.4 normal Not Available [address], [address], 06/01/2024 18:36:13 05/31/2006/01/2024 CBC (INCL UDES DIFF/ PLT) absolute neutrophil 3.62 thous and/u L 1.90 - 7.00 normal Not Available [address], [address], 06/01/2024 18:36:13 05/31/20 24 06/01/2024 CBC (INCL UDES DIFF/ PLT) absolute lymphocyte 2.53 thous and/u L 0.70 - 4.50 normal Not Available [address], [address], 06/01/2024 18:36:13 05/31/2006/01/2024 CBC (INCL UDES DIFF/ PLT) absolute monocyte 0.83 thous and/u L 0.10 - 1.30 normal Not Available [address], [address], 06/01/2024 18:36:13 05/31/2006/01/2024 CBC (INCL UDES DIFF/ PLT) absolute eosinophil 0.32 thous and/u L <0.70 normal Not Available [address], [address], 06/01/2024 18:36:13 05/31/2006/01/2024 CBC (INCL UDES DIFF/ PLT) absolute basophil 0.05 thous and/u L <0.20 normal Not Available [address], [address], 06/01/2024 18:36:13 05/31/2006/01/2024 CBC (INCL UDES DIFF/ PLT) absolute immature granulocyte 0.03 thous and/u L <0.03 normal Not Available [address], [address], 06/01/2024 18:36:13 05/31/20 24 06/02/2024 HCG, TOTAL , QUANT HCG, total, quant 31 mIU/m L <5 high Refer ence Range s are for femal es aged 18 years - Adult Nonpr egnan t or preme nopau silvino <5 Postm enopa usal <10 Value s from diffe rent assay metho ds may vary. The use of this assay to monit or or to diagn ose patie nts with cance r or any other condi tion unrel ated to pregn janet has not been valid ated by the D[employer] actur er of this assay . Not Available [facility] [address] [place] [address], [address], 06/02/2024 17:21:41 05/31/20 24 05/31/2024 pregn janet test, urine HCG positi ve Not Available [facility] [address] [place], [address], 05/31/2024 09:27:00 06/07/20 24 06/09/2024 HCG, TOTAL , QUANT HCG, total, quant 12 mIU/m L <5 high Refer ence Range s are for femal es aged 18 years - Adult Nonpr egnan t or preme nopau silvino <5 Postm enopa usal <10 Value s from diffe rent assay metho ds may vary. The use of this assay to monit or or to diagn ose patie nts with cance r or any other condi tion unrel ated to pregn janet has not been valid ated by the Dahuf actur er of this assay . Not Available [facility] [address] [place] [address], [address], 06/09/2024 12:38:49 Result Notes None recorded. Procedures Surgical History Date Name Laterality Status Provider Name and Address Organization Details Recorded Time Suture/Staple removal cancelled Susana Hillman [facility] 04/08/2024 12:14:07 removal of intrauterine contraceptive device completed Jennifer DUMAS - [employer] [facility] 05/31/2024 09:19:41 024 IUD Removal completed DIANE BRITO, [employer] [address] [place], [address], [facility] [employer] [facility] 03/11/2024 16:02:14 Imaging Results None recorded. Procedure Notes None recorded. Medical Equipment None Reported. Allergies Allergen ID Allergen Name Allergen Category Reaction Reaction Severity Criticality Documentation Date Start Date Code Code System Note Provider Name and Address Organization Details Recorded Time [id number] 2824e Product containin g penicilli n and antibioti c (product) medicatio n Not available Not available Not available 02/09/2023 38096 05 SNOMED Not Available Not Available Not Available [id number] 2824e house dust allergeni c extract environme nt,medica tion Not available Not available Not available 02/09/2023 85499 9 RxNorm Not Available Not Available Not Available [id number] 2824e cat dander environme nt Not available Not available Not available 02/09/2023 74604 UNK Not Available Not Available Not Available [id number] 2824e Canis lupus familiari s extract environme nt Not available Not available Not available 02/09/2023 38786 4 RxNorm Not Available Not Available Not Available [id number] 2824e mold extract environme nt Not available Not available Not available 02/09/2023 87840 8 RxNorm Not Available Not Available Not Available [id number] 2824e Augmentin medicatio n Not available Not available Not available 03/11/2024 18881 2 RxNorm Not Available Not Available Not Available Medications Name Sig Start Date Stop Date Status Note LastModified by Organization Details LastModified Time cyclobenzap rine 10 mg tablet TAKE 1 TABLET EACH NIGHT NEEDED FOR LOW BACK PAIN 03/11 completed Not Available Not Available Not Available doxycycline hyclate 100 mg capsule TAKE 1 CAPSULE BY MOUTH TWICE A DAY FOR 10 DAYS active Not Available Not Available No t Available clindamycin HCl 300 mg capsule TAKE 1 CAPSULE BY MOUTH THREE TIMES A DAY FOR 7 DAYS 03/11 completed Not Available Not Available Not Available triamcinolo ne acetonide 0.5 % topical cream APPLY A THIN LAYER TO AFFECTED AREA TWICE DAILY NEEDED 03/11 completed Not Available Not Available Not Available azithromyci n 250 mg tablet TAKE ORAL TABS DIRECTED ON PACKAGE. 03/11 completed Not Available Not Available Not Available ibuprofen 800 mg tablet TAKE 1 ORAL TABLET UP TO EVERY 6 HOURS NEEDED FOR PAIN/FEVE R/SWELLIN G. TAKE WITH FOOD. 05/31 completed Not Available Not Available Not Available fluconazole 150 mg tablet TAKE 1 TABLET AT END OF ANTIBIOTI CS AND 1 TABLET 72 HOURS LATER 03/11 completed Not Available Not Available Not Available benzonatate 200 mg capsule TAKE 1 ORAL CAPSULE UP TO 3 TIMES A DAY NEEDED FOR COUGH. 03/11 completed Not Available Not Available Not Available fluconazole 200 mg tablet TAKE 1 TABLET BY MOUTH NOW THEN REPEAT IN 72 HOURS IF NEEDED 05/31 completed Not Available Not Available Not Available triamcinolo ne acetonide 0.5 % topical ointment APPLY TO AFFECTED AREA TWICE A DAY 03/11 completed Not Available Not Available Not Available metronidazo le 500 mg tablet TAKE 1 TAB BY MOUTH TWICE A DAY X7 DAYS. DO NOT DRINK ALCOHOL WHILE ON THIS MED AND 24 HOURS AFTER 02/09 completed Not Available Not Available Not Available phentermine 37.5 mg tablet TAKE 1 TABLET BY MOUTH EVERY DAY 05/31 completed Not Available Not Available Not Available tramadol 50 mg tablet TAKE 1 TABLET BY MOUTH EVERY 4-8 HOURS NEEDED FOR PAIN 03/11 completed Not Available Not Available Not Available oxycodone-a cetaminophe n 5 mg-325 mg tablet TAKE 1 TABLET BY MOUTH EVERY 6 HOURS NEEDED FOR ACUTE PAIN, LESS THAN 3 DAYS SUPPLY 05/31 completed Not Available Not Available Not Available alprazolam 0.5 mg tablet TAKE 1 TABLET BY MOUTH TWICE A DAY NEEDED 05/31 completed Not Available Not Available Not Available tamsulosin 0.4 mg capsule TAKE 1 CAPSULE BY MOUTH EVERY DAY 03/11 completed Not Available Not Available Not Available cephalexin 500 mg capsule TAKE ONE CAPSULE BY MOUTH EVERY 8 HOURS FOR 7 DAYS 03/11 completed Not Available Not Available Not Available cyanocobala min (vit B-12) 1,000 mcg/mL injection solution INJECT 1 INTRAMUSC ULARLY EVERY 3 WEEKS active Not Available Not Available No t Available ferrous sulfate 325 mg (65 mg iron) tablet Take 1 tablet every day by oral route. active Not Available Not Available No t Available BD Luer-Robert Syringe 3 mL 25 gauge x 1 INJECT WITH ONE SYRING INTRAMUSC ULARLY EVERY THREE WEEKS 03/11 completed Not Available Not Available Not Available buspirone 7.5 mg tablet TAKE 1 TABLET BY MOUTH TWICE A DAY WITH MEALS 03/11 completed Not Available Not Available Not Available ibuprofen 600 mg tablet TAKE ONE TABLET BY MOUTH EVERY 6 HOURS NEEDED FOR PAIN 03/11 completed Not Available Not Available Not Available methylpredn isolone 4 mg tablets in a dose pack TAKE 6 TABLETS ON DAY 1 DIRECTED ON PACKAGE AND DECREASE BY 1 TAB EACH DAY FOR A TOTAL OF 6 DAYS 03/11 completed Not Available Not Available Not Available albuterol sulfate HFA 90 mcg/actuati on aerosol inhaler INHALE 2-4 PUFFS NEEDED EVERY 4-6 HOURS FOR COUGH AND SHORTNESS OF BREATH 03/11 completed Not Available Not Available Not Available oxybutynin chloride 5 mg tablet TAKE 1 TABLET BY MOUTH THREE TIMES DAILY 03/11 completed Not Available Not Available Not Available ondansetron 4 mg disintegrat ing tablet LET1 TABLET DISSOLVE UNDER TOUNGE THEN SWALLOW EVERY 6 HOURS NEEDED FOR NAUSEA. active Not Available Not Available No t Available fluticasone propionate 50 mcg/actuati on nasal spray,suspe nsion TAKE 1 SPRAY IN EACH NOSTRIL DAILY FOR 14 DAYS. active Not Available Not Available No t Available doxycycline hyclate 100 mg tablet TAKE 1 TABLET BY MOUTH TWICE A DAY FOR 10 DAYS 05/31 completed Not Available Not Available Not Available naproxen 500 mg tablet TAKE 1 TABLET BY MOUTH TWICE A DAY NEEDED FOR MODERATE PAIN active Not Available Not Available No t Available hydroxyzine pamoate 25 mg capsule PLEASE SEE ATTACHED FOR DETAILED DIRECTION S active Not Available Not Available No t Available neomycin-po lymyxin-hyd rocort 3.5 mg-10,000 unit/mL-1 % ear drops,susp PLACE 2 DROPS IN BOTH EARS 4 TIMES DAILY FOR 7 DAYS 03/11 completed Not Available Not Available Not Available escitalopra m 5 mg tablet TAKE 1 TABLET BY MOUTH ONCE DAILY active Not Available Not Available No t Available nitrofurant oin monohydrate /macrocryst als 100 mg capsule TAKE 1 CAPSULE BY MOUTH TWICE A DAY 02/09 completed Not Available Not Available Not Available BD PrecisionGl colette 25 gauge x 1 needle INJECT WITH ONE NEEDLE INTRAMUSC ULARLY EVERY 3 WEEKS 03/11 completed Not Available Not Available Not Available cholecalcif diego (vitamin D3) 50 mcg (2,000 unit) capsule TAKE 1 CAPSULE BY MOUTH ONCE DAILY active Not Available Not Available No t Available Vitals Date Recorded Body weight Provider Name an d Address Organization Details Last Updated DateTime 02/09/2023 40032.05 g Laura [employer] [facility] IV 02/09/2023 12:09:41 Date Recorded Body temperature Provider Name a nd Address Organization Details Last Updated DateTime 02/09/2023 96.8 [degF] Laura [employer] [facility] IV 02/09/2023 12:10:12 Date Recorded Body mass index (BMI) Body height Provider Name and Address Organization Details Last Updated DateTime 02/09/2023 33.2 kg/m2 162.56 cm [facility] 02/09/2023 12:11:20 Date Recorded Body weight Provider Name an d Address Organization Details Last Updated DateTime 03/11/2024 57673.96 g Jenniferstefani [email or web address] [facility] [employer] IV 03/11/2024 15:29:19 Date Recorded Body mass index (BMI) Body height Provider Name and Address Organization Details Last Updated DateTime 03/11/2024 32.4 kg/m2 162.56 cm Jennifer [employer] [place] [employer] IV 03/11/2024 15:30:05 Date Recorded Body height Provider Name an d Address Organization Details Last Updated DateTime 05/31/2024 162.56 [facility] [employer] [facility] 05/31/2024 09:14:27 Date Recorded Body mass index (BMI) Body weight Provider Name and Address Organization Details Last Updated DateTime 05/31/2024 33.1 kg/m2 17071.33 g Jennifer [employer] [facility] IV 05/31/2024 09:14:37 Date Recorded Body height Provider Name an d Address Organization Details Last Updated DateTime 06/06/2024 162.56 cm Kaylee [facility] [employer] [facility] IV 06/06/2024 15:56:45 Date Recorded Body mass index (BMI) Body weight Provider Name and Address Organization Details Last Updated DateTime 06/06/2024 32.8 kg/m2 03576.14 g [facility] 06/06/2024 15:58:48 Date Recorded Systolic blood pressure Diastolic blood pressure Provider Name and Address Organization Details Last Updated DateTime 02/09/2023 108 mm[Hg] 76 mm[Hg] Laura Ca [facility] [employer] [facility] IV 02/09/2023 12:16:31 Date Recorded Systolic blood pressure Diastolic blood pressure Provider Name and Address Organization Details Last Updated DateTime 03/11/2024 100 mm[Hg] 72 mm[Hg] Jennifer Blueelvisjuan carlos [facility] IV 03/11/2024 15:35:27 Date Recorded Systolic blood pressure Diastolic blood pressure Provider Name and Address Organization Details Last Updated DateTime 05/31/2024 106 mm[Hg] 54 mm[Hg] Jennifer Spears [facility] [employer] IV 05/31/2024 09:26:43 Date Recorded Systolic blood pressure Diastolic blood pressure Provider Name and Address Organization Details Last Updated DateTime 06/06/2024 120 mm[Hg] 60 mm[Hg] Kaylee [facility] [employer] IV 06/06/2024 15:58:43 Social History Question Answer Notes LastModified by Organizat ion Details LastModified Time Tobacco Smoking Status Former Smoker Laura Ca [facility] [employer] [facility] IV 02/09/2023 11:51:45 What Is Your Level Of Alcohol Consumption? Occasional [email or web address] Information not available 02/09/2023 How Many Years Have You Consumed Alcohol? 7 Information not available 02/09/2023 Are You Blind Or Do You Have Difficulty Seeing? No Information not available 03/11/2024 Are You Deaf Or Do You Have Serious Difficulty Hearing? No Information not available 03/11/2024 What Type Of Diet Are You Following? REGULAR [email or web address] Information not available 02/09/2023 Do You Or Have You Ever Used E-cigarettes Or Vape? Current User Of Electronic Cigarettes [email or web address] Information not available 02/09/2023 How Many Children Do You Have? 2 Information not available 03/11/2024 What Is Your Relationship Status? Single [email or web address] Information not available 02/09/2023 Are You Sexually Active? Yes [email or web address] Information not available 02/09/2023 Do You Use Any Illicit Or Recreational Drugs? No [email or web address] Information not available 03/11/2024 Sex: Unknown Functional Status Question Answer Note LastModified by Organizat ion Details LastModified Time What is your exercise level? Occasional [email or web address] Information not available 02/09/2023 Mental Status None recorded. Family History Relationship Description Onset Age of this Age Resolved Age Notes LastModified by Organization Details LastModified Time Mother Depressive disorder [email or web address] Not available 2022 11:51:36 Mother Hypertensive disorder [email or web address] Not available 2022 11:51:36 Maternal Grandmother Depressive disorder Not available 2022 11:51:36 Maternal Grandmother Hypertensive disorder [email or web address] Not available 2022 11:51:36 Medical History Condition Response Anxiety Disorder Y Frequent Urinary Tract infections Y Headaches/migraines Y Depression Y Asthma N Gynecological History Statement/Question Response Date of Last Colonoscopy Flow Heavy Frequency of Cycle (Q days) 28 Date of LMP 05/06/2024 Most Recent Bone Density Date of Last Pap Smear Duration of Flow (days) 8 Most Recent Mammogram Current Control Method None Age at Menarche 16 Obstetrics History GPAL:G 2 P 2 0 0 2 Type Value Full Term 2 Living 2 Total 2 Past Encounters Encounter ID Performer Location Encounter Start Date Encounter Closed Date Diagnosis/Indication Diagnosis SNOMED-CT Code Diagnosis ICD10 Code Diagnosis Note [id number] SHOSHANA Westbrook [facility] [address] [place] [address] 02/09/2023 11:46:23 02/10/2023 08:58:56 Gynecologic examination 78976380 Z01.411 Pt educated on ACOG and ASCCP guidelines for breast, ovarian, and cervical cancer screenings . Exam WNL. Pt signed records release for prior [facility] [employer] records. Pt offered referral to PCP; pt declines. Pt encouraged to consider referral to PCP by 37 y/o d/t fam h/o CHTN. Plan for F/U PRN or for next WWE. Screening for malignant neoplasm of cervix 592373108 Z12.4 ASCCP guidelines reviewed with pt. Pap collected and sent. Further POC pending lab result review. Pt states understand ing of POC. Depression screening 171 566062 Z13.31 PHQ9: 17. Pt educated on abnormal scoring, and discussed recommenda tion for referral to psych for further management . Pt encouraged to consider non-pharma cologic interventi ons of mindfulnes s and counseling referral and also the option to initiate pharmacolo gic tx options. Pt discussed using medication to control both anxiety and depression . Pt has not tolerated Wellbutrin XL in the past, and prefers to only tx anxiety at this time. Pt believes her depression is a result of all of the anxiety sx she is having. Psych referral initiated. Further POC with specialty provider. Pt educated on when to notify HCP/go to ER. Pt states understand ing of POC. Mixed anxi ety and depressive disorder 954836876 F41.8 GAD7: 19. Pt offered non-pharma cologic interventi ons; pt declined. Pt is only interested in tx anxiety with medication at this time. Pt educated on medication options, and discussed starting with Buspar BID. Pt advised will need to be on for 4-6 weeks to see full benefit and discussed avoidance of abrupt cessation. Pt amenable to POC. Rx sent. Further management to be done by psych provider. Referral sent. Pt states understand ing of POC. Venereal d isease screening 106658186 Z11.3 Pt educated on importance of condom use for protection against STD's. Samples collected and sent. Further POC pending lab result review. Pt states understand ing of POC. Intrauteri ne device check 194112283 Z30.431 Pt educated on risks Vs benefits of use, reviewed symptoms of Paragard use. Dosing schedule reviewed. Pt educated on bleeding profile of device, expulsion sx, and when to notify HCP/go to ER. Plan to F/U PRN or at next WWE. [id number] [facility] [address] [place] [address] 03/11/2024 15:00:59 03/14/2024 09:28:22 Removal of intrauterine contraceptive device 7247497166 Z30.432 Pt is here for Paragard IUD removal. Paragard has been in for 9 years.?-- IUD unable to be removed due to meeting resistance . Consulted with Dr. Christie. Patient will be scheduled with Dr. Christie for hysterosco py to remove IUD.-- Pt educated on OTC NSAID therapy for 24-48 hours PRN following procedure. Bleeding profile reviewed.- - Pt aware fertility will return quickly.-- Discussed Contracept ion Options.-- Patient is not interested in any other control at this time or once IUD removed. [id number] [facility] [address] [place] [address] 05/31/2024 08:59:05 05/31/2024 18:39:11 Unprotected sexual intercourse 5760322 Z72.51 +UPT in office today 05/31/2024 Threatened miscarriage 19367352 O20.0 LMP 05/06/2024 per patientSta rted spotting 05/25/2024 and then a couple days later she started crampingYe sterday 05/31/2024 she started bleeding heavily, denies saturating pad in less than 1 hour or passing clots bigger than egg.Will do serial HCG to determine if levels are dropping or risingRx sent for NaproxenRe viewed bleeding precaution s, when to call HCP/go to ER. Voices understand ingPOC pending lab results. Pt is agreeable to POC. Greater than thirty minutes spent with patient in consultati on (>50% face-to-fa ce). Patient labs and notes were reviewed. Patient questions were answered. Additional patient care was coordinate d. [id number] [facility] [address] [place] [address] 06/06/2024 15:21:46 06/07/2024 12:51:15 Missed miscarriage 28497631 O02.1 Quant level on 05/31 was 31, will repeat quant today along with CBC. Patient states is still spotting occasional ly but also has noticed a foul odor with the spotting. Dr Rowe at nurses station and advised to treat with Doxycyclin e. Will RX Doxycyclin e. Education given to take with food to prevent GI upset. Advised patient that if symptoms do not improve with antibiotic s to RTC for TVUS. Health Concerns Section Related Observation LastModified by Organization Detai ls LastModified Time None Recorded Concern Status LastModified by Organization Details LastModified Time None Recorded Advance Directives Directive None Recorded Payers Encounter Date Sequence Insurance Name Policy Number Policy Potter Covered Member ID Ptoter Member ID Guarantor Name 02/09/2023 1 [employer] [place] 2020 (MEDICAID REPLACEMENT - HMO) da'Treion Rivers [id number] Datreion Rivers 03/11/2024 1 [employer] [place]MEDICAID REPLACEMENT - HMO) da'Treion Rivers [id number] Datreion Rivers 05/31/2024 1 [employer] [place]MEDICAID REPLACEMENT - HMO) da'Treion Rivers [id number] Datreion Rivers 06/06/2024 1 [employer] [place]MED[place]ID REPLAC[place] - [place]MO) da'Treion Rivers [id number] Datreion Rivers Notes Date Note Type Note Provider Name and Address Organization Details Recorded Time 02/09/2023 text/html Pt presents for WWE. Pt is a transfer of care from [facility] providers. Pt states she is doing well. Pt reports having regular monthly cycles that are not heavy or painful. Pt has bleeding for 8 days, and typically changing pads every 2-3 hours. Pt is currently using Paragard IUD for contraception. Pt notes a h/o abnormal paps and feelings of short temperedness and having more bad days than good. Pt states she discussed this with prior [facility] [employer] provider, and was encouraged to consider changing to hormonal BCM option. Pt requests STD screening via pap and serum testing. Pt has no other concerns. SHOSHANA Westbrook [address] [facility], [place], [address], [facility] [employer] 02/09/2023 22:30:33 03/11/2024 text/html Patient is here to get her paraguard removed. Pt is aware it is not due to come out yet, but patient is concerned that it will get stuck. She is aware fertility returns immediately and is not interested in any other contraception at this time. PABLO HESS [address] [place], [address], [facility] [employer] 03/11/2024 16:04:08 05/31/2024 text/html Patient had IUD removed in March surgically. patient states she has normal periods since. However she bled longer this time and is still bleeding. LMP 05/06/24. Patient went to [facility] and told them she thought she was but it would be to early to detect in Urine. They did a UPT anyway which was negative. Patient went home and waited 4 days and repeated the UPT at home and it had a faint line. Several days later the line was bright. The patient continues to bleed and cramp today. P[facility]LO HESS [address] [facility], [place], [address], [facility] [employer] IV 05/31/2024 13:49:43 06/06/2024 text/html Kofi lewis is here today.Pt weighs 191lbsPts B/P 120/60Pt is here for miscarriage from last visit, is still spotting occasionally. Is having foul odor with spotting. Pain is well controlled with Naproxen given at last visit. [facility]ESS [address] [place], [address], [employer] IV 06/06/2024 16:43:04 OBGyn Episode Ob Episode Information Episode Created Date Number of Fetuses Patient Bloodtype Patient rh Status Prepregnancy Weight lbs Domestic Partner Domestic Partner Phone Father Name In Mold Coater Status 02/10/20 23 1 CLOSED Fetus Data First Name Last Name Admitted to NICU Weight (g) Sex Living Outcome Pediatric Complications Fetus ID Race Codes Race Delivery Type F Full Term [id number] Michele Calculation Initial Michele Date Initial Exam Date Initial Exam Provider Initial Ultrasound Date Last Menstrual Period Date Ultra Sound Weeks Gestation 0 Eighteen To Twenty Week Michele Update Ultra Sound Date Fundal Height At Umbil Quickening Date Ultra Sound Latest Weeks Gestation Final Michele Confirmed By Final Michele Confirmed Date Final Michele Date Ultra Sound Latest Days Gestation 0 0 Menstrual History Last Menstrual Date Menses Monthly On Bcp Conception Prior Menses Frequency Hcg Plus Date Menarche Onset Age Delivery Information Delivery Date Delivery Type Labor Anesthesia Weeks Gestation Incision Type Labor Labor Length Hrs Delivered By Post Complications Tubal Sterilization Discharge Date Comments 4 Discharge Information Feeding Method Contraceptive Method Maternal HG B and HCT Levels Ob Episode Information Episode Created Date Number of Fetuses Patient Bloodtype Patient rh Status Prepregnancy Weight lbs Domestic Partner Domestic Partner Phone Father Name In Mold Coater Status 02/10/20 23 1 CLOSED Fetus Data First Name Last Name Admitted to NICU Weight (g) Sex Living Outcome Pediatric Complications Fetus ID Race Codes Race Delivery Type F Full Term [id number] Michele Calculation Initial Michele Date Initial Exam Date Initial Exam Provider Initial Ultrasound Date Last Menstrual Period Date Ultra Sound Weeks Gestation 0 Eighteen To Twenty Week Michele Update Ultra Sound Date Fundal Height At Umbil Quickening Date Ultra Sound Latest Weeks Gestation Final Michele Confirmed By Final Michele Confirmed Date Final Michele Date Ultra Sound Latest Days Gestation 0 0 Menstrual History Last Menstrual Date Menses Monthly On Bcp Conception Prior Menses Frequency Hcg Plus Date Menarche Onset Age Delivery Information Delivery Date Delivery Type Labor Anesthesia Weeks Gestation Incision Type Labor Labor Length Hrs Delivered By Post Complications Tubal Sterilization Discharge Date Comments 1 Discharge Information Feeding Method Contraceptive Method Maternal HG B and HCT Levels
--- OUTSIDE RECORDS SUMMARY | 2024-09-25 11:59 | XMS_ITS | Encounter Summary ---
Author Organization [facility] Address [address] [place] [address] Phone Care Team Providers Care Driver Messenger Name Role Phone Citlaly Ramos DO Primary Care Provider [phone] Reason for Visit * Reason Comments Cyst Stent removal * Consultation (Routine) - Closed Specialty Diagnoses / Procedures Referred By Norm benjamin Referred To Contact Urology Diagnoses Hydronephrosis, unspecified hydronephrosis type Kidney stones Referral, Self [facility] (All Locations) Referral ID Status Reason Start Date Expiration Date V isits Requested Visits Authorized [id number] Closed Specialty Services Required 09/27/2021 10/27/2022 99 [phone] Encounter Details Date Type Department Care Team (Late st Contact Info) Description 10/21/2021 1:20 PM TRAINING PROGRAM 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) - [facility] Urology [id number] [place] [phone] Tye Woods MD [address] [place] [address] Kidney stone (Primary Dx) Social History Tobacco Use Types Packs/Day Years [...] on file Legal Sex Female 1:00 AM TRAINING PROGRAM DEVELOPER Gender Identity Not on file Sexual Orientation Not on file documented as of this encounter Last Filed Vital Signs Vital Sign Reading Time Taken Comments Blood Pressure - - Pulse - - Temperature 36.7 ??C (98.1 ??F) 10/21/2021 1:29 PM CS T Respiratory Rate - - Oxygen Saturation - - Inhaled Oxygen Concentration - - Weight - - Height - - Body Mass Index - - documented in this encounter Progress Notes * Tye Woods MD - 10/21/2021 1:20 PM CST The patient is status post right URS for stones in the HSK on 10/16/2021. Serum creatinine and calcium levels are wnl. The patient has been well since surgery, denies fever. The patient presents for stent removal. Antibiotics were administered within one hour of the procedure start. The patient was prepped with Betadine in the usual sterile fashion. Lidocaine jelly was instilled into the urethra. The cystoscope was introduced and the urethra and bladder were inspected; both appeared normal. The ureteral stent was identified, grasped and removed. The stent was intact. Assessment/Plan. The patient has undergone successful stent removal. Recommend analgesics PRN pain after stent removal, notify our office or go to the Emergency Room for pain uncontrolled with oral analgesics, fever, nausea or vomiting. Follow up after completion of 24 hour urine test and follow up in 6 weeks to discuss stone prevention. NING PROGRAM DEVELOPER * Candice Talavera CMA - 10/21/2021 1:20 PM CST History and Indication for Cysto Stent removal The skin was prepped with betadine. Supervising Physician: Dr. Chuck Talavera CMA III NING PROGRAM DEVELOPER documented in this encounter Plan of Treatment Not on file documented as of this encounter Visit Diagnoses Diagnosis Kidney stone- Primary Calculus of kidney documented in this encounter Care Teams Driver Messenger Relationship Specialty Start Date End Date Citlaly Ramos [address] [place] [id number] PCP - General Family Medicine 10/03/21 documented as of this encounter
--- OUTSIDE RECORDS SUMMARY | 2024-09-25 12:00 | XMS_ITS | Encounter Summary ---
Author Organization [facility] Healthcare Address [address] [place] [address] Care Team Providers Care Rehabilitation Therapy Technician Name Role Phone Citlaly Ramos DO Primary Care Provider [phone] Encounter Details Date Type Department Care Team (Late st Contact Info) Description 10/16/2021 11:30 AM APPELLATE CONFEREE - 10/16/2021 12:30 PM [facility] Surgery [facility] Operating Room [address] [place] [address] Tye Woods MD [address] [place], [place] [id number] CYSTOSCOPY CHANGE URETERAL STENT; RETROGRADE, URETEROSCOPY, Surgery Details Date/Time Status Location OR Service Patient Class Case Cl ass Case Type Trauma Case? 10/16/2021 11:30 AM Posted OPERATING ROOM OR Urology Outpatient Elective Panel 1 Procedure LRB Anes Op Region Wound Class Comments CYSTOSCOPY CHANGE URETERAL STENT; RETROGRADE, URETEROSCOPY, Right General Urethra Class II - Clean Contaminated PYELOGRAM - RETROGRADE Right General Urethra Cl ass II - Clean Contaminated URETEROSCOPY Right General Urethra Class II - C lean Contaminated Surgeon Surgeon Role Service Panel Tye Woods MD Primary Urology 1 Trang Jara MD Resident - Assisting Urology 1 documented in this encounter Social History Tobacco [...] on file Legal Sex Female 1:00 AM APPELLATE CONFEREE Gender Identity Not on file Sexual Orientation Not on file documented as of this encounter Last Filed Vital Signs Vital Sign Reading Time Taken Comments Blood Pressure 112/72 10/16/2021 12:25 PM APPELLATE CONFEREE Pulse 75 10/16/2021 12:30 PM APPELLATE CONFEREE Temperature 36.5 ??C (97.7 ??F) 10/16/2021 12:[address] Respiratory Rate 16 10/16/2021 12:30 PM APPELLATE CONFEREE Oxygen Saturation 99% 10/16/2021 12:30 PM APPELLATE CONFEREE Inhaled Oxygen Concentration - - Weight 90.7 kg (200 lb) 10/16/2021 10:29 AM APPELLATE CONFEREE Height 162.6 cm (5' 4 ) 10/16/2021 10:29 AM APPELLATE CONFEREE Body Mass Index 34.33 10/16/2021 10:29 AM APPELLATE CONFEREE documented in this encounter Discharge Instructions * Discharge Instructions* Jocy Rodriguez RN - 10/16/2021 1:39 PM APPELLATE CONFEREE NOTE: You have a ureteral stent in place. This is a small plastic tube that helps drain the urine from your kidney into your bladder. This is not meant to remain permanently in your kidney; you MUST returnto your urologist for removal/exchange of the stent as instructed. If you have any questions or conc erns, please contact your urologist for further instruction. Normal symptoms you may experience while your stents are in place: - Blood in urine, may be light pink to darker (red wine-colored) - Dysuria- burning with urination - Urgency- the feeling/sensation you have to go - Frequency - going to the restroom more often than normal - Spasms of the ureter or bladder Stent Pain/Bladder Spasms: You may have some pain due to the procedure itself, or due to ureteral stents that may have been placed during your procedure; this is normal. Sometimes ureteral stents may cause your bladder to spasm. This may feel like pain or pressure in your bladder, or like a constant urge to urinate or you may leak urine. New medications: - Acetaminophen and ibuprofen as needed for pain; take this scheduled for the next 72 hours, then afterwards as needed - Docusate/miralax as needed for constipation, available [id number] - Phenazopyridine as needed for pain with urination - Tamsulosin for stent pain - Oxybutynin as needed for bladder spasms; common side effects include dry mouth, constipation, blurry vision, or drowsiness Pain Control: - Start by applying ice packs or heating pads and using over the counter medications such as acetaminophen (Tylenol) or ibuprofen (Advil or Motrin) unless otherwise specified by your doctor. - As you recover, your pain will decrease and you will need less pain medication. You should only take pain medication if you are in pain. You should have been prescribed a medication for stent pain/bladder spasms. If you did not receive this prescription and are having these symptoms, please call the Urology office. Diet: [place] diet: At first eat a bland diet; avoiding foods that are high in fiber, have a lot of spices, or are highin fat. You can begin slowly eating these foods when you are feeling better. Be sure to drink plenty of fluids to ensure adequate hydration and overall better stent function. Activity: - Heavy activity and/or strenuous lifting may cause some blood in your urine; this should stop within 24 hours. Call if you see large clots in your urine or are unable to urinate. - Do NOT drive or operate machinery if you are taking narcotic pain medicine. - You may take showers and bathe. - Walking is encouraged. Climbing stairs is OK. Follow up: Follow up with your urologist on Thursday for stent removal. To schedule this appointment, or if you have any questions or concerns, please call the urology office at . Contact your doctor if: - You have a fever higher than 101 F (38.3 C). - You have nausea, vomiting or diarrhea. - Your pain medicine is not helping your pain. - You feel dizzy, very tired or like you may faint. - You have large blood clots in your urine. (Small amounts of blood-tinged urine and a few small clots are normal, especially after physical activity.) - You have continuous leakage of urine that is not normal for you. Thursday through Thursday, 8 AM to 5:00 PM: call [phone] and ask for a member of your doctor's team. For urgent matters after 5:00 PM during the week or on weekends or holidays, call [phone] and ask to have the Urology Legal Support Assistant Physician paged for you. FOLLOW UP CALLS You may get a couple of follow-up phone calls from us over the next 2 days. For your information, our number may come up as unknown or a random number. If our surgical flow allows, we will attempt tomake a phone call the same day of surgery if you were discharged prior to 3pm. Regardless, we will call you the next day after surgery to follow up with you on pain control and see if you have any questions or concerns. If we are unable to reach you, we will leave a voice message if that is an option and then attempt to reach you again the following day. If we are still unable to reach you on that second day after surgery, we will stop the process of follow up calls. Please reach out to your surgeon if you have any questions or concerns. We want you to be able to say your care was EXCELLENT! If it was not, please let us know! Good and Great are not enough for us, we strive for EXCELLENCE! LLATE CONFEREE * Attachments The following attachments cannot be sent through Care Everywhere. * General Anesthesia (Discharge Care) (Mosotho) * Ureteral Stent Placement (Discharge Care) (Mosotho) * Ureteroscopy (Discharge Care) (Mosotho) * Oxybutynin (By mouth) (Mosotho) * Tamsulosin (By mouth) (Mosotho) documented in this encounter Medications at Time [...] 10/16/2021 2 documented as of this encounter Ordered Prescriptions Prescription Sig Dispense Quantity Refills Last Filled Start Date End Date oxybutynin (DITROPAN) 5 mg tablet Take 1 tablet (5 mg total) by mouth 3 (three) times a day 90 tablet 11 10/16/2021 tamsulosin (FLOMAX) 0.4 mg extended release capsule Take 1 capsule (0.4 mg total) by mouth daily 30 capsule 10/16/2021 oxyCODONE-acetamin ophen (PERCOCET) 5-325 mg per tabletIndications: Pain Take 1-2 tablets by mouth every 4 (four) hours as needed for pain Do not exceed 8 tablets per day. 20 tablet 10/16/2021 2 documented in this encounter Discharge Disposition Disposition Code Departure Means Destination Discharge to home or self care documented in this encounter H&P Notes * Tye Woods MD - 10/16/2021 10:23 AM CST I have reviewed the H&P, examined the patient, and endorse the findings as written. Plan of Care : Based on the above findings, I consider Yevgeniyreshasha Rivers to be an acceptable riskfor : Procedure(s): CYSTOSCOPY / ureteroscopy / right URETERAL STENT exchange/ laser litho/ 60 min LLATE CONFEREE Source Note - Tye Woods MD - 10/14/2021 8:10 AM APPELLATE CONFEREE Urology History and Physical HPI: Jumana Rivers is a 31 y.o. 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 History of right renal stones in 2018 and in January of last year. Had ESWL both times. Last one with Dr. Zamora at [facility] in January2021 and has a ureteral stent still present since. Apparently insurance was not taken by previous pr ovider. Currently has right flank pain radiating to groin. Takes pain meds prn. No fever or chills. Gross hematuria present. No family history of stones. Past Medical History: Diagnosis Date ??? Asthma No past surgical history on file. Social History Tobacco Use ??? Smoking status: Current Every Day Smoker ??? Smokeless tobacco: Never Used Substance Use Topics ??? Alcohol use: Not on file No family history on file. (Not in a hospital admission) Allergies Allergen Reactions ??? Amoxicillin-Pot Clavulanate Review of Systems Constitutional: Negative for chills/rigors, fatigue and fever. HEENT: Negative for vision loss. Negative for nasal congestion and sore throat. Respiratory: Negative for cough, dyspnea and wheezing. Cardiovascular: Negative for chest pain, edema Gastrointestinal: Negative for abdominal pain, blood in stool and change in bowel habits. Genitourinary: Negative for dysuria, frequent urination, hematuria and flank pain present. Metabolic/Endocrine: Negative for cold intolerance, polydipsia, weight gain and weight loss. Neuro/Psychiatric: Negative for dizziness, headache, lightheadedness and seizures. Dermatologic: Negative for rash, skin lesion and urticaria. Musculoskeletal: Negative for bone/joint symptoms. Hematology: Negative for bleeding, easy bruising and thromboembolic events. Immunology: Negative for fever. Objective: Vitals: There were no vitals taken for this visit. Physical exam: General: does not appear in acute distress; no pain present HEENT: Head: normocephalic/atraumatic Eyes: no discharge noted; (R,L) extraocular movements are intact; visual field normal Ears: (R,L) hearing grossly normal Nose/Mouth/Throat: mucous membranes moist Neck: neck inspection is normal; neck ROM normal Respiratory: has normal respiratory effort; lungs clear to auscultation Cardiac: normal heart rate present; regular rhythm present Vascular: (R,L) normal radial pulse Gastrointestinal: abdominal appearance is normal; abdomen soft; no abdominal distention; no hernia.Tenderness right cva and lower abdomen Extremities: (R,L) pink and warm; no edema Musculoskeletal: normal range of motion present Neurology: patient is alert; cranial nerves II - XII intact Mood: has normal mood and affect Lab/Radiology/Diagnostic Review: Reviewed. US KIDNEYS/BLADDER (RETROPERITONEAL COMPLETE) Anatomical Region Laterality Modality Abdomen -- Ultrasound Narrative Performed by [facility] RADIOLOGY RENAL ULTRASOUND HISTORY: Horseshoe kidney and right [...] Ja Jimenez on 09/24/2021 at 4:57 PM Reviewed above images .. Results for orders placed or performed in visit on 10/03/21 Urine culture Urine, clean voided Specimen: Urine, clean voided Result Value Ref Range Report Final Report: Growth indicative of contamination with periurethral belle. Please submit a new specimen with special attention given to the collection process and to prompt transport to the laboratory. Organism GROWTH INDICATES CONTAM WITH PERIURETHRAL BELLE. CT images from today reviewed by me: has HSK with 2 lower pole renal stones (5- 6mm each) and ureteral stent in place, with no obvious encrustation. Normal left kidney Assessment and Plan: History of HSK with right renal stones and has a retained ureteral stent since January of last year. Treated at [facility] before. Has flank pain. Urine culture negative. Discussed management options including right ureteroscopic laser lithotripsy and ureteral stent exchange. ESWL also discussed including PCNL. Complications of URS explained including uti, sepsis, hematuria, stent complications, ureteral stricture or perforation, unable to retrieve all of stones. Needs covid test. Tye Woods MD Urology Division [facility] Office [phone] 10/14/2021 8:56 AM . LLATE CONFEREE documented in this encounter Miscellaneous Notes * Op Note - Tye Woods MD - 10/16/2021 11:32 AM CST Operative Report DATE OF SURGERY : 10/16/2021 SURGEON: Tye Woods MD SURGICAL TEAM: Surgeon(s) and Role: * Tye Woods MD - Primary * Trang Jara MD - Resident - Assisting ANESTHESIA: General PREOPERATIVE DIAGNOSIS: Pre-op Diagnosis * Kidney stone [N20.0], horse shoe kidney - retained ureteral stent right side POSTOPERATIVE DIAGNOSIS: Post-op Diagnosis * Kidney stone [N20.0] same as above PROCEDURE: CYSTOSCOPY CHANGE URETERAL STENT; RETROGRADE, URETEROSCOPY, (R), PYELOGRAM - RETROGRADE (R), URETEROSCOPY (R) INDICATION FOR PROCEDURE: Patient gives history of ESWL at [facility] and ureteral stenting over 6 months ago, CT scan showed 2 small stones and stent in place. She was here for removal of stent and stones extraction. Alternate treatment options discussed. Risks and complications including uti, sepsis, stent complications, hematuria explained including ureteral perforation or stricture. OPERATIVE FINDINGS: Stent removed intact without problem Stone small fragments 1mm (too small to basket) lower pole. Edema UPJ 6fr x 24cm right ureteral stent in PROCEDURE DETAILS: Patient seen in the preoperative holding area had 2 g of Ancef. Brought into the operating room, after induction of anesthesia placed in cystolithotomy position. Extremities joints carefully positioned padded. Genitals perineum sterilely prepped and draped. Time-out was performed. Initial cystoscopy showed normal bladder with some encrustation of the pre-existing right ureteral stent. This was grasped with a grasping forceps and under fluoroscopy was removed quite easily without any problem. The upper end uncurled quite easily without any difficulty. We then inserted a 5 Icelandic ureteral catheter on fluoroscopy there was no obvious stones. Retrograde urography showed normal ureter with pelvic alyceal system we passed a Sensor wire into the kidney. We backloaded a digital flexible ureteroscope over the Sensor wire into the kidney. Systematic inspection of the calices and pelvis was performed there was edema at the UPJ. The lower pole calyx had a small gravel too small to basket them. I note this is fragments from previous ESWL. As there was edema at the UPJ we decided to leave a double-J stent 6 Icelandic by 24 cm with the upper coil in the kidney lower coil in the bladder. Specimens: No specimens collected during this procedure. Estimated Blood Loss: <5mls Intraoperative Fluids & Blood Products: crystalloids The instruments, needle and sponge count were found to be correct. Complications: None Condition on Discharge from the operating room was stable Tye Woods MD Date: 10/16/2021 Time: 11:56 AM PRESENCE STATEMENT : I was present and directly participated in the entire procedure. For cysto andright ureteral stent removal in 5 days LLATE CONFEREE * Pre-Procedure Instructions - Shanti Thompson RN - 10/14/2021 2:31 PM APPELLATE CONFEREE We are pleased that you and your doctor have chosen [facility] for your surgery. We hope that the following information will help make your visit a pleasant one. Surgery Date: 10/16/2021 arrive at 0930 AM [facility] (look for sign reading ???[facility]?? ) [address] [place], [place] [phone] Before your surgery: ?? Notify your doctor of ANY change in your health such as a cold, sore throat, fever, infection ora change in the problem for which you are having your surgery. ?? Follow any instructions given to you by your doctor or surgeon. ?? Complete COVID Testing 3-4 days prior to surgery; after testing return home and self-isolate until Day of Surgery. One week before surgery STOP taking: ?? All herbal/vitamin supplements ?? Aspirin (not ordered by your doctor) ?? Aleve, Advil, Motrin, Ibuprofen, or other similar medications (Tylenol is okay). ?? Naproxen, Meloxicam, Arava, Celebrex ?? Ketorolac (Toradol) ?? Diclofenac (oral and topical) ?? Fish Oil, Co Q 10, Cod Liver Oil, or other similar products. 24 hours before your surgery: ?? No smoking, vaping, alcohol, or recreational drug use. ?? Hydrate yourself (water) - if no restrictions. Night before your surgery: ?? DO NOT eat or drink anything after midnight. ?? Follow surgeon's instructions for anti-bacterial shower night before and morning of surgery. ?? Dress in clean, freshly washed pajamas or clothing. ?? Do not use perfume/cologne, make-up, nail cymraes, lotions, oil/vaseline or powders on your skin. ?? Do not shave below the neck on the night before or day of surgery ?? Powder-free deodorant is permitted. ?? The night before surgery sleep on clean linen, no pets. Day of surgery: ?? You may have up to 16 ounces of water/Gatorade (no red or purple) until 0830 AM the morning of your surgery. ?? ONLY take these pills with a tiny sip of water. Pre-Surgery Instructions: Medication Instructions ??? albuterol HFA (PROVENTIL HFA,VENTOLIN HFA,PROAIR HFA) Inhaler If Needed ??? oxyCODONE-acetaminophen (PERCOCET) You may take one tablet if needed ?? Wear comfortable clothes that will not be tight over the area of your surgery. ?? Leave all valuables and jewelry (including all body piercing jewelry) at home. ?? If you use a CPAP machine, please bring it with you to wear after your surgery. ?? Please bring your photo ID, insurance cards, and medication list (including all [id number]) with you. ?? Prescriptions can be filled onsite prior to discharge. Please have your co- pay available. ?? Check in at the Registration Desk. ?? Wear a mask. ?? You may have one visitor daily (visitor must be over the age of 18). After your Outpatient Surgery: ?? You must have a responsible adult to drive you home, you will not be allowed to drive or take a cab home. ?? We recommend you have someone stay with you for 24 hours after your surgery. What to bring if you are spending the night with us: ?? Bring toiletry items such as: robe, slippers, toothbrush, toothpaste, brush or comb. ?? Bring contact lens, hearing aids, glass cases and denture container if you use any of these items. ?? The hospital will provide you with a gown. Questions or concerns: ?? If you have any questions or concerns regarding your procedure, or to cancel your surgery/procedure - contact your surgeon as soon as possible. ?? If you have questions regarding your Pre-Admission Screen/Testing, please call at . LLATE CONFEREE documented in this encounter Plan of Treatment Not on file documented as of this encounter Procedures Procedure Name Priority Date/Time Associated Diagnosis Comments FL FLUOROSCOPY < 1 HOUR IP Routine 10/16/2021 12:18 PM APPELLATE CONFEREE RETROGRADE PYELOGRAM IP Routine 10/16/2021 12:18 PM APPELLATE CONFEREE URETEROSCOPY 10/16/2021 11:20 AM APPELLATE CONFEREE Kidney stone PYELOGRAM - RETROGRADE 10/16/2021 11:20 AM APPELLATE CONFEREE Kidney stone CYSTOSCOPY CHANGE URETERAL STENT 10/16/2021 11:20 AM APPELLATE CONFEREE Kidney stone POCT HCG, URINE Routine 10/16/2021 10:28 AM APPELLATE CONFEREE documented in this encounter Results * FL Fluoroscopy < 1 Hour (10/16/2021 12:18 PM APPELLATE CONFEREE) Narrative RAD_P[facility] - 10/16/2021 12:19 PM APPELLATE CONFEREE The images from this study are not interpreted by Radiology. ??Please refer to the physician's procedure / OR operative note. Tye Woods MD IMG FLUOROSCOPY PROCEDU RES Final Result [facility] * FL Retrograde Pyelogram (10/16/2021 12:18 PM APPELLATE CONFEREE) Anatomical Region Laterality Modality Body N/A Radio Fluoroscop y 10/16/2021 12:3 6 PM APPELLATE CONFEREE Impressions 10/16/2021 12:36 PM APPELLATE CONFEREE RIGHT-SIDED STENT PLACEMENT FOR HYDRONEPHROSIS Electronically signed by: Nelson Bonilla M.D. Narrative 10/16/2021 12:36 PM APPELLATE CONFEREE EXAMINATION: FL RETROGRADE PYELOGRAM dated 10/16/2021 11:05 AM HISTORY: Hydronephrosis, horseshoe kidney FINDINGS: Performance Improvement Consultant radiograph normal. Cannulation right ureter with a ureteroscope. Intrauterine contraceptive device in the pelvis. Contrast injection into the right kidney demonstrates mild caliectasis. Placement of a right-sided stent Procedure Note Nelson Bonilla MD - 10/16/2021 EXAMINATION: FL RETROGRADE PYELOGRAM dated 10/16/2021 11:05 AM HISTORY: Hydronephrosis, horseshoe kidney FINDINGS: Performance Improvement Consultant radiograph normal. Cannulation right ureter with a ureteroscope. Intrauterine contraceptive device in the pelvis. Contrast injection into the right kidney demonstrates mild caliectasis. Placement of a right-sided stent IMPRESSION: RIGHT-SIDED STENT PLACEMENT FOR HYDRONEPHROSIS Electronically signed by: Nelson Bonilla M.D. Tye Woods MD IMG FLUOROSCOPY PROCEDU RES Final Result * POCT hCG, urine (10/16/2021 10:28 AM APPELLATE CONFEREE) HCG, ur, POC Negative Lot Number [id number] QC Backgroud Clear Acceptable QC Control Line Acceptable Urine 10/16/2021 10:2 8 AM APPELLATE CONFEREE Drew Rose MD POINT OF CARE TEST ORDERABLES Fi nal Result documented in this encounter Visit Diagnoses Diagnosis Kidney stone Calculus of kidney documented in this encounter Administered Medications Inactive Administered Medications - up to 3 most recent administrations Medication Order MAR Action Action Date Dose Rate Site ceFAZolin (ANCEF) 1 gram/10 mL in sterile water (premix) 2,000 mg 2,000 mg, intravenous, at 400 mL/hr, Administer over 3 Minutes, Every 8 hours scheduled, First dose on Thu10/16/21 at 1400, Indications: Prophylaxis, SurgicalIndications:Prophylaxi s, Surgical Given 10/16/2021 11:33 AM APPELLATE CONFEREE 2,000 mg celecoxib (CeleBREX) 200 mg capsule - ADS Override Pull Starting on Thu10/16/21 at 1002, For 1 dose, BRIONNA OSWALD: cabinet override celecoxib (CeleBREX) capsule 200 mg 200 mg, oral, Once, On Thu10/16/21 at 1030, For 1 dose, Pre-Op, Indications: Pre-Emptive PainIndications:Pre-Emptive Pain Given 10/16/2021 10:57 AM APPELLATE CONFEREE 200 mg fentaNYL (SUBLIMAZE) 50 mcg/mL preservative free injection - ADS Override Pull Starting on Thu10/16/21 at 1207, For 1 dose, FABIANOR JAZZMINE: cabinet override fentaNYL (SUBLIMAZE) preservative free injection 50 mcg 50 mcg, intravenous, Every 10 min PRN, 1st line for pain, Starting on Thu10/16/21 at 1204, Phase I, Notify Anesthesiologist if total PACU dose reaches 100 mcg and pain score 5/10 or more., Indications: PainIndications:Pain Given 10/16/2021 12:40 PM APPELLATE CONFEREE 50 mcg Left Hand Given 10/16/2021 12:24 PM APPELLATE CONFEREE 50 mcg L eft Hand Given 10/16/2021 12:10 PM APPELLATE CONFEREE 50 mcg L eft Hand ioversoL (OPTIRAY 320) injection As needed, Starting on Thu10/16/21 at 1143, Intra-Op Given 10/16/2021 11:43 AM APPELLATE CONFEREE 5 mL Surgical Site Lactated Ringer's (LR) infusion 30 mL/hr, intravenous, Continuous, Starting on Thu10/16/21 at 1030, Pre-Op New Bag 10/16/2021 11:20 AM APPELLATE CONFEREE oxybutynin (DITROPAN) tablet 5 mg 5 mg, oral, Once, On Thu10/16/21 at 1345, For 1 dose Given 10/16/2021 1:48 PM APPELLATE CONFEREE 5 mg oxyCODONE-acetaminophen (PERCOCET) 5-325 mg per tablet 1 tablet 1 tablet, oral, Once, On Thu10/16/21 at 1500, For 1 dose, Indications: PainIndications:Pain Given 10/16/2021 2:23 PM APPELLATE CONFEREE 1 tablet sodium chloride 0.9% irrigation As needed, Starting on Thu10/16/21 at 1148, Intra-Op Given 10/16/2021 11:48 AM APPELLATE CONFEREE 1,000 mL Surgical Site documented in this encounter Discontinued Medications Medication Sig Discontinue Reason Start Date End Da te escitalopram (LEXAPRO) 10 mg tablet Take 10 mg by mouth daily Other 07/04/2021 10/14/2021 ferrous sulfate 325 mg (65 mg of elemental iron) tablet Take 325 mg by mouth Other 07/04/2021 10/14/2021 medroxyPROGESTERone (medroxyPROGESTERone) 150 mg/mL injection Inject into the muscle as instructed Other 10/02/2014 10/14/2021 oxyCODONE-acetaminophe n (PERCOCET) 7.5-325 mg per tablet Take by mouth every 6 (six) hours as needed Other 09/24/2021 10/14/2021 [id number] acid ( 19) 29 mg iron- 1 mg tablet,chewable CHEW AND SWALLOW 1 TABLET DAILY. as supplement Other 07/18/2014 10/14/2021 sertraline (ZOLOFT) 25 mg tablet Take 1 Taablet Daily for Depression Other 08/12/2016 10/14/2021 traZODone (DESYREL) 50 mg tablet Take 50 mg by mouth nightly as needed Other 07/04/2021 10/14/2021 documented as of this encounter Active and Recently Administered Medications Times are shown in [facility]ATE [facility]. Scheduled Medication Order 10/14/2021 10/15/2021 10/16/2021 ceFAZolin (ANCEF) 1 gram/10 mL in sterile water (premix) 2,000 mg 2,000 mg, intravenous, at 400 mL/hr, Administer over 3 Minutes, Every 8 hours scheduled, First dose on Thu10/16/21 at 1400, Indications: Prophylaxis, Surgical 1133 (Given - Provid er: Amrit Low, PLANT OPERATIONS ENGINEER)1400 (Due) celecoxib (CeleBREX) capsule 200 mg (COMPLETED) 200 mg, oral, Once, On Thu10/16/21 at 1030, For 1 dose, Pre-Op, Indications: Pre-Emptive Pain 1057 (Given - Provid er: Rubén Stern RN) oxybutynin (DITROPAN) tablet 5 mg (COMPLETED) 5 mg, oral, Once, On Thu10/16/21 at 1345, For 1 dose 1348 (Given - Provid er: Jocy Rodriguez RN) oxyCODONE-acetaminophen (PERCOCET) 5-325 mg per tablet 1 tablet (COMPLETED) 1 tablet, oral, Once, On Thu10/16/21 at 1500, For 1 dose, Indications: Pain 1423 (Given - Provid er: Jocy Rodriguez RN) Continuous Medication Order 10/14/2021 10/15/2021 10/16/2021 Lactated Ringer's (LR) infusion 30 mL/hr, intravenous, Continuous, Starting on Thu10/16/21 at 1030, Pre-Op 1120 (New Bag - Prov ider: Amrit Low CRNA) PRN Medication Order 10/14/2021 10/15/2021 10/16/2021 fentaNYL (SUBLIMAZE) preservative free injection 50 mcg (CANCELED) 50 mcg, intravenous, Every 10 min PRN, 1st line for pain, Starting on Thu10/16/21 at 1204, Phase I, Notify Anesthesiologist if total PACU dose reaches 100 mcg and pain score 5/10 or more., Indications: Pain 1210 (Given - Provid er: Jazzmine Pearce RN)1224 (Given - Provider: Jazzmine Pearce RN)1240 (Given - Provider: Jazzmine Pearce, RAZIA) ioversoL (OPTIRAY 320) injection (CANCELED) As needed, Starting on Thu10/16/21 at 1143, Intra-Op 1143 (Given - Provid er: Tye Woods MD) sodium chloride 0.9% irrigation (CANCELED) As needed, Starting on Thu10/16/21 at 1148, Intra-Op 1148 (Given - Provid er: Tye Wodos MD) documented in this encounter Orders Medications Ordered That Aquiles ht Not Have Been Administered Count Last Ordered Date First Ordered Date acetaminophen (TYLENOL) 500 mg tablet - ADS Override Pull 1 10/16/2021 ceFAZolin (ANCEF) 1 gram/10 mL in sterile water (premix) - ADS Override Pull 1 10/16/2021 ceFAZolin (ANCEF) 1 gram/10 mL in sterile water (premix) 2,000 mg 1 10/16/2021 diphenhydrAMINE (BENADRYL) i njection 12.5 mg 2 10/16/2021 fentaNYL (SUBLIMAZE) 50 mcg/ mL preservative free injection - ADS Override Pull 1 10/16/2021 fentaNYL (SUBLIMAZE) preserv ative free injection 50 mcg 3 10/16/2021 Lactated Ringer's (LR) infusion 1 2 Lactated Ringer's (LR) infus ion - ADS Override Pull 1 10/16/2021 naloxone (NARCAN) 0.4 mg/mL injection 0.04-0.4 mg 2 10/16/2021 ondansetron (ZOFRAN) injection 4 mg 2 10/16 oxyCODONE-acetaminophen (PER COCET) 5-325 mg per tablet - ADS Override Pull 1 10/16/2021 sodium chloride 0.9% flush 0.5-20 mL 1 05/2022 documented in this encounter Care Teams Rehabilitation Therapy Technician Relationship Specialty Start Date End Date Citlaly Ramos DO [address] [place] [id number] PCP - General Family Medicine 10/03/21 documented as of this encounter
--- OUTSIDE RECORDS SUMMARY | 2024-09-25 12:00 | XMS_ITS | Encounter Summary ---
Author Organization [facility] Healthcare Address [address] [place] [address] Care Team Providers Care Formulation Chemist Name Role Phone Citlaly Ramos DO Primary Care Provider [phone] Encounter Details Date Type Department Care Team (Late st Contact Info) Description 10/16/2021 11:20 AM SUBSTATION DESIGN DRAFTSPERSON Anesthesia Event [facility] Operating Room [address] [place] [address] [place] [id number] [facility] [place] [address] Drew Rose MD [address] [place] [address] Anesthesia Record Procedure Summary Procedure Name Responsible Anesthesiologist Anesthesia Start Time Anesthesia Stop Time CYSTOSCOPY CHANGE URETERAL STENT; RETROGRADE, URETEROSCOPY, (Right: Urethra) Ja Ugarte MD 10/16/21 1120 10/16/21 1201 Events Date Time Event Comment 10/16/2021 1039 1120 In Room 1120 An Start 1120 An Start Data 1125 An Induction The patient was reevaluated immediately before moderate or deep sedation use and before anesthesia induction. 1127 An Intubation 1127 Anesthesia Ready 1132 Proc Start 1132 Incision Start 1153 Proc Fin 1154 An Extubation 1157 Out of Room 1158 an stop data 1201 Handoff to RN I completed my handoff to the receiving nurse during which we: 1. Patient identified 2. Responsible provider identified 3. Pertinent medical history reviewed 4. Procedure type and surgical course discussed 5. Intraoperative anesthetic management and any significant issues discussed 6. Expectations and concerns for postop period discussed 7. Questions solicited from receiving nurse 8. Patient disposition at the time of handoff: PACU 1201 An Stop 1201 Chart Exception (Billing) Th is event is only to be used when the record fails to meet documentation requirements for billing and thus is unable to be signed through the regular documentation verification process. Please document reason for use: Chart complete Meds Name Total midazolam 2 mg fentaNYL 100 mcg lidocaine (CARDIAC) syringe 2 % 100 mg propofol 160 mg ondansetron 4 mg ceFAZolin (ANCEF) 1 gram/10 mL in steril e water (premix) 2,000 mg 2,000 mg dexamethasone 4 mg/ml 4 mg Lactated Ringer's (LR) infusion 0 mL * Agents Name O2 Air Sevoflurane Inspired Sevoflurane * Blood No blood administrations on file. Lines, Drains, and Airways Type Details Placement Removal Peripheral IV Placement Date: 10/16/21; Placement Time: 1100; Change Due: 10/20/21; Catheter Size: 20 G; Orientation: Left, Posterior; Location: Hand; Inserted by: wr; Insertion Attempts: 1; Patient Tolerance: Tolerated well; Removal Date: 10/16/21; Removal Time: 1521 10/16/21 1100 by Dayna Stahl RN 10/16/21 1521 by Jocy Rodriguez RN Supraglottic Airway Placement Date: 10/16/21; Placement Time: 1131 (created via procedure documentation); Mask Ventilation: 0; Size: 4; Insertion Attempts: 1; Comments: Atraumatic placement of LMA by JUANITA Hawkins with Amrit Low CRNA at bedside during procedure.; Removal Date: 10/16/21; Removal Time: 1157 10/16/21 1131 by Amrit Low CRNA 10/16/21 1157 by Michelle Talbot AA documented in this encounter Social History Tobacco [...] on file Legal Sex Female 1:00 AM SUBSTATION DESIGN DRAFTSPERSON Gender Identity Not on file Sexual Orientation Not on file documented as of this encounter OR Notes * Anesthesia Postprocedure Evaluation - Ja Ugarte MD - 10/16/2021 1:18 PM CST Patient: Jumana Rivers Procedure Summary Date: 10/16/21 Room / Location: OPERATING ROOM 5 / OPERATING ROOM Anesthesia Start: 1120 Anesthesia Stop: 1201 Procedures: CYSTOSCOPY CHANGE URETERAL STENT; RETROGRADE, URETEROSCOPY, (Right Urethra) PYELOGRAM - RETROGRADE (Right Urethra) URETEROSCOPY (Right Urethra) Diagnosis: Kidney stone (kidney stones) Providers: Tye Woods MD Responsible Provider: Ja Ugarte MD Anesthesia Type: general ASA Status: 2 Anesthesia Type: general Last vitals BP 126/86 Pulse 82 Temp 36.5 ??C (97.7 ??F) Resp 8 SpO2 100% Anesthesia Post Evaluation Patient location during evaluation: PACU Patient participation: complete - patient participated Level of consciousness: fully awake Pain score: 2 Pain management: adequate Airway patency: patent Evidence of recall: no Cardiovascular status: hemodynamically stable Respiratory status: room air Hydration status: euvolemic Pt is: normothermic Nausea/Vomiting status: none No complications documented. TATION DESIGN DRAFTSPERSON * Anesthesia Procedure Notes - Amrit Low CRNA - 10/16/2021 11:30 AM SUBSTATION DESIGN DRAFTSPERSON Associated Order(s): Airway Airway Patient location: OR Urgency: elective Indications for airway management: anesthesia Difficult airway: no Staff: Placed by: VOLTMETER OPERATOR: Amrit Low CRNA Emergent airway documentation: Risks and benefits discussed: yes Consent obtained: yes Consent given by: patient Airway prep: Preoxygenated: yes Patient position: sniffing Mask difficulty assessment: 0 - not attempted Spontaneous ventilation during airway: absent Sedation level during airway: GA Final airway details: Final airway type: supraglottic airway Final supraglottic airway: IGel SGA size: 4 Number of attempts: 1 Additional comments: Atraumatic placement of LMA by JUANITA Hawkins with Amrit Low CRNA at bedside during procedure. TATION DESIGN DRAFTSPERSON * Anesthesia Preprocedure Evaluation - Ameya Galvez MD - 10/15/2021 7:45 AM CST Images from the original note were not included. Anesthesia Evaluation Datreion Deven Rivers is a 31 y.o. female Procedure(s): CYSTOSCOPY / ureteroscopy / right URETERAL STENT exchange/ laser litho/ 60 min Pre-Op Diagnosis Codes: * Kidney stone [N20.0] HISTORY Past Medical History Information obtained from: patient and chart. Neurological + Psychiatric history - anxiety and depression Cardiovascular Cardiac system: negative Respiratory + Asthma Dyspnea frequency: never. Rescue inhaler use: never. + Current smoker - Counseled to abstain from smoking the day of surgery. Patient refrained from smoking on day of surgery. Hepatic / Heme Hepatic/Heme system: negative Gastrointestinal GI system: negative Renal / Renal/ system: negative Musculoskeletal/Pain Musculoskeletal/Pain system: negative Endocrine / Other + Obesity (BMI >30) Functional Capacity Functional capacity: 6-10 METs Day of Surgery assessments + Possibility of assessed - HCG negative (see labs). There is no problem list on file for this patient. Past Medical History: Diagnosis Date ??? Anxiety ??? Asthma ??? Depression Past Surgical History: Procedure Laterality Date ??? CYSTOSCOPY INSERTION / REMOVAL STENT / STONE OB History No obstetric history on file. Allergies Allergen Reactions ??? Amoxicillin Hives ??? Amoxicillin-Pot Clavulanate Hives and Urticaria ??? Hydrocodone Rash ??? Hydrocodone-Acetaminophen Urticaria Taking? Last Dose Start Date End Date Provider albuterol HFA (PROVENTIL HFA,VENTOLIN HFA,PROAIR HFA) 90 mcg/actuation inhaler 04/24/14 -- ProviderJermaine MD ibuprofen (ADVIL,MOTRIN) 200 mg tab/cap 10/14/2021 03/15/19 -- ProviderJermaine MD oxyCODONE-acetaminophen (PERCOCET) 5-325 mg per tablet 10/14/21 02/11/22 Tye Woods MD Take 1-2 tablets by mouth every 4 (four) hours as needed for pain Do not exceed 8 tablets per day. triamcinolone (KENALOG) 0.5 % ointment 02/21/21 -- Provider, MD Jermaine No current facility-administered medications for this encounter. Current Outpatient Medications: ??? ibuprofen (ADVIL,MOTRIN) 200 mg tab/cap ??? albuterol HFA (PROVENTIL HFA,VENTOLIN HFA,PROAIR HFA) 90 mcg/actuation inhaler ??? oxyCODONE-acetaminophen (PERCOCET) 5-325 mg per tablet ??? triamcinolone (KENALOG) 0.5 % ointment Social History Tobacco Use Smoking Status Current Every Day Smoker ??? Packs/day: 0.05 ??? Types: Cigars Smokeless Tobacco Never Used Substance and Sexual Activity Alcohol Use Not on file Substance and Sexual Activity Drug Use Never Family History Problem Relation Age of Onset ??? Hypertension Mother ??? Hypertension Maternal Grandmother There were no vitals filed for this visit. PT: No results found for requested labs within last 720 hours. INR: No results found for requested labs within last 720 hours. APTT: No results found for requested labs within last 720 hours. Hgb A1C: No results found for requested labs within last 720 hours. CBC RBC: 10/03/2021: 4.51 M/cumm RDW: No results found for requested labs within last 720 hours. MCHC: 10/03/2021: 31.3 g/dL (L) MCH: 10/03/2021: 24.6 pg (L) MCV: 10/03/2021: 78.7 fL (L) Hct: 10/03/2021: 35.5 % (L) Hgb: 10/03/2021: 11.1 g/dL (L) WBC: 10/03/2021: 5.4 K/cumm MPV: 10/03/2021: 9.8 fL Platelets: 10/03/2021: 413 K/cumm (H) RDW CV: 10/03/2021: 18.4 % (H) RDW Sd: 10/03/2021: 52.7 fL (H) BMP Glucose: 10/03/2021: 86 mg/dL Calcium: 10/03/2021: 9.3 mg/dL Sodium: 10/03/2021: 139 mmol/L Potassium: 10/03/2021: 4.0 mmol/L CO2: 10/03/2021: 26 mmol/L Chloride: 10/03/2021: 103 mmol/L BUN: 10/03/2021: 9 mg/dL Creatinine: 10/03/2021: 0.76 mg/dL DOS Physical Exam Medical history, medications, and allergies reviewed. Attestation: This PAT evaluation 10/16/2021. Airway Exam: Mallampati: II Cervical ROM: FROM TM distance: >4 Cardiovascular Exam: Rate: regular Rhythm: regular Pulmonary Exam: LCTA, bilat Dental Exam: Appears intact Current state: Patient's current state is cooperative. Anesthesia Plan ASA 2 My patient is approved for the Anesthesia Controlled Medication protocol when under care of a VOLTMETER OPERATOR Planned anesthesia: General Team communication plan: LMA Induction: Induction: intravenous. Postoperative Plan: Postoperative administration opioids intended. No postoperative mechanical ventilation intended. Patient's planned disposition post procedure is Outpatient. No trial extubation planned. Informed Consent: Discussed plan with attending, VOLTMETER OPERATOR and AA. Anesthesia plan and risks discussed with patient. Consent and Attending signature: I and/or my designee have discussed the anesthesia plan, benefits, possible alternatives, parental presence at time of induction (if indicated), and clinically relevant risks that may include dental injury, unintentional awareness, and/or other complications. The patient and/or parent/legal guardian understand, and agree to proceed. All questions answered. TATION DESIGN DRAFTSPERSON TATION DESIGN DRAFTSPERSON documented in this encounter Plan of Treatment Not on file documented as of this encounter Procedures Procedure Name Priority Date/Time Associated Diagnosis Comments [place] AN ELECTIVE SUPRAGLOTTIC AIRWAY Routine 10/16/2021 11:30 AM SUBSTATION DESIGN DRAFTSPERSON documented in this encounter Results * [place] AN ELECTIVE SUPRAGLOTTIC AIRWAY (10/16/2021 11:30 AM SUBSTATION DESIGN DRAFTSPERSON) Narrative Amrit Low CRNA - 10/16/2021 11:30 AM SUBSTATION DESIGN DRAFTSPERSON Amrit Low CRNA ? 10/16/2021 11:31 AM Airway Patient location: OR Urgency: elective Indications for airway management: anesthesia Difficult airway: no Staff: Placed by: VOLTMETER OPERATOR: Amrit Low CRNA Emergent airway documentation: Risks and benefits discussed: yes Consent obtained: yes Consent given by: patient Airway prep: Preoxygenated: yes Patient position: sniffing Mask difficulty assessment: 0 - not attempted Spontaneous ventilation during airway: absent Sedation level during airway: GA Final airway details: Final airway type: supraglottic airway Final supraglottic airway: IGel SGA size: 4 Number of attempts: 1 Additional comments: Atraumatic placement of LMA by JUANITA Hawkins with Amrit Low CRNA at bedside during procedure. Ja Ugarte MD ANESTHESIA ORDERABLES Final Result documented in this encounter Visit [...] dose on Thu10/16/21 at 1400, Indications: Prophylaxis, SurgicalIndications:Prophylaxis , Surgical Given 10/16/2021 11:33 AM SUBSTATION DESIGN DRAFTSPERSON 2,000 mg dexAMETHasone (DECADRON) 4 mg/mL injection intravenous, Administer over 2 Minutes, As needed, Starting on Thu10/16/21 at 1133, Anesthesia Intra-op Given 10/16/2021 11:33 AM SUBSTATION DESIGN DRAFTSPERSON 4 mg fentaNYL (SUBLIMAZE) preservative free injection intravenous, As needed, Starting on Thu10/16/21 at 1133, Anesthesia Intra-op Given 10/16/2021 11:40 AM SUBSTATION DESIGN DRAFTSPERSON 50 mcg Given 10/16/2021 11:33 AM SUBSTATION DESIGN DRAFTSPERSON 50 mcg Lactated Ringer's (LR) infusion 30 mL/hr, intravenous, Continuous, Starting on Thu10/16/21 at 1030, Pre-Op New Bag 10/16/2021 11:20 AM SUBSTATION DESIGN DRAFTSPERSON lidocaine (cardiac) (XYLOCAINE) preservative free injection intravenous, As needed, Starting on Thu10/16/21 at 1125, Anesthesia Intra-op, Indications: Ventricular ArrhythmiasIndications:Ventricular Arrhythmias Given 10/16/2021 11:25 AM SUBSTATION DESIGN DRAFTSPERSON 100 mg midazolam (VERSED) 1 mg/mL preservative free injection intravenous, Administer over 2 Minutes, As needed, Starting on Thu10/16/21 at 1120, Anesthesia Intra-op Given 10/16/2021 11:20 AM SUBSTATION DESIGN DRAFTSPERSON 2 mg ondansetron (ZOFRAN) injection intravenous, Administer over 2 Minutes, As needed, Starting on Thu10/16/21 at 1133, Anesthesia Intra-op Given 10/16/2021 11:33 AM SUBSTATION DESIGN DRAFTSPERSON 4 mg propofoL (DIPRIVAN) 10 mg/mL IV intravenous, As needed, Starting on Thu10/16/21 at 1126, Anesthesia Intra-op Given 10/16/2021 11:26 AM SUBSTATION DESIGN DRAFTSPERSON 160 mg documented in this encounter Care Teams Formulation Chemist Relationship Specialty Start Date End Date Citlaly Ramos DO [address] [place] [id number] PCP - General Family Medicine 10/03/21 documented as of this encounter
--- OUTSIDE RECORDS SUMMARY | 2024-09-25 12:00 | XMS_ITS | Encounter Summary ---
Author Organization [facility] Healthcare Address [address] [place] [address] Care Team Providers Care Igniter Assembler Name Role Phone Citlaly Ramos DO Primary Care Provider [phone] Encounter Details Date Type Department Care Team (Latest Contact Info) Description 10/16/2021 9:31 AM COMMUNITY ORGANIZATION WORKER - 10/16/2021 3:24 PM COMMUNITY ORGANIZATION WORKER Hospital Encounter [facility] Operating Room [address] [place] [address] Tye Woods MD [address] [place] [address] Discharge Disposition: Discharge to home or self [...] on file Legal Sex Female 1:00 AM COMMUNITY ORGANIZATION WORKER Gender Identity Not on file Sexual Orientation Not on file documented as of this encounter Last Filed Vital Signs Vital Sign Reading Time Taken Comments Blood Pressure 126/86 10/16/2021 12:40 PM COMMUNITY ORGANIZATION WORKER Pulse 82 10/16/2021 12:40 PM COMMUNITY ORGANIZATION WORKER Temperature 36.5 ??C (97.7 ??F) 10/16/2021 12:[address] Respiratory Rate 8 10/16/2021 12:40 PM COMMUNITY ORGANIZATION WORKER Oxygen Saturation 100% 10/16/2021 12:40 PM COMMUNITY ORGANIZATION WORKER Inhaled Oxygen Concentration - - Weight 90.7 kg (200 lb) 10/16/2021 10:29 AM COMMUNITY ORGANIZATION WORKER Height 162.6 cm (5' 4 ) 10/16/2021 10:29 AM COMMUNITY ORGANIZATION WORKER Body Mass Index 34.33 10/16/2021 10:29 AM COMMUNITY ORGANIZATION WORKER documented in this encounter Discharge Diagnoses Diagnosis Calculus of kidney - CALCULUS OF KIDNEY Unspecified asthma, uncomplicated - UNSPECIFIED ASTHMA, UNCOMPLICATED Nicotine dependence, unspecified, uncomplicated - NICOTINE DEPENDENCE, UNSPECIFIED, UNCOMPLICATED Obesity, unspecified - OBESITY, UNSPECIFIED Body mass index (BMI) 34.0-34.9, adult - BODY MASS INDEX [BMI] 34.0-34.9, ADULT documented in this encounter Discharge Instructions * Discharge Instructions* Jocy Rodriguez RN - 10/16/2021 1:39 PM COMMUNITY ORGANIZATION WORKER NOTE: You have a ureteral stent in [...] - Docusate/miralax as needed for constipation, available [id number] - Phenazopyridine as needed for pain with [...] symptoms, please call the Urology office. Diet: Coosa diet: At first eat a bland diet; [...] Thursday, 8 AM to 5:00 PM: call [phone] and ask for a member of your doctor's team. For urgent matters after 5:00 PM during the week or on weekends or holidays, call [phone] and ask to have the Urology Community Health Consultant Physician paged for you. FOLLOW UP CALLS [...] enough for us, we strive for EXCELLENCE! UNITY ORGANIZATION WORKER * Attachments The following attachments cannot be sent through Care Everywhere. * General Anesthesia (Discharge Care) (Kittitian) * Ureteral Stent Placement (Discharge Care) (Kittitian) * Ureteroscopy (Discharge Care) (Kittitian) * Oxybutynin (By mouth) (Kittitian) * Tamsulosin (By mouth) (Kittitian) documented in this encounter Medications at Time [...] URETERAL STENT exchange/ laser litho/ 60 min UNITY ORGANIZATION WORKER Source Note - Tye Woods MD - 10/14/2021 8:10 AM COMMUNITY ORGANIZATION WORKER Urology History and Physical HPI: Jumana Rivers is a 31 y.o. 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 History of right renal stones in 2018 and in January of last year. Had ESWL both times. Last one with Dr. Zamora at [facility] in January2021 and has a ureteral stent still present since. Apparently insurance was not taken by previous provider. Currently has right flank pain radiating to [...] Modality Abdomen -- Ultrasound Narrative Performed by [facility] RADIOLOGY RENAL ULTRASOUND HISTORY: Horseshoe kidney and [...] since January of last year. Treated at [facility] before. Has flank pain. Urine culture negative. Discussed management options including right ureteroscopic laser lithotripsy and ureteral stent exchange. ESWL also discussed including PCNL. Complications of URS explained including uti, sepsis, hematuria, stent complications, ureteral stricture or perforation, unable to retrieve all of stones. Needs covid test. Tye Woods MD Urology Division [facility] Office [phone] 10/14/2021 8:56 AM . UNITY ORGANIZATION WORKER documented in this encounter Miscellaneous Notes * [...] PROCEDURE: Patient gives history of ESWL at [facility] and ureteral stenting over 6 months ago, [...] any difficulty. We then inserted a 5 Albanian ureteral catheter on fluoroscopy there was no [...] decided to leave a double-J stent 6 Albanian by 24 cm with the upper coil [...] andright ureteral stent removal in 5 days UNITY ORGANIZATION WORKER * Pre-Procedure Instructions - Shanti Thompson RN - 10/14/2021 2:31 PM COMMUNITY ORGANIZATION WORKER We are pleased that you and your doctor have chosen [facility] for your surgery. We hope that the following information will help make your visit a pleasant one. Surgery Date: 10/16/2021 arrive at 0930 AM [facility] (look for sign reading ???EMERGENCY - SURGERY CENTER?? ) [address] [place], [place] [phone] Before your surgery: ?? Notify your doctor [...] ?? Do not use perfume/cologne, make-up, nail japanese, lotions, oil/vaseline or powders on your skin. [...] insurance cards, and medication list (including all [id number]-fkuhamjuxbzprvtpxs) with you. ?? Prescriptions can be filled [...] your Pre-Admission Screen/Testing, please call at . UNITY ORGANIZATION WORKER documented in this encounter Plan of Treatment Not on file documented as of this encounter Procedures Procedure Name Priority Date/Time Associated Diagnosis Comments FL FLUOROSCOPY < 1 HOUR IP Routine 10/16/2021 12:18 PM COMMUNITY ORGANIZATION WORKER RETROGRADE PYELOGRAM IP Routine 10/16/2021 12:18 PM COMMUNITY ORGANIZATION WORKER URETEROSCOPY 10/16/2021 11:20 AM COMMUNITY ORGANIZATION WORKER Kidney stone PYELOGRAM - RETROGRADE 10/16/2021 11:20 AM COMMUNITY ORGANIZATION WORKER Kidney stone CYSTOSCOPY CHANGE URETERAL STENT 10/16/2021 11:20 AM COMMUNITY ORGANIZATION WORKER Kidney stone POCT HCG, URINE Routine 10/16/2021 10:28 AM COMMUNITY ORGANIZATION WORKER documented in this encounter Results * FL Fluoroscopy < 1 Hour (10/16/2021 12:18 PM COMMUNITY ORGANIZATION WORKER) Narrative RAD_PACS_CH - 10/16/2021 12:19 PM COMMUNITY ORGANIZATION WORKER The images from this study are not interpreted by Radiology. ??Please refer to the physician's procedure / OR operative note. Tye Woods MD IMG FLUOROSCOPY PROCEDU RES Final Result RAD_PACS_CH * FL Retrograde Pyelogram (10/16/2021 12:18 PM COMMUNITY ORGANIZATION WORKER) Anatomical Region Laterality Modality Body N/A Radio Fluoroscop y 10/16/2021 12:3 6 PM COMMUNITY ORGANIZATION WORKER Impressions 10/16/2021 12:36 PM COMMUNITY ORGANIZATION WORKER RIGHT-SIDED STENT PLACEMENT FOR HYDRONEPHROSIS Electronically signed by: Nelson Bonilla M.D. Narrative 10/16/2021 12:36 PM COMMUNITY ORGANIZATION WORKER EXAMINATION: FL RETROGRADE PYELOGRAM dated 10/16/2021 11:05 AM HISTORY: Hydronephrosis, horseshoe kidney FINDINGS: Drum Sprayer radiograph normal. Cannulation right ureter with a ureteroscope. Intrauterine contraceptive device in the pelvis. Contrast injection into the right kidney demonstrates mild caliectasis. Placement of a right-sided stent Procedure Note Nelson Bonilla MD - 10/16/2021 EXAMINATION: FL RETROGRADE PYELOGRAM dated 10/16/2021 11:05 AM HISTORY: Hydronephrosis, horseshoe kidney FINDINGS: Drum Sprayer radiograph normal. Cannulation right ureter with a ureteroscope. Intrauterine contraceptive device in the pelvis. Contrast injection into the right kidney demonstrates mild caliectasis. Placement of a right-sided stent IMPRESSION: RIGHT-SIDED STENT PLACEMENT FOR HYDRONEPHROSIS Electronically signed by: Nelson Bonilla M.D. Tye Woods MD IMG FLUOROSCOPY PROCEDU RES Final Result * POCT hCG, urine (10/16/2021 10:28 AM COMMUNITY ORGANIZATION WORKER) HCG, ur, POC Negative Lot Number [id number] QC Backgroud Clear Acceptable QC Control Line Acceptable Urine 10/16/2021 10:2 8 AM COMMUNITY ORGANIZATION WORKER Drew Rose MD POINT OF CARE TEST [...] SurgicalIndications:Prophylaxi s, Surgical Given 10/16/2021 11:33 AM COMMUNITY ORGANIZATION WORKER 2,000 mg celecoxib (CeleBREX) 200 mg capsule - ADS Override Pull Starting on Thu10/16/21 at 1002, For 1 dose, BRIONNA OSWALD: cabinet override celecoxib (CeleBREX) capsule 200 mg 200 mg, oral, Once, On Thu10/16/21 at 1030, For 1 dose, Pre-Op, Indications: Pre-Emptive PainIndications:Pre-Emptive Pain Given 10/16/2021 10:57 AM COMMUNITY ORGANIZATION WORKER 200 mg fentaNYL (SUBLIMAZE) 50 mcg/mL preservative free injection - ADS Override Pull Starting on Thu10/16/21 at 1207, For 1 dose, JAZZMINE MARTINES: cabinet override fentaNYL (SUBLIMAZE) preservative free injection 50 mcg 50 mcg, intravenous, Every 10 min PRN, 1st line for pain, Starting on Thu10/16/21 at 1204, Phase I, Notify Anesthesiologist if total PACU dose reaches 100 mcg and pain score 5/10 or more., Indications: PainIndications:Pain Given 10/16/2021 12:40 PM COMMUNITY ORGANIZATION WORKER 50 mcg Left Hand Given 10/16/2021 12:24 PM COMMUNITY ORGANIZATION WORKER 50 mcg L eft Hand Given 10/16/2021 12:10 PM COMMUNITY ORGANIZATION WORKER 50 mcg L eft Hand Lactated Ringer's (LR) infusion 30 mL/hr, intravenous, Continuous, Starting on Thu10/16/21 at 1030, Pre-Op New Bag 10/16/2021 11:20 AM COMMUNITY ORGANIZATION WORKER oxybutynin (DITROPAN) tablet 5 mg 5 mg, oral, Once, On Thu10/16/21 at 1345, For 1 dose Given 10/16/2021 1:48 PM COMMUNITY ORGANIZATION WORKER 5 mg oxyCODONE-acetaminophen (PERCOCET) 5-325 mg per tablet 1 tablet 1 tablet, oral, Once, On Thu10/16/21 at 1500, For 1 dose, Indications: PainIndications:Pain Given 10/16/2021 2:23 PM COMMUNITY ORGANIZATION WORKER 1 tablet documented in this encounter Discontinued Medications Medication [...] (six) hours as needed Other 09/24/2021 10/14/2021 [id number] acid ( 19) 29 mg iron- 1 [...] Administered Medications Times are shown in COMMUNITY ORGANIZATION WORKER. Scheduled Medication Order 10/14/2021 10/15/2021 10/16/2021 ceFAZolin (ANCEF) 1 gram/10 mL in sterile water (premix) 2,000 mg 2,000 mg, intravenous, at 400 mL/hr, Administer over 3 Minutes, Every 8 hours scheduled, First dose on Thu10/16/21 at 1400, Indications: Prophylaxis, Surgical 1133 (Given - Provid er: Amrit Low CRNA)1400 (Due) celecoxib (CeleBREX) capsule 200 mg (COMPLETED) [...] Pain 1210 (Given - Provid er: Jazzmine Martines RN)1224 (Given - Provider: Jazzmine Martines RN)1240 (Given - Provider: Jazzmine Martines RN) ioversoL (OPTIRAY 320) injection (CANCELED) As needed, Starting on Thu10/16/21 at 1143, Intra-Op 1143 (Given - Provid er: Tye Woods MD) sodium chloride 0.9% irrigation (CANCELED) As needed, Starting on Thu10/16/21 at 1148, Intra-Op 1148 (Given - Provid er: Tye Woods MD) documented in this encounter Orders Medications [...] ative free injection 50 mcg 3 10/16/2021 ioversoL (OPTIRAY 320) injection 1 10/16/19 Lactated Ringer's (LR) infusion 1 2 Lactated Ringer's (LR) infus ion - ADS Override Pull 1 10/16/2021 naloxone (NARCAN) 0.4 mg/mL injection 0.04-0.4 mg 2 10/16/2021 ondansetron (ZOFRAN) injection 4 mg 2 10/16 oxyCODONE-acetaminophen (PER COCET) 5-325 mg per tablet - ADS Override Pull 1 10/16/2021 sodium chloride 0.9% flush 0.5-20 mL 1 05/2022 sodium chloride 0.9% irrigation 1 2 documented in this encounter Care Teams Igniter Assembler Relationship Specialty Start Date End Date Citlaly Ramos DO [address] [place] [id number] PCP - General Family Medicine 10/03/21 documented as of this encounter
--- OUTSIDE RECORDS SUMMARY | 2024-09-25 12:00 | XMS_ITS | Encounter Summary ---
Author Organization [facility] Healthcare Address [address] [place] [address] Care Team Providers Care Blasting Worker Name Role Phone Citlaly Ramos DO Primary Care Provider Encounter Details Date Type Department Care Team (Late st Contact Info) Description 10/14/2021 3:00 PM HEAD WOOD GRINDER Lab [address] [phone] Kidney stone Social History Tobacco Use Types Packs/Day Years [...] on file Legal Sex Female 1:00 AM HEAD WOOD GRINDER Gender Identity Not on file Sexual Orientation Not on file documented as of this encounter Plan of Treatment Not on file documented as of this encounter Procedures Procedure Name Priority Date/Time Associated Diagnosis Comments COVID-19 CORONAVIRUS RNA Routine 10/14/2021 9:51 AM HEAD WOOD GRINDER Kidney stone documented in this encounter Results * COVID-19 Coronavirus RNA Nasopharyngeal (10/14/2021 9:51 AM HEAD WOOD GRINDER) COVID-19 RNA Not Detected ZAKI CHAIREZ Comment: Interpretive Data Synonyms for this test include: PCR and NAAT . ??Testing performed by the [facility] Molecular Infectious Disease Laboratory. The 2019-Novel Coronavirus Assay (COVID-19) Real Time RT-PCR assay is for in vitro diagnostic use under FDA emergency use authorization only. A negative RT-PCR result does not preclude infection with COVID-19 and should not be used as the sole basis for treatment or other patient management decisions. ??Additional sample types have been validated according to CLIA regulations. ?? Current Interpretive Data was last revised on October 11, 2020. Testing performed by: [facility], [address] [place] [address], [id number] First COVID-19 test? No CERNER CH Comment:Testing performed by : [facility], [address] [place] [address], [phone] Employeed in healthcare? No CERNER CH Comment:Testing performed by : [facility], [address] [place] [address], [id number] status? No CERNER CH Comment:Testing performed by : [facility], [address] [place] [address], [phone] Group care resident? No CERNER CH Comment:Testing performed by : [facility], [address] [place] [address], [phone] Hospitalized? No CERNER CH Comment:Testing performed by : [facility], [address] [place] [address], [phone] Is patient in ICU? No CERNER CH Comment:Testing performed by : [facility], [address] [place] [address], [phone] Symptomatic as defined by CDC? No CERNER CH Comment:Testing performed by : [facility], [address] [place] [address], [id number] Nasopharyngeal 10/14/2021 9: 51 AM HEAD WOOD GRINDER 10/14/2021 9:01 PM HEAD WOOD GRINDER [facility] CERNER - 10/15/2021 5:26 AM HEAD WOOD GRINDER What is the reason for testing?->Screening prior to scheduled??procedure or surgery??(Batched) us Tye Woods MD LAB MICROBIOLOGY - GENE RAL ORDERABLES Final Result ZAKI [id number] [address] Department [place] [address] documented in this encounter Visit Diagnoses Diagnosis Kidney stone Calculus of kidney documented in this encounter Care Teams Blasting Worker Relationship Specialty Start Date End Date Citlaly Ramos DO [address] [place] [id number] PCP - General Family Medicine 10/03/21 documented as of this encounter
--- OUTSIDE RECORDS SUMMARY | 2024-09-25 12:01 | XMS_ITS | Encounter Summary ---
Author Organization [facility] Address [address] [place] [address] Phone Care Team Providers Care Elevated Work Platform Operator Name Role Phone Citlaly Ramos DO Primary Care Provider [phone] Reason for Visit * Reason Comments Return Patient * Consultation (Routine) - Closed Specialty Diagnoses / Procedures Referred By Norm benjamin Referred To Contact Urology Diagnoses Hydronephrosis, unspecified hydronephrosis type Kidney stones Referral, Self [facility] (All Locations) Referral ID Status Reason Start Date Expiration Date V isits Requested Visits Authorized [id number] Closed Specialty Services Required 09/27/2021 10/27/2022 99 99 Encounter Details Date Type Department Care Team (Late st Contact Info) Description 10/14/2021 8:10 AM CANOE MAKER Office Visit [facility]) - [facility] Urology [id number] [place] [phone] Tye Woods MD [address] [place] [address] Kidney stone (Primary Dx) Social History Tobacco [...] on file Legal Sex Female 1:00 AM CANOE MAKER Gender Identity Not on file Sexual Orientation Not on file documented as of this encounter Last Filed Vital Signs Vital Sign Reading Time Taken Comments Blood Pressure - - Pulse - - Temperature 36.8 ??C (98.3 ??F) 10/14/2021 9:06 AM CS T Respiratory Rate - - Oxygen Saturation - - Inhaled Oxygen Concentration - - Weight - - Height - - Body Mass Index - - documented in this encounter Ordered Prescriptions Prescription Sig Dispense Quantity Refills Last Filled Start Date End Date oxyCODONE-acetamin ophen (PERCOCET) 5-325 mg per tabletIndications: Pain Take 1-2 tablets by mouth every 4 (four) hours as needed for pain Do not exceed 8 tablets per day. 8 tablet 10/14/2021 documented in this encounter Progress Notes * Tye Woods MD - 10/14/2021 8:10 AM CST Urology History and Physical HPI: Datreshasha Rivers is a 31 y.o. 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 History of right renal stones in 2018 and in January of last year. Had ESWL both times. Last one with Dr. Zamora at [facility] in January2021 and has a ureteral stent [...] Abdomen -- Ultrasound Narrative Performed by [facility] RADIOLOGY RENAL ULTRASOUND HISTORY: Horseshoe kidney and [...] since January of last year. Treated at [facility] before. Has flank pain. Urine culture negative. Discussed management options including right ureteroscopic laser lithotripsy and ureteral stent exchange. ESWL also discussed including PCNL. Complications of URS explained including uti, sepsis, hematuria, stent complications, ureteral stricture or perforation, unable to retrieve all of stones. Needs covid test. Tye Woods MD Urology Division [facility] Office [phone] 10/14/2021 8:56 AM . E MAKER documented in this encounter Miscellaneous Notes * Addendum Note - Tru Funez RMA - 10/14/2021 8:10 AM CSTAddended by: TRU FUNEZ on: 10/14/2021 09:18 AM Modules accepted: Orders E MAKER documented in this encounter Plan of Treatment Not on file documented as of this encounter Results * COVID-19 Coronavirus RNA Nasopharyngeal (10/14/2021 9:51 AM CANOE MAKER) COVID-19 RNA Not Detected ZAKI CHAIREZ Comment: [...] on October 11, 2020. Testing performed by: [facility], [address] [place] [address], [phone] First COVID-19 test? No CERNER Comment:Testing performed by : [facility], [address] [place] [address], [phone] Employeed in healthcare? No CERNER Comment:Testing performed by : [facility], [address] [place] [address], [phone] status? No CERNER Comment:Testing performed by : [facility], [address] [place] [address], [phone] Group care resident? No CERNER Comment:Testing performed by : [facility], [address] [place] [address], [phone] Hospitalized? No CERNER Comment:Testing performed by : [facility], [address] [facility], [address] Is patient in ICU? No CERNER Comment:Testing performed by : [facility], [address] [place] [address], [phone] Symptomatic as defined by CDC? No CERNER Comment:Testing performed by : [facility], [address] [place] [address], [phone] Nasopharyngeal 10/14/2021 9: 51 AM CANOE MAKER 10/14/2021 9:01 PM CANOE MAKER Jon HAINES - 10/15/2021 5:26 AM CANOE MAKER What is the reason for testing?->Screening prior to scheduled??procedure or surgery??(Batched) Tye Woods MD LAB MICROBIOLOGY - GENE [place] [id number] Adriana Navarrete Department [place] [address] documented in this encounter Visit Diagnoses Diagnosis Kidney stone- Primary Calculus of kidney Kidney stone Calculus of kidney documented in this encounter Historical Medications * This list may reflect changes made after this encounter. triamcinolone (KENALOG) 0.5 % ointment Apply topically 2 (two) times a day as needed 02/21/2021 ibuprofen (ADVIL,MOTRIN) 200 mg tab/cap Take 800 mg by mouth as needed 03/15/2019 albuterol HFA (PROVENTIL HFA,VENTOLIN HFA,PROAIR HFA) 90 mcg/actuation inhaler INHALE 1-2 PUFFS EVERY 4-6 HOURS NEEDED AND DIRECTED. for asthma 04/24/2014 traZODone (DESYREL) 50 mg tablet Take 50 mg by mouth nightly as needed 07/04/2021 2 sertraline (ZOLOFT) 25 mg tablet Take 1 Taablet Daily for Depression 08/12/2016 2 [id number]-jxfc-odaoo acid ( 19) 29 mg iron- 1 mg tablet,chewable CHEW AND SWALLOW 1 TABLET DAILY. as supplement 07/18/2014 2 oxyCODONE-acetam inophen (PERCOCET) 7.5-325 mg per tablet Take by mouth every 6 (six) hours as needed 09/24/2021 2 medroxyPROGESTER one (medroxyPROGESTE Isidro) 150 mg/mL injection Inject into the muscle as instructed 10/02/2014 2 ferrous sulfate 325 mg (65 mg of elemental iron) tablet Take 325 mg by mouth 07/04/2021 2 escitalopram (LEXAPRO) 10 mg tablet Take 10 mg by mouth daily 07/04/2021 2 added in this encounter Care Teams Elevated Work Platform Operator Relationship Specialty Start Date End Date Citlaly Ramos DO [address] [place] [phone] PCP - General Family Medicine 10/03/21 documented as of this encounter
--- OUTSIDE RECORDS SUMMARY | 2024-09-25 12:01 | XMS_ITS | Encounter Summary ---
Author Organization [facility] Healthcare Address [address] [place] [address] Care Team Providers Care Poker Prop Player Name Role Phone TierraCitlaly avalos Primary Care Provider [phone] Reason for Referral * Diagnostic Imaging (Routine) - Closed Specialty Diagnoses / Procedures Referred By Norm benjamin Referred To Contact Radiology Diagnoses Hydronephrosis, unspecified hydronephrosis type Kidney stones Procedures CT Abdomen Pelvis WO Contrast Tye Woods MD Phone: tel: fax: [address] [address] Referral ID Status Reason Start Date Expiration Date Visits Re quested Visits Authorized [id number] Closed 10/03/2021 11/02/2022 1 1 RINTENDENT TRANSPORTATION Reason for Visit * Diagnostic Imaging (Routine) - Closed Specialty Diagnoses / Procedures Referred By Norm benjamin Referred To Contact Radiology Diagnoses Hydronephrosis, unspecified hydronephrosis type Kidney stones Procedures CT Abdomen Pelvis WO Contrast Tye Woods MD Phone: tel: fax: [address] [address] Referral ID Status Reason Start Date Expiration Date Visits Re quested Visits Authorized [id number] Closed 10/03/2021 11/02/2022 1 1 Encounter Details Date Type Department Care Team (Latest Contact Info) Description 10/14/2021 7:30 AM SUPERINTENDENT TRANSPORTATION - 10/14/2021 11:59 PM SUPERINTENDENT TRANSPORTATION Hospital Encounter [facility] and Radiology [id number] [phone] Tye Woods MD [address] [place] [address] Hydronephrosis, unspecified hydronephrosis type; Kidney stones Discharge Disposition: Discharge to home or self [...] on file Legal Sex Female 1:00 AM SUPERINTENDENT TRANSPORTATION Gender Identity Not on file Sexual Orientation [...] Diagnosis Comments CT ABDOMEN PELVIS WO CONTRAST Schedule Routine, Read Routine (OP Routine) 10/14/2021 8:50 AM SUPERINTENDENT TRANSPORTATION Hydronephrosis, unspecified hydronephrosis type Kidney stones documented in this encounter Results * CT Abdomen Pelvis WO Contrast (10/14/2021 8:50 AM SUPERINTENDENT TRANSPORTATION) Anatomical Region Laterality Modality Body N/A Computed Tomogra phy 10/14/2021 11:5 4 AM SUPERINTENDENT TRANSPORTATION Impressions 10/14/2021 11:54 AM SUPERINTENDENT TRANSPORTATION 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 RIGHT DOUBLE-J STENT WELL-POSITIONED. 2 SMALL CALCULI LOWER POLE RIGHT KIDNEY. MINUTE CALCULUS UPPER POLE LEFT KIDNEY. Electronically signed by: Deshawn Dennison 10/14/2021 11:54 AM SUPERINTENDENT TRANSPORTATION EXAMINATION: CT ABDOMEN PELVIS WO CONTRAST dated 10/14/2021 7:30 AM HISTORY: 31-year-old woman history of kidney stones with hydronephrosis and flank pain retained stent right side TECHNIQUE: Spiral noncontrast CT with multiplanar reconstructions FINDINGS: Correlation is made with an outside ultrasound of the kidneys dated 09/24/2021 demonstrating hydronephrosis or renal calculi. Images do not the report available. Network Field Engineer radiograph demonstrates a double-J stent on the right side. Normal bowel gas pattern. Intrauterine contraceptive device. Dense calcific density inferior to the right kidney. Lung bases: Normal aeration of the bases without infiltrates fluid failure or nodules. Heart size normal. No pericardial fluid. Liver size is normal without visible mass effect or biliary dilatation. The gallbladder is nondistended without inflammation or calculus. The spleen, adrenal glands and pancreas are normal. Kidneys: Horseshoe kidney. Right kidney double-J stent appears to be satisfactorily positioned. Calculi overlie the lower pole of the right kidney measuring 3 and 2 mm respectively. No additional calculi within the right kidney. Perinephric soft tissues are normal and there is no hydronephrosis on the right side. The stent is in position or way through the bladder. No definite calculi are seen within the right ureter within the limitations of the study. Left kidney: Normal sized faint calcific density small in size between the mid and upper pole nonobstructive likely a 2 mm calculus. No additional calculi seen. Left ureter nondistended and nonobstructed. Uterus age-appropriate with intrauterine contraceptive device, retroverted. Urinary bladder underfilled but smooth in outline. No free air or free fluid. The bowel gas pattern is normal. Normal appendix. Fat-containing umbilical hernia. Coronal images demonstrate normal bowel gas pattern. Lumbar spine normal Procedure Note Nelson Bonilla MD - 10/14/2021 EXAMINATION: CT ABDOMEN PELVIS WO CONTRAST dated 10/14/2021 7:30 AM HISTORY: 31-year-old woman history of kidney stones with hydronephrosis and flank pain retained stent right side TECHNIQUE: Spiral noncontrast CT with multiplanar reconstructions FINDINGS: Correlation is made with an outside ultrasound of the kidneys dated 09/24/2021 demonstrating hydronephrosis or renal calculi. Images do not the report available. Network Field Engineer radiograph demonstrates a double-J stent on the right side. Normal bowel gas pattern. Intrauterine contraceptive device. Dense calcific density inferior to the right kidney. Lung bases: Normal aeration of the bases without infiltrates fluid failure or nodules. Heart size normal. No pericardial fluid. Liver size is normal without visible mass effect or biliary dilatation. The gallbladder is nondistended without inflammation or calculus. The spleen, adrenal glands and pancreas are normal. Kidneys: Horseshoe kidney. Right kidney double-J stent appears to be satisfactorily positioned. Calculi overlie the lower pole of the right kidney measuring 3 and 2 mm respectively. No additional calculi within the right kidney. Perinephric soft tissues are normal and there is no hydronephrosis on the right side. The stent is in position or way through the bladder. No definite calculi are seen within the right ureter within the limitations of the study. Left kidney: Normal sized faint calcific density small in size between the mid and upper pole nonobstructive likely a 2 mm calculus. No additional calculi seen. Left ureter nondistended and nonobstructed. Uterus age-appropriate with intrauterine contraceptive device, retroverted. Urinary bladder underfilled but smooth in outline. No free air or free fluid. The bowel gas pattern is normal. Normal appendix. Fat-containing umbilical hernia. Coronal images demonstrate normal bowel gas pattern. Lumbar spine normal IMPRESSION: 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 RIGHT DOUBLE-J STENT WELL-POSITIONED. 2 SMALL CALCULI LOWER POLE RIGHT KIDNEY. MINUTE CALCULUS UPPER POLE LEFT KIDNEY. Electronically signed by: Nelson Bonilla M.D. Tye Woods MD IMG CT PROCEDURES Final Result documented in this encounter Visit Diagnoses Diagnosis Hydronephrosis, unspecified hydronephrosis type Kidney stones Calculus of kidney documented in this encounter Care Teams Poker Prop Player Relationship Specialty Start Date End Date Citlaly Ramos DO [address] [place] [address] PCP - General Family Medicine 10/03/21 documented as of this encounter
--- OUTSIDE RECORDS SUMMARY | 2024-09-25 12:01 | XMS_ITS | Encounter Summary ---
Author Organization [facility] Address [address] [place] [address] Phone Care Team Providers Care Senior Systems Programmer Name Role Phone Citlaly Ramos DO Primary Care Provider [phone] Encounter Details Date Type Department Care Team (Late st Contact Info) Description 10/14/2021 Telephone [facility] Surgery [address] [place], [place] [phone] Susana Lopez CMA Social History Tobacco Use Types Packs/Day Years [...] on file Legal Sex Female 1:00 AM FACILITIES MAINTENANCE ENGINEER Gender Identity Not on file Sexual Orientation Not on file documented as of this encounter Miscellaneous Notes * Telephone Encounter - Jennifer Jeter - 10/14/2021 2:08 PM CST Called pharmacy because this is the first time they are filling it the dose can only be for a max of 6. If she has refills they can be for a max of 8. LITIES MAINTENANCE ENGINEER * Telephone Encounter - Susana Lopez CMA - 10/14/2021 11:58 AM FACILITIES MAINTENANCE ENGINEER Pharm called the rx for Oxycodone is considered a high dose they are asking if we can change it to max 6 per day to have it filled. LITIES MAINTENANCE ENGINEER documented in this encounter Plan of Treatment Not on file documented as of this encounter Visit Diagnoses Not on filedocumented in this encounter Care Teams Senior Systems Programmer Relationship Specialty Start Date End Date Citlaly Ramos DO [address] [place] [address] PCP - General Family Medicine 10/03/21 documented as of this encounter
--- OUTSIDE RECORDS SUMMARY | 2024-09-25 12:01 | XMS_ITS | Encounter Summary ---
Author Organization [facility] Healthcare Address [address] [place] [address] Care Team Providers Care Toolroom Keeper Name Role Phone Citlaly Ramos DO Primary Care Provider [phone] Encounter Details Date Type Department Care Team (Late st Contact Info) Description 10/10/2021 Orders Only [facility] [address] [place] [address] Tye Woods MD [address] [place] [address] Social History Tobacco Use Types Packs/Day Years Used Date Smoking Tobacco: Every Day Smokeless Tobacco: Never AUDIT-C Answer Date Recorded [...] on file Legal Sex Female 1:00 AM TRUCK SHOP MECHANIC Gender Identity Not on file Sexual Orientation Not on file documented as of this encounter Plan of Treatment Not on file documented as of this encounter Visit Diagnoses Not on filedocumented in this encounter Care Teams Toolroom Keeper Relationship Specialty Start Date End Date Citlaly Ramos DO [address] [place] [id number] PCP - General Family Medicine 10/03/21 documented as of this encounter
--- OUTSIDE RECORDS SUMMARY | 2024-09-25 12:01 | XMS_ITS | Encounter Summary ---
Author Organization [facility] Address [address] [place] [address] Phone Care Team Providers Care Distribution District Supervisor Name Role Phone Citlaly Ramos DO Primary Care Provider [phone] Encounter Details Date Type Department Care Team (Late st Contact Info) Description 10/10/[address] [facility] Urology [address], [place] [address] Tye Woods MD [address] [place] [address] Social History Tobacco Use Types Packs/Day Years Used Date Smoking Tobacco: Every Day Smokeless Tobacco: Never Comments No Sex and Gender Information Value Date Recorded Sex Assigned at Not on file Legal Sex Female 1:00 AM MOLECULAR GENETIC PATHOLOGIST Gender Identity Not on file Sexual Orientation Not on file documented as of this encounter Miscellaneous Notes * Telephone Encounter - Reba Zamudio RN - 10/10/2021 3:32 PM CST Sent patient my chart message with below inforamtion ----- Message from Tye Woods MD sent at 10/10/2021 1:29 PM MOLECULAR GENETIC PATHOLOGIST ----- Regarding: RE: Pain medication refill Brannon Britton is not allowing to eprescribe toradol or tyelenol #3. My imprivata is not working. She can tryaleve 1 tab bid po. If not she can come tomorrow to our office to cotton picker prescription or can get it thru her PCP. Sorry Thanks ----- Message ----- From: Reba Zamudio RN Sent: 10/09/2021 3:17 PM MOLECULAR GENETIC PATHOLOGIST To: Tye Woods MD Subject: Pain medication refill Pt would like to see if she can get some pain medication sent to pharmacy all ED medication is gonept was schedule to see MD tomorrow but bc of weather she is post poned for Thursday. Pt is allergic to Vicodin. Pharmacy of choice is [facility] [place] CULAR GENETIC PATHOLOGIST CULAR GENETIC PATHOLOGIST documented in this encounter Plan of Treatment Not on file documented as of this encounter Visit Diagnoses Not on filedocumented in this encounter Care Teams Distribution District Supervisor Relationship Specialty Start Date End Date Citlaly Ramos DO [address] [place] [address] PCP - General Family Medicine 10/03/21 documented as of this encounter
--- OUTSIDE RECORDS SUMMARY | 2024-09-25 12:02 | XMS_ITS | Encounter Summary ---
Author Organization [facility] Healthcare Address [address] [place] [address] Care Team Providers Care Project Control Manager Name Role Phone Citlaly Ramos DO Primary Care Provider [phone] Encounter Details Date Type Department Care Team (Latest Contact Info) Description 10/03/2021 10:39 AM FOOD AND NUTRITION TEACHER - 10/03/2021 11:59 PM FOOD AND NUTRITION TEACHER Hospital Encounter [facility] Radiology [facility] [address] [place] [id number] Discharge Disposition: Discharge to home or self care Social History Tobacco Use Types Packs/Day Years Used Date Smoking Tobacco: Every Day Smokeless Tobacco: Never Comments No Sex and Gender Information Value Date Recorded Sex Assigned at Not on file Legal Sex Female 1:00 AM FOOD AND NUTRITION TEACHER Gender Identity Not on file Sexual Orientation Not on file documented as of this encounter Medications at Time of Discharge albuterol HFA (PROVENTIL HFA,VENTOLIN HFA,PROAIR HFA) 90 mcg/actuation inhaler INHALE 1-2 PUFFS EVERY 4-6 HOURS NEEDED AND DIRECTED. for asthma 04/24/2014 ibuprofen (ADVIL,MOTRIN) 200 mg tab/cap Take 800 mg by mouth as needed 03/15/2019 triamcinolone (KENALOG) 0.5 % ointment Apply topically 2 (two) times a day as needed 02/21/2021 escitalopram (LEXAPRO) 10 mg tablet Take 10 mg by mouth daily 07/04/2021 ferrous sulfate 325 mg (65 mg of elemental iron) tablet Take 325 mg by mouth 07/04/2021 02/07/202 2 medroxyPROGESTER one (medroxyPROGESTE Isidro) 150 mg/mL injection Inject into the muscle as instructed 10/02/2014 2 oxyCODONE-acetam inophen (PERCOCET) 7.5-325 mg per tablet Take by mouth every 6 (six) hours as needed 09/24/2021 2 [id number] acid ( 19) 29 mg iron- 1 mg tablet,chewable CHEW AND SWALLOW 1 TABLET DAILY. as supplement 07/18/2014 2 sertraline (ZOLOFT) 25 mg tablet Take 1 Taablet Daily for Depression 08/12/2016 2 traZODone (DESYREL) 50 mg tablet Take 50 mg by mouth nightly as needed 07/04/2021 2 documented as of this encounter Discharge Disposition Disposition Code Departure Means Destination Discharge to home or self care documented in this encounter Plan of Treatment Not on file documented as of this encounter Procedures Procedure Name Priority Date/Time Associated Diagnosis Comments US TRANSFER OF OUTSIDE FILMS Routine 10/03/2021 10:40 AM FOOD AND NUTRITION TEACHER Diagnosis unknown documented in this encounter Results * US Outside Reference (10/03/2021 10:40 AM FOOD AND NUTRITION TEACHER) Impressions [facility] - 10/03/2021 10:40 AM FOOD AND NUTRITION TEACHER These images are for Reference purposes only and have not been reviewed by [facility] Radiology. ??There will be no report generated by a [facility] Radiologist. Narrative [facility] - 10/03/2021 10:40 AM FOOD AND NUTRITION TEACHER EXAMINATION: ??Images For Reference Purposes Only us Tye Woods MD IMG US PROCEDURES Final Result [facility] documented in this encounter Visit Diagnoses Not on filedocumented in this encounter Care Teams Project Control Manager Relationship Specialty Start Date End Date Citlaly Ramos DO [address] [place] [address] PCP - General Family Medicine 10/03/21 documented as of this encounter
--- OUTSIDE RECORDS SUMMARY | 2024-09-25 12:02 | XMS_ITS | Encounter Summary ---
Author Organization [facility] Address [address] [place] [address] Phone Care Team Providers Care Recycling Worker Name Role Phone Citlaly Ramos DO Primary Care Provider [phone] Encounter Details Date Type Department Care Team (Late st Contact Info) Description 10/09/2021 Telephone [facility] Surgery [address] [place], [place] [phone] Blas Ca BS Social History Tobacco Use Types Packs/Day Years Used Date Smoking Tobacco: Every Day Smokeless Tobacco: Never Comments No Sex and Gender Information Value Date Recorded Sex Assigned at Not on file Legal Sex Female 1:00 AM MECHANICAL SYSTEMS DESIGN ENGINEER Gender Identity Not on file Sexual Orientation Not on file documented as of this encounter Miscellaneous Notes * Telephone Encounter - Blas Ca BS - 10/09/2021 12:50 PM MECHANICAL SYSTEMS DESIGN ENGINEER Pt would like to see if she can get some pain medication sent to pharmacy all ED medication is gonept was schedule to see MD tomorrow but bc of weather she is post poned for Thursday. Pt is allergic to Vicodin. Pharmacy of choice is [facility] in [place]. Please follow up with pt. ANICAL SYSTEMS DESIGN ENGINEER documented in this encounter Plan of Treatment Not on file documented as of this encounter Visit Diagnoses Not on filedocumented in this encounter Care Teams Recycling Worker Relationship Specialty Start Date End Date Citlaly Ramos DO [address] [place] [address] PCP - General Family Medicine 10/03/21 documented as of this encounter
--- OUTSIDE RECORDS SUMMARY | 2024-09-25 12:02 | XMS_ITS | Encounter Summary ---
Author Organization [facility] Healthcare Address [address] [place] [address] Care Team Providers Care Spike Machine Feeder Name Role Phone Citlaly Ramos DO Primary Care Provider [phone] Encounter Details Date Type Department Care Team (Late st Contact Info) Description 10/03/2021 7:20 PM SUPPLY PERSON Lab [address] [phone] Hydronephrosis, unspecified hydronephrosis type; Kidney stones Social History Tobacco Use Types Packs/Day Years Used Date Smoking Tobacco: Every Day Smokeless Tobacco: Never Comments No Sex and Gender Information Value Date Recorded Sex Assigned at Not on file Legal Sex Female 1:00 AM SUPPLY PERSON Gender Identity Not on file Sexual Orientation Not on file documented as of this encounter Plan of Treatment Not on file documented as of this encounter Procedures Procedure Name Priority Date/Time Associated Diagnosis Comments URINE CULTURE Routine 10/03/2021 9:14 AM SUPPLY PERSON Hydronephrosis, unspecified hydronephrosis type Kidney stones documented in this encounter Results * Urine culture Urine, clean voided (10/03/2021 9:14 AM SUPPLY PERSON) Report Final Report: Growth indicative of contamination with periurethral belle. Please submit a new specimen with special attention given to the collection process and to prompt transport to the laboratory. ZAKI CHAIREZ Comment:Testing performed by : [facility], [address] [facility] [place] [address] Organism GROWTH INDICATES CONTAM WITH PERIURETHRAL BELLE. ZAKI Urine, clean voided 10/03/2021 9:14 AM SUPPLY PERSON 10/03/2021 11:13 PM SUPPLY PERSON Narrative ZAKI CHAIREZ - 10/05/2021 11:53 AM SUPPLY PERSON Testing performed by [facility] Microbiology Laboratory ([phone]) Tye Woods MD LAB MICROBIOLOGY - GENE RAL ORDERABLES Final Result ZAKI [id number] [address] Department [place] [address] documented in this encounter Visit Diagnoses Diagnosis Hydronephrosis, unspecified hydronephrosis type Kidney stones Calculus of kidney documented in this encounter Care Teams Spike Machine Feeder Relationship Specialty Start Date End Date Citlaly Ramos DO [address] [place] [address] PCP - General Family Medicine 10/03/21 documented as of this encounter
--- OUTSIDE RECORDS SUMMARY | 2024-09-25 12:02 | XMS_ITS | Encounter Summary ---
Author Organization [facility] Healthcare Address [address] [place] [address] Care Team Providers Care Remnants Cutter Name Role Phone Citlaly Ramos DO Primary Care Provider [phone] Encounter Details Date Type Department Care Team (Late st Contact Info) Description 10/03/2021 10:05 AM STUMPER FELLER Lab [facility] [address] [place] [address] Tye Woods MD [address] [place] [address] Hydronephrosis, unspecified hydronephrosis type; Kidney stones Discharge Disposition: Discharge to home or self care Social History Tobacco Use Types Packs/Day Years Used Date Smoking Tobacco: Every Day Smokeless Tobacco: Never Comments No Sex and Gender Information Value Date Recorded Sex Assigned at Not on file Legal Sex Female 1:00 AM STUMPER FELLER Gender Identity Not on file Sexual Orientation Not on file documented as of this encounter Discharge Disposition Disposition Code Departure Means Destination Discharge to home or self care documented in this encounter Plan of Treatment Not on file documented as of this encounter Procedures Procedure Name Priority Date/Time Associated Diagnosis Comments EGFR Routine 10/03/2021 9:55 AM STUMPER FELLER Hydronephrosis, unspecified hydronephrosis type Kidney stones DIFFERENTIAL AUTO Routine 10/03/2021 9:5 5 AM STUMPER FELLER Hydronephrosis, unspecified hydronephrosis type Kidney stones CBC WITH AUTO DIFFERENTIAL Routine 10/03/2021 9:55 AM STUMPER FELLER Hydronephrosis, unspecified hydronephrosis type Kidney stones BASIC METABOLIC PANEL Routine 10/03/2021 9:55 AM STUMPER FELLER Hydronephrosis, unspecified hydronephrosis type Kidney stones documented in this encounter Results * eGFR (10/03/2021 9:55 AM STUMPER FELLER) eGFR 109 mL/min/1. 73 m2 ZAKI CHAIREZ Comment: Interpretive Data Reference Interval Normal ?>/= 90 mL/min/1.73m2 Mildly decreased* ? 60 - 89 mL/min/1.73m2 Mildly to moderately decreased ?45 - 59 mL/min/1.73m2 Moderately to severely decreased ??30 - 44 mL/min/1.73m2 Severely decreased ?15 - 29 mL/min/1.73m2 Kidney Failure ?< 15 ??mL/min/1.73m2 *Relative to young adult level Estimated glomerular filtration rate is determined by the 2020 CKD-EPI equation recommended by the National Kidney Foundation (A Unifying Approach to GFR Estimation: Recommendations of the NKF-ASK Task Force on Reassessing the Inclusion of Race in Diagnosing Kidney Disease, JASN 2020). The CKD-EPI equation should not be used for patients with unstable renal function and has not been validated in children and those over 70. Current interpretive data was last reviewed 2021. Blood 10/03/2021 9:55 AM STUMPER FELLER 10/03/2021 11:49 AM STUMPER FELLER us Tye Woods MD LAB BLOOD ORDERABLES Fi nal Result ZAKI CHAIREZ [address] [address] Department [place] [address] * Differential, auto (10/03/2021 9:55 AM STUMPER FELLER) Neutrophil abs 2.6 1.7 - 6.5 K/cumm [facility] Imm gran abs 0.0 0.0 - 0.1 K/cumm [facility] Lymphocyte abs 1.5 0.8 - 3.3 K/cumm [facility] Monocyte abs 0.7 0.2 - 0.8 K/cumm [facility] Eosinophil abs 0.4 0.0 - 0.5 K/cumm [facility] Basophil abs 0.1 0.0 - 0.1 K/cumm [facility] Neutrophil pct 48.5 % [facility] Comment: Interpretive Data Percent cell count reference ranges are not reported, since discordance with absolute values may lead to misinterpretation of CBC data. Current Interpretive Data was last revised on 2017. Imm gran pct 0.4 % [facility] Comment: Interpretive Data Percent cell count reference ranges are not reported, since discordance with absolute values may lead to misinterpretation of CBC data. Current Interpretive Data was last revised on 2017. Lymphocyte pct 28.4 % [facility] Comment: Interpretive Data Percent cell count reference ranges are not reported, since discordance with absolute values may lead to misinterpretation of CBC data. Current Interpretive Data was last revised on 2017. Monocyte pct 13.4 % [facility] Comment: Interpretive Data Percent cell count reference ranges are not reported, since discordance with absolute values may lead to misinterpretation of CBC data. Current Interpretive Data was last revised on 2017. Eosinophil pct 8.2 % [facility] Comment: Interpretive Data Percent cell count reference ranges are not reported, since discordance with absolute values may lead to misinterpretation of CBC data. Current Interpretive Data was last revised on 2017. Basophil pct 1.1 % [facility] Comment: Interpretive Data Percent cell count reference ranges are not reported, since discordance with absolute values may lead to misinterpretation of CBC data. Current Interpretive Data was last revised on 2017. Blood 10/03/2021 9:55 AM STUMPER FELLER 10/03/2021 11:42 AM STUMPER FELLER us Tye Chuck MD LAB BLOOD ORDERABLES Fi nal Result [facility] [address] [address] Department [place] [address] * Basic metabolic panel (10/03/2021 9:55 AM STUMPER FELLER) Sodium 139 135 - 145 mmol/L [facility] Potassium, pl 4.0 3.3 - 4.9 mmol/L [facility] Chloride 103 97 - 110 mmol/L [facility] CH CO2 26 22 - 32 mmol/L [facility] CH Anion gap 10 2 - 15 mmol/L [facility] BUN 9 8 - 25 mg/dL [facility] Creatinine 0.76 0.60 - 1.10 mg/dL [facility] Glucose 86 70 - 199 mg/dL [facility] Comment: Interpretive Data Fasting glucose >/= 126 mg/dl is diagnostic for diabetes. ?? Fasting is defined as no caloric intake for at least 8 hours. Fasting glucose between 100 mg/dl to 125 mg/dl is diagnostic of prediabetes. In a patient with classic symptoms of hyperglycemia or hyperglycemic crisis, a random glucose >/= 200 mg/dl is diagnostic for diabetes. In the absence of unequivocal hyperglycemia, results should be confirmed by repeat testing. The classification and Diagnosis of Diabetes Diabetes Care 2017;40 (Suppl. 1):S11. Current interpretive data was last revised 2017. Calcium 9.3 8.5 - 10.3 mg/dL [facility] Blood 10/03/2021 9:55 AM STUMPER FELLER 10/03/2021 11:42 AM STUMPER FELLER us Tye Woods MD LAB BLOOD ORDERABLES Fi nal Result [facility] [address] [address] Department [place] [address] * (ABNORMAL) CBC with auto differential (10/03/2021 9:55 AM STUMPER FELLER) WBC 5.4 3.8 - 9.9 K/cumm [facility] Hgb 11.1(L) 11.9 - 15.5 g/dL [facility] Hct 35.5(L) 35.6 - 45.5 % [facility] Plt 413(H) 150 - 400 K/cumm [facility] MPV 9.8 9.1 - 12.3 fL [facility] RBC 4.51 3.90 - 5.20 M/cumm [facility] MCV 78.7(L) 81.3 - 96.4 fL [facility] MCH 24.6(L) 27.1 - 33.3 pg [facility] MCHC 31.3(L) 32.3 - 35.7 g/dL [facility] CH RDW CV 18.4(H) 11.1 - 14.9 % [facility] RDW SD 52.7(H) 35.7 - 48.1 fL [facility] NRBC abs 0.00 0.00 - 0.01 K/cumm [facility] Blood 10/03/2021 9:55 AM STUMPER FELLER 10/03/2021 11:42 AM STUMPER FELLER Tye Woods MD LAB BLOOD ORDERABLES Fi nal Result [facility] [address] [address] Department [place] [address] documented in this encounter Visit Diagnoses Diagnosis Hydronephrosis, unspecified hydronephrosis type Kidney stones Calculus of kidney documented in this encounter Care Teams Remnants Cutter Relationship Specialty Start Date End Date Citlaly Ramos DO [address] [place] [address] PCP - General Family Medicine 10/03/21 documented as of this encounter
--- OUTSIDE RECORDS SUMMARY | 2024-09-25 12:03 | XMS_ITS | Encounter Summary ---
Author Organization [facility] Facility Care Team Providers Care Hemmer Lockstitch Name Role Phone Unavailable Primary Care Provider Unavailabl e Encounter Details Date Type Department Care Team (Late st Contact Info) Description 08/18/2016 12:27 PM CUTTING AND PRINTING MACHINE OPERATOR - 08/18/2016 11:59 PM CUTTING AND PRINTING MACHINE OPERATOR [facility] [address] [facility] [phone] [place] [address] Encounter for issue of repeat prescription; Gonococcal infection Social History Tobacco Use Types Packs/Day Years Used Date Smoking Tobacco: Never Assessed Comments Unknown Sex and Gender Information Value Date Recorded Sex Assigned at Not on file Legal Sex Female 1:00 AM CUTTING AND PRINTING MACHINE OPERATOR Gender Identity Not on file Sexual Orientation Not on file documented as of this encounter Medications at Time of Discharge albuterol HFA (PROVENTIL HFA,VENTOLIN HFA,PROAIR HFA) 90 mcg/actuation inhaler INHALE 1-2 PUFFS EVERY 4-6 HOURS NEEDED AND DIRECTED. for asthma 04/24/2014 medroxyPROGESTER one (medroxyPROGESTE Isidro) 150 mg/mL injection Inject into the muscle as instructed 10/02/2014 2 ru488-tlam-keaut acid ( 19) 29 mg iron- 1 mg tablet,chewable CHEW AND SWALLOW 1 TABLET DAILY. as supplement 07/18/2014 2 sertraline (ZOLOFT) 25 mg tablet Take 1 Taablet Daily for Depression 08/12/2016 2 documented as of this encounter Plan of Treatment Not on file documented as of this encounter Visit Diagnoses Diagnosis Encounter for issue of repeat prescription Gonococcal infection Gonococcal infection (acute) of lower genitourinary tract documented in this encounter
--- OUTSIDE RECORDS SUMMARY | 2024-09-25 12:03 | XMS_ITS | Encounter Summary ---
Author Organization [facility] Healthcare Address [address] [place] [address] Care Team Providers Care Administrative Services Coordinator Name Role Phone Aicha Bucio NP Primary Care Provider Encounter Details Date Type Department Care Team (Late st Contact Info) Description 02/06/2017 1:17 PM CDT - 02/06/2017 3:09 PM CDT Emergency [facility] Emergency Department [address] [place] [address] Randi Jose NP [address] [place] [address] Junior Hamlin MD [facility] [place] [address] Discharge Disposition: Discharge to home or self care Social History Tobacco Use Types Packs/Day Years Used Date Smoking Tobacco: Never Assessed Comments Unknown Sex and Gender Information Value Date Recorded Sex Assigned at Not on file Legal Sex Female 1:00 AM SUPERVISOR CLOTH WINDING Gender Identity Not on file Sexual Orientation Not on file documented as of this encounter Medications at Time of Discharge albuterol HFA (PROVENTIL HFA,VENTOLIN HFA,PROAIR HFA) 90 mcg/actuation inhaler INHALE 1-2 PUFFS EVERY 4-6 HOURS NEEDED AND DIRECTED. for asthma 04/24/2014 medroxyPROGESTER one (medroxyPROGESTE Isidro) 150 mg/mL injection Inject into the muscle as instructed 10/02/2014 2 dx185-utlf-tliaa acid ( 19) 29 mg iron- 1 mg tablet,chewable CHEW AND SWALLOW 1 TABLET DAILY. as supplement 07/18/2014 2 sertraline (ZOLOFT) 25 mg tablet Take 1 Taablet Daily for Depression 08/12/2016 2 documented as of this encounter Discharge Disposition Disposition Code Departure Means Destination Discharge to home or self care documented in this encounter Plan of Treatment Not on file documented as of this encounter Procedures Procedure Name Priority Date/Time Associated Diagnosis Comments TRICHOMONAS ANTIGEN STAT 02/06/2017 2 :15 PM CDT N. GONORRHOEAE NA AMP, URINE STAT 02/06/2017 1:50 PM CDT CHLAMYDIA TRACHOMATIS BY NA AMP, URINE STAT 02/06/2017 1:50 PM CDT URINALYSIS AND REFLEX TO MICROSCOPIC AND CULTURE STAT 02/06/2017 1:50 PM CDT URINALYSIS, MICROSCOPIC ONLY STAT 02/06/2017 1:50 PM CDT documented in this encounter Results * Trichomonas Antigen (02/06/2017 2:15 PM CDT) Pathologist [facility] Trichomonas ag, fld Negative Negative ZAKI CHAIREZ Vaginal 02/06/2017 2:15 PM CDT 02/06/2017 2:34 PM CDT Randi Jose NP LAB BLOOD ORDERABLES Final Result ZAKI [address] [address] Department [place] [address] * Chlamydia trachomatis by NA Amp, urine (02/06/2017 1:50 PM CDT) Pathologist [facility] C. trachomatis RNA Negative Negative ZAKI Comment: Interpretive Data This test has been developed to maximize the sensitivity of detection of infection while minimizing false positives, with the combined goals of enabling treatment of infection and interrupting the spread of infection, and is intended for medical purposes. Any result should be interpreted together with the clinical presentation and risk assessment, particularly the prevalence of infection in the patient's demographic group. ??Significant discrepancies should be evaluated by additional measures. Note - Amplification testing on urine specimens was developed and its performance characteristics were determined by [facility]. This testing has not been cleared or approved by the Food and Drug Administration. Current Interpretive Data was last revised on 2016 Urine/Blood 02/06/2017 1:50 PM CDT 02/06/2017 2:05 PM CDT Randi Jose NP LAB URINE ORDERABLES Final Result Performing Organization Address [facility] de Phone Number ZAKI [address] [address] [facility] [place] [address] * N. Gonorrhoeae NA Amp, urine (02/06/2017 1:50 PM CDT) N. gonorrhoeae RNA Negative Negative ZAKI CHAIREZ Comment: Interpretive Data This test has been developed to maximize the sensitivity of detection of infection while minimizing false positives, with the combined goals of enabling treatment of infection and interrupting the spread of infection, and is intended for medical purposes. Any result should be interpreted together with the clinical presentation and risk assessment, particularly the prevalence of infection in the patient's demographic group. ??Significant discrepancies should be evaluated by additional measures. -- Note - Amplification testing on urine specimens was developed and its performance characteristics were determined by [facility]. This testing has not been cleared or approved by the Food and Drug Administration. Current Interpretive Data was last revised on 2016 Urine/Blood 02/06/2017 1:50 PM CDT 02/06/2017 2:05 PM CDT Randi Jose NP LAB URINE ORDERABLES Final Result Performing Organization Address [facility] Co de Phone Number ZAKI [phone] [address] [place] [address] * (ABNORMAL) Urinalysis, microscopic (02/06/2017 1:50 PM CDT) RBC, ur >50(H) 0 - 3 /HPF [facility] CH WBC, ur 12(H) 0 - 5 /HPF [facility] CH Bacteria, ur 0 [facility] CH Epithelial cells, renal, ur 0 0 - 0 /HPF [facility] CH Epithelial cells, squamous, ur 1 /LPF [facility] CH Mucus, ur Present [facility] CH Urine/Blood 02/06/2017 1:50 PM CDT 02/06/2017 2:05 PM CDT Randi Jose NP LAB URINE ORDERABLES Final Result ZAKI CHAIREZ [address] [address] [place] [address] * (ABNORMAL) Urinalysis reflex to microscopic and culture (02/06/2017 1:50 PM CDT) Color, ur Yellow [facility] CH Clarity, ur Hazy [facility] CH Specific gravity, ur 1.014 1.001 - 1.033 [facility] CH pH, ur 8.0 5.0 - 8.0 [facility] CH Protein, ur ql Negative Negative [facility] CH Glucose, ur ql Negative Negative [facility] CH Ketones, ur Negative Negative [facility] CH Bilirubin, ur Negative Negative [facility] CH Blood, ur 3+(A) Negative [facility] CH Urobilinogen, ur <2.0 <2.0 [facility] CH Nitrites, ur Negative Negative [facility] CH Leukocyte esterase, ur Negative Negative [facility] CH Urine/Blood 02/06/2017 1:50 PM CDT 02/06/2017 2:05 PM CDT Randi Jose NP LAB MICROBIOLOGY - G ENERAL ORDERABLES Final Result ZAKI CHAIREZ [address] [address] [place], [place] [id number] documented in this encounter Visit Diagnoses Not on filedocumented in this encounter Care Teams Administrative Services Coordinator Relationship Specialty Start Date End Date Aicha Bucio NP PCP - General 02/06/17 02/23/17 documented as of this encounter
--- OUTSIDE RECORDS SUMMARY | 2024-09-25 12:03 | XMS_ITS | Encounter Summary ---
Author Organization [facility] Healthcare Address [address] [place] [address] Care Team Providers Care Master Merchandiser Name Role Phone Aicha Bucio NP Primary Care Provider Encounter Details Date Type Department Care Team (Late st Contact Info) Description 06/25/2017 3:10 PM CDT - 06/25/2017 4:18 PM CDT Emergency [facility] Emergency Department [address] [place] [phone] Jesus Reese MD [address] [place] [address] Discharge Disposition: Discharge to home or self care Social History Tobacco Use Types Packs/Day Years Used Date Smoking Tobacco: Never Assessed Comments Unknown Sex and Gender Information Value Date Recorded Sex Assigned at Not on file Legal Sex Female 1:00 AM 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 for asthma 04/24/2014 medroxyPROGESTER one (medroxyPROGESTE Isidro) 150 mg/mL injection Inject into the muscle as instructed 10/02/2014 2 ui954-ibmp-vauyh acid ( 19) 29 mg iron- 1 [...] on filedocumented in this encounter Care Teams Master Merchandiser Relationship Specialty Start Date End Date Aicha Bucio NP PCP - General 06/25/17 10/02/21 documented as of this encounter
--- OUTSIDE RECORDS SUMMARY | 2024-09-25 12:03 | XMS_ITS | Encounter Summary ---
Author Organization [facility] Healthcare Address [address] [place] [address] Care Team Providers Care Clinical Evaluator Name Role Phone Aicha Bucio NP Primary Care Provider [phone] Reason for Visit * Reason Comments Eye Irritation Encounter Details Date Type Department Care Team (Late st Contact Info) Description 09/02/2017 11:56 AM GENERAL PEDIATRICIAN - 09/02/2017 3:02 PM GENERAL PEDIATRICIAN Emergency [facility] Emergency Department [address] [place] [phone] Discharge Disposition: Left without being seen Social History Tobacco Use Types Packs/Day Years Used Date Smoking Tobacco: Every Day Smokeless Tobacco: Never Comments No Sex and Gender Information Value Date Recorded Sex Assigned at Not on file Legal Sex Female 1:00 AM GENERAL PEDIATRICIAN Gender Identity Not on file Sexual Orientation Not on file documented as of this encounter Last Filed Vital Signs Vital Sign Reading Time Taken Comments Blood Pressure 121/75 09/02/2017 12:04 PM GENERAL PEDIATRICIAN Pulse 85 09/02/2017 12:04 PM GENERAL PEDIATRICIAN Temperature 36.8 ??C (98.2 ??F) 09/02/2017 12:[address] Respiratory Rate 18 09/02/2017 12:04 PM GENERAL PEDIATRICIAN Oxygen Saturation 99% 09/02/2017 12:04 PM GENERAL PEDIATRICIAN Inhaled Oxygen Concentration - - Weight 86.2 kg (190 lb) 09/02/2017 12:04 PM GENERAL PEDIATRICIAN Height 162.6 cm (5' 4 ) 09/02/2017 12:04 PM GENERAL PEDIATRICIAN Body Mass Index 32.61 09/02/2017 12:04 PM GENERAL PEDIATRICIAN documented in this encounter Medications at Time of Discharge albuterol HFA (PROVENTIL HFA,VENTOLIN HFA,PROAIR HFA) 90 mcg/actuation inhaler INHALE 1-2 PUFFS EVERY 4-6 HOURS NEEDED AND DIRECTED. for asthma 04/24/2014 medroxyPROGESTER one (medroxyPROGESTE Isidro) 150 mg/mL injection Inject into the muscle as instructed 10/02/2014 2 mg724-hayf-iasav acid ( 19) 29 mg iron- 1 mg tablet,chewable CHEW AND SWALLOW 1 TABLET DAILY. as supplement 07/18/2014 2 sertraline (ZOLOFT) 25 mg tablet Take 1 Taablet Daily for Depression 08/12/2016 2 documented as of this encounter Discharge Disposition Disposition Code Departure Means Destination Left without being seen documented in this encounter ED Notes * Devora Sparks, RN - 09/02/2017 12:05 PM CST Pt reports left eye irritation and drainage x 2 days. RAL PEDIATRICIAN documented in this encounter Plan of Treatment Not on file documented as of this encounter Visit Diagnoses Not on filedocumented in this encounter Care Teams Clinical Evaluator Relationship Specialty Start Date End Date Aicha Bucio NP PCP - General 06/25/17 10/02/21 documented as of this encounter
--- OUTSIDE RECORDS SUMMARY | 2024-09-25 12:03 | XMS_ITS | Encounter Summary ---
Author Organization [facility] Address [address] [place] [address] Phone Care Team Providers Care Sanding Machine Buffer Name Role Phone Citlaly Ramos DO Primary Care Provider [phone] Reason for Referral * Diagnostic Imaging (Routine) - Closed Specialty Diagnoses / Procedures Referred By Norm benjamin Referred To Contact Radiology Diagnoses Hydronephrosis, unspecified hydronephrosis type Kidney stones Procedures CT Abdomen Pelvis WO Contrast Tye Woods MD Phone: tel: fax: [address] [address] Referral ID Status Reason Start Date Expiration Date Visits Re quested Visits Authorized [id number] Closed 10/03/2021 11/02/2022 1 1 DRY HELPER Reason for Visit * Reason Comments New Patient kidney stone * Consultation (Routine) - Closed Specialty Diagnoses / Procedures Referred By Norm benjamin Referred To Contact Urology Diagnoses Hydronephrosis, unspecified hydronephrosis type Kidney stones Referral, Self [facility] (All Locations) Referral ID Status Reason Start Date Expiration Date V isits Requested Visits Authorized [id number] Closed Specialty Services Required 09/27/2021 10/27/2022 99 99 Encounter Details Date Type Department Care Team (Late st Contact Info) Description 10/03/2021 9:00 AM FOUNDRY HELPER Office Visit [facility]) - [facility] Urology [address] [facility] [address] [address] Tye Woods MD [address] [place] [address] Hydronephrosis, unspecified hydronephrosis type (Primary Dx); Kidney stones Social History Tobacco Use Types Packs/Day Years Used Date Smoking Tobacco: Every Day Smokeless Tobacco: Never Comments No Sex and Gender Information Value Date Recorded Sex Assigned at Not on file Legal Sex Female 1:00 AM FOUNDRY HELPER Gender Identity Not on file Sexual Orientation Not on file documented as of this encounter Last Filed Vital Signs Vital Sign Reading Time Taken Comments Blood Pressure 120/72 10/03/2021 9:13 AM FOUNDRY HELPER Pulse 98 10/03/2021 9:13 AM FOUNDRY HELPER Temperature 36.8 ??C (98.2 ??F) 10/03/2021 9:13 AM CS T Respiratory Rate - - Oxygen Saturation - - Inhaled Oxygen Concentration - - Weight 86.2 kg (190 lb) 10/03/2021 9:13 AM FOUNDRY HELPER Height 162.6 cm (5' 4 ) 10/03/2021 9:13 AM FOUNDRY HELPER Body Mass Index 32.61 10/03/2021 9:13 AM FOUNDRY HELPER documented in this encounter Progress Notes * Tye Woods MD - 10/03/2021 9:00 AM CST Urology History and Physical Consult for renal stones, requested by PCP Dr. Citlaly Ramos, HPI: Yevgeniyreshasha Rivers is a 31 y.o. female here for consultation for renal stones in her HSK. She givehistory of known horse shoe kidney since age 26. History of right renal stones in 2018 and in January of last year. Had ESWL both times. Last one with Dr. Zamora at [facility] in January 2021 and has a ureteral stent still present. Apparently insurance was not taken by previous [...] events. Immunology: Negative for fever. Objective: Vitals: BP 120/72 Pulse 98 Temp 36.8 ??C (98.2 ??F) Ht 162.6 cm (5' 4 ) Wt 86.2 kg (190 lb) BMI 32.61 kg/m?? Physical exam: General: does not appear in [...] appearance is normal; abdomen soft; no abdominal tenderness; no abdominal distention; no hernia. Tenderness right cva. Extremities: (R,L) pink and warm; no edema Musculoskeletal: normal range of motion present Neurology: patient is alert; cranial nerves II - XII intact Mood: has normal mood and affect Lab/Radiology/Diagnostic Review: Reviewed. US KIDNEYS/BLADDER (RETROPERITONEAL COMPLETE) Anatomical Region Laterality Modality Abdomen -- Ultrasound Narrative Performed by [facility] RADIOLOGY RENAL ULTRASOUND HISTORY: Horseshoe kidney [...] placed or performed in visit on 10/03/21 POCT urinalysis dipstick Result Value Ref Range Glucose, ur, POC Negative Negative mg/dL Ketones, ur, POC Negative Negative Blood, ur, POC 3+ (A) Negative pH, ur, POC 7.0 5.0 - 8.0 Protein, ur, POC 3+ (A) Negative Nitrite, ur, POC Negative Negative Leukocytes, ur, POC 2+ (A) Negative Lot Number x Assessment and Plan: History of HSK with right renal stones and has a retained ureteral stent since January of last year. Treated at [facility] before. Has flank pain. Requested CT abd and pelvis, urine culture, cbc and bmp. Followup in 1 week with results and to discuss further management. Thank you for the consult. Tye Woods MD Urology Division [facility] Office [phone] 10/03/2021 9:27 AM DRY HELPER documented in this encounter Miscellaneous Notes * Addendum Note - Michelle Luz - 10/03/2021 9:00 AM CSTAddended by: MICHELLE LUZ on: 10/03/2021 10:31 AM Modules accepted: Orders DRY HELPER documented in this encounter Plan of Treatment Not on file documented as of this encounter Procedures Procedure Name Priority Date/Time Associated Diagnosis Comments POCT URINALYSIS DIPSTICK Routine 10/03/2021 9:15 AM FOUNDRY HELPER Hydronephrosis, unspecified hydronephrosis type Kidney stones documented in this encounter Results * CT Abdomen Pelvis WO Contrast (10/14/2021 8:50 AM FOUNDRY HELPER) Anatomical Region Laterality Modality Body N/A Computed Tomogra phy 10/14/2021 11:5 4 AM FOUNDRY HELPER Impressions 10/14/2021 11:54 AM FOUNDRY HELPER 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 RIGHT DOUBLE-J STENT WELL-POSITIONED. 2 SMALL CALCULI LOWER POLE RIGHT KIDNEY. MINUTE CALCULUS UPPER POLE LEFT KIDNEY. Electronically signed by: Nelson Bonilla M.D. Narrative 10/14/2021 11:54 AM FOUNDRY HELPER EXAMINATION: CT ABDOMEN PELVIS WO CONTRAST dated 10/14/2021 7:30 AM HISTORY: 31-year-old woman history of kidney stones with hydronephrosis and flank pain retained stent right side TECHNIQUE: Spiral noncontrast CT with multiplanar reconstructions FINDINGS: Correlation is made with an outside ultrasound of the kidneys dated 09/24/2021 demonstrating hydronephrosis or renal calculi. Images do not the report available. Animal Cytologist radiograph demonstrates a double-J stent on the [...] calculi. Images do not the report available. Animal Cytologist radiograph demonstrates a double-J stent on the [...] Woods MD IMG CT PROCEDURES Final Result * Basic metabolic panel (10/03/2021 9:55 AM FOUNDRY HELPER) Sodium 139 135 - 145 mmol/L [facility] Potassium, pl 4.0 3.3 - 4.9 mmol/L [facility] Chloride 103 97 - 110 mmol/L [facility] CO2 26 22 - 32 mmol/L [facility] Anion gap 10 2 - 15 mmol/L [facility] BUN 9 8 - 25 mg/dL [facility] Creatinine 0.76 0.60 - 1.10 mg/dL [facility] Glucose 86 70 - 199 mg/dL [facility] Comment: Interpretive Data Fasting glucose >/= 126 [...] 2017. Calcium 9.3 8.5 - 10.3 mg/dL [facility] Blood 10/03/2021 9:55 AM FOUNDRY HELPER 10/03/2021 11:42 AM FOUNDRY HELPER Tye Woods MD LAB BLOOD ORDERABLES Fi nal Result ZAKI [id number] [address] Department [place] [address] * (ABNORMAL) CBC with auto differential (10/03/2021 9:55 AM FOUNDRY HELPER) WBC 5.4 3.8 - 9.9 K/cumm [facility] Hgb 11.1(L) 11.9 - 15.5 g/dL [facility] Hct 35.5(L) 35.6 - 45.5 % [facility] Plt 413(H) 150 - 400 K/cumm [facility] MPV 9.8 9.1 - 12.3 fL [facility] RBC 4.51 3.90 - 5.20 M/cumm [facility] MCV 78.7(L) 81.3 - 96.4 fL [facility] MCH 24.6(L) 27.1 - 33.3 pg [facility] MCHC 31.3(L) 32.3 - 35.7 g/dL [facility] RDW CV 18.4(H) 11.1 - 14.9 % [facility] RDW SD 52.7(H) 35.7 - 48.1 fL [facility] NRBC abs 0.00 0.00 - 0.01 K/cumm [facility] Blood 10/03/2021 9:55 AM FOUNDRY HELPER 10/03/2021 11:42 AM FOUNDRY HELPER Tye Woods MD LAB BLOOD ORDERABLES Fi nal Result [facility] [address] [address] Department of Laboratories [place] [phone] * (ABNORMAL) POCT urinalysis dipstick (10/03/2021 9:15 AM FOUNDRY HELPER) Glucose, ur, POC Negative Negative mg/dL Ketones, ur, POC Negative Negative Blood, ur, POC 3+(A) Negative pH, ur, POC 7.0 5.0 - 8.0 Protein, ur, POC 3+(A) Negative Nitrite, ur, POC Negative Negative Leukocytes, ur, POC 2+(A) Negative Lot Number x Urine 10/03/2021 9:15 AM FOUNDRY HELPER us Tye Woods MD POINT OF CARE TEST ORDE RABFANNY Final Result * Urine culture Urine, clean voided (10/03/2021 9:14 AM FOUNDRY HELPER) Pathologist [facility] Report Final Report: Growth indicative of contamination with periurethral belle. Please submit a new specimen with special attention given to the collection process and to prompt transport to the laboratory. ZAKI CHAIREZ Comment:Testing performed by : [facility], [address] [place]., [address] Organism GROWTH INDICATES CONTAM WITH PERIURETHRAL BELLE. ZAKI CHAIREZ Urine, clean voided 10/03/2021 9:14 AM FOUNDRY HELPER 10/03/2021 11:13 PM FOUNDRY HELPER Narrative ZAKI CHAIREZ - 10/05/2021 11:53 AM FOUNDRY HELPER Testing performed by [facility] Microbiology Laboratory ([phone]) us Tye Woods MD LAB MICROBIOLOGY - GENE RAL ORDERABLES Final Result ZAKI [id number] [address] Department [place] [address] documented in this encounter Visit Diagnoses Diagnosis Hydronephrosis, unspecified hydronephrosis type- Primary Kidney stones Calculus of kidney Hydronephrosis, unspecified hydronephrosis type Kidney stones Calculus of kidney Hydronephrosis, unspecified hydronephrosis type Kidney stones Calculus of kidney documented in this encounter Orders Outpatient Referral Count Last Ordered Date st Ordered Date AMB REFERRAL TO UROLOGY 1 10/03/2021 documented in this encounter Care Teams Sanding Machine Buffer Relationship Specialty Start Date End Date Citlaly Ramos DO [address] [place] [id number] PCP - General Family Medicine 10/03/21 documented as of this encounter
--- OUTSIDE RECORDS SUMMARY | 2024-09-25 12:04 | XMS_ITS | Encounter Summary ---
Author Organization [facility] Facility Care Team Providers Care Export Coordinator Name Role Phone Unavailable Primary Care Provider Unavailabl e Encounter Details Date Type Department Care Team (Late st Contact Info) Description 03/18/2016 12:39 PM CDT - 03/18/2016 1:22 PM CDT Hospital Encounter [facility] Sam Jeffrey MD [address] [facility] [address] [place] [address] Pelvic and perineal pain Social History Tobacco Use Types Packs/Day Years Used Date Smoking Tobacco: Never Assessed Comments Unknown Sex and Gender Information Value Date Recorded Sex Assigned at Not on file Legal Sex Female 1:00 AM PROPERTY AND CASUALTY INSURANCE AGENT Gender Identity Not on file Sexual Orientation Not on file documented as of this encounter Medications at Time of Discharge albuterol HFA (PROVENTIL HFA,VENTOLIN HFA,PROAIR HFA) 90 mcg/actuation inhaler INHALE 1-2 PUFFS EVERY 4-6 HOURS NEEDED AND DIRECTED. for asthma 04/24/2014 medroxyPROGESTER one (medroxyPROGESTE Isidro) 150 mg/mL injection Inject into the muscle as instructed 10/02/2014 2 [id number] acid ( 19) 29 mg iron- 1 mg tablet,chewable CHEW AND SWALLOW 1 TABLET DAILY. as supplement 07/18/2014 2 documented as of this encounter Plan of Treatment Not on file documented as of this encounter Visit Diagnoses Diagnosis Pelvic and perineal pain documented in this encounter
--- OUTSIDE RECORDS SUMMARY | 2024-09-25 12:04 | XMS_ITS | Encounter Summary ---
Author Organization [facility] Facility Care Team Providers Care Co Founder And Chief Strategy Officer Name Role Phone Unavailable Primary Care Provider Unavailabl e Encounter Details Date Type Department Care Team (Late st Contact Info) Description 08/12/2016 9:53 AM DRAWING MACHINE OPERATOR - 08/12/2016 11:[address] [facility] Hospital Encounter [facility] Kaya Jaramillo MD [address] [phone] [place], [place] [id number] [place] [address] [facility] [address] [place] [address] Encounter for gynecological examination without abnormal finding; Major depressive disorder, single episode; Nicotine dependence, uncomplicated Social History Tobacco Use Types Packs/Day Years Used Date Smoking Tobacco: Never Assessed Comments Unknown Sex and Gender Information Value Date Recorded Sex Assigned at Not on file Legal Sex Female 1:00 AM DRAWING MACHINE OPERATOR Gender Identity Not on file Sexual Orientation Not on file documented as of this encounter Medications at Time of Discharge albuterol HFA (PROVENTIL HFA,VENTOLIN HFA,PROAIR HFA) 90 mcg/actuation inhaler INHALE 1-2 PUFFS EVERY 4-6 HOURS NEEDED AND DIRECTED. for asthma 04/24/2014 medroxyPROGESTER one (medroxyPROGESTE Isidro) 150 mg/mL injection Inject into the muscle as instructed 10/02/2014 2 [id number] acid ( 19) 29 mg iron- 1 mg tablet,chewable CHEW AND SWALLOW 1 TABLET DAILY. as supplement 07/18/2014 2 sertraline (ZOLOFT) 25 mg tablet Take 1 Taablet Daily for Depression 08/12/2016 2 documented as of this encounter Plan of Treatment Not on file documented as of this encounter Procedures Procedure Name Priority Date/Time Associated Diagnosis Comments N. GONORRHOEAE, CHLAMYDIA TRACHOMATIS AMPLIFICATION TEST, CDR Routine 08/12/2016 12:11 PM DRAWING MACHINE OPERATOR documented in this encounter Results * Neisseria gonorrhoeae, Chlamydia trachomatis amplification test (08/12/2016 12:11 PM DRAWING MACHINE OPERATOR) Endocervical (Unknown) 08/12/2016 12:11 PM DRAWING MACHINE OPERATOR 08/12/2016 4:19 PM DRAWING MACHINE OPERATOR Impressions CDR HISTORICAL RESULTS - 08/13/2016 12:39 PM DRAWING MACHINE OPERATOR Testing performed by the [employer] APTIMA Combo 2 Assay. This nucleic acid amplification test (NAAT) detects ribosomal RNA (rRNA) from Chlamydia trachomatis and Neisseria gonorrhoeae using target capture,and Instrument Engineer-Mediated Amplification (TMA). This test is approved by the [place] Food and Drug Administration for endocervical, vaginal, and male urethral swab specimens, in addition to male and female urine specimens. The performance characteristics for these specimen types have been verified by the [facility].The performance characteristics of this assay for pharyngeal and rectal specimens collected from cervical swab collection devices have been validated and verified by the [facility]. Verification studies support a lack of cross reactivity with other Neisseria species considered normal oropharyngeal bacterial marco. Rectal swab specimens containing excess stool may be inhibitory and result in false negatives for Chlamydia trachomatis or Neisseria gonorrhoeae. The performance characteristics of this test have not been evaluated in women or individuals less than 16 years of age. Narrative CDR HISTORICAL RESULTS - 08/13/2016 12:39 PM DRAWING MACHINE OPERATOR Negative for: ??Chlamydia trachomatis rRNA Positive for: ??Neisseria gonorrhoeae rRNA us Historical Provider LAB MICROBIOLOGY - GENERA L ORDERABLES Final Result CDR HISTORICAL RESULTS documented in this encounter Visit Diagnoses Diagnosis Encounter for gynecological examination without abnormal finding Major depressive disorder, single episode Major depressive disorder, single episode, unspecified Nicotine dependence, uncomplicated documented in this encounter
--- OUTSIDE RECORDS SUMMARY | 2024-09-25 12:04 | XMS_ITS | Encounter Summary ---
Author Organization [facility] Facility Care Team Providers Care Television Director Name Role Phone Unavailable Primary Care Provider Unavailabl e Encounter Details Date Type Department Care Team (Late st Contact Info) Description 09/18/2015 - 09/18/2015 11:59 PM CONSTRUCTION PROJECT ENGINEER Hospital Encounter [facility] Montserrat Woodall MD [address] [address] Social History Tobacco Use Types Packs/Day Years Used Date Smoking Tobacco: Never Assessed Comments Unknown Sex and Gender Information Value Date Recorded Sex Assigned at Not on file Legal Sex Female 1:00 AM CONSTRUCTION PROJECT ENGINEER Gender Identity Not on file Sexual Orientation Not on file documented as of this encounter Medications at Time of Discharge albuterol HFA (PROVENTIL HFA,VENTOLIN HFA,PROAIR HFA) 90 mcg/actuation inhaler INHALE 1-2 PUFFS EVERY 4-6 HOURS NEEDED AND DIRECTED. for asthma 04/24/2014 medroxyPROGESTER one (medroxyPROGESTE Isidro) 150 mg/mL injection Inject into the muscle as instructed 10/02/2014 2 [id number] acid ( 19) 29 mg iron- 1 mg tablet,chewable CHEW AND SWALLOW 1 TABLET DAILY. as supplement 07/18/2014 2 documented as of this encounter Plan of Treatment Not on file documented as of this encounter Visit Diagnoses Not on filedocumented in this encounter
--- OUTSIDE RECORDS SUMMARY | 2024-09-25 12:05 | XMS_ITS | Encounter Summary ---
Author Organization [facility] Facility Care Team Providers Care Application Development Specialist Name Role Phone Unavailable Primary Care Provider Unavailabl e Encounter Details Date Type Department Care Team (Latest Contact Info) Description 05/22/2015 2:59 PM CDT - 05/22/2015 4:00 PM CDT Hospital Encounter [facility] Gabriela Fairbanks MD [address] [facility] [address] [place] [phone] Gynecology Encounter for insertion of intrauterine contraceptive device; examination or test, negative result Social History Tobacco Use Types Packs/Day Years Used Date Smoking Tobacco: Never Assessed Comments Unknown Sex and Gender Information Value Date Recorded Sex Assigned at Not on file Legal Sex Female 1:00 AM SCHOOL PSYCHOLOGIST ASSISTANT Gender Identity Not on file Sexual Orientation Not on file documented as of this encounter Medications at Time of Discharge albuterol HFA (PROVENTIL HFA,VENTOLIN HFA,PROAIR HFA) 90 mcg/actuation inhaler INHALE 1-2 PUFFS EVERY 4-6 HOURS NEEDED AND DIRECTED. for asthma 04/24/2014 medroxyPROGESTER one (medroxyPROGESTE Isidro) 150 mg/mL injection Inject into the muscle as instructed 10/02/2014 2 [id number] acid ( 19) 29 mg iron- 1 mg tablet,chewable CHEW AND SWALLOW 1 TABLET DAILY. as supplement 07/18/2014 2 documented as of this encounter Plan of Treatment Not on file documented as of this encounter Procedures Procedure Name Priority Date/Time Associated Diagnosis Comments URINE CHORIONIC GONADOTROPIN (HCG) Routine 05/22/2015 3:20 PM CDT DISCHARGE LABORATORY CUMULATIVE REPORT 05/22/2015 documented in this encounter Results * Urine chorionic gonadotropin (HCG) (05/22/2015 3:20 PM CDT) HCG, ur Negative HISTORICAL RESULTS Urine 05/22/2015 3:20 PM CDT Historical Provider LAB BLOOD ORDERABLES Becky l Result HISTORICAL RESULTS * DISCHARGE LABORATORY CUMULATIVE REPORT (05/22/2015) Narrative 05/22/2015 Ordered by an unspecified provider. Historical Provider LAB BLOOD ORDERABLES Becky l Result documented in this encounter Visit Diagnoses Diagnosis Encounter for insertion of intrauterine contraceptive device examination or test, negative result documented in this encounter
--- OUTSIDE RECORDS SUMMARY | 2024-09-25 12:05 | XMS_ITS | Encounter Summary ---
Author Organization [facility] Facility Care Team Providers Care Mobile Home Set Up Person Name Role Phone Unavailable Primary Care Provider Unavailabl e Encounter Details Date Type Department Care Team (Late st Contact Info) Description 07/23/2015 - 07/23/2015 11:59 PM AIR CONDITIONER INSTALLER HELPER Hospital Encounter [facility] Montserrat Woodall MD [address] [address] Social History Tobacco Use Types Packs/Day Years Used Date Smoking Tobacco: Never Assessed Comments Unknown Sex and Gender Information Value Date Recorded Sex Assigned at Not on file Legal Sex Female 1:00 AM AIR CONDITIONER INSTALLER HELPER Gender Identity Not on file Sexual Orientation Not on file documented as of this encounter Medications at Time of Discharge albuterol HFA (PROVENTIL HFA,VENTOLIN HFA,PROAIR HFA) 90 mcg/actuation inhaler INHALE 1-2 PUFFS EVERY 4-6 HOURS NEEDED AND DIRECTED. for asthma 04/24/2014 medroxyPROGESTER one (medroxyPROGESTE Isidro) 150 mg/mL injection Inject into the muscle as instructed 10/02/2014 2 [id number]-lysm-adqds acid ( 19) 29 mg iron- 1 mg tablet,chewable CHEW AND SWALLOW 1 TABLET DAILY. as supplement 07/18/2014 2 documented as of this encounter Plan of Treatment Not on file documented as of this encounter Visit Diagnoses Not on filedocumented in this encounter
--- OUTSIDE RECORDS SUMMARY | 2024-09-25 12:06 | XMS_ITS | Encounter Summary ---
Author Organization [facility] Facility Care Team Providers Care Sales Planner Name Role Phone Unavailable Primary Care Provider Unavailabl e Encounter Details Date Type Department Care Team (Late st Contact Info) Description 08/27/2014 3:13 PM GRANITE CUTTER APPRENTICE - 08/29/2014 11:21 AM GRANITE CUTTER APPRENTICE Hospital Encounter [facility] Bhragavi Mtz MD [facility] [address] [address] Puerperal endometritis, condition or complication; Asthma; Elevated blood-pressure reading without diagnosis of hypertension; History of allergy to other anti-infective agent Social History Tobacco Use Types Packs/Day Years Used Date Smoking Tobacco: Never Assessed Comments Unknown Sex and Gender Information Value Date Recorded Sex Assigned at Not on file Legal Sex Female 1:00 AM GRANITE CUTTER APPRENTICE Gender Identity Not on file Sexual Orientation Not on file documented as of this encounter Last Filed Vital Signs Vital Sign Reading Time Taken Comments Blood Pressure - - Pulse - - Temperature - - Respiratory Rate - - Oxygen Saturation - - Inhaled Oxygen Concentration - - Weight 88.5 kg (195 lb 1.4 oz) 08/27/2014 3:24 P M GRANITE CUTTER APPRENTICE Height 162.6 cm (5' 4 ) 08/27/2014 3:24 PM GRANITE CUTTER APPRENTICE Body Mass Index 33.49 08/27/2014 3:24 PM GRANITE CUTTER APPRENTICE documented in this encounter Discharge Summaries * ProviderJermaine MD - 08/29/2014 12:00 AM CST Patient: Jumana Rivers Reg No: [id number] H #: [id number] Admit Dt.: 08/27/2014 Dischg Dt: 08/29/2014 : 1990 Room No: [id number] Attending: Isaiah Talavera M.D. Dictating: Karissa Conrad M.D. DISCHARGE SUMMARY DISCHARGE DIAGNOSIS (ES): Post endomyometritis. HISTORY OF PRESENT ILLNESS: This is a 24-year-old 2, para 2-0-0-2 who presented [facility] on post day 6 following normal spontaneous vaginal delivery that was complicated by chorioamnionitis. On presentation, she reports having a fever at home to 102 degrees and endorsed foul-smelling vaginal discharge. On examination, she was found to be tender and was thus admitted for presumed endomyometritis. HOSPITAL COURSE: 1. Endomyometritis. The patient was admitted to the Antepartum Service and initiated on triple antibiotic therapy with vancomycin, gentamicin, and clindamycin. Vancomycin was chosen secondary to the patient's history of an allergy to Amoxicillin. She remained on antibiotics for 24 hours and was afebrile for the totality of this 24 hours. Thus, antibiotics were discontinued on 08/28/2014. She was monitored inhouse for another 24 hours and remained afebrile. The patient reported improvement in her abdominal pain and resolution of the foul-smelling discharge prior to discontinuation of the antibiotics. In further evaluation of her reported fever, the patient also had a urinalysis that was negative, as well as an influenza swab that was negative. 2. Gestational hypertension. The patient was noted to have intermittent mild range blood pressures during admission. induced hypertension laboratories were checked and were negative. She denied headaches, vision changes, or right upper quadrant pain and remained normotensive to mild range blood pressures with blood pressures below the threshold to initiate therapy. 3. Mother, baby. The patient was breast feeding and pumping while inhouse. In terms of contraception, she desired initially desired a ParaGard, however, on the day of discharge I recommended selecting an alternative method of contraception given the risk of infection while placing an intrauterine device in the setting of a recent diagnosis of endomyometritis. The patient expressed understanding, and after discussion of all available methods of contraception, selected a Nexplanon. She will be given an appointment in the [facility] to follow up for Nexplanon placement after discharge. She was offered a bridging method including depo or the progesterone only minipill and she declined. DISCHARGE ACTIVITIES: As tolerated. Continue pelvic rest for six weeks. DISCHARGE DIET: Regular. FOLLOW-UP: Follow up in the [facility]. You will be called and scheduled for your appointment. Karissa Conrad M.D. Isaiah Talavera M.D. [facility]/tala #[id number] Editing MT: TD: 08/29/2014 09:06:00 cc: Deshawn Taylor M.D. documented in this encounter Medications at Time of Discharge albuterol HFA (PROVENTIL HFA,VENTOLIN HFA,PROAIR HFA) 90 mcg/actuation inhaler INHALE 1-2 PUFFS EVERY 4-6 HOURS NEEDED AND DIRECTED. for asthma 04/24/2014 [id number] acid ( 19) 29 mg iron- 1 mg tablet,chewable CHEW AND SWALLOW 1 TABLET DAILY. as supplement 07/18/2014 2 documented as of this encounter Plan of Treatment Not on file documented as of this encounter Procedures Procedure Name Priority Date/Time Associated Diagnosis Comments DISCHARGE LABORATORY CUMULATIVE REPORT Routine 08/29/2014 12:00 AM GRANITE CUTTER APPRENTICE PLASMA COMPREHENSIVE METABOLIC PANEL Routine 08/28/2014 9:23 AM GRANITE CUTTER APPRENTICE BLOOD CELL COUNT (CBC) Routine 4 9:23 AM GRANITE CUTTER APPRENTICE URINALYSIS Routine 08/27/2014 2:28 PM GRANITE CUTTER APPRENTICE BLOOD ABO, RH, INDIRECT AB SCREEN Routine 08/27/2014 2:28 PM GRANITE CUTTER APPRENTICE PLASMA COMPREHENSIVE METABOLIC PANEL Routine 08/27/2014 12:20 PM GRANITE CUTTER APPRENTICE BLOOD CELL COUNT (CBC) Routine 4 12:20 PM GRANITE CUTTER APPRENTICE INFLUENZA VIRUS PCR, CDR Routine 08/27/2014 12:00 PM GRANITE CUTTER APPRENTICE ALL MICROBIOLOGY REPORT SECTION Routine 08/27/2014 12:00 AM GRANITE CUTTER APPRENTICE documented in this encounter Results * Discharge Laboratory Cumulative Report (08/29/2014 12:00 AM GRANITE CUTTER APPRENTICE) 08/29/2014 Narrative HISTORICAL RESULTS - 08/29/2014 3:21 PM GRANITE CUTTER APPRENTICE ?[facility] ?Department of Laboratories ? [address] [facility] [address] ? [place] [address] Patient Name: ??JUMANA RIVERS [facility] Rec Number: [id number] Fin Number: ?[id number] Date: ?1990 Sex/Age: ? Female 24 years Admit Date: ?08/27/2014 Discharge Date: 08/29/2014 Doctor: ?Bhargavi Lyons Facility: ?[facility] Location: ?OTHER Chart Printed: 08/29/2014 15:21 ?? * Abnormal ?? C Critical ?? f Footnote ?? ^ Corrected ?? L Low ?? H High ? i Interp Data ?? @ Reference Lab ?Chart Type:Cumulative ? SELECTED ELECTROLYTES ?Test: Sodium ? Plasma Potassium ??Chloride ? Reference: [135-145] ??[3.3-4.9] ? [97-110] ? Units: mmol/L ? mmol/L ?mmol/L 08/28/2014 ?? 09:23:00 ?? 142 ?3.6 ? 107 08/27/2014 ?? 12:20:14 ?? 140 ?3.6 ? 107 ?Test: Total CO2 ??Anion Gap ? Reference: [22-32] ?[0-16] ? Units: mmol/L ? mmol/L 08/28/2014 ?? 09:23:00 ?? 25 ? 10 08/27/2014 ?? 12:20:14 ?? 25 ? 8 ? STANDARD BLOOD CHEMISTRY ?Test: BUN ? Creatinine ?? Total Bilirubin ??Glucose ? Reference: [8-25] ??[0.60-1.10] ??[0.3-1.1] ?[70- 199] ? Units: mg/dL ?? mg/dL ?mg/dL ?mg/dL 08/28/2014 ?? 09:23:00 ?? 4 ??L ?0.62 ? 0.2 ??L ? 126 08/27/2014 ?? 12:20:14 ?? 8 ? 0.59 ??L ?0.3 ?86 ?Test: Total Calcium ??Plasma Total Protein ??Albumin ? Reference: [8.6-10.3] ? [6.5-8.5] ? [3.6- 5.0] ? Units: mg/dL ?g/dL ?g/dL 08/28/2014 ?? 09:23:00 ?? 8.7 ?6.3 ??L ?3.2 ??L 08/27/2014 ?? 12:20:14 ?? 8.6 ?6.9 ? 3.6 ?ENZYMES ?Test: Alkaline Phosphatase ??ALT ?AST ? Reference: [38-126] ?[7-53] ?? [11-47] ? Units: Units/L ? Units/L ??Units/L 08/28/2014 ?? 09:23:00 ?? 77 ?15 ? 17 08/27/2014 ?? 12:20:14 ?? 84 ?21 ? 17 ?URINALYSIS ?Macroscopic ?Test: Color ? Clarity ??Specific [place] ??pH ? Reference: [Yellow] ??[Clear] ??[1.003-1.030] ? [5.0-8.0] ? Units: 08/27/2014 ?? 14:28:07 ?? Yellow ?Clear ?1.020 ? 6.0 ?Test: Albumin ?? Glucose ? Ketones ? Bilirubin ? Reference: [Trace] ?? [Negative] ??[Negative] ??[Negative] ? Units: 08/27/2014 ?? 14:28:07 ?? Negative ??Negative ?Negative ?Negative ?Test: Blood ? Urobilinogen ??Nitrite ? Reference: [Negative] ??[0.0-2.0] ? [Negative] ? Units: ? mg/dL 08/27/2014 ?? 14:28:07 ?? Negative ?2.0 ? Negative ?Test: Leuk Esterase ? Reference: [Negative] ? Units: 08/27/2014 ?? 14:28:07 ?? Negative ? COMPLETE BLOOD COUNT ?Test: WBC ?RBC ?Hgb ? Reference: [3.8-9.8] ??[3.90-5.00] ??[12.1-15.1] ? Units: K/cumm ? M/cumm ? g/dL 08/28/2014 ?? 09:23:00 ?? 10.2 ??H ?4.06 ? 11.0 ??L 08/27/2014 ?? 12:20:14 ?? 11.1 ??H ?4.33 ? 12.1 ?Test: Hct ?Platelet Ct ??MCV ? Reference: [36.1-44.3] ??[140-440] ?[80.0-97.6] ? Units: % ?K/cumm ? fL 08/28/2014 ?? 09:23:00 ?? 34.9 ??L ?336 ?85.8 08/27/2014 ?? 12:20:14 ?? 37.3 ? 322 ?86.2 ?Test: MCH ?MCHC ? RDW ? Reference: [26.7-33.7] ??[32.7-35.5] ??[11.8-14.6] ? Units: pg ? g/dL ? % 08/28/2014 ?? 09:23:00 ?? 27.1 ? 31.6 ??L ?17.4 ??H ? COMPLETE BLOOD COUNT ?Test: MCH ?MCHC ? RDW ? Reference: [26.7-33.7] ??[32.7-35.5] ??[11.8-14.6] ? Units: pg ? g/dL ? % 08/27/2014 ?? 12:20:14 ?? 28.0 ? 32.5 ??L ?17.9 ??H ?Test: MPV ? Reference: [6.8-10.4] ? Units: fL 08/28/2014 ?? 09:23:00 ?? 8.0 08/27/2014 ?? 12:20:14 ?? 8.1 ? AUTOMATED WHITE CELL DIFFERENTIAL ?Test: Neut Pct Auto ??Lymph Pct Auto ??Crane Pct Auto ? Reference: [38.7-74.5] ?[20.0-54.3] ? [4.3-13.5] ? Units: % ?% ? % 08/28/2014 ?? 09:23:00 ?? 61.6 ? 20.6 ?12.4 08/27/2014 ?? 12:20:14 ?? 67.6 ? 15.6 ??L ? 10.9 ?Test: Eos Pct Auto ??Baso Pct Auto ??Neut Abs Auto ? Reference: [0.0-6.0] ? [0.0-3.0] ?[1.8-6.6] ? Units: % ? % ?K/cumm 08/28/2014 ?? 09:23:00 ?? 5.2 ? 0.2 ?6.3 08/27/2014 ?? 12:20:14 ?? 4.7 ? 1.2 ?7.5 ??H ?Test: Lymph Abs Auto ??Crane Abs Auto ??Eos Abs Auto ? Reference: [1.2-3.3] ? [0.2-1.2] ?[0.0-0.5] ? Units: K/cumm ?K/cumm ? K/cumm 08/28/2014 ?? 09:23:00 ?? 2.1 ? 1.3 ??H ? 0.5 08/27/2014 ?? 12:20:14 ?? 1.7 ? 1.2 ?0.5 ?Test: Baso Abs Auto ? Reference: [0.0-0.2] ? Units: K/cumm 08/28/2014 ?? 09:23:00 ?? 0.0 08/27/2014 ?? 12:20:14 ?? 0.1 ? TRANSFUSION MEDICINE ?Test: Indirect Gabby. ??ABO/Rh Pat Interp ? Reference: ? Units: 08/27/2014 ?? 14:28:00 ?? Negative ?O Positive ? MICROBIOLOGY - ALL TESTS ? PROCEDURE: Influenza PCR ?SOURCE: Nasopharyngeal COLLECTED: 08/27/14 ??1200 ? BODY SITE: STARTED: 08/27/14 ??1232 FREE TEXT SOURCE: FINAL REPORT REPORTED: 08/27/14 1433 Flu A target RNA not detected Flu B target RNA not detected * * * ??Interpretive Results ??* * * (1)This test has been performed using the [employer] Xpert Flu Assay. This is a multiplex, real-time reverse transcriptase PCR assay that detects and differentiates influenza A, 2009 H1N1 influenza A, and influenza B viral RNA. ??This assay has been cleared by the US Food and Drug Administration, and its performance characteristics have been verified by the [facility].Current interpretive data was last revised on 2011. ? MICROBIOLOGY - MOLECULAR TESTING ? PROCEDURE: Influenza PCR ?SOURCE: Nasopharyngeal COLLECTED: 08/27/14 ??1200 ? BODY SITE: STARTED: 08/27/14 ??1232 FREE TEXT SOURCE: FINAL REPORT REPORTED: 08/27/14 1433 Flu A target RNA not detected Flu B target RNA not detected * * * ??Interpretive Results ??* * * (1)This test has been performed using the [employer] Xpert Flu Assay. This is a multiplex, real-time reverse transcriptase PCR assay that detects and differentiates influenza A, 2009 H1N1 influenza A, and influenza B viral RNA. ??This assay has been cleared by the US Food and Drug Administration, and its performance characteristics have been verified by the [facility].Current interpretive data was last revised on 2011. ? CANCELLED TESTS Date ?Time ?Test ??Cancel Reason 08/27/2014 ??14:28:00 ??CBC ?? Lab Operations Cancel us Historical Provider LAB BLOOD ORDERABLES Becky paula Result HISTORICAL RESULTS * (ABNORMAL) Plasma comprehensive metabolic panel (08/28/2014 9:23 AM GRANITE CUTTER APPRENTICE) Sodium 142 135 - 145 mmol/L HISTORICAL RESULTS K, pl 3.6 3.3 - 4.9 mmol/L HISTORICAL RESULTS Chloride 107 97 - 110 mmol/L HISTORICAL RESULTS CO2 25 22 - 32 mmol/L HISTORICAL RESULTS A. gap 10 0 - 16 mmol/L HISTORICAL RESULTS Glucose 126 70 - 199 mg/dl HISTORICAL RESULTS BUN 4(L) 8 - 25 mg/dl HISTORICAL RESULTS Creatinine 0.62 0.60 - 1.10 mg/dl HISTORICAL RESULTS Calcium 8.7 8.6 - 10.3 mg/dl HISTORICAL RESULTS Protein, pl 6.3(L) 6.5 - 8.5 g/dl HISTORICAL RESULTS Alb 3.2(L) 3.6 - 5.0 g/dl HISTORICAL RESULTS Bilirubin 0.2(L) 0.3 - 1.1 mg/dl HISTORICAL RESULTS Alk phos 77 38 - 126 Units/L HISTORICAL RESULTS AST 17 11 - 47 Units/L HISTORICAL RESULTS ALT 15 7 - 53 Units/L HISTORICAL RESULTS Plasma 08/28/2014 9:23 AM GRANITE CUTTER APPRENTICE us Karissa Conrad MD LAB BLOOD ORDERABLES Becky chai Result HISTORICAL RESULTS * (ABNORMAL) Blood cell count (CBC) (08/28/2014 9:23 AM GRANITE CUTTER APPRENTICE) WBC 10.2(H) 3.8 - 9.8 K/cumm HISTORICAL RESULTS RBC 4.06 3.90 - 5.00 M/cumm HISTORICAL RESULTS Hgb 11.0(L) 12.1 - 15.1 g/dl HISTORICAL RESULTS Hct 34.9(L) 36.1 - 44.3 % HISTORICAL RESULTS MCV 85.8 80.0 - 97.6 fl HISTORICAL RESULTS MCH 27.1 26.7 - 33.7 pg HISTORICAL RESULTS MCHC 31.6(L) 32.7 - 35.5 g/dl HISTORICAL RESULTS Rdw 17.4(H) 11.8 - 14.6 % HISTORICAL RESULTS Platelets 336 140 - 440 K/cumm HISTORICAL RESULTS MPV 8.0 6.8 - 10.4 fl HISTORICAL RESULTS Neutrophils 61.6 38.7 - 74.5 % HISTORICAL RESULTS Lymphocytes 20.6 20.0 - 54.3 % HISTORICAL RESULTS Monos 12.4 4.3 - 13.5 % HISTORICAL RESULTS Eosinophils 5.2 0.0 - 6.0 % HISTORICAL RESULTS Basophils 0.2 0.0 - 3.0 % HISTORICAL RESULTS Neutrophils, abs 6.3 1.8 - 6.6 K/cumm HISTORICAL RESULTS Lymphocytes, abs 2.1 1.2 - 3.3 K/cumm HISTORICAL RESULTS Monocytes, absolute 1.3(H) 0.2 - 1.2 K/cumm HISTORICAL RESULTS Eosinophils, abs 0.5 0.0 - 0.5 K/cumm HISTORICAL RESULTS Basophils, abs 0.0 0.0 - 0.2 K/cumm HISTORICAL RESULTS Blood specimen (specimen) 08/28/2014 9:23 AM GRANITE CUTTER APPRENTICE us Karissa Conrad MD LAB BLOOD ORDERABLES Becky paula Result HISTORICAL RESULTS * Urinalysis (08/27/2014 2:28 PM GRANITE CUTTER APPRENTICE) Pathologist [facility] Color, ur Yellow Yellow HISTORICAL RESULTS Clarity, ur Clear Clear HISTORIC AL RESULTS Specific gravity, ur 1.020 1.003 - 1.030 HISTORICAL RESULTS pH, ur 6.0 5.0 - 8.0 HISTORICAL RESULTS Protein, ur Negative Trace HISTORIC AL RESULTS Glucose, ur Negative Negative HISTORIC AL RESULTS Ketones, ur Negative Negative HISTORIC AL RESULTS Bilirubin, ur Negative Negative HISTOR ICAL RESULTS U Blood Negative Negative HISTORICAL RESULTS Urobilinogen, quant, ur 2.0 0.0 - 2.0 mg/dl HISTORICAL RESULTS Nitrites, ur Negative Negative HISTORI SANTHOSH RESULTS Leukocyte esterase, ur Negative Negative HISTORICAL RESULTS Urine 08/27/2014 2:28 PM GRANITE CUTTER APPRENTICE us Bhargavi Lyons MD LAB BLOOD ORDERABLES Fi nal Result Performing Organization Address [facility] Co de Phone Number HISTORICAL RESULTS * Blood ABO, Rh, indirect ab screen (08/27/2014 2:28 PM GRANITE CUTTER APPRENTICE) Pathologist [facility] ABO, Rho(D) O Positive HISTORI SANTHOSH RESULTS Gabby, indirect Negative HISTORICAL RESULTS Blood specimen (specimen) 08/27/2014 2:28 PM GRANITE CUTTER APPRENTICE us Bhargavi Lyons MD LAB BLOOD ORDERABLES Fi nal Result Performing Organization Address [facility] Co de Phone Number HISTORICAL RESULTS * (ABNORMAL) Plasma comprehensive metabolic panel (08/27/2014 12:20 PM GRANITE CUTTER APPRENTICE) Pathologist [facility] Sodium 140 135 - 145 mmol/L HISTORICAL RESULTS K, pl 3.6 3.3 - 4.9 mmol/L HISTORICAL RESULTS Chloride 107 97 - 110 mmol/L HISTORICAL RESULTS CO2 25 22 - 32 mmol/L HISTORICAL RESULTS A. gap 8 0 - 16 mmol/L HISTORICAL RESULTS Glucose 86 70 - 199 mg/dl HISTORICAL RESULTS BUN 8 8 - 25 mg/dl HISTORICAL RESULTS Creatinine 0.59(L) 0.60 - 1.10 mg/dl HISTORICAL RESULTS Calcium 8.6 8.6 - 10.3 mg/dl HISTORICAL RESULTS Protein, pl 6.9 6.5 - 8.5 g/dl HISTORICAL RESULTS Alb 3.6 3.6 - 5.0 g/dl HISTORICAL RESULTS Bilirubin 0.3 0.3 - 1.1 mg/dl HISTORICAL RESULTS Alk phos 84 38 - 126 Units/L HISTORICAL RESULTS AST 17 11 - 47 Units/L HISTORICAL RESULTS ALT 21 7 - 53 Units/L HISTORICAL RESULTS Plasma 08/27/2014 12:2 0 PM GRANITE CUTTER APPRENTICE us Bhargavi Lyons MD LAB BLOOD ORDERABLES Fi nal Result HISTORICAL RESULTS * (ABNORMAL) Blood cell count (CBC) (08/27/2014 12:20 PM GRANITE CUTTER APPRENTICE) WBC 11.1(H) 3.8 - 9.8 K/cumm HISTORICAL RESULTS RBC 4.33 3.90 - 5.00 M/cumm HISTORICAL RESULTS Hgb 12.1 12.1 - 15.1 g/dl HISTORICAL RESULTS Hct 37.3 36.1 - 44.3 % HISTORICAL RESULTS MCV 86.2 80.0 - 97.6 fl HISTORICAL RESULTS MCH 28.0 26.7 - 33.7 pg HISTORICAL RESULTS MCHC 32.5(L) 32.7 - 35.5 g/dl HISTORICAL RESULTS Rdw 17.9(H) 11.8 - 14.6 % HISTORICAL RESULTS Platelets 322 140 - 440 K/cumm HISTORICAL RESULTS MPV 8.1 6.8 - 10.4 fl HISTORICAL RESULTS Neutrophils 67.6 38.7 - 74.5 % HISTORICAL RESULTS Lymphocytes 15.6(L) 20.0 - 54.3 % HISTORICAL RESULTS Monos 10.9 4.3 - 13.5 % HISTORICAL RESULTS Eosinophils 4.7 0.0 - 6.0 % HISTORICAL RESULTS Basophils 1.2 0.0 - 3.0 % HISTORICAL RESULTS Neutrophils, abs 7.5(H) 1.8 - 6.6 K/cumm HISTORICAL RESULTS Lymphocytes, abs 1.7 1.2 - 3.3 K/cumm HISTORICAL RESULTS Monocytes, absolute 1.2 0.2 - 1.2 K/cumm HISTORICAL RESULTS Eosinophils, abs 0.5 0.0 - 0.5 K/cumm HISTORICAL RESULTS Basophils, abs 0.1 0.0 - 0.2 K/cumm HISTORICAL RESULTS Blood specimen (specimen) 08/27/2014 12:20 PM GRANITE CUTTER APPRENTICE us Bhargavi Lyons MD LAB BLOOD ORDERABLES Fi nal Result Performing Organization Address [facility] Co de Phone Number HISTORICAL RESULTS * Influenza virus PCR (08/27/2014 12:00 PM GRANITE CUTTER APPRENTICE) Nasopharyngeal (Unknown) 08/27/2014 12:00 PM GRANITE CUTTER APPRENTICE 08/27/2014 12:32 PM GRANITE CUTTER APPRENTICE Impressions HISTORICAL RESULTS - 08/27/2014 2:33 PM GRANITE CUTTER APPRENTICE This test has been performed using the [employer] Xpert Flu Assay. ??This is a multiplex, real-time reverse transcriptase PCR assay that detects and differentiates influenza A, 2009 H1N1 influenza A, and influenza B viral RNA. ??This assay has been cleared by the US Food and Drug Administration, and its performance characteristics have been verified by the [facility]. Current interpretive data was last revised on 2011. Narrative HISTORICAL RESULTS - 08/27/2014 2:33 PM GRANITE CUTTER APPRENTICE Flu A target RNA not detected Flu B target RNA not detected us Historical Provider LAB MICROBIOLOGY - GENERA L ORDERABLES Final Result Performing Organization Address [facility] Co de Phone Number HISTORICAL RESULTS * All Microbiology Report Section (08/27/2014 12:00 AM GRANITE CUTTER APPRENTICE) 08/27/2014 Narrative HISTORICAL RESULTS - 08/27/2014 4:22 PM GRANITE CUTTER APPRENTICE ? [facility] ?[address] [facility] [address] ?[place], [place] [address] ? Patient Name: ??JUMANA RIVERS ? Med Rec Number: [id number] ? Fin Number: ?[id number] ? Date: ?1990 ? Sex/Age: ? Female 24 years ? Admit Date: ?08/27/2014 ? Discharge Date: ? Doctor: ?Tuuli , Methodius G ? Facility: ?[facility] ? Location: ?[id number] ?* Abnormal ??A Alert ??f Footnote ??^ Corrected ??L Low ??H High ?i Interp Data ??@ Ref Lab ? Chart Type:Cumulative ?* * * * MICROBIOLOGY - MOLECULAR TESTING * * * * ?PROCEDURE: Influenza PCR ? SOURCE: Nasopharyngeal ? COLLECTED: 12/21/14 ??1200 ?BODY SITE: ? STARTED: 12/21/14 ??1232 ? FREE TEXT SOURCE: ? FINAL REPORT ? REPORTED: 08/27/14 1433 ? Flu A target RNA not detected Flu B target RNA not detected ?* * * ??Interpretive Results ??* * * ? (1)This test has been performed using the [employer] Xpert Flu Assay. ? This is a multiplex, real-time reverse transcriptase PCR assay ? that detects and differentiates influenza A, 2009 H1N1 influenza ? A, and influenza B viral RNA. ??This assay has been cleared by ? the US Food and Drug Administration, and its performance ? characteristics have been verified by the [facility] ? Microbiology Laboratory.Current interpretive data was last ? revised on 10/07/2011. ? us Historical Provider LAB MICROBIOLOGY - GENERA L ORDERABLES Final Result HISTORICAL RESULTS documented in this encounter Visit Diagnoses Diagnosis Puerperal endometritis, condition or complication Asthma Unspecified asthma Elevated blood-pressure reading without diagnosis of hypertension Elevated blood pressure reading without diagnosis of hypertension History of allergy to other anti-infective agent documented in this encounter
--- OUTSIDE RECORDS SUMMARY | 2024-09-25 12:06 | XMS_ITS | Encounter Summary ---
Author Organization [facility] Facility Care Team Providers Care Blind Slat Stapling Machine Operator Name Role Phone Unavailable Primary Care Provider Unavailabl e Encounter Details Date Type Department Care Team (Latest Contact Info) Description 10/02/2014 8:52 AM LENS BLOCKER - 10/02/2014 4:00 PM [facility] Hospital Encounter [facility] Gabriela Fairbanks MD [address] [facility] [address] [place] [address] Gynecology Routine follow-up; Encounter for surveillance of other contraceptive; examination or test, negative result Social History Tobacco Use Types Packs/Day Years Used Date Smoking Tobacco: Never Assessed Comments Unknown Sex and Gender Information Value Date Recorded Sex Assigned at Not on file Legal Sex Female 1:00 AM LENS BLOCKER Gender Identity Not on file Sexual Orientation Not on file documented as of this encounter Medications at Time of Discharge albuterol HFA (PROVENTIL HFA,VENTOLIN HFA,PROAIR HFA) 90 mcg/actuation inhaler INHALE 1-2 PUFFS EVERY 4-6 HOURS NEEDED AND DIRECTED. for asthma 04/24/2014 medroxyPROGESTER one (medroxyPROGESTE Isidro) 150 mg/mL injection Inject into the muscle as instructed 10/02/2014 2 [id number] acid ( 19) 29 mg iron- 1 mg tablet,chewable CHEW AND SWALLOW 1 TABLET DAILY. as supplement 07/18/2014 2 documented as of this encounter Plan of Treatment Not on file documented as of this encounter Procedures Procedure Name Priority Date/Time Associated Diagnosis Comments URINE CHORIONIC GONADOTROPIN (HCG) Routine 10/02/2014 9:23 AM LENS BLOCKER DISCHARGE LABORATORY CUMULATIVE REPORT Routine 10/02/2014 12:00 AM LENS BLOCKER documented in this encounter Results * Urine chorionic gonadotropin (HCG) (10/02/2014 9:23 AM LENS BLOCKER) HCG, ur Negative HISTORICAL RESULTS Urine 10/02/2014 9:23 AM LENS BLOCKER us Historical Provider LAB BLOOD ORDERABLES Becky paula Result HISTORICAL RESULTS * Discharge Laboratory Cumulative Report (10/02/2014 12:00 AM LENS BLOCKER) 10/02/2014 Narrative HISTORICAL RESULTS - 10/03/2014 11:26 AM LENS BLOCKER ?[facility] ?Department of Laboratories ? [address] [facility] [address] ? [place] [address] Patient Name: ??JUMANA RIVERS [facility] Rec Number: [id number] Fin Number: ?[id number] Date: ?1990 Sex/Age: ? Female 24 years Admit Date: ?10/02/2014 Discharge Date: 10/02/2014 Doctor: ?Gynecology, Resident Facility: ?[facility] Location: ?CLOG Chart Printed: 10/03/2014 11:26 ?? * Abnormal ?? C Critical ?? f Footnote ?? ^ Corrected ?? L Low ?? H High ? i Interp Data ?? @ Reference Lab ? Chart Type:Periodic ?URINE HORMONES ?Test: hCG Ur Qual ? Reference: ? Units: 10/02/2014 ?? 09:23:00 ?? Negative us Historical Provider LAB BLOOD ORDERABLES Becky paula Result HISTORICAL RESULTS documented in this encounter Visit Diagnoses Diagnosis Routine follow-up Encounter for surveillance of other contraceptive examination or test, negative result documented in this encounter
--- OUTSIDE RECORDS SUMMARY | 2024-09-25 12:06 | XMS_ITS | Encounter Summary ---
Author Organization [facility] Facility Care Team Providers Care Assistant Principal Name Role Phone Unavailable Primary Care Provider Unavailabl e Encounter Details Date Type Department Care Team (Late st Contact Info) Description 03/13/2014 - 09/06/2014 11:59 PM MARBLE RUBBER Hospital Encounter [facility] Social History Tobacco Use Types Packs/Day Years Used Date Smoking Tobacco: Never Assessed Comments Unknown Sex and Gender Information Value Date Recorded Sex Assigned at Not on file Legal Sex Female 1:00 AM MARBLE RUBBER Gender Identity Not on file Sexual Orientation Not on file documented as of this encounter Medications at Time of Discharge albuterol HFA (PROVENTIL HFA,VENTOLIN HFA,PROAIR HFA) 90 mcg/actuation inhaler INHALE 1-2 PUFFS EVERY 4-6 HOURS NEEDED AND DIRECTED. for asthma 04/24/2014 [id number] acid ( 19) 29 mg iron- 1 mg tablet,chewable CHEW AND SWALLOW 1 TABLET DAILY. as supplement 07/18/2014 2 documented as of this encounter Plan of Treatment Not on file documented as of this encounter Procedures Procedure Name Priority Date/Time Associated Diagnosis Comments DISCHARGE LABORATORY CUMULATIVE REPORT Routine 03/13/2014 5:19 PM CDT BLOOD HEMOGLOBIN A1C Routine 03/13/2014 10:25 AM CDT documented in this encounter Results * Discharge Laboratory Cumulative Report (03/13/2014 5:19 PM CDT) 03/13/2014 5:19 PM CDT Narrative HISTORICAL RESULTS - 03/13/2014 5:19 PM CDT ? [facility] ? Department of Laboratories ?[place] [id number] ?Brandon Toussaint MD ?[address] ?[place] [address] Patient Name: ? ALYSHA JOLLEY Med Rec Number: ?? [id number] Date of : ?1990 Gender/Age: ? Male 24 years Doctor: ? Brandon Toussaint M.D. Report Date/Time: 03/13/2014 17:19 ?* Abnormal ??C Critical ??f Footnote ??^ Corrected ??L Low ??H High ?i Interp Data ??@ Reference Lab ?Chart Type: Cumulative ? CHEMISTRY ? Standard Blood Chemistry ? 03/13/2014 ? 10:25:00 Test ? Units ??Reference Hemoglobin A1C ? 4.1 ? % ?4.0-6.0 Est Average Glucose ??71 ??f ? mg/dL 03/13/2014 10:25:00 ??Est Average Glucose: The ADA recommends reporting an estimated Average Glucose (eAG) with all Hemoglobin A1c results using the equation derived from a study of 507 normal and diabetic adults. ??Minority populations were underrepresented and children were not included. ??(Diabetes Care 31:7449-7628, 2008). ??The eAG is not equivalent to a fasting glucose. us Historical Provider LAB BLOOD ORDERABLES Becky l Result HISTORICAL RESULTS * Blood hemoglobin A1C (03/13/2014 10:25 AM CDT) [facility] [address] Hgb A1C 4.1 4.0 - 6.0 % HISTORICAL RESULTS Estimated average glucose 71 mg/dl HISTORICAL RESULTS Comment: The ADA recommends reporting an estimated Average Glucose (eAG) with all Hemoglobin A1c results using the equation derived from a study of 507 normal and diabetic adults. ??Minority populations were underrepresented and children were not included. ??(Diabetes Care 31:9637-7251, 2007). ??The eAG is not equivalent to a fasting glucose. Blood specimen (specimen) 03/13/2014 10:25 AM CDT Brandon Toussaint MD LAB BLOOD ORDERABLES Final Resul t HISTORICAL RESULTS documented in this encounter Visit Diagnoses Not on filedocumented in this encounter
--- OUTSIDE RECORDS SUMMARY | 2024-09-25 12:06 | XMS_ITS | Encounter Summary ---
Author Organization [facility] Facility Care Team Providers Care Book Reviewer Name Role Phone Unavailable Primary Care Provider Unavailabl e Encounter Details Date Type Department Care Team (Latest Contact Info) Description 12/18/2014 9:31 AM CDT - 12/18/2014 4:00 PM T Hospital Encounter [facility] Gabriela Fairbanks MD [address] [facility] [address] [place] [address] Gynecology Encounter for surveillance of other contraceptive Social History Tobacco Use Types Packs/Day Years Used Date Smoking Tobacco: Never Assessed Comments Unknown Sex and Gender Information Value Date Recorded Sex Assigned at Not on file Legal Sex Female 1:00 AM 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 for asthma 04/24/2014 medroxyPROGESTER one (medroxyPROGESTE Isidro) 150 mg/mL injection Inject into the muscle as instructed 10/02/2014 2 [id number] acid ( 19) 29 mg iron- 1 mg tablet,chewable CHEW AND SWALLOW 1 TABLET DAILY. as supplement 07/18/2014 2 documented as of this encounter Plan of Treatment Not on file documented as of this encounter Visit Diagnoses Diagnosis Encounter for surveillance of other contraceptive documented in this encounter
--- OUTSIDE RECORDS SUMMARY | 2024-09-25 12:06 | XMS_ITS | Encounter Summary ---
Author Organization [facility] Facility Care Team Providers Care Rn Picu Name Role Phone Unavailable Primary Care Provider Unavailabl e Encounter Details Date Type Department Care Team (Latest Contact Info) Description 05/07/2015 2:52 PM CDT - 05/07/2015 4:00 PM CDT Hospital Encounter [facility] Gabriela Fairbanks MD [address] [facility] [address] [place] [address] Gynecology Encounter for routine gynecological examination; Vaginitis and vulvovaginitis; Bacterial infection in conditions classified elsewhere Social History Tobacco Use Types Packs/Day Years Used Date Smoking Tobacco: Never Assessed Comments Unknown Sex and Gender Information Value Date Recorded Sex Assigned at Not on file 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 for asthma 04/24/2014 medroxyPROGESTER one (medroxyPROGESTE Isidro) 150 mg/mL injection Inject into the muscle as instructed 10/02/2014 2 [id number]-zvipe acid ( 19) 29 mg iron- 1 mg tablet,chewable CHEW AND SWALLOW 1 TABLET DAILY. as supplement 07/18/2014 2 documented as of this encounter Plan of Treatment Not on file documented as of this encounter Procedures Procedure Name Priority Date/Time Associated Diagnosis Comments N. GONORRHOEAE, CHLAMYDIA TRACHOMATIS AMPLIFICATION TEST, CDR Routine 05/07/2015 4:08 PM CDT ALL MICROBIOLOGY REPORT SECTION Routine 05/07/2015 12:00 AM CDT DISCHARGE LABORATORY CUMULATIVE REPORT 05/07/2015 documented in this encounter Results * Neisseria gonorrhoeae, Chlamydia trachomatis amplification test (05/07/2015 4:08 PM CDT) Endocervical (Unknown) 05/07/2015 4:08 PM CDT 05/07/2015 6:22 PM CDT Impressions HISTORICAL RESULTS - 05/08/2015 12:24 PM CDT Testing performed by the Gen-Probe [employer] APTIMA Combo 2 Assay. This nucleic acid amplification test (NAAT) detects ribosomal RNA (rRNA) from Chlamydia trachomatis and Neisseria gonorrhoeae using target capture,and Chief Of Party-Mediated Amplification (TMA). This test is approved by the [place] Food and Drug Administration for endocervical, vaginal, and male urethral swab specimens, in addition to male and female urine specimens. The performance characteristics for these specimen types have been verified by the [facility] Microbiology Laboratory.The performance characteristics of this assay for pharyngeal and rectal specimens collected from cervical swab collection devices have been validated and verified by the [facility] Microbiology Laboratory. Verification studies support a lack of cross reactivity with other Neisseria species considered normal oropharyngeal bacterial marco. Rectal swab specimens containing excess stool may be inhibitory and result in false negatives for Chlamydia trachomatis or Neisseria gonorrhoeae. The performance characteristics of this test have not been evaluated in women or individuals less than 16 years of age. Narrative HISTORICAL RESULTS - 05/08/2015 12:24 PM CDT Negative for: ??Chlamydia trachomatis rRNA Negative for: ??Neisseria gonorrhoeae rRNA us Historical Provider LAB MICROBIOLOGY - GENERA L ORDERABLES Final Result HISTORICAL RESULTS * DISCHARGE LABORATORY CUMULATIVE REPORT (05/07/2015) Narrative 05/07/2015 Ordered by an unspecified provider. us Historical Provider MD ROSE BLOOD ORDERABLES Becky paula Result * All Microbiology Report Section (05/07/2015 12:00 AM CDT) 05/07/2015 Narrative HISTORICAL RESULTS - 05/08/2015 3:58 PM CDT ? [facility] ?[address] [facility] [address] ?[place], [place] [address] ? Patient Name: ??JUMANA RIVERS ? Med Rec Number: [id number] ? Fin Number: ?[id number] ? Date: ?1990 ? Sex/Age: ? Female 25 years ? Admit Date: ?05/07/2015 ? Discharge Date: 05/07/2015 ? Doctor: ?Aicha Bucio ? Facility: ?[facility] ? Location: ?CLOG ?* Abnormal ??A Alert ??f Footnote ??^ Corrected ??L Low ??H High ?i Interp Data ??@ Ref Lab ? Chart Type:Cumulative ?* * * * MICROBIOLOGY - GENITAL * * * * ?PROCEDURE: N. gonorrhoeae/C. trachomatis Amplification Test ? SOURCE: Endocervical ? COLLECTED: 05/07/15 ??1608 ?BODY SITE: ? STARTED: 05/07/15 ??1822 ? FREE TEXT SOURCE: ? FINAL REPORT ? REPORTED: 05/08/15 1224 ? Negative for: ??Chlamydia trachomatis rRNA Negative for: ? Neisseria gonorrhoeae rRNA ?* * * ??Interpretive Results ??* * * ? (1)Testing performed by the [employer])-Probe [employer] APTIMA Combo 2 Assay. ? This nucleic acid amplification test (NAAT) detects ribosomal ? RNA (rRNA) from Chlamydia trachomatis and Neisseria gonorrhoeae ? using target capture,and Chief Of Party-Mediated Amplification ? (TMA). This test is approved by the [place] Food and Drug ? Administration for endocervical, vaginal, and male urethral swab ? specimens, in addition to male and female urine specimens. The ? performance characteristics for these specimen types have been ? verified by the [facility] Microbiology Laboratory. ? The performance characteristics of this assay for pharyngeal and ? rectal specimens collected from cervical swab collection devices ? have been validated and verified by the [facility] ? Microbiology Laboratory. Verification studies support a lack of ? cross reactivity with other Neisseria species considered normal ? oropharyngeal bacterial marco. Rectal swab specimens containing ? excess stool may be inhibitory and result in false negatives for ? Chlamydia trachomatis or Neisseria gonorrhoeae. The performance ? characteristics of this test have not been evaluated in ? women or individuals less than 16 years of age. ? us Historical Provider LAB MICROBIOLOGY - GENERA L ORDERABLES Final Result HISTORICAL RESULTS documented in this encounter Visit Diagnoses Diagnosis Encounter for routine gynecological examination Vaginitis and vulvovaginitis Bacterial infection in conditions classified elsewhere documented in this encounter
--- OUTSIDE RECORDS SUMMARY | 2024-09-25 12:07 | XMS_ITS | Encounter Summary ---
Author Organization [facility] Facility Care Team Providers Care Temperature Control Inspector Name Role Phone Unavailable Primary Care Provider Unavailabl e Encounter Details Date Type Department Care Team (Late st Contact Info) Description 08/27/2014 10:18 AM BAND BUILDER - 08/27/2014 10:28 AM [facility] Hospital Encounter [facility] Social History Tobacco Use Types Packs/Day Years Used Date Smoking Tobacco: Never Assessed Comments Unknown Sex and Gender Information Value Date Recorded Sex Assigned at Not on file Legal Sex Female 1:00 AM BAND BUILDER Gender Identity Not on file Sexual Orientation Not on file documented as of this encounter Medications at Time of Discharge albuterol HFA (PROVENTIL HFA,VENTOLIN HFA,PROAIR HFA) 90 mcg/actuation inhaler INHALE 1-2 PUFFS EVERY 4-6 HOURS NEEDED AND DIRECTED. for asthma 04/24/2014 [id number] acid ( 19) 29 mg iron- 1 mg tablet,chewable CHEW AND SWALLOW 1 TABLET DAILY. as supplement 07/18/2014 2 documented as of this encounter Plan of Treatment Not on file documented as of this encounter Visit Diagnoses Not on filedocumented in this encounter
--- OUTSIDE RECORDS SUMMARY | 2024-09-25 12:07 | XMS_ITS | Encounter Summary ---
Author Organization [facility] Facility Care Team Providers Care Side Laster Staple Name Role Phone Unavailable Primary Care Provider Unavailabl e Encounter Details Date Type Department Care Team (Late st Contact Info) Description 08/20/2014 7:51 AM ROTARY SLICING MACHINE OPERATOR - 08/21/2014 10:57 AM ROTARY SLICING MACHINE OPERATOR Hospital Encounter [facility] Khadra Pfeiffer MD [id number] [place] [address] Social History Tobacco Use Types Packs/Day Years Used Date Smoking Tobacco: Never Assessed Comments Unknown Sex and Gender Information Value Date Recorded Sex Assigned at Not on file Legal Sex Female 1:00 AM ROTARY SLICING MACHINE OPERATOR Gender Identity Not on file Sexual Orientation Not on file documented as of this encounter Last Filed Vital Signs Vital Sign Reading Time Taken Comments Blood Pressure 135/76 08/20/2014 7:51 AM ROTARY SLICING MACHINE OPERATOR Pulse 124 08/20/2014 11:53 AM ROTARY SLICING MACHINE OPERATOR Temperature - - Respiratory Rate - - Oxygen Saturation 100% 08/20/2014 11:53 AM ROTARY SLICING MACHINE OPERATOR Inhaled Oxygen Concentration - - Weight - - Height - - Body Mass Index - - documented in this encounter Medications at Time of Discharge albuterol HFA (PROVENTIL HFA,VENTOLIN HFA,PROAIR HFA) 90 mcg/actuation inhaler INHALE 1-2 PUFFS EVERY 4-6 HOURS NEEDED AND DIRECTED. for asthma 04/24/2014 [id number] acid ( 19) 29 mg iron- 1 mg tablet,chewable CHEW AND SWALLOW 1 TABLET DAILY. as supplement 07/18/2014 2 documented as of this encounter Plan of Treatment Not on file documented as of this encounter Procedures Procedure Name Priority Date/Time Associated Diagnosis Comments DISCHARGE LABORATORY CUMULATIVE REPORT Routine 08/21/2014 12:00 AM ROTARY SLICING MACHINE OPERATOR SURGICAL PATHOLOGY 08/21/2014 BLOOD HUMAN IMMUNODEFICIENCY VIRUS Routine 08/20/2014 2:43 PM ROTARY SLICING MACHINE OPERATOR BLOOD CELL COUNT (CBC) Routine 4 11:58 AM ROTARY SLICING MACHINE OPERATOR BLOOD ABO, RH, INDIRECT AB SCREEN Routine 08/20/2014 11:58 AM ROTARY SLICING MACHINE OPERATOR documented in this encounter Results * Surgical pathology (08/21/2014) Narrative 08/21/2014 Ordered by an unspecified provider. us Historical Provider MD LAB PATHOLOGY ORDERABLES Final Result * Discharge Laboratory Cumulative Report (08/21/2014 12:00 AM ROTARY SLICING MACHINE OPERATOR) 08/21/2014 Narrative HISTORICAL RESULTS - 08/21/2014 11:24 AM ROTARY SLICING MACHINE OPERATOR ?[facility] ?Department of Laboratories ? [address] [facility] [address] ? [place], [place] [address] Patient Name: ??SAMREENJUMANA [facility] Rec Number: [id number] Fin Number: ?[id number] Date: ?1990 Sex/Age: ? Female 24 years Admit Date: ?08/20/2014 Discharge Date: 08/21/2014 Doctor: ?Robbins , Khadra J Facility: ?[facility] Location: ?LD Chart Printed: 08/21/2014 11:24 ?? * Abnormal ?? C Critical ?? f Footnote ?? ^ Corrected ?? L Low ?? H High ? i Interp Data ?? @ Reference Lab ?Chart Type:Cumulative ? COMPLETE BLOOD COUNT ?Test: WBC ?RBC ?Hgb ? Reference: [3.8-9.8] ??[3.90-5.00] ??[12.1-15.1] ? Units: K/cumm ? M/cumm ? g/dL 08/20/2014 ?? 11:58:04 ?? 11.7 ??H ?3.43 ??L ?9.9 ??L ?Test: Hct ?Platelet Ct ??MCV ? Reference: [36.1-44.3] ??[140-440] ?[80.0-97.6] ? Units: % ?K/cumm ? fL 08/20/2014 ?? 11:58:04 ?? 29.7 ??L ?290 ?86.7 ?Test: MCH ?MCHC ? RDW ? Reference: [26.7-33.7] ??[32.7-35.5] ??[11.8-14.6] ? Units: pg ? g/dL ? % 08/20/2014 ?? 11:58:04 ?? 29.0 ? 33.4 ? 17.2 ??H ?Test: MPV ? Reference: [6.8-10.4] ? Units: fL 08/20/2014 ?? 11:58:04 ?? 9.0 ? AUTOMATED WHITE CELL DIFFERENTIAL ?Test: Neut Pct Auto ??Lymph Pct Auto ??Clinton Pct Auto ? Reference: [38.7-74.5] ?[20.0-54.3] ? [4.3-13.5] ? Units: % ?% ? % 08/20/2014 ?? 11:58:04 ?? 74.5 ? 10.8 ??L ? 11.4 ? AUTOMATED WHITE CELL DIFFERENTIAL ?Test: Eos Pct Auto ??Baso Pct Auto ??Neut Abs Auto ? Reference: [0.0-6.0] ? [0.0-3.0] ?[1.8-6.6] ? Units: % ? % ?K/cumm 08/20/2014 ?? 11:58:04 ?? 2.5 ? 0.8 ?8.7 ??H ?Test: Lymph Abs Auto ??Clinton Abs Auto ??Eos Abs Auto ? Reference: [1.2-3.3] ? [0.2-1.2] ?[0.0-0.5] ? Units: K/cumm ?K/cumm ? K/cumm 08/20/2014 ?? 11:58:04 ?? 1.3 ? 1.3 ??H ? 0.3 ?Test: Baso Abs Auto ? Reference: [0.0-0.2] ? Units: K/cumm 08/20/2014 ?? 11:58:04 ?? 0.1 ? TRANSFUSION MEDICINE ?Test: Indirect Gabby. ??ABO/Rh Pat Interp ? Reference: ? Units: 08/20/2014 ?? 11:58:00 ?? Negative ?O Positive ?POINT OF CARE TESTS ? Serology ?Test: Rapid HIV 1/2 POC ? Reference: ? Units: 08/20/2014 ?? 14:43:00 ?? neg Historical Provider LAB BLOOD ORDERABLES Becky l Result Performing Organization Address [facility] de Phone Number HISTORICAL RESULTS * Blood Human Immunodeficiency virus [HIV] rapid screen (08/20/2014 2:43 PM ROTARY SLICING MACHINE OPERATOR) Pathologist [facility] HIV ab Negative HISTORICAL RESULTS Blood specimen (specimen) 08/20/2014 2:43 PM ROTARY SLICING MACHINE OPERATOR Khadra Robbins MD LAB BLOOD ORDERABLES Final R esult Performing Organization Address [facility] de Phone Number HISTORICAL RESULTS * (ABNORMAL) Blood cell count (CBC) (08/20/2014 11:58 AM ROTARY SLICING MACHINE OPERATOR) WBC 11.7(H) 3.8 - 9.8 K/cumm HISTORICAL RESULTS RBC 3.43(L) 3.90 - 5.00 M/cumm HISTORICAL RESULTS Hgb 9.9(L) 12.1 - 15.1 g/dl HISTORICAL RESULTS Hct 29.7(L) 36.1 - 44.3 % HISTORICAL RESULTS MCV 86.7 80.0 - 97.6 fl HISTORICAL RESULTS MCH 29.0 26.7 - 33.7 pg HISTORICAL RESULTS MCHC 33.4 32.7 - 35.5 g/dl HISTORICAL RESULTS Rdw 17.2(H) 11.8 - 14.6 % HISTORICAL RESULTS Platelets 290 140 - 440 K/cumm HISTORICAL RESULTS MPV 9.0 6.8 - 10.4 fl HISTORICAL RESULTS Neutrophils 74.5 38.7 - 74.5 % HISTORICAL RESULTS Lymphocytes 10.8(L) 20.0 - 54.3 % HISTORICAL RESULTS Monos 11.4 4.3 - 13.5 % HISTORICAL RESULTS Eosinophils 2.5 0.0 - 6.0 % HISTORICAL RESULTS Basophils 0.8 0.0 - 3.0 % HISTORICAL RESULTS Neutrophils, abs 8.7(H) 1.8 - 6.6 K/cumm HISTORICAL RESULTS Lymphocytes, abs 1.3 1.2 - 3.3 K/cumm HISTORICAL RESULTS Monocytes, absolute 1.3(H) 0.2 - 1.2 K/cumm HISTORICAL RESULTS Eosinophils, abs 0.3 0.0 - 0.5 K/cumm HISTORICAL RESULTS Basophils, abs 0.1 0.0 - 0.2 K/cumm HISTORICAL RESULTS Blood specimen (specimen) 08/20/2014 11:58 AM ROTARY SLICING MACHINE OPERATOR Khadra Robbins MD LAB BLOOD ORDERABLES Final R esult Performing Organization Address City/State/[facility] Co de Phone Number HISTORICAL RESULTS * Blood ABO, Rh, indirect ab screen (08/20/2014 11:58 AM ROTARY SLICING MACHINE OPERATOR) Gabby, indirect Negative HISTORICAL RESULTS ABO, Rho(D) O Positive HISTORI SANTHOSH RESULTS Blood specimen (specimen) 08/20/2014 11:58 AM ROTARY SLICING MACHINE OPERATOR Khadra Robbins MD LAB BLOOD ORDERABLES Final R esult Performing Organization Address City/State/[facility] Co de Phone Number HISTORICAL RESULTS documented in this encounter Visit Diagnoses Not on filedocumented in this encounter
--- OUTSIDE RECORDS SUMMARY | 2024-09-25 12:07 | XMS_ITS | Encounter Summary ---
Author Organization [facility] Facility Care Team Providers Care Special Machine Operator Name Role Phone Unavailable Primary Care Provider Unavailabl e Encounter Details Date Type Department Care Team (Late st Contact Info) Description 08/14/2014 11:26 PM STATISTICAL MODELER - 08/14/2014 11:33 PM STATISTICAL MODELER Hospital Encounter [facility] Social History Tobacco Use Types Packs/Day Years Used Date Smoking Tobacco: Never Assessed Comments Unknown Sex and Gender Information Value Date Recorded Sex Assigned at Not on file Legal Sex Female 1:00 AM STATISTICAL MODELER Gender Identity Not on file Sexual Orientation Not on file documented as of this encounter Medications at Time of Discharge albuterol HFA (PROVENTIL HFA,VENTOLIN HFA,PROAIR HFA) 90 mcg/actuation inhaler INHALE 1-2 PUFFS EVERY 4-6 HOURS NEEDED AND DIRECTED. for asthma 04/24/2014 [id number] acid ( 19) 29 mg iron- 1 mg tablet,chewable CHEW AND SWALLOW 1 TABLET DAILY. as supplement 07/18/2014 2 documented as of this encounter Plan of Treatment Not on file documented as of this encounter Visit Diagnoses Not on filedocumented in this encounter
--- OUTSIDE RECORDS SUMMARY | 2024-09-25 12:07 | XMS_ITS | Encounter Summary ---
Author Organization [facility] Care Team Providers Care Director Of Rehabilitative Services Name Role Phone Unavailable Primary Care Provider Unavailabl e Encounter Details Date Type Department Care Team (Latest Contact Info) Description 08/20/2014 12:44 PM RELIEF SALESPERSON - 08/23/2014 6:14 PM RELIEF SALESPERSON Hospital Encounter [facility] Jennifer Stephens DO [address] [address] Infection of amniotic cavity, delivered; Maternal mental disorder, with delivery; Anemia; Delivery outcome of single liveborn infant; Other current maternal conditions classifiable elsewhere, with delivery; Carrier or suspected carrier of group B Streptococcus; Asthma; Abnormality in heart rate/rhythm, delivered; Anxiety state; Other depressive disorder; Anemia of mother, with delivery, with complication Social History Tobacco Use Types Packs/Day Years Used Date Smoking Tobacco: Never Assessed Comments Unknown Sex and Gender Information Value Date Recorded Sex Assigned at Not on file Legal Sex Female 1:00 AM RELIEF SALESPERSON Gender Identity Not on file Sexual Orientation Not on file documented as of this encounter Last Filed Vital Signs Vital Sign Reading Time Taken Comments Blood Pressure 132/69 08/20/2014 12:50 PM RELIEF SALESPERSON Pulse 85 08/23/2014 8:30 AM RELIEF SALESPERSON Temperature - - Respiratory Rate - - Oxygen Saturation 100% 08/22/2014 4:43 PM RELIEF SALESPERSON Inhaled Oxygen Concentration - - Weight 92.5 kg (203 lb 15.9 oz) 014 11:54 AM RELIEF SALESPERSON Height 162.6 cm (5' 4 ) 08/20/2014 1:55 PM RELIEF SALESPERSON Body Mass Index 35.02 08/20/2014 1:55 PM RELIEF SALESPERSON documented in this encounter Medications at Time of Discharge albuterol HFA (PROVENTIL HFA,VENTOLIN HFA,PROAIR HFA) 90 mcg/actuation inhaler INHALE 1-2 PUFFS EVERY 4-6 HOURS NEEDED AND DIRECTED. for asthma 04/24/2014 [id number] ( 19) 29 mg iron- 1 mg tablet,chewable CHEW AND SWALLOW 1 TABLET DAILY. as supplement 07/18/2014 2 documented as of this encounter Plan of Treatment Not on file documented as of this encounter Procedures Procedure Name Priority Date/Time Associated Diagnosis Comments DISCHARGE LABORATORY CUMULATIVE REPORT Routine 08/23/2014 12:00 AM RELIEF SALESPERSON BLOOD GAS, CORD Routine 08/21/2014 5:32 AM RELIEF SALESPERSON BLOOD GAS, CORD Routine 08/21/2014 5:32 AM RELIEF SALESPERSON documented in this encounter Results * Discharge Laboratory Cumulative Report (08/23/2014 12:00 AM RELIEF SALESPERSON) 08/23/2014 Narrative HISTORICAL RESULTS - 08/23/2014 7:20 PM RELIEF SALESPERSON ?[facility] ?Department of Laboratories ? [facility] [address] ? [place], [place] [address] Patient Name: ??JUMANA JOLLEY [facility] Rec Number: [id number] Fin Number: ?[id number] Date: ?1990 Sex/Age: ? Female 24 years Admit Date: ?08/20/2014 Discharge Date: 08/23/2014 Doctor: ?Jennifer Stephens Facility: ?[facility] Location: ?[id number] Chart Printed: 08/23/2014 19:20 ?? * Abnormal ?? C Critical ?? f Footnote ?? ^ Corrected ?? L Low ?? H High ? i Interp Data ?? @ Reference Lab ?Chart Type:Cumulative ?BLOOD GASES ? Umbilical Blood Gases ?Test: pH ? pCO2 ?? pO2 ?Total CO2 ??Base Excess ? Reference: ? Units: ?mmHg ?? mmHg ?? mmol/L ? mmol/L 08/21/2014 ?? 05:32:00 ?? 7.38 ??f ??38 ??f ??31 ??f ??24 ??f ?-2.0 ??f 08/21/2014 ?? 05:32:00 ?? 7.34 ??f ??48 ??f ??18 ??f ??27 ??f ?-0.7 ??f 08/21/2014 05:32:00 ??pH: venous 08/21/2014 05:32:00 ??pH: Arterial 08/21/2014 05:32:00 ??pCO2: venous 08/21/2014 05:32:00 ??pCO2: Arterial 08/21/2014 05:32:00 ??pO2: venous 08/21/2014 05:32:00 ??pO2: Arterial 08/21/2014 05:32:00 ??Total CO2: venous 08/21/2014 05:32:00 ??Total CO2: Arterial 08/21/2014 05:32:00 ??Base Excess: venous 08/21/2014 05:32:00 ??Base Excess: Arterial ?Test: Lactate WB Umbil ? Reference: ? Units: mmol/L 08/21/2014 ?? 05:32:00 ?? 1.7 ??f 08/21/2014 ?? 05:32:00 ?? 1.9 ??f 08/21/2014 05:32:00 ??Lactate WB Umbil: venous ?BLOOD GASES ? Umbilical Blood Gases 08/21/2014 05:32:00 ??Lactate WB Umbil: Arterial ? CANCELLED TESTS Date ?Time ?Test ??Cancel Reason 08/20/2014 ??13:20:00 ??CBC ?? Lab Operations Cancel Historical Provider LAB BLOOD ORDERABLES Becky l Result HISTORICAL RESULTS * Blood gas, cord (08/21/2014 5:32 AM RELIEF SALESPERSON) Pathologist [facility] [place] pH, cord 7.38 HISTORICAL RESULTS Comment:venous PCO2, cord 38 mm Hg HISTORICA L RESULTS Comment:venous PO2, cord 31 mm Hg HISTORICAL RESULTS Comment:venous CO2, cord, calc 24 mmol/L HISTORICAL RESULTS Comment:venous BE, cord -2.0 mmol/L HISTORICAL RESULTS Comment:venous Lactic acid, cord 1.7 mmol/L HISTORICAL RESULTS Comment:venous Cord blood 08/21/2014 5:32 AM RELIEF SALESPERSON Historical Provider LAB BLOOD ORDERABLES Becky l Result Performing Organization Address City/[facility] Co de Phone Number HISTORICAL RESULTS * Blood gas, cord (08/21/2014 5:32 AM RELIEF SALESPERSON) pH, cord 7.34 HISTORICAL RESULTS Comment:Arterial PCO2, cord 48 mm Hg HISTORICA L RESULTS Comment:Arterial PO2, cord 18 mm Hg HISTORICAL RESULTS Comment:Arterial CO2, cord, calc 27 mmol/L HISTORICAL RESULTS Comment:Arterial BE, cord -0.7 mmol/L HISTORICAL RESULTS Comment:Arterial Lactic acid, cord 1.9 mmol/L HISTORICAL RESULTS Comment:Arterial Cord blood 08/21/2014 5:32 AM RELIEF SALESPERSON us Historical Provider LAB BLOOD ORDERABLES Becky l Result Performing Organization Address [facility] de Phone Number HISTORICAL RESULTS documented in this encounter Visit Diagnoses Diagnosis Infection of amniotic cavity, delivered Maternal mental disorder, with delivery Mental disorders of mother, with delivery Anemia Unspecified anemia Delivery outcome of single liveborn infant Other current maternal conditions classifiable elsewhere, with delivery Carrier or suspected carrier of group B Streptococcus Carrier or suspected carrier of Group B streptococcus Asthma Unspecified asthma Abnormality in heart rate/rhythm, delivered Anxiety state Anxiety state, unspecified Other depressive disorder Anemia of mother, with delivery, with complication Anemia of mother, with delivery, with mention of complication documented in this encounter
--- OUTSIDE RECORDS SUMMARY | 2024-09-25 12:07 | XMS_ITS | Encounter Summary ---
Author Organization [facility] Care Team Providers Care Hypoid Gear Tester Name Role Phone Unavailable Primary Care Provider Unavailabl e Encounter Details Date Type Department Care Team (Late st Contact Info) Description 08/17/2014 2:28 PM PIPING SUPERVISOR - 08/17/2014 4:00 PM PIPING SUPERVISOR Hospital Encounter [facility] Isaiah Hull MD [address] [place] [phone] [place] [address] Gynecology Encounter for supervision of normal in multigravida; Special screening examination for other specified viral diseases; Screening examination for sexually transmitted disease; Special screening examination for other specified chlamydial diseases Social History Tobacco Use Types Packs/Day Years Used Date Smoking Tobacco: Never Assessed Comments Unknown Sex and Gender Information Value Date Recorded Sex Assigned at Not on file Legal Sex Female 1:00 AM PIPING SUPERVISOR Gender Identity Not on file Sexual Orientation Not on file documented as of this encounter Medications at Time of Discharge albuterol HFA (PROVENTIL HFA,VENTOLIN HFA,PROAIR HFA) 90 mcg/actuation inhaler INHALE 1-2 PUFFS EVERY 4-6 HOURS NEEDED AND DIRECTED. for asthma 04/24/2014 [id number] acid ( 19) 29 mg iron- 1 mg tablet,chewable CHEW AND SWALLOW 1 TABLET DAILY. as supplement 07/18/2014 2 documented as of this encounter Plan of Treatment Not on file documented as of this encounter Procedures Procedure Name Priority Date/Time Associated Diagnosis Comments URINE DRUG SCREEN Routine 08/17/2014 4:2 5 PM PIPING SUPERVISOR SERUM RAPID PLASMA REAGIN (RPR) Routine 08/17/2014 3:30 PM PIPING SUPERVISOR SERUM HUMAN IMMUNODEFICIENCY VIRUS (HIV) 1/2 AB + P24 AG Routine 08/17/2014 3:30 PM PIPING SUPERVISOR SERUM FERRITIN Routine 08/17/2014 3:30 PM PIPING SUPERVISOR BLOOD RETICULOCYTE COUNT Routine 014 3:30 PM PIPING SUPERVISOR BLOOD CELL COUNT (CBC) Routine 4 3:30 PM PIPING SUPERVISOR BETA STREP CULTURE, CDR Routine 08/17/20 14 2:57 PM PIPING SUPERVISOR N. GONORRHOEAE, CHLAMYDIA TRACHOMATIS AMPLIFICATION TEST, CDR Routine 08/17/2014 2:57 PM PIPING SUPERVISOR ALL MICROBIOLOGY REPORT SECTION Routine 08/17/2014 12:00 AM PIPING SUPERVISOR ALL MICROBIOLOGY REPORT SECTION Routine 08/17/2014 12:00 AM PIPING SUPERVISOR DISCHARGE LABORATORY CUMULATIVE REPORT Routine 08/17/2014 12:00 AM PIPING SUPERVISOR documented in this encounter Results * Urine drug screen (08/17/2014 4:25 PM PIPING SUPERVISOR) Pathologist [facility] Amphetamine, ur None detected HISTORICAL RESULTS Comment: Interpretive Data Immunoassay Screen cutoff level 300 ng/mL. Drug results are to be used only for medical purposes. ??All results, especially unconfirmed screening results, must not be used for non medical purposes. Current interpretive data was last revised 07. Barbiturates, ur None detected HISTORICAL RESULTS Comment: Interpretive Data Immunoassay Screen cutoff level 200 ng/mL. Drug results are to be used only for medical purposes. ??All results, especially unconfirmed screening results, must not be used for non medical purposes. Current interpretive data was last revised 07. Benzodiazepines, ur None detected HISTORICAL RESULTS Comment: Interpretive Data Immunoassay Screen cutoff level 200 ng/mL. Drug results are to be used only for medical purposes. ??All results, especially unconfirmed screening results, must not be used for non medical purposes. Current interpretive data was last revised 07. Cannabinoids, ur None detected HISTORICAL RESULTS Comment: Interpretive Data Immunoassay Screen cutoff level 50 ng/mL. Drug results are to be used only for medical purposes. ??All results, especially unconfirmed screening results, must not be used for non medical purposes. Current interpretive data was last revised 07. Cocaine, ur None detected HISTORICAL RESULTS Comment: Interpretive Data Immunoassay Screen cutoff level 150 ng/mL. Drug results are to be used only for medical purposes. ??All results, especially unconfirmed screening results, must not be used for non medical purposes. Current interpretive data was last revised 07. Methadone, ur None detected HISTORICAL RESULTS Comment: Interpretive Data Immunoassay Screen cutoff level 300 ng/mL. Drug results are to be used only for medical purposes. ??All results, especially unconfirmed screening results, must not be used for non medical purposes. Current interpretive data was last revised 07. Opiates, qual, ur None detected HISTORICAL RESULTS Comment: Interpretive Data Immunoassay Screen cutoff level 300 ng/mL. Drug results are to be used only for medical purposes. ??All results, especially unconfirmed screening results, must not be used for non medical purposes. Current interpretive data was last revised 07. Phencyclidine, qual, ur None detected HISTORICAL RESULTS Comment: Interpretive Data Immunoassay Screen cutoff level 25 ng/mL. Drug results are to be used only for medical purposes. ??All results, especially unconfirmed screening results, must not be used for non medical purposes. Current interpretive data was last revised 07. Urine 08/17/2014 4:25 PM PIPING SUPERVISOR us Megan Larkin LAB BLOOD ORDERABLES Final Resu lt HISTORICAL RESULTS * Serum rapid plasma reagin (RPR) (08/17/2014 3:30 PM PIPING SUPERVISOR) RPR Nonreactive HISTORIC AL RESULTS Serum 08/17/2014 3:30 PM PIPING SUPERVISOR us Megan PaulaMarcelo Trae LAB BLOOD ORDERABLES Final Resu lt Performing Organization Address [facility] de Phone Number HISTORICAL RESULTS * Serum Human Immunodeficiency virus (HIV) 1/2 ab + p24 ag (08/17/2014 3:30 PM PIPING SUPERVISOR) HIV 1/2 ab p24 ag Nonreactive Nonreactive HISTORICAL RESULTS Serum 08/17/2014 3:30 PM PIPING SUPERVISOR us Megan PaulaMarcelo Trae LAB BLOOD ORDERABLES Final Resu lt Performing Organization Address [facility] de Phone Number HISTORICAL RESULTS * (ABNORMAL) Serum ferritin (08/17/2014 3:30 PM PIPING SUPERVISOR) Ferritin 9(L) 10 - 291 ng/ml HISTORICAL RESULTS Serum 08/17/2014 3:30 PM PIPING SUPERVISOR us Walshra Rader Trae LAB BLOOD ORDERABLES Final Resu lt Performing Organization Address [facility] de Phone Number HISTORICAL RESULTS * Blood reticulocyte count (08/17/2014 3:30 PM PIPING SUPERVISOR) Retics 1.8 0.4 - 1.9 % HISTORICAL RESULTS Retics, absolute 0.066 0.015 - 0.092 M/cumm HISTORICAL RESULTS Blood specimen (specimen) 08/17/2014 3:30 PM PIPING SUPERVISOR us Walshra Rader Trae LAB BLOOD ORDERABLES Final Resu lt Performing Organization Address [facility] de Phone Number HISTORICAL RESULTS * (ABNORMAL) Blood cell count (CBC) (08/17/2014 3:30 PM PIPING SUPERVISOR) WBC 9.5 3.8 - 9.8 K/cumm HISTORICAL RESULTS RBC 3.65(L) 3.90 - 5.00 M/cumm HISTORICAL RESULTS Hgb 10.5(L) 12.1 - 15.1 g/dl HISTORICAL RESULTS Hct 31.0(L) 36.1 - 44.3 % HISTORICAL RESULTS MCV 85.1 80.0 - 97.6 fl HISTORICAL RESULTS MCH 28.8 26.7 - 33.7 pg HISTORICAL RESULTS MCHC 33.8 32.7 - 35.5 g/dl HISTORICAL RESULTS Rdw 17.2(H) 11.8 - 14.6 % HISTORICAL RESULTS Platelets 296 140 - 440 K/cumm HISTORICAL RESULTS MPV 8.5 6.8 - 10.4 fl HISTORICAL RESULTS Neutrophils 73.8 38.7 - 74.5 % HISTORICAL RESULTS Lymphocytes 16.2(L) 20.0 - 54.3 % HISTORICAL RESULTS Monos 8.4 4.3 - 13.5 % HISTORICAL RESULTS Eosinophils 1.2 0.0 - 6.0 % HISTORICAL RESULTS Basophils 0.4 0.0 - 3.0 % HISTORICAL RESULTS Neutrophils, abs 7.0(H) 1.8 - 6.6 K/cumm HISTORICAL RESULTS Lymphocytes, abs 1.5 1.2 - 3.3 K/cumm HISTORICAL RESULTS Monocytes, absolute 0.8 0.2 - 1.2 K/cumm HISTORICAL RESULTS Eosinophils, abs 0.1 0.0 - 0.5 K/cumm HISTORICAL RESULTS Basophils, abs 0.0 0.0 - 0.2 K/cumm HISTORICAL RESULTS Blood specimen (specimen) 08/17/2014 3:30 PM PIPING SUPERVISOR us Megan Dior Larkin LAB BLOOD ORDERABLES Final Resu lt HISTORICAL RESULTS * Beta strep culture (08/17/2014 2:57 PM PIPING SUPERVISOR) Vaginal/Rectal (Vaginal/rectal) 08/17/2014 2:57 PM PIPING SUPERVISOR 08/17/2014 4:49 PM PIPING SUPERVISOR Narrative HISTORICAL RESULTS - 08/18/2014 1:53 PM PIPING SUPERVISOR Streptococcus agalactiae (Group B Streptococci) Resistance to penicillin in Group B Streptococcus has not been reported. ??Group B Streptococci are universally susceptible to beta-lactam antibiotics and vancomycin. Routine susceptibility testing is not performed. ??In penicillin allergic patients, if susceptibility testing is requested, the standard panel includes erythromycin and clindamycin. ??Please contact the laboratory at [phone] if you require this testing. Historical Provider MD LAB MICROBIOLOGY - GENERA L ORDERABLES Final Result Performing Organization Address [facility] de Phone Number HISTORICAL RESULTS * Neisseria gonorrhoeae, Chlamydia trachomatis amplification test (08/17/2014 2:57 PM PIPING SUPERVISOR) Endocervical (Unknown) 08/17/2014 2:57 PM PIPING SUPERVISOR 08/17/2014 4:55 PM PIPING SUPERVISOR Impressions HISTORICAL RESULTS - 08/18/2014 12:48 PM PIPING SUPERVISOR Testing performed by the [employer] APTIMA Combo 2 Assay. This nucleic acid amplification test (NAAT) detects ribosomal RNA (rRNA) from Chlamydia trachomatis and Neisseria gonorrhoeae using target capture,and Hot Stick Worker-Mediated Amplification (TMA). This test is approved by the [place] Food and Drug Administration for endocervical, vaginal, and male urethral swab specimens, in addition to male and female urine specimens. The performance characteristics for these specimen types have been verified by the [facility].The performance characteristics of this assay for pharyngeal and rectal specimens collected from cervical swab collection devices have been validated and verified by the [facility]. Verification studies support a lack of cross reactivity with other Neisseria species considered normal oropharyngeal bacterial marco. Rectal swab specimens containing excess stool may be inhibitory and result in false negatives for Chlamydia trachomatis or Neisseria gonorrhoeae. The performance characteristics of this test have not been evaluated in women or individuals less than 16 years of age. Narrative HISTORICAL RESULTS - 08/18/2014 12:48 PM PIPING SUPERVISOR Negative for: ??Chlamydia trachomatis rRNA Negative for: ??Neisseria gonorrhoeae rRNA Historical Provider MD LAB MICROBIOLOGY - GENERA L ORDERABLES Final Result Performing Organization Address [facility] Co de Phone Number HISTORICAL RESULTS * All Microbiology Report Section (08/17/2014 12:00 AM PIPING SUPERVISOR) 08/17/2014 Narrative HISTORICAL RESULTS - 08/18/2014 5:12 PM PIPING SUPERVISOR ? [facility] ?[facility] ?[place] [address] ? Patient Name: ??JUMANA RIVERS L ? Med Rec Number: [id number] ? Fin Number: ?[id number] ? Date: ?1990 ? Sex/Age: ? Female 24 years ? Admit Date: ?08/17/2014 ? Discharge Date: 08/17/2014 ? Doctor: ?Gynecology, Resident ? Facility: ?[facility] ? Location: ?CLOG ?* Abnormal ??A Alert ??f Footnote ??^ Corrected ??L Low ??H High ?i Interp Data ??@ Ref Lab ? Chart Type:Cumulative ?* * * * MICROBIOLOGY - GENITAL * * * * ?PROCEDURE: N. gonorrhoeae/C. trachomatis Amplification Test ? SOURCE: Endocervical ? COLLECTED: 08/17/14 ??1457 ?BODY SITE: ? STARTED: 08/17/14 ??1656 ? FREE TEXT SOURCE: ? FINAL REPORT ? REPORTED: 08/18/14 1248 ? Negative for: ??Chlamydia trachomatis rRNA Negative for: ? Neisseria gonorrhoeae rRNA ?* * * ??Interpretive Results ??* * * ? (1)Testing performed by the [employer] APTIMA Combo 2 Assay. ? This nucleic acid amplification test (NAAT) detects ribosomal ? RNA (rRNA) from Chlamydia trachomatis and Neisseria gonorrhoeae ? using target capture,and Hot Stick Worker-Mediated Amplification ? (TMA). This test is approved by the [place] Food and Drug ? Administration for endocervical, vaginal, and male urethral swab ? specimens, in addition to male and female urine specimens. The ? performance characteristics for these specimen types have been ? verified by the [facility]. ? The performance characteristics of this assay for pharyngeal and ? rectal specimens collected from cervical swab collection devices ? have been validated and verified by the [facility] ? Microbiology Laboratory. Verification studies support a [...] years of age. ? us Historical Provider MD LAB MICROBIOLOGY - GENERA L ORDERABLES Final Result HISTORICAL RESULTS * All Microbiology Report Section (08/17/2014 12:00 AM PIPING SUPERVISOR) 08/17/2014 Narrative HISTORICAL RESULTS - 08/18/2014 5:12 PM PIPING SUPERVISOR ? [facility] ?[facility] ?[place], [place] [address] ? Patient Name: ??JUMANA RIVERS L ? Med Rec Number: [id number] ? Fin Number: ?[id number] ? Date: ?1990 ? Sex/Age: ? Female 24 years ? Admit Date: ?08/17/2014 ? Discharge Date: 08/17/2014 ? Doctor: ?Gynecology, Resident ? Facility: ?[facility] ? Location: ?CLOG ?* Abnormal ??A Alert ??f Footnote ??^ Corrected ??L Low ??H High ?i Interp Data ??@ Ref Lab ? Chart Type:Cumulative ?* * * * MICROBIOLOGY - GENITAL * * * * ?PROCEDURE: Beta Strep Culture ? SOURCE: Vaginal/Rectal ? COLLECTED: 08/17/14 ??1457 ?BODY SITE: ? STARTED: 08/17/14 ??1649 ? FREE TEXT SOURCE: ? FINAL REPORT ? REPORTED: 08/18/14 6847 ? Streptococcus agalactiae (Group B Streptococci) Resistance to ? penicillin in Group B Streptococcus has not been reported. ? Group B Streptococci are universally susceptible to beta-lactam ? antibiotics and vancomycin. Routine susceptibility testing is ? not performed. ??In penicillin allergic patients, if ? susceptibility testing is requested, the standard panel includes ? erythromycin and clindamycin. ??Please contact the laboratory at ? [phone] if you require this testing. ? ORDER COMMENTS ? (1)Specimen received on an ESwab. ? us Historical Provider MD LAB MICROBIOLOGY - GENERA L ORDERABLES Final Result HISTORICAL RESULTS * Discharge Laboratory Cumulative Report (08/17/2014 12:00 AM PIPING SUPERVISOR) 08/17/2014 Narrative HISTORICAL RESULTS - 08/18/2014 3:33 PM PIPING SUPERVISOR ?[facility] ?Department of Laboratories ? [facility] ? [place] [address] Patient Name: ??SAMREEN JUMANA Paula Med Rec Number: [id number] Fin Number: ?[id number] Date: ?1990 Sex/Age: ? Female 24 years Admit Date: ?08/17/2014 Discharge Date: 08/17/2014 Doctor: ?Gynecology, Resident Facility: ?[facility] Location: ?CLOG Chart Printed: 08/18/2014 15:33 ?? * Abnormal ?? C Critical ?? f Footnote ?? ^ Corrected ?? L Low ?? H High ? i Interp Data ?? @ Reference Lab ? Chart Type:Periodic ? MICROBIOLOGY - ALL TESTS ? PROCEDURE: Beta Strep Culture ?SOURCE: Vaginal/Rectal COLLECTED: 08/17/14 ??1457 ? BODY SITE: STARTED: 08/17/14 ??1649 FREE TEXT SOURCE: FINAL REPORT REPORTED: 08/18/14 1353 Streptococcus agalactiae (Group B Streptococci) Resistance to penicillin in Group B Streptococcus has not been reported. Group B Streptococci are universally susceptible to beta-lactam antibiotics and vancomycin. Routine susceptibility testing is not performed. ??In penicillin allergic patients, if susceptibility testing is requested, the standard panel includes erythromycin and clindamycin. ??Please contact the laboratory at [phone] if you require this testing. ORDER COMMENTS (1)Specimen received on an ESwab. ? MICROBIOLOGY - ALL TESTS ? PROCEDURE: N. gonorrhoeae/C. trachomatis Amplification Test ?SOURCE: Endocervical COLLECTED: 08/17/14 ??1457 ? BODY SITE: STARTED: 08/17/14 ??1656 FREE TEXT SOURCE: FINAL REPORT REPORTED: 08/18/14 1248 Negative for: ??Chlamydia trachomatis rRNA Negative for: Neisseria gonorrhoeae rRNA * * * ??Interpretive Results ??* * * (1)Testing performed by the [employer] APTIMA Combo 2 Assay. This nucleic acid amplification test (NAAT) detects ribosomal RNA (rRNA) from Chlamydia trachomatis and Neisseria gonorrhoeae using target capture,and Hot Stick Worker-Mediated Amplification (TMA). This test is approved by the [place] Food and Drug Administration for endocervical, vaginal, and male urethral swab specimens, in addition to male and female urine specimens. The performance characteristics for these specimen types have been verified by the [facility]. The performance characteristics of this assay for pharyngeal and rectal specimens collected from cervical swab collection devices have been validated and verified by the [facility]. Verification studies support a lack of cross reactivity with other Neisseria species considered normal oropharyngeal bacterial marco. Rectal swab specimens containing excess stool may be inhibitory and result in false negatives for Chlamydia trachomatis or Neisseria gonorrhoeae. The performance characteristics of this test have not been evaluated in women or individuals less than 16 years of age. ? MICROBIOLOGY - GENITAL ? PROCEDURE: Beta Strep Culture ?SOURCE: Vaginal/Rectal COLLECTED: 08/17/14 ??1457 ? BODY SITE: STARTED: 08/17/14 ??1649 FREE TEXT SOURCE: FINAL REPORT REPORTED: 08/18/14 1353 Streptococcus agalactiae (Group B Streptococci) Resistance to penicillin in Group B Streptococcus has not been reported. Group B Streptococci are universally susceptible to beta-lactam antibiotics and vancomycin. Routine susceptibility testing is not performed. ??In penicillin allergic patients, if susceptibility testing is requested, the standard panel includes erythromycin and clindamycin. ??Please contact the laboratory at [phone] if you require this testing. ORDER COMMENTS (1)Specimen received on an ESwab. ? PROCEDURE: N. gonorrhoeae/C. trachomatis Amplification Test ?SOURCE: Endocervical COLLECTED: 08/17/14 ??1457 ? BODY SITE: STARTED: 08/17/14 ??1656 FREE TEXT SOURCE: FINAL REPORT REPORTED: 08/18/14 1248 Negative for: ??Chlamydia trachomatis rRNA Negative for: Neisseria gonorrhoeae rRNA * * * ??Interpretive Results ??* * * (1)Testing performed by the [employer] APTIMA Combo 2 Assay. This nucleic acid amplification test (NAAT) detects ribosomal RNA (rRNA) from Chlamydia trachomatis and Neisseria gonorrhoeae using target capture,and Hot Stick Worker-Mediated Amplification (TMA). This test is approved by the [place] Food and Drug Administration for endocervical, vaginal, and male urethral swab specimens, in addition to male and female urine specimens. The performance characteristics for these specimen types have been verified by the [facility]. The performance characteristics of this assay for pharyngeal and rectal specimens collected from cervical swab collection devices have been validated and verified by the [facility]. Verification studies support a lack of cross reactivity with other Neisseria species considered normal oropharyngeal bacterial marco. Rectal swab specimens containing excess stool may be inhibitory and result in false negatives for Chlamydia trachomatis or Neisseria gonorrhoeae. The performance characteristics of this test have not been evaluated in women or individuals less than 16 years of age. ? MICROBIOLOGY - GENITAL ? PROCEDURE: N. gonorrhoeae/C. trachomatis Amplification Test ?SOURCE: Endocervical COLLECTED: 08/17/14 ??1457 ? BODY SITE: STARTED: 08/17/14 ??1656 FREE TEXT SOURCE: us Historical Provider LAB BLOOD ORDERABLES Becky paula Result HISTORICAL RESULTS documented in this encounter Visit Diagnoses Diagnosis Encounter for supervision of normal in multigravida Special screening examination for other specified viral diseases Screening examination for sexually transmitted disease Special screening examination for other specified chlamydial diseases documented in this encounter
--- OUTSIDE RECORDS SUMMARY | 2024-09-25 12:07 | XMS_ITS | Encounter Summary ---
Author Organization [facility] Care Team Providers Care Behavioral Health Care Manager Name Role Phone Unavailable Primary Care Provider Unavailabl e Encounter Details Date Type Department Care Team (Late st Contact Info) Description 08/10/2014 10:02 AM MANAGER OF HEALTH - 08/10/2014 4:00 PM [facility] Hospital Encounter [facility] Montserrat Woodall MD [address] [place] [address] [address] [place] [address] Social History Tobacco Use Types Packs/Day Years Used Date Smoking Tobacco: Never Assessed Comments Unknown Sex and Gender Information Value Date Recorded Sex Assigned at Not on file Legal Sex Female 1:00 AM MANAGER OF HEALTH Gender Identity Not on file Sexual Orientation Not on file documented as of this encounter Medications at Time of Discharge albuterol HFA (PROVENTIL HFA,VENTOLIN HFA,PROAIR HFA) 90 mcg/actuation inhaler INHALE 1-2 PUFFS EVERY 4-6 HOURS NEEDED AND DIRECTED. for asthma 04/24/2014 [id number] acid ( 19) 29 mg iron- 1 mg tablet,chewable CHEW AND SWALLOW 1 TABLET DAILY. as supplement 07/18/2014 2 documented as of this encounter Plan of Treatment Not on file documented as of this encounter Visit Diagnoses Not on filedocumented in this encounter
--- OUTSIDE RECORDS SUMMARY | 2024-09-25 12:07 | XMS_ITS | Encounter Summary ---
Author Organization [facility] Facility Care Team Providers Care Retail Account Specialist Name Role Phone Unavailable Primary Care Provider Unavailabl e Encounter Details Date Type Department Care Team (Late st Contact Info) Description 08/18/2014 10:06 PM STEAM BONE PRESS TENDER - 08/21/2014 10:58 AM STEAM BONE PRESS TENDER Hospital Encounter [facility] JOSEPH Saha, Alina Mi MD [address] [place] [address] Other and unspecified uterine inertia, antepartum Social History Tobacco Use Types Packs/Day Years Used Date Smoking Tobacco: Never Assessed Comments Unknown Sex and Gender Information Value Date Recorded Sex Assigned at Not on file Legal Sex Female 1:00 AM STEAM BONE PRESS TENDER Gender Identity Not on file Sexual Orientation Not on file documented as of this encounter Last Filed Vital Signs Vital Sign Reading Time Taken Comments Blood Pressure 128/65 08/18/2014 10:08 PM STEAM BONE PRESS TENDER Pulse 101 08/18/2014 10:08 PM STEAM BONE PRESS TENDER Temperature - - Respiratory Rate - - Oxygen Saturation - - Inhaled Oxygen Concentration - - Weight - - Height - - Body Mass Index - - documented in this encounter Medications at Time of Discharge albuterol HFA (PROVENTIL HFA,VENTOLIN HFA,PROAIR HFA) 90 mcg/actuation inhaler INHALE 1-2 PUFFS EVERY 4-6 HOURS NEEDED AND DIRECTED. for asthma 04/24/2014 [id number] acid ( 19) 29 mg iron- 1 mg tablet,chewable CHEW AND SWALLOW 1 TABLET DAILY. as supplement 07/18/2014 2 documented as of this encounter H&P Notes * Provider, MD Jermaine - 08/19/2014 10:10 PM CST Datetime Report Generated by [facility]: 08/19/2014 22:10 Patient Name: JUMANA RIVERS : 1990 Admission Information Arrival Date/Time: 08/19/2014 01:10 (08/19/2014 01:/Mayda Saleh RN) Method of arrival: Wheelchair (08/19/2014 01:Mayda Eugene RN) Admitted From: Emergency Dept (08/19/2014:Mayda Mixon RN) Datetime Report Generated by [facility]: 08/19/2014 22:10 In threatening relationship: No (08/18/2014 22:Silvia/Mayda Saleh RN) History of Domestic Violence: No (08/18/2014 22:Silvia/Mayda Saleh RN) Do you feel UNSAFE at Home: No (08/18/2014 22:Mayda Hartmann RN) Domestic Violence Observed: No (08/18/2014 22:Silvia/Mayda Saleh RN) documented in this encounter Plan of Treatment Not on file documented as of this encounter Visit Diagnoses Diagnosis Other and unspecified uterine inertia, antepartum documented in this encounter
--- OUTSIDE RECORDS SUMMARY | 2024-09-25 12:07 | XMS_ITS | Encounter Summary ---
Author Organization [facility] Facility Care Team Providers Care Certified Surgical Assistant Name Role Phone Unavailable Primary Care Provider Unavailabl e Encounter Details Date Type Department Care Team (Latest Contact Info) Description 08/14/2014 11:44 PM DISABILITY PROGRAM NAVIGATOR - 08/15/2014 3:42 AM DISABILITY PROGRAM NAVIGATOR Hospital Encounter [facility] Waleska Gross MD [address] [facility] [phone] [place] [address] Other complication of , antepartum; Other specified indications for care or intervention related to labor and delivery, antepartum; Late vomiting of , antepartum; Other current maternal conditions classifiable elsewhere, antepartum; Maternal anemia, antepartum; Abdominal pain; Dizziness and giddiness; Headache; Anemia; Carrier or suspected carrier of group B Streptococcus; Asthma; Personal history of other specified diseases Social History Tobacco Use Types Packs/Day Years Used Date Smoking Tobacco: Never Assessed Comments Unknown Sex and Gender Information Value Date Recorded Sex Assigned at Not on file Legal Sex Female 1:00 AM DISABILITY PROGRAM NAVIGATOR Gender Identity Not on file Sexual Orientation Not on file documented as of this encounter Last Filed Vital Signs Vital Sign Reading Time Taken Comments Blood Pressure 124/80 08/15/2014 12:01 AM DISABILITY PROGRAM NAVIGATOR Pulse 100 08/15/2014 12:10 AM DISABILITY PROGRAM NAVIGATOR Temperature - - Respiratory Rate - - Oxygen Saturation - - Inhaled Oxygen Concentration - - Weight - - Height - - Body Mass Index - - documented in this encounter Medications at Time of Discharge albuterol HFA (PROVENTIL HFA,VENTOLIN HFA,PROAIR HFA) 90 mcg/actuation inhaler INHALE 1-2 PUFFS EVERY 4-6 HOURS NEEDED AND DIRECTED. for asthma 04/24/2014 [id number] ( 19) 29 mg iron- 1 mg tablet,chewable CHEW AND SWALLOW 1 TABLET DAILY. as supplement 07/18/2014 2 documented as of this encounter H&P Notes * Provider, MD Jermaine - 08/15/2014 3:42 AM CST Triage Record Datetime Report Generated by CPN: 08/15/2014 22:10 Patient Name: JUMANA RIVERS : 1990 Datetime: 08/14/2014 23:58 Attending Physician: [facility] (08/14/2014 23:58/Ankita Mera MD) Datetime: 08/14/2014 23:53 Admission Information Arrival Date/Time: 08/14/2014 23:35 (08/14/2014 23:53/Marina Blanco RN) Method of arrival: Wheelchair (08/14/2014 23:53/Marina Blanco RN) Admitted From: Home (08/14/2014 23:Desi/Marina Blanco RN) Time Provider Notified: 08/14/2014 23:55 (08/14/2014 23:Desi/Marina Blanco RN) Provider: dr webb (08/14/2014 23:Desi/Marina Blanco RN) Movement: Present (08/14/2014 23:Desi/Marina Blanco RN) Contractions: Irregular (08/14/2014 23:Desi/Marina Blanco RN) Time contractions began: 08/14/2014 07:00 (08/14/2014 23:Desi/Marina Blanco RN) Contraction Frequency: too far apaart (08/14/2014 23:Marina Moe RN) Rupture of membrane: Denies (08/14/2014 23:Marina Moe RN) Recent Sexual [place]: Denies (08/14/2014 23:Desi/Marina Blanco RN) Vaginal discharge: Denies (08/14/2014 23:Desi/Marina Blanco RN) Abdominal Trauma: Not Applicable (08/14/2014 23:Desi/Marina Blanco RN) Vaginal Bleeding : None (08/14/2014 23:Marina Moe RN) Patient Complaints: Cramping; Nausea; Dizziness (08/14/2014 23:Marina Moe RN) Other Patient Complaints: dizziness since 0700 (08/14/2014 23:Desi/Marina Blanco RN) documented in this encounter Plan of Treatment Not on file documented as of this encounter Procedures Procedure Name Priority Date/Time Associated Diagnosis Comments BLOOD GLUCOSE, POC Routine 08/15/2014 12 :35 AM DISABILITY PROGRAM NAVIGATOR DISCHARGE LABORATORY CUMULATIVE REPORT Routine 08/15/2014 12:00 AM DISABILITY PROGRAM NAVIGATOR documented in this encounter Results * Blood glucose, POC (08/15/2014 12:35 AM DISABILITY PROGRAM NAVIGATOR) Glucose, POC, bld 91 70 - 199 mg/dl HISTORICAL RESULTS Blood specimen (specimen) 08/15/2014 12:35 AM DISABILITY PROGRAM NAVIGATOR us Waleska Layne MD LAB BLOOD ORDERABLES F inal Result HISTORICAL RESULTS * Discharge Laboratory Cumulative Report (08/15/2014 12:00 AM DISABILITY PROGRAM NAVIGATOR) 08/15/2014 Narrative HISTORICAL RESULTS - 08/15/2014 7:17 AM DISABILITY PROGRAM NAVIGATOR ?[facility] ?Department of Laboratories ? [address] [facility] [address] ? [place], [place] [address] Patient Name: ??RIVERSJUMANA Gonzalez Med Rec Number: [id number] Fin Number: ?[id number] Date: ?1990 Sex/Age: ? Female 24 years Admit Date: ?08/14/2014 Discharge Date: 08/15/2014 Doctor: ?Waleska Layne Facility: ?[facility] Location: ?[place] Chart Printed: 08/15/2014 07:17 ?? * Abnormal ?? C Critical ?? f Footnote ?? ^ Corrected ?? L Low ?? H High ? i Interp Data ?? @ Reference Lab ?Chart Type:Cumulative ?POINT OF CARE TESTS ? Chemistry ?Test: Glucose POC ? Reference: [[id number]] ? Units: mg/dL 08/15/2014 ?? 00:35:00 ?? 91 us Historical Provider LAB BLOOD ORDERABLES Becky paula Result HISTORICAL RESULTS documented in this encounter Visit Diagnoses Diagnosis Other complication of , antepartum Other specified indications for care or intervention related to labor and delivery, antepartum Late vomiting of , antepartum Other current maternal conditions classifiable elsewhere, antepartum Maternal anemia, antepartum Anemia, antepartum Abdominal pain Abdominal pain, unspecified site Dizziness and giddiness Headache Anemia Unspecified anemia Carrier or suspected carrier of group B Streptococcus Carrier or suspected carrier of Group B streptococcus Asthma Unspecified asthma Personal history of other specified diseases documented in this encounter
--- OUTSIDE RECORDS SUMMARY | 2024-09-25 12:07 | XMS_ITS | Encounter Summary ---
Author Organization [facility] Facility Care Team Providers Care Senior Asic Engineer Name Role Phone Unavailable Primary Care Provider Unavailabl e Encounter Details Date Type Department Care Team (Late st Contact Info) Description 08/18/2014 9:41 PM TELEGRAPH EDITOR - 08/18/2014 9:48 PM TELEGRAPH EDITOR Hospital Encounter [facility] Social History Tobacco Use Types Packs/Day Years Used Date Smoking Tobacco: Never Assessed Comments Unknown Sex and Gender Information Value Date Recorded Sex Assigned at Not on file Legal Sex Female 1:00 AM TELEGRAPH EDITOR Gender Identity Not on file Sexual Orientation Not on file documented as of this encounter Medications at Time of Discharge albuterol HFA (PROVENTIL HFA,VENTOLIN HFA,PROAIR HFA) 90 mcg/actuation inhaler INHALE 1-2 PUFFS EVERY 4-6 HOURS NEEDED AND DIRECTED. for asthma 04/24/2014 [id number] acid ( 19) 29 mg iron- 1 mg tablet,chewable CHEW AND SWALLOW 1 TABLET DAILY. as supplement 07/18/2014 2 documented as of this encounter Plan of Treatment Not on file documented as of this encounter Visit Diagnoses Not on filedocumented in this encounter
--- OUTSIDE RECORDS SUMMARY | 2024-09-25 12:08 | XMS_ITS | Encounter Summary ---
Author Organization [facility] Facility Care Team Providers Care Livestock Nutrition Territory Manager Name Role Phone Unavailable Primary Care Provider Unavailabl e Encounter Details Date Type Department Care Team (Late st Contact Info) Description 07/18/2014 1:40 PM JUNIOR ADMINISTRATIVE ASSISTANT - 07/18/2014 4:00 PM JUNIOR ADMINISTRATIVE ASSISTANT Hospital Encounter [facility] Isaiah Hull MD [address] [place] [phone] [place] [address] Gynecology Encounter for supervision of normal in multigravida Social History Tobacco Use Types Packs/Day Years Used Date Smoking Tobacco: Never Assessed Comments Unknown Sex and Gender Information Value Date Recorded Sex Assigned at Not on file Legal Sex Female 1:00 AM JUNIOR ADMINISTRATIVE ASSISTANT Gender Identity Not on file Sexual Orientation Not on file documented as of this encounter Medications at Time of Discharge albuterol HFA (PROVENTIL HFA,VENTOLIN HFA,PROAIR HFA) 90 mcg/actuation inhaler INHALE 1-2 PUFFS EVERY 4-6 HOURS NEEDED AND DIRECTED. for asthma 04/24/2014 [id number] acid ( 19) 29 mg iron- 1 mg tablet,chewable CHEW AND SWALLOW 1 TABLET DAILY. as supplement 07/18/2014 2 documented as of this encounter Plan of Treatment Not on file documented as of this encounter Visit Diagnoses Diagnosis Encounter for supervision of normal in multigravida documented in this encounter
--- OUTSIDE RECORDS SUMMARY | 2024-09-25 12:08 | XMS_ITS | Encounter Summary ---
Author Organization [facility] Facility Care Team Providers Care Dealer Account Manager Name Role Phone Unavailable Primary Care Provider Unavailabl e Encounter Details Date Type Department Care Team (Late st Contact Info) Description 07/04/2014 10:06 AM CDT - 07/04/2014 4:00 PM CDT Hospital Encounter [facility] Isaiah Hull MD [address] [place] [phone] [place] [address] Gynecology Encounter for supervision of normal in multigravida Social History Tobacco Use Types Packs/Day Years Used Date Smoking Tobacco: Never Assessed Comments Unknown Sex and Gender Information Value Date Recorded Sex Assigned at Not on file Legal Sex Female 1:00 AM LOGISTICS SUPPORT Gender Identity Not on file Sexual Orientation Not on file documented as of this encounter Medications at Time of Discharge albuterol HFA (PROVENTIL HFA,VENTOLIN HFA,PROAIR HFA) 90 mcg/actuation inhaler INHALE 1-2 PUFFS EVERY 4-6 HOURS NEEDED AND DIRECTED. for asthma 04/24/2014 documented as of this encounter Plan of Treatment Not on file documented as of this encounter Visit Diagnoses Diagnosis Encounter for supervision of normal in multigravida documented in this encounter
--- OUTSIDE RECORDS SUMMARY | 2024-09-25 12:08 | XMS_ITS | Encounter Summary ---
Author Organization [facility] Healthcare Address [address] [place] [address] Care Team Providers Care Chute Man Name Role Phone Unavailable Primary Care Provider Unavailabl e Encounter Details Date Type Department Care Team (Late st Contact Info) Description 06/17/2014 9:59 AM CDT - 06/17/2014 1:30 PM CDT Hospital Encounter [facility] Kirill Carranza MD [address] [facility] [address] [place] [address] Urinary tract infection; Abdominal pain Social History Tobacco Use Types Packs/Day Years Used Date Smoking Tobacco: Never Assessed Comments Unknown Sex and Gender Information Value Date Recorded Sex Assigned at Not on file Legal Sex Female 1:00 AM ADVERTISING COLUMNIST Gender Identity Not on file Sexual Orientation [...] Name Priority Date/Time Associated Diagnosis Comments URINE MICROSCOPY Routine 06/17/2014 10:3 5 AM CDT URINALYSIS Routine 06/17/2014 5:35 AM CDT URINE MICROBIOLOGY Routine 06/17/2014 12 :00 AM CDT DISCHARGE LABORATORY CUMULATIVE REPORT 06/17/2014 documented in this encounter Results * (ABNORMAL) Urine microscopy (06/17/2014 10:35 AM CDT) WBC, ur 10 - 15(A) Negative,0-1 ,2-5 /hpf HISTORICAL RESULTS RBC, ur 0 - 1 Negative,0-1 /hpf HISTORICAL RESULTS Epithelial cells, ur 5 - 10 Negative,0-1 ,2-5,5-10,10 -15,15-25 /hpf HISTORICAL RESULTS Bacteria, ur 2+(A) Negative HISTORI SNATHOSH RESULTS Mucus, ur 2+(A) Negative HISTORICAL RESULTS Amorphous crystals, ur Negative Negative HISTORICAL RESULTS Urine 06/17/2014 10:3 5 AM CDT Benny TEJEDA LAB BLOOD ORDERA BLES Final Result Performing Organization Address [facility] de Phone Number HISTORICAL RESULTS * (ABNORMAL) Urinalysis (06/17/2014 5:35 AM CDT) Color, ur Yellow Yellow,Straw ,Colorless HISTORICAL RESULTS Clarity, ur Clear Clear HISTORIC AL RESULTS Specific gravity, ur 1.025 1.001 - 1.035 HISTORICAL RESULTS pH, ur 7.0 4.6 - 8.0 HISTORICAL RESULTS Protein, ur Trace(A) Negative HISTORIC AL RESULTS Glucose, ur Negative Negative HISTORIC AL RESULTS Ketones, ur Negative Negative HISTORIC AL RESULTS Bilirubin, ur Negative Negative HISTOR ICAL RESULTS U Blood Trace(A) Negative HISTORICAL RESULTS Urobilinogen, quant, ur 1.0 0.2,1.0 mg/dl HISTORICAL RESULTS Nitrites, ur Negative Negative HISTORI SANTHOSH RESULTS Leukocyte esterase, ur 3+(A) Negative HISTORICAL RESULTS Urine 06/17/2014 5:35 AM CDT Narrative HISTORICAL RESULTS - 06/17/2014 5:44 AM CDT Special Instructions: Benny TEJEDA LAB BLOOD ORDERA BLES Final Result Performing Organization Address [facility] de Phone Number HISTORICAL RESULTS * Urine Microbiology (06/17/2014 12:00 AM CDT) 06/17/2014 12:0 0 AM CDT Narrative HISTORICAL RESULTS - 06/18/2014 12:35 PM CDT ? [facility] Microbiology ? [address] ??[place], [place] ??[address] ? Tele: ?Nehal Serrano M.D. - [employer] News Producer - Randi Curry - Quality Control Tech ?? Patient: JUMANA RIVERS ? Admission #: ??[id number] ?? : 1990 ?Location:[facility] ?? Gender: F ?? Admit Date: 06/17/2014 ? = = = = = = = = = = = = = = = = = = = = = = = = = = = = = = = = = = = = = = Urine Culture ? Final ?? Urine ? [facility] ?? Collected: ??06/17/2014 10:35 ?? Inoculated: ??06/17/2014 11:47 ?? Report Date: ??06/18/2014 11:10 ? This test ordered via reflex expert rule. ?? Culture Result ?Growth consistent with leticia-urethral marco. ?? Performed at [facility] Main [facility], [address] [place] [address], [place], [place], [place] ?? [place], [address] = = = = = = = = = = = = = = = = = = = = = = = = = = = = = = = = = = = = = ? Physician: ?[facility] Microbiology Report-[facility]in[facility] ? Historical Provider MD [facility] - GENERA L ORDERABLES Final Result HISTORICAL RESULTS * DISCHARGE LABORATORY CUMULATIVE REPORT (06/17/2014) Narrative 06/17/2014 Ordered by an unspecified provider. Historical Provider LAB BLOOD ORDERABLES Becky l Result documented in this encounter Visit Diagnoses Diagnosis Urinary tract infection Urinary tract infection, site not specified Abdominal pain Abdominal pain, unspecified site documented in this encounter
--- OUTSIDE RECORDS SUMMARY | 2024-09-25 12:08 | XMS_ITS | Encounter Summary ---
Author Organization [facility] Facility Care Team Providers Care Bagging Machine Operator Name Role Phone Unavailable Primary Care Provider Unavailabl e Encounter Details Date Type Department Care Team (Late st Contact Info) Description 05/22/2014 8:50 AM CDT - 05/22/2014 4:00 PM CDT Hospital Encounter [facility] Isaiah Hull MD [address] [place] [phone] [place] [address] Gynecology Encounter for supervision of normal in multigravida Social History Tobacco Use Types Packs/Day Years Used Date Smoking Tobacco: Never Assessed Comments Unknown Sex and Gender Information Value Date Recorded Sex Assigned at Not on file Legal Sex Female 1:00 AM DIRECTOR OF PHYSICAL THERAPY Gender Identity Not on file Sexual Orientation [...] Procedure Name Priority Date/Time Associated Diagnosis Comments PLASMA ADA GESTATION DIABETES GLUCOSE, 75G, 2 HOUR Routine 05/22/2014 11:45 AM CDT PLASMA ADA GESTATION DIABETES GLUCOSE, 75G, 1 HOUR Routine 05/22/2014 10:45 AM CDT PLASMA ADA GESTATION DIABETES GLUCOSE, 75G, FASTING Routine 05/22/2014 9:38 AM CDT BLOOD GLUCOSE, POC Routine 05/22/2014 9: 36 AM CDT PLASMA ADA GESTATION DIABETES GLUCOSE, 75G, PRE Routine 05/22/2014 9:33 AM CDT SERUM FERRITIN Routine 05/22/2014 4:38 AM CDT BLOOD CELL COUNT Routine 05/22/2014 4:38 AM CDT DISCHARGE LABORATORY CUMULATIVE REPORT Routine 05/22/2014 12:00 AM CDT documented in this encounter Results * Plasma ADA Gestation Diabetes Glucose, 75g, 2 Hour (05/22/2014 11:45 AM CDT) Glucose, 2 hr, ADA, 75g, pl 89 70 - 152 mg/dl HISTORICAL RESULTS Plasma 05/22/2014 11:4 5 AM CDT Megan Larkin LAB BLOOD ORDERABLES Final Resu lt Performing Organization Address [facility] de Phone Number HISTORICAL RESULTS * Plasma ADA Gestation Diabetes Glucose, 75g, 1 Hour (05/22/2014 10:45 AM CDT) Glucose, 1 hr, ADA, 75g, pl 116 70 - 179 mg/dl HISTORICAL RESULTS Plasma 05/22/2014 10:4 5 AM CDT Megan Larkin LAB BLOOD ORDERABLES Final Resu lt Performing Organization Address City/[facility] Co de Phone Number HISTORICAL RESULTS * Plasma ADA Gestation Diabetes Glucose, 75g, Fasting (05/22/2014 9:38 AM CDT) Glucose, fasting 76 70 - 91 mg/dl HISTORICAL RESULTS Comment: Interpretive Data The diagnosis of GDM is made when any of the following plasma glucose values are exceeded: Fasting: > or = to ??92 mg/dL 1 Hour: ??> or = to 180 mg/dL 2 Hour: ??> or = to 153 mg/dL Literature reference: Diabetes Care 2013;36:36:S67-S74. Current interpretive data was last revised on 12. Plasma 05/22/2014 9:38 AM CDT us Megan Larkin LAB BLOOD ORDERABLES Final Resu lt Performing Organization Address [facility] de Phone Number HISTORICAL RESULTS * Blood glucose, POC (05/22/2014 9:36 AM CDT) Glucose, POC, bld 78 70 - 199 mg/dl HISTORICAL RESULTS Blood specimen (specimen) 05/22/2014 9:36 AM CDT Megan DevenMarcelo Trae LAB BLOOD ORDERABLES Final Resu lt Performing Organization Address [facility] de Phone Number HISTORICAL RESULTS * Plasma ADA Gestation Diabetes Glucose, 75G, Pre (05/22/2014 9:33 AM CDT) Glucose, meter, POC 78 70 - 91 mg/dl HISTORICAL RESULTS Comment: Interpretive Data Glucose meter result not for diagnostic purposes. ??Diabetes Care 1996; 19 (Suppl):562-6. Current interpretive data was last revised on 12. Plasma 05/22/2014 9:33 AM CDT us Megan Larkin LAB BLOOD ORDERABLES Final Resu lt Performing Organization Address [facility] de Phone Number HISTORICAL RESULTS * (ABNORMAL) Serum ferritin (05/22/2014 4:38 AM CDT) Ferritin 9(L) 10 - 291 ng/ml HISTORICAL RESULTS Serum 05/22/2014 4:38 AM CDT Narrative HISTORICAL RESULTS - 05/22/2014 7:03 AM CDT {75g fasting 2 hr OGTT with blood draws at 0 hr, 1 hr, and 2 hr.} Megan PaulaMarcelo Trae LAB BLOOD ORDERABLES Final Resu lt Performing Organization Address City/State/[facility] Co de Phone Number HISTORICAL RESULTS * (ABNORMAL) Blood cell count [CBC] express (05/22/2014 4:38 AM CDT) WBC 7.8 3.8 - 9.8 K/cumm HISTORICAL RESULTS RBC 3.83(L) 3.90 - 5.00 M/cumm HISTORICAL RESULTS Hgb 10.6(L) 12.1 - 15.1 g/dl HISTORICAL RESULTS Hct 32.5(L) 36.1 - 44.3 % HISTORICAL RESULTS MCV 84.8 80.0 - 97.6 fl HISTORICAL RESULTS MCH 27.8 26.7 - 33.7 pg HISTORICAL RESULTS MCHC 32.8 32.7 - 35.5 g/dl HISTORICAL RESULTS Rdw 15.6(H) 11.8 - 14.6 % HISTORICAL RESULTS Platelets 285 140 - 440 K/cumm HISTORICAL RESULTS MPV 8.3 6.8 - 10.4 fl HISTORICAL RESULTS Blood specimen (specimen) 05/22/2014 4:38 AM CDT Narrative HISTORICAL RESULTS - 05/22/2014 5:44 AM CDT {75g fasting 2 hr OGTT with blood draws at 0 hr, 1 hr, and 2 hr.} Megan Dior Trae LAB BLOOD ORDERABLES Final Resu lt Performing Organization Address [facility] Co de Phone Number HISTORICAL RESULTS * Discharge Laboratory Cumulative Report (05/22/2014 12:00 AM CDT) 05/22/2014 Narrative HISTORICAL RESULTS - 05/22/2014 3:32 PM CDT ?[facility] ?Department of Laboratories ? [address] [facility] [place] ? [place] [address] Patient Name: ??JUMANA RIVERS Med Rec Number: [id number] Fin Number: ?[id number] Date: ?1990 Sex/Age: ? Female 24 years Admit Date: ?05/22/2014 Discharge Date: 05/22/2014 Doctor: ?Gynecology, Resident Facility: ?[facility] Location: ?CLOG Chart Printed: 05/22/2014 15:32 ?? * Abnormal ?? C Critical ?? f Footnote ?? ^ Corrected ?? L Low ?? H High ? i Interp Data ?? @ Reference Lab ? Chart Type:Periodic ? GLUCOSE TOLERANCE TESTING ? Glucose Challenge Testing (Gestational Diabetes) ?Test: ADA GDM Pre 75g i ??ADA GDM Fasting i ? Reference: [70-91] ?[70-91] ? Units: mg/dL ?mg/dL 05/22/2014 ?? 09:38:00 ?76 05/22/2014 ?? 09:33:00 ?? 78 05/22/2014 09:33:00 ADA GDM Pre 75g: Interpretive Data Glucose meter result not for diagnostic purposes. ??Diabetes Care 1996; 19 (Suppl):562-6. Current interpretive data was last revised on 12. 05/22/2014 09:38:00 ADA GDM Fasting: Interpretive Data The diagnosis of GDM is made when any of the following plasma glucose values are exceeded: Fasting: > or = to ??92 mg/dL 1 Hour: ??> or = to 180 mg/dL 2 Hour: ??> or = to 153 mg/dL Literature reference: Diabetes Care 2013;36:36:S67-S74. Current interpretive data was last revised on 12. ?Test: ADA GDM 1H 75g ??ADA GDM 2H 75g ? Reference: [70-179] ?[70-152] ? Units: mg/dL ? mg/dL 05/22/2014 ?? 11:45:00 ? 89 05/22/2014 ?? 10:45:00 ?? 116 ?ANEMIA TESTING ?Test: Ferritin ? Reference: [10-291] ? Units: ng/mL 05/22/2014 ?? 09:38:28 ?? 9 ??L 05/22/2014 09:38:28 ??Ferritin: 75g fasting 2 hr OGTT with blood draws at 0 hr, 1 hr, and 2 hr. us Historical Provider LAB BLOOD ORDERABLES Becky paula Result HISTORICAL RESULTS documented in this encounter Visit Diagnoses Diagnosis Encounter for supervision of normal in multigravida documented in this encounter
--- OUTSIDE RECORDS SUMMARY | 2024-09-25 12:08 | XMS_ITS | Encounter Summary ---
Author Organization [facility] Facility Care Team Providers Care Senior Commissions Analyst Name Role Phone Unavailable Primary Care Provider Unavailabl e Encounter Details Date Type Department Care Team (Late st Contact Info) Description 06/20/2014 8:44 AM CDT - 06/20/2014 4:00 PM CDT Hospital Encounter [facility] Isaiah Hull MD [address] [facility] [place] [phone] [place] [address] Gynecology Encounter for supervision of normal in multigravida; Need for prophylactic vaccination and inoculation against influenza Social History Tobacco Use Types Packs/Day Years Used Date Smoking Tobacco: Never Assessed Comments Unknown Sex and Gender Information Value Date Recorded Sex Assigned at Not on file Legal Sex Female 1:00 AM MANAGER DRUG SAFETY Gender Identity Not on file Sexual Orientation [...] Encounter for supervision of normal in multigravida Need for prophylactic vaccination and inoculation against influenza documented in this encounter
--- OUTSIDE RECORDS SUMMARY | 2024-09-25 12:08 | XMS_ITS | Encounter Summary ---
Author Organization [facility] Healthcare Address [address] [place] [address] Care Team Providers Care Men'S Swim Coach Name Role Phone Unavailable Primary Care Provider Unavailabl e Encounter Details Date Type Department Care Team (Late st Contact Info) Description 05/16/2014 8:11 AM CDT - 05/16/2014 12:40 PM CDT Hospital Encounter [facility] Ja Mazariegos MD [address] [place] [address] Other and unspecified noninfectious gastroenteritis and colitis; History of allergy to other antibiotic agent Social History Tobacco Use Types Packs/Day Years Used Date Smoking Tobacco: Never Assessed Comments Unknown Sex and Gender Information Value Date Recorded Sex Assigned at Not on file 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 Gender Identity Not on file Sexual [...] Date/Time Associated Diagnosis Comments URINE MICROSCOPY Routine 05/16/2014 9:05 AM CDT URINALYSIS Routine 05/16/2014 4:05 AM CDT PLASMA BASIC METABOLIC PANEL Routine 05/16/2014 3:45 AM CDT BLOOD CELL COUNT (CBC), MORPHOLOGIC EXAM Routine 05/16/2014 3:45 AM CDT DISCHARGE LABORATORY CUMULATIVE REPORT 05/16/2014 documented in this encounter Results * (ABNORMAL) Urine microscopy (05/16/2014 9:05 AM CDT) WBC, ur 0 - 1 Negative,0-1 ,2-5 /hpf HISTORICAL RESULTS Amorphous crystals, ur Negative Negative HISTORICAL RESULTS RBC, ur 0 - 1 Negative,0-1 /hpf HISTORICAL RESULTS Epithelial cells, ur 5 - 10 Negative,0-1 ,2-5,5-10,10 -15,15-25 /hpf HISTORICAL RESULTS Bacteria, ur 1+(A) Negative HISTORI SANTHOSH RESULTS Mucus, ur 4+(A) Negative HISTORICAL RESULTS Urine 05/16/2014 9:05 AM CDT Ja Mazariegos MD LAB BLOOD ORDERABLES Final Result HISTORICAL RESULTS * (ABNORMAL) Urinalysis (05/16/2014 4:05 AM CDT) Color, ur Yellow Yellow,Straw ,Colorless HISTORICAL RESULTS Clarity, ur Hazy(A) Clear HISTORIC AL RESULTS Specific gravity, ur >=1.030 1.001 - 1.035 HISTORICAL RESULTS pH, ur 6.0 4.6 - 8.0 HISTORICAL RESULTS Protein, ur Negative Negative HISTORIC AL RESULTS Glucose, ur Negative Negative HISTORIC AL RESULTS Ketones, ur Trace(A) Negative HISTORIC AL RESULTS Bilirubin, ur Negative Negative HISTOR ICAL RESULTS U Blood Trace(A) Negative HISTORICAL RESULTS Urobilinogen, quant, ur 0.2 0.2,1.0 mg/dl HISTORICAL RESULTS Nitrites, ur Negative Negative HISTORI SANTHOSH RESULTS Leukocyte esterase, ur Trace(A) Negative HISTORICAL RESULTS Urine 05/16/2014 4:05 AM CDT Narrative HISTORICAL RESULTS - 05/16/2014 4:24 AM CDT Special Instructions: Ja Mazariegos MD LAB BLOOD ORDERABLES Final Result Performing Organization Address [facility] de Phone Number HISTORICAL RESULTS * (ABNORMAL) Plasma basic metabolic panel (05/16/2014 3:45 AM CDT) Pathologist [facility] eGFR >60 ml/min/1.7 3 m2 HISTORICAL RESULTS Comment: GFR Reference Range: = > 60 mL/min/1.73 m2 This result has been calculated assuming the patient is Non-. ??If the patient is , please multiply this result by 1.21. Sodium 136 136 - 145 mmol/L HISTORICAL RESULTS K, pl 3.5 3.5 - 5.1 mmol/L HISTORICAL RESULTS Chloride 104 98 - 107 mmol/L HISTORICAL RESULTS CO2 22 22 - 29 mmol/L HISTORICAL RESULTS A. gap 10 5 - 15 mmol/L HISTORICAL RESULTS Glucose 84 65 - 99 mg/dl HISTORICAL RESULTS Comment: If specimen is from a non-fasting patient, Reference Range is 65-199 mg/dL. BUN 6(L) 7 - 18 mg/dl HISTORICAL RESULTS Creatinine 0.5 0.5 - 0.9 mg/dl HISTORICAL RESULTS Calcium 8.6 8.6 - 10.2 mg/dl HISTORICAL RESULTS Plasma 05/16/2014 3:45 AM CDT Narrative HISTORICAL RESULTS - 05/16/2014 4:29 AM CDT Special Instructions: Ja Mazariegos MD LAB BLOOD ORDERABLES Final Result Performing Organization Address [facility] de Phone Number HISTORICAL RESULTS * (ABNORMAL) Blood cell count (CBC), morphologic exam (05/16/2014 3:45 AM CDT) Pathologist [facility] WBC 9.9 4.5 - 11.0 K/cumm HISTORICAL RESULTS RBC 3.87 3.80 - 5.40 M/cumm HISTORICAL RESULTS Hgb 10.7(L) 12.0 - 15.0 g/dl HISTORICAL RESULTS Hct 33.0(L) 37.0 - 47.0 % HISTORICAL RESULTS MCV 85.2 82.0 - 96.0 fl HISTORICAL RESULTS MCH 27.7 27.0 - 33.0 pg HISTORICAL RESULTS MCHC 32.5 32.0 - 36.0 g/dl HISTORICAL RESULTS Rdw 16.5(H) 11.5 - 14.5 % HISTORICAL RESULTS Platelets 279 140 - 440 K/cumm HISTORICAL RESULTS MPV 8.3 7.4 - 10.4 fl HISTORICAL RESULTS Neutrophils 76.0(H) 42.0 - 75.0 % HISTORICAL RESULTS Lymphocytes 13.6(L) 20.0 - 50.0 % HISTORICAL RESULTS Monos 7.9 0.0 - 9.0 % HISTORICAL RESULTS Eosinophils 2.2 0.0 - 10.0 % HISTORICAL RESULTS Basophils 0.3 0.0 - 1.0 % HISTORICAL RESULTS Neutrophils, abs 7.5 1.9 - 8.3 K/cumm HISTORICAL RESULTS Lymphocytes, abs 1.3 0.9 - 5.6 K/cumm HISTORICAL RESULTS Monocytes, absolute 0.8 0.1 - 1.0 K/cumm HISTORICAL RESULTS Eosinophils, abs 0.2 0.0 - 1.1 K/cumm HISTORICAL RESULTS Basophils, abs 0.0 0.0 - 0.1 K/cumm HISTORICAL RESULTS Blood specimen (specimen) 05/16/2014 3:45 AM CDT Narrative HISTORICAL RESULTS - 05/16/2014 4:16 AM CDT Special Instructions: Ja Mazariegos MD LAB BLOOD ORDERABLES Final Result HISTORICAL RESULTS * DISCHARGE LABORATORY CUMULATIVE REPORT (05/16/2014) Narrative 05/16/2014 Ordered by an unspecified provider. Historical Provider LAB BLOOD ORDERABLES Becky l Result documented in this encounter Visit Diagnoses Diagnosis Other and unspecified noninfectious gastroenteritis and colitis History of allergy to other antibiotic agent documented in this encounter
--- OUTSIDE RECORDS SUMMARY | 2024-09-25 12:09 | XMS_ITS | Encounter Summary ---
Author Organization [facility] Facility Care Team Providers Care Count Team Member Name Role Phone Unavailable Primary Care Provider Unavailabl e Encounter Details Date Type Department Care Team (Late st Contact Info) Description 04/24/2014 1:18 PM CDT - 04/24/2014 4:00 PM CDT Hospital Encounter [facility] Isaiah Hull MD [phone] [place] [address] Gynecology Encounter for supervision of normal in multigravida; Screening examination for sexually transmitted disease; Special screening examination for other specified chlamydial diseases Social History Tobacco Use Types Packs/Day Years Used Date Smoking Tobacco: Never Assessed Comments Unknown Sex and Gender Information Value Date Recorded Sex Assigned at Not on file 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 ??This nucleic acid amplification test (NAAT) detects ribosomal RNA (rRNA) from Chlamydia trachomatis and Neisseria gonorrhoeae using target capture, and Health And Physical Education Professor-Mediated Amplification (TMA). ??This test is approved by the [place] Food and Drug Administration for endocervical, vaginal, and male urethral swab specimens, in addition to male and female urine specimens. ??The performance characteristics for these specimen types have been verified by the [facility]. ??The performance characteristics of this test have not been evaluated in women or individuals less than 16 years of age. Current interpretive data was last revised on 2013. Narrative HISTORICAL RESULTS - 04/25/2014 12:14 PM CDT Negative for: ??Chlamydia trachomatis rRNA Negative for: ??Neisseria gonorrhoeae rRNA us Historical Provider LAB MICROBIOLOGY - GENERA L ORDERABLES Final Result HISTORICAL RESULTS * Discharge Laboratory Cumulative Report (04/24/2014 12:00 AM CDT) 04/24/2014 Narrative HISTORICAL RESULTS - 04/25/2014 3:27 PM CDT ?[facility] ?Department of Laboratories ? [address] [facility] ? [place] [address] Patient Name: ??JUMANA RIVERS [facility] Rec Number: [id number] Fin Number: ?[id number] Date: ?1990 Sex/Age: ? Female 24 years Admit Date: ?04/24/2014 Discharge Date: 04/24/2014 Doctor: ?Gynecology, Resident Facility: ?[facility] Location: ?CLOG Chart Printed: 04/25/2014 15:27 ?? * Abnormal ?? C Critical ?? f Footnote ?? ^ Corrected ?? L Low ?? H High ? i Interp Data ?? @ Reference Lab ? Chart Type:Periodic ? MICROBIOLOGY - ALL TESTS ? PROCEDURE: N. gonorrhoeae/C. trachomatis Amplification Test ?SOURCE: Urine COLLECTED: 04/24/14 ??0846 ? BODY SITE: STARTED: 04/24/14 ??1801 FREE TEXT SOURCE: FINAL REPORT REPORTED: 04/25/14 1212 Negative for: ??Chlamydia trachomatis rRNA Negative for: Neisseria gonorrhoeae rRNA * * * ??Interpretive Results ??* * * (1)Testing performed by the [employer] APTIMA Combo 2 Assay. This nucleic acid amplification test (NAAT) detects ribosomal RNA (rRNA) from Chlamydia trachomatis and Neisseria gonorrhoeae using target capture, and Health And Physical Education Professor-Mediated Amplification (TMA). ??This test is approved by the [place] Food and Drug Administration for endocervical, vaginal, and male urethral swab specimens, in addition to male and female urine specimens. ??The performance characteristics for these specimen types have been verified by the [facility]. The performance characteristics of this test have not been evaluated in women or individuals less than 16 years of age.Current interpretive data was last revised on 2013. ? MICROBIOLOGY - GENITAL ? PROCEDURE: N. gonorrhoeae/C. trachomatis Amplification Test ?SOURCE: Urine COLLECTED: 04/24/14 ??0846 ? BODY SITE: STARTED: 04/24/14 ??1801 FREE TEXT SOURCE: FINAL REPORT REPORTED: 04/25/14 1212 Negative for: ??Chlamydia trachomatis rRNA Negative for: Neisseria gonorrhoeae rRNA * * * ??Interpretive Results ??* * * (1)Testing performed by the [employer] APTIMA Combo 2 Assay. This nucleic acid amplification test (NAAT) detects ribosomal RNA (rRNA) from Chlamydia trachomatis and Neisseria gonorrhoeae using target capture, and Health And Physical Education Professor-Mediated Amplification (TMA). ??This test is approved by the [place] Food and Drug Administration for endocervical, vaginal, and male urethral swab specimens, in addition to male and female urine specimens. ??The performance characteristics for these specimen types have been verified by the [facility]. The performance characteristics of this test have not been evaluated in women or individuals less than 16 years of age.Current interpretive data was last revised on 2013. us Historical Provider MD LAB BLOOD ORDERABLES Becky l Result HISTORICAL RESULTS * All Microbiology Report Section (04/24/2014 12:00 AM CDT) 04/24/2014 Narrative HISTORICAL RESULTS - 04/25/2014 1:54 PM CDT ? [facility] ?[address] [facility] [address] ?[place] [address] ? Patient Name: ??JUMANA RIVERS L ? Med Rec Number: [id number] ? Fin Number: ?[id number] ? Date: ?1990 ? Sex/Age: ? Female 24 years ? Admit Date: ?04/24/2014 ? Discharge Date: 04/24/2014 ? Doctor: ?Gynecology, Resident ? Facility: ?[facility] ? Location: ?CLOG ?* Abnormal ??A Alert ??f Footnote ??^ Corrected ??L Low ??H High ?i Interp Data ??@ Ref Lab ? Chart Type:Cumulative ?* * * * MICROBIOLOGY - GENITAL * * * * ?PROCEDURE: N. gonorrhoeae/C. trachomatis Amplification Test ? SOURCE: Urine ? COLLECTED: 04/24/14 ??0846 ?BODY SITE: ? STARTED: 04/24/14 ??1801 ? FREE TEXT SOURCE: ? FINAL REPORT ? REPORTED: 04/25/14 1212 ? Negative for: ??Chlamydia trachomatis rRNA Negative for: ? Neisseria gonorrhoeae rRNA ?* * * ??Interpretive Results ??* * * ? (1)Testing performed by the [employer] APTIMA Combo 2 Assay. ? This nucleic acid amplification test (NAAT) detects ribosomal ? RNA (rRNA) from Chlamydia trachomatis and Neisseria gonorrhoeae ? using target capture, and Health And Physical Education Professor-Mediated Amplification ? (TMA). ??This test is approved by the [place] Food and Drug ? Administration for endocervical, vaginal, and male urethral swab ? specimens, in addition to male and female urine specimens. ??The ? performance characteristics for these specimen types have been ? verified by the [facility]. ? The performance characteristics of this test have not been ? evaluated in women or individuals less than 16 years of ? age.Current interpretive data was last revised on 2013. ? us Historical Provider LAB MICROBIOLOGY - GENERA L ORDERABLES Final Result HISTORICAL RESULTS documented in this encounter Visit Diagnoses Diagnosis Encounter for supervision of normal in multigravida Screening examination for sexually transmitted disease Special screening examination for other specified chlamydial diseases documented in this encounter
--- OUTSIDE RECORDS SUMMARY | 2024-09-25 12:09 | XMS_ITS | Encounter Summary ---
Author Organization [facility] Facility Care Team Providers Care Police Radio Dispatcher Name Role Phone Unavailable Primary Care Provider Unavailabl e Encounter Details Date Type Department Care Team (Late st Contact Info) Description 04/26/2014 - 04/26/2014 11:59 PM CDT Hospital Encounter [facility] Aicha Bucio, DISTRICT PLANT SUPERINTENDENT [address] [place] [address] Encounter for anatomic survey Social History Tobacco Use Types Packs/Day Years Used Date Smoking Tobacco: Never Assessed Comments Unknown Sex and Gender Information Value Date Recorded Sex Assigned at Not on file Legal Sex Female 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 for asthma 04/24/2014 documented as of this encounter Plan of Treatment Not on file documented as of this encounter Visit Diagnoses Diagnosis Encounter for anatomic survey documented in this encounter
--- OUTSIDE RECORDS SUMMARY | 2024-09-25 12:10 | XMS_ITS | Encounter Summary ---
Author Organization [facility] Facility Care Team Providers Care Manager Research Name Role Phone Unavailable Primary Care Provider Unavailabl e Encounter Details Date Type Department Care Team ([facility] st Contact Info) Description 03/13/2014 9:14 AM CDT - 03/13/2014 4:00 PM T Hospital Encounter [facility] Montserrat Woodall MD [address] [place] [address] Social History Tobacco Use Types Packs/Day Years Used Date Smoking Tobacco: Never Assessed Comments Unknown Sex and Gender Information Value Date Recorded Sex Assigned at Not on file 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
--- OUTSIDE RECORDS SUMMARY | 2024-09-25 12:10 | XMS_ITS | Encounter Summary ---
Author Organization [facility] Healthcare Address [address] [place] [address] Care Team Providers Care Soa Integration Developer Name Role Phone Unavailable Primary Care Provider Unavailabl e Encounter Details Date Type Department Care Team (Late st Contact Info) Description 04/19/2014 9:20 AM CDT - 04/19/2014 12:19 PM CDT Hospital Encounter [facility] Ja Mazariegos MD [address] [facility] [address] [place] [address] Dizziness and giddiness; Hypoglycemia; state, incidental Social History Tobacco Use Types Packs/Day Years Used Date Smoking Tobacco: Never Assessed Comments Unknown Sex and Gender Information Value Date Recorded Sex Assigned at Not on file 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 Gender Identity Not on file Sexual Orientation Not on file documented as of this encounter Plan of Treatment Not on file documented as of this encounter Procedures Procedure Name Priority Date/Time Associated Diagnosis Comments BLOOD GLUCOSE Routine 04/19/2014 12:05 PM CDT URINE MICROSCOPY Routine 04/19/2014 10:4 0 AM CDT URINALYSIS Routine 04/19/2014 10:40 AM CDT PLASMA COMPREHENSIVE METABOLIC PANEL Routine 04/19/2014 10:32 AM CDT BLOOD CELL COUNT (CBC), MORPHOLOGIC EXAM Routine 04/19/2014 10:32 AM CDT DISCHARGE LABORATORY CUMULATIVE REPORT 04/19/2014 documented in this encounter Results * Blood glucose (04/19/2014 12:05 PM CDT) Glucose, POC, bld 70 70 - 100 mg/dl HISTORICAL RESULTS Blood specimen (specimen) 04/19/2014 12:05 PM CDT Ja Mazariegos MD LAB BLOOD ORDERABLES Final Result Performing Organization Address [facility] de Phone Number HISTORICAL RESULTS * (ABNORMAL) Urinalysis (04/19/2014 10:40 AM CDT) Color, ur Yellow Yellow,Straw ,Colorless [...] Negative Negative HISTORICAL RESULTS Urobilinogen, quant, ur 0.2 0.2,1.0 mg/dl HISTORICAL RESULTS Nitrites, ur Negative Negative HISTORI SANTHOSH RESULTS Leukocyte esterase, ur Trace(A) Negative HISTORICAL RESULTS Urine 04/19/2014 10:4 0 AM CDT Benny TEJEDA LAB BLOOD ORDERA BLES Final Result Performing Organization Address [facility] de Phone Number HISTORICAL RESULTS * Urine microscopy (04/19/2014 10:40 AM CDT) WBC, ur 0 - 1 Negative,0-1 ,2-5 /hpf HISTORICAL RESULTS RBC, ur Negative Negative,0-1 /hpf HISTORICAL RESULTS Epithelial cells, ur 0 - 1 Negative,0-1 ,2-5,5-10,10 -15,15-25 /hpf HISTORICAL RESULTS Bacteria, ur Negative Negative HISTORI SANTHOSH RESULTS Mucus, ur Negative Negative HISTORICAL RESULTS Amorphous crystals, ur Negative Negative HISTORICAL RESULTS Calcium oxalate crystals, ur Few /lpf HISTORICAL RESULTS Urine 04/19/2014 10:4 0 AM CDT Benny TEJEDA LAB BLOOD ORDERA BLES Final Result HISTORICAL RESULTS * (ABNORMAL) Plasma comprehensive metabolic panel (04/19/2014 10:32 AM CDT) eGFR >60 ml/min/1.7 3 m2 HISTORICAL RESULTS Comment: GFR Reference Range: = > 60 mL/min/1.73 m2 This result has been calculated assuming the patient is Non-. ??If the patient is , please multiply this result by 1.21. Sodium 135(L) 136 - 145 mmol/L HISTORICAL RESULTS K, pl 3.3(L) 3.5 - 5.1 mmol/L HISTORICAL RESULTS Chloride 103 98 - 107 mmol/L HISTORICAL RESULTS CO2 24 22 - 29 mmol/L HISTORICAL RESULTS A. gap 8 5 - 15 mmol/L HISTORICAL RESULTS Glucose 60(VL) 65 - 99 mg/dl HISTORICAL RESULTS Comment: If specimen is from a non-fasting patient, Reference Range is 65-199 mg/dL. Alert value called to and read back by JOHN IN ER @ 1103 BUN 4(L) 7 - 18 mg/dl HISTORICAL RESULTS Creatinine 0.5 0.5 - 0.9 mg/dl HISTORICAL RESULTS Calcium 8.6 8.6 - 10.2 mg/dl HISTORICAL RESULTS Alb 3.4(L) 3.5 - 5.2 g/dl HISTORICAL RESULTS Alk phos 44 40 - 129 Units/L HISTORICAL RESULTS ALT 6 5 - 32 Units/L HISTORICAL RESULTS AST 10 5 - 31 Units/L HISTORICAL RESULTS Bilirubin 0.2 0.1 - 1.0 mg/dl HISTORICAL RESULTS Protein, pl 6.1(L) 6.6 - 8.7 g/dl HISTORICAL RESULTS Plasma 04/19/2014 10:3 2 AM CDT Benny TEJEDA LAB BLOOD ORDERA BLES Final Result HISTORICAL RESULTS * (ABNORMAL) Blood cell count (CBC), morphologic exam (04/19/2014 10:32 AM CDT) WBC 8.7 4.5 - 11.0 K/cumm HISTORICAL RESULTS RBC 3.76(L) 3.80 - 5.40 M/cumm HISTORICAL RESULTS Hgb 10.3(L) 12.0 - 15.0 g/dl HISTORICAL RESULTS Hct 31.7(L) 37.0 - 47.0 % HISTORICAL RESULTS MCV 84.3 82.0 - 96.0 fl HISTORICAL RESULTS MCH 27.4 27.0 - 33.0 pg HISTORICAL RESULTS MCHC 32.5 32.0 - 36.0 g/dl HISTORICAL RESULTS Rdw 16.2(H) 11.5 - 14.5 % HISTORICAL RESULTS Platelets 293 140 - 440 K/cumm HISTORICAL RESULTS MPV 7.7 7.4 - 10.4 fl HISTORICAL RESULTS Neutrophils 71.0 42.0 - 75.0 % HISTORICAL RESULTS Lymphocytes 13.6(L) 20.0 - 50.0 % HISTORICAL RESULTS Monos 12.4(H) 0.0 - 9.0 % HISTORICAL RESULTS Eosinophils 2.6 0.0 - 10.0 % HISTORICAL RESULTS Basophils 0.4 0.0 - 1.0 % HISTORICAL RESULTS Neutrophils, abs 6.1 1.9 - 8.3 K/cumm HISTORICAL RESULTS Lymphocytes, abs 1.2 0.9 - 5.6 K/cumm HISTORICAL RESULTS Monocytes, absolute 1.1(H) 0.1 - 1.0 K/cumm HISTORICAL RESULTS Eosinophils, abs 0.2 0.0 - 1.1 K/cumm HISTORICAL RESULTS Basophils, abs 0.0 0.0 - 0.1 K/cumm HISTORICAL RESULTS Blood specimen (specimen) 04/19/2014 10:32 AM CDT Benny TEJEDA LAB BLOOD ORDERA BLES Final Result HISTORICAL RESULTS * DISCHARGE LABORATORY CUMULATIVE REPORT (04/19/2014) Narrative 04/19/2014 Ordered by an unspecified provider. Historical Provider LAB BLOOD ORDERABLES Becky l Result documented in this encounter Visit Diagnoses Diagnosis Dizziness and giddiness Hypoglycemia Hypoglycemia, unspecified state, incidental documented in this encounter
--- OUTSIDE RECORDS SUMMARY | 2024-09-25 12:10 | XMS_ITS | Encounter Summary ---
Author Organization [facility] Facility Care Team Providers Care Hairspring Vibrator Name Role Phone Unavailable Primary Care Provider Unavailabl e Encounter Details Date Type Department Care Team (Late st Contact Info) Description 03/27/2014 8:29 AM CDT - 03/27/2014 4:00 PM T Hospital Encounter [facility] Isaiah Hull MD [address] [facility] [phone] [place] [address] Gynecology Encounter for supervision of normal in multigravida Social History Tobacco Use Types Packs/Day Years Used Date Smoking Tobacco: Never Assessed Comments Unknown Sex and Gender Information Value Date Recorded Sex Assigned at Not on file 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
--- OUTSIDE RECORDS SUMMARY | 2024-09-25 12:10 | XMS_ITS | Encounter Summary ---
Author Organization [facility] Facility Care Team Providers Care Restaurant Lead Name Role Phone Unavailable Primary Care Provider Unavailabl e Encounter Details Date Type Department Care Team (Late st Contact Info) Description 02/27/2014 8:42 AM CDT - 02/27/2014 4:00 PM CDT Hospital Encounter [facility] Isaiah Hull MD [address] [phone] [place], [place] [id number] Gynecology Encounter for supervision of normal in multigravida; Other specified screening Social History Tobacco Use Types Packs/Day Years Used Date Smoking Tobacco: Never Assessed Comments Unknown Sex and Gender Information Value Date Recorded Sex Assigned at Not on file 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 GONORRHOEAE, CHLAMYDIA TRACHOMATIS AMPLIFICATION TEST, CDR Routine 02/27/2014 9:56 AM CDT ALL MICROBIOLOGY REPORT SECTION Routine 02/27/2014 12:00 AM CDT DISCHARGE LABORATORY CUMULATIVE REPORT Routine 02/27/2014 12:00 AM CDT documented in this encounter Results * Neisseria gonorrhoeae, Chlamydia trachomatis amplification test (02/27/2014 9:56 AM CDT) Urine (Unknown) 02/27/2014 9 :56 AM CDT 02/27/2014 4:45 PM CDT Impressions HISTORICAL RESULTS - 02/28/2014 11:44 AM CDT Testing performed by the Gen-[employer] APTIMA Combo 2 Assay. ??This nucleic acid amplification test (NAAT) detects ribosomal RNA (rRNA) from Chlamydia trachomatis and Neisseria gonorrhoeae using target capture, and Senior Solutions Architect-Mediated Amplification (TMA). ??This test is approved by the [place] Food and Drug Administration for endocervical, vaginal, and male urethral swab specimens, in addition to male and female urine specimens. ??The performance characteristics for these specimen types have been verified by the [facility]. ??The performance characteristics of this test have not been evaluated in women or individuals less than 16 years of age. Current interpretive data was last revised on 2013. Narrative HISTORICAL RESULTS - 02/28/2014 11:44 AM CDT Positive for: ??Chlamydia trachomatis rRNA Negative for: ??Neisseria gonorrhoeae rRNA Historical Provider MD LAB MICROBIOLOGY - GENERA L ORDERABLES Final Result HISTORICAL RESULTS * Discharge Laboratory Cumulative Report (02/27/2014 12:00 AM CDT) 02/27/2014 Narrative HISTORICAL RESULTS - 02/28/2014 3:24 PM CDT ?[facility] ?Department of Laboratories ? [address] [facility] [address] ? [place] [address] Patient Name: ??ALYSHA JOLLEY [facility] Rec Number: [id number] Fin Number: ?[id number] Date: ?1990 Sex/Age: ? Female 24 years Admit Date: ?02/27/2014 Discharge Date: 02/27/2014 Doctor: ?Gynecology, Resident Facility: ?[facility] Location: ?CLOG Chart Printed: 02/28/2014 15:24 ?? * Abnormal ?? C Critical ?? f Footnote ?? ^ Corrected ?? L Low ?? H High ? i Interp Data ?? @ Reference Lab ? Chart Type:Periodic ? MICROBIOLOGY - ALL TESTS ? PROCEDURE: N. gonorrhoeae/C. trachomatis Amplification Test ?SOURCE: Urine COLLECTED: 02/27/14 ??0956 ? BODY SITE: STARTED: 02/27/14 ??1645 FREE TEXT SOURCE: FINAL REPORT REPORTED: 02/28/14 1143 Positive for: ??Chlamydia trachomatis rRNA Negative for: Neisseria gonorrhoeae rRNA * * * ??Interpretive Results ??* * * (1)Testing performed by the Gen-Probe [employer] APTIMA Combo 2 Assay. This nucleic acid amplification test (NAAT) detects ribosomal RNA (rRNA) from Chlamydia trachomatis and Neisseria gonorrhoeae using target capture, and Senior Solutions Architect-Mediated Amplification (TMA). ??This test is approved by the [place] Food and Drug Administration for endocervical, vaginal, and male urethral swab specimens, in addition to male and female urine specimens. ??The performance characteristics for these specimen types have been verified by the [facility]. The performance characteristics of this test have not been evaluated in women or individuals less than 16 years of age.Current interpretive data was last revised on 2013. ? MICROBIOLOGY - GENITAL ? PROCEDURE: N. gonorrhoeae/C. trachomatis Amplification Test ?SOURCE: Urine COLLECTED: 02/27/14 ??0956 ? BODY SITE: STARTED: 02/27/14 ??1645 FREE TEXT SOURCE: FINAL REPORT REPORTED: 02/28/14 1143 Positive for: ??Chlamydia trachomatis rRNA Negative for: Neisseria gonorrhoeae rRNA * * * ??Interpretive Results ??* * * (1)Testing performed by the [facility] [facility] [place] APTIMA Combo 2 Assay. This nucleic acid amplification test (NAAT) detects ribosomal RNA (rRNA) from Chlamydia trachomatis and Neisseria gonorrhoeae using target capture, and Senior Solutions Architect-Mediated Amplification (TMA). ??This test is approved by the [place] Food and Drug Administration for endocervical, vaginal, and male urethral swab specimens, in addition to male and female urine specimens. ??The performance characteristics for these specimen types have been verified by the [facility]. The performance characteristics of this test have not been evaluated in women or individuals less than 16 years of age.Current interpretive data was last revised on 2013. us Historical Provider LAB BLOOD ORDERABLES Becky apula Result HISTORICAL RESULTS * All Microbiology Report Section (02/27/2014 12:00 AM CDT) 02/27/2014 Narrative HISTORICAL RESULTS - 02/28/2014 1:52 PM CDT ? [facility] ?[address] [facility] [address] ?[place], [place] [address] ? Patient Name: ??ALYSHA JOLLEY L ? Med Rec Number: [id number] ? Fin Number: ?[id number] ? Date: ?1990 ? Sex/Age: ? Female 24 years ? Admit Date: ?02/27/2014 ? Discharge Date: 02/27/2014 ? Doctor: ?Gynecology, Resident ? Facility: ?[facility] ? Location: ?CLOG ?* Abnormal ??A Alert ??f Footnote ??^ Corrected ??L Low ??H High ?i Interp Data ??@ Ref Lab ? Chart Type:Cumulative ?* * * * MICROBIOLOGY - GENITAL * * * * ?PROCEDURE: N. gonorrhoeae/C. trachomatis Amplification Test ? SOURCE: Urine ? COLLECTED: 02/27/14 ??0956 ?BODY SITE: ? STARTED: 02/27/14 ??1645 ? FREE TEXT SOURCE: ? FINAL REPORT ? REPORTED: 02/28/14 1143 ? Positive for: ??Chlamydia trachomatis rRNA Negative for: ? Neisseria gonorrhoeae rRNA ?* * * ??Interpretive Results ??* * * ? (1)Testing performed by the [employer] APTIMA Combo 2 Assay. ? This nucleic acid amplification test (NAAT) detects ribosomal ? RNA (rRNA) from Chlamydia trachomatis and Neisseria gonorrhoeae ? using target capture, and Senior Solutions Architect-Mediated Amplification ? (TMA). ??This test is approved by the [place] Food and Drug ? Administration for endocervical, vaginal, and male urethral swab ? specimens, in addition to male and female urine specimens. ??The ? performance characteristics for these specimen types have been ? verified by the [facility]. ? The performance characteristics of this test have not been ? evaluated in women or individuals less than 16 years of ? age.Current interpretive data was last revised on 2013. ? us Historical Provider LAB MICROBIOLOGY - GENERA L ORDERABLES Final Result HISTORICAL RESULTS documented in this encounter Visit Diagnoses Diagnosis Encounter for supervision of normal in multigravida Other specified screening documented in this encounter
--- OUTSIDE RECORDS SUMMARY | 2024-09-25 12:11 | XMS_ITS | Encounter Summary ---
Author Organization [facility] Facility Care Team Providers Care Clinical Educator Name Role Phone Unavailable Primary Care Provider Unavailabl e Encounter Details Date Type Department Care Team (Latest Contact Info) Description 07/12/2013 1:40 PM BUSINESS DEVELOPMENT RECRUITER - 07/12/2013 4:00 PM BUSINESS DEVELOPMENT RECRUITER Hospital Encounter [facility] Gabriela Fairbanks MD [address] [facility] [address] [place] [address] Gynecology Encounter for routine gynecological examination Social History Tobacco Use Types Packs/Day Years Used Date Smoking Tobacco: Never Assessed Comments Unknown Sex and Gender Information Value Date Recorded Sex Assigned at Not on file 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 GONORRHOEAE, CHLAMYDIA TRACHOMATIS AMPLIFICATION TEST, CDR Routine 07/12/2013 2:34 PM BUSINESS DEVELOPMENT RECRUITER ALL MICROBIOLOGY REPORT SECTION Routine 07/12/2013 12:00 AM BUSINESS DEVELOPMENT RECRUITER DISCHARGE LABORATORY CUMULATIVE REPORT Routine 07/12/2013 12:00 AM BUSINESS DEVELOPMENT RECRUITER CYTOLOGY 07/12/2013 documented in this encounter Results * Neisseria gonorrhoeae, Chlamydia trachomatis amplification test (07/12/2013 2:34 PM BUSINESS DEVELOPMENT RECRUITER) Endocervical (Unknown) 07/12/2013 2:34 PM BUSINESS DEVELOPMENT RECRUITER 07/12/2013 5:40 PM BUSINESS DEVELOPMENT RECRUITER Impressions HISTORICAL RESULTS - 07/13/2013 2:21 PM BUSINESS DEVELOPMENT RECRUITER Testing performed by the Gen-Probe [employer] APTIMA Combo 2 Assay. ??This nucleic acid amplification test (NAAT) detects ribosomal RNA (rRNA) from Chlamydia trachomatis and Neisseria gonorrhoeae using target capture, and Stock Car Driver-Mediated Amplification (TMA). ??This test is approved by the [place] Food and Drug Administration for endocervical, vaginal, and male urethral swab specimens, in addition to male and female urine specimens. ??The performance characteristics for these specimen types have been verified by the [facility]. ??The performance characteristics of this test have not been evaluated in women or individuals less than 16 years of age. Current interpretive data was last revised on 2013. Narrative HISTORICAL RESULTS - 07/13/2013 2:21 PM BUSINESS DEVELOPMENT RECRUITER Negative for: ??Chlamydia trachomatis rRNA Negative for: ??Neisseria gonorrhoeae rRNA Historical Provider LAB MICROBIOLOGY - GENERA L ORDERABLES Final Result HISTORICAL RESULTS * Cytology (07/12/2013) Narrative 07/12/2013 Ordered by an unspecified provider. Historical Provider LAB CYTOLOGY ORDERABLES F inal Result * All Microbiology Report Section (07/12/2013 12:00 AM BUSINESS DEVELOPMENT RECRUITER) 07/12/2013 Narrative HISTORICAL RESULTS - 07/13/2013 5:01 PM BUSINESS DEVELOPMENT RECRUITER ? [facility] ?[address] [facility] [address] ?[place], [place] [address] ? Patient Name: ??JUMANA JOLLEY ? Med Rec Number: [id number] ? Fin Number: ?[id number] ? Date: ?1990 ? Sex/Age: ? Female 23 years ? Admit Date: ?07/12/2013 ? Discharge Date: 07/12/2013 ? Doctor: ?Gynecology, Resident ? Facility: ?[facility] ? Location: ?CLOG ?* Abnormal ??A Alert ??f Footnote ??^ Corrected ??L Low ??H High ?i Interp Data ??@ Ref Lab ? Chart Type:Cumulative ?* * * * MICROBIOLOGY - GENITAL * * * * ?PROCEDURE: N. gonorrhoeae/C. trachomatis Amplification Test ? SOURCE: Endocervical ? COLLECTED: 07/12/ ??1434 ?BODY SITE: ? STARTED: //13 ??1740 ? FREE TEXT SOURCE: ? FINAL REPORT ? REPORTED: 07/13/13 1421 ? Negative for: ??Chlamydia trachomatis rRNA Negative for: ? Neisseria gonorrhoeae rRNA ?* * * ??Interpretive Results ??* * * ? (1)Testing performed by the [employer] APTIMA Combo 2 Assay. ? This nucleic acid amplification test (NAAT) detects ribosomal ? RNA (rRNA) from Chlamydia trachomatis and Neisseria gonorrhoeae ? using target capture, and Stock Car Driver-Mediated Amplification ? (TMA). ??This test is approved by the [place] Food and Drug ? Administration for endocervical, vaginal, and male urethral swab ? specimens, in addition to male and female urine specimens. ??The ? performance characteristics for these specimen types have been ? verified by the [facility]. ? The performance characteristics of this test have not been ? evaluated in women or individuals less than 16 years of ? age.Current interpretive data was last revised on 2013. ? us Historical Provider MD LAB MICROBIOLOGY - GENERA L ORDERABLES Final Result HISTORICAL RESULTS * Discharge Laboratory Cumulative Report (07/12/2013 12:00 AM BUSINESS DEVELOPMENT RECRUITER) 07/12/2013 Narrative HISTORICAL RESULTS - 07/13/2013 3:33 PM BUSINESS DEVELOPMENT RECRUITER ?[facility] ?Department of Laboratories ? [address] [facility] ? [place] [address] Patient Name: ??JOLLEYJUMANA [facility] Rec Number: [id number] Fin Number: ?[id number] Date: ?1990 Sex/Age: ? Female 23 years Admit Date: ?07/12/2013 Discharge Date: 07/12/2013 Doctor: ?Gynecology, Resident Facility: ?[facility] Location: ?CLOG Chart Printed: 07/13/2013 15:33 ?? * Abnormal ?? C Critical ?? f Footnote ?? ^ Corrected ?? L Low ?? H High ? i Interp Data ?? @ Reference Lab ? Chart Type:Periodic ? MICROBIOLOGY - ALL TESTS ? PROCEDURE: N. gonorrhoeae/C. trachomatis Amplification Test ?SOURCE: Endocervical COLLECTED: 07/12/13 ??1434 ? BODY SITE: STARTED: 07/12/13 ??1740 FREE TEXT SOURCE: FINAL REPORT REPORTED: 07/13/13 1421 Negative for: ??Chlamydia trachomatis rRNA Negative for: Neisseria gonorrhoeae rRNA * * * ??Interpretive Results ??* * * (1)Testing performed by the [employer] APTIMA Combo 2 Assay. This nucleic acid amplification test (NAAT) detects ribosomal RNA (rRNA) from Chlamydia trachomatis and Neisseria gonorrhoeae using target capture, and Stock Car Driver-Mediated Amplification (TMA). ??This test is approved by the [facility] Food and Drug Administration for endocervical, vaginal, and male urethral swab specimens, in addition to male and female urine specimens. ??The performance characteristics for these specimen types have been verified by the [facility]. The performance characteristics of this test have not been evaluated in women or individuals less than 16 years of age.Current interpretive data was last revised on 2013. ? MICROBIOLOGY - GENITAL ? PROCEDURE: N. gonorrhoeae/C. trachomatis Amplification Test ?SOURCE: Endocervical COLLECTED: 07/12/13 ??1434 ? BODY SITE: STARTED: 07/12/13 ??1740 FREE TEXT SOURCE: FINAL REPORT REPORTED: 07/13/13 1421 Negative for: ??Chlamydia trachomatis rRNA Negative for: Neisseria gonorrhoeae rRNA * * * ??Interpretive Results ??* * * (1)Testing performed by the Gen-Probe [employer] APTIMA Combo 2 Assay. This nucleic acid amplification test (NAAT) detects ribosomal RNA (rRNA) from Chlamydia trachomatis and Neisseria gonorrhoeae using target capture, and Stock Car Driver-Mediated Amplification (TMA). ??This test is approved by the [facility] Food and Drug Administration for endocervical, vaginal, and male urethral swab specimens, in addition to male and female urine specimens. ??The performance characteristics for these specimen types have been verified by the [facility]. The performance characteristics of this test have not been evaluated in women or individuals less than 16 years of age.Current interpretive data was last revised on 2013. us Historical Provider LAB BLOOD ORDERABLES Becky paula Result HISTORICAL RESULTS documented in this encounter Visit Diagnoses Diagnosis Encounter for routine gynecological examination documented in this encounter
--- OUTSIDE RECORDS SUMMARY | 2024-09-25 12:11 | XMS_ITS | Encounter Summary ---
Author Organization [facility] Facility Care Team Providers Care Stucco Laborer Name Role Phone Unavailable Primary Care Provider Unavailabl e Encounter Details Date Type Department Care Team (Late st Contact Info) Description 09/03/2013 11:58 PM SHEET MILL SUPERVISOR - 09/04/2013 5:07 AM [facility] Hospital Encounter [facility] CLINCON[facility] Social History Tobacco Use Types Packs/Day Years Used Date Smoking Tobacco: Never Assessed Comments Unknown Sex and Gender Information Value Date Recorded Sex Assigned at Not on file 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
--- OUTSIDE RECORDS SUMMARY | 2024-09-25 12:11 | XMS_ITS | Encounter Summary ---
Author Organization [facility] Healthcare Address [address] [place] [address] Care Team Providers Care Associate Financial Representative Name Role Phone Unavailable Primary Care Provider Unavailabl e Encounter Details Date Type Department Care Team (Late st Contact Info) Description 08/14/2013 8:31 PM FORMULATION SCIENTIST - 08/14/2013 10:00 PM FORMULATION SCIENTIST Hospital Encounter [facility] CLINCONV Sonja Santamaria MD [address] [place] [address] [place] [address] Pain in joint, forearm Social History Tobacco Use Types Packs/Day Years Used Date Smoking Tobacco: Never Assessed Comments Unknown Sex and Gender Information Value Date Recorded Sex Assigned at Not on file Legal Sex Female 1:00 AM FORMULATION SCIENTIST Gender Identity Not on file Sexual Orientation Not on file documented as of this encounter Plan of Treatment Not on file documented as of this encounter Procedures Procedure Name Priority Date/Time Associated Diagnosis Comments XR WRIST 3+ VW Routine 08/14/2013 9:18 PM FORMULATION SCIENTIST documented in this encounter Results * XR Wrist 3+ VW (08/14/2013 9:18 PM FORMULATION SCIENTIST) Anatomical Region Laterality Modality N/A Radiographic Christin ging 08/14/2013 9:18 PM FORMULATION SCIENTIST Narrative 08/15/2013 8:07 AM FORMULATION SCIENTIST EXAMINATION: Left wrist, 3 views. DATE: 08/14/2013. ?? HISTORY: Fall. ??Left wrist pain. FINDINGS: 4 images of the left wrist are reviewed without comparison. ?? Alignment is normal. ??No fracture is identified. ??The joint spaces and soft tissues are normal. ?? IMPRESSION: Normal left wrist radiographs. Radiologist: AZALEA COLEMAN MD ?? Attending: ??SONJA SANTAMARIA ??Deshawn Requesting: JOAQUIN MARX ?? Requesting Fax: ?? Completed Time: ?? 08/14/2013 9:18 PM Dictated Time: ?N/A Transcribed Time: 08/15/2013 08:07 AM Signed by: ?AZALEA COLEMAN ?? on 08/15/2013 08:07 AM Procedure Note Provider, MD Jermaine - 12/29/2016 EXAMINATION: Left wrist, 3 views. DATE: 08/14/2013. HISTORY: Fall. Left wrist pain. FINDINGS: 4 images of the left wrist are reviewed without comparison. Alignment is normal. No fracture is identified. The joint spaces and soft tissues are normal. IMPRESSION: Normal left wrist radiographs. Radiologist: AZALEA COLEMAN MD Attending: SONJA SANTAMARIA M.D. Requesting: JOAQUIN MARX MD Requesting Completed Time: 08/14/2013 9:18 PM Dictated Time: N/A Transcribed Time: 08/15/2013 08:07 AM Signed by: AZALEA COLEMAN MD on 08/15/2013 08:07 AM Historical Provider IMMack XR PROCEDURES Final R esult documented in this encounter Visit Diagnoses Diagnosis Pain in joint, forearm documented in this encounter
--- OUTSIDE RECORDS SUMMARY | 2024-09-25 12:11 | XMS_ITS | Encounter Summary ---
Author Organization [facility] [place] Facility Care Team Providers Care Wax Cutter Name Role Phone Unavailable Primary Care Provider Unavailabl e Encounter Details Date Type Department Care Team (Latest Contact Info) Description 01/13/2014 8:56 PM CDT - 01/13/2014 10:50 PM CDT Hospital Encounter [facility] CLINCONV Other current maternal conditions classifiable elsewhere, antepartum; Abdominal pain; Dizziness and giddiness Social History Tobacco Use Types Packs/Day Years Used Date Smoking Tobacco: Never Assessed Comments Unknown Sex and Gender Information Value Date Recorded Sex Assigned at Not on file 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 Gender Identity Not on file Sexual Orientation Not on file documented as of this encounter Plan of Treatment Not on file documented as of this encounter Procedures Procedure Name Priority Date/Time Associated Diagnosis Comments URINE CHORIONIC GONADOTROPIN (HCG) Routine 01/13/2014 11:17 PM CDT URINE MICROSCOPY Routine 01/13/2014 9:17 PM CDT URINALYSIS Routine 01/13/2014 9:17 PM CDT DISCHARGE LABORATORY CUMULATIVE REPORT Routine 01/13/2014 12:00 AM CDT documented in this encounter Results * (ABNORMAL) Urine chorionic gonadotropin (HCG) (01/13/2014 11:17 PM CDT) HCG, ur Positive(A ) HISTORICAL RESULTS Urine 01/13/2014 11:1 7 PM CDT us Sam E. Ruoff MD LAB BLOOD ORDERABLES Final Res ult Performing Organization Address [facility]/State/ZIP Co de Phone Number HISTORICAL RESULTS * (ABNORMAL) Urinalysis (01/13/2014 9:17 PM CDT) Color, ur Yellow Yellow HISTORICAL RESULTS Clarity, ur Cloudy(A) Clear HISTORIC AL RESULTS Specific gravity, ur 1.029 1.003 - 1.030 HISTORICAL RESULTS pH, ur 6.5 5.0 - 8.0 HISTORICAL RESULTS Protein, ur Trace Trace HISTORIC AL RESULTS Glucose, ur Trace(A) Negative HISTORIC AL RESULTS Ketones, ur 1+(A) Negative HISTORIC AL RESULTS Bilirubin, ur Negative Negative HISTOR ICAL RESULTS U Blood Negative Negative HISTORICAL RESULTS Urobilinogen, quant, ur 2.0 0.0 - 2.0 mg/dl HISTORICAL RESULTS Nitrites, ur Negative Negative HISTORI SANTHOSH RESULTS Leukocyte esterase, ur 2+(A) Negative HISTORICAL RESULTS Urine 01/13/2014 9:17 PM CDT Sam Tarango MD LAB BLOOD ORDERABLES Final Res ult Performing Organization Address [facility]/ZIP Co de Phone Number HISTORICAL RESULTS * (ABNORMAL) Urine microscopy (01/13/2014 9:17 PM CDT) RBC, ur 2 0 - 3 /hpf HISTORICA L RESULTS WBC, ur 3 0 - 5 /hpf HISTORICA L RESULTS Bacteria, ur 1+ Trace HISTORI SANTHOSH RESULTS Epithelial cells, renal, ur 0 0 - 0 /hpf HISTORICAL RESULTS Epithelial cells, squamous, ur >20 /lpf HISTORICAL RESULTS Mucus, ur Small /hpf HISTORICAL RESULTS Calcium oxalate crystals, ur >30(H) 0 - 0 /hpf HISTORICAL RESULTS Urine 01/13/2014 9:17 PM CDT Sam Tarango MD LAB BLOOD ORDERABLES Final Res ult Performing Organization Address [facility]/ZIP Co de Phone Number HISTORICAL RESULTS * Discharge Laboratory Cumulative Report (01/13/2014 12:00 AM CDT) 01/13/2014 Narrative HISTORICAL RESULTS - 01/14/2014 3:16 PM CDT ?[facility] ?Department of Laboratories ? [address] [facility] [place] ? [place] [address] Patient Name: ??ALYSHA RIVERS Deven Med Rec Number: [id number] Fin Number: ?[id number] Date: ?1990 Sex/Age: ? Female 23 years Admit Date: ?01/13/2014 Discharge Date: 01/13/2014 Doctor: ?Unknown , HMED Doctor Facility: ?[facility] Location: ?[id number] Chart Printed: 01/14/2014 15:16 ?? * Abnormal ?? C Critical ?? f Footnote ?? ^ Corrected ?? L Low ?? H High ? i Interp Data ?? @ Reference Lab ?Chart Type:Cumulative ?URINE HORMONES ?Test: hCG Ur Qual ? Reference: ? Units: 01/13/2014 ?? 23:17:00 ?? Positive ??* ?URINALYSIS ?Macroscopic ?Test: Color ? Clarity ?Specific [place] ? Reference: [Yellow] ??[Clear] ?[1.003-1.030] ? Units: 01/13/2014 ?? 21:17:11 ?? Yellow ?Cloudy ??* ??1.029 ?Test: pH ? Albumin ??Glucose ? Ketones ? Reference: [5.0-8.0] ??[Trace] ??[Negative] ??[Negative] ? Units: 01/13/2014 ?? 21:17:11 ?? 6.5 ?Trace ?Trace ??* ?1+ ??* ?Test: Bilirubin ?? Blood ? Urobilinogen ? Reference: [Negative] ??[Negative] ??[0.0-2.0] ? Units: ? mg/dL 01/13/2014 ?? 21:17:11 ?? Negative ?Negative ?2.0 ?Test: Nitrite ? Leuk Esterase ? Reference: [Negative] ??[Negative] ? Units: 01/13/2014 ?? 21:17:11 ?? Negative ?2+ ??* ?URINALYSIS ?Microscopic ?Test: Epithl Squam ??Mucus Thrds ??RBC Ur ??WBC Ur ? Reference: ?[0-3] ?? [0-5] ? Units: /LPF ?/HPF ? /HPF ?/HPF 01/13/2014 ?? 21:17:11 ?? >20 ? Small ?2 ? 3 ?Test: Bacteria Ur ??Epithl Renl Ur ??Ca Oxalate [facility] ? Reference: [Trace] ?[0-0] ? [0-0] ? Units: ?/HPF ?/HPF 01/13/2014 ?? 21:17:11 ?? 1+ ? 0 ? >30 ??H ? CANCELLED TESTS Date ?Time ?Test ?Cancel Reason 01/13/2014 ??21:19:00 ??RapHIV ED BJHPOC ??NCHG No POCT Result us Historical Provider LAB BLOOD ORDERABLES Becky paula Result HISTORICAL RESULTS documented in this encounter Visit Diagnoses Diagnosis Other current maternal conditions classifiable elsewhere, antepartum Abdominal pain Abdominal pain, unspecified site Dizziness and giddiness documented in this encounter
--- OUTSIDE RECORDS SUMMARY | 2024-09-25 12:11 | XMS_ITS | Encounter Summary ---
Author Organization [facility] Facility Care Team Providers Care Electrical Lineworker Name Role Phone Unavailable Primary Care Provider Unavailabl e Encounter Details Date Type Department Care Team (Late st Contact Info) Description 01/16/2014 8:56 AM CDT - 01/16/2014 4:00 PM CDT Hospital Encounter [facility] Isaiah Hull MD [address] [facility] [phone] [place] [address] Gynecology Other specified screening; Screening for malignant neoplasm of cervix; Special screening examination for other specified viral diseases; Screening examination for rubella; Screening examination for sexually transmitted disease; Special screening examination for other specified chlamydial diseases Social History Tobacco Use Types Packs/Day Years Used Date Smoking Tobacco: Never Assessed Comments Unknown Sex and Gender Information Value Date Recorded Sex Assigned at Not on file Legal Sex Female 1:00 AM ASSESSMENT RN Gender Identity Not on file Sexual Orientation Not on file documented as of this encounter Plan of Treatment Not on file documented as of this encounter Procedures Procedure Name Priority Date/Time Associated Diagnosis Comments SERUM RUBELLA AB, IGG Routine 01/16/2014 10:14 AM CDT SERUM RAPID PLASMA REAGIN (RPR) Routine 01/16/2014 10:14 AM CDT SERUM HUMAN IMMUNODEFICIENCY VIRUS (HIV) 1, 2 AB Routine 01/16/2014 10:14 AM CDT SERUM HEPATITIS B SURFACE AG Routine 01/16/2014 10:14 AM CDT BLOOD CELL COUNT (CBC) Routine 4 10:14 AM CDT BLOOD ABO, RH, INDIRECT AB SCREEN Routine 01/16/2014 10:11 AM CDT URINE (AEROBIC) CULTURE, CDR Routine 01/16/2014 9:42 AM CDT N. GONORRHOEAE, CHLAMYDIA TRACHOMATIS AMPLIFICATION TEST, CDR Routine 01/16/2014 9:42 AM CDT SERUM VARICELLA ZOSTER VIRUS (VZV) AB Routine 01/16/2014 5:14 AM CDT SERUM HEPATITIS C AB Routine 01/16/2014 5:14 AM CDT ALL MICROBIOLOGY REPORT SECTION Routine 01/16/2014 12:00 AM CDT ALL MICROBIOLOGY REPORT SECTION Routine 01/16/2014 12:00 AM CDT DISCHARGE LABORATORY CUMULATIVE REPORT Routine 01/16/2014 12:00 AM CDT CYTOLOGY 01/16/2014 documented in this encounter Results * Serum Rubella ab, IgG (01/16/2014 10:14 AM CDT) Rubella ab, IgG Positive HISTORICAL RESULTS Serum 01/16/2014 10:1 4 AM CDT us Aicha Bucio SWATCH PASTER LAB BLOOD ORDERABLES Final Result HISTORICAL RESULTS * Serum rapid plasma reagin (RPR) (01/16/2014 10:14 AM CDT) RPR Nonreactive Nonreactive HISTOR ICAL RESULTS Serum 01/16/2014 10:1 4 AM CDT us Aicha Bucio SWATCH PASTER LAB BLOOD ORDERABLES Final Result Performing Organization Address [facility] de Phone Number HISTORICAL RESULTS * Serum Hepatitis B surface ag (01/16/2014 10:14 AM CDT) HBV surface ag Negative NEG HISTO RICAL RESULTS Serum 01/16/2014 10:1 4 AM CDT Aicha Bucio SWATCH PASTER LAB BLOOD ORDERABLES Final Result Performing Organization Address [facility] de Phone Number HISTORICAL RESULTS * Serum Human Immunodeficiency virus (HIV) 1, 2 ab (01/16/2014 10:14 AM CDT) HIV ab Negative NEG HISTORICAL RESULTS Serum 01/16/2014 10:1 4 AM CDT Aicha Bucio SWATCH PASTER LAB BLOOD ORDERABLES Final Result Performing Organization Address [facility] de Phone Number HISTORICAL RESULTS * (ABNORMAL) Blood cell count (CBC) (01/16/2014 10:14 AM CDT) WBC 8.3 3.8 - 9.8 K/cumm HISTORICAL RESULTS RBC 4.60 3.90 - 5.00 M/cumm HISTORICAL RESULTS Hgb 11.5(L) 12.1 - 15.1 g/dl HISTORICAL RESULTS Hct 36.9 36.1 - 44.3 % HISTORICAL RESULTS MCV 80.3 80.0 - 97.6 fl HISTORICAL RESULTS MCH 25.1(L) 26.7 - 33.7 pg HISTORICAL RESULTS MCHC 31.2(L) 32.7 - 35.5 g/dl HISTORICAL RESULTS Rdw 20.5(H) 11.8 - 14.6 % HISTORICAL RESULTS Platelets 347 140 - 440 K/cumm HISTORICAL RESULTS MPV 8.3 6.8 - 10.4 fl HISTORICAL RESULTS Neutrophils 60.8 38.7 - 74.5 % HISTORICAL RESULTS Lymphocytes 19.8(L) 20.0 - 54.3 % HISTORICAL RESULTS Monos 11.9 4.3 - 13.5 % HISTORICAL RESULTS Eosinophils 6.4(H) 0.0 - 6.0 % HISTORICAL RESULTS Basophils 1.1 0.0 - 3.0 % HISTORICAL RESULTS Neutrophils, abs 5.0 1.8 - 6.6 K/cumm HISTORICAL RESULTS Lymphocytes, abs 1.6 1.2 - 3.3 K/cumm HISTORICAL RESULTS Monocytes, absolute 1.0 0.2 - 1.2 K/cumm HISTORICAL RESULTS Eosinophils, abs 0.5 0.0 - 0.5 K/cumm HISTORICAL RESULTS Basophils, abs 0.1 0.0 - 0.2 K/cumm HISTORICAL RESULTS Blood specimen (specimen) 01/16/2014 10:14 AM CDT us Aicha Bucio SWATCH PASTER LAB BLOOD ORDERABLES Final Result HISTORICAL RESULTS * Blood ABO, Rh, indirect ab screen (01/16/2014 10:11 AM CDT) ABO, Rho(D) O Positive HISTORI SANTHOSH RESULTS Gabby, indirect Negative HISTORICAL RESULTS Blood specimen (specimen) 01/16/2014 10:11 AM CDT us Aicha Bucio SWATCH PASTER LAB BLOOD ORDERABLES Final Result HISTORICAL RESULTS * Neisseria gonorrhoeae, Chlamydia trachomatis amplification test (01/16/2014 9:42 AM CDT) Endocervical (Unknown) 01/16/2014 9:42 AM CDT 01/16/2014 6:42 PM CDT Impressions HISTORICAL RESULTS - 01/17/2014 12:06 PM CDT Testing performed by the Gen-[employer]be [employer] APTIMA Combo 2 Assay. ??This nucleic acid amplification test (NAAT) detects ribosomal RNA (rRNA) from Chlamydia trachomatis and Neisseria gonorrhoeae using target capture, and Sales Development Coordinator-Mediated Amplification (TMA). ??This test is approved by the [place] Food and Drug Administration for endocervical, vaginal, and male urethral swab specimens, in addition to male and female urine specimens. ??The performance characteristics for these specimen types have been verified by the [facility]. ??The performance characteristics of this test have not been evaluated in women or individuals less than 16 years of age. Current interpretive data was last revised on 2013. Narrative HISTORICAL RESULTS - 01/17/2014 12:06 PM CDT Positive for: ??Chlamydia trachomatis rRNA Negative for: ??Neisseria gonorrhoeae rRNA Historical Provider MD LAB MICROBIOLOGY - GENERA L ORDERABLES Final Result Performing Organization Address City/[facility] de Phone Number HISTORICAL RESULTS * Urine (aerobic) culture (01/16/2014 9:42 AM CDT) Urine, clean voided (Unknown) 01/16/2014 9:42 AM CDT 01/16/2014 5:39 PM CDT Narrative HISTORICAL RESULTS - 01/18/2014 2:52 PM CDT Growth indicative of contamination with periurethral marco. Please submit a new specimen with special attention given to the collection process and to prompt transport to the laboratory. [facility] Provider MD LAB MICROBIOLOGY - GENERA L ORDERABLES Final Result Performing Organization Address [facility] de Phone Number HISTORICAL RESULTS * Serum Hepatitis C ab (01/16/2014 5:14 AM CDT) HCV ab Negative NEG HISTORICAL RESULTS Serum 01/16/2014 5:14 AM CDT Narrative HISTORICAL RESULTS - 01/16/2014 8:51 AM CDT Interpretive Data If confirmation is required, call Laboratory Customer Service to request sample to be sent to [facility] for Hepatitis C Virus (HCV) RNA Detection and Quantitation by Real-Time Reverse Sales Development Coordinator-PCR (RT-PCR). Current interpretive data was last revised on 2011 Aicha Bucio NP LAB BLOOD ORDERABLES Final Result Performing Organization Address City/[facility] Co de Phone Number HISTORICAL RESULTS * (ABNORMAL) Serum Varicella zoster virus (VZV) ab (01/16/2014 5:14 AM CDT) VZV ab Positive(A ) HISTORICAL RESULTS Serum 01/16/2014 5:14 AM CDT Narrative HISTORICAL RESULTS - 01/18/2014 10:40 AM CDT Interpretive Data Negative: ??No detectable antibody to Varicella-zoster ? virus by the SAUMYA test. ??Such individuals ? are presumed to be uninfected with VZV and to ? be susceptible to primary infection. Equivocal: Presence or absence of detectable antibodies ? to VZV IgG cannot be determined and the test ? should be repeated. Positive: ??Indicated presence of detectable antibody to ? VZV by the SAUMYA test. ??Indicative of current ? or previous infection or vaccination, hence ? immunity. Current interpretive data was last revised on 2010. Aicha Bucio SWATCH PASTER LAB BLOOD ORDERABLES Final Result HISTORICAL RESULTS * Cytology (01/16/2014) Narrative 01/16/2014 Ordered by an unspecified provider. us Historical Provider MD LAB CYTOLOGY ORDERABLES F inal Result * All Microbiology Report Section (01/16/2014 12:00 AM CDT) 01/16/2014 Narrative HISTORICAL RESULTS - 01/17/2014 1:51 PM CDT ? [facility] ?[facility] ?[place], [place] [address] ? Patient Name: ??JUMANA RIVERS ? Med Rec Number: [id number] ? Fin Number: ?[id number] ? Date: ?1990 ? Sex/Age: ? Female 23 years ? Admit Date: ?01/16/2014 ? Discharge Date: 01/16/2014 ? Doctor: ?Gynecology, Resident ? Facility: ?[facility] ? Location: ?CLOG ?* Abnormal ??A Alert ??f Footnote ??^ Corrected ??L Low ??H High ?i Interp Data ??@ Ref Lab ? Chart Type:Cumulative ?* * * * MICROBIOLOGY - GENITAL * * * * ?PROCEDURE: N. gonorrhoeae/C. trachomatis Amplification Test ? SOURCE: Endocervical ? COLLECTED: 01/16/14 ??0942 ?BODY SITE: ? STARTED: 01/16/14 ??1843 ? FREE TEXT SOURCE: ? FINAL REPORT ? REPORTED: 01/17/14 1206 ? Positive for: ??Chlamydia trachomatis rRNA Negative for: ? Neisseria gonorrhoeae rRNA ?* * * ??Interpretive Results ??* * * ? (1)Testing performed by the [employer] APTIMA Combo 2 Assay. ? This nucleic acid amplification test (NAAT) detects ribosomal ? RNA (rRNA) from Chlamydia trachomatis and Neisseria gonorrhoeae ? using target capture, and Sales Development Coordinator-Mediated Amplification ? (TMA). ??This test is approved by the [place] Food and Drug ? Administration for endocervical, vaginal, and male urethral swab ? specimens, in addition to male and female urine specimens. ??The ? performance characteristics for these specimen types have been ? verified by the [facility]. ? The performance characteristics of this test have not been ? evaluated in women or individuals less than 16 years of ? age.Current interpretive data was last revised on 2013. ? us Historical Provider MD LAB MICROBIOLOGY - GENERA L ORDERABLES Final Result HISTORICAL RESULTS * All Microbiology Report Section (01/16/2014 12:00 AM CDT) 01/16/2014 Narrative HISTORICAL RESULTS - 01/18/2014 4:48 PM CDT ? [facility] ?[facility] ?[place] [address] ? Patient Name: ??SAMREEN, DATREION L ? Med Rec Number: [id number] ? Fin Number: ?[id number] ? Date: ?1990 ? Sex/Age: ? Female 23 years ? Admit Date: ?01/16/2014 ? Discharge Date: 01/16/2014 ? Doctor: ?Gynecology, Resident ? Facility: ?[facility] ? Location: ?CLOG ?* Abnormal ??A Alert ??f Footnote ??^ Corrected ??L Low ??H High ?i Interp Data ??@ Ref Lab ? Chart Type:Cumulative ?* * * * MICROBIOLOGY - URINE * * * * ?PROCEDURE: Urine Culture ? SOURCE: Urine, clean voided ? COLLECTED: 01/16/14 ??0942 ?BODY SITE: ? STARTED: 01/16/14 ??1745 ? FREE TEXT SOURCE: ? FINAL REPORT ? REPORTED: 01/18/14 1452 ? Growth indicative of contamination with periurethral marco. ? Please submit a new specimen with special attention given to the ? collection process and to prompt transport to the laboratory. us Historical Provider MD LAB MICROBIOLOGY - GENERA L ORDERABLES Final Result HISTORICAL RESULTS * Discharge Laboratory Cumulative Report (01/16/2014 12:00 AM CDT) 01/16/2014 Narrative HISTORICAL RESULTS - 01/18/2014 7:25 PM CDT ?[facility] ?Department of Laboratories ? [address] [facility] ? [place] [address] Patient Name: ??JUMANA RIVERS Med Rec Number: [id number] Fin Number: ?[id number] Date: ?1990 Sex/Age: ? Female 23 years Admit Date: ?01/16/2014 Discharge Date: 01/16/2014 Doctor: ?Gynecology, Resident Facility: ?[facility] Location: ?CLOG Chart Printed: 01/18/2014 19:25 ?? * Abnormal ?? C Critical ?? f Footnote ?? ^ Corrected ?? L Low ?? H High ? i Interp Data ?? @ Reference Lab ? Chart Type:Periodic ?SEROLOGY - VIRAL TESTS ?Test: Varicella Ab, Saumya i ? Reference: ? Units: 01/16/2014 ?? 10:14:45 ?? Positive ??* 01/16/2014 10:14:45 Varicella Ab, Saumya: Interpretive Data Negative: ??No detectable antibody to Varicella-zoster ? virus by the SAUMYA test. ??Such individuals ? are presumed to be uninfected with VZV and to ? be susceptible to primary infection. Equivocal: Presence or absence of detectable antibodies ? to VZV IgG cannot be determined and the test ? should be repeated. Positive: ??Indicated presence of detectable antibody to ? VZV by the SAUMYA test. ??Indicative of current ? or previous infection or vaccination, hence ? immunity. Current interpretive data was last revised on 2010. ? CANCELLED TESTS Date ?Time ?Test ?Cancel Reason 01/16/2014 ??10:11:00 ??SC ANGCT ??Lab Operations Cancel 01/16/2014 ??10:11:00 ??C URINE ?? Lab Operations Cancel us Historical Provider LAB BLOOD ORDERABLES Becky paula Result Performing Organization Address City/State/[facility] Co de Phone Number HISTORICAL RESULTS documented in this encounter Visit Diagnoses Diagnosis Other specified screening Screening for malignant neoplasm of cervix Screening for malignant neoplasm of the cervix Special screening examination for other specified viral diseases Screening examination for rubella Screening examination for sexually transmitted disease Special screening examination for other specified chlamydial diseases documented in this encounter
--- OUTSIDE RECORDS SUMMARY | 2024-09-25 12:11 | XMS_ITS | Encounter Summary ---
Author Organization [facility] Care Team Providers Care Tie Inspector Name Role Phone Unavailable Primary Care Provider Unavailabl e Encounter Details Date Type Department Care Team (Latest Contact Info) Description 10/06/2013 3:28 PM INSPECTOR PACKAGER - 10/06/2013 4:00 PM INSPECTOR PACKAGER Hospital Encounter [facility] Gabriela Fairbanks MD [address] [facility] [address] [place] [address] Gynecology Encounter for removal of intrauterine contraceptive device Social History Tobacco Use Types Packs/Day Years Used Date Smoking Tobacco: Never Assessed Comments Unknown Sex and Gender Information Value Date Recorded Sex Assigned at Not on file Legal Sex Female 1:00 AM INSPECTOR PACKAGER Gender Identity Not on file Sexual Orientation Not on file documented as of this encounter Plan of Treatment Not on file documented as of this encounter Visit Diagnoses Diagnosis Encounter for removal of intrauterine contraceptive device documented in this encounter
--- OUTSIDE RECORDS SUMMARY | 2024-09-25 12:11 | XMS_ITS | Encounter Summary ---
Author Organization [facility] Facility Care Team Providers Care Hangar Attendant Name Role Phone Unavailable Primary Care Provider Unavailabl e Encounter Details Date Type Department Care Team (Late st Contact Info) Description 02/27/2013 10:29 PM CDT - 02/28/2013 3:17 AM CDT Hospital Encounter [facility] CLINCONV Social History Tobacco Use Types Packs/Day Years Used Date Smoking Tobacco: Never Assessed Comments Unknown Sex and Gender Information Value Date Recorded Sex Assigned at Not on file Legal Sex Female 1:00 AM COACH CLEANER Gender Identity Not on file Sexual Orientation Not on file documented as of this encounter Plan of Treatment Not on file documented as of this encounter Visit Diagnoses Not on filedocumented in this encounter
--- OUTSIDE RECORDS SUMMARY | 2024-09-25 12:11 | XMS_ITS | Encounter Summary ---
Author Organization [facility] Facility Care Team Providers Care Architecture Manager Name Role Phone Unavailable Primary Care Provider Unavailabl e Encounter Details Date Type Department Care Team (Late st Contact Info) Description 01/18/2014 10:34 AM CDT - 01/18/2014 4:00 PM CDT Hospital Encounter [facility] Isaiah Hull MD [address] [facility] [address] [phone] [place] [address] Gynecology Social History Tobacco Use Types Packs/Day Years Used Date Smoking Tobacco: Never Assessed Comments Unknown Sex and Gender Information Value Date Recorded Sex Assigned at Not on file Legal Sex Female 1:00 AM AUTOMATIC TOE LASTER Gender Identity Not on file Sexual Orientation Not on file documented as of this encounter Plan of Treatment Not on file documented as of this encounter Visit Diagnoses Not on filedocumented in this encounter
--- OUTSIDE RECORDS SUMMARY | 2024-09-25 12:11 | XMS_ITS | Encounter Summary ---
Author Organization [facility] Facility Care Team Providers Care White Lead Filterer Name Role Phone Unavailable Primary Care Provider Unavailabl e Encounter Details Date Type Department Care Team (Late st Contact Info) Description 02/27/2014 8:40 AM CDT - 02/27/2014 4:00 PM T Hospital Encounter [facility] Isaiah Hull MD [address] [address] [phone] [place] [address] Gynecology Other specified screening Social History Tobacco Use Types Packs/Day Years Used Date Smoking Tobacco: Never Assessed Comments Unknown Sex and Gender Information Value Date Recorded Sex Assigned at Not on file Legal Sex Female 1:00 AM FREIGHT ADJUSTER Gender Identity Not on file Sexual Orientation Not on file documented as of this encounter Plan of Treatment Not on file documented as of this encounter Visit Diagnoses Diagnosis Other specified screening documented in this encounter
--- OUTSIDE RECORDS SUMMARY | 2024-09-25 12:12 | XMS_ITS | Encounter Summary ---
Author Organization [facility] Facility Care Team Providers Care Ebay Reseller Name Role Phone Unavailable Primary Care Provider Unavailabl e Encounter Details Date Type Department Care Team (Latest Contact Info) Description 01/23/2013 4:46 PM CDT - 01/23/2013 10:20 PM CDT Hospital Encounter [facility] Josh Boogie MD [address] [place] [address] Acute infection of female upper reproductive tract; Asthma Social History Tobacco Use Types Packs/Day Years Used Date Smoking Tobacco: Never Assessed Comments Unknown Sex and Gender Information Value Date Recorded Sex Assigned at Not on file Legal Sex Female 1:00 AM INSTALLATION COORDINATOR Gender Identity Not on file Sexual Orientation Not on file documented as of this encounter Plan of Treatment Not on file documented as of this encounter Procedures Procedure Name Priority Date/Time Associated Diagnosis Comments N. GONORRHOEAE, CHLAMYDIA TRACHOMATIS AMPLIFICATION TEST, CDR Routine 01/23/2013 9:49 PM CDT PLASMA BASIC METABOLIC PANEL Routine 01/23/2013 7:48 PM CDT BLOOD CELL COUNT (CBC) Routine 3 7:48 PM CDT URINE CHORIONIC GONADOTROPIN (HCG) Routine 01/23/2013 7:41 PM CDT URINE MICROSCOPY Routine 01/23/2013 6:23 PM CDT URINALYSIS Routine 01/23/2013 6:23 PM CDT ALL MICROBIOLOGY REPORT SECTION Routine 01/23/2013 12:00 AM CDT documented in this encounter Results * Neisseria gonorrhoeae, Chlamydia trachomatis amplification test (01/23/2013 9:49 PM CDT) Endocervical (Unknown) 01/23/2013 9:49 PM CDT 01/23/2013 10:35 PM CDT Impressions HISTORICAL RESULTS - 01/24/2013 1:41 PM CDT Testing performed by the [employer] APTIMA Combo 2 Assay. ??This nucleic acid amplification test (NAAT) detects ribosomal RNA (rRNA) from Chlamydia trachomatis and Neisseria gonorrhoeae using target capture, and Bottoming Machine Operator-Mediated Amplification (TMA). Current interpretive data was last revised on 2011. Narrative HISTORICAL RESULTS - 01/24/2013 1:41 PM CDT Negative for: ??Chlamydia trachomatis rRNA Negative for: ??Neisseria gonorrhoeae rRNA us Historical Provider LAB MICROBIOLOGY - GENERA L ORDERABLES Final Result HISTORICAL RESULTS * Plasma basic metabolic panel (01/23/2013 7:48 PM CDT) Sodium 139 135 - 145 mmol/L HISTORICAL RESULTS K, pl 3.9 3.3 - 4.9 mmol/L HISTORICAL RESULTS Chloride 104 97 - 110 mmol/L HISTORICAL RESULTS CO2 26 22 - 32 mmol/L HISTORICAL RESULTS A. gap 9 0 - 16 mmol/L HISTORICAL RESULTS Glucose 81 65 - 199 mg/dl HISTORICAL RESULTS BUN 8 8 - 25 mg/dl HISTORICAL RESULTS Creatinine 0.60 0.60 - 1.10 mg/dl HISTORICAL RESULTS Calcium 9.0 8.6 - 10.3 mg/dl HISTORICAL RESULTS Plasma 01/23/2013 7:48 PM CDT Josh Phipps MD LAB BLOOD ORDERABLES Becky l Result HISTORICAL RESULTS * (ABNORMAL) Blood cell count (CBC) (01/23/2013 7:48 PM CDT) WBC 7.9 3.8 - 9.8 K/cumm HISTORICAL RESULTS Basophils 0.8 0.0 - 3.0 % HISTORICAL RESULTS RBC 4.54 3.90 - 5.00 M/cumm HISTORICAL RESULTS Neutrophils, abs 4.0 1.8 - 6.6 K/cumm HISTORICAL RESULTS Hgb 11.4(L) 12.1 - 15.1 g/dl HISTORICAL RESULTS Lymphocytes, abs 2.7 1.2 - 3.3 K/cumm HISTORICAL RESULTS Hct 36.5 36.1 - 44.3 % HISTORICAL RESULTS Monocytes, absolute 0.7 0.2 - 1.2 K/cumm HISTORICAL RESULTS MCV 80.3 80.0 - 97.6 fl HISTORICAL RESULTS Eosinophils, abs 0.4 0.0 - 0.5 K/cumm HISTORICAL RESULTS MCH 25.2(L) 26.7 - 33.7 pg HISTORICAL RESULTS Basophils, abs 0.1 0.0 - 0.2 K/cumm HISTORICAL RESULTS MCHC 31.4(L) 32.7 - 35.5 g/dl HISTORICAL RESULTS Rdw 17.2(H) 11.8 - 14.6 % HISTORICAL RESULTS Platelets 354 140 - 440 K/cumm HISTORICAL RESULTS MPV 7.9 6.8 - 10.4 fl HISTORICAL RESULTS Neutrophils 51.1 38.7 - 74.5 % HISTORICAL RESULTS Lymphocytes 34.2 20.0 - 54.3 % HISTORICAL RESULTS Monos 9.0 4.3 - 13.5 % HISTORICAL RESULTS Eosinophils 4.9 0.0 - 6.0 % HISTORICAL RESULTS Blood specimen (specimen) 01/23/2013 7:48 PM CDT Josh Phipps MD LAB BLOOD ORDERABLES Becky l Result HISTORICAL RESULTS * Urine chorionic gonadotropin (HCG) (01/23/2013 7:41 PM CDT) HCG, ur Negative HISTORICAL RESULTS Urine 01/23/2013 7:41 PM CDT Justin Peres MD LAB BLOOD ORDERABLES Final Result Performing Organization Address [facility] de Phone Number HISTORICAL RESULTS * (ABNORMAL) Urinalysis (01/23/2013 6:23 PM CDT) [facility] U Blood Negative Negative HISTORICAL RESULTS Color, ur Yellow Yellow HISTORICAL RESULTS Urobilinogen, quant, ur 2.0 0.0 - 2.0 mg/dl HISTORICAL RESULTS Clarity, ur Clear Clear HISTORIC AL RESULTS Nitrites, ur Negative Negative HISTORI SANTHOSH RESULTS Specific gravity, ur 1.020 1.003 - 1.030 HISTORICAL RESULTS Leukocyte esterase, ur 1+(A) Negative HISTORICAL RESULTS pH, ur 8.5(H) 5.0 - 8.0 HISTORICAL RESULTS Protein, ur Trace Trace HISTORIC AL RESULTS Glucose, ur Negative Negative HISTORIC AL RESULTS Ketones, ur Negative Negative HISTORIC AL RESULTS Bilirubin, ur Negative Negative HISTOR ICAL RESULTS Urine 01/23/2013 6:23 PM CDT Justin Peres MD LAB BLOOD ORDERABLES Final Result Performing Organization Address [facility] de Phone Number HISTORICAL RESULTS * Urine microscopy (01/23/2013 6:23 PM CDT) [facility] RBC, ur 2 0 - 3 /hpf HISTORICA L RESULTS WBC, ur 2 0 - 5 /hpf HISTORICA L RESULTS Bacteria, ur Negative Trace HISTORI SANTHOSH RESULTS Epithelial cells, renal, ur 0 0 - 0 /hpf HISTORICAL RESULTS Epithelial cells, squamous, ur >20 /lpf HISTORICAL RESULTS Mucus, ur Small /hpf HISTORICAL RESULTS Urine 01/23/2013 6:23 PM CDT Justin Peres MD LAB BLOOD ORDERABLES Final Result Performing Organization Address [facility] de Phone Number HISTORICAL RESULTS * All Microbiology Report Section (01/23/2013 12:00 AM CDT) 01/23/2013 Narrative HISTORICAL RESULTS - 01/24/2013 4:15 PM CDT ? [facility] ?[facility] [place] ?[place], [place] [facility] [address] ? Patient Name: ??RIVERS, DATREION L ? Med Rec Number: [id number] ? Fin Number: ?[id number] ? Date: ?1990 ? Sex/Age: ? Female 22 years ? Admit Date: ?01/23/2013 ? Discharge Date: 01/23/2013 ? Doctor: ?Moise , Josh C ? Facility: ?[facility] ? Location: ?[id number] ?* Abnormal ??A Alert ??f Footnote ??^ Corrected ??L Low ??H High ?i Interp Data ??@ Ref Lab ? Chart Type:Cumulative ?* * * * MICROBIOLOGY - GENITAL * * * * ?PROCEDURE: N. gonorrhoeae/C. trachomatis Amplification Test ? SOURCE: Endocervical ? COLLECTED: 01/23/13 ??2149 ?BODY SITE: ? STARTED: 01/23/13 ??2235 ? FREE TEXT SOURCE: ? FINAL REPORT ? REPORTED: 01/24/13 1341 ? Negative for: ??Chlamydia trachomatis rRNA Negative for: ? Neisseria gonorrhoeae rRNA ?* * * ??Interpretive Results ??* * * ? (1)Testing performed by the [employer] APTIMA Combo 2 Assay. ? This nucleic acid amplification test (NAAT) detects ribosomal ? RNA (rRNA) from Chlamydia trachomatis and Neisseria gonorrhoeae ? using target capture, and Bottoming Machine Operator-Mediated Amplification ? (TMA).Current interpretive data was last revised on 2011. ? us Historical Provider LAB MICROBIOLOGY - GENERA L ORDERABLES Final Result HISTORICAL RESULTS documented in this encounter Visit Diagnoses Diagnosis Acute infection of female upper reproductive tract Asthma Unspecified asthma documented in this encounter
--- OUTSIDE RECORDS SUMMARY | 2024-09-25 12:12 | XMS_ITS | Encounter Summary ---
Author Organization [facility] Facility Care Team Providers Care Director Of Student Services Name Role Phone Unavailable Primary Care Provider Unavailabl e Encounter Details Date Type Department Care Team (Late st Contact Info) Description 02/05/2013 6:13 PM CDT - 02/05/2013 7:28 PM CDT Hospital Encounter [facility] Hien Werner, SUPERVISOR ADVERTISING DISPATCH CLERKS [address] [place] [address] Contact dermatitis and other eczema; Asthma Social History Tobacco Use Types Packs/Day Years Used Date Smoking Tobacco: Never Assessed Comments Unknown Sex and Gender Information Value Date Recorded Sex Assigned at Not on file Legal Sex Female 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
--- OUTSIDE RECORDS SUMMARY | 2024-09-25 12:12 | XMS_ITS | Encounter Summary ---
Author Organization [facility] Facility Care Team Providers Care Centrifuge Separator Tender Name Role Phone Unavailable Primary Care Provider Unavailabl e Encounter Details Date Type Department Care Team (Late st Contact Info) Description 12/22/2012 12:29 PM CDT - 12/22/2012 4:00 PM T Hospital Encounter [facility] Ismael Adames MD [address] [place] [address] Allergic rhinitis Social History Tobacco Use Types Packs/Day Years Used Date Smoking Tobacco: Never Assessed Comments Unknown Sex and Gender Information Value Date Recorded Sex Assigned at Not on file Legal Sex Female 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
--- OUTSIDE RECORDS SUMMARY | 2024-09-25 12:13 | XMS_ITS | Encounter Summary ---
Author Organization [facility] Facility Care Team Providers Care Fig Bar Machine Operator Name Role Phone Unavailable Primary Care Provider Unavailabl e Encounter Details Date Type Department Care Team (Late st Contact Info) Description 03/06/2012 10:14 AM CDT - 03/06/2012 2:35 PM T Hospital Encounter [facility] Jai Landeros MD [address], [place] [address] Dizziness and giddiness; Headache Social History Tobacco Use Types Packs/Day Years Used Date Smoking Tobacco: Never Assessed Comments Unknown Sex and Gender Information Value Date Recorded Sex Assigned at Not on file Legal Sex Female 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
--- OUTSIDE RECORDS SUMMARY | 2024-09-25 12:13 | XMS_ITS | Encounter Summary ---
Author Organization [facility] Facility Care Team Providers Care Hang Gliding Instructor Name Role Phone Unavailable Primary Care Provider Unavailabl e Encounter Details Date Type Department Care Team (Latest Contact Info) Description 04/16/2011 2:39 PM CDT - 04/16/2011 4:00 PM CDT Hospital Encounter [facility] Gabriela Fairbanks MD [address] [facility] [address] [place] [address] Gynecology Encounter for insertion of intrauterine contraceptive device; examination or test, negative result; Screening examination for sexually transmitted disease; Special screening examination for other specified chlamydial diseases Social History Tobacco Use Types Packs/Day Years Used Date Smoking Tobacco: Never Assessed Comments Unknown Sex and Gender Information Value Date Recorded Sex Assigned at Not on file 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
--- OUTSIDE RECORDS SUMMARY | 2024-09-25 12:13 | XMS_ITS | Encounter Summary ---
Author Organization [facility] Facility Care Team Providers Care Construction Field Engineer Name Role Phone Unavailable Primary Care Provider Unavailabl e Encounter Details Date Type Department Care Team (Late st Contact Info) Description 01/07/2012 7:15 AM CDT - 01/07/2012 8:53 AM CDT Hospital Encounter [facility] Libby Green MD [address] [place] [address] Cervicalgia Social History Tobacco Use Types Packs/Day Years Used Date Smoking Tobacco: Never Assessed Comments Unknown Sex and Gender Information Value Date Recorded Sex Assigned at Not on file Legal Sex Female 1:00 AM OFFICE ASSISTANCE Gender Identity Not on file Sexual Orientation Not on file documented as of this encounter Plan of Treatment Not on file documented as of this encounter Visit Diagnoses Diagnosis Cervicalgia documented in this encounter
--- OUTSIDE RECORDS SUMMARY | 2024-09-25 12:13 | XMS_ITS | Encounter Summary ---
Author Organization [facility] Facility Care Team Providers Care Practical Ministries Professor Name Role Phone Unavailable Primary Care Provider Unavailabl e Encounter Details Date Type Department Care Team (Late st Contact Info) Description 07/02/2011 7:21 AM CDT - 07/02/2011 2:50 PM CDT Hospital Encounter [facility] Benny Wright Esophageal reflux; Nausea with vomiting; Diarrhea; Chills without fever; Heartburn; Asthma Social History Tobacco Use Types Packs/Day Years Used Date Smoking Tobacco: Never Assessed Comments Unknown Sex and Gender Information Value Date Recorded Sex Assigned at Not on file Legal Sex Female 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
--- OUTSIDE RECORDS SUMMARY | 2024-09-25 12:13 | XMS_ITS | Encounter Summary ---
Author Organization [facility] Facility Care Team Providers Care Dialer Name Role Phone Unavailable Primary Care Provider Unavailabl e Encounter Details Date Type Department Care Team (Late st Contact Info) Description 09/10/2010 - 09/06/2011 11:59 PM PRICE ACCURACY SUPERVISOR Hospital Encounter [facility] Social History Tobacco Use Types Packs/Day Years Used Date Smoking Tobacco: Never Assessed Comments Unknown Sex and Gender Information Value Date Recorded Sex Assigned at Not on file Legal Sex Female 1:00 AM PRICE ACCURACY SUPERVISOR Gender Identity Not on file Sexual Orientation Not on file documented as of this encounter Plan of Treatment Not on file documented as of this encounter Visit Diagnoses Not on filedocumented in this encounter
--- OUTSIDE RECORDS SUMMARY | 2024-09-25 12:14 | XMS_ITS | Encounter Summary ---
Author Organization [facility] Facility Care Team Providers Care Supervisor Cd Area Name Role Phone Unavailable Primary Care Provider Unavailabl e Encounter Details Date Type Department Care Team (Late st Contact Info) Description 02/19/2011 5:40 AM CDT - 02/19/2011 6:38 AM CDT Hospital Encounter [facility] Eber Metz MD [address] [facility] [address] [place] [address] Other threatened labor, antepartum Social History Tobacco Use Types Packs/Day Years Used Date Smoking Tobacco: Never Assessed Comments Unknown Sex and Gender Information Value Date Recorded Sex Assigned at Not on file 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
--- OUTSIDE RECORDS SUMMARY | 2024-09-25 12:14 | XMS_ITS | Encounter Summary ---
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
--- OUTSIDE RECORDS SUMMARY | 2024-09-25 12:14 | XMS_ITS | Encounter Summary ---
Author Organization [facility] Facility Care Team Providers Care Starch Mangle Tender Name Role Phone Unavailable Primary Care Provider Unavailabl e Encounter Details Date Type Department Care Team (Late st Contact Info) Description 03/21/2011 11:17 AM CDT - 03/21/2011 3:05 PM T Hospital En[facility] Cervicitis and endocervicitis; Cystitis; Genitourinary infection in , condition; Urinary frequency; Asthma Social History Tobacco Use Types Packs/Day Years Used Date Smoking Tobacco: Never Assessed Comments Unknown Sex and Gender Information Value Date Recorded Sex Assigned at Not on file Legal Sex Female 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
--- OUTSIDE RECORDS SUMMARY | 2024-09-25 12:14 | XMS_ITS | Encounter Summary ---
Author Organization [facility] Facility Care Team Providers Care Cooling Pan Tender Name Role Phone Unavailable Primary Care Provider Unavailabl e Encounter Details Date Type Department Care Team (Late st Contact Info) Description 04/08/2011 12:08 PM CDT - 04/08/2011 4:00 PM T Hospital Encounter [facility] Gabriela Fairbanks MD [address] [place] [address] Gynecology Routine follow-up; mental disorders of mother; Other depressive disorder; examination or test, negative result Social History Tobacco Use Types Packs/Day Years Used Date Smoking Tobacco: Never Assessed Comments Unknown Sex and Gender Information Value Date Recorded Sex Assigned at Not on file Legal Sex Female 1:00 AM ESCROW PROCESSOR Gender Identity Not on file Sexual Orientation Not on file documented as of this encounter Plan of Treatment Not on file documented as of this encounter Visit Diagnoses Diagnosis Routine follow-up mental disorders of mother Mental disorders of mother, Other depressive disorder examination or test, negative result documented in this encounter
--- OUTSIDE RECORDS SUMMARY | 2024-09-25 12:14 | XMS_ITS | Encounter Summary ---
Author Organization [facility] Facility Care Team Providers Care Waistline Joiner Lockstitch Name Role Phone Unavailable Primary Care Provider Unavailabl e Encounter Details Date Type Department Care Team (Latest Contact Info) Description 02/21/2011 7:15 AM CDT - 02/23/2011 11:01 AM CDT Hospital Encounter [facility] Eber Metz MD [address] [place] [address] First-degree perineal laceration, delivered; Asthma; Old myocardial infarction; Other current maternal conditions classifiable elsewhere, with delivery; Carrier or suspected carrier of group B Streptococcus; Abnormal amniotic fluid; Delivery outcome of single liveborn infant Social History Tobacco Use Types Packs/Day Years Used Date Smoking Tobacco: Never Assessed Comments Unknown Sex and Gender Information Value Date Recorded Sex Assigned at Not on file Legal Sex Female 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
--- OUTSIDE RECORDS SUMMARY | 2024-09-25 12:15 | XMS_ITS | Encounter Summary ---
Author Organization [facility] Facility Care Team Providers Care Forming Department End Finder Name Role Phone Unavailable Primary Care Provider Unavailabl e Encounter Details Date Type Department Care Team (Late st Contact Info) Description 2011 1:47 PM CDT - 2011 4:00 PM CDT Hospital Encounter [facility] Isaiah Hull MD [address] [facility] [phone] [place] [address] Gynecology Encounter for supervision of normal in multigravida Social History Tobacco Use Types Packs/Day Years Used Date Smoking Tobacco: Never Assessed Comments Unknown Sex and Gender Information Value Date Recorded Sex Assigned at Not on file Legal Sex Female 1:00 AM RECORD TESTER Gender Identity Not on file Sexual Orientation Not on file documented as of this encounter Plan of Treatment Not on file documented as of this encounter Visit Diagnoses Diagnosis Encounter for supervision of normal in multigravida documented in this encounter
--- OUTSIDE RECORDS SUMMARY | 2024-09-25 12:15 | XMS_ITS | Encounter Summary ---
Author Organization [facility] Facility Care Team Providers Care Water Service Supervisor Name Role Phone Unavailable Primary Care Provider Unavailabl e Encounter Details Date Type Department Care Team (Late st Contact Info) Description 02/11/2011 1:58 PM CDT - 02/11/2011 4:00 PM CDT Hospital Encounter [facility] Isaiah Hull MD [phone] [place] [address] Gynecology Encounter for supervision of normal in multigravida Social History Tobacco Use Types Packs/Day Years Used Date Smoking Tobacco: Never Assessed Comments Unknown Sex and Gender Information Value Date Recorded Sex Assigned at Not on file Legal Sex Female 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
--- OUTSIDE RECORDS SUMMARY | 2024-09-25 12:15 | XMS_ITS | Encounter Summary ---
Author Organization [facility] Facility Care Team Providers Care Online Advertising Analyst Name Role Phone Unavailable Primary Care Provider Unavailabl e Encounter Details Date Type Department Care Team (Late st Contact Info) Description 01/19/2011 2:54 PM CDT - 01/19/2011 5:06 PM CDT Hospital Encounter [facility] Isaiah Hull MD [address] [phone] [place] [address] Observation and evaluation for other specified suspected conditions; Other current maternal conditions classifiable elsewhere, antepartum; Threatened premature labor, antepartum(644.03); Abdominal pain Social History Tobacco Use Types Packs/Day Years Used Date Smoking Tobacco: Never Assessed Comments Unknown Sex and Gender Information Value Date Recorded Sex Assigned at Not on file Legal Sex Female 1:00 AM CARGO SURVEYOR Gender Identity Not on file Sexual Orientation Not on file documented as of this encounter Plan of Treatment Not on file documented as of this encounter Visit Diagnoses Diagnosis Observation and evaluation for other specified suspected conditions Other current maternal conditions classifiable elsewhere, antepartum Threatened premature labor, antepartum(644.03) Threatened premature labor, antepartum Abdominal pain Abdominal pain, unspecified site documented in this encounter
--- OUTSIDE RECORDS SUMMARY | 2024-09-25 12:15 | XMS_ITS | Encounter Summary ---
Author Organization [facility] Facility Care Team Providers Care Cradle Placer Name Role Phone Unavailable Primary Care Provider Unavailabl e Encounter Details Date Type Department Care Team (Late st Contact Info) Description 01/28/2011 1:11 PM CDT - 01/28/2011 4:00 PM T Hospital Encounter [facility] Isaiah Hull MD [address] [phone] [place] [address] Gynecology Encounter for supervision of normal in multigravida; Screening examination for sexually transmitted disease; Special screening examination for chlamydial disease; Special screening examination for other specified viral diseases; Encounter for screening of mother Social History Tobacco Use Types Packs/Day Years Used Date Smoking Tobacco: Never Assessed Comments Unknown Sex and Gender Information Value Date Recorded Sex Assigned at Not on file Legal Sex Female 1:00 AM CRUISE DIRECTOR Gender Identity Not on file Sexual Orientation Not on file documented as of this encounter Plan of Treatment Not on file documented as of this encounter Visit Diagnoses Diagnosis Encounter for supervision of normal in multigravida Screening examination for sexually transmitted disease Special screening examination for chlamydial disease Special screening examination for unspecified chlamydial disease Special screening examination for other specified viral diseases Encounter for screening of mother documented in this encounter
--- OUTSIDE RECORDS SUMMARY | 2024-09-25 12:15 | XMS_ITS | Encounter Summary ---
Author Organization [facility] Facility Care Team Providers Care Rubber Mill Operator Name Role Phone Unavailable Primary Care Provider Unavailabl e Encounter Details Date Type Department Care Team (Late st Contact Info) Description 02/04/2011 1:46 PM CDT - 02/04/2011 4:00 PM CDT Hospital Encounter [facility] Isaiah Hull MD [address] [facility] [address] [phone] [place] [address] Gynecology Encounter for supervision of normal in multigravida Social History Tobacco Use Types Packs/Day Years Used Date Smoking Tobacco: Never Assessed Comments Unknown Sex and Gender Information Value Date Recorded Sex Assigned at Not on file Legal Sex Female 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
--- OUTSIDE RECORDS SUMMARY | 2024-09-25 12:15 | XMS_ITS | Encounter Summary ---
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
--- OUTSIDE RECORDS SUMMARY | 2024-09-25 12:16 | XMS_ITS | Encounter Summary ---
Author Organization [facility] Facility Care Team Providers Care Assembler Installer Structures Name Role Phone Unavailable Primary Care Provider Unavailabl e Encounter Details Date Type Department Care Team (Late st Contact Info) Description 01/16/2011 8:39 PM CDT - 01/17/2011 3:05 AM T Hospital Encounter [facility] Lind[facility] MD [address] [place] [address] Decreased movements affecting management of mother, antepartum; Abdominal pain, right lower quadrant; Asthma; Fall from other slipping, tripping, or stumbling; Place of occurrence, home Social History Tobacco Use Types Packs/Day Years Used Date Smoking Tobacco: Never Assessed Comments Unknown Sex and Gender Information Value Date Recorded Sex Assigned at Not on file Legal Sex Female 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
--- OUTSIDE RECORDS SUMMARY | 2024-09-25 12:16 | XMS_ITS | Encounter Summary ---
Author Organization [facility] Facility Care Team Providers Care Spark Plug Tester Name Role Phone Unavailable Primary Care Provider Unavailabl e Encounter Details Date Type Department Care Team (Latest Contact Info) Description 01/19/2011 2:43 PM CDT - 01/19/2011 2:47 PM CDT Hospital Encounter [facility] Other current maternal conditions classifiable elsewhere, antepartum; Abdominal pain Social History Tobacco Use Types Packs/Day Years Used Date Smoking Tobacco: Never Assessed Comments Unknown Sex and Gender Information Value Date Recorded Sex Assigned at Not on file Legal Sex Female 1:00 AM RESIDENTIAL WORKER Gender Identity Not on file Sexual Orientation Not on file documented as of this encounter Plan of Treatment Not on file documented as of this encounter Visit Diagnoses Diagnosis Other current maternal conditions classifiable elsewhere, antepartum Abdominal pain Abdominal pain, unspecified site documented in this encounter
--- OUTSIDE RECORDS SUMMARY | 2024-09-25 12:17 | XMS_ITS | Encounter Summary ---
Author Organization [facility] Facility Care Team Providers Care Assistant Field Hockey Coach Name Role Phone Unavailable Primary Care Provider Unavailabl e Encounter Details Date Type Department Care Team (Latest Contact Info) Description 12/13/2010 9:31 PM CDT - 12/13/2010 11:17 PM T Hospital Encounter [facility] Mere Katz MD [address] [facility] [address] [place] [address] Other current maternal conditions classifiable elsewhere, antepartum; Abdominal pain; Diarrhea Social History Tobacco Use Types Packs/Day Years Used Date Smoking Tobacco: Never Assessed Comments Unknown Sex and Gender Information Value Date Recorded Sex Assigned at Not on file Legal Sex Female 1:00 AM DAMAGE PREVENTION COORDINATOR Gender Identity Not on file Sexual Orientation Not on file documented as of this encounter Plan of Treatment Not on file documented as of this encounter Visit Diagnoses Diagnosis Other current maternal conditions classifiable elsewhere, antepartum Abdominal pain Abdominal pain, unspecified site Diarrhea documented in this encounter
--- OUTSIDE RECORDS SUMMARY | 2024-09-25 12:17 | XMS_ITS | Encounter Summary ---
Author Organization [facility] Facility Care Team Providers Care Huller Operator Name Role Phone Unavailable Primary Care Provider Unavailabl e Encounter Details Date Type Department Care Team (Late st Contact Info) Description 12/17/2010 2:04 PM CDT - 12/17/2010 4:00 PM CDT Hospital Encounter [facility] Isaiah Hull MD [address] [facility] [address] [phone] [place] [address] Gynecology Encounter for supervision of normal in multigravida Social History Tobacco Use Types Packs/Day Years Used Date Smoking Tobacco: Never Assessed Comments Unknown Sex and Gender Information Value Date Recorded Sex Assigned at Not on file Legal Sex Female 1:00 AM MAILROOM COORDINATOR Gender Identity Not on file Sexual Orientation Not on file documented as of this encounter Plan of Treatment Not on file documented as of this encounter Visit Diagnoses Diagnosis Encounter for supervision of normal in multigravida documented in this encounter
--- OUTSIDE RECORDS SUMMARY | 2024-09-25 12:17 | XMS_ITS | Encounter Summary ---
Author Organization [facility] Facility Care Team Providers Care Can Piler Name Role Phone Unavailable Primary Care Provider Unavailabl e Encounter Details Date Type Department Care Team (Late st Contact Info) Description 01/14/2011 12:49 PM CDT - 01/14/2011 4:00 PM CDT Hospital Encounter [facility] Isaiah Hull MD [address] [facility] [address] [phone] [place] [address] Gynecology Encounter for supervision of normal in multigravida Social History Tobacco Use Types Packs/Day Years Used Date Smoking Tobacco: Never Assessed Comments Unknown Sex and Gender Information Value Date Recorded Sex Assigned at Not on file Legal Sex Female 1:00 AM LIVE STUDY MANAGER Gender Identity Not on file Sexual Orientation Not on file documented as of this encounter Plan of Treatment Not on file documented as of this encounter Visit Diagnoses Diagnosis Encounter for supervision of normal in multigravida documented in this encounter
--- OUTSIDE RECORDS SUMMARY | 2024-09-25 12:17 | XMS_ITS | Encounter Summary ---
Author Organization [facility] Facility Care Team Providers Care Boatswains Mate Name Role Phone Unavailable Primary Care Provider Unavailabl e Encounter Details Date Type Department Care Team (Late st Contact Info) Description 12/03/2010 12:00 PM CDT - 12/03/2010 4:00 PM CDT Hospital Encounter [facility] Isaiah Hull MD [address] [facility] [address] [phone] [place] [address] Gynecology Encounter for supervision of normal in multigravida Social History Tobacco Use Types Packs/Day Years Used Date Smoking Tobacco: Never Assessed Comments Unknown Sex and Gender Information Value Date Recorded Sex Assigned at Not on file Legal Sex Female 1:00 AM OPERATIONS WELDER Gender Identity Not on file Sexual Orientation Not on file documented as of this encounter Plan of Treatment Not on file documented as of this encounter Visit Diagnoses Diagnosis Encounter for supervision of normal in multigravida documented in this encounter
--- OUTSIDE RECORDS SUMMARY | 2024-09-25 12:17 | XMS_ITS | Encounter Summary ---
Author Organization [facility] Facility Care Team Providers Care Credit Negotiator Name Role Phone Unavailable Primary Care Provider Unavailabl e Encounter Details Date Type Department Care Team (Late st Contact Info) Description 12/31/2010 12:44 PM CDT - 12/31/2010 4:00 PM CDT Hospital Encounter [facility] Isaiah Hull MD [address] [facility] [address] [phone] [place] [address] Gynecology Encounter for supervision of normal in multigravida Social History Tobacco Use Types Packs/Day Years Used Date Smoking Tobacco: Never Assessed Comments Unknown Sex and Gender Information Value Date Recorded Sex Assigned at Not on file Legal Sex Female 1:00 AM PRESSURE TESTER OPERATOR Gender Identity Not on file Sexual Orientation Not on file documented as of this encounter Plan of Treatment Not on file documented as of this encounter Visit Diagnoses Diagnosis Encounter for supervision of normal in multigravida documented in this encounter
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
--- OUTSIDE RECORDS SUMMARY | 2024-09-25 12:18 | XMS_ITS | Encounter Summary ---
Author Organization [facility] Facility Care Team Providers Care Activities Manager Name Role Phone Unavailable Primary Care Provider Unavailabl e Encounter Details Date Type Department Care Team (Late st Contact Info) Description 10/07/2010 9:53 AM CORE MAKER HELPER - 10/07/2010 4:00 PM CORE MAKER HELPER Hospital Encounter [facility] Isaiah Hull MD [address] [phone] [place] [address] Gynecology Other specified screening Social History Tobacco Use Types Packs/Day Years Used Date Smoking Tobacco: Never Assessed Comments Unknown Sex and Gender Information Value Date Recorded Sex Assigned at Not on file Legal Sex Female 1:00 AM CORE MAKER HELPER Gender Identity Not on file Sexual Orientation Not on file documented as of this encounter Plan of Treatment Not on file documented as of this encounter Visit Diagnoses Diagnosis Other specified screening documented in this encounter
--- OUTSIDE RECORDS SUMMARY | 2024-09-25 12:18 | XMS_ITS | Encounter Summary ---
Author Organization [facility] Facility Care Team Providers Care Monitor Technician Name Role Phone Unavailable Primary Care Provider Unavailabl e Encounter Details Date Type Department Care Team (Late st Contact Info) Description 09/10/2010 8:35 AM CHANGE ADVISOR - 09/10/2010 4:00 PM CHANGE ADVISOR Hospital Encounter [facility] Isaiah Hull MD [address] [phone] [place] [address] Gynecology Encounter for supervision of normal in multigravida Social History Tobacco Use Types Packs/Day Years Used Date Smoking Tobacco: Never Assessed Comments Unknown Sex and Gender Information Value Date Recorded Sex Assigned at Not on file Legal Sex Female 1:00 AM CHANGE ADVISOR Gender Identity Not on file Sexual Orientation Not on file documented as of this encounter Plan of Treatment Not on file documented as of this encounter Visit Diagnoses Diagnosis Encounter for supervision of normal in multigravida documented in this encounter
--- OUTSIDE RECORDS SUMMARY | 2024-09-25 12:18 | XMS_ITS | Encounter Summary ---
Author Organization [facility] Facility Care Team Providers Care Planisher Name Role Phone Unavailable Primary Care Provider Unavailabl e Encounter Details Date Type Department Care Team (Late st Contact Info) Description 11/12/2010 12:46 PM CRM MARKETING SPECIALIST - 11/12/2010 4:00 PM CRM MARKETING SPECIALIST Hospital Encounter [facility] Isaiah Hull MD [address] [phone] [place] [address] Gynecology Encounter for supervision of normal in multigravida Social History Tobacco Use Types Packs/Day Years Used Date Smoking Tobacco: Never Assessed Comments Unknown Sex and Gender Information Value Date Recorded Sex Assigned at Not on file Legal Sex Female 1:00 AM CRM MARKETING SPECIALIST Gender Identity Not on file Sexual Orientation Not on file documented as of this encounter Plan of Treatment Not on file documented as of this encounter Visit Diagnoses Diagnosis Encounter for supervision of normal in multigravida documented in this encounter
--- OUTSIDE RECORDS SUMMARY | 2024-09-25 12:18 | XMS_ITS | Encounter Summary ---
Author Organization [facility] Facility Care Team Providers Care Mortgage Sales Manager Name Role Phone Unavailable Primary Care Provider Unavailabl e Encounter Details Date Type Department Care Team (Late st Contact Info) Description 10/15/2010 12:27 PM AIRCRAFT STRESS ANALYST - 10/15/2010 4:00 PM AIRCRAFT STRESS ANALYST Hospital Encounter [facility] Isaiah Hull MD [address] [phone] [place] [address] Gynecology Encounter for supervision of normal in multigravida Social History Tobacco Use Types Packs/Day Years Used Date Smoking Tobacco: Never Assessed Comments Unknown Sex and Gender Information Value Date Recorded Sex Assigned at Not on file Legal Sex Female 1:00 AM AIRCRAFT STRESS ANALYST Gender Identity Not on file Sexual Orientation Not on file documented as of this encounter Plan of Treatment Not on file documented as of this encounter Visit Diagnoses Diagnosis Encounter for supervision of normal in multigravida documented in this encounter
--- OUTSIDE RECORDS SUMMARY | 2024-09-25 12:19 | XMS_ITS | Encounter Summary ---
Author Organization [facility] Facility Care Team Providers Care Soft Metals Engraver Hand Name Role Phone Unavailable Primary Care Provider Unavailabl e Encounter Details Date Type Department Care Team (Late st Contact Info) Description 08/13/2010 8:40 AM MATERIAL CREW SUPERVISOR - 08/13/2010 4:00 PM MATERIAL CREW SUPERVISOR Hospital Encounter [facility] Isaiah Hull MD [address] [phone] [place] [address] Gynecology Encounter for supervision of normal in multigravida Social History Tobacco Use Types Packs/Day Years Used Date Smoking Tobacco: Never Assessed Comments Unknown Sex and Gender Information Value Date Recorded Sex Assigned at Not on file Legal Sex Female 1:00 AM MATERIAL CREW 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
--- OUTSIDE RECORDS SUMMARY | 2024-09-25 12:19 | XMS_ITS | Encounter Summary ---
Author Organization [facility] Facility Care Team Providers Care Director Enterprise Data Architecture Name Role Phone Unavailable Primary Care Provider Unavailabl e Encounter Details Date Type Department Care Team (Latest Contact Info) Description 08/21/2010 9:40 AM MOLASSES FEED MIXER - 08/21/2010 12:22 PM [facility] Hospital [facility] [address] [facility] [address] [place] [address] Other current maternal conditions classifiable elsewhere, antepartum; Dizziness and giddiness; Generalized hyperhidrosis; Nausea without vomiting Social History Tobacco Use Types Packs/Day Years Used Date Smoking Tobacco: Never Assessed Comments Unknown Sex and Gender Information Value Date Recorded Sex Assigned at Not on file Legal Sex Female 1:00 AM MOLASSES FEED MIXER Gender Identity Not on file Sexual Orientation Not on file documented as of this encounter Plan of Treatment Not on file documented as of this encounter Visit Diagnoses Diagnosis Other current maternal conditions classifiable elsewhere, antepartum Dizziness and giddiness Generalized hyperhidrosis Nausea without vomiting documented in this encounter
--- OUTSIDE RECORDS SUMMARY | 2024-09-25 12:19 | XMS_ITS | Encounter Summary ---
Author Organization [facility] Facility Care Team Providers Care Inker Machine Name Role Phone Unavailable Primary Care Provider Unavailabl e Encounter Details Date Type Department Care Team (Late st Contact Info) Description 07/16/2010 9:52 AM RESEARCH EPIDEMIOLOGIST - 07/16/2010 4:00 PM RESEARCH EPIDEMIOLOGIST Hospital Encounter [facility] Isaiah Hull MD [address] [phone] [place] [address] Gynecology Other specified screening; Screening examination for sexually transmitted disease; Special screening examination for other specified chlamydial diseases; Special screening examination for other specified viral diseases; Screening examination for rubella Social History Tobacco Use Types Packs/Day Years Used Date Smoking Tobacco: Never Assessed Comments Unknown Sex and Gender Information Value Date Recorded Sex Assigned at Not on file Legal Sex Female 1:00 AM RESEARCH EPIDEMIOLOGIST Gender Identity Not on file Sexual Orientation Not on file documented as of this encounter Plan of Treatment Not on file documented as of this encounter Visit Diagnoses Diagnosis Other specified screening Screening examination for sexually transmitted disease Special screening examination for other specified chlamydial diseases Special screening examination for other specified viral diseases Screening examination for rubella documented in this encounter
--- OUTSIDE RECORDS SUMMARY | 2024-09-25 12:26 | XMS_ITS | Continuity of Care Document ---
Author Organization [facility] Address [address] [place] [address] Phone Care Team Providers Care Test Engineering Manager Name Role Phone Unavailable Unavailable Unavailable Procedures Procedure Date Extraction erupted tooth or exposed root Limit Oral Evaluation- problem focused J Periapical Radiographic, first Image Feb Advance Directives Directive Yes / No Effective Date File Name No Information Encounters Encounter Description Practice Location Reason(s) For Visit Diagnoses Date Provider Providers Copied on Encounter [facility] , [address], [place], [place], [id number], tel:[phone] [facility] Dental caries on pit and fissure surface penetrat into pulp No Information Referring Provider: Ervin Clayton, [address], [place], [address]. tel:[phone] Family History Family Member Type Diagnosis Age At Onset No Information Payers Payer name Insurance type Covered green party ID Authoriza tion(s) No Information Social History [...]
--- OUTSIDE RECORDS SUMMARY | 2024-09-25 20:04 | XMS_ITS | Encounter Summary ---
Author Organization [facility] Address [address] [place] [address] Care Team Providers Care Pulping Machine Operator Name Role Phone Rachel Citlaly GUZMAN Primary Care Provider [phone] Miller Zamora MD Unavailable [phone] Darryl Starr DO Unavailable Reason for Visit * Reason Onset Date Comments MEDICATION REFILL 12/22/2021 Encounter Details Date Type Department Care Team (Late st Contact Info) Description 12/22/2021 Refill [facility] - Family Medicine [address] [place], [place] [id number] Citlaly Ramos DO [address] [facility] [address] [place] [address] MEDICATION REFILL Social History Tobacco [...] disorder documented in this encounter Care Teams Pulping Machine Operator Relationship Specialty Start Date End Date Citlaly Ramos DO [address] [facility] [place] [address] PCP - General Family Medicine 02/21/21 Miller Zamora MD [address] [place] [phone] Urology 02/21/21 Darryl Starr DO [address] [facility] [place] [id number] Obstetrics and Gynecology 07/04/21 documented as of this encounter
--- OUTSIDE RECORDS SUMMARY | 2024-09-25 20:04 | XMS_ITS | Referral Summary ---
Author Organization [facility] Address [address] [facility] [place] [address] Care Team Providers Care Quality Assurance Project Manager Name Role Phone TheresaAnkita modiron GUZMAN Primary Care Provider Miller Zamora MD Unavailable [phone] Darryl Starr DO Unavailable Source Comments [facility],non-owned Affiliates and Associated Physician Practices is amultiple site organization consisting of ambulatory clinics and hospital sitesin [place], [place], [place] and [place]. This disclosure is being madepursuant to the Care Everywhere program and may not contain all information available regarding this patient. Last updated 18.[facility] Allergies Active Allergy Reactions Criticality Noted Date [...] Comments Blood Pressure 128/84 09/24/2021 2:07 PM NATIONAL ACCOUNT REPRESENTATIVE Pulse 93 09/24/2021 2:07 PM NATIONAL ACCOUNT REPRESENTATIVE Temperature 37.2 ??C (98.9 ??F) 09/24/2021 2:07 PM CS T Respiratory Rate 18 09/24/2021 2:07 PM NATIONAL ACCOUNT REPRESENTATIVE Oxygen Saturation 99% 09/24/2021 2:07 PM NATIONAL ACCOUNT REPRESENTATIVE Inhaled Oxygen Concentration 98% 11/25/2020 4 :20 PM CDT Weight 86.2 kg (190 lb) 09/24/2021 2:07 PM NATIONAL ACCOUNT REPRESENTATIVE Height 162.6 cm (5' 4 ) 09/24/2021 2:07 PM NATIONAL ACCOUNT REPRESENTATIVE Body Mass Index 32.61 09/24/2021 2:07 PM NATIONAL ACCOUNT REPRESENTATIVE Functional Status Functional Status Response Date of [...] on file Medical Devices Implanted Type Area Glass Blowing Instructor Device Identifier Shelf Expiration Date Model / Serial / Lot Stent Uret 6fr 24cm Pgtl Crv Tpr Tip - [id number] Implanted:Qty: 1 on 01/14/2021 by Miller Zamora MD at [facility] Stent Right: Ureter [employer] 09/19/2023 [id number] / [id number] / [id number] Stent Uret 6fr 24cm 2 Drmtr Bldr Loop Implanted:Qty: 1 on 11/25/2020 by Miller Zamora MD at [facility] Right: Ureter [employer]imed 01/08/2023 [id number] / / Procedures Procedure Name Priority [...] (endocervical component) are present. Clinician Provided ICD10 [facility] INSURANCE BILL Comment: Z01.419 N20.0 N76.1 Performed by [facility] INSURANCE BILL Comment:Libby montgomery, Support Associate (ASCP) Comment . [facility] INSURANCE BILL Note [facility] INSURANCE BILL Comment: The Pap smear is a screening test designed to aid in the detection of premalignant and malignant conditions of the uterine cervix. ??It is not a diagnostic procedure and should not be used as the sole means of detecting cervical cancer. ??Both false-positive and false-negative reports do occur. ? . IGLBP CPT Code Automation [facility] INSURANCE BILL Comment: This liquid based ThinPrep(R) pap test was screened with the use of an image guided system. Note [facility] INSURANCE BILL Comment: The HPV DNA reflex criteria were not met with this specimen result therefore, no HPV testing was performed. ? . Pathology/Cytolog y PART OF UTERINE CERVIX / Unknown 07/01/2021 4:04 PM CDT 07/02/2021 Narrative [facility] INSURANCE BILL - 07/03/2021 5:08 PM CDT No. of containers..01 ThinPrep Vial Resulting Agency Comment Lab Testing performed at: [facility] [address] ??[place] VAZQUEZ [id number] Darryl Starr DO LAB - PATHOLOGY/CYTO LOGY ORDERABLES [facility] INSURANCE BILL [address] [place] [address] from Last 3 Months or Most Recently Relevant to Health Maintenance Advance Directives * Full Code (Latest Code Status on File) Date Activated Date Inactivated Comments 10/20/2015 9:32 AM 10/20/2015 9:32 AM Care Teams Quality Assurance Project Manager Relationship Specialty Start Date End Date Citlaly Ramos DO [address] [facility] [place] [phone] PCP - General Family Medicine 02/21/21 Miller Zamora MD [address] [place] [phone] Urology 02/21/21 Darryl Starr DO [address] [place] [phone] Obstetrics and Gynecology 07/04/21
--- OUTSIDE RECORDS SUMMARY | 2024-09-25 20:04 | XMS_ITS | Encounter Summary ---
Author Organization [facility] Address [address] [facility] [place] [address] Care Team Providers Care Neurology Teacher Name Role Phone Citlaly Ramos DO Primary Care Provider [phone] Miller Zamora MD Unavailable [phone] Darryl Starr DO Unavailable Reason for Visit * Reason Onset Date Comments Erroneous encounter-disregard 09/27/2021 Encounter Details Date Type Department Care Team (Late st Contact Info) Description 09/27/2021 Telephone [facility] - Family Medicine [address] [place] [address] Citlaly Ramos DO [address] [facility] [address] [place] [address] Erroneous encounter-disregard Social History Tobacco [...] on filedocumented in this encounter Care Teams Neurology Teacher Relationship Specialty Start Date End Date Citlaly Ramos DO [address] [facility] [address] PCP - General Family Medicine 02/21/21 Miller Zamora MD [address] [place] [phone] Urology 02/21/21 Darryl Starr DO [address] [facility] [place] [phone] Obstetrics and Gynecology 07/04/21 documented as of this encounter
--- OUTSIDE RECORDS SUMMARY | 2024-09-25 20:04 | XMS_ITS | Encounter Summary ---
Author Organization [facility] Address [address] [place] [address] Care Team Providers Care Group Marketing Vp Name Role Phone TierraCitlaly avalos Primary Care Provider [phone] Miller Zamora MD Unavailable [phone] Darryl Starr DO Unavailable Reason for Visit * Reason Comments Refill Request Encounter Details Date Type Department Care Team (Late st Contact Info) Description 01/06/2023 Refill [facility] - COMMUNICATIONS FIELD TECHNICIAN [address] [place] [address] Libby Rod APRN-PC ANALYST [address] [place] [address] Refill Request Social History Tobacco Use [...] on filedocumented in this encounter Care Teams Group Marketing Vp Relationship Specialty Start Date End Date Citlaly Ramos DO [address] [place] [phone] PCP - General Family Medicine 02/21/21 Miller Zamora MD [address] [phone] Urology 02/21/21 Darryl Starr DO [address] [place] [address] Obstetrics and Gynecology 07/04/21 documented as of this encounter
--- OUTSIDE RECORDS SUMMARY | 2024-09-25 20:04 | XMS_ITS | Patient Health Summary ---
Author Organization [facility] Address [address] [place] [address] Care Team Providers Care Hide Handler Name Role Phone TheresaAnkita modiron GUZMAN Primary Care Provider [phone] Miller Zamora MD Unavailable [phone] Darryl Starr DO Unavailable Note from [facility],non-owned Affiliates and Associated Physician Practices is amultiple site organization consisting of ambulatory clinics and hospital sitesin [place], [place], [place] and [place]. This disclosure is being madepursuant to the Care Everywhere program and may not contain all information available regarding this patient. Last updated 18.[facility] Allergies * Augmentin(Urticaria) -Medium Criticality * Hydrocodone(Rash) [...] Comments Blood Pressure 128/84 09/24/2021 2:07 PM CLAMMER Pulse 93 09/24/2021 2:07 PM CLAMMER Temperature 37.2 ??C (98.9 ??F) 09/24/2021 2:07 PM CS T Respiratory Rate 18 09/24/2021 2:07 PM CLAMMER Oxygen Saturation 99% 09/24/2021 2:07 PM CLAMMER Inhaled Oxygen Concentration 98% 11/25/2020 4 :20 PM CDT Weight 86.2 kg (190 lb) 09/24/2021 2:07 PM CLAMMER Height 162.6 cm (5' 4 ) 09/24/2021 2:07 PM CLAMMER Body Mass Index 32.61 09/24/2021 2:07 PM CLAMMER Medical Devices Implanted Type Area Coal Conveyor Operator Device Identifier Shelf Expiration Date Model / Serial / Lot Stent Uret 6fr 24cm Pgtl Crv Tpr Tip - [id number] Implanted:Qty: 1 on 01/14/2021 by Miller Zamora MD at [facility] Stent Right: Ureter [employer] 09/19/2023 [id number] / [id number] / [id number] Stent Uret 6fr 24cm 2 Drmtr Bldr Loop Implanted:Qty: 1 on 11/25/2020 by Miller Zamora MD at [facility] Right: Ureter [employer] 01/08/2023 [id number] / / Procedures * US RETROPERITONEAL [...] ANALYSIS QUANT(Performed 01/14/2021) Performed for Nephrolithiasis * NH CYSTO/URETERO/PYELOSCOPY W/LITHOTRIPSY(Performed 01/14/2021) Performed for Right nephrolithiasis [...] Nephrolithiasis * LARYNGEAL MASK AIRWAY(Performed 11/25/2020) * NH CYSTOURETHROSCOPY,URETER CATHETER(Performed 11/25/2020) Performed for Hematuria, unspecified [...] CAR(Performed 04/15/2014) Performed for Threatened labor ([facility]) * GLUCOSE - POINT OF CARE(Performed 04/03/2014) [...] QUALITATIVE - POINT OF CARE(Performed 09/04/2013) * [place] CYSTOURETHROSCOPY,URETER CATHETER Performed for Disorder Results * US KIDNEYS/BLADDER (RETROPERITONEAL COMPLETE) (09/24/2021 4:21 PM CLAMMER) Anatomical Region Laterality Modality Abdomen Ultrasound 09/24/2021 4:34 PM CLAMMER Narrative 09/24/2021 4:57 PM CLAMMER RENAL ULTRASOUND HISTORY: Horseshoe kidney and right [...] URINE QUAL POCT NOTIFICATION (09/24/2021 4:00 PM CLAMMER) Only the most recent of3 resultswithin the time period is included. Comment Notification Label Only - See Separate Report 09/24/2021 4:00 PM CLAMMER [facility] Urine URINE / Unknown 2:44 PM CLAMMER Nancy Fajardo MD LAB - URINALYSIS ORD ERABLES Performing Organization Address City/[facility]/ZIP Co de Phone Number [facility] [address] [place] [place] [phone] * (ABNORMAL) URINE MICROSCOPIC ONLY REFLEX TO CULTURE (09/24/2021 3:02 PM CLAMMER) Only the most recent of10 resultswithin the time period is included. Reflex Status Culture to follow 09/24/2021 3:11 PM CLAMMER [facility] RBC UA >100(A) None Seen, 0-2, 3-5 # /hpf 09/24/2021 3:11 PM CLAMMER [facility] WBC UA >100(A) None Seen, 0-5 # /hpf 09/24/2021 3:11 PM CLAMMER [facility] Bacteria UA Trace(A) None Seen 09/24/2021 3:11 PM CLAMMER [facility] Squamous Epithelial Cells 6-10(A) None Seen, 0-2, 3-5 /hpf 09/24/2021 3:11 PM CLAMMER [facility] Mucus UA 2+ /LPF 09/24/2021 3:11 PM CLAMMER [facility] Urine URINE SPECIMEN OBTAINED BY CLEAN CATCH PROCEDURE / Unknown Collection / Unknown 09/24/2021 3:02 PM CLAMMER 09/24/2021 3:06 PM CLAMMER Narrative [facility] - 09/24/2021 3:11 PM CLAMMER Nancy Fajardo MD LAB - URINALYSIS ORD ERABLES Performing Organization Address City/[facility]/ZIP Co de Phone Number [facility] [address] [place] [place] [phone] * (ABNORMAL) URINALYSIS REFLEX MICROSCOPIC REFLEX CULTURE (09/24/2021 3:02 PM CLAMMER) Only the most recent of23 resultswithin the time period is included. Color UA Yellow Straw, Yellow 09/24/2021 3:10 PM CLAMMER [facility] Clarity UA Cloudy(A) Clear 09/24/2021 3:10 PM CLAMMER [facility] Glucose UA Negative Negative 09/24/2021 3:10 PM CLAMMER [facility] Bilirubin UA Negative Negative 09/24/2021 3:10 PM CLAMMER [facility] Ketone UA Negative Negative 09/24/2021 3:10 PM CLAMMER [facility] Specific [place] UA 1.020 1.005 - 1.030 09/24/2021 3:10 PM CLAMMER [facility] Blood UA 3+(A) Negative 09/24/2021 3:[address] [facility] pH UA 6.0 5.0 - 8.0 pH 09/24/2021 3:10 PM CLAMMER [facility] Protein UA 2+(A) Negative 09/24/2021 3:[address] [facility] Urobilinogen UA Negative Negative mg/dL 09/24/2021 3:10 PM CLAMMER [facility] Nitrite UA Negative Negative 09/24/2021 3:10 PM CLAMMER [facility] Leukocyte UA 3+(A) Negative 09/24/2021 3:[address] [facility] Urine Microscopy Urine microscopy to follow 09/24/2021 3:[address] [facility] Reflex Status Culture to follow 09/24/2021 3:[address] [facility] Urine URINE SPECIMEN OBTAINED BY CLEAN CATCH PROCEDURE / Unknown Collection / Unknown 09/24/2021 3:02 PM CLAMMER 09/24/2021 3:06 PM CLAMMER Narrative [facility] - 09/24/2021 3:10 PM CLAMMER Nancy Fajardo MD LAB - URINALYSIS ORD ERABLES [facility] [address] [place] [address] * CULTURE URINE (09/24/2021 3:02 PM CLAMMER) Only the most recent of20 resultswithin the time period is included. Culture Urine >100,000 CFU/mL urogenital marco CHRYSTAL 09/26/2021 10:26 AM CLAMMER [facility] Urine URINE SPECIMEN OBTAINED BY CLEAN CATCH PROCEDURE / Unknown Collection / Unknown 09/24/2021 3:02 PM CLAMMER 09/24/2021 3:06 PM CLAMMER Nancy Fajardo MD LAB - MICROBIOLOGY O RDERABLES Performing Organization Address City/[facility]/ZIP Co de Phone Number [facility] [address] [phone] * HCG URINE QUALITATIVE - POCT (IP) INTERFACED (09/24/2021 3:01 PM CLAMMER) Only the most recent of3 resultswithin the time period is included. Pathologist [facility] HCG Qual Urine Negative Negative 09/24/2021 3:07 PM CLAMMER [facility] Urine URINE / Unknown 09/24/2021 3 :01 PM CLAMMER 09/24/2021 3:07 PM CLAMMER Nancy Fajardo MD LAB - POINT OF CARE ORDERABLES Performing Organization Address City/[facility]/ZIP Co de Phone Number [facility] [address] [place] [address] * (ABNORMAL) CBC W AUTO DIFFERENTIAL (09/24/2021 3:01 PM CLAMMER) Only the most recent of23 resultswithin the time period is included. WBC 7.4 4.4 - 10.7 x10E9/L 09/24/2021 3:08 PM CLAMMER [facility] WBC Corrected 09/24/2021 3:08 PM CLAMMER [facility] RBC 4.37 3.80 - 5.20 x10E12/L 09/24/2021 3:[address] [facility] Hemoglobin 10.7(L) 12.0 - 15.6 gm/dL 09/24/2021 3:[address] [facility] Hematocrit 34.3(L) 35.9 - 45.5 % 09/24/2021 3:08 PM CLAMMER [facility] MCV 78.5(L) 80.7 - 98.3 fl 09/24/2021 3:[address] [facility] MCH 24.5(L) 26.7 - 34.0 pg 09/24/2021 3:[address] [facility] MCHC 31.2 30.8 - 35.9 gm/dL 09/24/2021 3:[address] [facility] Platelet Count 436(H) 153 - 416 x10E9/L 09/24/2021 3:[address] [facility] RDW-CV 18.2(H) 12.1 - 14.9 % 09/24/2021 3:[address] [facility] MPV 9.2(L) 9.4 - 12.9 fl 09/24/2021 3:[address] [facility] Neutrophils % 55.3 44.0 - 73.0 % 09/24/2021 3:[address] [facility] Lymphocytes % 25.5 20.0 - 43.0 % 09/24/2021 3:[address] [facility] Monocytes % 10.3 5.0 - 13.0 % 09/24/2021 3:[address] [facility] Eosinophils % 7.6(H) 0.0 - 6.0 % 09/24/2021 3:[address] [facility] Basophils % 0.9 0.0 - 2.0 % 09/24/2021 3:[address] [facility] Immature Granulocytes 0.4 0 - 1 % 09/24/2021 3:[address] [facility] Neutrophil Absolute 4.08 2.01 - 7.14 x10E9/L 09/24/2021 3:[address] [facility] Lymphocytes Absolute 1.88 1.07 - 3.94 x10E9/L 09/24/2021 3:[address] [facility] Monocytes Absolute 0.76 0.26 - 1.07 x10E9/L 09/24/2021 3:[address] [facility] Eosinophils Absolute 0.56(H) 0 - 0.47 x10E9/L 09/24/2021 3:[address] [facility] Basophils Absolute 0.07 0 - 0.08 x10E9/L 09/24/2021 3:[address] [facility] Immature Granulocytes Absolute 0.03 0.00 - 0.06 x10E9/L 09/24/2021 3:[address] [facility] nRBC Auto 0 /100 WBC 09/24/2021 3:[address] [facility] Blood BLOOD SPECIMEN / Unknown Venipuncture / Unknown 09/24/2021 3:01 PM CLAMMER 09/24/2021 3:06 PM [facility] Nancy Fajardo MD LAB - HEMATOLOGY ORD ERABLES [facility] [address], [place] [id number] * (ABNORMAL) COMPREHENSIVE METABOLIC PANEL (09/24/2021 3:01 PM CLAMMER) Only the most recent of17 resultswithin the time period is included. Glucose 84 70 - 105 mg/dL 09/24/2021 3:[address] [facility] Sodium 137 136 - 145 mmol/L 09/24/2021 3:[address] [facility] Potassium 3.7 3.5 - 5.1 mmol/L 09/24/2021 3:[address] [facility] Chloride 107 98 - 107 mmol/L 09/24/2021 3:[address] [facility] CO2 24 23 - 31 mmol/L 09/24/2021 3:[address] [facility] Calcium 9.3 8.4 - 10.4 mg/dL 09/24/2021 3:[address] [facility] Anion Gap 6(L) 8 - 18 mmol/L 09/24/2021 3:[address] [facility] BUN 12 7 - 18.7 mg/dL 09/24/2021 3:[address] [facility] Creatinine 0.64 0.57 - 1.11 mg/dL 09/24/2021 3:[address] [facility] Alkaline Phosphatase 58 40 - 150 U/L 09/24/2021 3:[address] [facility] ALT 13 0 - 61 U/L 09/24/2021 3:[address] [facility] AST 16 5 - 34 U/L 09/24/2021 3:[address] [facility] Protein Total 7.2 6.4 - 8.3 gm/dL 09/24/2021 3:[address] [facility] Albumin 4.1 3.5 - 5.2 gm/dL 09/24/2021 3:23 PM CLAMMER [facility] Bilirubin Total 0.3 0.2 - 1.2 mg/dL 09/24/2021 3:23 PM CLAMMER [facility] eGFR by MDRD >60 >60 mL/min/1.7 3m2 09/24/2021 3:23 PM CLAMMER [facility] eGFR by MDRD >60 >60 mL/min/1.7 3m2 09/24/2021 3:23 PM CLAMMER [facility] Blood BLOOD SPECIMEN / Unknown Venipuncture / Unknown 09/24/2021 3:01 PM CLAMMER 09/24/2021 3:06 PM CLAMMER Nancy Fajardo MD LAB - CHEMISTRY JOANNA YUNG [facility] [address] [place] [address] * CHLAMYDIA + GC + TRICH DNA AMPL (08/08/2021 1:34 PM CLAMMER) Only the most recent of2 resultswithin the time period is included. Pathologist [facility] Chlamydia trachomatis JOSHUA Negative Negative [facility] INSURANCE BILL GC DNA Probe Negative Negative [facility] INSURANCE BILL Trichomonas vaginalis by JOSHUA Negative Negative [facility] INSURANCE BILL Microbiology URINE / Unknown 08/08/2021 1 :34 PM CLAMMER 08/08/2021 Narrative Resulting Agency Comment Lab Testing performed at: [address] ??[facility] [phone] Libby SAHU LAB - MICROBI OLOGY ORDERABLES [facility] INSURANCE BILL [address] [place] [address] * QUANTIFERON TB-GOLD (07/19/2021 10:43 AM CLAMMER) Pathologist [facility] QuantiFERON Incubation Incubation performed. [facility] INSURANCE BILL [...] immunoassay methodology FASTING 07/19/2021 10:4 3 AM CLAMMER 07/19/2021 Narrative Resulting Agency Comment Lab Testing performed at: [employer] [place] [address] ??[facility] [phone] Alina Harvey HUNTING SALES ASSOCIATE-ASSEMBLER BODY LAB - CHEM ISTRY ORDERABLES [facility] INSURANCE BILL [address] [place] [address] * (ABNORMAL) VAGINITIS PLUS (BV CA CT [...] developed and its performance characteristics determined by [employer]. ??It has not been cleared or approved [...] BILL - 07/04/2021 11:06 PM CDT Test(s) 347690-Kxirmed albicans, JOSHUA; 131844-Utnhiyr glabrata, JOSHUA was developed and its performance characteristics determined by [employer]. It has not been cleared or approved by the Food and Drug Administration. Resulting Agency Comment Lab Testing performed at: [employer] ??[place] [phone] Darryl Starr DO LAB - MICROBIOLOGY O RDERABLES [facility] INSURANCE BILL [address] [place] [address] * PAP IG LB RFLX HPV APTIMA ASCU (07/01/2021 4:04 PM CDT) Diagnosis [facility] INSURANCE BILL Comment: NEGATIVE FOR INTRAEPITHELIAL LESION OR MALIGNANCY. TRICHOMONAS VAGINALIS IS PRESENT. Specimen Adequacy [facility] INSURANCE BILL Comment: Satisfactory for evaluation. ??Endocervical and/or squamous metaplastic cells (endocervical component) are present. Clinician Provided ICD10 [facility] INSURANCE BILL Comment: Z01.419 N20.0 N76.1 Performed by [facility] INSURANCE BILL Comment:Libby montgomery, Paperboard Boxes Estimator (ASCP) Comment . [facility] INSURANCE BILL Note [...] Resulting Agency Comment Lab Testing performed at: [employer] ??[place] [phone] Darryl Starr DO LAB - PATHOLOGY/CYTO LOGY ORDERABLES Performing Organization Address City/[facility]/ZIP Co de Phone Number [facility] INSURANCE BILL [address] [place] [address] * (ABNORMAL) IRON + TIBC PANEL (07/01/2021 [...] Resulting Agency Comment Lab Testing performed at: [employer] ??[facility] [phone] Citlaly Ramos DO LAB - CHEMISTRY ORDBoy YUNG Performing Organization Address City/[facility]/ZIP Co de Phone Number [facility] ACCOUNT BILL [address] [place] [address] * VITAMIN B12 FOLATE PANEL (07/01/2021 2:36 PM CDT) Pathologist [facility] Vitamin B12 587 213 - 816 pg/mL [facility] ACCOUNT BILL Folate 10.4 7.0 - 31.4 ng/mL [facility] ACCOUNT BILL Blood BLOOD SPECIMEN / Unknown 07/01/2021 2:36 PM CDT 07/01/2021 Narrative Resulting Agency Comment Lab Testing performed at: [facility] [address] ?? [facility] [phone] Citlaly Ramos DO LAB - CHEMISTRY ORDE AGA [facility] ACCOUNT BILL [address] [place] [address] * FERRITIN (07/01/2021 2:36 PM CDT) Pathologist [facility] Ferritin 8 5 - 204 ng/mL [facility] ACCOUNT BILL Blood BLOOD SPECIMEN / Unknown 07/01/2021 2:36 PM CDT 07/01/2021 Narrative Resulting Agency Comment Lab Testing performed at: [facility] [address] ?? [facility] [phone] Citlaly Ramos DO LAB - CHEMISTRY ORDE AGA [facility] ACCOUNT BILL [address] [place] [address] * (ABNORMAL) LIPID PROFILE REFLEX LDL DIRECT (02/21/2021 8:26 AM CDT) Pathologist [facility] Cholesterol 201(H) <200 mg/dL [facility] ACCOUNT BILL [...] Resulting Agency Comment Lab Testing performed at: [facility] [address] ?? [place] [phone] Citlaly Ramos DO LAB - CHEMISTRY ORDBoy YUNG Performing Organization Address [facility]/[place]UST Co de Phone Number [facility] ACCOUNT BILL [address] [place] [address] * (ABNORMAL) VITAMIN D 25-HYDROXY (02/21/2021 8:26 AM CDT) Pathologist [facility] Vitamin D, 25 Hydroxy 17.1(L) 30 - 100 ng/mL [facility] ACCOUNT BILL Comment: Vitamin D Status: ?Deficiency ? <20 ? ng/mL ?Insufficiency ?? 20-30 ??ng/mL ?Sufficiency ? 30-100 ng/mL ?Toxicity ? >100 ?ng/mL FASTING Blood BLOOD SPECIMEN / Unknown 02/21/2021 8:26 AM CDT 02/21/2021 Narrative Resulting Agency Comment Lab Testing performed at: [facility] [address] ?? [place] [phone] Citlaly Ramos DO LAB - CHEMISTRY ORDE RABFANNY Performing Organization Address City/[facility]/ZIP Co de Phone Number [facility] ACCOUNT BILL [address] [place] [address] * TSH (02/21/2021 8:26 AM CDT) Pathologist [facility] TSH 1.8822 0.35 - 4.94 uIU/mL [facility] ACCOUNT BILL Comment:FASTING Blood BLOOD SPECIMEN / Unknown 02/21/2021 8:26 AM CDT 02/21/2021 Narrative Resulting Agency Comment Lab Testing performed at: [facility] [address] ?? [place] [phone] Citlaly Ramos LAB - CHEMISTRY JOANNA YUNG [facility] ACCOUNT [place]RI[facility] [address] [place] [address] * PATHOLOGY TISSUE (01/14/2021 1:17 PM CDT) Case Report Surgical Pathology Report ? Case: [id number] ? Authorizing Provider: ??Miller Zamora MD ?Collected: ? 01/14/2021 01:17 PM ? Ordering Location: ? [facility] ?Received: ?01/14/2021 03:03 PM ? Pathologist: ? Tammy Brunson MD ? Specimen: ?Calculus, Right ureter calculus ? 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 01/21/2021 9:46 AM CDT [facility] Gross Description The requisition and specimen label(s) are identified with the patient's name, Jumana Rivers. Received fresh, specimen A , right ureter calculus are multiple shelby yellow-brown firm stones measuring 0.1-0.3 cm in greatest dimension. This specimen is for chemical examination only. 01/21/2021 9:46 AM CDT [facility] Disclaimer The performance characteristics of all immunohistochemical and indirect immunofluorescence stains (if any) cited in this report were determined by the Histopathology Laboratory of [facility]. Some of these tests were developed [...] attending (teaching) pathologist. 01/21/2021 9:46 AM CDT [facility] Embedded Images 01/21/2021 9:46 AM CDT [facility] Gross only CALCULUS SPECIMEN / Unknown 01/14/2021 1:17 PM CDT 01/14/2021 3:03 PM CDT Comment:Pre-op diagnosis: Right nephrolithiasis Miller Zamora MD LAB - PATHOLOGY/ TOBI ORDERABLES [facility] [address] [place] [address], [facility] [phone] * STONE ANALYSIS QUANT (01/14/2021 1:17 PM CDT) Calculi Composition See Note 01/28/2021 3:57 PM CDT [employer] ([facility]) Comment: Calculi composed primarily of: 70% calcium [...] composition determined by FTIR analysis. Performed By: [employer] [address] [place] [address] Sterilization Specialist: Marisol Velázquez MD Calculi Mass 25 mg 01/28/2021 3:57 PM CDT [employer] ([facility]) Calculi Number 4 01/28/2021 3:57 PM CDT [employer] ([facility]) Calculi Size Various mm 01/28/2021 3:57 PM CDT [employer] ([facility]) Calculi Description See Note 01/28/2021 3:57 PM CDT [employer] ([facility]) Comment: Specimen consists of four, various sized (1 mm to 9 mm), shelby/white, irregular calculi fragments. Pathology/Cytolo gy CALCULUS SPECIMEN / Unknown Collection / Unknown 01/14/2021 1:17 PM CDT 01/25/2021 10:18 AM CDT Miller Zamora MD LAB - URINE CHEMIS TRY ORDERABLES [facility] [employer] [facility]) [address] * LARYNGEAL MASK AIRWAY (01/14/2021 12:24 [...] Yellow Straw, Yellow, Colorless 01/14/2021 10:05 AM [facility] Clarity UA Cloudy(A) Clear, t Cloudy 01/14/2021 10:05 AM [facility] Specific [place] UA 1.023 1.005 - 1.030 01/14/2021 10:05 AM [facility] pH UA 5.0 5.0 - 8.0 pH 01/14/2021 10:05 AM [facility] Protein UA 2+(A) Negative mg/dL 01/14/2021 10:05 AM [facility] Glucose UA Negative Negative mg/dL 01/14/2021 10:05 AM [facility] Ketone UA Negative Negative mg/dL 01/14/2021 10:05 AM [facility] Bilirubin UA Negative Negative mg/dL 01/14/2021 10:05 AM [facility] Blood UA 3+(A) Negative 01/14/2021 10:05 AM [facility] Nitrite UA Negative Negative 01/14/2021 10:05 AM [facility] Leukocyte Esterase 2+(A) Negative 01/14/2021 10:05 AM [facility] Urobilinogen UA Negative Negative mg/dL 01/14/2021 10:05 AM [facility] Urine URINE SPECIMEN OBTAINED BY CLEAN CATCH PROCEDURE / Unknown Collection / Unknown 01/14/2021 8:05 AM CDT 01/14/2021 9:53 AM [facility] - 01/14/2021 10:05 AM CDT Paras Han MD LAB - URINALYSIS ORD ERABLES [facility] [address] [place] [address], [facility] [phone] * SARS-COV-2 (COVID-19) PRE-SURICAL/PROCEDURE (01/12/2021 2:06 PM CDT) COVID-19 PCR Not detected Not detected 01/12/2021 9:23 PM CDT [facility] Microbiology SPECIMEN FROM NASOPHARYNGEAL STRUCTURE / Unknown Collection / Unknown 01/12/2021 2:06 PM CDT 01/12/2021 2:26 PM CDT Narrative [facility] - 01/12/2021 9:23 PM CDT This nucleic acid amplification assay performance was validated by [facility]. This test has been [...] Miller Zamora MD LAB - MICROBIOLOGY ORDERABLES [facility] [address] [place] [address], [facility] [phone] * (ABNORMAL) CBC W/O DIFFERENTIAL (12/31/2020 12:46 PM CDT) WBC 7.3 3.5 - 10.5 10? 3 /uL 12/31/2020 1:45 PM [facility] RBC 4.37 3.90 - 5.00 10? 6 /uL 12/31/2020 1:45 PM [facility] Hemoglobin 11.4(L) 12.0 - 15.5 g/dL 12/31/2020 1:45 PM [facility] Hematocrit 35.0 35.0 - 45.0 % 12/31/2020 1:45 PM [facility] MCV 80.1(L) 81.0 - 97.0 fL 12/31/2020 1:45 PM [facility] MCH 26.1(L) 28.0 - 34.0 pg 12/31/2020 1:45 PM [facility] MCHC 32.6 32.0 - 36.0 g/dL 12/31/2020 1:45 PM [facility] [facility] Platelet Count 327 150 - 400 10? 3 /uL 12/31/2020 1:45 PM [facility] RDW-SD 47.9 36.0 - 50.0 fL 12/31/2020 1:45 PM [facility] RDW-CV 16.6(H) 11.2 - 14.8 % 12/31/2020 1:45 PM [facility] MPV 9.7 9.3 - 12.8 fL 12/31/2020 1:45 PM [facility] nRBC Absolute 0.00 0 10? 3 /uL 12/31/2020 1:45 PM [facility] nRBC Auto 0.0 0 /100 WBC 12/31/2020 1:45 PM [facility] Blood BLOOD SPECIMEN / Unknown Lab Venipuncture / Unknown 12/31/2020 12:46 PM CDT 12/31/2020 1:28 PM T Parish Taylor HUNTING SALES ASSOCIATE-ASSEMBLER BODY LAB - HEMATOL OGY ORDERABLES [facility] [address] [place] [address], [facility] [phone] * BASIC METABOLIC PANEL (CALCIUM TOTAL) (12/31/2020 12:46 PM CDT) Only the most recent of6 resultswithin the time period is included. BUN 8 7 - 26 mg/dL 12/31/2020 2:05 PM [facility] Creatinine 0.7 0.6 - 1.2 mg/dL 12/31/2020 2:05 PM [facility] Sodium 138 136 - 145 mmol/L 12/31/2020 2:05 PM [facility] Potassium 3.8 3.5 - 4.5 mmol/L 12/31/2020 2:05 PM [facility] Chloride 106 98 - 107 mmol/L 12/31/2020 2:05 PM [facility] CO2 24 22 - 29 mmol/L 12/31/2020 2:05 PM [facility] Glucose 78 70 - 115 mg/dL 12/31/2020 2:05 PM [facility] Calcium 8.5 8.4 - 10.2 mg/dL 12/31/2020 2:05 PM [facility] Anion Gap 12 8 - 18 12/31/2020 2:05 PM [facility] BUN/Creatinine Ratio 11 7 - 23 12/31/2020 2:05 PM [facility] Osmolality Calculated 283 270 - 300 mOsm/kg 12/31/2020 2:05 PM [facility] eGFR >60 >60 mL/min/1.7 3 m2 12/31/2020 2:05 PM [facility] Blood BLOOD SPECIMEN / Unknown Lab Venipuncture / Unknown 12/31/2020 12:46 PM CDT 12/31/2020 1:28 PM CDT Parish Taylor APRN-RIKKI LAB - DRUM PULLER RY ORDERABLES [facility] [address] [place] [address], [facility] [phone] * (ABNORMAL) URINALYSIS W/MICROSCOPIC NO CULTURE (12/28/2020 11:28 AM CDT) Only the most recent of2 resultswithin the time period is included. Color UA DARK YELLOW YELLOW [facility] Appearance CLOUDY(A) CLEAR [facility] Specific [place] UA 1.029 1.001 - 1.035 [facility] pH [...] MUCOUS THREADS [facility] Comment: Test Performed at: [facility] [address] [place], [place] ??[address] MITA SEGURA DO,MPH 12/28/2020 11:2 8 AM CDT 12/28/2020 11:40 AM CDT Miller Zamora MD LAB - URINALYSIS O RDERABLES Performing Organization Address [facility]/[place] Co de Phone Number [facility] [address] [place] [address] * FL CYSTO SURGERY (11/26/2020 3:55 PM CDT) Narrative [facility] - 11/30/2020 9:41 PM CDT Fluoroscopy was used for this exam in the OR. Please see the Operative report. Miller Zamora MD FLUOROSCOPY ORDERA BLES Performing Organization Address [facility]/ZIP Co de Phone Number [facility] * LARYNGEAL [place] (11/25/2020 3:32 [...] A+B PCR RAPID (11/24/2020 6:22 AM CDT) [facility] Signature COVID-19 PCR Not detected Not detected 11/25/19 7:00 AM CDT [facility] Influenza A Rapid JOSHUA Not Detected Not Detected 11/24/2020 7:00 AM T [facility] Influenza B JOSHUA Rapid Not Detected Not Detected 11/24/2020 7:00 AM T [facility] Microbiology SPECIMEN FROM NASOPHARYNGEAL STRUCTURE / Unknown Collection / Unknown 11/24/2020 6:22 AM CDT 11/24/2020 6:32 AM CDT [facility] - 11/24/2020 7:00 AM CDT Influenza assay [...] acid amplification assay performance was validated by [facility]. This test has been authorized by the [...] Sanchez PA-C LAB - MICR OBIOLOGY ORDERABLES [address] [address], [facility] [phone] * HCG URINE QUALITATIVE (11/24/2020 6:09 AM CDT) Only the most recent of2 resultswithin the time period is included. Test Urine Negative Negative 11/24/2020 6:33 AM CDT [facility] Urine URINE / Unknown Collection / Unknown 11/24/2020 6:09 AM CDT 11/24/2020 6:13 AM CDT Bal Sanchez PA-C LAB - URIN ALYSIS ORDERABLES Performing Organization Address [facility]/[place] Co de Phone Number [address] [address], [facility] [phone] * D-DIMER (03/15/2019 10:34 AM CDT) Only the most recent of2 resultswithin the time period is included. D-Dimer 0.46 0.17 - 0.5 mg/L FEU 03/15/2019 10:51 AM CDT [facility] Blood BLOOD SPECIMEN / Unknown Venipuncture / Unknown 03/15/2019 10:34 AM CDT 03/15/2019 10:40 AM CDT Narrative [facility] - 03/15/2019 10:51 AM CDT The [...] clinical presentation, and other findings. Alina Sevilla HUNTING SALES ASSOCIATE-ASSEMBLER BODY LAB - COAGUL ATION ORDERABLES Performing Organization Address City/State/[place] Co de Phone Number [facility] [address] [phone] * CARDIAC EKG ORDER (02/03/2019 5:24 PM [...] <0.010 <0.038 ng/mL 02/02/2019 6:47 PM CDT [facility] Blood BLOOD SPECIMEN / Unknown Venipuncture / Unknown 02/02/2019 6:10 PM CDT 02/02/2019 6:23 PM CDT Narrative [facility] - 02/02/2019 6:47 PM CDT Note: [...] Hagan DO LAB - CHEMISTRY JOANNA YUNG [facility] Organization Address City/State/ZIP Co de Phone Number [facility] [address] [place] [address] * XR CHEST PA AND LATERAL (02/02/2019 [...] BPM [facility] MUSE Atrial Rate 87 BPM [facility] MUSE P-R Interval 140 ms [facility] MUSE QRS Duration ms 74 ms [facility] MUSE Q-T Interval ms 354 ms [facility] MUSE QTC Calculation (Bezet) 425 ms [facility] MUSE Calculated P [place] 63 degrees HC MUSE Calculated R [place] 35 degrees [facility] MUSE Calculated T [place] 30 degrees [facility] MUSE Interpretation EKG NORMAL SINUS RHYTHM NORMAL ECG WHEN COMPARED WITH ECG OF 08-MAR-2016 17:44, NO SIGNIFICANT CHANGE WAS FOUND Confirmed by MD JESS, NUSRAT Guillaume ([id number]) on 02/03/2019 7:15:49 AM [facility] MUSE 02/02/2019 3:13 PM CDT 02/03/2019 7:15 AM CDT Karen M Bentley DO ECG ORDERABLES [facility] MUSE * (ABNORMAL) URINALYSIS REFLEX TO MICROSCOPIC NO CULTURE (12/29/2017 11:16 AM CDT) Color UA Straw Straw, Yellow 12/29/2017 11:28 AM [facility] Clarity UA Clear Clear 12/29/2017 11:28 AM [facility] Glucose UA Negative Negative 12/29/2017 11:28 AM [facility] Bilirubin UA Negative Negative 12/29/2017 11:28 AM [facility] Ketone UA Negative Negative 12/29/2017 11:28 AM [facility] Specific [place] UA 1.050(H) 1.005 - 1.030 12/29/2017 11:28 AM [facility] Blood UA 3+(A) Negative 12/29/2017 11:28 AM [facility] pH UA 8.0 5.0 - 8.0 pH 12/29/2017 11:28 AM [facility] Protein UA Negative Negative 12/29/2017 11:28 AM [facility] Urobilinogen UA Negative Negative mg/dL 12/29/2017 11:28 AM [facility] Nitrite UA Negative Negative 12/29/2017 11:28 AM [facility] Leukocyte UA Trace(A) Negative 12/29/2017 11:28 AM [facility] Urine Microscopy Urine microscopy to follow 12/29/2017 11:28 AM [facility] Urine URINE SPECIMEN OBTAINED BY CLEAN CATCH PROCEDURE / Unknown Collection / Unknown 12/29/2017 11:16 AM CDT 12/29/2017 11:18 AM CDT Narrative [facility] - 12/29/2017 11:28 AM CDT Lalo Frausto MD LAB - URINALYSIS ORD ERABLES Performing Organization Address [facility]/[place] Co de Phone Number [facility] [address] [place] [address] * URINE MICROSCOPIC ONLY (12/29/2017 11:16 AM CDT) RBC UA 0-5 0-5, None Seen # /hpf 12/29/2017 11:28 AM CDT [facility] WBC UA 0-5 0-5, None Seen # /hpf 12/29/2017 11:28 AM CDT [facility] Bacteria UA None Seen None Seen 12/29/2017 11:28 AM CDT [facility] Squamous Epithelial Cells 3-5 None Seen, [...] - URINALYSIS ORD ERABLES Performing Organization Address [facility]/[place] Co de Phone Number [facility] [address] [place] [address] * CT ABDOMEN AND PELVIS WITH IV [...] <1 mIU/mL 12/30/19 18 9:30 AM CDT [facility] Blood BLOOD [...] - CHEMISTRY JOANNA YUNG Performing Organization Address [facility]/State/ZIP Co de Phone Number [facility] [address] [place] [address] * HCG URINE QUALITATIVE - POINT OF CARE (IP) (11/27/2017 6:24 PM CDT) Only the most recent of18 resultswithin the time period is included. HCG Qual Urine Negative Negative [facility] POCT TESTING QC Verified Yes Yes [facility] POC T TESTING Urine URINE / Unknown 11/27/2017 6 :24 PM CDT Regino Silvestre MD LAB - POINT OF CARE ORDERABLES [facility] POCT TESTING [address] [phone] * XR ABDOMEN 1 VW (12/15/2016 12:25 [...] Test Negative Negative 12/15/2016 12:30 PM CDT [facility] Microbiology ENTIRE VAGINA / Unknown 12/15/2016 12:15 PM CDT 12/15/2016 12:17 PM CDT Lucas Mariscal PA-C LAB - MICR OBIOLOGY ORDERABLES [facility] [address] [place] [address] * CHLAMYDIA + GC AMPLIFIED PROBE (12/15/2016 12:15 PM CDT) Only the most recent of6 resultswithin the time period is included. Chlamydia Amplified Probe Negative Negative 12/16/2016 9:02 AM CDT [facility] GC Amplified Probe Negative Negative 12/16/2016 9:02 AM CDT [facility] Microbiology ENTIRE ENDOCERVIX / Unknown 12/15/2016 12:15 PM CDT 12/15/2016 12:17 PM CDT Narrative [facility] - 12/16/2016 9:02 AM CDT Results based on detection/no detection of ribosomal RNA by amplified method. Lucas Mariscal PA-C LAB - MICR OBIOLOGY ORDERABLES [facility] [address] [phone] * CT RENAL STONE PROTOCOL (NO IV AND NO ORAL CONTRAST) (10/10/2016 11:05 AM CLAMMER) Only the most recent of3 resultswithin the time period is included. Anatomical Region Laterality Modality Abdomen, Pelvis Computed Tomogra phy 10/10/2016 11:1 4 AM CLAMMER Impressions 10/10/2016 11:20 AM CLAMMER IUD in uterine cavity. Negative for mass or fluid collection. Horseshoe kidney with nonobstructing calculi. Narrative 10/10/2016 11:[address] abdomen pelvis. HISTORY: Abdominal pain, UTI, [...] 64.0 <300.0 pg/mL 03/08/2016 5:50 PM CDT [facility] Blood BLOOD SPECIMEN / Unknown 03/08/2016 5:22 PM CDT 03/08/2016 5:28 PM CDT Narrative [facility] - 03/08/2016 5:50 PM CDT NT-proBNP [...] Mariscal MD LAB - CHEMISTRY JOANNA YUNG [facility] [address] [place] [address] * LIPASE BLOOD (10/11/2015 3:20 PM CLAMMER) [facility] Lipase 151 10 - 220 U/L 10/11/2015 8:21 PM CLAMMER [facility] Blood BLOOD SPECIMEN / Unknown Venipuncture / Unknown 10/11/2015 3:20 PM CLAMMER 10/11/2015 8:06 PM CLAMMER Clarke Morris MD LAB - CHEMISTRY JOANNA YUNG Performing Organization Address [facility]/[place] Co de Phone Number [facility] [address] [place] [address] * XR KNEE 4+ VW RIGHT (04/17/2015 [...] of2 resultswithin the time period is included. [facility] Strep A Rapid Negative Negative 04/13/2015 1:24 PM CDT [facility] Microbiology ENTIRE THROAT (SURFACE REGION OF NECK) / Unknown 04/13/2015 1:11 PM CDT 04/13/2015 1:14 PM CDT Narrative [facility] - 04/13/2015 1:24 PM CDT Test has reflexed to a Strep A culture. Criss Mrach [facility] LAB - MICROBIOLOGY ORDERABLES Performing Organization Address [facility]/[place] Co de Phone Number [facility] [address] [place] [place] [address] * CULTURE STREP GROUP A (04/13/2015 1:11 PM CDT) Pathologist [facility] Culture Negative for Beta Hemolytic Streptococcus Group A CHRYSTAL 04/15/2015 3:45 AM CDT [facility] Microbiology ENTIRE THROAT (SURFACE REGION OF NECK) / Unknown 04/13/2015 1:11 PM CDT 04/13/2015 1:14 PM CDT Criss March [facility] LAB - MICROBIOLOGY ORDERABLES Performing Organization Address [facility] de Phone Number [facility] [address] [place] [phone] * MONONUCLEOSIS SCREEN (11/04/2014 9:24 PM CLAMMER) Pathologist [facility] Mononucleosis Screen Negative Negative 11/04/2014 9:50 PM CLAMMER [facility] Blood BLOOD SPECIMEN / Unknown 11/04/2014 9:24 PM CLAMMER 11/04/2014 9:27 PM CLAMMER Catherine Dubose [facility] LAB - CHEMISTRY ORDERABLES Performing Organization Address [facility] de Phone Number [facility] [address] [place] [place] [address] * GLUCOSE PROTEIN KETONE URINE - POINT [...] OF C ARE ORDERABLES Performing Organization Address [facility]/[place] Co de Phone Number [facility] POCT TESTING [address] [place] [address] * (ABNORMAL) GLUCOSE - POINT OF CARE (04/03/2014 10:33 PM CDT) Glucose WB/POC 153(H) 70 - 106 mg/dL 04/04/2014 2:12 AM CDT [facility] Blood BLOOD SPECIMEN / Unknown 04/03/2014 10:33 PM CDT 04/04/2014 2:12 AM CDT Sahra Flowers MD LAB - POINT OF CARE ORDERABLES Performing Organization Address [facility]/[place] Co de Phone Number [facility] [address] [place] [address] * LAB HISTORICAL RESULTS-ONBASE (04/03/2014) 04/03/[address] [facility] - 04/05/2014 8:32 AM CDT Historical Provider LAB - CHEMISTRY O RDERABLES Performing Organization Address [facility]/[place] Co de Phone Number [facility] [address] * BLOOD TYPE ABO+ RH PANEL (03/07/2014 3:56 PM CDT) ABO O 03/07/2014 4:30 PM CDT [facility] Rh Type Positive 03/07/2014 4:30 PM CDT [facility] Comment:History check perfor med. Retype required. Miscellaneous samples (specimen) BLOOD SPECIMEN / Unknown Venipuncture / Unknown 03/07/2014 3:56 PM CDT 03/07/2014 4:04 PM CDT Criss March HUNTING SALES ASSOCIATE-ASSEMBLER BODY LAB - BLOOD BANK O RDERABLES [facility] * US OB LESS14 [...] hemorrhage. Violetta Flaherty MD ORDERABLES Care Teams Hide Handler Relationship Specialty Start Date End Date Citlaly Ramos [facility] [place] [address] PCP - General Family Medicine 02/21/21 Miller Zamora MD [address] [place] [address] Urology 02/21/21 [place] [address] [place], [place] [address] [id number] Obstetrics and Gynecology 07/04/21
--- OUTSIDE RECORDS SUMMARY | 2024-09-25 20:04 | XMS_ITS | Encounter Summary ---
Author Organization [facility] Address [address] [address] Care Team Providers Care Securities Counselor Name Role Phone Rachel Citlaly GUZMAN Primary Care Provider [phone] Miller Zamora MD Unavailable [phone] Darryl Starr DO Unavailable Reason for Visit * Reason Onset Date Comments MEDICATION REFILL 12/22/2021 Encounter Details Date Type Department Care Team (Late st Contact Info) Description 12/22/2021 Refill [facility] - Family Medicine [address] [place], [place] [id number] Citlaly Ramos DO [address] [facility] [address] [place] [address] MEDICATION REFILL Social History Tobacco [...] disorder documented in this encounter Care Teams Securities Counselor Relationship Specialty Start Date End Date Citlaly Ramos DO [address] [facility] [place] [address] PCP - General Family Medicine 02/21/21 Miller Zamora MD [address] [place] [phone] Urology 02/21/21 Darryl Starr DO [address] [facility] [place] [id number] Obstetrics and Gynecology 07/04/21 documented as of this encounter
--- OUTSIDE RECORDS SUMMARY | 2024-09-25 20:04 | XMS_ITS | Encounter Summary ---
Author Organization [facility] Health Address [address] [facility] [place] [address] Care Team Providers Care Tobacco Classer Name Role Phone Citlaly Ramos DO Primary Care Provider [phone] Miller Zamora MD Unavailable [phone] Darryl Starr DO Unavailable Encounter Details Date Type Department Care Team (Late st Contact Info) Description 10/04/2021 Orders Only [facility] - Family Medicine [address] [place] [address] Citlaly Ramos DO [address] [facility] [address] [place] [address] Iron deficiency anemia, unspecified iron [...] type documented in this encounter Care Teams Tobacco Classer Relationship Specialty Start Date End Date Citlaly Ramos DO [address] [facility] [place] [address] PCP - General Family Medicine 02/21/21 Miller Zamora MD [address] [address] Urology 02/21/21 Darryl Starr DO [address] [facility] [place] [address] Obstetrics and Gynecology 07/04/21 documented as of this encounter
--- OUTSIDE RECORDS SUMMARY | 2024-09-25 20:04 | XMS_ITS | Encounter Summary ---
Author Organization [facility] Health Address [address] [place] [address] Care Team Providers Care Master [employer] Name Role Phone TierraCitlaly avalos Primary Care Provider [phone] Miller Zamora MD Unavailable [phone] Darryl Starr DO Unavailable Encounter Details Date Type Department Care Team (Late st Contact Info) Description 09/25/2021 Orders Only [facility] [address] [place] [address] Candice Mcfadden, RN Ureteral stent [...] Mcfadden, RN - 09/25/2021 2:01 PM CST US SECURITY OFFICER documented in this encounter Plan of Treatment Not on file documented as of this encounter Visit Diagnoses Diagnosis Ureteral stent retained- Primary Other complications due to genitourinary device, implant, and graft Flank pain Abdominal pain, unspecified site documented in this encounter Care Teams Master [employer] Relationship Specialty Start Date End Date Citlaly Ramos DO [address] [place] [phone] PCP - General Family Medicine 02/21/21 Miller Zamora MD [address] [place] [address] Urology 02/21/21 Darryl Starr DO [address] [place] [address] Obstetrics and Gynecology 07/04/21 documented as of this encounter
--- OUTSIDE RECORDS SUMMARY | 2024-09-25 20:04 | XMS_ITS | Encounter Summary ---
Author Organization [facility] Health Address [address] [facility] [place] [address] Care Team Providers Care C[employer]os Tm1 Developer Name Role Phone TheresaAnkita modiron GUZMAN Primary Care Provider [phone] Miller Zamora MD Unavailable [phone] Darryl Starr DO Unavailable Reason for Visit * Reason Onset Date Comments Follow-up 09/27/2021 Encounter Details Date Type Department Care Team (Late st Contact Info) Description 09/27/2021 Telephone [facility] [address] [place] [address] Candice Mcfadden, RN Follow-up Social [...] Candice Mcfadden RN - 09/27/2021 11:20 AM REFUSE DRIVER Nurse called patient about incoming referral to Dr. Zamora. Advised we unfortunately do not accept her insurance. Nurse offered to refer patient to [facility] in [place] or to another provider of her choosing with the understanding that she may need to be referred again if doctor doesn't accept her insurance. Nurse also suggested she ask her PCP. She declined referral. Patient states she has an appointment on 10/03 with Jeronimo Kowalski. Nurse provided her with the phonenumber of the referral coordinators at [phone] Kowalski's office accepts her insurance. I asked patient to call me back should she need a referral elsewhere. Patient encouraged to call with additional questions or concerns. My direct phone number was provided. Voiced understanding and is amenable to plan. SE DRIVER documented in this encounter Plan of Treatment Not on file documented as of this encounter Visit Diagnoses Not on filedocumented in this encounter Care Teams C[employer] Tm1 Developer Relationship Specialty Start Date End Date Citlaly Ramos DO [address] [place] [phone] PCP - General Family Medicine 02/21/21 Miller Zamora MD [address] [place] [address] Urology 02/21/21 Darryl Starr DO [address] [place] [address] Obstetrics and Gynecology 07/04/21 documented as of this encounter
--- OUTSIDE RECORDS SUMMARY | 2024-09-25 20:04 | XMS_ITS | Clinical Summary ---
Author Organization [facility] Address [address] [facility] [place] [address] Care Team Providers Care Product Manufacturing Professional Name Role Phone TheresaAnkita modiron GUZMAN Primary Care Provider [phone] Miller Zamora MD Unavailable [phone] Darryl Starr DO Unavailable Source Comments [facility],non-owned Affiliates and Associated Physician Practices is amultiple site organization consisting of ambulatory clinics and hospital sitesin [place], [place], [place] and [place]. This disclosure is being madepursuant to the Care Everywhere program and may not contain all information available regarding this patient. Last updated 18.[facility] Allergies Active Allergy Reactions Criticality Noted Date [...] Comments Blood Pressure 128/84 09/24/2021 2:07 PM LINE MAINTENANCE Pulse 93 09/24/2021 2:07 PM LINE MAINTENANCE Temperature 37.2 ??C (98.9 ??F) 09/24/2021 2:[address] Respiratory Rate 18 09/24/2021 2:07 PM LINE MAINTENANCE Oxygen Saturation 99% 09/24/2021 2:07 PM LINE MAINTENANCE Inhaled Oxygen Concentration 98% 11/25/2020 4 :20 PM CDT Weight 86.2 kg (190 lb) 09/24/2021 2:07 PM LINE MAINTENANCE Height 162.6 cm (5' 4 ) 09/24/2021 2:07 PM LINE MAINTENANCE Body Mass Index 32.61 09/24/2021 2:07 PM LINE MAINTENANCE Plan of Treatment Health Maintenance Due Date [...] this topic Medical Devices Implanted Type Area Rn Orthopaedic Device Identifier Shelf Expiration Date Model / Serial / Lot Stent Uret 6fr 24cm Pgtl Crv Tpr Tip - [id number] Implanted:Qty: 1 on 01/14/2021 by Miller Zamora MD at [facility] Stent Right: Ureter [place] Scimed 09/19/2023 [id number] / [id number] / [id number] Stent Uret 6fr 24cm 2 Drmtr Bldr Loop Implanted:Qty: 1 on 11/25/2020 by Miller Zamora MD at [facility] Right: Ureter Yousif Davidson Scimed 01/08/2023 [id number] / / Procedures Procedure Name Priority [...] (endocervical component) are present. Clinician Provided ICD10 [facility] INSURANCE BILL Comment: Z01.419 N20.0 N76.1 Performed by [facility] INSURANCE BILL Comment:Libby montgomery, Allergy And Immunology Chief (ASCP) Comment . [facility] INSURANCE BILL Note [facility] INSURANCE BILL Comment: The Pap smear is a screening test designed to aid in the detection of premalignant and malignant conditions of the uterine cervix. ??It is not a diagnostic procedure and should not be used as the sole means of detecting cervical cancer. ??Both false-positive and false-negative reports do occur. ? . IGLBP CPT Code Automation [facility] INSURANCE BILL Comment: This liquid based ThinPrep(R) pap test was screened with the use of an image guided system. Note [facility] INSURANCE BILL Comment: The HPV DNA reflex criteria were not met with this specimen result therefore, no HPV testing was performed. ? . Pathology/Cytolog y PART OF UTERINE CERVIX / Unknown 07/01/2021 4:04 PM CDT 07/02/2021 Narrative [facility] INSURANCE BILL - 07/03/2021 5:08 PM CDT No. of containers..01 ThinPrep Vial Resulting Agency Comment Lab Testing performed at: [facility] [place] [address] [place] ??[place] VAZQUEZ [id number] Darryl Starr DO LAB - PATHOLOGY/CYTO LOGY ORDERABLES [facility] INSURANCE BILL [address] [place] [address] from Last 3 Months or Most Recently Relevant to Health Maintenance Advance Directives * Full Code (Latest Code Status on File) Date Activated Date Inactivated Comments 10/20/2015 9:32 AM 10/20/2015 9:32 AM Care Teams Product Manufacturing Professional Relationship Specialty Start Date End Date Citlaly Ramos DO [address] [place] [phone] PCP - General Family Medicine 02/21/21 Miller Zamora MD [address] [place] [address] Urology 02/21/21 Darryl Starr DO [address] [phone] Obstetrics and Gynecology 07/04/21
--- OUTSIDE RECORDS SUMMARY | 2024-09-25 20:05 | XMS_ITS | Encounter Summary ---
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 and a stone in January2021/pt has not followed up since stent placed Encounter Details Date Type Department Care Team (Late st Contact Info) Description 09/24/2021 2:38 PM STEEL BURNER - 09/24/2021 6:38 PM STEEL BURNER Emergency ER at [facility] [address] [place], [place] [id number] Nancy Nuñez MD [address] [place], [place] [id number] Right flank pain; Pyelonephritis Discharge Disposition: Home [...] Comments Blood Pressure 128/84 09/24/2021 2:07 PM STEEL BURNER Pulse 93 09/24/2021 2:07 PM STEEL BURNER Temperature 37.2 ??C (98.9 ??F) 09/24/2021 2:07 PM CS T Respiratory Rate 18 09/24/2021 2:07 PM STEEL BURNER Oxygen Saturation 99% 09/24/2021 2:07 PM STEEL BURNER Inhaled Oxygen Concentration - - Weight 86.2 kg (190 lb) 09/24/2021 2:07 PM STEEL BURNER Height 162.6 cm (5' 4 ) 09/24/2021 2:07 PM STEEL BURNER Body Mass Index 32.61 09/24/2021 2:07 PM STEEL BURNER documented in this encounter Functional Status Functional [...] Care Everywhere. * Kidney Infection (AfterCare(R) Instructions(ER/ED)) (Russian) documented in this encounter Medications at Time [...] having pain to her right side. 06/16 L BURNER * Nancy Nuñez MD - 09/24/2021 2:56 PM CST ED Events Date/Time Event User Comments 09/24/21 1441 First Provider Evaluation NANCY NUÑEZ Datreion Deven [place] [id number] [facility] EMERGENCY DEPARTMENT History Chief Complaint [...] hematuria. Patient states she was seen at [facility] for stent placement and lithotripsy on the [...] to affected area 2 times daily as [id number] g 1 Procedures Procedures Lab Interpretation Oxygen [...] Negative Negative Ketone UA Negative Negative Specific Equality UA 1.020 1.005 - 1.030 Blood UA [...] [JAYDEN] ED Course User Index [JAYDEN] Nancy Nuñez MD Clinical Impressions as of 01/18/22 2231 [...] Med Dispo: discharge Follow-up Information Call Miller Zamora MD. Specialty: Urology Contact information: [address] OF UROLOGIC SURGERY [facility] [address] L BURNER documented in this encounter Plan of Treatment Not on file documented as of this encounter Procedures Procedure Name Priority Date/Time Associated Diagnosis Comments US RETROPERITONEAL COMPLETE STAT 09/24/2021 4:21 PM STEEL BURNER Right flank pain HCG URINE QUAL POCT NOTIFICATION STAT 09/24/2021 4:00 PM STEEL BURNER URINE MICROSCOPIC ONLY REFLEX TO CULTURE STAT 09/24/2021 3:02 PM STEEL BURNER URINALYSIS REFLEX MICROSCOPIC REFLEX CULTURE STAT 09/24/2021 3:02 PM STEEL BURNER CULTURE URINE STAT 09/24/2021 3:02 PM STEEL BURNER HCG URINE QUALITATIVE - POCT (IP) INTERFACED Routine 09/24/2021 3:01 PM STEEL BURNER CBC W AUTO DIFFERENTIAL STAT 09/24/19 3:01 PM STEEL BURNER COMPREHENSIVE METABOLIC PANEL STAT 09/24/2021 3:01 PM STEEL BURNER documented in this encounter Results * US KIDNEYS/BLADDER (RETROPERITONEAL COMPLETE) (09/24/2021 4:21 PM STEEL BURNER) Anatomical Region Laterality Modality Abdomen Ultrasound 09/24/2021 4:34 PM STEEL BURNER Narrative 09/24/2021 4:57 PM STEEL BURNER RENAL ULTRASOUND HISTORY: Horseshoe kidney and right [...] URINE QUAL POCT NOTIFICATION (09/24/2021 4:00 PM STEEL BURNER) Comment Notification Label Only - See Separate Report 09/24/2021 4:00 PM STEEL BURNER [facility] Urine URINE / Unknown 2:44 PM STEEL BURNER Nancy Nuñez MD LAB - URINALYSIS ORD ERABLES Performing Organization Address City/[facility]/ZIP Co de Phone Number [facility] [address] [place] [address] * CULTURE URINE (09/24/2021 3:02 PM STEEL BURNER) Culture Urine >100,000 CFU/mL urogenital marco [place] 09/26/2021 10:26 AM STEEL BURNER [facility] Urine URINE SPECIMEN OBTAINED BY CLEAN CATCH PROCEDURE / Unknown Collection / Unknown 09/24/2021 3:02 PM STEEL BURNER 09/24/2021 3:06 PM STEEL BURNER Nancy Nuñez MD LAB - MICROBIOLOGY O RDERABLES [facility] [address] [place], [place] [address], [facility] [phone] * (ABNORMAL) URINE MICROSCOPIC ONLY REFLEX TO CULTURE (09/24/2021 3:02 PM STEEL BURNER) Reflex Status Culture to follow 09/24/2021 3:11 PM STEEL BURNER [facility] RBC UA >100(A) None Seen, 0-2, 3-5 # /hpf 09/24/2021 3:11 PM STEEL BURNER [facility] WBC UA >100(A) None Seen, 0-5 # /hpf 09/24/2021 3:11 PM STEEL BURNER [facility] Bacteria UA Trace(A) None Seen 09/24/2021 3:11 PM STEEL BURNER [facility] Squamous Epithelial Cells 6-10(A) None Seen, 0-2, 3-5 /hpf 09/24/2021 3:11 PM STEEL BURNER [facility] Mucus UA 2+ /LPF 09/24/2021 3:11 PM STEEL BURNER [facility] Urine URINE SPECIMEN OBTAINED BY CLEAN CATCH PROCEDURE / Unknown Collection / Unknown 09/24/2021 3:02 PM STEEL BURNER 09/24/2021 3:06 PM STEEL BURNER [facility] - 09/24/2021 3:11 PM STEEL BURNER Nancy Nuñez MD LAB - URINALYSIS ORD ERABLES [facility] [address] [place] [address] * (ABNORMAL) URINALYSIS REFLEX MICROSCOPIC REFLEX CULTURE (09/24/2021 3:02 PM STEEL BURNER) Color UA Yellow Straw, Yellow 09/24/2021 3:[address] [facility] Clarity UA Cloudy(A) Clear 09/24/2021 3:10 PM STEEL BURNER [facility] Glucose UA Negative Negative 09/24/2021 3:[address] [facility] Bilirubin UA Negative Negative 09/24/2021 3:10 PM STEEL BURNER [facility] Ketone UA Negative Negative 09/24/2021 3:[address] [facility] Specific Equality UA 1.020 1.005 - 1.030 09/24/2021 3:[address] [facility] Blood UA 3+(A) Negative 09/24/2021 3:[address] [facility] pH UA 6.0 5.0 - 8.0 pH 09/24/2021 3:[address] [facility] Protein UA 2+(A) Negative 09/24/2021 3:[address] [facility] Urobilinogen UA Negative Negative mg/dL 09/24/2021 3:[address] [facility] Nitrite UA Negative Negative 09/24/2021 3:[address] [facility] Leukocyte UA 3+(A) Negative 09/24/2021 3:[address] [facility] Urine Microscopy Urine microscopy to follow 09/24/2021 3:[address] [facility] Reflex Status Culture to follow 09/24/2021 3:[address] [facility] Urine URINE SPECIMEN OBTAINED BY CLEAN CATCH PROCEDURE / Unknown Collection / Unknown 09/24/2021 3:02 PM STEEL BURNER 09/24/2021 3:06 PM STEEL B[facility]NER Narrative [facility] - 09/24/2021 3:10 PM STEEL BURNER Nancy Nuñez MD LAB - URINALYSIS ORD ERABLES Performing Organization Address City/[facility]/ZIP Co de Phone Number [facility] [address] [place] [address] * HCG URINE QUALITATIVE - POCT (IP) INTERFACED (09/24/2021 3:01 PM STEEL BURNER) Pathologist [facility] HCG Qual Urine Negative Negative 09/24/2021 3:[address] [facility] Urine URINE / Unknown 09/24/2021 3 :01 PM STEEL BURNER 09/24/2021 3:07 PM STEEL BURNER Nancy Nuñez MD LAB - POINT OF CARE ORDERABLES Performing Organization Address [facility] Co de Phone Number [facility] [address] [place] [address] * (ABNORMAL) COMPREHENSIVE METABOLIC PANEL (09/24/2021 3:01 PM STEEL BURNER) Pathologist [facility] Glucose 84 70 - 105 mg/dL 09/24/2021 3:[address] [facility] Sodium 137 136 - 145 mmol/L 09/24/2021 3:[address] [facility] Potassium 3.7 3.5 - 5.1 mmol/L 09/24/2021 3:[address] [facility] Chloride 107 98 - 107 mmol/L 09/24/2021 3:[address] [facility] CO2 24 23 - 31 mmol/L 09/24/2021 3:[address] [facility] Calcium 9.3 8.4 - 10.4 mg/dL 09/24/2021 3:[address] [facility] Anion Gap 6(L) 8 - 18 mmol/L 09/24/2021 3:[address] [facility] BUN 12 7 - 18.7 mg/dL 09/24/2021 3:[address] [facility] Creatinine 0.64 0.57 - 1.11 mg/dL 09/24/2021 3:[address] [facility] Alkaline Phosphatase 58 40 - 150 U/L 09/24/2021 3:23 PM STEEL BURNER [facility] ALT 13 0 - 61 U/L 09/24/2021 3:23 PM STEEL BURNER [facility] AST 16 5 - 34 U/L 09/24/2021 3:23 PM STEEL BURNER [facility] Protein Total 7.2 6.4 - 8.3 gm/dL 09/24/2021 3:23 PM STEEL BUR[facility] Albumin 4.1 3.5 - 5.2 gm/dL 09/24/2021 3:[address] [facility] Bilirubin Total 0.3 0.2 - 1.2 mg/dL 09/24/2021 3:23 PM STEEL BUR[facility] eGFR by MDRD >60 >60 mL/min/1.7 3m2 09/24/2021 3:23 PM STEEL BUR[facility] eGFR by MDRD >60 >60 mL/min/1.7 3m2 09/24/2021 3:[address] [facility] Blood BLOOD SPECIMEN / Unknown Venipuncture / Unknown 09/24/2021 3:01 PM STEEL BURNER 09/24/2021 3:06 PM [facility] Nancy Nuñez MD LAB [facility] Organization Address City/State/ZIP Co de Phone Number [facility] [address] [place] [address] * (ABNORMAL) CBC W AUTO DIFFERENTIAL (09/24/2021 3:01 PM STEEL BURNER) WBC 7.4 4.4 - 10.7 x10E9/L 09/24/2021 3:08 PM STEEL BURNER [facility] WBC Corrected 09/24/2021 3:[address] [facility] RBC 4.37 3.80 - 5.20 x10E12/L 09/24/2021 3:[address] [facility] Hemoglobin 10.7(L) 12.0 - 15.6 gm/dL 09/24/2021 3:[address] [facility] Hematocrit 34.3(L) 35.9 - 45.5 % 09/24/2021 3:08 PM STEEL BUR[facility] MCV 78.5(L) 80.7 - 98.3 fl 09/24/2021 3:[address] [facility] MCH 24.5(L) 26.7 - 34.0 pg 09/24/2021 3:[address] [facility] MCHC 31.2 30.8 - 35.9 gm/dL 09/24/2021 3:[address] [facility] Platelet Count 436(H) 153 - 416 x10E9/L 09/24/2021 3:[address] [facility] RDW-CV 18.2(H) 12.1 - 14.9 % 09/24/2021 3:[address] [facility] MPV 9.2(L) 9.4 - 12.9 fl 09/24/2021 3:[address] [facility] Neutrophils % 55.3 44.0 - 73.0 % 09/24/2021 3:[address] [facility] Lymphocytes % 25.5 20.0 - 43.0 % 09/24/2021 3:[address] [facility] Monocytes % 10.3 5.0 - 13.0 % 09/24/2021 3:[address] [facility] Eosinophils % 7.6(H) 0.0 - 6.0 % 09/24/2021 3:[address] [facility] Basophils % 0.9 0.0 - 2.0 % 09/24/2021 3:[address] [facility] Immature Granulocytes 0.4 0 - 1 % 09/24/2021 3:[address] [facility] Neutrophil Absolute 4.08 2.01 - 7.14 x10E9/L 09/24/2021 3:[address] [facility] Lymphocytes Absolute 1.88 1.07 - 3.94 x10E9/L 09/24/2021 3:[address] [facility] Monocytes Absolute 0.76 0.26 - 1.07 x10E9/L 09/24/2021 3:[address] [facility] Eosinophils Absolute 0.56(H) 0 - 0.47 x10E9/L 09/24/2021 3:[address] [facility] Basophils Absolute 0.07 0 - 0.08 x10E9/L 09/24/2021 3:[address] [facility] Immature Granulocytes Absolute 0.03 0.00 - 0.06 x10E9/L 09/24/2021 3:08 PM STEEL B[facility] nRBC Auto 0 /100 WBC 09/24/2021 3:08 PM STE[facility] B[facility] Blood BLOOD SPECIMEN / Unknown Venipuncture / Unknown 09/24/2021 3:01 PM STEEL [facility]NER 09/24/2021 3:06 PM [facility] Nancy Nuñez MD LAB - HEMATOLOGY ORD ERABLES [facility] [address] [place] [address] documented in this encounter Visit [...] at 1830 $ Given 09/24/2021 6:31 PM STEEL BURNER 30 mg ondansetron (Zofran) injection 4 mg 4 mg, Intravenous, NOW, 1 dose, On Thu09/24/21 at 1530, Administer over 2 to 5 minutes. $ Given 09/24/2021 3:17 PM STEEL BURNER 4 mg oxyCODONE-acetaminophen (Percocet) 5-325 MG tablet 1 tablet 1 tablet, Oral, NOW, 1 dose, On Thu09/24/21 at 1500 $ Given 09/24/2021 3:13 PM STEEL BURNER 1 tablet documented in this encounter Active and Recently Administered Medications Times are shown in STEEL BURNER. Scheduled Medication Order 09/22/2021 09/23/2021 09/24/2021 ketorolac [...] Mcmahon) documented in this encounter Care Teams Meeting Manager Relationship Specialty Start Date End Date Citlaly Ramos DO [address] [facility] [address] PCP - General Family Medicine 02/21/21 Miller Zamora MD [address] [place] [phone] Urology 02/21/21 Darryl Starr DO [address] [facility] [address] Obstetrics and Gynecology 07/04/21 documented as of this encounter
--- OUTSIDE RECORDS SUMMARY | 2024-09-25 20:05 | XMS_ITS | Encounter Summary ---
Author Organization [facility] Address [address] [facility] [place] [address] Care Team Providers Care Credit Control Assistant Name Role Phone TierraCitlaly avalos Primary Care Provider [phone] Miller Zamora MD Unavailable [phone] Darryl Starr DO Unavailable Reason for Visit * Reason Comments Nurse Only Encounter Details Date Type Department Care Team (Latest Contact Info) Description 08/08/2021 1:30 PM VIGOUREUX PRINTER Clinical Support [facility] Medical [facility] - SHEET METAL LAY OUT WORKER [address] [place], [place] [id number] Trichomonas infection Social History Tobacco Use Types [...] Pt left urine sample for PAMELLA trich. UREUX PRINTER documented in this encounter Plan of Treatment Not on file documented as of this encounter Procedures Procedure Name Priority Date/Time Associated Diagnosis Comments CHLAMYDIA + GC + TRICH DNA AMPL Routine 08/08/2021 1:34 PM VIGOUREUX PRINTER Trichomonas infection documented in this encounter Results * CHLAMYDIA + GC + TRICH DNA AMPL (08/08/2021 1:34 PM VIGOUREUX PRINTER) Chlamydia trachomatis JOSHUA Negative Negative [facility] INSURANCE BILL GC DNA Probe Negative Negative [facility] INSURANCE BILL Trichomonas vaginalis by JOSHUA Negative Negative [facility] INSURANCE BILL Microbiology URINE / Unknown 08/08/2021 1 :34 PM VIGOUREUX PRINTER 08/08/2021 Narrative Resulting Agency Comment Lab Testing performed at: Lab[address] ??[place] [id number] Libby Rod APRN-INSTRUMENT LENS INSPECTOR LAB - MICROBI OLOGY ORDERABLES [facility] INSURANCE BILL [address] [place] [address] documented in this encounter Visit Diagnoses Diagnosis Trichomonas infection- Primary Trichomoniasis, unspecified documented in this encounter Care Teams Credit Control Assistant Relationship Specialty Start Date End Date Citlaly Ramos DO [address] [place] [phone] PCP - General Family Medicine 02/21/21 Miller Zamora MD [address] [place] [address] Urology 02/21/21 Darryl Starr DO [address] [place] [address] Obstetrics and Gynecology 07/04/21 documented as of this encounter
--- OUTSIDE RECORDS SUMMARY | 2024-09-25 20:05 | XMS_ITS | Encounter Summary ---
Author Organization [facility] Address [address] [facility] [place] [address] Care Team Providers Care Enrichment Assistant Name Role Phone TierraCitlaly avalos Primary Care Provider [phone] Miller Zamora MD Unavailable [phone] Darryl Starr DO Unavailable Reason for Visit * Reason Onset Date Comments YEAST INFECTION 08/08/2021 Encounter Details Date Type Department Care Team (Late st Contact Info) Description 08/08/2021 Telephone [facility] - [facility] [address] [place] [address] Libby Rod APRN-COTTON BAG SEWER [address] [place] [address] YEAST INFECTION Social History Tobacco Use [...] - 08/08/2021 1:23 PM CST Patient notified THESIA ATTENDING * Telephone Encounter - Libby Rod APRN-CNP - 08/08/2021 1:14 PM ANESTHESIA ATTENDING Diflucan ordered. Follow up appointment needed if no improvement. THESIA ATTENDING * Telephone Encounter - Alina Herrera - 08/08/2021 10:52 AM CST Vaginal Problem : No INDUSTRIAL RELATIONS SPECIALIST: Yes Onset: 3 days Vaginal Itching: Yes [...] tablet by mouth once for 1 dose THESIA ATTENDING documented in this encounter Plan of Treatment Not on file documented as of this encounter Visit Diagnoses Not on filedocumented in this encounter Care Teams Enrichment Assistant Relationship Specialty Start Date End Date Citlaly Ramos DO [facility] [place] [phone] PCP - General Family Medicine 02/21/21 Miller Zamora MD [address] [place] [address] Urology 02/21/21 Darryl Starr DO [address] [facility] [place] [phone] Obstetrics and Gynecology 07/04/21 documented as of this encounter
--- OUTSIDE RECORDS SUMMARY | 2024-09-25 20:05 | XMS_ITS | Encounter Summary ---
Author Organization [facility] Address [address] [place] [address] Care Team Providers Care Dinkey Motor Operator Name Role Phone TheresaAnkita modiron GUZMAN Primary Care Provider [phone] Miller Zamora MD Unavailable [phone] Darryl Starr DO Unavailable Reason for Visit * Reason Comments Nurse Only Encounter Details Date Type Department Care Team (Latest Contact Info) Description 07/19/2021 10:30 AM PHYSICS AND ASTRONOMY PROFESSOR Clinical Support [facility] Medical [facility] - JAPANESE TUTOR [address] [place] [address] Hx of trichomoniasis Social History Tobacco Use [...] sample for PAMELLA trich. Sample sent to [facility]. ICS AND ASTRONOMY PROFESSOR documented in this encounter Plan of Treatment Not on file documented as of this encounter Procedures Procedure Name Priority Date/Time Associated Diagnosis Comments CHLAMYDIA + GC + TRICH DNA AMPL Routine 07/19/2021 2:35 PM PHYSICS AND ASTRONOMY PROFESSOR Hx of trichomoniasis documented in this encounter Results * (ABNORMAL) CHLAMYDIA + GC + TRICH DNA AMPL (07/19/2021 2:35 PM PHYSICS AND ASTRONOMY PROFESSOR) Chlamydia trachomatis JOSHUA Negative Negative [facility] INSURANCE BILL GC DNA Probe Negative Negative [facility] INSURANCE BILL Trichomonas vaginalis by JOSHUA Positive(A) Negative [facility] INSURANCE BILL Microbiology URINE / Unknown 07/19/2021 2 :35 PM PHYSICS AND ASTRONOMY PROFESSOR 07/19/2021 Narrative Resulting Agency Comment Lab Testing performed at: [facility] ??[place] [id number] Libby Rod INCOME TAX CONSULTANT-BATTERY TESTER LAB - MICROBI OLOGY ORDERABLES [facility] INSURANCE BILL [address] [place] [address] documented in this encounter Visit Diagnoses Diagnosis Hx of trichomoniasis- Primary Personal history of other infectious and parasitic disease documented in this encounter Care Teams Dinkey Motor Operator Relationship Specialty Start Date End Date Citlaly Ramos DO [address] [place] [address] [place] [address] PCP - General Family Medicine 02/21/21 Miller Zamora MD [address] [place] [address] Urology 02/21/21 Darryl Starr DO [address] [place] [address] Obstetrics and Gynecology 07/04/21 documented as of this encounter
--- OUTSIDE RECORDS SUMMARY | 2024-09-25 20:05 | XMS_ITS | Encounter Summary ---
Author Organization [facility] Health Address [address] [facility] [place] [address] Care Team Providers Care Medical Insurance Verifier Name Role Phone Citlaly aRmos DO Primary Care Provider [phone] Miller Zamora MD Unavailable [phone] Darryl Starr DO Unavailable Reason for Visit * Reason Comments Sleep Problem trouble falling asle ep and staying asleep Encounter Details Date Type Department Care Team (Late st Contact Info) Description 07/04/2021 9:30 AM CDT Video Visit [facility] - Family Medicine [address] [facility] [place], [place] [id number] Citlaly Ramos DO [address] [facility] [address] [place] [address] Depression with anxiety Social History [...] to the billing and collection practices of [facility]. Patient location: Home This [...] disorder documented in this encounter Care Teams Medical Insurance Verifier Relationship Specialty Start Date End Date Citlaly Ramos DO [address] [place] [address] PCP - General Family Medicine 02/21/21 Miller Zamora MD [address] [address] Urology 02/21/21 Darryl Starr DO [address] [place] [address] Obstetrics and Gynecology 07/04/21 documented as of this encounter
--- OUTSIDE RECORDS SUMMARY | 2024-09-25 20:05 | XMS_ITS | Encounter Summary ---
Author Organization [facility] Address [address] [place] [address] Care Team Providers Care Project Manager Finance Name Role Phone TheresaAnkita modiron GUZMAN Primary Care Provider [phone] Miller Zamora MD Unavailable [phone] Darryl Starr DO Unavailable Reason for Visit * Reason Onset Date Comments Results 07/05/2021 Encounter Details Date Type Department Care Team (Late st Contact Info) Description 07/05/2021 Telephone [facility] Group - ALUM MIXER [address] [place] [address] Darryl Starr DO [address] [place] [address] Results Social History Tobacco Use [...] filedocumented in this encounter Care Teams Project Manager Finance Relationship Specialty Start Date End Date Citlaly Ramos DO [address] [place] [address] [place] [address] PCP - General Family Medicine 02/21/21 Miller Zamora MD [address] [place] [address] Urology 02/21/21 Darryl Starr DO [address] [place] [address] Obstetrics and Gynecology 07/04/21 documented as of this encounter
--- OUTSIDE RECORDS SUMMARY | 2024-09-25 20:05 | XMS_ITS | Encounter Summary ---
Author Organization [facility] Health Address [address] [facility] [place] [address] Care Team Providers Care Scheduling Manager Name Role Phone TheresaAnkita modiron GUZMAN Primary Care Provider [phone] Miller Zamora MD Unavailable [phone] Darryl Starr DO Unavailable Reason for Visit [...] st Contact Info) Description 09/09/2021 9:36 PM HAND GRINDER - 09/09/2021 9:37 PM [facility] Emergency [facility] EMERGENCY DEPARTMENT [address] [place] [phone] Flank pain Discharge Disposition: Left Against Medical [...] Comments Blood Pressure 124/73 09/09/2021 2:09 PM HAND GRINDER Pulse 102 09/09/2021 2:09 PM HAND GRINDER Temperature 36.3 ??C (97.4 ??F) 09/09/2021 2:09 PM CS T Respiratory Rate 12 09/09/2021 2:09 PM HAND GRINDER Oxygen Saturation 99% 09/09/2021 2:09 PM HAND GRINDER Inhaled Oxygen Concentration - - Weight 85.7 kg (189 lb) 09/09/2021 2:09 PM HAND GRINDER Height 162.6 cm (5' 4 ) 09/09/2021 2:09 PM HAND GRINDER Body Mass Index 32.44 09/09/2021 2:09 PM HAND GRINDER documented in this encounter Functional Status Functional [...] 2 for labs. Unable to find patient GRINDER * Aliza Hughes - 09/09/2021 5:43 PM CST Call x1 for labs no answer GRINDER * Shaista Aldana RN - 09/09/2021 2:34 PM CST Pt presents with c/o constanst right flank pain. Pt says she has a hx of kidney stones with lithotripsy done and stent placement in January. Pt says she was supposed to have stent out, but has not made the appt. Pt c/o urgency and hematuria. Denies fever, chills, vomiting, diarrhea. GRINDER documented in this encounter Plan of Treatment Not on file documented as of this encounter Visit Diagnoses Diagnosis Flank pain Abdominal pain, unspecified site documented in this encounter Care Teams Scheduling Manager Relationship Specialty Start Date End Date Citlaly Ramos DO [address] [place] [phone] PCP - General Family Medicine 02/21/21 Mliler Zamora MD [address] [place] [address] Urology 02/21/21 Darryl Starr DO [address] [place] [address] Obstetrics and Gynecology 07/04/21 documented as of this encounter
--- OUTSIDE RECORDS SUMMARY | 2024-09-25 20:05 | XMS_ITS | Encounter Summary ---
Author Organization [facility] Address [address] [facility] [place] [address] Care Team Providers Care Nuclear Auxiliary Operator Name Role Phone Citlaly Ramos DO Primary Care Provider [phone] Miller Zamora MD Unavailable Darryl Starr DO Unavailable Reason for Visit * Reason Onset Date Comments Order 07/19/2021 Encounter Details Date Type Department Care Team (Late st Contact Info) Description 07/19/2021 Telephone [facility] Medical Group - Family Medicine [address] [place] [address] Citlaly Ramos DO [address] [facility] [address] [place] [address] Order Social History Tobacco Use [...] when she comes into the office today. ARCHITECT * Telephone Encounter - Alina Harvey APRN-CNP - 07/19/2021 8:54 AM UI ARCHITECT Ok for TB test- we can do the PPD or the TB gold blood test ARCHITECT * Telephone Encounter - Alia Martinez RN [...] 10:30 with obgyn office. Let patient know. ARCHITECT documented in this encounter Plan of Treatment Scheduled Orders Name Type Priority Associated Diagnoses Orde r Schedule QUANTIFERON-TB GOLD PLUS 4-TUBE Lab Routine Screening-pulmonary TB Ordered: 07/19/2021 documented as of this encounter Visit Diagnoses Diagnosis Screening-pulmonary TB- Primary Screening examination for pulmonary tuberculosis documented in this encounter Care Teams Nuclear Auxiliary Operator Relationship Specialty Start Date End Date Citlaly Ramos DO [facility] [place] [address] PCP - General Family Medicine 02/21/21 Miller Zamora MD [address] [address] Urology 02/21/21 Darryl Starr DO [address] [facility] [place] [address] Obstetrics and Gynecology 07/04/21 documented as of this encounter
--- OUTSIDE RECORDS SUMMARY | 2024-09-25 20:05 | XMS_ITS | Encounter Summary ---
Author Organization [facility] Health Address [address] [facility] [place] [address] Care Team Providers Care Diesel Motor Mechanic Name Role Phone Citlaly Ramos DO Primary Care Provider [phone] Miller Zamora MD Unavailable [phone] Darryl Starr DO Unavailable Encounter Details Date Type Department Care Team (Late st Contact Info) Description 07/04/2021 Orders Only [facility] Group - Family Medicine [address] [place] [address] Citlaly Ramos DO [address] [facility] [address] [place] [address] Iron deficiency anemia, unspecified iron [...] Primary documented in this encounter Care Teams Diesel Motor Mechanic Relationship Specialty Start Date End Date Citlaly Ramos DO [address] [facility] [place] [address] PCP - General Family Medicine 02/21/21 Miller Zamora MD [address] [place] [phone] Urology 02/21/21 Darryl Starr DO [address] [place] [address] Obstetrics and Gynecology 07/04/21 documented as of this encounter
--- OUTSIDE RECORDS SUMMARY | 2024-09-25 20:05 | XMS_ITS | Encounter Summary ---
Author Organization [facility] Health Address [address] [facility] [place] [address] Care Team Providers Care Tub Puller Name Role Phone TheresaAnkita modiron GUZMAN Primary Care Provider [phone] Miller Zamora MD Unavailable Darryl Starr DO Unavailable Encounter Details Date [...] on filedocumented in this encounter Care Teams Tub Puller Relationship Specialty Start Date End Date Citlaly Ramos DO [address] [facility] [place] [address] PCP - General Family Medicine 02/21/21 Miller Zamora MD [address] [place] [address] Urology 02/21/21 Darryl Starr DO [address] [place] [address] Obstetrics and Gynecology 07/04/21 documented as of this encounter
--- OUTSIDE RECORDS SUMMARY | 2024-09-25 20:05 | XMS_ITS | Encounter Summary ---
Author Organization [facility] Health Address [address] [facility] [place] [address] Care Team Providers Care Electrical Engineering Designer Name Role Phone TierraCitlaly avalos Primary Care Provider [phone] Miller Zamora MD Unavailable [phone] Darryl Starr DO Unavailable Encounter Details Date Type Department Care Team (Late st Contact Info) Description 07/22/2021 Orders Only [facility] Group - RUBBER MILL OPERATOR [address] [place] [address] Libby Rod APRN-VICTIM WITNESS ADMINISTRATOR [address] [place] [address] Social History Tobacco Use Types Packs/Day [...] on filedocumented in this encounter Care Teams Electrical Engineering Designer Relationship Specialty Start Date End Date Citlaly Ramos DO [address] [place] [address] PCP - General Family Medicine 02/21/21 Miller Zamora MD [address] DIV [place] [address] Urology 02/21/21 Darryl Starr DO [address] [place] [address] Obstetrics and Gynecology 07/04/21 documented as of this encounter
--- OUTSIDE RECORDS SUMMARY | 2024-09-25 20:05 | XMS_ITS | Encounter Summary ---
Author Organization [facility] Health Address [address] [facility] [place] [address] Care Team Providers Care Sanitor Name Role Phone TierraCitlaly avalos Primary Care Provider [phone] Miller Zamora MD Unavailable [phone] Darryl Starr DO Unavailable Encounter Details Date Type Department Care Team (Late st Contact Info) Description 07/19/2021 Orders Only [facility] - Family Medicine [address] [place], [place] [phone] Alina Harvey, SPA CONSULTANT-SENIOR ACCOUNTS PAYABLE CLERK [address] [facility] [address] [place] [address] Social History Tobacco Use Types [...] Comments QUANTIFERON TB-GOLD 07/19/2021 1 0:43 AM OUTPATIENT COORDINATOR documented in this encounter Results * QUANTIFERON TB-GOLD (07/19/2021 10:43 AM OUTPATIENT COORDINATOR) QuantiFERON Incubation Incubation performed. [facility] INSURANCE BILL [...] immunoassay methodology FASTING 07/19/2021 10:4 3 AM OUTPATIENT COORDINATOR 07/19/2021 Narrative Resulting Agency Comment Lab Testing performed at: [facility] [address] [facility] ??[facility] [id number] Alina Harvey SPA CONSULTANT-SENIOR ACCOUNTS PAYABLE CLERK LAB - CHEM ISTRY ORDERABLES [facility] INSURANCE BILL [address] [place] [address] documented in this encounter Visit Diagnoses Not on filedocumented in this encounter Care Teams Sanitor Relationship Specialty Start Date End Date Citlaly Ramos DO [address] [place] [address] [place] [address] PCP - General Family Medicine 02/21/21 Miller Zamora MD [address] [address] Urology 02/21/21 Darryl Starr DO [address] [place] [address] [place] [address] Obstetrics and Gynecology 07/04/21 documented as of this encounter
--- OUTSIDE RECORDS SUMMARY | 2024-09-25 20:06 | XMS_ITS | Encounter Summary ---
Author Organization [facility] Address [address] [facility] [place] [address] Care Team Providers Care Process Treater Name Role Phone Rachel Citlaly GUZMAN Primary Care Provider Miller Zamora MD Unavailable [phone] Reason for Visit * Reason Comments Establish Care Complete Physical Exam Encounter Details Date Type Department Care Team (Late st Contact Info) Description 02/21/2021 7:45 AM CDT Office Visit [facility] Medical [facility] - Family Medicine [address] [place] [address] Citlaly Ramos DO [address] [facility] [address] [place] [address] Well adult exam (Primary Dx); [...] 12, and 8 year old 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 [facility] [phone] Citlaly Ramos DO LAB - CHEMISTRY JOANNA YUNG [facility] ACCOUNT BILL [address] [place] [address] * (ABNORMAL) LIPID PROFILE REFLEX LDL DIRECT [...] Resulting Agency Comment Lab Testing performed at: [facility] [address] ?? [facility] [id number] Citlaly Ramos DO LAB - CHEMISTRY ORDE AGA Performing Organization Address City/[facility]/ZIP Co de Phone Number [facility] ACCOUNT BILL [address] [place] [address] * TSH (02/21/2021 8:26 AM CDT) TSH 1.8822 0.35 - 4.94 uIU/mL [facility] ACCOUNT BILL Comment:FASTING Blood BLOOD SPECIMEN / Unknown 02/21/2021 8:26 AM CDT 02/21/2021 Narrative Resulting Agency Comment Lab Testing performed at: [facility] [address] ?? [facility] [id number] Citlaly Ramos DO LAB - CHEMISTRY ORDE AGA Performing Organization Address City/[facility] Co de Phone Number [facility] ACCOUNT BILL [address] [place] [address] * COMPREHENSIVE METABOLIC PANEL (02/21/2021 8:26 AM [...] Resulting Agency Comment Lab Testing performed at: [address] ?? [facility] [id number] Citlaly Ramos DO LAB - CHEMISTRY JOANNA YUNG [facility] ACCOUNT BILL [address] [place] [address] * (ABNORMAL) CBC WITH DIFFERENTIAL (02/21/2021 8:26 [...] x10E9/L [facility] ACCOUNT BILL Comment:MPV FL BLOOD ([facility]) 1 0.3 fl 9.4-12.9 Granulocytes % 59.6 [...] Resulting Agency Comment Lab Testing performed at: [facility] [address] ?? [facility] [id number] Citlaly Ramos DO LAB - HEMATOLOGY ORD ERABLES [facility] ACCOUNT BILL [address] [place] [address] documented in this encounter Visit Diagnoses Diagnosis Well adult exam- Primary Routine general medical examination at a health care facility Depression with anxiety Dysthymic disorder Eczema, unspecified type documented in this encounter Care Teams Process Treater Relationship Specialty Start Date End Date Citlaly Ramos DO [address] [place] [address] PCP - General Family Medicine 02/21/21 Miller Zamora MD [address] [place] [address] Urology 02/21/21 documented as of this encounter
--- OUTSIDE RECORDS SUMMARY | 2024-09-25 20:06 | XMS_ITS | Encounter Summary ---
Author Organization [facility] Health Address [address] [facility] [place] [address] Care Team Providers Care Embossing Press Operator Apprentice Name Role Phone Citlaly Ramos Primary Care Provider [phone] Miller Zamora MD Unavailable [phone] Encounter Details Date Type Department Care Team (Late st Contact Info) Description 02/21/2021 Orders Only [facility] - Family Medicine [address] [place] [address] Libby Giang RN Social History Tobacco Use [...] on filedocumented in this encounter Care Teams Embossing Press Operator Apprentice Relationship Specialty Start Date End Date Citlaly Ramos DO [address] [place] [address] PCP - General Family Medicine 02/21/21 Miller Zamora MD [address] [place] [address] Urology 02/21/21 documented as of this encounter
--- OUTSIDE RECORDS SUMMARY | 2024-09-25 20:06 | XMS_ITS | Encounter Summary ---
Author Organization [facility] Health Address [address] [place] [address] Care Team Providers Care Threshing Operator Name Role Phone TierraCitlaly avalos Primary Care Provider [phone] Miller Zamora MD Unavailable [phone] Encounter Details Date Type Department Care Team [...] on filedocumented in this encounter Care Teams Threshing Operator Relationship Specialty Start Date End Date Citlaly Ramos DO [address] [place] [address] PCP - General Family Medicine 02/21/21 Miller Zamora MD [address] [place] [address] Urology 02/21/21 documented as of this encounter
--- OUTSIDE RECORDS SUMMARY | 2024-09-25 20:06 | XMS_ITS | Encounter Summary ---
Author Organization [facility] Address [address] [facility] [place] [address] Care Team Providers Care Hiv/Aids Care Nurse Name Role Phone RachelAnkitaron GUZMAN Primary Care Provider Miller Zamora MD Unavailable [phone] Reason for Visit * Reason Onset Date Comments MEDICATION REFILL 07/02/2021 MEDICATION REFILL 07/03/2021 Encounter Details Date Type Department Care Team (Late st Contact Info) Description 07/02/2021 Refill [facility] Medical [facility] - Family Medicine [address] [facility] [place] [address] Citlaly Ramos, DO [address] [facility] [address] [place] [address] MEDICATION REFILL; MEDICATION REFILL Social [...] on filedocumented in this encounter Care Teams Hiv/Aids Care Nurse Relationship Specialty Start Date End Date Citlaly Ramos DO [address] [place] [address] PCP - General Family Medicine 02/21/21 Miller Zamora MD [address] [place] [address] Urology 02/21/21 documented as of this encounter
--- OUTSIDE RECORDS SUMMARY | 2024-09-25 20:06 | XMS_ITS | Encounter Summary ---
Author Organization [facility] Address [address] [facility] [address] Care Team Providers Care Hospitality Services Manager Name Role Phone Rema Austin MD Primary Care Provider [phone] Reason for Visit * Auth/Cert Specialty Diagnoses / Procedures Referred By Norm benjamin Referred To Contact Diagnoses Right nephrolithiasis Right nephrolithiasis Procedures CYSTOSCOPY WITH RETROGRADE PYELOGRAM CYSTOSCOPY URETEROSCOPY WITH LASER/HOLMIUM LITHOTRIPSY Referral ID Status Reason Start Date Expiration Date Visits Re quested Visits Authorized [id number] 1 1 Encounter Details Date Type Department Care Team (Late st Contact Info) Description 01/14/2021 12:12 PM CDT Anesthesia Event [facility] JAREN OP [address] [place] [address] Paras Han MD [address] [place] [address] Foreign Jane Anes Asst [address] [place] [address] Anesthesia Record Procedure Summary Procedure [...] by Olga Gibbs RN 01/14/21 2234 by TripShake, Auto Release documented in this encounter Social [...] procedural Anesthetic Plan was discussed with the HUMAN RESOURCES RECORDS CLERK. BMI, Height, Weight Tobacco History Estimated body [...] History of ischemic heart disease? no Recent MN with 60 days = very high risk of MACE, requires cardiac consultation History of MN > 60 days History of positive stress [...] 2 mg/dl? no RCRI correlation with MACE (www.Merlinalc.com/cfejdyd-guquaul-vuvr-euedy-msq-ewryznypn-risk, originally validated by Danis T. Circulation. 1999;100:9237-6647) 0 Points - 0.4% risk 1 Point [...] place interrogation report in chart Information needed (photoengraving finisher, mode, indication for CIED, battery life, magnet function, PM dependence): Call PAT director or siding coreboard inspector to discuss any patient with a CIED Timing of interrogation should be: Within 1 year for PM and Within 6 months for AICD (Source: 2010 The Heart Rhythm Society (HRS)/[place] Society of Anesthesiologists (ASA) Expert Consensus Statement [...] blood bank will automatically send to [facility]. [facility] requires a 2nd confirmatory T&S before [...] as a first start case. Please call order clerk to discuss plan and document here: Patients [...] patients with DM, refer to PCP or hospital staff pharmacist for BG >200 - CMP (instead of [...] this encounter Procedure Notes * Caroline Santoro, ORGAN PIPE VOICER-HUMAN RESOURCES RECORDS CLERK - 01/14/2021 12:24 PM CDTAssociated Order(s): LMA [...] mg documented in this encounter Care Teams Hospitality Services Manager Relationship Specialty Start Date End Date Rema Austin MD [address] [place] [address] PCP - General Family Medicine 11/24/20 02/20/21 documented as of this encounter
--- OUTSIDE RECORDS SUMMARY | 2024-09-25 20:06 | XMS_ITS | Encounter Summary ---
Author Organization [employer] Address [address] [place] [address] Care Team Providers Care Care Management Coordinator Name Role Phone Rema Austin MD Primary Care Provider [phone] Reason for Visit * Auth/Cert Specialty Diagnoses / Procedures Referred By Norm benjamin Referred To Contact Diagnoses Right nephrolithiasis Right nephrolithiasis Procedures CYSTOSCOPY WITH RETROGRADE PYELOGRAM CYSTOSCOPY URETEROSCOPY WITH LASER/HOLMIUM LITHOTRIPSY Referral ID Status Reason Start Date Expiration Date Visits Re quested Visits Authorized [id number] 1 1 Encounter Details Date Type Department Care Team (Late st Contact Info) Description 01/14/2021 10:40 AM CDT - 01/14/2021 12:15 PM CDT Surgery [facility] [address] [place] [phone] Miller Zamora MD [address] [facility] 2L DIV [place] [phone] Cystoscopy, Right Ureteroscopy, Right Laser Lithotripsy, stone extraction, right retrograde pyelogram and possible right ureteral stent exchange Surgery Details Date/Time Status Location OR Service Patient Class Case Class Case Type Trauma Case? 01/14/2021 10:40 AM Posted [facility] OR OR Urology Surgery Day Care Panel 1 Procedure LRB Anes Op Region Wound Class Comments Cystoscopy, Right Ureterosco py, Right Laser Lithotripsy, stone extraction, right retrograde pyelogram and possible right ureteral stent exchange Right General Ureter Clean Contaminate d Surgeon Surgeon Role Service Panel Miller Zamora MD Primary Urology 1 Magan Barajas MD Resident - Assisting General 1 Special Needs Laser [facility]# [id number] / Reviewed OVID 01/11/2021 @9AM [facility] documented in this encounter Social History Tobacco [...] or the recovery process, please contact [facility] Urology at [phone] during regular business hours. On weekends or in the evening, please contact [facility] Hospitalat [phone] and ask for whoever is utilization review coordinator for Urology. Follow Up A follow up appointment with Dr. Zamora for cystoscopy and removal of the ureteral stent has beenscheduled on your behalf. - Appointment date and time: Monday January 25, 2021 at 11:30 AM - Location: [facility] in [place] (address [place] [address] [place] [address], [address]) If you need to change or cancel your appointment, please call [phone]. You may return to work 01/21/2021 Ureteral [...] refuse treatment. The above information is an educational administration teacher only. It is not intended as medical advice for individual conditions or treatments. Talk to your doctor, nurse or pharmacist before following any medical regimen to see if it is safe and effective for you. ?? Copyright [employer] 2018 Information is for End User's use only and may not be sold, redistributed or otherwise used for commercial purposes. All illustrations and images included in CareNotes?? are the copyrighted property of [employer]. or [employer] Ureteroscopy WHAT YOU NEED TO KNOW: A [...] ask them during your visits. ?? Copyright [employer] 2020 Information is for End User's use only and may not be sold, redistributed or otherwise used for commercial purposes. All illustrations and images included in CareNotes?? are the copyrighted property of [employer]. or [employer] The above information is an educational administration teacher only. It is not intended as medical [...] for Pain 30 tablet 03/15/2019 albuterol HFA (PROVENTIL;VENTOLIN;NV OAIR) 108 (90 BASE) MCG/ACT inhaler Inhale [...] this encounter H&P Notes * Adriane Brown APRN-UNIT RECEPTIONIST - 01/14/2021 8:29 AM CDT [facility] Division of Urologic Surgery Pre-Operative H&P Miller Zamora MD Today's Date: 01/14/2021 Patient Name: Alysha Jolley : 1990 No chief complaint on file. Lab 12/31/2020-[facility] COVID 01/11/2021 @9AM [facility] Pre-op urine culture arranged for 12/31/2020-[facility] COVID screen on 01/11/2021 9AM HISTORY OF [...] patient presented on November 24, 2020 to [facility] with right pelvic pain and underwent the [...] orders on 12/20/2020 and faxed them to [facility] to have a UA and culture completed. Urine Culture of 12/28: Growth of mixed marco was isolated, suggesting probable contamination. Urine Culture of 12/31 (taken at [facility]): Culture Urine 10,000-50,000 CFU/mL urogenital marco Covid-19 [...] Gatherings with Friends and Family: ??? Attends [employer] Services: ??? Active Member of Clubs or [...] Ref Range: Clear, Slt Cloudy Clear Specific Pearson UA Latest Ref Range: 1.005 - 1.030 [...] wishes to proceed with above surgery. KRISHNA Scott[facility] Division [facility]rologic Surgery Pager: [phone] 01/14/2021 8:30 AM documented in this encounter [...] present for the entire procedure. MD NATALIE Becerril/[place].[id number] Doc ID: [id number] Job ID: [id number] * Brief Op Note - Magan Barajas [...] in ~2 wks (appointment scheduled for 01/25). custodial follow-up for recurrent nephrolithiasis in setting of [...] QUANT Routine 01/14/2021 1:17 PM CDT Nephrolithiasis NV CYSTO/URETERO/PYEL OSCOPY W/LITHOTRIPSY 01/14/2021 12:47 PM CDT Right nephrolithiasis Special Needs [id number] / Reviewed SM OVID 01/11/2021 @9AM [facility] HCG URINE QUALITATIVE - POCT (IP) INTERFACED Routine 01/14/2021 8:18 AM CDT HCG URINE QUAL POCT NOTIFICATION STAT 01/14/2021 8:09 AM CDT Preop examination URINALYSIS NO MICROSCOPIC NO CULTURE STAT 01/14/2021 8:05 AM CDT Preop examination documented in this encounter Results * PATHOLOGY TISSUE (01/14/2021 1:17 PM CDT) Case Report Surgical Pathology Report ? Case: [id number] ? Authorizing Provider: ??Miller Zamora MD ?Collected: ? 01/14/2021 01:17 PM ? Ordering Location: ? [facility] ?Received: ?01/14/2021 03:03 PM ? Pathologist: ? Tammy Brunson MD ? Specimen: ?Calculus, Right ureter calculus ? 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 01/21/2021 9:46 AM [facility] Gross Description The requisition and specimen label(s) are identified with the patient's name, Alysha Jolley. Received fresh, specimen A , right ureter calculus are multiple shelby yellow-brown firm stones measuring 0.1-0.3 cm in greatest dimension. This specimen is for chemical examination only. 01/21/2021 9:46 AM [facility] Disclaimer The performance characteristics of all immunohistochemical and indirect immunofluorescence stains (if any) cited in this report were determined by the Histopathology Laboratory of [facility]. Some of these tests were developed by [...] (teaching) pathologist. 01/21/2021 9:46 AM CDT [facility] Embedded Images 01/21/2021 9:46 AM CDT [facility] Gross only CALCULUS SPECIMEN / Unknown 01/14/2021 1:17 PM CDT 01/14/2021 3:03 PM CDT Comment:Pre-op diagnosis: Right nephrolithiasis Miller Zamora MD LAB - PATHOLOGY/CY TOLOGY ORDERABLES Performing Organization Address City/State/[facility] Co de Phone Number [facility] [address] [phone] * STONE ANALYSIS QUANT (01/14/2021 1:17 PM CDT) Calculi Composition See Note 01/28/2021 3:57 PM CDT [facility]) Comment: Calculi composed primarily of: 70% [...] composition determined by FTIR analysis. Performed By: [facility] [address] [place] [address] Nursery Attendant: Marisol Velázquez MD Calculi Mass 25 mg 01/28/2021 3:57 PM CDT [facility] ([facility]) Calculi Number 4 01/28/2021 3:57 PM CDT [facility] ([facility]) Calculi Size Various mm 01/28/2021 3:57 PM CDT [facility] Calculi Description See Note 01/28/2021 3:57 PM CDT [facility] ([facility]) Comment: Specimen consists of four, various sized (1 mm to 9 mm), shelby/white, irregular calculi fragments. Pathology/Cytolo gy CALCULUS SPECIMEN / Unknown Collection / Unknown 01/14/2021 1:17 PM CDT 01/25/2021 10:18 AM CDT Miller Zamora MD LAB - URINE CHEMIS TRY ORDERABLES [facility]) [address] [place] [address], [facility] * HCG URINE QUALITATIVE - POCT (IP) INTERFACED (01/14/2021 8:18 AM CDT) HCG Qual Urine Negative Negative 01/14/2021 8:25 AM CDT [facility] Urine URINE / Unknown 01/14/2021 8 :18 AM CDT 01/14/2021 8:25 AM CDT Miller Zamora MD LAB - POINT OF CAR E ORDERABLES Performing Organization Address [facility]/ZIP Co de Phone Number [address] [address], [place] [phone] * HCG URINE QUAL POCT NOTIFICATION (01/14/2021 8:09 AM CDT) Comment Notification Label Only - See Separate Report 01/14/2021 9:30 AM CDT [facility] Urine URINE / Unknown 01/14/2021 8 :09 AM CDT 01/14/2021 8:09 AM CDT Miller Zamora MD LAB - URINALYSIS O RDERABLES Performing Organization Address City/[facility]/ZIP Co de Phone Number [address] [address], [place] [phone] * (ABNORMAL) URINALYSIS NO MICROSCOPIC NO CULTURE (01/14/2021 8:05 AM CDT) Color UA Yellow Straw, Yellow, Colorless 01/14/2021 10:05 AM [facility] Clarity UA Cloudy(A) Clear, [facility] Cloudy 01/14/2021 10:05 AM [facility] Specific Pearson UA 1.023 1.005 - 1.030 01/14/2021 10:05 AM [facility] pH UA 5.0 5.0 - 8.0 pH 01/14/2021 10:05 AM [facility] Protein UA 2+(A) Negative mg/dL 01/14/2021 10:05 AM [facility] Glucose UA Negative Negative mg/dL 01/14/2021 10:05 AM [facility] Ketone UA Negative Negative mg/dL 01/14/2021 10:05 AM [facility] Bilirubin UA Negative Negative mg/dL 01/14/2021 10:05 AM [facility] Blood UA 3+(A) Negative 01/14/2021 10:05 AM [facility] Nitrite UA Negative Negative 01/14/2021 10:05 AM [facility] Leukocyte Esterase 2+(A) Negative 01/14/2021 10:05 AM [facility] Urobilinogen UA Negative Negative mg/dL 01/14/2021 10:05 AM [facility] Urine URINE SPECIMEN OBTAINED BY CLEAN CATCH PROCEDURE / Unknown Collection / Unknown 01/14/2021 8:05 AM [facility] 01/14/2021 9:53 AM [facility] Narrative [facility] - 01/14/2021 10:05 AM [facility] Paras Han MD LAB - URINALYSIS ORD ERABLES [facility] [address] [place] [address], [facility] [phone] documented in this encounter Visit Diagnoses Diagnosis [...] ($ Given - Prov ider: Caroline Santoro, COLLET DRILLER-REGISTERED DENTAL HYGIENIST) diphenhydrAMINE (Benadryl) injection 25 mg 25 mg, [...] Pre-op documented in this encounter Care Teams Care Management Coordinator Relationship Specialty Start Date End Date Rema Austin MD [address] [place] [phone] PCP - General Family Medicine 11/24/20 02/20/21 documented as of this encounter
--- OUTSIDE RECORDS SUMMARY | 2024-09-25 20:06 | XMS_ITS | Encounter Summary ---
Author Organization [facility] Address [address] [facility] [place] [address] Care Team Providers Care Watershed Manager Name Role Phone Rema Austin MD Primary Care Provider Encounter Details Date Type Department Care Team (Latest Contact Info) Description 12/31/2020 12:00 PM CDT - 12/31/2020 11:59 PM CDT Hospital Encounter [facility] PAT [address] [place] [phone] Miller Zamora MD [address] [facility] 2L DIV [place] [phone] Discharge Disposition: Home or Self Care Anesthesia [...] for Pain 30 tablet 03/15/2019 albuterol HFA (PROVENTIL;VENTOLIN;MS OAIR) 108 (90 BASE) MCG/ACT inhaler Inhale [...] 10.5 10? 3 /uL 12/31/2020 1:45 PM [facility] RBC 4.37 3.90 - 5.00 10? 6 /uL 12/31/2020 1:45 PM [facility] Hemoglobin 11.4(L) 12.0 - 15.5 g/dL 12/31/2020 1:45 PM [facility] Hematocrit 35.0 35.0 - 45.0 % 12/31/2020 1:45 PM [facility] MCV 80.1(L) 81.0 - 97.0 fL 12/31/2020 1:45 PM [facility] MCH 26.1(L) 28.0 - 34.0 pg 12/31/2020 1:45 PM [facility] MCHC 32.6 32.0 - 36.0 g/dL 12/31/2020 1:45 PM [facility] Platelet Count 327 150 - 400 10? 3 /uL 12/31/2020 1:45 PM [facility] RDW-SD 47.9 36.0 - 50.0 fL 12/31/2020 1:45 PM [facility] RDW-CV 16.6(H) 11.2 - 14.8 % 12/31/2020 1:45 PM [facility] MPV 9.7 9.3 - 12.8 fL 12/31/2020 1:45 PM [facility] nRBC Absolute 0.00 0 10? 3 /uL 12/31/2020 1:45 PM [facility] nRBC Auto 0.0 0 /100 WBC 12/31/2020 1:45 PM [facility] Blood BLOOD SPECIMEN / Unknown Lab Venipuncture / Unknown 12/31/2020 12:46 PM CDT 12/31/2020 1:28 PM CDT Parish Taylor ENGRAVER SET UP OPERATOR-VENEER DRIER TAILER LAB - HEMATOL OGY ORDERABLES [facility] [address] [place] [address], [facility] [phone] * BASIC METABOLIC PANEL (CALCIUM TOTAL) (12/31/2020 12:46 PM CDT) BUN 8 7 - 26 mg/dL 12/31/2020 2:05 PM [facility] Creatinine 0.7 0.6 - 1.2 mg/dL 12/31/2020 2:05 PM [facility] Sodium 138 136 - 145 mmol/L 12/31/2020 2:05 PM [facility] Potassium 3.8 3.5 - 4.5 mmol/L 12/31/2020 2:05 PM [facility] Chloride 106 98 - 107 mmol/L 12/31/2020 2:05 PM [facility] CO2 24 22 - 29 mmol/L 12/31/2020 2:05 PM [facility] Glucose 78 70 - 115 mg/dL 12/31/2020 2:05 PM [facility] Calcium 8.5 8.4 - 10.2 mg/dL 12/31/2020 2:05 PM [facility] Anion Gap 12 8 - 18 12/31/2020 2:05 PM [facility] BUN/Creatinine Ratio 11 7 - 23 12/31/2020 2:05 PM [facility] Osmolality Calculated 283 270 - 300 mOsm/kg 12/31/2020 2:05 PM [facility] eGFR >60 >60 mL/min/1.7 3 m2 12/31/2020 2:05 PM [facility] Blood BLOOD SPECIMEN / Unknown Lab Venipuncture / Unknown 12/31/2020 12:46 PM CDT 12/31/2020 1:28 PM CDT Pairsh Taylor ENGRAVER SET UP OPERATOR-VENEER DRIER TAILER LAB - CARDIAC NURSE PRACTITIONER RY ORDERABLES Performing Organization Address City/State/[facility] Co de Phone Number [address] [address] [phone] documented in this encounter Visit Diagnoses Diagnosis Pre-op evaluation- Primary Preoperative examination, unspecified documented in this encounter Care Teams Watershed Manager Relationship Specialty Start Date End Date Rema Austin MD [address] [place] [address] [place] [phone] PCP - General Family Medicine 11/24/20 02/20/21 documented as of this encounter
--- OUTSIDE RECORDS SUMMARY | 2024-09-25 20:06 | XMS_ITS | Encounter Summary ---
Author Organization [facility] Address [address] [place] [address] Care Team Providers Care Slot Machine Mechanic Name Role Phone Rachel Citlaly GU[place] Primary Care Provider [phone] Miller Zamora MD Unavailable [phone] Reason for Visit * Reason Onset Date Comments MEDICATION REFILL 07/03/2021 Encounter Details Date Type Department Care Team (Late st Contact Info) Description 07/03/2021 Refill [facility] - Family Medicine [address] [place] [address] Citlaly Ramos DO [address] [facility] [address] [place] [address] MEDICATION REFILL Social History Tobacco [...] disorder documented in this encounter Care Teams Slot Machine Mechanic Relationship Specialty Start Date End Date Citlaly Ramos DO [address] [place] [phone] PCP - General Family Medicine 02/21/21 Miller Zamora MD [address] [place] [address] Urology 02/21/21 documented as of this encounter
--- OUTSIDE RECORDS SUMMARY | 2024-09-25 20:06 | XMS_ITS | Encounter Summary ---
Author Organization [facility] Address [address] [facility] [place] [address] Care Team Providers Care Bromination Equipment Operator Name Role Phone Rema Austin MD Primary Care Provider [phone] Reason for Visit * Reason Onset Date Comments Results 01/02/2021 Encounter Details Date Type Department Care Team (Late st Contact Info) Description 01/02/2021 Telephone [facility] [address] [place], [place] [phone] Candice Mcfadden, RN Results Social History Tobacco [...] on filedocumented in this encounter Care Teams Bromination Equipment Operator Relationship Specialty Start Date End Date Rema Austin MD [address] [place] [address] PCP - General Family Medicine 11/24/20 02/20/21 documented as of this encounter
--- OUTSIDE RECORDS SUMMARY | 2024-09-25 20:06 | XMS_ITS | Encounter Summary ---
Author Organization [facility] Address [address] [place] [address] Care Team Providers Care Protective Signal Operations Supervisor Name Role Phone Citlaly Ramos Primary Care Provider [phone] Miller Zamora MD Unavailable [phone] Encounter Details Date Type Department Care Team (Late st Contact Info) Description 02/21/2021 Orders Only [facility] - Family Medicine [address] [place] [address] iLbby Giang RN Anemia, unspecified type Social History [...] Agency Comment Lab Testing performed at: [facility] [address] ?? [facility] [id number] Citlaly Ramos DO LAB - CHEMISTRY JOANNA YUNG Performing Organization Address City/State/[facility] Co de Phone Number [facility] ACCOUNT BILL [address] [place] [address] * (ABNORMAL) IRON + TIBC PANEL (07/01/2021 [...] Agency Comment Lab Testing performed at: [facility] [address] [place] [address] Road ??[facility] [id number] Citlaly Ramos DO LAB - CHEMISTRY JOANNA YUNG [facility] ACCOUNT BILL [address] [place] [address] * FERRITIN (07/01/2021 2:36 PM CDT) Ferritin 8 5 - 204 ng/mL [facility] ACCOUNT BILL Blood BLOOD SPECIMEN / Unknown 07/01/2021 2:36 PM CDT 07/01/2021 Narrative Resulting Agency Comment Lab Testing performed at: [facility] [address] ?? [facility] [id number] Citlaly Ramos DO LAB - CHEMISTRY JOANNA YUNG [facility] ACCOUNT BILL [address] [place] [address] documented in this encounter Visit Diagnoses Diagnosis Anemia, unspecified type- Primary documented in this encounter Care Teams Protective Signal Operations Supervisor Relationship Specialty Start Date End Date Citlaly Ramos DO [address] [place] [phone] PCP - General Family Medicine 02/21/21 Miller Zamora MD [address] [place] [address] Urology 02/21/21 documented as of this encounter
--- OUTSIDE RECORDS SUMMARY | 2024-09-25 20:06 | XMS_ITS | Encounter Summary ---
Author Organization [facility] Address [address] [facility] [place] [address] Care Team Providers Care Shank Rander Name Role Phone Rema Austin MD Primary Care Provider [phone] Encounter Details Date Type Department Care Team (Latest Contact Info) Description 01/12/2021 2:25 PM CDT - 01/12/2021 11:59 PM CDT Hospital Encounter [facility] [address] [place] [phone] Miller Zamora MD [address] [facility] 2L [place] [phone] Discharge Disposition: Home or Self Care Social [...] for Pain 30 tablet 03/15/2019 albuterol HFA (PROVENTIL;VENTOLIN;ND OAIR) 108 (90 BASE) [...] detected Not detected 01/12/2021 9:[address] [facility] Microbiology SPECIMEN FROM NASOPHARYNGEAL STRUCTURE / Unknown Collection / Unknown 01/12/2021 2:06 PM CDT 01/12/2021 2:26 PM CDT Narrative [facility] - 01/12/2021 9:23 PM CDT This nucleic acid amplification assay performance was validated by [facility]. This test has been [...] LAB - MICROBIOLOGY ORDERABLES Performing Organization Address City/State/[facility] Co de Phone Number [facility] [address] [place] [address] [phone] documented in this encounter Visit Diagnoses Diagnosis Nephrolithiasis Calculus of kidney Pre-op testing Preoperative examination, unspecified documented in this encounter Additional Health Concerns Infection Onset Date Last Indicated Resolved Time COVID-19 Under Investigation 01/12/2021 01/12/2021 01/12/2021 9:23 PM CDT documented as of this encounter Care Teams Shank Rander Relationship Specialty Start Date End Date Rema Austin MD [address] [place] [address] [place] [address] PCP - General Family Medicine 11/24/20 02/20/21 documented as of this encounter
--- OUTSIDE RECORDS SUMMARY | 2024-09-25 20:06 | XMS_ITS | Encounter Summary ---
Author Organization [facility] Address [address] [facility] [place] [address] Care Team Providers Care Boat Camp Operator Name Role Phone Rema Austin MD [...] on filedocumented in this encounter Care Teams Boat Camp Operator Relationship Specialty Start Date End Date Rema Austin MD [address] [place] [address] [place] [phone] PCP - General Family Medicine 11/24/20 02/20/21 documented as of this encounter
--- OUTSIDE RECORDS SUMMARY | 2024-09-25 20:06 | XMS_ITS | Encounter Summary ---
Author Organization [facility] Address [address] [place] [address] Care Team Providers Care Diesel Engine Specialist Name Role Phone Rema Austin MD Primary Care Provider [phone] Reason for Visit * Auth/Cert Specialty Diagnoses / Procedures Referred By Norm benjamin Referred To Contact Diagnoses Right nephrolithiasis Right nephrolithiasis Procedures CYSTOSCOPY WITH RETROGRADE PYELOGRAM CYSTOSCOPY URETEROSCOPY WITH LASER/HOLMIUM LITHOTRIPSY Referral ID Status Reason Start Date Expiration Date Visits Re quested Visits Authorized [id number] 1 1 Encounter Details Date Type Department Care Team (Latest Contact Info) Description 01/14/2021 7:28 AM CDT - 01/14/2021 4:30 PM CDT Hospital Encounter [facility] [address] [place] [phone] Miller Zamora MD [address] [facility] 2L [place] [phone] Surgery Urology Discharge Disposition: Home or Self [...] the recovery process, please contact [facility] Urology at [phone] during regular business hours. On weekends or in the evening, please contact [facility] Hospitalat [phone] and ask for whoever is pullman conductor for Urology. Follow Up A follow up appointment with Dr. Zamora for cystoscopy and removal of the ureteral stent has beenscheduled on your behalf. - Appointment date and time: Monday January 25, 2021 at 11:30 AM - Location: [facility] in [place] (address is [address], [address]) If you need to change or cancel your appointment, please call [phone]. You may return to work 01/21/2021 Ureteral [...] refuse treatment. The above information is an residential aide only. It is not intended as medical advice for individual conditions or treatments. Talk to your doctor, nurse or pharmacist before following any medical regimen to see if it is safe and effective for you. ?? Copyright [employer] 2019 Information is for End User's use only and may not be sold, redistributed or otherwise used for commercial purposes. All illustrations and images included in CareNotes?? are the copyrighted property of [employer]. or [employer] Ureteroscopy WHAT YOU NEED TO KNOW: A [...] ask them during your visits. ?? Copyright [employer] 2020 Information is for End User's use only and may not be sold, redistributed or otherwise used for commercial purposes. All illustrations and images included in CareNotes?? are the copyrighted property of [employer] or [employer] The above information is an residential aide only. It is not intended as [...] for Pain 30 tablet 03/15/2019 albuterol HFA (PROVENTIL;VENTOLIN;MD OAIR) 108 (90 BASE) MCG/ACT inhaler Inhale [...] this encounter H&P Notes * Adriane Brown, NEELAM-ESCORT BLIND - 01/14/2021 8:29 AM CDT [facility] Division of Urologic Surgery Pre-Operative H&P Miller Zamora MD Today's Date: 01/14/2021 Patient Name: Alysha Jolley : 1990 No chief complaint on file. Lab 12/31/2020-[facility] COVID 01/11/2021 @9AM [facility] Pre-op urine culture arranged for 12/31/2020-[facility] COVID screen on 01/11/2021 9AM HISTORY OF [...] patient presented on November 24, 2020 to [facility] with right pelvic pain and [...] orders on 12/20/2020 and faxed them to [facility] to have a UA and culture completed. Urine Culture of 12/28: Growth of mixed marco was isolated, suggesting probable contamination. Urine Culture of 12/31 (taken at [facility]): Culture Urine 10,000-50,000 CFU/mL urogenital marco Covid-19 Testing completed? On 01/12/2021: not detected Any use of anti-platelet or anti-coagulant medications within the past 7 days? None according to patient Patient did not complete the antibiotics prescribed for her after her last hospitalization, but [facility] recent urine culture was negative. PAST [...] Gatherings with Friends and Family: ??? Attends Adventism Services: ??? Active Member of Clubs or [...] Ref Range: Clear, Slt Cloudy Clear Specific Shiloh UA Latest Ref Range: 1.005 - 1.030 [...] to proceed with above surgery. FLOR Scott METAL SPINNER, Division of Urologic Surgery Pager: [phone] 01/14/2021 8:30 AM documented in this encounter [...] and difficult for stent placement, but a 4.8-Guamanian stent was able to be navigated across [...] present for the entire procedure. MD CRISS Becerril/[email or web address].[id number] Doc ID: [id number] Job ID: [id number] * Brief Op Note - Magan Barajas [...] in ~2 wks (appointment scheduled for 01/25). correction follow-up for recurrent nephrolithiasis in setting of [...] QUANT Routine 01/14/2021 1:17 PM CDT Nephrolithiasis MD CYSTO/URETERO/PYEL OSCOPY W/LITHOTRIPSY 01/14/2021 12:47 PM CDT Right nephrolithiasis Special Needs Laser Fortec# [id number] / Reviewed SM 5/5COVID 01/11/2021 @9AM [facility] HCG URINE QUALITATIVE - POCT (IP) INTERFACED Routine 01/14/2021 8:18 AM CDT HCG URINE QUAL POCT NOTIFICATION STAT 01/14/2021 8:09 AM CDT Preop examination URINALYSIS NO MICROSCOPIC NO CULTURE STAT 01/14/2021 8:05 AM CDT Preop examination documented in this encounter Results * PATHOLOGY TISSUE (01/14/2021 1:17 PM CDT) Case Report Surgical Pathology Report ? Case: [id number] ? Authorizing Provider: ??Miller Zamora MD ?Collected: ? 01/14/2021 01:17 PM ? Ordering Location: ? [facility] ?Received: ?01/14/2021 03:03 PM ? Pathologist: ? Tammy Brunson MD ? Specimen: ?Calculus, Right ureter calculus ? 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 01/21/2021 9:46 AM [facility] PATHOLOGY LAB Gross Description The requisition and specimen label(s) are identified with the patient's name, Alysha Jolley. Received fresh, specimen A , right ureter calculus are multiple shelby yellow-brown firm stones measuring 0.1-0.3 cm in greatest dimension. This specimen is for chemical examination only. 01/21/2021 9:46 AM [facility] PATHOLOGY LAB Disclaimer The performance characteristics of all immunohistochemical and indirect immunofluorescence stains (if any) cited in this report were determined by the Histopathology Laboratory of [facility]. Some of these tests were developed [...] pathologist. 01/21/2021 9:46 AM CDT [facility] PATHOLOGY LAB Embedded Images 01/21/2021 9:46 AM CDT [facility] PATHOLOGY LAB Gross only CALCULUS SPECIMEN / Unknown 01/14/2021 1:17 PM CDT 01/14/2021 3:03 PM CDT Comment:Pre-op diagnosis: Right nephrolithiasis Miller Zamora MD LAB - PATHOLOGY/CY TOLOGY ORDERABLES [facility] PATHOLOGY LAB [address] [phone] * STONE ANALYSIS QUANT (01/14/2021 1:17 PM CDT) Calculi Composition See Note 01/28/2021 3:57 PM CDT [employer] ([facility]) Comment: Calculi composed primarily of: 70% calcium [...] composition determined by FTIR analysis. Performed By: [employer] [address] [place] [address] Internet Sales Director: Marisol Velázquez MD Calculi Mass 25 mg 01/28/2021 3:57 PM CDT [employer] ([facility]) Calculi Number 4 01/28/2021 3:57 PM CDT [employer] ([facility]) Calculi Size Various mm 01/28/2021 3:57 PM CDT [facility] ([facility]) Calculi Description See Note 01/28/2021 3:57 PM CDT [facility] [employer] ([facility]) Comment: Specimen consists of four, various sized (1 mm to 9 mm), shelby/white, irregular calculi fragments. Pathology/Cytolo gy CALCULUS SPECIMEN / Unknown Collection / Unknown 01/14/2021 1:17 PM CDT 01/25/2021 10:18 AM CDT Miller Zamora MD LAB - URINE CHEMIS TRY ORDERABLES [employer] ([facility]) [address] [place] [place], [place] [id number] [place] [address] * [facility] URINE QUALITATIVE - POCT (IP) INTERFACED (01/14/2021 8:18 AM CDT) HCG Qual Urine Negative Negative 01/14/2021 8:25 AM CDT [facility] Urine URINE / Unknown 01/14/2021 8 :18 AM CDT 01/14/2021 8:25 AM CDT Miller Zamora MD LAB - POINT OF CAR E ORDERABLES [address] [address], [place] [phone] * HCG URINE QUAL POCT NOTIFICATION (01/14/2021 8:09 AM CDT) Comment Notification Label Only - See Separate Report 01/14/2021 9:30 AM CDT [facility] Urine URINE / Unknown 01/14/2021 8 :09 AM CDT 01/14/2021 8:09 AM CDT Miller Zamora MD LAB - URINALYSIS O RDERABLES [address] [address], [place] [phone] * (ABNORMAL) URINALYSIS NO MICROSCOPIC NO CULTURE (01/14/2021 8:05 AM CDT) Color UA Yellow Straw, Yellow, Colorless 01/14/2021 10:05 AM CDT [facility] Clarity UA Cloudy(A) Clear, Slt Cloudy 01/14/2021 10:05 AM CDT [facility] Specific Shiloh UA 1.023 1.005 - 1.030 01/14/2021 10:05 AM T [facility] pH UA 5.0 5.0 - 8.0 pH 01/14/2021 10:05 AM T [facility] Protein UA 2+(A) Negative mg/dL 01/14/2021 10:05 AM T [facility] Glucose UA Negative Negative mg/dL 01/14/2021 [...] 01/14/2021 8:05 AM T 01/14/2021 9:53 AM [facility] Narrative [facility] - 01/14/2021 10:05 AM [facility] Paras Han MD LAB - URINALYSIS ORD ERABLES Performing Organization Address City/State/[facility] Co de Phone Number [facility] [address] [place] [address], [facility] [phone] documented in this encounter Visit Diagnoses Diagnosis [...] ($ Given - Prov ider: Caroline Santoro, TEMPERATURE INSPECTOR-LORRY WEIGHER) diphenhydrAMINE (Benadryl) injection 25 mg 25 mg, [...] Pre-op documented in this encounter Care Teams Diesel Engine Specialist Relationship Specialty Start Date End Date Rema Austin MD [address] [place] [address] PCP - General Family Medicine 11/24/20 02/20/21 documented as of this encounter
--- OUTSIDE RECORDS SUMMARY | 2024-09-25 20:06 | XMS_ITS | Encounter Summary ---
Author Organization [facility] Address [address] [place] [address] Care Team Providers Care Eyeglass Cutter Name Role Phone Rema Austin MD Primary Care Provider [phone] Reason for Visit * Reason Onset Date Comments Follow-up 12/31/2020 Encounter Details Date Type Department Care Team (Late st Contact Info) Description 12/31/2020 Telephone [facility] [address] [place] [address] Candice Mcfadden, RN Follow-up Social [...] on filedocumented in this encounter Care Teams Eyeglass Cutter Relationship Specialty Start Date End Date Rema Austin MD [address] [place] [address] PCP - General Family Medicine 11/24/20 02/20/21 documented as of this encounter
--- OUTSIDE RECORDS SUMMARY | 2024-09-25 20:06 | XMS_ITS | Encounter Summary ---
Author Organization [facility] Address [address] [facility] [place] [address] Care Team Providers Care Nurse First Assist Name Role Phone Rema Austin MD Primary Care Provider [phone] Encounter Details Date Type Department Care Team [...] documented as of this encounter Care Teams Nurse First Assist Relationship Specialty Start Date End Date Rema Austin MD [address] [place] [phone] PCP - General Family Medicine 11/24/20 02/20/21 documented as of this encounter
--- OUTSIDE RECORDS SUMMARY | 2024-09-25 20:06 | XMS_ITS | Encounter Summary ---
Author Organization [facility] Address [address] [place] [address] Care Team Providers Care Foreign Clerk Name Role Phone Citlaly Ramos Primary Care Provider [phone] Miller Zamora MD Unavailable [phone] Reason for Visit * Reason Comments Well Women Exam Encounter Details Date Type Department Care Team (Late st Contact Info) Description 07/01/2021 2:00 PM CDT Office Visit [facility] - FUSION ANALYST [address] [place] [address] Darryl Starr DO [address] [place] [phone] Well woman exam (Primary Dx); Renal stone; [...] has no gynecological issues or concerns. Past AUTOMOTIVE ALIGNMENT SPECIALIST History: History of cervical dysplasia:none History of [...] Sexual Activity Not on file Other pertinent AUTOMOTIVE ALIGNMENT SPECIALIST history: Denies breast pain, discharge, skin changes, [...] developed and its performance characteristics determined by [employer]. ??It has not been cleared or approved [...] BILL - 07/04/2021 11:06 PM CDT Test(s) 555530-Mxtvcxr albicans, JOSHUA; 895254-Fgbhgof glabrata, JOSHUA was developed and its performance characteristics determined by [employer]. It has not been cleared or approved by the Food and Drug Administration. Resulting Agency Comment Lab Testing performed at: [address] ??[place] [phone] Darryl Starr DO LAB - MICROBIOLOGY O RDERABLES [facility] INSURANCE BILL [address] [place] [address] * PAP IG LB RFLX HPV APTIMA ASCU (07/01/2021 4:04 PM CDT) Diagnosis [facility] INSURANCE BILL Comment: NEGATIVE FOR INTRAEPITHELIAL LESION OR MALIGNANCY. TRICHOMONAS VAGINALIS IS PRESENT. Specimen Adequacy [facility] INSURANCE BILL Comment: Satisfactory for evaluation. ??Endocervical and/or squamous metaplastic cells (endocervical component) are present. Clinician Provided ICD10 [facility] INSURANCE BILL Comment: Z01.419 N20.0 N76.1 Performed by [facility] INSURANCE BILL Comment:Libby montgomery, Gas Charger (ASCP) Comment . [facility] INSURANCE BILL Note [...] use of an image guided system. Note [facility] INSURANCE BILL Comment: The HPV DNA reflex criteria were not met with this specimen result therefore, no HPV testing was performed. ? . Pathology/Cytolog y PART OF UTERINE CERVIX / Unknown 07/01/2021 4:04 PM CDT 07/02/2021 Narrative [facility] INSURANCE BILL - 07/03/2021 5:08 PM CDT No. of containers..01 [employer] Vial Resulting Agency Comment Lab Testing performed at: [address] ??[place] [id number] Darryl Starr DO LAB - PATHOLOGY/CYTO LOGY ORDERABLES [facility] INSURANCE BILL [address] [place] [address] documented in this encounter Visit Diagnoses Diagnosis Well woman exam- Primary Routine general medical examination at a health care facility Renal stone Calculus of kidney Subacute vaginitis documented in this encounter Care Teams Foreign Clerk Relationship Specialty Start Date End Date Ctilaly Ramos DO [address] [place] [phone] PCP - General Family Medicine 02/21/21 Miller Zamora MD [address] [place] [address] Urology 02/21/21 documented as of this encounter
--- OUTSIDE RECORDS SUMMARY | 2024-09-25 20:06 | XMS_ITS | Encounter Summary ---
Author Organization [facility] Health Address [address] [facility] [place] [address] Care Team Providers Care Production Quality Manager Name Role Phone Citlaly Ramos DO Primary Care Provider [phone] Miller Zamora MD Unavailable [phone] Reason for Visit * Reason Comments Refill Request Encounter Details Date Type Department Care Team (Late st Contact Info) Description 07/01/2021 Refill [facility] - Family Medicine [address] [facility] [place] [address] Citlaly Ramos DO [address] [facility] [address] [place] [address] Refill Request Social History Tobacco [...] disorder documented in this encounter Care Teams Production Quality Manager Relationship Specialty Start Date End Date Citlaly Ramos DO [address] [place] [phone] PCP - General Family Medicine 02/21/21 Miller Zamora MD [address] [place] [phone] Urology 02/21/21 documented as of this encounter
--- OUTSIDE RECORDS SUMMARY | 2024-09-25 20:07 | XMS_ITS | Encounter Summary ---
Author Organization [facility] Health Address [address] [facility] [facility] [place] [address] Care Team Providers Care Narcotics And Vice Detective Name Role Phone Rema Austin MD Primary Care Provider [phone] Reason for Visit * Reason Onset Date Comments Surgical Follow-up 11/28/2020 KIDNEY STONE 11/28/2020 Encounter Details Date Type Department Care Team (Late st Contact Info) Description 11/28/2020 Telephone [facility] [address] [place], [place] [phone] Lisa Madsen RN Surgical Follow-up; KIDNEY STONE Social [...] on filedocumented in this encounter Care Teams Narcotics And Vice Detective Relationship Specialty Start Date End Date Rema Austin MD [address] [place] [address] PCP - General Family Medicine 11/24/20 02/20/21 documented as of this encounter
--- OUTSIDE RECORDS SUMMARY | 2024-09-25 20:07 | XMS_ITS | Encounter Summary ---
Author Organization [facility] Address [address] [facility] [place] [address] Care Team Providers Care Client Care Manager Name Role Phone Rema Austin MD Primary Care Provider [phone] Encounter Details Date Type Department Care Team (Latest Contact Info) Description 12/31/2020 11:15 AM CDT - 12/31/2020 11:59 AM CDT Hospital Encounter [facility] LAB OP DRAW STATION [address] [place] [phone] Discharge Disposition: Home or Self Care [...] for Pain 30 tablet 03/15/2019 albuterol HFA (PROVENTIL;VENTOLIN;[place] OAIR) 108 (90 BASE) MCG/ACT inhaler Inhale [...] Clear, t Cloudy 12/31/2020 1:52 PM CDT [facility] Specific [place] UA 1.016 1.005 - 1.030 12/31/2020 1:52 PM CDT [facility] pH UA 7.0 5.0 - 8.0 pH 12/31/2020 1:52 PM CDT [facility] Protein UA 1+(A) Negative mg/dL 12/31/2020 1:52 PM CDT [facility] Glucose UA Negative Negative mg/dL 12/31/2020 1:52 PM CDT [facility] Ketone UA Negative Negative mg/dL 12/31/2020 1:52 PM CDT [facility] Bilirubin UA Negative Negative mg/dL 12/31/2020 1:52 PM CDT [facility] Blood UA 2+(A) Negative 12/31/2020 1:52 PM CDT [facility] Nitrite UA Negative Negative 12/31/2020 1:52 PM CDT [facility] Leukocyte Esterase 1+(A) Negative 12/31/2020 1:52 PM CDT [facility] Urobilinogen UA Negative Negative mg/dL 12/31/2020 1:52 PM CDT [facility] Urine URINE SPECIMEN OBTAINED BY CLEAN CATCH PROCEDURE / Unknown Collection / Unknown 12/31/2020 12:46 PM CDT 12/31/2020 1:28 PM CDT Narrative [facility] - 12/31/2020 1:52 PM CDT Milelr Zamora MD LAB - URINALYSIS O RDERABLES [facility] [address] [place] [address], [facility] [phone] * CULTURE URINE (12/31/2020 12:46 PM CDT) Culture Urine 10,000-50,000 CFU/mL urogenital marco CHRYSTAL 01/02/2021 7:18 AM CDT [facility] MICRO[facility]OLOGY Urine URINE SPECIMEN OBTAINED BY CLEAN CATCH PROCEDURE / Unknown Collection / Unknown 12/31/2020 12:46 PM CDT 12/31/2020 1:59 PM CDT Miller Zamora MD LAB - MICROBIOLOGY ORDERABLES [facility] MICROBIOLOGY [address] [place] [address] [phone] documented in this encounter Visit Diagnoses Diagnosis Dysuria documented in this encounter Care Teams Client Care Manager Relationship Specialty Start Date End Date Rema Austin MD [address] [place] [address] [place] [address] PCP - General Family Medicine 11/24/20 02/20/21 documented as of this encounter
--- OUTSIDE RECORDS SUMMARY | 2024-09-25 20:07 | XMS_ITS | Encounter Summary ---
Author Organization [facility] Address [address] [facility] [place] [address] Care Team Providers Care Laundry Clerk Name Role Phone Rema Austin MD Primary Care Provider [phone] Encounter Details Date Type Department Care Team (Late st Contact Info) Description 12/25/2020 Orders Only [facility] [address] [place] [address] Candice Mcfadden, RN Dysuria Social History Tobacco [...] Straw, Yellow, Colorless 12/31/2020 1:52 PM CDT [facility] Clarity UA Clear Clear, t Cloudy 12/31/2020 1:52 PM CDT [facility] Specific [place] UA 1.016 1.005 - 1.030 12/31/2020 1:52 PM CDT [facility] pH UA 7.0 5.0 - 8.0 pH 12/31/2020 1:52 PM CDT [facility] Protein UA 1+(A) Negative mg/dL 12/31/2020 1:52 PM CDT [facility] Glucose UA Negative Negative mg/dL 12/31/2020 1:52 PM CDT [facility] Ketone UA Negative Negative mg/dL 12/31/2020 1:52 PM CDT [facility] Bilirubin UA Negative Negative mg/dL 12/31/2020 1:52 PM CDT [facility] Blood UA 2+(A) Negative 12/31/2020 1:52 PM CDT [facility] Nitrite UA Negative Negative 12/31/2020 1:52 PM CDT [facility] Leukocyte Esterase 1+(A) Negative 12/31/2020 1:52 PM CDT [facility] Urobilinogen UA Negative Negative mg/dL 12/31/2020 1:52 PM CDT [facility] Urine URINE SPECIMEN OBTAINED BY CLEAN CATCH PROCEDURE / Unknown Collection / Unknown 12/31/2020 12:46 PM CDT 12/31/2020 1:28 PM CDT Narrative [facility] - 12/31/2020 1:52 PM CDT Miller Zamora MD LAB - URINALYSIS O RDERABLES Performing Organization Address City/State/[facility] Co de Phone Number [facility] [address] [place] [address], [facility] [phone] * CULTURE URINE (12/31/2020 12:46 PM CDT) Culture Urine 10,000-50,000 CFU/mL urogenital marco CHRYSTAL 01/02/2021 7:18 AM CDT [facility] MICROBIOLOGY Urine URINE SPECIMEN OBTAINED BY CLEAN CATCH PROCEDURE / Unknown Collection / Unknown 12/31/2020 12:46 PM CDT 12/31/2020 1:59 PM CDT Miller Zamora MD LAB - MICROBIOLOGY ORDERABLES [facility] MICROBIOLOGY [address] [place], [place] [address] [phone] documented in this encounter Visit Diagnoses Diagnosis Dysuria- Primary documented in this encounter Care Teams Laundry Clerk Relationship Specialty Start Date End Date Rema Austin MD [address] [place] [address] [place] [phone] PCP - General Family Medicine 11/24/20 02/20/21 documented as of this encounter
--- OUTSIDE RECORDS SUMMARY | 2024-09-25 20:07 | XMS_ITS | Encounter Summary ---
Author Organization [facility] Health Address [address] [place] [address] Care Team Providers Care Firefighter Type One Name Role Phone Rema Austin MD Primary Care Provider [phone] Encounter Details Date Type Department Care Team (Late st Contact Info) Description 12/28/2020 Orders Only [facility] [address] [place] [address] Miller Zamora MD [address] [place] [id number] Social History Tobacco Use Types Packs/Day Years [...] [facility] Comment: ??CULTURE, URINE, ROUTINE ?Micro Number: ?[id number] ??Test Status: ? Final ??Specimen Source: ?? URINE, CLEAN CATCH ??Specimen Quality: ??Adequate ??Result: ?Growth of mixed marco was isolated, suggesting ? probable contamination. No further testing will ? be performed. If clinically indicated, ? recollection using a method to minimize ? contamination, with prompt transfer to Urine ? Culture Transport Tube, is recommended. REPORT COMMENT: FASTING:NO Test Performed at: [facility] ??[id number] BAIRON GROVER MD 12/28/2020 11:2 8 AM CDT 12/28/2020 11:40 AM CDT Miller Zamora MD LAB - MICROBIOLOGY ORDERABLES [address] [address] * (ABNORMAL) URINALYSIS W/MICROSCOPIC NO CULTURE (12/28/2020 11:28 AM CDT) Color UA DARK YELLOW YELLOW [facility] Appearance CLOUDY(A) CLEAR [facility] Specific [place] UA 1.029 1.001 - 1.035 [facility] pH [...] MUCOUS THREADS [facility] Comment: Test Performed at: [facility] [address] [place], [place] ??[address] MITA SEGURA DO,MPH 12/28/2020 11:2 8 AM CDT 12/28/2020 11:40 AM CDT Miller Zamora MD LAB - URINALYSIS O RDERABLES Performing Organization Address City/State/[facility] Co de Phone Number [facility] [address] [place] [address] documented in this encounter Visit Diagnoses Not on filedocumented in this encounter Care Teams Firefighter Type One Relationship Specialty Start Date End Date Rema Austin MD [address] [place] [phone] PCP - General Family Medicine 11/24/20 02/20/21 documented as of this encounter
--- OUTSIDE RECORDS SUMMARY | 2024-09-25 20:07 | XMS_ITS | Encounter Summary ---
Author Organization [facility] Health Address [address] [address] Care Team Providers Care Sound Assistant Name Role Phone Rema Austin MD Primary Care Provider [phone] Reason for Visit * Reason Onset Date Comments Follow-up 12/20/2020 Encounter Details Date Type Department Care Team (Late st Contact Info) Description 12/20/2020 Telephone [facility] [address] [place] [address] Candice Mcfadden, RN Follow-up Social [...] Nurse entered orders and faxed them to [facility]. Patient to have UA and culture completed [...] on filedocumented in this encounter Care Teams Sound Assistant Relationship Specialty Start Date End Date Rema Austin MD [address] [place] [address] [place] [phone] PCP - General Family Medicine 11/24/20 02/20/21 documented as of this encounter
--- OUTSIDE RECORDS SUMMARY | 2024-09-25 20:07 | XMS_ITS | Encounter Summary ---
Author Organization [facility] Health Address [address] [place] [address] Care Team Providers Care Laundry Equipment Operator Name Role Phone Rema Austin MD Primary Care Provider [phone] Encounter Details Date Type Department Care Team (Late st Contact Info) Description 12/20/2020 Orders Only [facility] [address] [place] [address] Candice Mcfadden, RN Dysuria Social History Tobacco [...] documented in this encounter Care Teams Laundry Equipment Operator Relationship Specialty Start Date End Date Rema Austin MD [address] [place] [address] [place] [phone] PCP - General Family Medicine 11/24/20 02/20/21 documented as of this encounter
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
--- OUTSIDE RECORDS SUMMARY | 2024-09-25 20:08 | XMS_ITS | Encounter Summary ---
Author Organization [facility] Health Address [address] [place] [address] Care Team Providers Care Life Consultant Name Role Phone Rema Austin MD Primary Care Provider [phone] Encounter Details Date Type Department Care Team (Late st Contact Info) Description 11/25/2020 Orders Only [facility]ERY [address] [place] [phone] Shyam Rodriguez MD Right nephrolithiasis Social History [...] Primary documented in this encounter Care Teams Life Consultant Relationship Specialty Start Date End Date Rema Austin MD [address] [place] [address] [place] [phone] PCP - General Family Medicine 11/24/20 02/20/21 documented as of this encounter
--- OUTSIDE RECORDS SUMMARY | 2024-09-25 20:08 | XMS_ITS | Encounter Summary ---
Author Organization [facility] Health Address [address] [facility] [place] [address] Care Team Providers Care Radio Board Operator Announcer Name Role Phone Rema Austin MD Primary Care Provider [phone] Reason for Visit * Reason Onset Date Comments Surgery Scheduling 11/27/2020 Encounter Details Date Type Department Care Team (Late st Contact Info) Description 11/27/2020 Telephone [facility] [address] [place] [address] Miller Zamora MD [address] [place] [phone] Surgery Scheduling Social History Tobacco Use Types [...] lithotripsy, stone basket extraction, possible stent exchange [53852, 69475, 51028] Right nephrolithiasis [N20.0] - Primary 1992 [id number] NO PAT Lab 12/31/2020-[facility] COVID 01/11/2021 @9AM [facility] SX 01/14/2021 @940AM [facility]# [id number] Letter mailed/Emailed/verbal confirmation Alisha Browning 11/27/2020 2:22 PM documented in this encounter Plan of Treatment Not on file documented as of this encounter Visit Diagnoses Not on filedocumented in this encounter Care Teams Radio Board Operator Announcer Relationship Specialty Start Date End Date Rema Austin MD [address] [place] [address] [place] [phone] PCP - General Family Medicine 11/24/20 02/20/21 documented as of this encounter
--- OUTSIDE RECORDS SUMMARY | 2024-09-25 20:08 | XMS_ITS | Encounter Summary ---
Author Organization [facility] Address [address] [facility] [place] [address] Care Team Providers Care Agriculture Extension Specialist Name Role Phone Rema Austin MD Primary Care Provider [phone] Reason for Visit * Auth/Cert Specialty Diagnoses / Procedures Referred By Norm benjamin Referred To Contact Referral ID Status Reason Start Date Expiration Date Visits Re quested Visits Authorized [id number] 1 1 Encounter Details Date Type Department Care Team (Late st Contact Info) Description 11/24/2020 4:29 PM CDT Anesthesia Event [facility] [address] [place] [address] Nohemi Crowe MD [address] [facility]PART[facility] [place] [address] Marlyn Saunders, UNDERGROUND MINE SUPERINTENDENT-INTERVENTIONAL PAIN PHYSICIAN [address] [place] [phone] Anesthesia Record Procedure Summary Procedure Name Responsible [...] was discussed with the anesthesiologist, resident and INTERVENTIONAL PAIN PHYSICIAN. BMI, Height, Weight Tobacco History Estimated body [...] discussed the anesthesia plan w/ the Resident, INTERVENTIONAL PAIN PHYSICIAN, or AA. The patient agreed with theplan and accepted the risks and benefits. I attest to documenting, updating or reviewing the patient's medications using all immediate resources on the date of the encounter. This list included ALL known prescriptions, zwlz-fyg-wkcnubrp, herbals, and vitamin/mineral/dietary (nutritional) supplements AND contained the medications' name, dosages, frequency, and route of administration. Patient presents today for the above procedure. Will proceed with GA. Additional labs and access asindicated. Nohemi Chirstine documented in this encounter Plan of Treatment Not on file documented as of this encounter Visit Diagnoses Not on filedocumented in this encounter Care Teams Agriculture Extension Specialist Relationship Specialty Start Date End Date Rema Austin MD [address] [place] [address] [place] [phone] PCP - General Family Medicine 11/24/20 02/20/21 documented as of this encounter
--- OUTSIDE RECORDS SUMMARY | 2024-09-25 20:08 | XMS_ITS | Encounter Summary ---
Author Organization [facility] Address [address] [facility] [place] [address] Care Team Providers Care Bookkeeping Assistant Name Role Phone Clinicpc[facility], [facility] Primary Care Provider Unavailable Reason for Visit * Reason Comments Pain Abdominal c/o crampy abd pain x 3 days. recent tx for uti. c/o hematuria x 5 days. Chills, headache, nasal congestion. Encounter Details Date Type Department Care Team (Late st Contact Info) Description 10/10/2016 9:06 AM TELEPHONIC RN - 10/10/2016 12:26 PM TELEPHONIC RN Emergency ER at [facility] [address] [place] [id number] Valente Perez MD [address] [place] [id number] Hematuria; Upper respiratory tract infection, unspecified [...] Comments Blood Pressure 118/73 10/10/2016 11:45 AM TELEPHONIC RN Pulse 92 10/10/2016 12:05 PM TELEPHONIC RN Temperature 36.8 ??C (98.3 ??F) 10/10/2016 8:42 AM CS T Respiratory Rate 24 10/10/2016 12:05 PM TELEPHONIC RN Oxygen Saturation 99% 10/10/2016 12:05 PM TELEPHONIC RN Inhaled Oxygen Concentration - - Weight 87.5 kg (193 lb) 10/10/2016 8:42 AM TELEPHONIC RN Height 162.6 cm (5' 4 ) 10/10/2016 8:42 AM TELEPHONIC RN Body Mass Index 33.13 10/10/2016 8:42 AM TELEPHONIC RN documented in this encounter Functional Status Functional [...] Valente Perez MD - 10/10/2016 12:04 PM TELEPHONIC RN Images from the original note were not [...] Document Reviewed: 11/29/2014 ExitCare?? Patient Information ??2015 [employer]. This information is not intended to replace [...] Document Reviewed: 04/24/2014 ExitCare?? Patient Information ??2015 [employer]. This information is not intended to replace advice given to you by your health care provider. Make sure you discuss any questions you have with your health care provider. PHONIC RN documented in this encounter Medications at Time [...] care reviewed. Prescriptions reviewed. Patient verbalized understanding. PHONIC RN * Madyson Small RN - 10/10/2016 11:44 AM CST patient is resting comfortably. Awaiting for CT scan Results. Will cont to monitor..Madyson Small RN 10/10/2016 11:45 AM PHONIC RN * Madyson Small RN - 10/10/2016 11:00 AM CST Patient to CT - scan. PHONIC RN * Madyson Small RN - 10/10/2016 10:05 AM CST Patient medicated per NOV. PHONIC RN * Madyson Small RN - 10/10/2016 9:51 [...] to monitor..Madyson Small RN 10/10/2016 9:53 AM PHONIC RN * Valente Perez MD - 10/10/2016 9:19 AM CST Provider contact with the patient: 10/10/2016 09:19 Jumana Rivers [id number] [facility] [...] % Lymph 25.7 20.0 - 43.0 % Vilas 11.5 5.0 - 13.0 % Eos 4.6 0.0 - 6.0 % Baso 0.8 0.0 - 2.0 % Immature Grans 0.5 0 - 1 % Neutro Abs 3.57 2.01 - 7.14 x10E9/L Lymph Abs 1.61 1.07 - 3.94 x10E9/L Vilas Abs 0.72 0.26 - 1.07 x10E9/L Eosin [...] Yellow, Dark Yellow Clarity UA Cloudy Specific [place] UA >=1.030 1.005 - 1.030 pH UA [...] with: [facility], [facility] [address] [facility] [address] Schedule an appointment as soon as possible [...] accurate and complete. Ana, 10/10/2016 2:17 PM PHONIC RN documented in this encounter Plan of Treatment Not on file documented as of this encounter Procedures Procedure Name Priority Date/Time Associated Diagnosis Comments CT ABDOMEN PELVIS WO CONTRAST STAT 10/10/2016 11:05 AM TELEPHONIC RN Hematuria HCG URINE QUALITATIVE - POINT OF CARE STAT 10/10/2016 10:38 AM TELEPHONIC RN URINE MICROSCOPIC ONLY REFLEX TO CULTURE STAT 10/10/2016 10:05 AM TELEPHONIC RN URINALYSIS REFLEX MICROSCOPIC REFLEX CULTURE STAT 10/10/2016 10:05 AM TELEPHONIC RN CULTURE URINE STAT 10/10/2016 10:05 AM TELEPHONIC RN CBC W AUTO DIFFERENTIAL STAT 10/10/2016 8:49 AM TELEPHONIC RN COMPREHENSIVE METABOLIC PANEL STAT 10/10/2016 8:49 AM TELEPHONIC RN documented in this encounter Results * CT RENAL STONE PROTOCOL (NO IV AND NO ORAL CONTRAST) (10/10/2016 11:05 AM TELEPHONIC RN) Anatomical Region Laterality Modality Abdomen, Pelvis Computed Tomogra phy 10/10/2016 11:1 4 AM TELEPHONIC RN Impressions 10/10/2016 11:20 AM TELEPHONIC RN IUD in uterine cavity. Negative for mass or fluid collection. Horseshoe kidney with nonobstructing calculi. Narrative 10/10/2016 11:[address] abdomen pelvis. HISTORY: Abdominal pain, UTI, [...] POINT OF CARE (IP) (10/10/2016 10:38 AM TELEPHONIC RN) HCG Qual Urine Negative Negative [facility] POCT TESTING QC Verified Yes Yes [facility] POC T TESTING Urine URINE / Unknown 10/10/2016 1 0:38 AM TELEPHONIC RN Valente Perez MD LAB - POINT OF CARE ORDERABLES Performing Organization Address [facility]/ZIP Co de Phone Number [facility] POCT TESTING [address] [phone] * CULTURE URINE (10/10/2016 10:05 AM TELEPHONIC RN) Culture <10,000 CFU/mL urogenital marco CHRYSTAL 10/11/2016 2:18 PM TELEPHONIC RN [facility] Urine URINE SPECIMEN OBTAINED BY CLEAN CATCH PROCEDURE / Unknown Collection / Unknown 10/10/2016 10:05 AM TELEPHONIC RN 10/10/2016 10:08 AM TELEPHONIC RN Valente Perez MD LAB - MICROBIOLOGY O RDERABLES [facility] [address] [phone] * (ABNORMAL) URINALYSIS MICROSCOPIC ONLY W/REFLEX CULTURE (10/10/2016 10:05 AM TELEPHONIC RN) RBC UA >100(A) 0-2, 2-5 # /hpf 10/10/2016 10:41 AM TELEPHONIC RN [facility] WBC UA 2-5 0-2, 2-5 # /hpf 10/10/2016 10:41 AM TELEPHONIC RN [facility] Bacteria UA None Seen None Seen 10/10/2016 10:41 AM [facility] Epithelial Cell UA 2-5 0-2, 2-5 # /hpf 10/10/2016 10:41 AM [facility] Mucus UA Trace 10/10/2016 10:41 AM [facility] Urine URINE SPECIMEN OBTAINED BY CLEAN CATCH PROCEDURE / Unknown Collection / Unknown 10/10/2016 10:05 AM [facility] 10/10/2016 10:08 AM [facility] Valente Perez MD LAB - URINALYSIS ORD ERABLES [facility] [address] [place] [address] * (ABNORMAL) URINALYSIS ROUTINE W/REFLEX TO CULTURE (10/10/2016 10:05 AM [facility]) Color UA Dulce(A) Straw, Yellow, Dark Yellow 10/10/2016 10:27 AM [facility] Clarity UA Cloudy 10/10/2016 10:27 AM [facility] Specific [place] UA >=1.030 1.005 - 1.030 10/10/2016 10:27 AM [facility] pH UA 6.5 5.0 - 8.0 pH 10/10/2016 10:27 AM [facility] Protein UA 2+(A) Negative 10/10/2016 10:27 AM [facility] Blood UA 3+(A) Negative 10/10/2016 10:27 AM [facility] Leukocyte UA Trace(A) Negative 10/10/2016 10:27 AM [facility] Nitrite UA Negative Negative 10/10/2016 10:27 AM [facility] Glucose UA Negative Negative 10/10/2016 10:27 AM [facility] Ketone UA Trace(A) Negative 10/10/2016 10:27 AM [facility] Bilirubin UA Negative Negative 10/10/2016 10:27 AM [facility] Urobilinogen UA 0.2 0.1 - 1.0 EU/dL 10/10/2016 10:27 AM [facility] Reflex Status Culture to follow 10/10/2016 10:27 AM [facility] Urine URINE SPECIMEN OBTAINED BY CLEAN CATCH PROCEDURE / Unknown Collection / Unknown 10/10/2016 10:05 AM [facility] 10/10/2016 10:08 AM [facility] Valente Perez MD LAB - URINALYSIS ORD ERABLES [facility] [address] [place] [address] * (ABNORMAL) COMPREHENSIVE METABOLIC PANEL (10/10/2016 8:49 AM [facility]) [facility] Glucose 85 74 - 106 mg/dL 10/10/2016 9:10 AM [facility] Sodium 138 136 - 145 mmol/L 10/10/2016 9:10 AM [facility] Potassium 3.3(L) 3.5 - 5.1 mmol/L 10/10/2016 9:10 AM [facility] Chloride 105 98 - 107 mmol/L 10/10/2016 9:10 AM [facility] CO2 29 22 - 31 mmol/L 10/10/2016 9:10 AM [facility] Calcium 8.7 8.5 - 10.1 mg/dL 10/10/2016 9:10 AM [facility] Anion Gap 4(L) 8 - 16 mmol/L 10/10/2016 9:10 AM [facility] BUN 9 7 - 21 mg/dL 10/10/2016 9:10 AM [facility] Creatinine 0.82 0.50 - 1.30 mg/dL 10/10/2016 9:10 AM [facility] Alkaline Phosphatase 70 38 - 126 U/L 10/10/2016 9:10 AM [facility] ALT 15 13 - 61 U/L 10/10/2016 9:10 AM [facility] AST 9 5 - 40 U/L 10/10/2016 9:10 AM [facility] Protein Total 7.5 6.4 - 8.2 gm/dL 10/10/2016 9:10 AM [facility] Albumin 3.6 3.4 - 5.0 gm/dL 10/10/2016 9:10 AM [facility] Bilirubin Total 0.3 0.2 - 1.0 mg/dL 10/10/2016 9:10 AM [facility] eGFR by MDRD >60 >60 mL/min/1.7 3m2 10/10/2016 9:10 AM [facility] eGFR by MDRD >60 >60 mL/min/1.7 3m2 10/10/2016 9:10 AM [facility] Blood BLOOD SPECIMEN / Unknown Venipuncture / Unknown 10/10/2016 8:49 AM TELEPHONIC RN 10/10/2016 8:53 AM TELEPHONIC RN Valente Perez MD LAB - CHEMISTRY JOANNA YUNG [facility] Organization Address City/State/ZIP Co de Phone Number [facility] [address] [place] [address] * (ABNORMAL) CBC W AUTO DIFFERENTIAL (10/10/2016 8:49 AM TELEPHONIC RN) WBC 6.3 4.4 - 10.7 x10E9/L 10/10/2016 8:55 AM [facility] WBC Corrected x10E9/L 10/10/2016 8:55 AM [facility] RBC 4.45 3.80 - 5.20 x10E12/L 10/10/2016 8:55 AM [facility] Hemoglobin 11.5(L) 12.0 - 15.6 gm/dL 10/10/2016 8:55 AM [facility] Hematocrit 35.2(L) 35.9 - 45.5 % 10/10/2016 8:55 AM [facility] MCV 79.1(L) 80.7 - 98.3 fl 10/10/2016 8:55 AM [facility] MCH 25.8(L) 26.7 - 34.0 pg 10/10/2016 8:55 AM [facility] MCHC 32.7 30.8 - 35.9 gm/dL 10/10/2016 8:55 AM [facility] Platelet Count 347 153 - 416 x10E9/L 10/10/2016 8:55 AM [facility] RDW-CV 17.3(H) 12.1 - 14.9 % 10/10/2016 8:55 AM [facility] MPV 9.1(L) 9.4 - 12.9 fl 10/10/2016 8:55 AM [facility] Neutrophils % 56.9 44.0 - 73.0 % 10/10/2016 8:55 AM [facility] Lymphocytes % 25.7 20.0 - 43.0 % 10/10/2016 8:55 AM [facility] Monocytes % 11.5 5.0 - 13.0 % 10/10/2016 8:55 AM [facility] Eosinophils % 4.6 0.0 - 6.0 % 10/10/2016 8:55 AM [facility] Basophils % 0.8 0.0 - 2.0 % 10/10/2016 8:55 AM [facility] Immature Granulocytes 0.5 0 - 1 % 10/10/2016 8:55 AM [facility] Neutrophil Absolute 3.57 2.01 - 7.14 x10E9/L 10/10/2016 8:55 AM [facility] Lymphocytes Absolute 1.61 1.07 - 3.94 x10E9/L 10/10/2016 8:55 AM [facility] Monocytes Absolute 0.72 0.26 - 1.07 x10E9/L 10/10/2016 8:55 AM [facility] Eosinophils Absolute 0.29 0 - 0.47 x10E9/L 10/10/2016 8:55 AM [facility] Basophils Absolute 0.05 0 - 0.08 x10E9/L 10/10/2016 8:55 AM [facility] Immature Granulocytes Absolute 0.03 0.00 - 0.06 x10E9/L 10/10/2016 8:55 AM [facility] nRBC Auto 0 /100 WBC 10/10/2016 8:55 AM [facility] Blood BLOOD SPECIMEN / Unknown Venipuncture / Unknown 10/10/2016 8:49 AM TELEPHONIC RN 10/10/2016 8:53 AM [facility] Valnete Perez MD LAB - HEMATOLOGY ORD ERABLES Performing Organization Address City/State/[facility] Co de Phone Number [facility] [address] [place] [address] documented in this encounter Visit [...] at 1000 $ Given 10/10/2016 10:05 AM TELEPHONIC RN 10 mg documented in this encounter Active and Recently Administered Medications Times are shown in TELEPHONIC RN. Scheduled Medication Order 10/08/2016 10/09/2016 10/10/2016 metoclopramide (REGLAN) tablet 10 mg (COMPLETED) 10 mg, Oral, NOW, 1 dose, On Thu10/10/16 at 1000 1005 ($ Given - Prov ider: Madyson Small RN) PRN Medication Order 10/08/2016 10/09/2016 10/10/2016 0.9% NaCl injection 1-10 mL 1-10 mL, Intracatheter, PRN, Other, Starting on Thu10/10/16 at 0841, Until Thu10/10/16 at 1326 documented in this encounter Care Teams Bookkeeping Assistant Relationship Specialty Start Date End Date Clinic[facility], [facility] PCP - General 10/10/16 10/12/17 documented as of this encounter
--- OUTSIDE RECORDS SUMMARY | 2024-09-25 20:08 | XMS_ITS | Encounter Summary ---
Author Organization [facility] Address [address] [place] [address] Care Team Providers Care Body Recall Instructor Name Role Phone [facility], [facility] Primary Care Provider Unavailable Reason for Visit * Reason Comments Pain Flank Encounter Details Date Type Department Care Team (Late st Contact Info) Description 10/23/2016 3:04 PM GARBAGE TRUCK DISPATCHER - 10/23/2016 5:48 PM GARBAGE TRUCK DISPATCHER Emergency ER at [facility] [address] [place] [address] [id number] Urinary tract infection, site unspecified; Horseshoe kidney [...] Comments Blood Pressure 129/81 10/23/2016 4:32 PM GARBAGE TRUCK DISPATCHER Pulse 66 10/23/2016 4:32 PM GARBAGE TRUCK DISPATCHER Temperature 36.8 ??C (98.2 ??F) 10/23/2016 11:[address] Respiratory Rate 11 10/23/2016 4:32 PM GARBAGE TRUCK DISPATCHER Oxygen Saturation 97% 10/23/2016 4:32 PM GARBAGE TRUCK DISPATCHER Inhaled Oxygen Concentration - - Weight 88.5 kg (195 lb) 10/23/2016 11:59 AM GARBAGE TRUCK DISPATCHER Height 162.6 cm (5' 4 ) 10/23/2016 11:59 AM GARBAGE TRUCK DISPATCHER Body Mass Index 33.47 10/23/2016 11:59 AM GARBAGE TRUCK DISPATCHER documented in this encounter Functional Status Functional [...] Marty Cole PA-C - 10/23/2016 5:34 PM GARBAGE TRUCK DISPATCHER Flank Pain Flank pain refers to pain [...] clear or pale yellow. ?? Only take goak-ipm-[id number] or prescription medicines as directed by your [...] Document Reviewed: 04/07/2013 ExitCare?? Patient Information ??2015 [employer]. This information is not intended to replace [...] ?? Parsley. ?? Rutabagas. ?? Spinach. ?? Panamanian chard. ?? Tomato paste. ?? Fried potatoes. [...] Document Reviewed: 07/21/2014 ExitCare?? Patient Information ??2014 [employer]. This information is not intended to replace advice given to you by your health care provider. Make sure you discuss any questions you have with your health care provider. AGE TRUCK DISPATCHER documented in this encounter Medications at Time [...] reports pain relief, will notify Federico TEJEDA AGE TRUCK DISPATCHER * Bal Alexandre RN - 10/23/2016 4:13 PM CST Medication given per MAR, pt resting with family at bedside, will continue to monitor AGE TRUCK DISPATCHER * Marty Cole PA-C - 10/23/2016 3:49 PM CST Provider contact with the patient: 10/23/2016 15:49 Jumana Rivers [id number] [facility] History Chief Complaint Patient presents with ??? Pain Flank HPI Comments: Jumana Rivers is a 26 [...] not take daily medication. LMP: today [facility] Past Medical History Diagnosis Date ??? [...] % Lymph 28.5 20.0 - 43.0 % Pettis 11.2 5.0 - 13.0 % Eos 1.8 0.0 - 6.0 % Baso 0.6 0.0 - 2.0 % Immature Grans 0.3 0 - 1 % Neutro Abs 4.57 2.01 - 7.14 x10E9/L Lymph Abs 2.26 1.07 - 3.94 x10E9/L [place]is Abs 0.89 0.26 - 1.07 x10E9/L Eosin [...] Yellow, Dark Yellow Clarity UA Cloudy Specific [place] UA >1.030 (H) 1.005 - 1.030 pH [...] patient to follow-up with: Tarik Chauhan MD [address] [facility] [address] Schedule an appointment as soon as possible for a visit For Re-evaluation [facility] [employer] PRECISION ASSEMBLER [address] [place] [phone] Call As needed Disposition: Discharged By [...] complete. Federico Cole PA-C, 10/23/2016 5:34 PM AGE TRUCK DISPATCHER * Bal Alexandre RN - 10/23/2016 3:19 PM CST Per pt, pain with urination and blood in urine one week ago, pt was seen and told she had small kidney stones. Since then pain has become constant in left and right lower back that radiates to the left abd. Pt is restless and guarding her abd at this time, will continue to monitor AGE TRUCK DISPATCHER documented in this encounter Plan of Treatment Not on file documented as of this encounter Procedures Procedure Name Priority Date/Time Associated Diagnosis Comments URINE MICROSCOPIC ONLY REFLEX TO CULTURE STAT 10/23/2016 4:07 PM GARBAGE TRUCK DISPATCHER URINALYSIS REFLEX MICROSCOPIC REFLEX CULTURE STAT 10/23/2016 4:07 PM GARBAGE TRUCK DISPATCHER CULTURE URINE STAT 10/23/2016 4:07 PM GARBAGE TRUCK DISPATCHER HCG URINE QUALITATIVE - POINT OF CARE Routine 10/23/2016 3:57 PM GARBAGE TRUCK DISPATCHER CBC W AUTO DIFFERENTIAL STAT 10/23/2016 12:04 PM GARBAGE TRUCK DISPATCHER COMPREHENSIVE METABOLIC PANEL STAT 10/23/2016 12:04 PM GARBAGE TRUCK DISPATCHER documented in this encounter Results * CULTURE URINE (10/23/2016 4:07 PM GARBAGE TRUCK DISPATCHER) Culture <10,000 CFU/mL urogenital marco CHRYSTAL 10/25/2016 5:24 AM GARBAGE TRUCK DISPATCHER [facility] MICRO[facility]OLOGY Urine URINE SPECIMEN OBTAINED BY CLEAN CATCH PROCEDURE / Unknown Collection / Unknown 10/23/2016 4:07 PM GARBAGE TRUCK DISPATCHER 10/23/2016 4:15 PM GARBAGE TRUCK DISPATCHER Reg Butler DO LAB - MICROBIOLOGY O RDERABLES [facility] MICROBIOLOGY [address] [place] [address], [facility] [phone] * (ABNORMAL) URINALYSIS MICROSCOPIC ONLY W/REFLEX CULTURE (10/23/2016 4:07 PM GARBAGE TRUCK DISPATCHER) Epithelial Cell UA 5-10(A) 0-2, 2-5 # /hpf 10/23/2016 4:39 PM GARBAGE TRUCK DISPATCHER [facility] Hyaline Casts 0-2 0 - 2 # /lpf 10/23/2016 4:39 PM GARBAGE TRUCK DISPATCHER [facility] Urine URINE SPECIMEN OBTAINED BY CLEAN CATCH PROCEDURE / Unknown Collection / Unknown 10/23/2016 4:07 PM GARBAGE TRUCK DISPATCHER 10/23/2016 4:15 PM GARBAGE TRUCK DISPATCHER Reg Butler DO LAB - URINALYSIS ORD ERABLES [facility] [address] [place] [address] * (ABNORMAL) URINALYSIS ROUTINE W/REFLEX TO CULTURE (10/23/2016 4:07 PM GARBAGE TRUCK DISPATCHER) Color UA Yellow Straw, Yellow, Dark Yellow 10/23/2016 4:25 PM GARBAGE TRUCK DISPATCHER [facility] Clarity UA Cloudy 10/23/2016 4:25 PM GARBAGE TRUCK DISPATCHER [facility] Specific [place] UA >1.030(H) 1.005 - 1.030 10/23/2016 4:25 PM [facility] pH UA 5.5 5.0 - 8.0 pH 10/23/2016 4:25 PM GARBAGE TRUCK DISPATCHER [facility] Protein UA Trace(A) Negative 10/23/2016 4:25 PM GARBAGE TRUCK DISPATCHER [facility] Blood UA 2+(A) Negative 10/23/2016 4:25 PM GARBAGE TRUCK DISPATCHER [facility] Leukocyte UA 1+(A) Negative 10/23/2016 4:25 PM GARBAGE TRUCK DISPATCHER [facility] Nitrite UA Negative Negative 10/23/2016 4:25 PM GARBAGE TRUCK DISPATCHER [facility] Glucose UA Negative Negative 10/23/2016 4:25 PM GARBAGE TRUCK DISPATCHER [facility] Ketone UA 2+(A) Negative 10/23/2016 4:25 PM GARBAGE TRUCK DISPATCHER [facility] Bilirubin UA Negative Negative 10/23/2016 4:25 PM GARBAGE TRUCK DISPATCHER [facility] Urobilinogen UA 0.2 0.1 - 1.0 EU/dL 10/23/2016 4:25 PM GARBAGE TRUCK DISPATCHER [facility] WBC UA Auto 20-50(A) 0-2, 2-5 # /hpf 10/23/2016 4:25 PM GARBAGE TRUCK DISPATCHER [facility] RBC UA Auto 2-5 0-2, 2-5 # /hpf 10/23/2016 4:25 PM GARBAGE TRUCK DISPATCHER [facility] Bacteria UA Auto 1+(A) None seen 10/23/19 17 4:25 PM GARBAGE TRUCK DISPATCHER [facility] Hyaline Casts UA Auto Reflex to manual(A) 0 - 2 #/lpf 10/23/2016 4:25 PM GARBAGE TRUCK DISPATCHER [facility] Reflex Status Culture to follow 10/23/2016 4:25 PM GARBAGE TRUCK DISPATCHER [facility] Urine URINE SPECIMEN OBTAINED BY CLEAN CATCH PROCEDURE / Unknown Collection / Unknown 10/23/2016 4:07 PM GARBAGE TRUCK DISPATCHER 10/23/2016 4:15 PM GARBAGE TRUCK DISPATCHER Reg Butler DO LAB - URINALYSIS ORD ERABLES Performing Organization Address [facility] Co de Phone Number [facility] [address] [place] [address] * HCG URINE QUALITATIVE - POINT OF CARE (IP) (10/23/2016 3:57 PM GARBAGE TRUCK DISPATCHER) HCG Qual Urine Negative Negative [facility] POCT TESTING QC Verified Yes Yes [facility] POC T TESTING Urine URINE / Unknown 10/23/2016 3 :57 PM GARBAGE TRUCK DISPATCHER Marty Cole PA-C LAB - POINT OF CARE ORDERABLES Performing Organization Address [facility] de Phone Number [facility] POCT TESTING [address] [place] [address] * (ABNORMAL) COMPREHENSIVE METABOLIC PANEL (10/23/2016 12:04 PM GARBAGE TRUCK DISPATCHER) Glucose 83 74 - 106 mg/dL 10/23/2016 12:27 [address] GARBAGE TRUCK DISPATCHER [facility] Sodium 141 136 - 145 mmol/L 10/23/2016 12:27 PM GARBAGE TRUCK DISPATCHER [facility] Potassium 3.5 3.5 - 5.1 mmol/L 10/23/2016 12:27 PM GARBAGE TRUCK DISPATCHER [facility] Chloride 107 98 - 107 mmol/L 10/23/2016 12:27 PM [facility] CO2 28 22 - 31 mmol/L 10/23/2016 12:27 PM [facility] Calcium 8.7 8.5 - 10.1 mg/dL 10/23/2016 12:27 PM [facility] Anion Gap 6(L) 8 - 16 mmol/L 10/23/2016 12:27 PM [facility] BUN 11 7 - 21 mg/dL 10/23/2016 12:27 PM [facility] Creatinine 0.80 0.50 - 1.30 mg/dL 10/23/2016 12:27 PM [facility] Alkaline Phosphatase 63 38 - 126 U/L 10/23/2016 12:27 PM [facility] ALT 17 13 - 61 U/L 10/23/2016 12:27 PM [facility] AST 11 5 - 40 U/L 10/23/2016 12:27 PM [facility] Protein Total 7.7 6.4 - 8.2 gm/dL 10/23/2016 12:27 PM [facility] Albumin 3.8 3.4 - 5.0 gm/dL 10/23/2016 12:27 PM [facility] Bilirubin Total 0.3 0.2 - 1.0 mg/dL 10/23/2016 12:27 PM [facility] eGFR by MDRD >60 >60 mL/min/1.7 3m2 10/23/2016 12:27 PM [facility] eGFR by MDRD >60 >60 mL/min/1.7 3m2 10/23/2016 12:27 PM [facility] Blood BLOOD SPECIMEN / Unknown 10/23/2016 12:04 PM [facility] 10/23/2016 12:10 PM [facility] Reg Butler DO LAB - CHEMISTRY JOANNA YUNG [facility] [address] [place] [address] * (ABNORMAL) CBC W AUTO DIFFERENTIAL (10/23/2016 12:04 PM [facility]) WBC 7.9 4.4 - 10.7 x10E9/L 10/23/2016 12:13 PM [facility] WBC Corrected x10E9/L 10/23/2016 12:13 PM [facility] RBC 4.58 3.80 - 5.20 x10E12/L 10/23/2016 12:13 PM [facility] Hemoglobin 11.8(L) 12.0 - 15.6 gm/dL 10/23/2016 12:13 PM [facility] Hematocrit 35.9 35.9 - 45.5 % 10/23/2016 12:13 PM [facility] MCV 78.4(L) 80.7 - 98.3 fl 10/23/2016 12:13 PM [facility] MCH 25.8(L) 26.7 - 34.0 pg 10/23/2016 12:13 PM [facility] MCHC 32.9 30.8 - 35.9 gm/dL 10/23/2016 12:13 PM [facility] Platelet Count 361 153 - 416 x10E9/L 10/23/2016 12:13 PM [facility] RDW-CV 16.9(H) 12.1 - 14.9 % 10/23/2016 12:13 PM [facility] MPV 9.3(L) 9.4 - 12.9 fl 10/23/2016 12:13 PM [facility] Neutrophils % 57.6 44.0 - 73.0 % 10/23/2016 12:13 PM [facility] Lymphocytes % 28.5 20.0 - 43.0 % 10/23/2016 12:13 PM [facility] Monocytes % 11.2 5.0 - 13.0 % 10/23/2016 12:13 PM [facility] Eosinophils % 1.8 0.0 - 6.0 % 10/23/2016 12:13 PM [facility] Basophils % 0.6 0.0 - 2.0 % 10/23/2016 12:13 PM [facility] Immature Granulocytes 0.3 0 - 1 % 10/23/2016 12:13 PM [facility] Neutrophil Absolute 4.57 2.01 - 7.14 x10E9/L 10/23/2016 12:13 PM [facility] Lymphocytes Absolute 2.26 1.07 - 3.94 x10E9/L 10/23/2016 12:13 PM [facility] Monocytes Absolute 0.89 0.26 - 1.07 x10E9/L 10/23/2016 12:13 PM [facility] Eosinophils Absolute 0.14 0 - 0.47 x10E9/L 10/23/2016 12:13 PM GARBAGE TRUCK DISPATCHER [facility] Basophils Absolute 0.05 0 - 0.08 x10E9/L 10/23/2016 12:13 PM GARBAGE TRUCK DISPATCHER [facility] Immature Granulocytes Absolute 0.02 0.00 - 0.06 x10E9/L 10/23/2016 12:13 PM GARBAGE TRUCK DISPATCHER [facility] nRBC Auto 0 /100 WBC 10/23/2016 12:13 PM GARBAGE TRUCK DISPATCHER [facility] Blood BLOOD SPECIMEN / Unknown 10/23/2016 12:04 PM GARBAGE TRUCK DISPATCHER 10/23/2016 12:10 PM GARBAGE TRUCK DISPATCHER Reg Butler DO LAB - HEMATOLOGY ORD ERABLES Performing Organization Address City/State/[facility] Co de Phone Number [facility] [address] [place] [address] documented in this encounter Visit Diagnoses Diagnosis [...] at 1600 $ Given 10/23/2016 4:10 PM GARBAGE TRUCK DISPATCHER 1,000 mL ketorolac (TORADOL) injection 30 mg 30 mg, Intravenous, NOW, 1 dose, On Emma 10/23/16 at 1600 $ Given 10/23/2016 4:09 PM GARBAGE TRUCK DISPATCHER 30 mg ondansetron (ZOFRAN) injection 4 mg 4 mg, Intravenous, EVERY 6 HOURS PRN, Nausea/Vomiting, Starting on Emma 10/23/16 at 1552, Until Emma 10/23/16 at 1849 $ Given 10/23/2016 4:08 PM GARBAGE TRUCK DISPATCHER 4 mg documented in this encounter Active and Recently Administered Medications Times are shown in GARBAGE TRUCK DISPATCHER. Scheduled Medication Order 10/21/2016 10/22/2016 10/23/2016 0.9% [...] RN) documented in this encounter Care Teams Body Recall Instructor Relationship Specialty Start Date End Date [facility], [facility] PCP - General 10/10/16 10/12/17 documented as of this encounter
--- OUTSIDE RECORDS SUMMARY | 2024-09-25 20:08 | XMS_ITS | Encounter Summary ---
Author Organization [facility] Address [address] [place] [address] Care Team Providers Care Utilization Review Coordinator Name Role Phone Unavailable Primary Care Provider Unavailabl e Reason for Visit * Reason Comments Pain Flank c/o rt flank pain, n ausea since this am. No fever, chills, dysuria. Hx kidney stones. Encounter Details Date Type Department Care Team (Late st Contact Info) Description 12/29/2017 8:48 AM CDT - 12/29/2017 12:22 PM CDT Emergency ER at [facility] [address] [place] [id number] Lalo Frausto MD [address] [place] [address] [place] [address] Abdominal pain, right upper quadrant; Nephrolithiasis Discharge [...] will give you more instructions. ?? 2017 [employer] Information is for End User's use only and may not be sold, redistributed or otherwise used for commercial purposes. All illustrations and images included in CareNotes?? are the copyrighted property of [employer]. or [employer]. The above information is an certified medication aide only. It is not intended as [...] with the patient: 12/29/2017 08:52 Jumana Rivers [id number] [facility]PART[facility] History Chief [...] % Lymph 20.1 20.0 - 43.0 % [place] 8.5 5.0 - 13.0 % Eos 3.1 0.0 - 6.0 % Baso 0.6 0.0 - 2.0 % Immature Grans 0.4 0 - 1 % Neutro Abs 6.07 2.01 - 7.14 x10E9/L Lymph Abs 1.81 1.07 - 3.94 x10E9/L [place] Abs 0.77 0.26 - 1.07 x10E9/L Eosin [...] Negative Negative Ketone UA Negative Negative Specific [place] UA 1.050 (H) 1.005 - 1.030 Blood [...] patient to follow-up with: Miller Zamora MD [address] [facility] [address] In 1 week Disposition: Discharged By signing [...] 0-2, 3-5 /hpf 12/29/2017 11:28 AM CDT [facility] Mucus UA 1+ /LPF 12/29/2017 11:28 AM CDT [facility] Urine URINE SPECIMEN OBTAINED BY CLEAN CATCH PROCEDURE / Unknown Collection / Unknown 12/29/2017 11:16 AM CDT 12/29/2017 11:18 AM CDT Narrative [facility] - 12/29/2017 11:28 AM CDT Lalo Frausto MD LAB - URINALYSIS ORD ERABLES Performing Organization Address [facility]/ZIP Co de Phone Number [facility] [address] [place] [phone] * (ABNORMAL) URINALYSIS REFLEX TO MICROSCOPIC NO CULTURE (12/29/2017 11:16 AM CDT) Color UA Straw Straw, Yellow 12/29/2017 11:28 AM T [facility] Clarity UA Clear Clear 12/29/2017 11:28 AM T [facility] Glucose UA Negative Negative 12/29/2017 11:28 AM T [facility] Bilirubin UA Negative Negative 12/29/2017 11:28 AM T [facility] Ketone UA Negative Negative 12/29/2017 11:[address] [facility] Specific [place] UA 1.050(H) 1.005 - 1.030 12/29/2017 11:28 AM T [facility] Blood UA 3+(A) Negative 12/29/2017 11:[address] [facility] pH UA 8.0 5.0 - 8.0 pH 12/29/2017 11:28 AM T [facility] Protein UA Negative Negative 12/29/2017 11:28 AM T [facility] Urobilinogen UA Negative Negative mg/dL 12/29/2017 11:28 AM T [facility] Nitrite UA Negative Negative 12/29/2017 11:28 AM T [facility] Leukocyte UA Trace(A) Negative 12/29/2017 11:[address] [facility] Urine Microscopy Urine microscopy to follow 12/29/2017 11:[address] [facility] Urine URINE SPECIMEN OBTAINED BY CLEAN CATCH PROCEDURE / Unknown Collection / Unknown 12/29/2017 11:16 AM CDT 12/29/2017 11:18 AM CDT Narrative [facility] - 12/29/2017 11:28 AM CDT Lalo Frausto MD LAB - URINALYSIS ORD ERABLES Performing Organization Address City/[facility]/ZIP Co de Phone Number [facility] [address] [place] [address] * CT ABDOMEN AND PELVIS WITH IV [...] <1 mIU/mL 12/30/19 18 9:30 AM T [facility] Blood BLOOD SPECIMEN / Unknown Venipuncture / Unknown 12/29/2017 9:03 AM CDT 12/29/2017 9:16 AM CDT Narrative [facility] - 12/29/2017 9:30 AM CDT [...] Frausto MD LAB - CHEMISTRY JOANNA YUNG [facility] Organization Address City/State/ZIP Co de Phone Number [facility] [address] [place] [address] * (ABNORMAL) COMPREHENSIVE METABOLIC PANEL (12/29/2017 9:03 AM CDT) Glucose 91 74 - 106 mg/dL 12/29/2017 9:23 AM CDT [facility] Sodium 141 136 - 145 mmol/L 12/29/2017 9:23 AM CDT [facility] Potassium 3.8 3.5 - 5.1 mmol/L 12/29/2017 9:23 AM CDT [facility] Chloride 107 98 - 107 mmol/L 12/29/2017 9:23 AM CDT [facility] CO2 28 22 - 31 mmol/L 12/29/2017 9:23 AM CDT [facility] Calcium 9.0 8.5 - 10.1 mg/dL 12/29/2017 9:23 AM CDT [facility] Anion Gap 6(L) 8 - 16 mmol/L 12/29/2017 9:23 AM CDT [facility] BUN 12 7 - 21 mg/dL 12/29/2017 9:23 AM CDT [facility] Creatinine 0.79 0.50 - 1.30 mg/dL 12/29/2017 9:23 AM CDT [facility] Alkaline Phosphatase 70 38 - 126 U/L 12/29/2017 9:23 AM CDT [facility] ALT 16 13 - 61 U/L 12/29/2017 9:23 AM CDT [facility] AST 15 5 - 40 U/L 12/29/2017 9:23 AM CDT [facility] Protein Total 7.7 6.4 - 8.2 gm/dL 12/29/2017 9:23 AM CDT [facility] Albumin 3.7 3.4 - 5.0 gm/dL 12/29/2017 9:23 AM CDT [facility] Bilirubin Total 0.3 0.2 - 1.0 mg/dL 12/29/2017 9:23 AM CDT [facility] eGFR by MDRD >60 >60 mL/min/1.7 3m2 12/29/2017 9:23 AM CDT [facility] eGFR by MDRD >60 >60 mL/min/1.7 3m2 12/29/2017 9:[address] [facility] Blood BLOOD SPECIMEN / Unknown Venipuncture / Unknown 12/29/2017 9:03 AM CDT 12/29/2017 9:10 AM CDT Lalo Frausto MD LAB - CHEMISTRY JOANNA YUNG [facility] [place] Organization Address City/State/ZIP Co de Phone Number [facility] [address] [place] [address] * (ABNORMAL) CBC W AUTO DIFFERENTIAL (12/29/2017 9:03 AM CDT) WBC 9.0 4.4 - 10.7 x10E9/L 12/29/2017 9:[address] [facility] WBC Corrected x10E9/L 12/29/2017 9:[address] [facility] RBC 4.62 3.80 - 5.20 x10E12/L 12/29/2017 9:[address] [facility] Hemoglobin 11.5(L) 12.0 - 15.6 gm/dL 12/29/2017 9:[address] [facility] Hematocrit 36.4 35.9 - 45.5 % 12/29/2017 9:[address] [facility] MCV 78.8(L) 80.7 - 98.3 fl 12/29/2017 9:[address] [facility] MCH 24.9(L) 26.7 - 34.0 pg 12/29/2017 9:[address] [facility] MCHC 31.6 30.8 - 35.9 gm/dL 12/29/2017 9:[address] [facility] Platelet Count 364 153 - 416 x10E9/L 12/29/2017 9:[address] [facility] RDW-CV 18.1(H) 12.1 - 14.9 % 12/29/2017 9:[address] [facility] MPV 9.3(L) 9.4 - 12.9 fl 12/29/2017 9:[address] [facility] Neutrophils % 67.3 44.0 - 73.0 % 12/29/2017 9:08 AM CDT [facility] Lymphocytes % 20.1 20.0 - 43.0 % 12/29/2017 9:08 AM CDT [facility] Monocytes % 8.5 5.0 - 13.0 % 12/29/2017 9:08 AM CDT [facility] Eosinophils % 3.1 0.0 - 6.0 % 12/29/2017 9:08 AM CDT [facility] Basophils % 0.6 0.0 - 2.0 % 12/29/2017 9:08 AM T [facility] Immature Granulocytes 0.4 0 - 1 % 12/29/2017 9:08 AM T [facility] Neutrophil Absolute 6.07 2.01 - 7.14 x10E9/L 12/29/2017 9:08 AM T [facility] Lymphocytes Absolute 1.81 1.07 - 3.94 x10E9/L 12/29/2017 9:08 AM CDT [facility] Monocytes Absolute 0.77 0.26 - 1.07 x10E9/L 12/29/2017 9:08 AM T [facility] Eosinophils Absolute 0.28 0 - 0.47 x10E9/L 12/29/2017 9:08 AM T [facility] Basophils Absolute 0.05 0 - 0.08 x10E9/L 12/29/2017 9:[address] [facility] Immature Granulocytes Absolute 0.04 0.00 - 0.06 x10E9/L 12/29/2017 9:[address] [facility] nRBC Auto 0 /100 WBC 12/29/2017 9:[address] [facility] Blood BLOOD SPECIMEN / Unknown Venipuncture / Unknown 12/29/2017 9:03 AM CDT 12/29/2017 9:05 AM CDT Lalo Frausto MD LAB - HEMATOLOGY ORD ERABLES [facility] [address] [place] [address] documented in this encounter Visit [...] [id number] ($ Given - Prov ider: Gloyr Lino, RAZIA) PRN Medication Order 12/27/2017 12/28/2017 [...]
--- OUTSIDE RECORDS SUMMARY | 2024-09-25 20:08 | XMS_ITS | Encounter Summary ---
Author Organization [facility] Address [address] [place] [address] Care Team Providers Care Irish Moss Bleacher Name Role Phone Clinicpc, [facility] Primary Care Provider Unavailable Reason for Visit * Reason Comments Pain Flank Pt presents to ER wi th urinary pain that stated this a.m. Encounter Details Date Type Department Care Team (Late st Contact Info) Description 12/15/2016 11:16 AM CDT - 12/15/2016 1:06 PM CDT Emergency ER at [address] [address] Abdominal pain, lower; Constipation, unspecified [...] movements in the next 1-2 days use zdbx-rpq-hwwmrzh magnesium citrate. Need to follow up with [...] with a lot of sugar. This includes moroccan fries, hamburgers, cookies, candy, and soda. ?? [...] Document Reviewed: 06/05/2014 ExitCare?? Patient Information ??2015 [employer]. This information is not intended to replace [...] Document Reviewed: 04/24/2014 ExitCare?? Patient Information ??2015 Panjo. This information is not intended to replace advice given to you by your health care provider. Make sure you discuss any questions you have with your health care provider. Low Cost Clinics (You may qualify for free service) If you are NOT a legal resident, citizen or refugee and don???t have health insurance you can go tothe following clinics: [facility] [address] [place] [address] Appointments: [phone] [facility], [facility] [address] [place] [address] [facility] [address] [address] Appointments: [phone] [facility], [facility] [address] [place], [place] [id number] [facility] [address] [place] [address] [facility] [place], [facility] [address] [place], [place] [id number] [facility] [address] [place] [address] [facility] [address] [place] [address] [facility] [address] [place] [address] Appointments: [phone] [facility] - [facility] [address] [place] [address] without health insurance and you are not a citizen, refugee or legal resident yet? You may qualify to receive ???Medicaid for Women?? and it is free. For more information, call one of the Locations listed above If your child was born in the [facility] or is a legal resident for [...] Refills Start Date End Date albuterol HFA (PROVENTIL;VENTOLIN;AZ OAIR) 108 (90 BASE) [...] the patient: 12/15/2016 11:50 Datreion [place] [id number] [facility] History Chief Complaint Patient presents [...] % Lymph 30.4 20.0 - 43.0 % Harper 9.8 5.0 - 13.0 % Eos 4.0 0.0 - 6.0 % Baso 0.8 0.0 - 2.0 % Immature Grans 0.5 0 - 1 % Neutro Abs 4.12 2.01 - 7.14 x10E9/L Lymph Abs 2.30 1.07 - 3.94 x10E9/L Harper Abs 0.74 0.26 - 1.07 x10E9/L Eosin [...] Yellow, Dark Yellow Clarity UA Cloudy Specific [place] UA >=1.030 1.005 - 1.030 pH UA [...] the importance of following up with her doctor--[facility] Brie as instructed. The patient verbalizedunderstanding of [...] advised the patient to follow-up with: Brie, [facility] [address] [facility] [address] Call today for f/u Disposition: Discharged 12/15/2016 [...] Probe Negative Negative 12/16/2016 9:02 AM CDT [facility] MICROBIOLOGY GC Amplified Probe Negative Negative 12/16/2016 9:02 AM CDT [facility] MICROBIOLOGY Microbiology ENTIRE ENDOCERVIX / Unknown 12/15/2016 12:15 PM CDT 12/15/2016 12:17 PM CDT Narrative [facility] MICROBIOLOGY - 12/16/2016 9:02 AM CDT Results based on detection/no detection of ribosomal RNA by amplified method. [facility] - MICR OBIOLOGY ORDERABLES Performing Organization Address City/[facility]/ZIP Co de Phone Number [facility] MICROBIOLOGY [address] [place] [address], [facility] [phone] * TRICHOMONAS RAPID TEST (12/15/2016 12:15 PM CDT) Trichomonas Rapid Test Negative Negative 12/15/2016 12:30 PM CDT [facility] Microbiology ENTIRE VAGINA / Unknown 12/15/2016 12:15 PM CDT 12/15/2016 12:17 PM CDT [facility] - MICR OBIOLOGY ORDERABLES Performing Organization Address [facility] Co de Phone Number [facility] [phone] [place] [address] * HCG URINE QUALITATIVE (12/15/2016 10:55 AM CDT) Pathologist [facility] hCG Qualitative Urine Negative Negative 12/15/2016 12:16 PM CDT [facility] Urine URINE SPECIMEN OBTAINED BY CLEAN CATCH PROCEDURE / Unknown 12/15/2016 10:55 AM CDT 12/15/2016 11:14 AM CDT [facility] - URIN ALYSIS ORDERABLES Performing Organization Address [facility] Co de Phone Number [facility] [address] [place] [address] * (ABNORMAL) URINALYSIS MICROSCOPIC ONLY W/REFLEX CULTURE (12/15/2016 10:55 AM CDT) RBC UA >100(A) 0-2, 2-5 # /hpf 12/15/2016 11:31 AM CDT [facility] WBC UA 0-2 0-2, 2-5 # /hpf 12/15/2016 11:31 AM CDT [facility] Bacteria UA 1+(A) None Seen 12/15/2016 11:31 AM CDT [facility] Epithelial Cell UA 0-2 0-2, 2-5 # /hpf 12/15/2016 11:31 AM CDT [facility] Mucus UA 3+ 12/15/2016 11:31 AM CDT [facility] Hyaline Casts 0-2 0 - 2 # /lpf 12/15/2016 11:31 AM T [facility] Urine URINE SPECIMEN OBTAINED BY CLEAN CATCH PROCEDURE / Unknown 12/15/2016 10:55 AM CDT 12/15/2016 11:14 AM CDT Ezequiel Ellis MD LAB - URINALYSIS ORD ERABLES [facility] [address] [place] [address] * (ABNORMAL) URINALYSIS ROUTINE W/REFLEX TO CULTURE (12/15/2016 10:55 AM CDT) Color UA Yellow Straw, Yellow, Dark Yellow 12/15/2016 11:23 AM T [facility] Clarity UA Cloudy 12/15/2016 11:23 AM [facility] Specific [place] UA >=1.030 1.005 - 1.030 12/15/2016 11:23 AM [facility] pH UA 6.0 5.0 - 8.0 pH 12/15/2016 11:23 AM [facility] Protein UA 1+(A) Negative 12/15/2016 11:23 AM T [facility] Blood UA 3+(A) Negative 12/15/2016 11:23 AM T [facility] Leukocyte UA Negative Negative 12/15/2016 11:23 AM T [facility] Nitrite UA Negative Negative 12/15/2016 11:23 AM T [facility] Glucose UA Negative Negative 12/15/2016 11:23 AM T [facility] Ketone UA Trace(A) Negative 12/15/2016 11:23 AM T [facility] Bilirubin UA Negative Negative 12/15/2016 11:23 AM [facility] Urobilinogen UA 1.0 0.1 - 1.0 EU/dL 12/15/2016 11:23 AM [facility] Urine Microscopy Urine microscopy to follow 12/15/2016 11:23 AM CDT [facility] Reflex Status Culture not indicated 12/15/2016 11:23 AM CDT [facility] Urine URINE SPECIMEN OBTAINED BY CLEAN CATCH PROCEDURE / Unknown 12/15/2016 10:55 AM CDT 12/15/2016 11:14 AM CDT Ezequiel Ellis MD LAB - URINALYSIS ORD ERABLES [facility] [address] [place] [address] * (ABNORMAL) COMPREHENSIVE METABOLIC PANEL (12/15/2016 10:23 AM CDT) Glucose 83 74 - 106 mg/dL 12/15/2016 10:57 AM CDT [facility] Sodium 137 136 - 145 mmol/L 12/15/2016 10:57 AM CDT [facility] Potassium 3.6 3.5 - 5.1 mmol/L 12/15/2016 10:57 AM CDT [facility] Chloride 105 98 - 107 mmol/L 12/15/2016 10:57 AM CDT [facility] CO2 25 22 - 31 mmol/L 12/15/2016 10:57 AM CDT [facility] Calcium 8.9 8.5 - 10.1 mg/dL 12/15/2016 10:57 AM [facility] Anion Gap 7(L) 8 - 16 mmol/L 12/15/2016 10:57 AM CDT [facility] BUN 11 7 - 21 mg/dL 12/15/2016 10:57 AM CDT [facility] Creatinine 0.67 0.50 - 1.30 mg/dL 12/15/2016 10:57 AM CDT [facility] Alkaline Phosphatase 51 38 - 126 U/L 12/15/2016 10:57 AM CDT [facility] ALT 14 13 - 61 U/L 12/15/2016 10:57 AM CDT [facility] AST 10 5 - 40 U/L 12/15/2016 10:57 AM T [facility] Protein Total 7.4 6.4 - 8.2 gm/dL 12/15/2016 10:57 AM CDT [facility] Albumin 3.6 3.4 - [...] Ellis MD LAB - CHEMISTRY JOANNA YUNG [facility] Organization Address City/State/ZIP Co de Phone Number [facility] [address] [place] [address] * (ABNORMAL) CBC W AUTO DIFFERENTIAL (12/15/2016 10:23 AM CDT) WBC 7.6 4.4 - 10.7 x10E9/L 12/15/2016 10:42 AM CDT [facility] WBC Corrected x10E9/L 12/15/2016 10:42 AM CDT [facility] RBC 4.43 3.80 - 5.20 x10E12/L 12/15/2016 10:42 AM CDT [facility] Hemoglobin 11.3(L) 12.0 - 15.6 gm/dL 12/15/2016 10:42 AM CDT [facility] Hematocrit 34.3(L) 35.9 - 45.5 % 12/15/2016 10:42 AM CDT [facility] MCV 77.4(L) 80.7 - 98.3 fl 12/15/2016 10:42 AM CDT [facility] MCH 25.5(L) 26.7 - 34.0 pg 12/15/2016 10:42 AM CDT [facility] MCHC 32.9 30.8 - 35.9 gm/dL 12/15/2016 10:42 AM CDT [facility] Platelet Count 379 153 - 416 x10E9/L 12/15/2016 10:42 AM CDT [facility] RDW-CV 17.7(H) 12.1 - 14.9 % 12/15/2016 10:42 AM CDT [facility] MPV 9.4 9.4 - 12.9 fl 12/15/2016 10:42 AM CDT [facility] Neutrophils % 54.5 44.0 - 73.0 % 12/15/2016 10:42 AM CDT [facility] Lymphocytes % 30.4 20.0 - 43.0 % 12/15/2016 10:42 AM CDT [facility] Monocytes % 9.8 5.0 - 13.0 % 12/15/2016 10:42 AM CDT [facility] Eosinophils % 4.0 0.0 - 6.0 % 12/15/2016 10:42 AM CDT [facility] Basophils % 0.8 0.0 - 2.0 % 12/15/2016 10:42 AM CDT [facility] Immature Granulocytes 0.5 0 - 1 % 12/15/2016 10:42 AM CDT [facility] Neutrophil Absolute 4.12 2.01 - 7.14 x10E9/L 12/15/2016 10:42 AM CDT [facility] Lymphocytes Absolute 2.30 1.07 - 3.94 x10E9/L 12/15/2016 10:42 AM CDT [facility] Monocytes Absolute 0.74 0.26 - 1.07 x10E9/L 12/15/2016 10:42 AM CDT [facility] Eosinophils Absolute 0.30 0 - 0.47 x10E9/L 12/15/2016 10:42 AM CDT [facility] Basophils Absolute 0.06 0 - 0.08 x10E9/L 12/15/2016 10:42 AM CDT [facility] Immature Granulocytes Absolute 0.04 0.00 - 0.06 x10E9/L 12/15/2016 10:42 AM CDT [facility] nRBC Auto 0 /100 WBC 12/15/2016 10:42 AM CDT [facility] Blood BLOOD SPECIMEN / Unknown 12/15/2016 10:23 AM CDT 12/15/2016 10:39 AM CDT Ezequiel Ellis MD LAB - HEMATOLOGY ORD ERABLES [facility] [address] [place] [address] documented in this encounter Visit [...] [id number] documented in this encounter Care Teams Irish Moss Bleacher Relationship Specialty Start Date End Date Clinicpcp, [facility] PCP - General 10/10/16 10/12/17 documented as of this encounter
--- OUTSIDE RECORDS SUMMARY | 2024-09-25 20:08 | XMS_ITS | Encounter Summary ---
Author Organization [facility] Address [address] [place] [address] Care Team Providers Care Printed Circuit Board Panels Plater Name Role Phone Unavailable Primary Care Provider Unavailabl e Reason for Visit * Reason Comments Pain Urinary frequent urination w ith loss of appetite and right side pain for 1 week/no urinary pain/hx kidney stone Encounter Details Date Type Department Care Team (Late st Contact Info) Description 11/27/2017 6:17 PM CDT - 11/27/2017 8:37 PM CDT Emergency ER at [facility] [address] [place] [id number] Regino Silvestre MD [address] ATTN [place] [address] Acute pyelonephritis (Primary Dx) Discharge Disposition: Home [...] ask them during your visits. ?? 2017 [employer] Information is for End User's use only and may not be sold, redistributed or otherwise used for commercial purposes. All illustrations and images included in CareNotes?? are the copyrighted property of [email or web address], [email or web address] or [employer]. The above information is an hearing aid repairer only. It is not intended as medical [...] the patient: 11/27/2017 19:11 Datreion Deven [place] [id number] [facility] EMERGENCY DEPARTMENT History Chief Complaint Patient [...] % Lymph 24.8 20.0 - 43.0 % [place] 12.0 5.0 - 13.0 % Eos 2.9 0.0 - 6.0 % Baso 0.9 0.0 - 2.0 % Immature Grans 0.3 0 - 1 % Neutro Abs 3.88 2.01 - 7.14 x10E9/L Lymph Abs 1.63 1.07 - 3.94 x10E9/L [place] Abs 0.79 0.26 - 1.07 x10E9/L Eosin [...] Negative Ketone UA 1+ (Abnormal) Negative Specific [place] UA 1.017 1.005 - 1.030 Blood UA [...] the patient: 11/27/2017 18:47 Datreion Deven Rivers [id number] [facility] EMERGENCY DEPARTMENT History Chief Complaint Patient [...] % Lymph 24.8 20.0 - 43.0 % [place] 12.0 5.0 - 13.0 % Eos 2.9 0.0 - 6.0 % Baso 0.9 0.0 - 2.0 % Immature Grans 0.3 0 - 1 % Neutro Abs 3.88 2.01 - 7.14 x10E9/L Lymph Abs 1.63 1.07 - 3.94 x10E9/L [place] Abs 0.79 0.26 - 1.07 x10E9/L Eosin [...] Negative Ketone UA 1+ (Abnormal) Negative Specific [place] UA 1.017 1.005 - 1.030 Blood UA [...] to follow-up with: Dinesh Cannon MD [address] [address] x5 In 3 days Disposition: Discharged By signing my name below, I, Jeronimo Del Angel, attest that this documentation has been prepared under the direction and in the presence of Dr. Silvetsre. Electronically Signed: Tevin Watkins. 11/27/2017 10:25 PM [...] POINT OF CARE ORDERABLES Performing Organization Address [facility] Co de Phone Number [facility] [address] [place] [address], [facility] [phone] * CULTURE URINE (11/27/2017 6:22 PM CDT) Culture Urine <10,000 CFU/mL urogenital marco CHRYSTAL 11/29/2017 9:04 AM CDT [facility]CRO[facility] Urine URINE SPECIMEN OBTAINED BY CLEAN CATCH PROCEDURE / Unknown Collection / Unknown 11/27/2017 6:22 PM CDT 11/27/2017 6:28 PM CDT Regino Silvestre MD LAB - MICROBIOLOGY O RDERABLES [facility]CRO[facility] [address] [place] [phone] * (ABNORMAL) URINE MICROSCOPIC ONLY REFLEX TO CULTURE (11/27/2017 6:22 PM CDT) Reflex Status Culture to follow 11/27/2017 6:38 PM CDT [facility] RBC UA >100(A) 0-5, None Seen # /hpf 11/27/2017 6:38 PM CDT [facility] WBC UA 51-100(A) 0-5, None Seen # /hpf 11/27/2017 6:38 PM CDT [facility] Bacteria UA Trace(A) None Seen 11/27/2017 6:38 PM CDT [facility] Squamous Epithelial Cells 3-5 None Seen, 0-2, 3-5 /hpf 11/27/2017 6:38 PM CDT [facility] Mucus UA 3+ /LPF 11/27/2017 6:38 PM CDT [facility] Urine URINE SPECIMEN OBTAINED BY CLEAN CATCH PROCEDURE / Unknown Collection / Unknown 11/27/2017 6:22 PM CDT 11/27/2017 6:28 PM CDT Narrative [facility] - 11/27/2017 6:38 PM CDT Regino Silvestre MD LAB - URINALYSIS ORD ERABLES Performing Organization Address City/State/[facility] Co de Phone Number [facility] [address] [place] [address] * (ABNORMAL) URINALYSIS REFLEX MICROSCOPIC REFLEX CULTURE (11/27/2017 6:22 PM CDT) Color UA Yellow Straw, Yellow 11/27/2017 6:38 PM CDT [facility] Clarity UA Slt Cloudy(A) Clear 11/27/2017 6:38 PM CDT [facility] Glucose UA Negative Negative 11/27/2017 6:38 PM CDT [facility] Bilirubin UA Negative Negative 11/27/2017 6:38 PM CDT [facility] Ketone UA 1+(A) Negative 11/27/2017 6:38 PM CDT [facility] Specific [place] UA 1.017 1.005 - 1.030 11/27/2017 6:38 PM CDT [facility] Blood UA 3+(A) Negative 11/27/2017 6:38 PM CDT [facility] pH UA 6.0 5.0 - 8.0 pH 11/27/2017 6:38 PM CDT [facility] Protein UA 1+(A) Negative 11/27/2017 6:38 PM CDT [facility] Urobilinogen UA 2.0(A) Negative mg/dL 11/27/2017 6:38 PM CDT [facility] Nitrite UA Negative Negative 11/27/2017 6:38 PM CDT [facility] Leukocyte UA 2+(A) Negative 11/27/2017 6:38 PM CDT [facility] Urine Microscopy Urine microscopy to follow 11/27/2017 6:38 PM CDT [facility] Reflex Status Culture to follow 11/27/2017 6:38 PM CDT [facility] Urine URINE SPECIMEN OBTAINED BY CLEAN CATCH PROCEDURE / Unknown Collection / Unknown 11/27/2017 6:22 PM CDT 11/27/2017 6:28 PM CDT Narrative [facility] - 11/27/2017 6:38 PM CDT Regino Silvestre MD LAB - URINALYSIS ORD ERABLES [facility] [address] [place] [address] * (ABNORMAL) COMPREHENSIVE METABOLIC PANEL (11/27/2017 6:13 PM CDT) Glucose 92 74 - 106 mg/dL 11/27/2017 6:34 PM CDT [facility] Sodium 135(L) 136 - 145 mmol/L 11/27/2017 6:34 PM CDT [facility] Potassium 3.7 3.5 - 5.1 mmol/L 11/27/2017 6:34 PM CDT [facility] Chloride 104 98 - 107 mmol/L 11/27/2017 6:34 PM CDT [facility] CO2 24 22 - 31 mmol/L 11/27/2017 6:34 PM CDT [facility] Calcium 8.9 8.5 - 10.1 mg/dL 11/27/2017 6:34 PM CDT [facility] Anion Gap 7(L) 8 - 16 mmol/L 11/27/2017 6:34 PM CDT [facility] BUN 9 7 - 21 mg/dL 11/27/2017 6:34 PM CDT [facility] Creatinine 0.73 0.50 - 1.30 mg/dL 11/27/2017 6:34 PM CDT [facility] Alkaline Phosphatase 69 38 - 126 U/L 11/27/2017 6:34 PM CDT [facility] ALT 16 13 - 61 U/L 11/27/2017 6:34 PM CDT [facility] AST 14 5 - 40 U/L 11/27/2017 6:34 PM CDT [facility] Protein Total 8.0 6.4 - 8.2 gm/dL 11/27/2017 6:34 PM CDT [facility] Albumin 3.9 3.4 - 5.0 gm/dL 11/27/2017 6:34 PM CDT [facility] Bilirubin Total 0.3 0.2 - 1.0 mg/dL 11/27/2017 6:34 PM CDT [facility] eGFR by MDRD >60 >60 mL/min/1.7 3m2 11/27/2017 6:34 PM CDT [facility] eGFR by MDRD >60 >60 mL/min/1.7 3m2 11/27/2017 6:34 PM CDT [facility] Blood BLOOD SPECIMEN / Unknown Venipuncture / Unknown 11/27/2017 6:13 PM CDT 11/27/2017 6:15 PM CDT Regino Silvestre MD LAB - CHEMISTRY [facility] Organization Address City/State/[facility] Co de Phone Number [facility] [address] [place] [address] * (ABNORMAL) CBC W AUTO DIFFERENTIAL (11/27/2017 6:13 PM CDT) WBC 6.6 4.4 - 10.7 x10E9/L 11/27/2017 6:18 PM CDT [facility] WBC Corrected x10E9/L 11/27/2017 6:18 PM CDT [facility] RBC 4.98 3.80 - 5.20 x10E12/L 11/27/2017 6:18 PM CDT [facility] Hemoglobin 12.4 12.0 - 15.6 gm/dL 11/27/2017 6:18 PM CDT [facility] Hematocrit 38.5 35.9 - 45.5 % 11/27/2017 [facility] MCV 77.3(L) 80.7 - 98.3 fl 11/27/2017 6:[address] [facility] MCH 24.9(L) 26.7 - 34.0 pg 11/27/2017 6:[address] [facility] MCHC 32.2 30.8 - 35.9 gm/dL 11/27/2017 6:[address] [facility] Platelet Count 336 153 - 416 x10E9/L 11/27/2017 6:[address] [facility] RDW-CV 17.4(H) 12.1 - 14.9 % 11/27/2017 6:[address] [facility] MPV 9.3(L) 9.4 - 12.9 fl 11/27/2017 6:[address] [facility] Neutrophils % 59.1 44.0 - 73.0 % 11/27/2017 6:[address] [facility] Lymphocytes % 24.8 20.0 - 43.0 % 11/27/2017 6:[address] [facility] Monocytes % 12.0 5.0 - 13.0 % 11/27/2017 6:[address] [facility] Eosinophils % 2.9 0.0 - 6.0 % 11/27/2017 6:[address] [facility] Basophils % 0.9 0.0 - 2.0 % 11/27/2017 6:[address] [facility] Immature Granulocytes 0.3 0 - 1 % 11/27/2017 6:[address] [facility] Neutrophil Absolute 3.88 2.01 - 7.14 x10E9/L 11/27/2017 6:[address] [facility] Lymphocytes Absolute 1.63 1.07 - 3.94 x10E9/L 11/27/2017 6:[address] [facility] Monocytes Absolute 0.79 0.26 - 1.07 x10E9/L 11/27/2017 6:[address] [facility] Eosinophils Absolute 0.19 0 - 0.47 x10E9/L 11/27/2017 6:[address] [facility] Basophils Absolute 0.06 0 - 0.08 x10E9/L 11/27/2017 6:18 PM CDT [facility] Immature Granulocytes Absolute 0.02 0.00 - 0.06 x10E9/L 11/27/2017 6:18 PM CDT [facility] nRBC Auto 0 /100 WBC 11/27/2017 6:18 PM CDT [facility] Blood BLOOD SPECIMEN / Unknown Venipuncture / Unknown 11/27/2017 6:13 PM CDT 11/27/2017 6:15 PM CDT Regino Silvestre MD LAB - HEMATOLOGY ORD ERABLES [facility] [address] [place] [address] documented in this encounter Visit Diagnoses Diagnosis [...]
--- OUTSIDE RECORDS SUMMARY | 2024-09-25 20:08 | XMS_ITS | Encounter Summary ---
Author Organization [facility] Address [address] [place] [address] Care Team Providers Care Biztalk Architect Name Role Phone [facility], [facility] Primary Care Provider Unavailable Reason for Visit * Reason Comments IUD pt having heavier th an normal period and cannot find the string for her IUD placed 2 years ago Vaginal Bleeding Encounter Details Date Type Department Care Team (Late st Contact Info) Description 02/24/2017 7:33 PM CDT - 02/24/2017 8:21 PM CDT Emergency ER at [facility] [address] [place] [id number] Heavy menses due to IUD (HCC); [...] Discharge Instructions * Discharge Instructions* Criss March, RN [employer] - 02/24/2017 8:06 PM CDT Images from [...] Document Reviewed: 02/23/2014 ExitCare?? Patient Information ??2015 [employer]. This information is not intended to replace advice given to you by your health care provider. Make sure you discuss any questions you have with your health care provider. documented in this encounter Medications at Time of Discharge Medication Sig Dispensed Refills Start Date End Date albuterol HFA (PROVENTIL;VENTOLIN;WY OAIR) 108 (90 BASE) MCG/ACT inhaler Inhale [...] questions/concerns voiced by pt. * Criss March, RN [employer] - 02/24/2017 8:21 PM CDT Provider contact with the patient: 02/26/2017 21:17 Datreion [place] [id number] [facility] EMERGENCY DEPARTMENT [...] % Lymph 29.2 20.0 - 43.0 % Menard 10.3 5.0 - 13.0 % Eos 3.3 0.0 - 6.0 % Baso 0.7 0.0 - 2.0 % Immature Grans 0.4 0 - 1 % Neutro Abs 5.02 2.01 - 7.14 x10E9/L Lymph Abs 2.62 1.07 - 3.94 x10E9/L Menard Abs 0.92 0.26 - 1.07 x10E9/L Eosin [...] the importance of following up with her doctor--[facility] Brie--(or the referral physician as instructed. The patient verbalized understanding of the discharge instructions. Diagnosis: Encounter Diagnoses Name Primary? Heavy menses due to IUD ??? Vulvovaginal candidiasis New Medications: Discharge Medication List as of 02/24/2017 8:07 PM I have advised the patient to follow-up with: Brie, [facility] [address] [facility] [id number] Schedule an appointment as soon as possible [...] pelvic at this time. * Mariah Casas, RN [employer] - 02/24/2017 6:38 PM CDT PIT Note [...] BETA BLOOD QUANTITATIVE (02/24/2017 6:43 PM CDT) [facility] hCG Quantitative <1 mIU/mL 02/25/20 7:06 PM CDT [facility] Blood BLOOD SPECIMEN / Unknown 02/24/2017 6:43 PM CDT 02/24/2017 6:47 PM CDT Narrative [facility] - 02/24/2017 7:06 PM CDT ? [...] FSH >20 IU/L makes unlikely. Mariah Casas RN [employer] LAB - CHEMISTRY ORDERABLES Performing Organization Address City/State/[facility] Co de Phone Number [facility] [address] [place] [address] * (ABNORMAL) COMPREHENSIVE METABOLIC PANEL (02/24/2017 6:43 PM CDT) Glucose 89 74 - 106 mg/dL 02/24/2017 7:04 PM CDT [facility] Sodium 140 136 - 145 mmol/L 02/24/2017 7:04 PM CDT [facility] Potassium 3.7 3.5 - 5.1 mmol/L [...] - 40 U/L 02/24/2017 7:04 PM CDT [facility] Protein Total 7.3 6.4 - [...] >60 mL/min/1.7 3m2 02/24/2017 7:04 PM CDT [facility] Blood BLOOD SPECIMEN / Unknown 02/24/2017 6:43 PM CDT 02/24/2017 6:47 PM CDT Mariah Casas RN [employer] LAB - CHEMISTRY ORDERABLES Performing Organization Address City/State/[facility] Co de Phone Number [facility] [address] [place] [address] * (ABNORMAL) CBC W AUTO DIFFERENTIAL (02/24/2017 6:43 PM CDT) WBC 9.0 4.4 - 10.7 x10E9/L 02/24/2017 6:54 PM CDT [facility] WBC Corrected x10E9/L 02/24/2017 6:54 PM CDT [facility] RBC 4.35 3.80 - 5.20 x10E12/L 02/24/2017 6:54 PM CDT [facility] Hemoglobin 10.9(L) 12.0 - 15.6 gm/dL 02/24/2017 6:54 PM CDT [facility] Hematocrit 33.5(L) 35.9 - 45.5 % 02/24/2017 6:54 PM CDT [facility] MCV 77.0(L) 80.7 - 98.3 fl 02/24/2017 6:54 PM CDT [facility] MCH 25.1(L) 26.7 - 34.0 pg 02/24/2017 6:54 PM CDT [facility] MCHC 32.5 30.8 - 35.9 gm/dL 02/24/2017 6:54 PM [facility] Platelet Count 324 153 - 416 x10E9/L 02/24/2017 6:54 PM [facility] RDW-CV 16.7(H) 12.1 - 14.9 % 02/24/2017 6:54 PM [facility] MPV 9.3(L) 9.4 - 12.9 fl 02/24/2017 6:54 PM T [facility] Neutrophils % 56.1 44.0 - 73.0 % 02/24/2017 6:54 PM [facility] Lymphocytes % 29.2 20.0 - 43.0 % 02/24/2017 6:54 PM T [facility] Monocytes % 10.3 5.0 - 13.0 % 02/24/2017 6:54 PM CDT [facility] Eosinophils % 3.3 0.0 - 6.0 % 02/24/2017 6:54 PM CDT [facility] Basophils % 0.7 0.0 - 2.0 % 02/24/2017 6:54 PM T [facility] Immature Granulocytes 0.4 0 - 1 % 02/24/2017 6:54 PM [facility] Neutrophil Absolute 5.02 2.01 - 7.14 x10E9/L 02/24/2017 6:54 PM CDT [facility] Lymphocytes Absolute 2.62 1.07 - 3.94 x10E9/L 02/24/2017 6:54 PM CDT [facility] Monocytes Absolute 0.92 0.26 - 1.07 x10E9/L 02/24/2017 6:54 PM CDT [facility] Eosinophils Absolute 0.30 0 - 0.47 x10E9/L 02/24/2017 6:54 PM CDT [facility] Basophils Absolute 0.06 0 - 0.08 x10E9/L 02/24/2017 6:54 PM CDT [facility] Immature Granulocytes Absolute 0.04 0.00 - 0.06 x10E9/L 02/24/2017 6:54 PM CDT [facility] nRBC Auto 0 /100 WBC 02/24/2017 6:54 PM CDT [facility] Blood BLOOD SPECIMEN / Unknown 02/24/2017 6:43 PM CDT 02/24/2017 6:47 PM CDT Mariah Casas RN [employer] LAB - HEMATOLOG Y ORDERABLES Performing Organization Address City/State/[facility] Co de Phone Number [facility] [address] [place] [address] documented in this encounter Visit Diagnoses Diagnosis [...] RN) documented in this encounter Care Teams Biztalk Architect Relationship Specialty Start Date End Date [facility] PCP - General 10/10/16 10/12/17 documented as of this encounter
--- OUTSIDE RECORDS SUMMARY | 2024-09-25 20:08 | XMS_ITS | Encounter Summary ---
Author Organization [facility] [employer] Address [address] [facility] [place] [address] Care Team Providers Care Nurse Sitter Name Role Phone Rema Austin MD Primary Care Provider [phone] Reason for Visit * Reason Comments Referral Pt BIBEMS from OSH f or urology referral. OSH confirms active UTI and kidney stones. Patient reports 8/10 flank pain and abdominal pain. VSS. * Auth/Cert Specialty Diagnoses / Procedures Referred By Norm t Referred To Contact Referral ID Status Reason Start Date Expiration Date Visits Re quested Visits Authorized [id number] 1 1 Encounter Details Date Type Department Care Team (Late st Contact Info) Description 11/24/2020 - 11/26/2020 Surgery [facility] OP [address] [place] [phone] Miller Zamora MD [address] [facility] 2[address] DIV [place] [phone] Cystoscopy; Right Retrograde Pyelogram; Stent Placement Surgery Details Date/Time Status Location OR Service Patient Class Case Class Case Type Trauma Case? 11/24/2020 4:29 PM Posted [facility] OR OR 07 Urology Inpatient Level [...] this encounter Discharge Summaries * Olga Knott, NEELAM-ORACLE DATABASE DEVELOPER - 11/26/2020 8:23 AM CDT Physician Discharge Summary [facility] Division of Urologic Surgery Inpatient Discharge Summary Miller Zamora MD Patient ID: Alysha Jolley [id number] 30 year old 1990 Admit date: 11/24/2020 [...] shewas discharged home. Family to transport in [facility]. A surgery order for Cystoscopy, RIGHT retrograde pyelogram, ureteroscopy, laser lithotripsy, stone basket extraction, possible stent exchange was placed. The outpatient surgery manager should reachout to the patient with a [...] for input(s): CBC, PSA in the last 08214 hours. Invalid input(s): UA Updated imaging: OSH [...] your kidney stone. Contact information: [facility] [address] Discharge Instructions We will call you this [...] or the recovery process, please contact [facility] Urology at [phone] during regular business hours. On weekends or in the evening, please contact [facility] Hospitalat [phone] and ask for whoever is workforce consultant for Urology. Ureteral Stent Placement WHAT [...] treatment. The above information is an educational therapy teacher only. It is not intended as medical advice for individual conditions or treatments. Talk to your doctor, nurse or pharmacist before following any medical regimen to see if it is safe and effective for you. ?? Copyright [employer] 2018 Information is for End User's use only and may not be sold, redistributed or otherwise used for commercial purposes. All illustrations and images included in CareNotes?? are the copyrighted property of [employer] or [employer] Ureteral Stent Placement WHAT YOU NEED TO [...] ask them during your visits. ?? Copyright [employer] 2019 Information is for End User's use only and may not be sold, redistributed or otherwise used for commercial purposes. All illustrations and images included in CareNotes?? are the copyrighted property of [employer] or [employer] The above information is an educational therapy teacher only. It is not intended as [...] or the recovery process, please contact [facility] Urology at [phone] during regular business hours. On weekends or in the evening, [facility] [phone] and ask for whoever is workforce consultant for Urology. Ureteral Stent Placement WHAT [...] treatment. The above information is an educational therapy teacher only. It is not intended as medical advice for individual conditions or treatments. Talk to your doctor, nurse or pharmacist before following any medical regimen to see if it is safe and effective for you. ?? Copyright [employer] 2019 Information is for End User's use only and may not be sold, redistributed or otherwise used for commercial purposes. All illustrations and images included in CareNotes?? are the copyrighted property of [employer]. or [employer] Ureteral Stent Placement WHAT YOU NEED TO [...] ask them during your visits. ?? Copyright [employer] 2019 Information is for End User's use only and may not be sold, redistributed or otherwise used for commercial purposes. All illustrations and images included in CareNotes?? are the copyrighted property of [employer] or [employer] The above information is an educational therapy teacher only. It is not intended as [...] of care at discharge: Home DaTreion Tita [id number] 30 year old 1990 ?? Admit date: 11/24/2020 Discharge Disposition : Home Basic Needs Assessment (BNA) Score: 5 Transportation at Discharge: Pt arranged Pt discharged prior to BNA. No needs identified Jacklyn Sam RN Case Management [phone] * Olga Knott APRN-CNP - 11/26/2020 9:26 [...] (1.626 m) Wt 193 lb (87.5 kg) GvJ640% BMI 33.13 kg/m2 Physical Exam: General: NAD, [...] input(s): PROTIME, INR, PTT in the last 97992 hours. No results for input(s): PHART, PO2ART, LWA3ZBR, BEART in the last 88456 hours. Lab results smartLinks are not currently [...] exchange in roughly 6 weeks. Olga Knott APRN-ORACLE DATABASE DEVELOPER 11/26/2020 8:14 AM * Caroline Regalado RN [...] input(s): PROTIME, INR, PTT in the last 07601 hours. No results for input(s): PHART, PO2ART, OUE6PVF, BEART in the last 54016 hours. Lab results smartLinks are not currently [...] with RIGHT pelvic pain. Patient presented to [place] with this pain and underwent CT scan [...] draped in sterile fashion. We took a 22-Mauritanian cystoscope was inserted into the urethra. Bladder [...] obtained. We then attempted to place a 6-Mauritanian ureteral stents, met resistance. Thus, we then used a 4.8-Mauritanian x26 cm stent and placed this over the wire with some difficulty into the right renal pelvis. We saw good a curl in the renal pelvis and a good curl in the bladder. Bladder was drained. She was taken to recovery in stable condition. I was present for the entire procedure. MD CRISS Becerril/[place].[id number] Doc ID: [id number] Job ID: [id number] * Brief Op Note - Shyam Rodriguez [...] RN - 11/24/2020 3:00 PM CDT Bed: [address] Expected date: Expected time: Means of [...] of lithotripsy BIBEMS as a transfer from [facility] with complaints of worsening suprapubic pain for [...] file Gets together: Not on file Attends alevism service: Not on file Active member of [...] acid amplification assay performance was validated by [facility]. This test has been authorized by the [...] CULTURE URINE STAT 11/24/2020 6:09 AM CDT [place] CYSTOURETHROSCOPY,UR ETER CATHETER Level 3 Disorder Special Needs Level 3 @ 0950. SRC documented in this encounter Results * [place] CYSTO SURGERY (11/26/2020 3:55 PM CDT) Narrative [facility] - 11/30/2020 9:41 PM CDT Fluoroscopy was used for this exam in the OR. Please see the Operative report. Miller Zamora MD FLUOROSCOPY ORDERA BLES [facility] * (ABNORMAL) CBC W AUTO DIFFERENTIAL (11/26/2020 4:50 AM CDT) WBC 7.6 3.5 - 10.5 10? 3 /uL 11/26/2020 5:42 AM CDT [facility] Comment:Confirmed by repeat analysis. RBC 4.05 3.90 - 5.00 10? 6 /uL 11/26/2020 5:42 AM [facility] Hemoglobin 10.6(L) 12.0 - 15.5 g/dL 11/26/2020 5:42 AM [facility] Hematocrit 32.6(L) 35.0 - 45.0 % 11/26/2020 5:42 AM [facility] MCV 80.5(L) 81.0 - 97.0 fL 11/26/2020 5:42 AM [facility] MCH 26.2(L) 28.0 - 34.0 pg 11/26/2020 5:42 AM [facility] MCHC 32.5 32.0 - 36.0 g/dL 11/26/2020 5:42 AM [facility] Platelet Count 315 150 - 400 10? 3 /uL 11/26/2020 5:42 AM [facility] RDW-SD 49.8 36.0 - 50.0 fL 11/26/2020 5:42 AM [facility] RDW-CV 16.9(H) 11.2 - 14.8 % 11/26/2020 5:42 AM [facility] MPV 9.9 9.3 - 12.8 fL 11/26/2020 5:42 AM [facility] nRBC Absolute 0.00 0 10? 3 /uL 11/26/2020 5:42 AM [facility] nRBC Auto 0.0 0 /100 WBC 11/26/2020 5:42 AM [facility] Neutrophils % 74.5(H) 35.0 - 70.0 % 11/26/2020 5:42 AM [facility] Lymphocytes % 13.7(L) 19.7 - 55.1 % 11/26/2020 5:42 AM [facility] Monocytes % 10.9 3.0 - 15.0 % 11/26/2020 5:42 AM [facility] Eosinophils % 0.1 0.0 - 6.0 % 11/26/2020 5:42 AM [facility] Basophil % 0.4 0.0 - 1.5 % 11/26/2020 5:42 AM [facility] Neutrophils Absolute 5.7 1.6 - 7.0 10? 3 /uL 11/26/2020 5:42 AM [facility] Lymphocyte Absolute 1.0 0.8 - 2.9 10? 3 /uL 11/26/2020 5:42 AM [facility] Monocytes Absolute 0.83(H) 0.14 - 0.66 10? 3 /uL 11/26/2020 5:42 AM [facility] Eosinophils Absolute 0.01 0.00 - 0.45 10? 3 /uL 11/26/2020 5:42 AM [facility] Basophils Absolute 0.03 0.00 - 0.06 10? 3 /uL 11/26/2020 5:42 AM [facility] Immature Granulocytes % 0.4 0.0 - 1.0 % 11/26/2020 5:42 AM [facility] Blood BLOOD SPECIMEN / Unknown Lab Venipuncture / Unknown 11/26/2020 4:50 AM CDT 11/26/2020 5:27 AM CDT Yair Medellin MD LAB - HEMATOLOG Y ORDERABLES Performing Organization Address City/State/[facility] Co de Phone Number [facility] [address] [place] [phone], [facility] [phone] * (ABNORMAL) BASIC METABOLIC PANEL (CALCIUM TOTAL) (11/26/2020 4:50 AM CDT) BUN 14 7 - 26 mg/dL 11/26/2020 5:50 AM [facility] Creatinine 0.7 0.6 - 1.2 mg/dL 11/26/2020 5:50 AM [facility] Sodium 140 136 - 145 mmol/L 11/26/2020 5:50 AM [facility] Potassium 3.9 3.5 - 4.5 mmol/L 11/26/2020 5:50 AM [facility] Chloride 105 98 - 107 mmol/L 11/26/2020 5:50 AM [facility] CO2 26 22 - 29 mmol/L 11/26/2020 5:50 AM [facility] Glucose 116(H) 70 - 115 mg/dL 11/26/2020 5:50 AM [facility] Calcium 9.3 8.4 - 10.2 mg/dL 11/26/2020 5:50 AM [facility] Anion Gap 13 8 - 18 11/26/2020 5:50 AM [facility] BUN/Creatinine Ratio 20 7 - 23 11/26/2020 5:50 AM [facility] Osmolality Calculated 291 270 - 300 mOsm/kg 11/26/2020 5:50 AM [facility] eGFR >60 >60 mL/min/1.7 3 m2 11/26/2020 5:50 AM [facility] Blood BLOOD SPECIMEN / Unknown Lab Venipuncture / Unknown 11/26/2020 4:50 AM CDT 11/26/2020 5:27 AM CDT Yair Medellin MD LAB - CHEMISTRY ORDERABLES [facility] [address] [place] [phone], [facility] [phone] * (ABNORMAL) CBC W AUTO DIFFERENTIAL (11/25/2020 4:04 AM CDT) WBC 5.0 3.5 - 10.5 10? 3 /uL 11/25/2020 4:43 AM [facility] RBC 3.97 3.90 - 5.00 10? 6 /uL 11/25/2020 4:43 AM [facility] Hemoglobin 10.3(L) 12.0 - 15.5 g/dL 11/25/2020 4:43 AM [facility] Hematocrit 32.1(L) 35.0 - 45.0 % 11/25/2020 4:43 AM [facility] MCV 80.9(L) 81.0 - 97.0 fL 11/25/2020 4:43 AM [facility] MCH 25.9(L) 28.0 - 34.0 pg 11/25/2020 4:43 AM [facility] MCHC 32.1 32.0 - 36.0 g/dL 11/25/2020 4:43 AM [facility] Platelet Count 291 150 - 400 10? 3 /uL 11/25/2020 4:43 AM [facility] RDW-SD 50.4(H) 36.0 - 50.0 fL 11/25/2020 4:43 AM [facility] RDW-CV 17.0(H) 11.2 - 14.8 % 11/25/2020 4:43 AM [facility] MPV 9.3 9.3 - 12.8 fL 11/25/2020 4:43 AM [facility] nRBC Absolute 0.00 0 10? 3 /uL 11/25/2020 4:43 AM [facility] nRBC Auto 0.0 0 /100 WBC 11/25/2020 4:43 AM [facility] Neutrophils % 46.1 35.0 - 70.0 % 11/25/2020 4:43 AM [facility] Lymphocytes % 34.1 19.7 - 55.1 % 11/25/2020 4:43 AM [facility] Monocytes % 14.8 3.0 - 15.0 % 11/25/2020 4:43 AM [facility] Eosinophils % 3.8 0.0 - 6.0 % 11/25/2020 4:43 AM [facility] Basophil % 0.6 0.0 - 1.5 % 11/25/2020 4:43 AM [facility] Neutrophils Absolute 2.3 1.6 - 7.0 10? 3 /uL 11/25/2020 4:43 AM [facility] Lymphocyte Absolute 1.7 0.8 - 2.9 10? 3 /uL 11/25/2020 4:43 AM [facility] Monocytes Absolute 0.74(H) 0.14 - 0.66 10? 3 /uL 11/25/2020 4:43 AM [facility] Eosinophils Absolute 0.19 0.00 - 0.45 10? 3 /uL 11/25/2020 4:43 AM [facility] Basophils Absolute 0.03 0.00 - 0.06 10? 3 /uL 11/25/2020 4:43 AM [facility] Immature Granulocytes % 0.6 0.0 - 1.0 % 11/25/2020 4:43 AM [facility] Blood BLOOD SPECIMEN / Unknown Lab Venipuncture / Unknown 11/25/2020 4:04 AM CDT 11/25/2020 4:25 AM CDT Yair Medellin MD LAB - HEMATOLOG Y ORDERABLES [facility] [address] [place] [address], [facility] [phone] * (ABNORMAL) BASIC METABOLIC PANEL (CALCIUM TOTAL) (11/25/2020 4:04 AM CDT) BUN 13 7 - 26 mg/dL 11/25/2020 4:52 AM [facility] Creatinine 0.7 0.6 - 1.2 mg/dL 11/25/2020 4:52 AM [facility] Sodium 140 136 - 145 mmol/L 11/25/2020 4:52 AM [facility] Potassium 3.8 3.5 - 4.5 mmol/L 11/25/2020 4:52 AM [facility] Chloride 108(H) 98 - 107 mmol/L 11/25/2020 4:52 AM [facility] CO2 27 22 - 29 mmol/L 11/25/2020 4:52 AM [facility] Glucose 102 70 - 115 mg/dL 11/25/2020 4:52 AM [facility] Calcium 8.2(L) 8.4 - 10.2 mg/dL 11/25/2020 4:52 AM [facility] Anion Gap 9 8 - 18 11/25/2020 4:52 AM [facility] BUN/Creatinine Ratio 19 7 - 23 11/25/2020 4:52 AM [facility] Osmolality Calculated 290 270 - 300 mOsm/kg 11/25/2020 4:52 AM [facility] eGFR >60 >60 mL/min/1.7 3 m2 11/25/2020 4:52 AM [facility] Blood BLOOD SPECIMEN / Unknown Lab Venipuncture / Unknown 11/25/2020 4:04 AM CDT 11/25/2020 4:25 AM CDT Yair Medellin MD LAB - CHEMISTRY ORDERABLES [facility] [address] [place] [phone], [facility] [phone] * (ABNORMAL) COMPREHENSIVE METABOLIC PANEL (11/24/2020 6:25 AM CDT) BUN 13 7 - 26 mg/dL 11/24/2020 6:57 AM [facility] Creatinine 0.6 0.6 - 1.2 mg/dL 11/24/2020 6:57 AM [facility] Sodium 139 136 - 145 mmol/L 11/24/2020 6:57 AM [facility] Potassium 3.0(L) 3.5 - 4.5 mmol/L 11/24/2020 6:57 AM [facility] Chloride 106 98 - 107 mmol/L 11/24/2020 6:57 AM [facility] CO2 26 22 - 29 mmol/L 11/24/2020 6:57 AM [facility] Glucose 81 70 - 115 mg/dL 11/24/2020 6:57 AM [facility] Calcium 8.4 8.4 - 10.2 mg/dL 11/24/2020 6:57 AM [facility] Protein Total 6.2 6.0 - 8.3 g/dL 11/24/2020 6:57 AM [facility] Albumin 3.4 3.4 - 5.0 g/dL 11/24/2020 6:57 AM [facility] Bilirubin Total 0.4 0.2 - 1.2 mg/dL 11/24/2020 6:57 AM [facility] Alkaline Phosphatase 44 40 - 150 Units/L 11/24/2020 6:57 AM [facility] ALT 5 0 - 55 Units/L 11/24/2020 6:57 AM [facility] AST 10 5 - 34 Units/L 11/24/2020 6:57 AM [facility] Anion Gap 10 8 - 18 11/24/2020 6:57 AM [facility] BUN/Creatinine Ratio 22 7 - 23 11/24/2020 6:57 AM [facility] Osmolality Calculated 287 270 - 300 mOsm/kg 11/24/2020 6:57 AM [facility] Albumin/Globulin Ratio 1.2 1.1 - 2.3 11/24/2020 6:57 AM [facility] eGFR >60 >60 mL/min/1.7 3 m2 11/24/2020 6:57 AM [facility] Blood BLOOD SPECIMEN / Unknown Venipuncture / Unknown 11/24/2020 6:25 AM CDT 11/24/2020 6:32 AM CDT Bal Sanchez PA-C LAB - CHEM ISTRY ORDERABLES [facility] [address] [place] [address], [facility] [phone] * (ABNORMAL) CBC W AUTO DIFFERENTIAL (11/24/2020 6:25 AM CDT) WBC 7.5 3.5 - 10.5 10? 3 /uL 11/24/2020 6:38 AM [facility] RBC 4.05 3.90 - 5.00 10? 6 /uL 11/24/2020 6:38 AM [facility] Hemoglobin 10.7(L) 12.0 - 15.5 g/dL 11/24/2020 6:38 AM [facility] Hematocrit 32.9(L) 35.0 - 45.0 % 11/24/2020 6:38 AM [facility] MCV 81.2 81.0 - 97.0 fL 11/24/2020 6:38 AM [facility] MCH 26.4(L) 28.0 - 34.0 pg 11/24/2020 6:38 AM [facility] MCHC 32.5 32.0 - 36.0 g/dL 11/24/2020 6:38 AM [facility] Platelet Count 305 150 - 400 10? 3 /uL 11/24/2020 6:38 AM [facility] RDW-SD 50.4(H) 36.0 - 50.0 fL 11/24/2020 6:38 AM [facility] RDW-CV 17.1(H) 11.2 - 14.8 % 11/24/2020 6:38 AM [facility] MPV 9.1(L) 9.3 - 12.8 fL 11/24/2020 6:38 AM [facility] nRBC Absolute 0.00 0 10? 3 /uL 11/24/2020 6:38 AM [facility] nRBC Auto 0.0 0 /100 WBC 11/24/2020 6:38 AM [facility] Neutrophils % 46.9 35.0 - 70.0 % 11/24/2020 6:38 AM [facility] Lymphocytes % 35.4 19.7 - 55.1 % 11/24/2020 6:38 AM [facility] Monocytes % 12.1 3.0 - 15.0 % 11/24/2020 6:38 AM [facility] Eosinophils % 4.2 0.0 - 6.0 % 11/24/2020 6:38 AM [facility] Basophil % 0.9 0.0 - 1.5 % 11/24/2020 6:38 AM [facility] Neutrophils Absolute 3.5 1.6 - 7.0 10? 3 /uL 11/24/2020 6:38 AM [facility] Lymphocyte Absolute 2.6 0.8 - 2.9 10? 3 /uL 11/24/2020 6:38 AM [facility] Monocytes Absolute 0.90(H) 0.14 - 0.66 10? 3 /uL 11/24/2020 6:38 AM [facility] Eosinophils Absolute 0.31 0.00 - 0.45 10? 3 /uL 11/24/2020 6:38 AM [facility] Basophils Absolute 0.07(H) 0.00 - 0.06 10? 3 /uL 11/24/2020 6:38 AM CDT [facility] Immature Granulocytes % 0.5 0.0 - 1.0 % 11/24/2020 6:38 AM CDT [facility] Blood BLOOD SPECIMEN / Unknown Venipuncture / Unknown 11/24/2020 6:25 AM CDT 11/24/2020 6:32 AM CDT Bal Sanchez PA-C LAB - LAURA TOLOGY ORDERABLES [facility] [address] [place] [address], [facility] [phone] * SARS-COV-2 (COVID-19)+INFLU A+B PCR RAPID (11/24/2020 6:22 AM CDT) COVID-19 PCR Not detected Not detected 11/25/19 7:00 AM CDT [facility] Influenza A Rapid JOSHUA Not Detected Not Detected 11/24/2020 7:00 AM CDT [facility] Influenza B JOSHUA Rapid Not Detected Not Detected 11/24/2020 7:00 AM CDT [facility] Microbiology SPECIMEN FROM NASOPHARYNGEAL STRUCTURE / Unknown Collection / Unknown 11/24/2020 6:22 AM CDT 11/24/2020 6:32 AM CDT Narrative [facility] - 11/24/2020 7:00 AM CDT Influenza [...] acid amplification assay performance was validated by [facility]. This test has been authorized by the [...] - MICR OBIOLOGY ORDERABLES Performing Organization Address City/[facility]/ZIP Co de Phone Number [facility] [address] [place] [address], [facility] [phone] * CULTURE URINE (11/24/2020 6:09 AM CDT) Culture Urine >100,000 CFU/mL urogenital marco CHRYSTAL 11/25/2020 1:43 PM CDT [facility] Urine URINE SPECIMEN OBTAINED BY CLEAN CATCH PROCEDURE / Unknown Collection / Unknown 11/24/2020 6:09 AM CDT 11/24/2020 6:13 AM CDT Yair Medellin MD LAB - MICROBIOL OGY ORDERABLES [facility] [address] [place] [address], [facility] [phone] * (ABNORMAL) URINALYSIS W/MICROSCOPIC NO CULTURE (11/24/2020 6:09 AM CDT) Color UA Yellow Straw, Yellow, Colorless 11/24/2020 6:27 AM CDT [facility] Clarity UA Cloudy(A) Clear, Slt Cloudy 11/24/2020 6:27 AM CDT [facility] Specific [place] UA 1.024 1.005 - 1.030 11/24/2020 6:27 AM CDT [facility] pH UA 6.0 5.0 - 8.0 pH 11/24/2020 6:27 AM [facility] Protein UA 1+(A) Negative mg/dL 11/24/2020 6:27 AM [facility] Glucose UA Negative Negative mg/dL 11/24/2020 6:27 AM [facility] Ketone UA 1+(A) Negative mg/dL 11/24/2020 6:27 AM [facility] Bilirubin UA Negative Negative mg/dL 11/24/2020 6:27 AM [facility] Blood UA Negative Negative 11/24/2020 6:27 AM [facility] Nitrite UA Negative Negative 11/24/2020 6:27 AM [facility] Leukocyte Esterase 3+(A) Negative 11/24/2020 6:27 AM [facility] Urobilinogen UA 2.0(A) Negative mg/dL 11/24/2020 6:27 AM [facility] RBC UA 11-20(A) None Seen, 0-2, 3-5 /HPF 11/24/2020 6:27 AM [facility] WBC UA 21-50(A) None Seen, 0-5 /HPF 11/24/2020 6:27 AM [facility] Bacteria UA 1+(A) None, Trace /HPF 11/24/2020 6:27 AM [facility] Squamous Epithelial Cells UA >20(A) None Seen, 0-2 /HPF 11/24/2020 6:27 AM [facility] Mucus UA 4+(A) None, 1+ /LPF 11/24/2020 6:27 AM [facility] Urine URINE SPECIMEN OBTAINED BY CLEAN CATCH PROCEDURE / Unknown Collection / Unknown 11/24/2020 6:09 AM CDT 11/24/2020 6:13 AM [facility] - 11/24/2020 6:[address] [facility] Yair Medellin MD LAB - URINALYSI S ORDERABLES [facility] [address] [place] [address], [facility] [phone] * HCG URINE QUALITATIVE (11/24/2020 6:09 AM CDT) Test Urine Negative Negative 11/24/2020 6:33 AM CDT [facility] Urine URINE / Unknown Collection / Unknown 11/24/2020 6:09 AM CDT 11/24/2020 6:13 AM CDT Bal Sanchez PA-C LAB - URIN ALYSIS ORDERABLES [facility] [address] [place] [address], [facility] [phone] documented in this encounter Visit Diagnoses Diagnosis [...] 1241 documented in this encounter Care Teams Nurse Sitter Relationship Specialty Start Date End Date Rema Austin MD [address] [place] [address] [place] [address] PCP - General Family Medicine 11/24/20 02/20/21 documented as of this encounter
--- OUTSIDE RECORDS SUMMARY | 2024-09-25 20:08 | XMS_ITS | Encounter Summary ---
Author Organization [facility] Address [address] [facility] [place] [address] Care Team Providers Care Automated Process Operator Name Role Phone Unavailable Primary Care Provider Unavailabl e Reason for Visit * Reason Comments Eye Problem irritation both eyes for one week/no reddness or tearing noted/pt states having drainage in right eye/hx allergies Encounter Details Date Type Department Care Team (Late st Contact Info) Description 10/13/2017 11:33 AM DOCUMENT PROCESSOR - 10/13/2017 12:29 PM DOCUMENT PROCESSOR Emergency ER at [facility] [address] [place] [address] Lalo Frausto MD [address] [place] [address] [place] [address] Conjunctivitis of both eyes, unspecified conjunctivitis type [...] Comments Blood Pressure 128/82 10/13/2017 11:10 AM DOCUMENT PROCESSOR Pulse 94 10/13/2017 11:10 AM DOCUMENT PROCESSOR Temperature 36.9 ??C (98.5 ??F) 10/13/2017 11:[address] Respiratory Rate 16 10/13/2017 11:10 AM DOCUMENT PROCESSOR Oxygen Saturation 100% 10/13/2017 11:10 AM DOCUMENT PROCESSOR Inhaled Oxygen Concentration - - Weight 85.7 kg (189 lb) 10/13/2017 11:10 AM DOCUMENT PROCESSOR Height 162.6 cm (5' 4 ) 10/13/2017 11:10 AM DOCUMENT PROCESSOR Body Mass Index 32.44 10/13/2017 11:10 AM DOCUMENT PROCESSOR documented in this encounter Functional Status Functional [...] Lalo Frausto MD - 10/13/2017 12:16 PM DOCUMENT PROCESSOR Images from the original note were not [...] mascara and other eye makeup. ?? 2017 [employer] Information is for End User's use only and may not be sold, redistributed or otherwise used for commercial purposes. All illustrations and images included in CareNotes?? are the copyrighted property of A.D.A.M., Inc. or [employer]. The above information is an transfusion aide only. It is not intended as medical advice for individual conditions or treatments. Talk to your doctor, nurse or pharmacist before following any medical regimen to see if it is safe and effective for you. MENT PROCESSOR documented in this encounter Medications at Time [...] with the patient: 10/13/2017 11:[address] [facility] EMERGENCY DEPARTMENT History [...] have advised the patient to follow-up with: [facility] Emergency Department [address] [place] [address] As needed, If symptoms worsen Lucas Alatorre MD [address] [place] [address] Schedule an appointment as soon as possible [...] Lalo Frausto MD , 10/13/2017 12:16 PM MENT PROCESSOR * Jayjay Roberts EMT-P - 10/13/2017 11:39 AM CST Patient presents with complaint of bilateral eye irritation, itching, watering and mucoid drainage.The patient states that she had the same symptoms isolated to her left eye that occurred last month, but resolved after being evaluated and treated in this ED, however has returned bilaterally. The patient is resting in chair in room, [facility]. MENT PROCESSOR documented in this encounter Plan of Treatment Not on file documented as of this encounter Visit Diagnoses Diagnosis Conjunctivitis of both eyes, unspecified conjunctivitis type documented in this encounter Active and Recently Administered Medications Times are shown in DOCUMENT PROCESSOR. Scheduled Medication Order 10/11/2017 10/12/2017 10/13/2017 fluorescein (FUL-KONSTANTIN) ophthalmic strip 1 strip 1 strip, Each Eye, ONCE, 1 dose, On Thu10/13/17 at 1215 1215 (Due) tetracaine 0.5% 0.5 % ophthalmic solution 1 drop 1 drop, Each Eye, NOW, 1 dose, On Thu10/13/17 at 1200 1200 (Due) documented in this encounter
--- OUTSIDE RECORDS SUMMARY | 2024-09-25 20:08 | XMS_ITS | Encounter Summary ---
Author Organization [facility] Address [address] [facility] [place] [address] Care Team Providers Care Turn Operator Name Role Phone Rema Austin MD Primary Care Provider [phone] Reason for Visit * Reason Comments Referral Pt BIBEMS from OSH f or urology referral. OSH confirms active UTI and kidney stones. Patient reports 8/10 flank pain and abdominal pain. VSS. * Auth/Cert Specialty Diagnoses / Procedures Referred By Norm t Referred To Contact Referral ID Status Reason Start Date Expiration Date Visits Re quested Visits Authorized [id number] 1 1 Encounter Details Date Type Department Care Team (Late st Contact Info) Description 11/25/2020 2:00 PM CDT - 11/25/2020 3:03 PM CDT Surgery [facility] [address] [place] [phone] Miller Zamora MD [address] [facility] 2L [place] [id number] CYSTOSCOPY WITH RIGHT RETROGRADE PYELOGRAM; STENT PLACEMENT Surgery Details Date/Time Status Location OR Service Patient Class Case Class Case Type Trauma Case? 11/25/2020 2:00 PM Posted [facility] OR OR Urology Inpatient Panel 1 Procedure [...] this encounter Discharge Summaries * Olga Knott APRN-ACTIVITY ASSISTANT - 11/26/2020 8:23 AM CDT Physician Discharge Summary [facility] Division of Urologic Surgery Inpatient Discharge Summary Miller Zamora MD Patient ID: Alysha Jolley [id number] 30 year old 1990 Admit date: 11/24/2020 [...] shewas discharged home. Family to transport in [facility]. A surgery order for Cystoscopy, RIGHT retrograde pyelogram, ureteroscopy, laser lithotripsy, stone basket extraction, possible stent exchange was placed. The outpatient spud driller should reachout to the patient with a [...] for input(s): CBC, PSA in the last 27861 hours. Invalid input(s): UA Updated imaging: OSH [...] stone. Contact information: [address] [facility] ER OF UROLOGIC SURGERY [facility] [address] Discharge Instructions We will call you this [...] [facility] Urology at [phone] during regular business hours. On weekends or in the evening, please contact [facility] Hospitalat [phone] and ask for whoever is button clamper for Urology. Ureteral Stent Placement WHAT YOU [...] refuse treatment. The above information is an computer aided design drafter only. It is not intended as medical advice for individual conditions or treatments. Talk to your doctor, nurse or pharmacist before following any medical regimen to see if it is safe and effective for you. ?? Copyright trend.ly 2019 Information is for End User's use only and may not be sold, redistributed or otherwise used for commercial purposes. All illustrations and images included in CareNotes?? are the copyrighted property of [employer]. or [employer] Ureteral Stent Placement WHAT YOU NEED TO [...] ask them during your visits. ?? Copyright trend.ly 2019 Information is for End User's use only and may not be sold, redistributed or otherwise used for commercial purposes. All illustrations and images included in CareNotes?? are the copyrighted property of [employer]. or [employer] The above information is an computer aided design drafter only. It is not intended as medical advice for individual conditions or treatments. Talk to your doctor, nurse or pharmacist before following any medical regimen to see if it is safe and effective for you. Signed: Olga Knott APRN-ACTIVITY ASSISTANT 11/26/2020 8:23 AM documented in this encounter [...] [facility] Urology at [phone] during regular business hours. On weekends or in the evening, please contact [facility] Hospitalat [phone] and ask for whoever is button clamper for Urology. Ureteral Stent Placement WHAT YOU [...] refuse treatment. The above information is an computer aided design drafter only. It is not intended as medical advice for individual conditions or treatments. Talk to your doctor, nurse or pharmacist before following any medical regimen to see if it is safe and effective for you. ?? Copyright trend.ly 2019 Information is for End User's use only and may not be sold, redistributed or otherwise used for commercial purposes. All illustrations and images included in CareNotes?? are the copyrighted property of [employer]. or [employer] Ureteral Stent Placement WHAT YOU NEED TO [...] ask them during your visits. ?? Copyright trend.ly 2019 Information is for End User's use only and may not be sold, redistributed or otherwise used for commercial purposes. All illustrations and images included in CareNotes?? are the copyrighted property of [employer]. or [employer] The above information is an computer aided design drafter only. It is not intended as medical [...] of care at discharge: Home Alysha Jolley [id number] 30 year old 1990 ?? Admit date: 11/24/2020 Discharge Disposition : Home Basic Needs Assessment (BNA) Score: 5 Transportation at Discharge: Pt arranged Pt discharged prior to BNA. No needs identified Jacklyn Sam RN Case Management [phone] * Olga Knott APRN-CNP - 11/26/2020 9:26 [...] (1.626 m) Wt 193 lb (87.5 kg) KnK139% BMI 33.13 kg/m2 Physical Exam: General: NAD, [...] input(s): PROTIME, INR, PTT in the last 84278 hours. No results for input(s): PHART, PO2ART, PIP6RQX, BEART in the last 86677 hours. Lab results smartLinks are not currently [...] input(s): PROTIME, INR, PTT in the last 89348 hours. No results for input(s): PHART, PO2ART, LKY2BSC, BEART in the last 98763 hours. Lab results smartLinks are not currently [...] with RIGHT pelvic pain. Patient presented to [facility] with this pain and underwent CT scan [...] draped in sterile fashion. We took a 22-Trinidadian cystoscope was inserted into the urethra. Bladder [...] obtained. We then attempted to place a 6-Trinidadian ureteral stents, met resistance. Thus, we then used a 4.8-Trinidadian x26 cm stent and placed this over the wire with some difficulty into the right renal pelvis. We saw good a curl in the renal pelvis and a good curl in the bladder. Bladder was drained. She was taken to recovery in stable condition. I was present for the entire procedure. Miller Zamora MD [facility].[id number] Doc ID: [id number] Job ID: [id number] * Brief Op Note - Shyam Rodriguez [...] RN - 11/24/2020 3:00 PM CDT Bed: [address] Expected date: Expected time: Means of [...] of lithotripsy BIBEMS as a transfer from [facility] with complaints of worsening suprapubic pain for [...] file Gets together: Not on file Attends caodaism service: Not on file Active member of [...] acid amplification assay performance was validated by [facility]. This test has been authorized by the [...] mg (0.5 mg Intravenous $ Given 11/24/20 0160) Clinical Impression: 1. Nephrolithiasis 2. Hydronephrosis, unspecified [...] TOTAL) Routine 11/26/2020 4:50 AM CDT Nephrolithiasis [place] CYSTOURETHROSCOPY,UR ETER CATHETER 11/25/2020 3:31 PM CDT [...] CYSTO SURGERY (11/26/2020 3:55 PM CDT) Narrative [facility] RADIOLOGY - 11/30/2020 9:41 PM CDT Fluoroscopy was used for this exam in the OR. Please see the Operative report. Miller Zamora MD FLUOROSCOPY ORLYA KATHIA [facility] * (ABNORMAL) CBC W AUTO DIFFERENTIAL [...] - HEMATOLOG Y ORDERABLES Performing Organization Address City/State/[facility] Co de Phone Number [facility] [address] [place] [phone], [facility] [phone] * (ABNORMAL) BASIC METABOLIC PANEL (CALCIUM TOTAL) [...] LAB - CHEMISTRY ORDERABLES Performing Organization Address City/State/[facility] Co de Phone Number [address] [phone], [facility] [phone] * (ABNORMAL) CBC W AUTO DIFFERENTIAL (11/25/2020 [...] - HEMATOLOG Y ORDERABLES Performing Organization Address City/[facility] Co de Phone Number [facility] [address] [place] [phone], [facility] [phone] * (ABNORMAL) BASIC METABOLIC PANEL (CALCIUM TOTAL) [...] LAB - CHEMISTRY ORDERABLES Performing Organization Address City/State/[facility] Co de Phone Number [facility] [address] [place] [address], [facility] [phone] * (ABNORMAL) COMPREHENSIVE METABOLIC PANEL (11/24/2020 6:25 [...] - CHEM ISTRY ORDERABLES Performing Organization Address City/State/[facility] Co de Phone Number [address] [phone], [facility] [phone] * (ABNORMAL) CBC W AUTO DIFFERENTIAL (11/24/2020 [...] 10? 3 /uL 11/24/2020 6:38 AM CDT [facility] Monocytes Absolute 0.90(H) 0.14 - 0.66 10? 3 /uL 11/24/2020 6:38 AM CDT [facility] Eosinophils Absolute 0.31 0.00 - 0.45 10? 3 /uL 11/24/2020 6:38 AM CDT [facility] Basophils Absolute 0.07(H) 0.00 - 0.06 10? 3 /uL 11/24/2020 6:38 AM T [facility] Immature Granulocytes % 0.5 0.0 - 1.0 % 11/24/2020 6:38 AM T [facility] Blood BLOOD SPECIMEN / Unknown Venipuncture / Unknown 11/24/2020 6:25 AM CDT 11/24/2020 6:32 AM CDT Bal Sanchez PA-C LAB - LAURA TOLOGY ORDERABLES Performing Organization Address City/State/[facility] Co de Phone Number [address] [phone] [phone] * SARS-COV-2 (COVID-19)+INFLU A+B PCR RAPID (11/24/2020 6:22 AM CDT) [facility] COVID-19 PCR Not detected Not detected 11/25/19 7:00 AM [facility] Influenza A Rapid JOSHUA Not Detected Not Detected 11/24/2020 7:00 AM T [facility] Influenza B JOSHUA Rapid Not Detected Not Detected 11/24/2020 7:00 AM T [facility] Microbiology SPECIMEN FROM NASOPHARYNGEAL STRUCTURE / Unknown Collection / Unknown 11/24/2020 6:22 AM CDT 11/24/2020 6:32 AM CDT Narrative [facility] - 11/24/2020 7:00 AM CDT Influenza [...] acid amplification assay performance was validated by [facility]. This test has been authorized by the [...] Sanchez PA-C LAB - MICR OBIOLOGY ORDERABLES [facility] [address] [place] [address], [place] [phone] * CULTURE URINE (11/24/2020 6:09 AM CDT) Pathologist [facility] Culture Urine >100,000 CFU/mL urogenital marco CHRYSTAL 11/25/2020 1:[address] [facility] MICROBIOLOGY Urine URINE SPECIMEN OBTAINED BY CLEAN CATCH PROCEDURE / Unknown Collection / Unknown 11/24/2020 6:09 AM CDT 11/24/2020 6:13 AM CDT Yair Medellin MD LAB - MICROBIOL OGY ORDERABLES [facility] MICROBIOLOGY [address] [place] [address], [facility] [phone] * (ABNORMAL) URINALYSIS W/MICROSCOPIC NO CULTURE (11/24/2020 6:09 AM CDT) Color UA Yellow Straw, Yellow, Colorless 11/24/2020 6:27 AM [facility] Clarity UA Cloudy(A) Clear, Slt Cloudy 11/24/2020 6:27 AM [facility] Specific [place] UA 1.024 1.005 - 1.030 11/24/2020 6:27 [...] AM CDT 11/24/2020 6:13 AM CDT Narrative [facility] - 11/24/2020 6:27 AM CDT Yair Medellin MD LAB - URINALYSI S ORDERABLES [address] [address], [facility] [phone] * HCG URINE QUALITATIVE (11/24/2020 6:09 AM CDT) Test Urine Negative Negative 11/24/2020 6:33 AM CDT [facility] Urine URINE / Unknown Collection / Unknown 11/24/2020 6:09 AM CDT 11/24/2020 6:13 AM CDT Bal Sanchez PA-C LAB - URIN ALYSIS ORDERABLES Performing Organization Address City/[facility]/ZIP Co de Phone Number [address] [address], [facility] [phone] documented in this encounter Visit Diagnoses Diagnosis [...] 1241 documented in this encounter Care Teams Turn Operator Relationship Specialty Start Date End Date Rema Austin MD [address] [place] [phone] PCP - General Family Medicine 11/24/20 02/20/21 documented as of this encounter
--- OUTSIDE RECORDS SUMMARY | 2024-09-25 20:08 | XMS_ITS | Encounter Summary ---
Author Organization [facility] Address [address] [facility] [place] [address] Care Team Providers Care Merit System Director Name Role Phone eRma Austin MD Primary Care Provider [phone] Encounter Details Date Type Department Care Team (Late st Contact Info) Description 11/27/2020 Orders Only [facility] [address] [place] [address] Lisa Madsen RN Nephrolithiasis ; Pre-op testing [...] PM CDT Pre-op urine culture arranged for 12/31/2020-[facility] COVID screen on 01/11/2021 9AM documented in this encounter Plan of Treatment Not on file documented as of this encounter Results * SARS-COV-2 (COVID-19) PRE-SURICAL/PROCEDURE (01/12/2021 2:06 PM CDT) COVID-19 PCR Not detected Not detected 01/12/2021 9:23 PM CDT [facility] MICROBIOLOGY Microbiology SPECIMEN FROM NASOPHARYNGEAL STRUCTURE / Unknown Collection / Unknown 01/12/2021 2:06 PM CDT 01/12/2021 2:26 PM CDT Narrative [facility] MICROBIOLOGY - 01/12/2021 9:23 PM CDT This nucleic acid amplification assay performance was validated by [facility] Microbiology Laboratory. This test has been authorized [...] Miller Zamora MD LAB - MICROBIOLOGY ORDERABLES [facility] MICROBIOLOGY [address] [place] [address] [phone] documented in this encounter Visit Diagnoses Diagnosis Nephrolithiasis- Primary Calculus of kidney Pre-op testing Preoperative examination, unspecified documented in this encounter Care Teams Merit System Director Relationship Specialty Start Date End Date Rema Austin MD [address] [place] [address] [place] [phone] PCP - General Family Medicine 11/24/20 02/20/21 documented as of this encounter
--- OUTSIDE RECORDS SUMMARY | 2024-09-25 20:08 | XMS_ITS | Encounter Summary ---
Author Organization [facility] Address [address] [place] [address] Care Team Providers Care Maintenance And Custodian Supervisor Name Role Phone Unavailable Primary Care [...] 03/15/2019 11:38 AM CDT Emergency ER at [facility] [address] [place] [address] Chronic pain of left knee Discharge [...] Discharge Instructions * Discharge Instructions* Alina Sevilla, NEELAM-UPPER CUTTER OUT - 03/15/2019 10:54 AM CDT Images from [...] refuse treatment. The above information is an inpatient nursing aide only. It is not intended as medical advice for individual conditions or treatments. Talk to your doctor, nurse or pharmacist before following any medical regimen to see if it is safe and effective for you. ?? Copyright [employer] 2019 Information is for End User's use only and may not be sold, redistributed or otherwise used for commercial purposes. All illustrations and images included in CareNotes?? are the copyrighted property of [employer] or [employer] Plan documented in this encounter Medications at Time [...] with the patient: 03/15/2019 10:07 DaTreion Tita [id number] [facility] [...] By Time SpO2: 100 % Alina Lemon [facility] 03/15 104 BP: 112/67 Alina Lemon [facility] 03/15 1045 Resp: 18 Normal Alina Sevilla [facility] 03/15 1045 Pulse: 85 Alina Lemon [facility] 03/15 1045 Temp: 98.2 ??F (36.8 ??C) Alina Lemon [facility] 03/15 1045 D-Dimer: 0.46 Alina Lemon [facility] 03/15 1053 Medical Decision Making I [...] have advised the patient to follow-up with: [facility] [address] [facility] [phone] Call in 1 day Disposition: Discharged Follow-up Information Follow-up With Details Why Contact Info [facility] INEZ Call in 1 day [address] [facility] [phone] User Date/Time Alina Sevilla APRN-CNP e Mar [...] 0.5 mg/L FEU 03/15/2019 10:51 AM CDT [facility] Blood BLOOD SPECIMEN / Unknown Venipuncture / Unknown 03/15/2019 10:34 AM CDT 03/15/2019 10:40 AM CDT Narrative [facility] - 03/15/2019 10:51 AM CDT [...] clinical presentation, and other findings. Alina Sevilla METEOROLOGY TEACHER-UPPER CUTTER OUT LAB - COAGUL ATION ORDERABLES [facility] [address] [place] [address] documented in this encounter Visit Diagnoses Diagnosis Chronic pain of left knee Pain in joint, lower leg documented in this encounter
--- OUTSIDE RECORDS SUMMARY | 2024-09-25 20:08 | XMS_ITS | Encounter Summary ---
Author Organization [facility] Address [address] [facility] [place] [address] Care Team Providers Care Housekeeper And Laundry Assistant Name Role Phone Rema Austin MD Primary Care Provider [phone] Reason for Visit * Reason Comments Referral Pt BIBEMS from OSH f or urology referral. OSH confirms active UTI and kidney stones. Patient reports 8/10 flank pain and abdominal pain. VSS. * Auth/Cert Specialty Diagnoses / Procedures Referred By Norm t Referred To Contact Referral ID Status Reason Start Date Expiration Date Visits Re quested Visits Authorized [id number] 1 1 Encounter Details Date Type Department Care Team (Late st Contact Info) Description 11/24/2020 4:58 AM CDT - 11/26/2020 11:40 AM CDT Emergency [facility] Early Admission Unit [address] [place] [address] Yair Medellin MD [address] [facility] DIV [place] [address] Miller Snowden MD [address] [place] [address] Emergency Medicine Discharge Disposition: Home [...] this encounter Discharge Summaries * Isabelle Knottlin, DISTRICT MEDICAL EXAMINER-SLEEVE SETTER SAFETY STITCH - 11/26/2020 8:23 AM CDT Physician Discharge Summary [facility] Division of Urologic Surgery Inpatient Discharge Summary Miller Snowden MD Patient ID: Jumana Jolley [id number] 30 year old 1990 Admit date: 11/24/2020 Discharge date and time: No discharge date for patient encounter. Admitting Physician: Miller Snowden MD Discharge Physician: Dr Snowden Present on Admission: None Discharge Diagnoses: Kidney [...] possible stent exchange was placed. The outpatient central scheduler should reachout to the patient with a [...] for input(s): CBC, PSA in the last 28040 hours. Invalid input(s): UA Updated imaging: OSH [...] kidney stone. Contact information: Robert CISNEROS [address] [facility] [address] Discharge Instructions We will call you this [...] the recovery process, please contact [facility] Urology at [phone] during regular business hours. On weekends or in the evening, please contact [facility] Hospitalat [phone] and ask for whoever is front office director for Urology. Ureteral Stent Placement WHAT YOU [...] refuse treatment. The above information is an employment educational coord only. It is not intended as medical advice for individual conditions or treatments. Talk to your doctor, nurse or pharmacist before following any medical regimen to see if it is safe and effective for you. ?? Copyright [employer] 2019 Information is for End User's use only and may not be sold, redistributed or otherwise used for commercial purposes. All illustrations and images included in CareNotes?? are the copyrighted property of [employer], [employer]. or [employer] Ureteral Stent Placement WHAT YOU NEED TO [...] ask them during your visits. ?? Copyright [employer] 2019 Information is for End User's use only and may not be sold, redistributed or otherwise used for commercial purposes. All illustrations and images included in CareNotes?? are the copyrighted property of [employer]. or [employer] The above information is an employment educational coord only. It is not intended as medical [...] the recovery process, please contact [facility] Urology at [phone] during regular business hours. On weekends or in the evening, please contact [facility] Hospitalat [phone] and ask for whoever is front office director for Urology. Ureteral Stent Placement WHAT YOU [...] refuse treatment. The above information is an employment educational coord only. It is not intended as medical advice for individual conditions or treatments. Talk to your doctor, nurse or pharmacist before following any medical regimen to see if it is safe and effective for you. ?? Copyright [employer] 2019 Information is for End User's use only and may not be sold, redistributed or otherwise used for commercial purposes. All illustrations and images included in CareNotes?? are the copyrighted property of [employer]. or [employer] Ureteral Stent Placement WHAT YOU NEED TO [...] ask them during your visits. ?? Copyright [employer] 2019 Information is for End User's use only and may not be sold, redistributed or otherwise used for commercial purposes. All illustrations and images included in CareNotes?? are the copyrighted property of [employer]. or [employer] The above information is an employment educational coord only. It is not intended as medical [...] of care at discharge: Home DaTreion Tita [id number] 30 year old 1990 ?? Admit date: 11/24/2020 Discharge Disposition : Home Basic Needs Assessment (BNA) Score: 5 Transportation at Discharge: Pt arranged Pt discharged prior to BNA. No needs identified Jacklyn Sam RN Case Management [phone] * Olga Knott APRN-CNP - 11/26/2020 9:26 AM CDT patient complaining of right flank pain. oxi prn given. tylenol scheduled. Ok to given ditropan early [facility] * Olga Knott APRN-CNP - 11/26/2020 8:13 AM CDT Urologic Surgery Progress Note Admit Date: 11/24/2020 NAME: Jumnaa Jolley AGE: [age] year old SEX: female [...] (1.626 m) Wt 193 lb (87.5 kg) GlU232% BMI 33.13 kg/m2 Physical Exam: General: NAD, [...] input(s): PROTIME, INR, PTT in the last 17064 hours. No results for input(s): PHART, PO2ART, ZXA6WWG, BEART in the last 60979 hours. Lab results smartLinks are not currently [...] exchange in roughly 6 weeks. Olga Knott APRN-SLEEVE SETTER SAFETY STITCH 11/26/2020 8:14 AM * Caroline Regalado RN [...] input(s): PROTIME, INR, PTT in the last 55421 hours. No results for input(s): PHART, PO2ART, YNI0ODW, BEART in the last 90165 hours. Lab results smartLinks are not currently [...] with RIGHT pelvic pain. Patient presented to [place] with this pain and underwent CT scan [...] draped in sterile fashion. We took a 22-Greenlandic cystoscope was inserted into the urethra. Bladder [...] obtained. We then attempted to place a 6-Greenlandic ureteral stents, met resistance. Thus, we then used a 4.8-Greenlandic x26 cm stent and placed this over the wire with some difficulty into the right renal pelvis. We saw good a curl in the renal pelvis and a good curl in the bladder. Bladder was drained. She was taken to recovery in stable condition. I was present for the entire procedure. Miller Snowden MD [id number] Doc ID: [id number] Job ID: [id number] * Brief Op Note - Shyam Rodriguez [...] RN - 11/24/2020 3:00 PM CDT Bed: [address] Expected date: Expected time: Means of [...] of lithotripsy BIBEMS as a transfer from [facility] with complaints of worsening suprapubic [...] file Gets together: Not on file Attends islam service: Not on file Active member of [...] acid amplification assay performance was validated by [facility]. This test has been authorized by [...] mg (0.5 mg Intravenous $ Given 11/24/20 1134) Clinical Impression: 1. Nephrolithiasis 2. Hydronephrosis, unspecified [...] TOTAL) Routine 11/26/2020 4:50 AM CDT Nephrolithiasis DC CYSTOURETHROSCOPY,UR ETER CATHETER 11/25/2020 3:31 PM CDT [...] CULTURE URINE STAT 11/24/2020 6:09 AM CDT DC CYSTOURETHROSCOPY,UR ETER CATHETER Level 3 Disorder Special Needs Level 3 @ 0950. SRC documented in this encounter Results * FL CYSTO SURGERY (11/26/2020 3:55 PM CDT) Narrative [facility] RADIOLOGY - 11/30/2020 9:41 PM CDT Fluoroscopy was used for this exam in the OR. Please see the Operative report. Miller Snowden MD FLUOROSCOPY ORDERA KATHIA [facility] RADIOLOGY * (ABNORMAL) CBC W AUTO DIFFERENTIAL (11/26/2020 4:50 AM CDT) WBC 7.6 3.5 - 10.5 10? 3 /uL 11/26/2020 5:42 AM [facility] Comment:Confirmed by repeat analysis. RBC 4.05 3.90 - 5.00 10? 6 /uL 11/26/2020 5:42 AM [facility] Hemoglobin 10.6(L) 12.0 - 15.5 g/dL 11/26/2020 5:42 AM [facility] Hematocrit 32.6(L) 35.0 - 45.0 % 11/26/2020 5:42 AM [facility] MCV 80.5(L) 81.0 - 97.0 fL 11/26/2020 5:42 AM [facility] MCH 26.2(L) 28.0 - 34.0 pg 11/26/2020 5:42 AM [facility] MCHC 32.5 32.0 - 36.0 g/dL 11/26/2020 5:42 AM [facility] Platelet Count 315 150 - 400 10? 3 /uL 11/26/2020 5:42 AM [facility] RDW-SD 49.8 36.0 - 50.0 fL 11/26/2020 5:42 AM [facility] RDW-CV 16.9(H) 11.2 - 14.8 % 11/26/2020 5:42 AM [facility] MPV 9.9 9.3 - 12.8 fL 11/26/2020 5:42 AM [facility] nRBC Absolute 0.00 0 10? 3 /uL 11/26/2020 5:42 AM [facility] nRBC Auto 0.0 0 /100 WBC 11/26/2020 5:42 AM [facility] Neutrophils % 74.5(H) 35.0 - 70.0 % 11/26/2020 5:42 AM [facility] Lymphocytes % 13.7(L) 19.7 - 55.1 % 11/26/2020 5:42 AM [facility] Monocytes % 10.9 3.0 - 15.0 % 11/26/2020 5:42 AM [facility] Eosinophils % 0.1 0.0 - 6.0 % 11/26/2020 5:42 AM [facility] Basophil % 0.4 0.0 - 1.5 % 11/26/2020 5:42 AM T [facility] Neutrophils Absolute 5.7 1.6 - 7.0 10? 3 /uL 11/26/2020 5:42 AM [facility] Lymphocyte Absolute 1.0 0.8 - 2.9 10? 3 /uL 11/26/2020 5:42 AM [facility] Monocytes Absolute 0.83(H) 0.14 - 0.66 10? 3 /uL 11/26/2020 5:42 AM [facility] Eosinophils Absolute 0.01 0.00 - 0.45 10? 3 /uL 11/26/2020 5:42 AM [facility] Basophils Absolute 0.03 0.00 - 0.06 10? 3 /uL 11/26/2020 5:42 AM [facility] Immature Granulocytes % 0.4 0.0 - 1.0 % 11/26/2020 5:42 AM [facility] Blood BLOOD SPECIMEN / Unknown Lab Venipuncture / Unknown 11/26/2020 4:50 AM CDT 11/26/2020 5:27 AM CDT Yair Medellin MD LAB - HEMATOLOG Y ORDERABLES Performing Organization Address [facility]/State/[facility] Co de Phone Number [facility] [address] [place] [address], [facility] [phone] * (ABNORMAL) BASIC METABOLIC PANEL (CALCIUM TOTAL) (11/26/2020 4:50 AM CDT) BUN 14 7 - 26 mg/dL 11/26/2020 5:50 AM [facility] Creatinine 0.7 0.6 - 1.2 mg/dL 11/26/2020 5:50 AM [facility] Sodium 140 136 - 145 mmol/L 11/26/2020 5:50 AM [facility] Potassium 3.9 3.5 - 4.5 mmol/L 11/26/2020 5:50 AM [facility] Chloride 105 98 - 107 mmol/L 11/26/2020 5:50 AM [facility] CO2 26 22 - 29 mmol/L 11/26/2020 5:50 AM [facility] Glucose 116(H) 70 - 115 mg/dL 11/26/2020 5:50 AM [facility] Calcium 9.3 8.4 - 10.2 mg/dL 11/26/2020 5:50 AM [facility] Anion Gap 13 8 - 18 11/26/2020 5:50 AM [facility] BUN/Creatinine Ratio 20 7 - 23 11/26/2020 5:50 AM [facility] Osmolality Calculated 291 270 - 300 mOsm/kg 11/26/2020 5:50 AM [facility] eGFR >60 >60 mL/min/1.7 3 m2 11/26/2020 5:50 AM [facility] Blood BLOOD SPECIMEN / Unknown Lab Venipuncture / Unknown 11/26/2020 4:50 AM T 11/26/2020 5:27 AM T Yair Medellin MD LAB - CHEMISTRY ORDERABLES [facility] [address] [place] [id number] [phone] * (ABNORMAL) CBC W AUTO DIFFERENTIAL (11/25/2020 4:04 AM CDT) WBC 5.0 3.5 - 10.5 10? 3 /uL 11/25/2020 4:43 AM [facility] RBC 3.97 3.90 - 5.00 10? 6 /uL 11/25/2020 4:43 AM [facility] Hemoglobin 10.3(L) 12.0 - 15.5 g/dL 11/25/2020 4:43 AM [facility] Hematocrit 32.1(L) 35.0 - 45.0 % 11/25/2020 4:43 AM [facility] MCV 80.9(L) 81.0 - 97.0 fL 11/25/2020 4:43 AM [facility] MCH 25.9(L) 28.0 - 34.0 pg 11/25/2020 4:43 AM [facility] MCHC 32.1 32.0 - 36.0 g/dL 11/25/2020 4:43 AM [facility] Platelet Count 291 150 - 400 10? 3 /uL 11/25/2020 4:43 AM [facility] RDW-SD 50.4(H) 36.0 - 50.0 fL 11/25/2020 4:43 AM [facility] RDW-CV 17.0(H) 11.2 - 14.8 % 11/25/2020 4:43 AM [facility] MPV 9.3 9.3 - 12.8 fL 11/25/2020 4:43 AM [facility] nRBC Absolute 0.00 0 10? 3 /uL 11/25/2020 4:43 AM [facility] nRBC Auto 0.0 0 /100 WBC 11/25/2020 4:43 AM [facility] Neutrophils % 46.1 35.0 - 70.0 % 11/25/2020 4:43 AM [facility] Lymphocytes % 34.1 19.7 - 55.1 % 11/25/2020 4:43 AM [facility] Monocytes % 14.8 3.0 - 15.0 % 11/25/2020 4:43 AM [facility] Eosinophils % 3.8 0.0 - 6.0 % 11/25/2020 4:43 AM [facility] Basophil % 0.6 0.0 - 1.5 % 11/25/2020 4:43 AM [facility] Neutrophils Absolute 2.3 1.6 - 7.0 10? 3 /uL 11/25/2020 4:43 AM [facility] Lymphocyte Absolute 1.7 0.8 - 2.9 10? 3 /uL 11/25/2020 4:43 AM [facility] Monocytes Absolute 0.74(H) 0.14 - 0.66 10? 3 /uL 11/25/2020 4:43 AM [facility] Eosinophils Absolute 0.19 0.00 - 0.45 10? 3 /uL 11/25/2020 4:43 AM [facility] Basophils Absolute 0.03 0.00 - 0.06 10? 3 /uL 11/25/2020 4:43 AM [facility] Immature Granulocytes % 0.6 0.0 - 1.0 % 11/25/2020 4:43 AM [facility] Blood BLOOD SPECIMEN / Unknown Lab Venipuncture / Unknown 11/25/2020 4:04 AM CDT 11/25/2020 4:25 AM CDT Yair Medellin MD LAB - HEMATOLOG Y ORDERABLES [facility] [address] [place] [phone], [facility] [phone] * (ABNORMAL) BASIC METABOLIC PANEL (CALCIUM TOTAL) (11/25/2020 4:04 AM CDT) BUN 13 7 - 26 mg/dL 11/25/2020 4:52 AM [facility] Creatinine 0.7 0.6 - 1.2 mg/dL 11/25/2020 4:52 AM [facility] Sodium 140 136 - 145 mmol/L 11/25/2020 4:52 AM [facility] Potassium 3.8 3.5 - 4.5 mmol/L 11/25/2020 4:52 AM [facility] Chloride 108(H) 98 - 107 mmol/L 11/25/2020 4:52 AM [facility] CO2 27 22 - 29 mmol/L 11/25/2020 4:52 AM [facility] Glucose 102 70 - 115 mg/dL 11/25/2020 4:52 AM [facility] Calcium 8.2(L) 8.4 - 10.2 mg/dL 11/25/2020 4:52 AM [facility] Anion Gap 9 8 - 18 11/25/2020 4:52 AM [facility] BUN/Creatinine Ratio 19 7 - 23 11/25/2020 4:52 AM [facility] Osmolality Calculated 290 270 - 300 mOsm/kg 11/25/2020 4:52 AM [facility] eGFR >60 >60 mL/min/1.7 3 m2 11/25/2020 4:52 AM [facility] Blood BLOOD SPECIMEN / Unknown Lab Venipuncture / Unknown 11/25/2020 4:04 AM CDT 11/25/2020 4:25 AM CDT Yair Medellin MD LAB - CHEMISTRY ORDERABLES Performing Organization Address [facility] Co de Phone Number [facility] [address] [place] [address], [facility] [phone] * (ABNORMAL) COMPREHENSIVE METABOLIC PANEL (11/24/2020 6:25 AM CDT) BUN 13 7 - 26 mg/dL 11/24/2020 6:57 AM [facility] Creatinine 0.6 0.6 - 1.2 mg/dL 11/24/2020 6:57 AM [facility] Sodium 139 136 - 145 mmol/L 11/24/2020 6:57 AM [facility] Potassium 3.0(L) 3.5 - 4.5 mmol/L 11/24/2020 6:57 AM [facility] Chloride 106 98 - 107 mmol/L 11/24/2020 6:57 AM [facility] CO2 26 22 - 29 mmol/L 11/24/2020 6:57 AM [facility] Glucose 81 70 - 115 mg/dL 11/24/2020 6:57 AM [facility] Calcium 8.4 8.4 - 10.2 mg/dL 11/24/2020 6:57 AM [facility] Protein Total 6.2 6.0 - 8.3 g/dL 11/24/2020 6:57 AM [facility] Albumin 3.4 3.4 - 5.0 g/dL 11/24/2020 6:57 AM [facility] Bilirubin Total 0.4 0.2 - 1.2 mg/dL 11/24/2020 6:57 AM [facility] Alkaline Phosphatase 44 40 - 150 Units/L 11/24/2020 6:57 AM [facility] ALT 5 0 - 55 Units/L 11/24/2020 6:57 AM [facility] AST 10 5 - 34 Units/L 11/24/2020 6:57 AM [facility] Anion Gap 10 8 - 18 11/24/2020 6:57 AM [facility] BUN/Creatinine Ratio 22 7 - 23 11/24/2020 6:57 AM [facility] Osmolality Calculated 287 270 - 300 mOsm/kg 11/24/2020 6:57 AM [facility] Albumin/Globulin Ratio 1.2 1.1 - 2.3 11/24/2020 6:57 AM [facility] eGFR >60 >60 mL/min/1.7 3 m2 11/24/2020 6:57 AM [facility] Blood BLOOD SPECIMEN / Unknown Venipuncture / Unknown 11/24/2020 6:25 AM CDT 11/24/2020 6:32 AM CDT Bal Sanchez PA-C LAB - CHEM ISTRY ORDERABLES [facility] [address] [place] [phone] [phone] * (ABNORMAL) CBC W AUTO DIFFERENTIAL (11/24/2020 6:25 AM CDT) WBC 7.5 3.5 - 10.5 10? 3 /uL 11/24/2020 6:38 AM [facility] RBC 4.05 3.90 - 5.00 10? 6 /uL 11/24/2020 6:38 AM [facility] Hemoglobin 10.7(L) 12.0 - 15.5 g/dL 11/24/2020 6:38 AM [facility] Hematocrit 32.9(L) 35.0 - 45.0 % 11/24/2020 6:38 AM [facility] MCV 81.2 81.0 - 97.0 fL 11/24/2020 6:38 AM [facility] MCH 26.4(L) 28.0 - 34.0 pg 11/24/2020 6:38 AM [facility] MCHC 32.5 32.0 - 36.0 g/dL 11/24/2020 6:38 AM [facility] Platelet Count 305 150 - 400 10? 3 /uL 11/24/2020 6:38 AM [facility] RDW-SD 50.4(H) 36.0 - 50.0 fL 11/24/2020 6:38 AM [facility] RDW-CV 17.1(H) 11.2 - 14.8 % 11/24/2020 6:38 AM [facility] MPV 9.1(L) 9.3 - 12.8 fL 11/24/2020 6:38 AM [facility] nRBC Absolute 0.00 0 10? 3 /uL 11/24/2020 6:38 AM [facility] nRBC Auto 0.0 0 /100 WBC 11/24/2020 6:38 AM [facility] Neutrophils % 46.9 35.0 - 70.0 % 11/24/2020 6:38 AM [facility] Lymphocytes % 35.4 19.7 - 55.1 % 11/24/2020 6:38 AM [facility] Monocytes % 12.1 3.0 - 15.0 % 11/24/2020 6:38 AM [facility] Eosinophils % 4.2 0.0 - 6.0 % 11/24/2020 6:38 AM [facility] Basophil % 0.9 0.0 - 1.5 % 11/24/2020 6:38 AM [facility] Neutrophils Absolute 3.5 1.6 - 7.0 10? 3 /uL 11/24/2020 6:38 AM [facility] Lymphocyte Absolute 2.6 0.8 - 2.9 10? 3 /uL 11/24/2020 6:38 AM [facility] Monocytes Absolute 0.90(H) 0.14 - 0.66 10? 3 /uL 11/24/2020 6:38 AM [facility] Eosinophils Absolute 0.31 0.00 - 0.45 10? 3 /uL 11/24/2020 6:38 AM CDT [facility] Basophils Absolute 0.07(H) 0.00 - 0.06 10? 3 /uL 11/24/2020 6:38 AM T [facility] Immature Granulocytes % 0.5 0.0 - 1.0 % 11/24/2020 6:38 AM T [facility] Blood BLOOD SPECIMEN / Unknown Venipuncture / Unknown 11/24/2020 6:25 AM CDT 11/24/2020 6:32 AM CDT Bal Sanchez PA-C LAB - LAURA TOLOGY ORDERABLES [facility] [address] [place] [address], [facility] [phone] * SARS-COV-2 (COVID-19)+INFLU A+B PCR RAPID (11/24/2020 6:22 AM CDT) COVID-19 PCR Not detected Not detected 11/25/19 7:00 AM T [facility] Influenza A Rapid JOSHUA Not Detected Not Detected 11/24/2020 7:00 AM [facility] Influenza B JOSHUA Rapid Not Detected Not Detected 11/24/2020 7:00 AM T [facility] Microbiology SPECIMEN FROM NASOPHARYNGEAL STRUCTURE / Unknown Collection / Unknown 11/24/2020 6:22 AM CDT 11/24/2020 6:32 AM CDT Narrative [facility] - 11/24/2020 7:00 AM CDT Influenza [...] acid amplification assay performance was validated by [facility]. This test has been authorized by [...] - MICR OBIOLOGY ORDERABLES Performing Organization Address City/[facility]/ZIP Co de Phone Number [facility] [address] [place] [address], [facility] [phone] * CULTURE URINE (11/24/2020 6:09 AM CDT) Pathologist [facility] Culture Urine >100,000 CFU/mL urogenital marco CHRYSTAL 11/25/2020 1:43 PM CDT [facility] MICROBIOLOGY Urine URINE SPECIMEN OBTAINED BY CLEAN CATCH PROCEDURE / Unknown Collection / Unknown 11/24/2020 6:09 AM CDT 11/24/2020 6:13 AM CDT Yair Medellin MD LAB - MICROBIOL OGY ORDERABLES [facility] MICROBIOLOGY [address] [place] [address], [facility] [phone] * (ABNORMAL) URINALYSIS W/MICROSCOPIC NO CULTURE (11/24/2020 6:09 AM CDT) Color UA Yellow Straw, Yellow, Colorless 11/24/2020 6:27 AM CDT [facility] Clarity UA Cloudy(A) Clear, Slt Cloudy 11/24/2020 6:27 AM CDT [facility] Specific [place] UA 1.024 1.005 - 1.030 11/24/2020 6:27 AM [facility] pH UA 6.0 5.0 - 8.0 pH 11/24/2020 6:27 AM [facility] Protein UA 1+(A) Negative mg/dL 11/24/2020 6:27 AM [facility] Glucose UA Negative Negative mg/dL 11/24/2020 6:27 AM [facility] Ketone UA 1+(A) Negative mg/dL 11/24/2020 6:27 AM [facility] Bilirubin UA Negative Negative mg/dL 11/24/2020 6:27 AM [facility] Blood UA Negative Negative 11/24/2020 6:27 AM [facility] Nitrite UA Negative Negative 11/24/2020 6:27 AM [facility] Leukocyte Esterase 3+(A) Negative 11/24/2020 6:27 AM [facility] Urobilinogen UA 2.0(A) Negative mg/dL 11/24/2020 6:27 AM [facility] RBC UA 11-20(A) None Seen, 0-2, 3-5 /HPF 11/24/2020 6:27 AM [facility] WBC UA 21-50(A) None Seen, 0-5 /HPF 11/24/2020 6:27 AM [facility] Bacteria UA 1+(A) None, Trace /HPF 11/24/2020 6:27 AM [facility] Squamous Epithelial Cells UA >20(A) None Seen, 0-2 /HPF 11/24/2020 6:27 AM [facility] Mucus UA 4+(A) None, 1+ /LPF 11/24/2020 6:27 AM [facility] Urine URINE SPECIMEN OBTAINED BY CLEAN CATCH PROCEDURE / Unknown Collection / Unknown 11/24/2020 6:09 AM CDT 11/24/2020 6:13 AM [facility] - 11/24/2020 6:27 AM [facility] Yair Medellin MD LAB - URINALYSI S ORDERABLES [facility] [address] [place] [address], [facility] [phone] * HCG URINE QUALITATIVE (11/24/2020 6:09 AM CDT) Test Urine Negative Negative 11/24/2020 6:33 AM CDT [facility] Urine URINE / Unknown Collection / Unknown 11/24/2020 6:09 AM CDT 11/24/2020 6:13 AM CDT Bal Sanchez PA-C LAB - URIN ALYSIS ORDERABLES [facility] [address] [place] [address], [facility] [phone] documented in this encounter Visit Diagnoses Diagnosis [...] 1241 documented in this encounter Care Teams Housekeeper And Laundry Assistant Relationship Specialty Start Date End Date Rema Austin MD [address] [place] [address] [place] [address] PCP - General Family Medicine 11/24/20 02/20/21 documented as of this encounter
--- OUTSIDE RECORDS SUMMARY | 2024-09-25 20:08 | XMS_ITS | Encounter Summary ---
Author Organization [facility] Address [address] [facility] [place] [address] Care Team Providers Care Tire Buster Name Role Phone Clinic[facility], [facility] Primary Care Provider Unavailable Reason for Visit * Reason Comments Drainage Eye L eye draining clear fluid, irritated and swollen x 2 days Encounter Details Date Type Department Care Team (Late st Contact Info) Description 09/02/2017 3:40 PM COLD ROLL INSPECTOR - 09/02/2017 5:03 PM COLD ROLL INSPECTOR Emergency ER at [facility] [address] [place] [address] [id number] Acute bacterial conjunctivitis of left eye; Abrasion [...] Comments Blood Pressure 112/72 09/02/2017 2:35 PM COLD ROLL INSPECTOR Pulse 89 09/02/2017 2:35 PM COLD ROLL INSPECTOR Temperature 37 ??C (98.6 ??F) 09/02/2017 2:35 PM COLD ROLL INSPECTOR Respiratory Rate 18 09/02/2017 2:35 PM COLD ROLL INSPECTOR Oxygen Saturation 100% 09/02/2017 2:35 PM COLD ROLL INSPECTOR Inhaled Oxygen Concentration - - Weight 86.2 kg (190 lb) 09/02/2017 2:33 PM COLD ROLL INSPECTOR Height 162.6 cm (5' 4 ) 09/02/2017 2:33 PM COLD ROLL INSPECTOR Body Mass Index 32.61 09/02/2017 2:33 PM COLD ROLL INSPECTOR documented in this encounter Functional Status Functional [...] Discharge Instructions * Discharge Instructions* Mariah Casas, VP HR DIVERSITY-DESK EDITOR - 09/02/2017 4:42 PM COLD ROLL INSPECTOR Images from the original note were not [...] mascara and other eye makeup. ?? 2017 [employer] Information is for End User's use only and may not be sold, redistributed or otherwise used for commercial purposes. All illustrations and images included in CareNotes?? are the copyrighted property of [employer], [employer] or [employer]. The above information is an educational psychology professor only. It is not intended as medical advice for individual conditions or treatments. Talk to your doctor, nurse or pharmacist before following any medical regimen to see if it is safe and effective for you. 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 ?? 2017 [employer] Information is for End User's use only and may not be sold, redistributed or otherwise used for commercial purposes. All illustrations and images included in CareNotes?? are the copyrighted property of [employer], Inc. or [employer]. The above information is an educational psychology professor only. It is not intended as medical [...] insurance you can go tothe following clinics: [facility] [address] [place] [address] Appointments: [phone] [facility], [facility] [address] [place] [address] [facility] [address] [address] Appointments: [phone] [facility], [facility] [address] [place], [place] [id number] [facility] [address] [place] [address] [facility], [facility] [address] [place] [address] [facility]???s [facility] [address] [place] [address] [facility] [address] [place] [address] [facility] [address] [place] [address] Appointments: [phone] [facility] [address] [place] [address] without health insurance and you are not a citizen, refugee or legal resident yet? You may qualify to receive ???Medicaid for Women?? and it is free. For more information, call one of the Locations listed above If your child was born in the [facility] or is a legal resident for more than 5 years, he/she may be eligible for free or low cost health insurance: +: If the child is not eligible, you can still bring him/her to the clinics listed above to receive medical check-ups, shots and treatments For information about low cost medicines, call: ROLL INSPECTOR documented in this encounter Medications at Time [...] understanding. No other questions at this time. ROLL INSPECTOR * Mariah Casas APRN-CNP - 09/02/2017 3:54 PM CST Images from the original note were not included. Provider contact with the patient: 09/02/2017 15:54 Jumana Rivers [id number] [facility] EM[facility]ENCY [facility]PARTMENT History Chief [...] is allergic to Augmentin. She is a [employer]. Denies injury, vision changes. Eye Problem The [...] advised the patient to follow-up with: [facility], [address] [address] Raissa Ahumada MD [address] [place] [phone] Call in 1 day Disposition: Discharged By [...] complete. Mariah Casas, NEELAM-RIKKI 09/02/2017 3:54 PM ROLL INSPECTOR * Hien Giron, RN - 09/02/2017 3:46 [...] that need to be removed. Very pleasant. ROLL INSPECTOR documented in this encounter Plan of Treatment [...] Admin. by Other Provider 09/02/2017 4:11 PM COLD ROLL INSPECTOR 1 strip tetracaine 0.5% 0.5 % ophthalmic solution 1 drop 1 drop, Left Eye, ONCE, 1 dose, On Thu09/02/17 at 1615 $ Admin. by Other Provider 09/02/2017 4:11 PM COLD ROLL INSPECTOR 1 drop documented in this encounter Active and Recently Administered Medications Times are shown in COLD ROLL INSPECTOR. Scheduled Medication Order 08/31/2017 09/01/2017 09/02/2017 fluorescein [...] RN) documented in this encounter Care Teams Tire Buster Relationship Specialty Start Date [facility] PCP - General 10/10/16 10/12/17 documented as of this encounter
--- OUTSIDE RECORDS SUMMARY | 2024-09-25 20:08 | XMS_ITS | Encounter Summary ---
Author Organization [facility] Address [address] [facility] [place] [address] Care Team Providers Care Associate Professor Of Theology Name Role Phone Rema Austin MD Primary Care Provider [phone] Reason for Visit * Auth/Cert Specialty Diagnoses / Procedures Referred By Norm t Referred To Contact Referral ID Status Reason Start Date Expiration Date Visits Re quested Visits Authorized [id number] 1 1 Encounter Details Date Type Department Care Team (Late st Contact Info) Description 11/25/2020 3:14 PM CDT Anesthesia Event [facility] [address] [place] [address] Ariel Talavera MD [address] [facility] [place] [address] Nohemi Crowe MD [address] [facility] [place] [address] Anesthesia Record Procedure Summary Procedure Name Responsible [...] This list must include ALL known prescriptions, qbrc-vki-jzhbwdau, herbals, and vitamin/mineral/dietary (nutritional) supplements AND must [...] mg documented in this encounter Care Teams Associate Professor Of Theology Relationship Specialty Start Date End Date Rema Austin MD [address] [place] [address] [place] [id number] PCP - General Family Medicine 11/24/20 02/20/21 documented as of this encounter
--- OUTSIDE RECORDS SUMMARY | 2024-09-25 20:08 | XMS_ITS | Encounter Summary ---
Author Organization [facility] Address [address] [facility] [place] [address] Care Team Providers Care Floral Manager Name Role Phone Unavailable Primary Care [...] 02/02/2019 9:22 PM CDT Emergency ER at [facility] [address] [place] [address] Karen Hagan, DO [address] [place] [address] Other chest pain; Elevated d-dimer Discharge Disposition: [...] refuse treatment. The above information is an travelers' aid worker only. It is not intended as medical advice for individual conditions or treatments. Talk to your doctor, nurse or pharmacist before following any medical regimen to see if it is safe and effective for you. ?? Copyright [employer] 2019 Information is for End User's use only and may not be sold, redistributed or otherwise used for commercial purposes. All illustrations and images included in CareNotes?? are the copyrighted property of [employer]. or [employer] Gastroesophageal Reflux Disease WHAT YOU NEED TO [...] ask them during your visits. ?? Copyright [employer] 2019 Information is for End User's use only and may not be sold, redistributed or otherwise used for commercial purposes. All illustrations and images included in CareNotes?? are the copyrighted property of [employer]. or [employer] The above information is an travelers' aid worker only. It is not intended as medical [...] with the patient: 02/02/2019 20:17 Jumana Rivers [id number] [facility] EMERGENCY DEPARTMENT History [...] Negative Negative Ketone UA Negative Negative Specific Adkins UA 1.028 1.005 - 1.030 Blood UA [...] advised the patient to follow-up with: [facility] [address] [facility] [phone] In 1 day Disposition: Discharged Follow-up Information Follow-up With Details Why Contact Info [facility] In 1 day [address] [facility] [phone] User Date/Time Karen Hagan [...] of acute pulmonary process. Reading Radiologist: Hector Riavs MD on 02/02/2019 at 8:15 PM Karen Hagan DO CT ORDERABLES * (ABNORMAL) D-DIMER (02/02/2019 6:10 PM CDT) D-Dimer 0.64(H) 0.17 - 0.5 mg/L FEU 02/02/2019 6:44 PM CDT [facility] Blood BLOOD SPECIMEN / Unknown Venipuncture / Unknown 02/02/2019 6:10 PM CDT 02/02/2019 6:23 PM CDT Narrative [facility] - 02/02/2019 6:44 PM CDT [...] - COAGULATION OR DERABLES Performing Organization Address [facility] Co de Phone Number [facility] [address] [place] [phone] * TROPONIN I (02/02/2019 6:10 PM CDT) [facility] Troponin I <0.010 <0.038 ng/mL 02/02/2019 6:47 PM CDT [facility] Blood BLOOD SPECIMEN / Unknown Venipuncture / Unknown 02/02/2019 6:10 PM CDT 02/02/2019 6:23 PM CDT Narrative [facility] - 02/02/2019 6:47 PM CDT [...] - CHEMISTRY ORDE RABLES Performing Organization Address [facility] Co de Phone Number [facility] [address] [place] [address] [phone] * CULTURE URINE (02/02/2019 5:51 PM CDT) [facility] Culture Urine 10,000-50,000 CFU/mL urogenital marco CHRYSTAL 02/04/2019 2:[address] [facility] Urine URINE SPECIMEN OBTAINED BY CLEAN CATCH PROCEDURE / Unknown Collection / Unknown 02/02/2019 5:51 PM CDT 02/02/2019 5:51 PM CDT Karen Hagan DO LAB - MICROBIOLOGY O RDERABLES Performing Organization Address City/[facility]/ZIP Co de Phone Number [facility] [address] [place], [place] [address]RUST [phone] * (ABNORMAL) URINE MICROSCOPIC ONLY REFLEX TO CULTURE (02/02/2019 5:51 PM CDT) Reflex Status Culture to follow 02/02/2019 6:10 PM CDT [facility] RBC UA >100(A) None Seen, 0-2, 3-5 # /hpf 02/02/2019 6:10 PM CDT [facility] WBC UA 11-20(A) None Seen, 0-5 # /hpf 02/02/2019 6:10 PM CDT [facility] Bacteria UA None Seen None Seen 02/02/2019 6:10 PM CDT [facility] Squamous Epithelial Cells 3-5 None Seen, 0-2, 3-5 /hpf 02/02/2019 6:10 PM CDT [facility] Mucus UA 4+ /LPF 02/02/2019 6:10 PM CDT [facility] Urine URINE SPECIMEN OBTAINED BY CLEAN CATCH PROCEDURE / Unknown Collection / Unknown 02/02/2019 5:51 PM CDT 02/02/2019 5:51 PM CDT Narrative [facility] - 02/02/2019 6:10 PM CDT Karen Hagan DO LAB - URINALYSIS ORD ERABLES [facility] [address] [place] [address] * (ABNORMAL) URINALYSIS REFLEX MICROSCOPIC REFLEX CULTURE (02/02/2019 5:51 PM CDT) Color UA Yellow Straw, Yellow 02/02/2019 6:10 PM CDT [facility] Clarity UA Slt Cloudy(A) Clear 02/02/2019 6:10 PM CDT [facility] Glucose UA Negative Negative 02/02/2019 6:10 PM CDT [facility] Bilirubin UA Negative Negative 02/02/2019 6:10 PM CDT [facility] Ketone UA Negative Negative 02/02/2019 6:10 PM CDT [facility] Specific Adkins UA 1.028 1.005 - 1.030 02/02/2019 6:10 PM CDT [facility] Blood UA 3+(A) Negative 02/02/2019 6:10 PM CDT [facility] pH UA 6.0 5.0 - 8.0 pH 02/02/2019 6:10 PM CDT [facility] Protein UA 1+(A) Negative 02/02/2019 6:10 PM CDT [facility] Urobilinogen UA Negative Negative mg/dL 02/02/2019 6:10 PM CDT [facility] Nitrite UA Negative Negative 02/02/2019 6:10 PM CDT [facility] Leukocyte UA Trace(A) Negative 02/02/2019 6:10 PM CDT [facility] Urine Microscopy Urine microscopy to follow 02/02/2019 6:10 PM CDT [facility] Reflex Status Culture to follow 02/02/2019 6:10 PM CDT [facility] Urine URINE SPECIMEN OBTAINED BY CLEAN CATCH PROCEDURE / Unknown Collection / Unknown 02/02/2019 5:51 PM CDT 02/02/2019 5:51 PM CDT Narrative [facility] - 02/02/2019 6:10 PM CDT Ascorbic Acid can cause false negative urine strip tests for blood, glucose, nitrite, and bilirubin. Karen Hagan DO LAB - URINALYSIS ORD ERABLES [facility] [address] [place] [address] * HCG URINE QUALITATIVE - POCT (IP) INTERFACED (02/02/2019 5:46 PM CDT) HCG Qual Urine Negative Negative 02/02/2019 5:49 PM CDT [facility] Urine URINE / Unknown 02/02/2019 5 :46 PM CDT 02/02/2019 5:49 PM CDT Karen Hagan DO LAB - POINT OF CARE ORDERABLES [facility] [address] [place] [address] * HCG URINE QUAL POCT NOTIFICATION (02/02/2019 5:37 PM CDT) Comment Notification Label Only - See Separate Report 02/02/2019 7:01 PM CDT [facility] Urine URINE / Unknown 02/02/2019 5 :37 PM CDT 02/02/2019 5:37 PM CDT Karen Hagan DO LAB - URINALYSIS ORD ERABLES Performing Organization Address [facility] Co de Phone Number [facility] [address] [place] [address] * XR CHEST PA AND LATERAL (02/02/2019 [...] METABOLIC PANEL (02/02/2019 3:14 PM CDT) Pathologist [facility] Glucose 92 74 - 106 mg/dL 02/02/2019 3:35 PM CDT [facility] Sodium 140 136 - 145 mmol/L 02/02/2019 3:35 PM CDT [facility] Potassium 3.9 3.5 - 5.1 mmol/L 02/02/2019 3:35 PM CDT [facility] Chloride 109(H) 98 - 107 mmol/L 02/02/2019 3:35 PM CDT [facility] CO2 22(L) 23 - 31 mmol/L 02/02/2019 3:35 PM CDT [facility] Calcium 9.2 8.4 - 10.2 mg/dL 02/02/2019 3:35 PM CDT [facility] Anion Gap 9 8 - 16 mmol/L 02/02/2019 3:35 PM CDT [facility] BUN 10 7 - 18.7 mg/dL 02/02/2019 3:35 PM CDT [facility] Creatinine 0.67 0.55 - 1.02 mg/dL 02/02/2019 3:35 PM CDT [facility] Alkaline Phosphatase 56 40 - 150 U/L 02/02/2019 3:35 PM CDT [facility] ALT 8(L) 13 - 61 U/L 02/02/2019 3:35 PM CDT [facility] AST 15 5 - 34 U/L 02/02/2019 3:35 PM CDT [facility] Protein Total 7.4 6.4 - 8.3 gm/dL 02/02/2019 3:35 PM CDT [facility] Albumin 4.3 3.5 - 5.2 gm/dL 02/02/2019 3:35 PM CDT [facility] Bilirubin Total 0.3 0.2 - 1.0 mg/dL 02/02/2019 3:35 PM CDT [facility] eGFR by MDRD >60 >60 mL/min/1.7 3m2 02/02/2019 3:35 PM CDT [facility] eGFR by MDRD >60 >60 mL/min/1.7 3m2 02/02/2019 3:35 PM CDT [facility] Blood BLOOD SPECIMEN / Unknown Venipuncture / Unknown 02/02/2019 3:14 PM CDT 02/02/2019 3:19 PM CDT Narrative [facility] - 02/02/2019 3:35 PM CDT Attention clinician: BUN Reference Range has changed. Karen Hagan DO LAB - CHEMISTRY JOANNA YUNG [facility] [address] [place] [address] * (ABNORMAL) CBC W AUTO DIFFERENTIAL (02/02/2019 3:14 PM CDT) WBC 7.3 4.4 - 10.7 x10E9/L 02/02/2019 3:27 PM CDT [facility] WBC Corrected x10E9/L 02/02/2019 3:27 PM CDT [facility] RBC 4.55 3.80 - 5.20 x10E12/L 02/02/2019 3:27 PM CDT [facility] Hemoglobin 10.4(L) 12.0 - 15.6 gm/dL 02/02/2019 3:27 PM CDT [facility] Hematocrit 34.5(L) 35.9 - 45.5 % 02/02/2019 3:27 PM CDT [facility] MCV 75.8(L) 80.7 - 98.3 fl 02/02/2019 3:27 PM CDT [facility] MCH 22.9(L) 26.7 - 34.0 pg 02/02/2019 3:27 PM CDT [facility] MCHC 30.1(L) 30.8 - 35.9 gm/dL 02/02/2019 3:27 PM CDT [facility] Platelet Count 397 153 - 416 x10E9/L 02/02/2019 3:27 PM CDT [facility] RDW-CV 18.1(H) 12.1 - 14.9 % 02/02/2019 3:27 PM CDT [facility] MPV 9.0(L) 9.4 - 12.9 fl 02/02/2019 3:27 PM CDT [facility] Neutrophils % 53.3 44.0 - 73.0 % 02/02/2019 3:27 PM CDT [facility] Lymphocytes % 27.9 20.0 - 43.0 % 02/02/2019 3:27 PM CDT [facility] Monocytes % 11.2 5.0 - 13.0 % 02/02/2019 3:27 PM CDT [facility] Eosinophils % 5.9 0.0 - 6.0 % 02/02/2019 3:27 PM CDT [facility] Basophils % 1.1 0.0 - 2.0 % 02/02/2019 3:27 PM CDT [facility] Immature Granulocytes 0.6 0 - 1 % 02/02/2019 3:27 PM CDT [facility] Neutrophil Absolute 3.87 2.01 - 7.14 x10E9/L 02/02/2019 3:27 PM CDT [facility] Lymphocytes Absolute 2.02 1.07 - 3.94 x10E9/L 02/02/2019 3:27 PM CDT [facility] Monocytes Absolute 0.81 0.26 - 1.07 x10E9/L 02/02/2019 3:27 PM CDT [facility] Eosinophils Absolute 0.43 0 - 0.47 x10E9/L 02/02/2019 3:27 PM CDT [facility] Basophils Absolute 0.08 0 - 0.08 x10E9/L 02/02/2019 3:27 PM CDT [facility] Immature Granulocytes Absolute 0.04 0.00 - 0.06 x10E9/L 02/02/2019 3:27 PM CDT [facility] nRBC Auto 0 /100 WBC 02/02/2019 3:27 PM CDT [facility] Blood BLOOD SPECIMEN / Unknown Venipuncture / Unknown 02/02/2019 3:14 PM CDT 02/02/2019 3:19 PM CDT Karen Hagan DO LAB - HEMATOLOGY ORD ERABLES [facility] [address] [place] [address] * TROPONIN I (02/02/2019 3:14 PM CDT) Troponin I <0.010 <0.038 ng/mL 02/02/2019 3:41 PM CDT [facility] Blood BLOOD SPECIMEN / Unknown Venipuncture / Unknown 02/02/2019 3:14 PM CDT 02/02/2019 3:19 PM CDT Narrative [facility] - 02/02/2019 3:41 PM CDT [...] - CHEMISTRY ORDBoy YUNG Performing Organization Address [facility] Co de Phone Number [facility] [address] [place] [address] * EKG 12-LEAD (02/02/2019 3:13 PM CDT) Ventricular Rate 87 BPM [facility] Atrial Rate 87 BPM [facility] P-R Interval 140 ms [facility] QRS Duration ms 74 ms [facility] Q-T Interval ms 354 ms [facility] QTC Calculation (Bezet) 425 ms [facility] Calculated P Franklin 63 degrees [facility] Calculated R [place] 35 degrees [facility] Calculated T Franklin 30 degrees [facility] Interpretation EKG NORMAL SINUS RHYTHM NORMAL ECG WHEN COMPARED WITH ECG OF 08-MAR-2016 17:44, NO SIGNIFICANT CHANGE WAS FOUND Confirmed by MD JESS, NUSRAT Guillaume ([id number]) on 02/03/2019 7:15:49 AM [facility] 02/02/2019 3:13 PM CDT 02/03/2019 7:15 AM CDT Karen Hagan DO ECG ORDERABLES Performing Organization Address [facility] de Phone Number [facility] documented in this encounter Visit Diagnoses [...]
--- OUTSIDE RECORDS SUMMARY | 2024-09-25 20:09 | XMS_ITS | Encounter Summary ---
Author Organization [facility] Address [address] [place] [address] Care Team Providers Care Store Planner Name Role Phone Unavailable Primary Care Provider Unavailabl e Reason for Visit * Reason Comments PROBLEM stomach pains, unkno wn weeks LMP 12/01 Encounter Details Date Type Department Care Team (Late st Contact Info) Description 01/10/2014 9:57 PM CDT - 01/11/2014 12:29 AM CDT Emergency ER at [facility] [address] [place] [address] Bindu Flaherty MD [address] [place] [address] Abdominal pain in (HCC) (Primary [...] placenta is in. ?? Baby kicks. ?? [place] contractions. These are mild contractions that do [...] Document Reviewed: 03/19/2012 ExitCare?? Patient Information ??2014 [employer]. * Discharge Instructions* Document, Scanned - 01/14/2014 [...] with the patient: 01/10/2014 22:03 Jumana Rivers [id number] [facility] [...] has a care appointment forTh. Physician(s): [facility] (PCP) Pain Abdominal [...] Yellow, Dark Yellow Clarity UA Clear Specific [place] UA >=1.031 (*) 1.005-1.030 pH UA 6.0 [...] 57.2 44.0-73.0 % Lymph 27.6 20.0-43.0 % [place] 8.4 5.0-13.0 % Eos 5.9 0.0-6.0 % Baso 0.5 0.0-2.0 % Immature Grans 0.4 0-1 % Neutro Abs 5.65 2.01-7.14 x10^9/L Lymph Abs 2.73 1.07-3.94 x10^9/L [place] Abs 0.83 0.26-1.07 x10^9/L Eosin Abs 0.58 [...] QUANTITATIVE Component Value Range HCG Quant Serum [id number] US OB LESS14 WK TRANS/TRNSAB/DOP Final Result: [...] Patient instructed to follow up with Group [facility] and QUALITY SYSTEMS TECHNICIAN. Patient is stable and is comfortable with [...] Prescriptions No medications on file Follow-up: Group [facility] DISCHARGED TO HOME [...] of Dr. BINDU FLAHERTY MD * Mary Maedows - 01/10/2014 9:49 PM CDT Pt gone [...] POINT OF CARE ORDERABLES [facility] POCT TESTING [address] [place] [address] * (ABNORMAL) COMPREHENSIVE METABOLIC PANEL (01/10/2014 9:16 [...] - 126 U/L 01/10/2014 9:39 PM CDT [facility] ALT 13 12 - 78 U/L 01/10/2014 9:39 PM CDT [facility] AST 8 5 - 40 U/L 01/10/2014 9:39 PM CDT [facility] Protein Total 7.3 6.4 - 8.2 gm/dL 01/10/2014 9:39 PM CDT [facility] Albumin 3.5 3.4 - 5.0 gm/dL 01/10/2014 9:39 PM CDT [facility] Bilirubin Total 0.4 0.2 - 1.0 mg/dL 01/10/2014 9:39 PM CDT [facility] Blood BLOOD SPECIMEN / Unknown Venipuncture / Unknown 01/10/2014 9:16 PM CDT 01/10/2014 9:21 PM CDT Bindu Flaherty MD LAB - CHEMISTRY JOANNA [facility] Organization Address City/State/[facility] Co de Phone Number [facility] [address] [place] [address] * (ABNORMAL) CBC W AUTO DIFFERENTIAL (01/10/2014 9:16 PM CDT) WBC 9.9 4.4 - 10.7 x10^9/L 01/10/2014 9:25 PM CDT [facility] RBC 4.47 3.80 - 5.20 x10^12/L 01/10/2014 9:25 PM CDT [facility] Hemoglobin 11.3(L) 12.0 - 15.6 gm/dL 01/10/2014 9:25 PM CDT [facility] Hematocrit 33.8(L) 35.9 - 45.5 % 01/10/2014 9:25 PM CDT [facility] MCV 75.6(L) 80.7 - 98.3 fl 01/10/2014 9:25 PM CDT [facility] MCH 25.3(L) 26.7 - 34.0 pg 01/10/2014 9:25 PM CDT [facility] MCHC 33.4 30.8 - 35.9 gm/dL 01/10/2014 9:25 PM CDT [facility] Platelet Count 342 153 - 416 x10^9/L 01/10/2014 9:25 PM CDT [facility] RDW-CV 17.6(H) 12.1 - 14.9 % 01/10/2014 9:25 PM CDT [facility] MPV 9.2(L) 9.4 - 12.9 fl 01/10/2014 9:25 PM CDT [facility] Neutrophils % 57.2 44.0 - 73.0 % 01/10/2014 9:25 PM CDT [facility] Lymphocytes % 27.6 20.0 - 43.0 % 01/10/2014 9:25 PM CDT [facility] Monocytes % 8.4 5.0 - 13.0 % 01/10/2014 9:25 PM CDT [facility] Eosinophils % 5.9 0.0 - 6.0 % 01/10/2014 9:25 PM T [facility] Basophils % 0.5 0.0 - 2.0 % 01/10/2014 9:25 PM T [facility] Immature Granulocytes 0.4 0 - 1 % 01/10/2014 9:25 PM T [facility] Neutrophil Absolute 5.65 2.01 - 7.14 x10^9/L 01/10/2014 9:25 PM CDT [facility] Lymphocytes Absolute 2.73 1.07 - 3.94 x10^9/L 01/10/2014 9:25 PM CDT [facility] Monocytes Absolute 0.83 0.26 - 1.07 x10^9/L 01/10/2014 9:25 PM T [facility] Eosinophils Absolute 0.58(H) 0 - 0.47 x10^9/L 01/10/2014 9:25 PM T [facility] Basophils Absolute 0.05 0 - 0.08 x10^9/L 01/10/2014 9:25 PM [facility] Immature Granulocytes Absolute 0.04 0.00 - 0.06 x10^9/L 01/10/2014 9:25 PM T [facility] nRBC Auto 0 /100 WBC 01/10/2014 9:25 PM [facility] Blood BLOOD SPECIMEN / Unknown Venipuncture / Unknown 01/10/2014 9:16 PM CDT 01/10/2014 9:21 PM CDT Bindu Flaherty MD LAB - HEMATOLOGY ORD ERABLES Performing Organization Address City/[facility]/ZIP Co de Phone Number [facility] [address] [place] [address] * (ABNORMAL) URINALYSIS ROUTINE W/REFLEX TO CULTURE (01/10/2014 9:16 PM CDT) Color UA Dulce(A) Straw, Yellow, Dark Yellow 01/10/2014 9:26 PM CDT [facility] Clarity UA Clear 01/10/2014 9:26 PM CDT [facility] Specific [place] UA >=1.031(H) 1.005 - 1.030 01/10/2014 9:26 PM CDT [facility] pH UA 6.0 5.0 - 8.0 pH 01/10/2014 9:26 PM CDT [facility] Protein UA Trace(A) Negative 01/10/2014 9:26 PM CDT [facility] Blood UA Negative Negative 01/10/2014 9:26 PM CDT [facility] Leukocyte UA Negative Negative 01/10/2014 9:26 PM CDT [facility] Nitrite UA Negative Negative 01/10/2014 9:26 PM CDT [facility] Glucose UA Negative Negative 01/10/2014 9:26 PM CDT [facility] Ketone UA 3+(A) Negative 01/10/2014 9:26 PM CDT [facility] Bilirubin UA 1+(A) Negative 01/10/2014 9:26 PM CDT [facility] Urobilinogen UA 1.0 0.1 - 1.0 EU/dL 01/10/2014 9:26 PM CDT [facility] Reflex Status Culture not indicated 01/10/2014 9:26 PM T [facility] Urine URINE SPECIMEN OBTAINED BY CLEAN CATCH PROCEDURE / Unknown Collection / Unknown 01/10/2014 9:16 PM CDT 01/10/2014 9:21 PM CDT Bindu Flaherty MD LAB - URINALYSIS ORD ERABLES Performing Organization Address [facility]/ZIP Co de Phone Number [facility] [address] [place] [address] * HCG BETA BLOOD QUANTITATIVE (01/10/2014 9:16 PM CDT) hCG Quantitative 15,640 mIU/mL 01/11/20 14 10:55 PM CDT [facility] Blood BLOOD SPECIMEN / Unknown Venipuncture / Unknown 01/10/2014 9:16 PM CDT 01/10/2014 10:26 PM CDT Narrative [facility] - 01/10/2014 10:55 PM CDT [...] Flaherty MD LAB - CHEMISTRY JOANNA YUNG [facility] [address] [place] [address] documented in this encounter Visit Diagnoses Diagnosis [...]
--- OUTSIDE RECORDS SUMMARY | 2024-09-25 20:09 | XMS_ITS | Encounter Summary ---
Author Organization [facility] Address [address] [address] Care Team Providers Care Pharmacovigilance Scientist Name Role Phone Unavailable Primary Care Provider Unavailabl e Reason for Visit * Reason Comments Pain Urinary taking antibiotics f or UTI for 3 days and still having symptoms/no fever or back pain Encounter Details Date Type Department Care Team (Late st Contact Info) Description 10/03/2016 8:56 PM BANDAGE WINDING MACHINE OPERATOR - 10/03/2016 11:25 PM BANDAGE WINDING MACHINE OPERATOR Emergency ER at [facility] [address] [place] [address] Acute cystitis without hematuria (Primary Dx); [...] Comments Blood Pressure 111/75 10/03/2016 11:24 PM BANDAGE WINDING MACHINE OPERATOR Pulse 88 10/03/2016 11:24 PM BANDAGE WINDING MACHINE OPERATOR Temperature 37.1 ??C (98.7 ??F) 10/03/2016 11:[address] Respiratory Rate 14 10/03/2016 11:24 PM BANDAGE WINDING MACHINE OPERATOR Oxygen Saturation 100% 10/03/2016 11:24 PM BANDAGE WINDING MACHINE OPERATOR Inhaled Oxygen Concentration - - Weight 85.7 kg (189 lb) 10/03/2016 7:24 PM BANDAGE WINDING MACHINE OPERATOR Height 162.6 cm (5' 4 ) 10/03/2016 7:24 PM BANDAGE WINDING MACHINE OPERATOR Body Mass Index 32.44 10/03/2016 7:24 PM BANDAGE WINDING MACHINE OPERATOR documented in this encounter Functional Status [...] Discharge Instructions * Discharge Instructions* Alina Sevilla, PAVER INSTALLER-CONSUMER SERVICES ADVISOR - 10/03/2016 11:13 PM BANDAGE WINDING MACHINE OPERATOR Images from the original note were [...] Document Reviewed: 10/01/2012 ExitCare?? Patient Information ??2015 [employer]. This information is not intended to replace [...] Document Reviewed: 04/07/2014 ExitCare?? Patient Information ??2015 [employer]. This information is not intended to replace advice given to you by your health care provider. Make sure you discuss any questions you have with your health care provider. AGE WINDING MACHINE OPERATOR documented in this encounter Medications at [...] ED ambulatory to home with self care. AGE WINDING MACHINE OPERATOR * Alina Sevilla APRN-CNP - 10/03/2016 10:25 PM CST Provider contact with the patient: 10/03/2016 22:25 Jumana Rivers [id number] [facility] History Chief [...] to establish primary care in December at [facility]. No thoughts of suicide or homicide. She [...] Dark Yellow Clarity UA Slt Cloudy Specific [place] UA 1.020 1.005 - 1.030 pH UA [...] have advised the patient to follow-up with: [facility] [address] [place] [address] Establish primary care as soon as possible. Disposition: Discharged Alina Sevilla (Wills) NEELAM CONSUMER SERVICES ADVISOR No scribe was used in the preparation of this note - JR AGE WINDING MACHINE OPERATOR * Paras Angulo, RAZIA - 10/03/2016 9:21 PM CST States 3 days ago was started on antibiotic for UTI and states still having pain with urination. States symptoms have not improved. Denies any pain unless she is urinating. States has slight white vaginal discharge. AGE WINDING MACHINE OPERATOR documented in this encounter Plan of Treatment Not on file documented as of this encounter Procedures Procedure Name Priority Date/Time Associated Diagnosis Comments URINE MICROSCOPIC ONLY REFLEX TO CULTURE STAT 10/03/2016 6:58 PM BANDAGE WINDING MACHINE OPERATOR URINALYSIS REFLEX MICROSCOPIC REFLEX CULTURE STAT 10/03/2016 6:58 PM BANDAGE WINDING MACHINE OPERATOR documented in this encounter Results * (ABNORMAL) URINALYSIS MICROSCOPIC ONLY W/REFLEX CULTURE (10/03/2016 6:58 PM BANDAGE WINDING MACHINE OPERATOR) RBC UA 2-5 0-2, 2-5 # /hpf 10/03/2016 7:44 PM BANDAGE WINDING MACHINE OPERATOR [facility] WBC UA 0-2 0-2, 2-5 # /hpf 10/03/2016 7:44 PM BANDAGE WINDING MACHINE OPERATOR [facility] Epithelial Cell UA 5-10(A) 0-2, 2-5 # /hpf 10/03/2016 7:44 PM BANDAGE WINDING MACHINE OPERATOR [facility] Hyaline Casts 0-2 0 - 2 # /lpf 10/03/2016 7:44 PM BANDAGE WINDING MACHINE OPERATOR [facility] Urine URINE SPECIMEN OBTAINED BY CLEAN CATCH PROCEDURE / Unknown Collection / Unknown 10/03/2016 6:58 PM BANDAGE WINDING MACHINE OPERATOR 10/03/2016 7:05 PM BANDAGE WINDING MACHINE OPERATOR Jono Parra DO LAB - URINALYSI S ORDERABLES [facility] [address] [place] [address] * (ABNORMAL) URINALYSIS ROUTINE W/REFLEX TO CULTURE (10/03/2016 6:[address] [facility]) Color UA Yellow Straw, Yellow, Dark Yellow 10/03/2016 7:27 PM [facility] Clarity UA Slt Cloudy 10/03/2016 7:27 PM [facility] Specific [place] UA 1.020 1.005 - 1.030 10/03/2016 7:27 PM [facility] pH UA 7.5 5.0 - 8.0 pH 10/03/2016 7:27 PM [facility] Protein UA Negative Negative 10/03/2016 7:27 PM [facility] Blood UA Negative Negative 10/03/2016 7:27 PM [facility] Leukocyte UA Negative Negative 10/03/2016 7:27 PM [facility] Nitrite UA Negative Negative 10/03/2016 7:27 PM [facility] Glucose UA Negative Negative 10/03/2016 7:27 PM [facility] Ketone UA Negative Negative 10/03/2016 7:27 PM [facility] Bilirubin UA Negative Negative 10/03/2016 7:27 PM [facility] Urobilinogen UA 0.2 0.1 - 1.0 EU/dL 10/03/2016 7:27 PM [facility] WBC UA Auto Reflex to manual(A) 0-2, 2-5 # /hpf 10/03/2016 7:27 PM [facility] RBC UA Auto Reflex to manual(A) 0-2, 2-5 # /hpf 10/03/2016 7:27 PM [facility] Epithelial Cell UA Auto Reflex to manual(A) 0-2, 2-5 # /hpf 10/03/2016 7:27 PM [facility] Bacteria UA Auto Reflex to manual(A) None seen 10/03/2016 7:27 PM [facility] Reflex Status Culture not indicated 10/03/2016 7:27 PM [facility] Urine URINE SPECIMEN OBTAINED BY CLEAN CATCH PROCEDURE / Unknown Collection / Unknown 10/03/2016 6:58 PM BANDAGE WINDING MACHINE OPERATOR 10/03/2016 7:05 PM BANDAGE WINDING MACHINE OPERATOR Jono Hazel Fidel DO LAB - URINALYSI S ORDERABLES [facility] [address] [place] [address] documented in this encounter Visit Diagnoses Diagnosis [...] calcium-fortified juice. $ Given 10/03/2016 10:36 PM BANDAGE WINDING MACHINE OPERATOR 500 mg phenazopyridine (PYRIDIUM) tablet 200 mg 200 mg, Oral, NOW, 1 dose, On Thu10/03/16 at 2230 $ Given 10/03/2016 10:36 PM BANDAGE WINDING MACHINE OPERATOR 200 mg documented in this encounter Active and Recently Administered Medications Times are shown in BANDAGE WINDING MACHINE OPERATOR. Scheduled Medication Order 10/01/2016 10/02/2016 10/03/2016 ciprofloxacin [...]
--- OUTSIDE RECORDS SUMMARY | 2024-09-25 20:09 | XMS_ITS | Encounter Summary ---
Author Organization [facility] Address [address] [place] [address] Care Team Providers Care Inspector Purchased Parts Name Role Phone Unavailable Primary Care Provider Unavailabl e Reason for Visit * Reason Comments Pain Pelvic * Auth/Cert - Closed Specialty Diagnoses / Procedures Referred By Norm benjamin Referred To Contact Referral ID Status Reason Start Date Expiration Date Visits Re quested Visits Authorized [id number] Closed 1 1 Encounter Details Date Type Department Care Team (Latest Contact Info) Description 04/15/2014 12:47 PM CDT - 04/15/2014 4:17 PM CDT Hospital Encounter [facility] [address] [place] [address] Isaiah Kearney MD [address] [place], [place] [id number] Discharge Disposition: Home or Self Care Social [...] cramps, nausea,or diarrhea. Important Telephone Number: WEU [phone] documented in this encounter Medications at Time [...] care: is with Dr. Aicha Bucio at [facility]. Patient presents with complaints of pelvic pain [...] (87.544 kg) Assessment: Previable. No contractions on [place] Physical Exam: General: alert, cooperative, no distress [...] Yellow, Dark Yellow Clarity UA Clear Specific [place] UA >=1.030 1.005-1.030 pH UA 6.0 5.0-8.0 [...] Hyaline Casts 0-2 0-2 # /lpf labs [facility] will request if admit Assessment/Plan: 24 y.o. @ 19w2d 1. Pelvic pain 1. Bacterial vaginosis 1. Dx on wet prep 2. Flagyl 500mg BID x7days 2. UTI 1. Macrobid x7days 3. Round ligament pain 1. Counseled on tylenol, benadryl, position changes 2. well being: previable 3. Follow up: [facility] 04/24/14 4. Dispo: Discharge to home with [...] skin/urogenital marco [place] 04/18/2014 12:16 PM CDT [facility] Culture <10,000 CFU/mL Yeast(A) [place] 04/18/2014 12:16 PM CDT [facility] Culture <10,000 CFU/mL Streptococcus agalactiae (Group B)(A) [place] 04/18/2014 12:16 PM CDT [facility] Urine URINE SPECIMEN OBTAINED BY CLEAN CATCH PROCEDURE / Unknown Collection / Unknown 04/15/2014 1:00 PM CDT 04/15/2014 1:04 PM CDT Narrative [facility] - 04/18/2014 12:16 PM CDT Susceptibility testing of penicillin, other beta-lactam antibiotics, and vancomycin is not necessary for beta-hemolytic streptococci groups A,B,C and G because resistant strains have not been recognized. Culture in progress Aquiles Vargas MD LAB - MICROBIOLO GY ORDERABLES Performing Organization Address City/[facility]/ZIP Co de Phone Number [facility] [address] [place] [address], [facility] * (ABNORMAL) URINALYSIS MICROSCOPIC ONLY W/REFLEX CULTURE (04/15/2014 1:00 PM CDT) RBC UA 2-5 0-2, 2-5 # /hpf 04/15/2014 2:17 PM CDT [facility] WBC UA 20-50(A) 0-2, 2-5 # /hpf 04/15/2014 2:17 PM CDT [facility] Bacteria UA 2+(A) None Seen 04/15/2014 2:17 PM CDT [facility] Mucus UA 1+ 04/15/2014 2:17 PM CDT [facility] Hyaline Casts 0-2 0 - 2 # /lpf 04/15/2014 2:17 PM CDT [facility] Urine URINE SPECIMEN OBTAINED BY CLEAN CATCH PROCEDURE / Unknown Collection / Unknown 04/15/2014 1:00 PM CDT 04/15/2014 1:04 PM CDT Aquiles Vargas MD LAB - URINALYSIS ORDERABLES Performing Organization Address City/[facility]/ZIP Co de Phone Number [facility] [address] [place] [address] * (ABNORMAL) URINALYSIS ROUTINE W/REFLEX TO CULTURE (04/15/2014 1:00 PM CDT) Color UA Yellow Straw, Yellow, Dark Yellow 04/15/2014 2:12 PM CDT [facility] Clarity UA Clear 04/15/2014 2:12 PM CDT [facility] Specific [place] UA >=1.030 1.005 - 1.030 04/15/2014 2:12 PM CDT [facility] pH UA 6.0 5.0 - 8.0 pH 04/15/2014 2:12 PM CDT [facility] Protein UA Trace(A) Negative 04/15/2014 2:12 PM CDT [facility] Blood UA Negative Negative 04/15/2014 2:12 PM CDT [facility] Leukocyte UA 1+(A) Negative 04/15/2014 2:12 PM CDT [facility] Nitrite UA Negative Negative 04/15/2014 2:12 PM CDT [facility] Glucose UA Negative Negative 04/15/2014 2:12 PM CDT [facility] Ketone UA 3+(A) Negative 04/15/2014 2:12 PM CDT [facility] Bilirubin UA Negative Negative 04/15/2014 2:12 PM CDT [facility] Urobilinogen UA 1.0 0.1 - 1.0 EU/dL 04/15/2014 2:12 PM CDT [facility] Reflex Status Culture to follow 04/15/2014 2:12 PM CDT [facility] Urine URINE SPECIMEN OBTAINED BY CLEAN CATCH PROCEDURE / Unknown Collection / Unknown 04/15/2014 1:00 PM CDT 04/15/2014 1:04 PM CDT Aquiles Vargas MD LAB - URINALYSIS ORDERABLES Performing Organization Address City/State/[facility] Co de Phone Number [facility] [address] [place] [address] * GLUCOSE PROTEIN KETONE URINE - POINT OF CAR (04/15/2014 12:45 PM CDT) Glucose UA neg Negative [facility] POCT TESTING Protein UA trace Negative [facility] TEST[facility] Ketone UA 3+ Negative [facility] PO[facility] TEST[facility] QC Verified Yes [facility] POC T TESTING Urine specimen (specimen) URINE / Unknown 04/15/2014 12:45 PM CDT Aquiles Vargas MD LAB - POINT OF C ARE ORDERABLES [facility] POCT TESTING [address] [place] [address], [facility] documented in this encounter Visit Diagnoses [...]
--- OUTSIDE RECORDS SUMMARY | 2024-09-25 20:09 | XMS_ITS | Encounter Summary ---
Author Organization [facility] Address [address] [facility] [place] [address] Care Team Providers Care Journeyman Plumber Name Role Phone Unavailable Primary Care Provider Unavailabl e Reason for Visit * Reason Comments Pain Head STYLES x4 days no relief with OTC meds Pain Pelvic pelvic pain onset 2 weeks ago Encounter Details Date Type Department Care Team (Late st Contact Info) Description 02/11/2015 10:00 PM CDT - 02/12/2015 1:20 AM CDT Emergency ER at [facility] [address] [place] [id number] Jono Parra, DO [address] [place] [id number] Headache(784.0); Abdominal pain, generalized Discharge Disposition: Home [...] directed by your caregiver. ?? Only take ngeb-lyl-elwriaq or prescription medicines for pain, discomfort, or [...] Document Reviewed: 04/11/2009 ExitCare?? Patient Information ??2014 [employer]. Acute Headache WHAT YOU SHOULD KNOW: An [...] of your face or body. ?? 2015 [employer]tract. Information is for End User's use only and may not be sold, redistributed or otherwise used for commercial purposes. All illustrations and images included in CareNotes?? are the copyrighted property of [employer], [employer]. or [employer]. The above information is an mental health aide only. It is not intended as [...] of your face or body. ?? 2015 [employer]tract. Information is for End User's use only and may not be sold, redistributed or otherwise used for commercial purposes. All illustrations and images included in CareNotes?? are the copyrighted property of A.D.A.M., Inc. or [employer]. The above information is an mental health aide only. It is not intended as [...] change sides. Migraines often occur in the spiritism, the back of the head, or behind [...] refuse treatment. The above information is an mental health aide only. It is not intended as medical advice for individual conditions or treatments. Talk to your doctor, nurse or pharmacist before following any medical regimen to see if it is safe and effective for you. ?? 2014 [employer]. Information is for End User's use only and may not be sold, redistributed or otherwise used for commercial purposes. All illustrations and images included in CareNotes?? are the copyrighted property of [employer]. or [employer]. Acute Headache Deven Farias, SaturninoR, & Mary Anne Solano: A non-selective (amitriptyline), but not a selective (citalopram), serotonin reuptake inhibitor is effective in the prophylactic treatment of chronic tension-type headache. J Neurol Neurosurg Psychiatry, 1996; 61(3):285-290. [facility]: Alternative medicine: the definitive guide. [place], [place]: [employer] Medicine Pub., 1993. GEENA Arredondo & JAYDEN Hall: Pediatric acute pain management. Anesthesiol Clin [place], 2005; 23(4):789-814. ME Micki, DR Kristine, ISAC Salazar, et al: Does this patient with headache have a migraine or need neuroimaging?. JUAN, 2006; 296(10):2211-1219. Yahaira,C & Nancy,S: Suspected subarachnoid haemorrhage with [...] onset of chronic headache in patients attending [facility] practice. Headache, 1999; 39(5):317-320. KEHINDE Aleman & VICTORINO Bledsoe: Management of subarachnoid haemorrhage. J Neurol Neurosurg Psychiatry,1993; 56(9):947-959. CHELITA Lackey: Non-traumatic headache in the emergency department. Criss Emerg Med, 1980; 9(8):404-409. JERICA Rubalcava, HareshS, DainaG, et al: Practice parameter: evaluation of children and adolescents with recurrent headaches: report of the Quality Standards Subcommittee of the [place] Academy of Neurology and the Practice Committee of the Child Neurology Society. <Vo> 67^ (10)^ B1699-6, 2002; 59(4):490-498. ANGELINE Last, EMMANUEL Hernandes, & BRYANNA Kim: Doxepin in the prophylactic treatment of mixed 'vascular' and tension headache. Headache, 1979; 19(7):382-383. JENI Mujica & PHILIP Smith: Management of the patient with suspected temporal arteritis a decision-analytic approach. Ophthalmology, 2005; 112(5):744-756. JACI Hill & YE Cheney: The erythrocyte sedimentation rate. J Emerg Med, 1997; 15(6):869-874. [employer]: Package Insert: NEOPROFEN(R) IV injection: ibuprofen lysine IV injection. [place], [place]: [employer];, Dec 2005. Armaan Brand, TomasF, LeeL, et al: Polymyalgia rheumatica and giant-cell arteritis. The [place] Journal of Medicine, 2002; 347(4):261-271. CHELITA Dillard & Isamar,REYNOLD: A study of caffeine consumption and symptoms; indigestion, palpitations, tremor, headache and insomnia. Int J Epidemiol, 1985; 14(2):239-248. BRAD Angel: Practice parameter: evidence-based guidelines for migraine headache (an evidence-based review): report of the Quality Standards Subcommittee of the [place] Academy of Neurology. <Vo> 67^ (10)^ T4865-3, 2000; 55(6):754-762. Silver,N: Headache (chronic tension-type). Clin Evid, 2005; 2005(14):9735-2578. MAJRORIE Landaverde & LUCAS Austin: Does this patient [...] Mary Anne Jenkins: Subarachnoid haemorrhage. Lancet, 1992; 339(3935):653-654. JULIOCESAR Kearney: Cerebrospinal fluid data. 1. Interpretation in intracranial hemorrhage and meningitis. Postgrad Med, 1980; 68(4):181-186, 187. DI Hebert & PAUL Waller: Giant-cell arteritis and polymyalgia rheumatica. Criss Rn First Assist Med, 2003; 139(6):505-515. ?? 2014 Xtract. Information is for End User's use only and may not be sold, redistributed or otherwise used for commercial purposes. All illustrations and images included in CareNotes?? are the copyrighted property of A.D.A.M., Inc. or [employer]. The above information is an mental health aide only. It is not intended as [...] with the patient: 02/11/2015 22:24 Jumana Rivers [id number] [facility] EMERGENCY DEPARTMENT History Chief Complaint Patient presents [...] ecg-none In obtaining the history, the patient/patient's vendor representatives stated their primary physician is [facility] Medications Current Outpatient [...] (*) 44.0-73.0 % Lymph 42.0 20.0-43.0 % Long 10.7 5.0-13.0 % Eos 4.2 0.0-6.0 % Baso 0.7 0.0-2.0 % Immature Grans 0.3 0-1 % Neutro Abs 3.12 2.01-7.14 x10^9/L Lymph Abs 3.11 1.07-3.94 x10^9/L Long Abs 0.79 0.26-1.07 x10^9/L Eosin Abs 0.31 [...] Yellow, Dark Yellow Clarity UA Cloudy Specific [place] UA >1.030 (*) 1.005-1.030 pH UA 6.0 [...] Tm's clear, no tenderness over cranium, no gonazlez sign, no raccoon eyes noted, no sign [...] have advised the patient to follow-up with: [facility] referral line [phone] Schedule an appointment as soon as possible [...] POINT OF CARE ORDERABLES Performing Organization Address City/[facility]/ZIP Co de Phone Number [facility] [address] [place] [address], [facility] [phone] * CULTURE URINE (02/11/2015 10:35 PM CDT) Pathologist [facility] Culture >10,000 CFU/mL multiple bacterial morphotypes present. Suggest recollection. CHRYSTAL 02/14/2015 12:23 PM CDT [facility] Urine URINE SPECIMEN OBTAINED BY CLEAN CATCH PROCEDURE / Unknown Collection / Unknown 02/11/2015 10:35 PM CDT 02/11/2015 10:41 PM CDT Jono Parra DO LAB - MICROBIOL OGY ORDERABLES [facility] [address] [place] [address], [facility] [phone] * (ABNORMAL) URINALYSIS ROUTINE W/REFLEX TO CULTURE (02/11/2015 10:35 PM CDT) Color UA Yellow Straw, Yellow, Dark Yellow 02/11/2015 10:56 PM [facility] Clarity UA Cloudy 02/11/2015 10:56 PM [facility] Specific [place] UA >1.030(H) 1.005 - 1.030 02/11/2015 10:56 PM [facility] pH UA 6.0 5.0 - 8.0 pH 02/11/2015 10:56 PM [facility] Protein UA Negative Negative 02/11/2015 10:56 PM [facility] Blood UA 3+(A) Negative 02/11/2015 10:56 PM [facility] Leukocyte UA 1+(A) Negative 02/11/2015 10:56 PM [facility] Nitrite UA Negative Negative 02/11/2015 10:56 PM [facility] Glucose UA Negative Negative 02/11/2015 10:56 PM [facility] Ketone UA Negative Negative 02/11/2015 10:56 PM [facility] Bilirubin UA Negative Negative 02/11/2015 10:56 PM [facility] Urobilinogen UA 1.0 0.1 - 1.0 EU/dL 02/11/2015 10:56 PM [facility] WBC UA Auto 5-10(A) 0-2, 2-5 # /hpf 02/11/2015 10:56 PM [facility] RBC UA Auto 50-100(A) 0-2, 2-5 # /hpf 02/11/2015 10:56 PM [facility] Epithelial Cell UA Auto 10-20(A) 0-2, 2-5 # /hpf 02/11/2015 10:56 PM [facility] Bacteria UA Auto 1+(A) None seen 02/11/2015 10:56 PM [facility] Hyaline Casts UA Auto 2-5(A) 0 - 2 #/lpf 02/11/2015 10:56 PM [facility] Reflex Status Culture to follow 02/11/2015 10:56 PM [facility] Urine URINE SPECIMEN OBTAINED BY CLEAN CATCH PROCEDURE / Unknown Collection / Unknown 02/11/2015 10:35 PM CDT 02/11/2015 10:41 PM T Jono Parra DO LAB - URINALYSI S ORDERABLES [facility] [address] [place] [address] * (ABNORMAL) COMPREHENSIVE METABOLIC PANEL (02/11/2015 10:34 PM CDT) Glucose 81 74 - 106 mg/dL 02/11/2015 10:58 PM CDT [facility] Sodium 140 136 - 145 mmol/L 02/11/2015 10:58 PM CDT [facility] Potassium 3.3(L) 3.5 - 5.1 mmol/L 02/11/2015 10:58 PM CDT [facility] Chloride 106 98 - 107 mmol/L 02/11/2015 10:58 PM CDT [facility] CO2 27 22 - 31 mmol/L 02/11/2015 10:58 PM CDT [facility] Calcium 8.4(L) 8.5 - 10.1 mg/dL 02/11/2015 10:58 PM CDT [facility] Anion Gap 7 5 - 15 mmol/L 02/11/2015 10:58 PM CDT [facility] BUN 12 7 - 21 mg/dL 02/11/2015 10:58 PM CDT [facility] Creatinine 0.64 0.50 - 1.30 mg/dL 02/11/2015 10:58 PM CDT [facility] eGFR by MDRD >60 >60 mL/min/1.7 3m2 02/11/2015 10:58 PM CDT [facility] eGFR by MDRD >60 >60 mL/min/1.7 3m2 02/11/2015 10:58 PM CDT [facility] Alkaline Phosphatase 57 38 - 126 U/L 02/11/2015 10:58 PM CDT [facility] ALT 21 12 - 78 U/L 02/11/2015 10:58 PM CDT [facility] AST 4(L) 5 - 40 U/L 02/11/2015 10:58 PM CDT [facility] Protein Total 7.3 6.4 - 8.2 gm/dL 02/11/2015 10:58 PM CDT [facility] Albumin 3.6 3.4 - 5.0 gm/dL 02/11/2015 10:58 PM CDT [facility] Bilirubin Total 0.3 0.2 - 1.0 mg/dL 02/11/2015 10:58 PM CDT [facility] Blood BLOOD SPECIMEN / Unknown 02/11/2015 10:34 PM CDT 02/11/2015 10:45 PM CDT Jono Parra DO LAB - CHEMISTRY ORDERABLES [facility] [address] [place] [address] * (ABNORMAL) CBC W AUTO DIFFERENTIAL (02/11/2015 10:34 PM CDT) WBC 7.4 4.4 - 10.7 x10^9/L 02/11/2015 10:43 PM CDT [facility] WBC Corrected x10^9/L 02/11/2015 10:43 PM CDT [facility] RBC 4.85 3.80 - 5.20 x10^12/L 02/11/2015 10:43 PM CDT [facility] Hemoglobin 13.3 12.0 - 15.6 gm/dL 02/11/2015 10:43 PM CDT [facility] Hematocrit 38.8 35.9 - 45.5 % 02/11/2015 10:43 PM CDT [facility] MCV 80.0(L) 80.7 - 98.3 fl 02/11/2015 10:43 PM CDT [facility] MCH 27.4 26.7 - 34.0 pg 02/11/2015 10:43 PM CDT [facility] MCHC 34.3 30.8 - 35.9 gm/dL 02/11/2015 10:43 PM CDT [facility] Platelet Count 318 153 - 416 x10^9/L 02/11/2015 10:43 PM CDT [facility] RDW-CV 15.5(H) 12.1 - 14.9 % 02/11/2015 10:43 PM CDT [facility] MPV 8.8(L) 9.4 - 12.9 fl 02/11/2015 10:43 PM CDT [facility] Neutrophils % 42.1(L) 44.0 - 73.0 % 02/11/2015 10:43 PM CDT [facility] Lymphocytes % 42.0 20.0 - 43.0 % 02/11/2015 10:43 PM CDT [facility] Monocytes % 10.7 5.0 - 13.0 % 02/11/2015 10:43 PM CDT [facility] Eosinophils % 4.2 0.0 - 6.0 % 02/11/2015 10:43 PM CDT [facility] Basophils % 0.7 0.0 - 2.0 % 02/11/2015 10:43 PM CDT [facility] Immature Granulocytes 0.3 0 - 1 % 02/11/2015 10:43 PM CDT [facility] Neutrophil Absolute 3.12 2.01 - 7.14 x10^9/L 02/11/2015 10:43 PM CDT [facility] Lymphocytes Absolute 3.11 1.07 - 3.94 x10^9/L 02/11/2015 10:43 PM CDT [facility] Monocytes Absolute 0.79 0.26 - 1.07 x10^9/L 02/11/2015 10:43 PM CDT [facility] Eosinophils Absolute 0.31 0 - 0.47 x10^9/L 02/11/2015 10:43 PM CDT [facility] Basophils Absolute 0.05 0 - 0.08 x10^9/L 02/11/2015 10:43 PM CDT [facility] Immature Granulocytes Absolute 0.02 0.00 - 0.06 x10^9/L 02/11/2015 10:43 PM CDT [facility] Blood BLOOD SPECIMEN / Unknown Venipuncture / Unknown 02/11/2015 10:34 PM CDT 02/11/2015 10:40 PM CDT Jono Parra DO LAB - HEMATOLOG Y ORDERABLES [facility] [address] [place] [address] documented in this encounter Visit [...]
--- OUTSIDE RECORDS SUMMARY | 2024-09-25 20:09 | XMS_ITS | Encounter Summary ---
Author Organization [facility] Address [address] [place] [address] Care Team Providers Care Corner Bead Operator Name Role Phone Unavailable Primary Care Provider Unavailabl e Reason for Visit * Reason Comments Epistaxis for 2 hrs this morni ng and is now having dizziness. Pt is 32 weeks Dizziness Encounter Details Date Type Department Care Team (Late st Contact Info) Description 07/15/2014 6:34 AM SHAMPOO PERSON - 07/15/2014 7:19 AM SHAMPOO PERSON Emergency ER at [facility] [address] [place] [address] Hammad Zuleta MD [address] [place] [address] Epistaxis Discharge Disposition: Home or Self Care [...] Comments Blood Pressure 108/70 07/15/2014 6:00 AM SHAMPOO PERSON Pulse 93 07/15/2014 6:00 AM SHAMPOO PERSON Temperature 36.9 ??C (98.5 ??F) 07/15/2014 6:00 AM CS T Respiratory Rate 16 07/15/2014 6:00 AM SHAMPOO PERSON Oxygen Saturation 100% 07/15/2014 6:00 AM SHAMPOO PERSON Inhaled Oxygen Concentration - - Weight 90.3 kg (199 lb) 07/15/2014 6:48 AM SHAMPOO PERSON Height 162.6 cm (5' 4.02 ) 07/15/2014 6:48 AM CS T Body Mass Index 34.14 07/15/2014 6:48 AM SHAMPOO PERSON documented in this encounter Functional Status Functional [...] Hammad Zuleta MD - 07/15/2014 7:11 AM SHAMPOO PERSON Nosebleed Nosebleeds can be caused by many [...] Document Reviewed: 07/26/2010 ExitCare?? Patient Information ??2013 [employer] POO PERSON documented in this encounter Medications at Time [...] a half. States she had dizziness too. POO PERSON * Hammad Zuleta MD - 07/15/2014 6:37 AM CST Provider contact with the patient: 07/15/2014 06:38 Jumana Rivers [id number] [facility] EMERGENCY DEPARTMENT History Chief Complaint Patient [...] and this is her second . PCP: [facility] Epistaxis The history is [...] have advised the patient to follow-up with: [facility] In 2 days Use [...] behalf of Dr. Zuleta 07/15/2014 7:12 AM POO PERSON documented in this encounter Plan of Treatment Not on file documented as of this encounter Visit Diagnoses Diagnosis Epistaxis documented in this encounter Active and Recently Administered Medications
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
--- OUTSIDE RECORDS SUMMARY | 2024-09-25 20:09 | XMS_ITS | Encounter Summary ---
Author Organization [facility] Address [address] [place] [address] Care Team Providers Care Recreation Facilities Supervisor Name Role Phone Unavailable Primary Care Provider Unavailabl e Reason for Visit * Reason Comments Pain Pelvic pt stated she has be en having pelvic pain for 2 weeks, pt believes she may have a yeast infection Encounter Details Date Type Department Care Team (Late st Contact Info) Description 09/04/2013 2:30 AM MANUFACTURING ENGINEER - 09/04/2013 3:58 AM MANUFACTURING ENGINEER Emergency ER at [facility] [address] [place] [address] Tristan Luz MD [address] [place] [phone] Vaginal yeast infection (Primary Dx) Discharge [...] Comments Blood Pressure 114/77 09/04/2013 3:47 AM MANUFACTURING ENGINEER Pulse 80 09/04/2013 3:47 AM MANUFACTURING ENGINEER Temperature 36.9 ??C (98.5 ??F) 09/04/2013 3:47 AM CS T Respiratory Rate 14 09/04/2013 3:47 AM MANUFACTURING ENGINEER Oxygen Saturation 100% 09/04/2013 3:47 AM MANUFACTURING ENGINEER Inhaled Oxygen Concentration - - Weight - - Height - - Body Mass Index - - documented in this encounter Discharge Instructions * Discharge Instructions* Tristan Luz MD - 09/04/2013 3:40 AM MANUFACTURING ENGINEER Candidal Vulvovaginitis Candidal vulvovaginitis is an infection [...] Document Reviewed: 11/20/2009 ExitCare?? Patient Information ??2013 [place] [employer]. FACTURING ENGINEER * Discharge Instructions* Document, Scanned - 09/06/2013 4:13 AM MANUFACTURING ENGINEER FACTURING ENGINEER documented in this encounter Medications at Time [...] verbalized understanding, agrees to follow upwith obgyn FACTURING ENGINEER * Ankita Alvarez RN - 09/04/2013 3:[address] Luz at bedside for pelvic exam, Assisted by Pavithra Gonzalez RN FACTURING ENGINEER * Marta Dooley RN - 09/04/2013 3:34 AM CST Performed pelvic exam with Dr. Luz, pt tolerated well. FACTURING ENGINEER * Marta Dooley RN - 09/04/2013 2:59 AM CST MD at bedside. FACTURING ENGINEER * Tristan Luz MD - 09/04/2013 2:59 AM CST Provider contact with the patient: 09/04/2013 02:59 Datreion Deven Rivers [id number] [facility] EMERGENCY DEPARTMENT History Chief Complaint Patient [...] Yellow, Dark Yellow Clarity UA Clear Specific [place] UA 1.024 1.005-1.030 pH UA 6.0 5.0-8.0 [...] Impression Final diagnoses: Vaginal yeast infection (Primary) FACTURING ENGINEER * Marta Dooley RN - 09/04/2013 2:40 [...] appears to be in no apparent distress. FACTURING ENGINEER documented in this encounter Miscellaneous Notes * Miscellaneous Scans - Document, Scanned - 09/05/2013 8:59 PM CST FACTURING ENGINEER documented in this encounter Plan of Treatment Not on file documented as of this encounter Procedures Procedure Name Priority Date/Time Associated Diagnosis Comments CHLAMYDIA + GC AMPLIFIED PROBE STAT 09/04/2013 3:53 AM MANUFACTURING ENGINEER URINALYSIS REFLEX MICROSCOPIC REFLEX CULTURE STAT 09/04/2013 2:49 AM MANUFACTURING ENGINEER HCG URINE QUALITATIVE - POINT OF CARE Routine 09/04/2013 2:40 AM MANUFACTURING ENGINEER documented in this encounter Results * CHLAMYDIA + GC AMPLIFIED PROBE (09/04/2013 3:53 AM MANUFACTURING ENGINEER) Chlamydia Amplified Probe Negative Negative 09/05/2013 11:02 AM MANUFACTURING ENGINEER [facility] GC Amplified Probe Negative Negative 09/05/2013 11:02 AM MANUFACTURING ENGINEER [facility] Microbiology ENTIRE ENDOCERVIX / Unknown 09/04/2013 3:53 AM MANUFACTURING ENGINEER 09/04/2013 3:56 AM MANUFACTURING ENGINEER Narrative [facility] - 09/05/2013 11:02 AM MANUFACTURING ENGINEER Results based on detection/no detection of ribosomal RNA by amplified method. Tristan Luz MD LAB - MICROBIOLOGY O RDERABLES [facility] [address] [place] [address], [facility] * URINALYSIS ROUTINE W/REFLEX TO CULTURE (09/04/2013 2:49 AM MANUFACTURING ENGINEER) Color UA Yellow Straw, Yellow, Dark Yellow 09/04/2013 3:08 AM MANUFACTURING ENGINEER [facility] Clarity UA Clear 09/04/2013 3:08 AM MANUFACTURING ENGINEER [facility] Specific [place] UA 1.024 1.005 - 1.030 09/04/2013 3:08 AM MANUFACTURING ENGINEER [facility] pH UA 6.0 5.0 - 8.0 pH 09/04/2013 3:08 AM MANUFACTURING ENGINEER [facility] Protein UA Negative Negative 09/04/2013 3:08 AM MANUFACTURING ENGINEER [facility] Blood UA Negative Negative 09/04/2013 3:08 AM MANUFACTURING ENGINEER [facility] Leukocyte UA Negative Negative 09/04/2013 3:08 AM MANUFACTURING ENGINEER [facility] Nitrite UA Negative Negative 09/04/2013 3:08 AM MANUFACTURING ENGINEER [facility] Glucose UA Negative Negative 09/04/2013 3:08 AM MANUFACTURING ENGINEER [facility] Ketone UA Negative Negative 09/04/2013 3:08 AM MANUFACTURING ENGINEER [facility] Bilirubin UA Negative Negative 09/04/2013 3:08 AM MANUFACTURING ENGINEER [facility] Urobilinogen UA 0.2 0.1 - 1.0 EU/dL 09/04/2013 3:08 AM MANUFACTURING ENGINEER [facility] Reflex Status Culture not indicated 09/04/2013 3:08 AM MANUFACTURING ENGINEER [facility] Urine URINE SPECIMEN OBTAINED BY CLEAN CATCH PROCEDURE / Unknown Collection / Unknown 09/04/2013 2:49 AM MANUFACTURING ENGINEER 09/04/2013 2:58 AM MANUFACTURING ENGINEER Tristan Luz MD LAB - URINALYSIS ORD ERABLES Performing Organization Address City/[facility] Co de Phone Number [facility] [address] [place] [address] * HCG URINE QUALITATIVE - POINT OF CARE (IP) (09/04/2013 2:40 AM MANUFACTURING ENGINEER) HCG Qual Urine Negative Negative [facility] POCT TESTING QC Verified yes Yes [facility] POC T TESTING Urine specimen (specimen) URINE / Unknown 09/04/2013 2:40 AM MANUFACTURING ENGINEER Tristan Luz MD LAB - POINT OF CARE ORDERABLES Performing Organization Address [facility] Co de Phone Number [facility] POCT TESTING [address] [place] [address] documented in this encounter Visit Diagnoses Diagnosis Vaginal yeast infection- Primary Candidiasis of vulva and vagina documented in this encounter Administered Medications Inactive Administered Medications - up to 3 most recent administrations Medication Order MAR Action Action Date Dose Rate Site fluconazole (DIFLUCAN) tablet 150 mg 150 mg, Oral, DAILY, First dose on 09/04/13 at 0345, Until Discontinued $ Given 09/04/2013 3:56 AM MANUFACTURING ENGINEER 150 mg documented in this encounter Active and Recently Administered Medications Times are shown in MANUFACTURING ENGINEER. Scheduled Medication Order 09/02/2013 09/03/2013 09/04/2013 fluconazole (DIFLUCAN) tablet 150 mg (CANCELED) 150 mg, Oral, DAILY, First dose on 09/04/13 at 0345, Until Discontinued 0356 ($ Given - Prov ider: Marta Dooley RN) documented in this encounter
--- OUTSIDE RECORDS SUMMARY | 2024-09-25 20:09 | XMS_ITS | Encounter Summary ---
Author Organization [facility] Address [address] [facility] [place] [address] Care Team Providers Care Customer Service Supervisor Name Role Phone Unavailable Primary Care Provider Unavailabl e Reason for Visit * Reason Comments Pain Flank my kidneys pain si nce this morning/hx kidney stones and seen here on 10/11 Encounter Details Date Type Department Care Team (Late st Contact Info) Description 10/20/2015 9:14 AM PATTERN CHAIN BUILDER - 10/20/2015 12:48 PM PATTERN CHAIN BUILDER Emergency ER at [facility] [address] [place] [id number] Valente Perez MD [address] [place] [phone] Jesus Ritter MD [address] [place] [phone] Left ureteral stone (Primary Dx); UGI [...] Comments Blood Pressure 114/77 10/20/2015 12:23 PM PATTERN CHAIN BUILDER Pulse 74 10/20/2015 12:43 PM PATTERN CHAIN BUILDER Temperature 36.7 ??C (98.1 ??F) 10/20/2015 12:[address] Respiratory Rate - - Oxygen Saturation 98% 10/20/2015 12:43 PM PATTERN CHAIN BUILDER Inhaled Oxygen Concentration - - Weight 87.5 kg (193 lb) 10/20/2015 9:14 AM PATTERN CHAIN BUILDER Height 162.6 cm (5' 4 ) 10/20/2015 9:14 AM PATTERN CHAIN BUILDER Body Mass Index 33.13 10/20/2015 9:14 AM PATTERN CHAIN BUILDER documented in this encounter Functional Status Functional [...] Jesus Ritter MD - 10/20/2015 11:56 AM PATTERN CHAIN BUILDER Images from the original note were not [...] 06/03/2006 Document Revised: 02/22/2013 Document Reviewed: 10/01/2012 [facility]?? Patient Information ??2014 MST. Kidney Stones Kidney stones (ureteral lithiasis) are [...] Document Reviewed: 06/21/2010 ExitCare?? Patient Information ??2013 MST. ERN CHAIN BUILDER documented in this encounter Medications at Time [...] with the patient: 10/20/2015 10:45 Jumana Rivers [id number] [facility] EMERGENCY DEPARTMENT History Chief Complaint [...] Yellow, Dark Yellow Clarity UA Cloudy Specific [place] UA >1.030 (H) 1.005-1.030 pH UA 5.5 [...] patient to follow-[place]: [place] [id number] [facility] [address] [facility] [phone] [place] [address] [facility] [address] [facility] [phone] Disposition: Discharged I have reviewed the information recorded by the scribe and agree with its accuracy and contents--Dr. ritter 10/20/2015 3:44 PM Transcribed by Alma Hair acting scribe on behalf of Dr. Stone MD. 10/20/2015 10:04 AM ERN CHAIN BUILDER * Pierce Bermeo RN - 10/20/2015 9:30 AM CST Pt c/o left flank pain starting approx 3 this am. Pt has hx of kidney stones. Pt states she was seen in this ed on Oct 11 for same problem and was dx with having a stone. Pt states she had an appt. With a urologist on and was told the stone had passed. ERN CHAIN BUILDER documented in this encounter Plan of Treatment Not on file documented as of this encounter Procedures Procedure Name Priority Date/Time Associated Diagnosis Comments CT ABDOMEN PELVIS WO CONTRAST STAT 10/20/2015 10:18 AM PATTERN CHAIN BUILDER HCG URINE QUALITATIVE - POINT OF CARE STAT 10/20/2015 9:51 AM PATTERN CHAIN BUILDER URINE MICROSCOPIC ONLY REFLEX TO CULTURE STAT 10/20/2015 9:37 AM PATTERN CHAIN BUILDER URINALYSIS REFLEX MICROSCOPIC REFLEX CULTURE STAT 10/20/2015 9:37 AM PATTERN CHAIN BUILDER CULTURE URINE STAT 10/20/2015 9:37 AM PATTERN CHAIN BUILDER documented in this encounter Results * CT RENAL STONE PROTOCOL (NO IV AND NO ORAL CONTRAST) (10/20/2015 10:18 AM PATTERN CHAIN BUILDER) Anatomical Region Laterality Modality Abdomen, Pelvis Computed Tomogra phy 10/20/2015 10:2 9 AM PATTERN CHAIN BUILDER Impressions 10/20/2015 10:36 AM PATTERN CHAIN BUILDER Stable left obstructive uropathy with tiny stone now in the distal left ureter Narrative 10/20/2015 10:36 [address] abdomen and pelvis ??without contrast Clinical: [...] POINT OF CARE (IP) (10/20/2015 9:51 AM PATTERN CHAIN BUILDER) HCG Qual Urine Negative Negative [facility] POCT TESTING QC Verified Yes Yes [facility] POC T TESTING Urine specimen (specimen) URINE / Unknown 10/20/2015 9:51 AM PATTERN CHAIN BUILDER Jesus Ritter MD LAB - POINT OF CARE ORDERABLES [facility] POCT TESTING [address] [phone] * CULTURE URINE (10/20/2015 9:37 AM PATTERN CHAIN BUILDER) Culture No Growth (<1,000 CFU/mL) [place] 10/21/2015 3:[address] [facility]CRO[facility] Urine URINE SPECIMEN OBTAINED BY CLEAN CATCH PROCEDURE / Unknown Collection / Unknown 10/20/2015 9:37 AM PATTERN CHAIN BUILDER 10/20/2015 9:43 AM [facility] Jesus Ritter MD LAB - MICROBIOLOGY ORDERABLES Performing Organization Address [facility]/ZIP Co de Phone Number [facility]CRO[facility] [address] [place] [id number] [phone] * (ABNORMAL) URINALYSIS MICROSCOPIC ONLY W/REFLEX CULTURE (10/20/2015 9:37 AM PATTERN CHAIN BUILDER) Epithelial Cell UA 5-10(A) 0-2, 2-5 # /hpf 10/20/2015 10:04 AM [facility] Hyaline Casts 0-2 0 - 2 # /lpf 10/20/2015 10:04 AM [facility] Urine URINE SPECIMEN OBTAINED BY CLEAN CATCH PROCEDURE / Unknown Collection / Unknown 10/20/2015 9:37 AM PATTERN CHAIN BUILDER 10/20/2015 9:43 AM PATTERN CHAIN BUILDER Narrative [facility] - 10/20/2015 10:04 AM [facility] Urine sample less that 1 mL. Microscopic exam performed on unconcentrated sample. Jesus Ritter MD LAB - URINALYSIS OR DERABLES Performing Organization Address City/[facility] Co de Phone Number [facility] [address] [place] [address] * (ABNORMAL) URINALYSIS ROUTINE W/REFLEX TO CULTURE (10/20/2015 9:37 AM PATTERN CHAIN BUILDER) Color UA Yellow Straw, Yellow, Dark Yellow 10/20/2015 10:02 AM [facility] Clarity UA Cloudy 10/20/2015 10:02 AM [facility] Specific [place] UA >1.030(H) 1.005 - 1.030 10/20/2015 10:02 AM [facility] pH UA 5.5 5.0 - 8.0 pH 10/20/2015 10:02 AM [facility] Protein UA Trace(A) Negative 10/20/2015 10:02 AM [facility] Blood UA Negative Negative 10/20/2015 10:02 AM [facility] Leukocyte UA 1+(A) Negative 10/20/2015 10:02 AM [facility] Nitrite UA Negative Negative 10/20/2015 10:02 AM [facility] Glucose UA Negative Negative 10/20/2015 10:02 AM [facility] Ketone UA Trace(A) Negative 10/20/2015 10:02 AM [facility] Bilirubin UA Negative Negative 10/20/2015 10:02 AM [facility] Urobilinogen UA 0.2 0.1 - 1.0 EU/dL 10/20/2015 10:02 AM [facility] WBC UA Auto 20-50(A) 0-2, 2-5 # /hpf 10/20/2015 10:02 AM [facility] RBC UA Auto 10-20(A) 0-2, 2-5 # /hpf 10/20/2015 10:02 AM [facility] Bacteria UA Auto 1+(A) None seen 10/20/2015 10:02 AM [facility] Hyaline Casts UA Auto Reflex to manual(A) 0 - 2 #/lpf 10/20/2015 10:02 AM [facility] Reflex Status Culture to follow 10/20/2015 10:02 AM [facility] Urine URINE SPECIMEN OBTAINED BY CLEAN CATCH PROCEDURE / Unknown Collection / Unknown 10/20/2015 9:37 AM PATTERN CHAIN BUILDER 10/20/2015 9:43 AM [facility] Jesus Ritter MD LAB - URINALYSIS OR DERABLES Performing Organization Address [facility] Co de Phone Number [facility] [address] [place], [place] [phone] documented in this encounter Visit Diagnoses Diagnosis [...] at 1348 $ Given 10/20/2015 9:43 AM PATTERN CHAIN BUILDER 50 mcg ketorolac (TORADOL) injection 30 mg 30 mg, Intravenous, NOW, 1 dose, On 10/20/15 at 0945 $ Given 10/20/2015 9:43 AM PATTERN CHAIN BUILDER 30 mg documented in this encounter Active and Recently Administered Medications Times are shown in PATTERN CHAIN BUILDER. Scheduled Medication Order 10/18/2015 10/19/2015 10/20/2015 ketorolac [...]
--- OUTSIDE RECORDS SUMMARY | 2024-09-25 20:09 | XMS_ITS | Encounter Summary ---
Author Organization [facility] Address [address] [place] [address] Care Team Providers Care Manager Chinese Name Role Phone Unavailable Primary Care Provider [...] 05/01/2016 5:45 PM CDT Emergency ER at [address] [phone] Jimi Samano MD [address] [place] [address] Emergency Department [place], [place] [phone] [place] [address] [place] [address] Complication of intrauterine device (IUD), [...] discomfort you are experiencing: ?? Only take qgdi-tta-sbrmufs or prescription medicines as directed by your [...] Document Reviewed: 05/03/2014 ExitCare?? Patient Information ??2015 [employer]. This information is not intended to replace [...] tests. HOME CARE INSTRUCTIONS ?? Only take iiqs-kku-[id number] or prescription medicines for pain, discomfort, or [...] Document Reviewed: 12/13/2012 ExitCare?? Patient Information ??2013 [employer]. documented in this encounter Medications at Time [...] MD - 05/01/2016 5:03 PM CDT R2 HARNESS WORKER Progress Note I spoke with Dr. Butler [...] schedule Ms. Rivers for an appointment in [facility] to replace her IUD. Amber Wilson [...] with the patient: 05/01/2016 16:11 Jumana Rivers [id number] [facility] EMERGENCY DEPARTMENT History Chief Complaint [...] the strings. She had it placed at [facility] HARNESS WORKER clinic. Female Genitourinary The primary symptoms include [...] discharge found. RN Rowena served as female director of strategic communications. Clotted blood present in vaginal vault. IUD [...] 51.2 44.0-73.0 % Lymph 33.1 20.0-43.0 % Furnas 11.9 5.0-13.0 % Eos 2.5 0.0-6.0 % Baso 0.9 0.0-2.0 % Immature Grans 0.4 0-1 % Neutro Abs 3.44 2.01-7.14 x10E9/L Lymph Abs 2.23 1.07-3.94 x10E9/L [place] Abs 0.80 0.26-1.07 x10E9/L Eosin Abs 0.17 [...] exam performed. RAZIA Guaman served as female director of strategic communications. 4:48 PM Paged HARNESS WORKER. 5:01 PM: I discussed with Dr. Wilson (HARNESS WORKER) about all pertinent aspects of the case [...] Saturation. I have discussed the case with HARNESS WORKER (Dr. Leyva). Malpositioned IUD. Discussed with research leader. Follow up arranged for removal. No Vaginal [...] have advised the patient to follow-up with: [facility] [address] [place] [address] Call in 1 day If symptoms worsen [...] intrauterine device (IUD), unspecified complication, initial encounter ([facility]) CBC W AUTO DIFFERENTIAL STAT 05/01/2016 1:00 PM CDT COMPREHENSIVE METABOLIC PANEL STAT 05/01/2016 1:00 PM CDT documented in this encounter Results * TRICHOMONAS RAPID TEST (05/01/2016 4:47 PM CDT) Trichomonas Rapid Test Negative Negative 05/01/2016 5:26 PM CDT [facility] Microbiology ENTIRE VAGINA / Unknown 05/01/2016 4:47 PM CDT 05/01/2016 4:56 PM CDT Reg Butler DO LAB - MICROBIOLOGY O RDERABLES Performing Organization Address [facility]/ZIP Co de Phone Number [facility] [address] [place] [address] * CHLAMYDIA + GC AMPLIFIED PROBE (05/01/2016 4:47 PM CDT) Chlamydia Amplified Probe Negative Negative 05/02/2016 11:22 AM CDT [facility] GC Amplified Probe Negative Negative 05/02/2016 11:22 AM CDT [facility] Microbiology ENTIRE ENDOCERVIX / Unknown Collection / Unknown 05/01/2016 4:47 PM CDT 05/01/2016 4:56 PM CDT Narrative [facility] - 05/02/2016 11:22 AM CDT Results based on detection/no detection of ribosomal RNA by amplified method. Reg Butler DO LAB - MICROBIOLOGY O RDERABLES Performing Organization Address [facility] Co de Phone Number [facility] [address] [phone] * US PELVIS W/TRANSVAG AND DOPPLER (05/01/2016 [...] - 5.0 gm/dL 05/01/2016 1:24 PM CDT [facility] Bilirubin Total 0.3 0.2 - 1.0 mg/dL 05/01/2016 1:24 PM CDT [facility] eGFR by MDRD >60 >60 mL/min/1.7 3m2 05/01/2016 1:24 PM CDT [facility] eGFR by MDRD >60 >60 mL/min/1.7 3m2 05/01/2016 1:24 PM CDT [facility] Blood BLOOD SPECIMEN / Unknown Venipuncture / Unknown 05/01/2016 1:00 PM CDT 05/01/2016 1:06 PM CDT Darlene TEJEDA LAB - CHEMISTRY JOANNA YUNG [facility] Organization Address City/State/ZIP Co de Phone Number [facility] [address] [place] [phone] * (ABNORMAL) CBC W AUTO DIFFERENTIAL (05/01/2016 1:00 PM CDT) WBC 6.7 4.4 - 10.7 x10E9/L 05/01/2016 1:09 PM CDT [facility] WBC Corrected x10E9/L 05/01/2016 1:09 PM CDT [facility] RBC 4.13 3.80 - 5.20 x10E12/L 05/01/2016 1:09 PM CDT [facility] Hemoglobin 10.4(L) 12.0 - 15.6 gm/dL 05/01/2016 1:09 PM CDT [facility] Hematocrit 31.8(L) 35.9 - 45.5 % 05/01/2016 1:09 PM CDT [facility] MCV 77.0(L) 80.7 - 98.3 fl 05/01/2016 1:09 PM CDT [facility] MCH 25.2(L) 26.7 - 34.0 pg 05/01/2016 1:09 PM CDT [facility] MCHC 32.7 30.8 - 35.9 gm/dL 05/01/2016 1:09 PM CDT [facility] Platelet Count 367 153 - 416 x10E9/L 05/01/2016 1:09 PM [facility] RDW-CV 18.2(H) 12.1 - 14.9 % 05/01/2016 1:09 PM [facility] MPV 9.3(L) 9.4 - 12.9 fl 05/01/2016 1:09 PM [facility] Neutrophils % 51.2 44.0 - 73.0 % 05/01/2016 1:09 PM [facility] Lymphocytes % 33.1 20.0 - 43.0 % 05/01/2016 1:09 PM [facility] Monocytes % 11.9 5.0 - 13.0 % 05/01/2016 1:09 PM [facility] Eosinophils % 2.5 0.0 - 6.0 % 05/01/2016 1:09 PM [facility] Basophils % 0.9 0.0 - 2.0 % 05/01/2016 1:09 PM [facility] Immature Granulocytes 0.4 0 - 1 % 05/01/2016 1:09 PM [facility] Neutrophil Absolute 3.44 2.01 - 7.14 x10E9/L 05/01/2016 1:09 PM [facility] Lymphocytes Absolute 2.23 1.07 - 3.94 x10E9/L 05/01/2016 1:09 PM [facility] Monocytes Absolute 0.80 0.26 - 1.07 x10E9/L 05/01/2016 1:09 PM [facility] Eosinophils Absolute 0.17 0 - 0.47 x10E9/L 05/01/2016 1:09 PM [facility] Basophils Absolute 0.06 0 - 0.08 x10E9/L 05/01/2016 1:09 PM [facility] Immature Granulocytes Absolute 0.03 0.00 - 0.06 x10E9/L 05/01/2016 1:09 PM [facility] nRBC Auto 0 /100 WBC 05/01/2016 1:09 PM [facility] Blood BLOOD SPECIMEN / Unknown 05/01/2016 1:00 PM CDT 05/01/2016 1:06 PM CDT Darlene TEJEDA LAB - HEMATOLOGY ORD ERABLES [facility] [address] [place] [address] documented in this encounter Visit Diagnoses Diagnosis Complication of intrauterine device (IUD), unspecified complication, initial encounter (HCC)- Primary Pelvic pain in female Unspecified symptom associated with female genital organs documented in this encounter
--- OUTSIDE RECORDS SUMMARY | 2024-09-25 20:09 | XMS_ITS | Encounter Summary ---
Author Organization [facility] Address [address] [place] [address] Care Team Providers Care Nuclear Supervising Operator Name Role Phone Unavailable Primary Care Provider Unavailabl e Reason for Visit * Reason Comments Pain Urinary UTI symptoms with va g discharge and odor for one week Encounter Details Date Type Department Care Team (Late st Contact Info) Description 09/30/2015 11:18 AM CASER - 09/30/2015 1:36 PM CASER Emergency ER at [facility] [address] [place] [address] [id number] Sterling Licona MD THE [address] [place] [address] Vaginal discharge; Screen for STD (sexually transmitted [...] Comments Blood Pressure 135/83 09/30/2015 11:19 AM CASER Pulse 103 09/30/2015 11:19 AM CASER Temperature 37.1 ??C (98.7 ??F) 09/30/2015 11:[address] Respiratory Rate 14 09/30/2015 11:19 AM CASER Oxygen Saturation 100% 09/30/2015 11:19 AM CASER Inhaled Oxygen Concentration - - Weight - [...] Discharge Instructions * Discharge Instructions* Mariah Casas, MANAGER DIVERSITY-FARMWORKER FIELD CROP - 09/30/2015 1:11 PM CASER Images from the original note were not [...] 15 years. 3. Have at least a 33-[id number] history of smoking. A pack year is [...] Document Reviewed: 07/26/2014 ExitCare?? Patient Information ??2015 [employer]. This information is not intended to replace [...] Centers for Disease Control and Prevention: www.cdc.gov/std [employer] ([employer]): www.ashastd.org Document Released: 08/24/2006 Document Revised: 11/15/2012 Document Reviewed: 02/14/2010 ExitCare?? Patient Information ??2013 [employer]. R documented in this encounter Medications at Time [...] PM CST Pt discharged per Mariah Casas TRANSPORTATION MAINTENANCE WORKER R * Margaux Rojas RN - 09/30/2015 11:47 AM CST Pt states white vaginal discharge x 1 week, no itching denies urinary pain or symptoms. 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 Patient has regular menstrual cycles. History of [...] Yellow, Dark Yellow Clarity UA Cloudy Specific [place] UA 1.023 1.005-1.030 pH UA 7.0 5.0-8.0 [...] the patient to follow-up with: [facility] COMMUNITY QUALITY CLOTH TESTER [address] [facility] [id number] In 1 day As needed Disposition: Discharged I have reviewed the information recorded by the scribe and agree with its accuracy and contents--Carter Casas 09/30/2015 12:00 PM Transcribed by Loyda Gibson acting scribe on behalf of TRANSPORTATION MAINTENANCE WORKER Mariah Casas 09/30/2015 11:29 AM R documented in this encounter Plan of Treatment Not on file documented as of this encounter Procedures Procedure Name Priority Date/Time Associated Diagnosis Comments TRICHOMONAS RAPID TEST STAT 09/30/2015 12:50 PM CASER CHLAMYDIA + GC AMPLIFIED PROBE STAT 09/30/2015 12:50 PM CASER HCG URINE QUALITATIVE - POINT OF CARE Routine 09/30/2015 11:56 AM CASER URINALYSIS REFLEX MICROSCOPIC REFLEX CULTURE STAT 09/30/2015 11:43 AM CASER CULTURE URINE STAT 09/30/2015 11:43 AM CASER documented in this encounter Results * TRICHOMONAS RAPID TEST (09/30/2015 12:50 PM CASER) Trichomonas Rapid Test Negative Negative 09/30/2015 1:09 PM CASER [facility] Microbiology ENTIRE VAGINA / Unknown 09/30/2015 12:50 PM CASER 09/30/2015 12:56 PM CASER Mariah Casas MANAGER [employer]WORKER [employer]OP LAB - MICROBIOL OGY ORDERABLES [facility] [address] [place], [place] [id number] * CHLAMYDIA + GC AMPLIFIED PROBE (09/30/2015 12:50 PM CASER) Chlamydia Amplified Probe Negative Negative 10/01/2015 12:40 PM CASER [facility] GC Amplified Probe Negative Negative 10/01/2015 12:40 PM CASER [facility] Microbiology ENTIRE ENDOCERVIX / Unknown 09/30/2015 12:50 PM CASER 09/30/2015 12:56 PM CASER Narrative [facility] - 10/01/2015 12:40 PM CASER Results based on detection/no detection of ribosomal RNA by amplified method. Mariah SAHU LAB - MICROBIOL OGY ORDERABLES Performing Organization Address City/[facility]/ZIP Co de Phone Number [facility] [address] [place] [address], [facility] [phone] * HCG URINE QUALITATIVE - POINT OF CARE (IP) (09/30/2015 11:56 AM CASER) Pathologist [facility] HCG Qual Urine Negative Negative [facility] POCT TEST[facility] QC Verified Yes Yes [facility] POC T TESTING Urine specimen (specimen) URINE / Unknown 09/30/2015 11:56 AM CASER [facility] - POINT OF CARE ORDERABLES Performing Organization Address [facility] Co de Phone Number [facility] POCT TESTING [address] [place] [address], [facility] [phone] * CULTURE URINE (09/30/2015 11:43 AM CASER) Pathologist [facility] Culture More than 2 organisms seen at >=10,000 CFU/mL. Recollect if clinically indicated. CHRYSTAL 10/01/2015 11:45 AM CASER [facility] Urine URINE SPECIMEN OBTAINED BY CLEAN CATCH PROCEDURE / Unknown 09/30/2015 11:43 AM CASER 09/30/2015 11:46 AM CASER [facility]iah [facility]as [facility] - MICROBIOL OGY ORDERABLES Performing Organization Address City/[facility] Co de Phone Number [facility] [address] [place] [address], [facility] [phone] * (ABNORMAL) URINALYSIS ROUTINE W/REFLEX TO CULTURE (09/30/2015 11:43 AM CASER) Color UA Yellow Straw, Yellow, Dark Yellow 09/30/2015 11:53 AM [facility] Clarity UA Cloudy 09/30/2015 11:53 AM [facility] Specific [place] UA 1.023 1.005 - 1.030 09/30/2015 11:53 AM [facility] pH UA 7.0 5.0 - 8.0 pH 09/30/2015 11:53 AM [facility] Protein UA Negative Negative 09/30/2015 11:53 AM [facility] Blood UA Negative Negative 09/30/2015 11:53 AM [facility] Leukocyte UA 1+(A) Negative 09/30/2015 11:53 AM [facility] Nitrite UA Negative Negative 09/30/2015 11:53 AM [facility] Glucose UA Negative Negative 09/30/2015 11:53 AM [facility] Ketone UA Negative Negative 09/30/2015 11:53 AM [facility] Bilirubin UA Negative Negative 09/30/2015 11:53 AM [facility] Urobilinogen UA 1.0 0.1 - 1.0 EU/dL 09/30/2015 11:53 AM [facility] WBC UA Auto 2-5 0-2, 2-5 # /hpf 09/30/2015 11:53 AM [facility] RBC UA Auto 2-5 0-2, 2-5 # /hpf 09/30/2015 11:53 AM [facility] Epithelial Cell UA Auto 5-10(A) 0-2, 2-5 # /hpf 09/30/2015 11:53 AM [facility] Hyaline Casts UA Auto 2-5(A) 0 - 2 #/lpf 09/30/2015 11:53 AM [facility] Reflex Status Culture to follow 09/30/2015 11:53 AM [facility] Urine URINE SPECIMEN OBTAINED BY CLEAN CATCH PROCEDURE / Unknown 09/30/2015 11:43 AM [facility] 09/30/2015 11:46 AM [facility] Mariah Casas MANAGER [employer]ERS[employer]ARMWORKER FI[employer] CROP LAB - URINALYSI S ORDERABLES [facility] [address] [place], [place] [id number] documented in this encounter Visit Diagnoses Diagnosis [...] or milk. $ Given 09/30/2015 1:27 PM CASER 500 mg documented in this encounter Active and Recently Administered Medications Times are shown in CASER. Scheduled Medication Order 09/28/2015 09/29/2015 09/30/2015 metroNIDAZOLE (FLAGYL) tablet 500 mg (COMPLETED) 500 mg, Oral, NOW, 1 dose, On 09/30/15 at 1315, May take with food or milk. 1327 ($ Given - Prov ider: Margaux Rojas RN) documented in this encounter
--- OUTSIDE RECORDS SUMMARY | 2024-09-25 20:09 | XMS_ITS | Encounter Summary ---
Author Organization [facility] Address [address] [place] [address] Care Team Providers Care Cloth Doffer Name Role Phone Unavailable Primary Care Provider Unavailabl e Reason for Visit * Reason Comments Headache * Auth/Cert - Closed Specialty Diagnoses / Procedures Referred By Norm benjamin Referred To Contact Obstetrics and Gynecology [address] [place] [id number] Referral ID Status Reason Start Date Expiration Date Visits Re quested Visits Authorized [id number] Closed 04/04/2014 10/01/2014 1 Encounter Details Date Type Department Care Team (Latest Contact Info) Description 04/03/2014 7:50 PM CDT - 04/03/2014 10:50 PM CDT Hospital Encounter [address] [place], [place] [id number] Sahra Flowers MD [address] [place] [address] [place] [id number] Discharge Disposition: Home or Self Care Social [...] diarrhea. Important Telephone Number: [facility] [phone] documented in this encounter Medications at Time [...] 09/07/14 care: is with Dr. Bucio at [place] Patient's is complicated by: There are no [...] (87.544 kg) non-stress test (lombardi): not done [place]: no ctx. Physical Exam: General: alert, cooperative, [...] reassuring 4. F/u w/ Dr. Bucio at [place] as scheduled 5. Dispo: d/c to home [...] Natalie Wilkerson MD 04/04/2014 6:40 AM [facility] outside upholsterer Attending I discussed this case with the [...] - 106 mg/dL 04/04/2014 2:12 AM CDT [facility] Blood BLOOD SPECIMEN / Unknown 04/03/2014 10:33 PM CDT 04/04/2014 2:12 AM CDT Sahra Flowers MD LAB - POINT OF CARE ORDERABLES [facility] [address] [place] [address] * CULTURE URINE (04/03/2014 9:12 PM CDT) Culture <10,000 CFU/mL normal urogenital marco CHRYSTAL 04/06/2014 11:22 AM CDT [facility] Urine URINE SPECIMEN OBTAINED BY CLEAN CATCH PROCEDURE / Unknown Collection / Unknown 04/03/2014 9:12 PM CDT 04/03/2014 9:14 PM CDT Susi Diaz MD LAB - MICROBIOLOGY O RDERABLES [facility] [address] [place] [address], [facility] * (ABNORMAL) URINALYSIS ROUTINE W/REFLEX TO CULTURE (04/03/2014 9:12 PM CDT) Color UA Yellow Straw, Yellow, Dark Yellow 04/03/2014 9:25 PM CDT [facility] Clarity UA Clear 04/03/2014 9:25 PM CDT [facility] Specific [place] UA 1.023 1.005 - 1.030 04/03/2014 9:25 PM CDT [facility] pH UA 5.5 5.0 - 8.0 pH 04/03/2014 9:25 PM CDT [facility] Protein UA Negative Negative 04/03/2014 9:25 PM CDT [facility] Blood UA Negative Negative 04/03/2014 9:25 PM CDT [facility] Leukocyte UA 1+(A) Negative 04/03/2014 9:25 PM CDT [facility] Nitrite UA Negative Negative 04/03/2014 9:25 PM CDT [facility] Glucose UA Negative Negative 04/03/2014 9:25 PM CDT [facility] Ketone UA 3+(A) Negative 04/03/2014 9:25 PM CDT [facility] Bilirubin UA Negative Negative 04/03/2014 9:25 PM CDT [facility] Urobilinogen UA 0.2 0.1 - 1.0 EU/dL 04/03/2014 9:25 PM CDT [facility] WBC UA Auto 5-10(A) 0-2, 2-5 #/hpf 04/03/2014 9:25 PM CDT [facility] RBC UA Auto 2-5 0-2, 2-5 #/hpf 04/03/2014 9:25 PM CDT [facility] Epithelial Cell UA Auto 2-5 0-2, 2-5 #/hpf 04/03/2014 9:25 PM CDT [facility] Hyaline Casts UA Auto 2-5(A) 0 - 2 #/lpf 04/03/2014 9:25 PM CDT [facility] Reflex Status Culture to follow 04/03/2014 9:25 PM CDT [facility] Urine URINE SPECIMEN OBTAINED BY CLEAN CATCH PROCEDURE / Unknown Collection / Unknown 04/03/2014 9:12 PM CDT 04/03/2014 9:14 PM CDT Susi Diaz MD LAB - URINALYSIS ORD ERABLES [facility] [address] [place] [address] * GLUCOSE PROTEIN KETONE URINE - POINT OF CAR (04/03/2014 9:06 PM CDT) Glucose UA negative Negative [facility] Protein UA negative Negative [facility] Ketone UA Large Negative [facility] TEST[facility] QC Verified [facility] POC T TESTING Urine specimen (specimen) URINE / Unknown 04/03/2014 9:06 PM CDT Susi Diaz MD LAB - POINT OF CARE ORDERABLES Performing Organization Address City/[facility] Co de Phone Number [facility] POCT TESTING [address] [place] [address], [facility] documented in this encounter Visit Diagnoses Diagnosis [...]
--- OUTSIDE RECORDS SUMMARY | 2024-09-25 20:09 | XMS_ITS | Encounter Summary ---
Author Organization [facility] Address [address] [place] [address] Care Team Providers Care Judge Clerk Name Role Phone Unavailable Primary Care Provider Unavailabl e Reason for Visit * Reason Comments Pain Abdominal AP with hematuria th is morning Blood in urine Encounter Details Date Type Department Care Team (Late st Contact Info) Description 10/11/2015 7:31 PM PILL MACHINE OPERATOR - 10/12/2015 12:19 AM PILL MACHINE OPERATOR Emergency ER at [facility] [address] [place] [address] [place] [address] [place] [address] [place] [id number] Kidney stone (Primary Dx); Abdominal pain, [...] Comments Blood Pressure 110/74 10/12/2015 12:11 AM PILL MACHINE OPERATOR Pulse 78 10/12/2015 12:11 AM PILL MACHINE OPERATOR Temperature 36.7 ??C (98 ??F) 10/12/2015 12:11 AM PILL MACHINE OPERATOR Respiratory Rate 18 10/12/2015 12:11 AM PILL MACHINE OPERATOR Oxygen Saturation 100% 10/12/2015 12:11 AM PILL MACHINE OPERATOR Inhaled Oxygen Concentration - - Weight 88 kg (194 lb) 10/11/2015 3:07 PM PILL MACHINE OPERATOR Height 162.6 cm (5' 4.02 ) 10/11/2015 3:07 PM CS T Body Mass Index 33.28 10/11/2015 3:07 PM PILL MACHINE OPERATOR documented in this encounter Functional [...] Clarke Morris MD - 10/12/2015 12:00 AM PILL MACHINE OPERATOR Images from the original note [...] prescribed medicine as directed. ?? Only take [id number] or prescription medicines for pain, discomfort, or [...] Document Reviewed: 07/22/2010 ExitCare?? Patient Information ??2013 Melodigram. Kidney Stones Kidney stones (ureteral lithiasis) are [...] stone has actually passed. ?? Only take [id number] or prescription medicines for pain, discomfort, or [...] Document Reviewed: 12/20/2010 ExitCare?? Patient Information ??2013 Melodigram. MACHINE OPERATOR documented in this encounter Medications [...] dose here. Patient ambulatory out of ED. MACHINE OPERATOR * Lesly Garcia RN - 10/11/2015 11:20 PM CST Patient to CT via stretcher with electronic service technician. GET * Lesly Garcia RN - [...] family at bedside. Will continue to monitor. MACHINE OPERATOR * Clarke Morris MD - 10/11/2015 7:42 PM CST Provider contact with the patient: 10/11/2015 19:42 Jumana Rivers [id number] [facility] EMERGENCY DEPARTMENT History Chief Complaint Patient [...] 60.2 44.0-73.0 % Lymph 27.0 20.0-43.0 % [place] 9.4 5.0-13.0 % Eos 2.3 0.0-6.0 % Baso 0.8 0.0-2.0 % Immature Grans 0.3 0-1 % Neutro Abs 4.73 2.01-7.14 x10^9/L Lymph Abs 2.12 1.07-3.94 x10^9/L [place] Abs 0.74 0.26-1.07 x10^9/L Eosin Abs 0.18 [...] Yellow, Dark Yellow Clarity UA Cloudy Specific [place] UA 1.023 1.005-1.030 pH UA 6.0 5.0-8.0 [...] the uterus/cervix. Suggest correlation with ultrasound and NUMERICAL CONTROL MACHINE MACHINIST followup. No gross adnexal masses seen by [...] or free air. To TALK to Radiologist [phone] or [phone] Pierre Rhodes M.D. Electronically Signed Progress Notes [...] patient to follow-[place] with: [place] [address] [facility] 205 [facility] [address] Schedule an appointment as soon as possible for a visit in 2 days [facility] [address] [place] [address] Schedule an appointment as soon as possible for a visit in 2 days [facility] [address] [facility] [phone] Call in 1 day Disposition: Discharged I have reviewed the information recorded by the scribe and agree with its accuracy and contents--Dr. Morris 10/12/2015 12:41 AM Transcribed by Berry Shields acting scribe on behalf of Dr. Morris 10/11/2015 7:47 PM MACHINE OPERATOR documented in this encounter Plan of Treatment Not on file documented as of this encounter Procedures Procedure Name Priority Date/Time Associated Diagnosis Comments CT ABDOMEN PELVIS W CONTRAST STAT 10/11/2015 11:40 PM PILL MACHINE OPERATOR Abdominal pain, generalized HCG URINE QUALITATIVE - POINT OF CARE STAT 10/11/2015 8:24 PM PILL MACHINE OPERATOR URINALYSIS REFLEX MICROSCOPIC REFLEX CULTURE STAT 10/11/2015 8:10 PM PILL MACHINE OPERATOR CULTURE URINE STAT 10/11/2015 8:10 PM PILL MACHINE OPERATOR CBC W AUTO DIFFERENTIAL STAT 10/11/2015 3:20 PM PILL MACHINE OPERATOR COMPREHENSIVE METABOLIC PANEL STAT 10/11/2015 3:20 PM PILL MACHINE OPERATOR HCG BETA BLOOD QUANTITATIVE Add on 10/11/2015 3:20 PM PILL MACHINE OPERATOR LIPASE BLOOD Add on 10/11/2015 3:20 PM PILL MACHINE OPERATOR documented in this encounter Results * CT ABDOMEN AND PELVIS WITH IV CONTRAST (10/11/2015 11:40 PM PILL MACHINE OPERATOR) Anatomical Region Laterality Modality Abdomen, Pelvis Computed Tomogra phy 10/12/2015 6:35 AM PILL MACHINE OPERATOR Impressions 10/12/2015 6:45 AM PILL MACHINE OPERATOR 1. 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 2. Intrauterine contraceptive device within the lower uterine segment and cervix. Narrative 10/12/2015 6:45 AM PILL MACHINE OPERATOR EXAMINATION: Computed Tomography (CT) of the abdomen [...] POINT OF CARE (IP) (10/11/2015 8:24 PM PILL MACHINE OPERATOR) HCG Qual Urine Negative Negative [facility] POCT TESTING QC Verified Yes Yes [facility] POC T TESTING Urine specimen (specimen) URINE / Unknown 10/11/2015 8:24 PM PILL MACHINE OPERATOR Clarke Morris MD LAB - POINT OF CARE ORDERABLES [facility] POCT TESTING [address] [place], [place] [id number] [place] [address] * CULTURE URINE (10/11/2015 8:10 PM PILL MACHINE OPERATOR) Pathologist [facility] Culture 10,000-50,000 CFU/mL urogenital marco CHRYSTAL 10/13/2015 4:12 AM PILL MACHINE OPERATOR [facility] MICROBIOLOG[facility] Urine URINE SPECIMEN OBTAINED BY CLEAN CATCH PROCEDURE / Unknown 10/11/2015 8:10 PM PILL MACHINE OPERATOR 10/11/2015 8:15 PM PILL MACHINE OPERATOR Clarke Morris MD LAB - MICROBIOLOGY O RDERABLES [facility]CRO[facility] [address] [phone] * (ABNORMAL) URINALYSIS ROUTINE W/REFLEX TO CULTURE (10/11/2015 8:10 PM PILL MACHINE OPERATOR) Color UA Yellow Straw, Yellow, Dark Yellow 10/11/2015 8:22 PM PILL MACHINE OPERATOR [facility] Clarity UA Cloudy 10/11/2015 8:22 PM PILL MACHINE OPERATOR [facility] Specific [place] UA 1.023 1.005 - 1.030 10/11/2015 8:22 PM PILL MACHINE OPERATOR [facility] pH UA 6.0 5.0 - 8.0 pH 10/11/2015 8:22 PM PILL MACHINE OPERATOR [facility] Protein UA Negative Negative 10/11/2015 8:22 PM PILL MACHINE OPERATOR [facility] Blood UA 3+(A) Negative 10/11/2015 8:22 PM PILL MACHINE OPERATOR [facility] Leukocyte UA 1+(A) Negative 10/11/2015 8:22 PM PILL MACHINE OPERATOR [facility] Nitrite UA Negative Negative 10/11/2015 8:22 PM [facility] Glucose UA Negative Negative 10/11/2015 8:22 PM [facility] Ketone UA Negative Negative 10/11/2015 8:22 PM [facility] Bilirubin UA Negative Negative 10/11/2015 8:22 PM [facility] Urobilinogen UA 0.2 0.1 - 1.0 EU/dL 10/11/2015 8:22 PM [facility] WBC UA Auto 5-10(A) 0-2, 2-5 # /hpf 10/11/2015 8:22 PM [facility] RBC UA Auto >100(A) 0-2, 2-5 # /hpf 10/11/2015 8:22 PM [facility] Epithelial Cell UA Auto 0-2 0-2, 2-5 # /hpf 10/11/2015 8:22 PM [facility] Reflex Status Culture to follow 10/11/2015 8:22 PM [facility] Urine URINE SPECIMEN OBTAINED BY CLEAN CATCH PROCEDURE / Unknown 10/11/2015 8:10 PM PILL MACHINE OPERATOR 10/11/2015 8:15 PM PILL MACHINE OPERATOR Clarke Morris MD LAB - URINALYSIS ORD ERABLES Performing Organization Address City/State/[facility] Co de Phone Number [facility] [address] [place] [address] * HCG BETA BLOOD QUANTITATIVE (10/11/2015 3:20 PM PILL MACHINE OPERATOR) hCG Quantitative <1 mIU/mL 10/11/2015 8:21 PM [facility] Blood BLOOD SPECIMEN / Unknown Venipuncture / Unknown 10/11/2015 3:20 PM PILL MACHINE OPERATOR 10/11/2015 8:06 PM PILL MACHINE OPERATOR Narrative [facility] - 10/11/2015 8:21 PM PILL MACHINE OPERATOR ? hCG Reference Range, mIU/mL: ? Males [...] Morris MD LAB - CHEMISTRY JOANNA YUNG [facility] [address] [phone] * LIPASE BLOOD (10/11/2015 3:20 PM PILL MACHINE OPERATOR) Lipase 151 10 - 220 U/L 10/11/2015 8:21 PM [facility] Blood BLOOD SPECIMEN / Unknown Venipuncture / Unknown 10/11/2015 3:20 PM PILL MACHINE OPERATOR 10/11/2015 8:06 PM PILL MACHINE OPERATOR Clarke Morris MD LAB - CHEMISTRY JOANNA YUNG [facility] [address] [place] [address] * (ABNORMAL) COMPREHENSIVE METABOLIC PANEL (10/11/2015 3:20 PM PILL MACHINE OPERATOR) Pathologist [facility] Glucose 86 74 - 106 mg/dL 10/11/2015 3:40 PM [facility] Sodium 141 136 - 145 mmol/L 10/11/2015 3:40 PM [facility] Potassium 3.9 3.5 - 5.1 mmol/L 10/11/2015 3:40 PM [facility] Chloride 108(H) 98 - 107 mmol/L 10/11/2015 3:40 PM [facility] CO2 26 22 - 31 mmol/L 10/11/2015 3:40 PM [facility] Calcium 9.2 8.5 - 10.1 mg/dL 10/11/2015 3:40 PM [facility] Anion Gap 7 5 - 20 mmol/L 10/11/2015 3:40 PM [facility] BUN 9 7 - 21 mg/dL 10/11/2015 3:40 PM [facility] Creatinine 0.55 0.50 - 1.30 mg/dL 10/11/2015 3:40 PM [facility] Alkaline Phosphatase 72 38 - 126 U/L 10/11/2015 3:40 PM [facility] ALT 16 12 - 78 U/L 10/11/2015 3:40 PM [facility] AST 9 5 - 40 U/L 10/11/2015 3:40 PM [facility] Protein Total 7.4 6.4 - 8.2 gm/dL 10/11/2015 3:40 PM [facility] Albumin 3.6 3.4 - 5.0 gm/dL 10/11/2015 3:40 PM [facility] Bilirubin Total 0.4 0.2 - 1.0 mg/dL 10/11/2015 3:40 PM PILL MACHINE OPERATOR [facility] eGFR by MDRD >60 >60 mL/min/1.7 3m2 10/11/2015 3:40 PM [facility] eGFR by MDRD >60 >60 mL/min/1.7 3m2 10/11/2015 3:40 PM [facility] Blood BLOOD SPECIMEN / Unknown 10/11/2015 3:20 PM PILL MACHINE OPERATOR 10/11/2015 3:23 PM PILL MACHINE OPERATOR Clarke Morris MD LAB - CHEMISTRY JOANNA YUNG [facility] [address] [place], [place] [id number] * (ABNORMAL) CBC W AUTO DIFFERENTIAL (10/11/2015 3:20 PM PILL MACHINE OPERATOR) WBC 7.9 4.4 - 10.7 x10^9/L 10/11/2015 3:25 PM [facility] WBC Corrected x10^9/L 10/11/2015 3:25 PM [facility] RBC 4.42 3.80 - 5.20 x10^12/L 10/11/2015 3:25 PM [facility] Hemoglobin 11.9(L) 12.0 - 15.6 gm/dL 10/11/2015 3:25 PM [facility] Hematocrit 35.7(L) 35.9 - 45.5 % 10/11/2015 3:25 PM [facility] MCV 80.8 80.7 - 98.3 fl 10/11/2015 3:25 PM [facility] MCH 26.9 26.7 - 34.0 pg 10/11/2015 3:25 PM [facility] MCHC 33.3 30.8 - 35.9 gm/dL 10/11/2015 3:25 PM [facility] Platelet Count 399 153 - 416 x10^9/L 10/11/2015 3:25 PM [facility] RDW-CV 15.5(H) 12.1 - 14.9 % 10/11/2015 3:25 PM [facility] MPV 9.1(L) 9.4 - 12.9 fl 10/11/2015 3:25 PM [facility] Neutrophils % 60.2 44.0 - 73.0 % 10/11/2015 3:25 PM [facility] Lymphocytes % 27.0 20.0 - 43.0 % 10/11/2015 3:25 PM [facility] Monocytes % 9.4 5.0 - 13.0 % 10/11/2015 3:25 PM [facility] Eosinophils % 2.3 0.0 - 6.0 % 10/11/2015 3:25 PM [facility] Basophils % 0.8 0.0 - 2.0 % 10/11/2015 3:25 PM [facility] Immature Granulocytes 0.3 0 - 1 % 10/11/2015 3:25 PM [facility] Neutrophil Absolute 4.73 2.01 - 7.14 x10^9/L 10/11/2015 3:25 PM [facility] Lymphocytes Absolute 2.12 1.07 - 3.94 x10^9/L 10/11/2015 3:25 PM [facility] Monocytes Absolute 0.74 0.26 - 1.07 x10^9/L 10/11/2015 3:25 PM [facility] Eosinophils Absolute 0.18 0 - 0.47 x10^9/L 10/11/2015 3:25 PM [facility] Basophils Absolute 0.06 0 - 0.08 x10^9/L 10/11/2015 3:25 PM [facility] Immature Granulocytes Absolute 0.02 0.00 - 0.06 x10^9/L 10/11/2015 3:25 PM [facility] nRBC Auto 0 /100 WBC 10/11/2015 3:25 PM [facility] Blood BLOOD SPECIMEN / Unknown 10/11/2015 3:20 PM PILL MACHINE OPERATOR 10/11/2015 3:23 PM [facility] Clarke Morris MD LAB - HEMATOLOGY ORD ERABLES [facility] [address] [place] [address] documented in this encounter Visit [...] at 2014 $ Given 10/11/2015 8:15 PM PILL MACHINE OPERATOR 1,000 mL ciprofloxacin (CIPRO) tablet 500 mg 500 mg, Oral, NOW, 1 dose, On Thu10/12/15 at 0000, Take with or without food, do not take with ramon, yogurt or calcium-fortified juice. $ Given 10/12/2015 12:15 AM PILL MACHINE OPERATOR 500 mg hydrocodone-acetaminophen (NORCO) 5-325 MG tablet 2 Tab 2 tablet, Oral, NOW, 1 dose, On Thu10/12/15 at 0000 $ Given 10/12/2015 12:15 AM PILL MACHINE OPERATOR 2 tablets iohexol (OMNIPAQUE 350) contrast Intravenous, CONTRAST ONCE, Starting on Emma 10/11/15 at 2118, Until Thu10/12/15 at 0119 $ Given - Contrast 10/11/2015 11:18 PM PILL MACHINE OPERATOR 100 mL morphine injection 2 mg 2 mg, Intravenous, NOW, 1 dose, On Emma 10/11/15 at 2014 $ Given 10/11/2015 8:23 PM PILL MACHINE OPERATOR 2 mg morphine injection 2 mg 2 mg, Intravenous, NOW, 1 dose, On Emma 10/11/15 at 2200 $ Given 10/11/2015 9:57 PM PILL MACHINE OPERATOR 2 mg ondansetron (ZOFRAN) injection 4 mg 4 mg, Intravenous, ONCE, 1 dose, On Emma 10/11/15 at 2030 $ Given 10/11/2015 8:24 PM PILL MACHINE OPERATOR 4 mg documented in this encounter Active and Recently Administered Medications Times are shown in PILL MACHINE OPERATOR. Scheduled Medication Order 10/10/2015 10/11/2015 10/12/2015 0.9% [...]
--- OUTSIDE RECORDS SUMMARY | 2024-09-25 20:09 | XMS_ITS | Encounter Summary ---
Author Organization [facility] Address [address] [facility] [place] [address] Care Team Providers Care Lining Machine Operator Name Role Phone Unavailable Primary Care Provider Unavailabl e Reason for Visit * Reason Comments Pain Pelvic pelvic pain for one week/has an IUD and thinks it has shifted/vag spotting 2 weeks ago Encounter Details Date Type Department Care Team (Late st Contact Info) Description 04/30/2016 11:42 PM CDT - 05/01/2016 12:25 AM CDT Emergency ER at [address] [phone] Discharge Disposition: Left Against Medical Advice/Discontinued Care [...] POINT OF CARE ORDERABLES [facility] POCT TESTING [address] [phone] * URINALYSIS ROUTINE W/REFLEX TO CULTURE (04/30/2016 7:19 PM CDT) Color UA Yellow Straw, Yellow, Dark Yellow 04/30/2016 7:39 PM CDT [facility] Clarity UA Clear 04/30/2016 7:39 PM CDT [facility] Specific [place] UA 1.026 1.005 - 1.030 04/30/2016 7:39 PM CDT [facility] pH UA 5.5 5.0 - 8.0 pH 04/30/2016 7:39 PM CDT [facility] Protein UA Negative Negative 04/30/2016 7:39 PM CDT [facility] Blood UA Negative Negative 04/30/2016 7:39 PM CDT [facility] Leukocyte UA Negative Negative 04/30/2016 7:39 PM CDT [facility] Nitrite UA Negative Negative 04/30/2016 7:39 PM CDT [facility] Glucose UA Negative Negative 04/30/2016 7:39 PM CDT [facility] Ketone UA Negative Negative 04/30/2016 7:39 PM CDT [facility] Bilirubin UA Negative Negative 04/30/2016 7:39 PM CDT [facility] Urobilinogen UA 1.0 0.1 - 1.0 EU/dL 04/30/2016 7:39 PM CDT [facility] Reflex Status Culture not indicated 04/30/2016 7:39 PM CDT [facility] Urine URINE SPECIMEN OBTAINED BY CLEAN CATCH PROCEDURE / Unknown 04/30/2016 7:19 PM CDT 04/30/2016 7:33 PM CDT Aleah Douglas MD LAB - URINALYSIS ORD ERABLES Performing Organization Address [facility]/ZIP Co de Phone Number [facility] [address] [place] [address] * (ABNORMAL) BASIC METABOLIC PANEL (CALCIUM TOTAL) (04/30/2016 6:00 PM CDT) [facility] Glucose 88 74 - 106 mg/dL 04/30/2016 6:19 PM CDT [facility] Sodium 141 136 - 145 mmol/L 04/30/2016 6:19 PM CDT [facility] Potassium 3.8 3.5 - 5.1 mmol/L 04/30/2016 6:19 PM CDT [facility] Chloride 109(H) 98 - 107 mmol/L 04/30/2016 6:19 PM CDT [facility] CO2 25 22 - 31 mmol/L 04/30/2016 6:19 PM CDT [facility] Calcium 8.6 8.5 - 10.1 mg/dL 04/30/2016 6:19 PM CDT [facility] Anion Gap 7 5 - 20 mmol/L 04/30/2016 6:19 PM CDT [facility] BUN 8 7 - 21 mg/dL 04/30/2016 6:19 PM CDT [facility] Creatinine 0.64 0.50 - 1.30 mg/dL 04/30/2016 6:19 PM CDT [facility] eGFR by MDRD >60 >60 mL/min/1.7 3m2 04/30/2016 6:19 PM CDT [facility] eGFR by MDRD >60 >60 mL/min/1.7 3m2 04/30/2016 6:19 PM CDT [facility] Blood BLOOD SPECIMEN / Unknown Venipuncture / Unknown 04/30/2016 6:00 PM CDT 04/30/2016 6:04 PM CDT Aleah Douglas MD LAB - CHEMISTRY JOANNA YUNG Performing Organization Address City/[facility]/ZIP Co de Phone Number [facility] [address] [place] [address] * (ABNORMAL) CBC W AUTO DIFFERENTIAL (04/30/2016 6:00 PM CDT) [facility] WBC 7.3 4.4 - 10.7 x10E9/L 04/30/2016 6:07 PM CDT [facility] WBC Corrected x10E9/L 04/30/2016 6:07 PM CDT [facility] RBC 4.45 3.80 - 5.20 x10E12/L 04/30/2016 6:07 PM CDT [facility] Hemoglobin 11.2(L) 12.0 - 15.6 gm/dL 04/30/2016 6:07 PM CDT [facility] Hematocrit 34.3(L) 35.9 - 45.5 % 04/30/2016 6:07 PM CDT [facility] MCV 77.1(L) 80.7 - 98.3 fl 04/30/2016 6:07 PM CDT [facility] MCH 25.2(L) 26.7 - 34.0 pg 04/30/2016 6:07 PM CDT [facility] MCHC 32.7 30.8 - 35.9 gm/dL 04/30/2016 6:07 PM CDT [facility] Platelet Count 398 153 - 416 x10E9/L 04/30/2016 6:07 PM CDT [facility] RDW-CV 18.1(H) 12.1 - 14.9 % 04/30/2016 6:07 PM CDT [facility] MPV 9.1(L) 9.4 - 12.9 fl 04/30/2016 6:07 PM CDT [facility] Neutrophils % 50.9 44.0 - 73.0 % 04/30/2016 6:07 PM CDT [facility] Lymphocytes % 36.3 20.0 - 43.0 % 04/30/2016 6:07 PM CDT [facility] Monocytes % 9.0 5.0 - 13.0 % 04/30/2016 6:07 PM CDT [facility] Eosinophils % 2.7 0.0 - 6.0 % 04/30/2016 6:07 PM CDT [facility] Basophils % 0.8 0.0 - 2.0 % 04/30/2016 6:07 PM CDT [facility] Immature Granulocytes 0.3 0 - 1 % 04/30/2016 6:07 PM CDT [facility] Neutrophil Absolute 3.72 2.01 - 7.14 x10E9/L 04/30/2016 6:07 PM CDT [facility] Lymphocytes Absolute 2.65 1.07 - 3.94 x10E9/L 04/30/2016 6:07 PM CDT [facility] Monocytes Absolute 0.66 0.26 - 1.07 x10E9/L 04/30/2016 6:07 PM CDT [facility] Eosinophils Absolute 0.20 0 - 0.47 x10E9/L 04/30/2016 6:07 PM CDT [facility] Basophils Absolute 0.06 0 - 0.08 x10E9/L 04/30/2016 6:07 PM CDT [facility] Immature Granulocytes Absolute 0.02 0.00 - 0.06 x10E9/L 04/30/2016 6:07 PM CDT [facility] nRBC Auto 0 /100 WBC 04/30/2016 6:07 PM CDT [facility] Blood BLOOD SPECIMEN / Unknown Venipuncture / Unknown 04/30/2016 6:00 PM CDT 04/30/2016 6:04 PM CDT Aleah Douglas MD LAB - HEMATOLOGY ORD ERABLES [facility] Organization Address City/State/ZIP Co de Phone Number [facility] [address] [place] [address] documented in this encounter Visit Diagnoses Not on filedocumented in this encounter
--- OUTSIDE RECORDS SUMMARY | 2024-09-25 20:09 | XMS_ITS | Encounter Summary ---
Author Organization [facility] Address [address] [address] Care Team Providers Care Hog Confinement System Manager Name Role Phone Unavailable Primary Care Provider Unavailabl e Reason for Visit * Reason Comments Pain Abdominal abd pain and vag spo tting started today approx 12 weeks preg Encounter Details Date Type Department Care Team (Late st Contact Info) Description 03/07/2014 7:38 PM CDT - 03/07/2014 11:10 PM CDT Emergency ER at [facility] [address] [place] [address] Vito Mac MD [address] [place] [address] Unspecified complication of , antepartum (HCC); Abdominal [...] Document Reviewed: 03/19/2012 ExitCare?? Patient Information ??2013 [employer] documented in this encounter Medications at Time [...] with the patient: 03/07/2014 20:53 Jumana Rivers [id number] [facility]GENC[facility] [...] few weeks. She has been seen at [facility] previously, and had an US obtained that per patient showed a viable IUP with FHT. The patient denies any recent injury, trauma or heavy lifting. There are no other exacerbating or relieving factors. No other associated complaints or concerns at this time. Physician (S): [facility] - PCP Pain Abdominal [...] Yellow, Dark Yellow Clarity UA Clear Specific [place] UA 1.029 1.005-1.030 pH UA 6.0 5.0-8.0 [...] 63.2 44.0-73.0 % Lymph 22.9 20.0-43.0 % [place] 9.0 5.0-13.0 % Eos 3.9 0.0-6.0 % Baso 0.4 0.0-2.0 % Immature Grans 0.6 0-1 % Neutro Abs 6.88 2.01-7.14 x10^9/L Lymph Abs 2.50 1.07-3.94 x10^9/L [place] Abs 0.98 0.26-1.07 x10^9/L Eosin Abs 0.43 0-0.47 x10^9/L Baso Abs 0.04 0-0.08 x10^9/L Immature Grans Abs 0.07 (*) 0.00-0.06 x10^9/L NRBC Auto 0 HCG BETA BLOOD QUANTITATIVE Result Value Range HCG Quant Serum 33830 BLOOD TYPE ABO+ RH PANEL Result Value [...] have advised the patient to follow-up with: [facility] 10:53 PM: Disposition: Discharged [...] Has had US already, OB care at [place]. Pt is aox4 and stable. * Criss March, TYPEWRITER ASSEMBLY AND PARTS INSPECTOR-DYE AND CHEMICAL COORDINATOR - 03/07/2014 3:49 PM CDT Provider contact [...] Positive( A) Negative 03/07/2014 10:24 PM CDT [facility] Microbiology ENTIRE VAGINA / Unknown Collection / Unknown 03/07/2014 10:09 PM CDT 03/07/2014 10:12 PM CDT Vito Mac MD LAB - MICROBIOLOGY O RDERABLES [facility] [address] [place] [address] * (ABNORMAL) CHLAMYDIA + GC AMPLIFIED PROBE (03/07/2014 10:09 PM CDT) Pathologist [facility] Chlamydia Amplified Probe Positive(A) Negative 03/08/2014 9:25 AM CDT [facility]CRO[facility]OLOG[facility] GC Amplified Probe Negative Negative 03/08/2014 9:25 AM CDT [facility]CRO[facility] Microbiology PART OF UTERINE CERVIX / Unknown Collection / Unknown 03/07/2014 10:09 PM CDT 03/07/2014 10:[address] [facility] MICROBIOLOGY - 03/08/2014 9:25 AM CDT Results based on detection/no detection of ribosomal RNA by amplified method. Vito Mac MD LAB - MICROBIOLOGY O RDERABLES Performing Organization Address [facility] Co de Phone Number [facility] [address] * (ABNORMAL) CULTURE URINE (03/07/2014 4:04 PM CDT) [facility] Culture 10,000-50,000 CFU/mL normal skin/urogenital marco 03/09/2014 10:24 AM CDT [facility] MICRO[facility]OLOGY Culture 1,000-10,000 CFU/mL Streptococcus agalactiae (Group B)(A) 03/09/2014 10:24 AM CDT [facility] MICRO[facility]OLOGY Urine URINE SPECIMEN OBTAINED BY CLEAN CATCH PROCEDURE / Unknown Collection / Unknown 03/07/2014 4:04 PM CDT 03/07/2014 4:[address] [facility] MICROBIOLOGY - 03/09/2014 10:24 AM CDT Susceptibility testing of penicillin, other beta-lactam antibiotics, and vancomycin is not necessary for beta-hemolytic streptococci groups A,B,C and G because resistant strains have not been recognized. Criss March APRN-DYE AND CHEMICAL COORDINATOR LAB - MICROBIOLOGY ORDERABLES Performing Organization Address [facility] Co de Phone Number [facility] [address] [place] [address], [facility] * (ABNORMAL) URINALYSIS ROUTINE W/REFLEX TO CULTURE (03/07/2014 4:04 PM CDT) Color UA Yellow Straw, Yellow, Dark Yellow 03/07/2014 4:25 PM CDT [facility] Clarity UA Clear 03/07/2014 4:25 PM CDT [facility] Specific [place] UA 1.029 1.005 - 1.030 03/07/2014 4:25 PM CDT [facility] pH UA 6.0 5.0 - 8.0 pH 03/07/2014 4:25 PM CDT [facility] Protein UA Negative Negative 03/07/2014 4:25 PM CDT [facility] Blood UA 3+(A) Negative 03/07/2014 4:25 PM CDT [facility] Leukocyte UA Trace(A) Negative 03/07/2014 4:25 PM CDT [facility] Nitrite UA Negative Negative 03/07/2014 4:25 PM CDT [facility] Glucose UA Negative Negative 03/07/2014 4:25 PM CDT [facility] Ketone UA Negative Negative 03/07/2014 4:25 PM CDT [facility] Bilirubin UA Negative Negative 03/07/2014 4:25 PM CDT [facility] Urobilinogen UA 1.0 0.1 - 1.0 EU/dL 03/07/2014 4:25 PM CDT [facility] WBC UA Auto 2-5 0-2, 2-5 #/hpf 03/07/2014 4:25 PM CDT [facility] RBC UA Auto 50-100(A) 0-2, 2-5 #/hpf 03/07/2014 4:25 PM CDT [facility] Epithelial Cell UA Auto 2-5 0-2, 2-5 #/hpf 03/07/2014 4:25 PM CDT [facility] Hyaline Casts UA Auto 2-5(A) 0 - 2 #/lpf 03/07/2014 4:25 PM CDT [facility] Reflex Status Culture to follow 03/07/2014 4:25 PM CDT [facility] Urine URINE SPECIMEN OBTAINED BY CLEAN CATCH PROCEDURE / Unknown Collection / Unknown 03/07/2014 4:04 PM CDT 03/07/2014 4:09 PM CDT Criss March TYPEWRITER ASSEMBLY AND PARTS INSPECTOR-DYE AND CHEMICAL COORDINATOR LAB - URINALYSIS O RDERABLES [facility] [address] [place] [address] * HCG BETA BLOOD QUANTITATIVE (03/07/2014 3:56 PM CDT) hCG Quantitative 63,352 mIU/mL 03/07/20 14 4:35 PM CDT [facility] Blood BLOOD SPECIMEN / Unknown Venipuncture / Unknown 03/07/2014 3:56 PM CDT 03/07/2014 4:04 PM CDT Narrative [facility] - 03/07/2014 4:35 PM CDT ?? [...] - CHEMISTRY OR DERABLES Performing Organization Address [facility] de Phone Number [facility] [address] [place] [address] * BLOOD TYPE ABO+ RH PANEL (03/07/2014 3:56 PM CDT) Pathologist [facility] ABO O 03/07/2014 4:30 PM CDT [facility] Rh Type Positive 03/07/2014 4:30 PM CDT [facility] Comment:History check perfor med. Retype required. Miscellaneous samples (specimen) BLOOD SPECIMEN / Unknown Venipuncture / Unknown 03/07/2014 3:56 PM CDT 03/07/2014 4:04 PM CDT Criss SAHU LAB - BLOOD BANK O RDERABLES Performing Organization Address [facility] Co de Phone Number [facility] * (ABNORMAL) CBC W AUTO DIFFERENTIAL (03/07/2014 3:56 PM CDT) Pathologist [facility] WBC 10.9(H) 4.4 - 10.7 x10^9/L 03/07/2014 4:09 PM CDT [facility] RBC 4.66 3.80 - 5.20 x10^12/L 03/07/2014 4:09 PM CDT [facility] Hemoglobin 12.5 12.0 - 15.6 gm/dL 03/07/2014 4:09 PM CDT [facility] Hematocrit 36.5 35.9 - 45.5 % 03/07/2014 4:09 PM CDT [facility] MCV 78.3(L) 80.7 - 98.3 fl 03/07/2014 4:09 PM CDT [facility] MCH 26.8 26.7 - 34.0 pg 03/07/2014 4:[facility] MCHC 34.2 30.8 - 35.9 gm/dL 03/07/2014 4:09 PM [facility] Platelet Count 341 153 - 416 x10^9/L 03/07/2014 4:09 PM [facility] RDW-CV 17.1(H) 12.1 - 14.9 % 03/07/2014 4:09 PM [facility] MPV 9.2(L) 9.4 - 12.9 fl 03/07/2014 4:09 PM [facility] Neutrophils % 63.2 44.0 - 73.0 % 03/07/2014 4:09 PM [facility] Lymphocytes % 22.9 20.0 - 43.0 % 03/07/2014 4:09 PM T [facility] Monocytes % 9.0 5.0 - 13.0 % 03/07/2014 4:09 PM T [facility] Eosinophils % 3.9 0.0 - 6.0 % 03/07/2014 4:09 PM [facility] Basophils % 0.4 0.0 - 2.0 % 03/07/2014 4:09 PM [facility] Immature Granulocytes 0.6 0 - 1 % 03/07/2014 4:09 PM [facility] Neutrophil Absolute 6.88 2.01 - 7.14 x10^9/L 03/07/2014 4:09 PM CDT [facility] Lymphocytes Absolute 2.50 1.07 - 3.94 x10^9/L 03/07/2014 4:09 PM CDT [facility] Monocytes Absolute 0.98 0.26 - 1.07 x10^9/L 03/07/2014 4:09 [facility] Eosinophils Absolute 0.43 0 - 0.47 x10^9/L 03/07/2014 4:09 PM T [facility] Basophils Absolute 0.04 0 - 0.08 x10^9/L 03/07/2014 4:09 PM CDT [facility] Immature Granulocytes Absolute 0.07(H) 0.00 - 0.06 x10^9/L 03/07/2014 4:09 PM CDT [facility] nRBC Auto 0 /100 WBC 03/07/2014 4:09 PM CDT [facility] Blood BLOOD SPECIMEN / Unknown Venipuncture / Unknown 03/07/2014 3:56 PM CDT 03/07/2014 4:04 PM CDT Criss March TYPEWRITER ASSEMBLY AND PARTS INSPECTOR-DYE AND CHEMICAL COORDINATOR LAB - HEMATOLOGY O RDERABLES [facility] [address] [place] [address] documented in this encounter Visit Diagnoses Diagnosis [...]
--- OUTSIDE RECORDS SUMMARY | 2024-09-25 20:09 | XMS_ITS | Encounter Summary ---
Author Organization [facility] Address [address] [place] [address] Care Team Providers Care Property Investor Name Role Phone Unavailable Primary Care Provider Unavailabl e Reason for Visit * Reason Comments Pain Flank right flank and back pain onset this morning Encounter Details Date Type Department Care Team (Late st Contact Info) Description 10/30/2015 10:25 PM GAME PROGRAMMER - 10/31/2015 12:29 AM GAME PROGRAMMER Emergency ER at [facility] [address] [place], [place] [id number] Rubén Duarte, DO [address] [place] [id number] Kidney stone; Urinary tract infection with hematuria, [...] Comments Blood Pressure 137/70 10/30/2015 11:36 PM GAME PROGRAMMER Pulse 97 10/30/2015 10:34 PM GAME PROGRAMMER Temperature 36.4 ??C (97.6 ??F) 10/30/2015 6:59 PM CS T Respiratory Rate 20 10/30/2015 10:34 PM GAME PROGRAMMER Oxygen Saturation 100% 10/30/2015 11:36 PM GAME PROGRAMMER Inhaled Oxygen Concentration - - Weight 86.2 kg (190 lb) 10/30/2015 6:59 PM GAME PROGRAMMER Height 162.6 cm (5' 4.02 ) 10/30/2015 6:59 PM CS T Body Mass Index 32.6 10/30/2015 6:59 PM GAME PROGRAMMER documented in this encounter Functional Status Functional [...] Hiwot Stanford RN - 10/31/2015 12:29 AM GAME PROGRAMMER Images from the original note were not [...] Document Reviewed: 01/25/2014 ExitCare?? Patient Information ??2015 [employer] This information is not intended to replace [...] Document Reviewed: 10/01/2012 ExitCare?? Patient Information ??2013 [employer] PROGRAMMER documented in this encounter Medications at Time [...] lb) BMI 32.60 kg/m2 Will continue home. PROGRAMMER * Hiwot Stanford RN - 10/30/2015 11:37 PM CST Pt resting quietly on stretcher with side rails up and call light in reach. Boyfriend at bedside. BP 138/80 mmHg Pulse 97 Temp(Src) 97.6 ??F Resp 20 Wt 86.183 kg (190 lb) BMI 32.60 kg/m2 Will continue to monitor. PROGRAMMER * Hiwot Stanford RN - 10/30/2015 10:58 [...] BMI 32.60 kg/m2 Will continue to monitor. PROGRAMMER * Hiwot Stanford RN - 10/30/2015 10:34 PM CST MD at bedside. PROGRAMMER * GeraldRubén diaz, DO - 10/30/2015 10:27 PM CST Provider contact with the patient: 10/30/2015 22:27 Jumana Rivers [id number] [facility] EM[facility] [...] 44.0-73.0 % Lymph 19.8 (L) 20.0-43.0 % [place] 12.0 5.0-13.0 % Eos 2.2 0.0-6.0 % Baso 0.7 0.0-2.0 % Immature Grans 0.3 0-1 % Neutro Abs 5.83 2.01-7.14 x10^9/L Lymph Abs 1.78 1.07-3.94 x10^9/L [place] Abs 1.08 (H) 0.26-1.07 x10^9/L Eosin Abs [...] Yellow, Dark Yellow Clarity UA Clear Specific [place] UA 1.015 1.005-1.030 pH UA 8.0 5.0-8.0 [...] have advised the patient to follow-up with: [facility] COMMUNITY STUDIO OPERATIONS ENGINEER IN CHARGE [address] [facility] [phone] Schedule an appointment as soon as possible for a visit Disposition: Discharged I have reviewed the information recorded by the scribe and agree with its accuracy and contents--Dr. Duarte 10/31/2015 12:21 AM Transcribed by Berry Shields acting scribe on behalf of Dr. Duarte 10/30/2015 10:29 PM PROGRAMMER documented in this encounter Plan of Treatment Not on file documented as of this encounter Procedures Procedure Name Priority Date/Time Associated Diagnosis Comments HCG URINE QUALITATIVE - POINT OF CARE STAT 10/30/2015 7:40 PM GAME PROGRAMMER URINE MICROSCOPIC ONLY REFLEX TO CULTURE STAT 10/30/2015 7:35 PM GAME PROGRAMMER URINALYSIS REFLEX MICROSCOPIC REFLEX CULTURE STAT 10/30/2015 7:35 PM GAME PROGRAMMER CULTURE URINE STAT 10/30/2015 7:35 PM GAME PROGRAMMER CBC W AUTO DIFFERENTIAL STAT 10/30/2015 7:35 PM GAME PROGRAMMER COMPREHENSIVE METABOLIC PANEL STAT 10/30/2015 7:35 PM GAME PROGRAMMER documented in this encounter Results * HCG URINE QUALITATIVE - POINT OF CARE (IP) (10/30/2015 7:40 PM GAME PROGRAMMER) HCG Qual Urine Negative Negative [facility] POCT TESTING QC Verified Yes Yes [facility] POC T TESTING Urine specimen (specimen) URINE / Unknown 10/30/2015 7:40 PM GAME PROGRAMMER Rubén Duarte DO LAB - POINT OF CARE ORDERABLES [facility] POCT TESTING [address] [place] [id number] [place] [address] * CULTURE URINE (10/30/2015 7:35 PM GAME PROGRAMMER) Culture <10,000 CFU/mL urogenital marco CHRYSTAL 11/01/2015 10:15 AM GAME PROGRAMMER [facility] Urine URINE SPECIMEN OBTAINED BY CLEAN CATCH PROCEDURE / Unknown Collection / Unknown 10/30/2015 7:35 PM GAME PROGRAMMER 10/30/2015 7:40 PM GAME PROGRAMMER Junior Rubio MD LAB - MICROBIOLOGY O RDERABLES Performing Organization Address City/[facility]/ZIP Co de Phone Number [facility] [address] [place] [phone] * (ABNORMAL) URINALYSIS MICROSCOPIC ONLY W/REFLEX CULTURE (10/30/2015 7:35 PM GAME PROGRAMMER) RBC UA 2-5 0-2, 2-5 # /hpf 10/30/2015 8:00 PM [facility] WBC UA 10-20(A) 0-2, 2-5 # /hpf 10/30/2015 8:00 PM [facility] Bacteria UA 1+(A) None Seen 10/30/2015 8:00 PM [facility] Epithelial Cell UA 2-5 0-2, 2-5 # /hpf 10/30/2015 8:00 PM [facility] Reflex Status Culture to follow 10/30/2015 8:00 PM [facility] Urine URINE SPECIMEN OBTAINED BY CLEAN CATCH PROCEDURE / Unknown Collection / Unknown 10/30/2015 7:35 PM GAME PROGRAMMER 10/30/2015 7:40 PM GAME PROGRAMMER Junior Rubio MD LAB - URINALYSIS ORD ERABLES Performing Organization Address City/[facility]/ZIP Co de Phone Number [facility] [address] [place] [address] * (ABNORMAL) URINALYSIS ROUTINE W/REFLEX TO CULTURE (10/30/2015 7:35 PM GAME PROGRAMMER) Color UA Yellow Straw, Yellow, Dark Yellow 10/30/2015 7:48 PM GAME PROGRAMMER [facility] Clarity UA Clear 10/30/2015 7:48 PM GAME PROGRAMMER [facility] Specific [place] UA 1.015 1.005 - 1.030 10/30/2015 7:48 PM [facility] pH UA 8.0 5.0 - 8.0 pH 10/30/2015 7:48 PM [facility] Protein UA Negative Negative 10/30/2015 7:48 PM [facility] Blood UA Trace(A) Negative 10/30/2015 7:48 PM [facility] Leukocyte UA 2+(A) Negative 10/30/2015 7:48 PM GAME PROGRAMMER [facility] Nitrite UA Negative Negative 10/30/2015 7:48 PM GAME PROGRAMMER [facility] Glucose UA Negative Negative 10/30/2015 7:48 PM [facility] Ketone UA 1+(A) Negative 10/30/2015 7:48 PM [facility] Bilirubin UA Negative Negative 10/30/2015 7:48 PM [facility] Urobilinogen UA 0.2 0.1 - 1.0 EU/dL 10/30/2015 7:48 PM [facility] WBC UA Auto Reflex to manual(A) 0-2, 2-5 # /hpf 10/30/2015 7:48 PM [facility] RBC UA Auto Reflex to manual(A) 0-2, 2-5 # /hpf 10/30/2015 7:48 PM [facility] Epithelial Cell UA Auto Reflex to manual(A) 0-2, 2-5 # /hpf 10/30/2015 7:48 PM [facility] Bacteria UA Auto Reflex to manual(A) None seen 10/30/2015 7:48 PM [facility] Reflex Status Culture to follow 10/30/2015 7:48 PM [facility] Urine URINE SPECIMEN OBTAINED BY CLEAN CATCH PROCEDURE / Unknown Collection / Unknown 10/30/2015 7:35 PM GAME PROGRAMMER 10/30/2015 7:40 PM [facility] Rubén Duarte DO LAB - URINALYSIS ORD ERABLES [facility] [address] [place] [address] * COMPREHENSIVE METABOLIC PANEL (10/30/2015 7:35 PM GAME PROGRAMMER) Glucose 81 74 - 106 mg/dL 10/30/2015 7:58 PM [facility] Sodium 136 136 - 145 mmol/L 10/30/2015 7:58 PM [facility] Potassium 4.0 3.5 - 5.1 mmol/L 10/30/2015 7:58 PM [facility] Chloride 103 98 - 107 mmol/L 10/30/2015 7:58 PM [facility] CO2 24 22 - 31 mmol/L 10/30/2015 7:58 PM [facility] Calcium 8.8 8.5 - 10.1 mg/dL 10/30/2015 7:58 PM [facility] Anion Gap 9 5 - 20 mmol/L 10/30/2015 7:58 PM [facility] BUN 9 7 - 21 mg/dL 10/30/2015 7:58 PM [facility] Creatinine 0.95 0.50 - 1.30 mg/dL 10/30/2015 7:58 PM [facility] Alkaline Phosphatase 72 38 - 126 U/L 10/30/2015 7:58 PM [facility] ALT 15 12 - 78 U/L 10/30/2015 7:58 PM [facility] AST 10 5 - 40 U/L 10/30/2015 7:58 PM [facility] Protein Total 8.2 6.4 - 8.2 gm/dL 10/30/2015 7:58 PM [facility] Albumin 4.1 3.4 - 5.0 gm/dL 10/30/2015 7:58 PM [facility] Bilirubin Total 0.5 0.2 - 1.0 mg/dL 10/30/2015 7:58 PM [facility] eGFR by MDRD >60 >60 mL/min/1.7 3m2 10/30/2015 7:58 PM [facility] eGFR by MDRD >60 >60 mL/min/1.7 3m2 10/30/2015 7:58 PM [facility] Blood BLOOD SPECIMEN / Unknown Venipuncture / Unknown 10/30/2015 7:35 PM [facility] 10/30/2015 7:40 PM [facility] Rubén Duarte DO LAB - CHEMISTRY JOANNA YUNG [facility] [address] [place] [address] * (ABNORMAL) CBC W AUTO DIFFERENTIAL (10/30/2015 7:35 PM [facility]) WBC 9.0 4.4 - 10.7 x10^9/L 10/30/2015 7:42 PM [facility] WBC Corrected x10^9/L 10/30/2015 7:42 PM [facility] RBC 5.08 3.80 - 5.20 x10^12/L 10/30/2015 7:42 PM [facility] Hemoglobin 13.2 12.0 - 15.6 gm/dL 10/30/2015 7:42 PM [facility] Hematocrit 39.7 35.9 - 45.5 % 10/30/2015 7:42 PM [facility] MCV 78.1(L) 80.7 - 98.3 fl 10/30/2015 7:42 PM [facility] MCH 26.0(L) 26.7 - 34.0 pg 10/30/2015 7:42 PM [facility] MCHC 33.2 30.8 - 35.9 gm/dL 10/30/2015 7:42 PM [facility] Platelet Count 375 153 - 416 x10^9/L 10/30/2015 7:42 PM [facility] RDW-CV 15.4(H) 12.1 - 14.9 % 10/30/2015 7:42 PM [facility] MPV 9.3(L) 9.4 - 12.9 fl 10/30/2015 7:42 PM [facility] Neutrophils % 65.0 44.0 - 73.0 % 10/30/2015 7:42 PM [facility] Lymphocytes % 19.8(L) 20.0 - 43.0 % 10/30/2015 7:42 PM [facility] Monocytes % 12.0 5.0 - 13.0 % 10/30/2015 7:42 PM [facility] Eosinophils % 2.2 0.0 - 6.0 % 10/30/2015 7:42 PM [facility] Basophils % 0.7 0.0 - 2.0 % 10/30/2015 7:42 PM [facility] Immature Granulocytes 0.3 0 - 1 % 10/30/2015 7:42 PM [facility] Neutrophil Absolute 5.83 2.01 - 7.14 x10^9/L 10/30/2015 7:42 PM [facility] Lymphocytes Absolute 1.78 1.07 - 3.94 x10^9/L 10/30/2015 7:42 PM GAME PROGRAMMER [facility] Monocytes Absolute 1.08(H) 0.26 - 1.07 x10^9/L 10/30/2015 7:42 PM [facility] Eosinophils Absolute 0.20 0 - 0.47 x10^9/L 10/30/2015 7:42 PM GAME PROGRAMMER [facility] Basophils Absolute 0.06 0 - 0.08 x10^9/L 10/30/2015 7:42 PM [facility] Immature Granulocytes Absolute 0.03 0.00 - 0.06 x10^9/L 10/30/2015 7:42 PM [facility] nRBC Auto 0 /100 WBC 10/30/2015 7:42 PM [facility] Blood BLOOD SPECIMEN / Unknown Venipuncture / Unknown 10/30/2015 7:35 PM GAME PROGRAMMER 10/30/2015 7:40 PM GAME PROGRAMMER Rubén Duarte DO LAB - HEMATOLOGY ORD ERABLES Performing Organization Address City/State/[facility] Co de Phone Number [facility] [id number] [place] [address] documented in this encounter Visit Diagnoses Diagnosis [...] mL Bolus $ Given 10/30/2015 11:00 PM GAME PROGRAMMER 1000 mL/hr HYDROmorphone (DILAUDID) injection 1 mg 1 mg, Intravenous, ONCE, 1 dose, On Thu10/30/15 at 2300 $ Given 10/30/2015 10:43 PM GAME PROGRAMMER 1 mg ketorolac (TORADOL) injection 30 mg 30 mg, Intravenous, ONCE, 1 dose, On Thu10/30/15 at 2300, Do not administer if sensitivity to Aspirin, history of asthma or if urine is positive $ Given 10/30/2015 10:46 PM GAME PROGRAMMER 30 mg levofloxacin (LEVAQUIN) IVPB 500 mg 500 mg, at 100 mL/hr, Intravenous, ONCE, 1 dose, On Thu10/30/15 at 2300 $ Given 10/30/2015 10:49 PM GAME PROGRAMMER 500 mg 100 mL/ hr metoclopramide (REGLAN) injection 10 mg 10 mg, Intravenous, ONCE, 1 dose, On Thu10/30/15 at 2300 $ Given 10/30/2015 10:45 PM GAME PROGRAMMER 10 mg documented in this encounter Active and Recently Administered Medications Times are shown in GAME PROGRAMMER. Scheduled Medication Order 10/29/2015 10/30/2015 10/31/2015 0.9% [...]
--- OUTSIDE RECORDS SUMMARY | 2024-09-25 20:09 | XMS_ITS | Encounter Summary ---
Author Organization [facility] Address [address] [facility] [place] [address] Care Team Providers Care Bench Hand Name Role Phone Unavailable Primary Care Provider Unavailabl e Reason for Visit * Reason Comments Allergy Symptoms for 1 month Cough Encounter Details Date Type Department Care Team (Late st Contact Info) Description 01/08/2016 9:27 AM CDT - 01/08/2016 10:49 AM CDT Emergency ER at [facility] [address] [place] [address] Valente Perez MD [address] [place] [address] Mild intermittent asthma without complication [...] Discharge Instructions * Discharge Instructions* Catherine Dubose, NEELAM-HAT BRAIDER - 01/08/2016 10:45 AM CDT Images from [...] Document Reviewed: 12/19/2013 ExitCare?? Patient Information ??2015 Z2. This information is not intended to replace [...] vacuum, use a dust mask (from a [employer] store), a double-layered or microfilter vacuum drum cleaner bag, or a vacuum drum cleaner with a HEPAfilter. ?? Avoid perfumes, [...] Document Reviewed: 07/02/2010 ExitCare?? Patient Information ??2014 Z2. Cough, Adult A cough is a reflex [...] cough. HOME CARE INSTRUCTIONS ?? Only take [id number]-[id number] or prescription medicines for pain, discomfort, or [...] Document Reviewed: 02/20/2012 ExitCare?? Patient Information ??2013 Z2. Rash A rash is a change in [...] may need to see a skin doctor (charge out clerk). HOME CARE INSTRUCTIONS ?? Avoid the substance that caused your rash. ?? Do not scratch your rash. This can cause infection. ?? You may take cool baths to help stop itching. ?? Only take jzlt-vcu-[id number] or prescription medicines as directed by your [...] Document Reviewed: 06/07/2012 ExitCare?? Patient Information ??2013 Z2. documented in this encounter Medications at Time of Discharge Medication Sig Dispensed Refills Start Date End Date albuterol HFA (PROVENTIL;VENTOLIN;WA OAIR) 108 (90 BASE) MCG/ACT inhaler Inhale [...] mo. Waiting provider eval. * Catherine Dubose, TRAVELING REPRESENTATIVE-HAT BRAIDER - 01/08/2016 9:32 AM CDT Provider contact with the patient: 01/08/2016 09:32 Jumana Rivers [phone] [facility] EMERGENCY DEPARTMENT History [...] to follow-up with: Paulina Arnold Jr., MD [address] [id number] or may go to [facility] Disposition: Discharged I have reviewed the [...]
--- OUTSIDE RECORDS SUMMARY | 2024-09-25 20:09 | XMS_ITS | Encounter Summary ---
Author Organization [facility] Address [address] [place] [address] Care Team Providers Care Biomass Technician Name Role Phone Unavailable Primary Care Provider Unavailabl e Reason for Visit * Reason Comments Dizziness dizziness around 110 0, no LOC Encounter Details Date Type Department Care Team (Late st Contact Info) Description 04/21/2015 9:49 PM CDT - 04/21/2015 10:32 PM CDT Emergency ER at [facility] [address] [place] [address] Doe Camargo MD [address] [place] [phone] Anxiety Discharge Disposition: Home or Self [...] is fine. ?? 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 Patient Information ??2014 GoodClic. Anxiety and Panic Attacks Your caregiver has [...] Document Reviewed: 12/26/2010 ExitCare?? Patient Information ??2014 GoodClic. documented in this encounter Medications at Time [...] with the patient: 04/21/2015 21:57 Jumana Rivers [id number] [facility] EMERGENCY DEPARTMENT [...] 44.0-73.0 % Lymph 43.2 (*) 20.0-43.0 % Placer 10.7 5.0-13.0 % Eos 2.6 0.0-6.0 % Baso 0.8 0.0-2.0 % Immature Grans 1.4 (*) 0-1 % Neutro Abs 3.67 2.01-7.14 x10^9/L Lymph Abs 3.83 1.07-3.94 x10^9/L Placer Abs 0.95 0.26-1.07 x10^9/L Eosin Abs 0.23 [...] Yellow, Dark Yellow Clarity UA Clear Specific [place] UA >1.030 (*) 1.005-1.030 pH UA 6.0 [...] have advised the patient to follow-up with: [facility] In 2 [...] - 21 mg/dL 04/21/2015 9:42 PM CDT [facility] Creatinine 0.61 0.50 - 1.30 mg/dL 04/21/2015 9:42 PM CDT [facility] eGFR by MDRD >60 >60 mL/min/1.7 3m2 04/21/2015 9:42 PM CDT [facility] eGFR by MDRD >60 >60 mL/min/1.7 3m2 04/21/2015 9:42 PM CDT [facility] Blood BLOOD SPECIMEN / Unknown Venipuncture / Unknown 04/21/2015 9:25 PM CDT 04/21/2015 9:28 PM CDT Doe Camargo MD LAB - CHEMISTR Y ORDERABLES [facility] [address] [place] [address] * (ABNORMAL) CBC W AUTO DIFFERENTIAL (04/21/2015 9:25 PM CDT) WBC 8.9 4.4 - 10.7 x10^9/L 04/21/2015 9:31 PM CDT [facility] WBC Corrected x10^9/L 04/21/2015 9:31 PM CDT [facility] RBC 4.77 3.80 - 5.20 x10^12/L 04/21/2015 9:31 PM CDT [facility] Hemoglobin 13.2 12.0 - 15.6 gm/dL 04/21/2015 9:31 PM CDT [facility] Hematocrit 39.0 35.9 - 45.5 % 04/21/2015 9:31 PM CDT [facility] MCV 81.8 80.7 - 98.3 fl 04/21/2015 9:31 PM CDT [facility] MCH 27.7 26.7 - 34.0 pg 04/21/2015 9:31 PM CDT [facility] MCHC 33.8 30.8 - 35.9 gm/dL 04/21/2015 9:31 PM CDT [facility] Platelet Count 394 153 - 416 x10^9/L 04/21/2015 9:31 PM CDT [facility] RDW-CV 13.9 12.1 - 14.9 % 04/21/2015 9:31 PM CDT [facility] MPV 8.7(L) 9.4 - 12.9 fl 04/21/2015 9:31 PM CDT [facility] Neutrophils % 41.3(L) 44.0 - 73.0 % 04/21/2015 9:31 PM CDT [facility] Lymphocytes % 43.2(H) 20.0 - 43.0 % 04/21/2015 9:31 PM CDT [facility] Monocytes % 10.7 5.0 - 13.0 % 04/21/2015 9:31 PM CDT [facility] Eosinophils % 2.6 0.0 - 6.0 % 04/21/2015 9:31 PM CDT [facility] Basophils % 0.8 0.0 - 2.0 % 04/21/2015 9:31 PM CDT [facility] Immature Granulocytes 1.4(H) 0 - 1 % 04/21/2015 9:31 PM CDT [facility] Neutrophil Absolute 3.67 2.01 - 7.14 x10^9/L 04/21/2015 9:31 PM CDT [facility] Lymphocytes Absolute 3.83 1.07 - 3.94 x10^9/L 04/21/2015 9:31 PM CDT [facility] Monocytes Absolute 0.95 0.26 - 1.07 x10^9/L 04/21/2015 9:31 PM CDT [facility] Eosinophils Absolute 0.23 0 - 0.47 x10^9/L 04/21/2015 9:31 PM CDT [facility] Basophils Absolute 0.07 0 - 0.08 x10^9/L 04/21/2015 9:31 PM T [facility] Immature Granulocytes Absolute 0.12(H) 0.00 - 0.06 x10^9/L 04/21/2015 9:31 PM T [facility] Blood BLOOD SPECIMEN / Unknown Venipuncture / Unknown 04/21/2015 9:25 PM CDT 04/21/2015 9:28 PM CDT Doe Camargo MD LAB - HEMATOLO GY ORDERABLES [facility] [address] [place] [address] * EKG 12-LEAD (04/21/2015 9:19 PM CDT) Ventricular Rate 87 BPM [facility] Atrial Rate 87 BPM [facility] P-R Interval 140 ms [facility] QRS Duration ms 80 ms [facility] Q-T Interval ms 362 ms [facility] QTC Calculation (Bezet) 435 ms [facility] Calculated P Rayle 39 degrees [facility] Calculated R Rayle 19 degrees [facility] Calculated T Rayle 4 degrees [facility] Interpretation EKG NORMAL SINUS RHYTHM NORMAL ECG NO PREVIOUS ECGS AVAILABLE Confirmed by Marty Del Castillo ([id number]) on 04/22/2015 7:13:49 AM [facility] 04/21/2015 9:19 PM CDT 04/22/2015 7:13 AM CDT Doe Camargo MD ECG ORDERABLES [facility] * (ABNORMAL) URINALYSIS ROUTINE W/REFLEX TO CULTURE (04/21/2015 8:57 PM CDT) Color UA Yellow Straw, Yellow, Dark Yellow 04/21/2015 9:31 PM CDT [facility] Clarity UA Clear 04/21/2015 9:31 PM CDT [facility] Specific [place] UA >1.030(H) 1.005 - 1.030 04/21/2015 9:31 PM CDT [facility] pH UA 6.0 5.0 - 8.0 pH 04/21/2015 9:31 PM CDT [facility] Protein UA Negative Negative 04/21/2015 9:31 PM CDT [facility] Blood UA 3+(A) Negative 04/21/2015 9:31 PM CDT [facility] Leukocyte UA Negative Negative 04/21/2015 9:31 PM CDT [facility] Nitrite UA Negative Negative 04/21/2015 9:31 PM CDT [facility] Glucose UA Negative Negative 04/21/2015 9:31 PM CDT [facility] Ketone UA Negative Negative 04/21/2015 9:31 PM CDT [facility] Bilirubin UA Negative Negative 04/21/2015 9:31 PM CDT [facility] Urobilinogen UA 1.0 0.1 - 1.0 EU/dL 04/21/2015 9:31 PM CDT [facility] WBC UA Auto 5-10(A) 0-2, 2-5 # /hpf 04/21/2015 9:31 PM CDT [facility] RBC UA Auto 50-100(A) 0-2, 2-5 # /hpf 04/21/2015 9:31 PM CDT [facility] Epithelial Cell UA Auto 5-10(A) 0-2, 2-5 # /hpf 04/21/2015 9:31 PM CDT [facility] Reflex Status Culture not indicated 04/21/2015 9:31 PM CDT [facility] Urine URINE SPECIMEN OBTAINED BY CLEAN CATCH PROCEDURE / Unknown Collection / Unknown 04/21/2015 8:57 PM CDT 04/21/2015 9:20 PM CDT Doe Camargo MD LAB - URINALYS IS ORDERABLES [facility] [address] [place] [address] * HCG URINE QUALITATIVE - POINT OF CARE (IP) (04/21/2015 8:57 PM CDT) HCG Qual Urine Negative Negative [facility] QC Verified Yes Yes [facility] POC T TESTING Urine specimen (specimen) URINE / Unknown 04/21/2015 8:57 PM CDT Doe Camargo MD LAB - POINT OF CARE ORDERABLES Performing Organization Address City/[facility]/ZIP Co de Phone Number [facility] [address] [place] [address] documented in this encounter Visit Diagnoses Diagnosis Dizziness Dizziness and giddiness Anxiety Anxiety state, unspecified documented in this encounter Active and Recently Administered Medications
--- OUTSIDE RECORDS SUMMARY | 2024-09-25 20:09 | XMS_ITS | Encounter Summary ---
Author Organization [facility] Address [address] [place] [address] Care Team Providers Care Lab Assistant Name Role Phone Unavailable Primary Care Provider Unavailabl e Reason for Visit * Reason Comments Sore Throat onset 2 days; dry co ugh; fever, runny nose, STYLES, body aches, fever; denies N-V-D Encounter Details Date Type Department Care Team (Late st Contact Info) Description 11/04/2014 8:53 PM MEAT BONER AND SLICER - 11/04/2014 10:21 PM MEAT BONER AND SLICER Emergency ER at [facility] [address] [place] [id number] Streptococcal sore throat; Hypokalemia; Leukocytosis; Cough Discharge [...] Comments Blood Pressure 125/71 11/04/2014 4:46 PM MEAT BONER AND SLICER Pulse 109 11/04/2014 4:46 PM MEAT BONER AND SLICER Temperature 37.1 ??C (98.8 ??F) 11/04/2014 4:46 PM CS T Respiratory Rate 20 11/04/2014 4:46 PM MEAT BONER AND SLICER Oxygen Saturation 100% 11/04/2014 4:46 PM MEAT BONER AND SLICER Inhaled Oxygen Concentration - - Weight 87.1 kg (192 lb) 11/04/2014 4:46 PM MEAT BONER AND SLICER Height 167.6 cm (5' 5.98 ) 11/04/2014 4:46 PM CS T Body Mass Index 31 11/04/2014 4:46 PM MEAT BONER AND SLICER documented in this encounter Functional Status Functional [...] Discharge Instructions * Discharge Instructions* Catherine Dubose, COMMERCIAL LOAN COORDINATOR-EXECUTIVE VICE PRESIDENT AND CHIEF FINANCIAL OFFICER - 11/04/2014 10:09 PM MEAT BONER AND SLICER Images from the original note were not [...] Document Reviewed: 05/06/2012 ExitCare?? Patient Information ??2014 Virobay. Strep Throat, Group A Streptococcus This is [...] Document Reviewed: 06/19/2009 ExitCare?? Patient Information ??2013 [employer]bay. Serum Potassium Measurement Potassium is an electrolyte [...] . Document Released: 08/24/2006 Document Re-Released: 08/06/2009 [employer] InternationalCare?? Patient Information ??2009 Virobay. BONER AND SLICER documented in this encounter Medications at Time [...] reviewed. Appropriate antibiotic prescribed during ED visit. BONER AND SLICER * Madyson Small RN - 11/04/2014 10:40 PM CST Patient discharging home. Follow up care reviewed. Prescriptions reviewed. Patient verbalized understanding. Madyson Small RN 11/04/2014 10:41 PM BONER AND SLICER * Madyson Small RN - 11/04/2014 10:04 PM CST Patient medicated per NOV. Madyson Small RN 11/04/2014 10:04 PM BONER AND SLICER * Cris Infante RN - 11/04/2014 9:28 PM CST IV established. Labs drawn and sent. Patient medicated per NOV. . Cris Infante RN 11/04/2014 9:28PM BONER AND SLICER * Madyson Small RN - 11/04/2014 9:00 PM CST Patient present to ED c/o of sore throat. Patient states she started felling sick two days with chills, and body aches. NETEZZA DEVELOPER at bedside. Will cont to monitor. Madyson Small RN 11/04/2014 9:01 PM BONER AND SLICER * Catherine Dubose, COMMERCIAL LOAN COORDINATOR-EXECUTIVE VICE PRESIDENT AND CHIEF FINANCIAL OFFICER - 11/04/2014 8:58 PM CST Provider contact with the patient: 11/04/2014 20:58 Datreion Deven Rivers [id number] [facility] EMERGENCY DEPARTMENT History Chief Complaint [...] 44.0-73.0 % Lymph 15.1 (*) 20.0-43.0 % [place] 12.3 5.0-13.0 % Eos 2.7 0.0-6.0 % Baso 0.4 0.0-2.0 % Immature Grans 0.4 0-1 % Neutro Abs 9.35 (*) 2.01-7.14 x10^9/L Lymph Abs 2.04 1.07-3.94 x10^9/L [place] Abs 1.67 (*) 0.26-1.07 x10^9/L Eosin Abs [...] mL/min/1.73m2 MONONUCLEOSIS SCREEN Result Value Ref Range [place] Test Negative Negative No orders to display [...] Final diagnoses: Streptococcal sore throat Hypokalemia Leukocytosis BONER AND SLICER documented in this encounter Plan of Treatment Not on file documented as of this encounter Procedures Procedure Name Priority Date/Time Associated Diagnosis Comments HCG URINE QUALITATIVE - POINT OF CARE Routine 11/04/2014 9:25 PM MEAT BONER AND SLICER STREP A SCREEN DIRECT W RFLX STREP A CULTURE STAT 11/04/2014 9:24 PM MEAT BONER AND SLICER MONONUCLEOSIS SCREEN STAT 11/04/2014 9:24 PM MEAT BONER AND SLICER CBC W AUTO DIFFERENTIAL STAT 11/04/2014 9:24 PM MEAT BONER AND SLICER BASIC METABOLIC PANEL (CALCIUM TOTAL) STAT 11/04/2014 9:24 PM MEAT BONER AND SLICER documented in this encounter Results * HCG URINE QUALITATIVE - POINT OF CARE (IP) (11/04/2014 9:25 PM MEAT BONER AND SLICER) HCG Qual Urine Negative Negative [facility] QC Verified Yes Yes [facility] POC T TESTING Urine specimen (specimen) URINE / Unknown 11/04/2014 9:25 PM MEAT BONER AND SLICER Catherine Dubose APRN-EXECUTIVE VICE PRESIDENT AND CHIEF FINANCIAL OFFICER LAB - POINT OF C ARE ORDERABLES [facility] [address] [phone] * MONONUCLEOSIS SCREEN (11/04/2014 9:24 PM MEAT BONER AND SLICER) Mononucleosis Screen Negative Negative 11/04/2014 9:50 PM MEAT BONER AND SLICER [facility] Blood BLOOD SPECIMEN / Unknown 11/04/2014 9:24 PM MEAT BONER AND SLICER 11/04/2014 9:27 PM MEAT BONER AND SLICER Catherine Dubose APRN-EXECUTIVE VICE PRESIDENT AND CHIEF FINANCIAL OFFICER LAB - CHEMISTRY ORDERABLES Performing Organization Address [facility] Co de Phone Number [facility] [address] [place] [address] * (ABNORMAL) STREP A SCREEN DIRECT W RFLX STREP A CULTURE (11/04/2014 9:24 PM MEAT BONER AND SLICER) Strep A Rapid Positive(A ) Negative 11/04/2014 9:[address] [facility] Microbiology ENTIRE THROAT (SURFACE REGION OF NECK) / Unknown 11/04/2014 9:24 PM MEAT BONER AND SLICER 11/04/2014 9:27 PM ME[employer]ER AND SLICER Catherine Dubose APRN-EXECUTIVE VICE PRESIDENT AND CHIEF FINANCIAL OFFICER LAB - MICROBIOLO GY ORDERABLES Performing Organization Address [facility] de Phone Number [facility] [address] [place] [phone] * (ABNORMAL) BASIC METABOLIC PANEL (CALCIUM TOTAL) (11/04/2014 9:24 PM MEAT BONER AND SLICER) Pathologist [facility] Glucose 81 74 - 106 mg/dL 11/04/2014 9:[address] [facility] Sodium 142 136 - 145 mmol/L 11/04/2014 9:[address] [facility] Potassium 3.3(L) 3.5 - 5.1 mmol/L 11/04/2014 9:[address] [facility] Chloride 110(H) 98 - 107 mmol/L 11/04/2014 9:[address] [facility] CO2 26 22 - 31 mmol/L 11/04/2014 9:[address] [facility] Calcium 8.8 8.5 - 10.1 mg/dL 11/04/2014 9:[address] [facility] Anion Gap 6 5 - 15 mmol/L 11/04/2014 9:[address] [facility] BUN 8 7 - 21 mg/dL 11/04/2014 9:[address] [facility] Creatinine 0.65 0.50 - 1.30 mg/dL 11/04/2014 9:[address] [facility] eGFR by MDRD >60 >60 mL/min/1.7 3m2 11/04/2014 9:[address] [facility] eGFR by MDRD >60 >60 mL/min/1.7 3m2 11/04/2014 9:[address] [facility] Blood BLOOD SPECIMEN / Unknown 11/04/2014 9:24 PM MEAT BONER AND SLICER 11/04/2014 9:27 PM MEAT BONER AND SLICER Catherine [place] COMMERCIAL LOAN COORDINATOR-EXECUTIVE VICE PRESIDENT AND CHIEF FINANCIAL OFFICER LAB - CHEMISTRY ORDERABLES Performing Organization Address City/State/[facility] Co de Phone Number [facility] [address] [place] [address] * (ABNORMAL) CBC W AUTO DIFFERENTIAL (11/04/2014 9:24 PM MEAT BONER AND SLICER) WBC 13.5(H) 4.4 - 10.7 x10^9/L 11/04/2014 9:[address] [facility] RBC 4.52 3.80 - 5.20 x10^12/L 11/04/2014 9:[address] [facility] Hemoglobin 12.2 12.0 - 15.6 gm/dL 11/04/2014 9:[address] [facility] Hematocrit 35.6(L) 35.9 - 45.5 % 11/04/2014 9:[address] [facility] MCV 78.8(L) 80.7 - 98.3 fl 11/04/2014 9:[address] [facility] MCH 27.0 26.7 - 34.0 pg 11/04/2014 9:[address] [facility] MCHC 34.3 30.8 - 35.9 gm/dL 11/04/2014 9:[address] [facility] Platelet Count 348 153 - 416 x10^9/L 11/04/2014 9:[address] [facility] RDW-CV 15.6(H) 12.1 - 14.9 % 11/04/2014 9:[address] [facility] MPV 8.9(L) 9.4 - 12.9 fl 11/04/2014 9:[address] [facility] Neutrophils % 69.1 44.0 - 73.0 % 11/04/2014 9:[address] [facility] Lymphocytes % 15.1(L) 20.0 - 43.0 % 11/04/2014 9:[address] [facility] Monocytes % 12.3 5.0 - 13.0 % 11/04/2014 9:[address] [facility] Eosinophils % 2.7 0.0 - 6.0 % 11/04/2014 9:[address] [facility] Basophils % 0.4 0.0 - 2.0 % 11/04/2014 9:[address] [facility] Immature Granulocytes 0.4 0 - 1 % 11/04/2014 9:[address] [facility] Neutrophil Absolute 9.35(H) 2.01 - 7.14 x10^9/L 11/04/2014 9:[address] [facility] Lymphocytes Absolute 2.04 1.07 - 3.94 x10^9/L 11/04/2014 9:[address] [facility] Monocytes Absolute 1.67(H) 0.26 - 1.07 x10^9/L 11/04/2014 9:[address] [facility] Eosinophils Absolute 0.37 0 - 0.47 x10^9/L 11/04/2014 9:[address] [facility] Basophils Absolute 0.06 0 - 0.08 x10^9/L 11/04/2014 9:[address] [facility] Immature Granulocytes Absolute 0.05 0.00 - 0.06 x10^9/L 11/04/2014 9:[address] [facility] Blood BLOOD SPECIMEN / Unknown 11/04/2014 9:24 PM MEAT BONER AND SLICER 11/04/2014 9:27 PM [facility] Catherine Dubose COMMERCIAL LOAN COORDINATOR-EXECUTIVE VICE PRESIDENT AND CHIEF FINANCIAL OFFICER LAB - HEMATOLOGY ORDERABLES Performing Organization Address [facility]/State/[facility] Co de Phone Number [facility] [address] [place], [place] [phone] documented in this encounter Visit Diagnoses Diagnosis Streptococcal sore throat Hypokalemia Hypopotassemia Leukocytosis Leukocytosis, unspecified Cough documented in this encounter Administered Medications Inactive Administered Medications - up to 3 most recent administrations Medication Order MAR Action Action Date Dose Rate Site 0.9% NaCl infusion at 1,000 mL/hr, Intravenous, ONCE, 1 dose, On 11/04/14 at 2130 $ Given 11/04/2014 9:23 PM MEAT BONER AND SLICER 1000 mL/hr clindamycin (CLEOCIN) IVPB 900 mg 900 mg, at 100 mL/hr, Intravenous, EVERY 8 HOURS, First dose on 11/04/14 at 211, Until Discontinued $ Given 11/04/2014 9:23 PM ME[employer]ONER AND SLICER 900 mg 100 mL /hr dexamethasone (DECADRON) injection 10 mg 10 mg, Intravenous, ONCE, 1 dose, On 11/04/14 at 2130, Make sure not first $ Given 11/04/2014 9:23 PM MEAT BONER AND SLICER 10 mg ketorolac (TORADOL) injection 30 mg 30 mg, Intravenous, ONCE, 1 dose, On 11/04/14 at 221 $ Given 11/04/2014 10:04 PM ME[employer] B[employer]ER AND SLICER 30 mg potassium chloride (KLOR-CON M) tablet 40 mEq 40 mEq, Oral, ONCE, 1 dose, On 11/04/14 at 221, Do not crush or chew. $ Given 11/04/2014 9:52 PM MEAT BONER AND SLICER 40 mEq documented in this encounter Active and Recently Administered Medications Times are shown in MEAT BONER AND SLICER. Scheduled Medication Order 11/02/2014 11/03/2014 11/04/2014 0.9% [...]
--- OUTSIDE RECORDS SUMMARY | 2024-09-25 20:09 | XMS_ITS | Encounter Summary ---
Author Organization [facility] Address [address] [facility] [place] [address] Care Team Providers Care Pouako Kura [place] Maori Name Role Phone Unavailable Primary Care Provider Unavailabl e Reason for Visit * Reason Comments Asthma difficulty breathing started today Encounter Details Date Type Department Care Team (Late st Contact Info) Description 01/04/2015 5:49 PM CDT - 01/04/2015 8:31 PM CDT Emergency ER at [facility] [address] [place] [address] [phone] Asthma exacerbation (HCC); Seasonal allergies Discharge Disposition: [...] ?? Air pollutants such as dust, household business initiatives manager, hair sprays, aerosol sprays, paint fumes, strong [...] Use unscented cleaning products. Use a vacuum belt cleaner with a HEPA filter if possible. [...] Document Reviewed: 04/11/2009 ExitCare?? Patient Information ??2013 [employer]. documented in this encounter Medications at Time [...] the patient: 01/04/2015 19:12 Datreion Deven Rivers [id number] [facility] EMERGENCY DEPARTMENT History Chief [...] Yellow, Dark Yellow Clarity UA Clear Specific [place] UA 1.021 1.005-1.030 pH UA 7.0 5.0-8.0 [...] OF CARE ORDERABLES [facility] POCT TESTING [address] [phone] * CULTURE URINE (01/04/2015 7:26 PM CDT) Culture <10,000 CFU/mL normal urogenital marco CHRYSTAL 01/06/2015 11:17 AM CDT [facility] MICROBIOLOGY Urine URINE SPECIMEN OBTAINED BY CLEAN CATCH PROCEDURE / Unknown 01/04/2015 7:26 PM CDT 01/04/2015 7:29 PM CDT Alia TEJEDA LAB - MICROBIOLOGY O RDERABLES [facility] MICROBIOLOGY [address] [place] [address], [facility] [phone] * (ABNORMAL) URINALYSIS ROUTINE W/REFLEX TO CULTURE (01/04/2015 7:26 PM CDT) Color UA Yellow Straw, Yellow, Dark Yellow 01/04/2015 7:36 PM CDT [facility] Clarity UA Clear 01/04/2015 7:36 PM CDT [facility] Specific [place] UA 1.021 1.005 - 1.030 01/04/2015 7:36 PM CDT [facility] pH UA 7.0 5.0 - 8.0 pH 01/04/2015 7:36 PM CDT [facility] Protein UA Negative Negative 01/04/2015 7:36 PM CDT [facility] Blood UA 3+(A) Negative 01/04/2015 7:36 PM CDT [facility] Leukocyte UA 2+(A) Negative 01/04/2015 7:36 PM CDT [facility] Nitrite UA Negative Negative 01/04/2015 7:36 PM CDT [facility] Glucose UA Negative Negative 01/04/2015 7:36 PM CDT [facility] Ketone UA Negative Negative 01/04/2015 7:36 PM CDT [facility] Bilirubin UA Negative Negative 01/04/2015 7:36 PM CDT [facility] Urobilinogen UA 1.0 0.1 - 1.0 EU/dL 01/04/2015 7:36 PM CDT [facility] WBC UA Auto 5-10(A) 0-2, 2-5 #/hpf 01/04/2015 7:36 PM CDT [facility] RBC UA Auto 5-10(A) 0-2, 2-5 #/hpf 01/04/2015 7:36 PM CDT [facility] Epithelial Cell UA Auto 5-10(A) 0-2, 2-5 #/hpf 01/04/2015 7:36 PM CDT [facility] Bacteria UA Auto 1+(A) None seen 01/04/2015 7:36 PM CDT [facility] Reflex Status Culture to follow 01/04/2015 7:36 PM CDT [facility] Urine URINE SPECIMEN OBTAINED BY CLEAN CATCH PROCEDURE / Unknown 01/04/2015 7:26 PM CDT 01/04/2015 7:29 PM CDT Alia TEJEDA LAB - URINALYSIS ORD ERABLES [facility] [address] [place], [place] [phone] documented in this encounter Visit Diagnoses Diagnosis [...] 01/04/15 at 1945 1924 ($ Given - Populis ider: Carlee Neves RN) PRN Medication Order 01/02/2015 01/03/2015 01/04/2015 albuterol (PROVENTIL;VENTOLIN) (5 MG/ML) 0.5% nebulizer solution 2.5 mg (CANCELED)(Linked Group 1) 2.5 mg, Inhalation, PRN, Shortness of Breath, Wheezing, Starting on Emma 01/04/15 at 1912, Until Emma 01/04/15 at 2130, Dilute prior to administration via nebulization. 1942 ($ Marro.ws - Prov ider: Benny Fraga RCP) ipratropium (ATROVENT) nebulizer solution 0.5 mg (CANCELED)(Linked Group 1) 0.5 mg, Inhalation, PRN, Shortness of Breath, Wheezing, Starting on Emma 01/04/15 at 1912, Until Emma 01/04/15 at 2130 1942 (Authentic8 - Populis ider: Benny Fraga RCP) Linked Groups Order [...]
--- OUTSIDE RECORDS SUMMARY | 2024-09-25 20:09 | XMS_ITS | Encounter Summary ---
Author Organization [facility] Address [address] [place] [address] Care Team Providers Care Hot Packer Name Role Phone Unavailable Primary Care Provider Unavailabl e Reason for Visit * Reason Comments Dizziness dizzy with nausea an d back pain for one week/no dysuria/denies Encounter Details Date Type Department Care Team (Late st Contact Info) Description 03/08/2016 4:40 PM CDT - 03/08/2016 6:10 PM CDT Emergency ER at [facility] [place] [facility] [address] [place] [id number] Eber Mariscal MD [address] [phone] Dizziness; Lumbar strain, initial encounter [...] circulation or increase swelling. ?? Only take [id number] or prescription medicines for pain, discomfort, or [...] Document Reviewed: 09/04/2012 ExitCare?? Patient Information ??2014 [employer]. Dizziness Dizziness is a common problem. It [...] is fine. ?? 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 Patient Information ??2013 [employer]. documented in this encounter Medications at Time [...] the patient: 03/08/2016 16:41 Datreion Deven Rivers [id number] [facility] EMERGENCY DEPARTMENT History Chief Complaint [...] 51.7 44.0-73.0 % Lymph 34.2 20.0-43.0 % [place] 10.0 5.0-13.0 % Eos 3.0 0.0-6.0 % Baso 0.8 0.0-2.0 % Immature Grans 0.3 0-1 % Neutro Abs 3.22 2.01-7.14 x10E9/L Lymph Abs 2.13 1.07-3.94 x10E9/L [place] Abs 0.62 0.26-1.07 x10E9/L Eosin Abs 0.19 [...] Yellow, Dark Yellow Clarity UA Clear Specific [place] UA 1.021 1.005-1.030 pH UA 6.5 5.0-8.0 [...] to follow-up with: Call in 1 day [facility] [address] [place] [address] Call in 1 day Disposition: Discharged I [...] POINT OF CARE ORDERABLES [facility] POCT TESTING [address] [place] [address] * EKG 12-LEAD (03/08/2016 5:44 PM CDT) Ventricular Rate 70 BPM [facility] MUSE Atrial Rate 70 BPM [facility] P-R Interval 154 ms [facility] QRS Duration ms 74 ms [facility] Q-T Interval ms 388 ms [facility] QTC Calculation (Bezet) 419 ms [facility] MUSE Calculated P Brick 38 degrees [facility] MUSE Calculated R Brick 32 degrees [facility] MUSE Calculated T Brick 20 degrees [facility] MUSE Interpretation EKG NORMAL SINUS RHYTHM NORMAL ECG Confirmed by MD Destini, Tj ([id number]) on 03/09/2016 8:00:26 AM [facility] MUSE 03/08/2016 5:44 PM CDT 03/09/2016 8:00 AM CDT Eber Mariscal MD ECG ORDERABLES Performing Organization Address [facility] Co de Phone Number [facility] MUSE * CULTURE URINE (03/08/2016 5:41 PM CDT) Culture <10,000 CFU/mL urogenital marco CHRYSTAL 03/10/2016 11:54 AM CDT [facility] MICROBIOLOGY Urine URINE SPECIMEN OBTAINED BY CLEAN CATCH PROCEDURE / Unknown 03/08/2016 5:41 PM CDT 03/08/2016 5:53 PM CDT Eber Mariscal MD LAB - MICROBIOLOGY O RDERABLES Performing Organization Address [facility] Co de Phone Number [facility] MICROBIOLOGY [address] [place], [address] [phone] * (ABNORMAL) URINALYSIS ROUTINE W/REFLEX TO CULTURE (03/08/2016 5:41 PM CDT) Color UA Yellow Straw, Yellow, Dark Yellow 03/08/2016 6:05 PM CDT [facility] Clarity UA Clear 03/08/2016 6:05 PM CDT [facility] Specific [place] UA 1.021 1.005 - 1.030 03/08/2016 6:05 PM CDT [facility] pH UA 6.5 5.0 - 8.0 pH 03/08/2016 6:05 PM CDT [facility] Protein UA Negative Negative 03/08/2016 6:05 PM CDT [facility] Blood UA Negative Negative 03/08/2016 6:05 PM CDT [facility] Leukocyte UA 1+(A) Negative 03/08/2016 6:05 PM CDT [facility] Nitrite UA Negative Negative 03/08/2016 6:05 PM CDT [facility] Glucose UA Negative Negative 03/08/2016 6:05 PM CDT [facility] Ketone UA Negative Negative 03/08/2016 6:05 PM CDT [facility] Bilirubin UA Negative Negative 03/08/2016 6:05 PM CDT [facility] Urobilinogen UA 0.2 0.1 - 1.0 EU/dL 03/08/2016 6:05 PM CDT [facility] WBC UA Auto 5-10(A) 0-2, 2-5 # /hpf 03/08/2016 6:05 PM CDT [facility] RBC UA Auto 2-5 0-2, 2-5 # /hpf 03/08/2016 6:05 PM CDT [facility] Epithelial Cell UA Auto 2-5 0-2, 2-5 # /hpf 03/08/2016 6:05 PM CDT [facility] Reflex Status Culture to follow 03/08/2016 6:05 PM T [facility] Urine URINE SPECIMEN OBTAINED BY CLEAN CATCH PROCEDURE / Unknown 03/08/2016 5:41 PM CDT 03/08/2016 5:53 PM CDT Eber Mariscal MD LAB - URINALYSIS ORD ERABLES [facility] [address] [place] [address] * (ABNORMAL) COMPREHENSIVE METABOLIC PANEL (03/08/2016 5:22 PM CDT) Glucose 85 74 - 106 mg/dL 03/08/2016 5:47 PM CDT [facility] Sodium 140 136 - 145 mmol/L 03/08/2016 5:47 PM CDT [facility] Potassium 3.5 3.5 - 5.1 mmol/L 03/08/2016 5:47 PM CDT [facility] Chloride 109(H) 98 - 107 mmol/L 03/08/2016 5:47 PM CDT [facility] CO2 27 22 - 31 mmol/L 03/08/2016 5:47 PM CDT [facility] Calcium 8.2(L) 8.5 - 10.1 mg/dL 03/08/2016 5:47 PM CDT [facility] Anion Gap 4(L) 5 - 20 mmol/L 03/08/2016 5:47 PM CDT [facility] BUN 8 7 - 21 mg/dL 03/08/2016 5:47 PM CDT [facility] Creatinine 0.59 0.50 - 1.30 mg/dL 03/08/2016 5:47 PM CDT [facility] Alkaline Phosphatase 66 38 - 126 U/L 03/08/2016 5:47 PM CDT [facility] ALT 16 13 - 61 U/L 03/08/2016 5:47 PM CDT [facility] Comment:See reference range update AST 11 5 - 40 U/L 03/08/2016 5:47 PM CDT [facility] Protein Total 7.0 6.4 - 8.2 gm/dL 03/08/2016 5:47 PM CDT [facility] Albumin 3.4 3.4 - 5.0 gm/dL 03/08/2016 5:47 PM CDT [facility] Bilirubin Total 0.3 0.2 - 1.0 mg/dL 03/08/2016 5:47 PM CDT [facility] eGFR by MDRD >60 >60 mL/min/1.7 3m2 03/08/2016 5:47 PM CDT [facility] eGFR by MDRD >60 >60 mL/min/1.7 3m2 03/08/2016 5:47 PM CDT [facility] Blood BLOOD SPECIMEN / Unknown 03/08/2016 5:22 PM CDT 03/08/2016 5:28 PM CDT Eber Mariscal MD LAB - CHEMISTRY JOANNA YUNG [facility] Organization Address City/State/ZIP Co de Phone Number [facility] [address] [place] [address] * NT-PRO BNP (03/08/2016 5:22 PM CDT) NT-proBNP 64.0 <300.0 pg/mL 03/08/2016 5:50 PM CDT [facility] Blood BLOOD SPECIMEN / Unknown 03/08/2016 [...] fibrillation. Eber Mariscal MD [facility] Organization Address City/State/ZIP Co de Phone Number [facility] [address] [place] [address] * (ABNORMAL) CBC W AUTO DIFFERENTIAL (03/08/2016 5:22 PM CDT) [facility] WBC 6.2 4.4 - 10.7 x10E9/L 03/08/2016 5:30 PM CDT [facility] WBC Corrected x10E9/L 03/08/2016 5:30 PM CDT [facility] RBC 4.34 3.80 - 5.20 x10E12/L 03/08/2016 5:30 PM CDT [facility] Hemoglobin 11.0(L) 12.0 - 15.6 gm/dL 03/08/2016 5:30 PM CDT [facility] Hematocrit 33.2(L) 35.9 - 45.5 % 03/08/2016 5:30 PM CDT [facility] MCV 76.5(L) 80.7 - 98.3 fl 03/08/2016 5:30 PM CDT [facility] MCH 25.3(L) 26.7 - 34.0 pg 03/08/2016 5:30 PM CDT [facility] MCHC 33.1 30.8 - 35.9 gm/dL 03/08/2016 5:30 PM CDT [facility] Platelet Count 358 153 - 416 x10E9/L 03/08/2016 5:30 PM T [facility] RDW-CV 17.2(H) 12.1 - 14.9 % 03/08/2016 5:30 PM CDT [facility] MPV 9.5 9.4 - 12.9 fl 03/08/2016 5:30 PM CDT [facility] Neutrophils % 51.7 44.0 - 73.0 % 03/08/2016 5:[address] [facility] Lymphocytes % 34.2 20.0 - 43.0 % 03/08/2016 5:30 PM CDT [facility] Monocytes % 10.0 5.0 - 13.0 % 03/08/2016 5:30 PM CDT [facility] Eosinophils % 3.0 0.0 - 6.0 % 03/08/2016 5:30 PM CDT [facility] Basophils % 0.8 0.0 - 2.0 % 03/08/2016 5:30 PM CDT [facility] Immature Granulocytes 0.3 0 - 1 % 03/08/2016 5:[facility] Neutrophil Absolute 3.22 2.01 - 7.14 x10E9/L 03/08/2016 5:30 PM CDT [facility] Lymphocytes Absolute 2.13 1.07 - 3.94 x10E9/L 03/08/2016 5:30 PM CDT [facility] Monocytes Absolute 0.62 0.26 - 1.07 x10E9/L 03/08/2016 5:30 PM CDT [facility] Eosinophils Absolute 0.19 0 - 0.47 x10E9/L 03/08/2016 5:30 PM CDT [facility] Basophils Absolute 0.05 0 - 0.08 x10E9/L 03/08/2016 5:30 PM CDT [facility] Immature Granulocytes Absolute 0.02 0.00 - 0.06 x10E9/L 03/08/2016 5:30 PM CDT [facility] nRBC Auto 0 /100 WBC 03/08/2016 5:30 PM CDT [facility] Blood BLOOD SPECIMEN / Unknown 03/08/2016 5:22 PM CDT 03/08/2016 5:28 PM CDT Eber Mariscal MD LAB - HEMATOLOGY ORD ERABLES Performing Organization Address City/State/[facility] Co de Phone Number [facility] [address] [place] [address] documented in this encounter Visit Diagnoses Diagnosis Dizziness Dizziness and giddiness Lumbar strain, initial encounter documented in this encounter
--- OUTSIDE RECORDS SUMMARY | 2024-09-25 20:09 | XMS_ITS | Encounter Summary ---
Author Organization [facility] Address [address] [place] [address] Care Team Providers Care Magazine Editor Name Role Phone Unavailable Primary Care Provider Unavailabl e Reason for Visit * Reason Comments Pain Urinary Burning with urinati on since this am Pain Head Reports h/o migraine s. C/O headache and lightheaded. Encounter Details Date Type Department Care Team (Late st Contact Info) Description 09/28/2016 8:21 PM OR SCRUB TECH - 09/28/2016 9:43 PM OR SCRUB TECH Emergency ER at [facility] [place] [address] [place] [address] [place] [address] [place] [address] Acute cystitis without hematuria (Primary [...] Comments Blood Pressure 111/68 09/28/2016 8:43 PM OR SCRUB TECH Pulse 96 09/28/2016 8:50 PM OR SCRUB TECH Temperature 36.6 ??C (97.9 ??F) 09/28/2016 8:07 PM CS T Respiratory Rate 13 09/28/2016 8:50 PM OR SCRUB TECH Oxygen Saturation 100% 09/28/2016 8:50 PM OR SCRUB TECH Inhaled Oxygen Concentration - - Weight 85.7 kg (189 lb) 09/28/2016 8:41 PM OR SCRUB TECH Height 162.6 cm (5' 4 ) 09/28/2016 8:41 PM OR SCRUB TECH Body Mass Index 32.44 09/28/2016 8:41 PM OR SCRUB TECH documented in this encounter Functional Status Functional [...] Ayush Sutherland RN - 09/28/2016 9:43 PM OR SCRUB TECH Images from the original note were not [...] Document Reviewed: 03/24/2013 ExitCare?? Patient Information ??2014 [employer]. This information is not intended to replace advice given to you by your health care provider. Make sure you discuss any questions you have with your health care provider. SCRUB TECH documented in this encounter Medications at Time [...] with steady gait in no apparent distress. SCRUB TECH * Ayush Sutherland RN - 09/28/2016 8:45 PM CST Pt presents to ED with complaint of burning while urinating x1 day and pt also reports a headache with lightheadedness and nausea x4 days. Pt denies any blood in urine. Pt reports a history of UTIs and kidney stones. Pt denies and diarrhea, fever, or chills. SCRUB TECH * Jeanette Russell MD - 09/28/2016 8:41 PM CST Provider contact with the patient: 09/28/2016 20:41 Jumana Rivers [id number] [facility] [...] Yellow, Dark Yellow Clarity UA Clear Specific [place] UA 1.028 1.005 - 1.030 pH UA [...] to follow-up with: [facility] [address] [facility] [address] Schedule an appointment as soon as possible [...] and complete. Dr. Russell, 09/28/2016 9:03 PM SCRUB TECH documented in this encounter Plan of Treatment Not on file documented as of this encounter Procedures Procedure Name Priority Date/Time Associated Diagnosis Comments URINALYSIS REFLEX MICROSCOPIC REFLEX CULTURE STAT 09/28/2016 8:15 PM OR SCRUB TECH HCG URINE QUALITATIVE - POINT OF CARE STAT 09/28/2016 8:15 PM OR SCRUB TECH CULTURE URINE STAT 09/28/2016 8:15 PM OR SCRUB TECH documented in this encounter Results * CULTURE URINE (09/28/2016 8:15 PM OR SCRUB TECH) Culture 10,000-50,000 CFU/mL urogenital marco CHRYSTAL 09/30/2016 10:38 AM OR SCRUB TECH [facility] MICROBIOLOGY Urine URINE SPECIMEN OBTAINED BY CLEAN CATCH PROCEDURE / Unknown 09/28/2016 8:15 PM OR SCRUB TECH 09/28/2016 8:19 PM OR SCRUB TECH Jeanette Russell MD LAB - MICROBIOLOGY O RDERABLES [facility] MICROBIOLOGY [address] [place] [address], [facility] [phone] * HCG URINE QUALITATIVE - POINT OF CARE (IP) (09/28/2016 8:15 PM OR SCRUB TECH) HCG Qual Urine Negative Negative [facility] POCT TESTING QC Verified Yes Yes [facility] POC T TESTING Urine URINE / Unknown 09/28/2016 8 :15 PM OR SCRUB TECH Jeanette Russell MD LAB - POINT OF CARE ORDERABLES [facility] POCT TESTING [address] [phone] * (ABNORMAL) URINALYSIS ROUTINE W/REFLEX TO CULTURE (09/28/2016 8:15 PM OR SCRUB TECH) Color UA Yellow Straw, Yellow, Dark Yellow 09/28/2016 8:24 PM OR SCRUB TECH [facility] Clarity UA Clear 09/28/2016 8:24 PM OR SCRUB TECH [facility] Specific [place] UA 1.028 1.005 - 1.030 09/28/2016 8:24 PM OR SCRUB TECH [facility] pH UA 6.5 5.0 - 8.0 pH 09/28/2016 8:24 PM OR SCRUB TECH [facility] Protein UA Trace(A) Negative 09/28/2016 8:24 PM OR SCRUB TECH [facility] Blood UA Negative Negative 09/28/2016 8:24 PM OR SCRUB TECH [facility] Leukocyte UA 1+(A) Negative 09/28/2016 8:24 PM OR SCRUB TECH [facility] Nitrite UA Negative Negative 09/28/2016 8:24 PM OR SCRUB TECH [facility] Glucose UA Negative Negative 09/28/2016 8:24 PM OR SCRUB TECH [facility] Ketone UA Negative Negative 09/28/2016 8:24 PM OR SCRUB TECH [facility] Bilirubin UA Negative Negative 09/28/2016 8:24 PM OR SCRUB TECH [facility] Urobilinogen UA 1.0 0.1 - 1.0 EU/dL 09/28/2016 8:24 PM OR SCRUB TECH [facility] WBC UA Auto 5-10(A) 0-2, 2-5 # /hpf 09/28/2016 8:24 PM OR SCRUB TECH [facility] RBC UA Auto 5-10(A) 0-2, 2-5 # /hpf 09/28/2016 8:24 PM OR SCRUB TECH [facility] Epithelial Cell UA Auto 2-5 0-2, 2-5 # /hpf 09/28/2016 8:24 PM OR SCRUB TECH [facility] Bacteria UA Auto 1+(A) None seen 09/28/19 8:24 PM OR SCRUB TECH [facility] Reflex Status Culture to follow 09/28/2016 8:24 PM OR SCRUB TECH [facility] Urine URINE SPECIMEN OBTAINED BY CLEAN CATCH PROCEDURE / Unknown 09/28/2016 8:15 PM OR SCRUB TECH 09/28/2016 8:19 PM OR SCRUB TECH Jeanette Russell MD LAB - URINALYSIS ORD ERABLES [facility] [address] [place] [address] documented in this encounter Visit Diagnoses Diagnosis [...] Recently Administered Medications Times are shown in OR SCRUB TECH. PRN Medication Order 09/26/2016 09/27/2016 09/28/2016 acetaminophen (TYLENOL) tablet 650 mg 650 mg, Oral, EVERY 4 HOURS PRN, Fever, Administer for temperature greater than 100.3 F or pain, Starting on 09/28/16 at 2004, Until 09/28/16 at 2243 documented in this encounter
--- OUTSIDE RECORDS SUMMARY | 2024-09-25 20:09 | XMS_ITS | Encounter Summary ---
Author Organization [facility] Address [address] [facility] [place] [address] Care Team Providers Care Hot Dip Galvanizer Name Role Phone Unavailable Primary Care Provider Unavailabl e Reason for Visit * Reason Comments [place] Eye c/o pinkeye left eye x 3 days. Redness, itching, drainage. Encounter Details Date Type Department Care Team (Late st Contact Info) Description 11/30/2013 12:23 PM CDT - 11/30/2013 1:26 PM CDT Emergency ER at [facility] [address] [place] [address] Niharika Lobo, ANTENNA INSTALLER-WINDOWS SERVER ENGINEER [address] [place] [address] [place] eye (Primary Dx) Discharge Disposition: Home or [...] Discharge Instructions * Discharge Instructions* Niharika Lobo, ANTENNA INSTALLER-WINDOWS SERVER ENGINEER - 11/30/2013 12:31 PM CDT Images from [...] Document Reviewed: 06/02/2009 ExitCare?? Patient Information ??2013 [employer]. * Discharge Instructions* Document, Scanned - 12/01/2013 [...] the patient: 11/30/2013 12:24 Datreion Deven Rivers [id number] [facility] EMERGENCY DEPARTMENT History Chief Complaint Patient presents with ??? [place] Eye c/o pinkeye left eye x 3 [...] 23 y/o female o/w healthy works at [employer]- redness of eye, injected with d/c treat as conjunctivitis ED Course Medical Decision Making I have reviewed the: Nursing Notes and Vitals. I have interpreted the following results: Oxygen Saturation. Pt stable while in the ER Orders Placed This Encounter ??? sulfacetamide (BLEPH-10) 10 % ophthalmic solution Clinical Impression Final diagnoses: [place] eye (Primary) documented in this encounter Miscellaneous Notes * Miscellaneous Scans - Document, Scanned - 12/01/2013 11:48 PM CDT * Miscellaneous Scans - Document, Scanned - 12/01/2013 10:42 PM CDT * Miscellaneous Scans - Document, Scanned - 12/01/2013 8:17 PM CDT documented in this encounter Plan of Treatment Not on file documented as of this encounter Visit Diagnoses Diagnosis [place] eye- Primary Other mucopurulent conjunctivitis documented in this encounter
--- OUTSIDE RECORDS SUMMARY | 2024-09-25 20:09 | XMS_ITS | Encounter Summary ---
Author Organization [facility] Address [address] [facility] [place] [address] Care Team Providers Care Chief Engineer Drilling And Recovery Name Role Phone Unavailable Primary Care Provider Unavailabl e Reason for Visit * Reason Comments Sore Throat ST since yesterday m [place] Encounter Details Date Type Department Care Team (Late st Contact Info) Description 04/13/2015 12:47 PM CDT - 04/13/2015 2:13 PM CDT Emergency ER at [facility] [address] [place] [address] Tonsillitis with exudate Discharge Disposition: Home [...] Discharge Instructions * Discharge Instructions* Criss March, BLOCKING MACHINE OPERATOR-BACK HAND - 04/13/2015 1:32 PM CDT Images from [...] Document Reviewed: 10/23/2011 ExitCare?? Patient Information ??2015 [facility]. This information is not intended to replace [...] the patient: 04/13/2015 12:56 Datreion Deven Rivers [id number] [facility] EMERGENCY [...] patient to follow-up with: Tj Jimenez MD [facility] [place] [address] Disposition: Discharged I have reviewed the information recorded by the scribe and agree with its accuracy and contents--Mariana March 04/13/2015 1:46 PM Transcribed by Mckenzie Ricks acting scribe on behalf of MRAIANA March 04/13/2015 12:56 PM documented in this [...] Group A CHRYSTAL 04/15/2015 3:45 AM CDT [facility] Microbiology ENTIRE THROAT (SURFACE REGION OF NECK) / Unknown 04/13/2015 1:11 PM CDT 04/13/2015 1:14 PM CDT Criss March [facility] - MICROBIOLOGY ORDERABLES Performing Organization Address City/[facility]/ZIP Co de Phone Number [facility] [address] [place] [address], [facility] [phone] * STREP A SCREEN DIRECT W RFLX STREP A CULTURE (04/13/2015 1:11 PM CDT) Strep A Rapid Negative Negative 04/13/2015 1:24 PM CDT [facility] Microbiology ENTIRE THROAT (SURFACE REGION OF NECK) / Unknown 04/13/2015 1:11 PM CDT 04/13/2015 1:14 PM CDT Narrative [facility] - 04/13/2015 1:24 PM CDT Test has reflexed to a Strep A culture. Criss March [facility] - MICROBIOLOGY ORDERABLES [facility] [address] [place] [address] documented in this encounter Visit Diagnoses Diagnosis Tonsillitis with exudate Acute tonsillitis documented in this encounter
--- OUTSIDE RECORDS SUMMARY | 2024-09-25 20:09 | XMS_ITS | Encounter Summary ---
Author Organization [facility] Address [address] [facility] [place] [address] Care Team Providers Care Alpine Patroller Name Role Phone Unavailable Primary Care Provider Unavailabl e Reason for Visit * Reason Comments Pain Flank c/o bilat flank pain w/ radiation rt groin since yesterday. Dysuria, urgency. Hx kidney stones. Encounter Details Date Type Department Care Team (Late st Contact Info) Description 03/18/2016 5:03 PM CDT - 03/18/2016 7:54 PM CDT Emergency ER at [facility] [address] [place] [address] [place] [address] [facility] [place] [address] Hematuria; Screen for STD (sexually [...] Discharge Instructions * Discharge Instructions* Catherine Dubose, SENIOR TRAINING SPECIALIST-SCOURING TRAIN OPERATOR CHIEF - 03/18/2016 7:35 PM CDT Images from [...] clear or pale yellow. ?? Only take dgyl-vch-gqrbfzd or prescription medicines as directed by your [...] Document Reviewed: 04/07/2013 ExitCare?? Patient Information ??2014 [employer]. Hematuria, Adult Hematuria (blood in your urine) [...] may irritate the prostate. ?? Only take dgyr-ump-qalrphg or prescription medicines for pain, discomfort, or [...] Document Reviewed: 04/12/2009 ExitCare?? Patient Information ??2013 [employer]. Sexually Transmitted Disease Sexually transmitted disease (STD) [...] start to feel better. ?? Only take nnck-mte-huupdqj or prescription medicines for pain, discomfort, or [...] Document Reviewed: 11/21/2011 ExitCare?? Patient Information ??2014 [employer]. Dysuria Dysuria is the medical term for [...] may irritate the prostate. ?? Only take btdi-qht-lxnmden or prescription medicines for pain, discomfort, or [...] Document Reviewed: 03/29/2009 ExitCare?? Patient Information ??2014 [employer]. Hypokalemia Hypokalemia means that the amount of [...] kiwi, oranges, tomatoes, asparagus, and potatoes. ?? Clio and tomato juices. ?? Red meats. ?? [...] Document Reviewed: 02/24/2014 ExitCare?? Patient Information ??2015 [employer]. This information is not intended to replace [...] For this patient encounter, I reviewed the TRANSFER DRIVER or PA documentation, procedures (if done), treatment plan, and medical decision making; and I had opvf-xa-lsun time with this patient. I have conducted an independent evaluation of this patient. Refer to the TRANSFER DRIVER/PA chart for further details. Physical Exam: Constitutional: [...] the following: Color UA Dulce (*) Specific [place] UA >1.030 (*) Protein UA 1+ (*) [...] Has hx of kidneystones. * Catherine Dubose, NEELAM-SCOURING TRAIN OPERATOR CHIEF - 03/18/2016 5:04 PM CDT Provider contact with the patient: 03/18/2016 17:04 Datreion Deven Rivers [id number] [facility] EMERGENCY DEPARTMENT History [...] 55.1 44.0-73.0 % Lymph 29.6 20.0-43.0 % Weber 12.2 5.0-13.0 % Eos 2.1 0.0-6.0 % Baso 0.7 0.0-2.0 % Immature Grans 0.3 0-1 % Neutro Abs 3.98 2.01-7.14 x10E9/L Lymph Abs 2.14 1.07-3.94 x10E9/L Weber Abs 0.88 0.26-1.07 x10E9/L Eosin Abs 0.15 0-0.47 x10E9/L Baso Abs 0.05 0-0.08 x10E9/L Immature Grans (Abs) 0.02 0.00-0.06 x10E9/L NRBC Auto 0 /100 WBC URINALYSIS ROUTINE W/REFLEX TO CULTURE Result Value Ref Range Color UA Dulce (Abnormal) Straw, Yellow, Dark Yellow Clarity UA Cloudy Specific [place] UA >1.030 (H) 1.005-1.030 pH UA 5.5 [...] Test Negative Negative 03/18/2016 8:37 PM CDT [facility] Microbiology ENTIRE VAGINA / Unknown 03/18/2016 7:35 PM CDT 03/18/2016 8:17 PM CDT Catherine Dubose SENIOR TRAINING SPECIALIST-SCOURING TRAIN OPERATOR CHIEF LAB - MICROBIOLO GY ORDERABLES Performing Organization Address City/State/[facility] Co de Phone Number [facility] [address] [place], [place] [id number] * CHLAMYDIA + GC AMPLIFIED PROBE (03/18/2016 7:35 PM CDT) Chlamydia Amplified Probe Negative Negative 03/19/2016 10:11 AM CDT [facility] GC Amplified Probe Negative Negative 03/19/2016 10:11 AM CDT [facility] Microbiology ENTIRE ENDOCERVIX / Unknown 03/18/2016 7:35 PM CDT 03/18/2016 8:17 PM CDT Narrative [facility] - 03/19/2016 10:11 AM CDT Results based on detection/no detection of ribosomal RNA by amplified method. Catherine Mary Anne Dubose SENIOR TRAINING SPECIALIST-SCOURING TRAIN OPERATOR CHIEF LAB - MICROBIOLO GY ORDERABLES [facility] [address] [place], [place] [address], [facility] [phone] * CT RENAL STONE PROTOCOL (NO IV [...] CARE (IP) (03/18/2016 4:16 PM CDT) Pathologist [facility] HCG Qual Urine Negative Negative [facility] PO[facility] TEST[facility] QC Verified Yes Yes [facility] POC T TESTING Urine specimen (specimen) URINE / Unknown 03/18/2016 4:16 PM CDT Jerrod Mtz DO LAB - POINT OF CARE ORDERABLES Performing Organization Address [facility] Co de Phone Number [facility] POCT TESTING [address] [place] [address] * HCG URINE QUALITATIVE - POINT OF CARE (IP) (03/18/2016 4:15 PM CDT) Pathologist [facility] HCG Qual Urine Negative Negative [facility] POCT TESTING QC Verified Yes Yes [facility] POC T TESTING Urine specimen (specimen) URINE / Unknown 03/18/2016 4:15 PM CDT Jerrod Mtz DO LAB - POINT OF CARE ORDERABLES Performing Organization Address [facility] Co de Phone Number [facility] POCT TEST[facility] [address] [place] [address] * CULTURE URINE (03/18/2016 2:39 PM CDT) [facility] Culture >100,000 CFU/mL urogenital marco CHRYSTAL 03/20/2016 8:26 AM CDT [facility] Urine URINE SPECIMEN OBTAINED BY CLEAN CATCH PROCEDURE / Unknown 03/18/2016 2:39 PM CDT 03/18/2016 2:46 PM CDT Jerrod Mtz DO LAB - MICROBIOLOGY O RDERABLES [facility] [address] [place], [place] [address], [facility] [phone] * (ABNORMAL) URINALYSIS ROUTINE W/REFLEX TO CULTURE (03/18/2016 2:39 PM CDT) Color UA Dulce(A) Straw, Yellow, Dark Yellow 03/18/2016 3:10 PM CDT [facility] Clarity UA Cloudy 03/18/2016 3:10 PM CDT [facility] Specific [place] UA >1.030(H) 1.005 - 1.030 03/18/2016 3:10 PM CDT [facility] pH UA 5.5 5.0 - 8.0 pH 03/18/2016 3:10 PM CDT [facility] Protein UA 1+(A) Negative 03/18/2016 3:10 PM CDT [facility] Blood UA 3+(A) Negative 03/18/2016 3:10 PM CDT [facility] Leukocyte UA 1+(A) Negative 03/18/2016 3:10 PM CDT [facility] Nitrite UA Negative Negative 03/18/2016 3:10 PM CDT [facility] Glucose UA Negative Negative 03/18/2016 3:10 PM CDT [facility] Ketone UA 2+(A) Negative 03/18/2016 3:10 PM CDT [facility] Bilirubin UA Negative Negative 03/18/2016 3:10 PM CDT [facility] Urobilinogen UA 1.0 0.1 - 1.0 EU/dL 03/18/2016 3:10 PM CDT [facility] WBC UA Auto 10-20(A) 0-2, 2-5 # /hpf 03/18/2016 3:10 PM CDT [facility] RBC UA Auto >100(A) 0-2, 2-5 # /hpf 03/18/2016 3:10 PM CDT [facility] Epithelial Cell UA Auto 10-20(A) 0-2, 2-5 # /hpf 03/18/2016 3:10 PM CDT [facility] Hyaline Casts UA Auto 2-5(A) 0 - 2 #/lpf 03/18/2016 3:10 PM CDT [facility] Reflex Status Culture to follow 03/18/2016 3:10 PM CDT [facility] Urine URINE SPECIMEN OBTAINED BY CLEAN CATCH PROCEDURE / Unknown 03/18/2016 2:39 PM CDT 03/18/2016 2:46 PM CDT Jerrod Mtz DO LAB - URINALYSIS ORD ERABLES [facility] [address] [place], [place] [phone] * (ABNORMAL) COMPREHENSIVE METABOLIC PANEL (03/18/2016 2:25 PM CDT) Glucose 87 74 - 106 mg/dL 03/18/2016 2:51 PM CDT [facility] Sodium 139 136 - 145 mmol/L 03/18/2016 2:51 PM CDT [facility] Potassium 3.3(L) 3.5 - 5.1 mmol/L 03/18/2016 2:51 PM CDT [facility] Chloride 105 98 - 107 mmol/L 03/18/2016 2:51 PM CDT [facility] CO2 25 22 - 31 mmol/L 03/18/2016 2:51 PM CDT [facility] Calcium 8.8 8.5 - 10.1 mg/dL 03/18/2016 2:51 PM CDT [facility] Anion Gap 9 5 - 20 mmol/L 03/18/2016 2:51 PM CDT [facility] BUN 10 7 - 21 mg/dL 03/18/2016 2:51 PM CDT [facility] Creatinine 0.62 0.50 - 1.30 mg/dL 03/18/2016 2:51 PM CDT [facility] Alkaline Phosphatase 71 38 - 126 U/L 03/18/2016 2:51 PM CDT [facility] ALT 15 13 - 61 U/L 03/18/2016 2:51 PM CDT [facility] Comment:See reference range update AST [...] >60 mL/min/1.7 3m2 03/18/2016 2:51 PM CDT [facility] Blood BLOOD SPECIMEN / Unknown 03/18/2016 2:25 PM CDT 03/18/2016 2:33 PM CDT Regino Dill MD LAB - CHEMISTRY JOANNA YUNG [facility] Organization Address City/State/[facility] Co de Phone Number [facility] [address] [place] [address] * (ABNORMAL) CBC W AUTO [...] - 416 x10E9/L 03/18/2016 2:36 PM CDT [facility] RDW-CV 17.8(H) 12.1 - 14.9 % 03/18/2016 2:36 PM CDT [facility] MPV 9.4 9.4 - 12.9 fl 03/18/2016 2:36 PM T [facility] Neutrophils % 55.1 44.0 - 73.0 % 03/18/2016 2:36 PM CDT [facility] Lymphocytes % 29.6 20.0 - 43.0 % 03/18/2016 2:36 PM T [facility] Monocytes % 12.2 5.0 - 13.0 % 03/18/2016 2:36 PM T [facility] Eosinophils % 2.1 0.0 - 6.0 % 03/18/2016 2:36 PM T [facility] Basophils % 0.7 0.0 - 2.0 % 03/18/2016 2:36 PM T [facility] Immature Granulocytes 0.3 0 - 1 % 03/18/2016 2:36 PM T [facility] Neutrophil Absolute 3.98 2.01 - 7.14 x10E9/L 03/18/2016 2:36 PM CDT [facility] Lymphocytes Absolute 2.14 1.07 - 3.94 x10E9/L 03/18/2016 2:36 PM CDT [facility] Monocytes Absolute 0.88 0.26 - 1.07 x10E9/L 03/18/2016 2:36 PM CDT [facility] Eosinophils Absolute 0.15 0 - 0.47 x10E9/L 03/18/2016 2:36 PM T [facility] Basophils Absolute 0.05 0 - 0.08 x10E9/L 03/18/2016 2:36 PM T [facility] Immature Granulocytes Absolute 0.02 0.00 - 0.06 x10E9/L 03/18/2016 2:36 PM T [facility] nRBC Auto 0 /100 WBC 03/18/2016 2:36 PM [facility] Blood BLOOD SPECIMEN / Unknown 03/18/2016 2:25 PM CDT 03/18/2016 2:33 PM CDT Jerrod Mtz DO LAB - HEMATOLOGY ORD [facility] Organization Address City/State/ZIP Co de Phone Number [facility] [address] [place] [address] documented in this encounter Visit Diagnoses Diagnosis [...]
--- OUTSIDE RECORDS SUMMARY | 2024-09-25 20:10 | XMS_ITS | Clinical Summary ---
Author Organization [facility] Address [address] [place] [address]. [place], [place] [id number] [place] [address] Care Team Providers Care Turkish Line Attendant Name Role Phone Non-Staff, Provider Primary Care [...] 2:19 PM 03/23/2024 6:20 PM Care Teams Turkish Line Attendant Relationship Specialty Start Date End Date Non-Staff, Provider PCP - General UNKNOWN PHYSICIAN SPECIALTY 03/23/24
--- OUTSIDE RECORDS SUMMARY | 2024-09-25 20:11 | XMS_ITS | Encounter Summary ---
Author Organization [facility] Address [address] [place] [address]. [place] [address] [place] [address] Care Team Providers Care Dye Worker Name Role Phone Non-Staff, Provider Primary Care Provider Unasindhu galvan Reason for Visit * Auth/Cert (Routine) Specialty Diagnoses / Procedures Referred By Norm t Referred To Contact Diagnoses CERVICAL MYELOPATHY G95.9 Procedures HYSTEROSCOPY,RMV FB LAP.W/REMV.TUBES & OVARIES HYSTEROSCOPY WITH INTRAUTERINE DEVICE REMOVAL Justin Christie MD [address] [place] [address] Phone: tel: fax: Referral ID Status Reason Start Date Expiration Date Visits Re quested Visits Authorized [id number] 1 1 Encounter Details Date Type Department Care Team (Late st Contact Info) Description 03/23/2024 1:30 PM CDT Anesthesia Event [facility] OR [address] [place], [place] [phone] Manjinder Yusuf MD [address] [facility] [address] [place] [address] eKlley De Luna, PIPE SETTER [address] [place] [address] Anesthesia Record Procedure Summary Procedure Name Responsible [...] care under the direct supervision of the TAIL RIPPER. TAIL RIPPER remains present for continuous supervision of the [...] Date: 03/23/24; Removal Time: 1412; Removal Person: TAIL RIPPER; Removal Reason: End of Case 03/23/24 1336 [...] Per phone interview, patient denies having a travel ticketing reviewer or previous cardiac testing. Past Medical History: [...] mg 900 mg, Intravenous, at 100 mL/hr, fisher scallop to O.R., 1 dose, First dose on [...] mg documented in this encounter Care Teams Dye Worker Relationship Specialty Start Date End Date Non-Staff, Provider PCP - General UNKNOWN PHYSICIAN SPECIALTY 03/23/24 documented as of this encounter
--- OUTSIDE RECORDS SUMMARY | 2024-09-25 20:11 | XMS_ITS | Encounter Summary ---
Author Organization [facility] Address [address] [place] [address]. [place], [place] [address] [place] [address] Care Team Providers Care Burlap Bag Sewer Name Role Phone Non-Staff, Provider Primary Care Provider Unasindhu galvan Reason for Visit * Auth/Cert (Routine) Specialty Diagnoses / Procedures Referred By Norm benjamin Referred To Contact Diagnoses CERVICAL MYELOPATHY G95.9 Procedures HYSTEROSCOPY,RMV FB LAP.W/REMV.TUBES & OVARIES HYSTEROSCOPY WITH INTRAUTERINE DEVICE REMOVAL Alta Marc MD [address] [place] [id number] Phone: tel: fax: Referral ID Status Reason Start Date Expiration Date Visits Re quested Visits Authorized [id number] 1 1 Encounter Details Date Type Department Care Team (Late st Contact Info) Description 03/23/2024 11:09 AM CDT - 03/23/2024 12:29 PM CDT Surgery [place] [address] Alta Marc MD [address] [place] [id number] OPERATIVE HYSTEROSCOPY WITH INTRAUTERINE DEVICE REMOVAL, VAGINAL [...] sent through Care Everywhere. * Doxycycline, ADULT (Sri Lankan) * Hydroxyzine, ADULT ([place]ri [place]ankan) * Oxycodone and Acetaminophen, ADULT (Sri Lankan) * General Anesthesia Discharge Instructions (Sri Lankan) documented in this encounter Medications at Time [...] remove the IUD which was quite uncomfortable ROLLING MACHINE OPERATOR History: OB History 2 NVD No [...] cough or chest pain Physical Exam: Blood rpaumxoc479/60, pulse60 General:noAcute distress HEENT: Hair distribution over [...] Alta Marc MD Anesthesiologist: Manjinder Yusuf MD FORM TAMPER: Amrit Low CRNA Staff: Inspector Watch Assembly: ANGELIQUE Luis Circulating Nurse 1: Mckenzie Siu RN Scrub Person 1: Sarah Flaherty, COTTAGE MASTER; Ismael Robertson RN Retained placenta for preoperative [...] TISSUE VAGINAL PATHOLOGY Alta Marc MD 03/23/2024 [id number] Condition: stable on move to Post anesthesia [...] Per phone interview, patient denies having a nursing consultant or previous cardiac testing. * OR PreOp - Claudia Whyte RN - 03/16/2024 1:19 PM CDT Can you climb 2 flights of stairs without severe SOB or chest pain? Yes Are you physically able to do the same things today as 6 months ago? Yes Have you had any heart testing? No Avg BP? 110/70's Do you have a nursing consultant? No Patient has been holding phentermine for [...] CBC W/DIFF AUTOMATED (03/23/2024 9:34 AM CDT) [facility] WBC 6.51 4.5 - 11.0 x10'3/uL 03/23/2024 10:03 AM CDT [facility] RBC 4.34 4.20 - 5.40 x10'6/uL 03/23/2024 10:03 AM CDT [facility] HGB 10.5(L) 12.0 - 16.0 G/DL 03/23/2024 10:03 AM CDT [facility] HCT 33.3(L) 38.0 - 48.0 % 03/23/2024 10:03 AM CDT [facility] MCV 76.7(L) 81.0 - 99.0 FL 03/23/2024 10:03 AM CDT [facility] MCH 24.2(L) 27.0 - 31.0 PG 03/23/2024 10:03 AM CDT [facility] MCHC 31.5(L) 32.0 - 36.0 G/DL 03/23/2024 10:03 AM CDT [facility] RDW 17.7(H) 11.5 - 14.5 % 03/23/2024 10:03 AM CDT [facility] PLT 453(H) 130 - 400 x10'3/uL 03/23/2024 10:03 AM CDT [facility] MPV 9.0(L) 9.3 - 12.2 FL 03/23/2024 10:03 AM CDT [facility] DIFFERENTIAL TYPE AUTOMATED DIFFERENTIAL 03/23/2024 10:03 AM CDT [facility] NEUTROPHILS % 58.3 % 03/23/2024 10:03 AM CDT [facility] LYMPHOCYTES % 26.3 % 03/23/2024 10:03 AM CDT [facility] MONOCYTES % 9.8 % 03/23/2024 10:03 AM CDT [facility] EOSINOPHILS 4.3 % 03/23/2024 10:03 AM CDT [facility] BASOPHILS 0.8 % 03/23/2024 10:03 AM CDT [facility] IMMATURE GRANS % 0.5 % 03/23/20 10:03 AM CDT [facility] ABS. NEUTROPHILS 3.80 1.80 - 7.70 x10'3/uL 03/23/2024 10:03 AM CDT [facility] ABS. LYMPHOCYTES 1.71 1.00 - 4.80 x10'3/uL 03/23/2024 10:03 AM CDT [facility] ABS. MONOCYTES 0.64 0.24 - 0.86 x10'3/uL 03/23/2024 10:03 AM CDT [facility] ABS. EOSINOPHILS 0.28 0.04 - 0.36 x10'3/uL 03/23/2024 10:03 AM CDT [facility] ABS. BASOPHILS 0.05 0.01 - 0.08 x10'3/uL 03/23/2024 10:03 AM CDT [facility] ABS. IMMATURE GRANULOCYTES 0.03 0.00 - 0.49 x10'3/uL 03/23/2024 10:03 AM CDT [facility] 03/23/2024 9:34 AM CDT Alta Marc MD LABORATORY Final Result [facility] [address] [place] [address], * TEST URINE (03/23/2024 8:40 AM CDT) URINE HCG TEST NEGATIVE NEGATIVE [facility] Comment:[id number] Internal Control: VALID VALID [facility] Comment:[id number] URINE SPECIMEN FROM URETHRA / Unknown 03/23/2024 8:40 AM CDT us Jed Polanco MD URINE ORDERABLES Final Resu lt [facility] [address] [place] [address], * Pathology (03/23/2024 12:00 AM CDT) PATHOLOGY [facility] ? Department of Laboratory Medicine ?[address] [facility] ?[place] [address] ? , formerly [facility] [id number] ? Pathology Report ? Surgical Pathology Report Name: ALYSHA JOLLEY ?Specimen #: [id number] Age: 6 1990 (Age: 34) ?Location: [facility] Sex: F ?Procedure Date: 03/23/2024 Hospital #: [id number] ?Date Received: 03/24/2024 Date Reported: 03/25/2024 Provider: [...] interpretation, and sign out were performed at [facility], [address] [place] [address]. FINAL DIAGNOSIS: Vagina, cyst, excision: ? 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 Electronically Signed Out ? CALDERON BILLINGSLEY MD [facility] TISSUE VAGINAL STRUCTURE / Unknown 03/23/2024 1:58 PM CDT us Alta Marc MD PATHOLOGY/CYTOLOGY ORDERABLE S Final Result [facility] [address] [place] [address], [id number] documented in this encounter Visit Diagnoses Not on filedocumented in this encounter Administered Medications Inactive Administered Medications - up to 3 most recent administrations Medication Order MAR Action Action Date Dose Rate Site BUpivacaine-EPINEPHrine 0.25% -[id number] injection As needed, Starting on Thu03/23/24 at [...] (COMPLETED) 900 mg, Intravenous, at 100 mL/hr, scallop shucker to O.R., 1 dose, First dose on [...] Medication Order 03/21/2024 03/22/2024 03/23/2024 BUpivacaine-EPINEPHrine 0.25% -[id number] injection (CANCELED) As needed, Starting on Thu03/23/24 [...] Post-Op documented in this encounter Care Teams Burlap Bag Sewer Relationship Specialty Start Date End Date Non-Staff, Provider PCP - General UNKNOWN PHYSICIAN SPECIALTY 03/23/24 documented as of this encounter
--- OUTSIDE RECORDS SUMMARY | 2024-09-25 20:11 | XMS_ITS | Encounter Summary ---
Author Organization [facility] Address [address] [place] [address]. [place], [place] [address] [place] [address] Care Team Providers Care Oil Field Laborer Name Role Phone Non-Staff, Provider Primary Care Provider Roddy galvan Reason for Visit * Auth/Cert (Routine) Specialty Diagnoses / Procedures Referred By Norm benjamin Referred To Contact Diagnoses CERVICAL MYELOPATHY G95.9 Procedures HYSTEROSCOPY,RMV FB LAP.W/REMV.TUBES & OVARIES HYSTEROSCOPY WITH INTRAUTERINE DEVICE REMOVAL Alta Marc MD [address] [place] [id number] Phone: tel: fax: Referral ID Status Reason Start Date Expiration Date Visits Re quested Visits Authorized [id number] 1 1 Encounter Details Date Type Department Care Team (Latest Contact Info) Description 03/23/2024 8:24 AM CDT - 03/23/2024 4:15 PM T Hospital Encounter [facility] [place] [address] Alta Marc MD [address] [place] [id number] Discharge Disposition: Home or Self Care (Routine [...] sent through Care Everywhere. * Doxycycline, ADULT (Grenadian) * Hydroxyzine, ADULT (Grenadian) * Oxycodone and Acetaminophen, ADULT (Grenadian) * General Anesthesia Discharge Instructions (Grenadian) documented in this encounter Medications at Time [...] remove the IUD which was quite uncomfortable OSTOMY RN History: OB History 2 NVD No abnormal [...] cough or chest pain Physical Exam: Blood uaxjhhey877/60, pulse60 General:noAcute distress HEENT: Hair distribution over [...] Alta Marc MD Anesthesiologist: Manjinder Yusuf MD DIESEL TRACTOR OPERATOR: Amrit Low CRNA Staff: Microelectronics Technician: ANGELIQUE Luis Circulating Nurse 1: Mckenzie Siu RN Scrub Person 1: Sarah Flaherty, TEACHER PRIVATE; Ismael Robertson RN Retained placenta for preoperative [...] Per phone interview, patient denies having a court attendant or previous cardiac testing. * OR PreOp - Claudia Whyte RN - 03/16/2024 1:19 PM CDT Can you climb 2 flights of stairs without severe SOB or chest pain? Yes Are you physically able to do the same things today as 6 months ago? Yes Have you had any heart testing? No Avg BP? 110/70's Do you have a court attendant? No Patient has been holding phentermine for [...] - 11.0 x10'3/uL 03/23/2024 10:03 AM CDT [facility] RBC 4.34 4.20 - 5.40 x10'6/uL 03/23/2024 10:03 AM CDT [facility] HGB 10.5(L) 12.0 - 16.0 G/DL 03/23/2024 10:03 AM CDT [facility] HCT 33.3(L) 38.0 - 48.0 % 03/23/2024 10:03 AM CDT [facility] MCV 76.7(L) 81.0 - 99.0 FL 03/23/2024 10:03 AM CDT [facility] MCH 24.2(L) 27.0 - 31.0 PG 03/23/2024 10:03 AM CDT [facility] MCHC 31.5(L) 32.0 - 36.0 G/DL 03/23/2024 10:03 AM CDT [facility] RDW 17.7(H) 11.5 - 14.5 % 03/23/2024 10:03 AM CDT [facility] PLT 453(H) 130 - 400 x10'3/uL 03/23/2024 10:03 AM CDT [facility] MPV 9.0(L) 9.3 - 12.2 FL 03/23/2024 10:03 AM CDT [facility] DIFFERENTIAL TYPE AUTOMATED DIFFERENTIAL 03/23/2024 10:03 AM T [facility] NEUTROPHILS % 58.3 % 03/23/2024 10:03 AM CDT [facility] LYMPHOCYTES % 26.3 % 03/23/2024 10:03 AM CDT [facility] MONOCYTES % 9.8 % 03/23/2024 10:03 AM CDT [facility] EOSINOPHILS 4.3 % 03/23/2024 10:03 AM CDT [facility] BASOPHILS 0.8 % 03/23/2024 10:03 AM CDT [facility] IMMATURE GRANS % 0.5 % 03/23/20 10:03 AM CDT [facility] ABS. NEUTROPHILS 3.80 1.80 - 7.70 x10'3/uL 03/23/2024 10:03 AM CDT [facility] ABS. LYMPHOCYTES 1.71 1.00 - 4.80 x10'3/uL 03/23/2024 10:03 AM CDT [facility] ABS. MONOCYTES 0.64 0.24 - 0.86 x10'3/uL 03/23/2024 10:03 AM CDT [facility] ABS. EOSINOPHILS 0.28 0.04 - 0.36 x10'3/uL 03/23/2024 10:03 AM CDT [facility] ABS. BASOPHILS 0.05 0.01 - 0.08 x10'3/uL 03/23/2024 10:03 AM CDT [facility] ABS. IMMATURE GRANULOCYTES 0.03 0.00 - 0.49 x10'3/uL 03/23/2024 10:03 AM CDT [facility] 03/23/2024 9:34 AM CDT Alta Marc MD LABORATORY Final Result [facility] [address] [place] [address], * TEST URINE (03/23/2024 8:40 AM CDT) URINE HCG TEST NEGATIVE NEGATIVE [facility] Comment:[id number] Internal Control: VALID VALID [facility] Comment:[id number] URINE SPECIMEN FROM URETHRA / Unknown 03/23/2024 8:40 AM CDT us Jed Poalnco MD URINE ORDERABLES Final Resu lt [facility] [address] [place] [address], * Pathology (03/23/2024 12:00 AM CDT) PATHOLOGY [facility] ? Department of Laboratory Medicine ?[address] ?[place] [address] ? , extension [phone] ? Pathology Report ? Surgical Pathology Report Name: ALYSHA JOLLEY L ?Specimen #: [id number] Age: 6 1990 (Age: 34) ?Location: [facility] Sex: F ?Procedure Date: 03/23/2024 Hospital #: [id number] ?Date Received: 03/24/2024 Date Reported: 03/25/2024 Provider: [...] interpretation, and sign out were performed at [facility], [address] [place] [address]. FINAL DIAGNOSIS: Vagina, cyst, excision: ? 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 Electronically Signed Out ? CALDERON BILLINGSLEY MD [facility] TISSUE VAGINAL STRUCTURE / Unknown 03/23/2024 1:58 PM CDT us Alta Marc MD PATHOLOGY/CYTOLOGY ORDERABLE S Final Result [facility] [address] [place] [address], [id number] documented in this encounter Visit Diagnoses Diagnosis [...] 900 mg, Intravenous, at 100 mL/hr, call center agent to O.R., 1 dose, First dose on Thu03/23/24 at 0845, Pre-Op 1337 (Given - Provid er: Amrit Low, DIESEL TRACTOR OPERATOR) gentamicin (GARAMYCIN) 430 mg in sodium chloride [...] Medication Order 03/21/2024 03/22/2024 03/23/2024 BUpivacaine-EPINEPHrine 0.25% -[id number] injection (CANCELED) As needed, Starting on Thu03/23/24 [...] Post-Op documented in this encounter Care Teams Oil Field Laborer Relationship Specialty Start Date End Date Non-Staff, Provider PCP - General UNKNOWN PHYSICIAN SPECIALTY 03/23/24 documented as of this encounter
--- OUTSIDE RECORDS SUMMARY | 2024-09-25 20:11 | XMS_ITS | Encounter Summary ---
Author Organization [facility] Address [address] [place] [address]. [place] [address] Care Team Providers Care Curing Supervisor Name Role Phone Unavailable Primary Care [...]
--- OUTSIDE RECORDS SUMMARY | 2024-09-25 20:11 | XMS_ITS | Encounter Summary ---
Author Organization [facility] Address [address] [place] [address]. [place] [address] Care Team Providers Care Solderer Assembler Name Role Phone Non-Staff, Provider Primary Care [...] on filedocumented in this encounter Care Teams Solderer Assembler Relationship Specialty Start Date End Date Non-Staff, Provider PCP - General UNKNOWN PHYSICIAN SPECIALTY 03/23/24 documented as of this encounter
--- OUTSIDE RECORDS SUMMARY | 2024-09-25 20:12 | XMS_ITS | Encounter Summary ---
Author Organization [facility] Address [address] [place] [address] Care Team Providers Care Manager Forensic Name Role Phone Citlaly Ramos DO Primary Care Provider [phone] Encounter Details Date Type Department Care Team (Latest Contact Info) Description 10/16/2021 11:03 AM CORPORATION PILOT - 10/16/2021 11:59 PM CORPORATION PILOT Hospital Encounter [facility] [address] [place], [place] [id number] Discharge Disposition: Discharge to home or self [...] on file Legal Sex Female 1:00 AM CORPORATION PILOT Gender Identity Not on file Sexual Orientation [...] RETROGRADE PYELOGRAM IP Routine 10/16/2021 12:18 PM CORPORATION PILOT FL FLUOROSCOPY < 1 HOUR IP Routine 10/16/2021 12:18 PM CORPORATION PILOT documented in this encounter Results * FL Fluoroscopy < 1 Hour (10/16/2021 12:18 PM CORPORATION PILOT) Narrative [facility] - 10/16/2021 12:19 PM CORPORATION PILOT The images from this study are not interpreted by Radiology. ??Please refer to the physician's procedure / OR operative note. us Tye Woods MD IMG FLUOROSCOPY PROCEDU RES Final Result [facility] * FL Retrograde Pyelogram (10/16/2021 12:18 PM CORPORATION PILOT) Anatomical Region Laterality Modality Body N/A Radio Fluoroscop y 10/16/2021 12:3 6 PM CORPORATION PILOT Impressions 10/16/2021 12:36 PM CORPORATION PILOT RIGHT-SIDED STENT PLACEMENT FOR HYDRONEPHROSIS Electronically signed by: Nelson Bonilla M.D. [facility] 10/16/2021 12:36 PM CORPORATION PILOT EXAMINATION: FL RETROGRADE PYELOGRAM dated 10/16/2021 11:05 AM HISTORY: Hydronephrosis, horseshoe kidney FINDINGS: Management Services Technician radiograph normal. Cannulation right ureter with a ureteroscope. Intrauterine contraceptive device in the pelvis. Contrast injection into the right kidney demonstrates mild caliectasis. Placement of a right-sided stent Procedure Note Nelson Bonilla MD - 10/16/2021 EXAMINATION: FL RETROGRADE PYELOGRAM dated 10/16/2021 11:05 AM HISTORY: Hydronephrosis, horseshoe kidney FINDINGS: Management Services Technician radiograph normal. Cannulation right ureter with a [...] filedocumented in this encounter Care Teams Manager Forensic Relationship Specialty Start Date End Date Rachel Citlaly [address] [place] [address] PCP - General Family Medicine 10/03/21 documented as of this encounter
--- OUTSIDE RECORDS SUMMARY | 2024-09-25 20:12 | XMS_ITS | Clinical Summary ---
Author Organization [facility] Address [address] [place] [phone] Care Team Providers Care Realtime Court Reporter Name Role Phone Citlaly Ramos DO Primary Care Provider [phone] Allergies Active Allergy Reactions Criticality Noted Date [...] file Legal Sex Female 1:00 AM KILN MAINTENANCE Gender Identity Not on file Sexual Orientation Not on file Obstetrics History Last Filed Vital Signs Vital Sign Reading Time Taken Comments Blood Pressure 126/86 10/16/2021 12:40 PM KILN MAINTENANCE Pulse 82 10/16/2021 12:40 PM KILN MAINTENANCE Temperature 36.7 ??C (98.1 ??F) 10/21/2021 1:29 PM CS T Respiratory Rate 8 10/16/2021 12:40 PM KILN MAINTENANCE Oxygen Saturation 100% 10/16/2021 12:40 PM KILN MAINTENANCE Inhaled Oxygen Concentration - - Weight 90.7 kg (200 lb) 10/16/2021 10:29 AM KILN MAINTENANCE Height 162.6 cm (5' 4 ) 10/16/2021 10:29 AM KILN MAINTENANCE Body Mass Index 34.33 10/16/2021 10:29 AM KILN MAINTENANCE Plan of Treatment Health Maintenance Due [...] this topic Medical Devices Explanted Type Area Background Investigator Device Identifier Shelf Expiration Date Model / Serial / Lot Ureteral Stent Explanted:Qty: 1 on 10/16/2021 by Tye Woods MD at [facility] Right: Urethra Other [employer] [id number] Universa 6fr 24cm Radiopaque Positioner Monofilament Tether - [id number] Implanted:Qty: 1 on 10/16/2021 by Tye Woods MD at [facility] Explanted:Qty: 1 on 10/21/2021 by Tye Woods MD Right: Urethra [employer] [id number] 07/22/2024 [id number] / / [id number] Procedures Procedure Name Priority Date/Time Associated Diagnosis [...] to request sample to be sent to [facility] for Hepatitis C Virus (HCV) RNA Detection and Quantitation by Real-Time Reverse Toll Transmission Worker-PCR (RT-PCR). Current interpretive data was last revised on 2011 Aicha Bucio NP LAB BLOOD ORDERABLES Final Result HISTORICAL RESULTS from Last 3 Months or Most Recently Relevant to Health Maintenance Insurance AETNA [facility] AETNA [facility] Care Teams Realtime Court Reporter Relationship Specialty Start Date End Date Citlaly Ramos DO [address] [place] [address] PCP - General Family Medicine 10/03/21
--- OUTSIDE RECORDS SUMMARY | 2024-09-25 20:12 | XMS_ITS | Referral Summary ---
Author Organization [facility] Address [address] [place] [phone] Care Team Providers Care Oil Change Technician Name Role Phone Citlaly Ramos DO Primary Care Provider [phone] Allergies Active Allergy Reactions Criticality Noted Date [...] on file Legal Sex Female 1:00 AM SPLICER HELPER Gender Identity Not on file Sexual Orientation Not on file Last Filed Vital Signs Vital Sign Reading Time Taken Comments Blood Pressure 126/86 10/16/2021 12:40 PM SPLICER HELPER Pulse 82 10/16/2021 12:40 PM SPLICER HELPER Temperature 36.7 ??C (98.1 ??F) 10/21/2021 1:29 PM CS T Respiratory Rate 8 10/16/2021 12:40 PM SPLICER HELPER Oxygen Saturation 100% 10/16/2021 12:40 PM SPLICER HELPER Inhaled Oxygen Concentration - - Weight 90.7 kg (200 lb) 10/16/2021 10:29 AM SPLICER HELPER Height 162.6 cm (5' 4 ) 10/16/2021 10:29 AM SPLICER HELPER Body Mass Index 34.33 10/16/2021 10:29 AM SPLICER HELPER Plan of Treatment Not on file Medical Devices Explanted Type Area Incident Response Engineer Device Identifier Shelf Expiration Date Model / Serial / Lot Ureteral Stent Explanted:Qty: 1 on 10/16/2021 by Tye Woods MD at [facility] Right: Urethra Other [employer] [id number] Universa 6fr 24cm Radiopaque Positioner Monofilament Tether - [id number] Implanted:Qty: 1 on 10/16/2021 by Tye Woods MD at [facility] Explanted:Qty: 1 on 10/21/2021 by Tye Woods MD Right: Urethra [employer] [id number] 07/22/2024 [id number] / / [id number] Procedures Procedure Name Priority Date/Time Associated Diagnosis [...] to request sample to be sent to [facility] for Hepatitis C Virus (HCV) RNA Detection and Quantitation by Real-Time Reverse Draw In Hand-PCR (RT-PCR). Current interpretive data was last revised on 2011 Aicha Bucio NP LAB BLOOD ORDERABLES Final Result HISTORICAL RESULTS from Last 3 Months or Most Recently Relevant to Health Maintenance [place] [address] [place] [address] [facility] Care Teams Oil Change Technician Relationship Specialty Start Date End Date Citlaly Ramos DO [address] [place] [id number] PCP - General Family Medicine 10/03/21
--- OUTSIDE RECORDS SUMMARY | 2024-09-25 20:12 | XMS_ITS | Encounter Summary ---
Author Organization [facility] Address [address] [place] [address] Phone Care Team Providers Care Tree Trimming Supervisor Name Role Phone Citlaly Ramos DO Primary Care Provider [phone] Reason for Visit * Reason Comments Cyst Stent removal * Consultation (Routine) - Closed Specialty Diagnoses / Procedures Referred By Norm benjamin Referred To Contact Urology Diagnoses Hydronephrosis, unspecified hydronephrosis type Kidney stones Referral, Self [facility] (All Locations) Referral ID Status Reason Start Date Expiration Date V isits Requested Visits Authorized [id number] Closed Specialty Services Required 09/27/2021 10/27/2022 99 [phone] Encounter Details Date Type Department Care Team (Late st Contact Info) Description 10/21/2021 1:20 PM JUNIOR RECRUITER Office Visit [facility]) - [facility]rology [id number] [place] [phone] Tye Woods MD [address] [place] [address] Kidney stone (Primary Dx) Social History Tobacco [...] file Legal Sex Female 1:00 AM JUNIOR RECRUITER Gender Identity Not on file Sexual [...] in 6 weeks to discuss stone prevention. OR RECRUITER * Candice Talavera CMA - 10/21/2021 1:20 PM CST History and Indication for Cysto Stent removal The skin was prepped with betadine. Supervising Physician: Dr. Chuck Talavera CMA III OR RECRUITER documented in this encounter Plan of Treatment Not on file documented as of this encounter Visit Diagnoses Diagnosis Kidney stone- Primary Calculus of kidney documented in this encounter Care Teams Tree Trimming Supervisor Relationship Specialty Start Date End Date Citlaly Ramos [address] [place] [address] PCP - General Family Medicine 10/03/21 documented as of this encounter
--- OUTSIDE RECORDS SUMMARY | 2024-09-25 20:12 | XMS_ITS | Encounter Summary ---
Author Organization [facility] Healthcare Address [address] [place] [address] Care Team Providers Care Veneer Clipper Helper Name Role Phone Citlaly Ramos DO Primary Care Provider [phone] Encounter Details Date Type Department Care Team (Late st Contact Info) Description 10/16/2021 11:20 AM COACH Anesthesia Event [facility] Operating Room [address] [place] [address] [place] [address] [facility] [place] [place] [address] Drew Rose MD [address] [place] [address] Anesthesia Record Procedure Summary Procedure Name Responsible [...] file Legal Sex Female 1:00 AM COACH Gender Identity Not on file Sexual Orientation [...] normothermic Nausea/Vomiting status: none No complications documented. H * Anesthesia Procedure Notes - Amrit Low CRNA - 10/16/2021 11:30 AM COACH Associated Order(s): Airway Airway Patient location: OR Urgency: elective Indications for airway management: anesthesia Difficult airway: no Staff: Placed by: WOVEN LABEL DESIGNER: Amrit Low CRNA Emergent airway documentation: Risks [...] Amrit Low CRNA at bedside during procedure. H * Anesthesia Preprocedure Evaluation - Ameya Galvez [...] Medication protocol when under care of a WOVEN LABEL DESIGNER Planned anesthesia: General Team communication plan: LMA Induction: Induction: intravenous. Postoperative Plan: Postoperative administration opioids intended. No postoperative mechanical ventilation intended. Patient's planned disposition post procedure is Outpatient. No trial extubation planned. Informed Consent: Discussed plan with attending, WOVEN LABEL DESIGNER and AA. Anesthesia plan and risks discussed with patient. Consent and Attending signature: I and/or my designee have discussed the anesthesia plan, benefits, possible alternatives, parental presence at time of induction (if indicated), and clinically relevant risks that may include dental injury, unintentional awareness, and/or other complications. The patient and/or parent/legal guardian understand, and agree to proceed. All questions answered. H H documented in this encounter Plan of Treatment Not on file documented as of this encounter Procedures Procedure Name Priority Date/Time Associated Diagnosis Comments KS AN ELECTIVE SUPRAGLOTTIC AIRWAY Routine 10/16/2021 11:30 AM COACH documented in this encounter Results * KS AN ELECTIVE SUPRAGLOTTIC AIRWAY (10/16/2021 11:30 AM COACH) Narrative Amrit Low CRNA - 10/16/2021 11:30 AM COACH Amrit Low CRNA ? 10/16/2021 11:31 AM Airway Patient location: OR Urgency: elective Indications for airway management: anesthesia Difficult airway: no Staff: Placed by: WOVEN LABEL DESIGNER: Amrit Low CRNA Emergent airway documentation: Risks [...] SurgicalIndications:Prophylaxis , Surgical Given 10/16/2021 11:33 AM COACH 2,000 mg dexAMETHasone (DECADRON) 4 mg/mL injection intravenous, Administer over 2 Minutes, As needed, Starting on Thu10/16/21 at 1133, Anesthesia Intra-op Given 10/16/2021 11:33 AM COACH 4 mg fentaNYL (SUBLIMAZE) preservative free injection intravenous, As needed, Starting on Thu10/16/21 at 1133, Anesthesia Intra-op Given 10/16/2021 11:40 AM COACH 50 mcg Given 10/16/2021 11:33 AM COACH 50 mcg Lactated Ringer's (LR) infusion 30 mL/hr, intravenous, Continuous, Starting on Thu10/16/21 at 1030, Pre-Op New Bag 10/16/2021 11:20 AM COACH lidocaine (cardiac) (XYLOCAINE) preservative free injection intravenous, As needed, Starting on Thu10/16/21 at 1125, Anesthesia Intra-op, Indications: Ventricular ArrhythmiasIndications:Ventricular Arrhythmias Given 10/16/2021 11:25 AM COACH 100 mg midazolam (VERSED) 1 mg/mL preservative free injection intravenous, Administer over 2 Minutes, As needed, Starting on Thu10/16/21 at 1120, Anesthesia Intra-op Given 10/16/2021 11:20 AM COACH 2 mg ondansetron (ZOFRAN) injection intravenous, Administer over 2 Minutes, As needed, Starting on Thu10/16/21 at 1133, Anesthesia Intra-op Given 10/16/2021 11:33 AM COACH 4 mg propofoL (DIPRIVAN) 10 mg/mL IV intravenous, As needed, Starting on Thu10/16/21 at 1126, Anesthesia Intra-op Given 10/16/2021 11:26 AM COACH 160 mg documented in this encounter Care Teams Veneer Clipper Helper Relationship Specialty Start Date End Date Citlaly Ramos DO [address] [place] [id number] PCP - General Family Medicine 10/03/21 documented as of this encounter
--- OUTSIDE RECORDS SUMMARY | 2024-09-25 20:12 | XMS_ITS | Continuity of Care Document ---
Author Organization [facility] Address [address] [place] [address] Phone Care Team Providers Care Teacher Of The Emotionally Disturbed Name Role Phone Unavailable Unavailable Unavailable Procedures Procedure Date Extraction erupted tooth or exposed root Limit Oral Evaluation- problem focused J Periapical Radiographic, first Image Feb Advance Directives Directive Yes / No Effective Date File Name No Information Encounters Encounter Description Practice Location Reason(s) For Visit Diagnoses Date Provider Providers Copied on Encounter [facility] , [address], [place], [place], [address], tel:[phone] [facility] Dental caries on pit and fissure surface penetrat into pulp No Information Referring Provider: Ervin Clayton, [address], [place], [address]. tel:[phone] Family History Family Member Type Diagnosis Age [...]
--- OUTSIDE RECORDS SUMMARY | 2024-09-25 20:12 | XMS_ITS | Encounter Summary ---
Author Organization [facility] Healthcare Address [address] [place] [address] Care Team Providers Care Petrologist Name Role Phone Citlaly Ramos DO Primary Care Provider [phone] Encounter Details Date Type Department Care Team (Late st Contact Info) Description 10/16/2021 11:30 AM [facility] - 10/16/2021 12:30 PM [facility] Operating Room [address] [place] [address] Tye Woods MD [address] [place], [place] [id number] CYSTOSCOPY CHANGE URETERAL STENT; RETROGRADE, URETEROSCOPY, Surgery [...] file Legal Sex Female 1:00 AM [facility] Gender Identity Not on file Sexual Orientation Not on file documented as of this encounter Last Filed Vital Signs Vital Sign Reading Time Taken Comments Blood Pressure 112/72 10/16/2021 12:25 PM [facility] Pulse 75 10/16/2021 12:30 PM [facility] Temperature 36.5 ??C (97.7 ??F) 10/16/2021 12:[address] Respiratory Rate 16 10/16/2021 12:30 PM [facility] Oxygen Saturation 99% 10/16/2021 12:30 PM [facility] Inhaled Oxygen Concentration - - Weight 90.7 kg (200 lb) 10/16/2021 10:29 AM [facility] Height 162.6 cm (5' 4 ) 10/16/2021 10:29 AM [facility] Body Mass Index 34.33 10/16/2021 10:29 AM [facility] documented in this encounter Discharge Instructions * Discharge Instructions* Jocy Rodriguez RN - 10/16/2021 1:39 PM [facility] NOTE: You have a ureteral stent in [...] - Docusate/miralax as needed for constipation, available [id number] - Phenazopyridine as needed for pain with [...] symptoms, please call the Urology office. Diet: [place] diet: At first eat a bland diet; [...] Thursday, 8 AM to 5:00 PM: call [phone] and ask for a member of your doctor's team. For urgent matters after 5:00 PM during the week or on weekends or holidays, call [phone] and ask to have the Urology Patient Financial Counselor Physician paged for you. FOLLOW UP CALLS [...] enough for us, we strive for EXCELLENCE! [facility] * Attachments The following attachments cannot be sent through Care Everywhere. * General Anesthesia (Discharge Care) (Swedish) * Ureteral Stent Placement (Discharge Care) (Swedish) * Ureteroscopy (Discharge Care) (Swedish) * Oxybutynin (By mouth) (Swedish) * Tamsulosin (By mouth) (Swedish) documented in this encounter Medications at Time [...] URETERAL STENT exchange/ laser litho/ 60 min [facility] Source Note - Tye Woods MD - 10/14/2021 8:10 AM [facility] Urology History and Physical HPI: Jumana Rivers is a 31 y.o. 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 History of right renal stones in 2018 and in January of last year. Had ESWL both times. Last one with Dr. Zamora at [facility] in January2021 and has a ureteral stent [...] Modality Abdomen -- Ultrasound Narrative Performed by [facility] RAD[facility] RENAL ULTRASOUND HISTORY: Horseshoe kidney and [...] since January of last year. Treated at [facility] before. Has flank pain. Urine culture negative. Discussed management options including right ureteroscopic laser lithotripsy and ureteral stent exchange. ESWL also discussed including PCNL. Complications of URS explained including uti, sepsis, hematuria, stent complications, ureteral stricture or perforation, unable to retrieve all of stones. Needs covid test. Tye Woods MD Urology Division [facility] Office [phone] 10/14/2021 8:56 AM . [facility] documented in this encounter Miscellaneous Notes * [...] any difficulty. We then inserted a 5 Greek ureteral catheter on fluoroscopy there was no [...] decided to leave a double-J stent 6 Greek by 24 cm with the upper coil [...] andright ureteral stent removal in 5 days [facility] * Pre-Procedure Instructions - Shanti Thompson RN - 10/14/2021 2:31 PM [facility] We are pleased that you and your doctor have chosen [facility] for your surgery. We hope that the following information will help make your visit a pleasant one. Surgery Date: 10/16/2021 arrive at 0930 AM [facility] (look for sign reading ???[facility]?? ) [address] [place], [place] [phone] Before your surgery: ?? Notify your doctor [...] ?? Do not use perfume/cologne, make-up, nail turkish, lotions, oil/vaseline or powders on your skin. [...] insurance cards, and medication list (including all [id number]) with you. ?? Prescriptions can be filled [...] your Pre-Admission Screen/Testing, please call at . [facility] documented in this encounter Plan of Treatment Not on file documented as of this encounter Procedures Procedure Name Priority Date/Time Associated Diagnosis Comments FL FLUOROSCOPY < 1 HOUR IP Routine 10/16/2021 12:18 PM [facility] RETROGRADE PYELOGRAM IP Routine 10/16/2021 12:18 PM [facility] URETEROSCOPY 10/16/2021 11:20 AM [facility] Kidney stone PYELOGRAM - RETROGRADE 10/16/2021 11:20 AM [facility] Kidney stone CYSTOSCOPY CHANGE URETERAL STENT 10/16/2021 11:20 AM [facility] Kidney stone POCT HCG, URINE Routine 10/16/2021 10:28 AM [facility] documented in this encounter Results * FL Fluoroscopy < 1 Hour (10/16/2021 12:18 PM [facility]) Narrative RAD_PACS_[facility] - 10/16/2021 12:19 PM [facility] The images from this study are not interpreted by Radiology. ??Please refer to the physician's procedure / OR operative note. Tye Woods MD IMG FLUOROSCOPY PROCEDU RES Final Result RAD_PACS_[facility] * FL Retrograde Pyelogram (10/16/2021 12:18 PM [facility]) Anatomical Region Laterality Modality Body N/A Radio Fluoroscop y 10/16/2021 12:3 6 PM [facility] Impressions 10/16/2021 12:36 PM [facility] RIGHT-SIDED STENT PLACEMENT FOR HYDRONEPHROSIS Electronically signed by: Nelson Bonilla M.D. Narrative 10/16/2021 12:36 PM [facility] EXAMINATION: FL RETROGRADE PYELOGRAM dated 10/16/2021 11:05 AM HISTORY: Hydronephrosis, horseshoe kidney FINDINGS: Engineering Program Analyst radiograph normal. Cannulation right ureter with a ureteroscope. Intrauterine contraceptive device in the pelvis. Contrast injection into the right kidney demonstrates mild caliectasis. Placement of a right-sided stent Procedure Note Nelson Bonilla MD - 10/16/2021 EXAMINATION: FL RETROGRADE PYELOGRAM dated 10/16/2021 11:05 AM HISTORY: Hydronephrosis, horseshoe kidney FINDINGS: Engineering Program Analyst radiograph normal. Cannulation right ureter with a ureteroscope. Intrauterine contraceptive device in the pelvis. Contrast injection into the right kidney demonstrates mild caliectasis. Placement of a right-sided stent IMPRESSION: RIGHT-SIDED STENT PLACEMENT FOR HYDRONEPHROSIS Electronically signed by: Nelson Bonilla M.D. Tye Woods MD IMG FLUOROSCOPY PROCEDU RES Final Result * POCT hCG, urine (10/16/2021 10:28 AM [facility]) HCG, ur, POC Negative Lot Number [id number] QC Backgroud Clear Acceptable QC Control Line Acceptable Urine 10/16/2021 10:2 8 AM [facility] Drew Rose MD POINT OF CARE TEST [...] SurgicalIndications:Prophylaxi s, Surgical Given 10/16/2021 11:33 AM [facility] 2,000 mg celecoxib (CeleBREX) 200 mg capsule - ADS Override Pull Starting on Thu10/16/21 at 1002, For 1 dose, BRIONNA OSWALD: cabinet override celecoxib (CeleBREX) capsule 200 mg 200 mg, oral, Once, On Thu10/16/21 at 1030, For 1 dose, Pre-Op, Indications: Pre-Emptive PainIndications:Pre-Emptive Pain Given 10/16/2021 10:57 AM [facility] 200 mg fentaNYL (SUBLIMAZE) 50 mcg/mL preservative [...] more., Indications: PainIndications:Pain Given 10/16/2021 12:40 PM [facility] 50 mcg Left Hand Given 10/16/2021 12:24 PM [facility] 50 mcg L eft Hand Given 10/16/2021 12:10 PM [facility] 50 mcg L eft Hand ioversoL (OPTIRAY 320) injection As needed, Starting on Thu10/16/21 at 1143, Intra-Op Given 10/16/2021 11:43 AM [facility] 5 mL Surgical Site Lactated Ringer's (LR) infusion 30 mL/hr, intravenous, Continuous, Starting on Thu10/16/21 at 1030, Pre-Op New Bag 10/16/2021 11:20 AM [facility] oxybutynin (DITROPAN) tablet 5 mg 5 mg, oral, Once, On Thu10/16/21 at 1345, For 1 dose Given 10/16/2021 1:48 PM [facility] 5 mg oxyCODONE-acetaminophen (PERCOCET) 5-325 mg per tablet 1 tablet 1 tablet, oral, Once, On Thu10/16/21 at 1500, For 1 dose, Indications: PainIndications:Pain Given 10/16/2021 2:23 PM [facility] 1 tablet sodium chloride 0.9% irrigation As needed, Starting on Thu10/16/21 at 1148, Intra-Op Given 10/16/2021 11:48 AM [facility] 1,000 mL Surgical Site documented in this [...] (six) hours as needed Other 09/24/2021 10/14/2021 [id number] acid ( 19) 29 mg iron- 1 [...] Recently Administered Medications Times are shown in [facility]. Scheduled Medication Order 10/14/2021 10/15/2021 10/16/2021 ceFAZolin (ANCEF) 1 gram/10 mL in sterile water (premix) 2,000 mg 2,000 mg, intravenous, at 400 mL/hr, Administer over 3 Minutes, Every 8 hours scheduled, First dose on Thu10/16/21 at 1400, Indications: Prophylaxis, Surgical 1133 (Given - Provid er: Amrit Low, WOUND SPECIALIST)1400 (Due) celecoxib (CeleBREX) capsule 200 mg (COMPLETED) [...] 05/2022 documented in this encounter Care Teams Petrologist Relationship Specialty Start Date End Date Citlaly Ramos DO [address] [place] [id number] PCP - General Family Medicine 10/03/21 documented as of this encounter
--- OUTSIDE RECORDS SUMMARY | 2024-09-25 20:12 | XMS_ITS | Encounter Summary ---
Author Organization [facility] Healthcare Address [address] [place] [address] Care Team Providers Care Theatrical Variety Agent Name Role Phone Citlaly Ramos DO Primary Care Provider [phone] Encounter Details Date Type Department Care Team (Latest Contact Info) Description 10/16/2021 9:31 AM KILN LABOURER - 10/16/2021 3:24 PM KILN LABOURER Hospital Encounter [facility] Operating Room [address] [place] [address] Tye Woods MD [address] [place] [address] Discharge Disposition: Discharge to home [...] file Legal Sex Female 1:00 AM KILN LABOURER Gender Identity Not on file Sexual Orientation Not on file documented as of this encounter Last Filed Vital Signs Vital Sign Reading Time Taken Comments Blood Pressure 126/86 10/16/2021 12:40 PM KILN LABOURER Pulse 82 10/16/2021 12:40 PM KILN LABOURER Temperature 36.5 ??C (97.7 ??F) 10/16/2021 12:[address] Respiratory Rate 8 10/16/2021 12:40 PM KILN LABOURER Oxygen Saturation 100% 10/16/2021 12:40 PM KILN LABOURER Inhaled Oxygen Concentration - - Weight 90.7 kg (200 lb) 10/16/2021 10:29 AM KILN LABOURER Height 162.6 cm (5' 4 ) 10/16/2021 10:29 AM KILN LABOURER Body Mass Index 34.33 10/16/2021 10:29 AM KILN LABOURER documented in this encounter Discharge Diagnoses Diagnosis [...] Jocy Rodriguez RN - 10/16/2021 1:39 PM KILN LABOURER NOTE: You have a ureteral stent in [...] - Docusate/miralax as needed for constipation, available [id number] - Phenazopyridine as needed for pain with [...] symptoms, please call the Urology office. Diet: Pacific diet: At first eat a bland diet; [...] Thursday, 8 AM to 5:00 PM: call [phone] and ask for a member of your doctor's team. For urgent matters after 5:00 PM during the week or on weekends or holidays, call [phone] and ask to have the Urology Forestry Scientist Physician paged for you. FOLLOW UP CALLS [...] enough for us, we strive for EXCELLENCE! LABOURER * Attachments The following attachments cannot be sent through Care Everywhere. * General Anesthesia (Discharge Care) (Uruguayan) * Ureteral Stent Placement (Discharge Care) (Uruguayan) * Ureteroscopy (Discharge Care) (Uruguayan) * Oxybutynin (By mouth) (Uruguayan) * Tamsulosin (By mouth) (Uruguayan) documented in this encounter Medications at Time [...] URETERAL STENT exchange/ laser litho/ 60 min LABOURER Source Note - Tye Woods MD - 10/14/2021 8:10 AM KILN LABOURER Urology History and Physical HPI: Jumana Rivers is a 31 y.o. 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 History of right renal stones in 2018 and in January of last year. Had ESWL both times. Last one with Dr. Zamora at [facility] in January2021 and has a ureteral [...] Modality Abdomen -- Ultrasound Narrative Performed by [facility] RADIOLOGY RENAL ULTRASOUND HISTORY: Horseshoe kidney [...] of last year. Treated at [facility] before. Has flank pain. Urine culture negative. Discussed management options including right ureteroscopic laser lithotripsy and ureteral stent exchange. ESWL also discussed including PCNL. Complications of URS explained including uti, sepsis, hematuria, stent complications, ureteral stricture or perforation, unable to retrieve all of stones. Needs covid test. Tye Woods MD Urology Division [facility] Office [phone] 10/14/2021 8:56 AM . LABOURER documented in this encounter Miscellaneous Notes * [...] any difficulty. We then inserted a 5 Indonesian ureteral catheter on fluoroscopy there was no [...] decided to leave a double-J stent 6 Indonesian by 24 cm with the upper coil [...] andright ureteral stent removal in 5 days LABOURER * Pre-Procedure Instructions - Shanti Thompson RN - 10/14/2021 2:31 PM KILN LABOURER We are pleased that you and your doctor have chosen [facility] for your surgery. We hope that the following information will help make your visit a pleasant one. Surgery Date: 10/16/2021 arrive at 0930 AM [facility] (look for sign reading ???EMERGENCY - SURGERY CENTER?? ) [address] [place], [place] [phone] Before your surgery: ?? Notify your doctor [...] ?? Do not use perfume/cologne, make-up, nail ukrainian, lotions, oil/vaseline or powders on your skin. [...] insurance cards, and medication list (including all ncxw-gva-[id number]) with you. ?? Prescriptions can be filled [...] your Pre-Admission Screen/Testing, please call at . LABOURER documented in this encounter Plan of Treatment Not on file documented as of this encounter Procedures Procedure Name Priority Date/Time Associated Diagnosis Comments FL FLUOROSCOPY < 1 HOUR IP Routine 10/16/2021 12:18 PM KILN LABOURER RETROGRADE PYELOGRAM IP Routine 10/16/2021 12:18 PM KILN LABOURER URETEROSCOPY 10/16/2021 11:20 AM KILN LABOURER Kidney stone PYELOGRAM - RETROGRADE 10/16/2021 11:20 AM KILN LABOURER Kidney stone CYSTOSCOPY CHANGE URETERAL STENT 10/16/2021 11:20 AM KILN LABOURER Kidney stone POCT HCG, URINE Routine 10/16/2021 10:28 AM KILN LABOURER documented in this encounter Results * FL Fluoroscopy < 1 Hour (10/16/2021 12:18 PM KILN LABOURER) Narrative RAD_PACS_CH - 10/16/2021 12:19 PM KILN LABOURER The images from this study are not interpreted by Radiology. ??Please refer to the physician's procedure / OR operative note. Tye Woods MD IMG FLUOROSCOPY PROCEDU RES Final Result RAD_PACS_CH * FL Retrograde Pyelogram (10/16/2021 12:18 PM KILN LABOURER) Anatomical Region Laterality Modality Body N/A Radio Fluoroscop y 10/16/2021 12:3 6 PM KILN LABOURER Impressions 10/16/2021 12:36 PM KILN LABOURER RIGHT-SIDED STENT PLACEMENT FOR HYDRONEPHROSIS Electronically signed by: Nelson Bonilla M.D. Narrative 10/16/2021 12:36 PM KILN LABOURER EXAMINATION: FL RETROGRADE PYELOGRAM dated 10/16/2021 11:05 AM HISTORY: Hydronephrosis, horseshoe kidney FINDINGS: Proposal Editor radiograph normal. Cannulation right ureter with a ureteroscope. Intrauterine contraceptive device in the pelvis. Contrast injection into the right kidney demonstrates mild caliectasis. Placement of a right-sided stent Procedure Note Nelson Bonilla MD - 10/16/2021 EXAMINATION: FL RETROGRADE PYELOGRAM dated 10/16/2021 11:05 AM HISTORY: Hydronephrosis, horseshoe kidney FINDINGS: Proposal Editor radiograph normal. Cannulation right ureter with a ureteroscope. Intrauterine contraceptive device in the pelvis. Contrast injection into the right kidney demonstrates mild caliectasis. Placement of a right-sided stent IMPRESSION: RIGHT-SIDED STENT PLACEMENT FOR HYDRONEPHROSIS Electronically signed by: Nelson Bonilla M.D. Tye Woods MD IMG FLUOROSCOPY PROCEDU RES Final Result * POCT hCG, urine (10/16/2021 10:28 AM KILN LABOURER) HCG, ur, POC Negative Lot Number [id number] QC Backgroud Clear Acceptable QC Control Line Acceptable Urine 10/16/2021 10:2 8 AM KILN LABOURER Drew Rose MD POINT OF CARE TEST [...] SurgicalIndications:Prophylaxi s, Surgical Given 10/16/2021 11:33 AM KILN LABOURER 2,000 mg celecoxib (CeleBREX) 200 mg capsule - ADS Override Pull Starting on Thu10/16/21 at 1002, For 1 dose, BRIONNA OSWALD: cabinet override celecoxib (CeleBREX) capsule 200 mg 200 mg, oral, Once, On Thu10/16/21 at 1030, For 1 dose, Pre-Op, Indications: Pre-Emptive PainIndications:Pre-Emptive Pain Given 10/16/2021 10:57 AM KILN LABOURER 200 mg fentaNYL (SUBLIMAZE) 50 mcg/mL preservative [...] more., Indications: PainIndications:Pain Given 10/16/2021 12:40 PM KILN LABOURER 50 mcg Left Hand Given 10/16/2021 12:24 PM KILN LABOURER 50 mcg L eft Hand Given 10/16/2021 12:10 PM KILN LABOURER 50 mcg L eft Hand Lactated Ringer's (LR) infusion 30 mL/hr, intravenous, Continuous, Starting on Thu10/16/21 at 1030, Pre-Op New Bag 10/16/2021 11:20 AM KILN LABOURER oxybutynin (DITROPAN) tablet 5 mg 5 mg, oral, Once, On Thu10/16/21 at 1345, For 1 dose Given 10/16/2021 1:48 PM KILN LABOURER 5 mg oxyCODONE-acetaminophen (PERCOCET) 5-325 mg per tablet 1 tablet 1 tablet, oral, Once, On Thu10/16/21 at 1500, For 1 dose, Indications: PainIndications:Pain Given 10/16/2021 2:23 PM KILN LABOURER 1 tablet documented in this encounter Discontinued [...] (six) hours as needed Other 09/24/2021 10/14/2021 [id number]-jocb-ozskd acid ( 19) 29 mg iron- 1 [...] Recently Administered Medications Times are shown in KILN LABOURER. Scheduled Medication Order 10/14/2021 10/15/2021 10/16/2021 ceFAZolin [...] 2 documented in this encounter Care Teams Theatrical Variety Agent Relationship Specialty Start Date End Date Citlaly Ramos DO [address] [place] [address] PCP - General Family Medicine 10/03/21 documented as of this encounter
--- OUTSIDE RECORDS SUMMARY | 2024-09-25 20:13 | XMS_ITS | Encounter Summary ---
Author Organization [facility] Healthcare Address [address] [place] [address] Care Team Providers Care Cell Builder Name Role Phone TierraCitlaly avalos Primary Care Provider [phone] Reason for Referral * Diagnostic Imaging (Routine) - Closed Specialty Diagnoses / Procedures Referred By Norm benjamin Referred To Contact Radiology Diagnoses Hydronephrosis, unspecified hydronephrosis type Kidney stones Procedures CT Abdomen Pelvis WO Contrast Tye Woods MD Phone: tel: fax: [address] [phone] Referral ID Status Reason Start Date Expiration Date Visits Re quested Visits Authorized [id number] Closed 10/03/2021 11/02/2022 1 1 Y PILOT Reason for Visit * Diagnostic Imaging (Routine) - Closed Specialty Diagnoses / Procedures Referred By Norm benjamin Referred To Contact Radiology Diagnoses Hydronephrosis, unspecified hydronephrosis type Kidney stones Procedures CT Abdomen Pelvis WO Contrast Tye Woods MD Phone: tel: fax: [address] [address] Referral ID Status Reason Start Date Expiration Date Visits Re quested Visits Authorized [id number] Closed 10/03/2021 11/02/2022 1 1 Encounter Details Date Type Department Care Team (Latest Contact Info) Description 10/14/2021 7:30 AM SPRAY PILOT - 10/14/2021 11:59 PM SPRAY PILOT Hospital Encounter [facility] Imaging and Radiology [id number] [place] [phone] Tye Woods MD [address] [place] [address] Hydronephrosis, unspecified hydronephrosis type; Kidney stones Discharge [...] on file Legal Sex Female 1:00 AM SPRAY PILOT Gender Identity Not on file Sexual [...] Read Routine (OP Routine) 10/14/2021 8:50 AM SPRAY PILOT Hydronephrosis, unspecified hydronephrosis type Kidney stones documented in this encounter Results * CT Abdomen Pelvis WO Contrast (10/14/2021 8:50 AM SPRAY PILOT) Anatomical Region Laterality Modality Body N/A Computed Tomogra phy 10/14/2021 11:5 4 AM SPRAY PILOT Impressions 10/14/2021 11:54 AM SPRAY PILOT 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 RIGHT DOUBLE-J STENT WELL-POSITIONED. 2 SMALL CALCULI LOWER POLE RIGHT KIDNEY. MINUTE CALCULUS UPPER POLE LEFT KIDNEY. Electronically signed by: Deshawn Dennison 10/14/2021 11:54 AM SPRAY PILOT EXAMINATION: CT ABDOMEN PELVIS WO CONTRAST dated 10/14/2021 7:30 AM HISTORY: 31-year-old woman history of kidney stones with hydronephrosis and flank pain retained stent right side TECHNIQUE: Spiral noncontrast CT with multiplanar reconstructions FINDINGS: Correlation is made with an outside ultrasound of the kidneys dated 09/24/2021 demonstrating hydronephrosis or renal calculi. Images do not the report available. Precast Molder radiograph demonstrates a double-J stent on the [...] calculi. Images do not the report available. Precast Molder radiograph demonstrates a double-J stent on the [...] kidney documented in this encounter Care Teams Cell Builder Relationship Specialty Start Date End Date Citlaly Ramos DO [address] [place] [address] PCP - General Family Medicine 10/03/21 documented as of this encounter
--- OUTSIDE RECORDS SUMMARY | 2024-09-25 20:13 | XMS_ITS | Encounter Summary ---
Author Organization [facility] Address [address] [place] [address] Phone Care Team Providers Care Stock Preparation Supervisor Name Role Phone Citlaly Ramos DO Primary Care Provider [phone] Encounter Details Date Type Department Care Team (Late st Contact Info) Description 10/14/2021 Telephone [facility] Surgery [address] [place], [place] [phone] Susana Lopez CMA Social History Tobacco Use [...] on file Legal Sex Female 1:00 AM PROGRAMMER NUMERICAL CONTROL Gender Identity Not on file Sexual Orientation Not on file documented as of this encounter Miscellaneous Notes * Telephone Encounter - Jennifer Jeter - 10/14/2021 2:08 PM CST Called pharmacy because this is the first time they are filling it the dose can only be for a max of 6. If she has refills they can be for a max of 8. RAMMER NUMERICAL CONTROL * Telephone Encounter - Susana Lopez CMA - 10/14/2021 11:58 AM PROGRAMMER NUMERICAL CONTROL Pharm called the rx for Oxycodone is considered a high dose they are asking if we can change it to max 6 per day to have it filled. RAMMER NUMERICAL CONTROL documented in this encounter Plan of Treatment Not on file documented as of this encounter Visit Diagnoses Not on filedocumented in this encounter Care Teams Stock Preparation Supervisor Relationship Specialty Start Date End Date Citlaly Ramos DO [address] [place] [address] PCP - General Family Medicine 10/03/21 documented as of this encounter
--- OUTSIDE RECORDS SUMMARY | 2024-09-25 20:13 | XMS_ITS | Encounter Summary ---
Author Organization [facility] [place] [facility] Address [address] [place] [address] Phone Care Team Providers Care Vacuum Cleaner Assembler Name Role Phone Citlaly Ramos DO Primary Care Provider [phone] Reason for Visit * Reason Comments Return Patient * Consultation (Routine) - Closed Specialty Diagnoses / Procedures Referred By Norm benjamin Referred To Contact Urology Diagnoses Hydronephrosis, unspecified hydronephrosis type Kidney stones Referral, Self [facility] (All Locations) Referral ID Status Reason Start Date Expiration Date V isits Requested Visits Authorized [id number] Closed Specialty Services Required 09/27/2021 10/27/2022 99 99 Encounter Details Date Type Department Care Team (Late st Contact Info) Description 10/14/2021 8:10 AM INSULATION BLANKET MAKER Office Visit [facility]) - [facility] Urology [id number] [place] [phone] Tye Woods MD [address] [place] [address] Kidney stone (Primary Dx) Social History Tobacco [...] on file Legal Sex Female 1:00 AM INSULATION BLANKET MAKER Gender Identity Not on file Sexual [...] times. Last one with Dr. Zamora at [facility] in January2021 and has a [...] Modality Abdomen -- Ultrasound Narrative Performed by [facility] RADIOLOGY RENAL ULTRASOUND HISTORY: Horseshoe kidney and [...] since January of last year. Treated at [facility] before. Has flank pain. Urine culture negative. Discussed management options including right ureteroscopic laser lithotripsy and ureteral stent exchange. ESWL also discussed including PCNL. Complications of URS explained including uti, sepsis, hematuria, stent complications, ureteral stricture or perforation, unable to retrieve all of stones. Needs covid test. Tye Woods MD Urology Division [facility] [place] [facility] Office [phone] 10/14/2021 8:56 AM . LATION BLANKET MAKER documented in this encounter Miscellaneous Notes * Addendum Note - Tru Funez RMA - 10/14/2021 8:10 AM CSTAddended by: TRU FUNEZ on: 10/14/2021 09:18 AM Modules accepted: Orders LATION BLANKET MAKER documented in this encounter Plan of Treatment Not on file documented as of this encounter Results * COVID-19 Coronavirus RNA Nasopharyngeal (10/14/2021 9:51 AM INSULATION BLANKET MAKER) COVID-19 RNA Not Detected ZAKI CHAIREZ Comment: Interpretive Data Synonyms for this test include: PCR and NAAT . ??Testing performed by the [facility] Molecular Infectious Disease Laboratory. The 2019-Novel Coronavirus [...] on October 11, 2020. Testing performed by: [facility], [address] [place] [address], [id number] First COVID-19 test? No CERNER Comment:Testing performed by : [facility], [address] [place] [address], [id number] Employeed in healthcare? No CERNER Comment:Testing performed by : [facility], [address] [place] [address], [id number] status? No CERNER Comment:Testing performed by : [facility], [address] [place] [address], [address] Group care resident? No CERNER Comment:Testing performed by : [facility], [address] [place] [address], [id number] Hospitalized? No CERNER Comment:Testing performed by : [facility], [address], [address] Is patient in ICU? No CERNER Comment:Testing performed by : [facility], [address] [place] [address], [id number] Symptomatic as defined by CDC? No CERNER Comment:Testing performed by : [facility], [address] [place] [address], [id number] Nasopharyngeal 10/14/2021 9: 51 AM INSULATION BLANKET MAKER 10/14/2021 9:01 PM INSULATION BLANKET MAKER Jon HAINES - 10/15/2021 5:26 AM INSULATION BLANKET MAKER What is the reason for testing?->Screening prior to scheduled??procedure or surgery??(Batched) Tye Woods MD LAB MICROBIOLOGY - G[place] [id number] Adriana Navarrete Department [place] [address] documented in this encounter Visit [...] 1 Taablet Daily for Depression 08/12/2016 2 ma702-hzgt-lgfxn acid ( 19) 29 mg iron- 1 [...] 2 added in this encounter Care Teams Vacuum Cleaner Assembler Relationship Specialty Start Date End Date Citlaly Ramos DO [address] [place] [address] PCP - General Family Medicine 10/03/21 documented as of this encounter
--- OUTSIDE RECORDS SUMMARY | 2024-09-25 20:13 | XMS_ITS | Encounter Summary ---
Author Organization [facility] Address [address] [place] [address] Phone Care Team Providers Care Radiology Receptionist Name Role Phone Citlaly Ramos DO Primary Care Provider [phone] Encounter Details Date Type Department Care Team (Late st Contact Info) Description 10/10/2021 Telephone [facility]) [facility] Urology [address] [facility] [address], [place] [address] Tye Woods MD [address] [place] [address] Social History Tobacco Use Types Packs/Day Years Used Date Smoking Tobacco: Every Day Smokeless Tobacco: Never Comments No Sex and Gender Information Value Date Recorded Sex Assigned at Not on file Legal Sex Female 1:00 AM ELECTRICAL CALIBRATOR Gender Identity Not on file Sexual Orientation Not on file documented as of this encounter Miscellaneous Notes * Telephone Encounter - Reba Zamudio RN - 10/10/2021 3:32 PM CST Sent patient my chart message with below inforamtion ----- Message from Tye Woods MD sent at 10/10/2021 1:29 PM ELECTRICAL CALIBRATOR ----- Regarding: RE: Pain medication refill Brannon Britton is not allowing to eprescribe toradol or tyelenol #3. My imprivata is not working. She can tryaleve 1 tab bid po. If not she can come tomorrow to our office to brass pickler prescription or can get it thru her PCP. Sorry Thanks ----- Message ----- From: Reba Zamudio RN Sent: 10/09/2021 3:17 PM ELECTRICAL CALIBRATOR To: Tye Woods MD Subject: Pain medication refill Pt would like to see if she can get some pain medication sent to pharmacy all ED medication is gonept was schedule to see MD tomorrow but bc of weather she is post poned for Thursday. Pt is allergic to Vicodin. Pharmacy of choice is [facility] [place]. TRICAL CALIBRATOR TRICAL CALIBRATOR documented in this encounter Plan of Treatment Not on file documented as of this encounter Visit Diagnoses Not on filedocumented in this encounter Care Teams Radiology Receptionist Relationship Specialty Start Date End Date Citlaly Ramos DO [address] [place] [address] PCP - General Family Medicine 10/03/21 documented as of this encounter
--- OUTSIDE RECORDS SUMMARY | 2024-09-25 20:13 | XMS_ITS | Encounter Summary ---
Author Organization [facility] Healthcare Address [address] [place] [address] Care Team Providers Care Patrol Captain Name Role Phone Citlaly Ramos DO Primary Care Provider [phone] Encounter Details Date Type Department Care Team (Late st Contact Info) Description 10/14/2021 3:00 PM COST CONTROL SPECIALIST Lab [address] [phone] Kidney stone Social History Tobacco Use Types [...] on file Legal Sex Female 1:00 AM COST CONTROL SPECIALIST Gender Identity Not on file Sexual Orientation Not on file documented as of this encounter Plan of Treatment Not on file documented as of this encounter Procedures Procedure Name Priority Date/Time Associated Diagnosis Comments COVID-19 CORONAVIRUS RNA Routine 10/14/2021 9:51 AM COST CONTROL SPECIALIST Kidney stone documented in this encounter Results * COVID-19 Coronavirus RNA Nasopharyngeal (10/14/2021 9:51 AM COST CONTROL SPECIALIST) COVID-19 RNA Not Detected ZAKI CHAIREZ Comment: Interpretive Data Synonyms for this test include: PCR and NAAT . ??Testing performed by the [facility] Molecular Infectious Disease Laboratory. The 2019-Novel Coronavirus [...] on October 11, 2020. Testing performed by: [facility], [address] [place] [address], [id number] First COVID-19 test? No CERNER CH Comment:Testing performed by : [facility], [address] [place] [address], [id number] Employeed in healthcare? No CERNER CH Comment:Testing performed by : [facility], [address] [place] [address], [id number] status? No CERNER CH Comment:Testing performed by : [facility], [address] [place] [address], [address] Group care resident? No CERNER CH Comment:Testing performed by : [facility], [address] [place] [address], [address] Hospitalized? No CERNER CH Comment:Testing performed by : [facility], [address] [place] [address], [address] Is patient in ICU? No CERNER CH Comment:Testing performed by : [facility], [address] [place] [address], [id number] Symptomatic as defined by CDC? No CERNER CH Comment:Testing performed by : [facility], [address] [place] [address], [id number] Nasopharyngeal 10/14/2021 9: 51 AM COST CONTROL SPECIALIST 10/14/2021 9:01 PM COST CONTROL SPECIALIST [facility] CERNER - 10/15/2021 5:26 AM COST CONTROL SPECIALIST What is the reason for testing?->Screening prior to scheduled??procedure or surgery??(Batched) us Tye Woods MD LAB MICROBIOLOGY - GENE RAL ORDERABLES Final Result [place] [id number] Adriana Navarrete Department [place] [address] documented in this encounter Visit Diagnoses Diagnosis Kidney stone Calculus of kidney documented in this encounter Care Teams Patrol Captain Relationship Specialty Start Date End Date Citlaly Ramos DO [address] [place] [address] PCP - General Family Medicine 10/03/21 documented as of this encounter
--- OUTSIDE RECORDS SUMMARY | 2024-09-25 20:14 | XMS_ITS | Encounter Summary ---
Author Organization [facility] Facility Care Team Providers Care Dungeon Master Name Role Phone Unavailable Primary Care Provider Unavailabl e Encounter Details Date Type Department Care Team (Late st Contact Info) Description 03/13/2014 - 09/06/2014 11:59 PM MEASURING MACHINE OPERATOR Hospital Encounter [facility] Social History Tobacco Use Types Packs/Day Years Used Date Smoking Tobacco: Never Assessed Comments Unknown Sex and Gender Information Value Date Recorded Sex Assigned at Not on file Legal Sex Female 1:00 AM MEASURING MACHINE OPERATOR Gender Identity Not on file Sexual Orientation Not on file documented as of this encounter Medications at Time of Discharge albuterol HFA (PROVENTIL HFA,VENTOLIN HFA,PROAIR HFA) 90 mcg/actuation inhaler INHALE 1-2 PUFFS EVERY 4-6 HOURS NEEDED AND DIRECTED. for asthma 04/24/2014 [id number]-byam-woszt acid ( 19) 29 mg iron- 1 [...] RESULTS - 03/13/2014 5:19 PM CDT ? [facility] ? Department of Laboratories ?[place] [address] ?Brandon Toussaint MD ?[address] ?[place] [address] Patient Name: ? ALYSHA JOLLEY Med Rec Number: ?? [id number] Date of : ?1990 Gender/Age: ? Male [...] and children were not included. ??(Diabetes Care 31:2669-0896, 2008). ??The eAG is not equivalent to a fasting glucose. us Historical Provider LAB BLOOD ORDERABLES Becky l Result HISTORICAL RESULTS * Blood hemoglobin A1C (03/13/2014 10:25 AM CDT) [facility] Hgb A1C 4.1 4.0 - 6.0 % HISTORICAL RESULTS Estimated average glucose 71 mg/dl HISTORICAL RESULTS Comment: The ADA recommends reporting an estimated Average Glucose (eAG) with all Hemoglobin A1c results using the equation derived from a study of 507 normal and diabetic adults. ??Minority populations were underrepresented and children were not included. ??(Diabetes Care 31:8383-7391, 2007). ??The eAG is not equivalent to a fasting glucose. Blood specimen (specimen) 03/13/2014 10:25 AM CDT Brandon Toussaint MD LAB BLOOD ORDERABLES Final Resul t HISTORICAL RESULTS documented in this encounter Visit Diagnoses Not on filedocumented in this encounter
--- OUTSIDE RECORDS SUMMARY | 2024-09-25 20:14 | XMS_ITS | Encounter Summary ---
Author Organization [facility] Facility Care Team Providers Care Stratigrapher Name Role Phone Unavailable Primary Care Provider Unavailabl e Encounter Details Date Type Department Care Team (Late st Contact Info) Description 08/18/2016 12:27 PM UMBRELLA TIPPER MACHINE - 08/18/2016 11:59 PM UMBRELLA TIPPER MACHINE Hospital Encounter [facility] CL[facility] Michael MD [id number] [place] [address] Encounter for issue of repeat prescription; Gonococcal infection Social History Tobacco Use Types Packs/Day Years Used Date Smoking Tobacco: Never Assessed Comments Unknown Sex and Gender Information Value Date Recorded Sex Assigned at Not on file Legal Sex Female 1:00 AM UMBRELLA TIPPER MACHINE Gender Identity Not on file Sexual Orientation Not on file documented as of this encounter Medications at Time of Discharge albuterol HFA (PROVENTIL HFA,VENTOLIN HFA,PROAIR HFA) 90 mcg/actuation inhaler INHALE 1-2 PUFFS EVERY 4-6 HOURS NEEDED AND DIRECTED. for asthma 04/24/2014 medroxyPROGESTER one (medroxyPROGESTE Isidro) 150 mg/mL injection Inject into the muscle as instructed 10/02/2014 2 po128-agkl-ajlwu acid ( 19) 29 mg iron- 1 [...]
--- OUTSIDE RECORDS SUMMARY | 2024-09-25 20:14 | XMS_ITS | Encounter Summary ---
Author Organization [facility] Facility Care Team Providers Care Event Sales Assistant Name Role Phone Unavailable Primary Care Provider Unavailabl e Encounter Details Date Type Department Care Team (Latest Contact Info) Description 05/07/2015 2:52 PM CDT - 05/07/2015 4:00 PM CDT Hospital Encounter [facility] Gabriela Fairbanks MD [address] [facility] [address] [place] [address] Gynecology Encounter for routine gynecological examination; Vaginitis and vulvovaginitis; Bacterial infection in conditions classified elsewhere Social History Tobacco Use Types Packs/Day Years Used Date Smoking Tobacco: Never Assessed Comments Unknown Sex and Gender Information Value Date Recorded Sex Assigned at Not on file Legal Sex Female 1:00 AM CONVERSION DEVELOPER Gender Identity Not on file Sexual Orientation Not on file documented as of this encounter Medications at Time of Discharge albuterol HFA (PROVENTIL HFA,VENTOLIN HFA,PROAIR HFA) 90 mcg/actuation inhaler INHALE 1-2 PUFFS EVERY 4-6 HOURS NEEDED AND DIRECTED. for asthma 04/24/2014 medroxyPROGESTER one (medroxyPROGESTE Isidro) 150 mg/mL injection Inject into the muscle as instructed 10/02/2014 2 ug180-flkc-gvinp acid ( 19) 29 mg iron- 1 [...] trachomatis and Neisseria gonorrhoeae using target capture,and Third Shift Lieutenant-Mediated Amplification (TMA). This test is approved by the [place] Food and Drug Administration for endocervical, vaginal, and male urethral swab specimens, in addition to male and female urine specimens. The performance characteristics for these specimen types have been verified by the [facility].The performance characteristics of this assay for pharyngeal and rectal specimens collected from cervical swab collection devices have been validated and verified by the [facility]. Verification studies support a lack [...] RESULTS - 05/08/2015 3:58 PM CDT ? [facility] ?[address] [facility] ?[place] [address] ? Patient Name: ??JUMANA RIVERS ? Med Rec Number: [id number] ? Fin Number: ?[id number] ? Date: ?1990 ? Sex/Age: ? Female 25 years ? Admit Date: ?05/07/2015 ? Discharge Date: 05/07/2015 ? Doctor: ?Aicha Bucio ? Facility: ?[facility] ? Location: ?CLOG ?* Abnormal ??A Alert [...] * * ? (1)Testing performed by the [employer]Probe [employer] APTIMA Combo 2 Assay. ? This nucleic acid amplification test (NAAT) detects ribosomal ? RNA (rRNA) from Chlamydia trachomatis and Neisseria gonorrhoeae ? using target capture,and Third Shift Lieutenant-Mediated Amplification ? (TMA). This test is approved by the [place] Food and Drug ? Administration for endocervical, vaginal, and male urethral swab ? specimens, in addition to male and female urine specimens. The ? performance characteristics for these specimen types have been ? verified by the [facility]. ? The performance characteristics of this assay for pharyngeal and ? rectal specimens collected from cervical swab collection devices ? have been validated and verified by the [facility]. Verification studies support a [...]
--- OUTSIDE RECORDS SUMMARY | 2024-09-25 20:14 | XMS_ITS | Encounter Summary ---
Author Organization [facility] Facility Care Team Providers Care Game Protector Name Role Phone Unavailable Primary Care Provider Unavailabl e Encounter Details Date Type Department Care Team (Late st Contact Info) Description 08/18/2014 9:41 PM BOAT HAND - 08/18/2014 9:48 PM BOAT HAND Hospital Encounter [facility] Social History Tobacco Use Types Packs/Day Years Used Date Smoking Tobacco: Never Assessed Comments Unknown Sex and Gender Information Value Date Recorded Sex Assigned at Not on file Legal Sex Female 1:00 AM BOAT HAND Gender Identity Not on file Sexual Orientation Not on file documented as of this encounter Medications at Time of Discharge albuterol HFA (PROVENTIL HFA,VENTOLIN HFA,PROAIR HFA) 90 mcg/actuation inhaler INHALE 1-2 PUFFS EVERY 4-6 HOURS NEEDED AND DIRECTED. for asthma 04/24/2014 vb201-arrt-ujqxk acid ( 19) 29 mg iron- 1 mg tablet,chewable CHEW AND SWALLOW 1 TABLET DAILY. as supplement 07/18/2014 2 documented as of this encounter Plan of Treatment Not on file documented as of this encounter Visit Diagnoses Not on filedocumented in this encounter
--- OUTSIDE RECORDS SUMMARY | 2024-09-25 20:14 | XMS_ITS | Encounter Summary ---
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
--- OUTSIDE RECORDS SUMMARY | 2024-09-25 20:14 | XMS_ITS | Encounter Summary ---
Author Organization [facility] Facility Care Team Providers Care Etl Developer Name Role Phone Unavailable Primary Care Provider Unavailabl e Encounter Details Date Type Department Care Team (Latest Contact Info) Description 10/02/2014 8:52 AM DIRECTOR INTERNAL CONTROL - 10/02/2014 4:00 PM [facility] Hospital Encounter [facility] Gabriela Fairbanks MD [address] [facility] [address] [place] [address] Gynecology Routine follow-up; Encounter for surveillance of other contraceptive; examination or test, negative result Social History Tobacco Use Types Packs/Day Years Used Date Smoking Tobacco: Never Assessed Comments Unknown Sex and Gender Information Value Date Recorded Sex Assigned at Not on file Legal Sex Female 1:00 AM DIRECTOR INTERNAL CONTROL Gender Identity Not on file Sexual Orientation Not on file documented as of this encounter Medications at Time of Discharge albuterol HFA (PROVENTIL HFA,VENTOLIN HFA,PROAIR HFA) 90 mcg/actuation inhaler INHALE 1-2 PUFFS EVERY 4-6 HOURS NEEDED AND DIRECTED. for asthma 04/24/2014 medroxyPROGESTER one (medroxyPROGESTE Isidro) 150 mg/mL injection Inject into the muscle as instructed 10/02/2014 2 ah645-fogd-xcifd acid ( 19) 29 mg iron- 1 mg tablet,chewable CHEW AND SWALLOW 1 TABLET DAILY. as supplement 07/18/2014 2 documented as of this encounter Plan of Treatment Not on file documented as of this encounter Procedures Procedure Name Priority Date/Time Associated Diagnosis Comments URINE CHORIONIC GONADOTROPIN (HCG) Routine 10/02/2014 9:23 AM DIRECTOR INTERNAL CONTROL DISCHARGE LABORATORY CUMULATIVE REPORT Routine 10/02/2014 12:00 AM DIRECTOR INTERNAL CONTROL documented in this encounter Results * Urine chorionic gonadotropin (HCG) (10/02/2014 9:23 AM DIRECTOR INTERNAL CONTROL) HCG, ur Negative HISTORICAL RESULTS Urine 10/02/2014 9:23 AM DIRECTOR INTERNAL CONTROL us Historical Provider LAB BLOOD ORDERABLES Becky paula Result HISTORICAL RESULTS * Discharge Laboratory Cumulative Report (10/02/2014 12:00 AM DIRECTOR INTERNAL CONTROL) 10/02/2014 Narrative HISTORICAL RESULTS - 10/03/2014 11:26 AM DIRECTOR INTERNAL CONTROL ?[facility] ?Department of Laboratories ? [address] [facility] [address] ? [place] [address] Patient Name: ??JUAMNA RIVERS [facility] Rec Number: [id number] Fin Number: ?[id number] Date: ?1990 Sex/Age: ? Female 24 years Admit Date: ?10/02/2014 Discharge Date: 10/02/2014 Doctor: ?Gynecology, Resident Facility: ?[facility] Location: ?CLOG Chart Printed: 10/03/2014 11:26 ?? [...]
--- OUTSIDE RECORDS SUMMARY | 2024-09-25 20:14 | XMS_ITS | Encounter Summary ---
Author Organization [facility] Facility Care Team Providers Care Abrasive Mixer Name Role Phone Unavailable Primary Care Provider Unavailabl e Encounter Details Date Type Department Care Team (Late st Contact Info) Description 09/18/2015 - 09/18/2015 11:59 PM ORNAMENT STITCHER Hospital Encounter [facility] Montserrat Woodall MD [address] [address] Social History Tobacco Use Types Packs/Day Years Used Date Smoking Tobacco: Never Assessed Comments Unknown Sex and Gender Information Value Date Recorded Sex Assigned at Not on file Legal Sex Female 1:00 AM ORNAMENT STITCHER Gender Identity Not on file Sexual Orientation Not on file documented as of this encounter Medications at Time of Discharge albuterol HFA (PROVENTIL HFA,VENTOLIN HFA,PROAIR HFA) 90 mcg/actuation inhaler INHALE 1-2 PUFFS EVERY 4-6 HOURS NEEDED AND DIRECTED. for asthma 04/24/2014 medroxyPROGESTER one (medroxyPROGESTE Isidro) 150 mg/mL injection Inject into the muscle as instructed 10/02/2014 2 bk685-pmny-wxbne acid ( 19) 29 mg iron- 1 mg tablet,chewable CHEW AND SWALLOW 1 TABLET DAILY. as supplement 07/18/2014 2 documented as of this encounter Plan of Treatment Not on file documented as of this encounter Visit Diagnoses Not on filedocumented in this encounter
--- OUTSIDE RECORDS SUMMARY | 2024-09-25 20:14 | XMS_ITS | Encounter Summary ---
Author Organization [facility] Healthcare Address [address] [place] [address] Care Team Providers Care Pocket And Pulley Machine Operator Name Role Phone Citlaly Ramos DO Primary Care Provider [phone] Encounter Details Date Type Department Care Team (Latest Contact Info) Description 10/03/2021 10:[address]IN DRIVER - 10/03/2021 11:[address] TRAIN DRIVER Hospital Encounter [facility] [address] [place] [address] Discharge Disposition: Discharge to home or self care Social History Tobacco Use Types Packs/Day Years Used Date Smoking Tobacco: Every Day Smokeless Tobacco: Never Comments No Sex and Gender Information Value Date Recorded Sex Assigned at Not on file Legal Sex Female 1:[address] DRIVER Gender Identity Not on file Sexual [...] 6 (six) hours as needed 09/24/2021 2 av334-gyfu-qimhw acid ( 19) 29 mg iron- 1 [...] OF OUTSIDE FILMS Routine 10/03/2021 10:[address]IN DRIVER Diagnosis unknown documented in this encounter Results * US Outside Reference (10/03/2021 10:[address]IN DRIVER) Impressions [facility] - 10/03/2021 10:[address] DRIVER These images are for Reference purposes only and have not been reviewed by [facility]. ??There will be no report generated by a [facility] Radiologist. Narrative [facility] - 10/03/2021 10:[address]IN DRIVER EXAMINATION: ??Images For Reference Purposes Only us Tye Woods MD IMG US PROCEDURES Final Result [facility] documented in this encounter Visit Diagnoses Not on filedocumented in this encounter Care Teams Pocket And Pulley Machine Operator Relationship Specialty Start Date End Date Citlaly Ramos DO [address] [place] [address] PCP - General Family Medicine 10/03/21 documented as of this encounter
--- OUTSIDE RECORDS SUMMARY | 2024-09-25 20:14 | XMS_ITS | Encounter Summary ---
Author Organization [facility] Facility Care Team Providers Care Mixer Whipped Topping Name Role Phone Unavailable Primary Care Provider Unavailabl e Encounter Details Date Type Department Care Team (Late st Contact Info) Description 08/20/2014 7:51 AM DIRECTOR CLIENT - 08/21/2014 10:57 AM DIRECTOR CLIENT Hospital Encounter [facility] Khadra Pfeiffer MD [address] [phone] [place] [address] Social History Tobacco Use Types Packs/Day Years Used Date Smoking Tobacco: Never Assessed Comments Unknown Sex and Gender Information Value Date Recorded Sex Assigned at Not on file Legal Sex Female 1:00 AM DIRECTOR CLIENT Gender Identity Not on file Sexual Orientation Not on file documented as of this encounter Last Filed Vital Signs Vital Sign Reading Time Taken Comments Blood Pressure 135/76 08/20/2014 7:51 AM DIRECTOR CLIENT Pulse 124 08/20/2014 11:53 AM DIRECTOR CLIENT Temperature - - Respiratory Rate - - Oxygen Saturation 100% 08/20/2014 11:53 AM DIRECTOR CLIENT Inhaled Oxygen Concentration - - Weight - - Height - - Body Mass Index - - documented in this encounter Medications at Time of Discharge albuterol HFA (PROVENTIL HFA,VENTOLIN HFA,PROAIR HFA) 90 mcg/actuation inhaler INHALE 1-2 PUFFS EVERY 4-6 HOURS NEEDED AND DIRECTED. for asthma 04/24/2014 rq745-wdgb-txzfy acid ( 19) 29 mg iron- 1 mg tablet,chewable CHEW AND SWALLOW 1 TABLET DAILY. as supplement 07/18/2014 2 documented as of this encounter Plan of Treatment Not on file documented as of this encounter Procedures Procedure Name Priority Date/Time Associated Diagnosis Comments DISCHARGE LABORATORY CUMULATIVE REPORT Routine 08/21/2014 12:00 AM DIRECTOR CLIENT SURGICAL PATHOLOGY 08/21/2014 BLOOD HUMAN IMMUNODEFICIENCY VIRUS Routine 08/20/2014 2:43 PM DIRECTOR CLIENT BLOOD CELL COUNT (CBC) Routine 4 11:58 AM DIRECTOR CLIENT BLOOD ABO, RH, INDIRECT AB SCREEN Routine 08/20/2014 11:58 AM DIRECTOR CLIENT documented in this encounter Results * Surgical pathology (08/21/2014) Narrative 08/21/2014 Ordered by an unspecified provider. us Historical Provider MD LAB PATHOLOGY ORDERABLES Final Result * Discharge Laboratory Cumulative Report (08/21/2014 12:00 AM DIRECTOR CLIENT) 08/21/2014 Narrative HISTORICAL RESULTS - 08/21/2014 11:24 AM DIRECTOR CLIENT ?[facility] ?Department of Laboratories ? [address] [facility] [address] ? [place], [place] [address] Patient Name: ??SAMREENJUMANA [facility] Rec Number: [id number] Fin Number: ?[id number] Date: ?1990 Sex/Age: ? Female 24 years Admit Date: ?08/20/2014 Discharge Date: 08/21/2014 Doctor: ?Robbins , Khadra J Facility: ?[facility] Location: ?LD Chart Printed: 08/21/2014 [...] ?Test: Neut Pct Auto ??Lymph Pct Auto ??Brantley Pct Auto ? Reference: [38.7-74.5] ?[20.0-54.3] ? [...] 0.8 ?8.7 ??H ?Test: Lymph Abs Auto ??Brantley Abs Auto ??Eos Abs Auto ? Reference: [...] ORDERABLES Becky l Result Performing Organization Address [facility] de Phone Number HISTORICAL RESULTS * Blood Human Immunodeficiency virus [HIV] rapid screen (08/20/2014 2:43 PM DIRECTOR CLIENT) Pathologist [facility] HIV ab Negative HISTORICAL RESULTS Blood specimen (specimen) 08/20/2014 2:43 PM DIRECTOR CLIENT Khadra Robbins MD LAB BLOOD ORDERABLES Final R esult Performing Organization Address [facility] de Phone Number HISTORICAL RESULTS * (ABNORMAL) Blood cell count (CBC) (08/20/2014 11:58 AM DIRECTOR CLIENT) WBC 11.7(H) 3.8 - 9.8 K/cumm HISTORICAL [...] RESULTS Blood specimen (specimen) 08/20/2014 11:58 AM DIRECTOR CLIENT Khadra Robbins MD LAB BLOOD ORDERABLES Final R esult Performing Organization Address City/State/[facility] Co de Phone Number HISTORICAL RESULTS * Blood ABO, Rh, indirect ab screen (08/20/2014 11:58 AM DIRECTOR CLIENT) Gabby, indirect Negative HISTORICAL RESULTS ABO, Rho(D) O Positive HISTORI SANTHOSH RESULTS Blood specimen (specimen) 08/20/2014 11:58 AM DIRECTOR CLIENT Khadra Robbins MD LAB BLOOD ORDERABLES Final R esult Performing Organization Address City/State/[facility] Co de Phone Number HISTORICAL RESULTS documented in this encounter Visit Diagnoses Not on filedocumented in this encounter
--- OUTSIDE RECORDS SUMMARY | 2024-09-25 20:14 | XMS_ITS | Encounter Summary ---
Author Organization [facility] Healthcare Address [address] [place] [address] Care Team Providers Care Machine I Trimmer Name Role Phone Aicha Bucio NP Primary Care Provider Encounter Details Date Type Department Care Team (Late st Contact Info) Description 02/06/2017 1:17 PM CDT - 02/06/2017 3:09 PM CDT Emergency [facility] [address] [place] [address] Randi Jose NP [address] [place] [address] Junior Hamlin MD [facility] 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 for asthma 04/24/2014 medroxyPROGESTER one (medroxyPROGESTE Isidro) 150 mg/mL injection Inject into the muscle as instructed 10/02/2014 2 dp256-uspc-xyrcw acid ( 19) 29 mg iron- 1 [...] Trichomonas Antigen (02/06/2017 2:15 PM CDT) Pathologist [facility] Trichomonas ag, fld Negative Negative ZAKI CHAIREZ Vaginal 02/06/2017 2:15 PM CDT 02/06/2017 2:34 PM CDT Randi Jose NP LAB BLOOD ORDERABLES Final Result ZAKI [id number] [address] [place] [address] * Chlamydia trachomatis by NA Amp, urine (02/06/2017 1:50 PM CDT) Pathologist [facility] C. trachomatis RNA Negative Negative ZAKI Comment: [...] and its performance characteristics were determined by [facility]. This testing has not been cleared or approved by the Food and Drug Administration. Current Interpretive Data was last revised on 2016 Urine/Blood 02/06/2017 1:50 PM CDT 02/06/2017 2:05 PM CDT Randi Jose NP LAB URINE ORDERABLES Final Result Performing Organization Address [facility] de Phone Number ZAKI [phone] [address] [facility] [place] [address] * N. Gonorrhoeae NA Amp, [...] and its performance characteristics were determined by [facility]. This testing has not been cleared or approved by the Food and Drug Administration. Current Interpretive Data was last revised on 2016 Urine/Blood 02/06/2017 1:50 PM CDT 02/06/2017 2:05 PM CDT Randi Jose NP LAB URINE ORDERABLES Final Result Performing Organization Address City/[facility] Co de Phone Number ZAKI [address] [address] Department [place] [address] * (ABNORMAL) Urinalysis, microscopic (02/06/2017 1:50 PM [...] LAB URINE ORDERABLES Final Result ZAKI CHAIREZ [address] [address] [place] [address] * (ABNORMAL) Urinalysis reflex to [...] G ENERAL ORDERABLES Final Result ZAKI CHAIREZ [address] [address] [employer] [place], [place] [id number] documented in this encounter Visit Diagnoses Not on filedocumented in this encounter Care Teams Machine I Trimmer Relationship Specialty Start Date End Date Aicha Bucio NP PCP - General 02/06/17 02/23/17 documented as of this encounter
--- OUTSIDE RECORDS SUMMARY | 2024-09-25 20:14 | XMS_ITS | Encounter Summary ---
Author Organization [facility] Healthcare Address [address] [place] [address] Care Team Providers Care Gyn Physician Name Role Phone Citlaly Ramos DO Primary Care Provider Encounter Details Date Type Department Care Team (Late st Contact Info) Description 10/03/2021 7:20 PM HEALTH OUTREACH WORKER Lab [address] [phone] Hydronephrosis, unspecified hydronephrosis type; Kidney stones Social History Tobacco Use Types Packs/Day Years Used Date Smoking Tobacco: Every Day Smokeless Tobacco: Never Comments No Sex and Gender Information Value Date Recorded Sex Assigned at Not on file Legal Sex Female 1:00 AM HEALTH OUTREACH WORKER Gender Identity Not on file Sexual Orientation Not on file documented as of this encounter Plan of Treatment Not on file documented as of this encounter Procedures Procedure Name Priority Date/Time Associated Diagnosis Comments URINE CULTURE Routine 10/03/2021 9:14 AM HEALTH OUTREACH WORKER Hydronephrosis, unspecified hydronephrosis type Kidney stones documented in this encounter Results * Urine culture Urine, clean voided (10/03/2021 9:14 AM HEALTH OUTREACH WORKER) Report Final Report: Growth indicative of contamination with periurethral belle. Please submit a new specimen with special attention given to the collection process and to prompt transport to the laboratory. ZAKI CHAIREZ Comment:Testing performed by : [facility], [address] [facility] [place]., [address] Organism GROWTH INDICATES CONTAM WITH PERIURETHRAL BELLE. ZAKI Urine, clean voided 10/03/2021 9:14 AM HEALTH OUTREACH WORKER 10/03/2021 11:13 PM HEALTH OUTREACH WORKER Narrative ZAKI CHAIREZ - 10/05/2021 11:53 AM HEALTH OUTREACH WORKER Testing performed by [facility] Microbiology Laboratory ([phone]) Tye Woods MD LAB MICROBIOLOGY - GENE RAL ORDERABLES Final Result ZAKI [id number] [address] Department [place] [address] documented in this encounter Visit Diagnoses Diagnosis Hydronephrosis, unspecified hydronephrosis type Kidney stones Calculus of kidney documented in this encounter Care Teams Gyn Physician Relationship Specialty Start Date End Date Citlaly Ramos DO [address] [place] [phone] PCP - General Family Medicine 10/03/21 documented as of this encounter
--- OUTSIDE RECORDS SUMMARY | 2024-09-25 20:14 | XMS_ITS | Encounter Summary ---
Author Organization [facility] Address [address] [place] [address] Phone Care Team Providers Care Brick Baker Name Role Phone Citlaly Ramos DO Primary Care Provider [phone] Reason for Referral * Diagnostic Imaging (Routine) - Closed Specialty Diagnoses / Procedures Referred By Norm benjamin Referred To Contact Radiology Diagnoses Hydronephrosis, unspecified hydronephrosis type Kidney stones Procedures CT Abdomen Pelvis WO Contrast Tye Woods MD Phone: tel: fax: [address] [phone] Referral ID Status Reason Start Date Expiration Date Visits Re quested Visits Authorized [id number] Closed 10/03/2021 11/02/2022 1 1 ECT RESERVOIR ENGINEER Reason for Visit * Reason Comments New Patient kidney stone * Consultation (Routine) - Closed Specialty Diagnoses / Procedures Referred By Norm benjamin Referred To Contact Urology Diagnoses Hydronephrosis, unspecified hydronephrosis type Kidney stones Referral, Self [facility] (All Locations) Referral ID Status Reason Start Date Expiration Date V isits Requested Visits Authorized [id number] Closed Specialty Services Required 09/27/2021 10/27/2022 99 99 Encounter Details Date Type Department Care Team (Late st Contact Info) Description 10/03/2021 9:00 AM PROJECT RESERVOIR ENGINEER Office Visit [facility]) - [facility] Urology [address] [facility] [address] [address] Tye Woods MD [address] [place] [address] Hydronephrosis, unspecified hydronephrosis type (Primary Dx); Kidney stones Social History Tobacco Use Types Packs/Day Years Used Date Smoking Tobacco: Every Day Smokeless Tobacco: Never Comments No Sex and Gender Information Value Date Recorded Sex Assigned at Not on file Legal Sex Female 1:00 AM PROJECT RESERVOIR ENGINEER Gender Identity Not on file Sexual Orientation Not on file documented as of this encounter Last Filed Vital Signs Vital Sign Reading Time Taken Comments Blood Pressure 120/72 10/03/2021 9:13 AM PROJECT RESERVOIR ENGINEER Pulse 98 10/03/2021 9:13 AM PROJECT RESERVOIR ENGINEER Temperature 36.8 ??C (98.2 ??F) 10/03/2021 9:13 AM CS T Respiratory Rate - - Oxygen Saturation - - Inhaled Oxygen Concentration - - Weight 86.2 kg (190 lb) 10/03/2021 9:13 AM PROJECT RESERVOIR ENGINEER Height 162.6 cm (5' 4 ) 10/03/2021 9:13 AM PROJECT RESERVOIR ENGINEER Body Mass Index 32.61 10/03/2021 9:13 AM PROJECT RESERVOIR ENGINEER documented in this encounter Progress Notes * [...] times. Last one with Dr. Zamora at [facility] in January 2021 and has a ureteral [...] Modality Abdomen -- Ultrasound Narrative Performed by [facility] RADIOLOGY RENAL ULTRASOUND HISTORY: Horseshoe kidney [...] since January of last year. Treated at [facility] before. Has flank pain. Requested CT abd and pelvis, urine culture, cbc and bmp. Followup in 1 week with results and to discuss further management. Thank you for the consult. Tye Woods MD Urology Division [facility] Office [phone] 10/03/2021 9:27 AM ECT RESERVOIR ENGINEER documented in this encounter Miscellaneous Notes * Addendum Note - Michelle Luz - 10/03/2021 9:00 AM CSTAddended by: MICHELLE LUZ on: 10/03/2021 10:31 AM Modules accepted: Orders ECT RESERVOIR ENGINEER documented in this encounter Plan of Treatment Not on file documented as of this encounter Procedures Procedure Name Priority Date/Time Associated Diagnosis Comments POCT URINALYSIS DIPSTICK Routine 10/03/2021 9:15 AM PROJECT RESERVOIR ENGINEER Hydronephrosis, unspecified hydronephrosis type Kidney stones documented in this encounter Results * CT Abdomen Pelvis WO Contrast (10/14/2021 8:50 AM PROJECT RESERVOIR ENGINEER) Anatomical Region Laterality Modality Body N/A Computed Tomogra phy 10/14/2021 11:5 4 AM PROJECT RESERVOIR ENGINEER Impressions 10/14/2021 11:54 AM PROJECT RESERVOIR ENGINEER 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 RIGHT DOUBLE-J STENT WELL-POSITIONED. 2 SMALL CALCULI LOWER POLE RIGHT KIDNEY. MINUTE CALCULUS UPPER POLE LEFT KIDNEY. Electronically signed by: Nelson oBnilla M.D. Narrative 10/14/2021 11:54 AM PROJECT RESERVOIR ENGINEER EXAMINATION: CT ABDOMEN PELVIS WO CONTRAST dated 10/14/2021 7:30 AM HISTORY: 31-year-old woman history of kidney stones with hydronephrosis and flank pain retained stent right side TECHNIQUE: Spiral noncontrast CT with multiplanar reconstructions FINDINGS: Correlation is made with an outside ultrasound of the kidneys dated 09/24/2021 demonstrating hydronephrosis or renal calculi. Images do not the report available. Locker Plant Attendant radiograph demonstrates a double-J stent on the [...] calculi. Images do not the report available. Locker Plant Attendant radiograph demonstrates a double-J stent on the [...] * Basic metabolic panel (10/03/2021 9:55 AM PROJECT RESERVOIR ENGINEER) Sodium 139 135 - 145 mmol/L CERNER [...] 10.3 mg/dL CERNER Blood 10/03/2021 9:55 AM PROJECT RESERVOIR ENGINEER 10/03/2021 11:42 AM PROJECT RESERVOIR ENGINEER Tye Woods MD LAB BLOOD ORDERABLES Fi nal Result ZAKI [id number] [address] Department [place] [address] * (ABNORMAL) CBC with auto differential (10/03/2021 9:55 AM PROJECT RESERVOIR ENGINEER) WBC 5.4 3.8 - 9.9 K/cumm CERNER CH Hgb 11.1(L) 11.9 - 15.5 g/dL CERNER CH Hct 35.5(L) 35.6 - 45.5 % [facility] Plt 413(H) 150 - 400 K/cumm [facility] MPV 9.8 9.1 - 12.3 fL [facility] RBC 4.51 3.90 - 5.20 M/cumm [facility] MCV 78.7(L) 81.3 - 96.4 fL [facility] MCH 24.6(L) 27.1 - 33.3 pg [facility] MCHC 31.3(L) 32.3 - 35.7 g/dL [facility] RDW CV 18.4(H) 11.1 - 14.9 % [facility] RDW SD 52.7(H) 35.7 - 48.1 fL [facility] NRBC abs 0.00 0.00 - 0.01 K/cumm [facility] Blood 10/03/2021 9:55 AM PROJECT RESERVOIR ENGINEER 10/03/2021 11:42 AM PROJECT RESERVOIR ENGINEER Tye Woods MD LAB BLOOD ORDERABLES Fi nal Result [facility] [address] [address] Department of Laboratories [place] [phone] * (ABNORMAL) POCT urinalysis dipstick (10/03/2021 9:15 AM PROJECT RESERVOIR ENGINEER) Glucose, ur, POC Negative Negative mg/dL Ketones, ur, POC Negative Negative Blood, ur, POC 3+(A) Negative pH, ur, POC 7.0 5.0 - 8.0 Protein, ur, POC 3+(A) Negative Nitrite, ur, POC Negative Negative Leukocytes, ur, POC 2+(A) Negative Lot Number x Urine 10/03/2021 9:15 AM PROJECT RESERVOIR ENGINEER us Tye Woods MD POINT OF CARE TEST ORDE RABFANNY Final Result * Urine culture Urine, clean voided (10/03/2021 9:14 AM PROJECT RESERVOIR ENGINEER) Pathologist [facility] [place] Report Final Report: Growth indicative of contamination with periurethral belle. Please submit a new specimen with special attention given to the collection process and to prompt transport to the laboratory. ZAKI CHAIREZ Comment:Testing performed by : [facility], [address] [place]., [address] Organism GROWTH INDICATES CONTAM WITH PERIURETHRAL BELLE. ZAKI CHAIREZ Urine, clean voided 10/03/2021 9:14 AM PROJECT RESERVOIR ENGINEER 10/03/2021 11:13 PM PROJECT RESERVOIR ENGINEER Narrative ZAKI CHAIREZ - 10/05/2021 11:53 AM PROJECT RESERVOIR ENGINEER Testing performed by [facility] Microbiology Laboratory ([phone]) us Tye Woods MD LAB MICROBIOLOGY - GENE RAL ORDERABLES Final Result ZAKI [address] [address] Department [place] [address] documented in this encounter Visit Diagnoses Diagnosis Hydronephrosis, unspecified hydronephrosis type- Primary Kidney stones Calculus of kidney Hydronephrosis, unspecified hydronephrosis type Kidney stones Calculus of kidney Hydronephrosis, unspecified hydronephrosis type Kidney stones Calculus of kidney documented in this encounter Orders Outpatient Referral Count Last Ordered Date st Ordered Date AMB REFERRAL TO UROLOGY 1 10/03/2021 documented in this encounter Care Teams Brick Baker Relationship Specialty Start Date End Date Citlaly Ramos DO [address] [place] [id number] PCP - General Family Medicine 10/03/21 documented as of this encounter
--- OUTSIDE RECORDS SUMMARY | 2024-09-25 20:14 | XMS_ITS | Encounter Summary ---
Author Organization [facility] Facility Care Team Providers Care Taping Foreman Name Role Phone Unavailable Primary Care Provider Unavailabl e Encounter Details Date Type Department Care Team (Late st Contact Info) Description 08/27/2014 3:13 PM PAPER COLORER - 08/29/2014 11:21 AM PAPER COLORER Hospital Encounter [facility] Bhargavi Mtz MD [facility] [address] Puerperal endometritis, condition or complication; Asthma; Elevated blood-pressure reading without diagnosis of hypertension; History of allergy to other anti-infective agent Social History Tobacco Use Types Packs/Day Years Used Date Smoking Tobacco: Never Assessed Comments Unknown Sex and Gender Information Value Date Recorded Sex Assigned at Not on file Legal Sex Female 1:00 AM PAPER COLORER Gender Identity Not on file Sexual Orientation Not on file documented as of this encounter Last Filed Vital Signs Vital Sign Reading Time Taken Comments Blood Pressure - - Pulse - - Temperature - - Respiratory Rate - - Oxygen Saturation - - Inhaled Oxygen Concentration - - Weight 88.5 kg (195 lb 1.4 oz) 08/27/2014 3:24 P M PAPER COLORER Height 162.6 cm (5' 4 ) 08/27/2014 3:24 PM PAPER COLORER Body Mass Index 33.49 08/27/2014 3:24 PM PAPER COLORER documented in this encounter Discharge Summaries * ProviderJemraine MD - 08/29/2014 12:00 AM CST Patient: Jumana Rivers Reg No: [id number] H #: [id number] Admit Dt.: 08/27/2014 Dischg Dt: 08/29/2014 : 1990 Room No: [id number] Attending: Isaiah Talavera M.D. Dictating: Karissa Conrad [...] appointment. Karissa Conrad M.D. Isaiah Talavera M.D. [facility]/tala #[id number] Editing MT: TD: 08/29/2014 09:06:00 cc: Deshawn Taylor M.D. documented in this encounter Medications at Time of Discharge albuterol HFA (PROVENTIL HFA,VENTOLIN HFA,PROAIR HFA) 90 mcg/actuation inhaler INHALE 1-2 PUFFS EVERY 4-6 HOURS NEEDED AND DIRECTED. for asthma 04/24/2014 [id number] acid ( 19) 29 mg iron- 1 mg tablet,chewable CHEW AND SWALLOW 1 TABLET DAILY. as supplement 07/18/2014 2 documented as of this encounter Plan of Treatment Not on file documented as of this encounter Procedures Procedure Name Priority Date/Time Associated Diagnosis Comments DISCHARGE LABORATORY CUMULATIVE REPORT Routine 08/29/2014 12:00 AM PAPER COLORER PLASMA COMPREHENSIVE METABOLIC PANEL Routine 08/28/2014 9:23 AM PAPER COLORER BLOOD CELL COUNT (CBC) Routine 4 9:23 AM PAPER COLORER URINALYSIS Routine 08/27/2014 2:28 PM PAPER COLORER BLOOD ABO, RH, INDIRECT AB SCREEN Routine 08/27/2014 2:28 PM PAPER COLORER PLASMA COMPREHENSIVE METABOLIC PANEL Routine 08/27/2014 12:20 PM PAPER COLORER BLOOD CELL COUNT (CBC) Routine 4 12:20 PM PAPER COLORER INFLUENZA VIRUS PCR, CDR Routine 08/27/2014 12:00 PM PAPER COLORER ALL MICROBIOLOGY REPORT SECTION Routine 08/27/2014 12:00 AM PAPER COLORER documented in this encounter Results * Discharge Laboratory Cumulative Report (08/29/2014 12:00 AM PAPER COLORER) 08/29/2014 Narrative HISTORICAL RESULTS - 08/29/2014 3:21 PM PAPER COLORER ?[facility] ?Department of Laboratories ? [address] [facility] [place] ? [place] [address] Patient Name: ??JUMANA RIVERS [facility] Rec Number: [id number] Fin Number: ?[id number] Date: ?1990 Sex/Age: ? Female 24 years Admit Date: ?08/27/2014 Discharge Date: 08/29/2014 Doctor: ?Bhargavi Lyons Facility: ?[facility] Location: ?OTHER Chart Printed: 08/29/2014 15:21 ?? [...] ?URINALYSIS ?Macroscopic ?Test: Color ? Clarity ??Specific [place] ??pH ? Reference: [Yellow] ??[Clear] ??[1.003-1.030] ? [...] ?Test: Neut Pct Auto ??Lymph Pct Auto ??Page Pct Auto ? Reference: [38.7-74.5] ?[20.0-54.3] ? [...] 1.2 ?7.5 ??H ?Test: Lymph Abs Auto ??Page Abs Auto ??Eos Abs Auto ? Reference: [...] (1)This test has been performed using the Integrated biometric[employer] Xpert Flu Assay. This is a multiplex, real-time reverse transcriptase PCR assay that detects and differentiates influenza A, 2009 H1N1 influenza A, and influenza B viral RNA. ??This assay has been cleared by the [place] Food and Drug Administration, and its performance characteristics have been verified by the [facility] Microbiology Laboratory.Current interpretive data was last revised [...] (1)This test has been performed using the Integrated bi[employer] Xpert Flu Assay. This is a multiplex, real-time reverse transcriptase PCR assay that detects and differentiates influenza A, 2009 H1N1 influenza A, and influenza B viral RNA. ??This assay has been cleared by the US Food and Drug Administration, and its performance characteristics have been verified by the [facility] Microbiology Laboratory.Current interpretive data was last revised on 2011. ? CANCELLED TESTS Date ?Time ?Test ??Cancel Reason 08/27/2014 ??14:28:00 ??CBC ?? Lab Operations Cancel us Historical Provider LAB BLOOD ORDERABLES Becky paula Result HISTORICAL RESULTS * (ABNORMAL) Plasma comprehensive metabolic panel (08/28/2014 9:23 AM PAPER COLORER) Sodium 142 135 - 145 mmol/L HISTORICAL [...] Units/L HISTORICAL RESULTS Plasma 08/28/2014 9:23 AM PAPER COLORER us Karissa Conrad MD LAB BLOOD ORDERABLES Becky chai Result HISTORICAL RESULTS * (ABNORMAL) Blood cell count (CBC) (08/28/2014 9:23 AM PAPER COLORER) WBC 10.2(H) 3.8 - 9.8 K/cumm HISTORICAL [...] RESULTS Blood specimen (specimen) 08/28/2014 9:23 AM PAPER COLORER us Karissa Conrad MD LAB BLOOD ORDERABLES Becky paula Result HISTORICAL RESULTS * Urinalysis (08/27/2014 2:28 PM PAPER COLORER) Pathologist [facility] [place] Color, ur Yellow Yellow HISTORICAL RESULTS Clarity, [...] Negative HISTORICAL RESULTS Urine 08/27/2014 2:28 PM PAPER COLORER us Bhargavi Lyons MD LAB BLOOD ORDERABLES Fi nal Result Performing Organization Address [facility] Co de Phone Number HISTORICAL RESULTS * Blood ABO, Rh, indirect ab screen (08/27/2014 2:28 PM PAPER COLORER) Pathologist [facility] ABO, Rho(D) O Positive HISTORI SANTHOSH RESULTS Gabby, indirect Negative HISTORICAL RESULTS Blood specimen (specimen) 08/27/2014 2:28 PM PAPER COLORER us Bhargavi Lyons MD LAB BLOOD ORDERABLES Fi nal Result Performing Organization Address [facility] Co de Phone Number HISTORICAL RESULTS * (ABNORMAL) Plasma comprehensive metabolic panel (08/27/2014 12:20 PM PAPER COLORER) Pathologist [facility] Sodium 140 135 - 145 mmol/L HISTORICAL [...] HISTORICAL RESULTS Plasma 08/27/2014 12:2 0 PM PAPER COLORER us Bhargavi Lyons MD LAB BLOOD ORDERABLES Fi nal Result HISTORICAL RESULTS * (ABNORMAL) Blood cell count (CBC) (08/27/2014 12:20 PM PAPER COLORER) WBC 11.1(H) 3.8 - 9.8 K/cumm HISTORICAL [...] RESULTS Blood specimen (specimen) 08/27/2014 12:20 PM PAPER COLORER us Bhargavi Lyons MD LAB BLOOD ORDERABLES Fi nal Result Performing Organization Address [facility] Co de Phone Number HISTORICAL RESULTS * Influenza virus PCR (08/27/2014 12:00 PM PAPER COLORER) Nasopharyngeal (Unknown) 08/27/2014 12:00 PM PAPER COLORER 08/27/2014 12:32 PM PAPER COLORER Impressions HISTORICAL RESULTS - 08/27/2014 2:33 PM PAPER COLORER This test has been performed using the [employer] Xpert Flu Assay. ??This is a multiplex, real-time reverse transcriptase PCR assay that detects and differentiates influenza A, 2009 H1N1 influenza A, and influenza B viral RNA. ??This assay has been cleared by the US Food and Drug Administration, and its performance characteristics have been verified by the [facility] Microbiology Laboratory. Current interpretive data was last revised on 2011. Narrative HISTORICAL RESULTS - 08/27/2014 2:33 PM PAPER COLORER Flu A target RNA not detected Flu B target RNA not detected us Historical Provider LAB MICROBIOLOGY - GENERA L ORDERABLES Final Result Performing Organization Address [facility] Co de Phone Number HISTORICAL RESULTS * All Microbiology Report Section (08/27/2014 12:00 AM PAPER COLORER) 08/27/2014 Narrative HISTORICAL RESULTS - 08/27/2014 4:22 PM PAPER COLORER ? [facility] ?[address] [facility] [place] ?[place], [place] [address] ? Patient Name: ??JUMANA RIVERS ? Med Rec Number: [id number] ? Fin Number: ?[id number] ? Date: ?1990 ? Sex/Age: ? Female 24 years ? Admit Date: ?08/27/2014 ? Discharge Date: ? Doctor: ?Tuuli , Methodius G ? Facility: ?[facility] ? Location: ?[id number] ?* Abnormal ??A Alert ??f Footnote [...] (1)This test has been performed using the [employer] Xpert Flu Assay. ? This is a multiplex, real-time reverse transcriptase PCR assay ? that detects and differentiates influenza A, 2009 H1N1 influenza ? A, and influenza B viral RNA. ??This assay has been cleared by ? the US Food and Drug Administration, and its performance ? characteristics have been verified by the [facility] ? Microbiology Laboratory.Current interpretive data was last [...]
--- OUTSIDE RECORDS SUMMARY | 2024-09-25 20:14 | XMS_ITS | Encounter Summary ---
Author Organization [facility] Healthcare Address [address] [place] [address] Care Team Providers Care Charger Tester Name Role Phone Citlaly Ramos DO Primary Care Provider [phone] Encounter Details Date Type Department Care Team (Late st Contact Info) Description 10/03/2021 10:05 AM REAL ESTATE BRANCH MANAGER Lab [facility] [address] [place] [address] Tye Woods MD [address] [place] [address] Hydronephrosis, unspecified hydronephrosis type; Kidney stones Discharge Disposition: Discharge to home or self care Social History Tobacco Use Types Packs/Day Years Used Date Smoking Tobacco: Every Day Smokeless Tobacco: Never Comments No Sex and Gender Information Value Date Recorded Sex Assigned at Not on file Legal Sex Female 1:00 AM REAL ESTATE BRANCH MANAGER Gender Identity Not on file Sexual Orientation Not on file documented as of this encounter Discharge Disposition Disposition Code Departure Means Destination Discharge to home or self care documented in this encounter Plan of Treatment Not on file documented as of this encounter Procedures Procedure Name Priority Date/Time Associated Diagnosis Comments EGFR Routine 10/03/2021 9:55 AM REAL ESTATE BRANCH MANAGER Hydronephrosis, unspecified hydronephrosis type Kidney stones DIFFERENTIAL AUTO Routine 10/03/2021 9:5 5 AM REAL ESTATE BRANCH MANAGER Hydronephrosis, unspecified hydronephrosis type Kidney stones CBC WITH AUTO DIFFERENTIAL Routine 10/03/2021 9:55 AM REAL ESTATE BRANCH MANAGER Hydronephrosis, unspecified hydronephrosis type Kidney stones BASIC METABOLIC PANEL Routine 10/03/2021 9:55 AM REAL ESTATE BRANCH MANAGER Hydronephrosis, unspecified hydronephrosis type Kidney stones documented in this encounter Results * eGFR (10/03/2021 9:55 AM REAL ESTATE BRANCH MANAGER) eGFR 109 mL/min/1. 73 m2 ZAK[facility] CHAIREZ [...] last reviewed 2021. Blood 10/03/2021 9:55 AM REAL ESTATE BRANCH MANAGER 10/03/2021 11:49 AM REAL ESTATE BRANCH MANAGER us Tye Woods MD LAB BLOOD ORDERABLES Fi nal Result ZAKI CHAIREZ [address] [address] Department [place] [address] * Differential, auto (10/03/2021 9:55 AM REAL ESTATE BRANCH MANAGER) Neutrophil abs 2.6 1.7 - 6.5 K/cumm [facility] Imm gran abs 0.0 0.0 - 0.1 K/cumm [facility] Lymphocyte abs 1.5 0.8 - 3.3 K/cumm [facility] Monocyte abs 0.7 0.2 - 0.8 K/cumm [facility] Eosinophil abs 0.4 0.0 - 0.5 K/cumm [facility] Basophil abs 0.1 0.0 - 0.1 K/cumm [facility] Neutrophil pct 48.5 % [facility] Comment: Interpretive Data Percent cell count reference ranges are not reported, since discordance with absolute values may lead to misinterpretation of CBC data. Current Interpretive Data was last revised on 2017. Imm gran pct 0.4 % [facility] Comment: Interpretive Data Percent cell count reference ranges are not reported, since discordance with absolute values may lead to misinterpretation of CBC data. Current Interpretive Data was last revised on 2017. Lymphocyte pct 28.4 % [facility] Comment: Interpretive Data Percent cell count reference ranges are not reported, since discordance with absolute values may lead to misinterpretation of CBC data. Current Interpretive Data was last revised on 2017. Monocyte pct 13.4 % [facility] Comment: Interpretive Data Percent cell count reference ranges are not reported, since discordance with absolute values may lead to misinterpretation of CBC data. Current Interpretive Data was last revised on 2017. Eosinophil pct 8.2 % [facility] Comment: Interpretive Data Percent cell count reference ranges are not reported, since discordance with absolute values may lead to misinterpretation of CBC data. Current Interpretive Data was last revised on 2017. Basophil pct 1.1 % [facility] Comment: Interpretive Data Percent cell count reference ranges are not reported, since discordance with absolute values may lead to misinterpretation of CBC data. Current Interpretive Data was last revised on 2017. Blood 10/03/2021 9:55 AM REAL ESTATE BRANCH MANAGER 10/03/2021 11:42 AM REAL ESTATE BRANCH MANAGER us Tye Chuck MD LAB BLOOD ORDERABLES Fi nal Result [facility] [address] [address] Department [place] [address] * Basic metabolic panel (10/03/2021 9:55 AM REAL ESTATE BRANCH MANAGER) Sodium 139 135 - 145 mmol/L [facility] Potassium, pl 4.0 3.3 - 4.9 mmol/L [facility] Chloride 103 97 - 110 mmol/L [facility] CH CO2 26 22 - 32 mmol/L [facility] CH Anion gap 10 2 - 15 mmol/L [facility] BUN 9 8 - 25 mg/dL [facility] Creatinine 0.76 0.60 - 1.10 mg/dL [facility] Glucose 86 70 - 199 mg/dL [facility] Comment: Interpretive Data Fasting glucose >/= 126 [...] 2017. Calcium 9.3 8.5 - 10.3 mg/dL [facility] Blood 10/03/2021 9:55 AM REAL ESTATE BRANCH MANAGER 10/03/2021 11:42 AM REAL ESTATE BRANCH MANAGER us Tye Woods MD LAB BLOOD ORDERABLES Fi nal Result [facility] [address] [address] Department [place] [address] * (ABNORMAL) CBC with auto differential (10/03/2021 9:55 AM REAL ESTATE BRANCH MANAGER) WBC 5.4 3.8 - 9.9 K/cumm [facility] Hgb 11.1(L) 11.9 - 15.5 g/dL [facility] Hct 35.5(L) 35.6 - 45.5 % [facility] Plt 413(H) 150 - 400 K/cumm [facility] MPV 9.8 9.1 - 12.3 fL [facility] RBC 4.51 3.90 - 5.20 M/cumm [facility] MCV 78.7(L) 81.3 - 96.4 fL [facility] MCH 24.6(L) 27.1 - 33.3 pg [facility] MCHC 31.3(L) 32.3 - 35.7 g/dL [facility] CH RDW CV 18.4(H) 11.1 - 14.9 % [facility] RDW SD 52.7(H) 35.7 - 48.1 fL [facility] NRBC abs 0.00 0.00 - 0.01 K/cumm [facility] Blood 10/03/2021 9:55 AM REAL ESTATE BRANCH MANAGER 10/03/2021 11:42 AM REAL ESTATE BRANCH MANAGER Tye Woods MD LAB BLOOD ORDERABLES Fi nal Result [facility] [address] [address] Department [place] [address] documented in this encounter Visit Diagnoses Diagnosis Hydronephrosis, unspecified hydronephrosis type Kidney stones Calculus of kidney documented in this encounter Care Teams Charger Tester Relationship Specialty Start Date End Date Citlaly Ramos DO [address] [place] [address] PCP - General Family Medicine 10/03/21 documented as of this encounter
--- OUTSIDE RECORDS SUMMARY | 2024-09-25 20:14 | XMS_ITS | Encounter Summary ---
Author Organization [facility] Facility Care Team Providers Care Front End Specialist Name Role Phone Unavailable Primary Care Provider Unavailabl e Encounter Details Date Type Department Care Team (Late st Contact Info) Description 03/18/2016 12:39 PM CDT - 03/18/2016 1:22 PM CDT Hospital Encounter [facility] Sam Jeffrey MD [address] [facility] [address] [place] [address] Pelvic and perineal pain Social History Tobacco Use Types Packs/Day Years Used Date Smoking Tobacco: Never Assessed Comments Unknown Sex and Gender Information Value Date Recorded Sex Assigned at Not on file Legal Sex Female 1:00 AM PROOFER Gender Identity Not on file Sexual Orientation Not on file documented as of this encounter Medications at Time of Discharge albuterol HFA (PROVENTIL HFA,VENTOLIN HFA,PROAIR HFA) 90 mcg/actuation inhaler INHALE 1-2 PUFFS EVERY 4-6 HOURS NEEDED AND DIRECTED. for asthma 04/24/2014 medroxyPROGESTER one (medroxyPROGESTE Isidro) 150 mg/mL injection Inject into the muscle as instructed 10/02/2014 2 [id number]-mevo-chady acid ( 19) 29 mg iron- 1 mg tablet,chewable CHEW AND SWALLOW 1 TABLET DAILY. as supplement 07/18/2014 2 documented as of this encounter Plan of Treatment Not on file documented as of this encounter Visit Diagnoses Diagnosis Pelvic and perineal pain documented in this encounter
--- OUTSIDE RECORDS SUMMARY | 2024-09-25 20:14 | XMS_ITS | Encounter Summary ---
Author Organization [facility] Facility Care Team Providers Care Comfort Station Attendant Name Role Phone Unavailable Primary Care Provider Unavailabl e Encounter Details Date Type Department Care Team (Latest Contact Info) Description 12/18/2014 9:31 AM CDT - 12/18/2014 4:00 PM T Hospital Encounter [facility] Gabriela Fairbanks MD [address] [facility] [address] [place] [address] Gynecology Encounter for surveillance of other contraceptive Social History Tobacco Use Types Packs/Day Years Used Date Smoking Tobacco: Never Assessed Comments Unknown Sex and Gender Information Value Date Recorded Sex Assigned at Not on file Legal Sex Female 1:00 AM LAB INSTRUCTOR Gender Identity Not on file Sexual Orientation Not on file documented as of this encounter Medications at Time of Discharge albuterol HFA (PROVENTIL HFA,VENTOLIN HFA,PROAIR HFA) 90 mcg/actuation inhaler INHALE 1-2 PUFFS EVERY 4-6 HOURS NEEDED AND DIRECTED. for asthma 04/24/2014 medroxyPROGESTER one (medroxyPROGESTE Isidro) 150 mg/mL injection Inject into the muscle as instructed 10/02/2014 2 [id number]-ajpr-slmwr acid ( 19) 29 mg iron- 1 mg tablet,chewable CHEW AND SWALLOW 1 TABLET DAILY. as supplement 07/18/2014 2 documented as of this encounter Plan of Treatment Not on file documented as of this encounter Visit Diagnoses Diagnosis Encounter for surveillance of other contraceptive documented in this encounter
--- OUTSIDE RECORDS SUMMARY | 2024-09-25 20:14 | XMS_ITS | Encounter Summary ---
Author Organization [facility] Facility Care Team Providers Care Etl Manager Name Role Phone Unavailable Primary Care Provider Unavailabl e Encounter Details Date Type Department Care Team (Late st Contact Info) Description 08/27/2014 10:18 AM INSTALLER HELPER - 08/27/2014 10:28 AM [facility] Hospital Encounter [facility] Social History Tobacco Use Types Packs/Day Years Used Date Smoking Tobacco: Never Assessed Comments Unknown Sex and Gender Information Value Date Recorded Sex Assigned at Not on file Legal Sex Female 1:00 AM INSTALLER HELPER Gender Identity Not on file Sexual Orientation Not on file documented as of this encounter Medications at Time of Discharge albuterol HFA (PROVENTIL HFA,VENTOLIN HFA,PROAIR HFA) 90 mcg/actuation inhaler INHALE 1-2 PUFFS EVERY 4-6 HOURS NEEDED AND DIRECTED. for asthma 04/24/2014 [id number]-ltra-skcfr acid ( 19) 29 mg iron- 1 mg tablet,chewable CHEW AND SWALLOW 1 TABLET DAILY. as supplement 07/18/2014 2 documented as of this encounter Plan of Treatment Not on file documented as of this encounter Visit Diagnoses Not on filedocumented in this encounter
--- OUTSIDE RECORDS SUMMARY | 2024-09-25 20:14 | XMS_ITS | Encounter Summary ---
Author Organization [facility] Facility Care Team Providers Care Industrial Engineering Intern Name Role Phone Unavailable Primary Care Provider Unavailabl e Encounter Details Date Type Department Care Team (Latest Contact Info) Description 08/20/2014 12:44 PM PROMOTIONS EXECUTIVE PRODUCER - 08/23/2014 6:14 PM PROMOTIONS EXECUTIVE PRODUCER Hospital Encounter [facility] Jennifer Stephens DO [address] [address] Infection of amniotic cavity, delivered; Maternal mental [...] on file Legal Sex Female 1:00 AM PROMOTIONS EXECUTIVE PRODUCER Gender Identity Not on file Sexual Orientation Not on file documented as of this encounter Last Filed Vital Signs Vital Sign Reading Time Taken Comments Blood Pressure 132/69 08/20/2014 12:50 PM PROMOTIONS EXECUTIVE PRODUCER Pulse 85 08/23/2014 8:30 AM PROMOTIONS EXECUTIVE PRODUCER Temperature - - Respiratory Rate - - Oxygen Saturation 100% 08/22/2014 4:43 PM PROMOTIONS EXECUTIVE PRODUCER Inhaled Oxygen Concentration - - Weight 92.5 kg (203 lb 15.9 oz) 014 11:54 AM PROMOTIONS EXECUTIVE PRODUCER Height 162.6 cm (5' 4 ) 08/20/2014 1:55 PM PROMOTIONS EXECUTIVE PRODUCER Body Mass Index 35.02 08/20/2014 1:55 PM PROMOTIONS EXECUTIVE PRODUCER documented in this encounter Medications at Time of Discharge albuterol HFA (PROVENTIL HFA,VENTOLIN HFA,PROAIR HFA) 90 mcg/actuation inhaler INHALE 1-2 PUFFS EVERY 4-6 HOURS NEEDED AND DIRECTED. for asthma 04/24/2014 [id number]-aafx-rdmtn acid ( 19) 29 mg iron- 1 mg tablet,chewable CHEW AND SWALLOW 1 TABLET DAILY. as supplement 07/18/2014 2 documented as of this encounter Plan of Treatment Not on file documented as of this encounter Procedures Procedure Name Priority Date/Time Associated Diagnosis Comments DISCHARGE LABORATORY CUMULATIVE REPORT Routine 08/23/2014 12:00 AM PROMOTIONS EXECUTIVE PRODUCER BLOOD GAS, CORD Routine 08/21/2014 5:32 AM PROMOTIONS EXECUTIVE PRODUCER BLOOD GAS, CORD Routine 08/21/2014 5:32 AM PROMOTIONS EXECUTIVE PRODUCER documented in this encounter Results * Discharge Laboratory Cumulative Report (08/23/2014 12:00 AM PROMOTIONS EXECUTIVE PRODUCER) 08/23/2014 Narrative HISTORICAL RESULTS - 08/23/2014 7:20 PM PROMOTIONS EXECUTIVE PRODUCER ?[facility] ?Department of Laboratories ? [address] [facility] ? [place], [place] [address] Patient Name: ??JUMANA JOLLEY [facility] Rec Number: [id number] Fin Number: ?[id number] Date: ?1990 Sex/Age: ? Female 24 years Admit Date: ?08/20/2014 Discharge Date: 08/23/2014 Doctor: ?Jennifer Stephens Facility: ?[facility] Location: ?[id number] Chart Printed: 08/23/2014 19:20 ?? * Abnormal [...] * Blood gas, cord (08/21/2014 5:32 AM PROMOTIONS EXECUTIVE PRODUCER) Pathologist [facility] pH, cord 7.38 HISTORICAL RESULTS Comment:venous PCO2, cord 38 mm Hg HISTORICA L RESULTS Comment:venous PO2, cord 31 mm Hg HISTORICAL RESULTS Comment:venous CO2, cord, calc 24 mmol/L HISTORICAL RESULTS Comment:venous BE, cord -2.0 mmol/L HISTORICAL RESULTS Comment:venous Lactic acid, cord 1.7 mmol/L HISTORICAL RESULTS Comment:venous Cord blood 08/21/2014 5:32 AM PROMOTIONS EXECUTIVE PRODUCER Historical Provider LAB BLOOD ORDERABLES Becky l Result Performing Organization Address City/[facility] Co de Phone Number HISTORICAL RESULTS * Blood gas, cord (08/21/2014 5:32 AM PROMOTIONS EXECUTIVE PRODUCER) pH, cord 7.34 HISTORICAL RESULTS Comment:Arterial PCO2, cord 48 mm Hg HISTORICA L RESULTS Comment:Arterial PO2, cord 18 mm Hg HISTORICAL RESULTS Comment:Arterial CO2, cord, calc 27 mmol/L HISTORICAL RESULTS Comment:Arterial BE, cord -0.7 mmol/L HISTORICAL RESULTS Comment:Arterial Lactic acid, cord 1.9 mmol/L HISTORICAL RESULTS Comment:Arterial Cord blood 08/21/2014 5:32 AM PROMOTIONS EXECUTIVE PRODUCER us Historical Provider LAB BLOOD ORDERABLES Becky l Result Performing Organization Address [facility] de Phone Number HISTORICAL RESULTS documented [...]
--- OUTSIDE RECORDS SUMMARY | 2024-09-25 20:14 | XMS_ITS | Encounter Summary ---
Author Organization [facility] Facility Care Team Providers Care Product Lead Name Role Phone Unavailable Primary Care Provider Unavailabl e Encounter Details Date Type Department Care Team (Late st Contact Info) Description 08/18/2014 10:06 PM NETWORK SECURITY ENGINEER - 08/21/2014 10:58 AM NETWORK SECURITY ENGINEER Hospital Encounter [facility] Saha, Alina Mi MD [address] [place] [address] Other and unspecified uterine inertia, antepartum Social History Tobacco Use Types Packs/Day Years Used Date Smoking Tobacco: Never Assessed Comments Unknown Sex and Gender Information Value Date Recorded Sex Assigned at Not on file Legal Sex Female 1:00 AM NETWORK SECURITY ENGINEER Gender Identity Not on file Sexual Orientation Not on file documented as of this encounter Last Filed Vital Signs Vital Sign Reading Time Taken Comments Blood Pressure 128/65 08/18/2014 10:08 PM NETWORK SECURITY ENGINEER Pulse 101 08/18/2014 10:08 PM NETWORK SECURITY ENGINEER Temperature - - Respiratory Rate - - Oxygen Saturation - - Inhaled Oxygen Concentration - - Weight - - Height - - Body Mass Index - - documented in this encounter Medications at Time of Discharge albuterol HFA (PROVENTIL HFA,VENTOLIN HFA,PROAIR HFA) 90 mcg/actuation inhaler INHALE 1-2 PUFFS EVERY 4-6 HOURS NEEDED AND DIRECTED. for asthma 04/24/2014 [id number]-pzjz-zesbu acid ( 19) 29 mg iron- 1 mg tablet,chewable CHEW AND SWALLOW 1 TABLET DAILY. as supplement 07/18/2014 2 documented as of this encounter H&P Notes * Provider, MD Jermaine - 08/19/2014 10:10 PM CST Datetime Report Generated by [facility]: 08/19/2014 22:10 Patient Name: JUMANA RIVERS : 1990 Admission Information Arrival Date/Time: 08/19/2014 01:10 (08/19/2014 01:/Mayda Saleh RN) Method of arrival: Wheelchair (08/19/2014 01:Mayda Eugene RN) Admitted From: Emergency Dept (08/19/2014:Mayda Mixon RN) Datetime Report Generated by [facility]: 08/19/2014 22:10 In threatening relationship: No (08/18/2014 [...]
--- OUTSIDE RECORDS SUMMARY | 2024-09-25 20:14 | XMS_ITS | Encounter Summary ---
Author Organization [facility] Facility Care Team Providers Care Boiler House Mechanic Name Role Phone Unavailable Primary Care Provider Unavailabl e Encounter Details Date Type Department Care Team (Latest Contact Info) Description 05/22/2015 2:59 PM CDT - 05/22/2015 4:00 PM CDT Hospital Encounter [facility] Gabriela Fairbanks MD [address] [facility] [address] [place] [id number] Gynecology Encounter for insertion of intrauterine contraceptive device; examination or test, negative result Social History Tobacco Use Types Packs/Day Years Used Date Smoking Tobacco: Never Assessed Comments Unknown Sex and Gender Information Value Date Recorded Sex Assigned at Not on file Legal Sex Female 1: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 for asthma 04/24/2014 medroxyPROGESTER one (medroxyPROGESTE Isidro) 150 mg/mL injection Inject into the muscle as instructed 10/02/2014 2 [id number]-tjup-xbgfr acid ( 19) 29 mg iron- 1 [...]
--- OUTSIDE RECORDS SUMMARY | 2024-09-25 20:14 | XMS_ITS | Encounter Summary ---
Author Organization [facility] Healthcare Address [address] [place] [address] Care Team Providers Care Recycling Sorter Name Role Phone Aicha Bucio NP Primary Care Provider [phone] Encounter Details Date Type Department Care Team (Late st Contact Info) Description 06/25/2017 3:10 PM CDT - 06/25/2017 4:[address] [facility] Emergency Department [address] [place] [phone] Jesus Reese MD [address] [place] [address] Discharge Disposition: Discharge to home or self care Social History Tobacco Use Types Packs/Day Years Used Date Smoking Tobacco: Never Assessed Comments Unknown Sex and Gender Information Value Date Recorded Sex Assigned at Not on file Legal Sex Female 1:00 AM RESERVATIONIST Gender Identity Not on file Sexual Orientation Not on file documented as of this encounter Medications at Time of Discharge albuterol HFA (PROVENTIL HFA,VENTOLIN HFA,PROAIR HFA) 90 mcg/actuation inhaler INHALE 1-2 PUFFS EVERY 4-6 HOURS NEEDED AND DIRECTED. for asthma 04/24/2014 medroxyPROGESTER one (medroxyPROGESTE Isidro) 150 mg/mL injection Inject into the muscle as instructed 10/02/2014 2 qb233-vicn-iqixp acid ( 19) 29 mg iron- 1 [...] filedocumented in this encounter Care Teams Recycling Sorter Relationship Specialty Start Date End Date Aicha Bucio NP PCP - General 06/25/17 10/02/21 documented as of this encounter
--- OUTSIDE RECORDS SUMMARY | 2024-09-25 20:14 | XMS_ITS | Encounter Summary ---
Author Organization [facility] Address [address] [place] [address] Phone Care Team Providers Care Cottrell Operator Name Role Phone Citlaly Ramos DO Primary Care Provider [phone] Encounter Details Date Type Department Care Team (Late st Contact Info) Description 10/09/2021 Telephone [facility] [address] [place], [place] [id number] Blas Ca BS Social History Tobacco Use Types Packs/Day Years Used Date Smoking Tobacco: Every Day Smokeless Tobacco: Never Comments No Sex and Gender Information Value Date Recorded Sex Assigned at Not on file Legal Sex Female 1:00 AM HAIRSPRING FABRICATION SUPERVISOR Gender Identity Not on file Sexual Orientation Not on file documented as of this encounter Miscellaneous Notes * Telephone Encounter - Blas Ca BS - 10/09/2021 12:50 PM HAIRSPRING FABRICATION SUPERVISOR Pt would like to see if she can get some pain medication sent to pharmacy all ED medication is gonept was schedule to see MD tomorrow but bc of weather she is post poned for Thursday. Pt is allergic to Vicodin. Pharmacy of choice is [facility] in [place]. Please follow up with pt. SPRING FABRICATION SUPERVISOR documented in this encounter Plan of Treatment Not on file documented as of this encounter Visit Diagnoses Not on filedocumented in this encounter Care Teams Cottrell Operator Relationship Specialty Start Date End Date Citlaly Ramos DO [address] [place] [id number] PCP - General Family Medicine 10/03/21 documented as of this encounter
--- OUTSIDE RECORDS SUMMARY | 2024-09-25 20:14 | XMS_ITS | Encounter Summary ---
Author Organization [facility] Healthcare Address [address] [place] [address] Care Team Providers Care Motion Picture Scene Builder Name Role Phone Aicha Bucio NP Primary Care Provider Reason for Visit * Reason Comments Eye Irritation Encounter Details Date Type Department Care Team (Late st Contact Info) Description 09/02/2017 11:56 AM COMMUNITY ORGANIZATION AIDE - 09/02/2017 3:02 PM COMMUNITY ORGANIZATION AIDE Emergency [facility]ly [facility] Emergency Department [address] [place] [phone] Discharge Disposition: Left without being seen Social History Tobacco Use Types Packs/Day Years Used Date Smoking Tobacco: Every Day Smokeless Tobacco: Never Comments No Sex and Gender Information Value Date Recorded Sex Assigned at Not on file Legal Sex Female 1:00 AM COMMUNITY ORGANIZATION AIDE Gender Identity Not on file Sexual Orientation Not on file documented as of this encounter Last Filed Vital Signs Vital Sign Reading Time Taken Comments Blood Pressure 121/75 09/02/2017 12:04 PM COMMUNITY ORGANIZATION AIDE Pulse 85 09/02/2017 12:04 PM COMMUNITY ORGANIZATION AIDE Temperature 36.8 ??C (98.2 ??F) 09/02/2017 12:[address] Respiratory Rate 18 09/02/2017 12:04 PM COMMUNITY ORGANIZATION AIDE Oxygen Saturation 99% 09/02/2017 12:04 PM COMMUNITY ORGANIZATION AIDE Inhaled Oxygen Concentration - - Weight 86.2 kg (190 lb) 09/02/2017 12:04 PM COMMUNITY ORGANIZATION AIDE Height 162.6 cm (5' 4 ) 09/02/2017 12:04 PM COMMUNITY ORGANIZATION AIDE Body Mass Index 32.61 09/02/2017 12:04 PM COMMUNITY ORGANIZATION AIDE documented in this encounter Medications at Time of Discharge albuterol HFA (PROVENTIL HFA,VENTOLIN HFA,PROAIR HFA) 90 mcg/actuation inhaler INHALE 1-2 PUFFS EVERY 4-6 HOURS NEEDED AND DIRECTED. for asthma 04/24/2014 medroxyPROGESTER one (medroxyPROGESTE Isidro) 150 mg/mL injection Inject into the muscle as instructed 10/02/2014 2 [id number] acid ( 19) 29 mg iron- 1 [...] eye irritation and drainage x 2 days. UNITY ORGANIZATION AIDE documented in this encounter Plan of Treatment Not on file documented as of this encounter Visit Diagnoses Not on filedocumented in this encounter Care Teams Motion Picture Scene Builder Relationship Specialty Start Date End Date Aicha Bucio NP PCP - General 06/25/17 10/02/21 documented as of this encounter
--- OUTSIDE RECORDS SUMMARY | 2024-09-25 20:14 | XMS_ITS | Encounter Summary ---
Author Organization [facility] Facility Care Team Providers Care Program Assistant Name Role Phone Unavailable Primary Care Provider Unavailabl e Encounter Details Date Type Department Care Team (Late st Contact Info) Description 07/23/2015 - 07/23/2015 11:59 PM MARKETING PROJECT COORDINATOR Hospital Encounter [facility] Montserrat Woodall MD [address] [address] Social History Tobacco Use Types Packs/Day Years Used Date Smoking Tobacco: Never Assessed Comments Unknown Sex and Gender Information Value Date Recorded Sex Assigned at Not on file Legal Sex Female 1:00 AM MARKETING PROJECT COORDINATOR Gender Identity Not on file Sexual Orientation Not on file documented as of this encounter Medications at Time of Discharge albuterol HFA (PROVENTIL HFA,VENTOLIN HFA,PROAIR HFA) 90 mcg/actuation inhaler INHALE 1-2 PUFFS EVERY 4-6 HOURS NEEDED AND DIRECTED. for asthma 04/24/2014 medroxyPROGESTER one (medroxyPROGESTE Isidro) 150 mg/mL injection Inject into the muscle as instructed 10/02/2014 2 [id number] acid ( 19) 29 mg iron- 1 mg tablet,chewable CHEW AND SWALLOW 1 TABLET DAILY. as supplement 07/18/2014 2 documented as of this encounter Plan of Treatment Not on file documented as of this encounter Visit Diagnoses Not on filedocumented in this encounter
--- OUTSIDE RECORDS SUMMARY | 2024-09-25 20:14 | XMS_ITS | Encounter Summary ---
Author Organization [facility] Facility Care Team Providers Care Partnership Manager Name Role Phone Unavailable Primary Care Provider Unavailabl e Encounter Details Date Type Department Care Team (Late st Contact Info) Description 08/12/2016 9:53 AM TURBINE SUBASSEMBLER - 08/12/2016 11:59 PM [facility] Hospital Encounter [facility] Kaya Jaramillo MD [address] [phone] [place], [place] [id number] [place] [address] [facility] [address] [address] [place] [address] Encounter for gynecological examination without abnormal finding; Major depressive disorder, single episode; Nicotine dependence, uncomplicated Social History Tobacco Use Types Packs/Day Years Used Date Smoking Tobacco: Never Assessed Comments Unknown Sex and Gender Information Value Date Recorded Sex Assigned at Not on file Legal Sex Female 1:00 AM TURBINE SUBASSEMBLER Gender Identity Not on file Sexual Orientation Not on file documented as of this encounter Medications at Time of Discharge albuterol HFA (PROVENTIL HFA,VENTOLIN HFA,PROAIR HFA) 90 mcg/actuation inhaler INHALE 1-2 PUFFS EVERY 4-6 HOURS NEEDED AND DIRECTED. for asthma 04/24/2014 medroxyPROGESTER one (medroxyPROGESTE Isidro) 150 mg/mL injection Inject into the muscle as instructed 10/02/2014 2 [id number] acid ( 19) 29 mg iron- 1 [...] AMPLIFICATION TEST, CDR Routine 08/12/2016 12:11 PM TURBINE SUBASSEMBLER documented in this encounter Results * Neisseria gonorrhoeae, Chlamydia trachomatis amplification test (08/12/2016 12:11 PM TURBINE SUBASSEMBLER) Endocervical (Unknown) 08/12/2016 12:11 PM TURBINE SUBASSEMBLER 08/12/2016 4:19 PM TURBINE SUBASSEMBLER Impressions CDR HISTORICAL RESULTS - 08/13/2016 12:39 PM TURBINE SUBASSEMBLER Testing performed by the Gen-Probe TigHorrance APTIMA Combo 2 Assay. This nucleic acid amplification test (NAAT) detects ribosomal RNA (rRNA) from Chlamydia trachomatis and Neisseria gonorrhoeae using target capture,and Daytime Babysitter-Mediated Amplification (TMA). This test is approved by the [place] Food and Drug Administration for endocervical, vaginal, and male urethral swab specimens, in addition to male and female urine specimens. The performance characteristics for these specimen types have been verified by the [facility].The performance characteristics of this assay for pharyngeal and rectal specimens collected from cervical swab collection devices have been validated and verified by the [facility]. Verification studies support a lack [...] CDR HISTORICAL RESULTS - 08/13/2016 12:39 PM TURBINE SUBASSEMBLER Negative for: ??Chlamydia trachomatis rRNA Positive for: ??Neisseria gonorrhoeae rRNA us Historical Provider LAB MICROBIOLOGY - GENERA L ORDERABLES Final Result CDR HISTORICAL RESULTS documented in this encounter Visit Diagnoses Diagnosis Encounter for gynecological examination without abnormal finding Major depressive disorder, single episode Major depressive disorder, single episode, unspecified Nicotine dependence, uncomplicated documented in this encounter
--- OUTSIDE RECORDS SUMMARY | 2024-09-25 20:15 | XMS_ITS | Encounter Summary ---
Author Organization [facility] Facility Care Team Providers Care Rubber Chemist Name Role Phone Unavailable Primary Care Provider Unavailabl e Encounter Details Date Type Department Care Team (Latest Contact Info) Description 08/14/2014 11:44 PM DEBURRING AND TOOLING MACHINE OPERATOR - 08/15/2014 3:42 AM DEBURRING AND TOOLING MACHINE OPERATOR Hospital Encounter [facility] Waleska Gross MD [address] [facility] [phone] [place] [address] Other complication of , antepartum; Other specified [...] on file Legal Sex Female 1:00 AM DEBURRING AND TOOLING MACHINE OPERATOR Gender Identity Not on file Sexual Orientation Not on file documented as of this encounter Last Filed Vital Signs Vital Sign Reading Time Taken Comments Blood Pressure 124/80 08/15/2014 12:01 AM DEBURRING AND TOOLING MACHINE OPERATOR Pulse 100 08/15/2014 12:10 AM DEBURRING AND TOOLING MACHINE OPERATOR Temperature - - Respiratory Rate - - Oxygen Saturation - - Inhaled Oxygen Concentration - - Weight - - Height - - Body Mass Index - - documented in this encounter Medications at Time of Discharge albuterol HFA (PROVENTIL HFA,VENTOLIN HFA,PROAIR HFA) 90 mcg/actuation inhaler INHALE 1-2 PUFFS EVERY 4-6 HOURS NEEDED AND DIRECTED. for asthma 04/24/2014 [id number] acid ( 19) 29 mg iron- 1 mg tablet,chewable CHEW AND SWALLOW 1 TABLET DAILY. as supplement 07/18/2014 2 documented as of this encounter H&P Notes * Provider, MD Jermaine - 08/15/2014 3:42 AM CST Triage Record Datetime Report Generated by CPN: 08/15/2014 22:10 Patient Name: JUMANA RIVERS : 1990 Datetime: 08/14/2014 23:58 Attending Physician: [facility] (08/14/2014 23:58/Ankita Mera MD) Datetime: 08/14/2014 23:53 [...] Denies (08/14/2014 23:Marina Moe RN) Recent Sexual [place]: Denies (08/14/2014 23:Desi/Marina Blanco RN) Vaginal discharge: [...] GLUCOSE, POC Routine 08/15/2014 12 :35 AM DEBURRING AND TOOLING MACHINE OPERATOR DISCHARGE LABORATORY CUMULATIVE REPORT Routine 08/15/2014 12:00 AM DEBURRING AND TOOLING MACHINE OPERATOR documented in this encounter Results * Blood glucose, POC (08/15/2014 12:35 AM DEBURRING AND TOOLING MACHINE OPERATOR) Glucose, POC, bld 91 70 - 199 mg/dl HISTORICAL RESULTS Blood specimen (specimen) 08/15/2014 12:35 AM DEBURRING AND TOOLING MACHINE OPERATOR us Waleska Layne MD LAB BLOOD ORDERABLES F inal Result HISTORICAL RESULTS * Discharge Laboratory Cumulative Report (08/15/2014 12:00 AM DEBURRING AND TOOLING MACHINE OPERATOR) 08/15/2014 Narrative HISTORICAL RESULTS - 08/15/2014 7:17 AM DEBURRING AND TOOLING MACHINE OPERATOR ?[facility] ?Department of Laboratories ? [facility] [place] ? [place], [place] [address] Patient Name: ??RIVERSJUMANA Gonzalez Med Rec Number: [id number] Fin Number: ?[id number] Date: ?1990 Sex/Age: ? Female 24 years Admit Date: ?08/14/2014 Discharge Date: 08/15/2014 Doctor: ?Waleska Layne Facility: ?[facility] Location: ?LD Chart Printed: 08/15/2014 07:17 ?? [...]
--- OUTSIDE RECORDS SUMMARY | 2024-09-25 20:15 | XMS_ITS | Encounter Summary ---
Author Organization [facility] Facility Care Team Providers Care Business Services Clerk Name Role Phone Unavailable Primary Care Provider Unavailabl e Encounter Details Date Type Department Care Team (Late st Contact Info) Description 08/14/2014 11:26 PM THERMOMETER PRODUCTION WORKER - 08/14/2014 11:33 PM THERMOMETER PRODUCTION WORKER Hospital Encounter [facility] Social History Tobacco Use Types Packs/Day Years Used Date Smoking Tobacco: Never Assessed Comments Unknown Sex and Gender Information Value Date Recorded Sex Assigned at Not on file Legal Sex Female 1:00 AM THERMOMETER PRODUCTION WORKER Gender Identity Not on file Sexual Orientation Not on file documented as of this encounter Medications at Time of Discharge albuterol HFA (PROVENTIL HFA,VENTOLIN HFA,PROAIR HFA) 90 mcg/actuation inhaler INHALE 1-2 PUFFS EVERY 4-6 HOURS NEEDED AND DIRECTED. for asthma 04/24/2014 [id number] acid ( 19) 29 mg iron- 1 mg tablet,chewable CHEW AND SWALLOW 1 TABLET DAILY. as supplement 07/18/2014 2 documented as of this encounter Plan of Treatment Not on file documented as of this encounter Visit Diagnoses Not on filedocumented in this encounter
--- OUTSIDE RECORDS SUMMARY | 2024-09-25 20:15 | XMS_ITS | Encounter Summary ---
Author Organization [facility] Facility Care Team Providers Care Radiology Therapist Name Role Phone Unavailable Primary Care Provider Unavailabl e Encounter Details Date Type Department Care Team (Late st Contact Info) Description 07/04/2014 10:06 AM CDT - 07/04/2014 4:00 PM CDT Hospital Encounter [facility] Isaiah Hull MD [address] [place] [phone] [place] [address] Gynecology Encounter for supervision of normal in multigravida Social History Tobacco Use Types Packs/Day Years Used Date Smoking Tobacco: Never Assessed Comments Unknown Sex and Gender Information Value Date Recorded Sex Assigned at Not on file 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
--- OUTSIDE RECORDS SUMMARY | 2024-09-25 20:15 | XMS_ITS | Encounter Summary ---
Author Organization [facility] Facility Care Team Providers Care Dollyman Name Role Phone Unavailable Primary Care Provider Unavailabl e Encounter Details Date Type Department Care Team (Late st Contact Info) Description 08/10/2014 10:02 AM SPRAY UNIT FEEDER - 08/10/2014 4:00 PM [facility] Hospital Encounter [facility] Montserrat Woodall MD [address] [place] [address] [address] [place] [address] Social History Tobacco Use Types Packs/Day Years Used Date Smoking Tobacco: Never Assessed Comments Unknown Sex and Gender Information Value Date Recorded Sex Assigned at Not on file Legal Sex Female 1:00 AM SPRAY UNIT FEEDER Gender Identity Not on file Sexual Orientation Not on file documented as of this encounter Medications at Time of Discharge albuterol HFA (PROVENTIL HFA,VENTOLIN HFA,PROAIR HFA) 90 mcg/actuation inhaler INHALE 1-2 PUFFS EVERY 4-6 HOURS NEEDED AND DIRECTED. for asthma 04/24/2014 [id number] acid ( 19) 29 mg iron- 1 mg tablet,chewable CHEW AND SWALLOW 1 TABLET DAILY. as supplement 07/18/2014 2 documented as of this encounter Plan of Treatment Not on file documented as of this encounter Visit Diagnoses Not on filedocumented in this encounter
--- OUTSIDE RECORDS SUMMARY | 2024-09-25 20:15 | XMS_ITS | Encounter Summary ---
Author Organization [facility] Healthcare Address [address] [place] [address] Care Team Providers Care Identification And Records Commander Name Role Phone Unavailable Primary Care Provider Unavailabl e Encounter Details Date Type Department Care Team (Late st Contact Info) Description 06/17/2014 9:59 AM CDT - 06/17/2014 1:30 PM CDT Hospital Encounter [facility] Kirill Carranza MD [address] [facility] [address] [place] [address] Urinary tract infection; Abdominal pain Social History Tobacco Use Types Packs/Day Years Used Date Smoking Tobacco: Never Assessed Comments Unknown Sex and Gender Information Value Date Recorded Sex Assigned at Not on file 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 Gender Identity Not on file [...] HISTORICAL RESULTS Bacteria, ur 2+(A) Negative HISTORI SANTHOSH RESULTS Mucus, ur 2+(A) Negative HISTORICAL RESULTS Amorphous crystals, ur Negative Negative HISTORICAL RESULTS Urine 06/17/2014 10:3 5 AM CDT Benny TEJEDA LAB BLOOD ORDERA BLES Final Result Performing Organization Address [facility] de Phone Number HISTORICAL RESULTS [...] ORDERA BLES Final Result Performing Organization Address [facility] de Phone Number HISTORICAL RESULTS * Urine Microbiology (06/17/2014 12:00 AM CDT) 06/17/2014 12:0 0 AM CDT Narrative HISTORICAL RESULTS - 06/18/2014 12:35 PM CDT ? [facility] Laboratory Microbiology ? [address] ??[place], [place] ??[address] ? Tele: ?Nehal Serrano M.D. - Ceo Na - Randi Curry - Vending Route Driver ?? Patient: JUMANA RIVERS ? Admission #: ??[id number] ?? : 1990 ?Location:[facility] ?? Gender: [...] consistent with leticia-urethral marco. ?? Performed at [facility] Main [facility], [address] [place] [address], [place], [place], [place] ?? [place], [address] = = = = = = = [...]
--- OUTSIDE RECORDS SUMMARY | 2024-09-25 20:15 | XMS_ITS | Encounter Summary ---
Author Organization [facility] Facility Care Team Providers Care Ropewalk Rope Maker Name Role Phone Unavailable Primary Care Provider Unavailabl e Encounter Details Date Type Department Care Team (Late st Contact Info) Description 07/18/2014 1:40 PM DONATIONS ATTENDANT - 07/18/2014 4:00 PM DONATIONS ATTENDANT Hospital Encounter [facility] Isaiah Hull MD [address] [place] [phone] [place] [address] Gynecology Encounter for supervision of normal in multigravida Social History Tobacco Use Types Packs/Day Years Used Date Smoking Tobacco: Never Assessed Comments Unknown Sex and Gender Information Value Date Recorded Sex Assigned at Not on file Legal Sex Female 1:00 AM DONATIONS ATTENDANT Gender Identity Not on file Sexual Orientation Not on file documented as of this encounter Medications at Time of Discharge albuterol HFA (PROVENTIL HFA,VENTOLIN HFA,PROAIR HFA) 90 mcg/actuation inhaler INHALE 1-2 PUFFS EVERY 4-6 HOURS NEEDED AND DIRECTED. for asthma 04/24/2014 [id number] acid ( 19) 29 mg iron- 1 mg tablet,chewable CHEW AND SWALLOW 1 TABLET DAILY. as supplement 07/18/2014 2 documented as of this encounter Plan of Treatment Not on file documented as of this encounter Visit Diagnoses Diagnosis Encounter for supervision of normal in multigravida documented in this encounter
--- OUTSIDE RECORDS SUMMARY | 2024-09-25 20:15 | XMS_ITS | Encounter Summary ---
Author Organization [facility] Care Team Providers Care Surface Supervisor Name Role Phone Unavailable Primary Care Provider Unavailabl e Encounter Details Date Type Department Care Team (Late st Contact Info) Description 06/20/2014 8:44 AM CDT - 06/20/2014 4:00 PM CDT Hospital Encounter [facility] Isaiah Hull MD [address] [facility] [place] [phone] [place] [address] Gynecology Encounter for supervision of normal in multigravida; Need for prophylactic vaccination and inoculation against influenza Social History Tobacco Use Types Packs/Day Years Used Date Smoking Tobacco: Never Assessed Comments Unknown Sex and Gender Information Value Date Recorded Sex Assigned at Not on file 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
--- OUTSIDE RECORDS SUMMARY | 2024-09-25 20:15 | XMS_ITS | Encounter Summary ---
Author Organization [facility] Care Team Providers Care Identification Clerk Name Role Phone Unavailable Primary Care Provider Unavailabl e Encounter Details Date Type Department Care Team (Late st Contact Info) Description 08/17/2014 2:28 PM DIRECTOR ORGANIZATIONAL - 08/17/2014 4:00 PM DIRECTOR ORGANIZATIONAL Hospital Encounter [facility] Isaiah Hull MD [address] [phone] [place] [address] Gynecology Encounter for supervision of normal in [...] file Legal Sex Female 1:00 AM DIRECTOR ORGANIZATIONAL Gender Identity Not on file Sexual Orientation Not on file documented as of this encounter Medications at Time of Discharge albuterol HFA (PROVENTIL HFA,VENTOLIN HFA,PROAIR HFA) 90 mcg/actuation inhaler INHALE 1-2 PUFFS EVERY 4-6 HOURS NEEDED AND DIRECTED. for asthma 04/24/2014 [id number] acid ( 19) 29 mg iron- 1 mg tablet,chewable CHEW AND SWALLOW 1 TABLET DAILY. as supplement 07/18/2014 2 documented as of this encounter Plan of Treatment Not on file documented as of this encounter Procedures Procedure Name Priority Date/Time Associated Diagnosis Comments URINE DRUG SCREEN Routine 08/17/2014 4:2 5 PM DIRECTOR ORGANIZATIONAL SERUM RAPID PLASMA REAGIN (RPR) Routine 08/17/2014 3:30 PM DIRECTOR ORGANIZATIONAL SERUM HUMAN IMMUNODEFICIENCY VIRUS (HIV) 1/2 AB + P24 AG Routine 08/17/2014 3:30 PM DIRECTOR ORGANIZATIONAL SERUM FERRITIN Routine 08/17/2014 3:30 PM DIRECTOR ORGANIZATIONAL BLOOD RETICULOCYTE COUNT Routine 014 3:30 PM DIRECTOR ORGANIZATIONAL BLOOD CELL COUNT (CBC) Routine 4 3:30 PM DIRECTOR ORGANIZATIONAL BETA STREP CULTURE, CDR Routine 08/17/20 14 2:57 PM DIRECTOR ORGANIZATIONAL N. GONORRHOEAE, CHLAMYDIA TRACHOMATIS AMPLIFICATION TEST, CDR Routine 08/17/2014 2:57 PM DIRECTOR ORGANIZATIONAL ALL MICROBIOLOGY REPORT SECTION Routine 08/17/2014 12:00 AM DIRECTOR ORGANIZATIONAL ALL MICROBIOLOGY REPORT SECTION Routine 08/17/2014 12:00 AM DIRECTOR ORGANIZATIONAL DISCHARGE LABORATORY CUMULATIVE REPORT Routine 08/17/2014 12:00 AM DIRECTOR ORGANIZATIONAL documented in this encounter Results * Urine drug screen (08/17/2014 4:25 PM DIRECTOR ORGANIZATIONAL) Pathologist [facility] Amphetamine, ur None detected HISTORICAL RESULTS Comment: [...] last revised 07. Urine 08/17/2014 4:25 PM DIRECTOR ORGANIZATIONAL us Megan Larkin LAB BLOOD ORDERABLES Final Resu lt HISTORICAL RESULTS * Serum rapid plasma reagin (RPR) (08/17/2014 3:30 PM DIRECTOR ORGANIZATIONAL) RPR Nonreactive HISTORIC AL RESULTS Serum 08/17/2014 3:30 PM DIRECTOR ORGANIZATIONAL us Megan PaulaMarcelo Trae LAB BLOOD ORDERABLES Final Resu lt Performing Organization Address [facility] de Phone Number HISTORICAL RESULTS * Serum Human Immunodeficiency virus (HIV) 1/2 ab + p24 ag (08/17/2014 3:30 PM DIRECTOR ORGANIZATIONAL) HIV 1/2 ab p24 ag Nonreactive Nonreactive HISTORICAL RESULTS Serum 08/17/2014 3:30 PM DIRECTOR ORGANIZATIONAL us Megan PaulaMarcelo Trae LAB BLOOD ORDERABLES Final Resu lt Performing Organization Address [facility] de Phone Number HISTORICAL RESULTS * (ABNORMAL) Serum ferritin (08/17/2014 3:30 PM DIRECTOR ORGANIZATIONAL) Ferritin 9(L) 10 - 291 ng/ml HISTORICAL RESULTS Serum 08/17/2014 3:30 PM DIRECTOR ORGANIZATIONAL us Walshra Rader Trae LAB BLOOD ORDERABLES Final Resu lt Performing Organization Address [facility] de Phone Number HISTORICAL RESULTS * Blood reticulocyte count (08/17/2014 3:30 PM DIRECTOR ORGANIZATIONAL) Retics 1.8 0.4 - 1.9 % HISTORICAL RESULTS Retics, absolute 0.066 0.015 - 0.092 M/cumm HISTORICAL RESULTS Blood specimen (specimen) 08/17/2014 3:30 PM DIRECTOR ORGANIZATIONAL us Walshra Rader Trae LAB BLOOD ORDERABLES Final Resu lt Performing Organization Address [facility] de Phone Number HISTORICAL RESULTS * (ABNORMAL) Blood cell count (CBC) (08/17/2014 3:30 PM DIRECTOR ORGANIZATIONAL) WBC 9.5 3.8 - 9.8 K/cumm HISTORICAL [...] RESULTS Blood specimen (specimen) 08/17/2014 3:30 PM DIRECTOR ORGANIZATIONAL us Megan Dior Larkin LAB BLOOD ORDERABLES Final Resu lt HISTORICAL RESULTS * Beta strep culture (08/17/2014 2:57 PM DIRECTOR ORGANIZATIONAL) Vaginal/Rectal (Vaginal/rectal) 08/17/2014 2:57 PM DIRECTOR ORGANIZATIONAL 08/17/2014 4:49 PM DIRECTOR ORGANIZATIONAL Narrative HISTORICAL RESULTS - 08/18/2014 1:53 PM DIRECTOR ORGANIZATIONAL Streptococcus agalactiae (Group B Streptococci) Resistance to penicillin in Group B Streptococcus has not been reported. ??Group B Streptococci are universally susceptible to beta-lactam antibiotics and vancomycin. Routine susceptibility testing is not performed. ??In penicillin allergic patients, if susceptibility testing is requested, the standard panel includes erythromycin and clindamycin. ??Please contact the laboratory at [phone] if you require this testing. Historical Provider MD LAB MICROBIOLOGY - GENERA L ORDERABLES Final Result Performing Organization Address [facility] de Phone Number HISTORICAL RESULTS * Neisseria gonorrhoeae, Chlamydia trachomatis amplification test (08/17/2014 2:57 PM DIRECTOR ORGANIZATIONAL) Endocervical (Unknown) 08/17/2014 2:57 PM DIRECTOR ORGANIZATIONAL 08/17/2014 4:55 PM DIRECTOR ORGANIZATIONAL Impressions HISTORICAL RESULTS - 08/18/2014 12:48 PM DIRECTOR ORGANIZATIONAL Testing performed by the [employer] renal APTIMA Combo 2 Assay. This nucleic acid amplification test (NAAT) detects ribosomal RNA (rRNA) from Chlamydia trachomatis and Neisseria gonorrhoeae using target capture,and Airbrush Artist-Mediated Amplification (TMA). This test is approved by the [place] Food and Drug Administration for endocervical, vaginal, and male urethral swab specimens, in addition to male and female urine specimens. The performance characteristics for these specimen types have been verified by the [facility]biology Laboratory.The performance characteristics of this assay for pharyngeal and rectal specimens collected from cervical swab collection devices have been validated and verified by the [facility] Laboratory. Verification studies [...] Narrative HISTORICAL RESULTS - 08/18/2014 12:48 PM DIRECTOR ORGANIZATIONAL Negative for: ??Chlamydia trachomatis rRNA Negative for: ??Neisseria gonorrhoeae rRNA Historical Provider MD LAB MICROBIOLOGY - GENERA L ORDERABLES Final Result Performing Organization Address [facility] Co de Phone Number HISTORICAL RESULTS * All Microbiology Report Section (08/17/2014 12:00 AM DIRECTOR ORGANIZATIONAL) 08/17/2014 Narrative HISTORICAL RESULTS - 08/18/2014 5:12 PM DIRECTOR ORGANIZATIONAL ? [facility] ?[facility] [place] ?[place] [address] ? Patient Name: ??JUMANA RIVERS L ? Med Rec Number: [id number] ? Fin Number: ?[id number] ? Date: ?1990 ? Sex/Age: ? Female 24 years ? Admit Date: ?08/17/2014 ? Discharge Date: 08/17/2014 ? Doctor: ?Gynecology, Resident ? Facility: ?[facility] ? Location: ?CLOG ?* Abnormal ??A Alert [...] * * ? (1)Testing performed by the [employer] APTIMA Combo 2 Assay. ? This nucleic acid amplification test (NAAT) detects ribosomal ? RNA (rRNA) from Chlamydia trachomatis and Neisseria gonorrhoeae ? using target capture,and Airbrush Artist-Mediated Amplification ? (TMA). This test is approved by the [place] Food and Drug ? Administration for endocervical, vaginal, and male urethral swab ? specimens, in addition to male and female urine specimens. The ? performance characteristics for these specimen types have been ? verified by the [facility]. ? The performance characteristics of this assay for pharyngeal and ? rectal specimens collected from cervical swab collection devices ? have been validated and verified by the [facility] ? Microbiology Laboratory. Verification [...] All Microbiology Report Section (08/17/2014 12:00 AM DIRECTOR ORGANIZATIONAL) 08/17/2014 Narrative HISTORICAL RESULTS - 08/18/2014 5:12 PM DIRECTOR ORGANIZATIONAL ? [facility] ?[facility] [place] ?[place] [address] ? Patient Name: ??JUMANA RIVERS L ? Med Rec Number: [id number] ? Fin Number: ?[id number] ? Date: ?1990 ? Sex/Age: ? Female 24 years ? Admit Date: ?08/17/2014 ? Discharge Date: 08/17/2014 ? Doctor: ?Gynecology, Resident ? Facility: ?[facility] ? Location: ?CLOG ?* Abnormal ??A Alert ??f Footnote ??^ Corrected ??L Low ??H High ?i Interp Data ??@ Ref Lab ? Chart Type:Cumulative ?* * * * MICROBIOLOGY - GENITAL * * * * ?PROCEDURE: Beta Strep Culture ? SOURCE: Vaginal/Rectal ? COLLECTED: 08/17/14 ??1457 ?BODY SITE: ? STARTED: 08/17/14 ??1649 ? FREE TEXT SOURCE: ? FINAL REPORT ? REPORTED: 08/18/14 7298 ? Streptococcus agalactiae (Group B Streptococci) Resistance to ? penicillin in Group B Streptococcus has not been reported. ? Group B Streptococci are universally susceptible to beta-lactam ? antibiotics and vancomycin. Routine susceptibility testing is ? not performed. ??In penicillin allergic patients, if ? susceptibility testing is requested, the standard panel includes ? erythromycin and clindamycin. ??Please contact the laboratory at ? [phone] if you require this testing. ? ORDER COMMENTS ? (1)Specimen received on an ESwab. ? us Historical Provider MD LAB MICROBIOLOGY - GENERA L ORDERABLES Final Result HISTORICAL RESULTS * Discharge Laboratory Cumulative Report (08/17/2014 12:00 AM DIRECTOR ORGANIZATIONAL) 08/17/2014 Narrative HISTORICAL RESULTS - 08/18/2014 3:33 PM DIRECTOR ORGANIZATIONAL ?[facility] ?Department of Laboratories ? [facility] ? [place] [address] Patient Name: ??SAMREEN JUMANA Paula Med Rec Number: [id number] Fin Number: ?[id number] Date: ?1990 Sex/Age: ? Female 24 years Admit Date: ?08/17/2014 Discharge Date: 08/17/2014 Doctor: ?Gynecology, Resident Facility: ?[facility] Location: ?CLOG Chart Printed: 08/18/2014 15:33 ?? [...] and clindamycin. ??Please contact the laboratory at [phone] if you require this testing. ORDER COMMENTS [...] ??* * * (1)Testing performed by the [employer] APTIMA Combo 2 Assay. This nucleic acid amplification test (NAAT) detects ribosomal RNA (rRNA) from Chlamydia trachomatis and Neisseria gonorrhoeae using target capture,and Airbrush Artist-Mediated Amplification (TMA). This test is approved by the [place] Food and Drug Administration for endocervical, vaginal, and male urethral swab specimens, in addition to male and female urine specimens. The performance characteristics for these specimen types have been verified by the [facility]. The performance characteristics of this assay for pharyngeal and rectal specimens collected from cervical swab collection devices have been validated and verified by the [facility]. Verification studies [...] and clindamycin. ??Please contact the laboratory at [phone] if you require this testing. ORDER COMMENTS (1)Specimen received on an ESwab. ? PROCEDURE: N. gonorrhoeae/C. trachomatis Amplification Test ?SOURCE: Endocervical COLLECTED: 08/17/14 ??1457 ? BODY SITE: STARTED: 08/17/14 ??1656 FREE TEXT SOURCE: FINAL REPORT REPORTED: 08/18/14 1248 Negative for: ??Chlamydia trachomatis rRNA Negative for: Neisseria gonorrhoeae rRNA * * * ??Interpretive Results ??* * * (1)Testing performed by the [employer] APTIMA Combo 2 Assay. This nucleic acid amplification test (NAAT) detects ribosomal RNA (rRNA) from Chlamydia trachomatis and Neisseria gonorrhoeae using target capture,and Airbrush Artist-Mediated Amplification (TMA). This test is approved by the [place] Food and Drug Administration for endocervical, vaginal, and male urethral swab specimens, in addition to male and female urine specimens. The performance characteristics for these specimen types have been verified by the [facility]. The performance characteristics of this assay for pharyngeal and rectal specimens collected from cervical swab collection devices have been validated and verified by the [facility]. Verification studies [...]
--- OUTSIDE RECORDS SUMMARY | 2024-09-25 20:16 | XMS_ITS | Encounter Summary ---
Author Organization [facility] Care Team Providers Care Orthopedic Brace Maker Name Role Phone Unavailable Primary Care Provider Unavailabl e Encounter Details Date Type Department Care Team ([facility] st Contact Info) Description 03/13/2014 9:14 AM CDT - 03/13/2014 4:00 PM T Hospital Encounter 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
--- OUTSIDE RECORDS SUMMARY | 2024-09-25 20:16 | XMS_ITS | Encounter Summary ---
Author Organization [facility] Care Team Providers Care Music Teacher Name Role Phone Unavailable Primary Care Provider Unavailabl e Encounter Details Date Type Department Care Team (Late st Contact Info) Description 01/18/2014 10:34 AM CDT - 01/18/2014 4:00 PM CDT Hospital Encounter [facility] Isaiah Hull MD [address] [facility] [place] [phone] [place] [address] Gynecology Social History Tobacco Use Types Packs/Day Years Used Date Smoking Tobacco: Never Assessed Comments Unknown Sex and Gender Information Value Date Recorded Sex Assigned at Not on file Legal Sex Female 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
--- OUTSIDE RECORDS SUMMARY | 2024-09-25 20:16 | XMS_ITS | Encounter Summary ---
Author Organization [facility] Care Team Providers Care Therapeutic Sales Specialist Name Role Phone Unavailable Primary Care Provider Unavailabl e Encounter Details Date Type Department Care Team (Late st Contact Info) Description 09/03/2013 11:58 PM LOST AND FOUND CLERK - 09/04/2013 5:[address] [facility] Hospital Encounter [facility] Social History Tobacco Use Types Packs/Day Years Used Date Smoking Tobacco: Never Assessed Comments Unknown Sex and Gender Information Value Date Recorded Sex Assigned at Not on file Legal Sex Female 1:00 AM LOST AND FOUND CLERK Gender Identity Not on file Sexual Orientation Not on file documented as of this encounter Plan of Treatment Not on file documented as of this encounter Visit Diagnoses Not on filedocumented in this encounter
--- OUTSIDE RECORDS SUMMARY | 2024-09-25 20:16 | XMS_ITS | Encounter Summary ---
Author Organization [facility] Care Team Providers Care Office Machine Servicer Apprentice Name Role Phone Unavailable Primary Care Provider Unavailabl e Encounter Details Date Type Department Care Team (Late st Contact Info) Description 02/05/2013 6:13 PM CDT - 02/05/2013 7:28 PM CDT Hospital Encounter [facility] Hien Werner, WHIZZER HAND [address] [place] [address] Contact dermatitis and other eczema; Asthma Social History Tobacco Use Types Packs/Day Years Used Date Smoking Tobacco: Never Assessed Comments Unknown Sex and Gender Information Value Date Recorded Sex Assigned at Not on file Legal Sex Female 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
--- OUTSIDE RECORDS SUMMARY | 2024-09-25 20:16 | XMS_ITS | Encounter Summary ---
Author Organization [facility] Facility Care Team Providers Care Ice Cream Man Name Role Phone Unavailable Primary Care Provider Unavailabl e Encounter Details Date Type Department Care Team (Latest Contact Info) Description 01/23/2013 4:46 PM CDT - 01/23/2013 10:20 PM CDT Hospital Encounter [facility] Josh Boogie MD [address] [facility] [address] [place] [address] Acute infection of female upper reproductive tract; Asthma Social History Tobacco Use Types Packs/Day Years Used Date Smoking Tobacco: Never Assessed Comments Unknown Sex and Gender Information Value Date Recorded Sex Assigned at Not on file 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 ??This nucleic acid amplification test (NAAT) detects ribosomal RNA (rRNA) from Chlamydia trachomatis and Neisseria gonorrhoeae using target capture, and Door Slinger-Mediated Amplification (TMA). Current interpretive data was last [...] BLOOD ORDERABLES Final Result Performing Organization Address [facility] de Phone Number HISTORICAL RESULTS * (ABNORMAL) Urinalysis (01/23/2013 6:23 PM CDT) [facility] U Blood Negative Negative HISTORICAL RESULTS Color, [...] BLOOD ORDERABLES Final Result Performing Organization Address [facility] de Phone Number HISTORICAL RESULTS * Urine microscopy (01/23/2013 6:23 PM CDT) [facility] RBC, ur 2 0 - 3 /hpf [...] BLOOD ORDERABLES Final Result Performing Organization Address [facility] de Phone Number HISTORICAL RESULTS * All Microbiology Report Section (01/23/2013 12:00 AM CDT) 01/23/2013 Narrative HISTORICAL RESULTS - 01/24/2013 4:15 PM CDT ? [facility] ?[facility] [place] ?[place] [address] ? Patient Name: ??RIVERS, DATREION L ? Med Rec Number: [id number] ? Fin Number: ?[id number] ? Date: ?1990 ? Sex/Age: ? Female 22 years ? Admit Date: ?01/23/2013 ? Discharge Date: 01/23/2013 ? Doctor: ?Moise , Josh C ? Facility: ?[facility] ? Location: ?EM3-9 ?* Abnormal ??A Alert [...] Neisseria gonorrhoeae ? using target capture, and Door Slinger-Mediated Amplification ? (TMA).Current interpretive data was last revised on 2011. ? us Historical Provider LAB MICROBIOLOGY - GENERA L ORDERABLES Final Result HISTORICAL RESULTS documented in this encounter Visit Diagnoses Diagnosis Acute infection of female upper reproductive tract Asthma Unspecified asthma documented in this encounter
--- OUTSIDE RECORDS SUMMARY | 2024-09-25 20:16 | XMS_ITS | Encounter Summary ---
Author Organization [facility] Facility Care Team Providers Care Pari Mutuel Ticket Seller Name Role Phone Unavailable Primary Care Provider Unavailabl e Encounter Details Date Type Department Care Team (Late st Contact Info) Description 12/22/2012 12:29 PM CDT - 12/22/2012 4:00 PM T Hospital Encounter 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
--- OUTSIDE RECORDS SUMMARY | 2024-09-25 20:16 | XMS_ITS | Encounter Summary ---
Author Organization [facility] Facility Care Team Providers Care Bone Char Kiln Tender Name Role Phone Unavailable Primary Care Provider Unavailabl e Encounter Details Date Type Department Care Team (Late st Contact Info) Description 05/22/2014 8:50 AM CDT - 05/22/2014 4:00 PM CDT Hospital Encounter [facility] Isaiah Hull MD [address] [place] [phone] [place] [address] Gynecology Encounter for supervision of normal in multigravida Social History Tobacco Use Types Packs/Day Years Used Date Smoking Tobacco: Never Assessed Comments Unknown Sex and Gender Information Value Date Recorded Sex Assigned at Not on file 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 Gender Identity Not on file Sexual [...] ORDERABLES Final Resu lt Performing Organization Address [facility] de Phone Number HISTORICAL RESULTS * Plasma ADA Gestation Diabetes Glucose, 75g, 1 Hour (05/22/2014 10:45 AM CDT) Glucose, 1 hr, ADA, 75g, pl 116 70 - 179 mg/dl HISTORICAL RESULTS Plasma 05/22/2014 10:4 5 AM CDT Megan Larkin LAB BLOOD ORDERABLES Final Resu lt Performing Organization Address City/[facility] Co de Phone Number HISTORICAL [...] ORDERABLES Final Resu lt Performing Organization Address [facility] de Phone Number HISTORICAL RESULTS * Blood glucose, POC (05/22/2014 9:36 AM CDT) Glucose, POC, bld 78 70 - 199 mg/dl HISTORICAL RESULTS Blood specimen (specimen) 05/22/2014 9:36 AM CDT Megan DevenMarcelo Trae LAB BLOOD ORDERABLES Final Resu lt Performing Organization Address [facility] de Phone Number HISTORICAL RESULTS * [...] ORDERABLES Final Resu lt Performing Organization Address [facility] de Phone Number HISTORICAL RESULTS * (ABNORMAL) Serum ferritin (05/22/2014 4:38 AM CDT) Ferritin 9(L) 10 - 291 ng/ml HISTORICAL RESULTS Serum 05/22/2014 4:38 AM CDT Narrative HISTORICAL RESULTS - 05/22/2014 7:03 AM CDT {75g fasting 2 hr OGTT with blood draws at 0 hr, 1 hr, and 2 hr.} Megan PaulaMarcelo Trae LAB BLOOD ORDERABLES Final Resu lt Performing Organization Address City/State/[facility] Co de Phone Number HISTORICAL [...] ORDERABLES Final Resu lt Performing Organization Address [facility] Co de Phone Number HISTORICAL RESULTS * Discharge Laboratory Cumulative Report (05/22/2014 12:00 AM CDT) 05/22/2014 Narrative HISTORICAL RESULTS - 05/22/2014 3:32 PM CDT ?[facility] ?Department of Laboratories ? [facility] [place] ? [place] [address] Patient Name: ??JUMANA RIVERS Med Rec Number: [id number] Fin Number: ?[id number] Date: ?1990 Sex/Age: ? Female 24 years Admit Date: ?05/22/2014 Discharge Date: 05/22/2014 Doctor: ?Gynecology, Resident Facility: ?[facility] Location: ?CLOG Chart Printed: 05/22/2014 15:32 ?? [...]
--- OUTSIDE RECORDS SUMMARY | 2024-09-25 20:16 | XMS_ITS | Encounter Summary ---
Author Organization [facility] Facility Care Team Providers Care Vegetable Cook Name Role Phone Unavailable Primary Care Provider Unavailabl e Encounter Details Date Type Department Care Team (Late st Contact Info) Description 02/27/2014 8:40 AM CDT - 02/27/2014 4:00 PM T Hospital Encounter [facility] Isaiah Hull MD [address] [facility] [address] [phone] [place] [address] Gynecology Other specified screening Social History Tobacco Use Types Packs/Day Years Used Date Smoking Tobacco: Never Assessed Comments Unknown Sex and Gender Information Value Date Recorded Sex Assigned at Not on file Legal Sex Female 1:00 AM REFERRAL SPECIALIST Gender Identity Not on file Sexual Orientation Not on file documented as of this encounter Plan of Treatment Not on file documented as of this encounter Visit Diagnoses Diagnosis Other specified screening documented in this encounter
--- OUTSIDE RECORDS SUMMARY | 2024-09-25 20:16 | XMS_ITS | Encounter Summary ---
Author Organization [facility] Facility Care Team Providers Care Alumni Secretary Name Role Phone Unavailable Primary Care Provider Unavailabl e Encounter Details Date Type Department Care Team (Latest Contact Info) Description 01/13/2014 8:56 PM CDT - 01/13/2014 10:50 PM CDT Hospital Encounter [facility] Other current maternal conditions classifiable elsewhere, antepartum; Abdominal pain; Dizziness and giddiness Social History Tobacco Use Types Packs/Day Years Used Date Smoking Tobacco: Never Assessed Comments Unknown Sex and Gender Information Value Date Recorded Sex Assigned at Not on file Legal Sex Female 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 Gender Identity Not on file Sexual Orientation [...] ORDERABLES Final Res ult Performing Organization Address [facility]/State/ZIP Co de Phone Number HISTORICAL RESULTS [...] ORDERABLES Final Res ult Performing Organization Address [facility]/ZIP Co de Phone Number HISTORICAL RESULTS * [...] ORDERABLES Final Res ult Performing Organization Address [facility]/ZIP Co de Phone Number HISTORICAL RESULTS * Discharge Laboratory Cumulative Report (01/13/2014 12:00 AM CDT) 01/13/2014 Narrative HISTORICAL RESULTS - 01/14/2014 3:16 PM CDT ?[facility] ?Department of Laboratories ? [address] [facility] [address] ? [place] [address] Patient Name: ??ALYSHA RIVERS Deven Med Rec Number: [id number] Fin Number: ?[id number] Date: ?1990 Sex/Age: ? Female 23 years Admit Date: ?01/13/2014 Discharge Date: 01/13/2014 Doctor: ?Unknown , HMED Doctor Facility: ?[facility] Location: ?EM2-WT Chart Printed: 01/14/2014 15:16 ?? * Abnormal ?? C Critical ?? f Footnote ?? ^ Corrected ?? L Low ?? H High ? i Interp Data ?? @ Reference Lab ?Chart Type:Cumulative ?URINE HORMONES ?Test: hCG Ur Qual ? Reference: ? Units: 01/13/2014 ?? 23:17:00 ?? Positive ??* ?URINALYSIS ?Macroscopic ?Test: Color ? Clarity ?Specific [place] ? Reference: [Yellow] ??[Clear] ?[1.003-1.030] ? Units: [...]
--- OUTSIDE RECORDS SUMMARY | 2024-09-25 20:16 | XMS_ITS | Encounter Summary ---
Author Organization [facility] Healthcare Address [address] [place] [address] Care Team Providers Care Medical Grade Shoemaker Name Role Phone Unavailable Primary Care Provider Unavailabl e Encounter Details Date Type Department Care Team (Late st Contact Info) Description 08/14/2013 8:31 PM HOGSHEAD PACKER - 08/14/2013 10:00 PM HOGSHEAD PACKER Hospital Encounter [facility] Sonja Santamaria MD [address] [place] [address] [place] [address] Pain in joint, forearm Social History Tobacco Use Types Packs/Day Years Used Date Smoking Tobacco: Never Assessed Comments Unknown Sex and Gender Information Value Date Recorded Sex Assigned at Not on file Legal Sex Female 1:00 AM HOGSHEAD PACKER Gender Identity Not on file Sexual Orientation Not on file documented as of this encounter Plan of Treatment Not on file documented as of this encounter Procedures Procedure Name Priority Date/Time Associated Diagnosis Comments XR WRIST 3+ VW Routine 08/14/2013 9:18 PM HOGSHEAD PACKER documented in this encounter Results * XR Wrist 3+ VW (08/14/2013 9:18 PM HOGSHEAD PACKER) Anatomical Region Laterality Modality N/A Radiographic Christin ging 08/14/2013 9:18 PM HOGSHEAD PACKER Narrative 08/15/2013 8:07 AM HOGSHEAD PACKER EXAMINATION: Left wrist, 3 views. DATE: 08/14/2013. [...]
--- OUTSIDE RECORDS SUMMARY | 2024-09-25 20:16 | XMS_ITS | Encounter Summary ---
Author Organization [facility] Facility Care Team Providers Care Cane Feeder Name Role Phone Unavailable Primary Care Provider Unavailabl e Encounter Details Date Type Department Care Team (Late st Contact Info) Description 04/26/2014 - 04/26/2014 11:59 PM CDT Hospital Encounter [facility] CL[facility]CON[facility] Aicha Bucio, ELECTROGALVANIZING MACHINE OPERATOR [address] [place] [address] Encounter for anatomic survey Social History Tobacco Use Types Packs/Day Years Used Date Smoking Tobacco: Never Assessed Comments Unknown Sex and Gender Information Value Date Recorded Sex Assigned at Not on file Legal Sex Female 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
--- OUTSIDE RECORDS SUMMARY | 2024-09-25 20:16 | XMS_ITS | Encounter Summary ---
Author Organization [facility] Facility Care Team Providers Care Sap Specialist Name Role Phone Unavailable Primary Care Provider Unavailabl e Encounter Details Date Type Department Care Team (Latest Contact Info) Description 07/12/2013 1:40 PM MATERIAL DISPOSITION INSPECTOR - 07/12/2013 4:00 PM MATERIAL DISPOSITION INSPECTOR Hospital Encounter [facility] Gabriela Fairbanks MD [address] [facility] [address] [place] [address] Gynecology Encounter for routine gynecological examination Social History Tobacco Use Types Packs/Day Years Used Date Smoking Tobacco: Never Assessed Comments Unknown Sex and Gender Information Value Date Recorded Sex Assigned at Not on file Legal Sex Female 1:00 AM MATERIAL DISPOSITION INSPECTOR Gender Identity Not on file Sexual Orientation Not on file documented as of this encounter Plan of Treatment Not on file documented as of this encounter Procedures Procedure Name Priority Date/Time Associated Diagnosis Comments N. GONORRHOEAE, CHLAMYDIA TRACHOMATIS AMPLIFICATION TEST, CDR Routine 07/12/2013 2:34 PM MATERIAL DISPOSITION INSPECTOR ALL MICROBIOLOGY REPORT SECTION Routine 07/12/2013 12:00 AM MATERIAL DISPOSITION INSPECTOR DISCHARGE LABORATORY CUMULATIVE REPORT Routine 07/12/2013 12:00 AM MATERIAL DISPOSITION INSPECTOR CYTOLOGY 07/12/2013 documented in this encounter Results * Neisseria gonorrhoeae, Chlamydia trachomatis amplification test (07/12/2013 2:34 PM MATERIAL DISPOSITION INSPECTOR) Endocervical (Unknown) 07/12/2013 2:34 PM MATERIAL DISPOSITION INSPECTOR 07/12/2013 5:40 PM MATERIAL DISPOSITION INSPECTOR Impressions HISTORICAL RESULTS - 07/13/2013 2:21 PM MATERIAL DISPOSITION INSPECTOR Testing performed by the Gen-Probe [employer]ris APTIMA Combo 2 Assay. ??This nucleic acid amplification test (NAAT) detects ribosomal RNA (rRNA) from Chlamydia trachomatis and Neisseria gonorrhoeae using target capture, and Salad Bar Clerk-Mediated Amplification (TMA). ??This test is approved by the [place] Food and Drug Administration for endocervical, vaginal, and male urethral swab specimens, in addition to male and female urine specimens. ??The performance characteristics for these specimen types have been verified by the [facility]. ??The performance characteristics of this test have not been evaluated in women or individuals less than 16 years of age. Current interpretive data was last revised on 2013. Narrative HISTORICAL RESULTS - 07/13/2013 2:21 PM MATERIAL DISPOSITION INSPECTOR Negative for: ??Chlamydia trachomatis rRNA Negative for: ??Neisseria gonorrhoeae rRNA Historical Provider LAB MICROBIOLOGY - GENERA L ORDERABLES Final Result HISTORICAL RESULTS * Cytology (07/12/2013) Narrative 07/12/2013 Ordered by an unspecified provider. Historical Provider LAB CYTOLOGY ORDERABLES F inal Result * All Microbiology Report Section (07/12/2013 12:00 AM MATERIAL DISPOSITION INSPECTOR) 07/12/2013 Narrative HISTORICAL RESULTS - 07/13/2013 5:01 PM MATERIAL DISPOSITION INSPECTOR ? [facility] ?[address] [facility] [address] ?[place], [place] [address] ? Patient Name: ??JUMANA JOLLEY ? Med Rec Number: [id number] ? Fin Number: ?[id number] ? Date: ?1990 ? Sex/Age: ? Female 23 years ? Admit Date: ?07/12/2013 ? Discharge Date: 07/12/2013 ? Doctor: ?Gynecology, Resident ? Facility: ?[facility] ? Location: ?CLOG ?* Abnormal [...] * * ? (1)Testing performed by the Snappy shuttle APTIMA Combo 2 Assay. ? This nucleic acid amplification test (NAAT) detects ribosomal ? RNA (rRNA) from Chlamydia trachomatis and Neisseria gonorrhoeae ? using target capture, and Salad Bar Clerk-Mediated Amplification ? (TMA). ??This test is approved by the [place] Food and Drug ? Administration for endocervical, vaginal, and male urethral swab ? specimens, in addition to male and female urine specimens. ??The ? performance characteristics for these specimen types have been ? verified by the [facility]. ? The performance characteristics of this test have not been ? evaluated in women or individuals less than 16 years of ? age.Current interpretive data was last revised on 2013. ? us Historical Provider MD LAB MICROBIOLOGY - GENERA L ORDERABLES Final Result HISTORICAL RESULTS * Discharge Laboratory Cumulative Report (07/12/2013 12:00 AM MATERIAL DISPOSITION INSPECTOR) 07/12/2013 Narrative HISTORICAL RESULTS - 07/13/2013 3:33 PM MATERIAL DISPOSITION INSPECTOR ?[facility] ?Department of Laboratories ? [address] [facility] [address] ? [place] [address] Patient Name: ??JOLLEYJUMANA [facility] Rec Number: [id number] Fin Number: ?[id number] Date: ?1990 Sex/Age: ? Female 23 years Admit Date: ?07/12/2013 Discharge Date: 07/12/2013 Doctor: ?Gynecology, Resident Facility: ?[facility] Location: ?CLOG Chart Printed: 07/13/2013 15:33 ?? [...] ??* * * (1)Testing performed by the Snappy shuttle APTIMA Combo 2 Assay. This nucleic acid amplification test (NAAT) detects ribosomal RNA (rRNA) from Chlamydia trachomatis and Neisseria gonorrhoeae using target capture, and Salad Bar Clerk-Mediated Amplification (TMA). ??This test is approved by the [facility] Food and Drug Administration for endocervical, vaginal, and male urethral swab specimens, in addition to male and female urine specimens. ??The performance characteristics for these specimen types have been verified by the [facility]. The performance characteristics of this [...] and Neisseria gonorrhoeae using target capture, and Salad Bar Clerk-Mediated Amplification (TMA). ??This test is approved by the [facility] Food and Drug Administration for endocervical, vaginal, and male urethral swab specimens, in addition to male and female urine specimens. ??The performance characteristics for these specimen types have been verified by the [facility]. The performance characteristics of this test have not been evaluated in women or individuals less than 16 years of age.Current interpretive data was last revised on 2013. us Historical Provider LAB BLOOD ORDERABLES Becky paula Result HISTORICAL RESULTS documented in this encounter Visit Diagnoses Diagnosis Encounter for routine gynecological examination documented in this encounter
--- OUTSIDE RECORDS SUMMARY | 2024-09-25 20:16 | XMS_ITS | Encounter Summary ---
Author Organization [facility] Facility Care Team Providers Care Consumer Electronic Retail Specialist Name Role Phone Unavailable Primary Care Provider Unavailabl e Encounter Details Date Type Department Care Team (Latest Contact Info) Description 10/06/2013 3:28 PM INSURANCE FOLLOW UP REPRESENTATIVE - 10/06/2013 4:00 PM INSURANCE FOLLOW UP REPRESENTATIVE Hospital Encounter [facility] Gabriela Fairbanks MD [address] [facility] [address] [place] [address] Gynecology Encounter for removal of intrauterine contraceptive device Social History Tobacco Use Types Packs/Day Years Used Date Smoking Tobacco: Never Assessed Comments Unknown Sex and Gender Information Value Date Recorded Sex Assigned at Not on file Legal Sex Female 1:00 AM INSURANCE FOLLOW UP REPRESENTATIVE Gender Identity Not on file Sexual Orientation Not on file documented as of this encounter Plan of Treatment Not on file documented as of this encounter Visit Diagnoses Diagnosis Encounter for removal of intrauterine contraceptive device documented in this encounter
--- OUTSIDE RECORDS SUMMARY | 2024-09-25 20:16 | XMS_ITS | Encounter Summary ---
Author Organization [facility] Facility Care Team Providers Care Gear And Spline Grinder Name Role Phone Unavailable Primary Care Provider Unavailabl e Encounter Details Date Type Department Care Team (Late st Contact Info) Description 04/24/2014 1:18 PM CDT - 04/24/2014 4:00 PM CDT Hospital Encounter [facility] Isaiah Hull MD [address] [phone] [place] [address] Gynecology Encounter for supervision of normal in multigravida; Screening examination for sexually transmitted disease; Special screening examination for other specified chlamydial diseases Social History Tobacco Use Types Packs/Day Years Used Date Smoking Tobacco: Never Assessed Comments Unknown Sex and Gender Information Value Date Recorded Sex Assigned at Not on file Legal Sex Female 1:00 AM FRICTION SAW OPERATOR Gender Identity Not on file Sexual [...] 12:14 PM CDT Testing performed by the Gen-Inkling APTIMA Combo 2 Assay. ??This nucleic acid amplification test (NAAT) detects ribosomal RNA (rRNA) from Chlamydia trachomatis and Neisseria gonorrhoeae using target capture, and Trim Operator-Mediated Amplification (TMA). ??This test is approved by the [place] Food and Drug Administration for endocervical, vaginal, and male urethral swab specimens, in addition to male and female urine specimens. ??The performance characteristics for these specimen types have been verified by the [facility]. ??The performance characteristics [...] HISTORICAL RESULTS - 04/25/2014 3:27 PM CDT ?[facility] ?Department of Laboratories ? [address] [facility] [address] ? [place] [address] Patient Name: ??JUMANA RIVERS [facility] Rec Number: [id number] Fin Number: ?[id number] Date: ?1990 Sex/Age: ? Female 24 years Admit Date: ?04/24/2014 Discharge Date: 04/24/2014 Doctor: ?Gynecology, Resident Facility: ?[facility] Location: ?CLOG Chart Printed: 04/25/2014 15:27 [...] and Neisseria gonorrhoeae using target capture, and Trim Operator-Mediated Amplification (TMA). ??This test is approved by the [place] Food and Drug Administration for endocervical, vaginal, and male urethral swab specimens, in addition to male and female urine specimens. ??The performance characteristics for these specimen types have been verified by the [facility]. The performance characteristics [...] and Neisseria gonorrhoeae using target capture, and Trim Operator-Mediated Amplification (TMA). ??This test is approved by the [place] Food and Drug Administration for endocervical, vaginal, and male urethral swab specimens, in addition to male and female urine specimens. ??The performance characteristics for these specimen types have been verified by the [facility]. The performance characteristics of this test have not been evaluated in women or individuals less than 16 years of age.Current interpretive data was last revised on 2013. us Historical Provider MD LAB BLOOD ORDERABLES Becky l Result HISTORICAL RESULTS * All Microbiology Report Section (04/24/2014 12:00 AM CDT) 04/24/2014 Narrative HISTORICAL RESULTS - 04/25/2014 1:54 PM CDT ? [facility] ?[address] [facility] ?[place] [address] ? Patient Name: ??JUMANA RIVERS L ? Med Rec Number: [id number] ? Fin Number: ?[id number] ? Date: ?1990 ? Sex/Age: ? Female 24 years ? Admit Date: ?04/24/2014 ? Discharge Date: 04/24/2014 ? Doctor: ?Gynecology, Resident ? Facility: ?[facility] ? Location: ?CLOG ?* Abnormal ??A [...] * * ? (1)Testing performed by the [employer] APTIMA Combo 2 Assay. ? This nucleic acid amplification test (NAAT) detects ribosomal ? RNA (rRNA) from Chlamydia trachomatis and Neisseria gonorrhoeae ? using target capture, and Trim Operator-Mediated Amplification ? (TMA). ??This test is approved by the [place] Food and Drug ? Administration for endocervical, vaginal, and male urethral swab ? specimens, in addition to male and female urine specimens. ??The ? performance characteristics for these specimen types have been ? verified by the [facility]. ? The performance [...]
--- OUTSIDE RECORDS SUMMARY | 2024-09-25 20:16 | XMS_ITS | Encounter Summary ---
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 Gender Identity Not on file Sexual Orientation [...] 10:1 4 AM CDT us Aicha Bucio INSURANCE SALES AGENT LAB BLOOD ORDERABLES Final Result HISTORICAL RESULTS * Serum rapid plasma reagin (RPR) (01/16/2014 10:14 AM CDT) RPR Nonreactive Nonreactive HISTOR ICAL RESULTS Serum 01/16/2014 10:1 4 AM CDT us Aicha Bucio INSURANCE SALES AGENT LAB BLOOD ORDERABLES Final Result Performing Organization Address [facility] de Phone Number HISTORICAL RESULTS * Serum Hepatitis B surface ag (01/16/2014 10:14 AM CDT) HBV surface ag Negative NEG HISTO RICAL RESULTS Serum 01/16/2014 10:1 4 AM CDT Aicha Bucio INSURANCE SALES AGENT LAB BLOOD ORDERABLES Final Result Performing Organization Address [facility] de Phone Number HISTORICAL RESULTS * Serum Human Immunodeficiency virus (HIV) 1, 2 ab (01/16/2014 10:14 AM CDT) HIV ab Negative NEG HISTORICAL RESULTS Serum 01/16/2014 10:1 4 AM CDT Aicha Bucio INSURANCE SALES AGENT LAB BLOOD ORDERABLES Final Result Performing Organization Address [facility] de Phone Number HISTORICAL RESULTS [...] 01/16/2014 10:14 AM CDT us Aicha Bucio INSURANCE SALES AGENT LAB BLOOD ORDERABLES Final Result HISTORICAL RESULTS * Blood ABO, Rh, indirect ab screen (01/16/2014 10:11 AM CDT) ABO, Rho(D) O Positive HISTORI SANTHOSH RESULTS Gabby, indirect Negative HISTORICAL RESULTS Blood specimen (specimen) 01/16/2014 10:11 AM CDT us Aicha Bucio INSURANCE SALES AGENT LAB BLOOD ORDERABLES Final Result HISTORICAL RESULTS [...] and Neisseria gonorrhoeae using target capture, and Research Analyst-Mediated Amplification (TMA). ??This test is approved by the [place] Food and Drug Administration for endocervical, vaginal, and male urethral swab specimens, in addition to male and female urine specimens. ??The performance characteristics for these specimen types have been verified by the [facility]biology Laboratory. ??The performance characteristics [...] L ORDERABLES Final Result Performing Organization Address City/[facility] de Phone Number HISTORICAL RESULTS * Urine (aerobic) culture (01/16/2014 9:42 AM CDT) Urine, clean voided (Unknown) 01/16/2014 9:42 AM CDT 01/16/2014 5:39 PM CDT Narrative HISTORICAL RESULTS - 01/18/2014 2:52 PM CDT Growth indicative of contamination with periurethral marco. Please submit a new specimen with special attention given to the collection process and to prompt transport to the laboratory. [facility] Heart Provider MD LAB MICROBIOLOGY - GENERA L ORDERABLES Final Result Performing Organization Address [facility] de Phone Number HISTORICAL RESULTS * Serum Hepatitis C ab (01/16/2014 5:14 AM CDT) HCV ab Negative NEG HISTORICAL RESULTS Serum 01/16/2014 5:14 AM CDT Narrative HISTORICAL RESULTS - 01/16/2014 8:51 AM CDT Interpretive Data If confirmation is required, call Laboratory Customer Service to request sample to be sent to [facility] for Hepatitis C Virus (HCV) RNA Detection and Quantitation by Real-Time Reverse Research Analyst-PCR (RT-PCR). Current interpretive data was last revised on 2011 Aicha Bucio NP LAB BLOOD ORDERABLES Final Result Performing Organization Address City/[facility] Co de Phone Number HISTORICAL [...] was last revised on 2010. Aicha Bucio INSURANCE SALES AGENT LAB BLOOD ORDERABLES Final Result HISTORICAL RESULTS * Cytology (01/16/2014) Narrative 01/16/2014 Ordered by an unspecified provider. us Historical Provider MD LAB CYTOLOGY ORDERABLES F inal Result * All Microbiology Report Section (01/16/2014 12:00 AM CDT) 01/16/2014 Narrative HISTORICAL RESULTS - 01/17/2014 1:51 PM CDT ? [facility] ?[facility] ?[place], [place] [address] ? Patient Name: ??JUMANA RIVERS ? Med Rec Number: [id number] ? Fin Number: ?[id number] ? Date: ?1990 ? Sex/Age: ? Female 23 years ? Admit Date: ?01/16/2014 ? Discharge Date: 01/16/2014 ? Doctor: ?Gynecology, Resident ? Facility: ?[facility] ? Location: ?CLOG ?* Abnormal ??A Alert [...] * * ? (1)Testing performed by the [employer] APTIMA Combo 2 Assay. ? This nucleic acid amplification test (NAAT) detects ribosomal ? RNA (rRNA) from Chlamydia trachomatis and Neisseria gonorrhoeae ? using target capture, and Research Analyst-Mediated Amplification ? (TMA). ??This test is approved by the [place] Food and Drug ? Administration for endocervical, vaginal, and male urethral swab ? specimens, in addition to male and female urine specimens. ??The ? performance characteristics for these specimen types have been ? verified by the [facility] Laboratory. ? The performance [...] RESULTS - 01/18/2014 4:48 PM CDT ? [facility] ?[facility] ?[place] [address] ? Patient Name: ??SAMREEN, DATREION L ? Med Rec Number: [id number] ? Fin Number: ?[id number] ? Date: ?1990 ? Sex/Age: ? Female 23 years ? Admit Date: ?01/16/2014 ? Discharge Date: 01/16/2014 ? Doctor: ?Gynecology, Resident ? Facility: ?[facility] ? Location: ?CLOG ?* Abnormal ??A Alert [...] HISTORICAL RESULTS - 01/18/2014 7:25 PM CDT ?[facility] ?Department of Laboratories ? [address] [facility] ? [place] [address] Patient Name: ??JUMANA RIVERS Med Rec Number: [id number] Fin Number: ?[id number] Date: ?1990 Sex/Age: ? Female 23 years Admit Date: ?01/16/2014 Discharge Date: 01/16/2014 Doctor: ?Gynecology, Resident Facility: ?[facility] Location: ?CLOG Chart Printed: 01/18/2014 19:25 ?? [...] Date ?Time ?Test ?Cancel Reason 01/16/2014 ??10:11:00 ??NC ANGCT ??Lab Operations Cancel 01/16/2014 ??10:11:00 ??C URINE ?? Lab Operations Cancel us Historical Provider LAB BLOOD ORDERABLES Becky paula Result Performing Organization Address City/State/[facility] Co de Phone Number HISTORICAL RESULTS documented [...]
--- OUTSIDE RECORDS SUMMARY | 2024-09-25 20:16 | XMS_ITS | Encounter Summary ---
Author Organization [facility] Facility Care Team Providers Care Fruit Canner Name Role Phone Unavailable Primary Care Provider Unavailabl e Encounter Details Date Type Department Care Team (Late st Contact Info) Description 02/27/2013 10:29 PM CDT - 02/28/2013 3:17 AM CDT Hospital Encounter 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
--- OUTSIDE RECORDS SUMMARY | 2024-09-25 20:16 | XMS_ITS | Encounter Summary ---
Author Organization [facility] Healthcare Address [address] [place] [address] Care Team Providers Care Agate Setter Name Role Phone Unavailable Primary Care Provider Unavailabl e Encounter Details Date Type Department Care Team (Late st Contact Info) Description 05/16/2014 8:11 AM CDT - 05/16/2014 12:40 PM CDT Hospital Encounter [facility] CL[facility]CON[facility] Ja Mazariegos MD [address] [place] [address] Other and unspecified noninfectious gastroenteritis and colitis; History of allergy to other antibiotic agent Social History Tobacco Use Types Packs/Day Years Used Date Smoking Tobacco: Never Assessed Comments Unknown Sex and Gender Information Value Date Recorded Sex Assigned at Not on file 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
--- OUTSIDE RECORDS SUMMARY | 2024-09-25 20:16 | XMS_ITS | Encounter Summary ---
Author Organization [facility] Facility Care Team Providers Care Wildlife Enforcement Major Name Role Phone Unavailable Primary Care Provider Unavailabl e Encounter Details Date Type Department Care Team (Late st Contact Info) Description 02/27/2014 8:42 AM CDT - 02/27/2014 4:00 PM CDT Hospital Encounter [facility] Isaiah Hull MD [address] [phone] [place], [place] [id number] Gynecology Encounter for supervision of normal in multigravida; Other specified screening Social History Tobacco Use Types Packs/Day Years Used Date Smoking Tobacco: Never Assessed Comments Unknown Sex and Gender Information Value Date Recorded Sex Assigned at Not on file 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 ??This test is approved by the [place] Food and Drug Administration for endocervical, vaginal, and male urethral swab specimens, in addition to male and female urine specimens. ??The performance characteristics for these specimen types have been verified by the [facility] Laboratory. ??The performance characteristics of this [...] HISTORICAL RESULTS - 02/28/2014 3:24 PM CDT ?[facility] ?Department of Laboratories ? [address] [facility] [address] ? [place] [address] Patient Name: ??ALYSHA JOLLEY [facility] Rec Number: [id number] Fin Number: ?[id number] Date: ?1990 Sex/Age: ? Female 24 years Admit Date: ?02/27/2014 Discharge Date: 02/27/2014 Doctor: ?Gynecology, Resident Facility: ?[facility] Location: ?CLOG Chart Printed: 02/28/2014 15:24 [...] and Neisseria gonorrhoeae using target capture, and Tractor Operator Laser Leveling-Mediated Amplification (TMA). ??This test is approved by the [place] Food and Drug Administration for endocervical, vaginal, and male urethral swab specimens, in addition to male and female urine specimens. ??The performance characteristics for these specimen types have been verified by the [facility]. The performance characteristics [...] ??* * * (1)Testing performed by the [employer] APTIMA Combo 2 Assay. This nucleic acid amplification test (NAAT) detects ribosomal RNA (rRNA) from Chlamydia trachomatis and Neisseria gonorrhoeae using target capture, and Tractor Operator Laser Leveling-Mediated Amplification (TMA). ??This test is approved by the [place] Food and Drug Administration for endocervical, vaginal, and male urethral swab specimens, in addition to male and female urine specimens. ??The performance characteristics for these specimen types have been verified by the [facility]. The performance characteristics of this test have not been evaluated in women or individuals less than 16 years of age.Current interpretive data was last revised on 2013. us Historical Provider LAB BLOOD ORDERABLES Becky paula Result HISTORICAL RESULTS * All Microbiology Report Section (02/27/2014 12:00 AM CDT) 02/27/2014 Narrative HISTORICAL RESULTS - 02/28/2014 1:52 PM CDT ? [facility] ?[address] [facility] [address] ?[place], [place] [address] ? Patient Name: ??ALYSHA JOLLEY L ? Med Rec Number: [id number] ? Fin Number: ?[id number] ? Date: ?1990 ? Sex/Age: ? Female 24 years ? Admit Date: ?02/27/2014 ? Discharge Date: 02/27/2014 ? Doctor: ?Gynecology, Resident ? Facility: ?[facility] ? Location: ?CLOG ?* Abnormal ??A [...] * * ? (1)Testing performed by the [employer] APTIMA Combo 2 Assay. ? This nucleic acid amplification test (NAAT) detects ribosomal ? RNA (rRNA) from Chlamydia trachomatis and Neisseria gonorrhoeae ? using target capture, and Tractor Operator Laser Leveling-Mediated Amplification ? (TMA). ??This test is approved by the [place] Food and Drug ? Administration for endocervical, vaginal, and male urethral swab ? specimens, in addition to male and female urine specimens. ??The ? performance characteristics for these specimen types have been ? verified by the [facility]. ? The performance [...]
--- OUTSIDE RECORDS SUMMARY | 2024-09-25 20:16 | XMS_ITS | Encounter Summary ---
Author Organization [facility] Facility Care Team Providers Care Production Support Analyst Name Role Phone Unavailable Primary Care Provider Unavailabl e Encounter Details Date Type Department Care Team (Late st Contact Info) Description 03/27/2014 8:29 AM CDT - 03/27/2014 4:00 PM T Hospital Encounter [facility] Isaiah Hull MD [address] [facility] [address] [phone] [place] [address] Gynecology Encounter for supervision of normal in multigravida Social History Tobacco Use Types Packs/Day Years Used Date Smoking Tobacco: Never Assessed Comments Unknown Sex and Gender Information Value Date Recorded Sex Assigned at Not on file 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
--- OUTSIDE RECORDS SUMMARY | 2024-09-25 20:16 | XMS_ITS | Encounter Summary ---
Author Organization [facility] Healthcare Address [address] [place] [address] Care Team Providers Care Ragman Name Role Phone Unavailable Primary Care Provider Unavailabl e Encounter Details Date Type Department Care Team (Late st Contact Info) Description 04/19/2014 9:20 AM CDT - 04/19/2014 12:19 PM CDT Hospital Encounter [facility] CLINCON[facility] Ja Mazariegos MD [address] 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
--- OUTSIDE RECORDS SUMMARY | 2024-09-25 20:17 | XMS_ITS | Encounter Summary ---
Author Organization [facility] Facility Care Team Providers Care Low Pressure Firer Name Role Phone Unavailable Primary Care Provider Unavailabl e Encounter Details Date Type Department Care Team (Late st Contact Info) Description 07/02/2011 7:21 AM CDT - 07/02/2011 2:50 PM CDT Hospital Encounter [facility] Benyn Wright Esophageal reflux; Nausea with vomiting; Diarrhea; Chills without fever; Heartburn; Asthma Social History Tobacco Use Types Packs/Day Years Used Date Smoking Tobacco: Never Assessed Comments Unknown Sex and Gender Information Value Date Recorded Sex Assigned at Not on file 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
--- OUTSIDE RECORDS SUMMARY | 2024-09-25 20:17 | XMS_ITS | Encounter Summary ---
Author Organization [facility] Facility Care Team Providers Care Litharge Supervisor Name Role Phone Unavailable Primary Care Provider Unavailabl e Encounter Details Date Type Department Care Team (Latest Contact Info) Description 04/16/2011 2:39 PM CDT - 04/16/2011 4:00 PM CDT Hospital Encounter [facility] Gabriela Fairbanks MD [address] [facility] [address] [place] [address] Gynecology Encounter for insertion of intrauterine contraceptive device; examination or test, negative result; Screening examination for sexually transmitted disease; Special screening examination for other specified chlamydial diseases Social History Tobacco Use Types Packs/Day Years Used Date Smoking Tobacco: Never Assessed Comments Unknown Sex and Gender Information Value Date Recorded Sex Assigned at Not on file Legal Sex Female 1:00 AM 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
--- OUTSIDE RECORDS SUMMARY | 2024-09-25 20:17 | XMS_ITS | Encounter Summary ---
Author Organization [facility] Facility Care Team Providers Care Research Kennel Supervisor Name Role Phone Unavailable Primary Care Provider Unavailabl e Encounter Details Date Type Department Care Team (Late st Contact Info) Description 04/08/2011 12:08 PM CDT - 04/08/2011 4:00 PM T Hospital Encounter [facility] Gabriela Fairbanks MD [address] [facility] [address] [place] [address] Gynecology Routine follow-up; mental disorders of mother; Other depressive disorder; examination or test, negative result Social History Tobacco Use Types Packs/Day Years Used Date Smoking Tobacco: Never Assessed Comments Unknown Sex and Gender Information Value Date Recorded Sex Assigned at Not on file 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
--- OUTSIDE RECORDS SUMMARY | 2024-09-25 20:17 | XMS_ITS | Encounter Summary ---
Author Organization [facility] Facility Care Team Providers Care Egg Setter Name Role Phone Unavailable Primary Care Provider Unavailabl e Encounter Details Date Type Department Care Team (Late st Contact Info) Description 03/06/2012 10:14 AM CDT - 03/06/2012 2:35 PM T Hospital Encounter [facility] Jai Landeros MD [address] [place] [address] Dizziness and giddiness; Headache Social History Tobacco Use Types Packs/Day Years Used Date Smoking Tobacco: Never Assessed Comments Unknown Sex and Gender Information Value Date Recorded Sex Assigned at Not on file Legal Sex Female 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
--- OUTSIDE RECORDS SUMMARY | 2024-09-25 20:17 | XMS_ITS | Encounter Summary ---
Author Organization [facility] Facility Care Team Providers Care Engraver Hand Hard Metals Name Role Phone Unavailable Primary Care Provider Unavailabl e Encounter Details Date Type Department Care Team (Late st Contact Info) Description 2011 1:47 PM CDT - 2011 4:00 PM CDT Hospital Encounter [facility] Isaiah Hull MD [address] [facility] [address] [phone] [place] [address] Gynecology Encounter for supervision of normal in multigravida Social History Tobacco Use Types Packs/Day Years Used Date Smoking Tobacco: Never Assessed Comments Unknown Sex and Gender Information Value Date Recorded Sex Assigned at Not on file Legal Sex Female 1:00 AM 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
--- OUTSIDE RECORDS SUMMARY | 2024-09-25 20:17 | XMS_ITS | Encounter Summary ---
Author Organization [facility] Facility Care Team Providers Care Oil Inspector Name Role Phone Unavailable Primary Care Provider Unavailabl e Encounter Details Date Type Department Care Team (Late st Contact Info) Description 01/07/2012 7:15 AM CDT - 01/07/2012 8:53 AM CDT Hospital Encounter [facility] Libby Green MD [address] [place] [address] Cervicalgia Social History Tobacco Use Types Packs/Day Years Used Date Smoking Tobacco: Never Assessed Comments Unknown Sex and Gender Information Value Date Recorded Sex Assigned at Not on file Legal Sex Female 1:00 AM 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
--- OUTSIDE RECORDS SUMMARY | 2024-09-25 20:17 | XMS_ITS | Encounter Summary ---
Author Organization [facility] Facility Care Team Providers Care Follow Up Manager Name Role Phone Unavailable Primary Care Provider Unavailabl e Encounter Details Date Type Department Care Team (Late st Contact Info) Description 02/19/2011 5:26 AM CDT - 02/19/2011 5:28 AM CDT Hospital Encounter [facility] CLINCONV Social History Tobacco Use Types Packs/Day Years Used Date Smoking Tobacco: Never Assessed Comments Unknown Sex and Gender Information Value Date Recorded Sex Assigned at Not on file Legal Sex Female 1:00 AM MANUFACTURING ACCOUNTANT Gender Identity Not on file Sexual Orientation Not on file documented as of this encounter Plan of Treatment Not on file documented as of this encounter Visit Diagnoses Not on filedocumented in this encounter
--- OUTSIDE RECORDS SUMMARY | 2024-09-25 20:17 | XMS_ITS | Encounter Summary ---
Author Organization [facility] Facility Care Team Providers Care Software Quality Assurance Specialist Name Role Phone Unavailable Primary Care Provider Unavailabl e Encounter Details Date Type Department Care Team (Latest Contact Info) Description 02/21/2011 7:15 AM CDT - 02/23/2011 11:01 AM CDT Hospital Encounter [facility] Eber Metz MD [address] [place] [address] First-degree perineal laceration, delivered; Asthma; Old myocardial [...] on file Legal Sex Female 1:00 AM JAMMER OPERATOR Gender Identity Not on file Sexual [...]
--- OUTSIDE RECORDS SUMMARY | 2024-09-25 20:17 | XMS_ITS | Encounter Summary ---
Author Organization [facility] Facility Care Team Providers Care Captain Waiter/Waitress Name Role Phone Unavailable Primary Care Provider Unavailabl e Encounter Details Date Type Department Care Team (Late st Contact Info) Description 03/21/2011 11:17 AM CDT - 03/21/2011 3:05 PM T Hospital Encounter [facility] Cervicitis and endocervicitis; Cystitis; Genitourinary infection in , condition; Urinary frequency; Asthma Social History Tobacco Use Types Packs/Day Years Used Date Smoking Tobacco: Never Assessed Comments Unknown Sex and Gender Information Value Date Recorded Sex Assigned at Not on file Legal Sex Female 1:00 AM WORK DISTRIBUTOR Gender Identity Not on file Sexual Orientation Not on file documented as of this encounter Plan of Treatment Not on file documented as of this encounter Visit Diagnoses Diagnosis Cervicitis and endocervicitis Cystitis Unspecified cystitis Genitourinary infection in , condition Personal history of urinary (tract) infection Urinary frequency Asthma Unspecified asthma documented in this encounter
--- OUTSIDE RECORDS SUMMARY | 2024-09-25 20:17 | XMS_ITS | Encounter Summary ---
Author Organization [facility] Facility Care Team Providers Care Tour Leader Name Role Phone Unavailable Primary Care Provider Unavailabl e Encounter Details Date Type Department Care Team (Late st Contact Info) Description 02/19/2011 5:40 AM CDT - 02/19/2011 6:38 AM CDT Hospital Encounter [facility] Eber Metz MD [address] [facility] [address] [place] [address] Other threatened labor, antepartum Social History Tobacco Use Types Packs/Day Years Used Date Smoking Tobacco: Never Assessed Comments Unknown Sex and Gender Information Value Date Recorded Sex Assigned at Not on file Legal Sex Female 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
--- OUTSIDE RECORDS SUMMARY | 2024-09-25 20:17 | XMS_ITS | Encounter Summary ---
Author Organization [facility] Facility Care Team Providers Care Wildfire Prevention Specialist Name Role Phone Unavailable Primary Care Provider Unavailabl e Encounter Details Date Type Department Care Team (Late st Contact Info) Description 09/10/2010 - 09/06/2011 11:59 PM BODY JOINER Hospital Encounter [facility] Social History Tobacco Use Types Packs/Day Years Used Date Smoking Tobacco: Never Assessed Comments Unknown Sex and Gender Information Value Date Recorded Sex Assigned at Not on file Legal Sex Female 1:00 AM BODY JOINER Gender Identity Not on file Sexual Orientation Not on file documented as of this encounter Plan of Treatment Not on file documented as of this encounter Visit Diagnoses Not on filedocumented in this encounter
--- OUTSIDE RECORDS SUMMARY | 2024-09-25 20:17 | XMS_ITS | Encounter Summary ---
Author Organization [facility] Facility Care Team Providers Care Chief Catalyst Operator Name Role Phone Unavailable Primary Care Provider Unavailabl e Encounter Details Date Type Department Care Team (Late st Contact Info) Description 02/21/2011 3:26 AM CDT - 02/21/2011 3:30 AM CDT Hospital Encounter [facility] Social History Tobacco Use Types Packs/Day Years Used Date Smoking Tobacco: Never Assessed Comments Unknown Sex and Gender Information Value Date Recorded Sex Assigned at Not on file Legal Sex Female 1:00 AM NUT ROASTER Gender Identity Not on file Sexual Orientation Not on file documented as of this encounter Plan of Treatment Not on file documented as of this encounter Visit Diagnoses Not on filedocumented in this encounter
--- OUTSIDE RECORDS SUMMARY | 2024-09-25 20:18 | XMS_ITS | Encounter Summary ---
Author Organization [facility] Facility Care Team Providers Care Advisor Advocate Angel Co Founder Name Role Phone Unavailable Primary Care Provider Unavailabl e Encounter Details Date Type Department Care Team (Late st Contact Info) Description 09/10/2010 8:35 AM LIVE IN CAREGIVER - 09/10/2010 4:00 PM LIVE IN CAREGIVER Hospital Encounter [facility] Isaiah Hull MD [address] [phone] [place] [address] Gynecology Encounter for supervision of normal in multigravida Social History Tobacco Use Types Packs/Day Years Used Date Smoking Tobacco: Never Assessed Comments Unknown Sex and Gender Information Value Date Recorded Sex Assigned at Not on file Legal Sex Female 1:00 AM LIVE IN CAREGIVER Gender Identity Not on file Sexual Orientation Not on file documented as of this encounter Plan of Treatment Not on file documented as of this encounter Visit Diagnoses Diagnosis Encounter for supervision of normal in multigravida documented in this encounter
--- OUTSIDE RECORDS SUMMARY | 2024-09-25 20:18 | XMS_ITS | Encounter Summary ---
Author Organization [facility] Facility Care Team Providers Care Keeper Head Name Role Phone Unavailable Primary Care Provider Unavailabl e Encounter Details Date Type Department Care Team (Late st Contact Info) Description 10/07/2010 9:53 AM MAINTENANCE CONSTRUCTION HELPER - 10/07/2010 4:00 PM MAINTENANCE CONSTRUCTION HELPER Hospital Encounter [facility] Isaiah Hull MD [address] [phone] [place] [address] Gynecology Other specified screening Social History Tobacco Use Types Packs/Day Years Used Date Smoking Tobacco: Never Assessed Comments Unknown Sex and Gender Information Value Date Recorded Sex Assigned at Not on file Legal Sex Female 1:00 AM MAINTENANCE CONSTRUCTION HELPER Gender Identity Not on file Sexual Orientation Not on file documented as of this encounter Plan of Treatment Not on file documented as of this encounter Visit Diagnoses Diagnosis Other specified screening documented in this encounter
--- OUTSIDE RECORDS SUMMARY | 2024-09-25 20:18 | XMS_ITS | Encounter Summary ---
Author Organization [facility] Facility Care Team Providers Care Green Material Value Added Assessor Name Role Phone Unavailable Primary Care Provider Unavailabl e Encounter Details Date Type Department Care Team (Late st Contact Info) Description 01/28/2011 1:11 PM CDT - 01/28/2011 4:00 PM T Hospital Encounter [facility] Isaiah Hull MD [address] [phone] [place] [address] Gynecology Encounter for supervision of normal in [...] on file Legal Sex Female 1:00 AM ANALOG DESIGN ENGINEER Gender Identity Not on file [...]
--- OUTSIDE RECORDS SUMMARY | 2024-09-25 20:18 | XMS_ITS | Encounter Summary ---
Author Organization [facility] Facility Care Team Providers Care Cardiology Rn Name Role Phone Unavailable Primary Care Provider Unavailabl e Encounter Details Date Type Department Care Team (Late st Contact Info) Description 01/19/2011 2:54 PM CDT - 01/19/2011 5:06 PM CDT Hospital Encounter [facility] Isaiah Hull MD [address] [phone] [place] [address] Observation and evaluation for other specified suspected conditions; Other current maternal conditions classifiable elsewhere, antepartum; Threatened premature labor, antepartum(644.03); Abdominal pain Social History Tobacco Use Types Packs/Day Years Used Date Smoking Tobacco: Never Assessed Comments Unknown Sex and Gender Information Value Date Recorded Sex Assigned at Not on file Legal Sex Female 1:00 AM CIRCUS TRAINER Gender Identity Not on file Sexual Orientation [...]
--- OUTSIDE RECORDS SUMMARY | 2024-09-25 20:18 | XMS_ITS | Encounter Summary ---
Author Organization [facility] Facility Care Team Providers Care Tube Machine Operator Name Role Phone Unavailable Primary Care Provider Unavailabl e Encounter Details Date Type Department Care Team (Late st Contact Info) Description 12/31/2010 12:44 PM CDT - 12/31/2010 4:00 PM CDT Hospital Encounter [facility] Isaiah Hull MD [address] [facility] [address] [phone] [place] [address] Gynecology Encounter for supervision of normal in multigravida Social History Tobacco Use Types Packs/Day Years Used Date Smoking Tobacco: Never Assessed Comments Unknown Sex and Gender Information Value Date Recorded Sex Assigned at Not on file Legal Sex Female 1:00 AM GENERAL CAR YARD 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
--- OUTSIDE RECORDS SUMMARY | 2024-09-25 20:18 | XMS_ITS | Encounter Summary ---
Author Organization [facility] Facility Care Team Providers Care Project Economist Name Role Phone Unavailable Primary Care Provider Unavailabl e Encounter Details Date Type Department Care Team (Late st Contact Info) Description 12/17/2010 2:04 PM CDT - 12/17/2010 4:00 PM CDT Hospital Encounter [facility] Isaiah Hull MD [address] [facility] [address] [phone] [place] [address] Gynecology Encounter for supervision of normal in multigravida Social History Tobacco Use Types Packs/Day Years Used Date Smoking Tobacco: Never Assessed Comments Unknown Sex and Gender Information Value Date Recorded Sex Assigned at Not on file Legal Sex Female 1:00 AM ELECTRONIC INTELLIGENCE OFFICER Gender Identity Not on file Sexual Orientation Not on file documented as of this encounter Plan of Treatment Not on file documented as of this encounter Visit Diagnoses Diagnosis Encounter for supervision of normal in multigravida documented in this encounter
--- OUTSIDE RECORDS SUMMARY | 2024-09-25 20:18 | XMS_ITS | Encounter Summary ---
Author Organization [facility] Facility Care Team Providers Care Cold Working Supervisor Name Role Phone Unavailable Primary Care Provider Unavailabl e Encounter Details Date Type Department Care Team (Late st Contact Info) Description 02/04/2011 1:46 PM CDT - 02/04/2011 4:00 PM CDT Hospital Encounter [facility] Isaiah Hull MD [address] [facility] [address] [phone] [place] [address] Gynecology Encounter for supervision of normal in multigravida Social History Tobacco Use Types Packs/Day Years Used Date Smoking Tobacco: Never Assessed Comments Unknown Sex and Gender Information Value Date Recorded Sex Assigned at Not on file Legal Sex Female 1:00 AM GARNETT MACHINE OPERATOR Gender Identity Not on file Sexual Orientation Not on file documented as of this encounter Plan of Treatment Not on file documented as of this encounter Visit Diagnoses Diagnosis Encounter for supervision of normal in multigravida documented in this encounter
--- OUTSIDE RECORDS SUMMARY | 2024-09-25 20:18 | XMS_ITS | Encounter Summary ---
Author Organization [facility] Facility Care Team Providers Care Lance Crewmember Name Role Phone Unavailable Primary Care Provider Unavailabl e Encounter Details Date Type Department Care Team (Late st Contact Info) Description 12/03/2010 12:00 PM CDT - 12/03/2010 4:00 PM CDT Hospital Encounter [facility] Isaiah Hull MD [address] [facility] [address] [phone] [place] [address] Gynecology Encounter for supervision of normal in multigravida Social History Tobacco Use Types Packs/Day Years Used Date Smoking Tobacco: Never Assessed Comments Unknown Sex and Gender Information Value Date Recorded Sex Assigned at Not on file Legal Sex Female 1:00 AM SWEATBAND CUTTING MACHINE OPERATOR Gender Identity Not on file Sexual Orientation Not on file documented as of this encounter Plan of Treatment Not on file documented as of this encounter Visit Diagnoses Diagnosis Encounter for supervision of normal in multigravida documented in this encounter
--- OUTSIDE RECORDS SUMMARY | 2024-09-25 20:18 | XMS_ITS | Encounter Summary ---
Author Organization [facility] Facility Care Team Providers Care Recreation Programmer Name Role Phone Unavailable Primary Care Provider Unavailabl e Encounter Details Date Type Department Care Team (Late st Contact Info) Description 10/15/2010 12:27 PM CUT OUT PRESS OPERATOR - 10/15/2010 4:00 PM CUT OUT PRESS OPERATOR Hospital Encounter [facility] Isaiah Hull MD [address] [phone] [place] [address] Gynecology Encounter for supervision of normal in multigravida Social History Tobacco Use Types Packs/Day Years Used Date Smoking Tobacco: Never Assessed Comments Unknown Sex and Gender Information Value Date Recorded Sex Assigned at Not on file Legal Sex Female 1:00 AM CUT OUT PRESS OPERATOR Gender Identity Not on file Sexual Orientation Not on file documented as of this encounter Plan of Treatment Not on file documented as of this encounter Visit Diagnoses Diagnosis Encounter for supervision of normal in multigravida documented in this encounter
--- OUTSIDE RECORDS SUMMARY | 2024-09-25 20:18 | XMS_ITS | Encounter Summary ---
Author Organization [facility] Facility Care Team Providers Care Spring Bender Name Role Phone Unavailable Primary Care Provider Unavailabl e Encounter Details Date Type Department Care Team (Latest Contact Info) Description 12/13/2010 9:31 PM CDT - 12/13/2010 11:17 PM T Hospital Encounter [facility] Mere Katz MD [address] [facility] [address] [place] [address] Other current maternal conditions classifiable elsewhere, antepartum; Abdominal pain; Diarrhea Social History Tobacco Use Types Packs/Day Years Used Date Smoking Tobacco: Never Assessed Comments Unknown Sex and Gender Information Value Date Recorded Sex Assigned at Not on file Legal Sex Female 1:00 AM GASKET SUPERVISOR Gender Identity Not on file Sexual Orientation Not on file documented as of this encounter Plan of Treatment Not on file documented as of this encounter Visit Diagnoses Diagnosis Other current maternal conditions classifiable elsewhere, antepartum Abdominal pain Abdominal pain, unspecified site Diarrhea documented in this encounter
--- OUTSIDE RECORDS SUMMARY | 2024-09-25 20:18 | XMS_ITS | Encounter Summary ---
Author Organization [facility] Facility Care Team Providers Care Investment Banking Associate Name Role Phone Unavailable Primary Care Provider Unavailabl e Encounter Details Date Type Department Care Team (Late st Contact Info) Description 11/12/2010 12:46 PM RAIL OPERATOR - 11/12/2010 4:00 PM RAIL OPERATOR Hospital Encounter [facility] Isaiah Hull MD [address] [phone] [place] [address] Gynecology Encounter for supervision of normal in multigravida Social History Tobacco Use Types Packs/Day Years Used Date Smoking Tobacco: Never Assessed Comments Unknown Sex and Gender Information Value Date Recorded Sex Assigned at Not on file Legal Sex Female 1:00 AM RAIL OPERATOR Gender Identity Not on file Sexual Orientation Not on file documented as of this encounter Plan of Treatment Not on file documented as of this encounter Visit Diagnoses Diagnosis Encounter for supervision of normal in multigravida documented in this encounter
--- OUTSIDE RECORDS SUMMARY | 2024-09-25 20:18 | XMS_ITS | Encounter Summary ---
Author Organization [facility] Facility Care Team Providers Care Muffle Worker Name Role Phone Unavailable Primary Care Provider Unavailabl e Encounter Details Date Type Department Care Team (Late st Contact Info) Description 01/16/2011 8:39 PM CDT - 01/17/2011 3:05 AM T [facility] [address] [place] [address] Decreased movements affecting management of mother, antepartum; Abdominal pain, right lower quadrant; Asthma; Fall from other slipping, tripping, or stumbling; Place of occurrence, home Social History Tobacco Use Types Packs/Day Years Used Date Smoking Tobacco: Never Assessed Comments Unknown Sex and Gender Information Value Date Recorded Sex Assigned at Not on file Legal Sex Female 1:00 AM APRON CLEANER Gender Identity Not on file Sexual [...]
--- OUTSIDE RECORDS SUMMARY | 2024-09-25 20:18 | XMS_ITS | Encounter Summary ---
Author Organization [facility] Facility Care Team Providers Care Supervisor Open Hearth Stockyard Name Role Phone Unavailable Primary Care Provider Unavailabl e Encounter Details Date Type Department Care Team (Late st Contact Info) Description 01/14/2011 12:49 PM CDT - 01/14/2011 4:00 PM CDT Hospital Encounter [facility] Isaiah Hull MD [address] [facility] [address] [phone] [place] [address] Gynecology Encounter for supervision of normal in multigravida Social History Tobacco Use Types Packs/Day Years Used Date Smoking Tobacco: Never Assessed Comments Unknown Sex and Gender Information Value Date Recorded Sex Assigned at Not on file Legal Sex Female 1:00 AM DIRECTOR INFORMATION Gender Identity Not on file Sexual Orientation Not on file documented as of this encounter Plan of Treatment Not on file documented as of this encounter Visit Diagnoses Diagnosis Encounter for supervision of normal in multigravida documented in this encounter
--- OUTSIDE RECORDS SUMMARY | 2024-09-25 20:18 | XMS_ITS | Encounter Summary ---
Author Organization [facility] Facility Care Team Providers Care Business Performance Advisor Name Role Phone Unavailable Primary Care Provider Unavailabl e Encounter Details Date Type Department Care Team (Late st Contact Info) Description 08/29/2010 12:51 PM SECURITY THREAT ANALYST - 08/29/2010 7:40 PM SECURITY THREAT ANALYST Hospital Encounter [facility] Cheryle Mata MD [address] [place] [address] Other current maternal conditions classifiable elsewhere, antepartum; [...] on file Legal Sex Female 1:00 AM SECURITY THREAT ANALYST Gender Identity Not on file Sexual [...]
--- OUTSIDE RECORDS SUMMARY | 2024-09-25 20:18 | XMS_ITS | Encounter Summary ---
Author Organization [facility] Facility Care Team Providers Care Manager Environmental Name Role Phone Unavailable Primary Care Provider Unavailabl e Encounter Details Date Type Department Care Team (Late st Contact Info) Description 08/13/2010 8:40 AM LEAD CASHIER - 08/13/2010 4:00 PM LEAD CASHIER Hospital Encounter [facility] Isaiah Hull MD [address] [phone] [place] [address] Gynecology Encounter for supervision of normal in multigravida Social History Tobacco Use Types Packs/Day Years Used Date Smoking Tobacco: Never Assessed Comments Unknown Sex and Gender Information Value Date Recorded Sex Assigned at Not on file Legal Sex Female 1:00 AM LEAD CASHIER Gender Identity Not on file Sexual Orientation Not on file documented as of this encounter Plan of Treatment Not on file documented as of this encounter Visit Diagnoses Diagnosis Encounter for supervision of normal in multigravida documented in this encounter
--- OUTSIDE RECORDS SUMMARY | 2024-09-25 20:18 | XMS_ITS | Encounter Summary ---
Author Organization [facility] Facility Care Team Providers Care Seam Steamer Name Role Phone Unavailable Primary Care Provider Unavailabl e Encounter Details Date Type Department Care Team (Latest Contact Info) Description 08/21/2010 9:40 AM HR CONSULTANT - 08/21/2010 12:22 PM [facility] [address] [facility] [address] [place] [address] Other current maternal conditions classifiable elsewhere, antepartum; Dizziness and giddiness; Generalized hyperhidrosis; Nausea without vomiting Social History Tobacco Use Types Packs/Day Years Used Date Smoking Tobacco: Never Assessed Comments Unknown Sex and Gender Information Value Date Recorded Sex Assigned at Not on file Legal Sex Female 1:00 AM HR CONSULTANT Gender Identity Not on file Sexual Orientation Not on file documented as of this encounter Plan of Treatment Not on file documented as of this encounter Visit Diagnoses Diagnosis Other current maternal conditions classifiable elsewhere, antepartum Dizziness and giddiness Generalized hyperhidrosis Nausea without vomiting documented in this encounter
--- OUTSIDE RECORDS SUMMARY | 2024-09-25 20:18 | XMS_ITS | Encounter Summary ---
Author Organization [facility] Facility Care Team Providers Care Pitching Coach Name Role Phone Unavailable Primary Care Provider Unavailabl e Encounter Details Date Type Department Care Team (Late st Contact Info) Description 02/11/2011 1:58 PM CDT - 02/11/2011 4:00 PM CDT Hospital Encounter [facility] Isaiah Hull MD [address] [facility] [address] [phone] [place] [address] Gynecology Encounter for supervision of normal in multigravida Social History Tobacco Use Types Packs/Day Years Used Date Smoking Tobacco: Never Assessed Comments Unknown Sex and Gender Information Value Date Recorded Sex Assigned at Not on file Legal Sex Female 1:00 AM DATABASES SOFTWARE CONSULTANT Gender Identity Not on file Sexual Orientation Not on file documented as of this encounter Plan of Treatment Not on file documented as of this encounter Visit Diagnoses Diagnosis Encounter for supervision of normal in multigravida documented in this encounter
--- OUTSIDE RECORDS SUMMARY | 2024-09-25 20:18 | XMS_ITS | Encounter Summary ---
Author Organization [facility] Facility Care Team Providers Care Rehanger Name Role Phone Unavailable Primary Care Provider [...] on file Legal Sex Female 1:00 AM BLUNGER LOADER Gender Identity Not on file Sexual Orientation Not on file documented as of this encounter Plan of Treatment Not on file documented as of this encounter Visit Diagnoses Diagnosis Other current maternal conditions classifiable elsewhere, antepartum Abdominal pain Abdominal pain, unspecified site documented in this encounter
--- OUTSIDE RECORDS SUMMARY | 2024-09-25 20:19 | XMS_ITS | Encounter Summary ---
Author Organization [facility] Facility Care Team Providers Care Development Officer Name Role Phone Unavailable Primary Care Provider Unavailabl e Encounter Details Date Type Department Care Team (Late st Contact Info) Description 07/16/2010 9:52 AM CLIENT SERVICES ASSISTANT - 07/16/2010 4:00 PM CLIENT SERVICES ASSISTANT Hospital Encounter [facility] Isaiah Hull MD [address] [phone] [place] [address] Gynecology Other specified screening; Screening examination for sexually transmitted disease; Special screening examination for other specified chlamydial diseases; Special screening examination for other specified viral diseases; Screening examination for rubella Social History Tobacco Use Types Packs/Day Years Used Date Smoking Tobacco: Never Assessed Comments Unknown Sex and Gender Information Value Date Recorded Sex Assigned at Not on file Legal Sex Female 1:00 AM CLIENT SERVICES ASSISTANT Gender Identity Not on file Sexual [...]
== END 2024-09-18 11:34 | disposition left against medical advice (07) ==
DX: Z53.21 Procedure and treatment not carried out due to patient leaving prior to being seen by health care provider (principal)
CPT/HCPCS: 99199

== ENCOUNTER 2024-12-09 04:53 | Emergency (ER) | payer OTHER, SELFPAY ==
--- NOTE | ~2024-12-09 | CT_ITS ---
Non-contrast CT scan of the Abdomen and Pelvis Clinical indication: Abdominal pain Technique: 2.5 mm axial scans were obtained through the abdomen and pelvis without intravenous or or al contrast. Dose reduction technique was used on this scan by utilizing automated exposure control a nd iterative reconstruction technique. The dose-length product (DLP) was 677.32 mGy-cm. Findings: Images through the lung bases reveal no abnormalities. Horseshoe kidney noted. There are nonobstructing stones in the right renal moiety measuring up to 6 m m. There is a 10 x 7 mm ovoid stone at the left renal pelvis, minimal fullness of left renal pelvis. The liver, spleen, pancreas, gallbladder, and adrenals appear normal. There is no aortic aneurysm. There is no evidence of bowel obstruction. Images through the pelvis were performed. There is no evidence of ascites or lymphadenopathy. Urinary bladder unremarkable. No adnexal mass/pelvic mass seen. Impression: 10 x 7 mm ovoid stone at left renal pelvis with minimal fullness of left renal pelvis. Nonobstructing right renal stones, as above. Horseshoe kidney. Reviewed, dictated and finalized at [facility]. Impression: 10 x 7 mm ovoid stone at left renal pelvis with minimal fullness of left renal pelvis. Nonobstructing right renal stones, as above. Horseshoe kidney.
--- OUTSIDE RECORDS SUMMARY | 2024-12-09 04:55 | XMS_ITS | Referral Summary ---
Author Organization [facility] Address [address] [place] [id number] Care Team Providers Care Final Armature Tester Name Role Phone Citlaly Ramos DO Primary Care Provider [phone] Allergies Active Allergy Reactions Criticality Noted Date [...] on file Legal Sex Female 1:00 AM SURFACE GRINDER TENDER Gender Identity Not on file Sexual Orientation Not on file Last Filed Vital Signs Vital Sign Reading Time Taken Comments Blood Pressure 126/86 10/16/2021 12:40 PM SURFACE GRINDER TENDER Pulse 82 10/16/2021 12:40 PM SURFACE GRINDER TENDER Temperature 36.7 C (98.1 F) 10/21/2021 1:29 PM SURFACE GRINDER TENDER Respiratory Rate 8 10/16/2021 12:40 PM SURFACE GRINDER TENDER Oxygen Saturation 100% 10/16/2021 12:40 PM SURFACE GRINDER TENDER Inhaled Oxygen Concentration - - Weight 90.7 kg (200 lb) 10/16/2021 10:29 AM SURFACE GRINDER TENDER Height 162.6 cm (5' 4 ) 10/16/2021 10:29 AM SURFACE GRINDER TENDER Body Mass Index 34.33 10/16/2021 10:29 AM SURFACE GRINDER TENDER Plan of Treatment Not on file Medical Devices Explanted Type Area Supervisor Evaporator Device Identifier Shelf Expiration Date Model / Serial / Lot Ureteral Stent Explanted:Qty: 1 on 10/16/2021 by Tye Woods MD at [facility] Right: Urethra Other [employer] [id number] Universa 6fr 24cm Radiopaque Positioner Monofilament Tether - [id number] Implanted:Qty: 1 on 10/16/2021 by Tye Woods MD at [facility] Explanted:Qty: 1 on 10/21/2021 by Tye Woods MD Right: Urethra [employer] [id number] 07/22/2024 [id number] / / [id number] Insurance [employer] [facility] [employer] [facility] Care Teams Final Armature Tester Relationship Specialty Start Date End Date Citlaly Ramos DO [address] [place] [id number] PCP - General Family Medicine 10/03/21
--- OUTSIDE RECORDS SUMMARY | 2024-12-09 04:55 | XMS_ITS | Clinical Summary ---
Author Organization [facility] Address [address] [place] [phone] Care Team Providers Care Wire Rope Sales Representative Name Role Phone Citlaly Ramos DO Primary Care Provider [phone] Allergies Active Allergy Reactions Criticality Noted Date [...] on file Legal Sex Female 1:00 AM NATIONAL SECRETARY Gender Identity Not on file Sexual Orientation Not on file Obstetrics History Last Filed Vital Signs Vital Sign Reading Time Taken Comments Blood Pressure 126/86 10/16/2021 12:40 PM NATIONAL SECRETARY Pulse 82 10/16/2021 12:40 PM NATIONAL SECRETARY Temperature 36.7 C (98.1 F) 10/21/2021 1:29 PM NATIONAL SECRETARY Respiratory Rate 8 10/16/2021 12:40 PM NATIONAL SECRETARY Oxygen Saturation 100% 10/16/2021 12:40 PM NATIONAL SECRETARY Inhaled Oxygen Concentration - - Weight 90.7 kg (200 lb) 10/16/2021 10:29 AM NATIONAL SECRETARY Height 162.6 cm (5' 4 ) 10/16/2021 10:29 AM NATIONAL SECRETARY Body Mass Index 34.33 10/16/2021 10:29 AM NATIONAL SECRETARY Plan of Treatment Not on file Medical Devices Explanted Type Area Judicial Reporter Device Identifier Shelf Expiration Date Model / Serial / Lot Ureteral Stent Explanted:Qty: 1 on 10/16/2021 by Tye Woods MD at [facility] Right: Urethra Other [employer] [id number] Universa 6fr 24cm Radiopaque Positioner Monofilament Tether - [id number] Implanted:Qty: 1 on 10/16/2021 by Tye Woods MD at [facility] Explanted:Qty: 1 on 10/21/2021 by Tye Woods MD Right: Urethra [employer] [id number] 07/22/2024 [id number] / / [id number] Insurance [facility] [place] [address] [place] [address] Care Teams Wire Rope Sales Representative Relationship Specialty Start Date End Date Citlaly Ramos DO [address] [place] [id number] PCP - General Family Medicine 10/03/21
--- OUTSIDE RECORDS SUMMARY | 2024-12-09 04:55 | XMS_ITS | Clinical Summary ---
Author Organization [facility] Address [address] [facility] [place] [address] Care Team Providers Care Child Care Associate Teacher Name Role Phone TheresaAnkita modiron GUZMAN Primary Care Provider [phone] Miller Zamora MD Unavailable [phone] Darryl Starr DO Unavailable Source Comments [facility],non-owned Affiliates and Associated Physician Practices is amultiple site organization consisting of ambulatory clinics and hospital sitesin [place], [place], [place] and [place]. This disclosure is being madepursuant to the Care Everywhere program and may not contain all information available regarding this patient. Last updated [facility] Allergies Active Allergy Reactions Criticality Noted Date [...] Comments Blood Pressure 128/84 09/24/2021 2:07 PM SUPERVISOR NEWSPAPER DELIVERIES Pulse 93 09/24/2021 2:07 PM SUPERVISOR NEWSPAPER DELIVERIES Temperature 37.2 C (98.9 F) 09/24/2021 2:07 PM SUPERVISOR NEWSP[employer]ER DELIVERIES Respiratory Rate 18 09/24/2021 2:07 PM SUPERVISOR NEWSPAPER DELIVERIES Oxygen Saturation 99% 09/24/2021 2:07 PM SUPERVISOR NEWSPAPER DELIVERIES Inhaled Oxygen Concentration 98% 11/25/2020 4 :20 PM CDT Weight 86.2 kg (190 lb) 09/24/2021 2:07 PM SUPERVISOR NEWSPAPER DELIVERIES Height 162.6 cm (5' 4 ) 09/24/2021 2:07 PM SUPERVISOR NEWSPAPER DELIVERIES Body Mass Index 32.61 09/24/2021 2:07 PM SUPERVISOR NEWSPAPER DELIVERIES Plan of Treatment Health Maintenance Due Date Last Done Comments HIV SCREENING 02/17/2007 HEPATITIS C SCREENING 02/13/2010 HEPATITIS B VACCINE (1 of 3 - 19+ 3-dose series) 02/17/2011 PAP SMEAR 07/01/2022 07/01/2021 COVID-19 VACCINE (2 - 2023-2 5 season) 2024 08/13/2021 DTAP/TDAP/TD VACCINES (2 - T d or Tdap) 07/04/2024 07/04/2014 DEPRESSION SCREENING 09/07/2024 02/21/2021 INFLUENZA VACCINE (Season Ended) 2025 06/20/20 14 ZOSTER VACCINE (1 of 2) 02/17/2042 HIB VACCINE Aged Out No longer eligi ble based on patient's age to complete this topic HPV VACCINE Aged Out No longer eligi ble based on patient's age to complete this topic MENINGOCOCCAL (Group B) VACC INE SHARED DECISION-MAKING Aged Out No longer eligibl e based on patient's age to complete this topic MENINGOCOCCAL GROUPS A/C/Y/W VACCINE Aged Out No longer eligible b ased on patient's age to complete this topic PNEUMOCOCCAL VACCINE Aged Out No long er eligible based on patient's age to complete this topic Medical Devices Implanted Type Area Hand Sizer Device Identifier Shelf Expiration Date Model / Serial / Lot Stent Uret 6fr 24cm Pgtl Crv Tpr Tip - [id number] Implanted:Qty: 1 on 01/14/2021 by Miller Zamora MD at [facility] Stent Right: Ureter [employer] 09/19/2023 [id number] / [id number] / [id number] Stent Uret 6fr 24cm 2 Drmtr Bldr Loop Implanted:Qty: 1 on 11/25/2020 by Miller Zamora MD at [facility] Right: Ureter [employer] Scimed 01/08/2023 [id number] / / Procedures Procedure Name Priority [...] ORP INSURANCE BILL Comment: Satisfactory for evaluation. Endocervical and/or squamous metaplastic cells (endocervical component) are present. Clinician Provided ICD10 [facility] INSURANCE BILL Comment: Z01.419 N20.0 N76.1 Performed by [facility] INSURANCE BILL Comment:Libby montgomery, Grinder Mill Operator (ASCP) Comment . [facility] INSURANCE BILL Note [facility] INSURANCE BILL Comment: The Pap smear is a screening test designed to aid in the detection of premalignant and malignant conditions of the uterine cervix. It is not a diagnostic procedure and should not be used as the sole means of detecting cervical cancer. Both false-positive and false-negative reports do occur. . [facility] CPT Code Automation [facility] INSURANCE BILL Comment: This liquid based ThinPrep(R) pap test was screened with the use of an image guided system. Note [facility] INSURANCE BILL Comment: The HPV DNA reflex criteria were not met with this specimen result therefore, no HPV testing was performed. . Pathology/Cytolog y PART OF UTERINE CERVIX / Unknown 07/01/2021 4:04 PM CDT 07/02/2021 Narrative [facility] INSURANCE BILL - 07/03/2021 5:08 PM CDT No. of containers..01 ThinPrep Vial Resulting Agency Comment Lab Testing performed at: [facility] [address] [place] [id number] Darryl Starr DO LAB - PATHOLOGY/CYTO LOGY ORDERABLES [facility] INSURANCE BILL [address] [place] [address] from Last 3 Months or Most Recently Relevant to Health Maintenance Advance Directives * Full Code (Latest Code Status on File) Date Activated Date Inactivated Comments 10/20/2015 9:32 AM 10/20/2015 9:32 AM Care Teams Child Care Associate Teacher Relationship Specialty Start Date End Date Citlaly Ramos DO PCP - General Family Medicine 02/21/21 Miller Zamora MD [address] [place] [id number] Urology 02/21/21 Darryl Starr DO [address] [facility] [place] [id number] Obstetrics and Gynecology 07/04/21
--- OUTSIDE RECORDS SUMMARY | 2024-12-09 04:55 | XMS_ITS | Data Portability ---
Author Organization [facility] Address [address] [place] [address] Assessment Encounter Date Assessment Date Assessment LastModified by Organization Details LastModified Time 11/26/2024 11/26/2024 Total time spent caring for the patient today was 60 minutes. This includes time spent before the visit reviewing the chart, time spent during the visit, and time spent after the visit on documentation Impression: The patient presents with a long-standing history of anxiety and depression, with symptom onset during 13 years ago. Her symptoms are characterized by persistent worry, intrusive thoughts, panic attacks, fatigue, and sleep disturbances. She experiences daily anxiety with physical manifestations such as chest tightness and difficulty breathing. Additionally, she reports depressive symptoms, including social withdrawal, low motivation, feelings of hopelessness, and excessive sleep as a coping mechanism. While she endorses passive suicidal ideation, she denies intent or a plan, citing her love for her children as a protective factor. Her psychiatric history includes previous diagnoses of anxiety, panic disorder, and depression, with multiple unsuccessful medication trials, including Zoloft, Buspar, Wellbutrin, and Alprazolam. Lexapro provided some relief at a lower dose but was discontinued last year. She has attempted therapy in the past but did not find it beneficial. Family history is notable for maternal anxiety and depression and a grandmother diagnosed with bipolar disorder. Given her chronic symptoms, history of trauma, and previous depression, she may have an underlying generalized anxiety disorder (AVERY) with comorbid major depressive disorder (MDD), possibly with recurrent or persistent depressive features. The presence of passive suicidal ideation warrants close monitoring, though her protective factors are strong. Not available 11/27/2024 12:17:10 Plan of Treatment Reminders Order Date Submit Date Provider Last Modified By Organization Details Last Modified Time Details Appointments None recorded. Lab beta-HCG, quantitativ e, serum or plasma 2023 024 [place] [facility], [address] [place], [address], 4 12:38:49 CBC w/ auto diff 2023 024 [place] [email or web address], [address] [place], [address], 4 02:21:20 beta-HCG, quantitativ e, serum or plasma 2023 024 [place] [facility], [address] [place], [address], 4 17:21:41 CBC w/ auto diff 2023 024 [place] [facility], [address] [place], [address], 4 18:36:13 test, urine 2023 024 [facility], [address] [place], [address], 4 19:59:13 Referral None recorded. Procedures None recorded. Surgeries None recorded. Imaging None recorded. Medication Orders escitalopra m 10 mg tablet 2024 025 [facility] #[id number], [address], [place], [address], 5 11:49:50 hydroxyzine HCl 25 mg tablet 2024 025 [facility] #[id number], [address], [place], [address], 5 11:49:50 doxycycline hyclate 100 mg capsule 2023 025 [facility] #[id number], [address], [place], [address], 15:16:43 naproxen 500 mg tablet 2023 025 [facility] #[id number], [address], [place], [address], 15:17:14 Patient TargetsNo targets recorded. Patient Instructions Encounter Date Encounter Id Patient Instructions Last Modified By Organization Details Last Modified Time 03/11/2024 [id number] IUD removal: car e instructions Not available 03/11/2024 16:04:05 11/18/2024 [id number] body mass index: care instructions Not available 11/18/2024 15:48:36 learning about depression screening Not available 11/18/2024 15:48:36 A healthy lifestyle: care instructions Not available 11/18/2024 15:48:37 substance use disorder: care instructions Not available 11/18/2024 15:48:36 tobacco cessation Not availabl e 11/18/2024 15:48:36 11/26/2024 [id number] AVERY-7 anxiety scale* DIRK Not available 12/07/2024 04:09:04 Patient Health Questionnaire-9* DIRK Not available 12/07/2024 04:09:04 learning about mood disorders Not available 11/26/2024 11:49:48 panic attacks: care instructions Not available 11/26/2024 11:49:48 Schedule a follow-up visit in 4 weeks or sooner if SI/HI or thoughts of self-harm. Physical activity can reduce anxiety by releasing endorphins. Healthy Diet: Balanced nutrition supports overall mental health. Quality sleep is crucial for managing anxiety. Incorporate regular physical activity into your routine. Practice Relaxation: Use relaxation techniques to manage stress. When to Seek Help: Persistent Symptoms: If anxiety is ongoing and interferes with daily life. Severe Impact: If anxiety leads to significant distress or impairs functioning. Thoughts of Self-Harm: Immediate help is needed if experiencing suicidal thoughts or self-harm urges. Not available 11/27/2024 12:11:35 Discussed integrating evidence-based psychotherapy, such as CBT or trauma-focused therapy, to address both anxiety and depression. Lifestyle modifications, sleep hygiene, Not available 11/27/2024 11:57:53 Reason for Referral None Reported. Results Created Date Observation Date Name Description Value Unit Range Abnormal Flag Note LastModifiedBy Organization Detail LastModifiedTime 06/08/2006/08/2024 CBC (INCL UDES DIFF/ PLT) white blood cell count 6.0 thous and/u L 3.8-10 .8 normal Not Available [facility] [address], [address], 06/08/2024 02:21:17 06/08/2006/08/2024 CBC (INCL UDES DIFF/ PLT) red blood cell count 4.47 sada on/uL 3.80-5 .10 normal Not Available [address], [address], 06/08/2024 02:21:17 06/08/20 24 06/08/2024 CBC (INCL UDES DIFF/ PLT) hemoglobin 10.8 g/dL 11.7-1 5.5 low Not Available [address], [address], 06/08/2024 02:21:17 06/08/2006/08/2024 CBC (INCL UDES DIFF/ PLT) hematocrit 36.8 % 35.0-4 5.0 normal Not Available [facility] [address], [address], 06/08/2024 02:21:17 06/08/2006/08/2024 CBC (INCL UDES DIFF/ PLT) MCV 82.3 fL 80.0-1 00.0 normal Not Available [facility] [address], [address], 06/08/2024 02:21:17 06/08/20 24 06/08/2024 CBC (INCL UDES DIFF/ PLT) MCH 24.2 pg 27.0-3 3.0 low Not Available [address], [address], 06/08/2024 02:21:17 06/08/20 24 06/08/2024 CBC (INCL UDES DIFF/ PLT) MCHC 29.3 g/dL 32.0-3 6.0 low For adult s, a sligh t decre ase in the calcu lated MCHC value (in the range of 30 to 32 g/dL) is most likel y not clini shira signi fican t; chio er, it shoul d be inter prete d with [place] [facility] [place] other red cell esdras eters and the patie nt's clini ricardo condi tion. Not Available [address], [address], 06/08/2024 02:21:17 06/08/20 24 06/08/2024 CBC (INCL UDES DIFF/ PLT) RDW 17.1 % 11.0-1 5.0 high Not Available [address], [address], 06/08/2024 02:21:17 06/08/20 24 06/08/2024 CBC (INCL UDES DIFF/ PLT) platelet count 438 thous and/u L 140-40 0 high Not Available [address], [address], 06/08/2024 02:21:17 06/08/20 24 06/08/2024 CBC (INCL UDES DIFF/ PLT) MPV 10.1 fL 7.5-12 .5 normal Not Available [address], [address], 06/08/2024 02:21:17 06/08/20 24 06/08/2024 CBC (INCL UDES DIFF/ PLT) absolute neutrophils 2754 cells /uL 1500-7 800 normal Not Available [address], [address], 06/08/2024 02:21:17 06/08/20 24 06/08/2024 CBC (INCL UDES DIFF/ PLT) absolute lymphocytes 2040 cells /uL 850-39 00 normal Not Available [address], [address], 06/08/2024 02:21:17 06/08/20 24 06/08/2024 CBC (INCL UDES DIFF/ PLT) absolute monocytes 708 cells /uL 200-95 0 normal Not Available [address], [address], 06/08/2024 02:21:17 06/08/20 24 06/08/2024 CBC (INCL UDES DIFF/ PLT) absolute eosinophils 420 cells /uL 15-500 normal Not Available [address], [address], 06/08/2024 02:21:17 06/08/20 24 06/08/2024 CBC (INCL UDES DIFF/ PLT) absolute basophils 78 cells /uL 0-200 normal Not Available [address], [address], 06/08/2024 02:21:17 06/08/20 24 06/08/2024 CBC (INCL UDES DIFF/ PLT) neutrophils 45.9 % normal Not Available [address], [address], 06/08/2024 02:21:17 06/08/20 24 06/08/2024 CBC (INCL UDES DIFF/ PLT) lymphocytes 34.0 % normal Not Available [address], [address], 06/08/2024 02:21:17 06/08/20 24 06/08/2024 CBC (INCL UDES DIFF/ PLT) monocytes 11.8 % normal Not Available [facility] [place] [address] [place], [address], 06/08/2024 02:21:17 06/08/20 24 06/08/2024 CBC (INCL UDES DIFF/ PLT) eosinophils 7.0 % normal Not Available [facility] [address] [address] [place], [address], 06/08/2024 02:21:17 06/08/20 24 06/08/2024 CBC (INCL UDES DIFF/ PLT) basophils 1.3 % normal Not Available [facility] [place] [address] [place], [address], 06/08/2024 02:21:17 03/23/20 24 03/23/2024 CBC WITH DIFF WBC 6.51 x10'3 /uL 4.5-11 .0 Not Available [facility] (Lab) [place], [address], 03/23/2024 11:03:32 03/23/20 24 03/23/2024 CBC WITH DIFF RBC 4.34 x10'6 /uL 4.20-5 .40 Not Available [facility] (Lab) [place], [address], 03/23/2024 11:03:32 03/23/20 24 03/23/2024 CBC WITH DIFF hemoglobin 10.5 g/dL 12.0-1 6.0 low Not Available [facility] (Lab) [place], [address], 03/23/2024 11:03:32 03/23/20 24 03/23/2024 CBC WITH DIFF hematocrit 33.3 % 38.0-4 8.0 low Not Available [facility] (Lab) [place], [address], 03/23/2024 11:03:32 03/23/20 24 03/23/2024 CBC WITH DIFF MCV 76.7 fL 81.0-9 9.0 low Not Available [facility] (Lab) [address], [place], [address], 03/23/2024 11:03:32 03/23/20 24 03/23/2024 CBC WITH DIFF MCH 24.2 pg 27.0-3 1.0 low Not Available [facility] (Lab) [address], [place], [address], 03/23/2024 11:03:32 03/23/20 24 03/23/2024 CBC WITH DIFF MCHC 31.5 g/dL 32.0-3 6.0 low Not Available [facility] (Lab) [address], [place], [address], 03/23/2024 11:03:32 03/23/20 24 03/23/2024 CBC WITH DIFF RDW 17.7 % 11.5-1 4.5 high Not Available [facility] (Lab) [address], [place], [address], 03/23/2024 11:03:32 03/23/20 24 03/23/2024 CBC WITH DIFF platelet count 453 x10'3 /uL 130-40 0 high Not Available [facility] (Lab) [address], [place], [address], 03/23/2024 11:03:32 03/23/20 24 03/23/2024 CBC WITH DIFF MPV 9.0 fL 9.3-12 .2 low Not Available [facility] (Lab) [address], [place], [address], 03/23/2024 11:03:32 03/23/20 24 03/23/2024 CBC WITH DIFF diff type AUTOMA MERNA DIFFER ENTIAL Not Available [facility] (Lab) [address], [place], [address], 03/23/2024 11:03:32 03/23/20 24 03/23/2024 CBC WITH DIFF neutrophils 58.3 % Not Available [facility] (Lab) [address], [place], [address], 03/23/2024 11:03:32 03/23/20 24 03/23/2024 CBC WITH DIFF lymphocytes 26.3 % Not Available [facility] (Lab) [address], [place], [address], 03/23/2024 11:03:32 03/23/20 24 03/23/2024 CBC WITH DIFF monocytes 9.8 % Not Available [facility] (Lab) [address], [place], [address], 03/23/2024 11:03:32 03/23/20 24 03/23/2024 CBC WITH DIFF eosinophils 4.3 % Not Available [facility] (Lab) [address], [place], [address], 03/23/2024 11:03:32 03/23/20 24 03/23/2024 CBC WITH DIFF basophils 0.8 % Not Available [facility] (Lab) [address], [place], [address], 03/23/2024 11:03:32 03/23/20 24 03/23/2024 CBC WITH DIFF immature granulocytes 0.5 % Not Available [facility] (Lab) [address], [place], [address], 03/23/2024 11:03:32 03/23/20 24 03/23/2024 CBC WITH DIFF abs. neutrophils 3.80 x10'3 /uL 1.80-7 .70 Not Available [facility] (Lab) [address] [facility], [place], [address], 03/23/2024 11:03:32 03/23/20 24 03/23/2024 CBC WITH DIFF abs. lymphocytes 1.71 x10'3 /uL 1.00-4 .80 Not Available [facility] (Lab) [place], [address], 03/23/2024 11:03:32 03/23/20 24 03/23/2024 CBC WITH DIFF abs. monocytes 0.64 x10'3 /uL 0.24-0 .86 Not Available [facility] (Lab) [address], [place], [address], 03/23/2024 11:03:32 03/23/20 24 03/23/2024 CBC WITH DIFF abs. eosinophils 0.28 x10'3 /uL 0.04-0 .36 Not Available [facility] (Lab) [place], [address], 03/23/2024 11:03:32 03/23/20 24 03/23/2024 CBC WITH DIFF abs. basophils 0.05 x10'3 /uL 0.01-0 .08 Not Available [facility] (Lab) [place], [address], 03/23/2024 11:03:32 03/23/20 24 03/23/2024 CBC WITH DIFF abs. immature grans 0.03 x10'3 /uL 0.00-0 .49 Not Available [facility] (Lab) [place], [address], 03/23/2024 11:03:32 03/23/20 24 03/25/2024 SJS SURGI RICARDO PATHO LOGY path report [facility] Depar tment of Labor atory Medic ine [address] [facility] [address] [facility] [place] [address] Telep merary: , exten osito 07 Patho logy Repor t Surgi ricardo Patho logy Repor t Name: BRANDON ALEXANDER, DATRE ION L Speci men #: [id number] Age: [id number] (Age: 34) Locat ion: [place] Sex: F Proce dure Date: 2023 [facility] #: [id number] Date Recei laith: 2023 Date Repor merna: 2023 Provi james: PATEL Day MD [facility] e: Vagin al cyst Clini ricardo [...] and sign out were perfo rmed at [facility], [address], [facility] [place] [address] . FINAL DIAGN OSIS: Vagin a, cyst, excis ion: -Jarod gn Mulle diomedes cyst with focal squam ous metap lasia . Lisa ctron icall y Coral d Out KHANH Nice MD [id number] [phone] Not Available [facility] (Lab) [address] [facility], [place], [address], 03/25/2024 11:22:21 05/31/20 24 06/01/2024 CBC (INCL UDES DIFF/ PLT) WBC 7.4 thous and/u L 4.0 - 9.8 normal Not Available [employer] [address] [place] [address], [address], 06/01/2024 18:36:13 05/31/2006/01/2024 CBC (INCL UDES DIFF/ PLT) RBC 4.2 sada on/uL 3.9 - 4.9 normal Not Available [facility] [employer] [address] [place] [address], [address], 06/01/2024 18:36:13 05/31/2006/01/2024 CBC (INCL UDES DIFF/ PLT) hemoglobin 10.2 g/dL 11.8 - 14.8 low Not Available [facility] [employer] [address] [place] [address], [address], 06/01/2024 18:36:13 05/31/20 24 06/01/2024 CBC (INCL UDES DIFF/ PLT) hematocrit 31.9 % 35.5 - 44.0 low Not Available [employer] [address] [place] [address], [address], 06/01/2024 18:36:13 05/31/2006/01/2024 CBC (INCL UDES DIFF/ PLT) MCV 75.2 fL 82.0 - 99.0 low Not Available [facility] [address] [place] [address], [address], 06/01/2024 18:36:13 05/31/2006/01/2024 CBC (INCL UDES DIFF/ PLT) MCH 24.1 pg 27.2 - 32.6 low [place], [address], 06/01/2024 18:36:13 05/31/20 24 06/01/2024 CBC (INCL UDES DIFF/ PLT) MCHC 32.0 g/dL 31.5 - 35.5 normal Not Available [address], [address], 06/01/2024 18:36:13 05/31/2006/01/2024 CBC (INCL UDES DIFF/ PLT) RDW-CV 18.7 % 11.5 - 14.5 high Not Available [address], [address], 06/01/2024 18:36:13 05/31/2006/01/2024 CBC (INCL UDES DIFF/ PLT) platelet 427 thous and/u L 140 - 350 high Not Available [address], [address], 06/01/2024 18:36:13 05/31/2006/01/2024 CBC (INCL UDES DIFF/ PLT) MPV 10.5 fL 9.3 - 12.4 normal Not Available [address], [address], 06/01/2024 18:36:13 05/31/2006/01/2024 CBC (INCL UDES DIFF/ PLT) absolute neutrophil 3.62 thous and/u L 1.90 - 7.00 normal Not Available [address], [address], 06/01/2024 18:36:13 05/31/2006/01/2024 CBC (INCL UDES DIFF/ PLT) absolute lymphocyte 2.53 thous and/u L 0.70 - 4.50 normal Not Available [address], [address], 06/01/2024 18:36:13 05/31/2006/01/2024 CBC (INCL UDES DIFF/ PLT) absolute monocyte 0.83 thous and/u L 0.10 - 1.30 normal Not Available [address], [address], 06/01/2024 18:36:13 05/31/20 24 06/01/2024 CBC (INCL UDES DIFF/ PLT) absolute eosinophil 0.32 thous and/u L <0.70 normal Not Available [address], [address], 06/01/2024 18:36:13 05/31/20 24 06/01/2024 CBC (INCL UDES DIFF/ PLT) absolute basophil 0.05 thous and/u L <0.20 normal Not Available [address], [address], 06/01/2024 18:36:13 05/31/20 24 06/01/2024 CBC (INCL UDES DIFF/ PLT) absolute immature granulocyte 0.03 thous and/u L <0.03 normal Not Available [address], [address], 06/01/2024 18:36:13 05/31/20 24 06/02/2024 HCG, TOTAL [...] has not been valid ated by the [facility] actur er of this assay . Not Available [address], [address], 06/02/2024 17:21:41 05/31/20 24 05/31/2024 pregn janet test, urine HCG positi ve Not Available [facility] [address] [facility], [place], [address], 05/31/2024 09:27:00 06/07/20 24 06/09/2024 HCG, TOTAL [...] has not been valid ated by the jennifer actur er of this assay . Not Available [facility] [address] [place], [address], 06/09/2024 12:38:49 Result Notes None recorded. Problems Name Problem SNOMED Code Status Onset Date Resolution Date Notes Provider Name and Address Organization Details Recorded Time Generalized anxiety disorder 75565318 Active 2024 SHOSHANA Mcfarland [address] [place] [address], [phone], [facility] [employer] [facility] 5 11:45:39 Panic attack 671405645 Active 2024 Kris Rodrigues MARIANA [address] [place] [address], [phone], [facility] 5 11:45:50 Depressive disorder 33400183 Active 2024 Kris Rodrigues [address], [address], [facility] [employer] [facility] 5 11:46:05 Disturbance in sleep behavior 17938824 Active 2024 SHOSHANA Mcfarland [address] [place] [address], [phone], [facility] [employer] [facility] 5 11:46:19 Persistent depressive disorder 4818055667 Active 2024 Kris Rodrigues MARIANA [address] [place] [address], [phone], [facility] [employer] [facility] 5 11:46:50 Problem Notes None recorded. Procedures Surgical History Date Name Laterality Status Provider Name and Address Organization Details Recorded Time 024 Suture/Staple removal cancelled Susana Hillman [facility] 04/08/2024 12:14:07 024 removal of intrauterine contraceptive device completed Jennifer Tory [facility] 05/31/2024 09:19:41 024 IUD Removal completed DIANE BRITO, [facility] [address] [place], [address], [facility] 03/11/2024 16:02:14 023 Date of Last Pap Smear completed Candice Givens, [facility] [address] [place], [address], [facility] IV 11/06/2024 19:54:47 Imaging Results None recorded. Procedure Notes None recorded. Medical Equipment None Reported. Allergies Allergen ID Allergen Name Allergen Category Reaction Reaction Severity Criticality Documentation Date Start Date Code Code System Note Provider Name and Address Organization Details Recorded Time 639869 Product containin g penicilli n (product) medicatio n Not available Not available Not available 02/09/2023 48840 8001 SNOMED Not Available Not Available Not Available 891934 house dust allergeni c extract environme nt,medica tion Not available Not available Not available 02/09/2023 74983 9 RxNorm Not Available Not Available Not Available 394869 cat dander environme nt Not available Not available Not available 02/09/2023 27019 UNK Not Available Not Available Not Available 795670 Canis lupus familiari s extract environme nt Not available Not available Not available 02/09/2023 06656 4 RxNorm Not Available Not Available Not Available 801609 mold extract environme nt Not available Not available Not available 02/09/2023 86524 8 RxNorm Not Available Not Available Not Available 627621 Augmentin medicatio n Not available Not available Not available 03/11/2024 01745 2 RxNorm Not Available Not Available Not Available Medications Name Sig Start Date Stop Date Status Note LastModified by Organization Details LastModified Time cyclobenzap rine 10 mg tablet TAKE 1 TABLET EACH NIGHT NEEDED FOR LOW BACK PAIN 03/11 completed Not Available Not Available Not Available doxycycline hyclate 100 mg capsule TAKE 1 CAPSULE BY MOUTH TWICE A DAY FOR 10 DAYS 11/18 completed Not Available Not Available Not Available clindamycin HCl 300 mg capsule TAKE [...] INJECT 1 INTRAMUSC ULARLY EVERY 3 WEEKS 11/18 completed Not Available Not Available Not Available ferrous sulfate 325 mg (65 mg [...] completed Not Available Not Available Not Available hydroxyzine HCl 25 mg tablet Take 1 to 2 tablets by mouth daily at bedtime 2024 active Not Available Not Available Not Avai lable ibuprofen 600 mg tablet TAKE ONE TABLET [...] SWALLOW EVERY 6 HOURS NEEDED FOR NAUSEA. 11/18 completed Not Available Not Available Not Available fluticasone propionate 50 mcg/actuati on nasal spray,suspe nsion TAKE 1 SPRAY IN EACH NOSTRIL DAILY FOR 14 DAYS. 11/18 completed Not Available Not Available Not Available doxycycline hyclate 100 mg tablet TAKE 1 TABLET BY MOUTH TWICE A DAY FOR 10 DAYS 05/31 completed Not Available Not Available Not Available naproxen 500 mg tablet TAKE 1 TABLET BY MOUTH TWICE A DAY NEEDED FOR MODERATE PAIN 11/18 completed Not Available Not Available Not Available hydroxyzine pamoate 25 mg capsule PLEASE SEE ATTACHED FOR DETAILED DIRECTION S 11/18 completed Not Available Not Available Not Available neomycin-po lymyxin-hyd rocort 3.5 mg-10,000 unit/mL-1 % ear drops,susp PLACE 2 DROPS IN BOTH EARS 4 TIMES DAILY FOR 7 DAYS 03/11 completed Not Available Not Available Not Available escitalopra m 10 mg tablet Take 1 tablet every day by oral route. 2024 active Not Available Not Available Not Avai lable escitalopra m 5 mg tablet TAKE 1 TABLET BY MOUTH ONCE DAILY 11/18 completed Not Available Not Available Not Available nitrofurant oin monohydrate /macrocryst als 100 [...] t Available Vitals Date Recorded Body weight Body mass index (BMI) Body height Systolic blood pressure Diastolic blood pressure Provider Name and Address Organization Details Last Updated DateTime 03/11/2024 55130.9 6 g 32.4 kg/m2 162.56 cm 100 mm[Hg] 72 mm[Hg] Jennifer Spears [employer] [facility] 4 15:35:27 Date Recorded Body height Body mass index (BMI) Body weight Systolic blood pressure Diastolic blood pressure Provider Name and Address Organization Details Last Updated DateTime 05/31/2024 162.56 cm 33.1 kg/m2 14144.3 3 g 106 mm[Hg] 54 mm[Hg] Jennifer Spears [facility] 4 09:26:43 Date Recorded Body height Body mass index (BMI) Body weight Systolic blood pressure Diastolic blood pressure Provider Name and Address Organization Details Last Updated DateTime 06/06/2024 162.56 cm 32.8 kg/m2 02588.14 g 120 mm[Hg] 60 mm[Hg] Kaylee Carpio [facility] 4 15:58:43 Date Recorded Body height Body mass index (BMI) Body weight Systolic blood pressure Diastolic blood pressure Provider Name and Address Organization Details Last Updated DateTime 11/18/2024 162.56 cm 31.7 kg/m2 56993.15 g 110 mm[Hg] 68 mm[Hg] Camila Strauss [facility] 15:15:53 Social History Question Answer Notes LastModified by Organizat ion Details LastModified Time Tobacco Smoking Status Former Smoker Laura Ca ellis, [facility] 02/09/2023 11:51:45 What Is Your Level Of Alcohol Consumption? Occasional Information not available 02/09/2023 How Many Years Have You Consumed Alcohol? 7 [email or web address] Information not available 02/09/2023 Are You Blind Or Do You Have Difficulty Seeing? No Information not available 03/11/2024 Are You Currently Employed? Yes [email or web address] Information not available 11/18/2024 Are You Deaf Or Do You Have Serious Difficulty Hearing? No Information not available 03/11/2024 What Type Of Diet Are You Following? REGULAR Information not available 02/09/2023 Do You Or Have You Ever Used E-cigarettes Or Vape? Current User Of Electronic Cigarettes [email or web address] Information not available 02/09/2023 When Did You Quit Smoking? 6-10yearssince lastcigarette Information not available 11/18/2024 How Many Children Do You Have? 2 Information not available 03/11/2024 Are There Any Occupational Health Risks Where You Work? No [email or web address] Information not available 11/18/2024 What Is Your Relationship Status? Single Information not available 02/09/2023 Are You Sexually Active? Yes [email or web address] Information not available 02/09/2023 At What Age Did You Start Smoking Tobacco? 25 [email or web address] Information not available 11/18/2024 How Much Tobacco Do You Smoke? No [email or web address] Information not available 11/18/2024 Do You Use Any Illicit Or Recreational Drugs? No Information not available 03/11/2024 How Many Years Have You Smoked Tobacco? 3 [email or web address] Information not available 11/18/2024 Sex: Unknown Functional Status Question Answer Note LastModified by Organizat ion Details LastModified Time What is your exercise level? Occasional [email or web address] Information not available 02/09/2023 Mental Status None recorded. Family History Relationship Description Onset Age of this Age Resolved Age Notes LastModified by Organization Details LastModified Time Mother Depressive disorder [email or web address] Not available 2022 11:51:36 Mother Hypertensive disorder [email or web address] Not available 2022 11:51:36 Maternal Grandmother Depressive disorder [email or web address] Not available 2022 11:51:36 Maternal Grandmother Hypertensive disorder [email or web address] Not available 2022 11:51:36 Medical History Condition Response Other Cancer N High Blood Pressure N Colon Cancer N Cytomegalovirus N Hyperthyroidism N MRSA N Breast Cancer N Herpes (HSV) N Blood Transfusion N Lung Cancer N Depression N Hypothyroidism N Incontinence N Panic Attacks N Neurological Disorder N Deep Vein Thrombosis N Anxiety Disorder N Autoimmune disease N Arthritis N Tuberculosis/Positive PPD N Shingles N Polycystic Ovarian Syndrome N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
--- OUTSIDE RECORDS SUMMARY | 2024-12-09 04:55 | XMS_ITS | Continuity of Care Document ---
Author Organization [facility] Address [address] [place] [address] Phone Care Team Providers Care Director Of Employee Development Name Role Phone Unavailable Unavailable Unavailable Procedures Procedure Date Extraction erupted tooth or exposed root Limit Oral Evaluation- problem focused J Periapical Radiographic, first Image Feb Advance Directives Directive Yes / No Effective Date File Name No Information Encounters Encounter Description Practice Location Reason(s) For Visit Diagnoses Date Provider Providers [facility] [address], [place], [place], [id number], tel:[phone] [facility] Dental caries on pit and fissure surface penetrat into pulp No Information Referring Provider: Ervin Clayton [address], [place], [address]. tel:[phone] Family History Family Member Type Diagnosis Age At Onset No Information Payers Payer name Insurance type Covered constitution party ID Authoriza tion(s) No Information Social [...]
--- OUTSIDE RECORDS SUMMARY | 2024-12-09 04:55 | XMS_ITS | Clinical Summary ---
Author Organization [facility] Address [address] [place] [address] Care Team Providers Care Filament Wound Parts Fabricator Name Role Phone Non-Staff, Provider Primary Care Provider Unavai lable Allergies Active Allergy Reactions Criticality Noted [...] 82 03/23/2024 4:05 PM CDT Temperature 36.9 C (98.4 F) 03/23/2024 4:05 PM CDT Respiratory Rate 16 03/23/2024 4:05 PM CDT [...] - 2023-2 5 season) 2024 02/25/2023, 08/13/2021 DTaP, Tdap and Td Vaccines ( 3 - Td or Tdap) 01/26/2033 01/26/2023, 07/04/2014 HPV Vaccines Aged Out No longer eligi ble based on patient's age to complete this topic Meningococcal B Vaccine Aged Out No l onger eligible based on patient's age to complete [...] patient's age to complete this topic Insurance T Advance Directives * Full Code (Latest Code Status on File) Date Activated Date Inactivated Comments 03/23/2024 2:19 PM 03/23/2024 6:20 PM Care Teams Filament W[employer] Fabricator Relationship Specialty Start Date End Date Non-Staff, Provider PCP - General UNKNOWN PHYSICIAN SPECIALTY 03/23/24
[2024-12-09 04:58] VITALS: BP 131/94; PULSE 91; RESP 14; TEMP 36.8; O2SAT 100
--- NOTE | 2024-12-09 05:18 | ED_ITS ---
HPI - Abdominal Pain General Chief Complaint: Abdominal Pain Stated Complaint: LUQ abd pain x3 weeks Time Seen by Provider: 12/09/24 05:09 History of Present Illness HPI narrative: 34-year-old female with a history of horseshoe kidney and kidney stones requiring lithotripsy. She presents with left upper quadrant and left flank pain for 3 weeks. Intermittent in nature, she states she gets more comfort when she lies still when she moves, walks or exerts herself she has more pain in that side. No trauma or injury. Patient states this does not resemble her kidney stone pain and your that occurs on the right side. Has taken Tylenol, ibuprofen and Excedrin without any relief of symptoms. No nausea vomiting. No urinary complaints. Denies chance of . No vaginal bleeding. No significant alcohol drinking and no history of gastritis. Related Data Allergies Allergy/AdvReac Type Severity Reaction Status Date / Time amoxicillin (From Augmentin) Allergy Hives Verified 12/09/24 05:05 clavulanic acid (From Allergy Hives Verified 12/09/24 05:05 Augmentin) hydrocodone (From Vicodin) Allergy Hives Verified 12/09/24 05:05 Review of Systems 2 Review of Systems: As reviewed above in HPI Exam 2 Narrative: GENERAL: [Well-appearing, well-nourished, and in no acute distress.] HEAD: [Normocephalic, atraumatic.] EYES: [PERRLA and EOMI.] ENT: Nares clear, no rhinorrhea or epistaxis. Mucous membranes moist. NECK: Supple. CHEST: [Clear to auscultation. No respiratory distress.] HEART: [Regular rate and rhythm]. No murmur heard. [Normal peripheral pulses.] ABDOMEN: [Soft, nondistended], [nontender], [No rigidity or guarding] EXTREMITIES: Normal range of motion. [No edema.] SKIN: Warm, dry, no rash. NEURO: [No focal deficits]. Alert and oriented [x3.] PSYCH: [Normal mood and affect.] Course Vital Signs Vital signs: Vital Signs Temperature 36.8 C 12/09/24 04:58 Pulse Rate 91 12/09/24 04:58 Respiratory Rate 14 12/09/24 04:58 Blood Pressure 131/94 H 12/09/24 04:58 Pulse Oximetry 100 12/09/24 04:58 Oxygen Delivery Room Air 12/09/24 04:58 Temperature 36.8 C 12/09/24 04:58 Pulse Rate 76 12/09/24 06:25 Respiratory Rate 15 12/09/24 06:25 Blood Pressure 126/55 L 12/09/24 06:25 Pulse Oximetry 100 12/09/24 06:25 Oxygen Delivery Room Air 12/09/24 04:58 MDM - Abdominal Pain MDM Narrative Medical decision making narrative: 34-year-old female with history of horseshoe kidney and kidney stones requiring lithotripsy. She presents with left upper quadrant pain for 3 weeks intermittent in nature. No nausea, vomiting, abnormal bowel movements, diarrhea, constipation, urinary complaints. Denies any chance of . She is otherwise well-appearing not any distress. She has tried Tylenol and ibuprofen without any relief. She has normal vital signs, no tachycardia, fever, hypoxia significant blood pressure concerns. Soft nontender nondistended abdomen or flank. Present suspicion with her colicky symptoms as potential kidney stone, renal colic, gastritis. Gastroenteritis. No suspicion presently for symptomatology any other side such as cholecystitis. CT scan without contrast was ordered, she was given intramuscular Bentyl for symptom control and basic laboratory studies and test was ordered in addition to urinalysis. Patient's urinalysis is contaminated but her CT scan does show a left kidney stone without any obstruction. Will treat this empirically with antibiotics. She had improvement in pain control after Toradol. Her laboratory studies show normal kidney function, normal electrolytes, normal liver function and normal white count. Patient presently does not have a urologist but her last urologist was in [place]. I will refer her to our current urologist and provide her pain medications and symptom controlling medications for kidney stone likely causing some degree of renal colic. She was sent home on appropriate prescriptions and will follow up on outpatient basis. She was given strict return precautions which she verbalized understanding. Medical Records Attestation: I reviewed the patient's medical records. Lab Data Attestation: I reviewed the patient's lab results. 12/09/24 05:26 12/09/24 05:26 Labs: Lab Results 12/09/24 12/09/24 12/09/24 Range/Units 05:26 05:27 05:28 WBC 6.9 (4.5-10.0) K/mm3 RBC 4.67 (4.2-5.4) M/mm3 Hgb 11.6 L (12.0-15.0) g/dL Hct 36.8 L (37.0-47.0) % MCV 78.8 L (80-100) fl MCH 24.8 L (26-34) pg MCHC 31.5 L (32-36) g/dl RDW 19.5 H (11.5-14.5) % Plt Count 359 (150-375) k/mm3 MPV 9.1 (7.4-10.4) fl Immature Gran % (Auto) 0.6 H (0-0.5) % Neut % (Auto) 45.5 (45.5-73.1) % Lymph % (Auto) 32.3 (18.3-44.2) % Trinity % (Auto) 12.9 H (2.6-8.5) % Eos % (Auto) 7.4 H (0-4.4) % Baso % (Auto) 1.3 H (0.2-1.2) % Lymph # (Auto) 2.23 (0.9-3.2) K/mm3 Trinity # (Auto) 0.9 H (0.1-0.6) K/mm3 Eos # (Auto) 0.5 H (0-0.3) K/mm3 Baso # (Auto) 0.1 (0.0-0.1) K/mm3 Abs Immat Gran (auto) 0.04 H (0.00-0.031) K/mm3 Absolute Neuts (auto) 3.2 (1.3-6.7) K/mm3 Absolute Nucleated RBC 0.000 (0.0-0.012) K/mm3 Nucleated RBC % 0.0 (0.0-0.2) % Sodium 136 L (137-145) mmol/L Potassium 3.8 (3.4-5.0) mmol/L Chloride 105 (98-107) mmol/L Carbon Dioxide 25 (22-30) mmol/L Anion Gap 6 (4-12) mmol/L BUN 11 (7-17) mg/dL Creatinine 0.64 L (0.7-1.0) mg/dL Estim Creat Clear Calc 113 ml/min Estimated GFR > 60 (59 - ) Glucose 86 (65-110) mg/dL Calcium 8.7 (8.4-10.2) mg/dL Total Bilirubin 0.3 (0.2-1.3) mg/dL AST 20 (14-36) U/L ALT 11 (6-35) U/L Alkaline Phosphatase 53 (38-126) U/L Total Protein 7.0 (6.3-8.2) g/dL Albumin 4.0 (3.5-5.1) g/dL Lipase 180 (23-300) U/L Urine Color Yellow (Yellow) Urine Appearance Cloudy H (Clear) Urine pH 5.5 (5.0-9.0) Ur Specific [place] 1.016 (1.001-1.035) Urine Protein 2+ H (Negative) mg/dL Urine Glucose (UA) Negative (Negative) mg/dL Urine Ketones Negative (Negative) mg/dL Ur Blood (Man) 2+ H (Negative) Urine Nitrate Negative (Negative) Urine Bilirubin Negative (Negative) Urine Urobilinogen 0.2 (<2.0) mg/dL Leukocyte Esterase Rfl 2+ H (Negative) SHAI/UL Urine RBC 21-50 H (0-2) /hpf Urine WBC 51-100 H (0-3) /hpf Ur Squamous Epith Cells Moderate (Few) /hpf Urine Bacteria 1+ H /hpf Urine Casts 0-2 POC Urine HCG, Qual Negative (Negative) Imaging Data Attestation: I personally reviewed and interpreted this imaging study as follows: My impression: Impressions Abdomen/Pelvis CT 12/09/24 06:17 Impression: 10 x 7 mm ovoid stone at left renal pelvis with minimal fullness of left renal pelvis. Nonobstructing right renal stones, as above. Horseshoe kidney. Radiologist's impression: ITS Impressions Abdomen/Pelvis CT 12/09/24 06:17 Impression: 10 x 7 mm ovoid stone at left renal pelvis with minimal fullness of left renal pelvis. Nonobstructing right renal stones, as above. Horseshoe kidney. Discharge Plan Discharge Clinical Impression: Calculus of left kidney, Horseshoe kidney Patient Disposition: Home, Self-Care Condition: Stable Instructions: Antibiotic Form, Kidney Stones (ED), Flank Pain (ED) Additional Instructions: You have a 1 cm x 0.7 cm kidney stone in the left renal pelvis and this is likely causing your symptoms. No obstruction. Your urine does not overtly have a infection and it is contaminated but with some bacteria will be treating this aggressively given that you have a kidney stone and a horseshoe kidney. We will send you home with pain medications and antibiotics. Please call the provided urologist for close outpatient follow-up visit and further management. Return with any new or worsening concerns at any time. Patient Language: Icelandic Prescriptions: New cefuroxime axetil 500 mg tablet 500 mg PO Q12H 7 Days Qty: 14 0RF acetaminophen [Tylenol Extra Strength] 500 mg tablet 1,000 mg PO TID PRN (Reason: pain) Qty: 30 0RF methocarbamol 750 mg tablet 750 mg PO TID PRN (Reason: pain) Qty: 20 0RF tamsulosin [Flomax] 0.4 mg capsule 0.4 mg PO DAILY Qty: 20 0RF ondansetron 4 mg tablet,disintegrating 4 mg PO Q8H PRN (Reason: nausea and vomiting) Qty: 10 0RF oxycodone 5 mg tablet 5 mg PO Q8H PRN (Reason: pain) Qty: 10 0RF Follow-up/Referrals: Francesco Powell MD [Physician] - 1 Week (Kidney stones, horseshoe kidney) UNKNOWN,DOCTOR [Primary Care Provider] - Time of Disposition: 06:54
[2024-12-09] MEDS: DICYCLOMINE HCL INJ 20 MG/2 ML VIAL IM (05:23)
[2024-12-09] MEDS: LACTATED RINGERS 1,000 ML 999 ML IV CONT (05:23)
[2024-12-09 05:29] LABS: BEDSIDEPREGUCG Negative (Negative)
[2024-12-09 05:35] LABS: Basophils Absolute Auto 0.1 K/mm3 (0.0-0.1); Basophils Percent Auto 1.3 % (0.2-1.2); Eosinophils Absolute Auto 0.5 K/mm3 (0-0.3); Eosinophils Percent Auto 7.4 % (0-4.4); Hematocrit 36.8 % (37.0-47.0); Hemoglobin 11.6 g/dL (12.0-15.0); Immature Granulocyte Absolute 0.04 K/mm3 (0.00-0.031); Immature Granulocyte Percent A 0.6 % (0-0.5); Lymphocytes Absolute Auto 2.23 K/mm3 (0.9-3.2); Lymphocytes Percent Auto 32.3 % (18.3-44.2); Mean Corpuscular HGB Conc 31.5 g/dl (32-36); Mean Corpuscular Hemoglobin 24.8 pg (26-34); Mean Corpuscular Volume 78.8 fl (80-100); Mean Platelet Volume 9.1 fl (7.4-10.4); Monocytes Absolute Auto 0.9 K/mm3 (0.1-0.6); Monocytes Percent Auto 12.9 % (2.6-8.5); Neutrophils Absolute Auto 3.2 K/mm3 (1.3-6.7); Neutrophils Percent Auto 45.5 % (45.5-73.1); Platelet Count Result 359 k/mm3 (150-375); Red Blood Count 4.67 M/mm3 (4.2-5.4); Red Cell Distribution Width 19.5 % (11.5-14.5); White Blood Count 6.9 K/mm3 (4.5-10.0)
[2024-12-09 05:40] LABS: Add Urine Microscopic? YES; Appearance Urine Cloudy (Clear); Bacteria Urine 1+ /hpf; Bilirubin Urine Negative (Negative); Blood Urine 2+ (Negative); Color Urine Yellow (Yellow); Glucose Urine UA Negative (Negative); Ketones Urine Negative (Negative); Leukocyte Esterase Ur 2+ LEU/UL (Negative); Nitrate Urine Negative (Negative); Non Pathogenic Casts 0-2; Protein Urine 2+ mg/dL (Negative); RBC Urine 21-50 /hpf (0-2); Specific Grav Ur 1.016 (1.001-1.035); Squamous Epithelial Cell Urine Moderate /hpf (Few); Urobilinogen Urine 0.2 mg/dL (<2.0); WBC Urine 51-100 /hpf (0-3); pH Urine 5.5 (5.0-9.0)
--- OUTSIDE RECORDS SUMMARY | 2024-12-09 05:43 | XMS_ITS | Clinical Summary ---
Author Organization [facility] Address [address] [place] [address] Care Team Providers Care Systems Administrator Name Role Phone TheresaAnkita modiron GUZMAN Primary Care Provider [phone] Miller Zamora MD Unavailable [phone] Darryl Starr DO Unavailable Source Comments [facility],non-owned Affiliates and Associated Physician Practices is amultiple site organization consisting of ambulatory clinics and hospital sitesin [place], [place], [place] and [place]. This disclosure is being madepursuant to the Care Everywhere program and may not contain all information available regarding this patient. Last updated 18.[facility] Allergies Active Allergy Reactions Criticality Noted Date [...] Comments Blood Pressure 128/84 09/24/2021 2:07 PM PLUMBER PIPE FITTING Pulse 93 09/24/2021 2:07 PM PLUMBER PIPE FITTING Temperature 37.2 C (98.9 F) 09/24/2021 2:07 PM PLUMBER PIPE FITTING Respiratory Rate 18 09/24/2021 2:07 PM PLUMBER PIPE FITTING Oxygen Saturation 99% 09/24/2021 2:07 PM PLUMBER PIPE FITTING Inhaled Oxygen Concentration 98% 11/25/2020 4 :20 PM CDT Weight 86.2 kg (190 lb) 09/24/2021 2:07 PM PLUMBER PIPE FITTING Height 162.6 cm (5' 4 ) 09/24/2021 2:07 PM PLUMBER PIPE FITTING Body Mass Index 32.61 09/24/2021 2:07 PM PLUMBER PIPE FITTING Plan of Treatment Health Maintenance Due Date [...] this topic Medical Devices Implanted Type Area Beater Tender Device Identifier Shelf Expiration Date Model / Serial / Lot Stent Uret 6fr 24cm Pgtl Crv Tpr Tip - [id number] Implanted:Qty: 1 on 01/14/2021 by Miller Zamora MD at [facility] Stent Right: Ureter [place] [employer] 09/19/2023 [id number] / [id number] / [id number] Stent Uret 6fr 24cm 2 Drmtr Bldr Loop Implanted:Qty: 1 on 11/25/2020 by Miller Zamora MD at [facility] Right: Ureter [place] [employer] 01/08/2023 [id number] / / Procedures Procedure Name Priority [...] BILL Comment: Z01.419 N20.0 N76.1 Performed by [facility] INSURANCE BILL Comment:Libby montgomery, Sales Marketing (ASCP) Comment . [facility] INSURANCE BILL Note [...] use of an image guided system. Note [facility] INSURANCE BILL Comment: The HPV DNA reflex criteria were not met with this specimen result therefore, no HPV testing was performed. . Pathology/Cytolog y PART OF UTERINE CERVIX / Unknown 07/01/2021 4:04 PM CDT 07/02/2021 Narrative [facility] INSURANCE BILL - 07/03/2021 5:08 PM CDT No. of containers..01 ThinPrep Vial Resulting Agency Comment Lab Testing performed at: [facility] [address] [place] [id number] Darryl Starr DO LAB - PATHOLOGY/CYTO LOGY ORDERABLES [facility] INSURANCE BILL [address] [place] [address] from Last 3 Months or Most Recently Relevant to Health Maintenance Advance Directives * Full Code (Latest Code Status on File) Date Activated Date Inactivated Comments 10/20/2015 9:32 AM 10/20/2015 9:32 AM Care Teams Systems Administrator Relationship Specialty Start Date End Date Citlaly Ramos DO PCP - General Family Medicine 02/21/21 Miller Zamora MD [address] [place] [id number] Urology 02/21/21 Darryl Starr DO [address] [facility] [place] [id number] Obstetrics and Gynecology 07/04/21
--- OUTSIDE RECORDS SUMMARY | 2024-12-09 05:43 | XMS_ITS | Referral Summary ---
Author Organization [facility] Address [address] [place] [id number] Care Team Providers Care Gluer And Slicer Hand Name Role Phone Citlaly Ramos DO Primary Care Provider [phone] Allergies Active Allergy Reactions Criticality Noted Date [...] file Legal Sex Female 1:00 AM CANOE BUILDER Gender Identity Not on file Sexual Orientation Not on file Last Filed Vital Signs Vital Sign Reading Time Taken Comments Blood Pressure 126/86 10/16/2021 12:40 PM CANOE BUILDER Pulse 82 10/16/2021 12:40 PM CANOE BUILDER Temperature 36.7 C (98.1 F) 10/21/2021 1:29 PM CANOE BUILDER Respiratory Rate 8 10/16/2021 12:40 PM CANOE BUILDER Oxygen Saturation 100% 10/16/2021 12:40 PM CANOE BUILDER Inhaled Oxygen Concentration - - Weight 90.7 kg (200 lb) 10/16/2021 10:29 AM CANOE BUILDER Height 162.6 cm (5' 4 ) 10/16/2021 10:29 AM CANOE BUILDER Body Mass Index 34.33 10/16/2021 10:29 AM CANOE BUILDER Plan of Treatment Not on file Medical Devices Explanted Type Area Vocational Instructor Device Identifier Shelf Expiration Date Model / Serial / Lot Ureteral Stent Explanted:Qty: 1 on 10/16/2021 by Tye Woods MD at [facility] Right: Urethra Other [employer] [id number] Universa 6fr 24cm Radiopaque Positioner Monofilament Tether - [id number] Implanted:Qty: 1 on 10/16/2021 by Tye Woods MD at [facility] Explanted:Qty: 1 on 10/21/2021 by Tye Woods MD Right: Urethra [employer] [id number] 07/22/2024 [id number] / / [id number] Insurance [employer] [facility] [employer] [facility] Care Teams Gluer And Slicer Hand Relationship Specialty Start Date End Date Citlaly Ramos DO [address] [place] [id number] PCP - General Family Medicine 10/03/21
--- OUTSIDE RECORDS SUMMARY | 2024-12-09 05:43 | XMS_ITS | Clinical Summary ---
Author Organization [facility] Address [address] [place] [address] Care Team Providers Care Cut And Cover Line Worker Name Role Phone Non-Staff, Provider Primary [...] 2:19 PM 03/23/2024 6:20 PM Care Teams Cut And Cover Line Worker Relationship Specialty Start Date End Date Non-Staff, Provider PCP - General UNKNOWN PHYSICIAN SPECIALTY 03/23/24
--- OUTSIDE RECORDS SUMMARY | 2024-12-09 05:43 | XMS_ITS | Clinical Summary ---
Author Organization [facility] Address [address] [place] [address] Care Team Providers Care Special Programs Director Name Role Phone Citlaly Ramos DO Primary Care Provider [phone] Allergies Active Allergy Reactions Criticality Noted Date [...] file Legal Sex Female 1:00 AM AIR POLLUTION ENGINEER Gender Identity Not on file Sexual Orientation Not on file Obstetrics History Last Filed Vital Signs Vital Sign Reading Time Taken Comments Blood Pressure 126/86 10/16/2021 12:40 PM AIR POLLUTION ENGINEER Pulse 82 10/16/2021 12:40 PM AIR POLLUTION ENGINEER Temperature 36.7 C (98.1 F) 10/21/2021 1:29 PM AIR POLLUTION ENGINEER Respiratory Rate 8 10/16/2021 12:40 PM AIR POLLUTION ENGINEER Oxygen Saturation 100% 10/16/2021 12:40 PM AIR POLLUTION ENGINEER Inhaled Oxygen Concentration - - Weight 90.7 kg (200 lb) 10/16/2021 10:29 AM AIR POLLUTION ENGINEER Height 162.6 cm (5' 4 ) 10/16/2021 10:29 AM AIR POLLUTION ENGINEER Body Mass Index 34.33 10/16/2021 10:29 AM AIR POLLUTION ENGINEER Plan of Treatment Not on file Medical Devices Explanted Type Area Financial Aid Director Device Identifier Shelf Expiration Date Model / Serial / Lot Ureteral Stent Explanted:Qty: 1 on 10/16/2021 by Tye Woods MD at [facility] Right: Urethra Other [employer] [id number] Universa 6fr 24cm Radiopaque Positioner Monofilament Tether - [id number] Implanted:Qty: 1 on 10/16/2021 by Tye Woods MD at [facility] Explanted:Qty: 1 on 10/21/2021 by Tye Woods MD Right: Urethra [employer] [id number] 07/22/2024 [id number] / / [id number] Insurance [facility] [address] Care Teams Special Programs Director Relationship Specialty Start Date End Date Citlaly Ramos DO [address] [place] [id number] PCP - General Family Medicine 10/03/21
--- OUTSIDE RECORDS SUMMARY | 2024-12-09 05:43 | XMS_ITS | Continuity of Care Document ---
Author Organization [facility] Address [address] [place] [address] Phone Care Team Providers Care Sanding Supervisor Name Role Phone Unavailable Unavailable Unavailable Procedures Procedure Date Extraction erupted tooth or exposed root Limit Oral Evaluation- problem focused J Periapical Radiographic, first Image Feb Advance Directives Directive Yes / No Effective Date File Name No Information Encounters Encounter Description Practice Location Reason(s) For Visit Diagnoses Date Provider Providers [facility] , [address], [place], [place], [id number], tel:[phone] [facility] on pit and fissure surface penetrat into pulp No Information Referring Provider: Ervin Clayton [address], [place], [address]. tel:[phone] Family History Family Member Type Diagnosis Age [...]
[2024-12-09 05:45] LABS: Alanine Aminotransferase 11 U/L (6-35); Alkaline Phosphatase 53 U/L (38-126); Anion Gap 6 mmol/L (4-12); Aspartate Amino Transferase 20 U/L (14-36); Bilirubin,Total 0.3 mg/dL (0.2-1.3); Blood Urea Nitrogen 11 mg/dL (7-17); Calcium 8.7 mg/dL (8.4-10.2); Carbon Dioxide 25 mmol/L (22-30); Chloride 105 mmol/L (98-107); Estimated CRCL calculation 113 ml/min; Estimated Glomerular Filt Rate > 60; Glucose 86 mg/dL (65-110); Lipase 180 U/L (23-300); Potassium 3.8 mmol/L (3.4-5.0); Sodium 136 mmol/L (137-145)
[2024-12-09 06:25] VITALS: BP 126/55; PULSE 76; RESP 15; O2SAT 100
[2024-12-09] MEDS: KETOROLAC 15 MG/ML VIAL (*BKC) IV PUSH (06:52)
== END 2024-12-09 07:07 | disposition home or self-care (01) ==
PROVIDERS: Emergency Provider Student in an Organized Health Care Education/Training Program
DX: N20.0 Calculus of kidney (principal); Q63.1 Lobulated, fused and horseshoe kidney; Z87.442 Personal history of urinary calculi
CPT/HCPCS: 36415; 74176; 80053; 81001; 81025; 83690; 85025; 96361; 96372; 96374; 99284; J0500; J1885; J7120

== ENCOUNTER 2024-12-22 12:35 | Outpatient (CLI) | payer OTHER, SELFPAY ==
--- OUTSIDE RECORDS SUMMARY | 2024-12-22 12:52 | XMS_ITS | Continuity of Care Document ---
Author Organization [facility] Address [address] [place] [address] Phone Care Team Providers Care Regulator Mechanic Name Role Phone Unavailable Unavailable Unavailable Procedures Procedure Date Extraction erupted tooth or exposed root Limit Oral Evaluation- problem focused J Periapical Radiographic, first Image Feb Advance Directives Directive Yes / No Effective Date File Name No Information Encounters Encounter Description Practice Location Reason(s) For Visit Diagnoses Date Provider Providers Copied on Encounter [employer] [facility] , [address], [place], [place], [id number], tel:[phone] [facility] caries on pit and fissure surface penetrat into pulp No Information Referring Provider: Ervin Clayton [address], [place], [address]. tel:[phone] Family History Family Member Type Diagnosis Age At Onset No Information Payers Payer name Insurance type Covered alliance party ID Authoriza tion(s) No Information Social [...]
--- OUTSIDE RECORDS SUMMARY | 2024-12-22 12:52 | XMS_ITS | Clinical Summary ---
Author Organization [facility] Address [address] [facility] [place] [address] Care Team Providers Care Press Tender Incendiary Grenade Name Role Phone TheresaAnkita modiron GUZMAN Primary Care Provider [phone] Miller Zamora MD Unavailable [phone] Darryl Starr DO Unavailable Source Comments [facility],non-owned Affiliates and Associated Physician Practices is amultiple site organization consisting of ambulatory clinics and hospital sitesin [place], [place], [place] and [place]. This disclosure is being madepursuant to the Care Everywhere program and may not contain all information available regarding this patient. Last updated 18.[facility] Allergies Active Allergy Reactions Criticality Noted Date Comments Augmentin Urticaria Medium 09/04/2013 Hydrocodone Rash Medium 07/04/2021 Hydrocodone-Acetaminophen Urticaria Medium 02/02/2019 Medications * Be aware that medications may not be up to date on this document. Alwaysverify current medications with the patient. ibuprofen (MOTRIN) 600 MG tablet Take 1 tablet by mouth every 6 hours as needed for Pain 30 tablet 9 Active triamcinolone acetonide (KENALOG) 0.5 % ointmentIndicati ons:Eczema, unspecified type Apply to affected area 2 times daily as needed 15 g 1 1 Active ferrous sulfate 325 (65 FE) MG tablet Take 1 (one) tablet by mouth daily with breakfast 1 Active metroNIDAZOLE (FLAGYL) 500 MG tablet Take 1 (one) tablet by mouth 2 times daily 14 tablet 1 Active oxyCODONE-acetam inophen (PERCOCET) 7.5-325 MG tablet Take 1 (one) tablet by mouth every 6 hours as needed for Pain 20 tablet 2 Active escitalopram (LEXAPRO) 10 MG tabletIndication s:Depression with anxiety Take 1 (one) tablet by mouth once daily 90 tablet 2 Active traZODone (DESYREL) 50 MG tabletIndication s:Depression with anxiety Take 1 (one) tablet by mouth nightly as needed for Insomnia 30 tablet 2 Active Active Problems Problem Noted Date Diagnosed Date Nephrolithiasis 11/24/2020 GBS (group B streptococcus) UTI complicating pre gnancy 08/07/2014 Immunizations Immunization Administration Dates Next Due INFLUENZA VACCINE, TRIV. [...] Date Recorded PHQ2 TOTAL SCORE 6 07/04/2021 Comments No Sex and Gender Information Value Date Recorded Sex Assigned at Not on file Legal Sex Female 5:37 AM MANAGER GRAPHIC Gender Identity Not on file Sexual Orientation Not on file Last Filed Vital Signs Vital Sign Reading Time Taken Comments Blood Pressure 128/84 09/24/2021 2:07 PM MANAGER GRAPHIC Pulse 93 09/24/2021 2:07 PM MANAGER GRAPHIC Temperature 37.2 C (98.9 F) 09/24/2021 2:07 PM MANAGER GRAPHIC Respiratory Rate 18 09/24/2021 2:07 PM MANAGER GRAPHIC Oxygen Saturation 99% 09/24/2021 2:07 PM MANAGER GRAPHIC Inhaled Oxygen Concentration 98% 11/25/2020 4 :20 PM CDT Weight 86.2 kg (190 lb) 09/24/2021 2:07 PM MANAGER GRAPHIC Height 162.6 cm (5' 4 ) 09/24/2021 2:07 PM MANAGER GRAPHIC Body Mass Index 32.61 09/24/2021 2:07 PM MANAGER GRAPHIC Plan of Treatment Health Maintenance Due Date [...] this topic Medical Devices Implanted Type Area Medical Accounting Clerk Device Identifier Shelf Expiration Date Model / Serial / Lot Stent Uret 6fr 24cm Pgtl Crv Tpr Tip - [id number] Implanted:Qty: 1 on 01/14/2021 by Miller Zamora MD at [facility] Stent Right: Ureter [place] [employer] 09/19/2023 [id number] / [id number] Stent Uret 6fr 24cm 2 Drmtr Bldr Loop Implanted:Qty: 1 on 11/25/2020 by Miller Zamora MD at [facility] Right: Ureter [place] [employer]ed 01/08/2023 [id number] / / Procedures Procedure Name Priority Date/Time Associated Diagnosis Comments PAP IG LB RFLX HPV APTIMA ASCU Routine 07/01/2021 4:04 PM CDT Well woman exam from Last 3 Months or Most Recently Relevant to Health Maintenance Results * PAP IG LB RFLX HPV APTIMA ASCU (07/01/2021 4:04 PM CDT) Diagnosis [facility] INSURANCE BILL Comment: NEGATIVE FOR INTRAEPITHELIAL LESION OR MALIGNANCY. TRICHOMONAS VAGINALIS IS PRESENT. Specimen Adequacy [facility] INSURANCE BILL Comment: Satisfactory for evaluation. Endocervical and/or squamous metaplastic cells (endocervical component) are present. Clinician Provided ICD10 [facility] INSURANCE BILL Comment: Z01.419 N20.0 N76.1 Performed by [employer] INSURANCE BILL Comment:Libby montgomery, Powder Nipper (ASCP) Comment . [facility] INSURANCE BILL Note [facility] INSURANCE BILL Comment: The Pap smear is [...] use of an image guided system. Note [facility] INSURANCE BILL Comment: The HPV DNA reflex criteria were not met with this specimen result therefore, no HPV testing was performed. . Pathology/Cytolog y PART OF UTERINE CERVIX / Unknown 07/01/2021 4:04 PM CDT 07/02/2021 Narrative [facility] INSURANCE BILL - 07/03/2021 5:08 PM CDT No. of containers..01 ThinPrep Vial Resulting Agency Comment Lab Testing performed at: [facility] Kenneth VAZQUEZ [id number] Javilaurasheila Starr DO LAB - PATHOLOGY/CYTOLOGY ORDERAB LES Final Result [facility] INSURANCE BILL [address] [place] [address] from Last 3 Months or Most Recently Relevant to Health Maintenance Insurance MEDICAID - OUT OF STATE Advance Directives * Full Code (Latest Code Status on File) Date Activated Date Inactivated Comments 10/20/2015 9:32 AM 10/20/2015 9:32 AM Care Teams Press Tender Incendiary Grenade Relationship Specialty Start Date End Date Citlaly Ramos DO PCP - General Family Medicine 02/21/21 Miller Zamora MD [address] [id number] Urology 02/21/21 Darryl Starr DO [address] [facility] [place] [facility] [place] [address] Obstetrics and Gynecology 07/04/21
--- OUTSIDE RECORDS SUMMARY | 2024-12-22 12:52 | XMS_ITS | Clinical Summary ---
Author Organization [facility] Address [address] [place] [id number] Care Team Providers Care Receiving Lead Name Role Phone Citlaly Ramos DO Primary Care Provider [phone] Allergies Active Allergy Reactions Criticality Noted Date [...] file Legal Sex Female 1:00 AM OFFICE EXECUTIVE Gender Identity Not on file Sexual Orientation Not on file Obstetrics History Last Filed Vital Signs Vital Sign Reading Time Taken Comments Blood Pressure 126/86 10/16/2021 12:40 PM OFFICE EXECUTIVE Pulse 82 10/16/2021 12:40 PM OFFICE EXECUTIVE Temperature 36.7 C (98.1 F) 10/21/2021 1:29 PM OFFICE EXECUTIVE Respiratory Rate 8 10/16/2021 12:40 PM OFFICE EXECUTIVE Oxygen Saturation 100% 10/16/2021 12:40 PM OFFICE EXECUTIVE Inhaled Oxygen Concentration - - Weight 90.7 kg (200 lb) 10/16/2021 10:29 AM OFFICE EXECUTIVE Height 162.6 cm (5' 4 ) 10/16/2021 10:29 AM OFFICE EXECUTIVE Body Mass Index 34.33 10/16/2021 10:29 AM OFFICE EXECUTIVE Plan of Treatment Not on file Medical Devices Explanted Type Area Firmware Developer Device Identifier Shelf Expiration Date Model / Serial / Lot Ureteral Stent Explanted:Qty: 1 on 10/16/2021 by Tye Woods MD at [facility] Right: Urethra Other [employer] [id number] Universa 6fr 24cm Radiopaque Positioner Monofilament Tether - [id number] Implanted:Qty: 1 on 10/16/2021 by Tye Woods MD at [facility] Explanted:Qty: 1 on 10/21/2021 by Tye Woods MD Right: Urethra [employer] [id number] 07/22/2024 [id number] / / [id number] Insurance [facility] [place] [address] Care Teams Receiving Lead Relationship Specialty Start Date End Date Citlaly Ramos DO [address] [place] [id number] PCP - General Family Medicine 10/03/21
--- OUTSIDE RECORDS SUMMARY | 2024-12-22 12:52 | XMS_ITS | Referral Summary ---
Author Organization [facility] Address [address] [place] [address] Care Team Providers Care Residence Counselor Name Role Phone Citlaly Ramos DO Primary Care Provider [phone] Allergies Active Allergy Reactions Criticality Noted Date [...] on file Legal Sex Female 1:00 AM WIRING TECHNICIAN Gender Identity Not on file Sexual Orientation Not on file Last Filed Vital Signs Vital Sign Reading Time Taken Comments Blood Pressure 126/86 10/16/2021 12:40 PM WIRING TECHNICIAN Pulse 82 10/16/2021 12:40 PM WIRING TECHNICIAN Temperature 36.7 C (98.1 F) 10/21/2021 1:29 PM WIRING TECHNICIAN Respiratory Rate 8 10/16/2021 12:40 PM WIRING TECHNICIAN Oxygen Saturation 100% 10/16/2021 12:40 PM WIRING TECHNICIAN Inhaled Oxygen Concentration - - Weight 90.7 kg (200 lb) 10/16/2021 10:29 AM WIRING TECHNICIAN Height 162.6 cm (5' 4 ) 10/16/2021 10:29 AM WIRING TECHNICIAN Body Mass Index 34.33 10/16/2021 10:29 AM WIRING TECHNICIAN Plan of Treatment Not on file Medical Devices Explanted Type Area Steam Fitter Device Identifier Shelf Expiration Date Model / Serial / Lot Ureteral Stent Explanted:Qty: 1 on 10/16/2021 by Tye Woods MD at [facility] Right: Urethra Other [employer] [id number] Universa 6fr 24cm Radiopaque Positioner Monofilament Tether - [id number] Implanted:Qty: 1 on 10/16/2021 by Tye Woods MD at [facility] Explanted:Qty: 1 on 10/21/2021 by Tye Woods MD Right: Urethra [employer] [id number] 07/22/2024 [id number] / / [id number] Insurance [facility] [facility] [employer] [facility] [facility] Care Teams Residence Counselor Relationship Specialty Start Date End Date Citlaly Ramos DO [address] [place] [id number] PCP - General Family Medicine 10/03/21
--- OUTSIDE RECORDS SUMMARY | 2024-12-22 12:52 | XMS_ITS | Data Portability ---
Author Organization [facility] Address [address] [place] [address] Assessment Encounter Date Assessment Date Assessment LastModified [...] quantitativ e, serum or plasma 2023 024 [facility], [address] [place], [address], 4 12:38:49 CBC w/ auto diff 2023 024 [facility], [address] [place], [address], 4 02:21:20 beta-HCG, quantitativ e, serum or plasma 2023 024 [facility], [address] [place], [address], 4 17:21:41 CBC w/ auto diff 2023 024 [facility], [address] [place], [address], 4 18:36:13 test, urine 2023 024 [facility], [address] [place], [address], 4 19:59:13 Referral None recorded. Procedures None recorded. Surgeries None recorded. Imaging None recorded. Medication Orders escitalopra m 10 mg tablet 2024 025 [facility] #[id number], [address], [place], [address], 5 11:49:50 hydroxyzine HCl 25 mg tablet 2024 025 [facility] #[id number], [address], [place], [address], 5 11:49:50 doxycycline hyclate 100 mg capsule 2023 025 [facility] #[id number], [address], [place], [address], 15:16:43 naproxen 500 mg tablet 2023 025 [facility] #[id number], [address], [place], [address], 15:17:14 Patient TargetsNo targets recorded. Patient Instructions Encounter Date Encounter Id Patient Instructions Last Modified By Organization Details Last Modified Time 03/11/2024 [id number] IUD removal: car e instructions Not available 03/11/2024 16:04:05 11/18/2024 [id number] body mass index: care instructions Not available 11/18/2024 15:48:36 learning about depression screening Not available 11/18/2024 15:48:36 A healthy lifestyle: care instructions Not available 11/18/2024 15:48:37 substance use disorder: care instructions Not available 11/18/2024 15:48:36 tobacco cessation Not availabl e 11/18/2024 15:48:36 11/26/2024 [id number] AVERY-7 anxiety scale* DIRK Not available 12/07/2024 [...] and/u L 3.8-10 .8 normal Not Available [facility] [address], [address], 06/08/2024 02:21:17 06/08/2006/08/2024 CBC (INCL UDES DIFF/ PLT) red blood cell count 4.47 sada on/uL 3.80-5 .10 normal Not Available [address], [address], 06/08/2024 02:21:17 06/08/20 24 06/08/2024 CBC (INCL UDES DIFF/ PLT) hemoglobin 10.8 g/dL 11.7-1 5.5 low Not Available [address], [address], 06/08/2024 02:21:17 06/08/2006/08/2024 CBC (INCL UDES DIFF/ PLT) hematocrit 36.8 % 35.0-4 5.0 normal Not Available [facility] [address], [address], 06/08/2024 02:21:17 06/08/2006/08/2024 CBC (INCL UDES DIFF/ PLT) MCV 82.3 fL 80.0-1 00.0 normal Not Available [facility] [address], [address], 06/08/2024 02:21:17 06/08/20 24 06/08/2024 CBC (INCL UDES DIFF/ PLT) MCH 24.2 pg 27.0-3 3.0 low Not Available [address], [address], 06/08/2024 02:21:17 06/08/20 24 06/08/2024 CBC (INCL UDES DIFF/ PLT) MCHC 29.3 g/dL 32.0-3 6.0 low For adult s, a sligh t decre ase in the calcu lated MCHC value (in the range of 30 to 32 g/dL) is most likel y not clini shira signi fican t; chio er, it shoul d be inter prete d with cauti on in [facility] lat n with other red cell esdras eters and the patie nt's clini ricardo condi tion. Not Available [address], [address], 06/08/2024 02:21:17 06/08/20 24 06/08/2024 CBC (INCL UDES DIFF/ PLT) RDW 17.1 % 11.0-1 5.0 high Not Available [address], [address], 06/08/2024 02:21:17 06/08/20 24 06/08/2024 CBC (INCL UDES DIFF/ PLT) platelet count 438 thous and/u L 140-40 0 high Not Available [address], [address], 06/08/2024 02:21:17 06/08/20 24 06/08/2024 CBC (INCL UDES DIFF/ PLT) MPV 10.1 fL 7.5-12 .5 normal Not Available [address], [address], 06/08/2024 02:21:17 06/08/20 24 06/08/2024 CBC (INCL UDES DIFF/ PLT) absolute neutrophils 2754 cells /uL 1500-7 800 normal Not Available [address], [address], 06/08/2024 02:21:17 06/08/20 24 06/08/2024 CBC (INCL UDES DIFF/ PLT) absolute lymphocytes 2040 cells /uL 850-39 00 normal Not Available [address], [address], 06/08/2024 02:21:17 06/08/20 24 06/08/2024 CBC (INCL UDES DIFF/ PLT) absolute monocytes 708 cells /uL 200-95 0 normal Not Available [address], [address], 06/08/2024 02:21:17 06/08/20 24 06/08/2024 CBC (INCL UDES DIFF/ PLT) absolute eosinophils 420 cells /uL 15-500 normal Not Available [address], [address], 06/08/2024 02:21:17 06/08/20 24 06/08/2024 CBC (INCL UDES DIFF/ PLT) absolute basophils 78 cells /uL 0-200 normal Not Available [address], [address], 06/08/2024 02:21:17 06/08/20 24 06/08/2024 CBC (INCL UDES DIFF/ PLT) neutrophils 45.9 % normal Not Available [address], [address], 06/08/2024 02:21:17 06/08/20 24 06/08/2024 CBC (INCL UDES DIFF/ PLT) lymphocytes 34.0 % normal Not Available [address], [address], 06/08/2024 02:21:17 06/08/20 24 06/08/2024 CBC (INCL UDES DIFF/ PLT) monocytes 11.8 % normal Not Available [facility] [address] [address] [place], [address], 06/08/2024 02:21:17 06/08/20 24 06/08/2024 CBC (INCL UDES DIFF/ PLT) eosinophils 7.0 % normal Not Available [facility] [address] [place], [address], 06/08/2024 02:21:17 06/08/20 24 06/08/2024 CBC (INCL UDES DIFF/ PLT) basophils 1.3 % normal Not Available [facility] [address] [address] [place], [address], 06/08/2024 02:21:17 03/23/20 24 03/23/2024 CBC WITH DIFF WBC 6.51 x10'3 /uL 4.5-11 .0 Not Available [facility] (Lab) [place], [address], 03/23/2024 11:03:32 03/23/20 24 03/23/2024 CBC WITH DIFF RBC 4.34 x10'6 /uL 4.20-5 .40 Not Available [facility] (Lab) [place], [address], 03/23/2024 11:03:32 03/23/20 24 03/23/2024 CBC WITH DIFF hemoglobin 10.5 g/dL 12.0-1 6.0 low Not Available [facility] (Lab) [address] [place], [address], 03/23/2024 11:03:32 03/23/20 24 03/23/2024 CBC WITH DIFF hematocrit 33.3 % 38.0-4 8.0 low Not Available [facility] (Lab) [place], [address], 03/23/2024 11:03:32 03/23/20 24 03/23/2024 CBC WITH DIFF MCV 76.7 fL 81.0-9 9.0 low Not Available [facility] (Lab) [address], [place], [address], 03/23/2024 11:03:32 03/23/20 24 03/23/2024 CBC WITH DIFF MCH 24.2 pg 27.0-3 1.0 low Not Available [facility] (Lab) [address], [place], [address], 03/23/2024 11:03:32 03/23/20 24 03/23/2024 CBC WITH DIFF MCHC 31.5 g/dL 32.0-3 6.0 low Not Available [facility] (Lab) [address], [place], [address], 03/23/2024 11:03:32 03/23/20 24 03/23/2024 CBC WITH DIFF RDW 17.7 % 11.5-1 4.5 high Not Available [facility] (Lab) [address], [place], [address], 03/23/2024 11:03:32 03/23/20 24 03/23/2024 CBC WITH DIFF platelet count 453 x10'3 /uL 130-40 0 high Not Available [facility] (Lab) [address], [place], [address], 03/23/2024 11:03:32 03/23/20 24 03/23/2024 CBC WITH DIFF MPV 9.0 fL 9.3-12 .2 low Not Available [facility] (Lab) [address], [place], [address], 03/23/2024 11:03:32 03/23/20 24 03/23/2024 CBC WITH DIFF diff type AUTOMA MERNA DIFFER ENTIAL Not Available [facility] (Lab) [address], [place], [address], 03/23/2024 11:03:32 03/23/20 24 03/23/2024 CBC WITH DIFF neutrophils 58.3 % Not Available [facility] (Lab) [address], [place], [address], 03/23/2024 11:03:32 03/23/20 24 03/23/2024 CBC WITH DIFF lymphocytes 26.3 % Not Available [facility] (Lab) [address], [place], [address], 03/23/2024 11:03:32 03/23/20 24 03/23/2024 CBC WITH DIFF monocytes 9.8 % Not Available [facility] (Lab) [address], [place], [address], 03/23/2024 11:03:32 03/23/20 24 03/23/2024 CBC WITH DIFF eosinophils 4.3 % Not Available [facility] (Lab) [address], [place], [address], 03/23/2024 11:03:32 03/23/20 24 03/23/2024 CBC WITH DIFF basophils 0.8 % Not Available [facility] (Lab) [address], [place], [address], 03/23/2024 11:03:32 03/23/20 24 03/23/2024 CBC WITH DIFF immature granulocytes 0.5 % Not Available [facility] (Lab) [address], [place], [address], 03/23/2024 11:03:32 03/23/20 24 03/23/2024 CBC WITH DIFF abs. neutrophils 3.80 x10'3 /uL 1.80-7 .70 Not Available [facility] (Lab) [address] [facility], [place], [address], 03/23/2024 11:03:32 03/23/20 24 03/23/2024 CBC WITH DIFF abs. lymphocytes 1.71 x10'3 /uL 1.00-4 .80 Not Available [facility] (Lab) [place], [address], 03/23/2024 11:03:32 03/23/20 24 03/23/2024 CBC WITH DIFF abs. monocytes 0.64 x10'3 /uL 0.24-0 .86 Not Available [facility] (Lab) [address], [place], [address], 03/23/2024 11:03:32 03/23/20 24 03/23/2024 CBC WITH DIFF abs. eosinophils 0.28 x10'3 /uL 0.04-0 .36 Not Available [facility] (Lab) [place], [address], 03/23/2024 11:03:32 03/23/20 24 03/23/2024 CBC WITH DIFF abs. basophils 0.05 x10'3 /uL 0.01-0 .08 Not Available [facility] (Lab) [place], [address], 03/23/2024 11:03:32 03/23/20 24 03/23/2024 CBC WITH DIFF abs. immature grans 0.03 x10'3 /uL 0.00-0 .49 Not Available [facility] (Lab) [place], [address], 03/23/2024 11:03:32 03/23/20 24 03/25/2024 SJS SURGI RICARDO PATHO LOGY path report [facility] Depar tment of Labor atory Medic ine [address] [facility] [address] [facility] [place] [address] Telep merary: , exten osito 07 Patho logy Repor t Surgi ricardo Patho logy Repor t Name: BRANDON ALEXANDER, DATRE ION L Speci men #: [id number] Age: [id number] (Age: 34) Locat ion: [place] Sex: F Proce dure Date: 2023 Hospi [facility] #: [id number] Date Recei laith: 2023 Date Repor merna: 2023 Provi james: PATEL Day MD [facility] e: Vagin al cyst Clini ricardo [...] and sign out were perfo rmed at [facility], [address] [facility] [address], [facility] [place] [address] . FINAL DIAGN OSIS: Vagin a, cyst, excis ion: -Jarod gn Mulle diomedes cyst with focal squam ous metap lasia . Lisa ctron icall y Coral d Out KHANH Nice MD [id number] [phone] Not Available [facility] (Lab) [address] [facility], [place], [address], 03/25/2024 11:22:21 05/31/20 24 06/01/2024 CBC (INCL UDES DIFF/ PLT) WBC 7.4 thous and/u L 4.0 - 9.8 normal Not Available [facility] [address] [place] [address], [address], 06/01/2024 18:36:13 05/31/2006/01/2024 CBC (INCL UDES DIFF/ PLT) RBC 4.2 sada on/uL 3.9 - 4.9 normal Not Available [facility] [address] [place] [address], [address], 06/01/2024 18:36:13 05/31/2006/01/2024 CBC (INCL UDES DIFF/ PLT) hemoglobin 10.2 g/dL 11.8 - 14.8 low Not Available [facility] [address] [place] [address], [address], 06/01/2024 18:36:13 05/31/20 24 06/01/2024 CBC (INCL UDES DIFF/ PLT) hematocrit 31.9 % 35.5 - 44.0 low Not Available [facility] [address] [place] [address], [address], 06/01/2024 18:36:13 05/31/2006/01/2024 CBC (INCL UDES DIFF/ PLT) MCV 75.2 fL 82.0 - 99.0 low Not Available [facility] [address] [place] [address], [address], 06/01/2024 18:36:13 05/31/2006/01/2024 CBC (INCL UDES DIFF/ PLT) MCH 24.1 pg 27.2 - 32.6 low Not [place], [address], 06/01/2024 18:36:13 05/31/20 24 06/01/2024 CBC (INCL UDES DIFF/ PLT) MCHC 32.0 g/dL 31.5 - 35.5 normal Not Available [address], [address], 06/01/2024 18:36:13 05/31/2006/01/2024 CBC (INCL UDES DIFF/ PLT) RDW-CV 18.7 % 11.5 - 14.5 high Not Available [address], [address], 06/01/2024 18:36:13 05/31/2006/01/2024 CBC (INCL UDES DIFF/ PLT) platelet 427 thous and/u L 140 - 350 high Not Available [address], [address], 06/01/2024 18:36:13 05/31/2006/01/2024 CBC (INCL UDES DIFF/ PLT) MPV 10.5 fL 9.3 - 12.4 normal Not Available [address], [address], 06/01/2024 18:36:13 05/31/2006/01/2024 CBC (INCL UDES DIFF/ PLT) absolute neutrophil 3.62 thous and/u L 1.90 - 7.00 normal Not Available [address], [address], 06/01/2024 18:36:13 05/31/2006/01/2024 CBC (INCL UDES DIFF/ PLT) absolute lymphocyte 2.53 thous and/u L 0.70 - 4.50 normal Not Available [address], [address], 06/01/2024 18:36:13 05/31/2006/01/2024 CBC (INCL UDES DIFF/ PLT) absolute monocyte 0.83 thous and/u L 0.10 - 1.30 normal Not Available [address], [address], 06/01/2024 18:36:13 05/31/20 24 06/01/2024 CBC (INCL UDES DIFF/ PLT) absolute eosinophil 0.32 thous and/u L <0.70 normal Not Available [address], [address], 06/01/2024 18:36:13 05/31/20 24 06/01/2024 CBC (INCL UDES DIFF/ PLT) absolute basophil 0.05 thous and/u L <0.20 normal Not Available [address], [address], 06/01/2024 18:36:13 05/31/20 24 06/01/2024 CBC (INCL UDES DIFF/ PLT) absolute immature granulocyte 0.03 thous and/u L <0.03 normal Not Available [address], [address], 06/01/2024 18:36:13 05/31/20 24 06/02/2024 HCG, TOTAL [...] has not been valid ated by the [facility] actur er of this assay . Not Available [address], [address], 06/02/2024 17:21:41 05/31/20 24 05/31/2024 pregn janet test, urine HCG positi ve Not Available [facility] [address] [facility], [place], [address], 05/31/2024 09:27:00 06/07/20 24 06/09/2024 HCG, TOTAL [...] er of this assay . Not Available [facility] [address] [place], [address], 06/09/2024 12:38:49 Result Notes None recorded. Problems Name Problem SNOMED Code Status Onset Date Resolution Date Notes Provider Name and Address Organization Details Recorded Time Generalized anxiety disorder 39528908 Active 2024 SHOSHANA Mcfarland [address] [place] [address], [address], [facility] [employer] IV 5 11:45:39 Panic attack 632051314 Active 2024 Kris Rodrigues MARIANA [address] [place] [address], [address], [employer] [facility] 5 11:45:50 Depressive disorder 23391815 Active 2024 Kris Rodrigues [address], [address], [facility] [employer] IV 5 11:46:05 Disturbance in sleep behavior 05225604 Active 2024 SHOSHANA Mcfarland [address] [place] [address], [address], [facility] [employer] IV 5 11:46:19 Persistent depressive disorder 0972498808 Active 2024 Kris Rodrigues MARIANA [address] [place] [address], [address], [facility] [employer] IV 5 11:46:50 Problem Notes None recorded. Procedures Surgical History Date Name Laterality Status Provider Name and Address Organization Details Recorded Time 024 Suture/Staple removal cancelled Susana Hillman [facility] 04/08/2024 12:14:07 024 removal of intrauterine contraceptive device completed Jennifer Tory [facility] 05/31/2024 09:19:41 024 IUD Removal completed DIANE BRITO, [facility] [address] [place], [address], [facility] 03/11/2024 16:02:14 023 Date of Last Pap Smear completed Candice Givens, [facility] [address] [place], [address], [facility] [employer] [facility] IV 11/06/2024 19:54:47 Imaging Results None recorded. Procedure Notes None recorded. Medical Equipment None Reported. Allergies Allergen ID Allergen Name Allergen Category Reaction Reaction Severity Criticality Documentation Date Start Date Code Code System Note Provider Name and Address Organization Details Recorded Time 711092 Product containin g penicilli n (product) medicatio n Not available Not available Not available 02/09/2023 92393 8001 SNOMED Not Available Not Available Not Available 291174 house dust allergeni c extract environme nt,medica tion Not available Not available Not available 02/09/2023 69189 9 RxNorm Not Available Not Available Not Available 060648 cat dander environme nt Not available Not available Not available 02/09/2023 03955 UNK Not Available Not Available Not Available 811106 Canis lupus familiari s extract environme nt Not available Not available Not available 02/09/2023 57569 4 RxNorm Not Available Not Available Not Available 403422 mold extract environme nt Not available Not available Not available 02/09/2023 58046 8 RxNorm Not Available Not Available Not Available 288972 Augmentin medicatio n Not available Not available Not available 03/11/2024 18395 2 RxNorm Not Available Not Available Not [...] Address Organization Details Last Updated DateTime 03/11/2024 39859.9 6 g 32.4 kg/m2 162.56 cm 100 mm[Hg] 72 mm[Hg] Jennifer Spears [employer] [facility] 4 15:35:27 Date Recorded Body height Body mass index (BMI) Body weight Systolic blood pressure Diastolic blood pressure Provider Name and Address Organization Details Last Updated DateTime 05/31/2024 162.56 cm 33.1 kg/m2 81209.3 3 g 106 mm[Hg] 54 mm[Hg] Jennifer Spears [employer] [facility] 4 09:26:43 Date Recorded Body height Body mass index (BMI) Body weight Systolic blood pressure Diastolic blood pressure Provider Name and Address Organization Details Last Updated DateTime 06/06/2024 162.56 cm 32.8 kg/m2 42178.14 g 120 mm[Hg] 60 mm[Hg] Kaylee Carpio [employer] [facility] 4 15:58:43 Date Recorded Body height Body mass index (BMI) Body weight Systolic blood pressure Diastolic blood pressure Provider Name and Address Organization Details Last Updated DateTime 11/18/2024 162.56 cm 31.7 kg/m2 72257.15 g 110 mm[Hg] 68 mm[Hg] Camlia Strauss [employer] [facility] 15:15:53 Social History Question Answer Notes LastModified by Organizat ion Details LastModified Time Tobacco Smoking Status Former Smoker Laura Ca ellis, [employer] [facility] 02/09/2023 11:51:45 What Is Your Level Of Alcohol Consumption? Occasional [email or web address] Information not available 02/09/2023 How Many Years Have You Consumed Alcohol? 7 [email or web address] Information not available 02/09/2023 Are You Blind Or Do You Have Difficulty Seeing? No Information not available 03/11/2024 Are You Currently Employed? Yes [email or web address] Information not available 11/18/2024 Are You Deaf Or Do You Have Serious Difficulty Hearing? No Information not available 03/11/2024 What Type Of Diet Are You Following? REGULAR [email or web address] Information not available 02/09/2023 Do You Or Have You Ever Used E-cigarettes Or Vape? Current User Of Electronic Cigarettes [email or web address] Information not available 02/09/2023 When Did You Quit Smoking? 6-10yearssince lastcigarette Information not available 11/18/2024 How Many Children Do You Have? 2 Information not available 03/11/2024 Are There Any Occupational Health Risks Where You Work? No [email or web address] Information not available 11/18/2024 What Is Your Relationship Status? Single [email or web address] Information not available 02/09/2023 Are You Sexually Active? Yes [email or web address] Information not available 02/09/2023 At What Age Did You Start Smoking Tobacco? 25 [email or web address] Information not available 11/18/2024 How Much Tobacco Do You Smoke? No [email or web address] Information not available 11/18/2024 Do You Use Any Illicit Or Recreational Drugs? No Information not available 03/11/2024 How Many Years Have You Smoked Tobacco? 3 Information not available 11/18/2024 Sex: Unknown Functional Status Question Answer Note LastModified by Organizat ion Details LastModified Time What is your exercise level? Occasional Information not available 02/09/2023 Mental Status None recorded. Family History Relationship Description Onset Age of this Age Resolved Age Notes LastModified by Organization Details LastModified Time Mother Depressive disorder [email or web address] Not available 2022 11:51:36 Mother Hypertensive disorder [email or web address] Not available 2022 11:51:36 Maternal Grandmother Depressive disorder [email or web address] Not available 2022 11:51:36 Maternal Grandmother Hypertensive disorder [email or web address] Not available 2022 11:51:36 Medical History Condition Response Other Cancer N High Blood Pressure N Colon Cancer N Cytomegalovirus N Hyperthyroidism N Breast Cancer N Herpes (HSV) N Blood Transfusion N MRSA N Lung Cancer N Hypothyroidism N Depression N Incontinence N Panic Attacks N Neurological Disorder N Deep Vein Thrombosis N Anxiety Disorder N Autoimmune disease N Arthritis N Tuberculosis/Positive PPD N Shingles N Polycystic Ovarian Syndrome N Infertility N Cervical Cancer N Chlamydia N Hematuria N Stroke N Varicosities N Crohn's Disease N Seasonal allergies N Alzheimer's/Dementia N COPD/Emphysema N HPV/Genital Warts N Endometriosis N IBS (Irritable Bowel Syndrome) N History of Abnormal Pap N High Cholesterol N Liver Disease N Kidney Infection N Fibromyalgia N Ulcer N Kidney Disease N HIV N Gallbladder disease N Sickle Cell Disease/Trait N Von Willebrand disease N ADD/ADHD N Eating Disorder N Anemia N Diabetes Mellitus (non-insulin dependent ) N Ovarian Problems N Multiple Sclerosis N Gonorrhea N Frequent Urinary Tract infections N Osteopenia N Headaches/migraines N GERD (reflux) N Ovarian Cancer N Diabetes (insulin dependent) N Seizures/Epilepsy N Breast Problems N Fibroids N Heart Attack N Asthma N Lupus N Endometrial Cancer N Rubella [...] SNOMED-CT Code Diagnosis ICD10 Code Diagnosis Note [id number] SHOSHANA Westbrook [facility] [address] [place] [address] 02/09/2023 11:46:23 02/10/2023 08:58:56 Gynecologic examination 34094843 Z01.411 Pt educated on ACOG and ASCCP guidelines for breast, ovarian, and cervical cancer screenings . Exam WNL. Pt signed records release for prior [facility] records. Pt offered referral to PCP; pt declines. Pt encouraged to consider referral to PCP by 37 y/o d/t fam h/o CHTN. Plan for F/U PRN or for next WWE. Screening for malignant neoplasm of cervix 368240759 Z12.4 ASCCP guidelines reviewed with pt. Pap collected and sent. Further POC pending lab result review. Pt states understand ing of POC. Depression screening 171 084491 Z13.31 PHQ9: 17. Pt educated on abnormal [...] POC. Mixed anxi ety and depressive disorder 699871547 F41.8 GAD7: 19. Pt offered non-pharma cologic [...] ing of POC. Venereal d isease screening 892876979 Z11.3 Pt educated on importance of condom use for protection against STD's. Samples collected and sent. Further POC pending lab result review. Pt states understand ing of POC. Intrauteri ne device check 453444870 Z30.431 Pt educated on risks Vs benefits of use, reviewed symptoms of Paragard use. Dosing schedule reviewed. Pt educated on bleeding profile of device, expulsion sx, and when to notify HCP/go to ER. Plan to F/U PRN or at next WWE. [id number] PABLO HESS [address] [address] 03/11/2024 15:00:59 03/14/2024 09:28:22 Removal of intrauterine contraceptive device 7588357706 Z30.432 Pt is here for Paragard IUD [...] at this time or once IUD removed. [id number] PABLO HESS [facility] [address] [place] [address] 05/31/2024 08:59:05 05/31/2024 18:39:11 Unprotected sexual intercourse 8488957 Z72.51 +UPT in office today 05/31/2024 Threatened miscarriage 88647418 O20.0 LMP 05/06/[address] patientSta rted spotting [...] answered. Additional patient care was coordinate issa. [id number] SINA [address] [address] 06/06/2024 15:21:46 06/07/2024 12:51:15 Missed miscarriage 55974817 O02.1 Quant level on 05/31 was 31, [...] with antibiotic s to RTC for TVUS. [id number] PABLO HESS [address] [address] 11/18/2024 15:08:30 11/18/2024 16:05:19 Gynecologic examination [id number] Z01.419 Screening for malignant neoplasm of cervix [id number] Z12.4 ASCCP guidelines reviewed with patient. No pap collected today. Pt states understand ing and is amenable to POC. Depression screening 171 [id number] Z13.31 PHQ9: 19. Pt educated on abnormal scoring, and discussed recommenda tion for referral to psych for further management . [facility] [place] and then they dropped her saying they were out of network. Patient would like to see Kris also offered to refer to mental health ARTIST CONSULTANT in network with her insurance. Patient denies any thoughts of self harm. Advised if thoughts arise to seek care immediatel y. Pt voices understand ing and agreeable to POC. [id number] SHOSHANA Mcfarland [address] [address] 11/26/2024 10:30:36 11/28/2024 10:48:13 Generalized anxiety disorder [id number] F41.1 Initiating escitalopr am as the patient reports having done well on it before and the medication is FDA-approv ed for AVERY and MDD. Off-label it is used for panic. Escitalopr am increases serotonin levels in the brain, which helps regulate mood and reduce anxiety.It is well-jamil ated with minimal drug interactio ns. Panic attack [id number] F 41.0 Disturbanc e in sleep behavior [id number] G47.9 Hydroxyzin e, a first-gene ration antihistam ine with sedative and anxiolytic properties , is used for anxiety and sleep issues.Typ ical dosing is 25 50 mg PRN for anxiety or at bedtime for sleepSide effects include drowsiness , dry mouth, and dizziness. Persistent depressive disorder [id number] F34.[address] [facility] screening [id number] Z13.30 PHQ-9 score: 21GAD-7 score: 21 Health [...] 2020 (MEDICAID REPLACEMENT - HMO) da'Treion Rivers [id number] Datreion Rivers 05/31/2024 1 [employer] BETTER [place] - [place] ON OR AFTER 2020 (MEDICAID REPLACEMENT - HMO) da'Treion Rivers [id number] Datreion Rivers 06/06/2024 1 [place] AFTER 2020 (MEDICAID REPLACEMENT - HMO) da'Treion Rivers [id number] Datreion Rivers 11/18/2024 1 [facility] [id number] Datreion L Rivers [id number] Datreion Rivers 11/26/2024 1 [facility] [id number] Datreion L Rivers [id number] Datreion Rivers Notes Date Note Type Note [...] other contraception at this time. DIANE BRITO, BRANCH ASSOCIATE [address] [place], [address], [facility] [employer] IV 03/11/2024 16:04:08 05/31/2024 text/html Patient had IUD removed in March surgically. patient states she has normal periods since. However she bled longer this time and is still bleeding. LMP 05/06/24. Patient went to [facility] and told them she thought she was but it would be to early to detect in Urine. They did a UPT anyway which was negative. Patient went home and waited 4 days and repeated the UPT at home and it had a faint line. Several days later the line was bright. The patient continues to bleed and cramp today. PABLO HESS [address] [facility], [place], [address], [facility] [employer] 05/31/2024 13:49:43 06/06/2024 text/html Kofi lewis is here today.Pt weighs 191lbsPts B/P 120/60Pt is here for miscarriage from last visit, is still spotting occasionally. Is having foul odor with spotting. Pain is well controlled with Naproxen given at last visit. PABLO HESS [address] [facility], [place], [address], [facility] [employer] 06/06/2024 16:43:04 11/18/2024 text/html Annual GYNReport [...] Pt has no other concerns. PABLO HESS [address] [place], [address], [facility] 11/18/2024 15:48:39 11/26/2024 text/html The visit [...] (2022) Caused insomnia and increased anxiety. Lexapro [place] better at 5 mg for three months [...] and depression. Social History:She works full-time at [employer] and is a single mother of two children, ages 10 and 14. SHOSHANA Mcfarland [address] [facility], [place], [address], [facility] 11/27/2024 12:17:21 OBGyn Episode Ob Episode Information Episode Created Date Number of Fetuses Patient Bloodtype Patient rh Status Prepregnancy Weight lbs Domestic Partner Domestic Partner Phone Father Name Interior Design Assistant Status 02/10/20 23 1 CLOSED Fetus Data First Name Last Name Admitted to NICU Weight (g) Sex Living Outcome Pediatric Complications Fetus ID Race Codes Race Delivery Type F Full Term [id number] Michele Calculation Initial Michele Date Initial Exam [...] Domestic Partner Domestic Partner Phone Father Name Interior Design Assistant Status 02/10/20 23 1 CLOSED Fetus Data First Name Last Name Admitted to NICU Weight (g) Sex Living Outcome Pediatric Complications Fetus ID Race Codes Race Delivery Type F Full Term [id number] Michele Calculation Initial Michele Date Initial Exam [...]
--- OUTSIDE RECORDS SUMMARY | 2024-12-22 12:52 | XMS_ITS | Clinical Summary ---
Author Organization [facility] Address [address] [place] [address] Care Team Providers Care Assistant Office Manager Name Role Phone Non-Staff, Provider Primary Care [...] 5 Years) and At-Risk Patients (6 to 49 Years) Aged Out No longer eligible b ased on patient's age to complete this topic RSV Immunizations Under 20 Months Aged Out No longer eligible b ased on patient's age to complete this topic Insurance T Advance Directives * Full Code (Latest Code Status on File) Date Activated Date Inactivated Comments 03/23/2024 2:19 PM 03/23/2024 6:20 PM Care Teams Assistant Office Manager Relationship Specialty Start Date End Date Non-Staff, Provider PCP - General UNKNOWN PHYSICIAN SPECIALTY 03/23/24
[2024-12-22 13:27] LABS: Prothrombin Time 13.2 Seconds (11.1-14.7)
[2024-12-22 13:28] LABS: Partial Thromboplastin Time 30.8 Seconds (22.3-36.8)
[2024-12-22 13:34] LABS: Add Urine Microscopic? YES; Appearance Urine Cloudy (Clear); Bacteria Urine None Seen /hpf; Bilirubin Urine Negative (Negative); Blood Urine 1+ (Negative); Color Urine Yellow (Yellow); Glucose Urine UA Negative (Negative); Ketones Urine Negative (Negative); Leukocyte Esterase Ur 1+ LEU/UL (Negative); Mucus Urine Present /lpf; Nitrate Urine Negative (Negative); Non Pathogenic Casts 0-2; Protein Urine 2+ mg/dL (Negative); RBC Urine 21-50 /hpf (0-2); Specific Grav Ur 1.027 (1.001-1.035); Squamous Epithelial Cell Urine Occasional /hpf (Few); WBC Urine 21-50 /hpf (0-3)
== END 2024-12-22 12:36 | disposition home or self-care (01) ==
LOC: ANHSURGERY 12:40
PROVIDERS: Visit Provider Urology
DX: N20.0 Calculus of kidney (principal); Z01.818 Encounter for other preprocedural examination
CPT/HCPCS: 36415; 81001; 85610; 85730; 87086

== ENCOUNTER 2024-12-23 00:41 | Day surgery (SDC) | payer OTHER, SELFPAY ==
[2024-12-21 16:51] VITALS: BMI 31.7
--- NOTE | 2024-12-21 16:55 | SUR.PREOP ---
Report to the Outpatient Waiting Room, entrance under the green pavilion located off [facility], at time 1130 on date 12/23/24. Planned Procedure Time: 1330.? Time changes happen often and if your time is changed the preop area will call you the afternoon before. - You and your visitor will be asked to self-screen and do not enter if you have any COVID symptoms. Please call surgeon if you need to reschedule. - A mask is optional within the hospital at this time. Patients may have clear liquids (water, carbonated beverages, clear teas, apple juice) until 3 hours prior to surgery with a maximum of 20 ounces. - No food from midnight until time of surgery and no smoking, or chewing tobacco (or any form of nicotine). No chewing gum, candy or mints. - Infants may have breast milk until 4 hours before surgery, formula 6 hours prior to surgery. - Children will be allowed to drink immediately following surgery.? If applicable, please bring a bottle or sippy cup to assist with drinking. Juice, water, soda, and popsicles are readily available.? For infants on formula, please bring formula the day of surgery.? Pacifiers are allowed. Take only the following medications with a SIP of water on the morning of surgery: __na__ DO NOT STOP ANY OF YOUR OTHER PRESCRIPTION MEDICATIONS PRIOR TO SURGERY EXCEPT THE FOLLOWING Hold all vitamins and supplements for 3 days per anesthesiologist. Medications to discontinue per physician Date to take last dose Please no make-up, nail andorran, hairspray, perfume, deodorant, or body powder the day of surgery.? No jewelry (including any body piercings) or valuables the day of surgery, leave them at home.? Please take a shower or bath the night before, or the morning of, surgery with an antibacterial soap.? Wear comfortable, loose fitting clothing.? Children are encouraged to wear pajamas. - Jewelry must be removed prior to entering the operating room.? Rings and piercings that are not removed may be cut off. - The hospital will not accept responsibility for valuables.? - Please leave all valuables, including medications, at home the day of surgery. If you are going home after surgery, a licensed medical driver must drive you home.? - NO public transportation without another adult if you receive anesthesia. - We recommend that an adult stay with you for 24 hours following discharge. - We also recommend that you do not drive, make important decision, drink alcoholic beverages, or take any drugs that were not prescribed by your health care provider for at least 24 hours after your discharge time. For Pediatric surgeries, we recommend two adults accompany the child home. Follow any additional instructions given to you from your surgeon. Telephone instructions given to patient and asked if any additional questions and then verbalized understanding. Patient advised to call surgeon office or pre surgery nurse liaison [phone] if any additional questions.
[2024-12-23] VITALS (11 sets, daily range): BP systolic 115–140; BP diastolic 75–93; PULSE 64–85; RESP 10–16; TEMP 36.4–37.3; O2SAT 96–100
--- NOTE | ~2024-12-23 | XR_ITS ---
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 IMPRESSION: Redemonstration of multiple bilateral renal calculi, as detailed above. Reviewed, dictated and finalized at location A.
--- OUTSIDE RECORDS SUMMARY | 2024-12-23 00:44 | XMS_ITS | Continuity of Care Document ---
Author Organization [facility] Address [address] [place] [address] Phone Care Team Providers Care Diet Kitchen Cook Name Role Phone Unavailable Unavailable Unavailable Procedures Procedure Date Extraction erupted tooth or exposed root Limit Oral Evaluation- problem focused J Periapical Radiographic, first Image Feb Advance Directives Directive Yes / No Effective Date File Name No Information Encounters Encounter Description Practice Location Reason(s) For Visit Diagnoses Date Provider Providers Copied on Encounter [employer] [facility] , [address], [place], [place], [id number], tel:[phone] [facility] caries on pit and fissure surface penetrat into pulp No Information Referring Provider: Ervin Clayton [address], [place], [address]. tel:[phone] Family History Family Member Type Diagnosis Age [...]
--- OUTSIDE RECORDS SUMMARY | 2024-12-23 00:44 | XMS_ITS | Clinical Summary ---
Author Organization [facility] Address [address] [place] [address] Care Team Providers Care Hansard Reporter Name Role Phone Citlaly Ramos DO Primary Care Provider [phone] Allergies Active Allergy Reactions Criticality Noted Date [...] on file Legal Sex Female 1:00 AM DATA CENTER ARCHITECT Gender Identity Not on file Sexual Orientation Not on file Obstetrics History Last Filed Vital Signs Vital Sign Reading Time Taken Comments Blood Pressure 126/86 10/16/2021 12:40 PM DATA CENTER ARCHITECT Pulse 82 10/16/2021 12:40 PM DATA CENTER ARCHITECT Temperature 36.7 C (98.1 F) 10/21/2021 1:29 PM DATA CENTER ARCHITECT Respiratory Rate 8 10/16/2021 12:40 PM DATA CENTER ARCHITECT Oxygen Saturation 100% 10/16/2021 12:40 PM DATA CENTER ARCHITECT Inhaled Oxygen Concentration - - Weight 90.7 kg (200 lb) 10/16/2021 10:29 AM DATA CENTER ARCHITECT Height 162.6 cm (5' 4 ) 10/16/2021 10:29 AM DATA CENTER ARCHITECT Body Mass Index 34.33 10/16/2021 10:29 AM DATA CENTER ARCHITECT Plan of Treatment Not on file Medical Devices Explanted Type Area Dyno Technician Device Identifier Shelf Expiration Date Model / Serial / Lot Ureteral Stent Explanted:Qty: 1 on 10/16/2021 by Tye Woods MD at [facility] Right: Urethra Other [employer] [id number] Universa 6fr 24cm Radiopaque Positioner Monofilament Tether - [id number] Implanted:Qty: 1 on 10/16/2021 by Tye Woods MD at [facility] Explanted:Qty: 1 on 10/21/2021 by Tye Woods MD Right: Urethra [employer] [id number] 07/22/2024 [id number] / / [id number] Insurance [facility] [place] [address] [place] [address] Care Teams Hansard Reporter Relationship Specialty Start Date End Date Citlaly Ramos DO [address] [place] [address] PCP - General Family Medicine 10/03/21
--- OUTSIDE RECORDS SUMMARY | 2024-12-23 00:44 | XMS_ITS | Clinical Summary ---
Author Organization [facility] Address [address] [place] [address] Care Team Providers Care Real Estate Executive Assistant Name Role Phone Non-Staff, Provider Primary Care [...] 2:19 PM 03/23/2024 6:20 PM Care Teams Real Estate Executive Assistant Relationship Specialty Start Date End Date Non-Staff, Provider PCP - General UNKNOWN PHYSICIAN SPECIALTY 03/23/24
--- OUTSIDE RECORDS SUMMARY | 2024-12-23 00:44 | XMS_ITS | Referral Summary ---
Author Organization [facility] Address [address] [place] [address] Care Team Providers Care Cattle Alley Worker Name Role Phone Citlaly Ramos DO Primary Care Provider [phone] Allergies Active Allergy Reactions Criticality Noted Date [...] on file Legal Sex Female 1:00 AM COMPOUND COATING MACHINE OFFBEARER Gender Identity Not on file Sexual Orientation Not on file Last Filed Vital Signs Vital Sign Reading Time Taken Comments Blood Pressure 126/86 10/16/2021 12:40 PM COMPOUND COATING MACHINE OFFBEARER Pulse 82 10/16/2021 12:40 PM COMPOUND COATING MACHINE OFFBEARER Temperature 36.7 C (98.1 F) 10/21/2021 1:29 PM COMPOUND COATING MACHINE OFFBEARER Respiratory Rate 8 10/16/2021 12:40 PM COMPOUND COATING MACHINE OFFBEARER Oxygen Saturation 100% 10/16/2021 12:40 PM COMPOUND COATING MACHINE OFFBEARER Inhaled Oxygen Concentration - - Weight 90.7 kg (200 lb) 10/16/2021 10:29 AM COMPOUND COATING MACHINE OFFBEARER Height 162.6 cm (5' 4 ) 10/16/2021 10:29 AM COMPOUND COATING MACHINE OFFBEARER Body Mass Index 34.33 10/16/2021 10:29 AM COMPOUND COATING MACHINE OFFBEARER Plan of Treatment Not on file Medical Devices Explanted Type Area Manager Copy Device Identifier Shelf Expiration Date Model / Serial / Lot Ureteral Stent Explanted:Qty: 1 on 10/16/2021 by Tye Woods MD at [facility] Right: Urethra Other [employer] [id number] Universa 6fr 24cm Radiopaque Positioner Monofilament Tether - [id number] Implanted:Qty: 1 on 10/16/2021 by Tye Woods MD at [facility] Explanted:Qty: 1 on 10/21/2021 by Tye Woods MD Right: Urethra [employer] [id number] 07/22/2024 [id number] / / [id number] Insurance AETNA BETTER [facility] Care Teams Cattle Alley Worker Relationship Specialty Start Date End Date Citlaly Ramos DO [address] [place] [address] PCP - General Family Medicine 10/03/21
--- OUTSIDE RECORDS SUMMARY | 2024-12-23 00:44 | XMS_ITS | Clinical Summary ---
Author Organization [facility] [employer] Address [address] [facility] [place] [address] Care Team Providers Care Sourcing Coordinator Name Role Phone TheresaAnkita modiron GUZMAN Primary Care Provider [phone] Miller Zamora MD Unavailable [phone] Darryl Starr DO Unavailable Source Comments [facility],non-owned Affiliates and Associated Physician Practices is amultiple site organization consisting of ambulatory clinics and hospital sitesin [place], [place], [place] and [place]. This disclosure is being madepursuant to the Care Everywhere program and may not contain all information available regarding this patient. Last updated 18.[facility] [employer] Allergies Active Allergy Reactions Criticality Noted Date [...] on file Legal Sex Female 5:37 AM SPORTS COMPLEX ATTENDANT Gender Identity Not on file Sexual Orientation Not on file Last Filed Vital Signs Vital Sign Reading Time Taken Comments Blood Pressure 128/84 09/24/2021 2:07 PM SPORTS COMPLEX ATTENDANT Pulse 93 09/24/2021 2:07 PM SPORTS COMPLEX ATTENDANT Temperature 37.2 C (98.9 F) 09/24/2021 2:07 PM SPORTS COMPLEX ATTENDANT Respiratory Rate 18 09/24/2021 2:07 PM SPORTS COMPLEX ATTENDANT Oxygen Saturation 99% 09/24/2021 2:07 PM SPORTS COMPLEX ATTENDANT Inhaled Oxygen Concentration 98% 11/25/2020 4 :20 PM CDT Weight 86.2 kg (190 lb) 09/24/2021 2:07 PM SPORTS COMPLEX ATTENDANT Height 162.6 cm (5' 4 ) 09/24/2021 2:07 PM SPORTS COMPLEX ATTENDANT Body Mass Index 32.61 09/24/2021 2:07 PM SPORTS COMPLEX ATTENDANT Plan of Treatment Health Maintenance Due Date [...] this topic Medical Devices Implanted Type Area Social Studies Teacher Device Identifier Shelf Expiration Date Model / Serial / Lot Stent Uret 6fr 24cm Pgtl Crv Tpr Tip - [id number] Implanted:Qty: 1 on 01/14/2021 by Miller Zamora MD at [facility] Stent Right: Ureter [employer] 09/19/2023 [id number] / [id number] / [id number] Stent Uret 6fr 24cm 2 Drmtr Bldr Loop Implanted:Qty: 1 on 11/25/2020 by Miller Zamora MD at [facility] Right: Ureter [employer] 01/08/2023 [id number] / / Procedures Procedure Name Priority Date/Time Associated Diagnosis Comments PAP IG LB RFLX HPV APTIMA ASCU Routine 07/01/2021 4:04 PM CDT Well woman exam from Last 3 Months or Most Recently Relevant to Health Maintenance Results * PAP IG LB RFLX HPV APTIMA ASCU (07/01/2021 4:04 PM CDT) Diagnosis [facility] INSURANCE BILL Comment: NEGATIVE FOR INTRAEPITHELIAL LESION OR MALIGNANCY. TRICHOMONAS VAGINALIS IS PRESENT. Specimen Adequacy [facility] INSURANCE BILL Comment: Satisfactory for evaluation. Endocervical and/or squamous metaplastic cells (endocervical component) are present. Clinician Provided ICD10 [facility] INSURANCE BILL Comment: Z01.419 N20.0 N76.1 Performed by [employer] INSURANCE BILL Comment:Libby montgomery, Lining Maker Hand (ASCP) Comment . [facility] INSURANCE BILL Note [facility] INSURANCE BILL Comment: The Pap smear is [...] use of an image guided system. Note [facility] INSURANCE BILL Comment: The HPV DNA reflex criteria were not met with this specimen result therefore, no HPV testing was performed. . Pathology/Cytolog y PART OF UTERINE CERVIX / Unknown 07/01/2021 4:04 PM CDT 07/02/2021 Narrative [facility] INSURANCE BILL - 07/03/2021 5:08 PM CDT No. of containers..01 ThinPrep Vial Resulting Agency Comment Lab Testing performed at: [facility] Kenneth VAZQUEZ [id number] Javilaurasheila Starr DO LAB - PATHOLOGY/CYTOLOGY ORDERAB LES Final Result [facility] INSURANCE BILL [address] [place] [address] from Last 3 Months or Most Recently Relevant to Health Maintenance Insurance MEDICAID - OUT OF STATE Advance Directives * Full Code (Latest Code Status on File) Date Activated Date Inactivated Comments 10/20/2015 9:32 AM 10/20/2015 9:32 AM Care Teams Sourcing Coordinator Relationship Specialty Start Date End Date Citlaly Ramos DO PCP - General Family Medicine 02/21/21 Miller Zamora MD [address] [place] [id number] Urology 02/21/21 Darryl Starr DO [address] [facility] [place] [address] Obstetrics and Gynecology 07/04/21
--- NOTE | 2024-12-23 06:14 | WPDHPUPDATE1 ---
History and Physical Update Update Date/Time: 12/23/24 06:14 History and Physical has been reviewed, including an updated exam of the patient. There are NO changes in the patient's condition. Risks, benefits, and alternatives have been discussed and questions answered. Patient agrees to proceed with procedure.
--- NOTE | 2024-12-23 08:55 | WPDANESEPP ---
Anes - Eval Pre Procedure Procedure: Operation Date: 12/23/24 13:30 Proposed Procedures p Left Extracorporeal Shock Wave Lithotripsy - Clint Conrad MD s Cystoscopy, Left Retrograde Pyelography - Clint Conrad MD Date/Time: 12/23/24 08:55 Pre Op Diagnosis: lt Kidney stone Patient Data Age: 34 Gender: F Height: 1.63 m Weight: 83.9 kg Allergies Allergy/AdvReac Type Severity Reaction Status Date / Time amoxicillin (From Augmentin) Allergy Hives Verified 12/21/24 16:47 clavulanic acid (From Allergy Hives Verified 12/21/24 16:47 Augmentin) hydrocodone (From Vicodin) Allergy Hives Verified 12/21/24 16:47 Home Medications ?Medication ?Instructions ?Recorded ?Confirmed ?Type oxycodone 5 mg tablet 5 mg PO Q8H PRN pain #10 tabs 12/09/24 12/21/24 Rx Patient hx anesthesia problems: none Family hx anesthesia problems: none Results Review: All pre-operative results and documents have been reviewed as part of the pre-operative evaluation. [facility] Past Medical History Medical History Anxiety and depression Eczema Overweight (BMI 25.0-29.9) Social History Social History Years smoked: 2 Tobacco type: e-cigarettes/vaping Living arrangements: alone Spiritual care concerns: No Exam Day of Procedure 12/23/24 08:55 Patient weight: overweight
[2024-12-23] MEDS: LACTATED RINGERS 1,000 ML 30 ML IV CONT ×2 (12:45→15:19)
[2024-12-23] MEDS: fentaNYL CITRATE INJ (*CRX) 100 MCG/2 ML VIAL 50 MCG IV PUSH (12:55)
[2024-12-23] MEDS: ceFAZolin 2 GM/D5W 50 ML 2 GM/50 ML BAG IVPB (13:42)
--- NOTE | 2024-12-23 13:55 | P.PNAN_ITS ---
Anes - Eval Final PreProcedure Day of Procedure 12/23/24 13:55 Patient weight: obese Heart: regular rate and rhythm Lungs: clear to auscultation Airway: Mallampati scale class II Neurological: alert and oriented Last oral intake: >/= 8 hours ASA classification: III Emergent: no Anesthetic plan: proceed Anesthesia type and monitoring: general LMA and standard monitoring Results Review: All pre-operative results and documents have been reviewed as part of the pre- operative evaluation. Informed Consent: The patient's anesthetic plan and its attendant risks and benefits were discussed with the patient/family/POA. Questions were solicited and answers provided to the satisfaction of the patient/family/POA.
--- NOTE | 2024-12-23 14:08 | P.OP_ITS ---
Procedure Note - Detailed Date of Procedure 12/23/24 Pre-op Diagnosis Left kidney stone Post-op Diagnosis Same Procedure Performed Cystoscopy, left retrograde pyelography, left ureteral stent placement Surgeon Clint Conrad MD Anesthesia General Description of Procedure The patient was brought to the operative suite where she was placed in the frog- legged position on the Dornier lithotripter table. Flexible cystoscopy was undertaken with a 16F flexible cystoscopy. Her urethra and bladder neck were endoscopically normal. The bladder mucosa was normal and there was a single, orthotopic ureteral orifice bilaterally. A 0.035 glidewire was advanced into the left renal pelvis under fluoroscopy. retrograde pyelography was obtained via a [place] ureteral catheter. This confirms that the calcification identified on CT and KUB is indeed in the collecting system.. The patient was then repositioned in the supine position and the focal point of the lithotriptor was placed at a 8mm left renal pelvic calculus. A total of 2500 shocks were delivered at a power setting of 4. There appeared to be good fragmentation of the stone. The patient tolerated the procedure well and was taken to the recovery room in good condition. Drains No Packing No Pathology None sent Complications No immediate complications
[2024-12-23 14:14] LABS: BEDSIDEPREGUCG Negative (Negative)
[2024-12-23] MEDS: fentaNYL CITRATE INJ (*CRX) 100 MCG/2 ML VIAL 25 MCG IV PUSH ×8 (14:48→15:13)
[2024-12-23] MEDS: KETOROLAC 30 MG/ML VIAL (*BKC) IV PUSH (15:20)
[2024-12-23] MEDS: HYDROmorphone HCL INJ (*CRX) 1 MG/ML SYR 0.5 MG IV PUSH ×2 (15:35→15:44)
[2024-12-23] MEDS: oxyCODONE HCL (*CRX) 5 MG TAB IR PO (16:22)
== END 2024-12-23 17:07 | disposition home or self-care (01) ==
PROVIDERS: Visit Provider Urology
PROC: (CPT 50590; principal; 2024-12-23 13:30)
PROC: (CPT 52352; 2024-12-23 13:30)
DX: N20.0 Calculus of kidney (principal)
CPT/HCPCS: 52332; 74018; A9270; C1758; C1769; J0690; J1100; J1171; J1885; J2003; J2250; J2405; J2704; J3010; J7120; Q9966

== ENCOUNTER 2025-01-03 14:27 | Outpatient (CLI) | payer OTHER, SELFPAY ==
--- NOTE | ~2025-01-03 | XR_ITS ---
XR abdomen/kub 1V 01/03/2025 14:44 Indication: Nephrolithiasis Procedure: KUB Comparison: KUB dated 12/23/[address] dated 12/09/2024 Findings: There are multiple right renal stones. Bowel gas pattern nonobstructive. Moderate colonic f ecal loading. No significant bone or joint abnormality. Impression: 1: Right nephrolithiasis. Reviewed, dictated and finalized at location A. Impression: 1: Right nephrolithiasis.
--- OUTSIDE RECORDS SUMMARY | 2025-01-03 16:01 | XMS_ITS | Continuity of Care Document ---
Author Organization [facility] Address [address] [place] [address] Phone Care Team Providers Care Route Driver Name Role Phone Unavailable Unavailable Unavailable Procedures Procedure Date Extraction erupted tooth or exposed root Limit Oral Evaluation- problem focused J Periapical Radiographic, first Image Feb Advance Directives Directive Yes / No Effective Date File Name No Information Encounters Encounter Description Practice Location Reason(s) For Visit Diagnoses Date Provider Providers Copied on Encounter [facility] , [address], [place], [place], [address], tel:[phone] [facility] Dental caries on pit and fissure surface penetrat into pulp No Information Referring Provider: Ervin Clayton [address], [place], [address]. tel:[phone] Family History Family Member Type Diagnosis Age [...]
--- OUTSIDE RECORDS SUMMARY | 2025-01-03 16:01 | XMS_ITS | Data Portability ---
Author Organization [facility], [facility] Address [address] [place] [address] Assessment Encounter Date Assessment Date Assessment LastModified [...] quantitativ e, serum or plasma 2023 024 [facility], [address] [place], [address], 4 12:38:49 CBC w/ auto diff 2023 024 [facility], [address] [place], [address], 4 02:21:20 beta-HCG, quantitativ e, serum or plasma 2023 024 [facility], [address] [place], [address], 4 17:21:41 CBC w/ auto diff 2023 024 [facility], [address] [place], [address], 4 18:36:13 test, urine 2023 024 [facility], [address] [place], [address], 4 19:59:13 Referral None recorded. Procedures None recorded. Surgeries None recorded. Imaging None recorded. Medication Orders escitalopra m 10 mg tablet 2024 025 [facility]/Pharmacy #[id number], [address], [place], [address], 5 11:49:50 hydroxyzine HCl 25 mg tablet 2024 025 [facility]/Pharmacy #[id number], [address], [place], [address], 5 11:49:50 doxycycline hyclate 100 mg capsule 2023 025 [facility]/Pharmacy #[id number], [address], [place], [address], 15:16:43 naproxen 500 mg tablet 2023 025 [facility]/Pharmacy #[id number], [address], [place], [address], 15:17:14 Patient TargetsNo targets recorded. Patient Instructions Encounter Date Encounter Id Patient Instructions Last Modified By Organization Details Last Modified Time 03/11/2024 [id number] IUD removal: car e instructions Not available 03/11/2024 16:04:05 11/18/2024 [id number] body mass index: care instructions Not available 11/18/2024 15:48:36 learning about depression screening Not available 11/18/2024 15:48:36 A healthy lifestyle: care instructions Not available 11/18/2024 15:48:37 substance use disorder: care instructions Not available 11/18/2024 15:48:36 tobacco cessation Not availabl e 11/18/2024 15:48:36 11/26/2024 [id number] AVERY-7 anxiety scale* DIRK Not available 12/07/2024 [...] and/u L 3.8-10 .8 normal Not Available [employer] [address], [address], 06/08/2024 02:21:17 06/08/2006/08/2024 CBC (INCL UDES DIFF/ PLT) red blood cell count 4.47 sada on/uL 3.80-5 .10 normal Not Available [address], [address], 06/08/2024 02:21:17 06/08/20 24 06/08/2024 CBC (INCL UDES DIFF/ PLT) hemoglobin 10.8 g/dL 11.7-1 5.5 low Not Available [address], [address], 06/08/2024 02:21:17 06/08/2006/08/2024 CBC (INCL UDES DIFF/ PLT) hematocrit 36.8 % 35.0-4 5.0 normal Not Available [employer] [address], [address], 06/08/2024 02:21:17 06/08/2006/08/2024 CBC (INCL UDES DIFF/ PLT) MCV 82.3 fL 80.0-1 00.0 normal Not Available [employer] [address], [address], 06/08/2024 02:21:17 06/08/20 24 06/08/2024 CBC (INCL UDES DIFF/ PLT) MCH 24.2 pg 27.0-3 3.0 low Not Available [address], [address], 06/08/2024 02:21:17 06/08/20 24 06/08/2024 CBC (INCL UDES DIFF/ PLT) MCHC 29.3 g/dL 32.0-3 6.0 low For adult s, a sligh t decre ase in the calcu lated MCHC value (in the range of 30 to 32 g/dL) is most likel y not clini shira signi fican t; chio er, it shoul d be inter prete d with cauti on in [facility] with other red cell esdras eters and the patie nt's clini ricardo condi tion. Not Available [address], [address], 06/08/2024 02:21:17 06/08/20 24 06/08/2024 CBC (INCL UDES DIFF/ PLT) RDW 17.1 % 11.0-1 5.0 high Not Available [address], [address], 06/08/2024 02:21:17 06/08/20 24 06/08/2024 CBC (INCL UDES DIFF/ PLT) platelet count 438 thous and/u L 140-40 0 high Not Available [address], [address], 06/08/2024 02:21:17 06/08/20 24 06/08/2024 CBC (INCL UDES DIFF/ PLT) MPV 10.1 fL 7.5-12 .5 normal Not Available [address], [address], 06/08/2024 02:21:17 06/08/20 24 06/08/2024 CBC (INCL UDES DIFF/ PLT) absolute neutrophils 2754 cells /uL 1500-7 800 normal Not Available [address], [address], 06/08/2024 02:21:17 06/08/20 24 06/08/2024 CBC (INCL UDES DIFF/ PLT) absolute lymphocytes 2040 cells /uL 850-39 00 normal Not Available [address], [address], 06/08/2024 02:21:17 06/08/20 24 06/08/2024 CBC (INCL UDES DIFF/ PLT) absolute monocytes 708 cells /uL 200-95 0 normal Not Available [address], [address], 06/08/2024 02:21:17 06/08/20 24 06/08/2024 CBC (INCL UDES DIFF/ PLT) absolute eosinophils 420 cells /uL 15-500 normal Not Available [address], [address], 06/08/2024 02:21:17 06/08/20 24 06/08/2024 CBC (INCL UDES DIFF/ PLT) absolute basophils 78 cells /uL 0-200 normal Not Available [address], [address], 06/08/2024 02:21:17 06/08/20 24 06/08/2024 CBC (INCL UDES DIFF/ PLT) neutrophils 45.9 % normal Not Available [address], [address], 06/08/2024 02:21:17 06/08/20 24 06/08/2024 CBC (INCL UDES DIFF/ PLT) lymphocytes 34.0 % normal Not Available [address], [address], 06/08/2024 02:21:17 06/08/20 24 06/08/2024 CBC (INCL UDES DIFF/ PLT) monocytes 11.8 % normal Not Available [facility] [address] [address] [place], [address], 06/08/2024 02:21:17 06/08/20 24 06/08/2024 CBC (INCL UDES DIFF/ PLT) eosinophils 7.0 % normal Not Available [facility] [address] [address] [place], [address], 06/08/2024 02:21:17 06/08/20 24 06/08/2024 CBC (INCL UDES DIFF/ PLT) basophils 1.3 % normal Not Available [facility] [address] [address] [place], [address], 06/08/2024 02:21:17 03/23/20 24 03/23/2024 CBC WITH DIFF WBC 6.51 x10'3 /uL 4.5-11 .0 Not Available [facility] (Lab) [place], [address], 03/23/2024 11:03:32 03/23/20 24 03/23/2024 CBC WITH DIFF RBC 4.34 x10'6 /uL 4.20-5 .40 Not Available [facility] (Lab) [place], [address], 03/23/2024 11:03:32 03/23/20 24 03/23/2024 CBC WITH DIFF hemoglobin 10.5 g/dL 12.0-1 6.0 low Not Available [facility] (Lab) [address] [place], [address], 03/23/2024 11:03:32 03/23/20 24 03/23/2024 CBC WITH DIFF hematocrit 33.3 % 38.0-4 8.0 low Not Available [facility] (Lab) [place], [address], 03/23/2024 11:03:32 03/23/20 24 03/23/2024 CBC WITH DIFF MCV 76.7 fL 81.0-9 9.0 low Not Available [facility] (Lab) [address], [place], [address], 03/23/2024 11:03:32 03/23/20 24 03/23/2024 CBC WITH DIFF MCH 24.2 pg 27.0-3 1.0 low Not Available [facility] (Lab) [address], [place], [address], 03/23/2024 11:03:32 03/23/20 24 03/23/2024 CBC WITH DIFF MCHC 31.5 g/dL 32.0-3 6.0 low Not Available [facility] (Lab) [address], [place], [address], 03/23/2024 11:03:32 03/23/20 24 03/23/2024 CBC WITH DIFF RDW 17.7 % 11.5-1 4.5 high Not Available [facility] (Lab) [address], [place], [address], 03/23/2024 11:03:32 03/23/20 24 03/23/2024 CBC WITH DIFF platelet count 453 x10'3 /uL 130-40 0 high Not Available [facility] (Lab) [address], [place], [address], 03/23/2024 11:03:32 03/23/20 24 03/23/2024 CBC WITH DIFF MPV 9.0 fL 9.3-12 .2 low Not Available [facility] (Lab) [address], [place], [address], 03/23/2024 11:03:32 03/23/20 24 03/23/2024 CBC WITH DIFF diff type AUTOMA MERNA DIFFER ENTIAL Not Available [facility] (Lab) [address], [place], [address], 03/23/2024 11:03:32 03/23/20 24 03/23/2024 CBC WITH DIFF neutrophils 58.3 % Not Available [facility] (Lab) [address], [place], [address], 03/23/2024 11:03:32 03/23/20 24 03/23/2024 CBC WITH DIFF lymphocytes 26.3 % Not Available [facility] (Lab) [address], [place], [address], 03/23/2024 11:03:32 03/23/20 24 03/23/2024 CBC WITH DIFF monocytes 9.8 % Not Available [facility] (Lab) [address], [place], [address], 03/23/2024 11:03:32 03/23/20 24 03/23/2024 CBC WITH DIFF eosinophils 4.3 % Not Available [facility] (Lab) [address], [place], [address], 03/23/2024 11:03:32 03/23/20 24 03/23/2024 CBC WITH DIFF basophils 0.8 % Not Available [facility] (Lab) [address], [place], [address], 03/23/2024 11:03:32 03/23/20 24 03/23/2024 CBC WITH DIFF immature granulocytes 0.5 % Not Available [facility] (Lab) [address], [place], [address], 03/23/2024 11:03:32 03/23/20 24 03/23/2024 CBC WITH DIFF abs. neutrophils 3.80 x10'3 /uL 1.80-7 .70 Not Available [facility] (Lab) [address] [facility], [place], [address], 03/23/2024 11:03:32 03/23/20 24 03/23/2024 CBC WITH DIFF abs. lymphocytes 1.71 x10'3 /uL 1.00-4 .80 Not Available [facility] (Lab) [place], [address], 03/23/2024 11:03:32 03/23/20 24 03/23/2024 CBC WITH DIFF abs. monocytes 0.64 x10'3 /uL 0.24-0 .86 Not Available [facility] (Lab) [address], [place], [address], 03/23/2024 11:03:32 03/23/20 24 03/23/2024 CBC WITH DIFF abs. eosinophils 0.28 x10'3 /uL 0.04-0 .36 Not Available [facility] (Lab) [place], [address], 03/23/2024 11:03:32 03/23/20 24 03/23/2024 CBC WITH DIFF abs. basophils 0.05 x10'3 /uL 0.01-0 .08 Not Available [facility] (Lab) [place], [address], 03/23/2024 11:03:32 03/23/20 24 03/23/2024 CBC WITH DIFF abs. immature grans 0.03 x10'3 /uL 0.00-0 .49 Not Available [facility] (Lab) [place], [address], 03/23/2024 11:03:32 03/23/20 24 03/25/2024 SJS SURGI RICARDO PATHO LOGY path report [facility] Dep[facility] tment of Labor atory Medic ine [address] [facility] [facility] [address] [facility] [place] [address] Telep merary: , exten osito 07 Patho logy Repor t Surgi ricardo Patho logy Repor t Name: BRANDON ALEXANDER, DATRE ION L Speci men #: [id number] Age: [id number] (Age: 34) Locat ion: [facility] S Sex: F Proce dure Date: 2023 [facility] #: [id number] Date Recei laith: 2023 Date Repor merna: 2023 Provi james: PATEL Day MD [facility] e: Vagin al cyst Clini ricardo [...] and sign out were perfo rmed at [facility], [address], [facility] [place] [address] . FINAL DIAGN OSIS: Vagin a, cyst, excis ion: -Jarod gn Mulle diomedes cyst with focal squam ous metap lasia . Lisa ctron icall y Coral d Out KHANH Nice MD [id number] 0 Not Available [facility] (Lab) [address] [facility], [place], [address], 03/25/2024 11:22:21 05/31/20 24 06/01/2024 CBC (INCL UDES DIFF/ PLT) WBC 7.4 thous and/u L 4.0 - 9.8 normal Not Available [facility] [address] [place] [address], [address], 06/01/2024 18:36:13 05/31/2006/01/2024 CBC (INCL UDES DIFF/ PLT) RBC 4.2 sada on/uL 3.9 - 4.9 normal Not Available [facility] [address] [place] [address], [address], 06/01/2024 18:36:13 05/31/2006/01/2024 CBC (INCL UDES DIFF/ PLT) hemoglobin 10.2 g/dL 11.8 - 14.8 low Not Available [facility] [address] [place] [address], [address], 06/01/2024 18:36:13 05/31/20 24 06/01/2024 CBC (INCL UDES DIFF/ PLT) hematocrit 31.9 % 35.5 - 44.0 low Not Available [facility] [address] [place] [address], [address], 06/01/2024 18:36:13 05/31/2006/01/2024 CBC (INCL UDES DIFF/ PLT) MCV 75.2 fL 82.0 - 99.0 low Not Available [facility] [address] [place] [address], [address], 06/01/2024 18:36:13 05/31/2006/01/2024 CBC (INCL UDES DIFF/ PLT) MCH 24.1 pg 27.2 - 32.6 low Not Available [facility] [place], [address], 06/01/2024 18:36:13 05/31/20 24 06/01/2024 CBC (INCL UDES DIFF/ PLT) MCHC 32.0 g/dL 31.5 - 35.5 normal Not Available [address], [address], 06/01/2024 18:36:13 05/31/2006/01/2024 CBC (INCL UDES DIFF/ PLT) RDW-CV 18.7 % 11.5 - 14.5 high Not Available [address], [address], 06/01/2024 18:36:13 05/31/2006/01/2024 CBC (INCL UDES DIFF/ PLT) platelet 427 thous and/u L 140 - 350 high Not Available [address], [address], 06/01/2024 18:36:13 05/31/2006/01/2024 CBC (INCL UDES DIFF/ PLT) MPV 10.5 fL 9.3 - 12.4 normal Not Available [address], [address], 06/01/2024 18:36:13 05/31/2006/01/2024 CBC (INCL UDES DIFF/ PLT) absolute neutrophil 3.62 thous and/u L 1.90 - 7.00 normal Not Available [address], [address], 06/01/2024 18:36:13 05/31/2006/01/2024 CBC (INCL UDES DIFF/ PLT) absolute lymphocyte 2.53 thous and/u L 0.70 - 4.50 normal Not Available [address], [address], 06/01/2024 18:36:13 05/31/2006/01/2024 CBC (INCL UDES DIFF/ PLT) absolute monocyte 0.83 thous and/u L 0.10 - 1.30 normal Not Available [address], [address], 06/01/2024 18:36:13 05/31/20 24 06/01/2024 CBC (INCL UDES DIFF/ PLT) absolute eosinophil 0.32 thous and/u L <0.70 normal Not Available [address], [address], 06/01/2024 18:36:13 05/31/20 24 06/01/2024 CBC (INCL UDES DIFF/ PLT) absolute basophil 0.05 thous and/u L <0.20 normal Not Available [address], [address], 06/01/2024 18:36:13 05/31/20 24 06/01/2024 CBC (INCL UDES DIFF/ PLT) absolute immature granulocyte 0.03 thous and/u L <0.03 normal Not Available [address], [address], 06/01/2024 18:36:13 05/31/20 24 06/02/2024 HCG, TOTAL [...] has not been valid ated by the [facility] act[facility] er of this assay . Not Available [address], [address], 06/02/2024 17:21:41 05/31/20 24 05/31/2024 pregn janet test, urine HCG positi ve Not Available [facility] [address] [facility], [place], [address], 05/31/2024 09:27:00 06/07/20 24 06/09/2024 HCG, TOTAL [...] er of this assay . Not Available [facility] [address] [place], [address], 06/09/2024 12:38:49 Result Notes None recorded. Problems Name Problem SNOMED Code Status Onset Date Resolution Date Notes Provider Name and Address Organization Details Recorded Time Generalized anxiety disorder 31674442 Active 2024 SHOSHANA Mcfarland [address] [place] [address], [address], [facility] [employer] IV 5 11:45:39 Panic attack 175513017 Active 2024 Kris Rodrigues MARIANA [address] [place] [address], [address], [facility] 5 11:45:50 Depressive disorder 87532460 Active 2024 Kris Rodrigues [address], [address], [facility] [employer] IV 5 11:46:05 Disturbance in sleep behavior 93985300 Active 2024 SHOSHANA Mcfarland [address] [place] [address], [address], [facility] [employer] IV 5 11:46:19 Persistent depressive disorder 9089902130 Active 2024 Kris Rodrigues MARIANA [address] [place] [address], [address], [facility] [employer] IV 5 11:46:50 Problem Notes None recorded. Procedures Surgical History Date Name Laterality Status Provider Name and Address Organization Details Recorded Time 024 Suture/Staple removal cancelled Susana Hillman [facility] 04/08/2024 12:14:07 024 removal of intrauterine contraceptive device completed Jennifer Tory [facility] 05/31/2024 09:19:41 024 IUD Removal completed DIANE BRITO, [facility] [address] [place], [address], [place] [facility] 03/11/2024 16:02:14 023 Date of Last Pap Smear completed Candice Givens, [facility] [address] [place], [address], [place] [employer] [facility] IV 11/06/2024 19:54:47 Imaging Results None recorded. Procedure Notes None recorded. Medical Equipment None Reported. Allergies Allergen ID Allergen Name Allergen Category Reaction Reaction Severity Criticality Documentation Date Start Date Code Code System Note Provider Name and Address Organization Details Recorded Time 284008 Product containin g penicilli n (product) medicatio n Not available Not available Not available 02/09/2023 24089 8001 SNOMED Not Available Not Available Not Available 776296 house dust allergeni c extract environme nt,medica tion Not available Not available Not available 02/09/2023 25144 9 RxNorm Not Available Not Available Not Available 188860 cat dander environme nt Not available Not available Not available 02/09/2023 75480 UNK Not Available Not Available Not Available 691093 Canis lupus familiari s extract environme nt Not available Not available Not available 02/09/2023 81085 4 RxNorm Not Available Not Available Not Available 204407 mold extract environme nt Not available Not available Not available 02/09/2023 83469 8 RxNorm Not Available Not Available Not Available 055522 Augmentin medicatio n Not available Not available Not available 03/11/2024 82637 2 RxNorm Not Available Not Available Not [...] Address Organization Details Last Updated DateTime 03/11/2024 13413.9 6 g 32.4 kg/m2 162.56 cm 100 mm[Hg] 72 mm[Hg] Jennifer Spears [facility] 4 15:35:27 Date Recorded Body height Body mass index (BMI) Body weight Systolic blood pressure Diastolic blood pressure Provider Name and Address Organization Details Last Updated DateTime 05/31/2024 162.56 cm 33.1 kg/m2 45446.3 3 g 106 mm[Hg] 54 mm[Hg] Jennifer Spears [facility] 4 09:26:43 Date Recorded Body height Body mass index (BMI) Body weight Systolic blood pressure Diastolic blood pressure Provider Name and Address Organization Details Last Updated DateTime 06/06/2024 162.56 cm 32.8 kg/m2 96156.14 g 120 mm[Hg] 60 mm[Hg] Kaylee Carpio [facility] 4 15:58:43 Date Recorded Body height Body mass index (BMI) Body weight Systolic blood pressure Diastolic blood pressure Provider Name and Address Organization Details Last Updated DateTime 11/18/2024 162.56 cm 31.7 kg/m2 42944.15 g 110 mm[Hg] 68 mm[Hg] Camila Strauss [facility] 15:15:53 Social History Question Answer Notes LastModified by Organizat ion Details LastModified Time Tobacco Smoking Status Former Smoker Laura Ca ellis, [facility] 02/09/2023 11:51:45 What Is Your Level Of Alcohol Consumption? Occasional Information not available 02/09/2023 How Many Years Have You Consumed Alcohol? 7 Information not available 02/09/2023 Are You Blind Or Do You Have Difficulty Seeing? No Information not available 03/11/2024 Are You Currently Employed? Yes [email or web address] Information not available 11/18/2024 Are You Deaf Or Do You Have Serious Difficulty Hearing? No Information not available 03/11/2024 What Type Of Diet Are You Following? REGULAR [email or web address] Information not available 02/09/2023 Do You Or Have You Ever Used E-cigarettes Or Vape? Current User Of Electronic Cigarettes [email or web address] Information not available 02/09/2023 When Did You Quit Smoking? 6-10yearssince lastcigarette [email or web address] Information not available 11/18/2024 How Many Children Do You Have? 2 Information not available 03/11/2024 Are There Any Occupational Health Risks Where You Work? No [email or web address] Information not available 11/18/2024 What Is Your Relationship Status? Single Information not available 02/09/2023 Are You Sexually Active? Yes Information not available 02/09/2023 At What Age Did You Start Smoking Tobacco? 25 [email or web address] Information not available 11/18/2024 How Much Tobacco Do You Smoke? No [email or web address] Information not available 11/18/2024 Do You Use Any Illicit Or Recreational Drugs? No Information not available 03/11/2024 How Many Years Have You Smoked Tobacco? 3 [email or web address] Information not available 11/18/2024 Sex: Unknown Functional Status Question Answer Note LastModified by Organizat ion Details LastModified Time What is your exercise level? Occasional Information not available 02/09/2023 Mental Status None recorded. Family History Relationship Description Onset Age of this Age Resolved Age Notes LastModified by Organization Details LastModified Time Mother Depressive disorder [email or web address] Not available 2022 11:51:36 Mother Hypertensive disorder [email or web address] Not available 2022 11:51:36 Maternal Grandmother Depressive disorder [email or web address] Not available 2022 11:51:36 Maternal Grandmother Hypertensive disorder [email or web address] Not available 2022 11:51:36 Medical History Condition Response Other Cancer N High Blood Pressure N Colon Cancer N Cytomegalovirus N Hyperthyroidism N Herpes (HSV) N Breast Cancer N Blood Transfusion N MRSA N Lung [...] SNOMED-CT Code Diagnosis ICD10 Code Diagnosis Note [id number] SHOSHANA Westbrook [facility] [address] [place] [address] 02/09/2023 11:46:23 02/10/2023 08:58:56 Gynecologic examination 13043464 Z01.411 Pt educated on ACOG and ASCCP guidelines for breast, ovarian, and cervical cancer screenings . Exam WNL. Pt signed records release for prior [employer] records. Pt offered referral to PCP; pt declines. Pt encouraged to consider referral to PCP by 37 y/o d/t fam h/o CHTN. Plan for F/U PRN or for next WWE. Screening for malignant neoplasm of cervix 359406274 Z12.4 ASCCP guidelines reviewed with pt. Pap collected and sent. Further POC pending lab result review. Pt states understand ing of POC. Depression screening 171 280177 Z13.31 PHQ9: 17. Pt educated on abnormal [...] POC. 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 Pt offered non-pharma cologic [...] ing of POC. Venereal d isease screening 984323991 Z11.3 Pt educated on importance of condom use for protection against STD's. Samples collected and sent. Further POC pending lab result review. Pt states understand ing of POC. Intrauteri ne device check 437061424 Z30.431 Pt educated on risks Vs benefits of use, reviewed symptoms of Paragard use. Dosing schedule reviewed. Pt educated on bleeding profile of device, expulsion sx, and when to notify HCP/go to ER. Plan to F/U PRN or at next WWE. [id number] PABLO HESS [address] [address] 03/11/2024 15:00:59 03/14/2024 09:28:22 Removal of intrauterine contraceptive device 3139992524 Z30.432 Pt is here for Paragard IUD [...] at this time or once IUD removed. [id number] PABLO HESS [facility] [address] [place] [address] 05/31/2024 08:59:05 05/31/2024 18:39:11 Unprotected sexual intercourse 0126344 Z72.51 +UPT in office today 05/31/2024 Threatened miscarriage 42079027 O20.0 LMP 05/06/2024 per patientSta rted spotting [...] answered. Additional patient care was coordinate issa. [id number] SINA HESS[address] [address] 06/06/2024 15:21:46 06/07/2024 12:51:15 Missed miscarriage 40389558 O02.1 Quant level on 05/31 was 31, [...] with antibiotic s to RTC for TVUS. [id number] PABLO HESS [address] [address] 11/18/2024 15:08:30 11/18/2024 16:05:19 Gynecologic examination 48977516 Z01.419 Screening for malignant neoplasm of cervix 602169391 Z12.4 ASCCP guidelines reviewed with patient. No pap collected today. Pt states understand ing and is amenable to POC. Depression screening 171 670467 Z13.31 PHQ9: 19. Pt educated on abnormal scoring, and discussed recommenda tion for referral to psych for further management . [facility] [place] and then they dropped her saying they were out of network. Patient would like to see Kris also offered to refer to mental health [facility] in network with her insurance. Patient denies any thoughts of self harm. Advised if thoughts arise to seek care immediatel y. Pt voices understand ing and agreeable to POC. [id number] SHOSHANA Mcfarland [address] [address] 11/26/2024 10:30:36 11/28/2024 10:48:13 Generalized anxiety disorder 63118573 F41.1 Initiating escitalopr am as the patient reports having done well on it before and the medication is FDA-approv ed for AVERY and MDD. Off-label it is used for panic. Escitalopr am increases serotonin levels in the brain, which helps regulate mood and reduce anxiety.It is well-jamil ated with minimal drug interactio ns. Panic attack 909200906 F 41.0 Disturbanc e in sleep behavior [id number] G47.9 Hydroxyzin e, a first-gene ration antihistam ine with sedative and anxiolytic properties , is used for anxiety and sleep issues.Typ ical dosing is 25 50 mg PRN for anxiety or at bedtime for sleepSide effects include drowsiness , dry mouth, and dizziness. Persistent depressive disorder [id number] F34.1 Mental [facility] screening [id number] Z13.30 PHQ-9 score: 21GAD-7 score: 21 Health [...] 2020 (MEDICAID REPLACEMENT - HMO) da'Treion Rivers [id number] Datreion Rivers 05/31/2024 1 [employer] [place] - [place] ON OR AFTER 2020 (MEDICAID REPLACEMENT - HMO) da'Treion Rivers [id number] Datreion Rivers 06/06/2024 1 [employer] [place] AFTER 2020 (MEDICAID REPLACEMENT - HMO) da'Treion Rivers [id number] Datreion Rivers 11/18/2024 1 [facility] [id number] Datreion L Rivers [id number] Datreion Rivers 11/26/2024 1 [facility] [id number] Datreion L Rivers [id number] Datreion Rivers Notes Date Note Type Note [...] other contraception at this time. DIANE BRITO, INTEGRITY ENGINEER [address] [place], [address], [facility] [employer] IV 03/11/2024 16:04:08 05/31/2024 text/html Patient had IUD removed in March surgically. patient states she has normal periods since. However she bled longer this time and is still bleeding. LMP 05/06/24. Patient went to [place] and told them she thought she was but it would be to early to detect in Urine. They did a UPT anyway which was negative. Patient went home and waited 4 days and repeated the UPT at home and it had a faint line. Several days later the line was bright. The patient continues to bleed and cramp today. PABLO HESS [address] [facility], [place], [address], [facility] [employer] IV 05/31/2024 13:49:43 06/06/2024 text/html Kofi lewis is here today.Pt weighs 191lbsPts B/P 120/60Pt is here for miscarriage from last visit, is still spotting occasionally. Is having foul odor with spotting. Pain is well controlled with Naproxen given at last visit. PABLO HESS [address] [facility], [place], [address], [facility] [employer] IV 06/06/2024 16:43:04 11/18/2024 text/html Annual GYNReport [...] Pt has no other concerns. PABLO HESS [address] [place], [address], [facility] 11/18/2024 15:48:39 11/26/2024 text/html The visit is [...] (2022) Caused insomnia and increased anxiety. Lexapro [place] better at 5 mg for three months [...] and depression. Social History:She works full-time at [employer] and is a single mother of two children, ages 10 and 14. SHOSHANA Mcfarland [address] [facility], [place], [address], [facility] 11/27/2024 12:17:21 OBGyn Episode Ob Episode Information Episode Created Date Number of Fetuses Patient Bloodtype Patient rh Status Prepregnancy Weight lbs Domestic Partner Domestic Partner Phone Father Name Manager Community Relations Status 02/10/20 23 1 CLOSED Fetus Data First Name Last Name Admitted to NICU Weight (g) Sex Living Outcome Pediatric Complications Fetus ID Race Codes Race Delivery Type F Full Term [id number] Michele Calculation Initial Michele Date Initial Exam [...] Domestic Partner Domestic Partner Phone Father Name Manager Community Relations Status 02/10/20 23 1 CLOSED Fetus Data First Name Last Name Admitted to NICU Weight (g) Sex Living Outcome Pediatric Complications Fetus ID Race Codes Race Delivery Type F Full Term [id number] Michele Calculation Initial Michele Date Initial Exam [...]
--- OUTSIDE RECORDS SUMMARY | 2025-01-03 16:01 | XMS_ITS | Clinical Summary ---
Author Organization [facility] Address [address] [place] [address] Care Team Providers Care Air Brake Worker Name Role Phone Non-Staff, Provider Primary [...] 2:19 PM 03/23/2024 6:20 PM Care Teams Air Brake Worker Relationship Specialty Start Date End Date Non-Staff, Provider PCP - General UNKNOWN PHYSICIAN SPECIALTY 03/23/24
--- OUTSIDE RECORDS SUMMARY | 2025-01-03 16:02 | XMS_ITS | Clinical Summary ---
Author Organization [facility] Address [address] [facility] [place] [address] Care Team Providers Care Army Senior Officer Name Role Phone TheresaAnkita modiron GUZMAN Primary Care Provider Miller Zamora MD Unavailable [phone] Darryl Starr DO Unavailable Source Comments [facility],non-owned Affiliates and Associated Physician Practices is amultiple site organization consisting of ambulatory clinics and hospital sitesin [place], [place], [place] and [place]. This disclosure is being madepursuant to the Care Everywhere program and may not contain all information available regarding this patient. Last updated 18.[facility] Allergies Active Allergy Reactions Criticality Noted Date [...] on file Legal Sex Female 5:37 AM METAL FURNACE OPERATOR Gender Identity Not on file Sexual Orientation Not on file Last Filed Vital Signs Vital Sign Reading Time Taken Comments Blood Pressure 128/84 09/24/2021 2:07 PM METAL FURNACE OPERATOR Pulse 93 09/24/2021 2:07 PM METAL FURNACE OPERATOR Temperature 37.2 C (98.9 F) 09/24/2021 2:07 PM METAL FURNACE OPERATOR Respiratory Rate 18 09/24/2021 2:07 PM METAL FURNACE OPERATOR Oxygen Saturation 99% 09/24/2021 2:07 PM METAL FURNACE OPERATOR Inhaled Oxygen Concentration 98% 11/25/2020 4 :20 PM CDT Weight 86.2 kg (190 lb) 09/24/2021 2:07 PM METAL FURNACE OPERATOR Height 162.6 cm (5' 4 ) 09/24/2021 2:07 PM METAL FURNACE OPERATOR Body Mass Index 32.61 09/24/2021 2:07 PM METAL FURNACE OPERATOR Plan of Treatment Health Maintenance Due Date [...] this topic Medical Devices Implanted Type Area Process Equipment Operator Device Identifier Shelf Expiration Date Model / Serial / Lot Stent Uret 6fr 24cm Pgtl Crv Tpr Tip - [id number] Implanted:Qty: 1 on 01/14/2021 by Miller Zamora MD at [facility] Stent Right: Ureter [place] [employer] Scim[employer] 09/19/2023 [id number] / [id number] / [id number] Stent Uret 6fr 24cm 2 Drmtr Bldr Loop Implanted:Qty: 1 on 11/25/2020 by Miller Zamora MD at [facility] Right: Ureter [place] [employer] Scimed 01/08/2023 [id number] / / Procedures Procedure Name Priority Date/Time Associated Diagnosis Comments PAP IG LB RFLX HPV APTIMA ASCU Routine 07/01/2021 4:04 PM CDT Well woman exam from Last 3 Months or Most Recently Relevant to Health Maintenance Results * PAP IG LB RFLX HPV APTIMA ASCU (07/01/2021 4:04 PM CDT) Diagnosis [facility] INSURANCE BILL Comment: NEGATIVE FOR INTRAEPITHELIAL LESION OR MALIGNANCY. TRICHOMONAS VAGINALIS IS PRESENT. Specimen Adequacy [facility] INSURANCE BILL Comment: Satisfactory for evaluation. Endocervical and/or squamous metaplastic cells (endocervical component) are present. Clinician Provided ICD10 [facility] INSURANCE BILL Comment: Z01.419 N20.0 N76.1 Performed by [employer] INSURANCE BILL Comment:Libby montgomery, Telesales Agent (ASCP) Comment . [facility] INSURANCE BILL Note [facility] INSURANCE BILL Comment: The Pap smear is [...] use of an image guided system. Note [facility] INSURANCE BILL Comment: The HPV DNA reflex criteria were not met with this specimen result therefore, no HPV testing was performed. . Pathology/Cytolog y PART OF UTERINE CERVIX / Unknown 07/01/2021 4:04 PM CDT 07/02/2021 Narrative [facility] INSURANCE BILL - 07/03/2021 5:08 PM CDT No. of containers..01 ThinPrep Vial Resulting Agency Comment Lab Testing performed at: Lab[address] [place] [id number] Javilaurasheila Starr DO LAB - PATHOLOGY/CYTOLOGY ORDERAB LES Final Result [facility] INSURANCE BILL [address] [place] [address] from Last 3 Months or Most Recently Relevant to Health Maintenance Insurance MEDICAID - OUT OF STATE Advance Directives * Full Code (Latest Code Status on File) Date Activated Date Inactivated Comments 10/20/2015 9:32 AM 10/20/2015 9:32 AM Care Teams Army Senior Officer Relationship Specialty Start Date End Date Citlaly Ramos DO PCP - General Family Medicine 02/21/21 Miller Zamora MD [address] [place] [address] Urology 02/21/21 Darryl Starr DO [address] [facility] Reina [facility] [place] [address] Obstetrics and Gynecology 07/04/21
== END 2025-01-03 14:28 | disposition home or self-care (01) ==
LOC: ANHIMG 14:30
PROVIDERS: Visit Provider Urology
DX: N20.0 Calculus of kidney (principal); N30.00 Acute cystitis without hematuria
CPT/HCPCS: 74018

== ENCOUNTER 2025-05-01 21:38 | Emergency (ER) | payer OTHER, SELFPAY ==
--- OUTSIDE RECORDS SUMMARY | 2019-03-02 05:00 | XMS_ITS | Continuity of Care Document ---
Author Organization [facility] Address [address] [place] [address] Phone Care Team Providers Care Unix Manager Name Role Phone Unavailable Unavailable Unavailable Procedures Procedure Date Extraction erupted tooth or exposed root Limit Oral Evaluation- problem focused J Periapical Radiographic, first Image Feb Advance Directives Directive Yes / No Effective Date File Name No Information Encounters Encounter Description Practice Location Reason(s) For Visit Diagnoses Date Provider Providers [facility] , [address], [place], [place], [id number], tel:[phone] [facility] Dental caries on pit and fissure surface penetrat into pulp No Information Referring Provider: Ervin Clayton, [address], [place], [address]. tel:[phone] Family History Family Member Type Diagnosis Age At Onset No Information Payers Payer name Insurance type Covered libertarian ID Authoriza tion(s) No Information Social History Type Description Quantity Date Captured Comments Sex Female Smoking Status No Information Chief Complaint And Reason For Visit No Information Reason For Referral Reason For Referral No Information History Of Present Illness Encounter Date Complaint History Of Prese nt Illness No Information Functional Status Date Functional Assessmen t No Information Instructions Date Instruction Additional Infor mation No Information Assessments Type Assessment Date No Information Patient Care Teams Name Effective Dates (start - stop) Status Members No Information
[2025-05-01 21:39] VITALS: BP 137/81; PULSE 97; RESP 20; TEMP 37.1; O2SAT 100
--- OUTSIDE RECORDS SUMMARY | 2025-05-01 23:55 | XMS_ITS | Clinical Summary ---
Author Organization [facility] [employer] Address [address] [facility] [place] [address] Care Team Providers Care Supply Chain Vice President Name Role Phone TheresaAnkita modiron GUZMAN Primary Care Provider [phone] Miller Zamora MD Unavailable [phone] Darryl Starr DO Unavailable Source Comments [facility],non-owned Affiliates and Associated Physician Practices is amultiple site organization consisting of ambulatory clinics and hospital sitesin [place], [place], [place] and [place]. This disclosure is being madepursuant to the Care Everywhere program and may not contain all information available regarding this patient. Last updated 18.[facility] Allergies Active Allergy Reactions Criticality Noted Date [...] on file Legal Sex Female 5:37 AM CORN HUSKER MACHINE OPERATOR Gender Identity Not on file Sexual Orientation Not on file Last Filed Vital Signs Vital Sign Reading Time Taken Comments Blood Pressure 128/84 09/24/2021 2:07 PM CORN HUSKER MACHINE OPERATOR Pulse 93 09/24/2021 2:07 PM CORN HUSKER MACHINE OPERATOR Temperature 37.2 C (98.9 F) 09/24/2021 2:07 PM CORN HUSKER MACHINE OPERATOR Respiratory Rate 18 09/24/2021 2:07 PM CORN HUSKER MACHINE OPERATOR Oxygen Saturation 99% 09/24/2021 2:07 PM CORN HUSKER MACHINE OPERATOR Inhaled Oxygen Concentration 98% 11/25/2020 4 :20 PM CDT Weight 86.2 kg (190 lb) 09/24/2021 2:07 PM CORN HUSKER MACHINE OPERATOR Height 162.6 cm (5' 4) 09/24/2021 2:07 PM CORN HUSKER MACHINE OPERATOR Body Mass Index 32.61 09/24/2021 2:07 PM CORN HUSKER MACHINE OPERATOR Plan of Treatment Health Maintenance Due Date Last Done Comments HIV SCREENING 02/17/2007 HEPATITIS C SCREENING 02/13/2010 HEPATITIS B VACCINE (1 of 3 - 19+ 3-dose series) 02/17/2011 HPV VACCINE (1 - 3-dose SCDM series) 02/17/2019 PAP SMEAR 07/01/2022 07/01/2021 COVID-19 VACCINE (2 - 2023-2 5 season) 2024 08/13/2021 DTAP/TDAP/TD VACCINES (2 - T d or Tdap) 07/04/2024 07/04/2014 DEPRESSION SCREENING 09/07/2024 02/21/2021 INFLUENZA VACCINE (#1) 2025 06/20/2014 ZOSTER VACCINE (1 of 2) 02/17/2042 HIB [...] this topic Medical Devices Implanted Type Area Supervisor Frame Sample And Pattern Device Identifier Shelf Expiration Date Model / Serial / Lot Stent Uret 6fr 24cm Pgtl Crv Tpr Tip - [id number] Implanted:Qty: 1 on 01/14/2021 by Miller Zamora MD at [facility] Stent Right: Ureter [place] [employer] Sc[employer] 09/19/2023 [id number] / [id number] / [id number] Stent Uret 6fr 24cm 2 Drmtr Bldr Loop Implanted:Qty: 1 on 11/25/2020 by Miller Zamora MD at [facility] Right: Ureter [place] [employer] 01/08/2023 [id number] / / Procedures Procedure Name Priority [...] (endocervical component) are present. Clinician Provided ICD10 [facility] INSURANCE BILL Comment: Z01.419 N20.0 N76.1 Performed by [facility] INSURANCE BILL Comment:Libby montgomery, Apprentice Jockey (ASCP) Comment . [facility] INSURANCE BILL Note [facility] INSURANCE BILL Comment: The Pap smear is [...] use of an image guided system. Note [facility] INSURANCE BILL Comment: The HPV DNA reflex criteria were not met with this specimen result therefore, no HPV testing was performed. . Pathology/Cytolog y PART OF UTERINE CERVIX / Unknown 07/01/2021 4:04 PM CDT 07/02/2021 Narrative [facility] INSURANCE BILL - 07/03/2021 5:08 PM CDT No. of containers..01 ThinPrep Vial Resulting Agency Comment Lab Testing performed at: Lab[address] [place] [id number] Darryl Starr DO LAB - PATHOLOGY/CYTOLOGY ORDERAB LES Final Result [facility] INSURANCE BILL [address] [place] [address] from Last 3 Months or Most Recently Relevant to Health Maintenance Insurance MEDICAID - OUT OF STATE Advance Directives * Full Code (Latest Code Status on File) Date Activated Date Inactivated Comments 10/20/2015 9:32 AM 10/20/2015 9:32 AM Care Teams Supply Chain Vice President Relationship Specialty Start Date End Date Citlaly Ramos DO PCP - General Family Medicine 02/21/21 Miller Zamora MD [address] [place] [phone] Urology 02/21/21 Darryl Starr DO [address] [facility] Reina [place] [address] Obstetrics and Gynecology 07/04/21
--- OUTSIDE RECORDS SUMMARY | 2025-05-01 23:55 | XMS_ITS | Clinical Summary ---
Author Organization [facility] Address [address] [place] [address] Care Team Providers Care Locum Tenens Psychiatrist Name Role Phone Non-Staff, Provider Primary Care [...] A M CDT Height 162.6 cm (5' 4) 03/23/2024 9:00 AM CDT Body Mass Index 32.47 03/23/2024 9:00 AM CDT Plan of Treatment Health Maintenance Due Date Last Done Comments Cervical Cancer Screening Pa p Smear (Age 30 to 64) Every 3 Years 1992 Annual Physical 02/17/1995 Hepatitis C 02/17/2010 Hepatitis B Vaccines (1 of 3 - 19+ 3-dose series) 02/17/2011 HPV Vaccines (1 - 3-dose SCD M series) 02/17/2019 Cervical Cancer Screening Pa p with HPV Testing (Age 30 to 64) Every 5 Years 02/17/2022 Cervical Cancer Screening wi th HPV 02/17/2022 COVID-19 Vaccine (2023-2 5 season) 2024 02/25/2023, 08/13/2021 DTaP, Tdap and Td Vaccines ( 3 - Td or Tdap) 01/26/2033 01/26/2023, 07/04/2014 Meningococcal B Vaccine Aged Out No l [...] 2:19 PM 03/23/2024 6:20 PM Care Teams Locum Tenens Psychiatrist Relationship Specialty Start Date End Date Non-Staff, Provider PCP - General UNKNOWN PHYSICIAN SPECIALTY 03/23/24
== END 2025-05-02 00:35 | disposition left against medical advice (07) ==
DX: O04.6 Delayed or excessive hemorrhage following (induced) termination of pregnancy (principal)
CPT/HCPCS: 99199

== ENCOUNTER 2025-08-27 01:11 | Emergency (ER) | payer OTHER, SELFPAY ==
[2025-08-27] VITALS (28 sets, daily range): BP systolic 105–134; BP diastolic 61–97; PULSE 61–87; RESP 16–20; TEMP 36.4–36.8; O2SAT 93–100
--- NOTE | ~2025-08-27 | CT_ITS ---
CT abdomen pelvis w con Clinical History: abd pain . Comparison: 12/09/2024 Technique: Axial images lung bases to symphysis pubis IV contrast information not listed in PACS Coronal, sagittal reformats CT images acquired with automatic exposure control for dose reduction DLP: 575 mGy-cm Findings: Lung bases: Clear. Visualized heart and pericardium: Unremarkable. Liver: Steatosis. Gallbladder: Unremarkable. Spleen: Unremarkable. Pancreas: Unremarkable. Adrenal glands: Unremarkable. Kidneys: Horseshoe kidney Right moiety- No hydronephrosis. Stones stones. Left moiety- No hydronephrosis. No renal stones. Distal esophagus/stomach: Unremarkable. Small bowel loops: Normal caliber and wall thickness. Colon: Diverticula. Apparent wall thickening proximal loops but under distended. Normal appendix, subhepatic. Nodes: No enlarged nodes. Peritoneum: No ascites. No free air. Urinary bladder: Unremarkable. Uterus: Unremarkable. Adnexa: No masses. Bones: No acute bony abnormality. Soft tissues: Unremarkable. Aorta: No aneurysm or dissection. IVC: Unremarkable. Main portal vein/SMV/splenic vein: Patent. IMPRESSION: 1. Mild colitis not excluded. 2. Horseshoe kidney with right-sided stones. No hydronephrosis. 3. Additional findings as above. Reviewed, dictated and finalized at location R. IST DANCER
--- OUTSIDE RECORDS SUMMARY | 2025-08-27 01:14 | XMS_ITS | Clinical Summary ---
Author Organization [facility] Address [address] [facility] [place] [address] Care Team Providers Care Process Designer Name Role Phone TheresaAnkita modiron GUZMAN Primary Care Provider [phone] Miller Zamora MD Unavailable [phone] Darryl Starr DO Unavailable Source Comments [facility],non-owned Affiliates and Associated Physician Practices is amultiple site organization consisting of ambulatory clinics and hospital sitesin [place], [place], [place] and [place]. This disclosure is being madepursuant to the Care Everywhere program and may not contain all information available regarding this patient. Last updated 18.[facility] Allergies Active Allergy Reactions Criticality Noted Date [...] on file Legal Sex Female 5:37 AM PHOTOVOLTAIC PANEL INSTALLER Gender Identity Not on file Sexual Orientation Not on file Last Filed Vital Signs Vital Sign Reading Time Taken Comments Blood Pressure 128/84 09/24/2021 2:07 PM PHOTOVOLTAIC PANEL INSTALLER Pulse 93 09/24/2021 2:07 PM PHOTOVOLTAIC PANEL INSTALLER Temperature 37.2 C (98.9 F) 09/24/2021 2:07 PM PHOTOVOLTAIC PANEL INSTALLER Respiratory Rate 18 09/24/2021 2:07 PM PHOTOVOLTAIC PANEL INSTALLER Oxygen Saturation 99% 09/24/2021 2:07 PM PHOTOVOLTAIC PANEL INSTALLER Inhaled Oxygen Concentration 98% 11/25/2020 4 :20 PM CDT Weight 86.2 kg (190 lb) 09/24/2021 2:07 PM PHOTOVOLTAIC PANEL INSTALLER Height 162.6 cm (5' 4) 09/24/2021 2:07 PM PHOTOVOLTAIC PANEL INSTALLER Body Mass Index 32.61 09/24/2021 2:07 PM PHOTOVOLTAIC PANEL INSTALLER Plan of Treatment Health Maintenance Due Date Last Done Comments HIV SCREENING 02/17/2007 HEPATITIS C SCREENING 02/13/2010 HEPATITIS B VACCINE (1 of 3 - 19+ 3-dose series) 02/17/2011 HPV VACCINE (1 - 3-dose SCDM series) 02/17/2019 PAP SMEAR 07/01/2022 07/01/2021 DTAP/TDAP/TD VACCINES (2 - T d or Tdap) 07/04/2024 07/04/2014 DEPRESSION SCREENING 09/07/2024 02/21/2021 COVID-19 VACCINE (2 - 2024-2 6 season) 2025 08/13/2021 INFLUENZA VACCINE (#1) 2025 06/20/2014 ZOSTER VACCINE [...] this topic Medical Devices Implanted Type Area Mud Mill Tender Device Identifier Shelf Expiration Date Model / Serial / Lot Stent Uret 6fr 24cm Pgtl Crv Tpr Tip - [id number] Implanted:Qty: 1 on 01/14/2021 by Miller Zamora MD at [facility] Stent Right: Ureter [place] [employer] Scimed 09/19/2023 [id number] / [id number] / [id number] Stent Uret 6fr 24cm 2 Drmtr Bldr Loop Implanted:Qty: 1 on 11/25/2020 by Miller Zamora MD at [facility] Right: Ureter [place] [employer] Scimed 01/08/2023 [id number] / / Procedures Procedure Name Priority [...] (endocervical component) are present. Clinician Provided ICD10 [facility] INSURANCE BILL Comment: Z01.419 N20.0 N76.1 Performed by [facility] INSURANCE BILL Comment:Libby montgomery, Cork Sorter (ASCP) Comment . [facility] INSURANCE BILL Note [facility] INSURANCE BILL Comment: The Pap smear is [...] use of an image guided system. Note [facility] INSURANCE BILL Comment: The HPV DNA reflex criteria were not met with this specimen result therefore, no HPV testing was performed. . Pathology/Cytolog y PART OF UTERINE CERVIX / Unknown 07/01/2021 4:04 PM CDT 07/02/2021 Narrative [facility] INSURANCE BILL - 07/03/2021 5:08 PM CDT No. of containers..01 ThinPrep Vial Resulting Agency Comment Lab Testing performed at: [address] [place] [id number] Darryl Starr DO LAB - PATHOLOGY/CYTOLOGY ORDERAB LES Final Result [facility] INSURANCE BILL [address] [place] [address] from Last 3 Months or Most Recently Relevant to Health Maintenance Insurance MEDICAID - OUT OF STATE Advance Directives * Full Code (Latest Code Status on File) Date Activated Date Inactivated Comments 10/20/2015 9:32 AM 10/20/2015 9:32 AM Care Teams Process Designer Relationship Specialty Start Date End Date Citlaly Ramos DO PCP - General Family Medicine 02/21/21 Miller Zamora MD [address] [place] [phone] Urology 02/21/21 Darryl Starr DO [address] [facility] [address] [facility] [place] [address] Obstetrics and Gynecology 07/04/21
--- OUTSIDE RECORDS SUMMARY | 2025-08-27 01:14 | XMS_ITS | Clinical Summary ---
Author Organization [facility] Address [address] [place] [address] Care Team Providers Care Surveillance Investigator Name Role Phone Non-Staff, Provider Primary Care [...] th HPV 02/17/2022 COVID-19 Vaccine ( - 2024-2 6 season) 2025 02/25/2023, 08/13/2021 Influenza Adult (#1) 2025 02/25/2023, 06/20/2014 DTaP, Tdap and Td Vaccines ( 3 - Td or Tdap) 01/26/2033 01/26/2023, 07/04/2014 Hepatitis A Vaccines Completed 01/24/2009, 01/26/2008 Meningococcal B Vaccine Aged Out No l [...] patient's age to complete this topic Insurance MEDICAID Advance Directives * Full Code (Latest Code Status on File) Date Activated Date Inactivated Comments 03/23/2024 2:19 PM 03/23/2024 6:20 PM Care Teams Surveillance Investigator Relationship Specialty Start Date End Date Non-Staff, Provider PCP - General UNKNOWN PHYSICIAN SPECIALTY 03/23/24
[2025-08-27 05:42] LABS: Add Urine Microscopic? YES; Appearance Urine Cloudy (Clear); Glucose Urine UA Negative (Negative); Leukocyte Esterase Ur 1+ LEU/UL (Negative); Nitrate Urine Negative (Negative); Specific Grav Ur 1.023 (1.001-1.035)
[2025-08-27 05:44] LABS: Non Pathogenic Casts 0-2
[2025-08-27 05:56] LABS: Need Manual Microscopic Reviewed
[2025-08-27 06:10] LABS: Hematocrit 36.4 % (37.0-47.0); Hemoglobin 12.0 g/dL (12.0-15.0); Immature Granulocyte Percent A 0.4 % (0-0.5); Lymphocytes Absolute Auto 2.04 K/mm3 (0.9-3.2); Mean Corpuscular HGB Conc 33.0 g/dl (32-36); Mean Corpuscular Hemoglobin 26.4 pg (26-34); Mean Corpuscular Volume 80.0 fl (80-100); Nucleated Red Blood Cells Absolute Auto 0.000 K/mm3 (0.0-0.012); Nucleated Red Blood Cells Perc 0.0 % (0.0-0.2); Platelet Count Result 360 k/mm3 (150-375); Red Blood Count 4.55 M/mm3 (4.2-5.4); White Blood Count 5.6 K/mm3 (4.5-10.0)
[2025-08-27 06:15] LABS: Pregnancy On Board Control Positive
[2025-08-27 06:21] LABS: Alanine Aminotransferase 12 U/L (6-35); Albumin Level 4.2 g/dL (3.5-5.1); Alkaline Phosphatase 62 U/L (38-126); Anion Gap 6 mmol/L (4-12); Aspartate Amino Transferase 20 U/L (14-36); Bilirubin,Total 0.9 mg/dL (0.2-1.3); Blood Urea Nitrogen 12 mg/dL (7-17); Calcium 9.1 mg/dL (8.4-10.2); Carbon Dioxide 27 mmol/L (22-30); Chloride 105 mmol/L (98-107); Estimated CRCL calculation 98 ml/min; Estimated Glomerular Filt Rate > 60; Glucose 88 mg/dL (65-110); Lipase 73 U/L (23-300); Potassium 2.9 mmol/L (3.4-5.0); Sodium 138 mmol/L (137-145); Total Protein 7.3 g/dL (6.3-8.2)
[2025-08-27] MEDS: KETOROLAC 15 MG/ML VIAL (*BKC) IV PUSH (07:51)
[2025-08-27] MEDS: SODIUM CHLORIDE 0.9% IV 1,000 ML 999 ML IV CONT (07:51)
--- OUTSIDE RECORDS SUMMARY | 2025-08-27 08:30 | XMS_ITS | Clinical Summary ---
Author Organization [facility] Address [address] [facility] [place] [address] Care Team Providers Care Breeding Manager Name Role Phone TheresaAnkita modiron GUZMAN Primary Care Provider [phone] Miller Zamora MD Unavailable [phone] Darryl Starr DO Unavailable Source Comments [facility],non-owned Affiliates and Associated Physician Practices is amultiple site organization consisting of ambulatory clinics and hospital sitesin [place], [place], [place] and [place]. This disclosure is being madepursuant to the Care Everywhere program and may not contain all information available regarding this patient. Last updated 18.[facility] Allergies Active Allergy Reactions Criticality Noted Date [...] on file Legal Sex Female 5:37 AM TELECOMMUNICATIONS CABLE JOINTER Gender Identity Not on file Sexual Orientation Not on file Last Filed Vital Signs Vital Sign Reading Time Taken Comments Blood Pressure 128/84 09/24/2021 2:07 PM TELECOMMUNICATIONS CABLE JOINTER Pulse 93 09/24/2021 2:07 PM TELECOMMUNICATIONS CABLE JOINTER Temperature 37.2 C (98.9 F) 09/24/2021 2:07 PM TELECOMMUNICATIONS CABLE JOINTER Respiratory Rate 18 09/24/2021 2:07 PM TELECOMMUNICATIONS CABLE JOINTER Oxygen Saturation 99% 09/24/2021 2:07 PM TELECOMMUNICATIONS CABLE JOINTER Inhaled Oxygen Concentration 98% 11/25/2020 4 :20 PM CDT Weight 86.2 kg (190 lb) 09/24/2021 2:07 PM TELECOMMUNICATIONS CABLE JOINTER Height 162.6 cm (5' 4) 09/24/2021 2:07 PM TELECOMMUNICATIONS CABLE JOINTER Body Mass Index 32.61 09/24/2021 2:07 PM TELECOMMUNICATIONS CABLE JOINTER Plan of Treatment Health Maintenance Due Date [...] this topic Medical Devices Implanted Type Area Press Assistant And Feeder Device Identifier Shelf Expiration Date Model / Serial / Lot Stent Uret 6fr 24cm Pgtl Crv Tpr Tip - [id number] Implanted:Qty: 1 on 01/14/2021 by Miller Zamora MD at [facility] Stent Right: Ureter [place] [employer] Scim[employer] 09/19/2023 [id number] / [id number] / [id number] Stent Uret 6fr 24cm 2 Drmtr Bldr Loop Implanted:Qty: 1 on 11/25/2020 by Miller Zamora MD at [facility] Right: Ureter [place] [employer] 01/08/2023 [id number] / / Procedures Procedure Name Priority [...] (endocervical component) are present. Clinician Provided ICD10 [facility] INSURANCE BILL Comment: Z01.419 N20.0 N76.1 Performed by [facility] INSURANCE BILL Comment:Libby montgomery, Aligning Inspector (ASCP) Comment . [facility] INSURANCE BILL Note [facility] INSURANCE BILL Comment: The Pap smear is [...] use of an image guided system. Note [facility] INSURANCE BILL Comment: The HPV DNA reflex criteria were not met with this specimen result therefore, no HPV testing was performed. . Pathology/Cytolog y PART OF UTERINE CERVIX / Unknown 07/01/2021 4:04 PM CDT 07/02/2021 Narrative [facility] INSURANCE BILL - 07/03/2021 5:08 PM CDT No. of containers..01 ThinPrep Vial Resulting Agency Comment Lab Testing performed at: [address] [place] [id number] Darryl Starr DO LAB - PATHOLOGY/CYTOLOGY ORDERAB LES Final Result [facility] INSURANCE BILL [address] [place] [address] from Last 3 Months or Most Recently Relevant to Health Maintenance Insurance MEDICAID - OUT OF STATE Advance Directives * Full Code (Latest Code Status on File) Date Activated Date Inactivated Comments 10/20/2015 9:32 AM 10/20/2015 9:32 AM Care Teams Breeding Manager Relationship Specialty Start Date End Date Citlaly Ramos DO PCP - General Family Medicine 02/21/21 Miller Zamora MD [address] [place] [phone] Urology 02/21/21 Darryl Starr DO [address] [facility] [place] [address] Obstetrics and Gynecology 07/04/21
--- OUTSIDE RECORDS SUMMARY | 2025-08-27 08:30 | XMS_ITS | Clinical Summary ---
Author Organization [facility] Address [address] [place] [address] Care Team Providers Care Test Design Engineer Name Role Phone Non-Staff, Provider Primary Care [...] 2:19 PM 03/23/2024 6:20 PM Care Teams Test Design Engineer Relationship Specialty Start Date End Date Non-Staff, Provider PCP - General UNKNOWN PHYSICIAN SPECIALTY 03/23/24
--- OUTSIDE RECORDS SUMMARY | 2025-08-27 08:30 | XMS_ITS | Clinical Summary ---
Author Organization [facility] Address [address] [place] [id number] Care Team Providers Care Food Chemist Name Role Phone Citlaly Ramos DO Primary Care Provider [phone] Allergies Active Allergy Reactions Criticality Noted Date [...] a day 90 tablet 11 2 Active cyclobenzaprine (FLEXERIL) 5 mg tablet Take 1 tablet (5 mg total) by mouth 3 (three) times a day as needed for muscle spasms 30 tablet 5 Active norgestimate-et hinyl estradioL (ORTHO-CYCLEN) 0.25-0.035 mg per tablet Take 1 tablet by mouth daily Take 3 tablets a day for three days, then take 2 tablets a day for two days followed by 1 pill daily. Skip placebo week. 28 tablet 12 5 05/23/20 26 Active Active Problems Comments Yes No known active problems Surgical History Surgery Date Site/Laterality Comments CYSTOSCOPY INSERTION / REMOVAL STENT / STONE Medical History Medical History Date Comments Asthma no inhaler in ye ars Depression Anxiety Family History Medical History Relation [...] more drinks on one occasion? Never 10/14/2021 Humiliation, Afraid, Rape, and Kick questionnair e Answer Date Recorded Within the last year, have y ou been afraid of your partner or ex-partner? No 05/23/2025 Within the last year, have y ou been humiliated or emotionally abused in other ways by your partner or ex-partner? No Within the last year, have y ou been kicked, hit, slapped, or otherwise physically hurt by your partner or ex-partner? No 05/23/2025 Within the last year, have y ou been raped or forced to have any kind of sexual activity by your partner or ex-partner? No 05/23/2025 Personal Safety Answer Date Recorded Have you ever been in or are you currently in a harmful physical or emotional relationship or is someone making you feel afraid or unsafe? 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 See encounter summary. Last Filed Vital Signs Vital Sign Reading Time Taken Comments Blood Pressure 125/89 05/23/2025 12:12 AM CDT Pulse 73 05/23/2025 12:12 AM CDT Temperature 37 C (98.6 F) 05/23/2025 12:12 AM CDT Respiratory Rate 18 05/23/2025 12:12 AM CDT Oxygen Saturation 98% 05/23/2025 12:12 AM CDT Inhaled Oxygen Concentration - - Weight 89.8 kg (198 lb) 05/23/2025 12:12 AM CDT Height 162.6 cm (5' 4) 05/23/2025 12:12 AM CDT Body Mass Index 33.99 05/23/2025 12:12 AM CDT Plan of Treatment Health Maintenance Due Date Last Done Comments Cervical Cancer Screening 1992 Depression Screening 1992 Varicella Vaccines (1 of 2 - 13+ 2-dose series) 02/17/2005 Regular Well Visit/Exam 18-64 02/17/2010 Pneumococcal vaccine <65 (1 of 2 - PCV) 02/17/2011 HPV Vaccines (1 - 3-dose SCDM series) 02/17/2019 DTaP/Tdap/Td Vaccine (2 - Td or Tdap) 07/04/2024 Covid-19 Vaccine (2 - 2024- season) 05/08/202503/2021 Influenza Vaccine (#1) 2025 4, 09/07/2010, 07/16/2010 Hepatitis B Screening Completed 09/07/1999 Hepatitis C Screening Completed 01/16/2014 Medical Devices Explanted Type Area Sql Engineer Device Identifier Shelf Expiration Date Model / Serial / Lot Ureteral Stent Explanted:Qty: 1 on 10/16/2021 by Tye Woods MD at [facility] Right: Urethra Other [employer] [id number] Universa 6fr 24cm Radiopaque Positioner Monofilament Tether - [id number] Implanted:Qty: 1 on 10/16/2021 by Tye Woods MD at [facility] Explanted:Qty: 1 on 10/21/2021 by Tye Woods MD Right: Urethra [employer] [id number] 07/22/2024 [id number] / / [id number] Procedures Procedure Name Priority Date/Time Associated Diagnosis [...] to request sample to be sent to [facility] for Hepatitis C Virus (HCV) RNA Detection and Quantitation by Real-Time Reverse Duralumin Metalworker-PCR (RT-PCR). Current interpretive data was last revised on 2011 Aicha Bucio [facility] BLOOD ORDERABLES Final Result HISTORICAL RESULTS from Last 3 Months or Most Recently Relevant to Health Maintenance Insurance ID[place] [employer] [place] Care Teams Food Chemist Relationship Specialty Start Date End Date Citlaly Ramos DO [address] [place] [address] [place] [id number] PCP - General Family Medicine 10/03/21
--- NOTE | 2025-08-27 09:53 | ED_ITS ---
HPI - General Adult General Chief complaint: Nausea/Vomiting/Diarrhea Stated complaint: n/vx5 days, abd pain Time Seen by Provider: 08/27/25 07:07 Source: patient Mode of arrival: ambulatory Limitations: no limitations History of Present Illness HPI narrative: 35-year-old with a history of horseshoe kidneys, kidney stone presents to the ER with a complains of nausea, vomiting, abdominal pain mostly in the midepigastric area . Denies any fever or chills. Onset (ago): day(s) (1) Location: abdomen Radiation: non-radiation Severity: moderate Quality: aching Pain Consistency: constant Relieving factors: none Exacerbating factors: none Associated symptoms: denies other symptoms Treatments prior to arrival: none Related Data Allergies Allergy/AdvReac Type Severity Reaction Status Date / Time amoxicillin (From Augmentin) Allergy Hives Verified 08/27/25 01:17 clavulanic acid (From Allergy Hives Verified 08/27/25 01:17 Augmentin) hydrocodone (From Vicodin) Allergy Hives Verified 08/27/25 01:17 Review of Systems 2 Review of Systems: All systems reviewed & are unremarkable except as noted in HPI and below Constitutional: Constitutional: Reports no additional constitutional complaints Eyes: Eyes: Reports no additional eye complaints ENT: Reports system reviewed and no additional complaints, except as documented Cardiovascular: Cardiovascular: Reports no additional cardiovascular complaints Respiratory: Respiratory: Reports no additional respiratory complaints Gastrointestinal: Gastrointestinal: Reports as per HPI Musculoskeletal: Musculoskeletal: Reports no additional musculoskeletal complaints Neurologic: Reports system reviewed and no additional complaints, except as documented PMFSH Past Medical History Medical History Anxiety and depression Eczema Overweight (BMI 25.0-29.9) Social History Social History Years smoked: 2 Tobacco type: e-cigarettes/vaping Living arrangements: alone Spiritual care concerns: No Exam 2 Narrative: GENERAL: Well-appearing, well-nourished, and in no acute distress. HEAD: Normocephalic, atraumatic. EYES: PERRLA and EOMI. ENT: Nares clear, no rhinorrhea or epistaxis. Mucous membranes moist. NECK: Supple. CHEST: Clear to auscultation. No respiratory distress. HEART: Regular rate and rhythm. No murmur heard. Normal peripheral pulses. ABDOMEN: Soft, mild epigastric tenderness, nondistended, normal active bowel sounds. EXTREMITIES: Normal range of motion. No edema. SKIN: Warm, dry, no rash. NEURO: No focal deficits. Alert and oriented x3. PSYCH: Normal mood and affect. Course Course Emergency Course: Patient was given IV fluids, Zofran for nausea and Toradol for pain control. Did obtain labs and CT which seem to be unremarkable. Informed patient about the workup. She is feeling much better. Advised her to in more fluids as tolerated to Zofran as needed for nausea Bentyl for abdominal pain Vital Signs Vital signs: Vital Signs Temperature 36.6 C 08/27/25 01:15 Pulse Rate 87 08/27/25 01:15 Respiratory Rate 17 08/27/25 01:15 Blood Pressure 125/93 H 08/27/25 01:15 Pulse Oximetry 100 08/27/25 01:15 Oxygen Delivery Room Air 08/27/25 01:15 Temperature 36.8 C 08/27/25 06:01 Pulse Rate 82 08/27/25 06:01 Respiratory Rate 18 08/27/25 06:01 Blood Pressure 115/71 08/27/25 06:01 Pulse Oximetry 98 08/27/25 05:01 Oxygen Delivery Room Air 08/27/25 01:15 [facility] Differential Diagnosis Differential Diagnosis: Pancreatitis gastroenteritis, nephrolithiasis Lab Data [facility] Lab Attestation statement: I personally reviewed the patient's lab results. 08/27/25 06:04 08/27/25 06:04 Labs: Lab Results 08/27/25 08/27/25 Range/Units 05:22 06:04 WBC 5.6 (4.5-10.0) K/mm3 RBC 4.55 (4.2-5.4) M/mm3 Hgb 12.0 (12.0-15.0) g/dL Hct 36.4 L (37.0-47.0) % MCV 80.0 (80-100) fl MCH 26.4 (26-34) pg MCHC 33.0 (32-36) g/dl RDW 15.6 H (11.5-14.5) % Plt Count 360 (150-375) k/mm3 MPV 9.1 (7.4-10.4) fl Immature Gran % (Auto) 0.4 (0-0.5) % Neut % (Auto) 46.9 (45.5-73.1) % Lymph % (Auto) 36.8 (18.3-44.2) % [place] % (Auto) 11.4 H (2.6-8.5) % Eos % (Auto) 3.4 (0-4.4) % Baso % (Auto) 1.1 (0.2-1.2) % Lymph # (Auto) 2.04 (0.9-3.2) K/mm3 [place] # (Auto) 0.6 (0.1-0.6) K/mm3 Eos # (Auto) 0.2 (0-0.3) K/mm3 Baso # (Auto) 0.1 (0.0-0.1) K/mm3 Abs Immat Gran (auto) 0.02 (0.00-0.031) K/mm3 Absolute Neuts (auto) 2.6 (1.3-6.7) K/mm3 Absolute Nucleated RBC 0.000 (0.0-0.012) K/mm3 Nucleated RBC % 0.0 (0.0-0.2) % Sodium 138 (137-145) mmol/L Potassium 2.9 L (3.4-5.0) mmol/L Chloride 105 (98-107) mmol/L Carbon Dioxide 27 (22-30) mmol/L Anion Gap 6 (4-12) mmol/L BUN 12 (7-17) mg/dL Creatinine 0.75 (0.7-1.0) mg/dL Estim Creat Clear Calc 98 ml/min Estimated GFR > 60 (59 - ) Glucose 88 (65-110) mg/dL Calcium 9.1 (8.4-10.2) mg/dL Total Bilirubin 0.9 (0.2-1.3) mg/dL AST 20 (14-36) U/L ALT 12 (6-35) U/L Alkaline Phosphatase 62 (38-126) U/L Total Protein 7.3 (6.3-8.2) g/dL Albumin 4.2 (3.5-5.1) g/dL Lipase 73 (23-300) U/L Urine Color Dark yellow (Yellow) Urine Appearance Cloudy H (Clear) Urine pH 5.5 (5.0-9.0) Ur Specific [place] 1.023 (1.001-1.035) Urine Protein 1+ H (Negative) mg/dL Urine Glucose (UA) Negative (Negative) mg/dL Urine Ketones Trace H (Negative) mg/dL Ur Blood (Man) 2+ H (Negative) Urine Nitrate Negative (Negative) Urine Bilirubin Negative (Negative) Urine Urobilinogen 1.0 (<2.0) mg/dL Add Ur Microanalysis Reviewed Leukocyte Esterase Rfl 1+ H (Negative) SHAI/UL Urine RBC 51-100 H (0-2) /hpf Urine WBC 11-20 H (0-3) /hpf Ur Squamous Epith Cells Few (Few) /hpf Urine Bacteria 2+ H /hpf Urine Casts 0-2 Urine Mucus Present /lpf Urine Test Negative Imaging Data Radiologist's impression: ITS Impressions Abdomen/Pelvis CT 08/27/25 08:50 IMPRESSION: 1. Mild colitis not excluded. 2. Horseshoe kidney with right-sided stones. No hydronephrosis. 3. Additional findings as above. Discharge Plan Discharge Clinical Impression: Gastroenteritis Patient Disposition: Home Condition: Stable Instructions: Gastroenteritis (ED) Patient Language: Faroese Prescriptions: New ondansetron 4 mg tablet,disintegrating 4 mg PO Q6-8H PRN (Reason: nausea and vomiting) Qty: 14 0RF dicyclomine 20 mg tablet 20 mg PO QID PRN (Reason: abdominal pain) Qty: 20 0RF No Action oxycodone 5 mg tablet 5 mg PO Q8H PRN (Reason: pain) Qty: 10 0RF oxycodone-acetaminophen 5-325 mg tablet 1 tablet PO Q4H PRN (Reason: pain) Qty: 20 0RF ketorolac 10 mg tablet 10 mg PO Q6H 5 Days Qty: 20 0RF Follow-up/Referrals: PHYSICIAN,MUSHROOM CULTIVATOR [Primary Care Provider, Internal Medicine] Shane Hawthorne MD [Physician, Family Practice] Time of Disposition: 09:58
== END 2025-08-27 10:19 | disposition home or self-care (01) ==
PROVIDERS: Emergency Medicine; Emergency Provider Family Medicine
DX: K52.9 Noninfective gastroenteritis and colitis, unspecified (principal); Q63.1 Lobulated, fused and horseshoe kidney; N20.0 Calculus of kidney; F17.290 Nicotine dependence, other tobacco product, uncomplicated
CPT/HCPCS: 36415; 74177; 80053; 81001; 81025; 83690; 85025; 87086; 96361; 96374; 99284; J1885; J7030; Q9967